=== PATIENT | female | born 1965 | race Caucasian/White ===

== ENCOUNTER 2019-05-25 22:43 | Emergency (ER) | payer OTHER ==
--- OUTSIDE RECORDS SUMMARY | 2019-05-25 22:47 | XMS REPORT | Clinical Summary ---
:1965 Author Organization [facility] Address [address] [place] [address] Care Team Providers Name Role Phone MartinHagenMadelaineLily Primary Care Provider Allergies Active Allergy Reactions Severity Noted Date Comments Adhesive Rash Low 01/10/2019 Hydromorphone (Bulk) Other (See Comments) 04/29/2018 hallucination Doxycycline Hyclate Nausea And Vomiting 04/29/2018 Fluconazole Rash Low 01/10/2019 Cephalexin Nausea And Vomiting 04/29/2018 Medications Medication Sig Dispensed Refills Start End Status Date Date sucralfate Take 1 g by mouth 0 Active (CARAFATE) 1 gram 2 (two) times tablet daily . carvedilol (COREG) Take 6.25 mg by 0 Active 6.25 MG tablet mouth 2 (two) times daily with breakfast and dinner. pantoprazole Take 40 mg by 0 Active (PROTONIX) 40 MG mouth once . tablet levothyroxine Take 125 mcg by 0 Active (SYNTHROID, mouth Every LEVOTHROID) 125 MCG morning on an tablet empty stomach. promethazine Take 12.5 mg by 0 Active (PHENERGAN) 12.5 MG mouth every 12 tablet (twelve) hours as needed for Nausea . ergocalciferol Take 50,000 Units 0 Active (VITAMIN D2) 50,000 by mouth once a unit capsule week. ondansetron Take 4 mg by 0 Active (ZOFRAN-ODT) 4 MG mouth every 8 disintegrating (eight) hours as tablet needed for Nausea. traMADol (ULTRAM) 50 50 mg every 6 0 11/23/19 Active mg tablet (six) hours as 19 needed . DULoxetine Take 60 mg by 0 Active (CYMBALTA) 60 MG mouth nightly. capsule hyoscyamine (LEVBID) Take 0.75 mg by 0 Active 0.375 mg 12 hr mouth 2 (two) tablet times daily 2 tablet of 0.375 twice day. atorvastatin Take 40 mg by 0 Active (LIPITOR) 40 MG mouth daily. tablet ascorbic acid, Take 500 mg by 0 Active vitamin C, (ASCORBIC mouth daily. ACID WITH MARY HIPS) 500 MG tablet nystatin-triamcinolo Apply topically 2 0 Active ne (MYCOLOG II) (two) times daily 100,000-0.1 unit/g-% as needed. cream gabapentin Take 300 mg by 0 Active (NEURONTIN) 300 MG mouth 3 (three) capsule times daily as needed. ferrous sulfate 325 Take 325 mg by 0 Active (65 FE) MG tablet mouth 2 (two) times daily. furosemide (LASIX) Take 1 tablet (20 30 tablet 3 01/28/20 Active 20 MG mg total) by 019 tabletIndications: mouth daily for Cirrhosis of liver 120 days. with ascites, unspecified hepatic cirrhosis type (HCC) spironolactone Take 1 tablet (50 30 tablet 3 01/28/20 Active (ALDACTONE) 50 MG mg total) by 019 tabletIndications: mouth daily for Cirrhosis of liver 120 days. with ascites, unspecified hepatic cirrhosis type (HCC) ursodiol (ACTIGALL) Take 500 mg by 0 Active 500 MG tablet mouth 2 (two) times daily. insulin aspart U-100 Inject 0 Active (NOVOLOG) 100 subcutaneously 3 unit/mL (3 mL) InPn (three) times daily before meals 12 units before meals with sliding scale. pilocarpine Take 5 mg by 0 Active (SALAGEN) 5 MG mouth once. tablet warfarin (COUMADIN) Take 1 tablet (4 30 tablet 0 04/13/20 Active 4 MG tablet mg total) by 19 mouth daily Alternate with 3mg. TOUJEO SOLOSTAR INJECT 20 UNITS 1 02/21/20 Active U-300 INSULIN 300 SUBCUTANEOUSLY 19 unit/mL (1.5 mL) ONCE A DAY InPn syringe warfarin (COUMADIN) Take 3 mg by 0 Active 3 MG tablet mouth daily 3MG on Wednesday, Wednesday, and Wednesday. . sertraline (ZOLOFT) Take 100 mg by 0 Discontinued 100 MG tablet mouth daily. 019 HYOSCYAMINE SULFATE Take 0.375 mcg by 0 Discontinued ORAL mouth as needed . 019 rosuvastatin Take 20 mg by 0 Discontinued (CRESTOR) 20 MG mouth daily. 019 tablet warfarin (COUMADIN) Take 4 mg by 0 Discontinued 4 MG tablet mouth every other 019 day Alternate with 3mg. cholestyramine Take by mouth 3 0 Discontinued (QUESTRAN) 4 gram (three) times 019 powder daily with meals. ondansetron (ZOFRAN) Take 4 mg by 0 Discontinued 4 MG tablet mouth every 8 019 (eight) hours as needed for Nausea. liraglutide (VICTOZA Inject 1.8 Units 0 Discontinued SUBQ) subcutaneously. 019 exenatide (BYETTA Inject 10 Units 0 Discontinued SUBQ) subcutaneously 2 019 (two) times daily as needed . pioglitazone (ACTOS) Take 30 mg by 1 11/06/19 Discontinued 30 MG tablet mouth daily. 19 019 warfarin (COUMADIN) warfarin 3 mg 0 01/12/20 Discontinued 3 MG tablet tablet 18 019 warfarin (COUMADIN) Take 3 mg by 0 Discontinued 3 MG tablet mouth every other 019 day Alternate with 4mg. . albuterol HFA Inhale 1 puff by 0 Discontinued (VENTOLIN HFA) 90 mouth via inhaler 019 mcg/actuation every 6 (six) inhaler hours as needed for Wheezing. benzonatate Take 200 mg by 0 Discontinued (TESSALON) 200 MG mouth 3 (three) 019 capsule times daily as needed for Cough. enoxaparin (LOVENOX) Inject 0 Discontinued 80 mg/0.8 mL Syrg subcutaneously 019 every 12 (twelve) hours. ursodiol (ACTIGALL) Take 2 capsules 120 capsule 4 01/21/20 Discontinued 300 mg (600 mg total) by 19 019 capsuleIndications: mouth 2 (two) Antimitochondrial times daily for antibody positive, 150 days. Cirrhosis of liver without ascites, unspecified hepatic cirrhosis type (HCC) ursodiol (ACTIGALL) Take 1 tablet 180 tablet 3 01/25/20 Discontinued 500 MG (500 mg total) by 019 tabletIndications: mouth 2 (two) Antimitochondrial times daily. antibody positive PEG Use as directed. 1 packet 0 03/09/20 Discontinued 6145-[id number] tamin C (MOVIPREP) 100-7.5-2.691 gram PwPk packetIndications: Screen for colon cancer insulin glargine Inject 40 Units 0 Discontinued U-300 conc (TOUJEO subcutaneously 019 MAX U-300 SOLOSTAR) nightly. 300 unit/mL (3 mL) InPn insulin aspart U-100 Inject 12 Units 0 Discontinued (NOVOLOG) 100 subcutaneously 3 019 unit/mL (3 mL) InPn (three) times daily before meals. pilocarpine Take 5 mg by 0 Discontinued (SALAGEN) 5 MG mouth daily. 019 tablet cholecalciferol, Take 50,000 Units 0 Discontinued vitamin D3, 50,000 by mouth once a 019 unit Tab week. triamcinolone Apply topically 0 Discontinued (KENALOG) 0.1 % as needed to 019 topical cream affected area. . Active Problems Problem Noted Date Obesity, Class III, BMI 40-49.9 (morbid obesity) 04/12/2019 Abdominal pain 04/11/2019 Portal hypertension 11/25/2018 Fatty liver 11/25/2018 Metabolic syndrome 11/25/2018 Abnormal liver enzymes 04/29/2018 Last Assessment & Plan: Known to have abnormal liver enzymes for last 6 months, AST/ ALT > 2 ULN, comprehensive workup was negative for chronic viral hepatitis, autoimmune liver disease and normal ceruloplasmin and iron studies. Abnormal liver enzyme appears to be related to nonalcoholic fatty liver disease and she has multiple risk factors for that Class 3 severe obesity in adult 04/29/2018 Last Assessment & Plan: The patient's current BMI is 40 . Obesity is an established risk factor for vascular complications (ie coronary artery disease, cerebrovascular disease, peripheral vascular disease), osteoarthritis, pulmonary disease, as well as the development of non-alcoholic fatty liver disease and the risk for non- alcoholic steatohepatitis. We have recommended a structured weight loss program (10% body weight initially), along with dietary richar fications and regular exercise for overall good health and to minimize the risk of obesity -related complications. The assessment of a senior analyst market intelligence or case management director may be beneficial. I discussed the following weight loss techniques: (1) Decreasing portion size. (2) Avoid eating in front of television or computers. Eat at a dining room table instead. (3) Start exercising. Start at 15 minutes every day and increase by 2 minutes every 2 weeks. Your goal is to exercise 30-45 minutes most days of the week. Time yourself every time you exercise and do n ot go over your alloted time for the day. You can try fast walking or swimming. Screening for endocrine/metabolic/immunity disorders 04/29/2018 Last Assessment & Plan: Serological tests will be completed to determine the presence of immunity to hepatitis A and B. If found susceptible she will be referred to her primary care provider to consider the administration of t he appropriate vaccines. Cirrhosis of liver without ascites 04/29/2018 Last Assessment & Plan: Compensated cirrhosis, diagnosed by constellation of symptoms/examination/labs/ imaging. There is not any evidence of acute decompensation. This is complicated by portal hypertension manifested by thro mbocytopenia and cirrhosis appears to be related to nonalcoholic fatty liver disease, related to diabetes obesity and hyperlipidemia Screening for cancer 04/29/2018 Last Assessment & Plan: Cirrhosis, regardless of etiology, is a risk factor for hepatocellular carcinoma (HCC), with an annual incidence of 1.5-7%. We recommend surveillance for HCC with abdominal imaging and alphafetoprotein every 6 months. Pulmonary embolism 04/29/2018 Last Assessment & Plan: Patient has known history of deep vein thrombosis and pulmonary embolism , S/p IVC Filter and on warfarin Resolved Problems Problem Noted Date Resolved Date Diabetes mellitus 04/29/2018 08/15/2018 Last Assessment & Plan: Known for fifteen years, on Metformin and Victoza Now only on Victoza , plan to change To Beytta ( exenatide) Diabetes poor control . Discussed the tight control of diabetes. I discussed with her safety use the metformin in presence of compensated cirrhosis and is known to improve the fatty liver Hyperlipidemia 04/29/2018 08/15/2018 Last Assessment & Plan: Lab tests shows hyperlipidemia and hypercholesterolemia. It is safe to use statins in presence of fatty liver disease.Statins use can increase AST/ALT, but significant hepatotoxicity is very rare. Exper t panel of children's zoo caretaker and neon electrician recommend use of statins in patient with elevated liver enzymes and hyperlipidemia. I will recommend to monitor liver panel 6 months, if any time T Bilirubin &gt ; 2.0 suggests significant hepatotoxicity, then statins need to be discontinued. Encounters Date Type Specialty Care Team Description 05/17/2019 Telephone Hepatology Kristyn Haley Procedure L (EGD/Colonoscopy) 05/02/2019 Office Visit Hepatology Ken Thompson, Cirrhosis of liver without ascites, unspecified hepatic cirrhosis type (HCC) (Primary Dx); Screening for cancer Kristyn Waters PA-C 04/10/2019 Emergency General Internal Nicole, Generalized abdominal pain ( Primary Dx); - Medicine Jarvis Bee MD Abdominal pain, unspecified abdominal location; 04/13/2019 Hien Malcolm, Cirrhosis of liver without ascites, unspecified hepatic cirrhosis type (HCC); Metabolic syndrome; Americo, Abnormal liver enzymes; Ashley Cece, Fatty liver; Portal hypertension (HCC); Kidney stone on left side; NAFLD (nonalcoholic fatty liver disease); Obesity, Class III, BMI 40-49.9 (morbid obesity) (HCC); Screening for malignant neoplasm; Immunity status testing 04/10/2019 Orders Only General Internal Medicine 04/10/2019 Travel 04/10/2019 Telephone Hepatology Kristyn Waters Follow-up YUNIER El 03/15/2019 Telephone Hepatology Rene Huitron PA 03/15/2019 Telephone Hepatology Sydnee Stone EGD/Colonoscopy P, RN 03/14/2019 Hospital Encounter Pre-Admission Resource, Oqmt Testing Preadmit Phone 03/14/2019 Abstract Hepatology Rene Huitron PA 03/09/2019 Telephone Hepatology Yola La, Appointment RN 03/09/2019 Orders Only Hepatology Yola La, Screen for colon cancer RN (Primary Dx) 02/20/2019 Abstract Hepatology Nneka Spain 02/17/2019 Telephone Hepatology uLzmaria Solis critical supervisor labor gang 02/01/2019 Telephone Hepatology Kristyn Haley Procedure L (EGD/Colonoscopy (canceled)) 01/27/2019 Abstract Hepatology Rene Huitron PA 01/27/2019 Orders Only Hepatology Rene Huitron Cirrhosis of liver with DOROTA Thomas ascites, unspecified hepatic cirrhosis type (HCC) (Primary Dx) 01/26/2019 Abstract Hepatology Carmita Esparza MA 01/24/2019 Orders Only Hepatology Rene Huitron Antimitochondrial DOROTA Thomas antibody positive (Primary Dx) 01/20/2019 Telephone Hepatology Rene Huitron Liver Biopsy Results DOROTA Thomas 01/20/2019 Telephone Hepatology Rene Huitron Biopsy Results DOROTA Thomas 01/19/2019 Telephone Hepatology Rene Huitron Results DOROTA Thomas 01/18/2019 Telephone Hepatology Rene Huitron Results DOROTA Thomas 01/10/2019 Hospital Encounter Ken Thompson, Abnormal liver enzymes; Cirrhosis of liver without ascites, unspecified hepatic cirrhosis type (HCC) 01/10/2019 Abstract Hepatology Rene Huitron PA 01/05/2019 Telephone Hepatology Sydnee Stone RN 01/04/2019 Hospital Encounter Ken Thompson, Abnormal liver enzymes; Cirrhosis of liver without ascites, unspecified hepatic cirrhosis type (HCC) 01/04/2019 Orders Only Hepatology Rene Huitron Cirrhosis of liver without ascites, unspecified hepatic cirrhosis type (HCC) (Primary Dx); DOROTA Thomas Abnormal liver enzymes 01/04/2019 Documentation Hepatology Yola La RN 12/27/2018 Telephone Hepatology Rene Huitron PA 12/20/2018 Orders Only Hepatology Rene Huitron Cirrhosis of liver without ascites, unspecified hepatic cirrhosis type (HCC) (Primary Dx); DOROTA Thomas Abnormal liver enzymes; Antimitochondrial antibody positive 12/09/2018 Telephone Hepatology Kip Schaffer NP 12/07/2018 Hospital Encounter Radiology Rene Huitron Cirrhosis of liver DOROTA Thomas without ascites, unspecified hepatic cirrhosis type (HCC) 11/24/2018 Office Visit Hepatology Ken Thompson, Cirrhosis of liver without ascites, unspecified hepatic cirrhosis type (HCC) (Primary Dx); Portal hypertension (HCC); Rene Huitron Fatty liver; DOROTA Thomas Metabolic syndrome; Other pulmonary embolism without acute cor pulmonale, unspecified chronicity (HCC) 11/10/2018 Hospital Encounter Radiology Denton Linder MD Pain in both hands 11/10/2018 Hospital Encounter Radiology Denton Linder MD Pain in both hands 11/10/2018 Outside Orders [facility] Linder MD Pain in both hands Scheduling (Primary Dx) 08/11/2018 Abstract Hepatology Sydnee Stone RN 08/10/2018 Abstract Hepatology Sydnee Stone RN 08/09/2018 Office Visit Hepatology Ken Thompson, Abnormal liver enzymes ( Primary Dx); Hyperlipidemia, unspecified hyperlipidemia type; Cirrhosis of liver without ascites, unspecified hepatic cirrhosis type (HCC); Type 2 diabetes mellitus with complication, without long-term current use of insulin (HCC); Class 3 severe obesity due to excess calories without serious comorbidity with body mass index (BMI) of 40.0 to 44.9 in adult (HCC) after 05/24/2018 Family History Medical History Relation Name Comments Cancer Father Diabetes Father Alzheimer's disease Maternal Grandfather Other Maternal Grandfather Stomach tumor Anuerysm Maternal Grandmother Stroke Maternal Grandmother Heart disease Mother Cancer Paternal Grandmother Relation Name Status Comments Father Maternal Grandfather Maternal Grandmother Mother Paternal Grandmother Social History Tobacco Use Types Packs/Day Years Used Date Former Smoker Quit: 11/2014 Smokeless Tobacco: Never Used Tobacco Cessation: Counseling Given: No Comments: quit 2014 Alcohol Use Drinks/Week oz/Week Comments No Alcohol Habits Answer Date Recorded How often do you have a drink containing alcohol? Never 01/04/2019 How many drinks containing alcohol do you have on a typical Not asked day when you are drinking? How often do you have six or more drinks on one occasion? Not asked Sex Assigned at Date Recorded Not on file Job Start Date Occupation Industry Not on file Not on file Not on file Travel History Travel Start Travel End No recent travel history available. Last Filed Vital Signs Vital Sign Reading Time Taken Blood Pressure 119/76 05/02/2019 3:22 PM CDT Pulse 100 05/02/2019 3:22 PM CDT Temperature 36.8 C (98.3 F) 05/02/2019 3:22 PM CDT Respiratory Rate 18 05/02/2019 3:22 PM CDT Oxygen Saturation 97% 05/02/2019 3:22 PM CDT Inhaled Oxygen Concentration - - Weight 123.3 kg (271 lb 14.4 oz) 05/02/2019 3:22 PM CDT Height 170.2 cm (5' 7") 05/02/2019 3:22 PM CDT Body Mass Index 42.59 05/02/2019 3:22 PM CDT Plan of Treatment Date Type Specialty Care Team Description 08/03/2019 Office Visit Hepatology Jay, Ken Mason MD [address] [phone] Resource, [facility] Health Maintenance Due Date Last Done Comments HEMOGLOBIN A1C 07/13/2019 04/12/2019 Procedures Procedure Name Priority Date/Time Associated Diagnosis Comments CBC W/PLT COUNT & Routine 05/02/2019 4:10 Cirrhosis of liver Results for this AUTO DIFFERENTIAL PM CDT without ascites, procedure are in unspecified hepatic the results cirrhosis type (HCC) section. Screening for cancer ALPHA FETOPROTEIN Routine 05/02/2019 4:10 Cirrhosis of liver Results for this (AFP), TUMOR MARKER PM CDT without ascites, procedure are in unspecified hepatic the results cirrhosis type (HCC) section. Screening for cancer PROTHROMBIN TIME/INR Routine 05/02/2019 4:10 Cirrhosis of liver Results for this PM CDT without ascites, procedure are in unspecified hepatic the results cirrhosis type (HCC) section. Screening for cancer CBC W/PLT COUNT & Routine 05/02/2019 4:10 Cirrhosis of liver Results for this AUTO DIFFERENTIAL PM CDT without ascites, procedure are in unspecified hepatic the results cirrhosis type (HCC) section. Screening for cancer HEPATIC FUNCTION Routine 05/02/2019 4:10 Cirrhosis of liver Results for this PANEL PM CDT without ascites, procedure are in unspecified hepatic the results cirrhosis type (HCC) section. Screening for cancer BASIC METABOLIC PANEL Routine 05/02/2019 4:10 Cirrhosis of liver Results for this (7) PM CDT without ascites, procedure are in unspecified hepatic the results cirrhosis type (HCC) section. Screening for cancer REPORT OF PROCEDURE - 04/13/2019 3:10 ENDOSCOPY SCAN PM CDT POCT-GLUCOSE METER Routine 04/13/2019 12:00 Results for this PM CDT procedure are in the results section. POCT-GLUCOSE METER Routine 04/13/2019 7:52 Results for this AM CDT procedure are in the results section. CBC W/PLT COUNT & Routine 04/13/2019 3:32 Results for this AUTO DIFFERENTIAL AM CDT procedure are in the results section. PROTHROMBIN TIME/INR Routine 04/13/2019 3:32 Results for this AM CDT procedure are in the results section. CBC W/PLT COUNT & Routine 04/13/2019 3:32 Results for this AUTO DIFFERENTIAL AM CDT procedure are in the results section. HEPATIC FUNCTION Routine 04/13/2019 3:32 Results for this PANEL AM CDT procedure are in the results section. BASIC METABOLIC PANEL Routine 04/13/2019 3:32 Results for this (7) AM CDT procedure are in the results section. POCT-GLUCOSE METER Routine 04/12/2019 8:55 Results for this PM CDT procedure are in the results section. POCT-GLUCOSE METER Routine 04/12/2019 4:36 Results for this PM CDT procedure are in the results section. POCT-GLUCOSE METER Routine 04/12/2019 12:08 Results for this PM CDT procedure are in the results section. POCT-GLUCOSE METER Routine 04/12/2019 7:13 Results for this AM CDT procedure are in the results section. CBC W/PLT COUNT & Routine 04/12/2019 4:42 Results for this AUTO DIFFERENTIAL AM CDT procedure are in the results section. CBC W/PLT COUNT & Routine 04/12/2019 4:42 Results for this AUTO DIFFERENTIAL AM CDT procedure are in the results section. HEPATIC FUNCTION Routine 04/12/2019 4:42 Results for this PANEL AM CDT procedure are in the results section. BASIC METABOLIC PANEL Routine 04/12/2019 4:42 Results for this (7) AM CDT procedure are in the results section. HEMOGLOBIN A1C Routine 04/12/2019 4:42 Results for this AM CDT procedure are in the results section. PROTHROMBIN TIME/INR Routine 04/12/2019 4:42 Results for this AM CDT procedure are in the results section. POCT-GLUCOSE METER Routine 04/11/2019 10:11 Results for this PM CDT procedure are in the results section. PERIPHERAL VASCULAR 04/11/2019 9:12 REPORT - SCAN PM CDT POCT-GLUCOSE METER Routine 04/11/2019 6:21 Results for this PM CDT procedure are in the results section. RAPID DRUG SCREEN, Routine 04/11/2019 1:14 Results for this URINE PM CDT procedure are in the results section. POCT-GLUCOSE METER Routine 04/11/2019 12:16 Results for this PM CDT procedure are in the results section. POCT-GLUCOSE METER Routine 04/11/2019 7:22 Results for this AM CDT procedure are in the results section. CBC W/PLT COUNT & Routine 04/11/2019 6:23 Results for this AUTO DIFFERENTIAL AM CDT procedure are in the results section. CBC W/PLT COUNT & Routine 04/11/2019 6:23 Results for this AUTO DIFFERENTIAL AM CDT procedure are in the results section. CT ABDOMEN/PELVIS STAT 04/11/2019 2:01 Results for this WITH IV CONTRAST AM CDT procedure are in the results section. VENOUS DOPPLER LEGS Routine 04/11/2019 12:35 Results for this BILATERAL AM CDT procedure are in the results section. ECG 12-LEAD Routine 04/10/2019 10:09 PM CDT Procedure Note - Interface, External Ris In - 04/10/2019 10:17 PM CDT Ventricular Rate 85 BPM Atrial Rate 85 BPM P-R Interval 142 ms QRS Duration 72 ms Q-T Interval 406 ms QTC Calculation(Bazett) 483 ms P [place] 36 degrees R [place] 81 degrees T [place] 63 degrees Normal sinus rhythm Prolonged QT Abnormal ECG No previous ECGs available ECG 12-LEAD STAT 04/10/2019 10:09 Results for this PM CDT procedure are in the results section. XR CHEST 2 VIEWS STAT 04/10/2019 9:42 Results for this PM CDT procedure are in the results section. CBC W/PLT COUNT & AUTO STAT 04/10/2019 9:39 Results for this DIFFERENTIAL PM CDT procedure are in the results section. PT/APTT STAT 04/10/2019 9:39 Results for this PM CDT procedure are in the results section. LIPASE STAT 04/10/2019 9:39 Results for this PM CDT procedure are in the results section. COMPREHENSIVE STAT 04/10/2019 9:39 Results for this METABOLIC PANEL PM CDT procedure are in the results section. CBC W/PLT COUNT & AUTO STAT 04/10/2019 9:39 Results for this DIFFERENTIAL PM CDT procedure are in the results section. URINALYSIS W/ REFLEX STAT 04/10/2019 9:31 Results for this URINE CULTURE PM CDT procedure are in the results section. BASIC METABOLIC PANEL Routine 02/16/2019 12:45 Cirrhosis of liver Results for this (7) PM CDT with ascites, procedure are in unspecified the results hepatic cirrhosis section. type (HCC) US LIVER BIOPSY Routine 01/10/2019 11:25 Abnormal liver Results for this AM CDT enzymes procedure are in Cirrhosis of liver the results without ascites, section. unspecified hepatic cirrhosis type (HCC) TISSUE EXAM AP Routine 01/10/2019 11:20 Results for this AM CDT procedure are in the results section. PLATELET COUNT Routine 01/10/2019 8:40 Results for this AM CDT procedure are in the results section. APTT Routine 01/10/2019 8:40 Results for this AM CDT procedure are in the results section. PROTHROMBIN TIME/INR Routine 01/10/2019 8:40 Results for this AM CDT procedure are in the results section. CBC W/PLT COUNT & AUTO Routine 01/04/2019 9:17 Results for this DIFFERENTIAL AM CDT procedure are in the results section. PROTHROMBIN TIME/INR Routine 01/04/2019 9:17 Results for this AM CDT procedure are in the results section. CBC W/PLT COUNT & AUTO Routine 01/04/2019 9:17 Results for this DIFFERENTIAL AM CDT procedure are in the results section. ACTIN (SMOOTH MUSCLE) Routine 12/20/2018 3:18 Cirrhosis of liver Results for this ANTIBODY, IGG PM CDT without ascites, procedure are in unspecified the results hepatic cirrhosis section. type (HCC) Antimitochondrial antibody positive MITOCHONDRIA M2 Routine 12/20/2018 3:18 Cirrhosis of liver Results for this ANTIBODY (IGG) PM CDT without ascites, procedure are in unspecified the results hepatic cirrhosis section. type (HCC) Antimitochondrial antibody positive ANTI-NUCLEAR ANTIBODY Routine 12/20/2018 3:18 Cirrhosis of liver Results for this (CHRISTIAN) PM CDT without ascites, procedure are in unspecified the results hepatic cirrhosis section. type (HCC) Antimitochondrial antibody positive IMMUNOGLOBULIN G (IGG) Routine 12/20/2018 3:18 Cirrhosis of liver Results for this PM CDT without ascites, procedure are in unspecified the results hepatic cirrhosis section. type (HCC) Antimitochondrial antibody positive US ABDOMEN COMPLETE Routine 12/07/2018 11:10 Cirrhosis of liver Results for this AM DISPLAY DECORATOR without ascites, procedure are in unspecified the results hepatic cirrhosis section. type (HCC) CBC W/PLT COUNT & AUTO Routine 11/24/2018 3:49 Cirrhosis of liver Results for this DIFFERENTIAL PM DISPLAY DECORATOR without ascites, procedure are in unspecified the results hepatic cirrhosis section. 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 type (HCC) PROTHROMBIN TIME/INR Routine 11/24/2018 3:49 Cirrhosis of liver Results for this PM DISPLAY DECORATOR without ascites, procedure are in unspecified the results hepatic cirrhosis section. type (HCC) CBC W/PLT COUNT & AUTO Routine 11/24/2018 3:49 Cirrhosis of liver Results for this DIFFERENTIAL PM DISPLAY DECORATOR without ascites, procedure are in unspecified the results hepatic cirrhosis section. type (HCC) HEPATIC FUNCTION PANEL Routine 11/24/2018 3:49 Cirrhosis of liver Results for this PM DISPLAY DECORATOR without ascites, procedure are in unspecified the results hepatic cirrhosis section. type (HCC) BASIC METABOLIC PANEL Routine 11/24/2018 3:49 Cirrhosis of liver Results for this (7) PM DISPLAY DECORATOR without ascites, procedure are in unspecified the results hepatic cirrhosis section. type (HCC) XR HAND LEFT 2 VIEW Routine 11/10/2018 12:59 Pain in both hands Results for this PM DISPLAY DECORATOR procedure are in the results section. XR HAND RIGHT 2 VIEW Routine 11/10/2018 12:59 Pain in both hands Results for this PM DISPLAY DECORATOR procedure are in the results section. after 05/24/2018 Results CBC with platelet count + automated diff (05/02/2019 4:10 PM CDT)Only the most recent of7 resultswithin the time period is included. WBC 8.8 3.5 - 10.5 K/L [facility] RBC 4.75 3.93 - 5.22 M/L [facility] Hemoglobin 13.4 11.2 - 15.7 GM/DL [facility] Hematocrit 41.1 34.1 - 44.9 % [facility] MCV 86.5 79.4 - 94.8 fL [facility] MCH 28.2 25.6 - 32.2 pg [facility] MCHC 32.6 32.2 - 35.5 GM/DL [facility] RDW 15.2 (H) 11.7 - 14.4 % [facility] Platelets 165 150 - 450 K/CU MM [facility] MPV 11.8 9.4 - 12.3 fL [facility] nRBC 0 0 - 0 /100 WBC [facility] % Neutros 74 % [facility] % Lymphs 17 % [facility] % Monos 6 % [facility] % Eos 3 % [facility] % Baso 1 % [facility] # Neutros 6.44 (H) 1.56 - 6.13 K/L [facility] # Lymphs 1.46 1.18 - 3.74 K/L [facility] # Monos 0.52 (H) 0.24 - 0.36 K/L [facility] # Eos 0.23 0.04 - 0.36 K/L [facility] # Baso 0.06 0.01 - 0.08 K/L [facility] Immature Granulocytes-Relative 1 0 - 1 % [facility] Specimen Blood Performing Organization Address City/[facility]/Zipcode Phone Number [facility] [address] [place] [address] CENTER Alpha fetoprotein (AFP), tumor marker (05/02/2019 4:10 PM CDT)Only the most recent of2 resultswithin the time period is included. Alpha-Fetoprotein 4.3 <10.0 ng/mL [facility] Specimen Blood Performing Organization Address City/[facility]/Zipcode Phone Number [facility] [address] [phone] [place] Pro-time/INR (05/02/2019 4:10 PM CDT)Only the most recent of6 resultswithin the time period is included. Protime 23.8 (H) 11.9 - 14.2 seconds [facility] INR 2.2 <=5.9 [facility] Specimen Blood Narrative Performed At Effective 03/08/2019: PT Reference Range [facility] Change New: 11.9-14.2Previous: 11.7-14.7 RECOMMENDED COUMADIN/WARFARIN INR THERAPY RANGES STANDARD DOSE: 2.0-3.0Includes: PROPHYLAXIS for venous thrombosis, systemic embolization; TREATMENT for venous thrombosis and/or pulmonary embolus. HIGH RISK: Target INR is 2.5-3.5 for patients wiht mechanical heart valves. Performing Organization Address [facility] Centercode Phone Number [address] [address] [place] Hepatic function panel (05/02/2019 4:10 PM CDT)Only the most recent of4 resultswithin the time period is included. Protein, Total 8.4 (H) 6.0 - 8.3 gm/dL [facility] Albumin 3.8 3.5 - 5.0 g/dL [facility] Total Bilirubin 1.2 0.2 - 1.2 mg/dL [facility] Bilirubin, Direct 0.5 0.1 - 0.5 mg/dL [facility] Alkaline Phosphatase 96 40 - 150 U/L [facility] AST 33 5 - 34 U/L [facility] ALT 24 6 - 55 U/L [facility] Specimen Blood Performing Organization Address City/[facility]/Zipcode Phone Number [address] [address] [phone] [place] Basic Metabolic Panel (05/02/2019 4:10 PM CDT)Only the most recent of5 resultswithin the time period is included. Sodium 137 136 - 145 meq/L [facility] Potassium 4.1 3.5 - 5.1 meq/L [facility] Chloride 102 98 - 107 meq/L [facility] CO2 26 22 - 29 meq/L [facility] BUN 9 7 - 21 mg/dL [facility] Creatinine 0.79 0.57 - 1.25 mg/dL [facility] Glucose 251 (H) 70 - 105 mg/dL [facility] Calcium 9.5 8.4 - 10.2 mg/dL [facility] EGFR 76Comment: ESTIMATED GFR IS mL/min/1.73 sq m [facility] NOT ACCURATE CREATININE [facility] CLEARANCE IN PREDICTING GLOMERULAR FILTRATION RATE. ESTIMATED GFR IS NOT APPLICABLE FOR DIALYSIS PATIENTS. Specimen Blood Performing Organization Address City/[facility]/[place] [address] [place] EKG-SCANNED (04/13/2019 3:10 PM CDT) Narrative Performed At POC-Glucose meter (04/13/2019 12:00 PM CDT)Only the most recent of10 resultswithin the time period is included. POC-Glucose Meter 314 (H)Comment: TESTED AT 70 - 110 mg/dL [facility] [address] [place] [id number] Specimen Blood Performing Organization Address City/[facility]/[place] [address] CENTER Hemoglobin A1c (04/12/2019 4:42 AM CDT) Hemoglobin A1C 11.3 (H) 4.3 - 6.1 % [facility] Specimen Blood Narrative Performed At Performing Organization Address City/[facility]/Zipcode Phone Number [facility] [address] [place], [place] [phone] [place] PERIPHERAL VASCULAR REPORT - SCAN (04/11/2019 9:12 PM CDT) Narrative Performed At Rapid drug screen, urine (04/11/2019 1:14 PM CDT) Barbiturate Screen Negative Negative [facility] Benzodiazepine Screen Negative Negative [facility] Cocaine (Metab.) Screen Negative Negative [facility] Methadone Screen Negative Negative [facility] Opiate Screen Positive (A) Negative [facility] Cannabinoid Screen Negative Negative [facility] Amph/Methamph Screen Negative Negative [facility] Phencyclidine Screen Negative Negative [facility] Specimen Urine Narrative Performed At DRUGCUTOFF [facility] CONC. Cocaine 300 ng/mL Dpaubcnfueh01 ng/mL Srjnehdtecbchg310 ng/mL Barbiturate 200 ng/mL Alymlimjvfegi16 ng/mL Estyyc568 ng/mL Methadone 300 ng/mL Amphetamine/ 1000 ng/mL Methamphetamine This assay provides an unconfirmed qualitative test result for the clinical management of patients in emergency situations. Chain of custody not maintained. Some fbrj-zou-ingalht medications, as well as adulterants, may cause inaccurate results. Clinical correlation should be applied. A more comprehensive drug screen or confirmation of a detected drug may be performed upon request. Performing Organization Address [facility]/State/Zipcode Phone Number [facility] [address] [place], [place] [phone] [place] CT abdomen/pelvis with IV contrast (04/11/2019 2:01 AM CDT) Specimen Narrative Performed At FINAL REPORT [facility] EXAM: CT of the abdomen and pelvis, with contrast CLINICAL HISTORY: Abdominal pain. TECHNIQUE: CT of the abdomen and pelvis was performed with intravenous contrast administration.This exam was performed according to our departmental dose optimization program which includes automated exposure control, adjustment of the mA and/or kV according to patient's size and/or use of iterative reconstructive technique. COMPARISON:None FINDINGS: LOWER CHEST: Within normal limits. LIVER: Mild nodular contour of the liver suggesting cirrhosis. Hepatomegaly. BILE DUCTS: Within normal limits. GALL BLADDER: Status post cholecystectomy. PANCREAS: Within normal limits. SPLEEN: Mild splenomegaly. ADRENALS: Within normal limits. KIDNEYS/URETERS: Punctate non obstructing stone in the left lower renal pole. Unremarkable right kidney. No hydroureteronephrosis or perinephric stranding. URINARY BLADDER: Underdistended otherwise unremarkable. REPRODUCTIVE ORGANS: Status post hysterectomy. No adnexal masses. BOWEL/MESENTERY: Status post sigmoid resection. Status post small bowel resection with multiple patulous anastomoses in the right mid to lower abdomen. Tethering of small bowel loops to the lower anterior abdominal wall.Diffuse mesenteric congestion, nonspecific. No bowel obstruction or abnormal wall thickening. Nonvisualization of the appendix but no secondary changes to suggest acute appendicitis. PERITONEUM/RETROPERITONEUM: Trace lower abdominal and pelvic free fluid, nonspecific. No free air or fluid collection. VESSELS: Infrarenal IVC filter. Atherosclerotic calcifications of the aorta and branches. LYMPH NODES: No abdominal or pelvic lymphadenopathy. SOFT TISSUES: Midline abdominal scar. BONES: Lower lumbar facet arthropathy.No suspicious osseous lesions. IMPRESSION: Status post small bowel and sigmoid resection. Status post cholecystectomy and hysterectomy. No bowel obstruction, free air or fluid collection. Punctate nonobstructing left renal stone. No hydroureteronephrosis. Cirrhosis. Hepatosplenomegaly. Signed: Racheal Vuong MD Report Verified Date/Time:04/11/2019 02:31:06 Procedure Note Interface, External Ris In - 04/11/2019 2:33 AM CDT FINAL REPORT EXAM: CT of the abdomen and pelvis, with contrast CLINICAL HISTORY: Abdominal pain. TECHNIQUE: CT of the abdomen and pelvis was performed with intravenous contrast administration. This exam was performed according to our departmental dose optimization program which includes automated exposure control, adjustment of the mA and/or kV according to patient's size and/or use of iterative reconstructive technique. COMPARISON: None FINDINGS: LOWER CHEST: Within normal limits. LIVER: Mild nodular contour of the liver suggesting cirrhosis. Hepatomegaly. BILE DUCTS: Within normal limits. GALL BLADDER: Status post cholecystectomy. PANCREAS: Within normal limits. SPLEEN: Mild splenomegaly. ADRENALS: Within normal limits. KIDNEYS/URETERS: Punctate non obstructing stone in the left lower renal pole. Unremarkable right kidney. No hydroureteronephrosis or perinephric stranding. URINARY BLADDER: Underdistended otherwise unremarkable. REPRODUCTIVE ORGANS: Status post hysterectomy. No adnexal masses. BOWEL/MESENTERY: Status post sigmoid resection. Status post small bowel resection with multiple patulous anastomoses in the right mid to lower abdomen. Tethering of small bowel loops to the lower anterior abdominal wall. Diffuse mesenteric congestion, nonspecific. No bowel obstruction or abnormal wall thickening. Nonvisualization of the appendix but no secondary changes to suggest acute appendicitis. PERITONEUM/RETROPERITONEUM: Trace lower abdominal and pelvic free fluid, nonspecific. No free air or fluid collection. VESSELS: Infrarenal IVC filter. Atherosclerotic calcifications of the aorta and branches. LYMPH NODES: No abdominal or pelvic lymphadenopathy. SOFT TISSUES: Midline abdominal scar. BONES: Lower lumbar facet arthropathy. No suspicious osseous lesions. IMPRESSION: Status post small bowel and sigmoid resection. Status post cholecystectomy and hysterectomy. No bowel obstruction, free air or fluid collection. Punctate nonobstructing left renal stone. No hydroureteronephrosis. Cirrhosis. Hepatosplenomegaly. Signed: Racheal Vuong MD Report Verified Date/Time: 04/11/2019 02:31:06 Performing Organization Address City/State/Zipcode Phone Number [facility] Venous doppler legs bilateral (04/11/2019 12:35 AM CDT) Ejection Fraction [facility] Specimen Impressions Performed At Right Impression [facility] 1. There is no deep venous obstruction in the common femoral, profunda femoral, femoral, popliteal, posterior tibial or peroneal veins where visualized. 2. There is no superficial venous obstruction in the great saphenous vein where visualized. Left Impression 1. There is no deep venous obstruction in the common femoral, profunda femoral, femoral, popliteal, posterior tibial or peroneal veins where visualized. 2. There is no superficial venous obstruction in the great saphenous vein where visualized. Conclusions Summary Venous duplex imaging and compression of the bilateral lower extremities were performed. The veins were technically difficult to visualize due to edema and patient body habitus. The bilateral venous systems were patent and compressible with no evidence of thrombus where visualized. The venous Doppler waveforms were phasic with respiration. Signature Velocities are measured in cm/s ; Diameters are measured in cm Narrative Performed At LAB - Lower Extremities DVT Study [facility] Demographics Patient NameCOLLINS, TAMARADate of Study 04/10/2019 TERENCE Age 54 Visit [id number] GenderFemale Date of 1965 Referring JARVIS NICOLERoom Number [id number] Physician Humane Officer Sonido Phillips MD Physician Procedure Type of Study: Veins: Lower Extremities DVT Study, VENOUS DOPPLER LEG, BILATERAL. Indications for Study:Abdominal pain. Patient Status:TODAY. Study Location:Portable. Technical Quality:Technically Difficult. Risk Factors History of Disease + +----+ + !Diagnosis !Date!Comments ! + +----+ + !History/Risk!!Morbid Obesity, H/o Cirrhosis, H/o PE, H/o DVT! 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 + +----+ + Procedure Note Interface, External Ris In - 04/11/2019 7:00 AM CDT PV LAB - Lower Extremities DVT Study Demographics Patient Name MARLYS THACKER Date of Study 04/10/2019 TERENCE Age 54 Visit Number [id number] Gender Female Accession Number [id number] Date of 1965 Referring JARVIS NICOLE Room Number [id number] Physician Humane Officer Sonido Samaniego Interpreting Kevin Phillips MD Physician Procedure Type of Study: Veins: Lower Extremities DVT Study, VENOUS DOPPLER LEG, BILATERAL. Indications for Study:Abdominal pain. Patient Status:TODAY. Study Location:Portable. Technical Quality:Technically Difficult. Risk Factors History of Disease + +----+ + !Diagnosis !Date!Comments ! + +----+ + !History/Risk ! !Morbid Obesity, H/o Cirrhosis, H/o PE, H/o DVT ! !Factors: ! 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 + +----+ + Impressions Right Impression 1. There is no deep venous obstruction in the common femoral, profunda femoral, femoral, popliteal, posterior tibial or peroneal veins where visualized. 2. There is no superficial venous obstruction in the great saphenous vein where visualized. Left Impression 1. There is no deep venous obstruction in the common femoral, profunda femoral, femoral, popliteal, posterior tibial or peroneal veins where visualized. 2. There is no superficial venous obstruction in the great saphenous vein where visualized. Conclusions Summary Venous duplex imaging and compression of the bilateral lower extremities were performed. The veins were technically difficult to visualize due to edema and patient body habitus. The bilateral venous systems were patent and compressible with no evidence of thrombus where visualized. The venous Doppler waveforms were phasic with respiration. Signature Velocities are measured in cm/s ; Diameters are measured in cm Performing Organization Address City/State/Zipcode Phone Number [facility] ECG 12 lead (04/10/2019 10:09 PM CDT) Specimen Narrative Performed At Ventricular Rate 85 BPM GE MUSE Atrial Rate 85 BPM P-R Interval 142 ms QRS Duration 72 ms Q-T Interval 406 ms QTC Calculation(Bazett) 483 ms P [place] 36 degrees R [place] 81 degrees T [place] 63 degrees Normal sinus rhythm Prolonged QT Abnormal ECG No previous ECGs available Confirmed by MD NAZARIO JOSEPH P ([id number]) on 04/11/2019 6:38:40 AM Procedure Note Interface, External Ris In - 04/11/2019 6:38 AM CDT Ventricular Rate 85 BPM Atrial Rate 85 BPM P-R Interval 142 ms QRS Duration 72 ms Q-T Interval 406 ms QTC Calculation(Bazett) 483 ms P [place] 36 degrees R [place] 81 degrees T [place] 63 degrees Normal sinus rhythm Prolonged QT Abnormal ECG No previous ECGs available Confirmed by MD NAZARIO JOSEPH P ([id number]) on 04/11/2019 6:38:40 AM Performing Organization Address City/State/Zipcode Phone Number GE MUSE XR chest 2 views (04/10/2019 9:42 PM CDT) Specimen Narrative Performed At FINAL REPORT [facility] Exam: Chest x-ray, PA and lateral views Clinical History: Abdominal pain. Comparison: No prior study for comparison. Technique: Frontal and lateral views of the chest were obtained. Findings: The heart is normal in size. The aorta is uncoiled. There is no focal pulmonary consolidation, pleural effusion or pneumothorax. There is no pulmonary edema. The bony thorax is demineralized. The visualized upper abdomen is unremarkable. Impression: No focal pulmonary consolidation. Signed: Racheal Vuong MD Report Verified Date/Time:04/10/2019 22:13:40 Procedure Note Interface, External Ris In - 04/10/2019 10:47 PM CDT FINAL REPORT Exam: Chest x-ray, PA and lateral views Clinical History: Abdominal pain. Comparison: No prior study for comparison. Technique: Frontal and lateral views of the chest were obtained. Findings: The heart is normal in size. The aorta is uncoiled. There is no focal pulmonary consolidation, pleural effusion or pneumothorax. There is no pulmonary edema. The bony thorax is demineralized. The visualized upper abdomen is unremarkable. Impression: No focal pulmonary consolidation. Signed: Racheal Vuong MD Report Verified Date/Time: 04/10/2019 22:13:40 Performing Organization Address City/[facility] [place] [facility] Centercode Phone Number GE RIS PT/aPTT (04/10/2019 9:39 PM CDT) Protime 18.6 (H) 11.9 - 14.2 seconds [facility] INR 1.6 <=5.9 [facility] PTT 37.1 (H) 22.5 - 36.0 seconds [facility] Specimen Blood Narrative Performed At Effective 03/08/2019: PT Reference Range [facility] Change New: 11.9-14.2Previous: 11.7-14.7 RECOMMENDED COUMADIN/WARFARIN INR THERAPY RANGES STANDARD DOSE: 2.0-3.0Includes: PROPHYLAXIS for venous thrombosis, systemic embolization; TREATMENT for venous thrombosis and/or pulmonary embolus. HIGH RISK: Target INR is 2.5-3.5 for patients wiht mechanical heart valves. Performing Organization Address City/[facility] [place] [facility] Centercode Phone Number [address] [address] CENTER Lipase (04/10/2019 9:39 PM CDT) Lipase 17 8 - 78 U/L [facility] Specimen Blood Narrative Performed At Specimen slightly icteric [facility] Performing Organization Address [facility] [place] [facility] Centercode Phone Number [address] [address] [place] Comprehensive metabolic panel (04/10/2019 9:39 PM CDT) Protein, Total 7.5 6.0 - 8.3 gm/dL [facility] Albumin 3.5 3.5 - 5.0 g/dL [facility] Alkaline Phosphatase 99 40 - 150 U/L [facility] Total Bilirubin 1.7 (H) 0.2 - 1.2 mg/dL [facility] Sodium 136 136 - 145 meq/L [facility] Potassium 4.1 3.5 - 5.1 meq/L [facility] Chloride 102 98 - 107 meq/L [facility] CO2 27 22 - 29 meq/L [facility] BUN 10 7 - 21 mg/dL [facility] Creatinine 0.75 0.57 - 1.25 mg/dL [facility] Glucose 232 (H) 70 - 105 mg/dL [facility] Calcium 9.3 8.4 - 10.2 mg/dL [facility] AST 30 5 - 34 U/L [facility] ALT 29 6 - 55 U/L [facility] EGFR 80Comment: ESTIMATED GFR mL/min/1.73 sq m [facility] IS NOT ACCURATE [facility] CREATININE CLEARANCE IN PREDICTING GLOMERULAR FILTRATION RATE. ESTIMATED GFR IS NOT APPLICABLE FOR DIALYSIS PATIENTS. Specimen Blood Narrative Performed At Specimen slightly icteric [facility] Performing Organization Address City/State/Zipcode Phone Number [facility] [address] [place] [address] CENTER Urinalysis w/Microscopic + Reflex to Culture (04/10/2019 9:31 PM CDT) Color, UA Yellow [facility] Clarity, UA Clear [facility] Specific [place], UA 1.034 1.001 - 1.035 [facility] pH, UA 7.0 5.0 - 8.0 [facility] Protein, UA Negative Negative [facility] Glucose, UA >1000 mg/dL (A) Negative [facility] Ketones, UA Negative Negative [facility] Bilirubin, UA Negative Negative [facility] Blood, UA Negative Negative [facility] Nitrite, UA Negative Negative [facility] Leukocytes, UA Negative Negative [facility] Urobilinogen, UA 12.0 (H) 0.2 - 1.0 mg/dL [facility] RBC, UA 1 /HPF [facility] WBC, UA <1 /HPF [facility] Squam Epithel, UA 1 /HPF [facility] Specimen Source [facility] Specimen Urine Performing Organization Address City/State/Zipcode Phone Number [facility] [address] [place] [address] [place] US liver biopsy (01/10/2019 11:25 AM CDT) Specimen Narrative Performed At FINAL REPORT [facility] Ultrasound guided liver biopsy. Clinical History: Elevated LFTs. Comparison Study: Ultrasound dated December 07, 2018. Informed consent was obtained from the patient and the risks of the procedure were explained including bleeding, infection, pneumothorax and visceral injury. Sedation: 1% Xylocaine was used as local analgesia. One mg of Versed and 50 micrograms of fentanyl were administered using the moderate sedation protocol under the supervision of a physician. Moderate Sedation Time: 20 minutes. Technique: Using sterile technique, real-time ultrasound guidance and a 16 gauge core biopsy needle, a two pass core biopsy of the right lobe of the liver was performed. No immediate complications developed. Post procedure ultrasound demonstrates no hematoma. Patient disposition: The patient will be monitored for several hours to ensure that no symptoms develop. Impression: Successful core biopsy of the right lobe of the liver under ultrasound guidance. Signed: Cheo Lr MD Report Verified Date/Time:01/10/2019 11:59:42 Reading Location: [address] Ultrasound Reading Room Procedure Note Interface, External Ris In - 01/10/2019 12:01 PM CDT FINAL REPORT Ultrasound guided liver biopsy. Clinical History: Elevated LFTs. Comparison Study: Ultrasound dated December 07, 2018. Informed consent was obtained from the patient and the risks of the procedure were explained including bleeding, infection, pneumothorax and visceral injury. Sedation: 1% Xylocaine was used as local analgesia. One mg of Versed and 50 micrograms of fentanyl were administered using the moderate sedation protocol under the supervision of a physician. Moderate Sedation Time: 20 minutes. Technique: Using sterile technique, real-time ultrasound guidance and a 16 gauge core biopsy needle, a two pass core biopsy of the right lobe of the liver was performed. No immediate complications developed. Post procedure ultrasound demonstrates no hematoma. Patient disposition: The patient will be monitored for several hours to ensure that no symptoms develop. Impression: Successful core biopsy of the right lobe of the liver under ultrasound guidance. Signed: Cheo Lr MD Report Verified Date/Time: 01/10/2019 11:59:42 Reading Location: [address] Ultrasound Reading Room Performing Organization Address City/State/Zipcode Phone Number [employer] RIS Tissue Exam (01/10/2019 11:20 AM CDT) Case Report Surgical Pathology Report Case: [id number] [facility] Authorizing Provider:Ken Thompson MD Collected: 01/10/2019 [facility] Ordering Location: [facility] Radiology AngioReceived: 01/10/2019 1426 Pathologist: Allie Lu MD Specimen:Liver DIAGNOSIS LIVER, ULTRASOUND-GUIDED NEEDLE BIOPSIES [facility] - CIRRHOSIS [facility] - STEATOSIS (~6%) - RARE BALLOONED HEPATOCYTE - see comment Signing Pathologist Direct Phone Line: [phone] COMMENT The histological features are consistent with cirrhosis secondary to steatohepatitis. No features of autoimmune hepatitis are seen. [facility] The non-alcoholic steatohepatitis (JIMY) activity scoring is performed according to guidelines from non-alcoholic steatohepatitis, clinical research network (Deb, et al. Hepatology 2005. 41:1313-21), at the request of the clinician, for research related purposes. The JIMY score is: Steatosis: Grade 1 + lobular inflammation, grade 0 + hepatocyte ballooning score 1=2/8. The fibrosis score is 4 of 4. CPT Code(s) 61439, 66359 X4 [facility] CLINICAL HISTORY Abnormal liver enzymes [facility] SPECIMEN SOURCE [place] right liver biopsy [facility] GROSS DESCRIPTION The specimen is received in a [facility] formalin-filled container and [facility] labeled with the patient's information and labeled "right [place] liver biopsy" and consists of two [place]-red core biopsies measuring 1.5 x 1.7 cm in length, submitted entirely A1. CG/pl MICROSCOPIC DESCRIPTION Section shows two cores of liver parenchyma with greater than 10 portal tracts and is adequate for evaluation. Trichrome and reticulin stain shows distortion of architecture with bridging fibrosis and i [facility] ncomplete to complete regenerative nodule formation. Foci of pericellular fibrosis is present. The fibrous septa show cholangiolar proliferation and very mild chronic lymphoplasmacytic inflammation. Few [facility] scattered ceroid laden macrophages are present in the fibrous septa. No significant interface hepatitis is noted. The bile ducts appear preserved. No periductal inflammation, granulomas or bile duct sc ars are seen. There is miild steatosis, mixed small droplet and large droplet type, involving almost 6% of liver parenchyma. Rare ballooned hepatocyte with early Malathi Denk hyaline is seen. No signifi cant lobular inflammation is present. Iron stain is negative. No hyaline globules are seen on PAS with diastase stain. Special stains: trichrome, reticulin, iron and PAS with diastase SPECIAL STUDIES The interpretation of this case included the use of immunohistochemistry or special stains. [facility] Immunohistochemistry technical testing was performed at [facility], Pathology Laboratory where it was developed and its performance characteristics were determined. It has not be en cleared or approved by the U.S. Food and Drug Administration. The FDA has determined that such clearance or approval is not necessary. The test is used for clinical purposes. It should not be regarde d as investigational or for research. This laboratory is certified under the Clinical Laboratory Improvement Amendments of 1988 (CLIA-88) as qualified to perform high complexity clinical laboratory testing. Specimen Tissue Performing Organization Address City/State/Zipcode Phone Number [facility] [address] [place] [address] [phone] CENTER aPTT (01/10/2019 8:40 AM CDT) PTT 37.7 (H) 22.5 - 36.0 seconds [facility] Specimen Blood Performing Organization Address [facility] Phone Number [facility] [address] [place] [address] CENTER Platelet count (01/10/2019 8:40 AM CDT) Platelets 113 (L) 150 - 450 K/CU MM [facility] Specimen Blood Performing Organization Address [facility] Phone Number [facility] [address] [place] [address] CENTER Mitochondria M2 Antibody (IgG) (12/20/2018 3:18 PM CDT) Mitochondria M2 Ab 113.7 (H) U [facility] Comment: Reference Range: NEGATIVE:< OR=20.0 EQUIVOCAL: 20.1-24.9 POSITIVE:> OR=25.0 Specimen Blood Narrative Performed At FASTING:NO [facility] FASTING: NO Resulting Agency Comment Performing Organization Information: Site ID: [id number] Name: [employer] [facility], Address: [address] [place] [phone] Director: Ewa Jenkins MD,PhD,EDA Performing Organization Address City/[facility] Phone Number [facility] [address] [place] [address] IDRIS Actin (Smooth Muscle) Antibody, IgG (12/20/2018 3:18 PM CDT) Anti-Smooth Muscle Ab 29 (H) U [facility] Comment: Reference Range: < 20 NEGATIVE > OR=20 POSITIVE Antibodies recognizing actin are the main component of smooth muscle antibodies associated with autoimmune liver disease. Actin antibodies are found in approximately 75% of patients with autoimmune hepatitis (AIH) type 1, approximately 65% of patients with autoimmune cholangitis, approximately 30% of patients with primary biliary cirrhosis, and approximately 2% of healthy people. High values are closely correlated with AIH type 1. Specimen Blood Narrative Performed At FASTING:NO [facility] FASTING: NO Resulting Agency Comment Performing Organization Information: Site ID: [id number] Name: [employer] [facility], Address: [address] [place] [address] Director: Ewa Jenkins MD,PhD,EDA Performing Organization Address [facility] [place], [place] Phone Number [facility] [address] [place] [address] [place] Anti-Nuclear Antibody (CHRISTIAN) (12/20/2018 3:18 PM CDT) CHRISTIAN Screen NEGATIVE NEGATIVE [facility] Comment: CHRISTIAN IFA is a first line screen for detecting the presence of up to approximately 150 autoantibodies in various autoimmune diseases. A negative CHRISTIAN IFA result suggests CHRISTIAN-associated autoimmune diseases are not present at this time. Visit Physician FAQs for interpretation of all antibodies in the [place], prevalence, and association with diseases at http://Lynk.Cojoin/ faq/OWY064 Specimen Blood Narrative Performed At FASTING:NO [facility] FASTING: NO Resulting Agency Comment Performing Organization Information: Site ID: [id number] Name: [employer] [facility] Address: [address] [place] [id number] Director: Dr. Jez Mccrary Performing Organization Address [facility], [place] Phone Number [facility] [address] [place] [address] [place] Immunoglobulin G (IgG) (12/20/2018 3:18 PM CDT) Immunoglobulin G, Qn, Serum 2,018 (H) 694 - 1,618 mg/dL [facility] Specimen Blood Narrative Performed At FASTING:NO [facility] FASTING: NO Resulting Agency Comment Performing Organization Information: Site ID: [id number] Name: [employer] [facility] Address: [address] [place] [phone] Director: Sheila Urbina Performing Organization Address [facility], [place] Phone Number [facility] [address] [place] [address] [place] US abdomen complete (12/07/2018 11:10 AM DISPLAY DECORATOR) Specimen Narrative Performed At FINAL REPORT [facility] Ultrasound of the abdomen. Clinical History: Cirrhosis asess for HCC. Comparison study: MRI dated April 01, 2018. Findings: The liver is coarsened in echotexture with no focal masses. It measures 19.1 cm in length. There is no evidence of intra or extrahepatic biliary dilatation with the common bile duct measuring six mm. The main portal vein diameter is 1.3 cm. The gallbladder has been resected. The spleen measures 16.6 cm and is unremarkable. The pancreas is poorly seen. Trace ascites is present. The right kidney measures 12.1 cm and left kidney measures 12.4 cm, both within normal limits. The proximal aorta and IVC are unremarkable. No pleural effusion is seen. Impression: 1. Nodular, cirrhotic appearing liver with no focal masses. 2. Trace ascites. 3. Pancreas poorly seen. Signed: Cheo Lr MD Report Verified Date/Time:12/07/2018 11:18:11 Reading Location: [address] Radiology Reading Room Procedure Note Interface, External Ris In - 12/07/2018 11:20 AM DISPLAY DECORATOR FINAL REPORT Ultrasound of the abdomen. Clinical History: Cirrhosis asess for HCC. Comparison study: MRI dated April 01, 2018. Findings: The liver is coarsened in echotexture with no focal masses. It measures 19.1 cm in length. There is no evidence of intra or extrahepatic biliary dilatation with the common bile duct measuring six mm. The main portal vein diameter is 1.3 cm. The gallbladder has been resected. The spleen measures 16.6 cm and is unremarkable. The pancreas is poorly seen. Trace ascites is present. The right kidney measures 12.1 cm and left kidney measures 12.4 cm, both within normal limits. The proximal aorta and IVC are unremarkable. No pleural effusion is seen. Impression: 1. Nodular, cirrhotic appearing liver with no focal masses. 2. Trace ascites. 3. Pancreas poorly seen. Signed: Cheo Lr MD Report Verified Date/Time: 12/07/2018 11:18:11 Reading Location: [address] Radiology Reading Room Performing Organization Address City/State/Zipcode Phone Number [facility] XR hand 2 views right (11/10/2018 12:59 PM DISPLAY DECORATOR) Specimen Narrative Performed At FINAL REPORT [facility] Exam:Right and left hand three views each History:Pain Comparison: None. Findings: No fracture or malalignment. Bone demineralization. Narrowing of the interphalangeal joints and first carpometacarpal joint. No abnormal soft tissue calcification or soft tissue defect. Impression: No acute osseous abnormality Osteoarthrosis of the interphalangeal and first carpometacarpal joint Signed: Joshua Noel MD Report Verified Date/Time:11/10/2018 13:22:55 Procedure Note Interface, External Ris In - 11/10/2018 1:25 PM DISPLAY DECORATOR FINAL REPORT Exam: Right and left hand three views each History: Pain Comparison: None. Findings: No fracture or malalignment. Bone demineralization. Narrowing of the interphalangeal joints and first carpometacarpal joint. No abnormal soft tissue calcification or soft tissue defect. Impression: No acute osseous abnormality Osteoarthrosis of the interphalangeal and first carpometacarpal joint Signed: Joshua Noel MD Report Verified Date/Time: 11/10/2018 13:22:55 Performing Organization Address City/State/Zipcode Phone Number [facility] XR hand 2 views left (11/10/2018 12:59 PM DISPLAY DECORATOR) Specimen Narrative Performed At FINAL REPORT [facility] Exam:Right and left hand three views each History:Pain Comparison: None. Findings: No fracture or malalignment. Bone demineralization. Narrowing of the interphalangeal joints and first carpometacarpal joint. No abnormal soft tissue calcification or soft tissue defect. Impression: No acute osseous abnormality Osteoarthrosis of the interphalangeal and first carpometacarpal joint Signed: Joshua Noel MD Report Verified Date/Time:11/10/2018 13:22:55 Procedure Note Interface, External Ris In - 11/10/2018 1:25 PM DISPLAY DECORATOR FINAL REPORT Exam: Right and left hand three views each History: Pain Comparison: None. Findings: No fracture or malalignment. Bone demineralization. Narrowing of the interphalangeal joints and first carpometacarpal joint. No abnormal soft tissue calcification or soft tissue defect. Impression: No acute osseous abnormality Osteoarthrosis of the interphalangeal and first carpometacarpal joint Signed: Joshua Noel MD Report Verified Date/Time: 11/10/2018 13:22:55 Performing Organization Address City/State/Zipcode Phone Number [employer] RIS after 05/24/2018 Insurance Payer Benefit Plan / Group Subscriber ID Type Phone Address If You Can EXCHANGE xxxxxxxxxx Advance Directives For more information, please contact:[address] [phone] Code Status Date Activated Date Inactivated Comments Full Code 04/11/2019 5:29 AM 04/13/2019 5:06 PM This code status was determined by: Patient Full Code 01/10/2019 12:28 PM 01/10/2019 10:24 PM This code status was determined by: Patient
--- OUTSIDE RECORDS SUMMARY | 2019-05-25 23:10 | XMS REPORT | Continuity of Care Document ---
:1965 Author Organization [facility] Care Team Providers Name Role Phone [facility] Unavailable Unavailable Problems Problem Status Onset Classification Date Comments Source Date Reported SMALL BOWEL Active 03/22/20 Condition 05/10/2015 [facility] OBSTRUCTION 15 Group DIVERTICULITIS Active 02/07/20 Condition 05/10/2015 [facility] 15 Group NON-HEALING WOUND Active 02/07/20 Condition 05/10/2015 [facility] 15 Group PERFORATION OF Active 02/06/20 Condition 05/10/2015 Medical INTESTINE 15 Group INCI HERNIA WITHOUT Active 02/02/20 Condition 05/10/2015 Medical MENTION 14 Group OBSTRUCTION/GANGREN E OBESITY Active 02/02/20 Condition 05/10/2015 [facility] 14 Group DEEP VENOUS Active 02/02/20 Condition 05/10/2015 Medical THROMBOPHLEBITIS, 14 Group HX OF PE Active Problem 04/01/2019 [facility] Vitamin D Active Problem 05/25/2019 [facility] deficiency [facility] DVT Active Problem 04/01/2019 [facility] Osteopenia of Active Problem 05/25/2019 [facility] multiple sites [facility] Vertigo Active Problem 05/25/2019 [facility] Anemia, unspecified Active Problem 05/25/2019 [facility] type [facility] Memory loss Active Problem 05/25/2019 [facility] Cirrhosis of liver Active Problem 05/25/2019 [facility] without ascites, Family & unspecified hepatic Internal cirrhosis type [facility] Irritable bowel Active Problem 05/25/2019 [facility] syndrome with both Family & constipation and Internal diarrhea [facility] Gastroparesis Active Problem 05/25/2019 [facility] Chronic Active Problem 05/25/2019 [facility] anticoagulation [facility] Benign essential Active Problem 05/25/2019 [facility] hypertension [facility] Celiac disease Active Problem 05/25/2019 [facility] Primary insomnia Active Problem 05/25/2019 [facility] Abnormal mammogram Active Problem 05/25/2019 [facility] Hepatic steatosis Active Problem 05/25/2019 [facility] TANIA Active Problem 04/01/2019 [facility] Polyarthropathy Active Problem 05/25/2019 [facility] Gastroesophageal Active Problem 05/25/2019 [facility] reflux disease, Family & esophagitis Internal presence not [facility] specified Other and Active Problem 05/25/2019 [facility] unspecified [facility] & hyperlipidemia Internal [facility] Diverticulosis of Active Problem 05/25/2019 [facility] large intestine [facility] & without hemorrhage Internal [facility] Acquired Active Problem 05/25/2019 [facility] hypothyroidism [facility] Other chronic pain Active Problem 05/25/2019 [facility] Low back pain Active Problem 05/25/2019 [facility] Depression, Active Problem 05/25/2019 [facility] unspecified [facility] & depression type Internal [facility] Type 2 diabetes Active Problem 05/25/2019 [facility] mellitus with Family & hyperglycemia, Internal without long-term [facility] current use of insulin Barretts esophagus Active Diagnosis 02/12/2018 [facility] 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 [facility] Fatty liver Active Problem 03/24/2018 [facility] Elevated ALT Active Diagnosis 07/22/2017 [facility] measurement [facility] Screening for Active Diagnosis 01/12/2018 [facility] osteoporosis [facility] Breast cancer Active Diagnosis 07/02/2017 [facility] screening [facility] Cough Active Diagnosis 12/06/2018 [facility] Finger pain, left Active Diagnosis 01/12/2018 [facility] Screening for colon Active Diagnosis 01/12/2018 [facility] cancer [facility] Encntr for general Active Diagnosis 01/21/2019 [facility] adult medical exam Family & w/o abnormal Internal findings [facility] HIV antibody Active Problem 03/24/2018 [facility] positive [facility] Glossitis Active Diagnosis 02/16/2019 [facility] Pain of left hand Active Diagnosis 10/22/2018 [facility] Pain in right hand Active Diagnosis 10/22/2018 [facility] Pain in left knee Active Diagnosis 10/22/2018 [facility] Pain in right knee Active Diagnosis 10/22/2018 [facility] Acute bronchitis, Active Diagnosis 10/22/2018 [facility] unspecified [facility] organism [facility] Rash Active Diagnosis 11/03/2018 [facility] Yeast vaginitis Active Diagnosis 08/20/2018 [facility] Acute URI Active Diagnosis 09/08/2018 [facility] Palpitations Active Diagnosis 07/30/2018 [facility] Other viral warts Active Diagnosis 08/20/2018 [facility] Eczema, unspecified Active Diagnosis 08/20/2018 [facility] type [facility] Sebaceous cyst Active Diagnosis 08/20/2018 [facility] Paronychia of Active Diagnosis 03/02/2019 [facility] finger, unspecified [facility] & laterality Internal [facility] Ingrown fingernail Active Diagnosis 03/02/2019 [facility] Fall Active Diagnosis 10/07/2018 [facility] GERD Active Problem 01/31/2016 [facility] Hypertension Active Problem 02/07/2014 [facility] Hypothyroid Active Problem 01/31/2016 [facility] DVT Active Problem 01/31/2016 [facility] PE Active Problem 01/31/2016 [facility] Vertigo Active Problem 01/31/2016 [facility] Depression Active Problem 01/31/2016 [facility] Diabetes Active Problem 01/31/2016 [facility] Needle stick injury Active Diagnosis 06/18/2013 [facility] of finger [facility] Essential Active Problem 01/31/2016 [facility] hypertension, [facility] benign [facility] Hyperlipidemia Active Problem 01/31/2016 [facility] Smoker Active Problem 03/22/2014 [facility] Ventral hernia Active Diagnosis 02/01/2014 [facility] Tobacco abuse Active Diagnosis 02/07/2014 [facility] counseling [facility] Abdominal hernia Active Diagnosis 02/07/2014 [facility] Tobacco abuse Active Diagnosis 02/07/2014 [facility] Obesity Active Diagnosis 02/07/2014 [facility] Body Mass Index Active Diagnosis 02/07/2014 [facility] 39.0-39.9, adult [facility] SOB Active Diagnosis 03/21/2014 [facility] Throat pain Active Diagnosis 03/21/2014 [facility] Cough Active Diagnosis 03/21/2014 [facility] Acute bronchitis Active Diagnosis 03/21/2014 [facility] Barretts esophagus Active Problem 01/31/2016 [facility] Chronic Active Problem 01/31/2016 [facility] anticoagulation [facility] Diabetes type 2, Active Problem 01/31/2016 [facility] uncontrolled [facility] Vitamin d Active Problem 01/31/2016 [facility] deficiency [facility] Morbid obesity Active Problem 01/31/2016 [facility] Diverticulosis Active Problem 01/31/2016 [facility] Abdominal infection Active Diagnosis 04/19/2015 [facility] Anticoagulant Active Diagnosis 04/19/2015 [facility] long-term use [facility] Fatigue Active Diagnosis 04/19/2015 [facility] Edema Active Diagnosis 05/29/2014 [facility] Candidal dermatitis Active Diagnosis 05/29/2014 [facility] Urinary tract Active Diagnosis 09/18/2014 [facility] infection [facility] Hematuria Active Diagnosis 09/18/2014 [facility] Diverticulitis Active Diagnosis 09/18/2014 [facility] Acute Active Diagnosis 09/18/2014 [facility] diverticulitis [facility] Pelvic pain in Active Diagnosis 09/18/2014 [facility] female [facility] Type 2 diabetes Active Problem 05/19/2016 [facility] mellitus without [facility] complication [facility] Screening for Active Diagnosis 06/18/2016 [facility] breast cancer [facility] Inflamed skin tag Active Diagnosis 06/25/2016 [facility] Encounter for Active Diagnosis 06/25/2016 [facility] screening mammogram [facility] & for breast cancer Internal [facility] Neck pain Active Diagnosis 10/27/2016 [facility] PE (pulmonary Active Problem 05/25/2019 [facility] embolism) [facility] DVT (deep venous Active Problem 05/25/2019 [facility] thrombosis) [facility] Kidney stone Active Problem 05/25/2019 [facility] TANIA (obstructive Active Problem 05/25/2019 [facility] sleep apnea) [facility] Urinary tract Active Diagnosis 04/22/2019 [facility] infection, site not Family & specified Internal [facility] Medications Medication Details Route Status Patient Ordering Order Source Instructions Provider Date Tourichard CarrillooStar as directed Subcutane Active 300 UNIT/ML [place] [facility] ous Subcutaneous 2019 Family & 60 units at Internal night [facility] NovoLog Flexpen as directed Subcutane Active 100 UNIT/ML [place] ous Subcutaneous 2018 Family & 20 units at Internal mealtimes [facility] Lovenox as directed Subcutane Active 80 MG/0.8ML [place] Riggs ous Subcutaneous 2019 Family & twice daily Internal (begin 8 days [facility] prior to procedure, discontinue 24 hours before, then restart day after) Bactrim DS 1 tablet Orally Active 800-160 MG [place] Orally Twice 2019 Family & a day Internal [facility] Bactrim DS 1 tablet Orally Active 800-160 MG [place] Riggs Orally Twice 2019 Family & a day Internal [facility] Nystatin 4 ml Mouth/Thr Active [id number] [place] oat UNIT/ML 2019 Family & Mouth/Throat Internal swish and [facility] spit every 6 hours Benzonatate 1 capsule Orally Active 200 MG Orally [place] Riggs Three times a 2019 Family & day PRN Internal [facility] Lyrica 1 capsule Orally Active 75 mg Orally [place] twice a day 2019 Family & (bid) Internal [facility] Warfarin Sodium 1 tablet Orally Active 4 mg Orally [place] Riggs 2018 Family & fri Internal [facility] Duloxetine HCl 1 capsule Orally Active 30 mg Orally [place] 1 tablet PO 2019 Family & QD x 2 2 Internal tablet PO QD [facility] x 2 weeks Duloxetine HCl 1 capsule Orally Active 60 MG Orally [place] Riggs daily 2018 [facility] Warfarin Sodium 1 tablet Orally Active 4 mg Orally [place] Riggs 2018 Family & fri Internal [facility] Vitamin D 1 capsule Orally Active 67167 UNIT [place] (Ergocalciferol Orally once a 2019 Family & ) week Internal [facility] Triamcinolone 1 Externall Active 0.1 % [place] Acetonide application y Externally 2019 Family & to affected Twice a day Internal area PRN [facility] Vitamin D 1 capsule Orally Active 51736 UNIT [facility] (Ergocalciferol Orally once a 2019 Family & ) week Internal [facility] Nystatin 1 Externall Active 066121 Kit application y UNIT/GM 2019 Family & to affected Externally Internal area Twice a day [facility] PRN Benzonatate 1 capsule Orally Active 200 MG Orally Kit Q8 PRN 2018 [facility] Albuterol 2 puffs as Inhalatio Active 108 (90 Base) Kit Sulfate HFA needed n MCG/ACT 2019 Family & Inhalation Internal every 6 hrs [facility] PRN Lovenox as directed Subcutane Active 80 MG/0.8ML Kit ous Subcutaneous 2018 Family & BID, begin 5 Internal days before [facility] procedure, stop 24 hours before procedure, restart day after procedure Lidocaine 1 Externall Active 3 % Kit application y Externally 2018 Family & to affected Twice a day Internal area as PRN [facility] needed Pioglitazone 1 tablet Orally Active 30 mg Orally Kit HCl Once a day 2018 [facility] Benzonatate 1 capsule Orally Active 200 MG Orally Kit Q8 PRN 2018 [facility] Benzonatate 1 capsule Orally Active 200 MG Orally Kit Q8 PRN 2018 [facility] Levaquin 1 tablet Orally Active 500 mg Orally Kit Once a day 2018 [facility] Fluconazole 1 tablet Orally Active 150 MG Orally Kit QD x 5 days 2018 [facility] Propranolol Hcl Four Times Active [facility]ad[facility] 10 Mg Tablet Daily 2018 [facility] Tramadol Hcl Every [address] [facility] (Ultr[facility]) 50 Mg Hours as 2018 [facility] Tablet [facility] Propranolol Hcl Four Times Active [facility]adine [facility] 10 Mg Tablet Daily 2018 [facility] Tramadol Hcl Every 6 Active Bernadine 07/14/ [facility] ([facility] 50 Mg Hours as 2018 [facility] Tablet [facility] Fluconazole 1 tablet Orally Active 150 MG Orally Kit daily 2018 [facility] Fluconazole 1 tablet Orally Active 150 MG Orally [place] 1 tablet PO 2018 Family & QD x 1, Internal repeat in 2 [facility] days if still symptomatic Farxiga 1 tablet Orally Active 10 mg Orally [place] Riggs Once a day 2018 [facility] [place] as directed Subcutane Active 300 UNIT/ML [place] 06/07/ [facility] ous Subcutaneous 2018 Family & 15 units once Internal nightly [facility] Warfarin Sodium 1 tablet Orally Active 3 MG Orally [place] Once a day as 2018 Family & directed Internal [facility] Warfarin Sodium 1 tablet Orally Active 4 mg Orally [place] qd as 2018 [facility] & directed Internal [facility] Victoza as directed Subcutane Active 18 MG/3ML [place] [facility]gs ous Subcutaneous 2018 Family & 1.2 mg SC Internal daily Med Assoc Duloxetine Hcl Daily Active [facility] St[facility] (Cymbalta) 60 2018 [facility] - Mg Capsule.dr, Patients 60 Mg [facility] Folic Acid 0.[address] [facility] [address] Mg Tablet, 2018 [facility] Glimepiride 4 Daily Active 05/05[facility] Mg Tablet, 4 Mg 2018 [facility] Lisinopril 5 Mg Daily Active [facility] St. Tablet, 5 Mg 2018 [facility] Pravastatin Daily Active [facility] St[facility] Sodium [address] [facility] - Tablet, 20 Mg Patients Oral [facility] Thyroid ([place] Daily Active [facility] St[address] Thyroid) [address] [facility] - Tablet, 90 Mg Patients Oral [facility] Nystatin 1 Externall Active 027683 [place] application y UNIT/GM 2018 Family & to affected Externally Internal area Twice a day, Med Assoc may discontinue 48 hours after rash has resolved [place] 10 MCG as directed Subcutane Active 10 MCG/0.04ML [place] 04/07/ [facility] Pen ous Subcutaneous 2018 Family & twice a day Internal (bid) [facility]oc [place] 5 MCG as directed Subcutane Active 5 MCG/0.02ML [place] 04/07/ [facility] Pen ous Subcutaneous 2018 Family & twice a day Internal (bid) [facility] Victoza as directed Subcutane Active 18 MG/3ML [place] 04/07/ [facility] ous Subcutaneous 2018 Family & 1.2 mg SC Internal daily [facility] Atorvastatin 1 tablet Orally Active 40 mg Orally Kit Calcium Once a day 2018 [facility] Victoza as directed Subcutane Active 18 MG/3ML Kit ous Subcutaneous 2018 Family & 1.2 mg SC Internal daily [facility] Zofran 1-2 tablets Orally Active 4 mg Orally Kit Q8 PRN 2018 [facility] Farxiga 1 tablet Orally Active 5 MG Orally Kit Once a day 2018 [facility] Ergocalciferol 1 capsule Orally Active 34361 UNIT Kit Orally once 2018 Family & per week Internal [facility] Lovenox as directed Subcutane Active 80 MG/0.8ML Kit ous Subcutaneous 2018 Family & inject SC BID Internal 5 days before [facility] surgery and discontinue 24 hours before procedure Jardiance 1 tablet Orally Inactive 10 mg Orally Kit Once a day 2018 [facility] Warfarin Sodium 1 tablet Orally Active 3 MG Orally Ikt Once a day as 2018 [facility] & directed Internal [facility] Tylenol/Codeine 1 tablet as Orally Active 300-30 MG Kit #3 needed Orally Qhs 2018 Family & PRN Internal [facility] Tramadol HCl as directed Orally Active 50 mg Orally Kit Qhs prn 2018 [facility] Victoza as directed Subcutane Active 18 MG/3ML Kit ous Subcutaneous 2017 Family & .6 mg SC Internal daily x 2 Med Assoc wenguyen, increase to 1.2mg SC once daily x 2 weeks Novofine 31 as directed NA Active 31G X 6 MM as Kit directed 2017 Family & daily with Internal use of Med Assoc Victoza Pantoprazole 1 tablet Orally Active 40 MG Orally Kit Sodium Once a day 2017 [facility] Pantoprazole 1 tablet Orally Active 40 MG Orally Kit Sodium Once a day 2017 [facility] Janumet XR 2 tablet Orally Active 50-1000 MG Kit with a meal Orally Once a 2017 Family & day Internal [facility] Warfarin Sodium 1 tablet Orally Active 4 MG Orally Kit Once a day 2016 Family & (MUST SEE Internal DOCTOR BEFORE Med Assoc NEXT REFILL) Warfarin Sodium 1 tablet Orally Active 4 mg Orally Kit [place] QD Sat and 2016 Family & Sun Internal [facility] Rosuvastatin 1 tablet Orally Active 20 mg Orally Kit [facility] Calcium Once a day 2016 [facility] Ergocalciferol 1 capsule Orally Active 67797 UNIT Kit [facility] Orally once 2016 Family & per week Internal [facility] Belsomra 1 tablet at Orally Active 10 mg Orally [place] [facility]gs bedtime as Once a day 2016 Family & needed Internal [facility] Levothyroxine 1 tablet Orally Active 125 MCG [place] Riggs Sodium Orally Once a 2014 Family & day, 30 Internal minutes [facility] before first meal on an empty stomach PHENERGAN take 1-2 Active 12.5MG TABS tablets 2015 Medical (PROMETHAZINE every 6 Group HCL) hours for nausea ZOFRAN 4 MG take 1 Active TABS tablet every 2014 Medical 6 hours as Group needed for nausea TRAMADOL HCL 50 1-2 tablet Active MG TABS twice daily 2015 [facility] [place] Thyroid 1 tablet Orally No Longer 90 MG Orally [place] Active Once a day, 2015 Family & 30 minutes Internal before first [facility] meal on an empty stomach Vitamin D 1 capsule Orally Active 99184 UNIT [place] (Ergocalciferol Orally once a 2015 Family & ) week Internal [facility] Nexium 1 capsule Orally Active 40 mg Orally [place] Riggs Once a day 2014 [facility] MetFORMIN HCl 2 tablets Orally Active 500 mg Orally [place] Riggs ER (MOD) with evening Once a day 2014 Family & meal Internal [facility] Crestor 1 tablet Orally Active 10 mg Orally [place] Riggs Once a day 2015 [facility] Lisinopril 1 tablet Orally Active 5 MG Orally [place] [facility]gs Once a day 2015 [facility] Carvedilol 1 tablet Orally Active 6.25 MG [place] Rig[facility] with food Orally Twice 2015 Family & a day Internal [facility] Coumadin 1 tablet Orally Active 2 MG Orally [facility] Once a day 2014 [facility] Bentyl 1 tablet Orally Active 20 MG Orally [place] Four times a 2013 Family & day Internal [facility] Flagyl as directed Orally Active 500 mg Orally [place] twice a day 2013 Family & (bid) Internal [facility] Cipro 1 tablet Orally Active 500 mg Orally tyn every 12 hrs 2013 [facility] Ultram ER 1 tablet Orally Active 100 mg Orally ~~ Once a day 2013 [facility] Vitamin D 1 capsule Orally Active 04277 UNIT ~~ (Ergocalciferol Orally once 2013 Family & ) per week Internal [facility] Diflucan 1 tablet Orally Active 150 MG Orally Once a day 2013 [facility] Klor-Con M20 1 tablet Orally Active 20 MEQ Orally daily 2013 [facility] Lasix 1 tablet Orally Active 20 mg Orally Once a day 2013 [facility] CIPRO 500 MG one tab PO Active TABS BID for 2013 Medical days Group FLAGYL 500 MG one tab PO Active TABS TID for 2013 Medical days Group CIPRO 500 MG one tab PO Active TABS BID for 2013 Medical days Group Bromfed DM 10 ml as Orally Active 30-2 [place] needed MG/5ML Orally 2013 Family & every 6 hrs Internal [facility]oc BUSPIRONE HCL Active 10 MG TABS 2013 Medical Group LISINOPRIL 5 MG Active TABS 2013 Medical Group VENLAFAXINE HCL Active ER 75 MG 2013 Medical [id number] Group ARMOUR THYROID Active 120 MG TABS 2013 Medical Group GLIMEPIRIDE 4 Active MH MG TABS 2013 Medical Group WARFARIN SODIUM Active 5 MG TABS 2013 Medical Group VYTORIN 10-40 Active MG TABS 2013 Medical Group BUSPIRONE HCL Active MH 10 MG TABS 2013 Medical Group LISINOPRIL 5 MG Active TABS 2013 Medical Group GLIMEPIRIDE 4 Active 02/01/ MH MG TABS 2013 Medical Group WARFARIN SODIUM Active MH 5 MG TABS 2013 Medical Group VYTORIN 10-40 Active MH MG TABS 2013 Medical Group LISINOPRIL 5 MG Active MH TABS 2013 Medical Group GLIMEPIRIDE 4 Active 02/01/ MH MG TABS 2014 Medical Group BUSPIRONE HCL Active MH 10 MG TABS 2013 Medical Group LISINOPRIL 5 MG Active TABS 2013 Medical Group ARMOUR THYROID Active MH 120 MG TABS 2014 Medical Group GLIMEPIRIDE 4 Active MH MG TABS 2014 Medical Group VYTORIN 10-40 Active MH MG TABS 2014 Medical Group BUSPIRONE HCL Active MH 10 MG TABS 2014 Medical Group LISINOPRIL 5 MG Active TABS 2014 Medical Group GLIMEPIRIDE 4 Active MH MG TABS 2013 Medical Group WARFARIN SODIUM Active MH 5 MG TABS 2013 Medical Group BUSPIRONE HCL Active MH 10 MG TABS 2014 Medical Group LISINOPRIL 5 MG Active MH TABS 2014 Medical Group GLIMEPIRIDE 4 Active MH MG TABS 2014 Medical Group WARFARIN SODIUM Active MH 5 MG TABS 2013 Medical Group Hydrocodone-Chirag 1 tablet as Orally Active 5-325 MG [place] taminophen needed Orally every 2013 Family & 6 hrs Internal [facility] Vitamin D 1 capsule Orally Active 64491 UNIT [facility]ae [facility] (Ergocalciferol Orally once 2012 Family & ) per week Internal Med [facility]oc Vytorin 1 tablet Orally Active 10-40 MG Denae [facility] Orally Once a 2012 Family & day Internal [facility] Bactrim DS 1 tablet Orally Active 800-160 MG Stephanie [facility] Orally Twice 2012 Family & a day Internal [facility] Effexor as directed Orally No Longer 75 mg Orally Denae [facility] Active 1 tabet daily 2013 Family & for 7days, Internal then 2 po Med Assoc daily BusPIRone HCl 1 tablet Orally Active 10 mg Orally Stephanie 08/02/ [facility] Twice a day 2013 Family & as needed Internal [facility] Enoxaparin Daily Active 08/25/ [facility] Sodium 2011 [facility] - (Lovenox) 120 Patients Mg/0.8 Ml Medical Disp.syrin, 40 Center Mg Sub-Q Cavedilol , Active 03/14/ [facility] 2012 [facility] Pantoprazole 1 packet Orally Active 40 MG Orally [facility] [place] [facility] Sodium Once a day [facility] Metformin HCl TAKE 2 NA Active 500 MG Kit [facility] TABLETS BY Family & MOUTH TWICE Internal A DAY WITH Med Assoc MEALS Carvedilol take 1 NA Active 6.25 MG Kit [place] tablet by Family & mouth twice Internal daily with Med Assoc food Rosuvastatin 1 tablet Orally Active 20 MG Orally Kit [place] Calcium Once a day [facility] Levothyroxine TAKE 1 NA Active 125 MCG Kit [facility] Sodium TABLET BY Family & MOUTH ONCE A Internal DAY ON AN Med Assoc EMPTY STOMACH 30 MINUTES BEFORE FIRST MEAL Warfarin Sodium take 1 NA Active 4 Kit [facility] tablet by Family & mouth once a Internal day as Med Assoc directed Warfarin Sodium 1 tablet PO Active 5 MG PO 3 Kit [facility] time a week [facility] Venlafaxine HCl Take 1 NA Active 100 MG Kit [facility] tablet by Family & mouth twice Internal a day Med Assoc Lisinopril TAKE 1 NA Active 5 MG Kit [facility] TABLET BY Family & MOUTH EVERY Internal DAY [facility] Warfarin Sodium 1 tablet PO Active 5 MG PO 3 Kit [facility] time a week [facility] Sertraline HCl TAKE 1 NA Active 100 MG Kit [facility] TABLET BY Family & MOUTH EVERY Internal DAY [facility] Flexeril TAKE 1/2 TO NA Active 10 MG Kit [facility] 1 TABLET BY Family & MOUTH EVERY Internal 8 HOURS Med Assoc NEEDED [id number] not defined Orally Active 1 MG Orally Kit [facility] Carvedilol Take 1 NA Active 6.25 MG Kit [facility] tablet by Family & mouth twice Internal a day with Med Assoc food Warfarin Sodium TAKE 1 NA Active 4 MG Kit Riggs TABLET BY Family & MOUTH ONCE A Internal DAY Med Assoc DIRECTED Levothyroxine take 1 NA Active 125 MCG Kit Riggs Sodium tablet by Family & mouth daily Internal on an empty Med Assoc stomach 1/2 hour before 1st meal of the day Pantoprazole Take 1 NA Active 40 MG Kit Riggs Sodium tablet by Family & mouth once a Internal day Med Assoc Sertraline HCl 1 tablet Orally Active 100 MG Orally Kit Riggs Once a day Family & Internal [facility] Protonix TAKE 1 NA Active 40 MG Kit Riggs TABLET BY Family & MOUTH EVERY Internal DAY Med Assoc [id number] not defined Orally Active 1 MG Orally Kit Riggs [facility] Polyethylene EVERY DAY Oral Active - Oral Kit Riggs Glycol 3350 DIRECTED Family & Internal [facility] Sucralfate 1 tablet at Orally Active 1 GM Orally Kit Riggs bedtime on Twice a day Family & an empty Internal stomach Med Assoc before meals Pantoprazole 1 tablet Orally Active 40 mg Orally Kit Riggs Sodium twice a day Family & (bid) Internal Med [facility] Atorvastatin 1 tablet Orally Active 40 MG Orally Kit Riggs Calcium Once a day Family & Internal [facility] Nystatin 1 Externall Active Kit Riggs application y UNIT/GM Family & to affected Externally Internal area Twice a day, Med Assoc may discontinue 48 hours after rash has resolved ProAir HFA 2 puffs as Inhalatio Active 108 (90 Base) Kit Riggs needed n MCG/ACT Family & Inhalation Internal every 6 hrs Med Assoc Hyoscyamine 2 tablet as Orally Active 0.375 MG Kit Riggs Sulfate needed Orally every Family & 12 hrs Internal Med [facility] Tramadol HCl as directed Q8 PRN Active 50 mg Q8 PRN Kit Riggs [facility] Gabapentin 1 capsule Orally Active 300 MG Orally Kit Riggs TID [facility] Pioglitazone 1 tablet Orally Active 30 mg Orally Kit Riggs HCl Once a day [facility] Internal [facility] Promethazine 1 tablet Orally Active 12.5 MG Kit Riggs HCl Orally every Family & 6 hrs Internal Med [facility] Warfarin Sodium 1 tablet Orally Active 3 MG Orally Kit Riggs Once a day as Family & directed Internal Med [facility] Benzonatate 1 capsule Orally Active 200 MG Orally Kit Riggs Three times a Family & day Internal Med [facility] Ferrous Sulfate 1 tablet Orally Active 325 (65 Fe) Kit Riggs MG Orally Family & twice a day Internal (bid) Med Assoc Ondansetron 1 tablet on Orally Active 4 MG Orally Kit Riggs the tongue every 8 hrs Family & and allow to Internal dissolve Med [facility] Vitamin C as directed Orally Active 500 MG Orally Kit Riggs [facility] Albuterol 2 puffs as Inhalatio Active 108 (90 Base) Kit Riggs Sulfate HFA needed n MCG/ACT Family & Inhalation Internal every 6 hrs Med [facility]oc PRN Toujeo SoloStar as directed Subcutane Active 300 UNIT/ML Kit Riggs ous Subcutaneous Family & 50 units once Internal nightly Med Assoc Carvedilol take 1 NA Active 6.25 MG Kit Riggs tablet by Family & mouth twice Internal daily with Med [facility]oc food Ursodiol 1 tablet by mouth Active 500 mg by Kit Riggs mouth twice a Family & day (bid) Internal Med [facility] Spironolactone 1 tablet by mouth Active 50 mg by Kit Riggs mouth once Family & every morning Internal [facility] Gabapentin 1 capsule Orally Active 300 MG Orally Kit Riggs TID [facility] Pioglitazone 1 tablet Orally Active 30 mg Orally Kit Riggs HCl Once a day Family & Internal [facility] Furosemide 1 tablet by mouth Active 20 mg by Kit Riggs mouth once Family & every morning Internal Med [facility] Sertraline HCl TAKE 1 NA Active 100 MG Kit Riggs TABLET BY Family & MOUTH EVERY Internal DAY Med [facility] Rosuvastatin 1 tablet Orally Active 20 MG Orally Kit Riggs Calcium Once a day Family & Internal [facility] Atorvastatin 1 tablet Orally Active 40 mg Orally Kit Riggs Calcium Once a day Family & Internal [facility] Cholestyramine 1 packet Orally Active 4 GM Orally Kit Riggs mixed with Twice a day Family & water or Internal non-carbonat Med Assoc ed drink Dicyclomine HCl 1 ml Orally Active 10 mg Orally Kit Riggs Four times a Family & day Internal [facility] Rosuvastatin 1 tablet Orally Active 20 mg Orally Kit Riggs Calcium Once a day [facility] Internal [facility] Ferrous Sulfate 1 tablet Orally Active 325 (65 Fe) Kit Riggs MG Orally Family & twice a day Internal (bid) Med [facility] Dicyclomine HCl 1 ml Orally Active 10 mg Orally Kit Riggs Four times a Family & day Internal [facility] Hyoscyamine 1 tablet as Orally Active 0.125 MG Kit Riggs Sulfate needed Orally every Family & 4 hrs Internal [facility] Coumadin 1 tablet Orally Active 5 MG Orally Kit Riggs Once a day [facility] & [facility] Cholestyramine 1 scoop Orally Active 4 GM/DOSE Kit Riggs Orally daily Family [facility] Internal [facility] Victoza 1.8 mg Subcutane Active 18 MG/3ML Kit Riggs ous Subcutaneous Family & once a day Internal Med [facility] Pantoprazole 1 tablet Orally Active 40 mg Orally Kit Riggs Sodium twice a day Family & (bid) Internal [facility] Hyoscyamine 1 tablet as Orally Active 0.125 MG Kit Riggs Sulfate needed Orally every Family & 4 hrs before Internal meals Med [facility] [place] 5 MCG as directed Subcutane Active 5 MCG/0.02ML Kit Riggs Pen ous Subcutaneous Family & twice a day Internal (bid) Med [facility] Hyoscyamine 1 tablet Orally Active 0.375 MG Kit Riggs Sulfate CR Orally every Family & 12 hrs Internal [facility] Warfarin Sodium 1 tablet Orally Active 3 MG Orally Kit Riggs sun, tues, Family & thurs, sat Internal [facility] Hyoscyamine 1 tablet as Orally Active 0.125 MG Kit Oneil Sulfate needed Orally every Family & 4 hrs before Internal meals Med [facility] Nystatin & not defined Externall Active [id number] Kit Riggs Exfoliating y UNIT/GM Family & Agent Externally Internal Med [facility] Iron 1 tablet Orally Active 325 (65 Fe) Kit Riggs MG Orally Family & Once a day Internal [facility] Cholestyramine 1 scoop Orally Active 4 GM/DOSE Kit Riggs Orally daily [facility] Internal [facility] Farxiga 1 tablet Orally Active 10 mg Orally Kit Riggs Once a day Family & Internal [facility] ProAir HFA 2 puffs as Inhalatio Active 108 (90 Base) Kit Riggs needed n MCG/ACT Family & Inhalation Internal every 6 hrs Med [facility] Toujeo SoloStar as directed Subcutane Active 300 UNIT/ML Kit Riggs ous Subcutaneous Family & 43 units once Internal nightly Med [facility] Ursodiol 1 tablet by mouth Active 500 mg by Kit Rigsg mouth twice a Family & day (bid) Internal [facility] Spironolactone 1 tablet by mouth Active 50 mg by Kit Riggs mouth once Family & every morning Internal [facility] Furosemide 1 tablet by mouth Active 20 mg by Kit Riggs mouth once Family & every morning Internal [facility] Pravastatin 1 tablet Orally No Longer 40 MG Orally Denae Riggs Sodium Active Once a day Family & Internal [facility] Venlafaxine HCl 2 tablets Orally Active 75 mg Orally ~~Kantara Riggs daily [facility] Triamcinolone 1 Externall Active 0.1 % Kit Riggs Acetonide application y Externally Family & to affected Twice a day Internal area PRN Med [facility] Nystatin 1 Externall Active [id number] Kit Riggs application y UNIT/GM Family & to affected Externally Internal area Twice a day Med [facility] PRN Lisinopril 1 tablet orally Active 5 MG orally Oneil Riggs once a day [facility] Internal [facility] [place] Thyroid 1 tablet Orally Active 120 MG Orally ~~Nilda Oneil Once a day [facility] Folic Acid 1 tablet Orally Active 800 MCG Nilda Riggs Orally Once a Family & day Internal [facility] Warfarin Sodium 1 tablet Orally Active 4 mg Orally Nilda Riggs daily [facility] NO OTC meds Unknown NA Active Gladfangeles Riggs taken [facility] Glimepiride TAKE 1 NA Active 4 MG Leonardoroselyn Riggs TABLET BY Family & MOUTH EVERY Internal DAY Med [facility] Vytorin TAKE 1 NA Active 10-40 MG Linda Riggs TABLET BY Family & MOUTH EVERY Internal DAY Med [facility] BusPIRone HCl TAKE 1 NA Active 10 MG Nilda Riggs TABLET BY Family & MOUTH TWICE Internal A DAY Med Ass[facility] NEEDED IBU-200 1 tablet as Orally Active 200 MG Orally Leonardoroselyn Riggs needed every 6 hrs Family & Internal [facility] NO OTC meds Unknown NA Active ~~Nilda Riggs taken [facility] [place] Thyroid 1 tablet Orally No Longer 120 MG Orally Linda Riggs Active Once a day [facility] Warfarin Sodium 1 tablet Orally Active 5 MG Orally Kit Riggs daily [facility] Glimepiride 1 tablet Orally Active 4 mg Orally Linda Riggs Once a day Family & (must see Internal doctor before Med Assoc next refill) Zofran 2 tablets Orally Active 4 MG Orally Linda Riggs Once a day [facility] Venlafaxine HCl 2 tablets Orally Active 75 mg Orally Linda Riggs daily [facility] Vytorin 1 tablet Orally Active 10-40 MG ~~Nilda Riggs Orally Once a Family & day Internal [facility] Gold Levin Unknown Externall Active 5-0.15 % ~~Jodyra Riggs Medicated Body y Externally [facility] Advil 1 tablet as Orally Active 200 MG Orally ~~Nidla Riggs needed every 6 hrs [facility] & [facility] Lasix TAKE 1 NA Active 20 MG ~~Nilda Riggs TABLET BY Family & MOUTH EVERY Internal DAY [facility] Venlafaxine HCl 2 tablets Orally Active 75 mg Orally Kit Riggs daily [facility] Venlafaxine HCl 2 tablets Orally Active 100 MG Orally Kit Riggs daily [facility] Lisinopril TAKE 1 NA Active 5 MG Kit Riggs TABLET BY Family & MOUTH EVERY Internal DAY Med [facility] Metformin HCl TAKE 2 NA No Longer 500 MG Kit Riggs TABLETS BY Active Family & MOUTH TWICE Internal A DAY WITH Med Assoc MEALS Rosuvastatin 1 tablet Orally Active 20 mg Orally Kit Riggs Calcium Once a day [facility] & Internal [facility] Triamcinolone 1 Externall Active 0.1 % Kit Riggs Acetonide application y Externally Family & to affected Twice a day Internal area PRN Med [facility] Car[facility]ilol Twice [facility]ine [facility] ([facility] 4 [facility] Exenatide Twice A Day Active [facility] ([place]) 5 [facility] - Mcg/0.02 Ml Patients Pen.[facility] Hyoscyamine Four Times Active [facility] Sulfate Daily [facility] - (Levsin) 0.125 Patients Mg Tablet [facility] Levothyroxine Today At Active [facility] Sodium 6:30AM [facility] - (Synthroid) 125 Patients [facility] Lovenox Twice A Day Active [facility] Meclizine Hcl As Needed Active [facility] 12.5 Mg Tablet [facility] Ondansetron As Needed Active [facility] (Zofran Odt) 4 [facility] - Mg Tab.[facility] Pantoprazole Active [facility] Sodium [facility] - (Protonix) 40 Patients Mg Tablet.[facility] Promethazine As Needed Active [facility] Hcl 25 Mg [facility] Rosuvastatin Daily Active [facility] Calcium [facility] - (Crestor) 20 Mg Patients Tablet [facility] Sertraline Hcl Bedtime Active [facility] 100 Mg Tablet [facility] Sucralfate 1 Gm Twice A Day Active [facility] Tablet [facility] Warfarin Sodium Daily Active [facility] 2 Mg Tablet [facility] Cholestyramine Daily Active [facility] (With Sugar) [facility] - ([facility] Patients M[facility]) 4 [facility] Exenatide Twice A Day Active [facility] ([place]) 5 [facility] - Mcg/0.02 Ml Patients Pen.[facility] Hyoscyamine Four Times Active [facility] Sulfate Daily [facility] - (Levsin) 0.125 Patients Mg Tablet [facility] Levothyroxine Today At Active [facility] Sodium 6:30AM [facility] - (Synthroid) 125 Patients Mcg Tab [facility] Ondansetron As Needed Active [facility] (Zofran Odt) 4 [facility] - Mg Tab.rapdis Patients [facility] Promethazine As Needed Active [facility] Hcl 25 Mg [facility] - Tablet Patients [facility] Rosuvastatin Daily Active [facility] Calcium [facility] - (Crestor) 20 Mg Patients Tablet [facility] Sertraline Hcl Bedtime Active [facility] 100 Mg Tablet [facility] Sucralfate 1 Gm Twice A Day Active [facility] Tablet [facility] Warfarin Sodium Daily Active [facility] 2 Mg Tablet [facility] Allergies, Adverse Reactions, Alerts Substance Category Reaction Severity Reaction Status Date Comments Source type Reported KEFLEX Drug KEFLEX MH allergy 4 [facility] DORX Drug DORX MH allergy 4 [facility] Group Cephalexin Mild Allergy to Active [facility] Substance 8 [facility] Doxycycline Mild Allergy to Active [facility] Substance 8 [facility] Hydromorphon HALLUCINATI Mild Allergy to Active [facility] e ONS Substance 8 [facility] Adhesive Adverse Info Not Adverse Active Riggs Bandages Reaction Available Reaction 9 [facility] Keflex Adverse abdomen Adverse Active Riggs Reaction pain Reaction 9 [facility] Doxycycline Adverse abdomen Adverse Active Riggs Hyclate Reaction pain Reaction 9 [facility] Dilaudid Adverse hallucinati Adverse Active Riggs Reaction ons Reaction 9 [facility] Bactrim Adverse BLEEDING Adverse Active Riggs Reaction Reaction 9 [facility] Immunizations Immunization Date Given Site Status Last Comments Source Updated TDAP VACCINE >11 06/13/2013 completed [facility] Results Order Name Results Value Reference Date Interpretation Comments Source Range Blood 7.35 4.8 - 10.8 07/[address] [facility] leukocytes [facility] - automated count Patients (number/volume) [facility] Blood 5.00 3.6 - 5.1 07/[address] [facility] erythrocytes [facility] - automated count Patients (number/volume) [facility] Blood 13.2 12.0 - 07/[address] [facility] [address] hemoglobin 16.0 [facility] - measurement Patients (moles/volume) [facility] Automated blood 42.6 34.2 - 07/[address] [facility] [address] hematocrit 44.1 [facility] - (volume Patients fraction) Medical Center Automated 85.2 81 - 99 07/[address] [facility] [address] erythrocyte [facility] - mean Patients corpuscular Medical volume Center Automated 26.4 28 - 32 07/[address] [facility] [address] erythrocyte [facility] - mean Patients corpuscular [facility] hemoglobin Center (mass per erythrocyte) Automated 31.0 31 - 35 07/[address] [facility] [address] erythrocyte [facility] - mean Patients corpuscular [facility] hemoglobin Center concentration measurement (mass/volume) RDW BldCo-Rto 18.6 11.7 - 07/[address] [facility] [address] 14.4 /2017 [facility] - Patients [facility] Center Automated blood 160 140 - 360 07/[address] [facility] [address] platelet count [facility] - (count/volume) Patients [facility] Automated blood 72.5 38.7 - 07/14 [facility]. segmented 80.0 [facility] - neutrophil Patients count as Medical percentage of Center total leukocytes Automated blood 17.7 18.0 - 07/[address] [facility] [address] lymphocyte 39.1 [facility] - count as Patients percentage ot Medical total Center leukocytes Automated blood 6.1 4.4 - 11.3 07/14 [facility]. monocyte count [facility] - as percentage Patients of total [facility] leukocytes Center Automated blood 2.4 0.0 - 6.0 07/14 [facility]. eosinophil [facility] - count as Patients percentage of Medical total Center leukocytes Automated blood 1.0 0.0 - 1.0 07/14 [facility]. basophil count [facility] - as percentage Patients of total [facility] leukocytes Center IM GRANULOCYTES 0.3 0.0 - 1.0 07/[address] [facility] [address] % [facility] - Patients Medical Center Automated blood 5.3 2.1 - 6.9 07/[address] [facility] [address] neutrophil /2017 [facility] - count Patients Medical Center Blood 1.3 1.0 - 3.2 07/[address] [facility] [address] lymphocytes [facility] - count Patients (number/volume) Medical Center Blood monocytes 0.5 0.2 - 0.8 07/[address] [facility] [address] automated count [facility] - (number/volume) Patients Medical Center Automated blood 0.2 0.0 - 0.4 07/[address] [facility] eosinophil /2017 [facility] - count Patients [facility] Center Automated blood 0.1 0.0 - 0.1 07/[address] basophil count /2017 [facility] - (count/volume) Patients Medical Center Absolute 0.02 0 - 0.1 07/[address] Immature [facility] - Granulocyte Patients (auto Medical Center Prothrombin 26.1 11.9 - 07/[address] time (PT) in 14.5 [facility] - platelet poor Patients plasma by Medical coagulation Center assay INR in Platelet 2.20 07/[address] poor plasma by [facility] - Coagulation Patients assay [facility] Activated 44.8 23.8 - 07/[address] partial 35.5 [facility] - thromboplastin Patients time (aPTT) in [facility] platelet poor Center plasma bycoagulation assay Urine color YELLOW YELLOW 07/[address] [facility] determination [facility] - Patients [facility] Center Urine clarity SL CLOUDY CLEAR 07/[address] [facility] [facility] - Patients [facility] Center Specific 1.025 1.010 - 07/[address] gravity of 1.025 [facility] - Urine by Test Patients strip [facility] Center Urine pH 6 5 - 7 07/[address] measurement by [facility] - automated test Patients strip [facility] Center Urine leukocyte NEGATIVE NEGATIVE 07/[address] esterase [facility] - detection by Patients dipstick [facility] Urine nitrite NEGATIVE NEGATIVE 07/[address] detection [facility] - Patients [facility] Center Urine protein NEGATIVE NEGATIVE 07/[address] measurement by [facility] - test strip Patients (mass/volume) [facility] Urine glucose 3+ NEGATIVE 07/[address] detection [facility] - Patients [facility] Center Urine ketones TRACE NEGATIVE 07/[address] detection by [facility] - automated test Patients strip [facility] Center Urine 0.2 0.2 - 1 07/[address] urobilinogen [facility] - measurement by Patients test strip Medical (mass/volume) Center Urine total NEGATIVE NEGATIVE 07/[address] bilirubin [facility] - measurement Patients (mass/volume) [facility] Center Urine TRACE NEGATIVE 07/[address] erythrocytes [facility] - detection Patients Medical Center Automated urine 0-5 0 - 5 07/[address] sediment [facility] - leukocyte count Patients by microscopy [facility] (number/high Center power field) Erythrocytes 6-10 0 - 5 07/[address] detection in [facility] - urine sediment Patients by light Medical microscopy Center Bacteria FEW NONE 07/[address] detection in [facility] - urine sediment Patients by light Medical microscopy Center Epithelial FEW NONE 07/[address] cells detection /2017 [facility] - in urine Patients sediment by Medical light Center microscopy Amorphous FEW FEW 07/[address] sediment [facility] - detection in Patients urine sediment Medical by light Center microscopy Mucus detection FEW RARE 07/[address] in urine /2017 [facility] - sediment by Patients light Medical microscopy Center Serum or plasma 140 136 - 145 07/[address] sodium [facility] - measurement Patients (moles/volume) [facility] Serum or plasma 4.3 3.5 - 5.1 07/[address] potassium [facility] - measurement Patients (moles/volume) [facility] Serum or plasma 105 98 - 107 07/[address] chloride [facility] - measurement Patients (moles/volume) [facility] Serum or plasma 23 22 - 29 07/[address] carbon dioxide, [facility] - total Patients measurement Medical (moles/volume) [place] Serum or plasma 16.3 8 - 16 07/[address] anion gap [facility] - Patients [facility] Center Serum or plasma 12 7 - 26 07/[address] urea nitrogen [facility] - measurement Patients (mass/volume) [facility] Serum or plasma 0.90 0.57 - 07/[address] creatinine 1.11 [facility] - measurement Patients (mass/volume) [facility] Serum or plasma 13 6 - 25 07/[address] urea /2017 [facility] - nitrogen/creati Patients nine mass ratio [facility] Estimated > 60 60 07/[address] glomerular /2017 [facility] - filtration rate Patients (GFR) Medical determination Center Glucose 184 74 - 118 07/[address] measurement /2017 [facility] - Patients Medical Center Serum or plasma 10.2 8.4 - 10.2 07/[address] calcium [facility] - measurement Patients (mass/volume) [facility] Serum or plasma 1.8 1.3 - 2.1 07/[address] magnesium [facility] - measurement Patients (mass/volume) [facility] Center Serum or plasma 1.5 0.2 - 1.2 07/[address] total bilirubin [facility] - measurement Patients (mass/volume) Medical Center Aspartate Amino 63 5 - 34 07/[address] [facility] [address] Transf /2017 [facility] - (AST/SGOT) Patients Medical Center Serum or plasma 38 0 - 55 07/[address] [facility] [address] alanine [facility] - aminotransferas Patients e measurement Medical (enzymatic Center activity/volume ) Serum or plasma 8.7 6.5 - 8.1 07/[address] [facility] [address] protein /2017 [facility] - measurement Patients (mass/volume) Medical Center Serum or plasma 3.8 3.5 - 5.0 07/[address] [facility] [address] albumin /2017 [facility] - measurement Patients (mass/volume) Medical Center Plasma globulin 4.9 2.3 - 3.5 07/[address] [facility] [address] measurement /2017 [facility] - (mass/volume) Patients Medical Center Serum or plasma 0.8 0.8 - 2.0 07/[address] [facility] [address] albumin/globuli [facility] - n mass ratio Patients Medical Center Serum or plasma 103 40 - 150 07/[address] [facility] [address] alkaline [facility] - phosphatase Patients measurement Medical (enzymatic Center activity/volume ) Serum or plasma 37 29 - 168 07/[address] [facility] [address] creatine kinase [facility] - measurement Patients (enzymatic Medical activity/volume Center ) Serum or plasma 0.30 0 - 5.0 07/[address] [facility] [address] creatine kinase [facility] - MB measurement Patients (mass/volume) [facility] Center Troponin I < 0.001 0 - 0.300 07/[address] [facility] [address] measurement by [facility] - highly Patients sensitive Medical enzyme Center immunoassay Serum or plasma 63 25 - 125 07/[address] [facility] [address] amylase [facility] - measurement Patients (enzymatic Medical activity/volume Center ) Serum or plasma 40 8 - 78 07/[address] [facility] [address] lipase [facility] - measurement Patients (enzymatic Medical activity/volume Center ) Serum or plasma 0.601 0.350 - 07/[address] [facility] [address] thyrotropin 4.940 [facility] - measurement by Patients detection limit Medical <=0.005 miu/l Center (units/volume) Activated Activated 44.8 23.8 - 07/[address] [facility] [address] partial partial 35.5 [facility] - thromboplasti thromboplastin Patients n time (aPTT) time (aPTT) in Medical in platelet platelet poor Center poor plasma plasma bycoagulation bycoagulation assay assay Amorphous Amorphous FEW FEW 07/14 [facility] sediment sediment /2017 [facility] - detection in detection in Patients urine urine sediment Medical sediment by by light Center light microscopy microscopy Automated Automated blood 0.1 0.0 - 0.1 07/14 [facility] blood basophil count [facility] - basophil (count/volume) Patients count Medical (count/volume Center ) Automated Automated blood 1.0 0.0 - 1.0 07/14 [facility] blood basophil count /2017 [facility] - basophil as percentage Patients count as of total Medical percentage of leukocytes Center total leukocytes Automated Automated blood 0.2 0.0 - 0.4 07/14 [facility] blood eosinophil /2017 [facility] - eosinophil count Patients count Medical Center Automated Automated blood 2.4 0.0 - 6.0 07/14 [facility] blood eosinophil /2017 [facility] - eosinophil count as Patients count as percentage of Medical percentage of total Center total leukocytes leukocytes Automated Automated blood 42.6 34.2 - 07/14 [facility] blood hematocrit 44.1 [facility] - hematocrit (volume Patients (volume fraction) Medical fraction) Center Automated Automated blood 17.7 18.0 - 07/14 [facility] blood lymphocyte 39.1 [facility] - lymphocyte count as Patients count as percentage ot Medical percentage ot total Center total leukocytes leukocytes Automated Automated blood 6.1 4.4 - 11.3 07/14 [facility] blood monocyte count /2017 Lu - monocyte as percentage Patients count as of total Medical percentage of leukocytes Center total leukocytes Automated Automated blood 5.3 2.1 - 6.9 07/14 [facility] blood neutrophil /2017 [facility] - neutrophil count Patients count Medical Center Automated Automated blood 160 140 - 360 07/14 [facility] blood platelet count /2017 [facility] - platelet (count/volume) Patients count Medical (count/volume Center ) Automated Automated blood 72.5 38.7 - 07/14 [facility] blood segmented 80.0 [facility] - segmented neutrophil Patients neutrophil count as Medical count as percentage of Center percentage of total total leukocytes leukocytes Automated Automated 26.4 28 - 32 07/14 [facility] erythrocyte erythrocyte /2017 [facility] - mean mean Patients corpuscular corpuscular Medical hemoglobin hemoglobin Center (mass per (mass per erythrocyte) erythrocyte) Automated Automated 31.0 31 - 35 07/14 [facility] erythrocyte erythrocyte /2017 [facility] - mean mean Patients corpuscular corpuscular Medical hemoglobin hemoglobin Center concentration concentration measurement measurement (mass/volume) (mass/volume) Automated Automated 85.2 81 - 99 07/[address] [facility] [address] erythrocyte erythrocyte /2017 [facility] - mean mean Patients corpuscular corpuscular Medical volume volume Center Automated Automated urine <5 0 - 5 07/[address] [facility] urine sediment /2017 [facility] - sediment leukocyte count Patients leukocyte by microscopy Medical count by (number/high Center microscopy power field) (number/high power field) Bacteria Bacteria FEW NONE 07/[address] [facility] detection in detection in [facility] - urine urine sediment Patients sediment by by light Medical light microscopy Center microscopy Blood Blood 5.00 3.6 - 5.1 07/14 [facility] [address] erythrocytes erythrocytes /2017 [facility] - automated automated count Patients count (number/volume) Medical (number/volum Center e) Blood Blood 13.2 12.0 - 07/14 [facility] [address] hemoglobin hemoglobin 16.0 [facility] - measurement measurement Patients (moles/volume (moles/volume) Medical ) [place] Blood Blood 7.35 4.8 - 10.8 07/14 [facility] [address] leukocytes leukocytes /2017 [facility] - automated automated count Patients count (number/volume) Medical (number/volum Center e) Blood Blood 1.3 1.0 - 3.2 07/14 [facility] [address] lymphocytes lymphocytes /2017 [facility] - count count Patients (number/volum (number/volume) Medical e) [place] Blood Blood monocytes 0.5 0.2 - 0.8 07/[address] [facility] monocytes automated count /2017 [facility] - automated (number/volume) Patients count Medical (number/volum Center e) Epithelial Epithelial FEW NONE 07/14 [facility] [address] cells cells detection /2017 [facility] - detection in in urine Patients urine sediment by Medical sediment by light Center light microscopy microscopy Erythrocytes Erythrocytes <10 0 - 5 07/[address] [facility] detection in detection in [facility] - urine urine sediment Patients sediment by by light [facility] light microscopy Center microscopy Estimated Estimated >60 60 07/[address] [facility] [address] glomerular glomerular /2017 [facility] - filtration filtration rate Patients rate (GFR) (GFR) Medical determination determination Center Glucose Glucose 184 74 - 118 07/[address] [facility] [address] measurement measurement /2017 [facility] - Patients Medical Center INR in INR in Platelet 2.20 07/[address] [facility] [address] Platelet poor poor plasma by /2018 [facility] - plasma by Coagulation Patients Coagulation assay Medical assay Center Mucus Mucus detection FEW RARE 07/14 [facility]. detection in in urine /2017 [facility] - urine sediment by Patients sediment by light Medical light microscopy Center microscopy Plasma Plasma globulin 4.9 2.3 - 3.5 07/[address] [facility] [address] globulin measurement /2017 [facility] - measurement (mass/volume) Patients (mass/volume) Medical Center Prothrombin Prothrombin 26.1 11.9 - 07/14 [facility]. time (PT) in time (PT) in 14.5 [facility] - platelet poor platelet poor Patients plasma by plasma by Medical coagulation coagulation Center assay assay Serum or Serum or plasma 38 0 - 55 07/14 [facility]. plasma alanine /2017 - alanine aminotransferas Patients aminotransfer e measurement Medical ase (enzymatic Center measurement activity/volume (enzymatic ) activity/volu me) Serum or Serum or plasma 3.8 3.5 - 5.0 07/[address] [facility] [address] plasma albumin /2017 [facility] - albumin measurement Patients measurement (mass/volume) Medical (mass/volume) Center Serum or Serum or plasma 0.8 0.8 - 2.0 07/[address] [facility] [address] plasma albumin/globuli /2017 [facility] - albumin/globu n mass ratio Patients clari mass Medical ratio Center Serum or Serum or plasma 103 40 - 150 07/14 [facility] plasma alkaline /2017 - alkaline phosphatase Patients phosphatase measurement Medical measurement (enzymatic Center (enzymatic activity/volume activity/volu ) me) Serum or Serum or plasma 63 25 - 125 07/[address] [facility] [address] plasma amylase /2017[facility] - amylase measurement Patients measurement (enzymatic Medical (enzymatic activity/volume Center activity/volu ) me) Serum or Serum or plasma 16.3 8 - 16 07/[address] [facility] [address] plasma anion anion gap /2017 [facility] - gap Patients Medical Center Serum or Serum or plasma 10.2 8.4 - 10.2 07/[address] [facility] [address] plasma calcium /2017 [facility] - calcium measurement Patients measurement (mass/volume) Medical (mass/volume) Center Serum or Serum or plasma 23 22 - 29 07/[address] [facility] [address] plasma carbon carbon dioxide, /2017[facility] - dioxide, total Patients total measurement Medical measurement (moles/volume) Center (moles/volume ) Serum or Serum or plasma 105 98 - 107 07/[address] [facility] [address] plasma chloride /2017 [facility] - chloride measurement Patients measurement (moles/volume) Medical (moles/volume Center ) Serum or Serum or plasma 0.30 0 - 5.0 07/[address] [facility] [address] plasma creatine kinase /2017 [facility] - creatine MB measurement Patients kinase MB (mass/volume) Medical measurement Center (mass/volume) Serum or Serum or plasma 37 29 - 168 07/[address] [facility] [address] plasma creatine kinase /2017 [facility] - creatine measurement Patients kinase (enzymatic Medical measurement activity/volume Center (enzymatic ) activity/volu me) Serum or Serum or plasma 0.90 0.57 - 07/[address] [facility] [address] plasma creatinine 1.11 [facility] - creatinine measurement Patients measurement (mass/volume) Medical (mass/volume) Center Serum or Serum or plasma 40 8 - 78 07/[address] [facility] [address] plasma lipase lipase /2017 [facility] - measurement measurement Patients (enzymatic (enzymatic Medical activity/volu activity/volume Center me) ) Serum or Serum or plasma 1.8 1.3 - 2.1 07/[address] [facility] [address] plasma magnesium /2017 [facility] - magnesium measurement Patients measurement (mass/volume) Medical (mass/volume) Center Serum or Serum or plasma 4.3 3.5 - 5.1 07/[address] [facility] [address] plasma potassium /2017 [facility] - potassium measurement Patients measurement (moles/volume) Medical (moles/volume Center ) Serum or Serum or plasma 8.7 6.5 - 8.1 07/[address] [facility] [address] plasma protein /2017 [facility] - protein measurement Patients measurement (mass/volume) Medical (mass/volume) Center Serum or Serum or plasma 140 136 - 145 07/[address] [facility] [address] plasma sodium sodium /2017 [facility] - measurement measurement Patients (moles/volume (moles/volume) Medical ) Center Serum or Serum or plasma 0.601 0.350 - 07/[address] [facility] [address] plasma thyrotropin 4.940 [facility] - thyrotropin measurement by Patients measurement detection limit Medical by detection <=0.005 miu/l Center limit <=0.005 (units/volume) miu/l (units/volume ) Serum or Serum or plasma 1.5 0.2 - 1.2 07/[address] [facility] [address] plasma total total bilirubin [facility] - bilirubin measurement Patients measurement (mass/volume) Medical (mass/volume) Center Serum or Serum or plasma 12 7 - 26 07/[address] [facility] [address] plasma urea urea nitrogen /2017 [facility] - nitrogen measurement Patients measurement (mass/volume) [facility] (mass/volume) Center Serum or Serum or plasma 13 6 - 25 07/[address] [facility] [address] plasma urea urea /2017 [facility] - nitrogen/crea nitrogen/creati Patients tinine mass nine mass ratio Medical ratio Center Specific Specific 1.025 1.010 - 07/[address] [facility] [address] gravity of gravity of 1.025 [facility] - Urine by Test Urine by Test Patients strip strip [facility] Troponin I Troponin I <0.001 0 - 0.300 07/[address] [facility] [address] measurement measurement by [facility] - by highly highly Patients sensitive sensitive [facility] enzyme enzyme [place] immunoassay immunoassay Urine clarity Urine clarity SL CLOUDY CLEAR 07/[address] [facility] [facility] color Urine color YELLOW YELLOW 07/[address] [facility] [address] determination determination [facility] Urine Urine TRACE NEGATIVE 07/[address] [facility] [address] erythrocytes erythrocytes [facility] - detection detection Patients [facility] Urine glucose Urine glucose 3+ NEGATIVE 07/[address] [facility] [address] [facility] Urine ketones Urine ketones TRACE NEGATIVE 07/[address] [facility] [address] detection by detection by [facility] - automated automated test Patients test strip strip [facility] Urine Urine leukocyte NEGATIVE NEGATIVE 07/[address] [facility] [address] leukocyte esterase [facility] - esterase detection by Patients detection by dipstick [facility] dipstick [facility] Urine nitrite Urine nitrite NEGATIVE NEGATIVE 07/[address] [facility] [address] detection detection [facility] Urine pH Urine pH 6 5 - 7 07/[address] [facility] [address] measurement measurement by [facility] - by automated automated test Patients test strip strip [facility] Urine protein Urine protein NEGATIVE NEGATIVE 07/[address] [facility] [address] measurement measurement by [facility] - by test strip test strip Patients (mass/volume) (mass/volume) [facility] Urine total Urine total NEGATIVE NEGATIVE 07/[address] [facility] [address] bilirubin bilirubin [facility] - measurement measurement Patients (mass/volume) (mass/volume) [facility] Urine Urine 0.2 0.2 - 1 07/[address] [facility] [address] urobilinogen urobilinogen [facility] - measurement measurement by Patients by test strip test strip [facility] (mass/volume) (mass/volume) [place] Capillary blood 171 70 - 120 05/05 [facility] [address] glucose [facility] - measurement by Patients glucometer [facility] (mass/volume) [facility] Capillary Capillary blood 171 70 - 120 05/05 [facility] [address] blood glucose glucose /2017 [facility] - measurement measurement by Patients by glucometer glucometer Medical (mass/volume) (mass/volume) Center Pathology Reports No Data Provided for This Section Diagnostic Reports No Data Provided for This Section Consultation Notes No Data Provided for This Section Discharge Summaries No Data Provided for This Section History and Physicals No Data Provided for This Section Vital Signs Vital Sign Value Date Comments Source Weight 269 04/19/2019 [facility] Height 66.5 04/19/2019 [facility] Heart Rate 95 04/19/2019 [facility] Diastolic (mm Hg) 70 04/19/2019 [facility] Systolic (mm Hg) 128 04/19/2019 [facility] Weight 272 03/30/2019 [facility] Height 66.5 03/30/2019 [facility] Heart Rate 98 03/30/2019 [facility] Diastolic (mm Hg) 64 03/30/2019 [facility] Systolic (mm Hg) 130 03/30/2019 [facility] Weight 271 02/28/2019 [facility] Height 66.5 02/28/2019 [facility] Heart Rate 83 02/28/2019 [facility] Diastolic (mm Hg) 68 02/28/2019 [facility] Systolic (mm Hg) 132 02/28/2019 [facility] Weight 276 02/14/2019 [facility] Height 66.5 02/14/2019 [facility] Heart Rate 69 02/14/2019 [facility] Diastolic (mm Hg) 68 02/14/2019 [facility] Systolic (mm Hg) 114 02/14/2019 [facility] Weight 274 01/17/2019 [facility] Height 66.5 01/17/2019 [facility] Heart Rate 81 01/17/2019 [facility] Diastolic (mm Hg) 70 01/17/2019 [facility] Systolic (mm Hg) 112 01/17/2019 [facility] Diastolic (mm Hg) 64 12/19/2018 [facility] Systolic (mm Hg) 118 12/19/2018 [facility] Height 66.5 12/19/2018 [facility] Heart Rate 75 12/19/2018 [facility] Weight 280 11/21/2018 [facility] Height 66.5 11/21/2018 [facility] Heart Rate 78 11/21/2018 [facility] Diastolic (mm Hg) 68 11/21/2018 [facility] Systolic (mm Hg) 128 11/21/2018 [facility] Weight 270 11/01/2018 [facility] Height 66.5 11/01/2018 [facility] Heart Rate 88 11/01/2018 [facility] Diastolic (mm Hg) 70 11/01/2018 [facility] Systolic (mm Hg) 118 11/01/2018 [facility] Diastolic (mm Hg) 72 10/21/2018 [facility] Systolic (mm Hg) 126 10/21/2018 [facility] Height 66.5 10/21/2018 [facility] Heart Rate 92 10/21/2018 [facility] Systolic (mm Hg) 110 10/06/2018 [facility] Height 66.5 10/06/2018 [facility] Heart Rate 74 10/06/2018 [facility] Diastolic (mm Hg) 74 10/06/2018 [facility] Weight 253 09/07/2018 [facility] Height 66.5 09/07/2018 [facility] Heart Rate 87 09/07/2018 [facility] Diastolic (mm Hg) 58 09/07/2018 [facility] Systolic (mm Hg) 112 09/07/2018 [facility] Weight 250 08/19/2018 [facility] Height 66.5 08/19/2018 [facility] Heart Rate 86 08/19/2018 [facility] Diastolic (mm Hg) 70 08/19/2018 [facility] Systolic (mm Hg) 118 08/19/2018 [facility] Weight 251 07/29/2018 [facility] Height 66.5 07/29/2018 [facility] Temperature Oral (F) 98.7 F 07/29/2018 [facility] Heart Rate 75 07/29/2018 [facility] Diastolic (mm Hg) 74 07/29/2018 [facility] Systolic (mm Hg) 122 07/29/2018 [facility] Diastolic (mm Hg) 60 06/29/2018 [facility] Systolic (mm Hg) 114 06/29/2018 [facility] Height 66.5 06/29/2018 [facility] Weight 246 06/07/2018 [facility] Height 66.5 06/07/2018 [facility] Heart Rate 82 06/07/2018 [facility] Diastolic (mm Hg) 66 06/07/2018 [facility] Systolic (mm Hg) 118 06/07/2018 [facility] Weight 250 06/03/2018 [facility] Height 66.5 06/03/2018 [facility] Weight 250 05/03/2018 [facility] Height 66.5 05/03/2018 [facility] Heart Rate 87 05/03/2018 [facility] Diastolic (mm Hg) 70 05/03/2018 [facility] Systolic (mm Hg) 120 05/03/2018 [facility] Weight 247 04/19/2018 [facility] Height 66.5 04/19/2018 [facility] Temperature Oral (F) 98.9 F 04/19/2018 [facility] Heart Rate 94 04/19/2018 [facility] Diastolic (mm Hg) 70 04/19/2018 [facility] Systolic (mm Hg) 115 04/19/2018 [facility] Weight 251 04/07/2018 [facility] Height 66.5 04/07/2018 [facility] Heart Rate 93 04/07/2018 [facility] Diastolic (mm Hg) 62 04/07/2018 [facility] Systolic (mm Hg) 110 04/07/2018 [facility] Diastolic (mm Hg) 60 03/22/2018 [facility] Systolic (mm Hg) 110 03/22/2018 [facility] Height 66.5 03/22/2018 [facility] Heart Rate 87 03/22/2018 [facility] Diastolic (mm Hg) 60 03/08/2018 [facility] Systolic (mm Hg) 126 03/08/2018 [facility] Height 66.5 03/08/2018 [facility] Heart Rate 80 03/08/2018 [facility] Diastolic (mm Hg) 52 02/22/2018 [facility] Systolic (mm Hg) 114 02/22/2018 [facility] Height 66.5 02/22/2018 [facility] Heart Rate 86 02/22/2018 [facility] Weight 247 02/11/2018 [facility] Height 66.5 02/11/2018 [facility] Heart Rate 84 02/11/2018 [facility] Diastolic (mm Hg) 70 02/11/2018 [facility] Systolic (mm Hg) 112 02/11/2018 [facility] Weight 247 01/25/2018 [facility] Height 66.5 01/25/2018 [facility] Temperature Oral (F) 98.7 F 01/25/2018 [facility] Heart Rate 80 01/25/2018 [facility] Diastolic (mm Hg) 62 01/25/2018 [facility] Systolic (mm Hg) 128 01/25/2018 [facility] Weight 251 01/11/2018 [facility] Height 66.5 01/11/2018 [facility] Heart Rate 93 01/11/2018 [facility] Diastolic (mm Hg) 60 01/11/2018 [facility] Systolic (mm Hg) 120 01/11/2018 [facility] Weight 247 11/09/2017 [facility] Height 66.5 11/09/2017 [facility] Heart Rate 90 11/09/2017 [facility] Diastolic (mm Hg) 70 11/09/2017 [facility] Systolic (mm Hg) 110 11/09/2017 [facility] Weight 257 07/16/2017 [facility] Height 66.5 07/16/2017 [facility] Heart Rate 88 07/16/2017 [facility] Diastolic (mm Hg) 70 07/16/2017 [facility] Systolic (mm Hg) 118 07/16/2017 [facility] Diastolic (mm Hg) 74 07/07/2017 [facility] Systolic (mm Hg) 115 07/07/2017 [facility] Height 66.5 07/07/2017 [facility] Heart Rate 93 07/07/2017 [facility] Weight 260 06/29/2017 [facility] Height 66.5 06/29/2017 [facility] Heart Rate 94 06/29/2017 [facility] Diastolic (mm Hg) 70 06/29/2017 [facility] Systolic (mm Hg) 108 06/29/2017 [facility] Systolic (mm Hg) 116 12/07/2016 [facility] Height 66.5 12/07/2016 [facility] Heart Rate 84 12/07/2016 [facility] Diastolic (mm Hg) 70 12/07/2016 [facility] Diastolic (mm Hg) 79 11/02/2016 [facility] Systolic (mm Hg) 160 11/02/2016 [facility] Height 66.5 11/02/2016 [facility] Heart Rate 103 11/02/2016 [facility] Systolic (mm Hg) 132 10/26/2016 [facility] Height 66.5 10/26/2016 [facility] Heart Rate 106 10/26/2016 [facility] Diastolic (mm Hg) 86 10/26/2016 [facility] Systolic (mm Hg) 130 09/18/2016 [facility] Height 66.5 09/18/2016 [facility] Heart Rate 90 09/18/2016 [facility] Diastolic (mm Hg) 82 09/18/2016 [facility] Diastolic (mm Hg) 90 07/21/2016 [facility] Systolic (mm Hg) 126 07/21/2016 [facility] Height 66.5 07/21/2016 [facility] Heart Rate 101 07/21/2016 [facility] Diastolic (mm Hg) 72 07/07/2016 [facility] Systolic (mm Hg) 130 07/07/2016 [facility] Height 66.5 07/07/2016 [facility] Heart Rate 108 07/07/2016 [facility] Systolic (mm Hg) 125 06/23/2016 [facility] Height 66.5 06/23/2016 [facility] Heart Rate 105 06/23/2016 [facility] Diastolic (mm Hg) 88 06/23/2016 [facility] Systolic (mm Hg) 120 06/16/2016 [facility] Height 66.5 06/16/2016 [facility] Heart Rate 83 06/16/2016 [facility] Diastolic (mm Hg) 70 06/16/2016 [facility] Systolic (mm Hg) 126 05/19/2016 [facility] Height 66.5 05/19/2016 [facility] Heart Rate 99 05/19/2016 [facility] Diastolic (mm Hg) 72 05/19/2016 [facility] Diastolic (mm Hg) 64 02/07/2016 [facility] Systolic (mm Hg) 120 02/07/2016 [facility] Height 66.5 02/07/2016 [facility] Weight 263 01/31/2016 [facility] Height 66.5 01/31/2016 [facility] Heart Rate 88 01/31/2016 [facility] Diastolic (mm Hg) 80 01/31/2016 [facility] Systolic (mm Hg) 132 01/31/2016 [facility] Weight 234 04/17/2015 [facility] Height 66.5 04/17/2015 [facility] Temperature Oral (F) 98.0 F 04/17/2015 [facility] Heart Rate 94 04/17/2015 [facility] Diastolic (mm Hg) 70 04/17/2015 [facility] Systolic (mm Hg) 110 04/17/2015 [facility] Height 67 03/21/2015 [facility] Weight 233 03/21/2015 [facility] Temperature Oral (F) 97.7 F 03/21/2015 [facility] Heart Rate 91 03/21/2015 [facility] Systolic (mm Hg) 143 03/21/2015 [facility] Diastolic (mm Hg) 85 03/21/2015 [facility] Height 67 02/21/2015 [facility] Weight 240 02/21/2015 [facility] Temperature Oral (F) 98.2 F 02/21/2015 [facility] Heart Rate 97 02/21/2015 [facility] Systolic (mm Hg) 126 02/21/2015 [facility] Diastolic (mm Hg) 82 02/21/2015 [facility] Height 67 02/05/2015 [facility] Temperature Oral (F) 97.5 F 02/05/2015 [facility] Heart Rate 125 02/05/2015 [facility] Systolic (mm Hg) 124 02/05/2015 [facility] Diastolic (mm Hg) 85 02/05/2015 [facility] Weight 269 08/24/2014 [facility] Height 66.5 08/24/2014 [facility] Heart Rate 112 08/24/2014 [facility] Diastolic (mm Hg) 80 08/24/2014 [facility] Systolic (mm Hg) 140 08/24/2014 [facility] Weight 266 08/22/2014 [facility] Height 66.5 08/22/2014 [facility] Temperature Oral (F) 98.5 F 08/22/2014 [facility] Heart Rate 82 08/22/2014 [facility] Diastolic (mm Hg) 70 08/22/2014 [facility] Systolic (mm Hg) 118 08/22/2014 [facility] Weight 266 08/21/2014 [facility] Height 66.5 08/21/2014 [facility] Temperature Oral (F) 98.1 F 08/21/2014 [facility] Heart Rate 76 08/21/2014 [facility] Diastolic (mm Hg) 88 08/21/2014 [facility] Systolic (mm Hg) 142 08/21/2014 [facility] Height 67 05/31/2014 [facility] Weight 264 05/31/2014 [facility] Temperature Oral (F) 97.9 F 05/31/[facility] Heart Rate 112 05/31/2014 [facility] Systolic (mm Hg) 123 05/31/2014 [facility] Diastolic (mm Hg) 82 05/31/[facility] Weight 266 04/19/2014 [facility] Height 66.5 04/19/2014 [facility] Heart Rate 112 04/19/2014 [facility] Diastolic (mm Hg) 70 04/19/2014 [facility] Systolic (mm Hg) 126 04/19/2014 [facility] Weight 263 04/19/2014 [facility] Temperature Oral (F) 97.6 F 04/19/2014 [facility] Heart Rate 93 04/19/2014 [facility] Systolic (mm Hg) 123 04/19/2014 [facility] Diastolic (mm Hg) 79 04/19/[facility] Weight 264 04/18/2014 [facility] Height 66.5 04/18/2014 [facility] Heart Rate 76 04/18/2014 [facility] Diastolic (mm Hg) 74 04/18/2014 [facility] Systolic (mm Hg) 118 04/18/2014 [facility] Weight 260 04/03/[facility] Temperature Oral (F) 98.3 F 04/03/2014 [facility] Heart Rate 105 04/03/2014 [facility] Systolic (mm Hg) 142 04/03/2014 [facility] Diastolic (mm Hg) 87 04/03/2014 [facility] Weight 258 03/20/2014 [facility] Temperature Oral (F) 98.3 F 03/20/2014 [facility] Heart Rate 103 03/20/2014 [facility] Systolic (mm Hg) 134 03/20/2014 [facility] Diastolic (mm Hg) 83 03/20/2014 [facility] Weight 253 03/08/2014 [facility] Height 66.5 03/08/2014 [facility] Temperature Oral (F) 98.9 F 03/08/2014 [facility] Heart Rate 112 03/08/2014 [facility] Diastolic (mm Hg) 82 03/08/2014 [facility] Systolic (mm Hg) 122 03/08/2014 [facility] Weight 255 03/08/[facility] Temperature Oral (F) 97.9 F 03/08/2014 [facility] Heart Rate 116 03/08/2014 [facility] Systolic (mm Hg) 129 03/08/2014 [facility] Diastolic (mm Hg) 83 03/08/2014 [facility] Weight 250 02/20/2014 [facility] Temperature Oral (F) 98.3 F 02/20/2014 [facility] Heart Rate 92 02/20/2014 [facility] Systolic (mm Hg) 112 02/20/[facility] Diastolic (mm Hg) 71 02/20/2014 [facility] Height 67 02/01/2014 [facility] Weight 243 02/01/2014 [facility] Temperature Oral (F) 98.4 F 02/01/2014 [facility] Heart Rate 103 02/01/2014 [facility] Systolic (mm Hg) 127 02/01/2014 [facility] Diastolic (mm Hg) 86 02/01/2014 [facility] Weight 248 01/29/2014 [facility] Height 66.5 01/29/2014 [facility] Heart Rate 62 01/29/2014 [facility] Diastolic (mm Hg) 84 01/29/2014 [facility] Systolic (mm Hg) 132 01/29/2014 [facility] Weight 266 06/13/2013 [facility] Height 66.5 06/13/2013 [facility] Heart Rate 78 06/13/2013 [facility] Diastolic (mm Hg) 86 06/13/2013 [facility] Systolic (mm Hg) 140 06/13/2013 [facility] Encounters Location Location Encounter Encounter Reason Attending ADM DC Status Source Details Type Number For Provider Date Date Visit [facility] [id number] 06/13 06/13 [facility] 84-4917-b3e /2012 Family Practice [id number] & and 72d [facility] [id number] 06/13 06/13 [facility] 61-94k8-7s9 /2012 [facility] Practice 3-44325dyu3 & and 79b [facility] [id number] 06/13 06/13 [facility] 98-27h1-5jj /2012 [facility] Practice f-ld2m9wb0i & and 7b0 [facility] [id number] 06/13 06/13 [facility] 78-0o1l-03g /2012 [facility] Practice 3-5x3c437t5 & and 52f [facility] [id number] 06/13 06/13 [facility] 8b-473c-962 /2012 [facility] Practice d-6f96nib78 & and 632 [facility] [id number] 06/13 06/13 [facility] 21-0a42-868 /2012 [facility] Practice f-m9m426b08 & and e80 [facility] [id number] 06/13 06/13 [facility] 32-42ba-b0c /2012 [facility] Practice 9-x24b17880 & and 9f1 [facility] [id number] 06/13 06/13 [facility] 79-4848-a7a /2012 [facility] 9-67f4n80b3 & and 055 [facility] [id number] 06/13 06/13 [facility] 4d-7t81-265 /2012 [facility] 6-t02w8r49g & and 66b [facility] [id number] 06/13 06/13 [facility] 3c-1e0p-g06 /2012 [facility] 2-0982zz715 & and 036 [facility] [id number] 06/13 06/13 [facility] 35-439c-867 /2012 [facility] Practice 7-86qnt99io & and 3c9 [facility] [id number] 06/13 06/13 [facility] 3e-3o3v-78h /2012 [facility] c-8jk001n26 & and 4f3 [facility] [id number] 06/13 06/13 [facility] 11-7r74-c22 /2012 [facility] d-[id number] & and c8d [facility] [id number] 06/13 06/13 [facility] 2f-9p35-396 /2012 [facility] Practice 8-4v1604e48 & and 3aa [facility] [id number] 06/13 06/13 [facility] 63-452c-94b /2012 Family Practice 7-fq087009j & and 30e [facility] [id number] 06/13 06/13 [facility] 54-79i3-4bp /2012 [facility] Practice a-2yu9a3n07 & and 9ef [facility] [id number] 06/13 06/13 [facility] 0a-4454-adc /2012 [facility] Practice f-37japw31y & and ad5 [facility] [id number] 06/13 06/13 [facility] fc-70a8-02k /2012 [facility] Practice 5-r3622zoe1 & and f06 [facility] [id number] 06/13 06/13 [facility] 76-7f9f-m5o /2012 [facility] Practice b-1ofv5w39m & and 588 [facility] [id number] 06/13 06/13 [facility] e3-4354-acd /2012 [facility] Practice 6-2933700s6 & and 2e0 [facility] [id number] 06/13 06/13 [facility] c7-432c-b97 /2012 Family Practice e-[id number] & and 25e [facility] [id number] 06/13 06/13 [facility] 19-7i06-h3e /2012 [facility] 1-82n1v06v2 & and 56b [facility] [id number] 06/13 06/13 [facility] 0a-4421-ac4 /2012 Family Practice a-6zg6v476i & and 78b [facility] [id number] 06/13 06/13 [facility] c1-44dc-814 /2012 [facility] Practice 8-k9810h2ta & and cbd [facility] [id number] 06/13 06/13 [facility] 76-4626-b10 /2012 [facility] 7-l1e4o6u6w & and 45d [facility] [id number] 06/13 06/13 [facility] f3-4q15-018 /2012 [facility] Practice 6-s77k1oqo4 & and 4ab [facility] [id number] 06/13 06/13 [facility] cc-4021-9a3 /2012 [facility] Practice 5-gz4ic8ddl & and 5d4 [facility] [id number] 06/13 06/13 [facility] 31-49df-b48 /2012 Family Practice 6-0wvk16971 & and dbb [facility] [id number] 06/13 06/13 [facility] 4a-4267-bf6 /2012 [facility] Practice 2-6cm177i33 & and 380 [facility] [id number] 06/13 06/13 [facility] 28-4187-b28 /2012 [facility] Practice 5-4iqlz07n2 & and eed [facility] [id number] 06/13 06/13 [facility] bd-4791-8cf /2012 [facility] Practice c-903bg71al & and 9da [facility] [id number] 06/13 06/13 [facility] 1a-0n1b-003 /2012 [facility] Practice d-4z1p17yki & and 614 [facility] [id number] 06/13 06/13 [facility] a1-4i65-q67 /2012 [facility] Practice 9-c8371yuv0 & and 45b [facility] [id number] 06/13 06/13 [facility] 72-447f-819 /2012 [facility] Practice e-[id number] & and e77 [facility] [id number] 06/13 06/13 [facility] 10-2n74-p47 /2012 [facility] Practice a-s8921pzah & and b9f [facility] [id number] 06/13 06/13 [facility] a7-4314-ae4 /2012 [facility] Practice b-p0p415hmw & and 606 [facility] [id number] 06/13 06/13 [facility] ff-4243-bcc /2012 [facility] Practice 0-08m7496a7 & and 5b6 [facility] [id number] 06/13 06/13 [facility] 3f-9u10-n70 /2012 [facility] Practice c-[id number] & and eb4 [facility] [id number] 06/13 06/13 [facility] 2b-4904-849 /2012 [facility] Practice f-1c624g607 & and 20a [facility] [id number] 06/13 06/13 [facility] be-3sd6-501 /2012 [facility] Practice 4-09y4g00d3 & and 1a5 [facility] [id number] 06/13 06/13 [facility] c6-4985-91b /2012 [facility] Practice 6-0fe32kh2m & and 281 [facility] [id number] 06/13 06/13 [facility] 63-3d8e-ek1 /2012 [facility] Practice 8-t2ng812c5 & and 0f7 [facility] [id number] 06/13 06/13 [facility] 29-51j9-dg1 /2012 Family Practice 7-1yq94ljh6 & and 2ac [facility] [id number] 06/13 06/13 [facility] b4-468e-938 /2012 Family Practice 1-v0t2173l9 & and 350 [facility] [id number] 06/13 06/13 [facility] fd-447e-948 /2012 [facility] Practice 4-um346x3g7 & and 7ac [facility] [id number] 06/13 06/13 [facility] 0e-36r0-yr5 /2012 [facility] Practice 9-0b35o3v13 & and 7f2 [facility] [id number] 06/13 06/13 [facility] e7-4cfc-904 /2012 [facility] Practice 5-1s85zng27 & and 9c9 [facility] [id number] 06/13 06/13 [facility] d8-64f0-00b /2012 Family Practice d-[id number] & and c8a [facility] afffecff-c2 06/13 06/13 [facility] 93-6o37-ns4 /2012 [facility] Practice 9-lh4p50462 & and 24c [facility] [id number] 06/13 06/13 [facility] 43-59d0-1h7 /2012 Family Practice a-[id number] & and ec1 [facility] [id number] 06/13 06/13 [facility] 69-24o8-q2m /2012 [facility] Practice 4-cc9gmgo96 & and 1c4 [facility] [id number] 06/13 06/13 [facility] 06-4215-b18 /2012 [facility] 3-54174u837 & and 02f [facility] [id number] 06/13 06/13 [facility] 7b-80o9-1e5 /2012 [facility] Practice 8-c28z9wa58 & and cd6 [facility] Test results [id number] 06/27 06/27 [facility] ab-46fa-bbc /2012 [facility] c-4u228062z & and 8fc [facility] Test results [id number] 06/27 06/27 [facility] 4c-9fn4-yx0 /2012 [facility] Practice 8-40y41i2l5 & and fcf [facility] Test results [id number] 06/27 06/27 [facility] 2c-45ec-bfa /2012 [facility] d-044kq7767 & and e21 [facility] Test results [id number] 06/27 06/27 [facility] fa-4771-a85 /2012 [facility] [id number] & and 4c7 [facility] Test results [id number] 06/27 06/27 [facility] 6a-43bf-a63 /2012 [facility] Practice e-bzt991154 & and 415 [facility] Test results [id number] 06/27 06/27 [facility] 8b-7b01-73r /2012 [facility] Practice 1-ht78q149k & and fc9 [facility] Test results [id number] 06/27 06/27 [facility] d5-21m9-hb6 /2012 [facility] Practice 5-9r4no0pyc & and 5d5 [facility] Test results [id number] 06/27 06/27 [facility] c2-9oc2-w1g /2012 [facility] Practice 9-f48jr5d54 & and 01e [facility] Test results [id number] 06/27 06/27 [facility] 20-4482-b3c /2012 [facility] Practice c-2207mr64b & and 65e [facility] Test results [id number] 06/27 06/27 [facility] 5d-5t35-5aw /2012 [facility] Practice 2-u8m8b49c2 & and fc0 [facility] Test results [id number] 06/27 06/27 [facility] 4e-406f-b09 /2012 [facility] Practice b-6y2s18455 & and ad3 [facility] Test results [id number] 06/27 06/27 [facility] 5e-4cac-b0f /2012 [facility] Practice 7-6m0us882h & and c0d [facility] Test results [id number] 06/27 06/27 [facility] 00-49ed-9c1 /2012 [facility] Practice 7-1esfk916c & and 0ac [facility] Test results [id number] 06/27 06/27 [facility] a7-1e98-781 /2012 [facility] Practice 3-46jx124ws & and b42 [facility] Test results [id number] 06/27 06/27 [facility] f4-425f-9c4 /2012 [facility] Practice 1-4oyq0222s & and 9da [facility] Test results [id number] 06/27 06/27 [facility] 88-50i6-3f0 /2012 [facility] Practice b-hk5u02u8k & and cb7 [facility] Test results [id number] 06/27 06/27 [facility] 4e-465f-8dd /2012 [facility] 1-o08g7j480 & and dd7 [facility] Test results [id number] 06/27 06/27 [facility] f2-4844-a70 /2012 [facility] Practice 9-41iyc9sh5 & and 411 [facility] Test results [id number] 06/27 06/27 [facility] 09-5m52-26t /2012 [facility] Practice 3-658b91443 & and cd5 [facility] Test results [id number] 06/27 06/27 [facility] ce-4793-8f5 /2012 [facility] Practice a-m8h346745 & and 4d7 [facility] Test results [id number] 06/27 06/27 [facility] 06-4rj3-u7m /2012 [facility] Practice 4-93ri0h8e4 & and 3c2 [facility] Test results [id number] 06/27 06/27 [facility] 4d-0d47-ja8 /2012 [facility] Practice 1-09672gaok & and 969 [facility] Test results [id number] 06/27 06/27 [facility] 51-42cc-chirag /2012 [facility] Practice 1-6z289hv0n & and 892 [facility] Test results [id number] 06/27 06/27 [facility] 4c-17l3-5v8 /2012 [facility] Practice f-4v924q7s7 & and da0 [facility] Test results [id number] 06/27 06/27 [facility] c6-4227-b98 /2012 [facility] Practice d-c470f477h & and eac [facility] Test results [id number] 06/27 06/27 [facility] 12-4385-9b6 /2012 [facility] Practice 5-5lx8of8i7 & and f70 [facility] Test results [id number] 06/27 06/27 [facility] a2-440a-82d /2012 [facility] d-8f31t6vis & and 893 [facility] Test results [id number] 06/27 06/27 [facility] 7a-5j7w-5w8 /2012 [facility] Practice 8-i2b1rgs84 & and d28 [facility] Test results [id number] 06/27 06/27 [facility] 08-4626-aab /2012 [facility] 7-9owh4551t & and b19 [facility] Test results [id number] 06/27 06/27 [facility] cb-4fea-99f /2012 [facility] d-[id number] & and 53f [facility] Test results [id number] 06/27 06/27 [facility] 0e-3od5-d22 /2012 [facility] c-pc8541er6 & and ff8 [facility] Test results [id number] 06/27 06/27 [facility] 8c-4z72-93n /2012 [facility] Practice 6-vcn86s55s & and 901 [facility] Test results [id number] 06/27 06/27 [facility] 50-436e-886 /2012 [facility] 2-h3p9ex6o2 & and f7a [facility] Test results [id number] 06/27 06/27 [facility] 6a-4i4u-2g7 /2012 [facility] Practice 6-rh1lky4h9 & and 4fe [facility] Test results [id number] 06/27 06/27 [facility] 7e-4783-92f /2012 [facility] Practice 3-289b4m6kb & and 5a6 [facility] Test results [id number] 06/27 06/27 [facility] f3-6z38-517 /2012 [facility] f-2un325s4h & and 99a [facility] Test results [id number] 06/27 06/27 [facility] 18-407e-bf9 /2012 [facility] Practice a-5e48vi767 & and 4af [facility] Test results [id number] 06/27 06/27 [facility] f9-83n4-g36 /2012 [facility] Practice c-67q4je757 & and d28 [facility] Test results [id number] 06/27 06/27 [facility] af-3z44-9gn /2012 [facility] 4-48250598f & and 498 [facility] Test results [id number] 06/27 06/27 [facility] 32-50u0-h47 /2012 [facility] Practice 0-063e1q6vh & and b57 [facility] Test results [id number] 06/27 06/27 [facility] 67-5f5r-818 /2012 [facility] 1-04lco0m33 & and f91 [facility] Test results [id number] 06/27 06/27 [facility] 9e-77p9-e9b /2012 [facility] Practice 0-6ijv5d348 & and b5f [facility] Test results [id number] 06/27 06/27 [facility] a8-439b-ad5 /2012 [facility] Practice 1-ymi5up94i & and 5f7 [facility] Test results [id number] 06/27 06/27 [facility] 97-4893-ab6 /2012 [facility] Practice 0-1uv6i68ci & and aaa [facility] Test results [id number] 06/27 06/27 [facility] ff-8f9a-785 /2012 [facility] Practice a-hzo09086q & and 67d [facility] Test results [id number] 06/27 06/27 [facility] 2e-2f90-j65 /2012 [facility] 3-qd8908b54 & and 514 [facility] Test results [id number] 06/27 06/27 [facility] 52-33s0-36o /2012 [facility] Practice b-o225xz1u3 & and 712 [facility] Test results [id number] 06/27 06/27 [facility] f1-7g34-585 /2012 [facility] Practice b-082cfffec & and c34 [facility] Test results [id number] 06/27 06/27 [facility] c3-429e-a4d /2012 [facility] Practice 2-yr93jq54g & and 80a [facility] Test results [id number] 06/27 06/27 [facility] 7e-4453-9b1 /2012 [facility] Practice 6-jlz148v67 & and 492 [facility] Test results [id number] 06/27 06/27 [facility] 57-95o1-y20 /2012 [facility] Practice 7-6dxm967h3 & and b0a [facility] Test results [id number] 06/27 06/27 [facility] 4a-6p82-1tk /2012 [facility] Practice 4-r244j8597 & and 8fb [facility] Unknown [id number] 01/09 01/09 [facility] b2-4724-a4d /2013 [facility] Practice 9-wiwxa12y3 & and 141 [facility] Unknown [id number] 01/09 01/09 [facility] 12-8d1n-l79 /2013 [facility] 3-74p139u29 & and 056 [facility] Unknown [id number] 01/09 01/09 [facility] 86-473a-a26 /2013 [facility] 5-9ma56e0d1 & and 564 [facility] Unknown [id number] 01/09 01/09 [facility] 67-4682-8f8 /2013 [facility] Practice 4-9194o48c6 & and 567 [facility] Unknown [id number] 01/09 01/09 [facility] 54-42bb-8ae /2013 [facility] Practice 2-5r6r90050 & and ec9 [facility] Unknown [id number] 01/09 01/09 [facility] d6-4v4c-043 /2013 [facility] Practice f-1gq8qpj75 & and [facility] Unknown [id number] 01/09 01/09 [facility] 2d-97b2-i6y /2013 [facility] 8-8c6270w89 & and 62b [facility] Unknown [id number] 01/09 01/09 [facility] 6b-4184-ac6 /2013 [facility] Practice e-655jav358 & and 4ea [facility] Unknown [id number] 01/09 01/09 [facility] b6-47de-b90 /2013 [facility] 7-55y4632y8 & and ec3 [facility] Unknown [id number] 01/09 01/09 [facility] 3c-42eb-82a /2013 [facility] Practice a-[id number] & and ed4 [facility] Unknown [id number] 01/09 01/09 [facility] ad-490f-add /2013 [facility] c-754vd01q2 & and 0a7 [facility] Unknown [id number] 01/09 01/09 [facility] e1-7z18-j17 /2013 [facility] 3-5wgw27o23 & and bb6 [facility] Unknown [id number] 01/09 01/09 [facility] dc-4132-b21 /2013 [facility] 6-b3v9g762q & and 73a [facility] Unknown [id number] 01/09 01/09 [facility] ba-4255-8c9 /2013 [facility] Practice 2-8hls4604a & and 720 [facility] Unknown [id number] 01/09 01/09 [facility] 7c-2p8m-027 /2013 [facility] 3-3z6996w43 & and 333 [facility] Unknown [id number] 01/09 01/09 [facility] 2d-76p1-r74 /2013 [facility] 2-5j1p265de & and 32c [facility] Unknown [id number] 01/09 01/09 [facility] 7d-4844-851 /2013 [facility] 4-u7l737rn4 & and 365 [facility] Unknown [id number] 01/09 01/09 [facility] 89-6d70-078 /2013 [facility] 4-b0r8ov138 & and f9b [facility] Unknown [id number] 01/09 01/09 [facility] 46-4840-bec /2013 [facility] Practice 5-98q675g8j & and bca [facility] Unknown [id number] 01/09 01/09 [facility] d2-4061-85a /2013 [facility] a-02g9t8z78 & and ea9 [facility] Unknown [id number] 01/09 01/09 [facility] d7-4760-b58 /2013 [facility] Practice 8-y6x66g618 & and dac [facility] Unknown [id number] 01/09 01/09 [facility] 72-4552-800 /2013 [facility] c-2c111193m & and 182 [facility] Unknown [id number] 01/09 01/09 [facility] 81-5xn8-305 /2013 [facility] Practice b-4u44ui9v7 & and 11f [facility] Unknown [id number] 01/09 01/09 [facility] fe-79g1-a8p /2013 [facility] Practice 5-3736973rx & and 1e3 [facility] Unknown [id number] 01/09 01/09 [facility] 40-13y0-r1b /2013 [facility] Practice 1-ya9448l2z & and 1f8 [facility] Unknown [id number] 01/09 01/09 [facility] 61-36q5-4w1 /2013 [facility] Practice 5-3u1z0a45h & and 8ae [facility] Unknown [id number] 01/09 01/09 [facility] d4-4cea-ba8 /2013 [facility] Practice [id number] & and b40 [facility] Unknown [id number] 01/09 01/09 [facility] d3-80a8-y71 /2013 Family Practice 8-3v4fp71xc & and 2f5 [facility] Unknown [id number] 01/09 01/09 [facility] 20-1y3s-918 /2013 Family Practice 6-62rg36v85 & and ff9 [facility] Unknown [id number] 01/09 01/09 [facility] Negr[facility] bb-4aac-87f /2013 Family Practice 2-s79jx68rx & and f1c [facility] Unknown [id number] 01/09 01/09 [facility] 08-8t58-284 /2013 Family Practice f-906eij7k2 & and 651 [facility] Unknown [id number] 01/09 01/09 [facility]gr[facility] d6-463a-b09 /2013 Family Practice b-814wfp55p & and 634 [facility] Unknown [id number] 01/09 01/09 [facility] Negron a8-453f-bb3 /2013 Family Practice 6-ra84b7r17 & and 020 [facility] Unknown [id number] 01/09 01/09 [facility] Negr[facility] 1c-4605-aab /2013 Family Practice 8-m72x52j6k & and 683 [facility] Unknown [id number] 01/09 01/09 [facility]gron 67-4505-827 /2013 Family Practice c-o07311x83 & and 844 [facility] Unknown [id number] 01/09 01/09 [facility] fd-8ll4-105 /2013 Family Practice 8-13w36q3p9 & and 36c [facility] Unknown [id number] 01/09 01/09 One[facility] Negron 53-4628-bbb /2013 Family Practice 2-w25cc5288 & and aad [facility] Unknown [id number] 01/09 01/09 [facility]on 46-7g50-m2l /2013 Family Practice d-3s89765k0 & and 1ad [facility] Unknown [id number] 01/09 01/09 [facility]gron 5d-4067-b3c /2013 Family Practice 2-0v05sqn61 & and 8a2 [facility] Unknown [id number] 01/09 01/09 [facility] Negr[facility] bb-3o98-951 /2013 Family Practice 5-l73189rd3 & and 388 [facility] Unknown [id number] 01/09 01/09 [facility] d4-471c-836 /2013 Family Practice d-vsj94r8ia & and 0d7 [facility] Unknown [id number] 01/09 01/09 [facility] bc-4x7l-xbz /2013 Family Practice 5-7es7o86yq & and 549 [facility] Unknown [id number] 01/09 01/09 [facility] 38-3z5c-y70 /2013 Family Practice 8-068b37q90 & and moris [facility] Unknown [id number] 01/09 01/09 [facility] 7c-0q83-p70 /2013 Family Practice 7-6qrjvk643 & and 98e [facility] Unknown [id number] 01/09 01/09 [facility] e4-3g8r-64r /2013 Family Practice 3-y42ige404 & and 6b3 [facility] Unknown [id number] 01/09 01/09 [facility] 42-4eed-96d /2013 Family Practice c-gl14qxu23 & and 251 [facility] Unknown [id number] 01/09 01/09 [facility] Ne[facility] 85-49be-957 /2013 Family Practice 4-77i97c96v & and c70 [facility] Unknown [id number] 01/09 01/09 [facility] 3a-3f26-48i /2013 Family Practice d-d8xc29h69 & and 7c6 [facility] Unknown [id number] 01/09 01/09 [facility] Negron ab-4264-aa4 /2013 Family Practice 5-3x58kle8k & and f32 [facility] Unknown [id number] 01/09 01/09 [facility] Negron 83-40bc-887 /2013 Family Practice 5-m2c1uf739 & and 278 [facility] Unknown [id number] 01/09 01/09 [facility] Negron c7-456b-b3c /2013 Family Practice b-5978c6202 & and aa8 [facility] REFILL [id number] 01/15 01/15 [facility] a6-24x9-cia /2013 Family Practice 4-n9054p7m4 & and c2d [facility] REFILL [id number] 01/15 01/15 [facility] e4-5z94-wiv /2013 Family Practice d-3ktfxx21m & and 3da [facility] REFILL [id number] 01/15 01/15 [facility] c9-4462-984 /2013 Family Practice 7-2wch1e609 & and c9d [facility] REFILL [id number] 01/15 01/15 Oniel Negron 93-41a7-5v6 /2013 Family Practice f-[id number] & and 8b9 [facility] REFILL [id number] 01/15 01/15 [facility] 42-8av5-ti4 /2013 Family Practice 5-5o0505w5i & and c0d [facility] REFILL [id number] 01/15 01/15 [facility] cc-411a-a8b /2013 Family Practice 3-2i958l79l & and f9a [facility] REFILL [id number] 01/15 01/15 [facility] 48-422b-bc1 /2013 Family Practice 9-847064283 & and 95d [facility] REFILL [id number] 01/15 01/15 [facility]gron 39-4820-874 /2013 Family Practice b-7962l6316 & and 193 [facility] REFILL [id number] 01/15 01/15 [facility] 0c-4163-be3 /2013 Family Practice b-85r0jojnu & and 958 [facility] REFILL [id number] 01/15 01/15 [facility] 5b-81b4-16y /2013 Family Practice b-67j474a25 & and e47 [facility] REFILL [id number] 01/15 01/15 [facility] ea-6rj1-2a6 /2013 Family Practice 7-4048g08n2 & and 3c8 [facility] REFILL [id number] 01/15 01/15 [facility] e9-31b1-wng /2013 Family Practice 5-b84o85829 & and 035 [facility] REFILL [id number] 01/15 01/15 [facility] b8-4031-a1a /2013 Family Practice 4-i6x564un5 & and d20 [facility] REFILL [id number] 01/15 01/15 [facility] 24-468c-8aa /2013 Family Practice b-s38du7cz7 & and 612 [facility] REFILL [id number] 01/15 01/15 [facility] 63-47af-836 /2013 Family Practice 3-1vft73p14 & and 4f3 [facility] REFILL [id number] 01/15 01/15 [facility] 57-9q19-w3r /2013 Family Practice 6-8ms1l7478 & and 466 [facility] REFILL [id number] 01/15 01/15 [facility] 1f-2s3q-116 /2013 Family Practice 1-1l5254034 & and 872 [facility] REFILL [id number] 01/15 01/15 [facility] 27-439c-855 /2013 Family Practice c-r6ri1v2i3 & and c4d [facility] REFILL [id number] 01/15 01/15 [facility] 2e-4896-ba2 /2013 Family Practice 4-1e6f49xg2 & and cd6 [facility] REFILL [id number] 01/15 01/15 [facility] 72-83f6-7o8 /2013 Family Practice 1-0m5381i5h & and ec5 [facility] REFILL [id number] 01/15 01/15 [facility] 56-45ef-950 /2013 Family Practice 2-351s02cw5 & and 1e3 [facility] REFILL [id number] 01/15 01/15 [facility] 29-4070-9c4 /2013 Family Practice b-7u2qwh0fb & and 4b8 [facility] REFILL [id number] 01/15 01/15 [facility] eb-3c4p-m97 /2013 Family Practice e-73190yu81 & and d61 [facility] REFILL [id number] 01/15 01/15 [facility] 9f-44ad-ac9 /2013 Family Practice 3-zw1t96357 & and 9b4 [facility] REFILL [id number] 01/15 01/15 [facility] b5-4faf-8a9 /2013 Family Practice 2-s3tclch8k & and b58 [facility] REFILL [id number] 01/15 01/15 [facility] 72-4882-bcb /2013 Family Practice 0-115ir0wt8 & and a73 [facility] REFILL [id number] 01/15 01/15 [facility] 18-8k3s-b38 /2013 Family Practice a-b4ti8n108 & and 37b [facility] REFILL [id number] 01/15 01/15 [facility] 71-46dd-bbb /2013 Family Practice 8-31gii43h4 & and c45 [facility] REFILL [id number] 01/15 01/15 [facility] c6-427e-91d /2013 Family Practice 5-04v1664zn & and 301 [facility] REFILL [id number] 01/15 01/15 [facility] f6-5b24-851 /2013 Family Practice 0-436593n67 & and e25 [facility] REFILL [id number] 01/15 01/15 [facility] ab-4931-83a /2013 Family Practice d-659db45z2 & and 9c2 [facility] REFILL [id number] 01/15 01/15 [facility] 1a-4099-81e /2013 Family Practice a-95sxkoz18 & and 568 [facility] REFILL [id number] 01/15 01/15 [facility] 27-02r6-h0b /2013 Family Practice f-03k5j0z5z & and 15f [facility] REFILL [id number] 01/15 01/15 [facility] b2-5e14-694 /2013 [facility] Practice 2-9s20f8x3e & and e76 [facility] REFILL [id number] 01/15 01/15 [facility] e2-439e-ac5 /2013 Family Practice e-7e1ttjy3u & and f11 [facility] REFILL [id number] 01/15 01/15 [facility] e4-2u04-y73 /2013 Family Practice c-3041nm708 & and f94 [facility] REFILL [id number] 01/15 01/15 [facility] d7-3v07-741 /2013 Family Practice 5-l5lzd23gc & and d2c [facility] REFILL [id number] 01/15 01/15 [facility] d3-6i22-142 /2013 Family Practice b-99d797u75 & and 5c8 [facility] REFILL [id number]-x5 01/15 01/15 [facility] aa-1fc3-dd3 /2013 Family Practice a-a5rik3221 & and 828 [facility] REFILL [id number] 01/15 01/15 [facility] 2c-5q2w-43x /2013 Family Practice d-0wy8g7364 & and 504 [facility] REFILL [id number] 01/15 01/15 [facility] 2c-5rd8-s77 /2013 Family Practice f-6861m4qoa & and 8cb [facility] REFILL [id number] 01/15 01/15 [facility] 5e-3ew2-v1o /2013 Family Practice 7-353j24ah9 & and 07e [facility] REFILL [id number] 01/15 01/15 [facility] ab-4cec-8cb /2013 Family Practice 3-thf8h7pwn & and 2e3 [facility] REFILL [id number]-8z 01/15 01/15 [facility] b1-451d-b9d /2013 Family Practice 8-99v85vf78 & and bc5 [facility] REFILL [id number] 01/15 01/15 [facility] 64-422a-85b /2013 Family Practice 2-156y021i3 & and 7e4 [facility] REFILL [id number] 01/15 01/15 [facility] Negron 4f-407d-813 /2013 Family Practice c-19x0zo51d & and 469 [facility] REFILL [id number] 01/15 01/15 [facility] Ne[facility] b2-462e-bb0 /2013 Family Practice f-[id number] & and 17c [facility] REFILL [id number] 01/15 01/15 [facility] a7-4baa-8c7 /2013 Family Practice 0-760cmx48p & and f87 [facility] REFILL [id number] 01/15 01/15 [facility] Negron 4b-4903-8a5 /2013 Family Practice a-9abz24761 & and 158 [facility] REFILL [id number] 01/15 01/15 [facility] Negr[facility] fd-453e-a50 /2013 Family Practice b-8m2630578 & and e97 [facility] Prior Auth [id number] 01/16 01/16 [facility] Negron fa-435c-83e /2013 Family Practice 8-uo17565ab & and 313 [facility] Prior Auth [id number] 01/16 01/16 [facility] e9-26a7-e0u /2013 Family Practice f-049314z37 & and 467 [facility] Prior Auth [id number] 01/16 01/16 [facility] 01-2x11-23v /2013 Family Practice a-4352i530z & and f4e [facility] Prior Auth [id number] 01/16 01/16 [facility] Negron 86-440d-82a /2013 Family Practice 3-w7114072n & and 8f9 [facility] Prior Auth [id number] 01/16 01/16 [facility] af-7v90-n00 /2013 [facility] Practice 8-0wprua8k3 & and 351 [facility] Prior Auth [id number] 01/16 01/16 [facility] Negron 79-4457-b74 /2013 Family Practice 4-633e5zg37 & and 2dd [facility] Prior Auth [id number] 01/16 01/16 [facility] Negron c7-4296-b2f /2013 Family Practice 7-1685j369d & and 106 [facility] Prior Auth [id number] 01/16 01/16 [facility] Negr[facility] 00-489d-a7b /2013 Family Practice 9-b261ev2ab & and 8f5 [facility] Prior Auth [id number] 01/16 01/16 [facility] d8-7p86-ga6 /2013 Family Practice f-wm29448r7 & and 313 [facility] Prior Auth [id number] 01/16 01/16 [facility] 4b-51f9-ev2 /2013 Family Practice a-31u639708 & and 463 [facility] Prior Auth [id number] 01/16 01/16 [facility] 25-4px9-fa8 /2013 Family Practice c-[id number] & and aa6 [facility] Prior Auth [id number] 01/16 01/16 [facility] Ne[facility] b4-4250-bd2 /2013 Family Practice 5-u19r08128 & and 9f5 [facility] Prior Auth [id number] 01/16 01/16 [facility] 32-7gu5-xa8 /2013 Family Practice 7-m51xj5829 & and 4a2 [facility] Prior Auth [id number] 01/16 01/16 [facility] Negr[facility] 91-4211-829 /2013 Family Practice 5-12k26c04d & and 1b1 [facility] Prior Auth [id number] 01/16 01/16 [facility] 32-456c-bcb /2013 Family Practice 5-t2x113b5k & and 9aa [facility] Prior Auth [id number] 01/16 01/16 [facility] 54-4435-aff /2013 Family Practice d-wcu4140e2 & and 057 [facility] Prior Auth [id number] 01/16 01/16 [facility] 51-461d-ba3 /2013 Family Practice c-c4o76guh7 & and d2b [facility] Prior Auth [id number] 01/16 01/16 [facility] f5-5kk1-i62 /2013 Family Practice 5-76ctmn13m & and b8e [facility] Prior Auth [id number] 01/16 01/16 [facility] a7-48aa-8fc /2013 Family Practice 8-6756u6112 & and c11 [facility] Prior Auth [id number] 01/16 01/16 [facility] Negr[facility] 8e-4651-bde /2013 Family Practice 2-ukv24r7ol & and 93d [facility] Prior Auth [id number] 01/16 01/16 [facility] Negr[facility] fa-4383-a4d /2013 Family Practice 5-7971832ia & and 5c8 [facility] Prior Auth [id number] 01/16 01/16 [facility] Ne[facility] eb-4360-b2a /2013 Family Practice 8-g8713410o & and 106 [facility] Prior Auth [id number] 01/16 01/16 [facility] Ne[facility] 14-447c-b53 /2013 [facility] Practice 9-2t0361r83 & and b99 [facility] Prior Auth [id number] 01/16 01/16 [facility] 02-48cb-9da /2013 Family Practice 3-g9458u764 & and 603 [facility] Prior Auth [id number] 01/16 01/16 [facility] ab-6y70-103 /2013 Family Practice 0-9b6573731 & and 4cd [facility] Prior Auth [id number] 01/16 01/16 [facility] 15-4adb-b1a /2013 Family Practice 4-769581ags & and fe6 [facility] Prior Auth [id number] 01/16 01/16 [facility] d3-4ecd-bbc /2013 Family Practice 5-f1wnrf391 & and 303 [facility] Prior Auth [id number] 01/16 01/16 [facility] ae-48bf-a31 /2013 Family Practice 7-85uhh6ey1 & and 210 [facility] Prior Auth [id number] 01/16 01/16 [facility] c7-44af-9d6 /2013 Family Practice 4-9k6i1861q & and 23e [facility] Prior Auth [id number] 01/16 01/16 [facility] 25-487b-9df /2013 Family Practice a-r710o356u & and 48d [facility] Prior Auth [id number] 01/16 01/16 [facility] 53-47y3-q35 /2013 Family Practice 5-7uid2924u & and 026 [facility] Prior Auth [id number] 01/16 01/16 [facility] d2-54b2-897 /2013 [facility] Practice 6-2d2v4t911 & and 2f7 [facility] Prior Auth [id number] 01/16 01/16 [facility] b8-5l4k-127 /2013 Family Practice 7-3tdp25988 & and 5b0 [facility] Prior Auth [id number] 01/16 01/16 [facility] Negr[facility] 8c-2o66-d16 /2013 Family Practice 3-606v098jw & and 54a [facility] Prior Auth [id number] 01/16 01/16 [facility] 31-75k5-a1y /2013 Family Practice 9-8piu4120i & and e62 [facility] Prior Auth [id number] 01/16 01/16 [facility] 25-0l60-a57 /2013 Family Practice 4-81xe72531 & and b2a [facility] Prior Auth [id number] 01/16 01/16 [facility] 65-3oj8-a87 /2013 [facility] Practice 0-5k1896tsm & and 4bc [facility] Prior Auth [id number] 01/16 01/16 [facility] dd-50y0-936 /2013 Family Practice d-7601988m4 & and 0c3 [facility] Prior Auth [id number] 01/16 01/16 [facility] e0-4970-ad8 /2013 Family Practice 6-f236180l2 & and 18a [facility] Prior Auth [id number] 01/16 01/16 [facility] ab-8c75-yk3 /2013 Family Practice c-2ok20lkk2 & and 309 [facility] Prior Auth [id number] 01/16 01/16 [facility] f1-4609-bad /2013 Family Practice 0-3r18y8390 & and 026 [facility] Prior Auth [id number] 01/16 01/16 [facility] 67-5s6o-y4u /2013 Family Practice 7-8sel7z714 & and 2c8 [facility] Prior Auth [id number] 01/16 01/16 [facility] ef-441c-8aa /2013 Family Practice d-3526763t3 & and 91f [facility] Prior Auth [id number] 01/16 01/16 [facility] 5b-4ffe-85d /2013 Family Practice 1-5b4o75887 & and 3dc [facility] Prior Auth [id number] 01/16 01/16 [facility] 6a-45eb-9f9 /2013 [facility] Practice d-8a33r0420 & and 8cd [facility] Prior Auth [id number] 01/16 01/16 [facility] 12-1bi0-j01 /2013 [facility] Practice 1-97f4x963n & and 3bf [facility] Prior Auth [id number] 01/16 01/16 [facility] af-0xv7-339 /2013 Family Practice 6-5853ey0j3 & and 0b0 [facility] Prior Auth [id number] 01/16 01/16 [facility] 62-4ebc-9fb /2013 Family Practice 4-221d7uom8 & and bbe [facility] Prior Auth [id number] 01/16 01/16 [facility] 69-404d-af5 /2013 Family Practice 8-0yv788xk8 & and 6d5 [facility] STOMACH PAIN [id number] 01/29 01/29 [facility] db-7u84-n00 /2013 [facility] Practice 9-o8g8of9a4 & and 1ec [facility] ST[facility] [id number] 01/29 01/29 [facility] aa-4347-9bc /2013 [facility] Practice 8-2x0xm20nj & and 221 [facility] STOMACH [facility] [id number] 01/29 01/29 [facility] 22-470e-86b /2013 Family Practice e-fj7g477u4 & and 091 [facility] STOMACH [facility] [id number] 01/29 01/29 [facility] 40-09a4-m5j /2013 Family Practice 6-yb8348y74 & and 51b [facility] STOMACH [facility] [id number] 01/29 01/29 [facility] 3e-8yl6-r48 /2013 Family Practice b-48p9779n5 & and a98 [facility] STOMACH [facility] [id number]-pv 01/29 01/29 [facility] 46-6a53-uw9 /2013 Family Practice 2-12430bb37 & and 57c [facility] STOM[facility] [id number] 01/29 01/29 [facility] 1d-84k0-sku /2013 Family Practice 1-h052gb95k & and 9df [facility] [id number] 01/29 01/29 [facility] 48-4232-959 /2013 Family Practice d-33982ud45 & and f8b [facility] STOMACH PAIN [id number] 01/29 01/29 [facility] bc-5xe2-43y /2013 [facility] Practice 7-s7soyt9g1 & and a7c [facility] STOMACH PAIN [id number] 01/29 01/29 [facility] 5e-1s97-3at /2013 Family Practice 7-6wuscp617 & and e3a [facility] STOMACH PAIN [id number] 01/29 01/29 [facility] 97-4495-a37 /2013 Family Practice 6-44q26ba98 & and 5b3 [facility] [id number] 01/29 01/29 [facility] d2-4082-932 /2013 Family Practice 8-42buwk332 & and ab0 [facility] [id number] 01/29 01/29 [facility] 92-4015-87e /2013 Family Practice d-97933qwv8 & and 4ee [facility] STOMACH [facility] [id number] 01/29 01/29 [facility] a2-406d-a9c /2013 Family Practice 4-5805fh12x & and 63f [facility] STOMACH PAIN [id number] 01/29 01/29 [facility] 94-47ba-84c /2013 Family Practice 9-m5ws97k83 & and 0a4 [facility] STOMACH PAIN [id number] 01/29 01/29 [facility] 86-4304-9e3 /2013 Family Practice b-1bap25j61 & and 93b [facility] STOMACH [facility] [id number] 01/29 01/29 [facility] 77-460d-b01 /2013 [facility] Practice 8-81166dv7w & and b18 [facility] [id number] 01/29 01/29 [facility] 7b-4899-a09 /2013 Family Practice 2-c26975m35 & and 3bc [facility] STOMACH [facility] [id number] 01/29 01/29 [facility] ca-4907-bd4 /2013 Family Practice 3-7569755o5 & and 49e [facility]OM[facility] [id number] 01/29 01/29 [facility] 87-4177-b21 /2013 Family Practice b-7r44l8cvh & and 804 [facility] [id number] 01/29 01/29 [facility] a6-488c-8c2 /2013 Family Practice b-sa2044029 & and arnold [facility] STOMACH [facility] [id number] 01/29 01/29 [facility] 8e-57k1-f35 /2013 Family Practice 3-8203ca9ga & and d7e [facility] STOMACH [facility] [id number] 01/29 01/29 [facility] f3-46ba-b26 /2013 [facility] Practice 0-8i8wj6w85 & and 59e [facility] ST[facility]ACH [facility] [id number] 01/29 01/29 [facility] 8a-69e7-7kw /2013 Family Practice 3-rl52x8ua1 & and da5 [facility] [id number] 01/29 01/29 [facility] 49-0o3a-p87 /2013 Family Practice 3-55u35848a & and f7c [facility] [id number] 01/29 01/29 [facility] [place] [id number] /2013 Family Practice [id number] & and d9f [facility] [id number] 01/29 01/29 [facility] [place] [id number] /2013 Family Practice [id number] & and 30a [facility] [id number] 01/29 01/29 [facility] [place] [id number] /2013 Family Practice [id number] & and 405 [facility] [id number] 01/29 01/29 [facility] [place] [id number] /2013 Family Practice [id number] & and 1d1 [facility] [id number] 01/29 01/29 [facility] [facility] e7-4045-bb4 /2013 [facility] f-367yf90b2 & and d5c [facility] [id number] 01/29 01/29 [facility] 4d-4059-b54 /2013 [facility] Practice 9-98k328w24 & and 619 [facility] [id number] 01/29 01/29 [facility] 5a-2e19-ru0 /2013 Family Practice 4-86z899b98 & and fb2 [facility] [id number] 01/29 01/29 [facility] e4-4318-89e /2013 [facility] Practice 7-4l8634s63 & and 43f [facility] [id number] 01/29 01/29 [facility] 25-97m3-2g7 /2013 Family Practice e-52x191h6z & and 65e [facility] [id number] 01/29 01/29 [facility] c4-4360-85d /2013 Family Practice e-894119w26 & and 521 [facility] [id number] 01/29 01/29 [facility] f8-4afc-945 /2013 Family Practice 9-x447814f1 & and 416 [facility] [id number] 01/29 01/29 [facility] 6e-5f78-l37 /2013 Family Practice a-o25f8n4u4 & and add [facility] [id number] 01/29 01/29 [facility] 86-1hr4-399 /2013 Family Practice f-7388h6a02 & and 68c [facility] [id number] 01/29 01/29 [facility] f9-4526-9d3 /2013 Family Practice f-28nc29s21 & and 4af [facility] [id number] 01/29 01/29 [facility] 69-94d5-9t5 /2013 Family Practice f-vb89kl53u & and 2f4 [facility] [id number] 01/29 01/29 [facility] 20-40c7-776 /2013 Family Practice 9-48syqo9m0 & and b84 [facility] [id number] 01/29 01/29 [facility] 54-94a2-933 /2013 Family Practice 4-l406ds81n & and 0f0 [facility] [id number] 01/29 01/29 [facility] 95-47fa-883 /2013 Family Practice f-504n1qk46 & and b3c [facility] [id number] 01/29 01/29 [facility] 46-416c-a52 /2013 Family Practice 5-42vv950gy & and baa [facility] [id number] 01/29 01/29 [facility] 31-9r60-8w0 /2013 Family Practice a-h37mn56s8 & and 91e [facility] [id number] 01/29 01/29 [facility] 12-453d-bde /2013 Family Practice f-20p33a1v3 & and 3c3 [facility] Unknown [id number] 01/30 01/30 [facility] 6c-4454-a20 /2013 Family Practice a-z95g57g17 & and 26a [facility] Unknown [id number] 01/30 01/30 [facility] 47-4fdc-a41 /2013 Family Practice 1-1q5zz146u & and f44 [facility] Unknown [id number] 01/30 01/30 [facility] a9-4850-874 /2013 Family Practice f-0211c2f2z & and 11c [facility] Unknown [id number] 01/30 01/30 [facility] 0e-7k17-r79 /2013 Family Practice e-79q482l4e & and fbe [facility] Unknown [id number] 01/30 01/30 [facility] c3-460c-9b2 /2013 Family Practice 7-4n9xt230f & and 475 [facility] Unknown [id number] 01/30 01/30 [facility] 43-43ce-b36 /2013 Family Practice [id number] & and 9e5 [facility] [id number] 01/30 01/30 [facility] 4b-57v1-789 /2013 Family Practice 8-x62e6t1dm & and c21 [facility] Unknown [id number] 01/30 01/30 [facility] 20-4fbb-80a /2013 Family Practice f-s680ju0a2 & and edc [facility] Unknown [id number] 01/30 01/30 [facility] 7b-22s2-927 /2013 Family Practice 5-83463h351 & and bfc [facility] Unknown [id number] 01/30 01/30 [facility] 2c-4546-899 /2013 Family Practice e-5s13mq6n0 & and 716 [facility] Unknown [id number] 01/30 01/30 [facility] 74-8ln3-926 /2013 Family Practice 5-9565dsd26 & and 361 [facility] Unknown [id number] 01/30 01/30 [facility] 1f-4932-928 /2013 Family Practice 8-p69s6ph57 & and 9cb [facility] [id number] 01/30 01/30 [facility] 8c-2f01-7qc /2013 Family Practice c-45b9k1zp0 & and e1f [facility] [id number] 01/30 01/30 [facility] c3-6e4p-e9z /2013 Family Practice e-w212sd0t8 & and 65b [facility] Unknown [id number] 01/30 01/30 [facility] f3-71y1-1v6 /2013 Family Practice d-xkm21ge8d & and 2fa [facility] [id number] 01/30 01/30 [facility] 17-34o5-01o /2013 Family Practice 1-03561010u & and 186 [facility] Unknown [id number] 01/30 01/30 [facility] eb-17x0-843 /2013 Family Practice 2-o996mu00l & and 463 [facility] [id number] 01/30 01/30 [facility] 01-4097-a3f /2013 Family Practice 7-8n78y2yln & and 76c [facility] Unknown [id number] 01/30 01/30 [facility] 5f-96x9-3qe /2013 Family Practice 3-82bjlq30w & and 0e6 [facility] Unknown [id number] 01/30 01/30 [facility] 26-437f-a2e /2013 Family Practice 8-14e039402 & and 83f [facility] Unknown [id number] 01/30 01/30 [facility] 00-0y1b-2f2 /2013 Family Practice d-[id number] & and 241 [facility] Unknown [id number] 01/30 01/30 [facility] aa-484c-b72 /2013 Family Practice f-72xz645f2 & and 094 [facility] Unknown [id number] 01/30 01/30 [facility] 73-3t82-98d /2013 [facility] Practice 1-2v8119yo8 & and 41c [facility] Unknown [id number] 01/30 01/30 [facility] 4d-2t9d-d71 /2013 [facility] Practice d-032um1q43 & and c3b [facility] Unknown [id number] 01/30 01/30 [facility] bf-8mj6-1l0 /2013 [facility] Practice 3-t74i91255 & and 44e [facility] Unknown [id number] 01/30 01/30 [facility] 4b-4176-b5a /2013 Family Practice d-2ja7c25o9 & and 511 [facility] Unknown [id number] 01/30 01/30 [facility] a0-4961-920 /2013 Family Practice c-8x790i3tk & and a7e [facility] Unknown [id number] 01/30 01/30 [facility] 27-21n1-djj /2013 Family Practice b-xy82d568w & and 988 [facility] Unknown [id number] 01/30 01/30 [facility] fd-45fb-81d /2013 Family Practice f-[id number] & and ee2 [facility] Unknown [id number] 01/30 01/30 [facility] 8a-68s3-o1e /2013 Family Practice 1-0wj48f101 & and fb7 [facility] Unknown [id number] 01/30 01/30 [facility] e8-4980-b20 /2013 Family Practice 0-otn4z01xs & and 792 [facility] Unknown [id number] 01/30 01/30 [facility] 3e-408e-ba9 /2013 [facility] Practice 3-7tg6msy30 & and 87d [facility] Unknown [id number] 01/30 01/30 [facility] 79-429f-a57 /2013 [facility] Practice 3-j2cc0x994 & and 14c [facility] Unknown [id number] 01/30 01/30 [facility] dc-8e41-915 /2013 Family Practice [id number] & and e3d [facility] Unknown [id number] 01/30 01/30 [facility] bc-6o03-4ww /2013 Family Practice 6-19o56wb13 & and 393 [facility] Unknown [id number] 01/30 01/30 [facility] 13-0r7r-102 /2013 Family Practice e-zd78l91l6 & and 6d4 [facility] Unknown [id number] 01/30 01/30 [facility] 85-4719-a2e /2013 Family Practice 2-sp77t61dk & and 615 [facility] Unknown [id number] 01/30 01/30 [facility] 71-481d-946 /2013 Family Practice 2-092575q52 & and a59 [facility] Unknown [id number] 01/30 01/30 [facility] a7-8zk3-29m /2013 Family Practice 1-70938v38p & and 0b0 [facility] Unknown [id number] 01/30 01/30 [facility] 2e-3y76-a71 /2013 Family Practice 0-446xa8486 & and 82c [facility] Unknown [id number] 01/30 01/30 [facility] bf-5o12-x70 /2013 Family Practice 8-fu6i8m5ki & and 42e [facility] Unknown [id number] 01/30 01/30 [facility] a3-5e70-797 /2013 Family Practice 1-f95fh2v89 & and aa2 [facility] Unknown [id number] 01/30 01/30 [facility] 24-0pi8-561 /2013 Family Practice a-7u428t429 & and ff1 [facility] Unknown [id number] 01/30 01/30 [facility] 7d-25x3-b24 /2013 Family Practice 4-gg1c7opy4 & and 6c8 [facility] Unknown [id number] 01/30 01/30 [facility] 0e-426d-bba /2013 Family Practice c-733m457y1 & and bab [facility] Unknown [id number] 01/30 01/30 [facility] d8-4656-9a0 /2013 Family Practice b-[id number] & and 6c1 [facility] Unknown [id number] 01/30 01/30 [facility] 80-4923-a17 /2013 Family Practice 3-8006iyze4 & and d59 [facility] Unknown [id number] 01/30 01/30 [facility] 11-05d9-7k5 /2013 Family Practice a-w98w32s37 & and 4eb [facility] Test results [id number] 01/30 01/30 [facility] d5-7n54-0s2 /2013 Family Practice b-m37972t57 & and b4e [facility] Test results [id number] 01/30 01/30 [facility] 58-1q0v-ih1 /2013 [facility] Practice d-sb10kl202 & and 7e8 [facility] Test results [id number] 01/30 01/30 [facility] a2-4547-a1d /2013 Family Practice 8-q4j9650o9 & and 8f9 [facility] Test results [id number] 01/30 01/30 [facility] 1e-4602-b35 /2013 Family Practice a-255g35178 & and 133 [facility] Test results [id number] 01/30 01/30 [facility] 74-4008-b23 /2013 [facility] Practice 3-1657i19c9 & and 91e [facility] Test results [id number] 01/30 01/30 [facility] ba-4dbb-b14 /2013 Family Practice e-3wt406x29 & and bab [facility] Test results [id number] 01/30 01/30 [facility] 7c-4fbc-b4c /2013 Family Practice 3-63856v46y & and 86c [facility] Test results [id number] 01/30 01/30 [facility] ec-1g2g-k72 /2013 Family Practice c-4f219m5dr & and 462 [facility] Test results [id number] 01/30 01/30 [facility] 4f-35c5-51d /2013 Family Practice 9-c4r6frxcl & and 1c0 [facility] Test results [id number] 01/30 01/30 [facility] bd-4125-932 /2013 Family Practice 3-408090c66 & and 0ab [facility] Test results [id number] 01/30 01/30 [facility] 84-4bdc-826 /2013 Family Practice 2-63pt6cr80 & and 04f [facility] Test results [id number] 01/30 01/30 [facility] e4-460d-b48 /2013 Family Practice a-s111v5f52 & and 50a [facility] Test results [id number] 01/30 01/30 [facility] ce-3c8b-gh3 /2013 Family Practice 7-c1544g467 & and 8a2 [facility] Test results [id number] 01/30 01/30 [facility] 7a-0g89-440 /2013 Family Practice 6-89g177xxd & and 904 [facility] Test results [id number] 01/30 01/30 [facility] 1a-42bd-aa8 /2013 Family Practice d-ep91490k4 & and c3c [facility] Test results [id number] 01/30 01/30 [facility] ad-14p9-736 /2013 Family Practice 0-t08v76970 & and 9a3 [facility] Test results [id number] 01/30 01/30 [facility] 87-0z1f-3le /2013 [facility] Practice c-8z2t25n50 & and c3c [facility] Test results [id number] 01/30 01/30 [facility] bd-427e-97a /2013 Family Practice 8-370deddcd & and 1cd [facility] Test results [id number] 01/30 01/30 [facility] 62-4710-84e /2013 Family Practice a-3jq607986 & and e66 [facility] Test results [id number] 01/30 01/30 [facility] 95-4259-joselyn /2013 Family Practice a-mi44s4105 & and f36 [facility] Test results [id number] 01/30 01/30 [facility] f4-0l02-12r /2013 Family Practice f-643y68zny & and 54f [facility] Test results [id number] 01/30 01/30 [facility] 49-4v1e-67u /2013 Family Practice 6-g811s93l9 & and dfb [facility] Test results [id number] 01/30 01/30 [facility] 47-4t11-640 /2013 Family Practice 2-62x951854 & and performance instructor [facility] Test results [id number] 01/30 01/30 [facility] 6c-402d-9d5 /2013 Family Practice 8-tezkh0823 & and bfd [facility] Test results [id number] 01/30 01/30 [facility] e2-6i70-6xg /2013 Family Practice f-v7w1357jn & and 3ce [facility] Test results [id number] 01/30 01/30 [facility] 00-4c30-7ft /2013 Family Practice 3-34952z1k9 & and a51 [facility] Test results [id number] 01/30 01/30 [facility] 5a-41cb-893 /2013 Family Practice 9-53596qt9x & and 99b [facility] Test results [id number] 01/30 01/30 [facility] f7-4cbe-9d4 /2013 Family Practice 6-81lyli367 & and 85f [facility] Test results [id number] 01/30 01/30 [facility] 52-48fb-a52 /2013 Family Practice a-360s08208 & and 746 [facility] Test results [id number] 01/30 01/30 [facility] 80-4662-a77 /2013 Family Practice 2-638949d36 & and 83f [facility] Test results [id number] 01/30 01/30 [facility] 1e-4309-8b7 /2013 Family Practice c-rw5181a39 & and 64b [facility] Test results [id number] 01/30 01/30 [facility] 99-1el8-g47 /2013 Family Practice b-l9ic6dz22 & and 3c2 [facility] Test results [id number] 01/30 01/30 [facility] db-6uf3-j53 /2013 Family Practice e-a2857y85w & and 0e4 [facility] Test results [id number] 01/30 01/30 [facility] 81-4188-9aa /2013 Family Practice e-p507gii8z & and 049 [facility] Test results [id number] 01/30 01/30 [facility] 58-5m76-no3 /2013 [facility] Practice 2-tt513764o & and 3c1 [facility] Test results [id number] 01/30 01/30 [facility] ca-0l56-fi1 /2013 Family Practice e-q7n1g0l23 & and 5f7 [facility] Test results [id number] 01/30 01/30 [facility] cb-1x7e-s85 /2013 Family Practice 3-g5g544s98 & and a5c [facility] Test results [id number] 01/30 01/30 [facility] a4-4092-93d /2013 Family Practice 0-p6016lu84 & and fbb [facility] Test results [id number] 01/30 01/30 [facility] 56-57w1-qk3 /2013 Family Practice a-18u742689 & and 6a0 [facility] Test results [id number] 01/30 01/30 [facility] c9-0z3q-268 /2013 Family Practice f-262381g0s & and 72d [facility] Test results [id number] 01/30 01/30 [facility] e3-37i4-0ex /2013 Family Practice 2-c9s811801 & and dc1 [facility] Test results [id number] 01/30 01/30 [facility] de-8g0y-421 /2013 Family Practice b-b71x8ze0b & and c20 [facility] Test results [id number] 01/30 01/30 [facility] 4e-7p7j-m07 /2013 Family Practice 2-w7pl07aka & and ff2 [facility] Test results [id number] 01/30 01/30 [facility] 31-488f-939 /2013 Family Practice b-xfn603022 & and e42 [facility] Test results [id number] 01/30 01/30 [facility] 31-45j4-3e1 /2013 Family Practice d-q6lr9v98n & and d16 [facility] Test results [id number] 01/30 01/30 [facility] ce-4c6j-780 /2013 Family Practice 1-a139le568 & and e67 [facility] Test results [id number] 01/30 01/30 [facility] 63-4317-aff /2013 Family Practice d-qyz86m3ym & and 40b [facility] [id number] Lonnie Marie, 02/01 02/01 Jay [id number] /2013 [facility] [id number] Lnonie Marie, 02/20 02/20 Jay [id number] /2013 [facility] Visit [id number] Lonnie Marie, 03/08 03/08 Jay [id number] /2013 [facility] Bad Cough [id number] 03/08 03/08 [facility] 58-4291-8a1 /2013 Family Practice 3-o022m96uv & and c9c [facility] Bad Cough [id number] 03/08 03/08 [facility] d6-4455-bf5 /2013 Family Practice 4-ybv39y105 & and eba [facility] Bad Cough [id number] 03/08 03/08 [facility] 5c-4153-a08 /2013 Family Practice 7-71k651i1c & and 1f5 [facility] Bad Cough [id number] 03/08 03/08 [facility] 2f-04q0-797 /2013 Family Practice 0-m3g88dpf6 & and 5f9 [facility] Cough [id number] 03/08 03/08 [facility] cf-44cb-890 /2013 Family Practice 0-i71g389ap & and 893 [facility] Bad Cough [id number] 03/08 03/08 [facility] 62-3tx7-291 /2013 Family Practice 5-250h5bift & and 485 [facility] Bad Cough [id number] 03/08 03/08 [facility] e0-43bf-832 /2013 Family Practice 6-e0psy7010 & and performance instructor [facility] Cough [id number] 03/08 03/08 [facility] 36-4bfd-9d1 /2013 Family Practice b-z4n1ldwn2 & and 8da [facility] Bad Cough [id number] 03/08 03/08 [facility] af-4679-988 /2013 Family Practice b-5187eafaa & and 168 [facility] Cough [id number] 03/08 03/08 [facility] a7-8g81-k75 /2013 Family Practice 7-j0v64xt6u & and 9d0 [facility] Cough [id number] 03/08 03/08 [facility] 55-31p4-700 /2013 Family Practice 6-tu462k31h & and b12 [facility] Cough [id number] 03/08 03/08 [facility] 24-4911-842 /2013 Family Practice b-5799200sa & and e4f [facility] Cough [id number] 03/08 03/08 [facility] e4-4989-8a8 /2013 Family Practice f-a637j91f1 & and c09 [facility] Bad Cough [id number] 03/08 03/08 [facility] 7a-41df-97c /2013 Family Practice 4-8v9926af1 & and 516 [facility] Bad Cough [id number] 03/08 03/08 [facility] e6-7v78-mv2 /2013 Family Practice 1-s57jxb945 & and 701 [facility] Cough [id number] 03/08 03/08 [facility] 61-4i72-x46 /2013 Family Practice 3-f1t98fjy2 & and b75 [facility] Cough [id number] 03/08 03/08 [facility] 1e-4ebe-84c /2013 Family Practice d-86345w848 & and 2dc [facility] Cough [id number] 03/08 03/08 [facility] 6e-88b9-4y2 /2013 Family Practice b-4v3m2k533 & and 8d3 [facility] Cough [id number] 03/08 03/08 [facility] 33-46db-ad9 /2013 Family Practice 7-v7r86951i & and 81d [facility] Cough [id number] 03/08 03/08 [facility] c4-2e0o-9b8 /2013 Family Practice a-2mwmtkx81 & and 2f7 [facility] Cough [id number] 03/08 03/08 [facility] 3d-90h3-w58 /2013 Family Practice b-y42jr0abf & and 3ad [facility] Cough [id number] 03/08 03/08 [facility] b5-410f-917 /2013 Family Practice 9-2gilwx767 & and 0a7 [facility] Cough [id number] 03/08 03/08 [facility] 5d-47bb-af9 /2013 Family Practice b-5a709lfh6 & and fc6 [facility] Bad Cough [id number] 03/08 03/08 [facility] 5c-467b-b7f /2013 Family Practice 5-i5cjd7y34 & and cd5 [facility] Cough [id number]-w4 03/08 03/08 [facility] 10-4452-82f /2013 Family Practice 2-2elr93103 & and 444 [facility] Cough [id number] 03/08 03/08 [facility] 90-8zz4-0d2 /2013 Family Practice c-sg765i47u & and 582 [facility] Bad Cough [id number] 03/08 03/08 [facility] b6-9zf7-161 /2013 Family Practice 0-9ka87g58c & and b00 [facility] Cough fz2o9w12-s8 03/08 03/08 [facility] 40-6u95-mu4 /2013 Family Practice f-kq4tt1m06 & and 9cc [facility] Cough [id number] 03/08 03/08 [facility] 9d-4010-b0c /2013 Family Practice 0-36kagq3j6 & and 3ee [facility] Cough [id number] 03/08 03/08 [facility] 1a-5u8y-5m8 /2013 Family Practice 4-q802h158y & and f52 [facility] Cough [id number]-y8 03/08 03/08 [facility] 41-4afe-b2c /2013 Family Practice 2-y2c6aa1u8 & and 765 [facility] Cough [id number] 03/08 03/08 [facility] e0-70k0-z21 /2013 Family Practice b-8bob20yf5 & and 2e7 [facility] Cough [id number] 03/08 03/08 [facility] 67-4226-97f /2013 Family Practice 5-8w7asd86b & and 9e2 [facility] Cough [id number] 03/08 03/08 [facility] 50-69u3-zg9 /2013 Family Practice 5-67akd485c & and 794 [facility] Cough 1gto88m7-89 03/08 03/08 [facility] d9-448a-95e /2013 Family Practice 5-o76d2u391 & and ad6 [facility] Cough [id number] 03/08 03/08 [facility] Negron [id number] /2013 Family Practice [id number] & and db2 [facility] Bad Cough [id number] 03/08 03/08 One[facility] Negron [id number] /2013 Family Practice [id number] & and 9b8 [facility] Bad Cough [id number] 03/08 03/08 One[facility] Negron [id number] /2013 Family Practice [id number] & and 0b6 [facility] [facility] [id number] 03/08 03/08 [facility] bc-4944-b27 /2013 Family Practice f-7ogp3s47j & and 113 [facility] [id number] 03/08 03/08 [facility] 9a-498d-9c8 /2013 Family Practice 9-r93r8nk61 & and 70c [facility] [facility] 13k7k3z2-k9 03/08 03/08 [facility] 74-4006-96b /2013 Family Practice 9-n76sr9105 & and 3c7 [facility] [facility] [id number] 03/08 03/08 [facility] c1-4add-afb /2013 Family Practice 6-07v19v257 & and 279 [facility] 2o3kwj42-p4 03/08 03/08 [facility] 26-3wr3-7wo /2013 Family Practice 9-bq867zi36 & and 4ed [facility] [facility] [id number] 03/08 03/08 [facility] a9-4p1h-k7l /2013 Family Practice d-8ex3y125h & and fd9 [facility] [facility] [id number] 03/08 03/08 [facility] c3-42ef-bd0 /2013 Family Practice 3-3040f5h4a & and 405 [facility] Visit [id number] Lonnie Marie, 03/20 03/20 Jay [id number] /2013 [facility] 350 [facility] REFILL [id number] 03/21 03/21 [facility] 52-2o88-828 /2013 Family Practice f-68hfdgp46 & and 0d5 [facility] [place] REFILL [id number] 03/21 03/21 [facility] a2-02w7-8a7 /2013 Family Practice 7-0j222z479 & and 1a1 [facility] [place] REFILL [id number] 03/21 03/21 [facility] 99-76l6-s54 /2013 Family Practice b-2m421g085 & and 2d6 [facility] [place] REFILL [id number] 03/21 03/21 [facility] 11-0n79-423 /2013 Family Practice 9-m73p6g2q9 & and 7fe [facility] [place] [facility]FILL [id number] 03/21 03/21 [facility] 4b-3q7l-861 /2013 Family Practice a-t41xv86rl & and 83d [facility] REFI[facility] [id number] 03/21 03/21 [facility] 92-1po2-2j3 /2013 Family Practice d-2200j764i & and 68a [facility] REFILL [id number] 03/21 03/21 [facility] 67-4c32-847 /2013 Family Practice f-11263rlu2 & and 870 [facility] REFILL [id number] 03/21 03/21 [facility] d8-4y5h-mf0 /2013 Family Practice d-57489lyn6 & and 6fb [facility] REFI[facility] [id number] 03/21 03/21 [facility] 63-4554-a19 /2013 Family Practice d-31866c3yj & and d65 [facility] [place] [facility] [id number]-48 03/21 03/21 [facility] 11-1q49-768 /2013 Family Practice f-9m7w43m3k & and 041 [facility] [place] [facility] [id number] 03/21 03/21 [facility] 25-10f5-w31 /2013 Family Practice 1-6093f19px & and d10 [facility] [place] [facility]LL [id number] 03/21 03/21 [facility] 62-45ea-a89 /2013 Family Practice 8-m911s06k2 & and e66 [facility] [place] [facility] [id number] 03/21 03/21 [facility] 61-4ma3-4z6 /2013 Family Practice d-9230cl815 & and 3d1 [facility] [place] [facility] [id number] 03/21 03/21 [facility] cb-4600-a74 /2013 Family Practice 9-6w9j3603t & and 810 [facility] [place] [facility] [id number] 03/21 03/21 [facility] 33-42be-810 /2013 Family Practice b-ny0k53335 & and 073 [facility] [place] [facility] [id number] 03/21 03/21 [facility] 0d-4196-873 /2013 Family Practice a-9494q8m28 & and 70b [facility] [place] [facility] [id number] 03/21 03/21 [facility] b1-4259-b7f /2013 Family Practice 9-t12hq60w9 & and 276 [facility] [place] [facility] [id number] 03/21 03/21 [facility] 39-4514-8dd /2013 Family Practice f-6v20t3ub8 & and 043 [facility] [place] [facility] [id number] 03/21 03/21 [facility] f4-435d-a93 /2013 Family Practice 0-a9ces1329 & and cd9 [facility] [place] [facility] [id number] 03/21 03/21 [facility] 2b-8e5u-zi8 /2013 Family Practice 6-j920m783q & and 96d [facility] [place] [facility] [id number]-g8 03/21 03/21 [facility] 68-5ry9-zcs /2013 Family Practice e-vv300634w & and d85 [facility] [place] [facility] [id number] 03/21 03/21 [facility] 59-21b0-059 /2013 Family Practice 8-5a80jr26v & and 87c [facility] RE[facility] [id number] 03/21 03/21 [facility] 7c-3x51-y40 /2013 Family Practice a-zf1436i20 & and d5c [facility] [place] [facility] [id number] 03/21 03/21 [facility] bf-486e-a6f /2013 Family Practice 7-61cxj3002 & and d8f [facility] RE[facility] [id number] 03/21 03/21 [facility] 6d-4734-97f /2013 Family Practice 9-65871e777 & and f92 [facility] [place] [facility] [id number] 03/21 03/21 [facility] 56-4039-ba8 /2013 Family Practice f-8758nj82t & and a5d [facility] [place] [facility] [id number] 03/21 03/21 [facility] 17-4bae-819 /2013 Family Practice 0-5u661he60 & and db2 [facility] [place] [facility] [id number] 03/21 03/21 [facility] 25-4550-98d /2013 Family Practice 7-19m634gh5 & and 952 [facility] [place] [facility] [id number] 03/21 03/21 [facility] 88-4fad-bd9 /2013 Family Practice f-28x6u97p7 & and 32c [facility] [place] [facility] [id number] 03/21 03/21 [facility] 7e-04n5-ql9 /2013 Family Practice 3-m6939w66j & and 6d0 [facility] [place] [facility] [id number] 03/21 03/21 [facility] c9-2u11-o05 /2013 Family Practice 3-62s815hx9 & and 8f3 [facility] [place] [facility] [id number] 03/21 03/21 [facility] 56-41bf-bf4 /2013 Family Practice 2-1eg6166qy & and 69e [facility] [place] [facility] [id number] 03/21 03/21 [facility] 17-48cf-b8c /2013 Family Practice f-sc9y38884 & and 55f [facility] [place] [facility] [id number] 03/21 03/21 [facility] 10-4066-88a /2013 Family Practice 4-71943ox3e & and eb5 [facility] [place] [facility] [id number] 03/21 03/21 [facility] 59-0xn1-i16 /2013 Family Practice 5-5wto41553 & and 047 [facility] [place] [facility] [id number]-yf 03/21 03/21 [facility] 95-4752-891 /2013 Family Practice 4-fp3i12bjv & and 231 [facility] [facility] [id number] 03/21 03/21 [facility] a3-45bd-885 /2013 Family Practice a-st4gml8t3 & and e4d [facility] [place] [facility] [id number] 03/21 03/21 [facility] 11-403f-ae6 /2013 Family Practice c-m62118q88 & and aff [facility] [place] [facility] [id number] 03/21 03/21 [facility] 87-428e-ad5 /2013 Family Practice 1-7e3w2gx7x & and bf0 [facility] [place] [facility] [id number] 03/21 03/21 [facility] c5-43q6-1f3 /2013 Family Practice 7-u216lkfu3 & and 5d0 [facility] [place] [facility] [id number] 03/21 03/21 [facility] 75-8m35-z1n /2013 Family Practice 6-t30t717z8 & and 1a0 [facility] [place] [facility] 25enp2m6-a2 03/21 03/21 [facility] b6-4104-a3b /2013 Family Practice 9-kbed5n3h5 & and 717 [facility] [place] [facility] [id number] 03/21 03/21 [facility] c2-5a72-z39 /2013 Family Practice d-b08j9o100 & and 8d0 [facility] [facility] [id number] 03/21 03/21 [facility] 01-4228-82d /2013 Family Practice 6-ya425ac37 & and 075 [facility] Visit [id number] Lonnie Marie, 04/03 04/03 [place] 95071 /2013 [facility] 350 [facility] leg swelling [id number] 04/18 04/18 [facility] 1a-4267-9c3 /2013 Family Practice a-41ax7711l & and 4a0 [facility] [place] leg swelling [id number]-f6 04/18 04/18 [facility] 47-5z09-v8a /2013 Family Practice 3-7103gs2b9 & and 25d [facility] [place] leg swelling [id number] 04/18 04/18 [facility] 80-4746-84d /2013 Family Practice d-2b7h5lxg2 & and 124 [facility] [place] leg swelling 5kpj5smo-jv 04/18 04/18 [facility] e9-3q4q-xx2 /2013 Family Practice 6-81kfj235x & and 6d6 [facility] [place] leg swelling [id number]-36 04/18 04/18 [facility] 80-3f17-77z /2013 Family Practice d-pv3l902o4 & and fa5 [facility] [place] leg swelling 5608ug7c-[id number] 04/18 04/18 [facility] a9-44ca-b23 /2013 Family Practice 1-iwqv8jma8 & and 34d [facility] [place] leg swelling 18f71uz3-k8 04/18 04/18 [facility] 67-49aa-8a1 /2013 Family Practice 7-6016e732e & and 04a [facility] [place] leg swelling [id number] 04/18 04/18 [facility] 90-4068-b64 /2013 Family Practice 6-spo1w1hgg & and 356 [facility] [place] leg swelling [id number] 04/18 04/18 [facility] 64-06u5-iy0 /2013 Family Practice a-9z39h97v2 & and d65 [facility] [place] leg swelling [id number] 04/18 04/18 [facility] 75-2g56-3r9 /2013 Family Practice f-kxilxm44s & and dbb [facility] [place] leg swelling [id number] 04/18 04/18 [facility] bb-08z3-o4y /2013 Family Practice b-tgu13w16q & and aae [facility] [place] leg swelling 0fp6i20f-32 04/18 04/18 [facility] 4b-455e-8ab /2013 Family Practice e-b105ra828 & and 3c1 [facility] [place] leg swelling [id number] 04/18 04/18 [facility] 2e-41af-93d /2013 Family Practice e-rc247949x & and 3d6 [facility] [place] leg swelling [id number]-[id number] 04/18 04/18 [facility] 9a-4cbc-944 /2013 Family Practice e-qc160m736 & and 5d8 [facility] [place] leg swelling [id number]-37 04/18 04/18 [facility] 30-4ceb-b85 /2013 Family Practice a-a47w7tub5 & and 3a3 [facility] [place] leg swelling [id number] 04/18 04/18 [facility] 4b-9r50-hm1 /2013 Family Practice c-i98in517g & and 86b [facility] [place] leg swelling o608m3fs-8f 04/18 04/18 [facility] 37-4702-a1a /2013 Family Practice b-j4yj36m17 & and 413 [facility] [place] leg swelling 801zzx5b-63 04/18 04/18 [facility] b9-9gu7-9hs /2013 Family Practice 1-86ak06520 & and 030 [facility] [place] leg swelling [id number] 04/18 04/18 [facility] be-4350-bf0 /2013 Family Practice 3-39ek81i83 & and c61 [facility] [place] leg swelling c23c3eb1-ac 04/18 04/18 [facility] 02-43eb-a1a /2013 Family Practice f-b08aj2646 & and 78a [facility] [place] leg swelling 56m00j02-d8 04/18 04/18 [facility] a6-7ft9-r0g /2013 Family Practice c-gf2b73618 & and f7a [facility] [place] leg swelling [id number] 04/18 04/18 [facility] a9-4fec-b80 /2013 Family Practice f-d9l7pxey4 & and 58a [facility] [place] leg swelling [id number] 04/18 04/18 [facility] 0f-4z3g-311 /2013 Family Practice e-70ol08qrz & and cc9 [facility] [place] leg swelling [id number] 04/18 04/18 [facility] 19-7t22-y1f /2013 Family Practice a-uz52q93o3 & and 1b6 [facility] [place] leg swelling [id number]-2o 04/18 04/18 [facility] 2e-4i7s-29q /2013 Family Practice 5-j37z5o9xa & and 50c [facility] [place] leg swelling [id number] 04/18 04/18 [facility] c7-48fd-bba /2013 Family Practice a-o0087h42w & and ea0 [facility] [place] leg swelling oc9ifn76-9m 04/18 04/18 [facility] e2-491d-a42 /2013 Family Practice c-825839tjp & and 07d [facility] [place] leg swelling 0m2345h9-c1 04/18 04/18 [facility] 9e-4918-84f /2013 Family Practice f-q0891s2yo & and 9ac [facility] [place] leg swelling 1218cs4q-79 04/18 04/18 [facility] 93-9i23-u1e /2013 Family Practice 5-11892df7w & and 314 [facility] [place] leg swelling [id number] 04/18 04/18 [facility] 72-45bc-a34 /2013 Family Practice a-818i49xra & and 7a9 [facility] [place] leg swelling rw2hbgx7-yv 04/18 04/18 [facility] 15-7g20-4d5 /2013 Family Practice 3-802y796vo & and c12 [facility] [place] leg swelling [id number]-[id number] 04/18 04/18 [facility] a4-4022-9b0 /2013 Family Practice 5-x42dhdydg & and db3 [facility] [place] leg swelling [id number]-99 04/18 04/18 [facility] bb-3c76-169 /2013 Family Practice b-g7305848g & and 316 [facility] [place] leg swelling e119kd1i-80 04/18 04/18 [facility] 47-468c-a3d /2013 Family Practice 6-21g81jwmj & and e23 [facility] [place] leg swelling [id number]-86 04/18 04/18 [facility] 78-56o6-9o2 /2013 Family Practice 7-0kov109lu & and a64 [facility] [place] leg swelling [id number] 04/18 04/18 [facility] ca-3u11-id9 /2013 Family Practice e-55ka30793 & and a13 [facility] [place] leg swelling [id number] 04/18 04/18 [facility] d2-4088-8f7 /2013 Family Practice 8-d3a22l34h & and 8d3 [facility] [place] leg swelling [id number]-o4 04/18 04/18 [facility] 38-4955-8d2 /2013 Family Practice 3-5128n908c & and 3a4 [facility] [place] leg swelling [id number]-u4 04/18 04/18 [facility] bc-45b4-hn5 /2013 Family Practice e-4365z4791 & and c2a [facility] [place] leg swelling 53cp428y-17 04/18 04/18 [facility] 34-4676-9a5 /2013 Family Practice b-470x8f9gb & and a65 [facility] [place] leg swelling [id number]-m5 04/18 04/18 [facility] 63-5lx6-280 /2013 Family Practice f-e880ly736 & and c7a [facility] [place] leg swelling i4695rz2-q0 04/18 04/18 [facility] a7-4075-b94 /2013 Family Practice 6-yur7er47b & and d21 [facility] [place] leg swelling [id number] 04/18 04/18 [facility] 7e-4721-bd0 /2013 Family Practice c-f6t1414n1 & and afe [facility] Visit [id number] Lonnie Marie, 04/19 04/19 [place] [address] /2013 [facility] 350 [facility] 1 day 4gll171y-7m 04/19 04/19 [facility] follow-up/ 3c-4edb-851 /2013 Family Practice leg is still 0-q5k45ydp2 & and swollen b0f [facility] 1 day 5e388wqt-83 04/19 04/19 [facility] follow-up/ 3f-79n9-2v5 /2013 Family Practice leg is still 3-79e611y69 & and swollen 331 [facility] [place] 1 day [id number] 04/19 04/19 [facility] follow-up/ 15-4r3p-6wo /2013 Family Practice leg is still 7-3i34p956o & and swollen 261 [facility] 1 day 2hy400b9-4t 04/19 04/19 [facility] follow-up/ c3-7x00-s4c Family Practice leg is still e-5fm3862x2 & and swollen b87 [facility] 1 day 2o9b097h-m8 04/19 04/19 [facility] follow-up/ 35-429a-812 Family Practice leg is still 8-97t3wj032 & and swollen e8c [facility] [place] 1 day [id number] 04/19 04/19 [facility] follow-up/ 0f-416f-a42 Family Practice leg is still 7-10bz4o80w & and swollen 60c [facility] 1 day 3is2550j-5b 04/19 04/19 [facility] follow-up/ 6f-473a-aa7 Family Practice leg is still 5-8ow3vn555 & and swollen 90b [facility] [place] 1 day pzd13g4e-88 04/19 04/19 [facility] follow-up/ 6d-4197-ac5 Family Practice leg is still d-622285h34 & and swollen 5f2 [facility] 1 day 151tq26s-43 04/19 04/19 [facility] follow-up/ ab-6ts1-0yn Family Practice leg is still 2-83x29yx43 & and swollen 30f [facility] [place] 1 day [id number] 04/19 04/19 [facility] follow-up/ 02-40db-976 Family Practice leg is still 5-67k240761 & and swollen f70 [facility] [place] 1 day [id number]-u1 04/19 04/19 [facility] follow-up/ 65-41b3-t18 Family Practice leg is still c-2508v73m6 & and swollen 904 [facility] 1 day 9980p6el-7j 04/19 04/19 [facility] follow-up/ 57-42ed-bb9 Family Practice leg is still 7-3f8426663 & and swollen 006 [facility] [place] 1 day zwdha34i-88 04/19 04/19 [facility] follow-up/ 69-3t47-782 Family Practice leg is still 3-siy9dr15p & and swollen 000 [facility] [place] 1 day w6c30rkj-34 04/19 04/19 [facility] follow-up/ 92-3xu3-7z4 Family Practice leg is still 5-6rt362n3d & and swollen 57e [facility] [place] 1 day i45295h0-82 04/19 04/19 [facility] follow-up/ 07-493f-8ca Family Practice leg is still f-11o909mi6 & and swollen b9a [facility] 1 day [id number] 04/19 04/19 [facility] follow-up/ 3c-4478-8fa Family Practice leg is still b-a43e51044 & and swollen 2a5 [facility] [place] 1 day 6p3wmd69-14 04/19 04/19 [facility] follow-up/ 90-4dfd-801 Family Practice leg is still c-81e314z2j & and swollen f89 [facility] [place] 1 day k49d1ly9-1w 04/19 04/19 [facility] follow-up/ b1-1t59-zvp Family Practice leg is still b-0b05r845w & and swollen 8f7 [facility] [place] 1 day j19pjg1f-mj 04/19 04/19 [facility] follow-up/ 99-95w4-517 Family Practice leg is still 7-22v74azn5 & and swollen f5b [facility] [place] 1 day [id number] 04/19 04/19 [facility] follow-up/ 81-2l3e-681 Family Practice leg is still b-wih03q196 & and swollen 270 [facility] [place] 1 day 84366m51-0s 04/19 04/19 [facility] follow-up/ 7e-4afd-92f /2013 Family Practice leg is still 8-368d14079 & and swollen 2b0 [facility] [place] 1 day 6d5wi2w1-r7 04/19 04/19 [facility] follow-up/ fb-4301-ba3 /2013 Family Practice leg is still d-5yto67b15 & and swollen 638 [facility] [place] 1 day 7m7188oz-8h 04/19 04/19 [facility] follow-up/ 59-47bf-94c Family Practice leg is still 1-356nbrq97 & and swollen 432 [facility] [place] 1 day gl30d45b-0r 04/19 04/19 [facility] follow-up/ 11-84b6-288 Family Practice leg is still 9-y7478t8gd & and swollen 75e [facility] [place] 1 day 98d27g92-cv 04/19 04/19 [facility] follow-up/ 89-06f6-g19 Family Practice leg is still e-h2i83uh9n & and swollen e70 [facility] [place] 1 day eu54p631-xf 04/19 04/19 [facility] follow-up/ 62-2r5g-fbo Family Practice leg is still 7-f55p7129j & and swollen 2cd [facility] [place] 1 day 2g0808l9-6t 04/19 04/19 [facility] follow-up/ d5-50k2-jzb /2013 Family Practice leg is still e-yn08q19qd & and swollen 33f [facility] [place] 1 day 020pe67g-s5 04/19 04/19 [facility] follow-up/ ea-409f-a4c /2013 Family Practice leg is still 6-3j2150842 & and swollen f08 [facility] [place] 1 day 5h250c1e-y0 04/19 04/19 [facility] follow-up/ cc-4597-a7b /2013 Family Practice leg is still 0-0is0v261c & and swollen 2eb [facility] [place] 1 day [id number] 04/19 04/19 [facility] follow-up/ a6-1kt9-3c2 Family Practice leg is still 3-07094t00g & and swollen 206 [facility] [place] 1 day qg2yu1hb-jp 04/19 04/19 [facility] follow-up/ 88-495d-9d6 Family Practice leg is still 3-0w8p14555 & and swollen 415 [facility] [place] 1 day 9p751772-0g 04/19 04/19 [facility] follow-up/ 45-2za3-djw Family Practice leg is still 1-hbu43k828 & and swollen 212 [facility] [place] 1 day 8cp16k06-qg 04/19 04/19 [facility] follow-up/ 67-5gr2-4wz Family Practice leg is still c-q1o4770n2 & and swollen 0be [facility] [place] 1 day 883x344t-n1 04/19 04/19 [facility] follow-up/ a0-4117-965 Family Practice leg is still 6-367jt9vr1 & and swollen 665 [facility] [place] 1 day 3hvli5rd-3l 04/19 04/19 [facility] follow-up/ 9f-4489-845 Family Practice leg is still e-8i26453ag & and swollen 5bb [facility] 1 day 50261zs3-55 04/19 04/19 [facility] follow-up/ da-5dw1-6s4 Family Practice leg is still a-dmcwm7o2r & and swollen 407 [facility] [place] 1 day e3r32z13-09 04/19 04/19 [facility] follow-up/ a3-42z0-273 Family Practice leg is still e-71187u198 & and swollen 911 [facility] [place] 1 day s68cr287-xf 04/19 04/19 [facility] follow-up/ 16-49ca-991 /2013 Family Practice leg is still 5-d40902g8x & and swollen 65c [facility] [place] 1 day dk1967v4-f7 04/19 04/19 [facility] follow-up/ 71-4825-b72 /2013 Family Practice leg is still e-a840xk0h6 & and swollen e4f [facility] [place] 1 day [id number] 04/19 04/19 [facility] follow-up/ 4f-43dc-8f6 /2013 Family Practice leg is still c-xpk107ge4 & and swollen 959 [facility] [place] 1 day [id number] 04/19 04/19 [facility] follow-up/ 7f-4761-a6c /2013 Family Practice leg is still 0-s3r0cad47 & and swollen d7e [facility] [place] 1 day ko8173bp-im 04/19 04/19 [facility] follow-up/ 2d-4560-8e0 Family Practice leg is still f-h3i9304st & and swollen be2 [facility] [place] 1 day [id number] 04/19 04/19 [facility] follow-up/ 38-455d-bb2 Family Practice leg is still 9-18m02615y & and swollen 607 [facility] Lab Report [id number] Lonnie Marie, 04/20 04/20 Jay [address]31 /2013 [facility] Test results [id number] 04/24 04/24 [facility] d2-1q78-p41 /2013 Family Practice 8-x55v64k8f & and 4bf [facility] Test results [id number] 04/24 04/24 [facility] 42-430c-801 /2013 Family Practice 1-42td14j27 & and 39c [facility] Test results [id number] 04/24 04/24 [facility] 60-4513-9b0 /2013 Family Practice 5-59z2bi9d8 & and 8dc [facility] Test results [id number] 04/24 04/24 [facility] 1e-461c-b5e /2013 Family Practice 4-ni60ry821 & and 159 [facility] [facility] Test results [id number] 04/24 04/24 [facility] dd-8m96-11w /2013 [facility] 7-4k01j17y0 & and 68f [facility] results [id number] 04/24 04/24 [facility] 65-9kn7-n80 /2013 Family Practice 1-l17n85kl5 & and 7f2 [facility] results [id number] 04/24 04/24 [facility] c4-0w7p-h5w /2013 [facility] Practice e-[id number] & and 63f [facility] results [id number] 04/24 04/24 [facility] f1-4cae-9f1 /2013 Family Practice 4-53wstjq02 & and b98 [facility] results [id number] 04/24 04/24 [facility] 25-44aa-bec /2013 [facility] Practice d-f6rryyns5 & and 675 [facility] results [id number] 04/24 04/24 [facility] ff-7lq2-224 /2013 Family Practice d-0631o44ux & and b48 [facility] results [id number] 04/24 04/24 [facility] 5b-4113-a96 /2013 Family Practice 4-819v2m9tu & and 54a [facility] results [id number] 04/24 04/24 [facility] 77-6x22-ym3 /2013 Family Practice 7-0qzxv490m & and f4a [facility] results [id number] 04/24 04/24 [facility] 6e-48aa-af4 /2013 Family Practice c-a7q4a7453 & and 53a [facility] Test results [id number] 04/24 04/24 [facility] e3-45ab-bd4 /2013 Family Practice 0-kws9659p2 & and ccf [facility] results [id number] 04/24 04/24 [facility] e4-1w08-dp3 /2013 [facility] Practice 9-6l044286a & and 1b7 [facility] Test results [id number] 04/24 04/24 [facility] ef-44cf-aa7 /2013 Family Practice e-3402ej758 & and 6af [facility] Test results [id number] 04/24 04/24 [facility] 08-4fca-93f /2013 [facility] Practice 6-t5db70l03 & and d9e [facility] Test results [id number] 04/24 04/24 [facility] 7b-4702-b86 /2013 Family Practice 6-524q1298q & and 4c3 [facility] Test results [id number] 04/24 04/24 [facility] 62-66a0-099 /2013 Family Practice e-149a94f00 & and 5ea [facility] Test results [id number] 04/24 04/24 [facility] 84-3n79-ksn /2013 [facility] Practice 3-d46647g45 & and dc0 [facility] Test results [id number] 04/24 04/24 [facility] 7b-19m5-7l6 /2013 Family Practice 9-3584ln0uf & and 8d3 [facility] results [id number] 04/24 04/24 [facility] 70-42v3-1bv /2013 Family Practice 6-357un0x85 & and 684 [facility] results [id number] 04/24 04/24 [facility] 27-473b-892 /2013 Family Practice d-cq509vklk & and f34 [facility] Test results [id number] 04/24 04/24 [facility] ab-6z52-22b /2013 Family Practice e-y445k552u & and 5c5 [facility] results [id number] 04/24 04/24 [facility] 12-01l7-bh7 /2013 Family Practice 6-30kg17i79 & and 20c [facility] Test results [id number] 04/24 04/24 [facility] 8f-26t3-22t /2013 Family Practice 4-si86b8v86 & and 4a9 [facility] results [id number] 04/24 04/24 [facility] 5a-5tm6-5sd /2013 Family Practice 8-03cddbcfa & and 00b [facility] Test results [id number] 04/24 04/24 [facility] e0-4385-951 /2013 Family Practice 9-e303i3t27 & and e8f [facility] Test results [id number] 04/24 04/24 [facility] 4c-1c1m-ytu /2013 Family Practice 7-2k94p95ue & and a11 [facility] results [id number] 04/24 04/24 [facility] 2b-4c7n-44u /2013 Family Practice 6-671rqc212 & and f27 [facility] results [id number] 04/24 04/24 [facility] 74-401f-b49 /2013 Family Practice 9-j4oukz592 & and ce6 [facility] results [id number] 04/24 04/24 [facility] f4-446b-b3f /2013 Family Practice 9-3285eln8z & and 5a1 [facility] results [id number] 04/24 04/24 [facility] 76-408b-835 /2013 Family Practice f-4g751b4tz & and d07 [facility] results [id number] 04/24 04/24 [facility] ee-4300-8dc /2013 Family Practice 8-wcd71597e & and d28 [facility] results [id number] 04/24 04/24 [facility] 8e-47ed-b3f /2013 Family Practice 3-y8pxf031i & and 7cd [facility] results [id number] 04/24 04/24 [facility] 5d-4503-861 /2013 Family Practice a-801jm36o6 & and 7d7 [facility] results [id number] 04/24 04/24 [facility] b6-4367-87b /2013 Family Practice 3-z4xr6j7p5 & and b17 [facility] results [id number] 04/24 04/24 [facility] 6d-2ex1-tf1 /2013 Family Practice 3-1772lxg4p & and d22 [facility] results [id number] 04/24 04/24 [facility] 10-5o8v-19m /2013 Family Practice e-8osbyr412 & and 464 [facility] results [id number] 04/24 04/24 [facility] a7-492a-a88 /2013 Family Practice 7-r52v27159 & and 04f [facility] Test results [id number] 04/24 04/24 [facility] 37-4880-bda /2013 Family Practice 0-q961bgw35 & and 2d0 [facility] Test results [id number] 04/24 04/24 [facility] 4b-488b-873 /2013 Family Practice 5-5rt5233b8 & and f58 [facility] results [id number] 04/24 04/24 [facility] 3d-4bee-a4e /2013 Family Practice 5-hv7lw744u & and 358 [facility] Visit [id number] Lonnie Marie, 05/31 05/31 BREA Mobley MD /2013 [facility] General [facility] [address] ABDOMINAL [id number] 08/21 08/21 [facility] c1-4987-9be /2013 Family Practice 9-6vq9c8144 & and caa [facility] [id number] 08/21 08/21 [facility] a0-4479-8c7 /2013 Family Practice d-8d1bnh4m2 & and dc5 [facility] [id number] 08/21 08/21 [facility] 3c-92w7-a79 /2013 Family Practice 1-xn6rq38ax & and 2ec [facility] [id number] 08/21 08/21 [facility] 88-9x5y-j63 /2013 Family Practice 2-5105v631s & and 13e [facility] [id number]-ji 08/21 08/21 [facility] cb-4q64-nee /2013 Family Practice 1-7m47193u3 & and f0b [facility] [id number] 08/21 08/21 [facility] d3-439a-911 /2013 Family Practice 1-vykn8drlg & and 164 [facility] [id number] 08/21 08/21 [facility] aa-7hd4-807 /2013 Family Practice e-y98163412 & and 827 [facility] [id number] 08/21 08/21 [facility] 1f-4357-941 /2013 Family Practice 0-2w59brjno & and 767 [facility] [id number] 08/21 08/21 [facility] ab-423d-b31 /2013 Family Practice 0-236m177u3 & and d79 [facility] [id number]-92 08/21 08/21 [facility] 7b-4fde-98a /2013 Family Practice 0-2a495c119 & and a7a [facility] [id number] 08/21 08/21 [facility] 80-460c-89f /2013 Family Practice 2-715098ugz & and 267 [facility] [id number] 08/21 08/21 [facility] fe-40af-8b2 /2013 Family Practice 4-0gkxyh5y1 & and ec1 [facility] [id number] 08/21 08/21 [facility] 07-99g1-srz /2013 Family Practice 3-3k320i74p & and 514 [facility] [id number] 08/21 08/21 [facility] 4c-4m85-e0q /2013 Family Practice f-[id number] & and bc6 [facility] [id number] 08/21 08/21 [facility] a6-3b5k-h4i /2013 Family Practice a-8m673q00b & and f9c [facility] [id number]-vc 08/21 08/21 [facility] a6-2z60-t3t /2013 Family Practice a-nd2ldcdnp & and 224 [facility] [id number]-10 08/21 08/21 [facility] 84-4177-a91 /2013 Family Practice a-21a9zb652 & and 0ad [facility] [id number]-kh 08/21 08/21 [facility] f4-4064-96d /2013 Family Practice 7-46a173550 & and eef [facility] [id number] 08/21 08/21 [facility] 6d-47bb-b99 /2013 Family Practice a-3906i90cl & and f41 [facility] [id number]-8r 08/21 08/21 [facility] de-47ed-93e /2013 Family Practice 7-zt040431z & and 64a [facility] 88mw0p3r-6e 08/21 08/21 [facility] a8-86p2-3r7 /2013 Family Practice b-066rwgr39 & and 22a [facility] [id number]-[id number] 08/21 08/21 [facility] 13-29d3-223 /2013 Family Practice e-2wt3y6642 & and 011 [facility] [id number] 08/21 08/21 [facility] 32-49db-a9e /2013 Family Practice a-27zw519vh & and acf [facility] [id number] 08/21 08/21 [facility] 7c-4971-834 /2013 Family Practice 1-720y18421 & and 1b9 [facility] [id number] 08/21 08/21 [facility] d0-4hr9-kxy /2013 Family Practice b-ukqz70n6m & and f6a [facility] [id number] 08/21 08/21 [facility] d1-440b-99f /2013 Family Practice 9-7rcz381ru & and 1ab [facility] [id number]-pg 08/21 08/21 [facility] 94-4601-83f /2013 Family Practice c-d44fr5456 & and 513 [facility] [id number] 08/21 08/21 [facility] a1-2w90-rrt /2013 Family Practice 9-2285oi7ta & and d21 [facility] [id number] 08/21 08/21 [facility] e3-61n4-vly /2013 Family Practice 2-g365i2evs & and 794 [facility] [id number] 08/21 08/21 [facility] 46-7k9d-6x8 /2013 Family Practice 4-k433q8c94 & and b92 [facility] [id number] 08/21 08/21 [facility] 1e-4625-a00 /2013 [facility] Practice 9-8e3xa0t8m & and 4d7 [facility] [id number] 08/21 08/21 [facility] d6-97n4-414 /2013 Family Practice a-m68b38g2d & and 0f0 [facility] [id number] 08/21 08/21 [facility] 26-475c-8a4 /2013 Family Practice 2-8wy06486n & and f63 [facility] [id number] 08/21 08/21 [facility] 6f-471d-b03 /2013 Family Practice 6-cc6b372h3 & and 162 [facility] [id number] 08/21 08/21 [facility] 5f-451c-b76 /2013 [facility] Practice f-1270p2j57 & and 08f [facility] [id number]-l5 08/21 08/21 [facility] 1c-9w0d-405 /2013 [facility] Practice 1-i48344k29 & and de2 [facility] [id number] 08/21 08/21 [facility] 0a-7m8p-s7e /2013 [facility] Practice 6-j1my86784 & and 04d [facility] [id number] 08/21 08/21 [facility] 27-5k4i-963 /2013 Family Practice a-548959is9 & and 281 [facility] [id number]-81 08/21 08/21 [facility] 26-2o2x-8eg /2013 [facility] Practice 5-mv8t0axe3 & and 09f [facility] [id number] 08/21 08/21 [facility] c9-448c-868 /2013 Family Practice e-9e9u67711 & and 2b9 [facility] Unknown [id number] 08/21 08/21 [facility] 0d-1a13-805 /2013 Family Practice f-rj92h618o & and 373 [facility] Unknown [id number] 08/21 08/21 [facility] dd-38u5-3r8 /2013 Family Practice 4-hr9y114bc & and 65e [facility] Unknown [id number] 08/21 08/21 [facility] fd-4905-9e8 /2013 Family Practice e-48892768c & and cfc [facility] Unknown [id number] 08/21 08/21 [facility] b3-488a-b9b /2013 Family Practice 9-1638y7n15 & and 7ec [facility] Unknown [id number] 08/21 08/21 [facility] a8-9y43-z6s /2013 Family Practice 5-585146wz4 & and d0f [facility] Unknown [id number] 08/21 08/21 [facility] 89-4342-9d2 /2013 [facility] Practice 1-1h33v584d & and f46 [facility] Unknown [id number] 08/21 08/21 [facility] 02-5w76-186 /2013 Family Practice 7-9fcso7273 & and f49 [facility] Unknown [id number] 08/21 08/21 [facility] 96-4548-98f /2013 [facility] Practice 7-50gn4o740 & and dd7 [facility] Unknown [id number] 08/21 08/21 [facility] 09-2u64-xp1 /2013 Family Practice 0-b9fm1z808 & and 0f1 [facility] Unknown [id number] 08/21 08/21 [facility] b5-4721-9ce /2013 Family Practice 7-nwqj800a9 & and 750 [facility] Unknown [id number] 08/21 08/21 [facility] 0b-4453-a7a /2013 Family Practice f-1x2z06u7o & and 570 [facility] Unknown [id number] 08/21 08/21 [facility] bc-3b09-e2o /2013 Family Practice d-972np661w & and 3c4 [facility] Unknown [id number] 08/21 08/21 [facility] be-77i7-378 /2013 [facility] Practice f-4w1uhccwy & and bb6 [facility] Unknown [id number] 08/21 08/21 [facility] e6-1zf7-86g /2013 Family Practice f-8cf9d0177 & and 3c4 [facility] Unknown [id number] 08/21 08/21 [facility] bb-2b81-294 /2013 Family Practice 0-682f07cj5 & and 102 [facility] Unknown [id number] 08/21 08/21 [facility] a6-97k7-76d /2013 Family Practice 2-791o871n3 & and b26 [facility] Unknown [id number] 08/21 08/21 [facility] 60-8g7c-576 /2013 Family Practice 9-1f22519kd & and 521 [facility] Unknown [id number] 08/21 08/21 [facility] 7b-43fe-joselyn /2013 Family Practice e-9958p242t & and 3bc [facility] Unknown [id number] 08/21 08/21 [facility] 6a-4829-a61 /2013 Family Practice 6-1h1v810u7 & and 621 [facility] Unknown [id number] 08/21 08/21 [facility] 26-8d7u-q90 /2013 Family Practice c-01vj6fcfk & and f17 [facility] [id number] 08/21 08/21 [facility] fb-90a4-s22 /2013 [facility] Practice 1-kiw3467t7 & and 553 [facility] [id number] 08/21 08/21 [facility] 9f-400f-be6 /2013 [facility] Practice 2-p6t5l6f65 & and 46d [facility] [id number] 08/21 08/21 [facility] 67-6i87-65s /2013 [facility] Practice 2-968g32tow & and 1a8 [facility] Unknown [id number] 08/21 08/21 [facility] 98-4815-846 /2013 [facility] Practice 1-1wew6tnh8 & and 31c [facility] Unknown [id number] 08/21 08/21 [facility] d5-4421-990 /2013 [facility] Practice 8-17h9934o7 & and a3d [facility] Unknown [id number] 08/21 08/21 [facility] aa-4899-ae8 /2013 [facility] Practice 8-q918412s8 & and 123 [facility] Unknown [id number] 08/22 08/22 [facility] 74-8h7d-t5q /2013 Family Practice f-y381tqc59 & and a60 [facility] Unknown [id number] 08/22 08/22 [facility] 3e-4fcb-8bf /2013 Family Practice 5-354989d6f & and acc [facility] Unknown [id number] 08/22 08/22 [facility] 96-4862-87d /2013 [facility] Practice 4-n79c988d4 & and 462 [facility] Unknown [id number] 08/22 08/22 [facility] 47-32g6-321 /2013 [facility] Practice 9-k4389oek2 & and 339 [facility] Unknown [id number] 08/22 08/22 [facility] bc-4caa-9a5 /2013 Family Practice b-1x7wjd595 & and c69 [facility] Unknown [id number] 08/22 08/22 [facility] 25-410b-b36 /2013 Family Practice 9-3g3y46f50 & and 5b2 [facility] Unknown [id number] 08/22 08/22 [facility] bf-9q19-75q /2013 Family Practice 5-s08nh65q4 & and e19 [facility] Unknown [id number] 08/22 08/22 [facility] eb-4sg9-300 /2013 Family Practice e-8k624940w & and be8 [facility] Unknown [id number] 08/22 08/22 [facility] aa-4637-974 /2013 [facility] Practice 0-j6vphur34 & and d9d [facility] Unknown [id number] 08/22 08/22 [facility] bc-4506-9c7 /2013 Family Practice 6-l6239k96r & and 4f9 [facility] Unknown [id number] 08/22 08/22 [facility] bd-4665-804 /2013 Family Practice f-837y91974 & and ebb [facility] Unknown [id number] 08/22 08/22 [facility] bd-4229-894 /2013 Family Practice 2-[id number] & and 5a5 [facility] Unknown [id number] 08/22 08/22 [facility] dc-6l4l-u82 /2013 [facility] Practice 7-e6298t52q & and f31 [facility] Unknown [id number] 08/22 08/22 [facility] d6-421e-958 /2013 Family Practice a-y2654lb14 & and 580 [facility] 1 day follow [id number] 08/22 08/22 [facility] 60-4caa-b01 /2013 [facility] Practice 8-9535y0r61 & and 77c [facility] 1 day follow [id number] 08/22 08/22 [facility] fb-401d-a3c /2013 Family Practice 3-6l93361m8 & and 6b0 [facility] 1 day follow [id number] 08/22 08/22 [facility] 10-4453-8ce /2013 Family Practice 2-67707xxj4 & and 753 [facility] 1 day follow [id number] 08/22 08/22 [facility] b8-4s05-w3q /2013 Family Practice 9-670010923 & and ff5 [facility] 1 day follow [id number]-py 08/22 08/22 [facility] dc-0u20-5y0 /2013 Family Practice 5-i3yr1510h & and d64 [facility] 1 day follow [id number] 08/22 08/22 [facility] e4-29b1-sed /2013 [facility] Practice f-a1wn3h310 & and 21a [facility] 1 day follow [id number] 08/22 08/22 [facility] 8c-4i6g-851 /2013 [facility] Practice e-18a4d233b & and b40 [facility] 1 day follow [id number] 08/22 08/22 [facility] 71-70h5-648 /2013 [facility] Practice 9-870w7p56n & and eff [facility] 1 day follow [id number] 08/22 08/22 [facility] 56-1a63-ri2 /2013 [facility] Practice 0-315e14658 & and 438 [facility] 1 day follow [id number] 08/22 08/22 [facility] 66-4cbd-9e4 /2013 [facility] Practice b-6pein938s & and e87 [facility] 1 day follow [id number] 08/22 08/22 [facility] a4-9f24-p2t /2013 [facility] Practice 3-4056428v2 & and cdd [facility] 1 day follow [id number] 08/22 08/22 [facility] 79-2f39-wfb /2013 [facility] Practice 5-hbx29vezw & and 166 [facility] 1 day follow [id number] 08/22 08/22 [facility] 54-3t29-pn1 /2013 [facility] Practice d-wbq1at7ih & and a68 [facility] 1 day follow [id number] 08/22 08/22 [facility] up 30-85r7-830 /2013 [facility] Practice b-617255zo7 & and 5eb [facility] 1 day follow [id number] 08/22 08/22 [facility] f7-2g20-219 /2013 [facility] Practice b-c0iol3498 & and e8c [facility] 1 day follow [id number] 08/22 08/22 [facility] 73-483e-b25 /2013 [facility] Practice 6-5327r0gi1 & and c6d [facility] 1 day follow [id number] 08/22 08/22 [facility] 32-40aa-bd2 /2013 [facility] Practice 2-63501gmtf & and 77b [facility] 1 day follow [id number] 08/22 08/22 [facility] d6-4795-be3 /2013 [facility] Practice 3-jl0719wz4 & and 606 [facility] 1 day follow [id number] 08/22 08/22 [facility] 72-42fb-ad6 /2013 [facility] Practice b-4k3q02o43 & and 6da [facility] 1 day follow [id number] 08/22 08/22 [facility] e5-4158-a44 /2013 [facility] Practice 1-b0wn0x692 & and 22b [facility] 1 day follow [id number] 08/22 08/22 [facility] ec-4823-9c5 /2013 Family Practice 6-3636a5k40 & and be3 [facility] 1 day follow [id number] 08/22 08/22 [facility] 3a-4726-96a /2013 [facility] Practice b-4k001s8hg & and ac2 [facility] 1 day follow [id number] 08/22 08/22 [facility] up 4a-91r0-1m6 /2013 Family Practice 1-3gc47c389 & and b23 [facility] 1 day follow [id number] 08/22 08/22 [facility] d8-48ec-90f /2013 [facility] Practice 4-8d910j5h1 & and b1f [facility] 1 day follow [id number] 08/22 08/22 [facility] fc-4542-871 /2013 [facility] Practice 1-v26isa51y & and 870 [facility] 1 day follow [id number]-rx 08/22 08/22 [facility] fb-4ph1-77p /2013 Family Practice 4-55369044d & and 3b0 [facility] 1 day follow [id number] 08/22 08/22 [facility] 1a-4r62-b2j /2013 [facility] Practice d-f41618k43 & and b1a [facility] [facility] 1 day follow 37i0d64b-05 08/22 08/22 [facility] e2-5v1j-yn2 /2013 Family Practice b-02h90df0r & and 85e [facility] 1 day follow [id number] 08/22 08/22 [facility] 15-43fd-b98 /2013 Family Practice 1-iz110o2g4 & and 7fc [facility] 1 day follow e3p26sb7-44 08/22 08/22 [facility] ee-4582-834 /2013 Family Practice 5-10g2rcd0z & and 70f [facility] 1 day follow [id number] 08/22 08/22 [facility] 2a-7h4k-v7l /2013 Family Practice 5-k7sm693k1 & and 6a1 [facility] 1 day follow vc0x37c5-u2 08/22 08/22 [facility] 5f-4705-91b /2013 Family Practice f-36ih40481 & and 3c7 [facility] 1 day follow [id number] 08/22 08/22 [facility] 5a-49eb-ba4 /2013 Family Practice 5-2r631416x & and e63 [facility] 1 day follow [id number] 08/22 08/22 [facility] up db-432f-a0a /2013 Family Practice 2-91rrr1d21 & and 8a2 [facility] 1 day follow [id number] 08/22 08/22 [facility] a2-1v76-z8d /2013 Family Practice 7-3n7537h56 & and c1e [facility] 1 day follow [id number]-93 08/22 08/22 [facility] 3b-1h1h-v60 /2013 Family Practice f-4v9j4uu29 & and ec5 [facility] 1 day follow [id number] 08/22 08/22 [facility] 39-49eb-a4d /2013 Family Practice 2-3735b3wj3 & and c3f [facility] 1 day follow [id number]-an 08/22 08/22 [facility] 71-00o1-229 /2013 Family Practice 5-hc11o7kc5 & and 4ae [facility] 1 day follow [id number] 08/22 08/22 [facility] 57-461f-bd7 /2013 Family Practice a-01240u865 & and 163 [facility] 1 day follow [id number]-e5 08/22 08/22 [facility] aa-4581-8b0 /2013 Family Practice e-3dvn949u7 & and 60f [facility] 2 DAY FOLLOW f4piz9a9-of 08/24 08/24 [facility] fb-4740-901 /2013 Family Practice 4-xr0m42527 & and 08d [facility] 2 DAY FOLLOW [id number] 08/24 08/24 [facility] 0c-9m63-09c /2013 Family Practice f-x09bezjj7 & and 290 [facility] 2 DAY FOLLOW [id number] 08/24 08/24 [facility] 3c-433a-b65 /2013 Family Practice 4-h717026kb & and f0c [facility] 2 DAY FOLLOW [id number] 08/24 08/24 [facility] 39-0t7p-037 /2013 Family Practice 3-qd1f12339 & and 3d6 [facility] 2 DAY FOLLOW [id number] 08/24 08/24 [facility] c5-4dfa-884 /2013 Family Practice f-n3z9n2363 & and a97 [facility] 2 DAY FOLLOW [id number] 08/24 08/24 [facility] 87-444d-871 /2013 Family Practice a-jmz4yk11p & and 315 [facility] 2 DAY FOLLOW [id number]-q0 08/24 08/24 [facility] d0-422a-898 /2013 Family Practice 0-r0x38e555 & and 54c [facility] 2 DAY FOLLOW [id number] 08/24 08/24 [facility] 46-4762-9b9 /2013 Family Practice 3-3d8n8433b & and 4b3 [facility] 2 DAY FOLLOW [id number] 08/24 08/24 [facility] 1b-41cd-835 /2013 Family Practice 2-puwy3kqzg & and f9e [facility] 2 DAY FOLLOW [id number] 08/24 08/24 [facility] b7-4207-816 /2013 Family Practice 3-3d09tc0e6 & and 280 [facility] 2 DAY FOLLOW [id number] 08/24 08/24 [facility] 7f-27z9-9n9 /2013 Family Practice 1-ig7l3r144 & and 3b1 [facility] 2 DAY FOLLOW [id number] 08/24 08/24 [facility] d6-48db-aad /2013 Family Practice 7-s0tk0e9g4 & and trevon [facility] 2 DAY FOLLOW [id number]-ta 08/24 08/24 [facility] 76-2wa3-393 /2013 Family Practice f-8nl254q32 & and 43e [facility] 2 DAY FOLLOW [id number] 08/24 08/24 [facility] e2-4bac-86c /2013 Family Practice f-2584n245s & and 707 [facility] 2 DAY FOLLOW [id number] 08/24 08/24 [facility] de-4205-bbf /2013 Family Practice 1-29mvr7f1b & and f86 [facility] 2 DAY FOLLOW [id number] 08/24 08/24 [facility] db-1y18-267 /2013 Family Practice 7-55vy003f0 & and a01 [facility] 2 DAY FOLLOW [id number] 08/24 08/24 [facility] ea-1p6d-f74 /2013 Family Practice b-0g0vit028 & and 335 [facility] 2 DAY FOLLOW [id number] 08/24 08/24 [facility] 21-3kp8-et1 /2013 Family Practice b-9a55l2118 & and 0b2 [facility] 2 DAY FOLLOW [id number] 08/24 08/24 [facility] e3-432a-9ba /2013 Family Practice a-43y57l6aq & and b64 [facility] 2 DAY FOLLOW [id number] 08/24 08/24 [facility] a3-94e1-sds /2013 Family Practice b-h15hw8422 & and 95a [facility] 2 DAY FOLLOW 5b06u6t8-4m 08/24 08/24 [facility] 31-49ca-b9e /2013 Family Practice e-51z2p7202 & and dd9 [facility] 2 DAY FOLLOW [id number]-vc 08/24 08/24 [facility] 4e-4859-b74 /2013 Family Practice c-[id number] & and cb0 [facility] 2 DAY FOLLOW [id number] 08/24 08/24 [facility] c4-73q4-868 /2013 Family Practice c-712c52t07 & and 974 [facility] 2 DAY FOLLOW [id number]-63 08/24 08/24 [facility] a4-4856-918 /2013 Family Practice 2-81h0u5nq7 & and 538 [facility] 2 DAY FOLLOW [id number] 08/24 08/24 [facility] 54-4ccb-b2c /2013 Family Practice 6-c4403r57r & and ba1 [facility] 2 DAY FOLLOW [id number] 08/24 08/24 [facility] 8c-45h0-u95 /2013 Family Practice 7-[id number] & and 3cf [facility] 2 DAY FOLLOW [id number] 08/24 08/24 [facility] d3-4b36-034 /2013 Family Practice 0-3d4c116q3 & and 107 [facility] 2 DAY FOLLOW [id number] 08/24 08/24 [facility] e5-4dbb-b35 /2013 Family Practice 1-h0p139hw0 & and ef6 [facility] 2 DAY FOLLOW [id number] 08/24 08/24 [facility] ad-4182-a9d /2013 Family Practice 2-j89x6iz70 & and fec [facility] 2 DAY FOLLOW [id number] 08/24 08/24 [facility] c0-0t52-5yd /2013 Family Practice 6-134102v0l & and 4c2 [facility] 2 DAY FOLLOW [id number]-15 08/24 08/24 [facility] 68-4127-b00 /2013 Family Practice f-84f93256z & and 0fd [facility] 2 DAY FOLLOW [id number]-w8 08/24 08/24 [facility] 4d-4481-ac1 /2013 Family Practice d-bl1779p89 & and 355 [facility] 2 DAY FOLLOW [id number]-v9 08/24 08/24 One[facility] 90-0x64-726 /2013 Family Practice f-2y9mhg917 & and fbc [facility] 2 DAY FOLLOW [id number]-k5 08/24 08/24 [facility] 2f-480c-a9a /2013 Family Practice 5-1186mj8jd & and 51e [facility] 2 DAY FOLLOW [id number] 08/24 08/24 [facility] de-43z7-57i /2013 Family Practice c-r8s241v7u & and 5ad [facility] 2 DAY FOLLOW [id number]-uf 08/24 08/24 [facility] 15-461e-bf2 /2013 Family Practice 6-g418wob5z & and 750 [facility] 2 DAY FOLLOW [id number] 08/24 08/24 [facility] c7-7f27-s30 /2013 Family Practice e-6m4eol23s & and ce0 [facility] 2 DAY FOLLOW [id number] 08/24 08/24 [facility] cf-499e-8d8 /2013 Family Practice b-0h222a29p & and 734 [facility] 2 DAY FOLLOW [id number] 08/24 08/24 [facility] c3-5a66-pw0 /2013 Family Practice 2-31518z3s4 & and 980 [facility] 2 DAY FOLLOW [id number]-74 08/24 08/24 [facility] 4b-473d-b66 /2013 Family Practice 2-73j046e4g & and 6fc [facility] Unknown [id number] 08/27 08/27 [facility] 67-6b68-jn5 /2013 Family Practice 2-8k124n3rr & and 08d [facility] Unknown [id number] 08/27 08/27 [facility] a8-9l86-e9h /2013 Family Practice 6-067523gey & and fca [facility] Unknown [id number] 08/27 08/27 [facility] 4b-423b-b38 /2013 Family Practice 9-65286345f & and 130 [facility] Unknown [id number] 08/27 08/27 [facility] a1-41cc-946 /2013 Family Practice b-af65248q9 & and 000 [facility] Unknown [id number] 08/27 08/27 [facility] ff-494a-a94 /2013 Family Practice 9-shh4l2b3o & and dc5 [facility] Unknown [id number] 08/27 08/27 [facility] 0d-49ff-a94 /2013 Family Practice c-zg087m1eo & and edc [facility] Unknown [id number] 08/27 08/27 [facility] c1-0h4c-r03 /2013 Family Practice 3-8q55qg5p0 & and 52d [facility] Unknown [id number] 08/27 08/27 [facility] c1-24h8-bn5 /2013 Family Practice e-77t05165p & and 13d [facility] Unknown [id number] 08/27 08/27 [facility] 3a-9s9q-dn8 /2013 Family Practice c-967458c51 & and bf7 [facility] Unknown [id number] 08/27 08/27 [facility] b7-0m5z-zxe /2013 Family Practice b-18433zn85 & and 29a [facility] Unknown [id number] 08/27 08/27 [facility] 73-8fu6-d97 /2013 Family Practice e-cnosfa3ns & and aef [facility] Unknown [id number] 08/27 08/27 [facility] d9-4426-937 /2013 Family Practice a-784jo8orx & and 30b [facility] Unknown [id number] 08/27 08/27 [facility] 7d-42bb-954 /2013 Family Practice 8-757543i49 & and c69 [facility] Unknown [id number] 08/27 08/27 [facility] 4e-4409-b20 /2013 Family Practice 9-082410g57 & and 57e [facility] Unknown [id number] 08/27 08/27 [facility] 7b-4242-888 /2013 Family Practice f-6223nd1fk & and 449 [facility] Unknown [id number] 08/27 08/27 [facility] 27-6fy1-e55 /2013 Family Practice 7-81d79v7fd & and d61 [facility] Unknown [id number] 08/27 08/27 [facility] cd-7wq6-01l /2013 Family Practice 7-72y197nh1 & and fc7 [facility] Unknown [id number] 08/27 08/27 [facility] 4d-41a7-21v /2013 Family Practice 8-s59mb1951 & and da9 [facility] Unknown [id number] 08/27 08/27 [facility] 5e-6ce5-92h /2013 Family Practice 9-eve130377 & and 7f8 [facility] Unknown [id number] 08/27 08/27 [facility] db-94o4-321 /2013 Family Practice b-1n5uj6v2x & and 6e9 [facility] Unknown [id number] 08/27 08/27 [facility] 3b-3d0f-oev /2013 Family Practice 8-95z1m0izf & and bf8 [facility] Unknown [id number] 08/27 08/27 [facility] 9b-98d6-d8y /2013 Family Practice e-sjp35v0xh & and f92 [facility] Unknown [id number] 08/27 08/27 [facility] a6-4cfa-b2e /2013 Family Practice b-26689k400 & and 406 [facility] Unknown [id number] 08/27 08/27 [facility] d1-457d-a31 /2013 Family Practice 0-9390ovy63 & and 8d9 [facility] Unknown [id number] 08/27 08/27 [facility] 9e-4480-b9f /2013 Family Practice 8-015m2dkt4 & and b6f [facility] Unknown [id number] 08/27 08/27 [facility] 61-48fd-953 /2013 Family Practice 3-62480670f & and 26c [facility] Unknown [id number] 08/27 08/27 [facility] a4-4042-992 /2013 Family Practice 8-01x45100z & and c84 [facility] Unknown [id number] 08/27 08/27 [facility] cc-6as4-7f9 /2013 Family Practice e-15560dq35 & and 1ec [facility] Unknown [id number] 08/27 08/27 [facility] 51-463d-819 /2013 Family Practice 3-h06xe6u1s & and 3e4 [facility] Unknown [id number] 08/27 08/27 [facility] f3-1ao0-528 /2013 Family Practice 5-13330k2tf & and 532 [facility] Unknown [id number] 08/27 08/27 [facility] 12-1mw6-46l /2013 Family Practice 6-uva57k325 & and 636 [facility] Unknown [id number] 08/27 08/27 [facility] ef-4164-bd8 /2013 Family Practice 0-23u13fe0e & and 5f1 [facility] Unknown [id number] 08/27 08/27 [facility] 50-4625-bdb /2013 Family Practice e-39t776k79 & and 340 [facility] Unknown [id number] 08/27 08/27 [facility] 56-99o5-vi1 /2013 Family Practice 9-6h835p50v & and 62a [facility] Unknown [id number] 08/27 08/27 [facility] c7-497e-ada /2013 Family Practice c-996wj3371 & and 64a [facility] Unknown [id number] 08/27 08/27 [facility] ee-45fd-88f /2013 Family Practice 0-8wl58l52u & and 1ce [facility] Unknown [id number] 08/27 08/27 [facility] 02-446a-a29 /2013 Family Practice 0-y41e641xd & and acf [facility] Unknown [id number] 08/27 08/27 [facility] 92-447d-8a6 /2013 Family Practice 9-j00885o88 & and 74d [facility] Unknown [id number] 08/27 08/27 [facility] 9f-4998-80e /2013 Family Practice 7-q1024vtps & and c3f [facility] Unknown [id number] 08/27 08/27 [facility] 72-467d-a41 /2013 Family Practice 7-l00d6abed & and b53 [facility] COUGH [id number] 11/30 11/30 [facility] 4a-497c-a81 /2014 Family Practice 6-e2zqu4j67 & and 5eb [facility] COUGH [id number] 11/30 11/30 [facility] a6-4242-b94 /2014 Family Practice 9-gx3weniq8 & and 9fd [facility] COUGH [id number] 11/30 11/30 [facility] 1e-4089-a60 /2014 Family Practice 0-2m6l119xa & and 124 [facility] COUGH [id number] 11/30 11/30 [facility] 8c-8lg1-jri /2014 Family Practice 6-gb8v37x80 & and c3d [facility] COUGH [id number] 11/30 11/30 [facility] 85-407b-92c /2014 Family Practice a-f75790u9v & and d0f [facility] COUGH [id number]-78 11/30 11/30 [facility] 4a-43ce-be8 /2014 Family Practice e-87150kw74 & and 003 [facility] COUGH [id number] 11/30 11/30 [facility] b0-470a-bbb /2014 Family Practice b-0xf009194 & and 0cf [facility] COUGH [id number]-w3 11/30 11/30 [facility] 2b-5a44-0kt /2014 Family Practice 9-9f72zf915 & and 561 [facility] COUGH [id number] 11/30 11/30 [facility] 87-4683-baa /2014 Family Practice 4-7j5875732 & and ec7 [facility] COUGH [id number] 11/30 11/30 [facility] 4b-4907-8c1 /2014 Family Practice a-5170fccab & and e00 [facility] COUGH [id number]-zs 11/30 11/30 [facility] c5-4995-abd /2014 Family Practice 2-3mc7ur08h & and 5ef [facility] COUGH [id number] 11/30 11/30 [facility] 33-4bfb-808 /2014 Family Practice 7-h1m79dycv & and 62e [facility] COUGH [id number]-[id number] 11/30 11/30 [facility] 84-0c1e-h3m /2014 Family Practice b-mn3gb4u59 & and 595 [facility] COUGH [id number] 11/30 11/30 [facility] e5-477b-8c7 /2014 Family Practice e-kh4ac5222 & and cf8 [facility] COUGH [id number]-x0 11/30 11/30 [facility] a7-4810-a22 /2014 Family Practice f-02m8l83yu & and 2bf [facility] COUGH [id number] 11/30 11/30 [facility] ea-4eaf-b1e /2014 Family Practice 8-de34z52q7 & and 80a [facility] COUGH [id number] 11/30 11/30 [facility] 7e-60z1-6k4 /2014 Family Practice b-df013z752 & and bdc [facility] COUGH [id number]-l7 11/30 11/30 [facility] 52-03x0-h5g /2014 Family Practice 3-j4272aqqd & and ddc [facility] COUGH [id number] 11/30 11/30 [facility] 41-4451-a8e /2014 Family Practice 5-303i390be & and ae3 [facility] COUGH [id number] 11/30 11/30 [facility] 68-4940-833 /2014 Family Practice 0-u65s827l8 & and c9b [facility] COUGH [id number]-dc 11/30 11/30 [facility] 07-4c44-3w8 /2014 Family Practice 7-4m72p8046 & and 70a [facility] COUGH [id number]-37 11/30 11/30 [facility] 7a-88v4-9n4 /2014 Family Practice e-1s3j114o2 & and 5da [facility] COUGH [id number]-09 11/30 11/30 [facility] b5-19t5-q60 /2014 Family Practice 3-x359qs1r1 & and 974 [facility] COUGH [id number] 11/30 11/30 [facility] 83-410a-840 /2014 Family Practice 1-g443n040h & and 7aa [facility] COUGH [id number] 11/30 11/30 [facility] a0-400a-afb /2014 Family Practice e-an0s898p9 & and 948 [facility] COUGH [id number]-d9 11/30 11/30 [facility] a1-21r8-14z /2014 Family Practice f-3x14s7386 & and 1f9 [facility] COUGH [id number] 11/30 11/30 [facility] 4d-4272-817 /2014 Family Practice e-51997ib7f & and 5b1 [facility] COUGH [id number] 11/30 11/30 [facility] 18-417d-864 /2014 Family Practice 3-1843ltu77 & and 6e8 [facility] COUGH [id number] 11/30 11/30 [facility] 07-2k55-5vq /2014 Family Practice b-n471904iu & and 02a [facility] COUGH [id number] 11/30 11/30 [facility] 1e-2on4-805 /2014 Family Practice 5-27751v029 & and 80d [facility] COUGH [id number] 11/30 11/30 [facility] e4-467a-ac4 /2014 Family Practice a-66fy53n61 & and 3d1 [facility] COUGH [id number] 11/30 11/30 [facility] f3-51q6-994 /2014 Family Practice 7-64g6099g9 & and 73e [facility] COUGH [id number] 11/30 11/30 [facility] 74-48ec-b78 /2014 Family Practice b-v3e689gfs & and 088 [facility] COUGH [id number]-03 11/30 11/30 [facility] 61-4489-ae7 /2014 Family Practice 3-4350lt64s & and c6e [facility] COUGH [id number] 11/30 11/30 [facility] 5b-4fbf-b21 /2014 Family Practice 1-43ax8994h & and bda [facility] FOLLOW-UP [id number] 12/11 12/11 [facility] b7-5gg3-m31 /2014 Family Practice d-k2peb4m47 & and 361 [facility] FOLLOW-UP [id number]-kj 12/11 12/11 [facility] cc-7k24-bo3 /2014 Family Practice 2-35r428982 & and ce1 [facility] FOLLOW-UP [id number] 12/11 12/11 [facility] 1d-4095-b1a /2014 Family Practice 4-xg3ux8r02 & and ee3 [facility] FOLLOW-UP [id number] 12/11 12/11 [facility] d9-4261-ab2 /2014 Family Practice b-67i51428a & and 6d5 [facility] FOLLOW-UP [id number] 12/11 12/11 [facility] 55-463f-8b3 /2014 Family Practice a-0e9amk4cf & and db9 [facility] FOLLOW-UP [id number] 12/11 12/11 [facility] 30-88g2-y50 /2014 Family Practice e-i9tk8we6s & and 9b5 [facility] FOLLOW-UP [id number] 12/11 12/11 [facility] 60-8aa3-2bt /2014 Family Practice f-dwov36030 & and ef2 [facility] FOLLOW-UP [id number] 12/11 12/11 [facility] 93-4778-abc /2014 Family Practice 9-350493445 & and 785 [facility] FOLLOW-UP [id number] 12/11 12/11 [facility] 33-68r1-1q6 /2014 Family Practice 1-sxa771288 & and d1b [facility] FOLLOW-UP [id number] 12/11 12/11 [facility] d0-4345-9ce /2014 Family Practice 2-y8vp8573v & and 94a [facility] FOLLOW-UP [id number] 12/11 12/11 [facility] 41-42bd-8c0 /2014 Family Practice d-70e2514wn & and 1a1 [facility] FOLLOW-UP [id number] 12/11 12/11 [facility] 3b-4q3r-i95 /2014 Family Practice 2-2jn073hu4 & and e52 [facility] FOLLOW-UP [id number] 12/11 12/11 [facility] 90-4074-845 /2014 Family Practice 5-yb497z70r & and 122 [facility] FOLLOW-UP [id number] 12/11 12/11 [facility] 0d-4137-8f0 /2014 Family Practice 7-n0p2iy86t & and abc [facility] FOLLOW-UP [id number] 12/11 12/11 [facility] 6b-4n32-634 /2014 Family Practice c-u0u5a34w5 & and d6d [facility] FOLLOW-UP [id number] 12/11 12/11 [facility] a8-4eee-b41 /2014 Family Practice a-898yhac0d & and f51 [facility] FOLLOW-UP [id number] 12/11 12/11 [facility] a2-2wo7-984 /2014 Family Practice 7-f1504vo74 & and 976 [facility] FOLLOW-UP [id number]-6f 12/11 12/11 [facility] 57-495e-b11 /2014 Family Practice 8-x2e128771 & and f31 [facility] FOLLOW-UP [id number] 12/11 12/11 [facility] 3c-4a3o-55p /2014 Family Practice e-969525226 & and a50 [facility] FOLLOW-UP [id number] 12/11 12/11 [facility] [id number] /2014 Family Practice [id number] & and 7a8 [facility] [id number] 12/11 12/11 [facility] [id number] /2014 Family Practice [id number] & and fe8 [facility] [id number] 12/11 12/11 [facility] Negron [id number] /2014 Family Practice [id number] & and 64e [facility] [id number] 12/11 12/11 [facility] Negr[facility] [id number] /2014 Family Practice [id number] & and 70d [facility] [id number] 12/11 12/11 [facility] ef-4dbb-b86 /2014 Family Practice 4-d4cr337hb & and c4e [facility] [id number] 12/11 12/11 [facility] 80-463e-8a2 /2014 Family Practice c-2714v01j9 & and 34a [facility] [id number] 12/11 12/11 [facility] c3-51a6-l38 /2014 Family Practice f-7193h9e7g & and 559 [facility] [id number] 12/11 12/11 [facility] 70-4785-b5b /2014 Family Practice 5-2im564o31 & and 552 [facility] [id number] 12/11 12/11 [facility] aa-477d-8ff /2014 Family Practice a-hat194t00 & and 177 [facility] [id number] 12/11 12/11 [facility] 99-3ce3-1m1 /2014 Family Practice f-5l06m868a & and d4d [facility] [id number] 12/11 12/11 [facility] 0f-3e0m-r4v /2014 Family Practice c-zvd13x471 & and 7b8 [facility] [id number] 12/11 12/11 [facility] 06-1f8i-9w6 /2014 Family Practice e-5d31qx11y & and e29 [facility] [id number]-63 12/11 12/11 [facility] fa-43cb-939 /2014 Family Practice e-g95ma01n9 & and 3b2 [facility] [id number] 12/11 12/11 [facility] bc-4859-b41 /2014 Family Practice 5-ouv1524t7 & and 35c [facility] [id number] 12/11 12/11 [facility] 75-1f2m-242 /2014 Family Practice 2-g539c20iq & and f83 [facility] [id number] 12/11 12/11 [facility] dc-4b27-6u6 /2014 Family Practice 4-6c59i3u1b & and 60b [facility] [id number]-76 12/19 12/19 [facility] 3f-4049-aa4 /2014 Family Practice d-34249qo83 & and 4d0 [facility] [id number] 12/19 12/19 [facility] 97-4572-853 /2014 Family Practice 5-c629j8ll9 & and 9c4 [facility] [id number] 12/19 12/19 [facility] a3-1a2z-804 /2014 Family Practice c-i90742bk0 & and 746 [facility] [id number] 12/19 12/19 [facility] d3-4229-a33 /2014 Family Practice c-f1285xi10 & and 24a [facility] [id number]-h3 12/19 12/19 [facility] 7b-411e-a37 /2014 Family Practice 4-574711m50 & and e12 [facility] [id number] 12/19 12/19 [facility] 63-45n1-zf9 /2014 Family Practice 6-k9pzw42y4 & and 992 [facility] [id number]-p3 12/19 12/19 [facility] 93-4723-afd /2014 Family Practice 0-4548682qb & and 95c [facility] [id number] 12/19 12/19 [facility] 0c-423b-ad5 /2014 Family Practice d-lo09445c3 & and f58 [facility] [id number] 12/19 12/19 [facility] 55-7ea0-6v8 /2014 Family Practice 2-o739l8064 & and f5e [facility] [id number] 12/19 12/19 [facility] a4-52f1-v21 /2014 Family Practice 9-1364ixy44 & and 60f [facility] [id number] 12/19 12/19 [facility] 73-475b-a66 /2014 Family Practice 6-j2s91ux12 & and 8fc [facility] [id number] 12/19 12/19 [facility] 2d-491b-84f /2014 Family Practice 9-394751479 & and 109 [facility] [id number] 12/19 12/19 [facility] 54-4359-a93 /2014 Family Practice c-9a6a513tx & and 8d6 [facility] [id number] 12/19 12/19 [facility] d3-4954-875 /2014 Family Practice 7-62591sm83 & and d1e [facility] [id number] 12/19 12/19 [facility] d8-4030-9be /2014 Family Practice 4-908ihp335 & and c5b [facility] [id number] 12/19 12/19 [facility] 85-4e4z-v92 /2014 Family Practice 7-q182q7e98 & and fd5 [facility] [id number]-py 12/19 12/19 [facility] a1-68w2-z56 /2014 Family Practice 3-3apjx140s & and 5dd [facility] [id number] 12/19 12/19 [facility] 08-4564-b90 /2014 Family Practice b-9ok57733c & and 145 [facility] [id number] 12/19 12/19 [facility] d4-7l04-799 /2014 Family Practice 7-8c093387i & and f68 [facility] [id number]-88 12/19 12/19 [facility] 9e-4fed-876 /2014 Family Practice a-0scop745k & and 21f [facility] [id number] 12/19 12/19 [facility] 06-2i6d-sj5 /2014 Family Practice e-50v1yz38y & and 6fd [facility] 07f4c5xd-9e 12/19 12/19 [facility] 9a-4343-a82 /2014 Family Practice 4-52wf0z99t & and 003 [facility] [id number]-j4 12/19 12/19 [facility] 51-4008-b6d /2014 Family Practice 3-4t6q96bl0 & and 6b8 [facility] [id number] 12/19 12/19 [facility] 7a-493f-bc3 /2014 Family Practice 5-498p99235 & and 6e4 [facility] [id number]-07 12/19 12/19 [facility] a3-46fe-9fb /2014 Family Practice f-39v2ws16f & and ed9 [facility] [id number] 12/19 12/19 [facility] 77-6e38-024 /2014 Family Practice 6-m79fdgng3 & and 9a5 [facility] [id number] 12/19 12/19 [facility] 3a-4s75-j84 /2014 Family Practice 1-o73e901t0 & and bb2 [facility] [id number] 12/19 12/19 [facility] 7b-4022-b2b /2014 Family Practice 4-5ef163653 & and d0c [facility] [id number]-yr 12/19 12/19 [facility] 55-1o95-o74 /2014 Family Practice e-61uzs949j & and 529 [facility] [id number] 12/19 12/19 [facility] 48-421e-b13 /2014 Family Practice 5-673r44hu2 & and d13 [facility] [id number] 12/19 12/19 [facility] 5f-400e-8fd /2014 Family Practice 0-38u916om9 & and 203 [facility] [id number]-15 12/19 12/19 [facility] 04-09e6-670 /2014 Family Practice 3-4y63422k1 & and a1c [facility] [id number]-ky 12/19 12/19 [facility] bf-4674-a26 /2014 Family Practice 5-zp54v9220 & and 81e [facility] [id number] 12/19 12/19 [facility] fb-2hk1-ioh /2014 Family Practice 4-3n12w34y2 & and 20d [facility] [id number] 12/19 12/19 [facility] 80-468d-bad /2014 Family Practice 5-13501502x & and 227 [facility] PA on [id number] 12/19 12/19 [facility] Esomeprazole 28-0c67-641 /2014 Family Practice 40mg 3-v398q4h68 & and 179 [facility] on [id number] 12/19 12/19 [facility] Esomeprazole 79-25c9-v8z /2014 Family Practice 40mg b-9o46166s7 & and 062 [facility] on [id number] 12/19 12/19 [facility] Esomeprazole aa-3xm9-95h /2014 Family Practice 40mg 6-06fi26hfu & and 149 [facility] on [id number] 12/19 12/19 [facility] Esomeprazole cb-7rn8-330 /2014 Family Practice 40mg 6-29p521kci & and 68b [facility] on [id number] 12/19 12/19 [facility] Esomeprazole 16-71i0-794 /2014 Family Practice 40mg e-3977b45ch & and 10e [facility] on [id number] 12/19 12/19 [facility] Esomeprazole b0-432e-b76 /2014 Family Practice 40mg 4-49225jf66 & and a0b [facility] on [id number] 12/19 12/19 [facility] Esomeprazole 9b-9o34-mdg /2014 Family Practice 40mg 9-n65hz8ji2 & and 796 [facility] on [id number] 12/19 12/19 [facility] Esomeprazole 86-23e2-b35 /2014 Family Practice 40mg f-o0x636t86 & and 6dc [facility] on [id number] 12/19 12/19 [facility] Esomeprazole b3-9cf4-mw6 /2014 Family Practice 40mg 1-l05k3bzwa & and b8d [facility] on [id number]-11 12/19 12/19 [facility] Esomeprazole 79-90p3-h9e /2014 Family Practice 40mg e-g6ul1387c & and 0d8 [facility] on [id number] 12/19 12/19 [facility] Esomeprazole 4b-6fm2-5j4 /2014 Family Practice 40mg 8-2l118g3e5 & and 3b2 [facility] on [id number] 12/19 12/19 [facility] Esomeprazole 7c-43ca-909 /2014 Family Practice 40mg b-ai6969685 & and 413 [facility] on [id number] 12/19 12/19 [facility] Esomeprazole 56-41db-a20 /2014 Family Practice 40mg 9-p7581d392 & and fb3 [facility] on [id number] 12/19 12/19 [facility] Esomeprazole 15-0g56-7ry /2014 Family Practice 40mg b-86493200i & and d70 [facility] on [id number] 12/19 12/19 [facility] Esomeprazole d7-50r1-435 /2014 Family Practice 40mg 5-nq2i02f00 & and c5e [facility] RAYA on [id number] 12/19 12/19 [facility] Esomeprazole 81-32u9-2d0 /2014 Family Practice 40mg b-zz669t859 & and yifan [facility] on [id number] 12/19 12/19 [facility] Esomeprazole cd-422f-97b /2014 Family Practice 40mg b-2laa92xk6 & and 337 [facility] on [id number] 12/19 12/19 [facility] Esomeprazole dc-4r73-h40 /2014 Family Practice 40mg c-67jd49101 & and 66c [facility] on [id number] 12/19 12/19 [facility] Esomeprazole 20-4057-9bc /2014 Family Practice 40mg f-43pu774o1 & and 207 [facility] on [id number] 12/19 12/19 [facility] Esomeprazole 4d-96a4-82w /2014 Family Practice 40mg 5-[id number] & and 927 [facility] on [id number] 12/19 12/19 [facility] Esomeprazole fb-4632-b69 /2014 Family Practice 40mg e-q52vgo79f & and 7de [facility] on [id number] 12/19 12/19 [facility] Esomeprazole b3-42c2-0s1 /2014 Family Practice 40mg 5-6v6pj02c4 & and 88f [facility] on [id number] 12/19 12/19 [facility] Esomeprazole d7-4042-8ff /2014 Family Practice 40mg 3-khbnt095m & and 653 [facility] on [id number] 12/19 12/19 [facility] Esomeprazole 19-47fc-99f /2014 Family Practice 40mg 7-0m9195url & and 0a3 [facility] on [id number] 12/19 12/19 [facility] Esomeprazole f6-4653-931 /2014 Family Practice 40mg 5-p563681sv & and 6db [facility] on [id number]-h9 12/19 12/19 [facility] Esomeprazole fe-4ecb-a89 /2014 Family Practice 40mg e-0z5910zk4 & and d2f [facility] on [id number] 12/19 12/19 [facility] Crestor 10mg d3-0x75-273 /2014 Family Practice 4-0052945x7 & and 41e [facility] on [id number] 12/19 12/19 [facility] Crestor 10mg 09-66e0-91d /2014 Family Practice 7-15xh52qri & and 792 [facility] on [id number] 12/19 12/19 [facility] Crestor 10mg 17-1do3-5d9 /2014 Family Practice 4-7091yx13r & and f7b [facility] on [id number] 12/19 12/19 [facility] 10mg d2-40df-a46 /2014 Family Practice b-cs28d2627 & and 340 [facility] on [id number] 12/19 12/19 [facility] 10mg 9a-4868-9f8 /2014 Family Practice a-8t66pf391 & and 3d1 [facility] on [id number]-e3 12/19 12/19 [facility] Crestor 10mg bc-4606-927 /2014 Family Practice 2-374f04188 & and c17 [facility] on [id number] 12/19 12/19 [facility] 10mg 53-0hl4-251 /2014 Family Practice f-7d7053y34 & and be0 [facility] on [id number] 12/19 12/19 [facility] 10mg 63-446d-a9e /2014 Family Practice a-4x0yaa247 & and fa2 [facility] on 33p3w6m3-76 12/19 12/19 [facility] 10mg 30-5lk9-2ys /2014 Family Practice 6-0ezwnz1o1 & and a31 [facility] on [id number] 12/19 12/19 [facility] 10mg 4b-4284-88e /2014 Family Practice 3-ov4y0uw33 & and 52d [facility] on [id number] 12/19 12/19 [facility] 10mg 4f-4988-931 /2014 Family Practice 8-z1jfu244u & and aa6 [facility] on [id number] 12/19 12/19 [facility] 10mg 45-4abf-8cd /2014 Family Practice 9-9177b90d0 & and 1d5 [facility] on [id number] 12/19 12/19 [facility] 10mg 0e-43e4-e68 /2014 Family Practice f-36ho2uws0 & and e2b [facility] on [id number] 12/19 12/19 [facility] Crestor 10mg 43-4971-84b /2014 Family Practice d-4ev4vmvi4 & and 337 [facility] on [id number] 12/19 12/19 [facility] 10mg 1b-86f2-7vo /2014 Family Practice 1-t7l10w45v & and 234 [facility] [place] on [id number] 12/19 12/19 [facility] 10mg 4b-9h15-yfm /2014 Family Practice 4-q859es585 & and 34d [facility] on [id number] 12/19 12/19 [facility] 10mg 74-443a-a3b /2014 Family Practice 7-hdo49h867 & and dab [facility] on [id number] 12/19 12/19 [facility] 10mg 2d-8g65-qq4 /2014 Family Practice d-e56lps04e & and c82 [facility] on [id number] 12/19 12/19 [facility] 10mg 0c-92e9-21q /2014 Family Practice 6-to7n31318 & and a0b [facility] on [id number] 12/19 12/19 [facility] 10mg a8-3a47-65d /2014 Family Practice c-hq6ri9149 & and fbb [facility] on [id number] 12/19 12/19 [facility] 10mg 97-48ca-9c8 /2014 Family Practice 6-y31900rv9 & and 711 [facility] on [id number] 12/19 12/19 [facility] 10mg 73-63v9-22q /2014 Family Practice d-48x55n57q & and dcd [facility] on [id number] 12/19 12/19 [facility] Crestor 10mg 39-5ps7-h27 /2014 Family Practice 0-g2ma13v9g & and 3c0 [facility] on [id number] 12/19 12/19 [facility] Crestor 10mg d1-77r1-z25 /2014 Family Practice 5-16k232wb3 & and 84d [facility] on [id number] 12/19 12/19 [facility] Crestor 10mg 3d-4610-a16 /2014 Family Practice a-up5l7b198 & and 4ba [facility] on [id number] 12/19 12/19 [facility] Crestor 10mg bb-67o5-7q3 /2014 Family Practice 2-ya85pd229 & and 833 [facility] on [id number] 12/19 12/19 [facility] Esomeprazole c3-4adc-a13 /2014 Family Practice 40mg 2-p102mwi4z & and 96c [facility] on [id number] 12/19 12/19 [facility] Esomeprazole ab-453a-87f /2014 Family Practice 40mg 3-556697a4u & and b98 [facility] on [id number] 12/19 12/19 [facility] Esomeprazole 80-48cc-b6a /2014 Family Practice 40mg 4-54653ye59 & and a65 [facility] on [id number] 12/19 12/19 [facility] Esomeprazole fe-415f-9d4 /2014 Family Practice 40mg a-71024059w & and c5d [facility] on [id number] 12/19 12/19 [facility] Esomeprazole 77-42x5-l6w /2014 Family Practice 40mg 3-49l6tz525 & and 162 [facility] on [id number] 12/19 12/19 [facility] Esomeprazole 49-4daf-90a /2014 Family Practice 40mg 4-164ni2416 & and f54 [facility] on [id number] 12/19 12/19 [facility] Esomeprazole 90-42f4-z41 /2014 Family Practice 40mg 2-o0696yq8s & and 115 [facility] on [id number] 12/19 12/19 [facility] Esomeprazole 8e-47ac-990 /2014 Family Practice 40mg 2-ceys67259 & and 9f1 [facility] on [id number] 12/19 12/19 [facility] Esomeprazole a2-45ec-b14 /2014 Family Practice 40mg 6-n4g43z5p4 & and 5b7 [facility] on [id number] 12/19 12/19 [facility] Crestor 10mg 15-4517-86a /2014 Family Practice f-tnhc0l315 & and 846 [facility] on [id number] 12/19 12/19 [facility] Crestor 10mg a3-492d-ab3 /2014 Family Practice 8-kq8l78829 & and c6a [facility] on [id number] 12/19 12/19 [facility] Crestor 10mg 8f-420a-93b /2014 Family Practice f-7noy0o870 & and ed8 [facility] on [id number] 12/19 12/19 [facility] Crestor 10mg 8d-440c-af5 /2014 Family Practice f-800yi7883 & and f59 [facility] on [id number] 12/19 12/19 [facility] Crestor 10mg 7c-5l5n-4tu /2014 Family Practice 3-1y7u9hkk0 & and 843 [facility] on [id number] 12/19 12/19 [facility] Crestor 10mg 3c-1u68-cb8 /2014 Family Practice 5-a233g97h9 & and 660 [facility] on [id number] 12/19 12/19 [facility] 10mg 23-21f6-k93 /2014 Family Practice 6-o039x2a3z & and 7ae [facility] on [id number] 12/19 12/19 [facility] 10mg de-72r7-l49 /2014 Family Practice 1-x2069whhu & and 95a [facility] on [id number] 12/19 12/19 [facility] 10mg 98-4132-9f8 /2014 Family Practice 0-451z52e68 & and 6ed [facility] [id number] Theod[facility] 02/05 02[facility] [address] [facility] /2014 [facility] [id number] Theodoro 02/21 02/21 [facility] [address] [facility] /2014 [facility] [id number] Theodoro 03/21 03/21 [facility] [address] [facility] /2014 [facility] Col[facility] FOLLOW [id number] 04/17 04/17 [facility] 67-34h3-jmx /2014 Family Practice 3-w71gn4666 & and 6c5 [facility] FOLLOW [id number] 04/17 04/17 [facility] 33-408f-819 /2014 Family Practice 4-4c6581386 & and b1d [facility] FOLLOW [id number] 04/17 04/17 [facility] fa-0xz9-2aw /2014 Family Practice b-54038s199 & and 80f [facility] FOLLOW [id number] 04/17 04/17 [facility] 56-4880-b43 /2014 Family Practice 9-2g43797ej & and 999 [facility] FOLLOW [id number] 04/17 04/17 [facility] 99-480f-9cf /2014 Family Practice e-70505k3g3 & and ee0 [facility] FOLLOW [id number] 04/17 04/17 [facility] cb-479b-a1c /2014 Family Practice 4-5h9905xm4 & and b27 [facility] FOLLOW [id number] 04/17 04/17 [facility] 2b-498d-90d /2014 Family Practice 9-t744619i3 & and f9f [facility] FOLLOW [id number] 04/17 04/17 [facility] 89-5g3a-jxa /2014 Family Practice 9-8860rq3k8 & and 692 [facility] FOLLOW [id number] 04/17 04/17 [facility] 37-3o7w-3g7 /2014 Family Practice 0-je0020z75 & and ec3 [facility] FOLLOW [id number] 04/17 04/17 [facility] c7-4683-949 /2014 Family Practice 8-rq2o8r810 & and 782 [facility] FOLLOW [id number] 04/17 04/17 [facility] 02-61d4-bzt /2014 Family Practice 3-9f3x050r6 & and 8f5 [facility] FOLLOW [id number] 04/17 04/17 [facility] 37-4908-a6f /2014 Family Practice c-8527d47i2 & and 411 [facility] FOLLOW [id number] 04/17 04/17 [facility] 57-8ro0-557 /2014 Family Practice 0-113v0xbr5 & and c77 [facility] FOLLOW [id number] 04/17 04/17 [facility] 3f-3z1q-l53 /2014 Family Practice 7-g28yv16p0 & and 1de [facility] FOLLOW [id number] 04/17 04/17 [facility] da-2om9-405 /2014 Family Practice d-5674qfwa6 & and c3d [facility] FOLLOW [id number] 04/17 04/17 [facility] 3a-62y1-w0f /2014 Family Practice 5-r07agw4jr & and 2f5 [facility] FOLLOW [id number] 04/17 04/17 [facility] 88-4204-92f /2014 Family Practice 6-f848d70z4 & and 4d4 [facility] FOLLOW [id number] 04/17 04/17 [facility] e2-65m6-824 /2014 Family Practice 9-972f6057q & and 9ad [facility] FOLLOW [id number] 04/17 04/17 [facility] ee-1j96-297 /2014 Family Practice 8-518965p67 & and 37e [facility] FOLLOW [id number] 04/17 04/17 [facility] be-21v1-7xd /2014 Family Practice 0-207e58uq7 & and 96d [facility] FOLLOW [id number] 04/17 04/17 [facility] 57-471c-a1b /2014 Family Practice 6-891j8jhry & and c60 [facility] FOLLOW [id number] 04/17 04/17 [facility] [id number] /2014 Family Practice [id number] & and ac9 [facility] FOLLOW [id number] 04/17 04/17 [facility] [id number] /2014 Family Practice [id number] & and 039 [facility] FOLLOW [id number] 04/17 04/17 [facility] [id number] /2014 Family Practice [id number] & and 144 [facility] FOLLOW [id number] 04/17 04/17 [facility] 1f-4424-91d /2014 Family Practice b-w71m3k572 & and e9f [facility] FOLLOW [id number] 04/17 04/17 [facility] ef-0q72-i67 /2014 Family Practice 3-82n8z8c1n & and d2d [facility] FOLLOW [id number] 04/17 04/17 [facility] 14-49cb-b8a /2014 Family Practice 1-s76m4q135 & and ab0 [facility] FOLLOW [id number] 04/17 04/17 [facility] 50-5u14-795 /2014 Family Practice b-4k70b8x0y & and 743 [facility] FOLLOW [id number] 04/17 04/17 [facility] 08-4815-870 /2014 Family Practice 7-hpg617460 & and f4e [facility] FOLLOW [id number] 04/17 04/17 [facility] 0d-468f-91b /2014 Family Practice 9-in1441je1 & and e47 [facility] FOLLOW [id number] 04/17 04/17 [facility] 29-4454-8ab /2014 Family Practice d-fzi6d63v1 & and 31a [facility] FOLLOW [id number] 04/17 04/17 [facility] 2f-4752-8f4 /2014 Family Practice f-3q51o5lu9 & and a85 [facility] FOLLOW [id number] 04/17 04/17 [facility] 56-4391-ab3 /2014 Family Practice 7-u0f959e32 & and 811 [facility] FOLLOW [id number] 04/17 04/17 [facility] 5d-5q88-88r /2014 Family Practice 4-4wq9h2958 & and 0c9 [facility] FOLLOW [id number] 04/17 04/17 [facility] UP a1-499b-af4 /2014 Family Practice b-94g2i3916 & and e47 [facility] [id number] 04/26 04/26 [facility] 85-45fe-aea /2014 Family Practice 7-f33zq4303 & and 493 [facility] [id number] 04/26 04/26 [facility] 20-45ed-995 /2014 Family Practice d-o82k2jntr & and 8c6 [facility] [id number] 04/26 04/26 [facility] 87-8w59-1i5 /2014 Family Practice 2-s6cw9216h & and c57 [facility] [id number] 04/26 04/26 [facility] e4-88z8-7wp /2014 Family Practice 3-n0r3k946n & and 098 [facility] [id number] 04/26 04/26 [facility] d2-47n0-04n /2014 Family Practice 7-4228t9b64 & and a56 [facility] [id number] 04/26 04/26 [facility] 68-4900-bff /2014 Family Practice f-02z05d23s & and 3ee [facility] [id number] 04/26 04/26 [facility] d1-85v8-i50 /2014 Family Practice 5-7754y3854 & and 4b5 [facility] [id number] 04/26 04/26 [facility] fb-4cdc-86e /2014 Family Practice 5-065x489ip & and bda [facility] [id number] 04/26 04/26 [facility] a7-4fcb-a41 /2014 Family Practice 8-6229r0f60 & and fe0 [facility] [id number] 04/26 04/26 [facility] 43-4384-bd3 /2014 Family Practice 0-701982689 & and 23f [facility] [id number] 04/26 04/26 [facility] 40-4129-982 /2014 Family Practice 1-4rrrww6q9 & and 5e6 [facility] [id number] 04/26 04/26 [facility] 24-4060-853 /2014 Family Practice 5-68i01iw08 & and a9a [facility] [id number] 04/26 04/26 [facility] 5a-93t4-7wu /2014 Family Practice d-5e060q30b & and 72b [facility] [id number] 04/26 04/26 [facility] a0-5l36-48q /2014 Family Practice c-01w671u2n & and f5c [facility] [employer] [id number] 04/26 04/26 [facility] 36-4874-8ae /2014 Family Practice 2-j3060n1nb & and ca8 [facility] [id number] 04/26 04/26 [facility] 7a-1p0n-339 /2014 Family Practice f-5t4p10290 & and d6f [facility] [employer] [id number] 04/26 04/26 [facility] 12-4802-889 /2014 Family Practice 7-1p7ampy90 & and 046 [facility] [employer] [id number] 04/26 04/26 [facility] 1b-4168-912 /2014 Family Practice 7-t50517504 & and a93 [facility] [employer] [id number] 04/26 04/26 [facility] a6-471f-8eb /2014 Family Practice 0-irz69302g & and c09 [facility] [employer] [id number] 04/26 04/26 [facility] 7d-4732-9f8 /2014 Family Practice 8-8xs6t2543 & and 304 [facility] [id number] 04/26 04/26 [facility] 2d-4352-8cb /2014 Family Practice 4-2m32tiejo & and f8a [facility] [id number] 04/26 04/26 [facility] cf-5o16-md1 /2014 Family Practice 4-4jw97v3e6 & and 75c [facility] [id number] 04/26 04/26 [facility] 94-59j5-832 /2014 Family Practice a-du54259i4 & and 9ba [facility] 2x71mgta-a3 04/26 04/26 [facility] 7c-9om8-joo /2014 Family Practice f-e7512c10q & and c7d [facility] [id number] 04/26 04/26 [facility] 88-61f8-g8x /2014 Family Practice c-y5237e2b2 & and 8c4 [facility] [id number] 04/26 04/26 [facility] 2a-4714-bd9 /2014 Family Practice b-11248484x & and d29 [facility] [id number] 04/26 04/26 [facility] ff-0lk5-985 /2014 Family Practice 7-q13dh4ps5 & and c71 [facility] [id number] 04/26 04/26 [facility] 38-5t98-3ne /2014 Family Practice 9-308il6x88 & and 0e1 [facility] [id number] 04/26 04/26 [facility] 08-453a-a27 /2014 Family Practice f-04q4552u2 & and fd0 [facility] [id number] 04/26 04/26 [facility] ab-48ca-b99 /2014 Family Practice a-971v6cf1s & and f4f [facility] [id number] 04/26 04/26 [facility] b0-4qu0-07s /2014 Family Practice d-a568lg078 & and a46 [facility] [id number] 04/26 04/26 [facility] f1-44be-bcd /2014 Family Practice 7-dl3fok368 & and ec4 [facility] [id number]-mg 04/26 04/26 [facility] 95-70k7-l23 /2014 Family Practice a-5an98h592 & and 7c2 [facility] [id number] 04/26 04/26 [facility] 13-1y6s-6yr /2014 Family Practice d-ei6w4137b & and a3c [facility] [id number] 05/06 05/06 [facility] ba-02g7-421 /2014 Family Practice d-h9pw9z14v & and 0b2 [facility] [id number] 05/06 05/06 [facility] 40-425c-86e /2014 Family Practice 4-v178ng6d3 & and a91 [facility] [id number] 05/06 05/06 [facility] 50-4682-86e /2014 Family Practice 0-a7o361kx1 & and c2d [facility] [id number] 05/06 05/06 [facility] 8c-488f-87d /2014 Family Practice 9-3gcx60f63 & and d01 [facility] [id number] 05/06 05/06 [facility] 7b-1c4j-250 /2014 Family Practice 3-7677xpl04 & and 7e4 [facility] [id number] 05/06 05/06 [facility] 68-479d-b32 /2014 Family Practice 6-2y44191y3 & and 729 [facility] [id number] 05/06 05/06 [facility] be-1la8-6f5 /2014 Family Practice a-507jh39h4 & and 0d5 [facility] [id number] 05/06 05/06 [facility] 9c-00i6-0j2 /2014 Family Practice 5-56t514597 & and 3fc [facility] [id number] 05/06 05/06 On[facility] a2-4r51-b8i /2014 Family Practice 8-fn453p2dh & and 52d [facility] [id number] 05/06 05/06 [facility] 8d-0n46-2cw /2014 Family Practice 2-2wdfm5i01 & and 767 [facility] [id number] 05/06 05/06 [facility] 15-424f-935 /2014 Family Practice 8-3f849d6s9 & and 928 [facility] [id number] 05/06 05/06 [facility] b8-4830-bed /2014 Family Practice f-7w751494v & and cd0 [facility] [id number] 05/06 05/06 [facility] fd-424e-966 /2014 Family Practice c-nhnh3y02g & and 60a [facility] [id number] 05/06 05/06 [facility] 50-70p7-1x5 /2014 Family Practice b-5m2ox361j & and 466 [facility] [id number] 05/06 05/06 [facility] 1f-96j7-390 /2014 Family Practice e-9y59832iw & and c06 [facility] [id number] 05/06 05/06 [facility] cb-1n61-1p8 /2014 Family Practice 6-z7909885u & and 6b5 [facility] [id number] 05/06 05/06 [facility] 57-7i83-xmw /2014 Family Practice e-b8xub0236 & and cf0 [facility] [id number] 05/06 05/06 [facility] 24-6k28-m75 /2014 Family Practice 3-g86466u9l & and 6f1 [facility] [id number] 05/06 05/06 [facility] 12-4010-95e /2014 Family Practice c-m94eb34y4 & and 343 [facility] [id number] 05/06 05/06 [facility] 45-90v4-o32 /2014 Family Practice 9-z8b9686on & and ea3 [facility] [id number] 05/06 05/06 [facility] 33-4972-9e0 /2014 Family Practice 7-n9d7i9j6x & and 4a2 [facility] [id number] 05/06 05/06 [facility] 67-4fcb-a3a /2014 Family Practice b-48ze7384x & and 78b [facility] [id number] 05/06 05/06 [facility] 7c-4bcb-8b2 /2014 Family Practice e-78a18782x & and 1c1 [facility] [id number] 05/06 05/06 [facility] 32-5x28-358 /2014 Family Practice 2-87bo40x19 & and 5f8 [facility] [id number] 05/06 05/06 [facility]orn 45-2x8s-nw2 /2014 Family Practice b-i495550cm & and 429 [facility] [id number] 05/06 05/06 [facility] a8-7e3m-09s /2014 Family Practice 5-83szr037o & and 07d [facility] [id number] 05/06 05/06 [facility] c2-14t7-c32 /2014 Family Practice 9-284wdg569 & and 495 [facility] [employer] [id number] 05/06 05/06 [facility] 3d-4edc-a6d /2014 Family Practice 4-p0i7938kw & and bb0 [facility] [id number] 05/06 05/06 [facility] 2e-3x39-bl1 /2014 Family Practice c-hie3yk103 & and 745 [facility] [id number] 05/06 05/06 [facility] 3e-458c-894 /2014 Family Practice 9-w986687ka & and d0f [facility] [id number] 05/06 05/06 [facility] e9-83t7-2dr /2014 Family Practice b-286q90amf & and bb2 [facility] [id number] 05/06 05/06 [facility] a9-4895-b21 /2014 Family Practice 5-45c18426u & and 9c3 [facility] [id number] 05/06 05/06 [facility] 7c-489e-baf /2014 Family Practice 9-i82778fgn & and 410 [facility] [id number] [facility] 05/09 05/09 [facility] [address] [facility] /2014 [facility] [employer] [employer] [facility] Unknown [id number] 01/23 01/23 [facility] d0-451d-b4c /2015 Family Practice 2-16l963fzz & and 659 [facility] [id number] 01/23 01/23 [facility] a1-415d-bb1 /2015 Family Practice 0-9h883cl22 & and a1b [facility] [id number] 01/23 01/23 [facility] 4b-96y5-040 /2015 Family Practice d-7943nzt52 & and d0e [facility] [id number] 01/23 01/23 [facility] 54-4885-829 /2015 Family Practice d-59o1h1u3b & and 6d0 [facility] [id number] 01/23 01/23 [facility] ad-7ji5-6f6 /2015 Family Practice f-llmb46160 & and 63e [facility] [id number] 01/23 01/23 [facility] 63-4006-9ba /2015 Family Practice 2-15w1p6x39 & and 02e [facility] [id number] 01/23 01/23 [facility] 40-4343-95d /2015 Family Practice b-tw97h583s & and a94 [facility] [id number] 01/23 01/23 [facility] 6f-3f97-003 /2015 Family Practice d-7u6830v76 & and e53 [facility] [id number] 01/23 01/23 [facility] 65-2yf9-68p /2015 Family Practice b-8i34d46j2 & and 650 [facility] [id number] 01/23 01/23 [facility] 4e-4175-842 /2015 Family Practice 2-98507352u & and ca5 [facility] [id number] 01/23 01/23 [facility] 91-4478-bee /2015 Family Practice 1-0766y1g9h & and 3f4 [facility] Unknown [id number] 01/23 01/23 [facility] 2a-90z4-006 /2015 Family Practice 2-4749545nj & and c7d [facility] [id number] 01/23 01/23 [facility] 5f-4662-99e /2015 Family Practice 4-472766321 & and 1bd [facility] Unknown [id number] 01/23 01/23 [facility] 9f-4985-b68 /2015 Family Practice 9-97b8s56p3 & and 066 [facility] Unknown [id number] 01/23 01/23 [facility] 22-5cq2-njl /2015 Family Practice f-ra563ke38 & and 531 [facility] [id number] 01/23 01/23 [facility] 90-4dcf-943 /2015 Family Practice 2-mfqa6vz09 & and 240 [facility] [id number] 01/23 01/23 [facility] a1-4102-949 /2015 Family Practice e-0888t6j5z & and a4d [facility] [id number] 01/23 01/23 [facility] 44-09j2-753 /2015 Family Practice 3-064b1at52 & and 8ee [facility] [id number] 01/23 01/23 [facility] ab-42fc-90b /2015 Family Practice f-s7q075v82 & and 9b6 [facility] [id number] 01/23 01/23 [facility] 45-5x60-zc2 /2015 Family Practice 0-4x12i1jn3 & and a57 [facility] [id number] 01/23 01/23 [facility] 25-6j3m-1zk /2015 Family Practice 6-65n99i96d & and 99a [facility] [id number] 01/23 01/23 [facility] 0a-402d-a16 /2015 Family Practice 4-p93n7mqfs & and ae3 [facility] [id number] 01/23 01/23 [facility] a5-4ur0-040 /2015 Family Practice 5-s089g11s7 & and 256 [facility] [id number] 01/23 01/23 [facility] 4a-74n0-49k /2015 Family Practice f-2g7ty120e & and 389 [facility] [id number] 01/23 01/23 [facility] cd-487d-86e /2015 Family Practice 9-n75q72jn1 & and d04 [facility] [id number] 01/23 01/23 [facility] d7-4cfb-840 /2015 Family Practice a-8243a4t21 & and c87 [facility] [id number] 01/23 01/23 [facility] f4-16a8-316 /2015 Family Practice 3-0bjt59z83 & and 573 [facility] [id number] 01/23 01/23 [facility] 69-59d5-b33 /2015 Family Practice f-7s9m30753 & and 56b [facility] [id number] 01/23 01/23 [facility] 50-4721-840 /2015 Family Practice a-h510621ks & and f9a [facility] [id number] 01/23 01/23 [facility] 23-49ad-b28 /2015 Family Practice 4-378mm8t4a & and f59 [facility] [id number] 01/23 01/23 [facility] 32-47aa-b4e /2015 Family Practice d-58ub689a5 & and 5c3 [facility] Unknown [id number] 01/23 01/23 [facility] 08-49ef-ad6 /2015 Family Practice b-[id number] & and e7c [facility] insurance [id number] 01/29 01/29 [facility] c2-4858-98b /2015 Family Practice 8-601f645i7 & and ed0 [facility] insurance [id number] 01/29 01/29 [facility] f4-46cb-926 /2015 Family Practice 6-kliege2v4 & and 51b [facility] [id number] 01/29 01/29 [facility] d4-8k70-yf4 /2015 Family Practice f-[id number] & and ff6 [facility] insurance [id number] 01/29 01/29 [facility] 03-6q2e-6oe /2015 Family Practice a-09491i31u & and 3f7 [facility] insurance [id number] 01/29 01/29 [facility] info 5e-4309-a02 /2015 Family Practice 9-7a1012as1 & and a57 [facility] insurance [id number] 01/29 01/29 [facility] info 24-9z34-311 /2015 Family Practice d-83026337u & and 555 [facility] insurance [id number] 01/29 01/29 [facility] info 87-4247-ad1 /2015 Family Practice 3-70371l3u8 & and 2c2 [facility] insurance [id number] 01/29 01/29 [facility] info c5-22l4-674 /2015 Family Practice d-5803v69ci & and be8 [facility] insurance [id number] 01/29 01/29 [facility] info fa-4616-b6c /2015 Family Practice e-879fd404z & and dc8 [facility] insurance [id number] 01/29 01/29 [facility] [employer] 0f-2c36-f0s /2015 Family Practice 9-qb9s0om35 & and 7ff [facility] insurance [id number] 01/29 01/29 [facility] info d1-54n9-mx3 /2015 Family Practice c-3l01r8n8a & and 7ab [facility] insurance [id number] 01/29 01/29 [facility] info dc-7c0j-soe /2015 Family Practice 3-3n62pf978 & and fb0 [facility] insurance [id number] 01/29 01/29 [facility] info 20-6td3-g5c /2015 Family Practice a-848949qxk & and b12 [facility] insurance [id number] 01/29 01/29 [facility] info 7c-4250-ab4 /2015 Family Practice c-72q8546h0 & and a20 [facility] insurance [id number] 01/29 01/29 [facility] info f6-4705-85e /2015 Family Practice d-i9e92181w & and 988 [facility] insurance [id number] 01/29 01/29 [facility] info [id number] /2015 Family Practice 8-787n216yb & and 05c [facility] insurance [id number] 01/29 01/29 [facility] info 0a-3l8d-94v /2015 Family Practice a-hot83r594 & and e08 [facility] insurance [id number] 01/29 01/29 [facility] info e3-4l7i-d17 /2015 Family Practice 7-a8a292864 & and 1e5 [facility] insurance [id number] 01/29 01/29 [facility] info 16-4aea-9f3 /2015 Family Practice b-38453j16j & and 979 [facility] insurance [id number] 01/29 01/29 [facility] [employer] 8e-4d89-326 /2015 Family Practice a-81k383av6 & and 7da [facility] insurance [id number] 01/29 01/29 [facility] info ca-0r6o-sl7 /2015 Family Practice a-j216v51x4 & and 9a0 [facility] insurance [id number] 01/29 01/29 [facility] info [id number]-910 /2015 Family Practice d-m2xw1690a & and 74b [facility] insurance [id number] 01/29 01/29 [facility] info ae-0sn8-97y /2015 Family Practice 3-6zuon0574 & and db8 [facility] insurance [id number] 01/29 01/29 [facility] info 51-3hs5-bbk /2015 Family Practice a-h592k967m & and 6fc [facility] insurance [id number] 01/29 01/29 [facility] info [id number] /2015 Family Practice 5-5d5s37566 & and 392 [facility] insurance [id number] 01/29 01/29 [facility] info [id number]-f46 /2015 Family Practice d-[id number] & and c46 [facility] insurance [id number] 01/29 01/29 [facility] info [id number]-b00 /2015 Family Practice c-41f1185u9 & and e77 [facility] insurance [id number] 01/29 01/29 [facility] info [phone] /2015 Family Practice 6-43rj584st & and 802 [facility] insurance [id number] 01/29 01/29 [facility] info [id number] /2015 Family Practice 0-awq1k877l & and c0a [facility] insurance [id number] 01/29 01/29 [facility] info [id number] /2015 Family Practice 5-t4o7su2q5 & and c71 [facility] insurance [id number] 01/29 01/29 [facility] info ef-42ff-8c6 /2015 Family Practice [id number] & and ae5 [facility] Refill [id number] 01/30 01/30 [facility] 57-45bf-81a /2015 Family Practice 6-221874814 & and 8a4 [facility] Ref[facility] [id number] 01/30 01/30 [facility] ed-4015-b33 /2015 Family Practice c-5e29r03ff & and 7fd [facility] Refill [id number] 01/30 01/30 [facility] 45-45be-845 /2015 Family Practice 6-85303wf28 & and f7b [facility] Refill [id number] 01/30 01/30 [facility] 97-00m3-478 /2015 Family Practice b-875483pox & and dac [facility] Refill [id number] 01/30 01/30 [facility] 22-16u2-14u /2015 Family Practice 8-s59823ddn & and 0e0 [facility] Refill [id number] 01/30 01/30 [facility] cb-49bf-8e5 /2015 Family Practice 0-r1y464xds & and 6f1 [facility] Ref[facility] [id number] 01/30 01/30 [facility] 3c-25n2-5c7 /2015 Family Practice 1-izf2o2655 & and 30e [facility] Refill 5avw2c1d-1801/30 [facility] c2-1y25-t5b /2015 Family Practice c-3p43o9017 & and 8a8 Internal [facility] Refill [id number] 01/30 01/30 [facility] 9b-4778-90f /2015 Family Practice c-26r757j44 & and 645 [facility] Refill [id number] 01/30 01/30 [facility] 28-5q7o-338 /2015 Family Practice 5-088cm168v & and 391 [facility] Refill [id number] 01/30 01/30 [facility] fe-4078-bc1 /2015 Family Practice 5-8hwn6j838 & and f1e [facility] Refill [id number] 01/30 01/30 [facility] 04-9d33-352 /2015 Family Practice 2-n29im920v & and 48c [facility] Refill [id number] 01/30 01/30 [facility] 7a-492e-b5c /2015 Family Practice b-c5c4h276e & and 009 [facility] Refill [id number] 01/30 01/30 [facility] 06-4101-974 /2015 Family Practice 8-vh69f43yf & and f63 [facility] Ref[facility] [id number] 01/30 01/30 [facility] 5f-4eba-8a7 /2015 Family Practice 5-839569yu3 & and 5ee [facility] Refill [id number] 01/30 01/30 [facility] 6b-72s0-x8v /2015 Family Practice e-0uh2822nj & and b4c [facility] Refill [id number] 01/30 01/30 [facility] 1d-4700-b91 /2015 Family Practice a-[id number] & and eef [facility] Refill [id number] 01/30 01/30 [facility] 73-4496-aaa /2015 Family Practice 3-5w15y1l7c & and 974 [facility] Refill [id number] 01/30 01/30 [facility] cd-4r91-pqp /2015 Family Practice 9-1z40651y4 & and 230 [facility] Refill [id number] 01/30 01/30 [facility] 23-49dc-924 /2015 Family Practice 6-hh1550826 & and 688 [facility] Refill [id number] 01/30 01/30 [facility] 8b-88e1-mn1 /2015 Family Practice 5-93k2323cv & and 7f1 [facility] Refill [id number] 01/30 01/30 [facility] f3-4a6o-286 /2015 Family Practice 2-97h1k44i0 & and 3e9 [facility] Refill [id number] 01/30 01/30 [facility] 3d-4041-b5c /2015 Family Practice a-26872ovu8 & and 2a1 [facility] Refill [id number] 01/30 01/30 [facility] 31-85a1-hoq /2015 Family Practice 9-9534u5804 & and 0b8 [facility] Refill [id number] 01/30 01/30 [facility] c9-2nh1-t40 /2015 Family Practice 9-5x1842596 & and 788 [facility] Refill [id number] 01/30 01/30 [facility] 42-3gg2-57q /2015 Family Practice 4-6wdt8f143 & and 688 [facility] Refill [id number] 01/30 01/30 [facility] 30-4386-af0 /2015 Family Practice c-49s744u08 & and b7a [facility] Refill [id number] 01/30 01/30 [facility] f8-4591-a21 /2015 Family Practice b-13424sd9i & and f6f [facility] Refill [id number] 01/30 01/30 [facility] 74-4cba-a5a /2015 Family Practice 5-8mq051f8j & and 8c9 [facility] Refill [id number]-dj 01/30 01/30 [facility] 22-34o8-m5m /2015 Family Practice c-3y43s342e & and 813 [facility] Refill [id number] 02/04 02/04 [facility] 9c-4103-8c6 /2015 Family Practice 2-lmn328jv5 & and moris [facility] Refill [id number] 02/04 02/04 [facility] d7-9ca2-76f /2015 Family Practice 7-3014b9666 & and 7b6 [facility] Refill [id number] 02/04 02/04 [facility] d5-4104-9fb /2015 Family Practice 8-s4k5xx42o & and d4a [facility] Refill [id number] 02/04 02/04 [facility] 6f-38j7-545 /2015 Family Practice a-98xea2589 & and 552 [facility] Refill [id number] 02/04 02/04 [facility] 8d-8a1n-37b /2015 Family Practice 6-0y772j709 & and fe3 [facility] Refill [id number] 02/04 02/04 [facility] c9-486b-a53 /2015 Family Practice 7-5u6y82k4x & and 1de [facility] Refill [id number] 02/04 02/04 [facility] ad-9w6h-s5f /2015 Family Practice 4-4829197vd & and ab5 [facility] Refill [id number] 02/04 02/04 [facility] d3-4780-bd4 /2015 Family Practice 0-78w9wbr50 & and 1ef [facility] Refill [id number] 02/04 02/04 [facility] 6b-4fdf-9ec /2015 Family Practice 7-05r6fdhr3 & and dc6 [facility] Refill [id number] 02/04 02/04 [facility] 2b-4f72-v2a /2015 Family Practice a-02l4c101k & and f52 [facility] Refill [id number] 02/04 02/04 [facility] bb-4667-bfd /2015 Family Practice 8-wg0439d74 & and 8c2 [facility] Refill [id number]-ki 02/04 02/04 [facility] d1-5v24-333 /2015 Family Practice c-zyzodr5aa & and 4b1 [facility] Refill [id number] 02/04 02/04 [facility] f4-4s8g-w61 /2015 Family Practice 8-568cc36yv & and 900 [facility] Refill [id number] 02/04 02/04 [facility] 53-3cp8-6q7 /2015 Family Practice 0-f20in9813 & and 375 [facility] Refill [id number] 02/04 02/04 [facility] 94-4295-8ce /2015 Family Practice a-28o27zqs7 & and 081 [facility] Ref[facility] [id number] 02/04 02/04 [facility] 91-46ee-90f /2015 Family Practice 2-x3t2488tq & and 65c [facility] Refill [id number] 02/04 02/04 [facility] 68-4746-af1 /2015 Family Practice 3-698q16qc6 & and ac5 [facility] Refill [id number] 02/04 02/04 [facility] ef-479f-a3f /2015 Family Practice f-8392g4sjp & and 3ba [facility] Refill [id number] 02/04 02/04 [facility] 50-401d-9fb /2015 Family Practice 2-kpo114154 & and 6e0 [facility] Refill [id number] 02/04 02/04 [facility] c6-5ok3-vb0 /2015 Family Practice a-2o0cube24 & and d81 [facility] Refill [id number] 02/04 02/04 [facility] 2b-4651-af2 /2015 Family Practice 3-16x6ny5d7 & and bab [facility] Refill [id number] 02/04 02/04 [facility] ed-81n0-662 /2015 Family Practice a-h18068p0r & and ac3 [facility] Refill [id number] 02/04 02/04 [facility] 08-4438-bf4 /2015 Family Practice 2-13hoy244f & and ca7 [facility] Refill [id number] 02/04 02/04 [facility] d1-60q2-99z /2015 Family Practice a-7sb060w6f & and 3ac [facility] Refill [id number] 02/04 02/04 [facility] c8-4255-a79 /2015 Family Practice e-0296905uf & and c3b [facility] Refill [id number] 02/04 02/04 [facility] 07-1ut7-1vs /2015 Family Practice 1-2679pv197 & and 98b [facility] Refill [id number] 02/04 02/04 [facility] cc-29r0-1x0 /2015 Family Practice 0-w76o4n194 & and 706 [facility] Refill [id number] 02/04 02/04 [facility] a5-4629-8f9 /2015 Family Practice a-84177su24 & and 324 [facility] Refill [id number]-[id number] 02/04 02/04 [facility] 5d-4477-814 /2015 Family Practice 4-b1f1289l1 & and 440 [facility] Blood [id number] 02/06 02/06 [facility] Cor[facility] db-0n84-221 /2015 Family Practice f-fc1l8966d & and 525 [facility] Blood [id number] 02/06 02/06 [facility] 05-4876-a6f /2015 Family Practice f-ow4bewo26 & and 2e5 [facility] Blood [id number] 02/06 02/06 [facility] Cor[facility] f1-4928-9d1 /2015 Family Practice 0-rb1qu276b & and 0b4 [facility] Blood [id number] 02/06 02/06 [facility] cc-486b-b0b /2015 Family Practice f-f9s2qcy12 & and 89a [facility] Blood [id number] 02/06 02/06 [facility] Cor[facility] d5-4267-aac /2015 Family Practice e-e83s90821 & and f24 [facility] Blood [id number] 02/06 02/06 [facility] e3-35t9-dv1 /2015 Family Practice 0-6u1t06sc1 & and 703 [facility] Blood [id number]-g2 02/06 02/06 [facility] harris-Roxanne a7-414e-b69 /2015 Family Practice 6-9q7h15aaz & and 001 [facility] Blood [id number] 02/06 02/06 [facility] harris-Roxanne c9-47df-998 /2015 Family Practice 3-sq969118g & and 15b [facility] Blood [id number] 02/06 02/06 [facility] harris-Roxanne b3-7td0-6h1 /2015 Family Practice b-88e891152 & and a6f [facility] Blood [id number]-79 02/06 02/06 [facility] Cao e4-4127-a40 /2015 Family Practice d-i68b45743 & and d93 [facility] Blood [id number]-s5 02/06 02/06 [facility] harris-Roxanne ae-4049-843 /2015 Family Practice 1-o259mv8v4 & and 9bd [facility] Blood [id number]-t1 02/06 02/06 nOeil Negron [employer]oxanne 0a-4027-8f5 /2015 Family Practice f-7id948629 & and 012 [facility] Blood [id number]/06 [facility] [employer] 3e-4046-9b6 /2015 Family Practice f-t1qp9996x & and bf8 [facility] Blood [id number] 02/06 02/06 [facility] [employer] f3-4755-a4a /2015 Family Practice 0-997128940 & and 4a3 [facility] Blood [id number] 02/06 02/06 [facility] [employer] d3-4a06-hz5 /2015 Family Practice 5-mf00d59e2 & and 84a [facility] Blood [id number] 02/06 02/06 [facility] [employer] 54-71n6-38l /2015 Family Practice 9-v68a5e643 & and 61d [facility] Blood [id number] 02/06 02/06 [facility] [employer]ox[employer] d4-419b-aa4 /2015 Family Practice e-5s8lpu31l & and 3fb [facility] Blood [id number] 02/06 02/06 [facility] sinRoxanne b1-4705-849 /2015 Family Practice 1-6ww8s1z5q & and f59 [facility] Blood [id number] 02/06 02/06 [facility] [employer] 4d-4025-8d5 /2015 Family Practice 7-dcffeedee & and ad5 [facility] Blood [id number] 02/06 02/06 [facility] [employer] 60-451c-b99 /2015 Family Practice 7-y22982c37 & and 817 [facility] Blood [id number] 02/06 02/06 [facility] [employer] 0f-4739-a99 /2015 Family Practice 5-59575622d & and bde [facility] Blood [id number] 02/06 02/06 [facility] [employer] 94-4848-b00 /2015 Family Practice a-947h7064v & and eb7 [facility] Blood [id number] 02/06 02/06 [facility] 73-5q87-p3x /2015 Family Practice 5-r0p48h03f & and ecb [facility] Blood [id number] 02/06 02/06 [facility] Advestigoa 23-4567-joselyn /2015 Family Practice d-925f984lv & and dd0 [facility] Blood [id number] 02/06 02/06 [facility] sinRoxanne ec-3m9b-122 /2015 Family Practice 8-074692l9u & and e52 [facility] Blood [id number] 02/06 02/06 [facility] Cao 6b-4833-93a /2015 Family Practice 8-c7212sc6h & and 67f [facility] Blood [id number] 02/06 02/06 [facility] 17-6m2b-61x /2015 Family Practice 4-q377ds39c & and 81c [facility] Blood [id number] 02/06 02/06 [facility] 25-4843-a36 /2015 Family Practice 2-8e9l79w27 & and 975 [facility] Unknown [id number] 02/11 02/11 [facility] ba-4cca-988 /2015 Family Practice e-6077r1v97 & and 02e [facility] Unknown [id number] 02/11 02/11 [facility] 16-7ur4-y3m /2015 Family Practice 1-7o6tzhw46 & and fbc [facility] Unknown [id number] 02/11 02/11 [facility] e4-95q8-1n1 /2015 Family Practice 0-dde17094d & and 298 [facility] Unknown 7vkyw9by-an 02/11 02/11 [facility] 9e-443b-97b /2015 Family Practice b-k2ahn3r32 & and 302 [facility] Unknown [id number] 02/11 02/11 [facility] 98-4xw5-qip /2015 Family Practice c-56o932l53 & and 179 [facility] Unknown [id number] 02/11 02/11 [facility] 5a-57z6-740 /2015 Family Practice 2-9e378szv1 & and 99e [facility] Unknown [id number] 02/11 02/11 [facility] e0-77b5-144 /2015 Family Practice d-i07t92397 & and de0 [facility] Unknown [id number] 02/11 02/11 [facility] 06-4222-9c2 /2015 Family Practice c-8e227x787 & and 190 [facility] Unknown [id number] 02/11 02/11 [facility] e1-425d-b54 /2015 Family Practice 5-wh2254850 & and 876 [facility] Unknown [id number] 02/11 02/11 [facility] 26-4052-800 /2015 Family Practice 7-1061z61m6 & and b1a [facility] Unknown [id number] 02/11 02/11 [facility] 56-4988-830 /2015 Family Practice b-0776645qv & and 052 [facility] Unknown [id number] 02/11 02/11 [facility] e7-451b-a43 /2015 Family Practice 3-856ws8c49 & and 050 [facility] Unknown [id number] 02/11 02/11 [facility] 27-0j6p-x10 /2015 Family Practice 5-qm2z088r2 & and 7da [facility] Unknown [id number] 02/11 02/11 [facility] d3-18o3-hhw /2015 Family Practice 9-435wpi571 & and f39 [facility] Unknown [id number] 02/11 02/11 [facility] f6-472e-bf4 /2015 Family Practice f-3h435z6g7 & and de1 [facility] Unknown [id number] 02/11 02/11 [facility] 17-7w89-695 /2015 Family Practice b-27weq3491 & and 95b [facility] Unknown [id number] 02/11 02/11 [facility] 94-4187-a7c /2015 Family Practice e-wfd44m601 & and ae7 [facility] Unknown [id number] 02/11 02/11 [facility] 53-0y93-k7e /2015 Family Practice a-1hw60jlu5 & and 9b8 [facility] Unknown [id number] 02/11 02/11 [facility] ff-4841-a1e /2015 Family Practice a-0tzqh4317 & and ff5 [facility] Unknown [id number] 02/11 02/11 [facility] 85-4429-b9d /2015 Family Practice 1-9h8bk9h3z & and 282 [facility] Unknown [id number] 02/11 02/11 [facility] 0e-4568-9a1 /2015 Family Practice 3-u439121a4 & and 183 [facility] Unknown [id number] 02/11 02/11 [facility] c1-34u7-xnz /2015 Family Practice 9-h399i4397 & and e6f [facility] Unknown [id number] 02/11 02/11 [facility] 4f-11m6-l81 /2015 Family Practice a-45800252r & and eb1 [facility] Unknown [id number] 02/11 02/11 [facility] 85-0y03-d12 /2015 Family Practice e-8t9210821 & and 29d [facility] Unknown [id number] 02/11 02/11 [facility] 49-4785-aa5 /2015 Family Practice 3-452aq41k8 & and dd3 [facility] Unknown [id number] 02/11 02/11 [facility] 89-478e-be7 /2015 Family Practice 8-7m1u04459 & and a1f [facility] Unknown [id number] 02/11 02/11 [facility] fc-7t34-eac /2015 Family Practice 1-90369114j & and e3a [facility] Mcdanielcel [id number]-09 03/19 03/19 [facility] 06-1c9u-9w3 /2015 Family Practice Request b-[id number] & and 4d3 [facility] Reschedule [id number] 03/19 03/19 [facility] 4f-460d-942 /2015 Family Practice Request a-02g62hi7d & and e62 [facility] Cancel [id number]-w0 03/19 03/19 [facility] 74-7v5u-669 /2015 Family Practice Request 1-5a557r724 & and a77 [facility] Reschedule [id number] 03/19 03/19 [facility] e3-4780-b37 /2015 Family Practice Request 6-[id number] & and 834 [facility] Cancel [id number] 03/19 03/19 [facility] f2-4845-a3f /2015 Family Practice Request [id number] & and e1e [facility] Reschedule [id number] 03/19 03/19 [facility] a2-17u7-z53 /2015 Family Practice Request [id number] & and 6c0 [facility] Cancel [id number] 03/19 03/19 [facility] a3-7v51-puo /2015 Family Practice Request c-[id number] & and a02 [facility] Reschedule [id number]-93 03/19 03/19 [facility] 0e-485d-chirag /2015 Family Practice Request a-tf3506v34 & and 435 [facility] Cancel [id number] 03/19 03/19 [facility] 3a-4i34-drb /2015 Family Practice Request 1-l226pkyl0 & and 4d5 [facility] Reschedule [id number]-41 03/19 03/19 [facility] 9f-79m6-780 /2015 Family Practice Request [id number] & and d88 [facility] Cancel [id number] 03/19 03/19 [facility] f3-4085-8e1 /2015 Family Practice Request [id number] & and 205 [facility] Reschedule [id number]-e5 03/19 03/19 [facility] 0c-404a-8ba /2015 Family Practice Request 9-l1vc2mn6h & and b99 [facility] Cancel [id number] 03/19 03/19 [facility] 86-1se5-m7n /2015 Family Practice Request b-[id number] & and 3e1 [facility] Reschedule [id number] 03/19 03/19 [facility] 1c-2g61-69y /2015 Family Practice Request 3-[id number] & and 88b [facility] Cancel [id number] 03/19 03/19 [facility] 50-7xd4-029 /2015 Family Practice Request e-[id number] & and 508 [facility] Reschedule [id number] 03/19 03/19 [facility] a7-4520-805 /2015 Family Practice Request c-[id number] & and 238 [facility] Cancel 118p4wkc-z1 03/19 03/19 [facility] 11-77z3-9ec /2015 Family Practice Request e-[id number] & and ad5 [facility] Reschedule [id number] 03/19 03/19 [facility] a1-1t00-lb0 /2015 Family Practice Request 3-[id number] & and 91b [facility] Cancel [id number] 03/19 03/19 [facility] db-4922-8b7 /2015 Family Practice Request 5-[id number] & and 52b [facility] Reschedule [id number]-3z 03/19 03/19 [facility] 5a-4deb-899 /2015 Family Practice Request [id number] & and a43 [facility] Cancel [id number] 03/19 03/19 [facility] 66-47ca-851 /2015 Family Practice Request [id number] & and c6f [facility] Reschedule [id number] 03/19 03/19 [facility] 8b-6t55-577 /2015 Family Practice Request d-[id number] & and de0 [facility] Cancel [id number] 03/19 03/19 [facility] a4-4eba-825 /2015 Family Practice Request [id number] & and 470 [facility] Reschedule [id number] 03/19 03/19 [facility] a9-0e2u-494 /2015 Family Practice Request c-[id number] & and 643 [facility] Cancel [id number] 03/19 03/19 [facility] c4-4833-813 /2015 Family Practice Request f-[id number] & and 236 [facility] Reschedule [id number] 03/19 03/19 [facility] 1f-3k01-o2d /2015 Family Practice Request [id number] & and 2a8 [facility] Cancel [id number] 03/19 03/19 [facility] 70-3pi0-q07 /2015 Family Practice Request [id number] & and 82f [facility] Reschedule [id number] 03/19 03/19 [facility] 5f-458e-9fa /2015 Family Practice Request [id number] & and 363 [facility] Cancel [id number] 03/19 03/19 [facility] 63-4454-a16 /2015 Family Practice Request c-[id number] & and f77 [facility] Reschedule [id number] 03/19 03/19 [facility] 4d-7o88-283 /2015 Family Practice Request 7-[id number] & and 7ed [facility] Cancel [id number] 03/19 03/19 [facility] 25-414f-b10 /2015 Family Practice Request [id number] & and e29 [facility] Reschedule [id number] 03/19 03/19 [facility] 48-6u5x-uu1 /2015 Family Practice Request 7-[id number] & and 641 [facility] Cancel [id number] 03/19 03/19 [facility] ad-4800-81f /2015 Family Practice Request [id number] & and 224 [facility] Reschedule [id number] 03/19 03/19 [facility] f7-4zv3-75c /2015 Family Practice Request 3-[id number] & and 6b5 [facility] Cancel [id number] 03/19 03/19 [facility] d7-4460-a98 /2015 Family Practice Request b-[id number] & and 7f9 [facility] Reschedule [id number] 03/19 03/19 [facility] 09-8zk7-bqo /2015 Family Practice Request 7-[id number] & and 145 [facility] Cancel [id number] 03/19 03/19 [facility] f7-4560-87a /2015 Family Practice Request a-[id number] & and 605 [facility] Reschedule [id number] 03/19 03/19 [facility] f6-7pz1-fz9 /2015 Family Practice Request [id number] & and 857 [facility] Cancel [id number] 03/19 03/19 [facility] 53-483e-b00 /2015 Family Practice Request b-[id number] & and 783 [facility] Reschedule [id number] 03/19 03/19 [facility] ab-2v85-m6j /2015 Family Practice Request 7-[id number] & and d42 [facility] Cancel [id number] 03/19 03/19 [facility] 83-1he4-vr9 /2015 Family Practice Request [id number] & and b8d [facility] Reschedule [id number] 03/19 03/19 [facility] Appointment ae-2g42-h3q /2015 Family Practice Request [id number] & and b05 [facility] Cancel [id number] 03/19 03/19 [facility] 3a-0o84-597 /2015 Family Practice Request 9-d1e7j0a33 & and 885 [facility] Reschedule [id number] 03/19 03/19 [facility] c8-4450-9e3 /2015 Family Practice Request [id number] & and bad [facility] Cancel [id number] 03/19 03/19 [facility] d5-4154-b1f /2015 Family Practice Request [id number] & and e44 [facility] Reschedule af2xgd8d-r4 03/19 03/19 [facility] b2-62u1-z57 /2015 Family Practice Request [id number] & and 850 [facility] Cancel ue0h35t8-08 03/19 03/19 [facility] 27-7v5m-786 /2015 Family Practice Request d-[id number] & and 0ec [facility] Reschedule [id number] 03/19 03/19 [facility] d8-497c-980 /2015 Family Practice Request 0-1228q60f5 & and bc1 [facility] Cancel [id number] 03/19 03/19 [facility] c4-2z2r-467 /2015 Family Practice Request [id number] & and 4df [facility] Reschedule [id number]-91 03/19 03/19 [facility] 65-4221-82c /2015 Family Practice Request c-[id number] & and e88 [facility] Cancel [id number] 03/19 03/19 [facility] ed-8s3r-9n5 /2015 Family Practice Request [id number] & and a9a [facility] Reschedule [id number] 03/19 03/19 [facility] f7-8i15-48j /2015 Family Practice Request 3-[id number] & and 1c6 [facility] appt [id number] 03/23 03/23 [facility] d9-423a-8b2 /2015 Family Practice 2-979u31932 & and 4e7 [facility] appt [id number] 03/23 03/23 [facility] 36-4967-ac4 /2015 Family Practice 1-664vw58ai & and 2cc [facility] appt [id number] 03/23 03/23 [facility] 50-5l89-h79 /2015 Family Practice 6-a8vp5b1ow & and f02 [facility] appt [id number] 03/23 03/23 [facility] fa-4234-947 /2015 Family Practice 1-2u8bj496o & and 99d [facility] appt [id number] 03/23 03/23 [facility] 3e-44ab-af4 /2015 Family Practice e-[id number] & and f61 [facility] appt [id number] 03/23 03/23 [facility] a8-468b-949 /2015 Family Practice e-[id number] & and 762 [facility] appt [id number] 03/23 03/23 [facility] d5-4188-8d2 /2015 Family Practice 8-8bsd9yc11 & and 40d [facility] appt [id number] 03/23 03/23 [facility] 70-40cf-8d2 /2015 Family Practice 6-42e14655e & and 215 [facility] appt [id number]-y2 03/23 03/23 [facility] 7f-34p8-b9k /2015 Family Practice 8-49x268035 & and c61 [facility] appt [id number] 03/23 03/23 [facility] 53-45bc-865 /2015 Family Practice 8-1dvww4x07 & and b8f [facility] appt [id number] 03/23 03/23 [facility] f1-6o11-27y /2015 Family Practice 4-e9vwlc8x1 & and 2ad [facility] appt [id number] 03/23 03/23 [facility] c3-4452-abc /2015 Family Practice 4-53o3w1903 & and 95c [facility] appt [id number] 03/23 03/23 [facility] 72-60x3-498 /2015 Family Practice 9-547283u88 & and 533 [facility] appt [id number] 03/23 03/23 [facility] d7-4059-a76 /2015 Family Practice 2-ua192555u & and 574 [facility] appt [id number] 03/23 03/23 [facility] ab-45bb-aef /2015 Family Practice 9-7tzn4f299 & and e94 [facility] appt [id number] 03/23 03/23 [facility] 3d-85m1-2h5 /2015 Family Practice [id number] & and be8 [facility] appt [id number] 03/23 03/23 [facility] 86-44bf-844 /2015 Family Practice 5-31ap7b17q & and 9eb [facility] appt [id number] 03/23 03/23 [facility] 29-491e-ba3 /2015 Family Practice d-0785xi3ey & and 7ff [facility] [id number] 03/23 03/23 [facility] bc-43n5-c78 /2015 Family Practice 1-0ko0v67i9 & and 603 [facility] appt [id number] 03/23 03/23 [facility] 52-7c9m-732 /2015 Family Practice d-59r4357ws & and ec4 [facility] appt [id number] 03/23 03/23 [facility] d7-49ce-af0 /2015 Family Practice 8-a5f585235 & and 4a0 [facility] appt [id number]-7j 03/23 03/23 [facility] e2-405a-be0 /2015 Family Practice a-921n5821b & and 1a8 [facility] appt [id number]-51 03/23 03/23 [facility] 74-4630-a75 /2015 Family Practice b-y021c29n9 & and 6ae [facility] appt [id number] 03/23 03/23 [facility] e6-4719-872 /2015 Family Practice f-006j8930l & and 032 [facility] appt [id number] 03/30 03/30 [facility] e7-18c2-ivz /2015 Family Practice f-2e316838v & and f5a [facility] appt [id number] 03/30 03/30 [facility] b9-4024-richadr /2015 Family Practice b-y7ie20s66 & and 671 [facility] appt [id number]-s4 03/30 03/30 [facility] de-2s7s-9g8 /2015 Family Practice 9-2rm3607dg & and e89 [facility] appt [id number] 03/30 03/30 [facility] 38-4552-bbd /2015 Family Practice 1-k1h127q9g & and 087 [facility] appt [id number] 03/30 03/30 [facility] 4b-0hm1-qoe /2015 Family Practice 1-g3nl2153c & and c90 [facility] appt [id number] 03/30 03/30 [facility] be-71d2-e9k /2015 Family Practice 5-k0q1gg20m & and 27e [facility] appt [id number] 03/30 03/30 [facility] 1b-2xq4-ck4 /2015 Family Practice a-3ty21s380 & and 385 [facility] appt [id number] 03/30 03/30 [facility] f5-4t5t-43q /2015 Family Practice f-8pj070m44 & and 444 [facility] appt [id number] 03/30 03/30 [facility] 25-0g7j-i71 /2015 Family Practice 0-y0i2h1890 & and 34d [facility] appt [id number] 03/30 03/30 [facility] 8c-4884-ac0 /2015 Family Practice 0-0c19452e7 & and 273 [facility] appt [id number] 03/30 03/30 [facility] bf-1n00-p2j /2015 Family Practice 6-iu39rgmmq & and 439 [facility] appt [id number] 03/30 03/30 [facility] 64-46db-88c /2015 Family Practice 1-1wj01m50z & and 629 [facility] appt [id number] 03/30 03/30 [facility] 7c-4229-87d /2015 Family Practice 0-9o62h5007 & and 081 [facility] appt [id number] 03/30 03/30 [facility] dc-8v18-168 /2015 Family Practice f-hoyj17j7i & and 013 [facility] appt [id number] 03/30 03/30 [facility] 2c-40ca-82f /2015 Family Practice 9-525610083 & and 2b4 [facility] appt [id number] 03/30 03/30 [facility] 58-4aaf-8c9 /2015 Family Practice d-744oc38v8 & and 214 [facility] appt [id number] 03/30 03/30 [facility] fa-4n3p-b4r /2015 Family Practice e-081omw201 & and 04b [facility] appt [id number] 03/30 03/30 [facility] 3b-1f1j-q58 /2015 Family Practice b-1ti936ib2 & and b7a [facility] appt [id number] 03/30 03/30 [facility] 1b-9f7f-3fd /2015 Family Practice 1-95k4568j9 & and bd4 [facility] appt [id number] 03/30 03/30 [facility] 8c-4605-bd2 /2015 Family Practice 0-9d620df2p & and ac0 [facility] appt [id number] 03/30 03/30 [facility] 3c-445a-b25 /2015 Family Practice 4-x4d1217s3 & and 294 [facility] appt [id number]-r0 03/30 03/30 [facility] 08-423a-bd3 /2015 Family Practice 4-nvb5pou86 & and cbf [facility] appt [id number] 03/30 03/30 [facility] 10-76e9-k7z /2015 Family Practice 9-1yj911cey & and b7a [facility] appt. 2n3l0ml9-yx 05/18 05/18 [facility] 8f-413e-828 /2015 Family Practice 7-57475w40i & and 037 [facility] appt. [id number] 05/18 05/18 [facility] a1-70d3-re4 /2015 Family Practice d-5c63f860w & and bbf [facility] appt. [id number] 05/18 05/18 [facility] 65-06b6-t8a /2015 Family Practice 8-j26um6n7p & and 03d [facility] appt. [id number] 05/18 05/18 [facility] 84-4529-b8b /2015 Family Practice 3-kl7sct97l & and 9ba [facility] appt. [id number]-n5 05/18 05/18 [facility] 9b-46ba-b78 /2015 Family Practice 5-80ao5z640 & and d67 [facility] appt. [id number] 05/18 05/18 [facility] 51-75d8-c2l /2015 Family Practice d-12hm34d87 & and 7a5 [facility] appt. e2z5b3q5-0m 05/18 05/18 [facility] 18-74r5-250 /2015 Family Practice 8-292uj7869 & and de2 [facility] appt. [id number]-vl 05/18 05/18 [facility] ce-3t37-t2l /2015 Family Practice 2-00ls9j6t6 & and f21 [facility] appt. [id number] 05/18 05/18 [facility] b6-4cef-a90 /2015 Family Practice e-9jd8xk86g & and 557 [facility] appt. [id number]-hz 05/18 05/18 [facility] 94-30b3-59y /2015 Family Practice 9-ji8062c4w & and 323 [facility] appt. [id number] 05/18 05/18 [facility] ec-48ae-b76 /2015 Family Practice 2-7mhj030ed & and 131 [facility] appt. 25hh79b8-08 05/18 05/18 [facility] 16-0h97-79s /2015 Family Practice b-9l439es54 & and 82f [facility] appt. [id number] 05/18 05/18 [facility] e3-495d-a7f /2015 Family Practice e-a823b7615 & and 617 [facility] appt. ib30bp09-s4 05/18 05/18 [facility] 78-4860-b2d /2015 Family Practice 7-7rt8hrb92 & and dd2 [facility] appt. 1h338e4d-bi 05/18 05/18 [facility] d5-1eq4-7fe /2015 Family Practice b-59hf5659x & and 2b8 [facility] appt. [id number] 05/18 05/18 [facility] 14-8f38-6o7 /2015 Family Practice 7-63f5b8g31 & and 70d [facility] appt. [id number]-ce 05/18 05/18 [facility] e5-48fb-aad /2015 Family Practice a-43f74hj56 & and 376 [facility] appt. [id number]-00 05/18 05/18 [facility] d0-45n5-j23 /2015 Family Practice 0-wme3d83j4 & and f09 [facility] appt. [id number]-71 05/18 05/18 [facility] 87-4764-b9a /2015 Family Practice 7-41q1t5q37 & and 4d5 [facility] appt. [id number] 05/18 05/18 [facility] 1b-4834-a3f /2015 Family Practice c-04nj549u2 & and 9bd [facility] appt. [id number] 05/18 05/18 [facility] f2-6b24-763 /2015 Family Practice 1-970wqc1am & and 63a [facility] appt. 6l3rq1s0-13 05/18 05/18 [facility] ce-45dd-950 /2015 Family Practice 0-26010s43j & and ed8 [facility] Right ear b334za5m-gp 05/19 05/19 [facility] d1-0v53-229 /2015 Family Practice a-k5403jl77 & and ca8 [facility] Right ear [id number] 05/19 05/19 [facility] f4-4301-953 /2015 Family Practice 7-jivgcy883 & and 938 [facility] Right ear [id number]-98 05/19 05/19 [facility] 05-4471-a2a /2015 Family Practice 7-d70329j5l & and 500 [facility] Right [facility] x2krgo0j-cl 05/19 05/19 [facility] 5d-6j52-k51 /2015 Family Practice 0-9k0d2kf4j & and 286 [facility] Right ear 76z0p38k-68 05/19 05/19 [facility] 79-4587-9b7 /2015 Family Practice 4-qr61a5a9q & and 613 [facility] Right ear 5r8p6z51-79 05/19 05/19 [facility] 76-29y8-604 /2015 Family Practice d-p4vy665d8 & and a4d [facility] Right ear 672t227g-b7 05/19 05/19 [facility] 44-71k9-pow /2015 Family Practice 8-4s473240l & and 2af [facility] 9n4ypb1x-2p 05/19 05/19 [facility] 88-4820-bcc /2015 Family Practice d-8ygkde0q8 & and d4a [facility] Right ear 842s20f0-a4 05/19 05/19 [facility] 75-2gt6-1a7 /2015 Family Practice b-71ih259n4 & and d8d [facility] Right ear 57le474u-59 05/19 05/19 [facility] 56-489d-a9c /2015 Family Practice f-19383s07m & and e60 [facility] Right [facility] a3umq29i-i5 05/19 05/19 [facility] 61-4efe-bb9 /2015 Family Practice f-18ol5i4b3 & and 162 [facility] Right [facility] 58a6bej2-7b 05/19 05/19 [facility] 30-4089-b34 /2015 Family Practice 7-99h34665p & and bc4 [facility] Right ear 59jth388-56 05/19 05/19 [facility] 46-8b93-x07 /2015 Family Practice a-6t2moiz19 & and 537 [facility] Right ear 724ddr5d-54 05/19 05/19 [facility] 98-40bd-a56 /2015 Family Practice 1-wm52509f3 & and ba1 [facility] Right [facility] 3m3i5566-zk 05/19 05/19 [facility] 8e-4889-b5f /2015 Family Practice 0-7gci95h55 & and 334 [facility] Right [facility] 1o39r96v-34 05/19 05/19 [facility] 53-4941-910 /2015 Family Practice 7-f67c34526 & and 3ed [facility] 6b6arb34-c8 05/19 05/19 [facility] 9e-3y87-81e /2015 Family Practice 8-nf17154ry & and 2d7 [facility] Right [facility] g56f87va-09 05/19 05/19 [facility] f8-4323-827 /2015 Family Practice 5-1203s4c19 & and 02e [facility] 80i4w8ld-k9 05/19 05/19 [facility] 02-81g5-19q /2015 Family Practice d-f7079d3h7 & and e23 [facility] 0mxfy262-80 05/19 05/19 [facility] f1-4703-81e /2015 Family Practice 1-70762m1b7 & and 1da [facility] Right ear 38764dv5-vr 05/19 05/19 [facility] c3-4821-b5a /2015 Family Practice 4-rw0798ylz & and 00f [facility] 4 week f620f484-50 06/16 06/16 [facility] fa-423d-b48 /2015 Family Practice 4-mos82om36 & and c9f [facility] 4 week [id number] 06/16 06/16 [facility] 94-4252-946 /2015 Family Practice 4-3mo47xsh4 & and c85 [facility] 4 week g45f72m4-vm 06/16 06/16 [facility] 95-1wl5-4us /2015 Family Practice a-88azv8csr & and 538 [facility] 4 week 063x31jj-tq 06/16 06/16 [facility] ca-422f-9ff /2015 Family Practice 3-9hwj67e72 & and 296 [facility] 4 week 24m40633-5k 06/16 06/16 [facility] e7-4fde-904 /2015 Family Practice c-897e273h5 & and 69b [facility] 4 week iy441635-j9 06/16 06/16 [facility] bf-3ds4-7k8 /2015 Family Practice b-fp34q2iuy & and df0 [facility] 4 week 6uw14a44-95 06/16 06/16 [facility] ce-8c96-223 /2015 Family Practice e-223o25743 & and 198 [facility] 4 week 411fc24r-zb 06/16 06/16 [facility] c6-45fd-98c /2015 Family Practice 9-177e389ht & and a0b [facility] 4 week 519a942v-03 06/16 06/16 [facility] 3c-464f-8cc /2015 Family Practice 6-95rf00gm6 & and 3e4 [facility] 4 week 78544v59-pa 06/16 06/16 [facility] d8-67a1-s9i /2015 Family Practice 4-4k50k8m1h & and d1a [facility] 4 week 55qt765c-j1 06/16 06/16 [facility] ce-1x28-i03 /2015 Family Practice 7-708kf554q & and 741 [facility] 4 week 1933br06-26 06/16 06/16 [facility] dd-4x07-j7g /2015 Family Practice 7-78t1r052z & and 456 [facility] 4 week 8wbghg87-24 06/16 06/16 [facility] 54-4506-978 /2015 Family Practice e-2q83f7224 & and 711 [facility] 4 week 38u014ov-u6 06/16 06/16 [facility] 3d-3qx3-k61 /2015 Family Practice 7-sl46u5376 & and 7a0 [facility] 4 week p04603be-u4 06/16 06/16 [facility] 15-4947-883 /2015 Family Practice a-3i374o0jd & and ec9 [facility] 4 week 6m6053l3-8w 06/16 06/16 [facility] e7-4y57-8lt /2015 Family Practice c-h7g074087 & and 36b [facility] 4 week t9fw482g-r7 06/16 06/16 [facility] f9-04a0-f94 /2015 Family Practice 6-24838z05e & and 4c3 [facility] 4 week rw0004y3-12 06/16 06/16 [facility] 54-443e-a16 /2015 Family Practice 6-068u2of7l & and 2a8 [facility] 4 week a9g131w3-45 06/16 06/16 [facility] d2-75i4-yya /2015 Family Practice d-3043acece & and 1c0 [facility] 4 week ygs517fy-vk 06/16 06/16 [facility] b8-4z59-341 /2015 Family Practice 0-6w27q8613 & and 0ed [facility] and 6z51426y-ui 06/18 06/18 [facility] paper to get 80-04s5-j05 /2015 [facility] Practice [facility] 4-a2yw0mx9f & and 2b8 [facility] and 6wt14y40-31 06/18 06/18 [facility] paper to get 2b-1m4l-250 /2015 [facility] 8-79129fk6g & and 389 [facility] and 450ze671-90 06/18 06/18 [facility] paper to get c9-4633-b7e /2015 [facility] 4-641b74ve8 & and f2d [facility]ill and 927kfv03-37 06/18 06/18 [facility] paper to get 3a-21y5-7n6 /2015 [facility] 7-619vc2o76 & and 0a8 [facility] and 154n2cz8-oz 06/18 06/18 [facility] paper to get 08-7w58-3gm /2015 [facility] 5-0oi49q054 & and 03c [facility] and d356w50b-bv 06/18 06/18 [facility] paper to get 58-2l6a-191 /2015 [facility] 2-73187d986 & and 7bd [facility] and 17622c8y-77 06/18 06/18 [facility] paper to get 80-494f-a1b /2015 [facility] 5-fo49t0896 & and 3f9 [facility] and 272fj5e1-g7 06/18 06/18 [facility] paper to get 81-4243-840 /2015 [facility] 0-071922ty6 & and bfa [facility] and 87r6k135-00 06/18 06/18 [facility] paper to get 09-4032-838 /2015 [facility] c-6egy9x506 & and 756 [facility] and 6t6q971c-z3 06/18 06/18 [facility] paper to get 52-0r04-624 /2015 [facility] 2-b03d0847g & and 55a [facility] and c46f4668-m1 06/18 06/18 [facility] paper to get a5-6zt2-zht /2015 [facility] 9-7rll6y569 & and f82 [facility] and jl13030w-c9 06/18 06/18 [facility] paper to get 47-86i6-d81 /2015 [facility] f-t6155f3i1 & and 0db [facility] and 31gsb50k-v2 06/18 06/18 [facility] paper to get cd-74l8-319 /2015 [facility] 8-214w26os0 & and 5b9 [facility] and 548v7365-34 06/18 06/18 [facility] paper to get c0-4444-b35 /2015 [facility] 1-3826xjx8w & and d2f [facility] and 0383t482-04 06/18 06/18 [facility] paper to get c6-42ef-8e4 /2015 [facility] 8-y6q7e4655 & and 846 [facility] and 385h0j46-75 06/18 06/18 [facility] paper to get 7d-4990-866 /2015 [facility] 6-2y6442wou & and 00f [facility] and i583k34e-3w 06/18 06/18 [facility] paper to get b8-2vr4-f09 /2015 [facility] f-wi627k2dm & and a8c [facility] and 204qq004-0d 06/18 06/18 [facility] paper to get f1-48ce-906 /2015 [facility] 2-79yt70240 & and 5cb [facility] and 72fs46x1-ih 06/18 06/18 [facility] paper to get b8-5p97-p39 /2015 [facility] c-8r984z168 & and b9f [facility] Re:RE:refill b7499z20-0c 06/19 06/19 [facility] and paper to 5c-4973-910 /2015 [facility] Practice get [facility] c-137a26o5e & and eb3 [facility] Re:RE:refill 91lv2110-16 06/19 06/19 [facility] and paper to f6-4828-a69 /2015 [facility] Practice [facility] 1-24vxq775k & and 8dd [facility] Re:RE:refill 18s808cl-y6 06/19 06/19 [facility] and paper to fc-4377-b08 /2015 [facility] a-4h24td45y & and 487 [facility] Re:RE:refill t2r4a9z3-j9 06/19 06/19 [facility] and paper to 54-489c-beb /2015 [facility] b-t42622o9r & and dfd [facility] Re:RE:refill q38a18x2-2p 06/19 06/19 [facility] and paper to 9d-38n8-465 /2015 [facility] f-5ag3h46u4 & and e3a [facility] Re:RE:refill 464773h9-61 06/19 06/19 [facility] and paper to ea-49ec-92e /2015 [facility] 3-2ocdng6o7 & and 3ad [facility] Re:RE:refill [id number] 06/19 06/19 [facility] and paper to b3-4645-9dd /2015 [facility] 1-e16175go9 & and 78b [facility] Re:RE:refill 74s00zah-5u 06/19 06/19 [facility] and paper to 69-6m12-l82 /2015 [facility] Practice get [facility] 8-f37v0q9hi & and 820 [facility] [facility] Re:RE:refill 10h88u4o-17 06/19 06/19 [facility] paper to 8f-8u14-rl4 [facility] get [facility]ris f-ge793in21 & and 683 [facility] Re:RE:refill [id number] 06/19 06/19 [facility] to fb-4cbb-a9f /2015 [facility] get [facility] 7-mk0d1i65l & and 606 [facility] Re:RE:refill [id number]-sd 06/19 06/19 [facility] paper to be-4758-af3 /2015 [facility] Practice get [facility] 8-5y9az05fk & and 694 [facility] Re:RE:refill [id number] 06/19 06/19 [facility] paper to 0c-4316-a6e /2015 [facility] get [facility] c-86t2480p3 & and d22 [facility] Re:RE:refill [id number] 06/19 06/19 [facility] paper to 6a-7lj8-co4 /2015 [facility] Practice get [facility] c-iql2c553s & and 973 [facility] Re:RE:refill [id number] 06/19 06/19 [facility] to 0b-4bq2-51y /2015 [facility] Practice get [facility] 6-p7sm8ld9l & and f0c [facility] Re:RE:refill [id number] 06/19 06/19 [facility] to b4-4632-b9a /2015 [facility] get [facility] e-xa74mye3w & and c21 [facility] Re:RE:refill 0x948f0z-60 06/19 06/19 [facility] to e1-9de3-w9n /2015 [facility] get [facility] 7-9962f38f9 & and 969 [facility] Re:RE:refill [id number] 06/19 06/19 [facility] to 26-4615-998 /2015 [facility] get [facility] [id number] & and baf [facility] Re:RE:refill [id number] 06/19 06/19 [facility] to 3d-4473-983 /2015 [facility] get [facility] 9-7377jga0s & and c55 [facility] Re:RE:refill [id number] 06/19 06/19 [facility] to 9f-4u4k-042 /2015 [facility] Practice get [facility] 8-889u2277g & and 50c [facility] issue [id number] 06/22 06/22 [facility] 9a-6k09-964 /2015 Family Practice 0-6ptw610g4 & and 4f6 [facility] issue [id number] 06/22 06/22 [facility] 91-7e60-952 /2015 [facility] Practice e-99vgx6361 & and a4d [facility] issue [id number] 06/22 06/22 [facility] 0a-8jv5-m79 /2015 [facility] Practice 7-v5oh44wz4 & and 3be [facility] issue [id number] 06/22 06/22 [facility] 26-7s72-x8v /2015 [facility] Practice 1-406903w72 & and 283 [facility] issue [id number] 06/22 06/22 [facility] 5d-41fa-943 /2015 [facility] Practice e-8uy0d4421 & and dc2 [facility] issue [id number] 06/22 06/22 [facility] c3-1ro1-988 /2015 [facility] Practice 0-c1jxc9123 & and 4b8 [facility] issue [id number] 06/22 06/22 [facility] db-43ac-a66 /2015 Family Practice d-y3j77l457 & and f69 [facility] issue [id number] 06/22 06/22 [facility] bf-38e1-cyh /2015 Family Practice 7-7h0130i73 & and b55 [facility] Re:RE:issue [id number] 06/22 06/22 [facility] 0b-438f-819 /2015 [facility] Practice 5-a990a2qp3 & and 21a [facility] Re:RE:issue 8g2m8o8l-75 06/22 06/22 [facility] 40-8a30-y5l /2015 Family Practice 6-08kq59vqd & and fd3 [facility] Re:RE:issue [id number] 06/22 06/22 [facility] e5-06v3-j09 /2015 Family Practice b-uz83n3133 & and ruchi [facility] Re:RE:issue [id number] 06/22 06/22 [facility] c1-46ec-969 /2015 [facility] Practice 2-45d8t13z9 & and be0 [facility] Re:RE:issue [id number]-14 06/22 06/22 [facility] 6f-3c46-o8t /2015 Family Practice 4-k84h9b3e8 & and 96b [facility] Re:RE:issue [id number]-w3 06/22 06/22 [facility] 74-4630-904 /2015 Family Practice 6-5179t8h16 & and 613 [facility] Re:RE:issue [id number]-7r 06/22 06/22 [facility] b2-473e-863 /2015 Family Practice 2-qi0t0l46r & and 006 [facility] issue [id number] 06/22 06/22 [facility] d0-2a8r-t2t /2015 Family Practice e-u791v6hm7 & and b44 [facility] issue [id number] 06/22 06/22 [facility] 8a-3wt8-l02 /2015 Family Practice e-5gv582ffe & and 1aa [facility] issue [id number] 06/22 06/22 [facility] 15-1da4-g8h /2015 Family Practice f-c2117592n & and a07 [facility] issue [id number] 06/22 06/22 [facility] c2-3z2e-a83 /2015 Family Practice b-fzb4871a5 & and b4d [facility] issue [id number] 06/22 06/22 [facility] fa-418e-9fe /2015 Family Practice f-[id number] & and df4 [facility] issue [id number] 06/22 06/22 [facility] 3f-4dec-9b2 /2015 Family Practice b-gw37vhm9t & and 0ba [facility] issue [id number] 06/22 06/22 [facility] 73-4534-a7a /2015 Family Practice 7-90b53l5m8 & and 488 [facility] issue [id number] 06/22 06/22 [facility] 4b-4895-9c3 /2015 Family Practice 2-2j313c8m4 & and 22c [facility] issue [id number] 06/22 06/22 [facility] aa-1l60-44x /2015 Family Practice f-1k02i5c13 & and b6a [facility] Re:RE:issue [id number] 06/22 06/22 [facility] 48-5e9n-5gy /2015 Family Practice 0-x7uh785us & and 27d [facility] Re:RE:issue [id number] 06/22 06/22 [facility] ce-4146-98d /2015 Family Practice 8-dvqg77847 & and d06 [facility] Re:RE:issue [id number] 06/22 06/22 [facility] 62-42da-a83 /2015 Family Practice d-7lhnpa757 & and 71b [facility] Re:RE:issue [id number] 06/22 06/22 [facility] 47-4924-8da /2015 Family Practice a-50hi591qh & and 6a7 [facility] Re:RE:issue [id number] 06/22 06/22 [facility] 10-66j3-y2x /2015 Family Practice 3-6p4h05111 & and 8e2 [facility] Re:RE:issue [id number] 06/22 06/22 [facility] c3-4065-b83 /2015 Family Practice 2-7uf6bijt1 & and 8e6 [facility] Re:RE:issue [id number] 06/22 06/22 [facility] 16-4034-8c4 /2015 Family Practice 9-3558z0667 & and 009 [facility] Re:RE:issue [id number] 06/22 06/22 [facility] 8e-464b-a08 /2015 [facility] Practice f-97w25m2x8 & and 36a [facility] Re:RE:issue [id number]-77 06/22 06/22 [facility] bb-4282-b02 /2015 Family Practice 2-7s7uy9758 & and a4b [facility] PT/INR and [id number] 06/23 06/23 [facility] mole 7e-465e-b19 /2015 Family Practice a-hnu52740b & and 8e5 [facility] PT/INR and [id number] 06/23 06/23 [facility] mole 33-400c-a75 /2015 Family Practice 6-59n71m02r & and af6 [facility] PT/INR and [id number] 06/23 06/23 [facility] bf-4377-94e /2015 Family Practice 7-lx21x9m9c & and 62e [facility] PT/INR and 98dwuk7l-jr 06/23 06/23 [facility] 9c-4549-955 /2015 Family Practice d-8776d5510 & and b45 [facility] PT/INR and [id number] 06/23 06/23 [facility] 9f-4819-981 /2015 Family Practice c-0823cvmm4 & and c75 [facility] PT/INR and [id number]-37 06/23 06/23 [facility] 13-4369-ac1 /2015 Family Practice 0-77onh7438 & and 78c [facility] PT/INR and 9i13u9r7-7s 06/23 06/23 [facility] 67-4799-902 /2015 Family Practice e-ovse650p0 & and 5e2 [facility] PT/INR and [id number] 06/23 06/23 [facility] 74-4192-9e5 /2015 Family Practice 1-797851010 & and fe2 [facility] PT/INR and [id number]-l8 06/23 06/23 [facility] 67-24u1-78j /2015 Family Practice c-kzr9b40n4 & and c0d [facility] PT/INR and 0day4l36-y8 06/23 06/23 [facility] 65-1y60-np4 /2015 Family Practice 4-7x7186p89 & and ea2 [facility] PT/INR and 49x0xtb1-80 06/23 06/23 [facility] 29-1hx3-y01 /2015 Family Practice 4-7547f63xn & and f58 [facility] PT/INR and [id number] 06/23 06/23 [facility] mole 09-43dd-b7a /2015 Family Practice a-ncy362o1h & and 8b3 [facility] PT/INR and 84l4u70a-d8 06/23 06/23 [facility] mole e4-7w55-p89 /2015 Family Practice 7-92v1rwq9t & and 5e3 [facility] PT/INR and [id number]-ak 06/23 06/23 [facility] mole bb-4771-97b /2015 Family Practice 9-pi84q4g77 & and 25d [facility] PT/INR and 3v56ov7e-eu 06/23 06/23 [facility] mole b4-4287-bcb /2015 [facility] Practice f-bo5r434f7 & and 210 [facility] Cancel [id number]-f1 07/02 07/02 [facility] 08-449c-9e6 /2015 Family Practice Request 1-s7jp07445 & and 1dd [facility] Cancel [id number] 07/02 07/02 [facility] a1-7y3h-d51 /2015 Family Practice Request f-631rix192 & and 637 [facility] Cancel [id number] 07/02 07/02 [facility] c7-4336-841 /2015 Family Practice Request 4-om039xqi8 & and ca3 [facility] Cancel qh3opi12-hw 07/02 07/02 [facility] 95-27v4-p3h /2015 Family Practice Request 5-23e2q1921 & and 408 [facility] Cancel [id number] 07/02 07/02 [facility] 18-4921-96b /2015 Family Practice Request e-49ll3569o & and a19 [facility] Cancel [id number] 07/02 07/02 [facility] 5b-49ef-b4d /2015 Family Practice Request 5-e65u9p271 & and e00 [facility] Cancel [id number] 07/02 07/02 [facility] b4-446d-92d /2015 Family Practice Request 4-2o7910m0v & and 881 [facility] Cancel [id number]-i7 07/02 07/02 [facility] a5-5dy8-zw5 /2015 Family Practice Request 0-3ue514iy9 & and 97c [facility] Cancel [id number]-68 07/02 07/02 [facility] 18-89i1-jm7 /2015 Family Practice Request b-4b959n3kf & and d1b [facility] Cancel [id number]-96 07/02 07/02 [facility] 0b-400e-b70 /2015 Family Practice Request 9-g67358v98 & and 046 [facility] Cancel p2ddxm6e-c3 07/02 07/02 [facility] cc-486f-bd4 /2015 Family Practice Request 3-x60z5o4o2 & and ef5 [facility] Cancel [id number] 07/02 07/02 [facility] b1-492c-bfa /2015 Family Practice Request b-2sh90m923 & and 011 [facility] Cancel [id number]-98 07/02 07/02 [facility] 6c-7ev7-a88 /2015 Family Practice Request 2-8u392my73 & and c44 [facility] MURPHY/ROXANNE-PT [id number] 07/07 07/07 [facility] /INR 2b-433b-b3b /2015 Family Practice d-8388l17oe & and cdc [facility] NV/ROXANNE-PT [id number] 07/07 07/07 [facility] /INR db-2y01-6t4 /2015 Family Practice d-k8exl1034 & and 773 [facility] MURPHY/ROXANNE-PT [id number] 07/07 07/07 [facility] /INR 04-4091-b37 /2015 Family Practice 1-cs6687p70 & and 5a0 [facility] JEFFREY/ROXANNE-PT [id number] 07/07 07/07 [facility] /INR 6e-5k0i-161 /2015 Family Practice a-xkfo7731r & and ba9 [facility] JEFFREY/ROXANNE-PT [id number] 07/07 07/07 [facility] /INR 5d-4958-b52 /2015 Family Practice e-9d8j951qv & and 22c [facility] MURPHY/ROXANNE-PT [id number] 07/07 07/07 [facility] /INR c2-4217-a2b /2015 Family Practice d-9680om3ex & and 108 [facility] MURPHY/ROXANNE-PT [id number] 07/07 07/07 [facility] /INR cf-4291-862 /2015 Family Practice 5-42c5ko159 & and cf5 [facility] MURPHY/ROXANNE-PT [id number] 07/07 07/07 [facility] /INR 8a-8i72-800 /2015 Family Practice 1-53298h77o & and 3fe [facility] MURPHY/ROXANNE-PT [id number] 07/07 07/07 [facility] /INR 2e-21z2-y73 /2015 Family Practice 6-3l88470ut & and 48e [facility] NV/ROXANNE-PT [id number] 07/07 07/07 [facility] /INR 15-404a-acd /2015 Family Practice 9-95da57r81 & and 435 [facility] MURPHY/ROXANNE-PT [id number] 07/07 07/07 [facility] /INR da-4816-9c6 /2015 Family Practice 2-l4y5n6ft4 & and 277 [facility] MURPHY/ROXANNE-PT [id number] 07/07 07/07 [facility] /INR c8-4987-8ee /2015 Family Practice 5-27ssj2530 & and 3bb [facility] NV/ROXANNE-PT [id number] 07/07 07/07 [facility] /INR bc-4542-868 /2015 Family Practice 5-1y04o9k57 & and a68 [facility] NV/ROXANNE-PT [id number] 07/07 07/07 [facility] /INR 98-460c-94f /2015 Family Practice d-27z840661 & and 365 [facility] Cancel [id number] 07/13 07/13 [facility] 2d-46cb-849 /2015 Family Practice Request 8-l70gpgdv4 & and e33 [facility] Cancel [id number] 07/13 07/13 [facility] 29-5i02-n6i /2015 Family Practice Request e-10k8v2hh5 & and 983 [facility] Cancel [id number]-05 07/13 07/13 [facility] 65-45bc-a83 /2015 Family Practice Request 3-979uxyw6t & and 9ed [facility] Cancel 3esupq15-3g 07/13 07/13 [facility] 73-4ffd-b6b /2015 Family Practice Request 1-[id number] & and 42e [facility] Cancel [id number] 07/13 07/13 [facility] 2c-445f-b9b /2015 Family Practice Request 7-g761wr965 & and a51 [facility] Cancel szukse56-z7 07/13 07/13 [facility] c1-5x05-975 /2015 Family Practice Request b-qm634x7z4 & and 150 [facility] Cancel [id number] 07/13 07/13 [facility] f4-4017-8fe /2015 Family Practice Request a-9h0t7x708 & and 7de [facility] Cancel 5068m05d-9m 07/13 07/13 [facility] ca-62j6-1r4 /2015 Family Practice Request 2-9296jy262 & and 47b [facility] Cancel [id number] 07/13 07/13 [facility] 59-47ac-865 /2015 Family Practice Request a-54mr52s1w & and a4c [facility] Cancel [id number]-6w 07/13 07/13 [facility] fd-5ln4-2b4 /2015 Family Practice Request f-l75i77s76 & and 978 [facility] Cancel [id number] 07/13 07/13 [facility] 94-4ebf-b56 /2015 Family Practice Request d-248hw2369 & and c86 [facility] Cancel [id number]-y4 07/13 07/13 [facility] b2-9c5d-69r /2015 Family Practice Request 2-78n5p2238 & and c21 [facility] nv-pt/inr / [id number]-u5 07/21 07/21 [facility] a8-495a-96f /2015 Family Practice c-2t8tly23q & and 3bd [facility] nv-pt/inr / [id number] 07/21 07/21 [facility] 3a-4ead-875 /2015 Family Practice 8-98617f3e7 & and 777 [facility] nv-pt/inr / [id number] 07/21 07/21 [facility] a4-472d-a0b /2015 Family Practice 0-223b3216j & and 525 [facility] nv-pt/inr / [id number] 07/21 07/21 [facility] ff-14x9-8m9 /2015 Family Practice 5-7m721q52l & and e2c [facility] nv-pt/inr / [id number] 07/21 07/21 [facility] 69-445a-923 /2015 Family Practice 1-2qo71td49 & and 18b [facility] nv-pt/inr / [id number] 07/21 07/21 [facility] 60-4304-991 /2015 Family Practice d-m2fg01io6 & and d51 [facility] nv-pt/inr / [id number] 07/21 07/21 [facility] 26-72f0-tf4 /2015 Family Practice 2-76b967715 & and 5ce [facility] nv-pt/inr / [id number] 07/21 07/21 [facility] 3d-4bfd-9d4 /2015 Family Practice 9-q49b64l52 & and 2fd [facility] nv-pt/inr / [id number]-hj 07/21 07/21 [facility] a3-42ea-b51 /2015 Family Practice 9-9v9m8efu6 & and 3e6 [facility] nv-pt/inr / [id number] 07/21 07/21 [facility] e6-9di1-652 /2015 Family Practice 5-z17i1mr21 & and 6f2 [facility] nv-pt/inr / [id number] 07/21 07/21 [facility] 2e-4071-83e /2015 Family Practice 6-5jco6f2u0 & and a13 [facility] Unknown [id number] 07/30 07/30 [facility] 35-478e-a72 /2015 Family Practice 9-ei4651tlv & and 23d [facility] Unknown [id number] 07/30 07/30 [facility] 12-9p7s-y8o /2015 Family Practice d-5877x8371 & and 4e3 [facility] Unknown [id number] 07/30 07/30 [facility] 50-476d-8ab /2015 Family Practice c-16q3040x2 & and ab4 [facility] Unknown [id number] 07/30 07/30 [facility] 4a-8r53-w09 /2015 Family Practice 4-m7ss94m52 & and d4a [facility] Unknown [id number] 07/30 07/30 [facility] 01-4900-952 /2015 Family Practice 2-ybhp161n5 & and 7d3 [facility] Unknown [id number] 07/30 07/30 [facility] 9e-0en3-710 /2015 Family Practice e-68a9g7s3k & and a30 [facility] Unknown [id number]-17 07/30 07/30 [facility] 8f-01u2-xh9 /2015 Family Practice 8-dt76v7q8z & and 0ba [facility] Unknown [id number]-21 07/30 07/30 [facility] de-42fb-8c8 /2015 Family Practice 7-n6xn4f813 & and a8c [facility] Unknown [id number] 07/30 07/30 [facility] c3-4u75-8k4 /2015 Family Practice 6-524bvj344 & and e9f [facility] Unknown [id number] 07/30 07/30 [facility] df-488a-881 /2015 Family Practice 8-748d8nw95 & and 63c [facility] copy of [id number] 08/28 08/28 [facility] 68-4103-b10 /2015 Family Practice done in a-6ipvkl31t & and july 2016 8f4 [facility] copy of [id number]-9k 08/28 08/28 [facility] ed-49dd-81c /2015 Family Practice done in 6-la799r775 & and july 2016 3d8 [facility] copy of [id number] 08/28 08/28 [facility] 0d-1m14-gct /2015 Family Practice done in 7-te33052lu & and july 2016 653 [facility] copy of 21vg8j5u-05 08/28 08/28 [facility] 29-4fcf-923 /2015 Family Practice done in 8-1vm2a6040 & and july 2016 aa0 [facility] copy of 80h748u4-qu 08/28 08/28 [facility] fc-5cv9-777 /2015 Family Practice done in c-r021hdp5m & and july 2016 4b5 [facility] copy of 8a8q0300-91 08/28 08/28 [facility] ad-46o9-6z9 /2015 Family Practice done in 9-tnltw6488 & and july 2016 78d [facility] copy of 1bhh0hd8-83 08/28 08/28 [facility] f1-4939-a3a /2015 Family Practice done in b-80uw8y808 & and july 2016 77e [facility] copy of [id number] 08/28 08/28 [facility] 2b-04l9-zb2 /2015 Family Practice done in b-y48w9z641 & and july 2016 8fb [facility] copy of [id number] 08/28 08/28 [facility] 90-4812-be7 /2015 Family Practice done in 1-5z19086q1 & and july 2016 6a1 [facility] Re:RE:copy [id number] 08/28 08/28 [facility] blood d7-4598-b31 /2015 Family Practice work done in e-168f9z023 & and july 2016 183 [facility] Re:RE:copy uv9e8f3e-3i 08/28 08/28 [facility] 2b-1l32-912 /2015 Family Practice work done in 1-n0810ma59 & and july 2016 26d [facility] Re:RE:copy [id number]-tw 08/28 08/28 [facility] a5-498f-9f7 /2015 Family Practice work done in f-d75wnrb59 & and july 2016 a41 [facility] Re:RE:copy [id number] 08/28 08/28 [facility] 1a-474f-a58 /2015 Family Practice work done in 7-5lr3y9114 & and july 2016 552 [facility] Re:RE:copy 3s4705w7-d0 08/28 08/28 [facility] e9-94n9-52g /2015 Family Practice work done in 2-7r51x0163 & and july 2016 e58 [facility] Re:RE:copy [id number]-61 08/28 08/28 [facility] e2-0is3-307 /2015 Family Practice work done in 1-53pl0s262 & and july 2016 b69 [facility] Re:RE:copy owf582zs-0c 08/28 08/28 [facility] blood 3f-0s37-709 /2015 Family Practice work done in f-99pv012k8 & and july 2016 0bd [facility] Re:RE:copy [id number]-0n 08/28 08/28 [facility] blood 8f-51c3-9y1 /2015 Family Practice work done in 6-q77k2srf5 & and july 2016 452 [facility] Re:RE:copy 30yr7384-70 08/28 08/28 [facility] of blood c2-5x1m-jm8 /2015 Family Practice work done in c-46lkr3001 & and july 2016 7ba [facility] Re:RE:Re:RE: [id number] 09/09 09/09 [facility] and ea-435e-b89 /2015 Family Practice paper to get 5-c57z72u4u & and morris 0d8 [facility] Re:RE:Re:RE: [id number] 09/09 09/09 [facility] and 2c-4n2g-5w8 /2015 Family Practice paper to get 0-cec1ol234 & and morris 2b9 [facility] Re:RE:Re:RE: 16r9l1e3-[id number] 09/09 09/09 [facility] and [id number] /2015 Family Practice paper to get [id number] & and morris 5d0 [facility] Re:RE:Re:RE: [id number] 09/09 09/09 [facility] and [id number] /2015 Family Practice paper to get [id number] & and morris b76 [facility] Re:RE:Re:RE: [id number] 09/09 09/09 [facility] and [id number] /2015 Family Practice paper to get [id number] & and morris 2bc [facility] Re:RE:Re:RE: [id number] 09/09 09/09 [facility] and [id number] /2015 Family Practice paper to get [id number] & and morris 048 [facility] Re:RE:Re:RE: [id number] 09/09 09/09 [facility] and [id number] /2015 Family Practice paper to get [id number] & and morris 06d [facility] FOLLOW UP [id number] 09/18 09/18 [facility] AND [id number] /2015 Family Practice BLOODWORK/PT [id number] & and -INR c42 [facility] FOLLOW UP [id number] 09/18 09/18 [facility] AND [id number] /2015 Family Practice BLOODWORK/PT [id number] & and -INR 6b1 [facility] FOLLOW UP [id number] 09/18 09/18 [facility] AND [id number] /2015 Family Practice BLOODWORK/PT [id number] & and -INR aa3 [facility] FOLLOW UP [id number] 09/18 09/18 [facility] AND [id number] /2015 [facility] Practice BLOODWORK/PT [id number] & and -INR 775 [facility] FOLLOW UP [id number] 09/18 09/18 [facility] [place] AND [id number] /2015 [facility] Practice BLOODWORK/PT [id number] & and -INR 051 [facility] FOLLOW UP [id number] 09/18 09/18 Oniel Negron AND [id number] /2015 [facility] Practice BLOODWORK/PT [id number] & and -INR d7e [facility] Cancel [id number] 09/29 09/29 [facility] [id number] /2015 Family Practice Request [id number] & and 020 [facility] Reschedule [id number] 09/29 09/29 [facility] [id number] /2015 Family Practice Request [id number] & and a30 [facility] Cancel [id number] 09/29 09/29 [facility] [id number] /2015 Family Practice Request [id number] & and 4df [facility] Reschedule [id number] 09/29 09/29 [facility] [id number] /2015 Family Practice Request [id number] & and 409 [facility] Cancel [id number] 09/29 09/29 [facility] [id number] /2015 Family Practice Request [id number] & and 9b9 [facility] Reschedule [id number] 09/29 09/29 [facility] [id number] /2015 Family Practice Request [id number] & and 1a3 [facility] Cancel [id number] 09/29 09/29 [facility] [id number] /2015 Family Practice Request [id number] & and b71 [facility] Reschedule [id number] 09/29 09/29 [facility] [id number] /2015 Family Practice Request [id number] & and 5fb [facility] Cancel [id number] 09/29 09/29 [facility] [id number] /2015 Family Practice Request [id number] & and 378 [facility] Reschedule [id number] 09/29 09/29 [facility] [id number] /2015 Family Practice Request [id number] & and b53 [facility] 1 month [id number] 10/26 10/26 [facility] follow up [id number] /2016 [facility] Practice [id number] & and c74 [facility] 1 month [id number] 10/26 10/26 [facility] [id number] /2016 Family Practice [id number] & and e53 [facility] 1 month [id number] 10/26 10/26 [facility] [id number] /2016 Family Practice [id number] & and 803 [facility] pt-inr/brend [id number] 11/02 11/02 [facility] a [id number] /2016 Family Practice [id number] & and a9f [facility] pt-inr/brend [id number] 11/02 11/02 [facility] [place] a [id number] /2016 Family Practice [id number] & and 548 [facility] pt-inr/brend [id number] 12/07 12/07 [facility] [place] a [id number] /2016 Family Practice [id number] & and 426 [facility] Departed [id number] DEWAYNE 03/27 03/[address] [facility] [address] Emergency 3 ANA FRIEDMAN /2017 [facility] Registered [id number] CHRISTINA 05/05 [facility] Surgical Day 3 RATNA FRIEDMAN [facility] Departed [id number] AMBICA 07/14 07/14 [facility] Emergency 9 BERNADINE FRIEDMAN /2017 [facility] Registered [id number] LILA 09/27 [facility] Emergency 3 MANEEVES [facility] Procedures Procedure Code Date Perfomer Comments Source Computed [id number] 07/14/2018 BERNADINE [facility] tomography of - Patients abdomen and pelvis [facility] with [place] [address] 05/05/2018 RATNA [facility] BIOPSY [facility] smoking/tobacco 14 02/21/2015 yes Medical cessation, patient Group education and counseling Assessment and Plan No Data Provided for This Section Plan of Care Plan of Care Date Source Discharge Date 09/27/18 11:02pm 09/27/2018 [facility] Disposition HOME, SELF-CARE Condition at Discharge Stable Instructions/Education Provided Abdominal Pain - Adult Prescriptions See Medication Section Referrals DAVION GARCIA DO Address: [address] [place] [address] CHRISTINA SEGNUDO MD Address: [address] [place] [address] Additional Instructions/Education REST DRINK PLENTY OF WATER FOLLOW UP WITH YOUR GI DOCTOR Discharge Date 07/14/18 7:04pm 07/14/2018 [facility] Disposition HOME, SELF-CARE Condition at Discharge Stable Instructions/Education Provided Abdominal Pain - Adult Forms Provided Work/School Excuse Prescriptions See Medication Section Referrals MG CONTRERAS MD Address: [address] [place] [address] [id number] Additional Instructions/Education 1. Your Ct shows liver cirhosis and portal HTN, please see the grounds worker provided 2. Please return to the ED if you begin to develop vomiting or inability to have have a BM as this may be a sign of a SBO. Social History Social History Date Source Social History Problem Response Recorded Date/Time Onset Date Status 2017 [facility] Hx Psychiatric Problems [facility] Y - DEPRESSION 03/13/2012 7:00pm Not Applicable Not Applicable Hx Eating Disorder No 03/13/2012 7:00pm Not Applicable Not Applicable Hx Substance Use Disorder No 03/13/2012 7:00pm Not Applicable Not Applicable Hx Depression Yes 03/13/2012 7:00pm Not Applicable Not Applicable Hx Alcohol Use No 03/13/2012 7:00pm Not Applicable Not Applicable Hx Substance Use Treatment No 03/13/2012 7:00pm Not Applicable Not Applicable Hx Physical Abuse No 03/13/2012 7:00pm Not Applicable Not Applicable Smoking Status Start Date Stop Date Never Smoker Social History ElementQualifiersDate Reported 11/02/2016 [facility] . negative Nov 02, 2016 Flu Vaccine: . no Nov 02, 2016 Last Colonoscopy: . 2011Nov 02, 2016 children . 2 Nov 02, 2016 Tobacco Use: . Are you a: former smoker quit 21 days ago, smoked 20-30 years Nov 02, 2016 Use of recreational / street drugs? . Answer: No Nov 02, 2016 Marital Status: . Nov 02, 2016 Do you drink alcohol? . Status: Yes, How often? Socially Nov 02, 2016 Occupation: employed. [employer] Nov 02, 2016 Family History Value Date Source QualifierDescriptionCommentDate Reported 03/21/2014 [facility] alive thyroid disease (son - living), hypertension (son), substance abuse (daughter - living) March 08, 2014 Maternal Grandmother heart disease, stroke, pulmonary embolism March 08, 2014 Father alive prostate cancer, hypertension, diabetes March 08, 2014 Siblings alive hypertension (older sister), substance abuse (brother - ) March 08, 2014 Mother heart attack, heart disease, hypertension, hypothyroid March 08, 2014 Paternal Grandmother breast cancer, diabetes March 08, 2014 QualifierDescriptionCommentDate Reported 06/18/2013 [facility] alive thyroid disease (son - living), hypertension (son), substance abuse (daughter - living) Jun 13, 2013 Maternal Grandmother heart disease, stroke, pulmonary embolism Jun 13, 2013 Father alive prostate cancer, hypertension, diabetes Jun 13, 2013 Siblings alive hypertension (older sister), substance abuse (brother - ) Jun 13, 2013 Mother heart attack, heart disease, hypertension, hypothyroid Jun 13, 2013 Paternal Grandmother breast cancer, diabetes Jun 13, 2013 Advance Directives Order Name Results Value Date Source Advance Directives Advance Directives Directive Response Recorded Date/ Time 09/27/2018 CECY Schneider - Does the patient have an advance directive? Patients Medical [facility] 03/13/12 7:00pm If yes, is advance directive on file with [email or web address]? No 03/13/12 7:00pm If not on file with [facility] will patient provide a copy? No 09/27/18 7:37pm Do you have a Directive to Physician? No 09/27/18 7:37pm Do you have a Medical Power of Want Ad Supervisor? No 09/27/18 7:37pm Do you have an out of hospital Do Not Resuscitate Order? No 09/27/18 7:37pm Do you have any special needs we should be aware of? No 09/27/18 7:37pm Do you have a support person here with you today? No 09/27/18 7:37pm Did patient receive Notice of Privacy Practices? Yes 09/27/18 7:37pm Did patient receive patient rights and responsibilities? Yes 09/27/18 7:37pm Advance Directives Advance Directives Directive Response Recorded Date/ Time 07/14/2018 CECY Schneider - Does the patient have an advance directive? Patients Medical [facility] 03/13/12 7:00pm If yes, is advance directive on file with [email or web address]? No 03/13/12 7:00pm If not on file with [facility] will patient provide a copy? Yes 03/27/18 7:53pm Do you have a Directive to Physician? No 07/14/18 4:42pm Do you have a Medical Power of Want Ad Supervisor? No 07/14/18 4:42pm Do you have an out of hospital Do Not Resuscitate Order? No 07/14/18 4:42pm Do you have any special needs we should be aware of? No 07/14/18 4:42pm Do you have a support person here with you today? Yes 07/14/18 4:42pm Did patient receive Notice of Privacy Practices? Yes 07/14/18 4:42pm Did patient receive patient rights and responsibilities? Yes 07/14/18 4:42pm Functional Status No Data Provided for This Section
--- OUTSIDE RECORDS SUMMARY | 2019-05-25 23:13 | XMS REPORT | Continuity of Care Document ---
:1965 Author Organization [facility] Care Team Providers Name Role Phone MD Marie Hoang Unavailable Unavailable Insurance Providers Payer name Policy type / Policy ID Covered republican ID Policy Parks Coverage type [employer] (PPO) Encounters Encounter Performer Location Date Office Visit Lonnie Marie MD [facility] Feb 01, 2014 [facility] Allergies, Adverse Reactions, Alerts Type Substance Reaction Status Drug allergy KEFLEX Active Drug allergy DORX Active Problems Problem Effective Dates Problem Status INCI HERNIA WITHOUT MENTION OBSTRUCTION/GANGRENE Feb 01, 2014 Active OBESITY Feb 01, 2014 Active DEEP VENOUS THROMBOPHLEBITIS, HX OF Feb 01, 2014 Active Procedures Date Description Comments Feb 01, 2014 smoking status current every day smoker Feb 01, 2014 smoking/tobacco cessation, patient education yes and counseling Medications Medication Instructions Start Date Status BUSPIRONE HCL 10 MG TABS Feb 01, 2014 Active LISINOPRIL 5 MG TABS Feb 01, 2014 Active VENLAFAXINE HCL ER 75 MG [id number] Feb 01, 2014 Active ARMOUR THYROID 120 MG TABS Feb 01, 2014 Active GLIMEPIRIDE 4 MG TABS Feb 01, 2014 Active WARFARIN SODIUM 5 MG TABS Feb 01, 2014 Active VYTORIN 10-40 MG TABS Feb 01, 2014 Active Vital Signs Date Description Test Result Feb 01, 2014 height E&M - 8302-2 HEIGHT 67 in Feb 01, 2014 weight E&M - 3141-9 WEIGHT 243 lb Feb 01, 2014 temperature E&M TEMPERATURE 98.4 deg f Feb 01, 2014 pulse rate E&M - 8867-4 PULSE RATE 103 /min Feb 01, 2014 blood pressure, systolic - 8480-6 BP SYSTOLIC 127 mm Hg Feb 01, 2014 blood pressure, diastolic - 8462-4 BP DIASTOLIC 86 mm Hg
--- OUTSIDE RECORDS SUMMARY | 2019-05-25 23:13 | XMS REPORT | Continuity of Care Document ---
:1965 Author Organization [facility] Care Team Providers Name Role Phone MD Marie Hoang Unavailable Unavailable Insurance Providers Payer name Policy type / Policy ID Covered green party ID Policy Parks Coverage type [employer] (O) Encounters Encounter Performer Location Date Office Visit Lonnie Marie MD [facility] Apr 03, 2014 Surgery 350 Allergies, Adverse Reactions, Alerts [...] smoking/tobacco cessation, patient education yes and counseling Mar 20, 2014 smoking status Former smoker Mar 20, 2014 smoking/tobacco cessation, patient education yes and counseling Apr 03, 2014 smoking status Former smoker Apr 03, 2014 smoking/tobacco cessation, patient education yes and counseling Medications Medication Instructions Start Date Status BUSPIRONE HCL 10 MG TABS Feb 01, 2014 Active LISINOPRIL 5 MG TABS Feb 01, 2014 Active VENLAFAXINE HCL ER 75 MG [id number] Feb 01, 2014 Active ARMOUR THYROID 120 MG TABS Feb 01, 2014 Active GLIMEPIRIDE 4 MG TABS Feb 01, 2014 Active WARFARIN SODIUM 5 MG TABS Feb 01, 2014 Active VYTORIN 10-40 MG TABS Feb 01, 2014 Active CIPRO 500 MG TABS one tab PO BID for 10 days March 08, 2014 Active FLAGYL 500 MG TABS one tab PO TID for 10 days March 08, 2014 Active Vital Signs Date Description Test Result Feb 01, 2014 height E&M HEIGHT 67 in Feb 01, 2014 weight E&M WEIGHT 243 lb Feb 01, 2014 temperature E&M TEMPERATURE 98.4 deg f Feb 01, 2014 pulse rate E&M PULSE RATE 103 /min Feb 01, 2014 blood pressure, systolic BP SYSTOLIC 127 mm Hg Feb 01, 2014 blood pressure, diastolic BP DIASTOLIC 86 mm Hg February 20, 2014 weight E&M WEIGHT 250 lb February 20, 2014 temperature E&M TEMPERATURE 98.3 deg f February 20, 2014 pulse rate E&M PULSE RATE 92 /min February 20, 2014 blood pressure, systolic BP SYSTOLIC 112 mm Hg February 20, 2014 blood pressure, diastolic BP DIASTOLIC 71 mm Hg March 08, 2014 weight E&M WEIGHT 255 lb March 08, 2014 temperature E&M TEMPERATURE 97.9 deg f March 08, 2014 pulse rate E&M PULSE RATE 116 /min March 08, 2014 blood pressure, systolic BP SYSTOLIC 129 mm Hg March 08, 2014 blood pressure, diastolic BP DIASTOLIC 83 mm Hg Mar 20, 2014 weight E&M WEIGHT 258 lb Mar 20, 2014 temperature E&M TEMPERATURE 98.3 deg f Mar 20, 2014 pulse rate E&M PULSE RATE 103 /min Mar 20, 2014 blood pressure, systolic BP SYSTOLIC 134 mm Hg Mar 20, 2014 blood pressure, diastolic BP DIASTOLIC 83 mm Hg Apr 03, 2014 weight E&M WEIGHT 260 lb Apr 03, 2014 temperature E&M TEMPERATURE 98.3 deg f Apr 03, 2014 pulse rate E&M PULSE RATE 105 /min Apr 03, 2014 blood pressure, systolic BP SYSTOLIC 142 mm Hg Apr 03, 2014 blood pressure, diastolic BP DIASTOLIC 87 mm Hg
--- OUTSIDE RECORDS SUMMARY | 2019-05-25 23:13 | XMS REPORT | Continuity of Care Document ---
:1965 Author Organization [facility] Care Team Providers Name Role Phone MD Marie Hoang Unavailable Unavailable Insurance Providers Payer name Policy type / Policy ID Covered libertarian ID Policy Parks Coverage type [employer] (PPO) Encounters Encounter Performer Location Date Office Visit Lonnie Marie MD [facility] February 20, 2014 Surgery 350 Allergies, Adverse Reactions, Alerts [...] 2014 Active VENLAFAXINE HCL ER 75 MG [id number] Feb 01, 2014 Active ARMOUR THYROID 120 [...] - 8462-4 BP DIASTOLIC 86 mm Hg February 20, 2014 weight E&M - 3141-9 WEIGHT 250 lb February 20, 2014 temperature E&M TEMPERATURE 98.3 deg f February 20, 2014 pulse rate E&M - 8867-4 PULSE RATE 92 /min February 20, 2014 blood pressure, systolic - 8480-6 BP SYSTOLIC 112 mm Hg February 20, 2014 blood pressure, diastolic - 8462-4 BP DIASTOLIC 71 mm Hg
--- OUTSIDE RECORDS SUMMARY | 2019-05-25 23:13 | XMS REPORT | Continuity of Care Document ---
:[address] [facility] Care Team Providers Name Role Phone MD Marie Hoang Unavailable Unavailable Insurance Providers Payer name Policy type / Policy ID Covered republican ID Policy Parks Coverage type [employer] (O) Encounters Encounter Performer Location Date Lab Report Lonnie Marie MD [facility] [place] Apr 20, 2014 Allergies, Adverse Reactions, Alerts Type Substance Reaction [...] 2014 Active VENLAFAXINE HCL ER 75 MG [id number] Feb 01, 2014 Active ARMOUR THYROID 120 [...] pressure, diastolic BP DIASTOLIC 87 mm Hg Apr 19, 2014 weight E&M WEIGHT 263 lb Apr 19, 2014 temperature E&M TEMPERATURE 97.6 deg f Apr 19, 2014 pulse rate E&M PULSE RATE 93 /min Apr 19, 2014 blood pressure, systolic BP SYSTOLIC 123 mm Hg Apr 19, 2014 blood pressure, diastolic BP DIASTOLIC 79 mm Hg
--- OUTSIDE RECORDS SUMMARY | 2019-05-25 23:13 | XMS REPORT | Continuity of Care Document ---
:1965 Author Organization [facility] Care Team Providers Name Role Phone MD Marie Hoang Unavailable Unavailable Insurance Providers Payer name Policy type / Policy ID Covered republican ID Policy Parks Coverage type [employer] (PPO) Encounters Encounter Performer Location Date Office Visit Lonnie Marie MD [facility] March 08, 2014 Surgery 350 Allergies, Adverse Reactions, Alerts [...] 2014 Active VENLAFAXINE HCL ER 75 MG [id number] Feb 01, 2014 Active ARMOUR THYROID 120 [...] - 8462-4 BP DIASTOLIC 71 mm Hg March 08, 2014 weight E&M - 3141-9 WEIGHT 255 lb March 08, 2014 temperature E&M TEMPERATURE 97.9 deg f March 08, 2014 pulse rate E&M - 8867-4 PULSE RATE 116 /min March 08, 2014 blood pressure, systolic - 8480-6 BP SYSTOLIC 129 mm Hg March 08, 2014 blood pressure, diastolic - 8462-4 BP DIASTOLIC 83 mm Hg
--- OUTSIDE RECORDS SUMMARY | 2019-05-25 23:13 | XMS REPORT | Continuity of Care Document ---
:[address] [facility] Care Team Providers Name Role Phone MD Marie Hoang Unavailable Unavailable Insurance Providers Payer name Policy type / Policy ID Covered alliance party ID Policy Parks Coverage type [employer] (O) Encounters Encounter Performer Location Date Office Visit Lonnie Marie MD [facility] Apr 19, 2014 Surgery 350 Allergies, Adverse Reactions, Alerts [...] cessation, patient education yes and counseling Apr 19, 2014 smoking status Former smoker Apr 19, 2014 smoking/tobacco cessation, patient education yes and counseling Medications Medication Instructions Start Date Status BUSPIRONE HCL 10 MG TABS Feb 01, 2014 Active LISINOPRIL 5 MG TABS Feb 01, 2014 Active VENLAFAXINE HCL ER 75 MG [id number] Feb 01, 2014 Active ARMOUR THYROID 120 [...]
--- OUTSIDE RECORDS SUMMARY | 2019-05-25 23:13 | XMS REPORT | Continuity of Care Document ---
:1965 Author Organization [facility] Care Team Providers Name Role Phone MD Marie Hoang Unavailable Unavailable Insurance Providers Payer name Policy type / Policy ID Covered constitution party ID Policy Parks Coverage type [employer] (O) Encounters Encounter Performer Location Date Office Visit Lonnie Marie MD [facility] Mar 20, 2014 Surgery 350 Allergies, Adverse Reactions, [...] 2014 Active VENLAFAXINE HCL ER 75 MG [id number] Feb 01, 2014 Active ARMOUR THYROID 120 [...]
--- OUTSIDE RECORDS SUMMARY | 2019-05-25 23:14 | XMS REPORT | Continuity of Care Document ---
:1965 Author Organization [facility] Care Team Providers Name Role Phone MD Kathy, Solomon Unavailable Unavailable Insurance Providers Payer name Policy type / Policy ID Covered democrat ID Policy Parks Coverage type [employer] HEALTH [employer] (PPO) [employer] HEALTH [employer] (PPO) [employer] (PPO) [employer] HEALTH [employer] (PPO) [employer] (PPO) [employer] (PPO) [employer] HEALTH [employer] (PPO) [employer] HEALTH [employer] (PPO) [employer] HEALTH [employer] (PPO) [employer] HEALTH [employer] (PPO) [employer] (PPO) Encounters Encounter Performer Location Date Office Visit Solomon Chavez MD [facility] February Colorectal Surgery Allergies, Adverse Reactions, Alerts Type Substance Reaction Status Drug allergy KEFLEX Active Drug allergy DORX Active Problems Problem Effective Dates Problem Status INCI HERNIA WITHOUT MENTION OBSTRUCTION/GANGRENE Feb 01, 2014 Active OBESITY Feb 01, 2014 Active DEEP VENOUS THROMBOPHLEBITIS, HX OF Feb 01, 2014 Active DIVERTICULITIS Feb 06, 2015 Active PERFORATION OF INTESTINE Feb 05, 2015 Active NON-HEALING WOUND Feb 06, 2015 Active Procedures Date Description Comments Feb 01, [...] smoking/tobacco cessation, patient education yes and counseling May 31, 2014 smoking status Former smoker May 31, 2014 smoking/tobacco cessation, patient education yes and counseling Feb 05, 2015 smoking status Former smoker Feb 05, 2015 smoking/tobacco cessation, patient education yes and counseling February 21, 2015 smoking status Former smoker February 21, 2015 smoking/tobacco cessation, patient education yes and counseling Medications Medication Instructions Start Date Status BUSPIRONE HCL 10 MG TABS Feb 01, 2014 Active LISINOPRIL 5 MG TABS Feb 01, 2014 Active VENLAFAXINE HCL ER 75 MG [id number] Feb 01, 2014 Active ARMOUR THYROID 120 [...] - 8462-4 BP DIASTOLIC 83 mm Hg Mar 20, 2014 weight E&M - 3141-9 WEIGHT 258 lb Mar 20, 2014 temperature E&M TEMPERATURE 98.3 deg f Mar 20, 2014 pulse rate E&M - 8867-4 PULSE RATE 103 /min Mar 20, 2014 blood pressure, systolic - 8480-6 BP SYSTOLIC 134 mm Hg Mar 20, 2014 blood pressure, diastolic - 8462-4 BP DIASTOLIC 83 mm Hg Apr 03, 2014 weight E&M - 3141-9 WEIGHT 260 lb Apr 03, 2014 temperature E&M TEMPERATURE 98.3 deg f Apr 03, 2014 pulse rate E&M - 8867-4 PULSE RATE 105 /min Apr 03, 2014 blood pressure, systolic - 8480-6 BP SYSTOLIC 142 mm Hg Apr 03, 2014 blood pressure, diastolic - 8462-4 BP DIASTOLIC 87 mm Hg Apr 19, 2014 weight E&M - 3141-9 WEIGHT 263 lb Apr 19, 2014 temperature E&M TEMPERATURE 97.6 deg f Apr 19, 2014 pulse rate E&M - 8867-4 PULSE RATE 93 /min Apr 19, 2014 blood pressure, systolic - 8480-6 BP SYSTOLIC 123 mm Hg Apr 19, 2014 blood pressure, diastolic - 8462-4 BP DIASTOLIC 79 mm Hg May 31, 2014 height E&M - 8302-2 HEIGHT 67 in May 31, 2014 weight E&M - 3141-9 WEIGHT 264 lb May 31, 2014 temperature E&M TEMPERATURE 97.9 deg f May 31, 2014 pulse rate E&M - 8867-4 PULSE RATE 112 /min May 31, 2014 blood pressure, systolic - 8480-6 BP SYSTOLIC 123 mm Hg May 31, 2014 blood pressure, diastolic - 8462-4 BP DIASTOLIC 82 mm Hg Feb 05, 2015 height E&M - 8302-2 HEIGHT 67 in Feb 05, 2015 temperature E&M TEMPERATURE 97.5 deg f Feb 05, 2015 pulse rate E&M - 8867-4 PULSE RATE 125 /min Feb 05, 2015 blood pressure, systolic - 8480-6 BP SYSTOLIC 124 mm Hg Feb 05, 2015 blood pressure, diastolic - 8462-4 BP DIASTOLIC 85 mm Hg February 21, 2015 height E&M - 8302-2 HEIGHT 67 in February 21, 2015 weight E&M - 3141-9 WEIGHT 240 lb February 21, 2015 temperature E&M TEMPERATURE 98.2 deg f February 21, 2015 pulse rate E&M - 8867-4 PULSE RATE 97 /min February 21, 2015 blood pressure, systolic - 8480-6 BP SYSTOLIC 126 mm Hg February 21, 2015 blood pressure, diastolic - 8462-4 BP DIASTOLIC 82 mm Hg
--- OUTSIDE RECORDS SUMMARY | 2019-05-25 23:14 | XMS REPORT ---
:1965 Author Organization eClinicalWorks Care Team Providers Name Role Phone Madelaine Garcia Provider Role Unavailable Allergies No Known Allergies Problems Problem Type Condition Code Onset Dates Condition Status Problem Primary insomnia F51.01 Active Problem Benign essential hypertension I10 Active Problem Chronic anticoagulation Z79.01 Active Problem PE (pulmonary embolism) I26.99 Active Problem DVT (deep venous thrombosis) I82.409 Active Problem Anemia, unspecified type D64.9 Active Problem Cirrhosis of liver without ascites, K74.60 Active unspecified hepatic cirrhosis type Problem Vitamin D deficiency E55.9 Active Problem Hepatic steatosis K76.0 Active Problem Abnormal mammogram R92.8 Active Problem Memory loss R41.3 Active Problem Autoimmune hepatitis K75.4 Active Problem Celiac disease K90.0 Active Problem Depression, unspecified depression F32.9 Active type Problem Other and unspecified E78.5 Active hyperlipidemia Problem Kidney stone N20.0 Active Problem Vertigo R42 Active Problem TANIA (obstructive sleep apnea) G47.33 Active Problem 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 Active Problem Irritable bowel syndrome with both K58.2 Active constipation and diarrhea Problem Gastroparesis K31.84 Active Problem Gastroesophageal reflux disease, K21.9 Active esophagitis presence not specified Problem Other chronic pain G89.29 Active Problem Diverticulosis of large intestine K57.30 Active without hemorrhage Problem Acquired hypothyroidism E03.9 Active Problem BMI 40.0-44.9, adult Z68.41 Active Problem Osteopenia of multiple sites M85.89 Active Problem Type 2 diabetes mellitus with E11.65 Active hyperglycemia, without long-term current use of insulin Problem Low back pain M54.5 Active Medications No Known Medications Results No Known Results Summary Purpose [employer]ClinicalAdelaVoice Submission
--- OUTSIDE RECORDS SUMMARY | 2019-05-25 23:14 | XMS REPORT ---
:1965 Author Organization eClinicalWorks Care Team Providers Name Role Phone Madelaine Garcia Provider Role Unavailable Allergies No Known Allergies Problems Problem Type Condition Code Onset Dates Condition Status Problem PE (pulmonary embolism) I26.99 Active Problem Vitamin D deficiency E55.9 Active Problem BMI 40.0-44.9, adult Z68.41 Active Problem DVT (deep venous thrombosis) I82.409 Active Problem Osteopenia of multiple sites M85.89 Active Problem Vertigo R42 Active Problem Anemia, unspecified type D64.9 Active Problem Memory loss R41.3 Active Problem Cirrhosis of liver without ascites, K74.60 Active unspecified hepatic cirrhosis type Problem Irritable bowel syndrome with both K58.2 Active constipation and diarrhea Problem Gastroparesis K31.84 Active Problem Chronic anticoagulation Z79.01 Active Problem Benign essential hypertension I10 Active Problem Celiac disease K90.0 Active Problem Primary insomnia F51.01 Active Problem Abnormal mammogram R92.8 Active Problem Hepatic steatosis K76.0 Active Problem TANIA (obstructive sleep apnea) G47.33 Active Problem 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 Active Problem Gastroesophageal reflux disease, K21.9 Active esophagitis presence not specified Problem Other and unspecified E78.5 Active hyperlipidemia Problem Diverticulosis of large intestine K57.30 Active without hemorrhage Problem Acquired hypothyroidism E03.9 Active Problem Other chronic pain G89.29 Active Problem Low back pain M54.5 Active Problem Depression, unspecified depression F32.9 Active type Problem Type 2 diabetes mellitus with E11.65 Active hyperglycemia, without long-term current use of insulin Medications No Known Medications Results No Known Results Summary Purpose [employer] Submission
--- OUTSIDE RECORDS SUMMARY | 2019-05-25 23:14 | XMS REPORT | Continuity of Care Document ---
:1965 Author Organization [facility] Care Team Providers Name Role Phone MD Kathy, Solomon Unavailable Unavailable Insurance Providers Payer name Policy type / Policy ID Covered alliance party ID Policy Parks Coverage type [employer]IONS (PPO) [employer] (PPO) [employer] - [facility] SOLUTIONS (PPO) [employer] HE[employer] SOLUTIONS (PPO) [employer] HE[employer] SOLUTIONS (PPO) [employer] (PPO) [employer] (PPO) [employer] (PPO) [employer] HE[employer] SOLUTIONS (PPO) [employer] SOLUTIONS (PPO) [employer] (PPO) [employer] (PPO) [employer] (PPO) [employer] (PPO) [employer]UTIONS (PPO) [employer]UTIONS (PPO) [employer] HEALTH SOLUTIONS (PPO) [employer] HEALTH SOLUTIONS (PPO) [employer] HEALTH SOLUTIONS (PPO) [employer] HEALTH SOLUTIONS (PPO) [employer] HE[employer] SOLUTIONS (PPO) [employer] HE[employer] SOLUTIONS (PPO) [employer] HE[employer] SOLUTIONS (PPO) [employer] HE[employer] SOLUTIONS (PPO) [employer] (PPO) [employer]UT[employer] (PPO) [employer]UT[employer] (PPO) [employer] (PPO) [employer] (PPO) [employer] (PPO) [employer] (PPO) Encounters Encounter Performer Location Date Lab Report Solomon Chavez MD [facility] May 09, 2015 Allergies, Adverse Reactions, Alerts Type Substance Reaction Status Drug allergy KEFLEX Active Drug allergy DORX Active Problems Problem Effective Dates Problem Status INCI HERNIA WITHOUT MENTION OBSTRUCTION/GANGRENE Feb 01, 2014 Active OBESITY Feb 01, 2014 Active DEEP VENOUS THROMBOPHLEBITIS, HX OF Feb 01, 2014 Active DIVERTICULITIS Feb 06, 2015 Active PERFORATION OF INTESTINE Feb 05, 2015 Active NON-HEALING WOUND Feb 06, 2015 Active SMALL BOWEL OBSTRUCTION Mar 22, 2015 Active Procedures Date Description Comments Feb [...] 2014 Active VENLAFAXINE HCL ER 75 MG Feb 01, 2014 Active [id number] ARMOUR THYROID 120 MG TABS Feb 01, [...] for 10 days March 08, 2014 Active PHENERGAN 12.5MG TABS take 1-2 tablets every 6 hours May 01, 2015 Active (PROMETHAZINE HCL) for nausea ZOFRAN 4 MG TABS take 1 tablet every 6 hours as May 01, 2015 Active needed for nausea TRAMADOL HCL 50 MG TABS 1-2 tablet twice daily May 01, 2015 Active Vital Signs Date Description Test Result [...] - 8462-4 BP DIASTOLIC 82 mm Hg Mar 21, 2015 height E&M - 8302-2 HEIGHT 67 in Mar 21, 2015 weight E&M - 3141-9 WEIGHT 233 lb Mar 21, 2015 temperature E&M TEMPERATURE 97.7 deg f Mar 21, 2015 pulse rate E&M - 8867-4 PULSE RATE 91 /min Mar 21, 2015 blood pressure, systolic - 8480-6 BP SYSTOLIC 143 mm Hg Mar 21, 2015 blood pressure, diastolic - 8462-4 BP DIASTOLIC 85 mm Hg
--- OUTSIDE RECORDS SUMMARY | 2019-05-25 23:14 | XMS REPORT | Continuity of Care Document ---
:1965 Author Organization [facility] Care Team Providers Name Role Phone MD Marie Hoang Unavailable Unavailable Insurance Providers Payer name Policy type / Policy ID Covered democrat ID Policy Parks Coverage [facility] [employer] (O) Encounters Encounter Performer Location Date Office Visit Lonnie Marie MD [facility] [place] [facility] May 31, 2014 Surgery 350 Allergies, Adverse Reactions, Alerts [...] 2014 Active VENLAFAXINE HCL ER 75 MG [id number] Feb 01, 2014 Active ARMOUR THYROID 120 [...] pressure, diastolic BP DIASTOLIC 79 mm Hg May 31, 2014 height E&M HEIGHT 67 in May 31, 2014 weight E&M WEIGHT 264 lb May 31, 2014 temperature E&M TEMPERATURE 97.9 deg f May 31, 2014 pulse rate E&M PULSE RATE 112 /min May 31, 2014 blood pressure, systolic BP SYSTOLIC 123 mm Hg May 31, 2014 blood pressure, diastolic BP DIASTOLIC 82 mm Hg
--- OUTSIDE RECORDS SUMMARY | 2019-05-25 23:14 | XMS REPORT ---
[...] Medications Results No Known Results Summary Purpose [employer] Submission
--- OUTSIDE RECORDS SUMMARY | 2019-05-25 23:14 | XMS REPORT | Continuity of Care Document ---
:1965 Author Organization [facility] Care Team Providers Name Role Phone MD Kathy, Solomon Unavailable Unavailable Insurance Providers Payer name Policy type / Policy ID Covered democrat ID Policy Parks Coverage type [employer] (PPO) [employer] (PPO) [employer] [facility] [employer] Guide (PPO) Last Guide (PPO) [employer] Guide (PPO) Last Guide (PPO) Last Guide (PPO) Last Guide (PPO) Encounters Encounter Performer Location Date Office Visit Solomon Chavez MD [facility] Jan Colorectal Surgery Allergies, Adverse Reactions, Alerts Type [...] 2014 Active VENLAFAXINE HCL ER 75 MG [id number] Feb 01, 2014 Active ARMOUR THYROID 120 [...] 86 mm Hg February 20, 2014 weight E&Marya - 3141-9 WEIGHT 250 lb February 20, [...]
--- OUTSIDE RECORDS SUMMARY | 2019-05-25 23:14 | XMS REPORT ---
:1965 Author Organization eClinicalWorks Care Team Providers Name Role Phone Roxanne Pantoja Provider Role Unavailable Allergies No Known Allergies [...] Medications Results No Known Results Summary Purpose [employer] Submission
--- OUTSIDE RECORDS SUMMARY | 2019-05-25 23:14 | XMS REPORT | Continuity of Care Document ---
:1965 Author Organization [facility] Care Team Providers Name Role Phone MD Kathy, Solomon Unavailable Unavailable Insurance Providers Payer name Policy type / Policy ID Covered republican ID Policy Parks Coverage type [place] [employer] (PPO) [employer] (PPO) [place] [employer] - [facility] [employer] (PPO) [employer]IONS (PPO) [employer] (PPO) [employer] (PPO) [employer] (PPO) [employer]IONS (PPO) [employer] HE[employer] SOLUTIONS (PPO) [employer] HE[employer] SOLUTIONS (PPO) [employer] HE[employer] SOLUTIONS (PPO) [employer] HE[employer] SOLUTIONS (PPO) [employer] HE[employer] SOLUTIONS (PPO) [employer]IONS (PPO) [employer]IONS (PPO) [employer]IONS (PPO) [employer] (PPO) [employer] (PPO) [place] [employer] (PPO) Encounters Encounter Performer Location Date Office Visit Solomon Chavez MD [facility] [place] Colorectal Surgery Allergies, Adverse Reactions, Alerts Type [...] 2014 Active VENLAFAXINE HCL ER 75 MG [id number] Feb 01, 2014 Active ARMOUR THYROID 120 [...]
--- OUTSIDE RECORDS SUMMARY | 2019-05-25 23:15 | XMS REPORT ---
:1965 Author Organization eClinicalWorks Care Team Providers Name Role Phone Roxanne Pantoja Provider Role Unavailable Allergies No Known Allergies Problems Problem Type Condition Code Onset Dates Condition Status Problem PE (pulmonary embolism) I26.99 Active Problem Vitamin D deficiency E55.9 Active Problem DVT (deep venous thrombosis) I82.409 Active Problem BMI 40.0-44.9, adult Z68.41 Active [...] Medications Results No Known Results Summary Purpose [employer] Submission
--- OUTSIDE RECORDS SUMMARY | 2019-05-25 23:15 | XMS REPORT ---
:1965 Author Organization eClinicalWorks Care Team Providers Name Role Phone Roxanne Pantoja Provider Role Unavailable Allergies, Adverse Reactions, Alerts Substance Reaction Event Type Adhesive Bandages Info Not Available Drug Allergy Keflex abdomen pain Drug Allergy Doxycycline Hyclate abdomen pain Drug Allergy Dilaudid hallucinations Drug Allergy Problems Problem Type Condition Code Onset Dates Condition Status Problem Vertigo R42 Active Assessment BMI 40.0-44.9, adult Z68.41 Active Problem Depression, unspecified depression F32.9 Active type Assessment Fatty liver K76.0 Active Problem Other and unspecified E78.5 Active hyperlipidemia Problem Acquired hypothyroidism E03.9 Active Problem Diverticulosis of large intestine K57.30 Active without hemorrhage Problem Fatty liver K76.0 Active Problem Low back pain M54.5 Active Assessment Acquired hypothyroidism E03.9 Active Assessment Chronic anticoagulation Z79.01 Active Problem BMI 40.0-44.9, adult Z68.41 Active Assessment Elevated ALT measurement R74.0 Active Problem Vitamin D deficiency E55.9 Active Problem Gastroesophageal reflux disease, K21.9 Active esophagitis presence not specified Problem Other chronic pain G89.29 Active Problem Type 2 diabetes mellitus with E11.65 Active hyperglycemia, without long-term current use of insulin Problem Primary insomnia F51.01 Active Problem Benign essential hypertension I10 Active Assessment Type 2 diabetes mellitus with E11.65 Active hyperglycemia, without long-term current use of insulin Assessment Benign essential hypertension I10 Active Problem DVT (deep venous thrombosis) I82.409 Active Problem Barretts esophagus K22.70 Active Problem Chronic anticoagulation Z79.01 Active Problem PE (pulmonary embolism) I26.99 Active Medications Medication Code Code Instructions Start End Status Dosage System Date Date Lisinopril [facility] 96474582213 5 MG Active TAKE 1 TABLET BY MOUTH EVERY DAY Warfarin Sodium ND 69490216093 5 MG PO 3 time Active 1 tablet a week Victoza [facility] 99496339975 18 MG/3ML Jul 16, Aug 15, Active as directed Subcutaneous .2016 2017 mg SC daily x 2 weks, increase to 1.2mg SC once daily x 2 weeks Sertraline HCl [facility] 07084702155 100 MG Orally Active 1 tablet Once a day Flexeril [facility] 73796694028 10 MG Active TAKE 1/2 TO 1 TABLET BY MOUTH EVERY 8 HOURS NEEDED Rosuvastatin [facility] 22630907202 20 MG Orally Active 1 tablet Calcium Once a day Pantoprazole [facility] 58086136111 40 MG Orally March Active 1 tablet Sodium Once a day 2016 E55-Qgfjtg [facility] 15154797934 1 MG Orally Active not defined Carvedilol [facility] 17450913550 6.25 MG Active Take 1 tablet by mouth twice a day with food Warfarin Sodium [facility] 58470099078 4 MG Orally 4 Active 1 tablet time a week Novofine 31 [facility] 0 31G X 6 MM as Jul 16, Active as directed directed daily 2016 with use of Victoza Metformin HCl [facility] 91225208028 500 MG Active take 2 tablets by mouth twice a day with meals Levothyroxine [facility] 49672140583 125 MCG Active Take 1 Sodium tablet by mouth daily on an empty stomach 1/2 hour before 1st meal of the day Vital Signs Date/Time: Jul 16, 2017 BMI 40.85 Index Weight 257 lbs Height 66.5 in Cardiac Monitoring Heart Rate 88 /min Blood Pressure Diastolic 70 mm Hg Blood Pressure Systolic 118 mm Hg Results No Known Results Summary Purpose eClinicalWorks Submission
--- OUTSIDE RECORDS SUMMARY | 2019-05-25 23:15 | XMS REPORT ---
[...] without long-term current use of insulin Medications Medication Code Code Instructions Start End Date Status Dosage System Date Lovenox [facility] 32757791500 80 MG/0.8ML Sep 12, Active as directed Subcutaneous 2018 BID, begin 5 days before procedure, stop 24 hours before procedure, restart day after procedure Results No Known Results Summary Purpose eClinicalWorks Submission
--- OUTSIDE RECORDS SUMMARY | 2019-05-25 23:15 | XMS REPORT ---
[...] Medications Results No Known Results Summary Purpose [employer]Kitchon Submission
--- OUTSIDE RECORDS SUMMARY | 2019-05-25 23:15 | XMS REPORT ---
[...] Medications Results No Known Results Summary Purpose eClinicalDympol Submission
--- OUTSIDE RECORDS SUMMARY | 2019-05-25 23:15 | XMS REPORT ---
:1965 Author Organization eClinicalWorks Care Team Providers Name Role Phone Madelaine Garcia Provider Role Unavailable Allergies No Known Allergies Problems Problem Type Condition Code Onset Dates Condition Status Problem PE (pulmonary embolism) I26.99 Active Problem Vitamin D deficiency E55.9 Active Problem DVT (deep venous thrombosis) I82.409 Active Problem Vertigo R42 Active Problem Osteopenia of multiple sites M85.89 Active Problem Anemia, unspecified type D64.9 Active Problem Primary insomnia F51.01 Active Problem Cirrhosis of liver without ascites, K74.60 Active unspecified hepatic cirrhosis type Problem Memory loss R41.3 Active Problem Hepatic steatosis K76.0 Active Problem Celiac disease K90.0 Active Problem Irritable bowel syndrome with both K58.2 Active constipation and diarrhea Problem Diverticulosis of large intestine K57.30 Active without hemorrhage Problem Chronic anticoagulation Z79.01 Active Problem Autoimmune hepatitis K75.4 Active Problem Benign essential hypertension I10 Active Problem 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 Active Problem Abnormal mammogram R92.8 Active Problem Gastroparesis K31.84 Active Problem TANIA (obstructive sleep apnea) G47.33 Active Problem Other and unspecified E78.5 Active hyperlipidemia Problem Depression, unspecified depression F32.9 Active type Problem Acquired hypothyroidism E03.9 Active Problem Gastroesophageal reflux disease, K21.9 Active esophagitis presence not specified Problem Low back pain M54.5 Active Problem BMI 40.0-44.9, adult Z68.41 Active Problem Type 2 diabetes mellitus with E11.65 Active hyperglycemia, without long-term current use of insulin Problem Other chronic pain G89.29 Active Medications No Known Medications Results No Known Results Summary Purpose eClinicalWorks Submission
--- OUTSIDE RECORDS SUMMARY | 2019-05-25 23:15 | XMS REPORT ---
[...] Problem Other chronic pain G89.29 Active Medications Medication Code Code Instructions Start End Date Status Dosage System Date Lovenox [facility] 2001 99422150310 80 MG/0.8ML March 08, Active as directed Subcutaneous 2019 twice daily (begin 8 days prior to procedure, discontinue 24 hours before, then restart day after) Results No Known Results Summary Purpose [employer] Submission
--- OUTSIDE RECORDS SUMMARY | 2019-05-25 23:15 | XMS REPORT ---
[...] Medications Results No Known Results Summary Purpose AppBrickinicalColoWrap Submission
--- OUTSIDE RECORDS SUMMARY | 2019-05-25 23:15 | XMS REPORT ---
[...] Medications Results No Known Results Summary Purpose [employer]Newslines Submission
--- OUTSIDE RECORDS SUMMARY | 2019-05-25 23:16 | XMS REPORT ---
:1965 Author Organization eClinicalWorks Care Team Providers Name Role Phone Roxanne Pantoja Provider Role Unavailable Allergies No Known Allergies Problems Problem Type Condition Code Onset Dates Condition Status Problem Other and unspecified E78.5 Active hyperlipidemia Problem Acquired hypothyroidism E03.9 Active Problem Diverticulosis of large intestine K57.30 Active without hemorrhage Problem Fatty liver K76.0 Active Problem Low back pain M54.5 Active Problem BMI 40.0-44.9, adult Z68.41 Active Problem Vitamin D deficiency E55.9 Active Problem Gastroesophageal reflux disease, K21.9 Active esophagitis presence not specified Problem Other chronic pain G89.29 Active Problem Type 2 diabetes mellitus with E11.65 Active hyperglycemia, without long-term current use of insulin Problem Primary insomnia F51.01 Active Problem Benign essential hypertension I10 Active Assessment Other and unspecified E78.5 Active hyperlipidemia Problem DVT (deep venous thrombosis) I82.409 Active Problem Barretts esophagus K22.70 Active Problem Chronic anticoagulation Z79.01 Active Problem Vertigo R42 Active Problem PE (pulmonary embolism) I26.99 Active Problem Depression, unspecified depression F32.9 Active type Medications Medication Code Code Instructions Start End Status Dosage System Date Date Rosuvastatin ND 57377325747 20 MG Orally Active 1 tablet Calcium Once a day Results No Known Results Summary Purpose eClinicalWorks Submission
--- OUTSIDE RECORDS SUMMARY | 2019-05-25 23:16 | XMS REPORT ---
[...] Medications Results No Known Results Summary Purpose [employer] Submission
--- OUTSIDE RECORDS SUMMARY | 2019-05-25 23:16 | XMS REPORT ---
[...] Medications Results No Known Results Summary Purpose [employer]Vidtel Submission
--- OUTSIDE RECORDS SUMMARY | 2019-05-25 23:16 | XMS REPORT ---
:1965 Author Organization eClinicalWorks Care Team Providers Name Role Phone Roxanne Pantoja Provider Role Unavailable Allergies No Known Allergies Problems Problem Type Condition Code Onset Dates Condition Status Problem Vertigo R42 Active Problem Other and unspecified E78.5 Active hyperlipidemia Problem Depression, unspecified depression F32.9 Active type Problem Other chronic pain G89.29 Active Problem Type 2 diabetes mellitus with E11.65 Active hyperglycemia, without long-term current use of insulin Problem Low back pain M54.5 Active Problem Acquired hypothyroidism E03.9 Active Problem Diverticulosis of large intestine K57.30 Active without hemorrhage Problem Vitamin D deficiency E55.9 Active Problem Gastroesophageal reflux disease, K21.9 Active esophagitis presence not specified Assessment DVT (deep venous thrombosis) I82.409 Active Problem Chronic anticoagulation Z79.01 Active Problem PE (pulmonary embolism) I26.99 Active Problem Primary insomnia F51.01 Active Problem DVT (deep venous thrombosis) I82.409 Active Problem Benign essential hypertension I10 Active Problem Barretts esophagus K22.70 Active Medications Medication Code Code Instructions Start End Status Dosage System Date Date Carvedilol [facility] 94527008617 6.25 MG Active Take 1 tablet by mouth twice a day with food Levothyroxine [facility] 18469608733 125 MCG Active Take 1 Sodium tablet by mouth daily on an empty stomach 1/2 hour before 1st meal of the day Pantoprazole [facility] 19418389529 40 MG Orally March Active 1 tablet Sodium Once a day 2016 Sertraline HCl [facility] 19338221858 100 MG Orally Active 1 tablet Once a day Lisinopril ND 08654655578 5 MG Active TAKE 1 TABLET BY MOUTH EVERY DAY Warfarin Sodium [facility] 92469292892 4 MG Orally 4 Active 1 tablet time a week Warfarin Sodium [facility] 05231505436 5 MG PO 3 time Active 1 tablet a week Rosuvastatin [facility] 18599308291 20 MG Orally Active 1 tablet Calcium Once a day Metformin HCl [facility] 01566789893 500 MG Active take 2 tablets by mouth twice a day with meals Flexeril NDC 46973675607 10 MG Active TAKE 1/2 TO 1 TABLET BY MOUTH EVERY 8 HOURS NEEDED L71-Maxflr [facility] 21516841421 1 MG Orally Active not defined Vital Signs Date/Time: Jul 07, 2017 Blood Pressure Diastolic 74 mm Hg Blood Pressure Systolic 115 mm Hg Height 66.5 in Cardiac Monitoring Heart Rate 93 /min Results Name Result Date Reference Range Unit Abnormality Flag PROTHROMBIN TIME-INR ----PT 48.4 [id number] ----INR 3.9 [id number] Summary Purpose eClinicalWorks Submission
--- OUTSIDE RECORDS SUMMARY | 2019-05-25 23:16 | XMS REPORT ---
:1965 Author Organization eClinicalWorks Care Team Providers Name Role Phone Adelina Pantojanda Provider Role Unavailable Allergies No Known Allergies [...] Problem Benign essential hypertension I10 Active Problem DVT (deep venous thrombosis) I82.409 Active Problem Barretts esophagus K22.70 Active Problem Chronic anticoagulation Z79.01 Active Problem Vertigo R42 Active Problem PE (pulmonary embolism) I26.99 Active Problem Depression, unspecified depression F32.9 Active type Medications No Known Medications Results No Known Results Summary Purpose eClinicalWorks Submission
--- OUTSIDE RECORDS SUMMARY | 2019-05-25 23:16 | XMS REPORT ---
:1965 Author Organization eClinicalWorks Care Team Providers Name Role Phone Roxanne Pantoja Provider Role Unavailable Allergies, Adverse Reactions, Alerts Substance Reaction Event Type Adhesive Bandages Info Not Available Drug Allergy Keflex abdomen pain Drug Allergy Doxycycline Hyclate abdomen pain Drug Allergy Dilaudid hallucinations Drug Allergy Problems Problem Type Condition Code Onset Dates Condition Status Assessment Screening for osteoporosis Z13.820 Active Assessment Breast cancer screening Z12.31 Active Assessment Low back pain M54.5 Active Problem Diverticulosis of large intestine K57.30 Active without hemorrhage Assessment Barretts esophagus K22.70 Active Problem Vitamin D deficiency E55.9 Active Assessment Depression, unspecified depression F32.9 Active type Problem Benign essential hypertension I10 Active Problem Gastroesophageal reflux disease, K21.9 Active esophagitis presence not specified Problem Other and unspecified E78.5 Active hyperlipidemia Problem Low back pain M54.5 Active Problem Other chronic pain G89.29 Active Assessment Other and unspecified E78.5 Active hyperlipidemia Assessment Vitamin D deficiency E55.9 Active Problem Type 2 diabetes mellitus with E11.65 Active hyperglycemia, without long-term current use of insulin Assessment Gastroesophageal reflux disease, K21.9 Active esophagitis presence not specified Problem Depression, unspecified depression F32.9 Active type Problem PE (pulmonary embolism) I26.99 Active Problem Barretts esophagus K22.70 Active Problem Acquired hypothyroidism E03.9 Active Assessment Chronic anticoagulation Z79.01 Active Assessment Benign essential hypertension I10 Active Assessment Acquired hypothyroidism E03.9 Active Assessment Type 2 diabetes mellitus with E11.65 Active hyperglycemia, without long-term current use of insulin Problem Chronic anticoagulation Z79.01 Active Problem Vertigo R42 Active Problem Primary insomnia F51.01 Active Problem DVT (deep venous thrombosis) I82.409 Active Medications Medication Code Code Instructions Start End Status Dosage System Date Date Pantoprazole [facility] [address]-77 40 MG Active Take 1 Sodium tablet by mouth once a day Sertraline HCl [facility] [address]-48 100 MG Orally Active 1 tablet Once a day Rosuvastatin [facility] 91784098848 20 MG Orally Active 1 tablet Calcium Once a day Protonix [facility] 84185135739 40 MG Active TAKE 1 TABLET BY MOUTH EVERY DAY Levothyroxine [facility] 21998389238 125 MCG Active Take 1 Sodium tablet by mouth daily on an empty stomach 1/2 hour before 1st meal of the day Carvedilol [facility] 89857384030 6.25 MG Active Take 1 tablet by mouth twice a day with food Warfarin Sodium [facility] [address]-86 4 MG Orally 4 Active 1 tablet time a week t XR [facility] [address]-86 50-1000 MG Oct 26, Active 2 tablet Orally Once a 2016 with a day meal Lisinopril [facility] 67505056517 5 MG Active TAKE 1 TABLET BY MOUTH EVERY DAY [id number]-Kshjvi [facility] [address] 1 MG Orally Active not defined Flexeril [facility] 77152966065 10 MG Active TAKE 1/2 TO 1 TABLET BY MOUTH EVERY 8 HOURS NEEDED Pantoprazole [facility] [address]-70 40 MG Orally December Active 1 tablet Sodium Once a day [address] [facility] 59730348366 100 MG Active Take 1 tablet by mouth twice a day Metformin HCl [facility] 64819058680 500 MG Active take 2 tablets by mouth twice a day with meals Warfarin Sodium [facility] [address]-39 5 MG PO 3 time Active 1 tablet a week Vital Signs Date/Time: Jun 29, 2017 BMI 41.33 Index Weight 260 lbs Height 66.5 in Cardiac Monitoring Heart Rate 94 /min Blood Pressure Diastolic 70 mm Hg Blood Pressure Systolic 108 mm Hg Results Name Result Date Reference Range Unit Abnormality Flag PROTHROMBIN TIME-INR ----PT 10.3 [id number] ----INR 0.9 [id number] Summary Purpose eClinicalWorks Submission
--- OUTSIDE RECORDS SUMMARY | 2019-05-25 23:16 | XMS REPORT ---
:1965 Author Organization eClinicalWorks Care Team Providers Name Role Phone Roxanne Pantoja Provider Role Unavailable Allergies No Known Allergies Problems Problem Type Condition Code Onset Dates Condition Status Assessment Cough R05 Active Assessment Chronic anticoagulation Z79.01 Active Problem PE (pulmonary [...] Start End Status Dosage System Date Date Polyethylene [facility] 03217115079 - Oral Active EVERY DAY Glycol 3350 DIRECTED Lovenox ND 39507309912 80 MG/0.8ML Sep 12, Active as directed Subcutaneous 2018 bid Sucralfate ND 06567306559 1 GM Orally Active 1 tablet at Twice a day bedtime on an empty stomach before meals Pantoprazole ND 60014800249 40 mg Orally Active 1 tablet Sodium twice a day (bid) Lyrica [facility] 95327043349 75 mg Orally Nov 21, Active 1 capsule twice a day 2018 (bid) Atorvastatin [facility] 00523489323 40 MG Orally Active 1 tablet Calcium Once a day Byetta 10 MCG [facility] 37536725920 10 MCG/0.04ML March Active as directed Pen Subcutaneous 28, twice a day 2017 (bid) Nystatin [facility] 24889321446 378414 UNIT/GM Active 1 application Externally to affected Twice a day, area may discontinue 48 hours after rash has resolved ProAir HFA [facility] 29017590087 108 (90 Base) Active 2 puffs as MCG/ACT needed Inhalation every 6 hrs Hyoscyamine [facility] [address]-77 0.375 MG Active 2 tablet as Sulfate Orally every needed 12 hrs Tramadol HCl [facility] [address]-14 50 mg Q8 PRN Active as directed Gabapentin [facility] [address]-07 300 MG Orally Active 1 capsule TID Carvedilol [facility] 88206118469 6.25 MG Active take 1 tablet by mouth twice daily with food Pioglitazone HCl [facility] 18296724058 30 mg Orally Active 1 tablet Once a day Promethazine HCl [facility] 68612095648 12.5 MG Orally Active 1 tablet every 6 hrs Warfarin Sodium [facility] 59957445001 3 MG Orally Active 1 tablet Once a day as directed Benzonatate [facility] 45476337382 200 MG Orally Active 1 capsule Three times a day Levothyroxine [facility] 45604004850 125 MCG Active TAKE 1 TABLET Sodium BY MOUTH ONCE A DAY ON AN EMPTY STOMACH 30 MINUTES BEFORE FIRST MEAL Ferrous Sulfate [facility] 12701156214 325 (65 Fe) MG Active 1 tablet Orally twice a day (bid) Ondansetron [facility] 97644876549 4 MG Orally Active 1 tablet on every 8 hrs the tongue and allow to dissolve Vitamin C [facility] 86100002692 500 MG Orally Active as directed Warfarin Sodium [facility] 51036699121 4 mg Orally Nov 21, Active 1 tablet Once a day as 2018 directed Albuterol [facility] 99178731928 108 (90 Base) Active 2 puffs as Sulfate HFA MCG/ACT needed Inhalation every 6 hrs PRN Vitamin D [facility] 56280808688 87964 UNIT Nov 01, Active 1 capsule (Ergocalciferol) Orally once a 2019 week Michael Miramontes [facility] 55601913078 300 UNIT/ML Active as directed Subcutaneous 50 units once nightly Duloxetine HCl ND 11371858807 30 mg Orally 1 Nov 21, Active 1 capsule tablet PO QD x 2018 2 2 tablet PO QD x 2 weeks Triamcinolone ND 70008524673 0.1 % Nov 01, Active 1 application Acetonide Externally 2019 to affected Twice a day area PRN Benzonatate [facility] 57573770880 200 MG Orally Dec 05December Active 1 capsule Three times a 2019 , day PRN 2019 Results Name Result Date Reference Range Unit Abnormality Flag PROTHROMBIN TIME-INR ----PT 25.1 [id number] ----INR 2.0 20181205 Summary Purpose eClinicalWorks Submission
--- OUTSIDE RECORDS SUMMARY | 2019-05-25 23:16 | XMS REPORT ---
[...] Start End Status Dosage System Date Date Jagdishurichard [facility] 63239119251 300 UNIT/ML March 17, Active as directed SoloStar Subcutaneous 60 2019 units at night NovoLog [facility] 66431836766 100 UNIT/ML March 17, Active as directed Flexpen Subcutaneous 20 2019 units at mealtimes Results No Known Results Summary Purpose eClinicalWorks Submission
--- OUTSIDE RECORDS SUMMARY | 2019-05-25 23:17 | XMS REPORT ---
[...] Start End Date Status Dosage System Date Warfarin [facility] 32406982458 4 mg Orally qd 4 Active 1 tablet Sodium time a week Results No Known Results Summary Purpose eClinicalWorks Submission
--- OUTSIDE RECORDS SUMMARY | 2019-05-25 23:17 | XMS REPORT ---
:1965 Author Organization eClinicalWorks Care Team Providers Name Role Phone Roxanne Pantoja Provider Role Unavailable Allergies No Known Allergies Problems Problem Type Condition Code Onset Dates Condition Status Problem Diverticulosis of large intestine K57.30 Active without hemorrhage Problem Gastroesophageal reflux disease, K21.9 Active esophagitis presence not specified Problem Acquired hypothyroidism E03.9 Active Problem Osteopenia of multiple sites M85.89 Active Problem BMI 40.0-44.9, adult Z68.41 Active Problem Anemia, unspecified type D64.9 Active Problem Type 2 diabetes mellitus with E11.65 Active hyperglycemia, without long-term current use of insulin Problem Other chronic pain G89.29 Active Problem Fatty liver K76.0 Active Problem Low back pain M54.5 Active Problem Chronic anticoagulation Z79.01 Active Problem PE (pulmonary embolism) I26.99 Active Problem Primary insomnia F51.01 Active Problem Benign essential hypertension I10 Active Problem Vertigo R42 Active Problem Depression, unspecified depression F32.9 Active type Problem DVT (deep venous thrombosis) I82.409 Active Problem Vitamin D deficiency E55.9 Active Problem Barretts esophagus K22.70 Active Problem Other and unspecified E78.5 Active hyperlipidemia Medications Medication Code System Code Instructions Start End Date Status Dosage Date Zofran [facility] 89802368275 4 mg Orally Q8 January 28, Active 1-2 tablets PRN 2018 Results No Known Results Summary Purpose eClinicalWorks Submission
--- OUTSIDE RECORDS SUMMARY | 2019-05-25 23:17 | XMS REPORT ---
[...] without hemorrhage Problem Fatty liver K76.0 Active Assessment Chronic anticoagulation Z79.01 Active Problem Low back pain M54.5 Active Assessment Benign essential hypertension I10 Active Assessment Depression, unspecified depression F32.9 Active type Problem BMI 40.0-44.9, adult Z68.41 Active Problem Vitamin D deficiency E55.9 Active Problem Gastroesophageal reflux disease, K21.9 Active esophagitis presence not specified Problem Other chronic pain G89.29 Active Problem Type 2 diabetes mellitus with E11.65 Active hyperglycemia, without long-term current use of insulin Problem Primary insomnia F51.01 Active Problem Benign essential hypertension I10 Active Assessment DVT (deep venous thrombosis) I82.409 Active Assessment Type 2 diabetes mellitus with E11.65 Active hyperglycemia, without long-term current use of insulin Problem DVT (deep venous thrombosis) I82.409 Active Problem Barretts esophagus K22.70 Active Problem Chronic anticoagulation Z79.01 Active Problem Vertigo R42 Active Assessment Finger pain, left M79.645 Active Problem PE (pulmonary embolism) I26.99 Active Problem Depression, unspecified depression F32.9 Active type Medications Medication Code Code Instructions Start End Status Dosage System Date Flexeril [facility] 19513388372 10 MG Active TAKE 1/2 TO 1 TABLET BY MOUTH EVERY 8 HOURS NEEDED Carvedilol [facility] 39647538396 6.25 MG Active TAKE 1 TABLET BY MOUTH TWICE DAILY WITH FOOD Pantoprazole ND 95670425876 40 MG Orally December Active 1 tablet Sodium Once a day 2016 Rosuvastatin [facility] 15659021255 20 MG Orally Active 1 tablet Calcium Once a day Q54-Ojvxrm [facility] 21282732826 1 MG Orally Active not defined Sertraline HCl [facility] 78988509792 100 MG Orally Active 1 tablet Once a day Novofine 31 ND 0 31G X 6 MM as Jul 16, Active as directed daily 2016 directed with use of Victoza Victoza [facility] 11241813192 18 MG/3ML January Active as Subcutaneous directed 1.2 mg SC daily 2017 Metformin HCl [facility] 58807922607 500 MG Active take 2 tablets by mouth twice a day with meals Warfarin Sodium [facility] 44929940669 5 MG PO 3 time Active 1 tablet a week Levothyroxine [facility] 38634201962 125 MCG Active take 1 Sodium tablet by mouth daily on an empty stomach 1/2 hour before 1st meal of the day Lisinopril [facility] 06533673523 5 MG Active TAKE 1 TABLET BY MOUTH EVERY DAY Tramadol HCl [facility] [address]-32 50 mg Orally Nov 09, Nov 24, Active as Q prn 2017 2017 directed Warfarin Sodium [facility] 35715899382 4 MG Orally 4 Active 1 tablet time a week Vital Signs Date/Time: Nov 09, 2017 BMI 39.27 Index Weight 247 lbs Height 66.5 in Cardiac Monitoring Heart Rate 90 /min Blood Pressure Diastolic 70 mm Hg Blood Pressure Systolic 110 mm Hg Results No Known Results Summary Purpose eClinicalWorks Submission
--- OUTSIDE RECORDS SUMMARY | 2019-05-25 23:17 | XMS REPORT ---
:1965 Author Organization eClinicalWorks Care Team Providers Name Role Phone Roxanne Pantoja Provider Role Unavailable Allergies No Known Allergies Problems Problem Type Condition Code Onset Dates Condition Status Problem Type 2 diabetes mellitus with E11.65 Active hyperglycemia, without long-term current use of insulin Problem Low back pain M54.5 Active Problem Other chronic pain G89.29 Active Problem Cirrhosis of liver without ascites, K74.60 Active unspecified hepatic cirrhosis type Problem Benign essential hypertension I10 Active Problem Memory loss R41.3 Active Problem Primary insomnia F51.01 Active Problem Abnormal mammogram R92.8 Active Problem Osteopenia of multiple sites M85.89 Active Problem BMI 40.0-44.9, adult Z68.41 Active Problem Hepatic steatosis K76.0 Active Problem Anemia, unspecified type D64.9 Active Problem Vertigo R42 Active Problem PE (pulmonary embolism) I26.99 Active Problem Chronic anticoagulation Z79.01 Active Problem DVT (deep venous thrombosis) I82.409 Active Problem Acquired hypothyroidism E03.9 Active Problem Gastroesophageal reflux disease, K21.9 Active esophagitis presence not specified Problem Other and unspecified E78.5 Active hyperlipidemia Problem Depression, unspecified depression F32.9 Active type Problem Diverticulosis of large intestine K57.30 Active without hemorrhage Problem Vitamin D deficiency E55.9 Active Medications No Known Medications Results No Known Results Summary Purpose eClinicalWorks Submission
--- OUTSIDE RECORDS SUMMARY | 2019-05-25 23:17 | XMS REPORT ---
[...] Problem Benign essential hypertension I10 Active Assessment Finger pain, left M79.645 Active Problem DVT (deep venous thrombosis) I82.409 Active Problem Barretts esophagus K22.70 Active Problem Chronic anticoagulation Z79.01 Active Problem Vertigo R42 Active Problem PE (pulmonary embolism) I26.99 Active Problem Depression, unspecified depression F32.9 Active type Medications Medication Code Code Instructions Start End Status Dosage System Date Date Tylenol/Codei [facility] 25669783333 300-30 MG Nov 09, Nov 24, Active 1 tablet ne #3 Orally Qhs PRN 2017 2017 as needed Tramadol HCl [facility] [address]-07 50 mg Orally Nov 09, Nov 09, Inactive as Qhs prn 2017 2017 directed Results No Known Results Summary Purpose eClinicalWorks Submission
--- OUTSIDE RECORDS SUMMARY | 2019-05-25 23:17 | XMS REPORT ---
[...] End Date Status Dosage System Date Warfarin [facility] 96249138630 4 mg Orally QD Active 1 tablet Sodium as directed Results No Known Results Summary Purpose eClinicalWorks Submission
--- OUTSIDE RECORDS SUMMARY | 2019-05-25 23:17 | XMS REPORT ---
[...] Problem Benign essential hypertension I10 Active Assessment Chronic anticoagulation Z79.01 Active Assessment DVT (deep venous thrombosis) I82.409 Active Problem DVT (deep venous thrombosis) I82.409 Active Problem Barretts esophagus K22.70 Active Problem Chronic anticoagulation Z79.01 Active Problem Vertigo R42 Active Problem PE (pulmonary embolism) I26.99 Active Problem Depression, unspecified depression F32.9 Active type Medications Medication Code Code Instructions Start End Date Status Dosage System Date Victoza [facility] 04905944153 18 MG/3ML January Active as Subcutaneous 2017 directed 1.2 mg SC daily Sertraline HCl [facility] 22408038301 100 MG Orally Active 1 tablet Once a day Levothyroxine ND 20421255322 125 MCG Active take 1 Sodium tablet by mouth daily on an empty stomach 1/2 hour before 1st meal of the day Pantoprazole [facility] 66938412527 40 MG Orally December Active 1 tablet Sodium Once a day 2016 Carvedilol [facility] 14180740318 6.25 MG Active TAKE 1 TABLET BY MOUTH TWICE DAILY WITH FOOD Warfarin Sodium ND 79872392706 5 MG PO 3 time Active 1 tablet a week Novofine 31 ND 0 31G X 6 MM as Jul 16, Active as directed daily 2016 directed with use of Victoza Lisinopril [facility] 10646897358 5 MG Active TAKE 1 TABLET BY MOUTH EVERY DAY Flexeril [facility] 63024183735 10 MG Active TAKE 1/2 TO 1 TABLET BY MOUTH EVERY 8 HOURS NEEDED Tylenol/Codeine [facility] 07640670470 300-30 MG Nov 09, Nov 24, Active 1 tablet #3 Orally Qhs PRN 2017 2017 as needed Warfarin Sodium [facility] 37432704041 4 MG Orally 4 Active 1 tablet time a week Rosuvastatin [facility] 83567377442 20 MG Orally Active 1 tablet Calcium Once a day Metformin HCl [facility] 40898761531 500 MG Active take 2 tablets by mouth twice a day with meals [id number] [facility] 88532101870 1 MG Orally Active not defined Results Name Result Date Reference Range Unit Abnormality Flag PROTHROMBIN TIME-INR ----PT 46.1 [id number] ----INR 4.6 [id number] Summary Purpose eClinicalWorks Submission
--- OUTSIDE RECORDS SUMMARY | 2019-05-25 23:17 | XMS REPORT ---
[...] Medications Results No Known Results Summary Purpose [employer] Submission
--- OUTSIDE RECORDS SUMMARY | 2019-05-25 23:18 | XMS REPORT ---
:1965 Author Organization eClinicalWorks Care Team Providers Name Role Phone Roxanne Pantoja Provider Role Unavailable Allergies No Known Allergies Problems Problem Type Condition Code Onset Dates Condition Status Problem Acquired hypothyroidism E03.9 Active Problem Other chronic pain G89.29 Active Problem Gastroesophageal reflux disease, K21.9 Active esophagitis presence not specified Problem Anemia, unspecified type D64.9 Active Problem Osteopenia of multiple sites M85.89 Active Problem HIV antibody positive Z21 Active Problem Low back pain M54.5 Active Problem Type 2 diabetes mellitus with E11.65 Active hyperglycemia, without long-term current use of insulin Problem BMI 40.0-44.9, adult Z68.41 Active Problem Fatty liver K76.0 Active Problem Chronic anticoagulation Z79.01 Active Problem PE (pulmonary embolism) I26.99 Active Problem Primary insomnia F51.01 Active Problem Benign essential hypertension I10 Active Problem Depression, unspecified depression F32.9 Active type Problem Vitamin D deficiency E55.9 Active Problem DVT (deep venous thrombosis) I82.409 Active Problem Other and unspecified E78.5 Active hyperlipidemia Problem Vertigo R42 Active Problem Diverticulosis of large intestine K57.30 Active without hemorrhage Medications No Known Medications Results No Known Results Summary Purpose [employer] Submission
--- OUTSIDE RECORDS SUMMARY | 2019-05-25 23:18 | XMS REPORT ---
:1965 Author Organization [employer] Care Team Providers Name Role Phone Roxanne Pantoja Provider Role Unavailable Allergies, Adverse Reactions, Alerts Substance Reaction Event Type Adhesive Bandages Info Not Available Drug Allergy Keflex abdomen pain Drug Allergy Doxycycline Hyclate abdomen pain Drug Allergy Dilaudid hallucinations Drug Allergy Problems Problem Type Condition Code Onset Dates Condition Status Assessment DVT (deep venous thrombosis) I82.409 Active Assessment Chronic anticoagulation Z79.01 Active Assessment Diverticulosis of large intestine K57.30 Active without hemorrhage Assessment Vertigo R42 Active Assessment Vitamin D deficiency E55.9 Active Assessment Benign essential hypertension I10 Active Assessment Other and unspecified E78.5 Active hyperlipidemia Assessment Gastroesophageal reflux disease, K21.9 Active esophagitis presence not specified Assessment PE (pulmonary embolism) I26.99 Active Problem Vitamin D deficiency E55.9 Active Assessment Depression, unspecified depression F32.9 Active type Problem Depression, unspecified depression F32.9 Active type Assessment Acquired hypothyroidism E03.9 Active Problem Other and unspecified E78.5 Active hyperlipidemia Problem Acquired hypothyroidism E03.9 Active Problem Diverticulosis of large intestine K57.30 Active without hemorrhage Problem BMI 40.0-44.9, adult Z68.41 Active Problem Fatty liver K76.0 Active Assessment Screening for osteoporosis Z13.820 Active Assessment Screening for colon cancer Z12.11 Active Problem Osteopenia of multiple sites M85.89 Active Assessment Barretts esophagus K22.70 Active Problem Other chronic pain G89.29 Active Problem Gastroesophageal reflux disease, K21.9 Active esophagitis presence not specified Problem Low back pain M54.5 Active Problem Type 2 diabetes mellitus with E11.65 Active hyperglycemia, without long-term current use of insulin Assessment Type 2 diabetes mellitus with E11.65 Active hyperglycemia, without long-term current use of insulin Problem Benign essential hypertension I10 Active Assessment Primary insomnia F51.01 Active Problem Chronic anticoagulation Z79.01 Active Assessment Fatty liver K76.0 Active Assessment Encntr for general adult medical Z00.00 Active exam w/o abnormal findings Assessment Low back pain M54.5 Active Problem Primary insomnia F51.01 Active Assessment Osteopenia of multiple sites M85.89 Active Problem Barretts esophagus K22.70 Active Assessment Finger pain, left M79.645 Active Problem Vertigo R42 Active Problem PE (pulmonary embolism) I26.99 Active Problem DVT (deep venous thrombosis) I82.409 Active Medications Medication Code Code Instructions Start End Status Dosage System Date Date L87-Nosicc [facility] 58656857354 1 MG Orally Active not defined Warfarin Sodium [facility] 03955766002 4 mg Orally QD Active 1 tablet as directed Novofine 31 ND 0 31G X 6 MM as Jul 16, Active as directed daily 2016 directed with use of Victoza Warfarin Sodium [facility] 56593497271 5 MG PO 3 time Inactive 1 tablet a week Lisinopril [facility] 96178914153 5 MG Active TAKE 1 TABLET BY MOUTH EVERY DAY Victoza [facility] 81255177975 18 MG/3ML January Active as Subcutaneous directed 1.2 mg SC daily 2017 Levothyroxine [facility] 25455119854 125 MCG Active take 1 Sodium tablet by mouth daily on an empty stomach 1/2 hour before 1st meal of the day Pantoprazole [facility] 22445323386 40 MG Orally December Active 1 tablet Sodium Once a day 2016 Rosuvastatin [facility] 06536781349 20 MG Orally Active 1 tablet Calcium Once a day Sertraline HCl [facility] 45205293989 100 MG Orally Active 1 tablet Once a day Metformin HCl [facility] 91208885305 500 MG Active TAKE 2 TABLETS BY MOUTH TWICE A DAY WITH MEALS Warfarin Sodium [facility] 45053622252 3 MG Orally January Active 1 tablet Once a day as 2017 Flexeril [facility] 14118000345 10 MG Active TAKE 1/2 TO 1 TABLET BY MOUTH EVERY 8 HOURS NEEDED Carvedilol [facility] 79592397129 6.25 MG Active TAKE 1 TABLET BY MOUTH TWICE DAILY WITH FOOD Vital Signs Date/Time: January 11, 2018 BMI 39.90 Index Weight 251 lbs Height 66.5 in Cardiac Monitoring Heart Rate 93 /min Blood Pressure Diastolic 60 mm Hg Blood Pressure Systolic 120 mm Hg Results No Known Results Summary Purpose [employer]Works Submission
--- OUTSIDE RECORDS SUMMARY | 2019-05-25 23:18 | XMS REPORT ---
:1965 Author Organization [employer] Care Team Providers Name Role Phone Roxanne Pantoja Provider Role Unavailable Allergies, Adverse Reactions, Alerts Substance Reaction Event Type Adhesive Bandages Info Not Available Drug Allergy Keflex abdomen pain Drug Allergy Doxycycline Hyclate abdomen pain Drug Allergy Dilaudid hallucinations Drug Allergy Problems Problem Type Condition Code Onset Dates Condition Status Assessment Pain of left hand M79.642 Active Assessment Pain in right hand M79.641 Active Assessment Pain in left knee M25.562 Active Assessment Pain in right knee M25.561 Active Assessment Other chronic pain G89.29 Active Assessment Acute bronchitis, unspecified J20.9 Active organism Assessment Chronic anticoagulation Z79.01 Active Assessment Type 2 diabetes mellitus with E11.65 Active hyperglycemia, without long-term current use of insulin Problem Other chronic pain G89.29 Active Problem PE (pulmonary embolism) I26.99 Active Problem Low back pain M54.5 Active Problem Vitamin D deficiency E55.9 Active Problem BMI 40.0-44.9, adult Z68.41 Active Problem Anemia, unspecified type D64.9 Active Problem Osteopenia of multiple sites M85.89 Active Problem TANIA (obstructive sleep apnea) G47.33 Active Problem 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 Active Problem Primary insomnia F51.01 Active Problem Vertigo R42 Active Problem Gastroparesis K31.84 Active Problem DVT (deep venous thrombosis) I82.409 Active Problem Memory loss R41.3 Active Problem Cirrhosis of liver without ascites, K74.60 Active unspecified hepatic cirrhosis type Problem Abnormal mammogram R92.8 Active Problem Hepatic steatosis K76.0 Active Problem Diverticulosis of large intestine K57.30 Active without hemorrhage Problem Acquired hypothyroidism E03.9 Active Problem Benign essential hypertension I10 Active Problem Chronic anticoagulation Z79.01 Active Problem Depression, unspecified depression F32.9 Active type Problem Type 2 diabetes mellitus with E11.65 Active hyperglycemia, without long-term current use of insulin Problem Gastroesophageal reflux disease, K21.9 Active esophagitis presence not specified Problem Other and unspecified E78.5 Active hyperlipidemia Medications Medication Code Code Instructions Start End Status Dosage System Date Date Benzonatate [facility] 31307791857 200 MG Orally Oct 21Oct Active 1 capsule Q8 PRN 2018 Byanish 10 MCG Pen [facility] 76207904176 10 MCG/0.04ML March Active as directed Subcutaneous , twice a day 2017 (bid) Sucralfate ND 82351309189 1 GM Orally Active 1 tablet at Twice a day bedtime on an empty stomach before meals Promethazine HCl [facility] 95599859590 12.5 MG Orally Active 1 tablet every 6 hrs Carvedilol [facility] 98595197622 6.25 MG Active take 1 tablet by mouth twice daily with food Sertraline HCl [facility] 93339026424 100 MG Active TAKE 1 TABLET BY MOUTH EVERY DAY Rosuvastatin ND 78724725311 20 MG Orally Active 1 tablet Calcium Once a day Tolove SoloStar [facility] 83751166712 300 UNIT/ML Active as directed Subcutaneous 50 units once nightly Hyoscyamine [facility] [address]-97 0.375 MG Active 1 tablet as Sulfate Orally every 4 needed hrs before meals Warfarin Sodium ND 25890714798 4 mg Orally qd May 18, Active 1 tablet as directed 2017 Ondansetron ND 95861910323 4 MG Orally Active 1 tablet on every 8 hrs the tongue and allow to dissolve Lidocaine ND 0 3 % Externally Sep 07, Active 1 application Twice a day 2018 to affected PRN area as needed Lovenox ND 86553740362 80 MG/0.8ML Sep 12, Active as directed Subcutaneous 2018 bid Pioglitazone HCl [facility] 96632752036 30 mg Orally Active 1 tablet Once a day Polyethylene ND 09695119031 - Oral Active EVERY DAY Glycol 3350 DIRECTED Levothyroxine [facility] 66812975987 125 MCG Active TAKE 1 TABLET Sodium BY MOUTH ONCE A DAY ON AN EMPTY STOMACH 30 MINUTES BEFORE FIRST MEAL Pantoprazole ND 12205247992 40 mg Orally Active 1 tablet Sodium twice a day (bid) Atorvastatin [facility] 93920442585 40 mg Orally Active 1 tablet Calcium Once a day Nystatin [facility] 33744462464 171868 UNIT/GM Active 1 application Externally to affected Twice a day, area may discontinue 48 hours after rash has resolved Ferrous Sulfate [facility] 89613542445 325 (65 Fe) MG Active 1 tablet Orally twice a day (bid) Albuterol Sulfate [facility] [address]-59 108 (90 Base) Oct 21, Active 2 puffs as HFA MCG/ACT 2019 needed Inhalation every 6 hrs PRN Warfarin Sodium [facility] 06789791325 3 MG Orally Jun 03, Active 1 tablet Once a day as 2018 directed Cholestyramine [facility] 10837926918 4 GM Orally Active 1 packet Twice a day mixed with water or non-carbonate d drink Vital Signs Date/Time: Oct 21, 2018 Blood Pressure Diastolic 72 mm Hg Blood Pressure Systolic 126 mm Hg Height 66.5 in Cardiac Monitoring Heart Rate 92 /min Results No Known Results Summary Purpose [employer]ClinicalWorks Submission
--- OUTSIDE RECORDS SUMMARY | 2019-05-25 23:18 | XMS REPORT ---
:1965 Author Organization [employer]Works Care Team Providers Name Role Phone Roxanne Pantoja Provider Role Unavailable Allergies, Adverse Reactions, Alerts Substance Reaction Event Type Adhesive Bandages Info Not Available Drug Allergy Keflex abdomen pain Drug Allergy Doxycycline Hyclate abdomen pain Drug Allergy Dilaudid hallucinations Drug Allergy Problems Problem Type Condition Code Onset Dates Condition Status Assessment Depression, unspecified depression F32.9 Active type Assessment Glossitis K14.0 Active Assessment Chronic anticoagulation Z79.01 Active Assessment Benign essential hypertension I10 Active Problem PE (pulmonary embolism) I26.99 Active [...] Start End Status Dosage System Date Date Promethazine HCl [facility] 10992781557 12.5 MG Orally Active 1 tablet every 6 hrs Polyethylene ND 20621176880 - Oral Active EVERY DAY Glycol 3350 DIRECTED Ferrous Sulfate ND 22587721677 325 (65 Fe) MG Active 1 tablet Orally twice a day (bid) Vitamin D [facility] 69530758134 28842 UNIT Nov 01Jul Active 1 capsule (Ergocalciferol) Orally once a 2019 03, 2018 Nystatin [facility] 61058476901 404645 UNIT/ML February 14February Active 4 ml Mouth/Throat 2018, swish and spit 2018 every 6 hours Ursodiol [facility] [address]-50 500 mg by Active 1 tablet mouth twice a day (bid) Ondansetron [facility] 62552780349 4 MG Orally Active 1 tablet on every 8 hrs the tongue and allow to dissolve Levothyroxine [facility] 23776865605 125 MCG Active TAKE 1 TABLET Sodium BY MOUTH ONCE A DAY ON AN EMPTY STOMACH 30 MINUTES BEFORE FIRST MEAL Nystatin [facility] 38954685823 550693 UNIT/GM Active 1 application Externally to affected Twice a day, area may discontinue 48 hours after rash has resolved Duloxetine HCl [facility] 47009662461 60 MG Orally Nov 21, Active 1 capsule daily 2018 Sucralfate [facility] 75271575970 1 GM Orally Active 1 tablet at Twice a day bedtime on an empty stomach before meals Spironolactone [facility] [address]-51 50 mg by mouth Active 1 tablet once every morning Pantoprazole ND 10121902260 40 mg Orally Active 1 tablet Sodium twice a day (bid) ProAir HFA [facility] 62885112774 108 (90 Base) Active 2 puffs as MCG/ACT needed Inhalation every 6 hrs Gabapentin ND 89324692787 300 MG Orally Active 1 capsule TID Hyoscyamine [facility] [address]-91 0.375 MG Active 2 tablet as Sulfate Orally every needed 12 hrs Pioglitazone HCl [facility] 75149352029 30 mg Orally Active 1 tablet Once a day Furosemide [facility] [address]-70 20 mg by mouth Active 1 tablet once every morning Atorvastatin [facility] 30478497319 40 MG Orally Active 1 tablet Calcium Once a day Vitamin C [facility] 18883091782 500 MG Orally Active as directed Tramadol HCl [facility] [address]-87 50 mg Q8 PRN Active as directed Triamcinolone [facility] 42461103926 0.1 % Nov 01, Active 1 application Acetonide Externally 2019 to affected Twice a day area PRN Carvedilol [facility] 42058107026 6.25 MG Active take 1 tablet by mouth twice daily with food Warfarin Sodium [facility] 74518570482 4 mg Orally Nov 21, Active 1 tablet wed, , wed Vital Signs Date/Time: February 14, 2019 BMI 43.88 Index Weight 276 lbs Height 66.5 in Cardiac Monitoring Heart Rate 69 /min Blood Pressure Diastolic 68 mm Hg Blood Pressure Systolic 114 mm Hg Results No Known Results Summary Purpose [employer]ClinicalWorks Submission
--- OUTSIDE RECORDS SUMMARY | 2019-05-25 23:18 | XMS REPORT ---
[...] Active Problem Fatty liver K76.0 Active Problem Osteopenia of multiple sites M85.89 Active Problem Other chronic pain G89.29 Active Problem Gastroesophageal reflux disease, K21.9 Active esophagitis presence not specified Problem Low back pain M54.5 Active Problem Type 2 diabetes mellitus with E11.65 Active hyperglycemia, without long-term current use of insulin Problem Benign essential hypertension I10 Active Problem Chronic anticoagulation Z79.01 Active Problem Primary insomnia F51.01 Active Problem Barretts esophagus K22.70 Active Problem Vertigo R42 Active Problem PE (pulmonary embolism) I26.99 Active Problem Vitamin D deficiency E55.9 Active Problem DVT (deep venous thrombosis) I82.409 Active Problem Depression, unspecified depression F32.9 Active type Medications No Known Medications Results No Known Results Summary Purpose eClinicalWorks Submission
--- OUTSIDE RECORDS SUMMARY | 2019-05-25 23:18 | XMS REPORT ---
:1965 Author Organization e[employer]Works Care Team Providers Name Role Phone Roxanne Pnatoja Provider Role Unavailable Allergies, Adverse Reactions, Alerts Substance Reaction Event Type Adhesive Bandages Info Not Available Drug Allergy Keflex abdomen pain Drug Allergy Doxycycline Hyclate abdomen pain Drug Allergy Dilaudid hallucinations Drug Allergy Bactrim BLEEDING Drug Allergy Problems Problem Type Condition Code Onset Dates Condition Status Assessment Kidney stone N20.0 Active Assessment Urinary tract infection, site not N39.0 Active specified Assessment Benign essential hypertension I10 Active Assessment Chronic anticoagulation Z79.01 Active Problem Primary insomnia [...] constipation and diarrhea Problem Gastroparesis K31.84 Active Assessment Type 2 diabetes mellitus with E11.65 Active hyperglycemia, without long-term current use of insulin Problem Gastroesophageal reflux disease, K21.9 Active esophagitis presence not specified Assessment Gastroparesis K31.84 Active Problem Other chronic pain G89.29 Active Problem Diverticulosis of large intestine K57.30 Active without hemorrhage Problem Acquired hypothyroidism E03.9 Active Problem BMI 40.0-44.9, adult Z68.41 Active Problem Osteopenia of multiple sites M85.89 Active Problem Type 2 diabetes mellitus with E11.65 Active hyperglycemia, without long-term current use of insulin Problem Low back pain M54.5 Active Medications Medication Code Code Instructions Start End Status Dosage System Date Date Promethazine HCl [facility] 68043487150 12.5 MG Orally Active 1 tablet every 6 hrs ProAir HFA [facility] 85880490110 108 (90 Base) Active 2 puffs as MCG/ACT needed Inhalation every 6 hrs Sucralfate ND 22948892018 1 GM Orally Active 1 tablet at Twice a day bedtime on an empty stomach before meals Hyoscyamine [facility] [address]-92 0.375 MG Active 2 tablet as Sulfate Orally every needed 12 hrs Tourichard SoloStar ND 72612999656 300 UNIT/ML March Active as directed Subcutaneous 07, 60 units at 2019 night Warfarin Sodium ND 36541898103 3 MG Orally Active 1 tablet Once a day as directed Triamcinolone [facility] 47321828728 0.1 % Active 1 application Acetonide Externally to affected Twice a day area PRN Polyethylene ND 89877263023 - Oral Active EVERY DAY Glycol 3350 DIRECTED Ondansetron [facility] 59222320708 4 MG Orally Active 1 tablet on every 8 hrs the tongue and allow to dissolve Furosemide ND 32651791251 20 mg by mouth Active 1 tablet once every morning Nystatin [facility] 64773847812 288701 UNIT/GM Active 1 application Externally to affected Twice a day area PRN Lovenox ND 95582796289 80 MG/0.8ML March 08, Active as directed Subcutaneous 2018 twice daily (begin 8 days prior to procedure, discontinue 24 hours before, then restart day after) NovoLog Flexpen ND 38980281886 100 UNIT/ML March Active as directed Subcutaneous 07, 20 units at 2019 mealtimes Carvedilol ND 93866480599 6.25 MG Active take 1 tablet by mouth twice daily with food Nystatin ND 95934260676 848086 UNIT/GM Active 1 application Externally to affected Twice a day, area may discontinue 48 hours after rash has resolved Pantoprazole [facility] 16126421457 40 mg Orally Active 1 tablet Sodium twice a day (bid) Atorvastatin ND 94109483336 40 MG Orally Active 1 tablet Calcium Once a day Tramadol HCl [facility] [address]-56 50 mg Q8 PRN Active as directed Vitamin C [facility] 59728453871 500 MG Orally Active as directed Gabapentin [facility] 41996188930 300 MG Orally Active 1 capsule TID Warfarin Sodium [facility] 71862490429 4 mg Orally Nov 21, Active 1 tablet wed Duloxetine HCl [facility] 56424761245 60 MG Orally Nov 21, Active 1 capsule daily 2019 Ferrous Sulfate [facility] 13123374378 325 (65 Fe) MG Active 1 tablet Orally twice a day (bid) Levothyroxine [facility] 60300204844 125 MCG Active TAKE 1 TABLET Sodium BY MOUTH ONCE A DAY ON AN EMPTY STOMACH 30 MINUTES BEFORE FIRST MEAL Spironolactone [facility] 87898351661 50 mg by mouth Active 1 tablet once every morning Vitamin D [facility] 64537791537 71330 UNIT Nov 01Jul Active 1 capsule (Ergocalciferol) Orally once a 2019 2018 Pioglitazone HCl [facility] 51533218381 30 mg Orally Active 1 tablet Once a day Ursodiol [facility] 96300152198 500 mg by Active 1 tablet mouth twice a day (bid) Vital Signs Date/Time: April 19, 2019 BMI 42.76 Index Weight 269 lbs Height 66.5 in Cardiac Monitoring Heart Rate 95 /min Blood Pressure Diastolic 70 mm Hg Blood Pressure Systolic 128 mm Hg Results Name Result Date Reference Range Unit Abnormality Flag PROTHROMBIN TIME-INR ----PT 32.6 20190419 ----INR 2.6 20190419 Summary Purpose eClinicalWorks Submission
--- OUTSIDE RECORDS SUMMARY | 2019-05-25 23:19 | XMS REPORT ---
[...] chronic pain G89.29 Active Medications Medication Code System Code Instructions Start Date End Date Status Dosage Bactrim DS [facility] 98042883872 800-160 MG Orally February 16, February 26, Active 1 tablet Twice a day 2018 2018 Results No Known Results Summary Purpose [employer] Submission
--- OUTSIDE RECORDS SUMMARY | 2019-05-25 23:19 | XMS REPORT ---
:1965 Author Organization eClinicalWorks Care Team Providers Name Role Phone Roxanne Pantoja Provider Role Unavailable Allergies No Known Allergies Problems Problem Type Condition Code Onset Dates Condition Status Problem Other chronic pain G89.29 Active Problem BMI 40.0-44.9, adult Z68.41 Active Problem Low back pain M54.5 Active Problem Abnormal mammogram R92.8 Active Problem Chronic anticoagulation Z79.01 Active Problem Cirrhosis of liver without ascites, K74.60 Active unspecified hepatic cirrhosis type Problem Benign essential hypertension I10 Active Problem Primary insomnia F51.01 Active Problem 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 Active Problem Anemia, unspecified type D64.9 Active Problem Osteopenia of multiple sites M85.89 Active Problem Memory loss R41.3 Active Problem Hepatic steatosis K76.0 Active Problem PE (pulmonary embolism) I26.99 Active Problem Other and unspecified E78.5 Active hyperlipidemia Problem DVT (deep venous thrombosis) I82.409 Active Problem Vertigo R42 Active Problem Gastroesophageal reflux disease, K21.9 Active esophagitis presence not specified Problem Vitamin D deficiency E55.9 Active Problem Diverticulosis of large intestine K57.30 Active without hemorrhage Problem Depression, unspecified depression F32.9 Active type Problem Acquired hypothyroidism E03.9 Active Problem Type 2 diabetes mellitus with E11.65 Active hyperglycemia, without long-term current use of insulin Medications Medication Code Code Instructions Start End Date Status Dosage System Date Lovenox [facility] 60415503351 80 MG/0.8ML Sep 12, Active as directed Subcutaneous bid 2017 Results No Known Results Summary Purpose [employer] Submission
--- OUTSIDE RECORDS SUMMARY | 2019-05-25 23:19 | XMS REPORT ---
:1965 Author Organization eClinicalWorks Care Team Providers Name Role Phone Roxanne Pantoja Provider Role Unavailable Allergies, Adverse Reactions, Alerts Substance Reaction Event Type Adhesive Bandages Info Not Available Drug Allergy Keflex abdomen pain Drug Allergy Doxycycline Hyclate abdomen pain Drug Allergy Dilaudid hallucinations Drug Allergy Problems Problem Type Condition Code Onset Dates Condition Status Assessment Fatty liver K76.0 Active Problem Other and unspecified E78.5 Active hyperlipidemia Assessment Benign essential hypertension I10 Active Problem Diverticulosis of large intestine K57.30 Active without hemorrhage Assessment Type 2 diabetes mellitus with E11.65 Active hyperglycemia, without long-term current use of insulin Problem Acquired hypothyroidism E03.9 Active Problem Other chronic pain G89.29 Active Problem Gastroesophageal reflux disease, K21.9 Active esophagitis presence not specified Problem Anemia, unspecified type D64.9 Active Problem Osteopenia of multiple sites M85.89 Active Assessment Chronic anticoagulation Z79.01 Active Assessment HIV antibody positive Z21 Active Problem HIV antibody positive Z21 Active Assessment Barretts esophagus K22.70 Active Problem Low back pain M54.5 Active [...] thrombosis) I82.409 Active Problem Vertigo R42 Active Medications Medication Code Code Instructions Start End Status Dosage System Date Date Metformin HCl ND 19438342181 500 MG Active TAKE 2 TABLETS BY MOUTH TWICE A DAY WITH MEALS Warfarin Sodium ND 86355301718 3 MG Active TAKE 1 TABLET BY MOUTH ONCE A DAY DIRECTED Zofran ND 32059544041 4 mg Orally Q8 January Active 1-2 PRN 20, tablets 2017 Pantoprazole ND 59675352451 40 MG Orally December Active 1 tablet Sodium Once a day 2016 Farxiga [facility] 80198268728 5 MG Orally January Inactive 1 tablet Once a day 2017 Levothyroxine [facility] 79450414623 125 MCG Active take 1 Sodium tablet by mouth daily on an empty stomach 1/2 hour before 1st meal of the day Sertraline HCl [facility] 32448325078 100 MG Orally Active 1 tablet Once a day Lovenox [facility] 38472188895 80 MG/0.8ML January Active as Subcutaneous , directed inject SC BID 2017 5 days before surgery and discontinue 24 hours before procedure Lisinopril [facility] 20544049835 5 MG Active TAKE 1 TABLET BY MOUTH EVERY DAY Novofine 31 [facility] 0 31G X 6 MM as Jul 16, Active as directed daily 2016 directed with use of Victoza Victoza [facility] 97776936959 18 MG/3ML May Active as Subcutaneous , directed 1.2 mg SC 2017 daily Dicyclomine HCl [facility] [address]-79 10 mg Orally Active 1 ml Four times a day Ergocalciferol [facility] 26263320785 54222 UNIT January Active 1 capsule Orally once 17, 14, per week 2017 2017 Warfarin Sodium [facility] 37454576686 4 mg Orally QD Active 1 tablet as directed Flexeril [facility] 61265224422 10 MG Active TAKE 1/2 TO 1 TABLET BY MOUTH EVERY 8 HOURS NEEDED T48-Plczpu [facility] 55612716402 1 MG Orally Active not defined Rosuvastatin [facility] 68007084079 20 MG Active TAKE 1 Calcium TABLET BY MOUTH EVERY DAY Ferrous Sulfate [facility] [address]-52 325 (65 Fe) MG Active 1 tablet Orally twice a day (bid) Carvedilol [facility] 11838374962 6.25 MG Active take 1 tablet by mouth twice daily with food Vital Signs Date/Time: February 11, 2018 BMI 39.27 Index Weight 247 lbs Height 66.5 in Cardiac Monitoring Heart Rate 84 /min Blood Pressure Diastolic 70 mm Hg Blood Pressure Systolic 112 mm Hg Results No Known Results Summary Purpose eClinicalWorks Submission
--- OUTSIDE RECORDS SUMMARY | 2019-05-25 23:19 | XMS REPORT ---
[...] Medications Results No Known Results Summary Purpose [employer] Submission
--- OUTSIDE RECORDS SUMMARY | 2019-05-25 23:19 | XMS REPORT ---
:1965 Author Organization eClinicalWorks Care Team Providers Name Role Phone Roxanne Pantoja Provider Role Unavailable Allergies No Known Allergies Problems Problem Type Condition Code Onset Dates Condition Status Problem Acquired hypothyroidism E03.9 Active Problem Other chronic pain G89.29 Active Problem Gastroesophageal reflux disease, K21.9 Active esophagitis presence not specified Problem Anemia, unspecified type D64.9 Active Assessment Chronic anticoagulation Z79.01 Active Problem Osteopenia of multiple sites M85.89 Active Assessment Type 2 diabetes mellitus with E11.65 Active hyperglycemia, without long-term current use of insulin Assessment Other and unspecified E78.5 Active hyperlipidemia Problem HIV antibody positive Z21 Active Problem [...] large intestine K57.30 Active without hemorrhage Medications Medication Code Code Instructions Start End Status Dosage System Date Date Ergocalciferol [facility] 43253009610 66437 UNIT January Active 1 capsule Orally once per 17, 14, week 2017 2017 Dicyclomine HCl ND 28362862846 10 mg Orally Active 1 ml Four times a day Lisinopril ND 30289435168 5 MG Active TAKE 1 TABLET BY MOUTH EVERY DAY Rosuvastatin ND 56524398185 20 MG Inactive TAKE 1 Calcium TABLET BY MOUTH EVERY DAY Metformin HCl ND 00008085077 500 MG Active TAKE 2 TABLETS BY MOUTH TWICE A DAY WITH MEALS Y12-Tpvmpc [facility] 86551961233 1 MG Orally Active not defined Ferrous Sulfate ND 28208877187 325 (65 Fe) MG Active 1 tablet Orally twice a day (bid) Novofine 31 ND 0 31G X 6 MM as Jul 16, Active as directed daily 2016 directed with use of Victoza Pantoprazole [facility] 56104365833 40 MG Orally December Active 1 tablet Sodium Once a day 2016 Atorvastatin ND 79423663031 40 mg Orally February 22, Active 1 tablet Calcium Once a day 2017 Victoza [facility] 56772281461 18 MG/3ML May Active as Subcutaneous directed 1.2 mg SC daily 2017 Levothyroxine [facility] 27042156943 125 MCG Active take 1 Sodium tablet by mouth daily on an empty stomach 1/2 hour before 1st meal of the day Warfarin Sodium [facility] 68263387824 4 mg Orally QD Active 1 tablet as directed Carvedilol [facility] 94905903119 6.25 MG Active take 1 tablet by mouth twice daily with food Sertraline HCl [facility] 03086882301 100 MG Orally Active 1 tablet Once a day Zofran [facility] 09699844486 4 mg Orally Q8 January Active 1-2 PRN 20, tablets 2017 Warfarin Sodium [facility] 38107229812 3 MG Active TAKE 1 TABLET BY MOUTH ONCE A DAY DIRECTED Flexeril [facility] 47885581130 10 MG Active TAKE 1/2 TO 1 TABLET BY MOUTH EVERY 8 HOURS NEEDED Vital Signs Date/Time: February 22, 2018 Blood Pressure Diastolic 52 mm Hg Blood Pressure Systolic 114 mm Hg Height 66.5 in Cardiac Monitoring Heart Rate 86 /min Results Name Result Date Reference Range Unit Abnormality Flag PROTHROMBIN TIME-INR ----PT 20.5 [id number] ----INR 1.7 [id number] Summary Purpose eClinicalWorks Submission
--- OUTSIDE RECORDS SUMMARY | 2019-05-25 23:19 | XMS REPORT ---
[...] Problem Vitamin D deficiency E55.9 Active Medications Medication Code System Code Instructions Start End Date Status Dosage Date Benzonatate NDC 32077336456 200 MG Orally Q8 Aug 30, Sep 06, Active 1 capsule PRN 2017 2017 Levaquin NDC 71402820957 500 mg Orally Aug 30, Sep 06, Active 1 tablet Once a day 2017 2017 Results No Known Results Summary Purpose eClinicalWorks Submission
--- OUTSIDE RECORDS SUMMARY | 2019-05-25 23:19 | XMS REPORT ---
[...] Medications Results No Known Results Summary Purpose [employer] [facility] Submission
--- OUTSIDE RECORDS SUMMARY | 2019-05-25 23:19 | XMS REPORT ---
[...] Medications Results No Known Results Summary Purpose [employer] Submission
--- OUTSIDE RECORDS SUMMARY | 2019-05-25 23:19 | XMS REPORT ---
[...] Medications Results No Known Results Summary Purpose [employer] Submission
--- OUTSIDE RECORDS SUMMARY | 2019-05-25 23:19 | XMS REPORT ---
[...] K57.30 Active without hemorrhage Medications Medication Code System Code Instructions Start End Date Status Dosage Date Zofran [facility] 54752276431 4 mg Orally Q8 January 28, Active 1-2 tablets PRN 2018 Results No Known Results Summary Purpose eClinicalWorks Submission
--- OUTSIDE RECORDS SUMMARY | 2019-05-25 23:19 | XMS REPORT ---
:1965 Author Organization eClinicalWorks Care Team Providers Name Role Phone Roxanne Pantoja Provider Role Unavailable Allergies, Adverse Reactions, Alerts Substance Reaction Event Type Adhesive Bandages Info Not Available Drug Allergy Keflex abdomen pain Drug Allergy Doxycycline Hyclate abdomen pain Drug Allergy Dilaudid hallucinations Drug Allergy Problems Problem Type Condition Code Onset Dates Condition Status Assessment Anemia, unspecified type D64.9 Active Assessment Chronic anticoagulation Z79.01 Active Problem Vitamin D deficiency E55.9 Active Assessment Type 2 diabetes mellitus with E11.65 Active hyperglycemia, without long-term current use of insulin Problem Other and unspecified E78.5 Active hyperlipidemia Assessment Vitamin D deficiency E55.9 Active Problem Diverticulosis of large intestine K57.30 Active without hemorrhage Problem Gastroesophageal reflux disease, K21.9 Active esophagitis presence not specified Problem Acquired hypothyroidism E03.9 Active Problem Osteopenia of multiple sites M85.89 Active Problem BMI 40.0-44.9, adult Z68.41 Active Assessment Acquired hypothyroidism E03.9 Active Assessment Other and unspecified E78.5 Active hyperlipidemia Problem Anemia, unspecified type D64.9 Active Assessment Benign essential hypertension I10 Active Problem Type 2 diabetes mellitus with [...] I82.409 Active Problem Barretts esophagus K22.70 Active Medications Medication Code Code Instructions Start End Status Dosage System Date Date Novofine 31 NDC 0 31G X 6 MM as Jul 16, Active as directed daily 2016 directed with use of Victoza Farxiga ND 74514075939 5 MG Orally January Active 1 tablet Once a day 2017 Flexeril [facility] 06965536352 10 MG Active TAKE 1/2 TO 1 TABLET BY MOUTH EVERY 8 HOURS NEEDED Victoza [facility] 76529346845 18 MG/3ML January Active as Subcutaneous directed 1.2 mg SC 2017 daily Ergocalciferol [facility] 86211157255 11350 UNIT JanuaryJul 24, Active 1 capsule Orally once 2017 per week 2018 Sertraline HCl [facility] 11801056045 100 MG Orally Active 1 tablet Once a day Warfarin Sodium [facility] 73585057097 3 MG Orally January Active 1 tablet Once a day as 2017 Warfarin Sodium [facility] 65640587882 4 mg Orally QD Active 1 tablet as directed Rosuvastatin [facility] 74849835841 20 MG Orally Active 1 tablet Calcium Once a day Carvedilol [facility] 20492804172 6.25 MG Active TAKE 1 TABLET BY MOUTH TWICE DAILY WITH FOOD Lovenox [facility] 45382580091 80 MG/0.8ML January Active as Subcutaneous inject SC BID 2017 5 days before surgery and discontinue 24 hours before procedure N20-Ciivay [facility] 30745462968 1 MG Orally Active not defined Levothyroxine [facility] 15852959629 125 MCG Active take 1 Sodium tablet by mouth daily on an empty stomach 1/2 hour before 1st meal of the day Lisinopril [facility] 19213519475 5 MG Active TAKE 1 TABLET BY MOUTH EVERY DAY Jardiance [facility] 70252177018 10 mg Orally January Inactive 1 tablet Once a day 2017 Pantoprazole [facility] 88663598086 40 MG Orally December Active 1 tablet Sodium Once a day 2016 Metformin HCl [facility] 72062224797 500 MG Active TAKE 2 TABLETS BY MOUTH TWICE A DAY WITH MEALS Vital Signs Date/Time: January 25, 2018 BMI 39.27 Index Weight 247 lbs Height 66.5 in Temperature 98.7 F Cardiac Monitoring Heart Rate 80 /min Blood Pressure Diastolic 62 mm Hg Blood Pressure Systolic 128 mm Hg Results No Known Results Summary Purpose eClinicalWorks Submission
--- OUTSIDE RECORDS SUMMARY | 2019-05-25 23:20 | XMS REPORT ---
:1965 Author Organization eClinicalWorks Care Team Providers Name Role Phone Roxanne Pantoja Provider Role Unavailable Allergies No Known Allergies Problems Problem Type Condition Code Onset Dates Condition Status Assessment DVT (deep venous thrombosis) I82.409 Active Problem Depression, unspecified depression F32.9 Active type Assessment PE (pulmonary embolism) I26.99 Active Problem Type 2 diabetes mellitus with E11.65 Active hyperglycemia, without long-term current use of insulin Problem Other chronic pain G89.29 Active Problem BMI 40.0-44.9, adult Z68.41 Active Problem Low back pain M54.5 Active Problem Abnormal mammogram R92.8 Active Problem Cirrhosis of liver without ascites, K74.60 Active unspecified hepatic cirrhosis type Problem Chronic anticoagulation Z79.01 Active Problem Benign essential hypertension I10 Active Problem 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 Active Problem Primary insomnia F51.01 Active Problem Anemia, unspecified type D64.9 Active [...] without hemorrhage Problem Acquired hypothyroidism E03.9 Active Medications Medication Code Code Instructions Start End Status Dosage System Date Date Hyoscyamine [facility] [address]-29 0.375 MG Active 1 tablet as Sulfate Orally every 4 needed hrs before meals Sucralfate ND 15370273962 1 GM Orally Active 1 tablet at Twice a day bedtime on an empty stomach before meals Carvedilol [facility] 62225592067 6.25 MG Active take 1 tablet by mouth twice daily with food Ferrous Sulfate [facility] 56485473735 325 (65 Fe) MG Active 1 tablet Orally twice a day (bid) Lidocaine NDC 0 3 % Externally Sep 07, Active 1 application Twice a day 2018 to affected PRN area as needed Polyethylene [facility] 18834611212 - Oral Active EVERY DAY Glycol 3350 DIRECTED Pantoprazole [facility] 67715770575 40 mg Orally Active 1 tablet Sodium twice a day (bid) Lovenox ND 92459518670 80 MG/0.8ML Sep 12, Active as directed Subcutaneous 2018 bid Sertraline HCl [facility] 38381760443 100 MG Active TAKE 1 TABLET BY MOUTH EVERY DAY Pioglitazone HCl [facility] 36711216446 30 mg Orally Sep 07, Active 1 tablet Once a day 2017 Tourichard [employer] ND 56917508169 300 UNIT/ML Active as directed Subcutaneous 50 units once nightly Rosuvastatin ND 42051135089 20 MG Orally Active 1 tablet Calcium Once a day Cholestyramine ND 89684425082 4 GM Orally Active 1 packet Twice a day mixed with water or non-carbonate d drink Warfarin Sodium ND 36943744910 3 MG Orally Jun 03, Active 1 tablet Once a day as 2017 directed Levothyroxine [facility] 34591037277 125 MCG Active TAKE 1 TABLET Sodium BY MOUTH ONCE A DAY ON AN EMPTY STOMACH 30 MINUTES BEFORE FIRST MEAL Atorvastatin [facility] 97945344598 40 mg Orally Active 1 tablet Calcium Once a day [place]etta 10 MCG Pen ND 33169825050 10 MCG/0.04ML March Active as directed Subcutaneous , twice a day 2017 (bid) Ondansetron [facility] 50049087349 4 MG Orally Active 1 tablet on every 8 hrs the tongue and allow to dissolve Promethazine HCl [facility] 88284229154 12.5 MG Orally Active 1 tablet every 6 hrs Warfarin Sodium [facility] 19549724269 4 mg Orally qd May 18, Active 1 tablet as directed 2017 Results Name Result Date Reference Range Unit Abnormality Flag PROTHROMBIN TIME-INR ----PT 19.5 [id number] ----INR 1.6 [id number] Summary Purpose eClinicalWorks Submission
--- OUTSIDE RECORDS SUMMARY | 2019-05-25 23:20 | XMS REPORT ---
[...] Medications Results No Known Results Summary Purpose [employer] Submission
--- OUTSIDE RECORDS SUMMARY | 2019-05-25 23:20 | XMS REPORT ---
[...] Medications Results No Known Results Summary Purpose [employer] Submission
--- OUTSIDE RECORDS SUMMARY | 2019-05-25 23:20 | XMS REPORT ---
[...] Other and unspecified E78.5 Active hyperlipidemia Medications No Known Medications Results No Known Results Summary Purpose [employer] Submission
--- OUTSIDE RECORDS SUMMARY | 2019-05-25 23:20 | XMS REPORT ---
[...] Medications Results No Known Results Summary Purpose [employer] Submission
--- OUTSIDE RECORDS SUMMARY | 2019-05-25 23:20 | XMS REPORT ---
[...] End Status Dosage System Date Date Lisinopril [facility] 09868186908 5 MG Active TAKE 1 TABLET BY MOUTH EVERY DAY Atorvastatin ND 30309168690 40 mg Orally February 22, Active 1 tablet Calcium Once a day 2017 Ferrous Sulfate [facility] 52133533205 325 (65 Fe) MG Active 1 tablet Orally twice a day (bid) Sertraline HCl ND 15166812623 100 MG Orally Active 1 tablet Once a day Dicyclomine HCl [facility] 85308809718 10 mg Orally Active 1 ml Four times a day Zofran [facility] 20334622219 4 mg Orally Q8 January Active 1-2 PRN 2017 tablets Ergocalciferol [facility] 14239045193 36821 UNIT JanuaryJul 24, Active 1 capsule Orally once per 2017 2018 week Warfarin Sodium ND 43693643897 4 mg Orally QD Active 1 tablet as directed Pantoprazole [facility] 10684149543 40 MG Orally December Active 1 tablet Sodium Once a day 2016 Metformin HCl [facility] 90617917357 500 MG Active TAKE 2 TABLETS BY MOUTH TWICE A DAY WITH MEALS Flexeril [facility] 42372716329 10 MG Active TAKE 1/2 TO 1 TABLET BY MOUTH EVERY 8 HOURS NEEDED Carvedilol [facility] 54081409957 6.25 MG Active take 1 tablet by mouth twice daily with food Novofine 31 [facility] 0 31G X 6 MM as Jul 16, Active as directed daily 2016 directed with use of Victoza Warfarin Sodium [facility] 45460436140 3 MG Active TAKE 1 TABLET BY MOUTH ONCE A DAY DIRECTED R69-Mzfhnd [facility] 18135942916 1 MG Orally Active not defined Victoza [facility] 72127144181 18 MG/3ML May 12, Active as Subcutaneous 2017 directed 1.2 mg SC daily Levothyroxine [facility] 98481708524 125 MCG Active take 1 Sodium tablet by mouth daily on an empty stomach 1/2 hour before 1st meal of the day Vital Signs Date/Time: March 08, 2018 Blood Pressure Diastolic 60 mm Hg Blood Pressure Systolic 126 mm Hg Height 66.5 in Cardiac Monitoring Heart Rate 80 /min Results Name Result Date Reference Range Unit Abnormality Flag PROTHROMBIN TIME-INR ----PT 26.9 [id number] ----INR 2.2 [id number] Summary Purpose eClinicalWorks Submission
--- OUTSIDE RECORDS SUMMARY | 2019-05-25 23:20 | XMS REPORT ---
:1965 Author Organization eClinicalWorks Care Team Providers Name Role Phone Roxanne Pantoja Provider Role Unavailable Allergies No Known Allergies Problems Problem Type Condition Code Onset Dates Condition Status Problem Acquired hypothyroidism E03.9 Active Problem Other chronic pain G89.29 Active Problem Gastroesophageal reflux disease, K21.9 Active esophagitis presence not specified Problem Anemia, unspecified type D64.9 Active Assessment DVT (deep venous thrombosis) I82.409 Active Problem Osteopenia of multiple sites M85.89 Active Assessment Chronic anticoagulation Z79.01 Active Problem HIV antibody positive Z21 Active [...] Start End Status Dosage System Date Date Atorvastatin ND 65634571587 40 mg Orally February 22, Active 1 tablet Calcium Once a day 2017 Levothyroxine ND 42700438747 125 MCG Active TAKE 1 Sodium TABLET BY MOUTH ONCE A DAY ON AN EMPTY STOMACH 30 MINUTES BEFORE FIRST MEAL Ferrous Sulfate ND 85691320126 325 (65 Fe) MG Active 1 tablet Orally twice a day (bid) Metformin HCl ND 40584573556 500 MG Active TAKE 2 TABLETS BY MOUTH TWICE A DAY WITH MEALS Dicyclomine HCl ND 36808374286 10 mg Orally Active 1 ml Four times a day Zofran ND 35336127777 4 mg Orally Q8 January Active 1-2 PRN 2017 tablets Novofine 31 NDC 0 31G X 6 MM as Jul 16, Active as directed daily 2016 directed with use of Victoza Ergocalciferol [facility] 39566575434 67095 UNIT JanuaryJul 24, Active 1 capsule Orally once per 2017 2018 week Warfarin Sodium [facility] 48789774272 3 MG Active TAKE 1 TABLET BY MOUTH ONCE A DAY DIRECTED Lisinopril [facility] 46290795580 5 MG Active TAKE 1 TABLET BY MOUTH EVERY DAY Flexeril [facility] 93222084913 10 MG Active TAKE 1/2 TO 1 TABLET BY MOUTH EVERY 8 HOURS NEEDED Pantoprazole [facility] 26043203555 40 MG Orally December Active 1 tablet Sodium Once a day [address] [facility] 58777873710 100 MG Orally Active 1 tablet Once a day Victoza [facility] 48932895504 18 MG/3ML May 12, Active as Subcutaneous 2017 directed 1.2 mg SC daily Carvedilol [facility] 64378316911 6.25 MG Active take 1 tablet by mouth twice daily with food L16-Kabeux [facility] 37380750246 1 MG Orally Active not defined Vital Signs Date/Time: March 22, 2018 Blood Pressure Diastolic 60 mm Hg Blood Pressure Systolic 110 mm Hg Height 66.5 in Cardiac Monitoring Heart Rate 87 /min Results Name Result Date Reference Range Unit Abnormality Flag PROTHROMBIN TIME-INR ----PT 35.8 [id number] ----INR 2.9 [id number] Summary Purpose eClinicalWorks Submission
--- OUTSIDE RECORDS SUMMARY | 2019-05-25 23:21 | XMS REPORT ---
:1965 Author Organization e[employer]Works Care Team Providers Name Role Phone Manolo Olsen Provider Role Unavailable Allergies No Known Allergies Problems Problem Type Condition Code Onset Dates Condition Status Assessment Chronic anticoagulation Z79.01 Active Assessment DVT (deep venous thrombosis) I82.409 Active Problem PE (pulmonary embolism) I26.99 Active [...] End Status Dosage System Date Date Atorvastatin [facility] 16998423208 40 MG Orally Active 1 tablet Calcium Once a day Carvedilol [facility] 26144807890 6.25 MG Active take 1 tablet by mouth twice daily with food Tramadol HCl [facility] [address]-23 50 mg Q8 PRN Active as directed Levothyroxine [facility] 23756050018 125 MCG Active TAKE 1 TABLET Sodium BY MOUTH ONCE A DAY ON AN EMPTY STOMACH 30 MINUTES BEFORE FIRST MEAL Pantoprazole ND 39630618821 40 mg Orally Active 1 tablet Sodium twice a day (bid) Sucralfate ND 59333679156 1 GM Orally Active 1 tablet at Twice a day bedtime on an empty stomach before meals Albuterol ND 22682425968 108 (90 Base) Active 2 puffs as Sulfate HFA MCG/ACT needed Inhalation every 6 hrs PRN Promethazine HCl [facility] 91613309481 12.5 MG Orally Active 1 tablet every 6 hrs Warfarin Sodium ND 94507508399 3 MG Orally Active 1 tablet sun, tues, thurs, sat Hyoscyamine [facility] [address]-08 0.375 MG Active 2 tablet as Sulfate Orally every needed 12 hrs Pioglitazone HCl ND 84641548169 30 mg Orally Active 1 tablet Once a day Ondansetron ND 32004237566 4 MG Orally Active 1 tablet on every 8 hrs the tongue and allow to dissolve Lovenox [facility] 40848103102 80 MG/0.8ML Sep 12, Active as directed Subcutaneous 2017 BID, begin 5 days before procedure, stop 24 hours before procedure, restart day after procedure Triamcinolone ND 53299278134 0.1 % Nov 01, Active 1 application Acetonide Externally 2019 to affected Twice a day area PRN Polyethylene ND 10417390249 - Oral Active EVERY DAY Glycol 3350 DIRECTED Nystatin [facility] 28547869745 655561 UNIT/GM Active 1 application Externally to affected Twice a day, area may discontinue 48 hours after rash has resolved Ferrous Sulfate ND 19994186354 325 (65 Fe) MG Active 1 tablet Orally twice a day (bid) Gabapentin ND 18439681356 300 MG Orally Active 1 capsule TID ProAir HFA [facility] 83634668601 108 (90 Base) Active 2 puffs as MCG/ACT needed Inhalation every 6 hrs Duloxetine HCl ND 87585191020 60 MG Orally Nov 21, Active 1 capsule daily 2019 Vitamin C ND 75445003083 500 MG Orally Active as directed Warfarin Sodium ND 69739196201 4 mg Orally Nov 21, Active 1 tablet wed, wed, wed Vitamin D [facility] 46963704209 32125 UNIT Enrike 22, Active 1 capsule (Ergocalciferol) Orally once a 2018 week Benzonatate [facility] 03684977360 200 MG Orally Active 1 capsule Three times a day Results No Known Results Summary Purpose eClinicalWorks Submission
--- OUTSIDE RECORDS SUMMARY | 2019-05-25 23:21 | XMS REPORT ---
:1965 Author Organization eClinicalWorks Care Team Providers Name Role Phone Roxanne Pantoja Provider Role Unavailable Allergies No Known Allergies Problems Problem Type Condition Code Onset Dates Condition Status Assessment TANIA (obstructive sleep apnea) G47.33 Active Assessment DVT (deep venous thrombosis) I82.409 Active Assessment PE (pulmonary embolism) I26.99 Active Problem Type 2 diabetes mellitus with E11.65 Active hyperglycemia, without long-term current use of insulin Problem Other chronic pain G89.29 Active Problem Primary insomnia F51.01 Active Problem Low back pain M54.5 Active Problem Osteopenia of multiple sites M85.89 Active Problem BMI 40.0-44.9, adult Z68.41 Active Problem 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 Active Problem Abnormal mammogram R92.8 Active Problem DVT (deep venous thrombosis) I82.409 Active Problem Chronic anticoagulation Z79.01 Active Problem TANIA (obstructive sleep apnea) G47.33 Active Problem Benign essential hypertension I10 Active Problem Hepatic steatosis K76.0 Active Problem Anemia, unspecified type D64.9 Active Problem Cirrhosis of liver without ascites, K74.60 Active unspecified hepatic cirrhosis type Problem Memory loss R41.3 Active Problem Other and unspecified E78.5 Active hyperlipidemia Problem Diverticulosis of large intestine K57.30 Active without hemorrhage Problem Vertigo R42 Active Problem PE (pulmonary embolism) I26.99 Active Problem Vitamin D deficiency E55.9 Active Problem Depression, unspecified depression F32.9 Active type Problem Acquired hypothyroidism E03.9 Active Problem Gastroesophageal reflux disease, K21.9 Active esophagitis presence not specified Medications Medication Code Code Instructions Start End Status Dosage System Date Date Pantoprazole [facility] 01042662222 40 mg Orally Active 1 tablet Sodium twice a day (bid) Sucralfate [facility] 19733555320 1 GM Orally Active 1 tablet at Twice a day bedtime on an empty stomach before meals Sertraline HCl [facility] 69042687728 100 MG Active TAKE 1 TABLET BY MOUTH EVERY DAY Carvedilol [facility] 13242801884 6.25 MG Active take 1 tablet by mouth twice daily with food Byetta [address] [facility] 74419061575 10 MCG/0.04ML March Active as directed Subcutaneous , twice a day 2017 (bid) Warfarin Sodium [facility] 51332697721 4 mg Orally qd May 18, Active 1 tablet as directed [address] [facility] 35366929202 125 MCG Active TAKE 1 TABLET Sodium BY MOUTH ONCE A DAY ON AN EMPTY STOMACH 30 MINUTES BEFORE FIRST MEAL Michael CarrillooStar [facility] 49628694168 300 UNIT/ML Active as directed Subcutaneous 50 units once nightly Promethazine HCl [facility] 84079525989 12.5 MG Orally Active 1 tablet every 6 hrs Lidocaine ND 0 3 % Externally Sep 07, Active 1 application Twice a day 2017 to affected PRN area as needed Pioglitazone HCl ND 06005204003 30 mg Orally Sep 07, Active 1 tablet Once a day [address] [facility] 18587144649 - Oral Active EVERY DAY Glycol 33[address] [facility] 59310261187 40 mg Orally Active 1 tablet Calcium Once a day Warfarin Sodium [facility] 24564665328 3 MG Orally Jun 03, Active 1 tablet Once a day as [address] [facility] [address]-74 0.375 MG Active 1 tablet as Sulfate Orally every 4 needed hrs before meals Rosuvastatin [facility] 28306567897 20 MG Orally Active 1 tablet Calcium Once a day Lovenox ND 19780983473 80 MG/0.8ML Sep 12, Active as directed Subcutaneous 2017 bid Ferrous Sulfate [facility] 13719486180 325 (65 Fe) MG Active 1 tablet Orally twice a day (bid) Ondansetron [facility] 64728221299 4 MG Orally Active 1 tablet on every 8 hrs the tongue and allow to dissolve Cholestyramine [facility] 41958193017 4 GM Orally Active 1 packet Twice a day mixed with water or non-carbonate d drink Results No Known Results Summary Purpose eClinicalWorks Submission
--- OUTSIDE RECORDS SUMMARY | 2019-05-25 23:21 | XMS REPORT ---
:1965 Author Organization eClinicalWorks Care Team Providers Name Role Phone Roxanne Pantoja Provider Role Unavailable Allergies, Adverse Reactions, Alerts Substance Reaction Event Type Adhesive Bandages Info Not Available Drug Allergy Keflex abdomen pain Drug Allergy Doxycycline Hyclate abdomen pain Drug Allergy Dilaudid hallucinations Drug Allergy Problems Problem Type Condition Code Onset Dates Condition Status Assessment Gastroesophageal reflux disease, K21.9 Active esophagitis presence not specified Assessment Other and unspecified E78.5 Active hyperlipidemia Assessment Depression, unspecified depression F32.9 Active type Assessment PE (pulmonary embolism) I26.99 Active Assessment Acquired hypothyroidism E03.9 Active Assessment Low back pain M54.5 Active Assessment Encntr for general adult medical Z00.00 Active exam w/o abnormal findings Assessment Type 2 diabetes mellitus with E11.65 Active hyperglycemia, without long-term current use of insulin Problem PE (pulmonary embolism) I26.99 Active Problem [...] Problem Benign essential hypertension I10 Active Assessment Anemia, unspecified type D64.9 Active Problem Celiac disease K90.0 Active Problem Primary insomnia F51.01 Active Assessment Cirrhosis of liver without ascites, K74.60 Active unspecified hepatic cirrhosis type Problem Abnormal mammogram R92.8 Active Assessment TANIA (obstructive sleep apnea) G47.33 Active Problem Hepatic steatosis K76.0 Active Assessment Irritable bowel syndrome with both K58.2 Active constipation and diarrhea Problem TANIA (obstructive sleep apnea) G47.33 Active Assessment Celiac disease K90.0 Active Problem 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 Active Assessment Vitamin D deficiency E55.9 Active Problem Gastroesophageal reflux disease, K21.9 Active esophagitis presence not specified Assessment Benign essential hypertension I10 Active Problem Other and unspecified E78.5 Active hyperlipidemia Assessment Chronic anticoagulation Z79.01 Active Problem Diverticulosis of large intestine K57.30 Active without hemorrhage Assessment Diverticulosis of large intestine K57.30 Active without hemorrhage Problem Acquired hypothyroidism E03.9 Active Assessment Osteopenia of multiple sites M85.89 Active Problem Other chronic pain G89.29 Active Assessment Primary insomnia F51.01 Active Problem Low back pain M54.5 Active Problem Depression, unspecified depression F32.9 Active type Problem Type 2 diabetes mellitus with E11.65 Active hyperglycemia, without long-term current use of insulin Medications Medication Code Code Instructions Start End Status Dosage System Date Date Gabapentin ND 54624822169 300 MG Orally Active 1 capsule TID Atorvastatin ND 35536699738 40 MG Orally Active 1 tablet Calcium Once a day Sucralfate ND 27284954436 1 GM Orally Active 1 tablet at Twice a day bedtime on an empty stomach before meals Ondansetron ND 20186601325 4 MG Orally Active 1 tablet on every 8 hrs the tongue and allow to dissolve Pantoprazole ND 25534210982 40 mg Orally Active 1 tablet Sodium twice a day (bid) Promethazine HCl [facility] 36783066596 12.5 MG Orally Active 1 tablet every 6 hrs Albuterol [facility] 22448048907 108 (90 Base) Active 2 puffs as Sulfate HFA MCG/ACT needed Inhalation every 6 hrs PRN Nystatin ND 01088792625 226590 UNIT/GM Active 1 application Externally to affected Twice a day, area may discontinue 48 hours after rash has resolved Levothyroxine ND 01152746320 125 MCG Active TAKE 1 TABLET Sodium BY MOUTH ONCE A DAY ON AN EMPTY STOMACH 30 MINUTES BEFORE FIRST MEAL Hyoscyamine [facility] [address]-11 0.375 MG Active 2 tablet as Sulfate Orally every needed 12 hrs Warfarin Sodium ND 41593562852 3 MG Orally Active 1 tablet sun, tues, thurs, sat ProAir HFA ND 51533123694 108 (90 Base) Active 2 puffs as MCG/ACT needed Inhalation every 6 hrs Lovenox ND 64846955311 80 MG/0.8ML Sep 12, Active as directed Subcutaneous 2018 BID, begin 5 days before procedure, stop 24 hours before procedure, restart day after procedure Benzonatate ND 32133422463 200 MG Orally Active 1 capsule Three times a day Triamcinolone ND 28164996270 0.1 % Nov 01, Active 1 application Acetonide Externally 2019 to affected Twice a day area PRN Tramadol HCl [facility] [address]-47 50 mg Q8 PRN Active as directed Ferrous Sulfate [facility] 08308521304 325 (65 Fe) MG Active 1 tablet Orally twice a day (bid) Vitamin D [facility] 05453946618 26410 UNIT Nov 01Jul Active 1 capsule (Ergocalciferol) Orally once a 2019 2018 Duloxetine HCl [facility] 98447729667 60 MG Orally Nov 21, Active 1 capsule daily 2018 Carvedilol [facility] 22403443894 6.25 MG Active take 1 tablet by mouth twice daily with food Vitamin C [facility] 69170804006 500 MG Orally Active as directed Warfarin Sodium ND 94691125116 4 mg Orally Nov 21, Active 1 tablet wed, , wed Polyethylene [facility] 00463917331 - Oral Active EVERY DAY Glycol 3350 DIRECTED Pioglitazone HCl [facility] 70680580049 30 mg Orally Active 1 tablet Once a day Vital Signs Date/Time: January 17, 2019 BMI 43.56 Index Weight 274 lbs Height 66.5 in Cardiac Monitoring Heart Rate 81 /min Blood Pressure Diastolic 70 mm Hg Blood Pressure Systolic 112 mm Hg Results Name Result Date Reference Range Unit Abnormality Flag Chest 2 views- Xray EKG PROTHROMBIN TIME-INR ----INR 2.1 20190117 ----PT 26.0 20190117 Summary Purpose eClinicalWorks Submission
--- OUTSIDE RECORDS SUMMARY | 2019-05-25 23:21 | XMS REPORT ---
:1965 Author Organization eClinicalWorks Care Team Providers Name Role Phone Adelina Pantojanda Provider Role Unavailable Allergies No Known Allergies Problems Problem Type Condition Code Onset Dates Condition Status Problem Vitamin D deficiency E55.9 Active Problem Other chronic pain G89.29 Active Problem Type 2 diabetes mellitus with E11.65 Active hyperglycemia, without long-term current use of insulin Problem Hepatic steatosis K76.0 Active Problem Primary insomnia F51.01 Active Problem Cirrhosis of liver without ascites, K74.60 Active unspecified hepatic cirrhosis type Problem Memory loss R41.3 Active Problem BMI 40.0-44.9, adult Z68.41 Active Problem Low back pain M54.5 Active Problem Anemia, unspecified type D64.9 Active Problem Osteopenia of multiple sites M85.89 Active Problem PE (pulmonary embolism) I26.99 Active Problem DVT (deep venous thrombosis) I82.409 Active Problem Benign essential hypertension I10 Active Problem Chronic anticoagulation Z79.01 Active Problem Depression, unspecified depression F32.9 Active type Problem Diverticulosis of large intestine K57.30 Active without hemorrhage Problem Vertigo R42 Active Problem Acquired hypothyroidism E03.9 Active Problem Other and unspecified E78.5 Active hyperlipidemia Problem Gastroesophageal reflux disease, K21.9 Active esophagitis presence not specified Medications No Known Medications Results No Known Results Summary Purpose eClinicalWorks Submission
--- OUTSIDE RECORDS SUMMARY | 2019-05-25 23:21 | XMS REPORT ---
[...] Medications Results No Known Results Summary Purpose [employer] Submission
--- OUTSIDE RECORDS SUMMARY | 2019-05-25 23:21 | XMS REPORT ---
:1965 Author Organization eClinicalWorks Care Team Providers Name Role Phone Roxanne Pantoja Provider Role Unavailable Allergies, Adverse Reactions, Alerts Substance Reaction Event Type Adhesive Bandages Info Not Available Drug Allergy Keflex abdomen pain Drug Allergy Doxycycline Hyclate abdomen pain Drug Allergy Dilaudid hallucinations Drug Allergy Problems Problem Type Condition Code Onset Dates Condition Status Assessment Memory loss R41.3 Active Assessment Depression, unspecified depression F32.9 Active type Assessment Hepatic steatosis K76.0 Active Problem Acquired hypothyroidism E03.9 Active Assessment Cirrhosis of liver without ascites, K74.60 Active unspecified hepatic cirrhosis type Problem Gastroesophageal reflux disease, K21.9 Active esophagitis presence not specified Assessment Type 2 diabetes mellitus with E11.65 Active hyperglycemia, without long-term current use of insulin Problem Vitamin D deficiency E55.9 Active Problem Other chronic pain G89.29 Active Problem Type 2 diabetes mellitus with E11.65 Active hyperglycemia, without long-term current use of insulin Problem Hepatic steatosis K76.0 Active Problem Cirrhosis of liver without ascites, K74.60 Active unspecified hepatic cirrhosis type Problem Primary insomnia F51.01 Active Assessment Benign essential hypertension I10 Active Problem Memory loss R41.3 Active Assessment Chronic anticoagulation Z79.01 Active Problem [...] without hemorrhage Problem Vertigo R42 Active Problem Other and unspecified E78.5 Active hyperlipidemia Medications Medication Code Code Instructions Start End Status Dosage System Date Date Byetta 5 MCG Pen NDC 79033478013 5 MCG/0.02ML March Active as Subcutaneous 28, 28, directed twice a day 2017 2017 (bid) Byetta 10 MCG Pen NDC 48954014711 10 MCG/0.04ML March Active as Subcutaneous , , directed twice a day 2017 2017 (bid) Zofran [facility] 05536277575 4 mg Orally Q8 January Active 1-2 PRN 20, tablets 2017 Pantoprazole [facility] 14381424349 40 MG Orally December Active 1 tablet Sodium Once a day 2016 Warfarin Sodium [facility] [address]-24 4 Active TAKE 1 TABLET BY MOUTH ONCE A DAY DIRECTED Hyoscyamine [facility] 98653899431 0.125 MG Active 1 tablet Sulfate Orally every 4 as needed hrs Coumadin [facility] 44243992588 5 MG Orally Active 1 tablet Once a day Victoza [facility] 53493576282 18 MG/3ML March Inactive as Subcutaneous 1.2 mg SC 2017 daily Atorvastatin [facility] 61218403984 40 mg Orally February 22, Active 1 tablet Calcium Once a day 2017 Lisinopril [facility] 88186642594 5 MG Active TAKE 1 TABLET BY MOUTH EVERY DAY Carvedilol [facility] 18897153396 6.25 MG Active take 1 tablet by mouth twice daily with food Levothyroxine [facility] 98469480130 125 MCG Active TAKE 1 Sodium TABLET BY MOUTH ONCE A DAY ON AN EMPTY STOMACH 30 MINUTES BEFORE FIRST MEAL Pantoprazole [facility] 96997629401 40 mg Orally Active 1 tablet Sodium twice a day (bid) Sucralfate [facility] 85543646903 1 GM Orally Active 1 tablet Twice a day at bedtime on an empty stomach before meals Metformin HCl [facility] 72701505577 500 MG Inactive TAKE 2 TABLETS BY MOUTH TWICE A DAY WITH MEALS Flexeril [facility] 73068224536 10 MG Active TAKE 1/2 TO 1 TABLET BY MOUTH EVERY 8 HOURS NEEDED Cholestyramine [facility] 57845506766 4 GM/DOSE Active 1 scoop Orally daily Dicyclomine HCl [facility] 57833084386 10 mg Orally Active 1 ml Four times a day Rosuvastatin [facility] 90512163069 20 mg Orally Active 1 tablet Calcium Once a day J70-Vhkaxx [facility] 63946401395 1 MG Orally Active not defined Ferrous Sulfate [facility] 85618062080 325 (65 Fe) MG Active 1 tablet Orally twice a day (bid) Sertraline HCl [facility] 85986714452 100 MG Active TAKE 1 TABLET BY MOUTH EVERY DAY Novofine 31 ND 0 31G X 6 MM as Jul 16, Active as directed daily 2016 directed with use of Victoza Ergocalciferol [facility] 10240898599 92684 UNIT January Active 1 capsule Orally once 17, 14, per week 2017 2017 Ondansetron [facility] 78894511472 4 MG Orally Active 1 tablet every 8 hrs on the tongue and allow to dissolve Vital Signs Date/Time: April 07, 2018 BMI 39.90 Index Weight 251 lbs Height 66.5 in Cardiac Monitoring Heart Rate 93 /min Blood Pressure Diastolic 62 mm Hg Blood Pressure Systolic 110 mm Hg Results No Known Results Summary Purpose eClinicalWorks Submission
--- OUTSIDE RECORDS SUMMARY | 2019-05-25 23:22 | XMS REPORT ---
[...] Medications Results No Known Results Summary Purpose [employer] Submission
--- OUTSIDE RECORDS SUMMARY | 2019-05-25 23:22 | XMS REPORT ---
:1965 Author Organization eClinicalWorks Care Team Providers Name Role Phone Roxanne Pantoja Provider Role Unavailable Allergies, Adverse Reactions, Alerts Substance Reaction Event Type Adhesive Bandages Info Not Available Drug Allergy Keflex abdomen pain Drug Allergy Doxycycline Hyclate abdomen pain Drug Allergy Dilaudid hallucinations Drug Allergy Problems Problem Type Condition Code Onset Dates Condition Status Assessment 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 Active Assessment Chronic anticoagulation Z79.01 Active Assessment Other and unspecified E78.5 Active hyperlipidemia Assessment Cirrhosis of liver without ascites, K74.60 Active unspecified hepatic cirrhosis type Assessment Type 2 diabetes mellitus with E11.65 [...] Start End Status Dosage System Date Date Ondansetron [facility] 84006528800 4 MG Orally Active 1 tablet on every 8 hrs the tongue and allow to dissolve Sucralfate [facility] 21537126753 1 GM Orally Active 1 tablet at Twice a day bedtime on an empty stomach before meals Tramadol HCl [facility] [address]-26 50 mg Q8 PRN Active as directed Levothyroxine [facility] 60130801056 125 MCG Active TAKE 1 Sodium TABLET BY MOUTH ONCE A DAY ON AN EMPTY STOMACH 30 MINUTES BEFORE FIRST MEAL Albuterol [facility] 49247437647 108 (90 Base) Active 2 puffs as Sulfate HFA MCG/ACT needed Inhalation every 6 hrs PRN Toujeo SoloStar [facility] 77680721781 300 UNIT/ML Inactive as directed Subcutaneous 50 units once nightly Duloxetine HCl [facility] 67282416826 60 MG Orally Nov 21, Active 1 capsule daily 2019 Vitamin D [facility] [id number] 92389 UNIT Nov 01, Active 1 capsule (Ergocalciferol Orally once a 2018 ) week Gabapentin [facility] 61749248226 300 MG Orally Active 1 capsule TID ProAir HFA [facility] 94859241820 108 (90 Base) Active 2 puffs as MCG/ACT needed Inhalation every 6 hrs Triamcinolone [facility] 81167567641 0.1 % Nov 01, Active 1 Acetonide Externally 2019 application Twice a day to affected PRN area Lovenox [facility] 21428231513 80 MG/0.8ML Sep 12, Active as directed Subcutaneous 2017 bid Carvedilol [facility] 00004591464 6.25 MG Active take 1 tablet by mouth twice daily with food Pioglitazone [facility] 96570749396 30 mg Orally Active 1 tablet HCl Once a day Hyoscyamine [facility] [address]-73 0.375 MG Active 2 tablet as Sulfate Orally every needed 12 hrs Ferrous Sulfate [facility] 34707654638 325 (65 Fe) MG Active 1 tablet Orally twice a day (bid) [place]etta 10 MCG [facility] 59474146964 10 MCG/0.04ML March Inactive as directed Pen Subcutaneous , twice a day 2017 2018 (bid) Warfarin Sodium [facility] [address]-34 4 mg Orally Nov 21, Active 1 tablet wed, , wed Atorvastatin [facility] 60622101940 40 MG Orally Active 1 tablet Calcium Once a day Benzonatate [facility] 73972822775 200 MG Orally Active 1 capsule Three times a day Promethazine [facility] 25271185535 12.5 MG Orally Active 1 tablet HCl every 6 hrs Warfarin Sodium [facility] [address]-24 3 MG Orally Active 1 tablet sun, tues, thurs, sat Nystatin [facility] 78832668737 098119 UNIT/GM Active 1 Externally application Twice a day, to affected may area discontinue 48 hours after rash has resolved Pantoprazole [facility] 15181415793 40 mg Orally Active 1 tablet Sodium twice a day (bid) Vitamin C [facility] 52460078160 500 MG Orally Active as directed Polyethylene [facility] 16477891888 - Oral Active EVERY DAY Glycol 3350 DIRECTED Vital Signs Date/Time: December 19, 2018 Blood Pressure Diastolic 64 mm Hg Blood Pressure Systolic 118 mm Hg Height 66.5 in Cardiac Monitoring Heart Rate 75 /min Results Name Result Date Reference Range Unit Abnormality Flag PROTHROMBIN TIME-INR ----PT 35.0 [id number] ----INR 2.8 [id number] Summary Purpose eClinicalWorks Submission
--- OUTSIDE RECORDS SUMMARY | 2019-05-25 23:22 | XMS REPORT ---
[...] Condition Status Problem Acquired hypothyroidism E03.9 Active Assessment Type 2 diabetes mellitus with E11.65 Active hyperglycemia, without long-term current use of insulin Problem Gastroesophageal reflux disease, K21.9 Active esophagitis presence not specified Assessment Chronic anticoagulation Z79.01 Active Problem Vitamin D deficiency E55.9 Active Problem Other chronic pain G89.29 Active Problem Type 2 diabetes mellitus with E11.65 Active hyperglycemia, without long-term current use of insulin Problem Hepatic steatosis K76.0 Active Problem Cirrhosis of liver without ascites, K74.60 Active unspecified hepatic cirrhosis type Problem Primary insomnia F51.01 Active Assessment Rash R21 Active Problem Memory loss R41.3 Active Assessment Benign essential hypertension I10 Active Problem BMI 40.0-44.9, adult Z68.41 Active [...] Instructions Start End Status Dosage System Date Hyoscyamine [facility] 13209277265 0.125 MG Active 1 tablet as Sulfate Orally every 4 needed hrs Ergocalciferol [facility] 39468458690 37280 UNIT January Active 1 capsule Orally once 17, 14, per week 2017 2017 Rosuvastatin ND 97561915692 20 mg Orally Active 1 tablet Calcium Once a day Cholestyramine ND 02491949197 4 GM/DOSE Active 1 scoop Orally daily Ondansetron [facility] 74466568320 4 MG Orally Active 1 tablet on every 8 hrs the tongue and allow to dissolve Sertraline HCl [facility] 62304532061 100 MG Active TAKE 1 TABLET BY MOUTH EVERY DAY Carvedilol [facility] 85132431403 6.25 MG Active take 1 tablet by mouth twice daily with food Byetta 5 MCG Pen [facility] 30093709761 5 MCG/0.02ML March Active as directed Subcutaneous 28, 28, twice a day 2017 2017 (bid) Pantoprazole [facility] 19764443835 40 mg Orally Active 1 tablet Sodium twice a day (bid) Byetta 10 MCG Pen [facility] 05229913398 10 MCG/0.04ML March Active as directed Subcutaneous , , twice a day 2017 2017 (bid) Nystatin [facility] 32372944819 784612 UNIT/GM April Active 1 application Externally 24, 23, to affected Twice a day, 2017 2017 area may discontinue 48 hours after rash has resolved Lovenox [facility] 91748684203 80 MG/0.8ML January Active as directed Subcutaneous 17, inject SC BID 2017 5 days before surgery and discontinue 24 hours before procedure Ferrous Sulfate [facility] 75788505101 325 (65 Fe) MG Active 1 tablet Orally twice a day (bid) Novofine 31 ND 0 31G X 6 MM as Jul 16, Active as directed directed daily 2016 with use of Victoza C54-Kxgpdn [facility] 99747289686 1 MG Orally Active not defined Warfarin Sodium [facility] [address]-23 4 Active take 1 tablet by mouth once a day as directed Lisinopril [facility] 45460824446 5 MG Active TAKE 1 TABLET BY MOUTH EVERY DAY Levothyroxine [facility] 65303273116 125 MCG Active TAKE 1 TABLET Sodium BY MOUTH ONCE A DAY ON AN EMPTY STOMACH 30 MINUTES BEFORE FIRST MEAL Sucralfate [facility] 76021954282 1 GM Orally Active 1 tablet at Twice a day bedtime on an empty stomach before meals Victoza [facility] [address]-64 18 MG/3ML Active 1.8 mg Subcutaneous once a day Vital Signs Date/Time: May 03, 2018 BMI 39.74 Index Weight 250 lbs Height 66.5 in Cardiac Monitoring Heart Rate 87 /min Blood Pressure Diastolic 70 mm Hg Blood Pressure Systolic 120 mm Hg Results Name Result Date Reference Range Unit Abnormality Flag PROTHROMBIN TIME-INR ----PT 28.1 [id number] ----INR 2.3 [id number] Summary Purpose eClinicalWorks Submission
--- OUTSIDE RECORDS SUMMARY | 2019-05-25 23:22 | XMS REPORT ---
:1965 Author Organization eClinicalWorks Care Team Providers Name Role Phone Roxanne Pantoja Provider Role Unavailable Allergies, Adverse Reactions, Alerts Substance Reaction Event Type Adhesive Bandages Info Not Available Drug Allergy Keflex abdomen pain Drug Allergy Doxycycline Hyclate abdomen pain Drug Allergy Dilaudid hallucinations Drug Allergy Problems Problem Type Condition Code Onset Dates Condition Status Assessment Vitamin D deficiency E55.9 Active Assessment Cirrhosis of liver without ascites, K74.60 Active unspecified hepatic cirrhosis type Assessment Depression, unspecified depression F32.9 Active type Problem Acquired hypothyroidism E03.9 Active Assessment Memory loss R41.3 Active Problem Gastroesophageal reflux disease, K21.9 Active [...] type Problem Primary insomnia F51.01 Active Assessment Chronic anticoagulation Z79.01 Active Problem Memory loss R41.3 Active Assessment [...] Status Dosage System Date Date Ergocalciferol [facility] 56786899447 47703 UNIT January Active 1 capsule Orally once 17, 14, per week 2017 2017 Carvedilol [facility] 03030561135 6.25 MG Active take 1 tablet by mouth twice daily with food Pantoprazole [facility] 18128678190 40 mg Orally Active 1 tablet Sodium twice a day (bid) Byetta 10 MCG Pen [facility] 70475822910 10 MCG/0.04ML March Active as Subcutaneous , , directed twice a day 2017 2017 (bid) Levothyroxine [facility] 52370112181 125 MCG Active TAKE 1 Sodium TABLET BY MOUTH ONCE A DAY ON AN EMPTY STOMACH 30 MINUTES BEFORE FIRST MEAL F33-Nltiox [facility] 69008070887 1 MG Orally Active not defined Byetta 5 MCG Pen [facility] 15503532618 5 MCG/0.02ML March Active as Subcutaneous , directed twice a day 2017 2017 (bid) Sertraline HCl [facility] 55276002173 100 MG Active TAKE 1 TABLET BY MOUTH EVERY DAY Ondansetron [facility] 71769538912 4 MG Orally Active 1 tablet every 8 hrs on the tongue and allow to dissolve Victoza [facility] [address]-92 18 MG/3ML Active 1.8 mg Subcutaneous once a day Rosuvastatin [facility] 21622937719 20 mg Orally Active 1 tablet Calcium Once a day Coumadin [facility] 10276953681 5 MG Orally Inactive 1 tablet Once a day Novofine [address] [facility] 0 31G X 6 MM as Jul 16, Active as directed daily 2016 directed with use of Victoza Lisinopril [facility] 66821951985 5 MG Active TAKE 1 TABLET BY MOUTH EVERY DAY Sucralfate [facility] 96526883723 1 GM Orally Active 1 tablet Twice a day at bedtime on an empty stomach before meals Ferrous Sulfate [facility] 02591864591 325 (65 Fe) MG Active 1 tablet Orally twice a day (bid) Warfarin Sodium [facility] [address]-71 4 Active take 1 tablet by mouth once a day as directed Hyoscyamine [facility] 46829541164 0.125 MG Active 1 tablet Sulfate Orally every 4 as needed hrs Cholestyramine [facility] 41360630835 4 GM/DOSE Active 1 scoop Orally daily Vital Signs Date/Time: April 19, 2018 BMI 39.27 Index Weight 247 lbs Height 66.5 in Temperature 98.9 F Cardiac Monitoring Heart Rate 94 /min Blood Pressure Diastolic 70 mm Hg Blood Pressure Systolic 115 mm Hg Results Name Result Date Reference Range Unit Abnormality Flag MICROALBUMIN, RANDOM URINE (W/CREATININE) ----CREATININE, RANDOM 269 [id number] 20-320 mg/dL N URINE ----MICROALBUMIN 1.7 [id number] See Note: mg/dL N ----MICROALBUMIN/CREATI 6 [id number] <30 mcg/mg creat N NINE RATIO, RANDOM URINE Summary Purpose eClinicalWorks Submission
--- OUTSIDE RECORDS SUMMARY | 2019-05-25 23:22 | XMS REPORT ---
[...] K74.60 Active unspecified hepatic cirrhosis type Assessment Chronic anticoagulation Z79.01 Active Problem Memory loss R41.3 Active Problem BMI [...] End Date Status Dosage System Date Lovenox [facility] 94512491531 80 MG/0.8ML January 25, Active as directed Subcutaneous 2018 inject SC BID 5 days before surgery and discontinue 24 hours before procedure Results No Known Results Summary Purpose [employer] Submission
--- OUTSIDE RECORDS SUMMARY | 2019-05-25 23:23 | XMS REPORT ---
[...] cirrhosis type Assessment Chronic anticoagulation Z79.01 Active Assessment Yeast vaginitis B37.3 Active Problem Memory loss R41.3 Active Problem [...] Status Dosage System Date Date Hyoscyamine [facility] 61109102751 0.125 MG Orally Active 1 tablet Sulfate every 4 hrs as needed before meals Pantoprazole ND 82011239105 40 mg Orally Active 1 tablet Sodium twice a day (bid) Atorvastatin ND 07312811943 40 mg Orally Active 1 tablet Calcium Once a day Levothyroxine ND 54931383283 125 MCG Active TAKE 1 Sodium TABLET BY MOUTH ONCE A DAY ON AN EMPTY STOMACH 30 MINUTES BEFORE FIRST MEAL Hyoscyamine ND 81934036026 0.375 MG Orally Active 1 tablet Sulfate CR every 12 hrs Warfarin Sodium ND 57811147410 3 MG Orally Jun 03, Active 1 tablet Once a day as 2017 directed Farxiga ND 63434497330 10 mg Orally Jun 07Aug Active 1 tablet Once a day 2017 Ergocalciferol [facility] 97809704890 59917 UNIT January Active 1 capsule Orally once per 17, 14, week 2017 2017 Novofine 31 ND 0 31G X 6 MM as Jul 16, Active as directed daily 2016 directed with use of Victoza Sertraline HCl [facility] 89684285750 100 MG Active TAKE 1 TABLET BY MOUTH EVERY DAY Michael Miramontes ND 93216009969 300 UNIT/ML Jun 07, Active as Subcutaneous 2017 directed units once nightly Warfarin Sodium ND 03173867407 4 mg Orally qd May 18, Active 1 tablet as directed 2017 Ondansetron ND 72258492316 4 MG Orally Active 1 tablet every 8 hrs on the tongue and allow to dissolve [place]etta 10 MCG Pen ND 92583973157 10 MCG/0.04ML March Active as Subcutaneous , directed twice a day 2017 2017 (bid) Warfarin Sodium [facility] [address]-59 4 Active take 1 tablet by mouth once a day as directed Ferrous Sulfate [facility] 10717234377 325 (65 Fe) MG Active 1 tablet Orally twice a day (bid) Cholestyramine [facility] 82888992175 4 GM/DOSE Active 1 scoop Orally daily Sucralfate ND 24843770895 1 GM Orally Active 1 tablet Twice a day at bedtime on an empty stomach before meals Lisinopril [facility] 45823354699 5 MG Active TAKE 1 TABLET BY MOUTH EVERY DAY Fluconazole ND 04431062819 150 MG Orally 1 Jun Active 1 tablet tablet PO QD x , 07, 1, repeat in 2 2017 2017 days if still symptomatic Nystatin & NDC 0 675677 UNIT/GM Active not Exfoliating Agent Externally defined Carvedilol ND 86193150830 6.25 MG Active take 1 tablet by mouth twice daily with food Iron [facility] 51300570216 325 (65 Fe) MG Active 1 tablet Orally Once a day E01-Bqtkhg [facility] 79201273452 1 MG Orally Active not defined Results Name Result Date Reference Range Unit Abnormality Flag PROTHROMBIN TIME-INR ----PT 37.5 [id number] ----INR 3.1 [id number] Summary Purpose eClinicalWorks Submission
--- OUTSIDE RECORDS SUMMARY | 2019-05-25 23:23 | XMS REPORT ---
[...] R42 Active Problem Acquired hypothyroidism E03.9 Active Assessment Chronic anticoagulation Z79.01 Active Problem Other and unspecified E78.5 Active hyperlipidemia Problem Gastroesophageal reflux disease, K21.9 Active esophagitis presence not specified Medications Medication Code Code Instructions Start End Status Dosage System Date Date Byetta 10 MCG Pen [facility] 97194249446 10 MCG/0.04ML March Active as Subcutaneous , directed twice a day 2017 2017 (bid) Iron ND 69319466174 325 (65 Fe) MG Active 1 tablet Orally Once a day Warfarin Sodium ND 01423132658 3 MG Orally Jun 03, Active 1 tablet Once a day as 2018 directed Ergocalciferol [facility] 49105393762 61624 UNIT January Active 1 capsule Orally once per 17, 14, week 2017 2017 Hyoscyamine [facility] 84268826530 0.375 MG Orally Active 1 tablet Sulfate CR every 12 hrs Cholestyramine [facility] [address]-69 4 GM/DOSE Active 1 scoop Orally daily Ondansetron ND 82094919399 4 MG Orally Active 1 tablet every 8 hrs on the tongue and allow to dissolve Levothyroxine [facility] 99002861709 125 MCG Active TAKE 1 Sodium TABLET BY MOUTH ONCE A DAY ON AN EMPTY STOMACH 30 MINUTES BEFORE FIRST MEAL Warfarin Sodium ND 11652030139 4 mg Orally qd May 18, Active 1 tablet as directed 2017 Sertraline HCl [facility] 33551674698 100 MG Active TAKE 1 TABLET BY MOUTH EVERY DAY Nystatin & NDC 0 299374 UNIT/GM Active not Exfoliating Agent Externally defined Pantoprazole ND 60777801792 40 mg Orally Active 1 tablet Sodium twice a day (bid) Sucralfate ND 92334391663 1 GM Orally Active 1 tablet Twice a day at bedtime on an empty stomach before meals Novofine 31 NDC 0 31G X 6 MM as Jul 16, Active as directed daily 2016 directed with use of Victoza Carvedilol [facility] 82027308923 6.25 MG Active take 1 tablet by mouth twice daily with food Michael Miramontes ND 70289875850 300 UNIT/ML Jun 07, Active as Subcutaneous 2017 directed units once nightly Farxiga [facility] 79913429698 10 mg Orally Jun 07Aug Active 1 tablet Once a day 2017 Ferrous Sulfate [facility] 27025491120 325 (65 Fe) MG Active 1 tablet Orally twice a day (bid) Hyoscyamine [facility] 48645162396 0.125 MG Orally Active 1 tablet Sulfate every 4 hrs as needed before meals Lisinopril ND 88478485798 5 MG Active TAKE 1 TABLET BY MOUTH EVERY DAY Atorvastatin ND 66301647078 40 mg Orally Active 1 tablet Calcium Once a day V20-Sfduno [facility] 01696942093 1 MG Orally Active not defined Warfarin Sodium [facility] [address]-35 4 Active take 1 tablet by mouth once a day as directed Vital Signs Date/Time: Jun 07, 2018 BMI 39.11 Index Weight 246 lbs Height 66.5 in Cardiac Monitoring Heart Rate 82 /min Blood Pressure Diastolic 66 mm Hg Blood Pressure Systolic 118 mm Hg Results Name Result Date Reference Range Unit Abnormality Flag GLUCOSE FINGER STICK ----GLUCOSE 399 [id number] Summary Purpose eClinicalWorks Submission
--- OUTSIDE RECORDS SUMMARY | 2019-05-25 23:23 | XMS REPORT ---
[...] type Assessment Chronic anticoagulation Z79.01 Active Assessment Type 2 diabetes mellitus with E11.65 Active hyperglycemia, without long-term current use of insulin Problem Memory loss R41.3 Active Problem BMI [...] Start End Status Dosage System Date Date J16-Lzdqul [facility] 14432681365 1 MG Orally Active not defined Cholestyramine ND 87203841340 4 GM/DOSE Active 1 scoop Orally daily Sucralfate ND 65709394394 1 GM Orally Active 1 tablet Twice a day at bedtime on an empty stomach before meals Sertraline HCl [facility] 76955575313 100 MG Active TAKE 1 TABLET BY MOUTH EVERY DAY Levothyroxine ND 31930765420 125 MCG Active TAKE 1 Sodium TABLET BY MOUTH ONCE A DAY ON AN EMPTY STOMACH 30 MINUTES BEFORE FIRST MEAL Warfarin Sodium ND 93634572615 3 MG Orally Jun 03, Active 1 tablet Once a day as 2017 directed Ferrous Sulfate [facility] 37587063212 325 (65 Fe) MG Active 1 tablet Orally twice a day (bid) Novofine 31 ND 0 31G X 6 MM as Jul 16, Active as directed daily 2016 directed with use of Victoza Pantoprazole [facility] [address]-57 40 mg Orally Active 1 tablet Sodium twice a day (bid) Lovenox [facility] 05247748678 80 MG/0.8ML January Active as Subcutaneous , directed inject SC BID 5 2017 days before surgery and discontinue 24 hours before procedure Lisinopril [facility] 19416660142 5 MG Active TAKE 1 TABLET BY MOUTH EVERY DAY Warfarin Sodium [facility] 06775386164 4 mg Orally qd May 18, Active 1 tablet as directed 2017 Victoza [facility] [address]-96 18 MG/3ML Active 1.8 mg Subcutaneous once a day Ondansetron [facility] 24565598780 4 MG Orally Active 1 tablet every 8 hrs on the tongue and allow to dissolve Rosuvastatin [facility] 36715510494 20 mg Orally Active 1 tablet Calcium Once a day Hyoscyamine [facility] [address]-15 0.125 MG Orally Active 1 tablet Sulfate every 4 hrs as needed before meals Carvedilol [facility] 88123132039 6.25 MG Active take 1 tablet by mouth twice daily with food Warfarin Sodium [facility] [address]-84 4 Active take 1 tablet by mouth once a day as directed Byetta 5 MCG Pen [facility] 25915047703 5 MCG/0.02ML Active as Subcutaneous directed twice a day (bid) Hyoscyamine [facility] 10909178946 0.375 MG Orally Active 1 tablet Sulfate CR every 12 hrs [place]etta 10 MCG Pen [facility] 97781972002 10 MCG/0.04ML March Active as Subcutaneous , directed twice a day 2017 2017 (bid) Atorvastatin [facility] 21107764625 40 mg Orally Active 1 tablet Calcium Once a day Ergocalciferol [facility] 17978347399 20793 UNIT January Active 1 capsule Orally once per 17, 14, week 2017 2017 Vital Signs Date/Time: Jun 03, 2018 BMI 39.74 Index Weight 250 lbs Height 66.5 in Results No Known Results Summary Purpose eClinicalWorks Submission
--- OUTSIDE RECORDS SUMMARY | 2019-05-25 23:23 | XMS REPORT ---
[...] Medications Results No Known Results Summary Purpose [employer] Submission
--- OUTSIDE RECORDS SUMMARY | 2019-05-25 23:23 | XMS REPORT ---
:1965 Author Organization eClinicalWorks Care Team Providers Name Role Phone Madelaine Garcia Provider Role Unavailable Allergies No Known Allergies Problems Problem Type Condition Code Onset Dates Condition Status Problem Low back pain M54.5 Active Problem Osteopenia of multiple sites M85.89 Active Problem BMI 40.0-44.9, adult Z68.41 Active Problem 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 Active Problem DVT (deep venous thrombosis) I82.409 Active Problem Abnormal mammogram R92.8 Active Problem Chronic anticoagulation Z79.01 Active Problem Benign essential hypertension I10 Active Problem TANIA (obstructive sleep apnea) G47.33 Active Problem Hepatic steatosis K76.0 Active Problem [...] insulin Problem Primary insomnia F51.01 Active Problem Gastroesophageal reflux disease, K21.9 Active esophagitis presence not specified Problem Other chronic pain G89.29 Active Medications No Known Medications Results No Known Results Summary Purpose eClinicalWorks Submission
--- OUTSIDE RECORDS SUMMARY | 2019-05-25 23:23 | XMS REPORT ---
[...] Medications Results No Known Results Summary Purpose [employer] Submission
--- OUTSIDE RECORDS SUMMARY | 2019-05-25 23:24 | XMS REPORT ---
[...] K74.60 Active unspecified hepatic cirrhosis type Assessment PE (pulmonary embolism) I26.99 Active Problem Memory loss R41.3 Active Problem [...] Start End Status Dosage System Date Date T41-Msxzzt [facility] 28000113058 1 MG Orally Active not defined Ergocalciferol [facility] 00066377316 11012 UNIT January Active 1 capsule Orally once per 17, 14, week 2017 2017 Ferrous Sulfate ND 76335210103 325 (65 Fe) MG Active 1 tablet Orally twice a day (bid) Carvedilol ND 41889267798 6.25 MG Active take 1 tablet by mouth twice daily with food Michael Miramontes ND 09141648443 300 UNIT/ML Jun 07, Active as Subcutaneous 15 2017 directed units once nightly Warfarin Sodium ND 73205051194 4 mg Orally qd May 18, Active 1 tablet as directed 2018 Sertraline HCl NDC 69143733460 100 MG Active TAKE 1 TABLET BY MOUTH EVERY DAY Nystatin & NDC 0 245839 UNIT/GM Active not Exfoliating Agent Externally defined Warfarin Sodium [facility] [address]-03 4 Active take 1 tablet by mouth once a day as directed Levothyroxine [facility] 13067081954 125 MCG Active TAKE 1 Sodium TABLET BY MOUTH ONCE A DAY ON AN EMPTY STOMACH 30 MINUTES BEFORE FIRST MEAL Farxiga [facility] 03075903910 10 mg Orally Jun 07Aug Active 1 tablet Once a day 2017 Iron [facility] 71757454273 325 (65 Fe) MG Active 1 tablet Orally Once a day Atorvastatin [facility] 80705747367 40 mg Orally Active 1 tablet Calcium Once a day Sucralfate [facility] 38686359485 1 GM Orally Active 1 tablet Twice a day at bedtime on an empty stomach before meals Cholestyramine [facility] 77160768162 4 GM/DOSE Active 1 scoop Orally daily Lisinopril [facility] 35701499361 5 MG Active TAKE 1 TABLET BY MOUTH EVERY DAY Ondansetron [facility] 66479735157 4 MG Orally Active 1 tablet every 8 hrs on the tongue and allow to dissolve Pantoprazole [facility] 43266314700 40 mg Orally Active 1 tablet Sodium twice a day (bid) Warfarin Sodium [facility] 35168861720 3 MG Orally Jun 03, Active 1 tablet Once a day as 2017 directed Novofine 31 NDC 0 31G X 6 MM as Jul 16, Active as directed daily 2016 directed with use of Victoza Hyoscyamine [facility] 18061247584 0.375 MG Orally Active 1 tablet Sulfate CR every 12 hrs Byetta 10 MCG Pen [facility] 40442797587 10 MCG/0.04ML March Active as Subcutaneous , directed twice a day 2017 2017 (bid) Hyoscyamine [facility] 52462946992 0.125 MG Orally Active 1 tablet Sulfate every 4 hrs as needed before meals Vital Signs Date/Time: Jun 29, 2018 Blood Pressure Diastolic 60 mm Hg Blood Pressure Systolic 114 mm Hg Height 66.5 in Results No Known Results Summary Purpose eClinicalWorks Submission
--- OUTSIDE RECORDS SUMMARY | 2019-05-25 23:24 | XMS REPORT ---
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 Active unspecified hepatic cirrhosis type Assessment Depression, unspecified depression F32.9 Active type Assessment Chronic anticoagulation Z79.01 Active Assessment Benign [...] Other and unspecified E78.5 Active hyperlipidemia Assessment Autoimmune hepatitis K75.4 Active Problem Depression, unspecified depression F32.9 Active [...] Start End Status Dosage System Date Date NovoLog Flexpen ND 99882065204 100 UNIT/ML March Active as directed Subcutaneous 07, 20 units at 2019 mealtimes Lovenox ND 98637860717 80 MG/0.8ML March 08, Active as directed Subcutaneous 2019 twice daily (begin 8 days prior to procedure, discontinue 24 hours before, then restart day after) Warfarin Sodium ND 57370887935 3 MG Orally Active 1 tablet Once a day as directed Spironolactone ND 63392273726 50 mg by mouth Active 1 tablet once every morning Pantoprazole ND 43284306268 40 mg Orally Active 1 tablet Sodium twice a day (bid) Nystatin ND 13571606640 199092 UNIT/GM Active 1 application Externally to affected Twice a day, area may discontinue 48 hours after rash has resolved Promethazine HCl [facility] 36944341040 12.5 MG Orally Active 1 tablet every 6 hrs Tolove Ivoryar ND 80439087825 300 UNIT/ML March Active as directed Subcutaneous 07, 60 units at 2019 night Triamcinolone ND 78481116594 0.1 % Active 1 application Acetonide Externally to affected Twice a day area PRN Hyoscyamine [facility] [address]-80 0.375 MG Active 2 tablet as Sulfate Orally every needed 12 hrs Sucralfate ND 38121375998 1 GM Orally Active 1 tablet at Twice a day bedtime on an empty stomach before meals Ondansetron ND 65627045279 4 MG Orally Active 1 tablet on every 8 hrs the tongue and allow to dissolve Polyethylene ND 93457856331 - Oral Active EVERY DAY Glycol 3350 DIRECTED Duloxetine HCl ND 65332561720 60 MG Orally Nov 21, Active 1 capsule daily 2018 Tramadol HCl [facility] [address]-01 50 mg Q8 PRN Active as directed Carvedilol [facility] 35699242382 6.25 MG Active take 1 tablet by mouth twice daily with food Ferrous Sulfate ND 56672127596 325 (65 Fe) MG Active 1 tablet Orally twice a day (bid) Pioglitazone HCl ND 84999750780 30 mg Orally Active 1 tablet Once a day Nystatin [facility] 91692861621 779158 UNIT/GM Active 1 application Externally to affected Twice a day area PRN Ursodiol [facility] 60009742761 500 mg by Active 1 tablet mouth twice a day (bid) Furosemide [facility] 30561160885 20 mg by mouth Active 1 tablet once every morning Atorvastatin [facility] 27365985112 40 MG Orally Active 1 tablet Calcium Once a day Levothyroxine [facility] 47384932720 125 MCG Active TAKE 1 TABLET Sodium BY MOUTH ONCE A DAY ON AN EMPTY STOMACH 30 MINUTES BEFORE FIRST MEAL Vitamin D [facility] 51196258352 33753 UNIT Nov 01Jul Active 1 capsule (Ergocalciferol) Orally once a 2019 , 2018 Vitamin C [facility] 34923791583 500 MG Orally Active as directed Warfarin Sodium [facility] 99829017365 4 mg Orally Nov 21, Active 1 tablet wed, , wed Gabapentin [facility] 28602523141 300 MG Orally Active 1 capsule TID ProAir HFA [facility] 46187800919 108 (90 Base) Active 2 puffs as MCG/ACT needed Inhalation every 6 hrs Vital Signs Date/Time: March 30, 2019 BMI 43.24 Index Weight 272 lbs Height 66.5 in Cardiac Monitoring Heart Rate 98 /min Blood Pressure Diastolic 64 mm Hg Blood Pressure Systolic 130 mm Hg Results Name Result Date Reference Range Unit Abnormality Flag PROTHROMBIN TIME-INR ----PT 29.2 [id number] ----INR 2.4 [id number] Summary Purpose eClinicalWorks Submission
--- OUTSIDE RECORDS SUMMARY | 2019-05-25 23:24 | XMS REPORT ---
[...] Medications Results No Known Results Summary Purpose [employer] Submission
--- OUTSIDE RECORDS SUMMARY | 2019-05-25 23:24 | XMS REPORT ---
[...] esophagitis presence not specified Medications Medication Code System Code Instructions Start End Date Status Dosage Date Fluconazole [facility] 36301721446 150 MG Orally Jul 05, Jul 08, Active 1 tablet daily 2017 2017 Results No Known Results Summary Purpose [employer] Submission
--- OUTSIDE RECORDS SUMMARY | 2019-05-25 23:24 | XMS REPORT ---
[...] Condition Status Assessment 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 Active Assessment Acute URI J06.9 Active Assessment Chronic anticoagulation Z79.01 Active Assessment Type 2 diabetes mellitus with E11.65 Active hyperglycemia, without long-term current use of insulin Assessment Vitamin D deficiency E55.9 Active Assessment Acquired hypothyroidism E03.9 Active Assessment Benign essential hypertension I10 Active Problem Depression, unspecified depression F32.9 Active type Assessment Other and unspecified E78.5 Active hyperlipidemia Problem Type 2 diabetes mellitus with E11.65 [...] Start End Status Dosage System Date Date Warfarin Sodium [facility] 93179753796 3 MG Orally Jun 03, Active 1 tablet Once a day as 2018 directed Oralia SALVADORC 81077517569 10 mg Orally Active 1 tablet Once a day Ondansetron ND 91782802343 4 MG Orally Active 1 tablet on every 8 hrs the tongue and allow to dissolve Carvedilol [facility] 78795610947 6.25 MG Active take 1 tablet by mouth twice daily with food Benzonatate ND 99110719518 200 MG Orally Sep 07Sep Active 1 capsule Q8 PRN 2017 Pioglitazone HCl ND 56465652201 30 mg Orally Sep 07, Active 1 tablet Once a day 2017 Warfarin Sodium ND 38384148590 4 mg Orally qd May 18, Active 1 tablet as directed 2017 Ferrous Sulfate ND 51089267265 325 (65 Fe) MG Active 1 tablet Orally twice a day (bid) Pantoprazole [facility] 60112356228 40 mg Orally Active 1 tablet Sodium twice a day (bid) Cholestyramine ND 13850460314 4 GM Orally Active 1 packet Twice a day mixed with water or non-carbonate d drink Levothyroxine [facility] 57451315547 125 MCG Active TAKE 1 TABLET Sodium BY MOUTH ONCE A DAY ON AN EMPTY STOMACH 30 MINUTES BEFORE FIRST MEAL Byanish 10 MCG Pen ND 22295264765 10 MCG/0.04ML March Active as directed Subcutaneous , twice a day 2017 (bid) Hyoscyamine [facility] [address]-12 0.375 MG Active 1 tablet as Sulfate Orally every 4 needed hrs before meals Toujeo LorenaoStar [facility] 96910038663 300 UNIT/ML Active as directed Subcutaneous 50 units once nightly Sertraline HCl [facility] 36596078405 100 MG Active TAKE 1 TABLET BY MOUTH EVERY DAY Lidocaine ND 0 3 % Externally Sep 07, Active 1 application Twice a day 2017 to affected PRN area as needed Atorvastatin ND 18458389439 40 mg Orally Active 1 tablet Calcium Once a day Sucralfate ND 98173278705 1 GM Orally Active 1 tablet at Twice a day bedtime on an empty stomach before meals Rosuvastatin [facility] 62262609813 20 MG Orally Active 1 tablet Calcium Once a day Promethazine HCl [facility] 95510563685 12.5 MG Orally Active 1 tablet every 6 hrs Polyethylene ND 94253323914 - Oral Active EVERY DAY Glycol 3350 DIRECTED Vital Signs Date/Time: Sep 07, 2018 BMI 40.22 Index Weight 253 lbs Height 66.5 in Cardiac Monitoring Heart Rate 87 /min Blood Pressure Diastolic 58 mm Hg Blood Pressure Systolic 112 mm Hg Results Name Result Date Reference Range Unit Abnormality Flag PROTHROMBIN TIME-INR ----PT 26.2 [id number] ----INR 2.1 [id number] Summary Purpose eClinicalWorks Submission
--- OUTSIDE RECORDS SUMMARY | 2019-05-25 23:24 | XMS REPORT ---
[...] K74.60 Active unspecified hepatic cirrhosis type Assessment DVT (deep venous thrombosis) I82.409 Active Assessment Chronic anticoagulation Z79.01 Active Problem [...] Start End Status Dosage System Date Date Cholestyramine [facility] 37343393493 4 GM/DOSE Active 1 scoop Orally daily Iron ND 79731162771 325 (65 Fe) MG Active 1 tablet Orally Once a day Levothyroxine ND 00040707474 125 MCG Active TAKE 1 Sodium TABLET BY MOUTH ONCE A DAY ON AN EMPTY STOMACH 30 MINUTES BEFORE FIRST MEAL K24-Vpcetg [facility] 54554507303 1 MG Orally Active not defined Nystatin & NDC 0 273162 UNIT/GM Active not Exfoliating Agent Externally defined Farxiga ND 63252758504 10 mg Orally Active 1 tablet Once a day Ferrous Sulfate ND 17333404714 325 (65 Fe) MG Active 1 tablet Orally twice a day (bid) Sucralfate [facility] 01090902786 1 GM Orally Active 1 tablet Twice a day at bedtime on an empty stomach before meals Atorvastatin [facility] 96009959132 40 mg Orally Active 1 tablet Calcium Once a day Hyoscyamine ND 88590354485 0.125 MG Orally Active 1 tablet Sulfate every 4 hrs as needed before meals Hyoscyamine [facility] 50846227684 0.375 MG Orally Active 1 tablet Sulfate CR every 12 hrs Novofine 31 [facility] 0 31G X 6 MM as Jul 16, Active as directed daily 2016 directed with use of Victoza Sertraline HCl [facility] 63116773793 100 MG Active TAKE 1 TABLET BY MOUTH EVERY DAY Michael Miramontes [facility] 66971941600 300 UNIT/ML Active as Subcutaneous 15 directed units once nightly Warfarin Sodium [facility] [address]-04 4 Active take 1 tablet by mouth once a day as directed Warfarin Sodium [facility] 67643518391 4 mg Orally qd May 18, Active 1 tablet as directed 2017 Warfarin Sodium [facility] 75315459507 3 MG Orally Jun 03, Active 1 tablet Once a day as 2018 directed Ondansetron [facility] 29239553765 4 MG Orally Active 1 tablet every 8 hrs on the tongue and allow to dissolve Carvedilol [facility] 16196116794 6.25 MG Active take 1 tablet by mouth twice daily with food Lisinopril [facility] 18178974481 5 MG Active TAKE 1 TABLET BY MOUTH EVERY DAY Pantoprazole [facility] 15187041507 40 mg Orally Active 1 tablet Sodium twice a day (bid) Ergocalciferol [facility] 48672794142 25445 UNIT January Active 1 capsule Orally once per 17, 14, week 2017 2017 Byetta 10 MCG Pen [facility] 97393866190 10 MCG/0.04ML March Active as Subcutaneous , directed twice a day 2017 2017 (bid) Results Name Result Date Reference Range Unit Abnormality Flag PROTHROMBIN TIME-INR ----PT 34.3 [id number] ----INR 2.8 [id number] Summary Purpose eClinicalWorks Submission
--- OUTSIDE RECORDS SUMMARY | 2019-05-25 23:24 | XMS REPORT ---
:1965 Author Organization eClinicalWorks Care Team Providers Name Role Phone Roxanne Pantoja Provider Role Unavailable Allergies, Adverse Reactions, Alerts Substance Reaction Event Type Adhesive Bandages Info Not Available Drug Allergy Keflex abdomen pain Drug Allergy Doxycycline Hyclate abdomen pain Drug Allergy Dilaudid hallucinations Drug Allergy Problems Problem Type Condition Code Onset Dates Condition Status Assessment Rash R21 Active Assessment Type 2 diabetes mellitus with E11.65 Active hyperglycemia, without long-term current use of insulin Assessment Chronic anticoagulation Z79.01 Active Assessment Benign essential hypertension I10 Active Problem Other chronic pain G89.29 Active [...] End Status Dosage System Date Date Atorvastatin [facility] 91210995048 40 MG Orally Active 1 tablet Calcium Once a day Byetta 10 MCG Pen [facility] 45367629802 10 MCG/0.04ML March Active as directed Subcutaneous 28, twice a day 2018 (bid) Michael Miramontes ND 70164683260 300 UNIT/ML Active as directed Subcutaneous 15 units once nightly Sertraline HCl [facility] 58722712510 100 MG Active TAKE 1 TABLET BY MOUTH EVERY DAY Lovenox ND 62368220051 80 MG/0.8ML Sep 12, Active as directed Subcutaneous 2018 bid Cholestyramine ND 82324684202 4 GM Orally Active 1 packet Twice a day mixed with water or non-carbonate d drink Hyoscyamine [facility] [address]-78 0.375 MG Active 1 tablet as Sulfate Orally every needed 12 hrs Vitamin C ND 02724082893 500 MG Orally Active as directed Pioglitazone HCl [facility] 45386599279 30 mg Orally Active 1 tablet Once a day Ondansetron ND 89210895000 4 MG Orally Active 1 tablet on every 8 hrs the tongue and allow to dissolve Polyethylene ND 64741353628 - Oral Active EVERY DAY Glycol 3350 DIRECTED Nystatin [facility] 46598739794 892207 UNIT/GM Active 1 application Externally to affected Twice a day, area may discontinue 48 hours after [place] [address]-04 108 (90 Base) Oct 21, Active 2 puffs as HFA MCG/ACT 2018 needed Inhalation every 6 hrs PRN Rosuvastatin ND 65771137542 20 MG Orally Active 1 tablet Calcium Once a day Benzonatate ND 45859697858 200 MG Orally Active 1 capsule Three times a day Vitamin D [facility] [address]-30 03306 UNIT Nov 01, Active 1 capsule (Ergocalciferol) Orally once a 2018 week Nystatin [facility] 38935910643 260072 UNIT/GM Nov 01Nov Active 1 application Externally 2018, to affected Twice a day 2019 area PRN Warfarin Sodium ND 39587554556 4 MG Active TAKE 1 TABLET BY MOUTH ONCE A DAY DIRECTED Carvedilol [facility] 78053957575 6.25 MG Active take 1 tablet by mouth twice daily with food Levothyroxine ND 16563330505 125 MCG Active TAKE 1 TABLET Sodium BY MOUTH ONCE A DAY ON AN EMPTY STOMACH 30 MINUTES BEFORE FIRST MEAL ProAir HFA NDC [address]-40 108 (90 Base) Active 2 puffs as MCG/ACT needed Inhalation every 6 hrs Ferrous Sulfate [facility] 10487044195 325 (65 Fe) MG Active 1 tablet Orally twice a day (bid) Triamcinolone [facility] 93219941648 0.1 % Nov 01, 1 application Acetonide Externally 2019 to affected Twice a day area PRN Warfarin Sodium [facility] 29500563216 3 MG Orally Active 1 tablet Once a day as directed Sucralfate [facility] 40839288353 1 GM Orally Active 1 tablet at Twice a day bedtime on an empty stomach before meals Pantoprazole [facility] 61015437130 40 mg Orally Active 1 tablet Sodium twice a day (bid) Promethazine HCl [facility] 52303167330 12.5 MG Orally Active 1 tablet every 6 hrs Vital Signs Date/Time: Nov 01, 2018 BMI 42.92 Index Weight 270 lbs Height 66.5 in Cardiac Monitoring Heart Rate 88 /min Blood Pressure Diastolic 70 mm Hg Blood Pressure Systolic 118 mm Hg Results Name Result Date Reference Range Unit Abnormality Flag PROTHROMBIN TIME-INR ----PT 22.8 [id number] ----INR 1.9 [id number] Summary Purpose eClinicalWorks Submission
[2019-05-25] MEDS ORDERED: PROMETHAZINE 25 MG/ML VIAL ONE (23:25)
--- OUTSIDE RECORDS SUMMARY | 2019-05-25 23:25 | XMS REPORT ---
:1965 Author Organization eClinicalWorks Care Team Providers Name Role Phone Roxanne Pantoja Provider Role Unavailable Allergies, Adverse Reactions, Alerts Substance Reaction Event Type Adhesive Bandages Info Not Available Drug Allergy Keflex abdomen pain Drug Allergy Doxycycline Hyclate abdomen pain Drug Allergy Dilaudid hallucinations Drug Allergy Problems Problem Type Condition Code Onset Dates Condition Status Assessment Palpitations R00.2 Active Assessment Depression, unspecified depression F32.9 Active type Assessment Acquired hypothyroidism E03.9 Active Assessment Other and unspecified E78.5 Active hyperlipidemia Assessment Benign essential hypertension I10 Active Problem Acquired hypothyroidism E03.9 Active Assessment Anemia, unspecified type D64.9 Active Problem Gastroesophageal reflux disease, K21.9 Active esophagitis presence not specified Assessment Cirrhosis of liver without ascites, K74.60 Active unspecified hepatic cirrhosis type Problem Vitamin D deficiency E55.9 Active Problem Other chronic pain G89.29 Active Problem Type 2 diabetes mellitus with E11.65 Active hyperglycemia, without long-term current use of insulin Problem Hepatic steatosis K76.0 Active Problem Cirrhosis of liver without ascites, K74.60 Active unspecified hepatic cirrhosis type Problem Primary insomnia F51.01 Active Assessment Type 2 diabetes mellitus with E11.65 Active hyperglycemia, without long-term current use of insulin Problem Memory loss R41.3 Active Assessment Chronic [...] Start End Status Dosage System Date Date Levothyroxine [facility] 76236717281 125 MCG Active TAKE 1 Sodium TABLET BY MOUTH ONCE A DAY ON AN EMPTY STOMACH 30 MINUTES BEFORE FIRST MEAL Warfarin Sodium [facility] 74662879430 4 mg Orally qd May 18, Active 1 tablet as directed 2017 Warfarin Sodium [facility] 87584737269 3 MG Orally Jun 03, Active 1 tablet Once a day as 2017 directed Lisinopril [facility] 53037254816 5 MG Active TAKE 1 TABLET BY MOUTH EVERY DAY Hyoscyamine [facility] 62671053786 0.375 MG Orally Active 1 tablet Sulfate CR every 12 hrs Hyoscyamine [facility] [address]-30 0.375 MG Orally Active 1 tablet Sulfate every 4 hrs as needed before meals Michael Miramontes [facility] 83654192278 300 UNIT/ML Active as Subcutaneous 43 directed units once nightly Atorvastatin [facility] 35469850175 40 mg Orally Active 1 tablet Calcium Once a day Iron [facility] 30293504276 325 (65 Fe) MG Active 1 tablet Orally Once a day Carvedilol [facility] 04817371562 6.25 MG Active take 1 tablet by mouth twice daily with food [id number] [facility] 30289187033 1 MG Orally Active not defined Sucralfate [facility] 11277259713 1 GM Orally Active 1 tablet Twice a day at bedtime on an empty stomach before meals Pantoprazole [facility] 43376196278 40 mg Orally Active 1 tablet Sodium twice a day (bid) Novofine 31 NDC 0 31G X 6 MM as Jul 16, Active as directed daily 2016 directed with use of Victoza Ondansetron [facility] 00458338483 4 MG Orally Active 1 tablet every 8 hrs on the tongue and allow to dissolve Nystatin & NDC 0 245940 UNIT/GM Active not Exfoliating Agent Externally defined Sertraline HCl [facility] 16965131402 100 MG Active TAKE 1 TABLET BY MOUTH EVERY DAY Farxiga [facility] 49073440745 10 mg Orally Active 1 tablet Once a day Cholestyramine ND 96318503532 4 GM/DOSE Active 1 scoop Orally daily Warfarin Sodium [facility] [address]-05 4 Active take 1 tablet by mouth once a day as directed Ferrous Sulfate [facility] 10536545987 325 (65 Fe) MG Active 1 tablet Orally twice a day (bid) Byetta 10 MCG Pen [facility] 15221573358 10 MCG/0.04ML March Active as Subcutaneous , directed twice a day 2017 (bid) Vital Signs Date/Time: Jul 29, 2018 BMI 39.90 Index Weight 251 lbs Height 66.5 in Temperature 98.7 F Cardiac Monitoring Heart Rate 75 /min Blood Pressure Diastolic 74 mm Hg Blood Pressure Systolic 122 mm Hg Results No Known Results Summary Purpose eClinicalWorks Submission
--- OUTSIDE RECORDS SUMMARY | 2019-05-25 23:25 | XMS REPORT ---
[...] Medications Results No Known Results Summary Purpose [employer]asure Submission
--- OUTSIDE RECORDS SUMMARY | 2019-05-25 23:25 | XMS REPORT ---
[...] Medications Results No Known Results Summary Purpose FX Bridge[employer]Contemporary Analysis Submission
--- OUTSIDE RECORDS SUMMARY | 2019-05-25 23:25 | XMS REPORT ---
[...] Condition Status Assessment 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 Active Assessment Gastroparesis K31.84 Active Assessment Low back pain M54.5 Active Assessment Chronic anticoagulation Z79.01 Active Assessment Benign essential hypertension I10 Active Assessment Fall W19.XXXA Active Problem Other chronic pain G89.29 Active [...] R41.3 Active Problem Cirrhosis of liver without K74.60 Active ascites, unspecified hepatic cirrhosis type Problem Abnormal mammogram [...] Status Dosage System Date Date Warfarin Sodium [facility] 94932441362 3 MG Orally Jun 03, Active 1 tablet Once a day as 2018 directed Promethazine HCl [facility] 59442390580 12.5 MG Orally Active 1 tablet every 6 hrs Carvedilol [facility] 44170146965 6.25 MG Active take 1 tablet by mouth twice daily with food Polyethylene ND 85808950054 - Oral Active EVERY DAY Glycol 3350 DIRECTED [place] 10 MCG Pen ND 09916511501 10 MCG/0.04ML March Active as directed Subcutaneous , twice a day 2017 (bid) Hyoscyamine [facility] [address]-08 0.375 MG Active 1 tablet as Sulfate Orally every 4 needed hrs before meals Pioglitazone HCl ND 65001507542 30 mg Orally Active 1 tablet Once a day Ondansetron ND 78317588187 4 MG Orally Active 1 tablet on every 8 hrs the tongue and allow to dissolve Pantoprazole [facility] 36673095968 40 mg Orally Active 1 tablet Sodium twice a day (bid) Toudariono LorenaoStar [facility] 96567942590 300 UNIT/ML Active as directed Subcutaneous 50 units once nightly Levothyroxine ND 22200090690 125 MCG Active TAKE 1 TABLET Sodium BY MOUTH ONCE A DAY ON AN EMPTY STOMACH 30 MINUTES BEFORE FIRST MEAL Warfarin Sodium ND 84003236968 4 mg Orally qd May 18, Active 1 tablet as directed 2017 Sertraline HCl [facility] 45464115477 100 MG Active TAKE 1 TABLET BY MOUTH EVERY DAY Lidocaine ND 0 3 % Externally Sep 07, Active 1 application Twice a day 2017 to affected PRN area as needed Ferrous Sulfate ND 07792790703 325 (65 Fe) MG Active 1 tablet Orally twice a day (bid) Rosuvastatin ND 00880451586 20 MG Orally Active 1 tablet Calcium Once a day Nystatin [facility] 51563298433 639894 UNIT/GM Active 1 application Externally to affected Twice a day, area may discontinue 48 hours after rash has resolved Sucralfate ND 33301261509 1 GM Orally Active 1 tablet at Twice a day bedtime on an empty stomach before meals Atorvastatin ND 86758091266 40 mg Orally Active 1 tablet Calcium Once a day Cholestyramine ND 71696940043 4 GM Orally Active 1 packet Twice a day mixed with water or non-carbonate d drink Lovenox ND 08954626709 80 MG/0.8ML Sep 12, Active as directed Subcutaneous 2018 bid Vital Signs Date/Time: Oct 06, 2018 Blood Pressure Systolic 110 mm Hg Weight Refused lbs Height 66.5 in Cardiac Monitoring Heart Rate 74 /min Blood Pressure Diastolic 74 mm Hg Results Name Result Date Reference Range Unit Abnormality Flag PROTHROMBIN TIME-INR ----PT 26.5 [id number] ----INR 2.2 20181006 Summary Purpose eClinicalWorks Submission
--- OUTSIDE RECORDS SUMMARY | 2019-05-25 23:25 | XMS REPORT ---
[...] Status Assessment Chronic anticoagulation Z79.01 Active Assessment Paronychia of finger, unspecified L03.019 Active laterality Assessment Benign essential hypertension I10 Active Assessment Ingrown fingernail L60.0 Active Problem PE (pulmonary embolism) I26.99 Active [...] Start End Status Dosage System Date Date Sucralfate [facility] 55729555443 1 GM Orally Active 1 tablet at Twice a day bedtime on an empty stomach before meals Hyoscyamine [facility] [address]-42 0.375 MG Active 2 tablet as Sulfate Orally every needed 12 hrs Carvedilol [facility] 94775865402 6.25 MG Active take 1 tablet by mouth twice daily with food Atorvastatin ND 50918831720 40 MG Orally Active 1 tablet Calcium Once a day Ferrous Sulfate [facility] 12316640518 325 (65 Fe) MG Active 1 tablet Orally twice a day (bid) Ursodiol [facility] 16600640507 500 mg by Active 1 tablet mouth twice a day (bid) Bactrim DS [facility] 42835262073 800-160 MG February 28February Active 1 tablet Orally Twice a 2019 2018 Ondansetron [facility] 77233849038 4 MG Orally Active 1 tablet on every 8 hrs the tongue and allow to dissolve Warfarin Sodium ND 24851722538 4 mg Orally Nov 21, Active 1 tablet , wed Promethazine HCl [facility] 91118402354 12.5 MG Orally Active 1 tablet every 6 hrs Duloxetine HCl [facility] 30456567509 60 MG Orally Nov 21, Active 1 capsule daily 2018 Pioglitazone HCl [facility] 92583176826 30 mg Orally Active 1 tablet Once a day Spironolactone [facility] 26329793967 50 mg by mouth Active 1 tablet once every morning Tramadol HCl [facility] [address]-95 50 mg Q8 PRN Active as directed Pantoprazole [facility] 96563700887 40 mg Orally Active 1 tablet Sodium twice a day (bid) Vitamin C [facility] 80198871753 500 MG Orally Active as directed Nystatin [facility] 98648978700 896076 UNIT/ML February 14February Active 4 ml Mouth/Throat 2018, swish and spit 2018 every 6 hours Gabapentin ND 83924619391 300 MG Orally Active 1 capsule TID Levothyroxine ND 98952323675 125 MCG Active TAKE 1 TABLET Sodium BY MOUTH ONCE A DAY ON AN EMPTY STOMACH 30 MINUTES BEFORE FIRST MEAL Triamcinolone [facility] 48959755079 0.1 % Nov 01, Active 1 application Acetonide Externally 2019 to affected Twice a day area PRN Polyethylene [facility] 93156401033 - Oral Active EVERY DAY Glycol 3350 DIRECTED Vitamin D [facility] 78027835634 82484 UNIT Nov 01Jul Active 1 capsule (Ergocalciferol) Orally once a 2019 , 2018 Nystatin [facility] 16257735933 132367 UNIT/GM Active 1 application Externally to affected Twice a day, area may discontinue 48 hours after rash has resolved ProAir HFA [facility] 80938248448 108 (90 Base) Active 2 puffs as MCG/ACT needed Inhalation every 6 hrs Furosemide [facility] 88931130343 20 mg by mouth Active 1 tablet once every morning Vital Signs Date/Time: February 28, 2019 BMI 43.08 Index Weight 271 lbs Height 66.5 in Cardiac Monitoring Heart Rate 83 /min Blood Pressure Diastolic 68 mm Hg Blood Pressure Systolic 132 mm Hg Results Name Result Date Reference Range Unit Abnormality Flag PROTHROMBIN TIME-INR ----PT 26.2 [id number] ----INR 2.1 [id number] Summary Purpose eClinicalWorks Submission
--- OUTSIDE RECORDS SUMMARY | 2019-05-25 23:25 | XMS REPORT ---
:1965 Author Organization eClinicalWorks Care Team Providers Name Role Phone Roxanne Pantoja Provider Role Unavailable Allergies, Adverse Reactions, Alerts Substance Reaction Event Type Adhesive Bandages Info Not Available Drug Allergy Keflex abdomen pain Drug Allergy Doxycycline Hyclate abdomen pain Drug Allergy Dilaudid hallucinations Drug Allergy Problems Problem Type Condition Code Onset Dates Condition Status Assessment Abnormal mammogram R92.8 Active Assessment Type 2 diabetes mellitus with E11.65 Active hyperglycemia, without long-term current use of insulin Assessment Yeast vaginitis B37.3 Active Assessment Other viral warts B07.8 Active Assessment Eczema, unspecified type L30.9 Active Assessment Sebaceous cyst L72.3 Active Problem Depression, unspecified depression F32.9 Active type Assessment Chronic anticoagulation Z79.01 Active Problem Vitamin D deficiency E55.9 Active Assessment Benign essential hypertension I10 Active Problem Type 2 diabetes mellitus with E11.65 Active hyperglycemia, without long-term current use of insulin Problem Low back pain M54.5 Active Problem Other chronic pain G89.29 Active Problem Cirrhosis of liver without ascites, K74.60 Active unspecified hepatic cirrhosis type Problem Memory loss R41.3 Active Problem Benign essential hypertension I10 Active [...] Start End Status Dosage System Date Date Michael Ivoryar [facility] 71878251283 300 UNIT/ML Active as Subcutaneous 50 directed units once nightly Warfarin Sodium [facility] 57357899827 4 mg Orally qd May 18, Active 1 tablet as directed 2017 Sucralfate [facility] 12263236877 1 GM Orally Active 1 tablet Twice a day at bedtime on an empty stomach before meals Atorvastatin [facility] 49292792671 40 mg Orally Active 1 tablet Calcium Once a day Farxiga [facility] 03720204060 10 mg Orally Active 1 tablet Once a day Hyoscyamine [facility] [address]-01 0.375 MG Orally Active 1 tablet Sulfate every 4 hrs as needed before meals Cholestyramine [facility] 92588693833 4 GM Orally Active 1 packet Twice a day mixed with water or non-carbon ated drink Levothyroxine [facility] 78844664661 125 MCG Active TAKE 1 Sodium TABLET BY MOUTH ONCE A DAY ON AN EMPTY STOMACH 30 MINUTES BEFORE FIRST MEAL Promethazine HCl [facility] 71566271915 12.5 MG Orally Active 1 tablet every 6 hrs Iron [facility] 72932887426 325 (65 Fe) MG Active 1 tablet Orally Once a day Ondansetron [facility] 34055734436 4 MG Orally Active 1 tablet every 8 hrs on the tongue and allow to dissolve Ferrous Sulfate [facility] 71959469545 325 (65 Fe) MG Active 1 tablet Orally twice a day (bid) Pantoprazole [facility] 56417480679 40 mg Orally Active 1 tablet Sodium twice a day (bid) Fluconazole [facility] 40727042260 150 MG Orally Aug 19Aug Active 1 tablet QD x 5 days 2017 [place] 10 MCG Pen [facility] 97031459418 10 MCG/0.04ML March Active as Subcutaneous , directed twice a day 2017 (bid) Rosuvastatin [facility] 62891157941 20 MG Orally Active 1 tablet Calcium Once a day Warfarin Sodium [facility] 00981109524 3 MG Orally Jun 03, Active 1 tablet Once a day as 2018 directed Sertraline HCl [facility] 35497186633 100 MG Active TAKE 1 TABLET BY MOUTH EVERY DAY Carvedilol [facility] 05432675136 6.25 MG Active take 1 tablet by mouth twice daily with food Vital Signs Date/Time: Aug 19, 2018 BMI 39.74 Index Weight 250 lbs Height 66.5 in Cardiac Monitoring Heart Rate 86 /min Blood Pressure Diastolic 70 mm Hg Blood Pressure Systolic 118 mm Hg Results Name Result Date Reference Range Unit Abnormality Flag PROTHROMBIN TIME-INR ----PT 33.5 [id number] ----INR 2.7 [id number] Summary Purpose eClinicalWorks Submission
[2019-05-25] MEDS ORDERED: MORPHINE 4 MG/ML SYR ONE (23:26)
--- OUTSIDE RECORDS SUMMARY | 2019-05-25 23:26 | XMS REPORT ---
[...] Medications Results No Known Results Summary Purpose YieldBuildinicalBURLESQUICEOUS Submission
--- OUTSIDE RECORDS SUMMARY | 2019-05-25 23:26 | XMS REPORT ---
[...] Medications Results No Known Results Summary Purpose [employer].inicalNo [employer] Submission
--- OUTSIDE RECORDS SUMMARY | 2019-05-25 23:26 | XMS REPORT ---
[...] Medications Results No Known Results Summary Purpose [place] [employer] Submission
--- OUTSIDE RECORDS SUMMARY | 2019-05-25 23:26 | XMS REPORT ---
[...] Medications Results No Known Results Summary Purpose [employer] USA[employer]iv[employer]ix [employer] Submission
--- OUTSIDE RECORDS SUMMARY | 2019-05-25 23:26 | XMS REPORT ---
:1965 Author Organization eClinicalWorks Care Team Providers Name Role Phone Roxanne Pantoja Provider Role Unavailable Allergies, Adverse Reactions, Alerts Substance Reaction Event Type Adhesive Bandages Info Not Available Drug Allergy Keflex abdomen pain Drug Allergy Doxycycline Hyclate abdomen pain Drug Allergy Dilaudid hallucinations Drug Allergy Problems Problem Type Condition Code Onset Dates Condition Status Assessment Cirrhosis of liver without ascites, K74.60 Active unspecified hepatic cirrhosis type Assessment Irritable bowel syndrome with both K58.2 Active constipation and diarrhea Assessment Primary insomnia F51.01 Active Assessment Other chronic pain G89.29 Active Assessment Benign essential hypertension I10 Active [...] apnea) G47.33 Active Problem 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 Active Assessment Depression, unspecified depression F32.9 Active type Problem Gastroesophageal reflux disease, K21.9 Active esophagitis presence not specified Assessment Type 2 diabetes mellitus with E11.65 Active hyperglycemia, without long-term current use of insulin Problem Other and unspecified E78.5 Active hyperlipidemia Problem Diverticulosis of large intestine K57.30 Active without hemorrhage Assessment Celiac disease K90.0 Active Problem Acquired hypothyroidism E03.9 Active Problem Other chronic pain G89.29 Active Problem Low back pain M54.5 Active Problem Depression, unspecified depression F32.9 Active type Problem Type 2 diabetes mellitus with E11.65 Active hyperglycemia, without long-term current use of insulin Medications Medication Code Code Instructions Start End Status Dosage System Date Date Hyoscyamine [facility] [address]-33 0.375 MG Active 2 tablet as Sulfate Orally every needed 12 hrs Sertraline HCl [facility] 76961985344 100 MG Inactive TAKE 1 TABLET BY MOUTH EVERY DAY Promethazine [facility] 77043070142 12.5 MG Orally Active 1 tablet HCl every 6 hrs Lovenox [facility] 43986925351 80 MG/0.8ML Sep 12, Active as directed Subcutaneous 2017 bid Atorvastatin ND 38294522176 40 MG Orally Active 1 tablet Calcium Once a day ProAir HFA [facility] 71211496555 108 (90 Base) Active 2 puffs as MCG/ACT needed Inhalation every 6 hrs Warfarin Sodium ND 83852844042 4 mg Orally Nov 21, Active 1 tablet Once a day as 2019 directed Albuterol [facility] 35242464873 108 (90 Base) Active 2 puffs as Sulfate HFA MCG/ACT needed Inhalation every 6 hrs PRN Polyethylene ND 42920631893 - Oral Active EVERY DAY Glycol 3350 DIRECTED [place] ND 82357892794 75 mg Orally Nov 21, Active 1 capsule twice a day 2018 (bid) Benzonatate ND 90770361499 200 MG Orally Active 1 capsule Three times a day Vitamin C [facility] 95396052471 500 MG Orally Active as directed Vitamin D [facility] 24663879042 00796 UNIT Nov 01, Active 1 capsule (Ergocalciferol Orally once a 2018 ) week Pantoprazole ND 18235597382 40 mg Orally Active 1 tablet Sodium twice a day (bid) Triamcinolone ND 97419271846 0.1 % Nov 01, Active 1 application Acetonide Externally 2018 to affected Twice a day area PRN Nystatin [facility] 20378394189 016429 UNIT/GM Nov 01Nov Active 1 application Externally 2018, to affected Twice a day 2019 area PRN Ondansetron ND 29139197906 4 MG Orally Active 1 tablet on every 8 hrs the tongue and allow to dissolve Sucralfate ND 89176844443 1 GM Orally Active 1 tablet at Twice a day bedtime on an empty stomach before meals Nystatin [facility] 81635326255 271965 UNIT/GM Active 1 application Externally to affected Twice a day, area may discontinue 48 hours after rash has resolved Warfarin Sodium [facility] 90594610419 3 MG Orally Active 1 tablet Once a day as directed Duloxetine HCl [facility] 77485514940 30 mg Orally 1 Nov 21, Active 1 capsule tablet PO QD x 2019 2 2 tablet PO QD x 2 weeks Levothyroxine [facility] 20617659488 125 MCG Active TAKE 1 TABLET Sodium BY MOUTH ONCE A DAY ON AN EMPTY STOMACH 30 MINUTES BEFORE FIRST MEAL Ferrous Sulfate [facility] 55175293781 325 (65 Fe) MG Active 1 tablet Orally twice a day (bid) [place] 10 MCG [facility] 68433349656 10 MCG/0.04ML March Active as directed Pen Subcutaneous 28, twice a day 2017 (bid) [place] CarrillooStar [facility] 03318578209 300 UNIT/ML Active as directed Subcutaneous 50 units once nightly Carvedilol [facility] 26709393717 6.25 MG Active take 1 tablet by mouth twice daily with food Pioglitazone [facility] 48770124603 30 mg Orally Active 1 tablet HCl Once a day Vital Signs Date/Time: Nov 21, 2018 BMI 44.51 Index Weight 280 lbs Height 66.5 in Cardiac Monitoring Heart Rate 78 /min Blood Pressure Diastolic 68 mm Hg Blood Pressure Systolic 128 mm Hg Results Name Result Date Reference Range Unit Abnormality Flag PROTHROMBIN TIME-INR ----PT 23.1 [id number] ----INR 1.9 [id number] Summary Purpose eClinicalWorks Submission
--- OUTSIDE RECORDS SUMMARY | 2019-05-25 23:26 | XMS REPORT ---
[...] Medications Results No Known Results Summary Purpose [employer] LodgeinicalPlayerLync Submission
--- OUTSIDE RECORDS SUMMARY | 2019-05-25 23:26 | XMS REPORT ---
[...] Medications Results No Known Results Summary Purpose [employer]inicalGloss48 Submission
--- OUTSIDE RECORDS SUMMARY | 2019-05-25 23:26 | XMS REPORT ---
[...] Medications Results No Known Results Summary Purpose [employer]inicalShanxi [employer] Submission
--- OUTSIDE RECORDS SUMMARY | 2019-05-25 23:26 | XMS REPORT ---
[...] Medications Results No Known Results Summary Purpose [employer] Submission
--- OUTSIDE RECORDS SUMMARY | 2019-05-25 23:26 | XMS REPORT ---
:1965 Author Organization eClinicalWorks Care Team Providers Name Role Phone Roxanne Pantoja Provider Role Unavailable Allergies No Known Allergies Problems Problem Type Condition Code Onset Dates Condition Status Assessment 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 Active Problem PE (pulmonary embolism) I26.99 Active [...] Start End Status Dosage System Date Date Duloxetine HCl [facility][NOTE 3] 87741698180 60 MG Orally Nov 21, Active 1 capsule daily 2018 Results No Known Results Summary Purpose eClinicalWorks Submission
--- OUTSIDE RECORDS SUMMARY | 2019-05-25 23:26 | XMS REPORT ---
[...] Active Problem Hepatic steatosis K76.0 Active Problem TANAI (obstructive sleep apnea) G47.33 Active Problem Polyarthropathy [...] Medications Results No Known Results Summary Purpose [employer]FloorinicalFedBid Submission
--- OUTSIDE RECORDS SUMMARY | 2019-05-25 23:27 | XMS REPORT ---
:1965 Author Organization eClinicalWorks Care Team Providers Name Role Phone Madelaine Philippe Provider Role Unavailable Encounters Encounter Location Date REFILL [facility] January 15, 2014 Prior Auth [facility] January Unknown [facility] January 29, 2014 Test results [facility] January 30, 2014 PHYSICAL [facility] Jun 13, 2013 Test results [facility] Jun 27, 2013 Unknown [facility] January 09, 2014 REFILL [facility] March 21, 2014 STOMACH PAIN [facility] January 29, 2014 Bad Cough [facility] March 08, 2014 Problems Problem Type Condition ICD-9 Code Onset Dates Condition Status Problem Essential hypertension, benign 401.1 Active Problem Vertigo 780.4 Active Problem GERD (gastroesophageal reflux 530.81 Active disease) Problem Hyperlipidemia 272.4 Active Problem DVT (deep venous thrombosis) 453.40 Active Problem Smoker 305.1 Active Problem Diabetes 250.00 Active Problem PE (pulmonary embolism) 415.19 Active Problem Hypothyroid 244.9 Active Problem Depression 311 Active Medications Medication Code System Code Instructions Start End Date Status Dosage Date Venlafaxine HCl [facility] 97228-62 75 mg Orally Active 2 tablets 82-01 daily Social History Social History Element Qualifiers Date Reported Depression Screening: . 01/2014March 08, 2014 Flu Vaccine: . no March 08, 2014 children . 2 March 08, 2014 Tobacco Use: . Are you a: former smoker quit March 08, 2014 days ago, smoked 20-30 years Use of recreational / street drugs? . Answer: No March 08, 2014 Marital Status: . March 08, 2014 Do you drink alcohol? . Status: Yes, How often? Socially March 08, 2014 Occupation: employed. [employer] March 08, 2014 Summary Purpose eClinicalWorks Submission
--- OUTSIDE RECORDS SUMMARY | 2019-05-25 23:27 | XMS REPORT ---
[...] Medications Results No Known Results Summary Purpose TriparazziinicalEmpressr Submission
--- OUTSIDE RECORDS SUMMARY | 2019-05-25 23:27 | XMS REPORT ---
:1965 Author Organization eClinicalWorks Care Team Providers Name Role Phone JaylayairKeri reynoso Provider Role Unavailable Allergies, Adverse Reactions, Alerts Substance Reaction Event Type Keflex abdomen pain Drug Allergy Doxycycline Hyclate abdomen pain Drug Allergy Encounters Encounter Location Date PHYSICAL [facility] Jun 13, 2013 Problems Problem Type Condition ICD-9 Code Onset Dates Condition Status Assessment Diabetes 250.00 Active Problem GERD (gastroesophageal reflux 530.81 Active disease) Assessment Hypertension 401.9 Active Assessment Needle stick injury of finger 883.0 Active Problem Hypertension 401.9 Active Problem Hypothyroid 244.9 Active Problem DVT (deep venous thrombosis) 453.40 Active Problem PE (pulmonary embolism) 415.19 Active Problem Vertigo 780.4 Active Problem Depression 311 Active Problem Diabetes 250.00 Active Medications Medication Code Code Instructions Start End Status Dosage System Date Date BusPIRone HCl [facility] 17491-814 10 mg Orally May 12, Active 1 tablet 4-01 Twice a day as 2013 needed Lisinopril [facility] 82415-512 5 MG Orally Once Active 1 tablet 6-01 a day Bactrim DS [facility] 86376-534 800-160 MG Jun 13Jun Active 1 tablet 0-01 Orally Twice [place] 2012 [place] [address] 40 MG Orally Active 1 tablet Sodium 2-10 [place] [address] 120 MG Orally Active 1 tablet 1-01 Once a day Effexor MULTUM 2375 75 mg Orally 1 May 12, Active as directed tabet daily for 2012 7days, then 2 po daily Folic Acid [facility] 20501-456 800 MCG Orally Active 1 tablet 3-01 Once a day Warfarin Sodium [facility] 94247-941 4 mg Orally Active 1 tablet 4-01 daily NO OTC meds MULTUM 58013 [place] [address]-474 4 mg Orally Once Active 1 tablet 6-01 a day with breakfast or the first main meal of the day Social History Social History Element Qualifiers Date Reported children . 2 Jun 13, 2013 Tobacco Use: . Are you a: current smoker, How Jun 13, 2013 many packs per day? less than a half pack, How many years have you smoked? 20-30 Use of recreational / street drugs? . Answer: No Jun 13, 2013 Marital Status: . Jun 13, 2013 Do you drink alcohol? . Status: Yes, How often? Socially Jun 13, 2013 Occupation: employed. [employer] Jun 13, 2013 Family history Qualifier Description Comment Date Reported Children alive thyroid disease (son - living), Jun 13, 2013 hypertension (son), substance abuse (daughter - living) Maternal Grandmother heart disease, stroke, pulmonary Jun 13, 2013 embolism Father alive prostate cancer, hypertension, Jun 13, 2013 diabetes Siblings alive hypertension (older sister), substance Jun 13, 2013 abuse (brother - ) Mother heart attack, heart disease, Jun 13, 2013 hypertension, hypothyroid Paternal Grandmother breast cancer, diabetes Jun 13, 2013 Vital Signs Date/Time: Jun 13, 2013 Weight 266 lbs Height 66.5 inches Cardiac Monitoring Heart Rate 78 Beats per Minute Blood Pressure Diastolic 86 mm Hg Blood Pressure Systolic 140 mm Hg Immunizations Vaccine Administration Date TDAP VACCINE >11 Jun 13, 2013 Summary Purpose eClinicalWorks Submission
--- OUTSIDE RECORDS SUMMARY | 2019-05-25 23:27 | XMS REPORT ---
:1965 Author Organization eClinicalWorks Care Team Providers Name Role Phone Madelaine Philippe Provider Role Unavailable Encounters Encounter Location Date [place]YSICAL [facility] [place] [facility] Jun 13, 2013 Test results [facility] Jun 27, 2013 Problems Problem Type Condition ICD-9 Code Onset Dates Condition Status Problem GERD (gastroesophageal reflux 530.81 Active disease) Problem Hypertension 401.9 Active Problem Hypothyroid 244.9 Active Problem DVT (deep venous thrombosis) 453.40 Active Problem PE (pulmonary embolism) 415.19 Active Problem Vertigo 780.4 Active Problem Depression 311 Active Problem Diabetes 250.00 Active Medications Medication Code Code Instructions Start End Date Status Dosage System Date Vitamin D [facility] 31093-73 59770 UNIT Jun 27, Sep 25, Active 1 capsule (Ergocalciferol 94-01 Orally once per 2012 2012 ) week Pravastatin [facility] 32914-46 40 MG Orally Inactive 1 tablet Sodium 02-10 Once a day Vytorin [facility] 83990-44 10-40 MG Orally Jun 27, Active 1 tablet 39-30 Once a day 2012 Social History Social History Element Qualifiers Date [...] employed. [employer] Jun 13, 2013 Vital Signs Date/Time: Jun 13, 2013 Weight 266 lbs Height 66.5 inches Cardiac Monitoring Heart Rate 78 Beats per Minute Blood Pressure Diastolic 86 mm Hg Blood Pressure Systolic 140 mm Hg Summary Purpose eClinicalWorks Submission
--- OUTSIDE RECORDS SUMMARY | 2019-05-25 23:27 | XMS REPORT ---
:1965 Author Organization eClinicalWorks Care Team Providers Name Role Phone RaúlGonzalois Provider Role Unavailable Encounters Encounter Location Date REFILL [facility] January 15, 2014 Prior Auth [facility] January PHYSICAL [facility] Jun 13, 2013 Test results [facility] Jun 27, 2013 Unknown [facility] January 09, 2014 Problems Problem Type Condition ICD-9 Code Onset Dates Condition Status Problem GERD (gastroesophageal reflux 530.81 Active disease) Problem Hypertension 401.9 Active Problem Hypothyroid 244.9 Active Problem DVT (deep venous thrombosis) 453.40 Active Problem PE (pulmonary embolism) 415.19 Active Problem Vertigo 780.4 Active Problem Depression 311 Active Problem Diabetes 250.00 Active Social History Social History Element Qualifiers Date [...]
--- OUTSIDE RECORDS SUMMARY | 2019-05-25 23:27 | XMS REPORT ---
:1965 Author Organization eClinicalWorks Care Team Providers Name Role Phone Cosme Mckeonyla Provider Role Unavailable Allergies, Adverse Reactions, Alerts Substance Reaction Event Type Keflex abdomen pain Drug Allergy Doxycycline Hyclate abdomen pain Drug Allergy Encounters Encounter Location Date REFILL [facility] January 15, 2014 Prior Auth [facility] January Unknown [facility] January 29, 2014 Test results [facility] January 30, 2014 PHYSICAL [facility] Jun 13, 2013 Test results [facility] Jun 27, 2013 Unknown [facility] January 09, 2014 STOMACH PAIN [facility] January 29, 2014 Bad Cough [facility] March 08, [...] Hypothyroid 244.9 Active Problem Depression 311 Active Assessment SOB (shortness of breath) 786.05 Active Assessment Throat pain 784.1 Active Assessment Cough 786.2 Active Assessment Acute bronchitis 466.0 Active Medications Medication Code System Code Instructions Start End Date Status Dosage Date Glimepiride [facility] 46512-26 4 MG Active TAKE 1 56-01 TABLET BY MOUTH EVERY DAY Venlafaxine HCl [facility] 85762-24 75 mg Orally Active 2 tablets 82-01 daily BusPIRone HCl [facility] 33965-59 10 MG Active TAKE 1 54-01 TABLET BY MOUTH TWICE A DAY NEEDED Folic Acid [facility] 94763-48 800 MCG Orally Active 1 tablet 43-01 Once a day [place] [facility] 39597-79 120 MG Orally Active 1 tablet 61-01 Once a day Lisinopril [facility] 57963-21 5 MG Orally Once Active 1 tablet 66-01 a day IBU-200 [facility] 99355-32 200 MG Orally Active 1 tablet 47-60 every 6 hrs as needed Vytorin [facility] 21332-52 10-40 MG Active TAKE 1 39-30 TABLET BY MOUTH EVERY DAY Bromfed DM [facility] 74222-90 30-2-10 MG/5ML March 08March 18, Active 10 ml as 37-04 Orally every 6 2013 2013 needed hrs Warfarin Sodium [facility] 97101-82 4 mg Orally Active 1 tablet 04- daily NO OTC meds Unknown 0 Active Unknown taken Social History Social History Element Qualifiers Date [...] often? Socially March 08, 2014 Occupation: employed. [employer] March 08, 2014 Family history Qualifier Description Comment Date Reported Children alive thyroid disease (son - living), March 08, 2014 hypertension (son), substance abuse (daughter - living) Maternal Grandmother heart disease, stroke, pulmonary March 08, 2014 embolism Father alive prostate cancer, hypertension, March 08, 2014 diabetes Siblings alive hypertension (older sister), substance March 08, 2014 abuse (brother - ) Mother heart attack, heart disease, March 08, 2014 hypertension, hypothyroid Paternal Grandmother breast cancer, diabetes March 08, 2014 Vital Signs Date/Time: March 08, 2014 Weight 253 lbs Height 66.5 in Temperature 98.9 F Cardiac Monitoring Heart Rate 112 /min Blood Pressure Diastolic 82 mm Hg Blood Pressure Systolic 122 mm Hg Summary Purpose eClinicalWorks Submission
--- OUTSIDE RECORDS SUMMARY | 2019-05-25 23:27 | XMS REPORT ---
:1965 Author Organization eClinicalWorks Care Team Providers Name Role Phone Alem Munguia Provider Role Unavailable Encounters Encounter Location Date REFILL [facility] January 15, 2014 Prior Auth [facility] January Unknown [facility] January 29, 2014 Test results [facility] January 30, 2014 PHYSICAL [facility] Jun 13, 2013 Test results [facility] Jun 27, 2013 Unknown [facility] January 09, 2014 Problems Problem Type Condition ICD-9 Code Onset Dates Condition Status Problem GERD (gastroesophageal reflux 530.81 Active disease) Problem PE (pulmonary embolism) 415.19 Active Problem Vertigo 780.4 Active Assessment Ventral hernia 553.20 Active Problem Hyperlipidemia 272.4 Active Problem DVT (deep venous thrombosis) 453.40 Active Problem Smoker 305.1 Active Problem Depression 311 Active Problem Diabetes 250.00 Active Problem Hypertension 401.9 Active Problem Hypothyroid 244.9 Active Medications Medication Code System Code Instructions Start End Date Status Dosage Date Hydrocodone-Chirag MEDISPAN 01748-08 5-325 MG Orally January 30March 01, Active 1 tablet taminophen 13-01 every 6 hrs 2013 2013 as needed Social History Social History Element Qualifiers Date Reported children . 2 January 29, 2014 Tobacco Use: . Are you a: current smoker, How January 29, 2014 many packs per day? less than a half pack, How many years have you smoked? 20-30 Use of recreational / street drugs? . Answer: No January 29, 2014 Marital Status: . January 29, 2014 Do you drink alcohol? . Status: Yes, How often? January 29, 2014 Socially Occupation: employed. [employer] January 29, 2014 Summary Purpose eClinicalWorks Submission
--- OUTSIDE RECORDS SUMMARY | 2019-05-25 23:27 | XMS REPORT ---
[...] Medications Results No Known Results Summary Purpose [employer] Submission
--- OUTSIDE RECORDS SUMMARY | 2019-05-25 23:27 | XMS REPORT ---
[...] Medications Results No Known Results Summary Purpose [employer] Submission
--- OUTSIDE RECORDS SUMMARY | 2019-05-25 23:27 | XMS REPORT ---
:1965 Author Organization eClinicalWorks Care Team Providers Name Role Phone Madelaine Philippe Provider Role Unavailable Encounters Encounter Location Date REFILL [facility] January 15, 2014 PHYSICAL [facility] Jun 13, 2013 Test results [facility] Jun 27, 2013 Unknown [facility] January 09, 2014 Problems [...] Start End Status Dosage System Date Date Venlafaxine HCl [facility] 47573-75 75 mg Orally Active 2 tablets 82-01 daily Effexor MULTUM 2375 75 mg Orally 1 May 12, Inactive as directed tabet daily for 2012 7days, then 2 po daily Social History Social History Element Qualifiers [...]
--- OUTSIDE RECORDS SUMMARY | 2019-05-25 23:27 | XMS REPORT ---
:1965 Author Organization eClinicalWorks Care Team Providers Name Role Phone Madelaine Philippe Provider Role Unavailable Encounters Encounter Location Date PHYSICAL [facility] Jun 13, 2013 Test results [facility] Jun 27, 2013 Unknown [facility] January 09, 2014 Problems Problem Type Condition ICD-9 Code Onset Dates Condition Status Problem GERD (gastroesophageal reflux 530.81 Active disease) Problem Hypertension 401.9 Active Problem Hypothyroid 244.9 Active Problem DVT (deep venous thrombosis) 453.40 Active Problem PE (pulmonary embolism) 415.19 Active Problem Vertigo 780.4 Active Problem Depression 311 Active Problem Diabetes 250.00 Active Medications Medication Code System Code Instructions Start End Date Status Dosage Date [place] Thyroid [facility] 21470-807 120 MG Orally Active 1 tablet 1-01 Once a day Lisinopril [facility] 68561-621 5 MG Orally Once Active 1 tablet 6-01 a day Social History Social History Element Qualifiers [...]
--- OUTSIDE RECORDS SUMMARY | 2019-05-25 23:27 | XMS REPORT ---
:1965 Author Organization eClinicalWorks Care Team Providers Name Role Phone Alem Munguia Provider Role Unavailable Allergies, Adverse Reactions, Alerts Substance Reaction Event Type Keflex abdomen pain Drug Allergy Doxycycline Hyclate abdomen pain Drug Allergy Encounters Encounter Location Date REFILL [facility] January 15, 2014 Prior Auth [facility] January Unknown [facility] January 29, 2014 Test results [facility] January 30, 2014 PHYSICAL [facility] Jun 13, 2013 Test results [facility] Jun 27, 2013 Unknown [facility] January 09, 2014 STOMACH PAIN [facility] January 29, 2014 Problems Problem Type Condition ICD-9 Code Onset Dates Condition Status Assessment DVT (deep venous thrombosis) 453.40 Active Assessment Tobacco abuse counseling V65.42 Active Assessment Abdominal hernia 553.9 Active Assessment Tobacco abuse 305.1 Active Problem GERD (gastroesophageal reflux 530.81 Active disease) Problem PE (pulmonary embolism) 415.19 Active Problem Vertigo 780.4 Active Problem Hyperlipidemia 272.4 Active Problem DVT (deep venous thrombosis) 453.40 Active Assessment Hyperlipidemia 272.4 Active Assessment Obesity 278.00 Active Problem Smoker 305.1 Active Assessment Body Mass Index 39.0-39.9, adult V85.39 Active Problem Depression 311 Active Problem Diabetes 250.00 Active Problem Hypertension 401.9 Active Problem Hypothyroid 244.9 Active Assessment Vertigo 780.4 Active Assessment PE (pulmonary embolism) 415.19 Active Assessment Smoker 305.1 Active Assessment GERD (gastroesophageal reflux 530.81 Active disease) Assessment Hypothyroid 244.9 Active Assessment Hypertension 401.9 Active Assessment Diabetes 250.00 Active Assessment Depression 311 Active Medications Medication Code System Code Instructions Start End Date Status Dosage Date [facility] 45874-42 [facility]-40 MG Active TAKE 1 39-30 TABLET BY MOUTH EVERY DAY BusPIRone HCl [facility]AN 94271-06 10 MG Active TAKE 1 54-01 TABLET BY MOUTH TWICE A DAY NEEDED Lisinopril MEDISPAN 52388-31 5 MG Orally Once Active 1 tablet 66-01 a day [place] Thyroid [facility] 71780-71 120 MG Orally Active 1 tablet 61-01 Once a day Folic Acid [facility] 50004-41 800 MCG Orally Active 1 tablet 43-01 Once a day Venlafaxine HCl [facility] 67594-07 75 mg Orally Active 2 tablets 82-01 daily IBU-200 [facility] 53745-27 200 MG Orally Active 1 tablet 47-60 every 6 hrs as needed NO OTC meds Unknown 0 Active Unknown taken Warfarin Sodium [facility] 51239-02 4 mg Orally Active 1 tablet 04-01 daily Glimepiride [facility] 42234-31 4 MG Active TAKE 1 56-01 TABLET BY MOUTH EVERY DAY Social History Social History Element Qualifiers Date [...] employed. [employer] January 29, 2014 Vital Signs Date/Time: January 29, 2014 Weight 248 lbs Height 66.5 in Cardiac Monitoring Heart Rate 62 /min Blood Pressure Diastolic 84 mm Hg Blood Pressure Systolic 132 mm Hg Summary Purpose eClinicalWorks Submission
--- OUTSIDE RECORDS SUMMARY | 2019-05-25 23:27 | XMS REPORT ---
:1965 Author Organization eClinicalWorks Care Team Providers Name Role Phone Madelaine Philippe Provider Role Unavailable Encounters Encounter Location Date REFILL [facility] January 15, 2014 Prior Auth [facility] January Unknown [facility] January 29, [address] [facility] Jun 13, 2013 Test results [facility] Jun 27, 2013 Unknown [facility] January 09, 2014 Problems Problem Type Condition ICD-9 Code Onset Dates Condition Status Problem GERD (gastroesophageal reflux 530.81 Active disease) Problem PE (pulmonary embolism) 415.19 Active Problem Vertigo 780.4 Active Problem Hyperlipidemia 272.4 Active Problem DVT (deep venous thrombosis) 453.40 Active Problem Smoker 305.1 Active Problem Depression 311 Active Problem Diabetes 250.00 Active Problem Hypertension 401.9 Active Problem Hypothyroid 244.9 Active Social History Social History Element Qualifiers [...] 29, 2014 Weight 248 lbs Height 66.5 inches Cardiac Monitoring Heart Rate 62 Beats per Minute Blood Pressure Diastolic 84 mm Hg Blood Pressure Systolic 132 mm Hg Summary Purpose eClinicalWorks Submission
--- OUTSIDE RECORDS SUMMARY | 2019-05-25 23:28 | XMS REPORT ---
:1965 Author Organization eClinicalWorks Care Team Providers Name Role Phone Madelaine Philippe Provider Role Unavailable Encounters Encounter Location Date REFILL [facility] January 15, 2014 [facility] Prior Auth [facility] and January 16, 2014 [facility] Unknown [facility] and January 29, 2014 [facility] Test results [facility] and January 30, 2014 [facility] PHYSICAL [facility] and Jun 13, 2013 [facility] Test results [facility] and Jun 27, 2013 [facility] Unknown [facility] and January 09, 2014 [facility] REFILL [facility] and March 21, 2014 [facility] STOMACH PAIN [facility] and January 29, 2014 [facility] Bad Cough [facility] and March 08, 2014 [facility] ABDOMINAL PAIN [facility] and Aug 21, 2014 [facility] Unknown [facility] and Aug 27, 2014 [facility] 1 day follow up [facility] and Aug 22, 2014 [facility] 2 DAY FOLLOW UP [facility] and Aug 24, 2014 [facility] 1 day follow-up/ leg is still [facility] and April 19, 2014 swollen [facility] Unknown [facility] and Aug 21, 2014 [facility] leg swelling [facility] and April 18, 2014 [facility] Test results [facility] and April 24, 2014 [facility] Problems Problem Type Condition ICD-9 Code Onset Dates Condition Status Problem PE (pulmonary embolism) 415.19 Active Problem Depression 311 Active Problem Diabetes 250.00 Active Problem Diverticulosis 562.10 Active Problem Vitamin d deficiency 268.9 Active Problem BMI 40.0-44.9, adult V85.41 Active Problem DVT (deep venous thrombosis) 453.40 Active Problem Hypothyroid 244.9 Active Problem Morbid obesity 278.01 Active Problem Hyperlipidemia 272.4 Active Problem Essential hypertension, benign 401.1 Active Problem GERD (gastroesophageal reflux 530.81 Active disease) Problem Vertigo 780.4 Active Medications Medication Code System Code Instructions Start End Date Status Dosage Date Flagyl MEDISPAN 55729-485 500 mg Orally Aug 21, Aug 31, Active as directed 1-31 twice a day (bid) 2013 2013 Cipro MEDISPAN 82988-244 500 mg Orally Aug 21, Aug 31, Active 1 tablet 4-01 every 12 hrs 2013 2013 Social History Social History Element Qualifiers Date Reported Depression Screening: . 01/2014Aug 24, 2014 Flu Vaccine: . no Aug 24, 2014 Last Colonoscopy: . 2011Aug 24, 2014 children . 2 Aug 24, 2014 Tobacco Use: . Are you a: former smoker quit 21 Aug 24, 2014 days ago, smoked 20-30 years Use of recreational / street drugs? . Answer: No Aug 24, 2014 Marital Status: . Aug 24, 2014 Do you drink alcohol? . Status: Yes, How often? Socially Aug 24, 2014 Occupation: employed. [employer] Aug 24, 2014 Summary Purpose eClinicalWorks Submission
--- OUTSIDE RECORDS SUMMARY | 2019-05-25 23:28 | XMS REPORT ---
:1965 Author Organization eClinicalWorks Care Team Providers Name Role Phone Nilda Alem Provider Role Unavailable Encounters Encounter Location Date REFILL [facility] January 15, 2014 [facility] Prior Auth [facility] and January 16, 2014 [facility] Unknown [facility] and January 29, 2014 [facility] Test results [facility] and January 30, 2014 [facility] PHYSICAL [facility] and Jun 13, 2013 [facility] Test results [facility] and Jun 27, 2013 [facility] Unknown [facility] and January 09, 2014 [facility] REFILL [facility] and March 21, 2014 [facility] STOMACH PAIN [facility] and January 29, 2014 [facility] Bad Cough [facility] and March 08, 2014 [facility] 1 day follow-up/ leg is still [facility] and April 19, 2014 swollen [facility] leg swelling [facility] and April 18, 2014 [facility] Test results [facility] and April 24, 2014 [facility] Problems Problem Type Condition ICD-9 Code Onset Dates Condition Status Problem Vertigo 780.4 Active Problem Diabetes 250.00 Active Problem PE (pulmonary embolism) 415.19 Active Problem Essential hypertension, benign 401.1 Active Problem GERD (gastroesophageal reflux 530.81 Active disease) Problem Morbid obesity 278.01 Active Problem BMI 40.0-44.9, adult V85.41 Active Problem Vitamin d deficiency 268.9 Active Problem Hypothyroid 244.9 Active Problem Depression 311 Active Problem Hyperlipidemia 272.4 Active Problem DVT (deep venous thrombosis) 453.40 Active Medications Medication Code System Code Instructions Start End Date Status Dosage Date Vitamin D MEDISPAN 12542-65 53543 UNIT April 24Oct 21, Active 1 capsule (Ergocalciferol 94-01 Orally once per 2013 2014 ) week Social History Social History Element Qualifiers Date Reported Depression Screening: . 01/2014April 19, 2014 Flu Vaccine: . no April 19, 2014 Last Colonoscopy: . 2011April 19, 2014 children . 2 April 19, 2014 Tobacco Use: . Are you a: former smoker quit April 19, 2014 days ago, smoked 20-30 years Use of recreational / street drugs? . Answer: No April 19, 2014 Marital Status: . April 19, 2014 Do you drink alcohol? . Status: Yes, How often? Socially April 19, 2014 Occupation: employed. [employer] April 19, 2014 Summary Purpose eClinicalWorks Submission
--- OUTSIDE RECORDS SUMMARY | 2019-05-25 23:28 | XMS REPORT ---
:1965 Author Organization eClinicalWorks Care Team Providers Name Role Phone Alem Munguia Provider Role Unavailable Allergies, Adverse Reactions, Alerts Substance Reaction Event Type Adhesive Bandages Info Not Available Drug Allergy Keflex abdomen pain Drug Allergy Doxycycline Hyclate abdomen pain Drug Allergy Encounters Encounter Location Date REFILL [facility] and January 15, 2014 [facility] Prior Auth [facility] and January 16, 2014 [facility] Unknown [facility] and January 29, 2014 [facility] Test results [facility] and January 30, 2014 [facility] PHYSICAL [facility] and Jun 13, 2013 [facility] Test results [facility] and Jun 27, 2013 [facility] Unknown [facility] and January 09, 2014 [facility] REFILL [facility] and March 21, 2014 [facility] STOMACH PAIN [facility] and January 29, 2014 [facility] Bad Cough [facility] and March 08, 2014 [facility] 1 day follow-up/ leg is still [facility] and April 19, 2014 swollen [facility] leg swelling [facility] and April 18, 2014 [facility] Test results [facility] and April 24, 2014 [facility] Problems Problem Type Condition ICD-9 Code Onset Dates Condition Status Assessment BMI 40.0-44.9, adult V85.41 Active Problem Essential hypertension, benign 401.1 Active Assessment Morbid obesity 278.01 Active Problem GERD (gastroesophageal reflux 530.81 Active disease) Assessment Hyperlipidemia 272.4 Active Problem Vertigo 780.4 Active Problem Diabetes 250.00 Active Problem PE (pulmonary embolism) 415.19 Active Problem Morbid obesity 278.01 Active Problem BMI 40.0-44.9, adult V85.41 Active Assessment Vertigo 780.4 Active Assessment GERD (gastroesophageal reflux 530.81 Active disease) Problem Vitamin d deficiency 268.9 Active Assessment Essential hypertension, benign 401.1 Active Problem Hypothyroid 244.9 Active Problem Depression 311 Active Problem Hyperlipidemia 272.4 Active Problem DVT (deep venous thrombosis) 453.40 Active Assessment Depression 311 Active Assessment Hypothyroid 244.9 Active Assessment PE (pulmonary embolism) 415.19 Active Assessment Diabetes 250.00 Active Assessment Candidal dermatitis 112.3 Active Assessment Edema 782.3 Active Assessment Vitamin d deficiency 268.9 Active Assessment DVT (deep venous thrombosis) 453.40 Active Medications Medication Code System Code Instructions Start End Date Status Dosage Date Lisinopril MEDISPAN 25964-51 5 MG Orally Once Active 1 tablet 66-01 a day Warfarin Sodium MEDISPAN 79675-26 5 MG Orally Active 1 tablet 05-01 daily Diflucan MEDISPAN 43622-29 150 MG Orally April 19April 22, Active 1 tablet 00-79 Once a day 2013 2013 NO OTC meds Unknown 0 Active Unknown taken Venlafaxine HCl MEDISPAN 61511-94 75 mg Orally Active 2 tablets 82-01 daily Glimepiride MEDISPAN 90235-76 4 MG Active TAKE 1 56-01 TABLET BY MOUTH EVERY DAY [place] MEDISPAN 42829-92 5-0.15 % Active Unknown Medicated Body 108 Externally Klor-Con M20 MEDISPAN 85356-13 20 MEQ Orally April 19, May 19, Active 1 tablet 58-01 daily 2013 2013 Lasix MEDISPAN 70008-68 20 mg Orally April 19, Active 1 tablet 67-10 Once a day 2013 [place] Thyroid MEDISPAN 53814-41 120 MG Orally Active 1 tablet 61-01 Once a day Social History Social History Element Qualifiers Date Reported Depression Screening: . 01/2014April 19, 2014 Flu Vaccine: . no April 19, 2014 Last Colonoscopy: . 2011April 19, 2014 children . 2 April 19, 2014 Tobacco Use: . Are you a: former smoker quit 21 April 19, 2014 days ago, smoked 20-30 years Use of recreational / street drugs? . Answer: No April 19, 2014 Marital Status: . April 19, 2014 Do you drink alcohol? . Status: Yes, How often? Socially April 19, 2014 Occupation: employed. [employer] April 19, 2014 Vital Signs Date/Time: April 19, 2014 Weight 266 lbs Height 66.5 in Cardiac Monitoring Heart Rate 112 /min Blood Pressure Diastolic 70 mm Hg Blood Pressure Systolic 126 mm Hg Results PULSE OXIMETRY Vitamin D, 25-Hydroxy Vitamin D, 25-Hydroxy(-30.0-100.0 ng/mL) 12.6 Summary Purpose eClinicalWorks Submission
--- OUTSIDE RECORDS SUMMARY | 2019-05-25 23:28 | XMS REPORT ---
:1965 Author Organization eClinicalWorks Care Team Providers Name Role Phone Federica Mckeon Provider Role Unavailable Encounters Encounter Location Date REFILL [facility] and March 21, 2014 [facility] ABDOMINAL PAIN [facility] and Aug 21, 2014 [facility] Unknown [facility] and Aug 27, 2014 [facility] 1 day follow up [facility] and Aug 22, 2014 [facility] 2 DAY FOLLOW UP [facility] and Aug 24, 2014 [facility] 1 day follow-up/ leg is still [facility] and April 19, 2014 swollen [facility] Unknown [facility] and Aug 21, 2014 [facility] leg swelling [facility] and April 18, 2014 [facility] Test results [facility] and April 24, 2014 [facility] COUGH [facility] and Nov 30, 2014 [facility] REFILL [facility] and January 15, 2014 [facility] Prior Auth [facility] and January 16, 2014 [facility] Unknown [facility] and January 29, 2014 [facility] Test results [facility] and January 30, 2014 [facility] PHYSICAL [facility] and Jun 13, 2013 [facility] Test results [facility] and Jun 27, 2013 [facility] Unknown [facility] and January 09, 2014 [facility] Follow-Up [facility] and December 19, 2014 [facility] FOLLOW-UP [facility] and December 11, 2014 [facility] STOMACH PAIN [facility] and January 29, 2014 [facility] Bad Cough [facility] and March 08, 2014 [facility] [place] on Esomeprazole 40mg [facility] and December 19, 2014 [facility] [place] on Crestor 10mg [facility] and December 19, 2014 [facility] HOSP FOLLOW UP [facility] and April 17, 2015 [facility] labs [facility] and April 26, 2015 [facility] Problems Problem Type Condition ICD-9 Code Onset Dates Condition Status Problem Hypothyroid 244.9 Active Problem Hyperlipidemia 272.4 Active Problem DVT (deep venous thrombosis) 453.40 Active Problem Barretts esophagus 530.85 Active Problem Chronic anticoagulation V58.61 Active Problem Diabetes type 2, uncontrolled 250.02 Active Problem Vitamin d deficiency 268.9 Active Problem Morbid obesity 278.01 Active Problem BMI 40.0-44.9, adult V85.41 Active Problem Diverticulosis 562.10 Active Problem Vertigo 780.4 Active Problem PE (pulmonary embolism) 415.19 Active Problem Essential hypertension, benign 401.1 Active Problem Diabetes 250.00 Active Problem GERD (gastroesophageal reflux 530.81 Active disease) Problem Depression 311 Active Medications Medication Code System Code Instructions Start End Status Dosage Date Date [employer] [address]-36 90 MG Orally April 29, Active 1 tablet Thyroid Once a day, 2014 minutes before first meal on an empty stomach [employer] 35823043665 120 MG Orally Inactive 1 tablet Thyroid Once a day Social History Social History Element Qualifiers Date Reported Depression Screening: . negative April 17, 2015 Flu Vaccine: . no April 17, 2015 Last Colonoscopy: . 2011April 17, 2015 children . 2 April 17, 2015 Tobacco Use: . Are you a: former smoker quit April 17, 2015 days ago, smoked 20-30 years Use of recreational / street drugs? . Answer: No April 17, 2015 Marital Status: . April 17, 2015 Do you drink alcohol? . Status: Yes, How often? Socially April 17, 2015 Occupation: employed. [employer] April 17, 2015 Summary Purpose eClinicalWorks Submission
--- OUTSIDE RECORDS SUMMARY | 2019-05-25 23:28 | XMS REPORT ---
:1965 Author Organization eClinicalWorks Care Team Providers Name Role Phone Federica Mckeon Provider Role Unavailable Encounters Encounter Location Date REFILL [facility] and March 21, 2014 [facility] ABDOMINAL PAIN [facility] and Aug 21, 2014 [facility] Unknown [facility] and Aug 27, 2014 [facility] 1 day follow up [facility] and Aug 22, 2014 [facility] 2 DAY FOLLOW UP [facility] and Aug 24, 2014 [facility] 1 day follow-up/ leg is still [facility] and April 19, 2014 swollen [facility] Unknown [facility] and Aug 21, 2014 [facility] leg swelling [facility] and April 18, 2014 [facility] Test results [facility] and April 24, 2014 [facility] COUGH [facility] and Nov 30, 2014 [facility] REFILL [facility] and January 15, 2014 [facility] Prior Auth [facility] and January 16, 2014 [facility] Unknown [facility] and January 29, 2014 [facility] Test results [facility] and January 30, 2014 [facility] PHYSICAL [facility] and Jun 13, 2013 [facility] Test results [facility] and Jun 27, 2013 [facility] Unknown [facility] and January 09, 2014 [facility] Follow-Up [facility] and December 19, 2014 [facility] FOLLOW-UP [facility] and December 11, 2014 [facility] STOMACH PAIN [facility] and January 29, 2014 [facility] Bad Cough [facility] and March 08, 2014 [facility] labs [facility] and May 06, 2015 [facility] [place] on Esomeprazole 40mg [facility] and December 19, 2014 [facility] [place] on Crestor 10mg [facility] and December 19, 2014 [facility] HOSP FOLLOW UP [facility] and April 17, 2015 [facility] labs [facility] and April 26, 2015 [facility] [...] adult V85.41 Active Problem Diverticulosis 562.10 Active Assessment Hypothyroid 244.9 Active Problem Vertigo 780.4 Active Problem PE (pulmonary embolism) 415.19 Active Problem Essential hypertension, benign 401.1 Active Problem Diabetes 250.00 Active Problem GERD (gastroesophageal reflux 530.81 Active disease) Problem Depression 311 Active Medications Medication Code System Code Instructions Start End Status Dosage Date Date [place] Thyroid MEDISPAN 58049-45 90 MG Orally April 29, Inactive 1 tablet 60-01 Once a day, 30 2014 minutes before first meal on an empty stomach Levothyroxine MEDISPAN 44103-85 125 MCG Orally May 06, Active 1 tablet Sodium 63-00 Once a day, 30 2014 minutes before first meal on an empty stomach Social History Social History Element Qualifiers Date Reported Depression Screening: . negative April 17, 2015 Flu Vaccine: . no April 17, 2015 Last Colonoscopy: . 2012 April 17, 2015 children . 2 April 17, [...]
--- OUTSIDE RECORDS SUMMARY | 2019-05-25 23:28 | XMS REPORT ---
:1965 Author Organization eClinicalWorks Care Team Providers Name Role Phone Alem Munguia Provider Role Unavailable Allergies, Adverse Reactions, Alerts Substance Reaction Event Type Adhesive Bandages Info Not Available Drug Allergy Keflex abdomen pain Drug Allergy Doxycycline Hyclate abdomen pain Drug Allergy Encounters Encounter Location Date REFILL [facility] and January 15, 2014 [facility] Prior Auth [facility] and January 16, 2014 [facility] Unknown [facility] and January 29, 2014 [facility] Test results [facility] and January 30, 2014 [facility] PHYSICAL [facility] and Jun 13, 2013 [facility] Test results [facility] and Jun 27, 2013 [facility] Unknown [facility] and January 09, 2014 [facility] REFILL [facility] and March 21, 2014 [facility] STOMACH PAIN [facility] and January 29, 2014 [facility] Bad Cough [facility] and March 08, 2014 [facility] 1 day follow-up/ leg is still [facility] and April 19, 2014 swollen [facility] leg swelling [facility] and April 18, 2014 [facility] Test results [facility] and April 24, 2014 [facility] Problems Problem Type Condition ICD-9 Code Onset Dates Condition Status Problem Essential hypertension, benign 401.1 Active Assessment BMI 40.0-44.9, adult V85.41 Active Problem GERD (gastroesophageal reflux 530.81 Active disease) Assessment Morbid obesity 278.01 Active Problem Vertigo 780.4 Active Problem Diabetes 250.00 Active Problem PE (pulmonary embolism) 415.19 Active Problem Morbid obesity 278.01 Active Problem BMI 40.0-44.9, adult V85.41 Active Assessment Essential hypertension, benign 401.1 Active Assessment Hyperlipidemia 272.4 Active Problem Vitamin d deficiency 268.9 Active Assessment Vitamin d deficiency 268.9 Active Problem Hypothyroid 244.9 Active Problem Depression 311 Active Problem Hyperlipidemia 272.4 Active Problem DVT (deep venous thrombosis) 453.40 Active Assessment PE (pulmonary embolism) 415.19 Active Assessment Diabetes 250.00 Active Assessment GERD (gastroesophageal reflux 530.81 Active disease) Assessment Vertigo 780.4 Active Assessment DVT (deep venous thrombosis) 453.40 Active Assessment Edema 782.3 Active Assessment Depression 311 Active Assessment Hypothyroid 244.9 Active Medications Medication Code System Code Instructions Start End Status Dosage Date Date Vytorin [facility] 97923088722 10-40 MG Orally Active 1 tablet Once a day Folic Acid [facility] [address]-62 800 MCG Orally Active 1 tablet Once a day [place] Thyroid [facility] [address]-88 120 MG Orally Active 1 tablet Once a day Venlafaxine [facility] [address]-72 75 mg Orally Active 2 tablets HCl daily BusPIRone HCl [facility] [address]-30 10 MG Active TAKE 1 TABLET BY MOUTH TWICE A DAY NEEDED IBU-200 [facility] [address]-66 200 MG Orally Active 1 tablet every 6 hrs as needed Warfarin [facility] [address]-29 5 MG Orally Active 1 tablet Sodium daily Lisinopril [facility] [address]-31 5 MG Orally Active 1 tablet Once a day Glimepiride [facility] 95213788920 4 MG Active TAKE 1 TABLET BY MOUTH EVERY DAY NO OTC meds Unknown 0 Active Unknown taken Warfarin [facility] [address]-74 4 mg Orally Active 1 tablet Sodium daily Social History Social History Element Qualifiers [...] April 19, 2014 Vital Signs Date/Time: April 18, 2014 Weight 264 lbs Height 66.5 in Cardiac Monitoring Heart Rate 76 /min Blood Pressure Diastolic 74 mm Hg Blood Pressure Systolic 118 mm Hg Results TSH TSH(-0.450-4.500 uIU/mL) 0.743 CBC With Differential/Platelet Basos(-0-3 %) 1 MCV(-79-97 fL) 83 Hematocrit(-34.0-46.6 %) 42.1 Eos(-0-5 %) 2 MCHC(-31.5-35.7 g/dL) 32.8 Monocytes(-4-12 %) 6 MCH(-26.6-33.0 pg) 27.2 Lymphs(-14-46 %) 27 Eos (Absolute)(-0.0-0.4 x10E3/uL) 0.2 WBC(-3.4-10.8 x10E3/uL) 9.2 Monocytes(Absolute)(-0.1-0.9 x10E3/uL) 0.6 Lymphs (Absolute)(-0.7-3.1 x10E3/uL) 2.5 Hemoglobin(-11.1-15.9 g/dL) 13.8 Neutrophils (Absolute)(-1.4-7.0 x10E3/uL) 5.9 RBC(-3.77-5.28 x10E6/uL) 5.07 Immature Grans (Abs)(-0.0-0.1 x10E3/uL) 0.0 Immature Granulocytes(-0-2 %) 0 Neutrophils(-40-74 %) 64 Baso (Absolute)(-0.0-0.2 x10E3/uL) 0.1 RDW(-12.3-15.4 %) 14.3 Platelets(-150-379 x10E3/uL) 289 PULSE OXIMETRY Triiodothyronine (T3) Triiodothyronine (T3)(-71-180 ng/dL) 169 B-Type Natriuretic Peptide B-Type Natriuretic Peptide(-0.0-100.0 pg/mL) 4.2 Comp. Metabolic Panel (14) Glucose, Serum(-65-99 mg/dL) 169 BUN(-6-24 mg/dL) 14 Creatinine, Serum(-0.57-1.00 mg/dL) 0.73 Potassium, Serum(-3.5-5.2 mmol/L) 4.3 Chloride, Serum(-97-108 mmol/L) 93 ALT (SGPT)(-0-32 IU/L) 31 AST (SGOT)(-0-40 IU/L) 31 eGFR If NonAfricn Am(- >59 mL/min/1.73) 96 Alkaline Phosphatase, S(-39-117 IU/L) 96 eGFR If Africn Am(- >59 mL/min/1.73) 111 Bilirubin, Total(-0.0-1.2 mg/dL) 0.2 BUN/Creatinine Ratio(-9-23 ) 19 A/G Ratio(-1.1-2.5 ) 1.4 Sodium, Serum(-134-144 mmol/L) 139 Carbon Dioxide, Total(-18-29 mmol/L) 24 Calcium, Serum(-8.7-10.2 mg/dL) 9.2 Protein, Total, Serum(-6.0-8.5 g/dL) 7.4 Albumin, Serum(-3.5-5.5 g/dL) 4.3 Globulin, Total(-1.5-4.5 g/dL) 3.1 Hgb A1c with eAG Estimation Estim. Avg Glu (eAG)(- mg/dL) 126 Hemoglobin A1c(-4.8-5.6 %) 6.0 Microalb/Creat Ratio, Randm Ur Microalb/Creat Ratio(-0.0-30.0 mg/g creat) 4.3 Microalbumin, Urine(-0.0-17.0 ug/mL) 11.8 Creatinine, Urine(-15.0-278.0 mg/dL) 272.8 Summary Purpose eClinicalWorks Submission
--- OUTSIDE RECORDS SUMMARY | 2019-05-25 23:28 | XMS REPORT ---
:1965 Author Organization eClinicalWorks Care Team Providers Name Role Phone Federica Mckeon Provider Role Unavailable Allergies, Adverse Reactions, Alerts Substance Reaction Event Type Adhesive Bandages Info Not Available Drug Allergy Keflex abdomen pain Drug Allergy Doxycycline Hyclate abdomen pain Drug Allergy Encounters Encounter Location Date REFILL [facility] and January 15, 2014 [facility] Prior Auth [facility] and January 16, 2014 [facility] Unknown [facility] and January 29, 2014 [facility] Test results [facility] and January 30, 2014 [facility] PHYSICAL [facility] and Jun 13, 2013 [facility] Test results [facility] and Jun 27, 2013 [facility] Unknown [facility] and January 09, 2014 [facility] REFILL [facility] and March 21, 2014 [facility] Follow-Up [facility] and December 19, 2014 [facility] FOLLOW-UP [facility] and December 11, 2014 [facility] STOMACH PAIN [facility] and January 29, 2014 [facility] Bad Cough [facility] and March 08, 2014 [facility] ABDOMINAL PAIN [facility] and Aug 21, 2014 [facility] Unknown [facility] and Aug 27, 2014 [facility] 1 day follow up [facility] and Aug 22, 2014 [facility] 2 DAY FOLLOW UP [facility] and Aug 24, 2014 [facility] [place] on Esomeprazole 40mg [facility] and December 19, 2014 [facility] 1 day follow-up/ leg is still [facility] and April 19, 2014 swollen [facility] [place] on Crestor 10mg [facility] and December 19, 2014 [facility] Unknown [facility] and Aug 21, 2014 [facility] HOSP FOLLOW UP [facility] and April 17, 2015 [facility] leg swelling [facility] and April 18, 2014 [facility] Test results [facility] and April 24, 2014 [facility] COUGH [facility] and Nov 30, 2014 [facility] Problems Problem Type [...] V85.41 Active Problem Diverticulosis 562.10 Active Assessment Diabetes 250.00 Active Assessment Abdominal infection 567.9 Active Assessment Anticoagulant long-term use V58.61 Active Assessment Fatigue 780.79 Active Problem Vertigo 780.4 Active Problem PE (pulmonary embolism) 415.19 Active Problem Essential hypertension, benign 401.1 Active Problem Diabetes 250.00 Active Problem GERD (gastroesophageal reflux 530.81 Active disease) Problem Depression 311 Active Medications Medication Code System Code Instructions Start End Status Dosage Date Date Vitamin D [facility] [address]-03 [address] UNIT December Active 1 capsule (Ergocalcifero Orally once a 2014 07, l) 2014 Nexium [facility] [address]-97 40 mg Orally December Active 1 capsule Once a day 2014 Lisinopril [facility] [address]-77 5 MG Orally December Active 1 tablet Once a day 2014 Protonix [facility] 27640106181 40 MG Active TAKE 1 TABLET BY MOUTH EVERY DAY Warfarin [facility] [address]-15 5 MG Orally Active 1 tablet Sodium daily Glimepiride [facility] 95963589853 4 mg Orally Active 1 tablet Once a day (must see doctor before next refill) MetFORMIN HCl [facility] [address]-22 500 mg Orally December Active 2 tablets ER (MOD) Once a day 2014 with evening meal Carvedilol [facility] [address]-11 6.25 MG Orally December Active 1 tablet Twice a day 2014 with food [place] Thyroid [facility] 98458833273 120 MG Orally Active 1 tablet Once a day Zofran [facility] [address]-13 4 MG Orally Active 2 tablets Once a day Venlafaxine [facility] 11290995349 75 mg Orally Active 2 tablets HCl daily Crestor [facility] [address]-46 10 mg Orally December Active 1 tablet Once a day 2014 Social History Social History Element Qualifiers Date [...] employed. [employer] April 17, 2015 Vital Signs Date/Time: April 17, 2015 Weight 234 lbs Height 66.5 in Temperature 98.0 F Cardiac Monitoring Heart Rate 94 /min Blood Pressure Diastolic 70 mm Hg Blood Pressure Systolic 110 mm Hg Results CBC Platelets(- ) 249 NEUTROPHILS(- ) MID-0.6,GRA-4.6 MCHC(- ) 35.2 MCH(- ) 28.7 MCV(- ) 81.6 WBC(- ) 6.9 RDW(- ) 15.0H RBC(- ) 4.18 Hemoglobin(- ) 12.0 Hematocrit(- ) 34.1L Summary Purpose eClinicalWorks Submission
--- OUTSIDE RECORDS SUMMARY | 2019-05-25 23:29 | XMS REPORT ---
:1965 Author Organization eClinicalWorks Care Team Providers Name Role Phone Roxanne Pantoja Provider Role Unavailable Encounters Encounter Location Date REFILL [facility] and March 21, 2014 [facility] Refill [facility] and February 05, 2016 [facility] ABDOMINAL PAIN [facility] and Aug 21, 2014 [facility] Unknown [facility] and Aug 27, 2014 [facility] 1 day follow up [facility] and Aug 22, 2014 [facility] 2 DAY FOLLOW UP [facility] and Aug 24, 2014 [facility] 1 day follow-up/ leg is still [facility] and April 19, 2014 swollen [facility] Unknown [facility] and Aug 21, 2014 [facility] leg swelling [facility] and April 18, 2014 [facility] Test results [facility] and April 24, 2014 [facility] COUGH [facility] and Nov 30, 2014 [facility] REFILL [facility] and January 15, 2014 [facility] Prior Auth [facility] and January 16, 2014 [facility] Unknown [facility] and January 29, 2014 [facility] Test results [facility] and January 30, 2014 [facility] PHYSICAL [facility] and Jun 13, 2013 [facility] Test results [facility] and Jun 27, 2013 [facility] Unknown [facility] and January 09, 2014 [facility] Follow-Up [facility] and December 19, 2014 [facility] FOLLOW-UP [facility] and December 11, 2014 [facility] STOMACH PAIN [facility] and January 29, 2014 [facility] Bad Cough [facility] and March 08, 2014 [facility] labs [facility] and May 06, 2015 [facility] Unknown [facility] and January 24, 2016 [facility] insurance info [facility] and January 30, 2016 [facility] Refill [facility] and January 31, 2016 [facility] [place] on Esomeprazole 40mg [facility] and December 19, 2014 [facility] [place] on Crestor 10mg [facility] and December 19, 2014 [facility] HOSP FOLLOW UP [facility] and April 17, 2015 [facility] labs [facility] and April 26, 2015 [facility] Problems Problem Type Condition ICD-9 Code Onset Dates Condition Status Problem Diverticulosis of large K57.30 Active intestine without hemorrhage Problem Benign essential hypertension I10 Active Problem Vitamin D deficiency E55.9 Active Problem Acquired hypothyroidism E03.9 Active Problem Depression, unspecified F32.9 Active depression type Problem Barretts esophagus K22.70 Active Problem Gastroesophageal reflux disease, K21.9 Active esophagitis presence not specified Problem Other and unspecified E78.5 Active hyperlipidemia Problem Type 2 diabetes mellitus without E11.9 Active complication Problem PE (pulmonary embolism) I26.99 Active Problem Primary insomnia F51.01 Active Problem DVT (deep venous thrombosis) I82.409 Active Problem Chronic anticoagulation Z79.01 Active Problem Vertigo R42 Active Medications Medication Code System Code Instructions Start End Status Dosage Date Date Levothyroxine MEDISPAN 86311232526 125 MCG Orally Active 1 tablet Sodium Once a day, 30 minutes before first meal on an empty stomach Social History Social History Element Qualifiers Date Reported Depression Screening: . negative January 31, 2016 Flu Vaccine: . no January 31, 2016 Last Colonoscopy: . 2011January 31, 2016 children . 2 January 31, 2016 Tobacco Use: . Are you a: former smoker quit January 31, 2016 21 days ago, smoked 20-30 years Use of recreational / street drugs? . Answer: No January 31, 2016 Marital Status: . January 31, 2016 Do you drink alcohol? . Status: Yes, How often? January 31, 2016 Socially Occupation: employed. [employer] January 31, 2016 Summary Purpose eClinicalWorks Submission
--- OUTSIDE RECORDS SUMMARY | 2019-05-25 23:29 | XMS REPORT ---
:1965 Author Organization eClinicalWorks Care Team Providers Name Role Phone Jose Maria Castro Provider Role Unavailable Allergies, Adverse Reactions, Alerts Substance Reaction Event Type Adhesive Bandages Info Not Available Drug Allergy Keflex abdomen pain Drug Allergy Doxycycline Hyclate abdomen pain Drug Allergy Encounters Encounter Location Date REFILL [facility] and January 15, 2014 [facility] Prior Auth [facility] and January 16, 2014 [facility] Unknown [facility] and January 29, 2014 [facility] Test results [facility] and January 30, 2014 [facility] PHYSICAL [facility] and Jun 13, 2013 [facility] Test results [facility] and Jun 27, 2013 [facility] Unknown [facility] and January 09, 2014 [facility] REFILL [facility] and March 21, 2014 [facility] STOMACH PAIN [facility] and January 29, 2014 [facility] Bad Cough [facility] and March 08, 2014 [facility] ABDOMINAL PAIN [facility] and Aug 21, 2014 [facility] Unknown [facility] and Aug 27, 2014 [facility] 1 day follow up [facility] and Aug 22, 2014 [facility] 2 DAY FOLLOW UP [facility] and Aug 24, 2014 [facility] 1 day follow-up/ leg is still [facility] and April 19, 2014 swollen [facility] Unknown [facility] and Aug 21, 2014 [facility] leg swelling [facility] and April 18, 2014 [facility] Test results [facility] and April 24, 2014 [facility] Problems Problem Type Condition ICD-9 Code Onset Dates Condition Status Problem Diabetes 250.00 Active Problem Hypothyroid 244.9 Active Problem Depression 311 Active Problem BMI 40.0-44.9, adult V85.41 Active Assessment Chronic anticoagulation V58.61 Active Problem Diverticulosis 562.10 Active Problem Chronic anticoagulation V58.61 Active Problem Hyperlipidemia 272.4 Active Problem DVT (deep venous thrombosis) 453.40 Active Problem Vitamin d deficiency 268.9 Active Problem Morbid obesity 278.01 Active Assessment PE (pulmonary embolism) 415.19 Active Assessment Morbid obesity 278.01 Active Assessment Urinary tract infection 599.0 Active Assessment DVT (deep venous thrombosis) 453.40 Active Problem Essential hypertension, benign 401.1 Active Problem GERD (gastroesophageal reflux 530.81 Active disease) Assessment Diverticulosis 562.10 Active Problem Vertigo 780.4 Active Assessment Acute diverticulitis 562.11 Active Problem PE (pulmonary embolism) 415.19 Active Medications Medication Code System Code Instructions Start End Status Dosage Date Date [facility]yl [facility] [address]-94 20 MG Orally Aug 22Aug Active 1 tablet Four times a 2013 Vitamin D [facility] [address]-01 42163 UNIT April 24Oct Active 1 capsule (Ergocalcifero Orally once per 2013 11, l) week 2014 Lisinopril [facility] [address]-91 5 MG Orally Active 1 tablet Once a day [facility] [address]-32 5 MG Orally Active 1 tablet Sodium daily Ultram ER [facility] [address]-71 100 mg Orally Aug 21, Aug Active 1 tablet Once a day 2013 Venlafaxine [facility] [address]-57 75 mg Orally Active 2 tablets HCl daily Glimepiride [facility] 39964474108 4 MG Active TAKE 1 TABLET BY MOUTH EVERY DAY Cipro [facility] [address]-75 500 mg Orally Aug 21, Aug Active 1 tablet every 12 hrs 2013 Flagyl [facility] [address]-42 500 mg Orally Aug 21, Aug Active as twice a day 2013 (bid) 2013 [place]antine Thyroid [facility] [address]-09 120 MG Orally Active 1 tablet Once a day Social History Social History [...] employed. [employer] Aug 24, 2014 Vital Signs Date/Time: Aug 24, 2014 Weight 269 lbs Height 66.5 in Cardiac Monitoring Heart Rate 112 /min Blood Pressure Diastolic 80 mm Hg Blood Pressure Systolic 140 mm Hg Summary Purpose eClinicalWorks Submission
--- OUTSIDE RECORDS SUMMARY | 2019-05-25 23:29 | XMS REPORT ---
[...] obesity 278.01 Active Problem Hyperlipidemia 272.4 Active Assessment Urinary tract infection 599.0 Active Assessment Hematuria 599.70 Active Problem Essential hypertension, benign 401.1 Active Assessment Chronic anticoagulation V58.61 Active Problem GERD (gastroesophageal reflux 530.81 Active disease) Assessment Diverticulitis 562.11 Active Problem Vertigo 780.4 Active Medications Medication Code System Code Instructions Start End Status Dosage Date Date [facility]in [facility] [address]-34 5 MG Orally Active 1 tablet Sodium daily Venlafaxine [facility] [address]-64 75 mg Orally Active 2 tablets HCl daily Bentyl [facility] [address]-94 20 MG Orally Aug 22, Aug Active 1 tablet Four times a 2013 Cipro [facility] [address]-73 500 mg Orally Aug 21, Nov Active 1 tablet every 12 hrs 2013 [place] [facility] [address]-52 120 MG Orally Active 1 tablet Once a day Lisinopril [facility] [address]-89 5 MG Orally Active 1 tablet Once a day Flagyl [facility] [address]-18 500 mg Orally Aug 21, Nov Active as twice a day 2013, directed (bid) 2013 Ultram ER [facility] [address]-04 100 mg Orally Aug 21, Aug Active 1 tablet Once a day 2013 Glimepiride [facility] 10291922392 4 MG Active TAKE 1 TABLET BY MOUTH EVERY DAY Vitamin D [facility] [address]-52 29456 UNIT April 24Oct Active 1 capsule (Ergocalcifero Orally once per 2013 11, l) week 2014 Social History Social History Element Qualifiers Date Reported Depression Screening: . 01/2014Aug 24, 2014 Flu Vaccine: . no Aug 24, 2014 Last Colonoscopy: . 2011Aug 24, 2014 children . 2 Aug 24, 2014 Tobacco Use: . Are you a: former smoker quit Aug 24, 2014 days ago, smoked 20-30 years Use of recreational / street drugs? . Answer: No Aug 24, 2014 Marital Status: . Aug 24, 2014 Do you drink alcohol? . Status: Yes, How often? Socially Aug 24, 2014 Occupation: employed. [employer] Aug 24, 2014 Vital Signs Date/Time: Aug 22, 2014 Weight 266 lbs Height 66.5 in Temperature 98.5 F Cardiac Monitoring Heart Rate 82 /min Blood Pressure Diastolic 70 mm Hg Blood Pressure Systolic 118 mm Hg Summary Purpose eClinicalWorks Submission
--- OUTSIDE RECORDS SUMMARY | 2019-05-25 23:29 | XMS REPORT ---
:1965 Author Organization eClinicalWorks Care Team Providers Name Role Phone Madelaine Garcia Provider Role Unavailable Encounters Encounter Location Date REFILL [facility] and March 21, 2014 [facility] Unknown [facility] and February 12, 2016 [facility] Blood work-Roxanne [facility] and February 07, 2016 [facility] Refill [facility] and February 05, 2016 [facility] ABDOMINAL PAIN [facility] and Aug 21, 2014 [facility] Unknown [facility] and Aug 27, 2014 [facility] 1 day follow up [facility] and Aug 22, 2014 [facility] 2 DAY FOLLOW UP [facility] and Aug 24, 2014 [facility] 1 day follow-up/ leg is still [facility] and April 19, 2014 swollen [facility] Unknown [facility] and Aug 21, 2014 [facility] leg swelling [facility] and April 18, 2014 [facility] Test results [facility] and April 24, 2014 [facility] COUGH [facility] and Nov 30, 2014 [facility] REFILL [facility] and January 15, 2014 [facility] Prior Auth [facility] and January 16, 2014 [facility] Unknown [facility] and January 29, 2014 [facility] Test results [facility] and January 30, 2014 [facility] PHYSICAL [facility] and Jun 13, 2013 [facility] Test results [facility] and Jun 27, 2013 [facility] Unknown [facility] and January 09, 2014 [facility] Follow-Up [facility] and December 19, 2014 [facility] FOLLOW-UP [facility] and December 11, 2014 [facility] STOMACH PAIN [facility] and January 29, 2014 [facility] Bad Cough [facility] and March 08, 2014 [facility] labs [facility] and May 06, 2015 [facility] Unknown [facility] and January 24, 2016 [facility] insurance info [facility] and January 30, 2016 [facility] Refill [facility] and January 31, 2016 [facility] [place] on Esomeprazole 40mg [facility] and December 19, 2014 [facility] on Crestor 10mg [facility] and December 19, 2014 [facility] HOSP FOLLOW UP [facility] and April 17, 2015 [facility] labs [facility] and April 26, 2015 [facility] [...] Instructions Start Date End Date Status Dosage Lisinopril [facility] [address] 5 MG orally once Active 1 tablet -01 a day Social History Social History Element [...]
--- OUTSIDE RECORDS SUMMARY | 2019-05-25 23:29 | XMS REPORT ---
:1965 Author Organization eClinicalWorks Care Team Providers Name Role Phone Roxanne Pantoja Provider Role Unavailable Allergies, Adverse Reactions, Alerts Substance Reaction Event Type Adhesive Bandages Info Not Available Drug Allergy Keflex abdomen pain Drug Allergy Doxycycline Hyclate abdomen pain Drug Allergy Dilaudid hallucinations Drug Allergy Encounters Encounter Location Date REFILL [facility] and March 21, 2014 [facility] ABDOMINAL PAIN [facility] and Aug 21, 2014 [facility] Unknown [facility] and Aug 27, 2014 [facility] 1 day follow up [facility] and Aug 22, 2014 [facility] 2 DAY FOLLOW UP [facility] and Aug 24, 2014 [facility] 1 day follow-up/ leg is still [facility] and April 19, 2014 swollen [facility] Unknown [facility] and Aug 21, 2014 [facility] leg swelling [facility] and April 18, 2014 [facility] Test results [facility] and April 24, 2014 [facility] COUGH [facility] and Nov 30, 2014 [facility] REFILL [facility] and January 15, 2014 [facility] Prior Auth [facility] and January 16, 2014 [facility] Unknown [facility] and January 29, 2014 [facility] Test results [facility] and January 30, 2014 [facility] PHYSICAL [facility] and Jun 13, 2013 [facility] Test results [facility] and Jun 27, 2013 [facility] Unknown [facility] and January 09, 2014 [facility] Follow-Up [facility] and December 19, 2014 [facility] FOLLOW-UP [facility] and December 11, 2014 [facility] STOMACH PAIN [facility] and January 29, 2014 [facility] Bad Cough [facility] and March 08, 2014 [facility] labs [facility] and May 06, 2015 [facility] Unknown [facility] and January 24, 2016 [facility] insurance info [facility] and January 30, 2016 [facility] Refill [facility] and January 31, 2016 [facility] [place] on Esomeprazole 40mg [facility] and December 19, 2014 [facility] on Crestor 10mg [facility] and December 19, 2014 [facility] HOSP FOLLOW UP [facility] and April 17, 2015 [facility] labs [facility] and April 26, 2015 [facility] Problems Problem Type Condition ICD-9 Code Onset Dates Condition Status Problem Diverticulosis of large K57.30 Active intestine without hemorrhage Problem Benign essential hypertension I10 Active Problem Vitamin D deficiency E55.9 Active Problem Acquired hypothyroidism E03.9 Active Assessment Depression, unspecified F32.9 Active depression type Problem Depression, unspecified F32.9 Active depression type Assessment Gastroesophageal reflux disease, K21.9 Active esophagitis presence not specified Assessment Primary insomnia F51.01 Active Problem Barretts esophagus K22.70 Active Problem Gastroesophageal reflux disease, K21.9 Active esophagitis presence not specified Problem Other and unspecified E78.5 Active hyperlipidemia Problem Type 2 diabetes mellitus without E11.9 Active complication Problem PE (pulmonary embolism) I26.99 Active Assessment Other and unspecified E78.5 Active hyperlipidemia Assessment Type 2 diabetes mellitus without E11.9 Active complication Assessment Vitamin D deficiency E55.9 Active Assessment Benign essential hypertension I10 Active Problem Primary insomnia F51.01 Active Problem DVT (deep venous thrombosis) I82.409 Active Assessment Chronic anticoagulation Z79.01 Active Problem Chronic anticoagulation Z79.01 Active Assessment Acquired hypothyroidism E03.9 Active Problem Vertigo R42 Active Medications Medication Code System Code Instructions Start End Status Dosage Date Date Levothyroxine [facility] 67851490987 125 MCG Orally Active 1 tablet Sodium Once a day, 30 minutes before first meal on an empty stomach Belsomra [facility] [address]-23 10 mg Orally Tangela Active 1 tablet Once a day , at 2016 bedtime as needed Pantoprazole [facility] [address]-30 40 MG Orally Active 1 packet Sodium Once a day Lisinopril [facility] [address]-57 5 MG Active TAKE 1 TABLET BY MOUTH EVERY DAY Warfarin Sodium [facility] [address]-24 5 MG Orally Active 1 tablet daily Venlafaxine HCl [facility] [address]-09 100 MG Orally Active 2 tablets daily Carvedilol [facility] 99756628532 6.25 MG Orally Active 1 tablet Twice a day with food Social History Social History Element Qualifiers Date [...] employed. [employer] January 31, 2016 Vital Signs Date/Time: January 31, 2016 Weight 263 lbs Height 66.5 in Cardiac Monitoring Heart Rate 88 /min Blood Pressure Diastolic 80 mm Hg Blood Pressure Systolic 132 mm Hg Summary Purpose eClinicalWorks Submission
--- OUTSIDE RECORDS SUMMARY | 2019-05-25 23:29 | XMS REPORT ---
:1965 Author Organization eClinicalWorks Care Team Providers Name Role Phone Roxanne Pantoja Provider Role Unavailable Encounters Encounter Location Date REFILL [facility] and March 21, 2014 [facility] Blood work-Roxanne [facility] and February 07, 2016 [facility] Refill [facility] and February 05, 2016 [facility] ABDOMINAL PAIN [facility] and Aug 21, 2014 [facility] Unknown [facility] and Aug 27, 2014 [facility] 1 day follow up [facility] and Aug 22, 2014 [facility] 2 DAY FOLLOW UP [facility] and Aug 24, 2014 [facility] 1 day follow-up/ leg is still [facility] and April 19, 2014 swollen [facility] Unknown [facility] and Aug 21, 2014 [facility] leg swelling [facility] and April 18, 2014 [facility] Test results [facility] and April 24, 2014 [facility] COUGH [facility] and Nov 30, 2014 [facility] REFILL [facility] and January 15, 2014 [facility] Prior Auth [facility] and January 16, 2014 [facility] Unknown [facility] and January 29, 2014 [facility] Test results [facility] and January 30, 2014 [facility] PHYSICAL [facility] and Jun 13, 2013 [facility] Test results [facility] and Jun 27, 2013 [facility] Unknown [facility] and January 09, 2014 [facility] Follow-Up [facility] and December 19, 2014 [facility] FOLLOW-UP [facility] and December 11, 2014 [facility] STOMACH PAIN [facility] and January 29, 2014 [facility] Bad Cough [facility] and March 08, 2014 [facility] labs [facility] and May 06, 2015 [facility] Unknown [facility] and January 24, 2016 [facility] insurance info [facility] and January 30, 2016 [facility] Refill [facility] and January 31, 2016 [facility] [place] on Esomeprazole 40mg [facility] and December 19, 2014 [facility] [place] on Crestor 10mg [facility] and December 19, 2014 [facility] HOSP FOLLOW UP [facility] and April 17, 2015 [facility] labs [facility] and April 26, 2015 [facility] hyperlipidemia Assessment Benign essential hypertension I10 Active Assessment Acquired hypothyroidism E03.9 Active Assessment Vitamin D deficiency E55.9 Active Problem Primary insomnia F51.01 Active Problem DVT (deep venous thrombosis) I82.409 Active Assessment Chronic anticoagulation Z79.01 Active Problem Chronic anticoagulation Z79.01 Active Assessment Type 2 diabetes mellitus without E11.9 Active complication Problem Vertigo R42 Active Medications Medication Code System Code Instructions Start End Status Dosage Date Date Pantoprazole MEDISPAN [address]-82 40 MG Orally Active 1 packet Sodium Once a day Carvedilol [facility] 82373590333 6.25 MG Orally Active 1 tablet Twice a day with food Belsomra MEDISPAN [address]-11 10 mg Orally Tangela Active 1 tablet Once a day 22, at 2016 bedtime as needed Warfarin Sodium [facility] [address]-02 5 MG Orally Active 1 tablet daily Lisinopril [facility] [address]-24 5 MG Active TAKE 1 TABLET BY MOUTH EVERY DAY Levothyroxine [facility] 56048279440 125 MCG Orally Active 1 tablet Sodium Once a day, 30 minutes before first meal on an empty stomach Venlafaxine HCl [facility] 35232373386 75 mg Orally Active 2 tablets daily Social History Social History Element Qualifiers [...] Sales January 31, 2016 Vital Signs Date/Time: February 07, 2016 Blood Pressure Diastolic 64 mm Hg Blood Pressure Systolic 120 mm Hg Height 66.5 in Summary Purpose eClinicalWorks Submission
--- OUTSIDE RECORDS SUMMARY | 2019-05-25 23:29 | XMS REPORT ---
:1965 Author Organization eClinicalWorks Care Team Providers Name Role Phone ~~Alem Munguia Provider Role Unavailable Allergies, Adverse Reactions, Alerts Substance Reaction Event Type Adhesive Bandages Info Not Available Drug Allergy Keflex abdomen pain Drug Allergy Doxycycline Hyclate abdomen pain Drug Allergy Encounters Encounter Location Date REFILL [facility] and January 15, 2014 [facility] Prior Auth [facility] and January 16, 2014 [facility] Unknown [facility] and January 29, 2014 [facility] Test results [facility] and January 30, 2014 [facility] PHYSICAL [facility] and Jun 13, 2013 [facility] Test results [facility] and Jun 27, 2013 [facility] Unknown [facility] and January 09, 2014 [facility] REFILL [facility] and March 21, 2014 [facility] STOMACH PAIN [facility] and January 29, 2014 [facility] Bad Cough [facility] and March 08, 2014 [facility] ABDOMINAL PAIN [facility] and Aug 21, 2014 [facility] Unknown [facility] and Aug 27, 2014 [facility] 1 day follow up [facility] and Aug 22, 2014 [facility] 2 DAY FOLLOW UP [facility] and Aug 24, 2014 [facility] 1 day follow-up/ leg is still [facility] and April 19, 2014 swollen [facility] Unknown [facility] and Aug 21, 2014 [facility] leg swelling [facility] and April 18, 2014 [facility] Test results [facility] and April 24, 2014 [facility] Problems Problem Type Condition ICD-9 Code Onset Dates Condition Status Problem Vertigo 780.4 Active Problem Diabetes 250.00 Active Problem PE (pulmonary embolism) 415.19 Active Problem Vitamin d deficiency 268.9 Active Problem Morbid obesity 278.01 Active Problem Diverticulosis 562.10 Active Problem Hypothyroid 244.9 Active Problem Depression 311 Active Problem Hyperlipidemia 272.4 Active Problem DVT (deep venous thrombosis) 453.40 Active Assessment BMI 40.0-44.9, adult V85.41 Active Assessment Pelvic pain in female 625.9 Active Assessment Hematuria 599.70 Active Problem Essential hypertension, benign 401.1 Active Assessment Morbid obesity 278.01 Active Problem GERD (gastroesophageal reflux 530.81 Active disease) Medications Medication Code System Code Instructions Start End Status Dosage Date Date Landen Levin [facility] [address]192 5-0.15 % Active Unknown Medicated Body Externally NO OTC meds Unknown 0 Active Unknown taken Lisinopril [facility] [address]-16 5 MG Orally Active 1 tablet Once a day Warfarin [facility] [address]-32 5 MG Orally Active 1 tablet Sodium daily Ultram ER [facility] [address]-72 100 mg Orally Aug 21, Aug 31, Active 1 tablet Once a day 2013 2013 Lamar Thyroid [facility] [address]-99 120 MG Orally Active 1 tablet Once a day Advil [facility] [address]-68 200 MG Orally Active 1 tablet every 6 hrs as needed Vitamin D [facility] [address]-37 [address]145 UNIT April 24, Oct 21, Active 1 capsule (Ergocalcifero Orally once per 2013 2014 l) week Vytorin [facility] 59565854102 10-40 MG Orally Active 1 tablet Once a day Venlafaxine [facility] [address]-05 75 mg Orally Active 2 tablets HCl daily Lasix [facility] 82428458529 20 MG Active TAKE 1 TABLET BY MOUTH EVERY DAY Glimepiride [facility] 50687413326 4 MG Active TAKE 1 TABLET BY MOUTH EVERY DAY Social History [...] Aug 24, 2014 Vital Signs Date/Time: Aug 21, 2014 Weight 266 lbs Height 66.5 in Temperature 98.1 F Cardiac Monitoring Heart Rate 76 /min Blood Pressure Diastolic 88 mm Hg Blood Pressure Systolic 142 mm Hg Summary Purpose eClinicalWorks Submission
--- OUTSIDE RECORDS SUMMARY | 2019-05-25 23:29 | XMS REPORT ---
:1965 Author Organization eClinicalWorks Care Team Providers Name Role Phone Madelaine Garcia Provider Role Unavailable Encounters Encounter Location Date REFILL [facility] and March 21, 2014 [facility] Unknown [facility] and February 12, 2016 [facility] Blood work-Roxanne [facility] and February 07, 2016 [facility] Refill [facility] and February 05, 2016 [facility] ABDOMINAL PAIN [facility] and Aug 21, 2014 [facility] Unknown [facility] and Aug 27, 2014 [facility] Cancel Appointment Request [facility] and March 19, 2016 [facility] 1 day follow up [facility] and Aug 22, 2014 [facility] Reschedule Appointment Request [facility] and March 19, 2016 [facility] 2 DAY FOLLOW UP [...] and April 24, 2014 [facility] and Nov 30, 2014 [facility] REFILL [facility] and January [...] January 09, 2014 [facility] Follow-Up [facility] and December 19, 2014 [facility] FOLLOW-UP [facility] and December 11, 2014 [facility] STOMACH PAIN [facility] and January 29, 2014 [facility] Bad Cough [facility] and March 08, 2014 [facility] labs [facility] and May 06, 2015 [facility] Unknown [facility] and January 24, 2016 [facility] insurance info [facility] and January 30, 2016 [facility] Refill [facility] and January 31, 2016 [facility] [place] on Esomeprazole 40mg [facility] and December 19, 2014 [facility] on Crestor 10mg [facility] and December 19, 2014 [facility] HOSP FOLLOW UP [facility] and April 17, 2015 [facility] labs [facility] and April 26, 2015 [facility] Problems Problem Type Condition ICD-9 Code Onset Dates Condition Status Problem Other and unspecified E78.5 Active hyperlipidemia Problem PE (pulmonary embolism) I26.99 Active Problem Gastroesophageal reflux disease, K21.9 Active esophagitis presence not specified Problem Low back pain M54.5 Active Problem Other chronic pain G89.29 Active Problem Type 2 diabetes mellitus with E11.65 Active hyperglycemia, without long-term current use of insulin Problem Depression, unspecified F32.9 Active depression type Problem Type 2 diabetes mellitus without E11.9 Active complication Problem Barretts esophagus K22.70 Active Problem Acquired hypothyroidism E03.9 Active Problem Primary insomnia F51.01 Active Problem Vertigo R42 Active Problem Diverticulosis of large K57.30 Active intestine without hemorrhage Problem DVT (deep venous thrombosis) I82.409 Active Problem Vitamin D deficiency E55.9 Active Problem Chronic anticoagulation Z79.01 Active Problem Benign essential hypertension I10 Active Social History Social History Element Qualifiers Date Reported Depression Screening: . negative February 28, 2016 Flu Vaccine: . no February 28, 2016 Last Colonoscopy: . 2012 February 28, 2016 children . 2 February 28, 2016 Tobacco Use: . Are you a: former smoker quit February 28, 2016 days ago, smoked 20-30 years Use of recreational / street drugs? . Answer: No February 28, 2016 Marital Status: . February 28, 2016 Do you drink alcohol? . Status: Yes, How often? Socially February 28, 2016 Occupation: employed. [employer] February 28, 2016 Summary Purpose eClinicalWorks Submission
--- OUTSIDE RECORDS SUMMARY | 2019-05-25 23:29 | XMS REPORT ---
:1965 Author Organization eClinicalWorks Care Team Providers Name Role Phone Madelaine Garcia Provider Role Unavailable Encounters Encounter Location Date REFILL [facility] and March 21, 2014 [facility] ABDOMINAL PAIN [facility] and Aug 21, 2014 [facility] Unknown [facility] and Aug 27, 2014 [facility] 1 day follow up [facility] and Aug 22, 2014 [facility] 2 DAY FOLLOW UP [facility] and Aug 24, 2014 [facility] 1 day follow-up/ leg is still [facility] and April 19, 2014 swollen [facility] Unknown [facility] and Aug 21, 2014 [facility] leg swelling [facility] and April 18, 2014 [facility] Test results [facility] and April 24, 2014 [facility] COUGH [facility] and Nov 30, 2014 [facility] REFILL [facility] and January 15, 2014 [facility] Prior Auth [facility] and January 16, 2014 [facility] Unknown [facility] and January 29, 2014 [facility] Test results [facility] and January 30, 2014 [facility] PHYSICAL [facility] and Jun 13, 2013 [facility] Test results [facility] and Jun 27, 2013 [facility] Unknown [facility] and January 09, 2014 [facility] Follow-Up [facility] and December 19, 2014 [facility] FOLLOW-UP [facility] and December 11, 2014 [facility] STOMACH PAIN [facility] and January 29, 2014 [facility] Bad Cough [facility] and March 08, 2014 [facility] labs [facility] and May 06, 2015 [facility] Unknown [facility] and January 24, 2016 [facility] insurance info [facility] and January 30, 2016 [facility] [place] on Esomeprazole 40mg [facility] and December 19, 2014 [facility] on Crestor 10mg [facility] and December 19, 2014 [facility] HOSP FOLLOW UP [facility] and April 17, 2015 [facility] labs [facility] and April 26, 2015 [facility] [...] 530.81 Active disease) Problem Depression 311 Active Social History Social History Element Qualifiers Date Reported Depression Screening: . negative April 17, 2015 Flu Vaccine: . no April 17, 2015 Last Colonoscopy: . 2012 April 17, 2015 children . 2 April 17, 2015 Tobacco Use: . Are you a: former smoker quit 21 April 17, 2015 days ago, smoked 20-30 years Use of recreational / street drugs? . Answer: No April 17, 2015 Marital Status: . April 17, 2015 Do you drink alcohol? . Status: Yes, How often? Socially April 17, 2015 Occupation: employed. [employer] April 17, 2015 Summary Purpose eClinicalWorks Submission
--- OUTSIDE RECORDS SUMMARY | 2019-05-25 23:29 | XMS REPORT ---
:1965 Author Organization eClinicalWorks Care Team Providers Name Role Phone Madelaine Philippe Provider Role Unavailable Encounters Encounter Location Date REFILL [facility] and January 15, 2014 [facility] Prior Auth [facility] and January 16, 2014 [facility] Unknown [facility] and January 29, 2014 [facility] Test results [facility] and January 30, 2014 [facility] PHYSICAL [facility] and Jun 13, 2013 [facility] Test results [facility] and Jun 27, 2013 [facility] Unknown [facility] and January 09, 2014 [facility] REFILL [facility] and March 21, 2014 [facility] STOMACH PAIN [facility] and January 29, 2014 [facility] Bad Cough [facility] and March 08, 2014 [facility] ABDOMINAL PAIN [facility] and Aug 21, 2014 [facility] Unknown [facility] and Aug 27, 2014 [facility] 1 day follow up [facility] and Aug 22, 2014 [facility] 2 DAY FOLLOW UP [facility] and Aug 24, 2014 [facility] 1 day follow-up/ leg is still [facility] and April 19, 2014 swollen [facility] Unknown [facility] and Aug 21, 2014 [facility] leg swelling [facility] and April 18, 2014 [facility] Test results [facility] and April 24, 2014 [facility] Problems Problem Type Condition ICD-9 Code Onset Dates Condition Status Problem Diabetes 250.00 Active Problem Hypothyroid 244.9 Active Problem Depression 311 Active Problem BMI 40.0-44.9, adult V85.41 Active Problem Diverticulosis 562.10 Active Problem Chronic anticoagulation V58.61 Active Problem Hyperlipidemia 272.4 Active Problem DVT (deep venous thrombosis) 453.40 Active Problem Vitamin d deficiency 268.9 Active Problem Morbid obesity 278.01 Active Problem Essential hypertension, benign 401.1 Active Problem GERD (gastroesophageal reflux 530.81 Active disease) Problem Vertigo 780.4 Active Problem PE (pulmonary embolism) 415.19 Active Medications Medication Code System Code Instructions Start Date End Date Status Dosage [facility] [address] 2 MG Orally Once Nov 17, Active 1 tablet -01 a day 2013 Social History Social History Element Qualifiers [...]
--- OUTSIDE RECORDS SUMMARY | 2019-05-25 23:29 | XMS REPORT ---
:1965 Author Organization eClinicalWorks Care Team Providers Name Role Phone Madelaine Garcia Provider Role Unavailable Encounters Encounter Location Date REFILL [facility] and March 21, 2014 [facility] ABDOMINAL PAIN [facility] and Aug 21, 2014 [facility] Unknown [facility] and Aug 27, 2014 [facility] 1 day follow up [facility] and Aug 22, 2014 [facility] 2 DAY FOLLOW UP [facility] and Aug 24, 2014 [facility] 1 day follow-up/ leg is still [facility] and April 19, 2014 swollen [facility] Unknown [facility] and Aug 21, 2014 [facility] leg swelling [facility] and April 18, 2014 [facility] Test results [facility] and April 24, 2014 [facility] COUGH [facility] and Nov 30, 2014 [facility] REFILL [facility] and January 15, 2014 [facility] Prior Auth [facility] and January 16, 2014 [facility] Unknown [facility] and January 29, 2014 [facility] Test results [facility] and January 30, 2014 [facility] PHYSICAL [facility] and Jun 13, 2013 [facility] Test results [facility] and Jun 27, 2013 [facility] Unknown [facility] and January 09, 2014 [facility] Follow-Up [facility] and December 19, 2014 [facility] FOLLOW-UP [facility] and December 11, 2014 [facility] STOMACH PAIN [facility] and January 29, 2014 [facility] Bad Cough [facility] and March 08, 2014 [facility] labs [facility] and May 06, 2015 [facility] Unknown [facility] and January 24, 2016 [facility] [place] on Esomeprazole 40mg [facility] and December 19, 2014 [facility] PA on Crestor 10mg [facility] and December 19, 2014 [facility] HOSP FOLLOW UP [facility] and April 17, 2015 [facility] labs [facility] and April 26, 2015 Internal [...]
--- OUTSIDE RECORDS SUMMARY | 2019-05-25 23:30 | XMS REPORT ---
:1965 Author Organization eClinicalWorks Care Team Providers Name Role Phone Roxanne Pantoja Provider Role Unavailable Allergies, Adverse Reactions, Alerts Substance Reaction Event Type Adhesive Bandages Info Not Available Drug Allergy Keflex abdomen pain Drug Allergy Doxycycline Hyclate abdomen pain Drug Allergy Dilaudid hallucinations Drug Allergy Encounters Encounter Location Date REFILL [facility] and March 21, 2014 [facility] Unknown [facility] and February 12, 2016 [facility] Refill [facility] and February 05, 2016 [facility] appt [facility] and March 23, 2016 [facility] ABDOMINAL PAIN [facility] and Aug 21, 2014 [facility] appt [facility] and March 30, 2016 [facility] Unknown [facility] and Aug 27, 2014 [facility] Cancel Appointment Request [facility] and March 19, 2016 [facility] 1 day follow up [facility] and Aug 22, 2014 [facility] Reschedule Appointment Request [facility] and March 19, 2016 [facility] 2 DAY FOLLOW UP [facility] and Aug 24, 2014 [facility] 4 week follow up [facility] and Jun 16, 2016 [facility] 1 day follow-up/ leg is still [facility] and April 19, 2014 swollen [facility] Unknown [facility] and Aug 21, 2014 [facility] appt. [facility] and May 18, 2016 [facility] leg swelling [facility] and April 18, 2014 [facility] Right ear bleeding [facility] and May 19, 2016 [facility] Test results [facility] and April 24, 2014 [facility] COUGH [facility] and Nov 30, 2014 [facility] REFILL [facility] and January 15, 2014 [facility] Prior Auth [facility] and January 16, 2014 [facility] Unknown [facility] and January 29, 2014 [facility] Test results [facility] and January 30, 2014 [facility] PHYSICAL [facility] and Jun 13, 2013 [facility] Test results [facility] and Jun 27, 2013 [facility] Unknown [facility] and January 09, 2014 [facility] Follow-Up [facility] and December 19, 2014 [facility] FOLLOW-UP [facility] and December 11, 2014 [facility] Re:RE:refill and paper to get morris [facility] and Jun 19, 2016 [facility] STOMACH PAIN [facility] and January 29, 2014 [facility] refill and paper to get morris [facility] and Jun 18, 2016 [facility] Bad Cough [facility] and March 08, 2014 [facility] Re:RE:issue [facility] and Jun 22, 2016 [facility] issue [facility] and Jun 22, 2016 [facility] PT/INR and mole [facility] and Jun 23, 2016 [facility] labs [facility] and May 06, 2015 [facility] Unknown [facility] and January 24[facility] 2016 [facility] insurance info [facility] and January 30, 2016 [facility] Refill [facility] and January 31, 2016 [facility] [place] on Esomeprazole 40mg [facility] and December 19, 2014 [facility] on Crestor 10mg [facility] and December 19, 2014 [facility] HOSP FOLLOW UP [facility] and April 17, [address] [facility] and April 26, 2015 [facility] Problems Problem Type Condition ICD-9 Code Onset Dates Condition Status Problem Benign essential hypertension I10 Active Problem Gastroesophageal reflux disease, K21.9 Active esophagitis presence not specified Problem Other and unspecified E78.5 Active hyperlipidemia Problem Low back pain M54.5 Active Problem Other chronic pain G89.29 Active Problem Type 2 diabetes mellitus with E11.65 Active hyperglycemia, without long-term current use of insulin Problem Depression, unspecified F32.9 Active depression type Problem PE (pulmonary embolism) I26.99 Active Problem Barretts esophagus K22.70 Active Problem Acquired hypothyroidism E03.9 Active Assessment Benign essential hypertension I10 Active Assessment Chronic anticoagulation Z79.01 Active Assessment Inflamed skin tag L91.8 Active Assessment Encounter for screening Z12.31 Active mammogram for breast cancer Problem Chronic anticoagulation Z79.01 Active Problem Vertigo R42 Active Problem Primary insomnia F51.01 Active Problem Diverticulosis of large K57.30 Active intestine without hemorrhage Problem DVT (deep venous thrombosis) I82.409 Active Problem Vitamin D deficiency E55.9 Active Medications Medication Code System Code Instructions Start End Status Dosage Date Date Warfarin Sodium [facility] [address]-76 5 MG Orally QD Active 1 tablet M-F Metformin HCl [facility] [address]-55 500 mg Orally Active 2 tablet Twice a day with meals Pantoprazole [facility] [address]-18 40 MG Orally Active 1 packet Sodium Once a day Ergocalciferol [facility] [address]-17 26000 UNIT February 27Aug Active 1 capsule Orally once 2015 16, per week [address] [facility] [address]-65 20 mg Orally April Active 1 tablet Calcium Once a day [address] [facility] 89343370640 10 MG Active TAKE 1/2 TO 1 TABLET BY MOUTH EVERY [address] [facility] 85784031674 6.25 MG Orally Active 1 tablet Twice a day with food Levothyroxine [facility] 03345183333 125 MCG Orally Active 1 tablet Sodium Once a day, 30 minutes before first meal on an empty stomach Warfarin Sodium [facility] [address]-82 4 mg Orally QD May 19, Active 1 tablet Sat and Sun [address] [facility] 42065572892 5 MG Active TAKE 1 TABLET BY MOUTH EVERY DAY Venlafaxine HCl [facility] 54850248422 100 MG Orally Active 1 tablet twice a day (bid) Social History Social History Element Qualifiers Date Reported Depression Screening: . negative Jun 23, 2016 Flu Vaccine: . no Jun 23, 2016 Last Colonoscopy: . 2012 Jun 23, 2016 children . 2 Jun 23, 2016 Tobacco Use: . Are you a: former smoker quit 21 Jun 23, 2016 days ago, smoked 20-30 years Use of recreational / street drugs? . Answer: No Jun 23, 2016 Marital Status: . Jun 23, 2016 Do you drink alcohol? . Status: Yes, How often? Socially Jun 23, 2016 Occupation: employed. [employer] Jun 23, 2016 Vital Signs Date/Time: Jun 23, 2016 Blood Pressure Systolic 125 mm Hg Height 66.5 in Cardiac Monitoring Heart Rate 105 /min Blood Pressure Diastolic 88 mm Hg Results PROTHROMBIN TIME-INR Summary Purpose eClinicalWorks Submission
--- OUTSIDE RECORDS SUMMARY | 2019-05-25 23:30 | XMS REPORT ---
:1965 Author Organization eClinicalWorks Care Team Providers Name Role Phone Madelaine Garcia Provider Role Unavailable Encounters Encounter Location Date REFILL [facility] and March 21, 2014 [facility] Unknown [facility] and February 12, 2016 [facility] Blood work-Roxanne [facility] and February 07, 2016 [facility] Refill [facility] and February 05, 2016 [facility] appt [facility] and March 23, 2016 [facility] ABDOMINAL PAIN [facility] and Aug 21, 2014 [facility] appt [facility] and March 30, 2016 [facility] Unknown [facility] and Aug 27, 2014 [facility] Cancel Appointment Request [facility] and March 19, 2016 [facility] 1 day follow up [facility] and Aug 22, 2014 [facility] Reschedule Appointment Request [facility] and March 19, 2016 [facility] 2 DAY FOLLOW UP [facility] and Aug 24, 2014 [facility] 1 day follow-up/ leg is still [facility] and April 19, 2014 swollen [facility] Unknown [facility] and Aug 21, 2014 [facility] appt. [facility] and May 18, 2016 [facility] leg swelling [facility] and April 18, 2014 [facility] Test results [facility] and April 24, 2014 [facility] COUGH [facility] and Nov 30, 2014 [facility] REFILL [facility] and January 15, 2014 [facility] Prior Auth [facility] and January 16, 2014 [facility] Unknown [facility] and January 29, 2014 [facility] Test results [facility] and January 30, 2014 [facility] PHYSICAL [facility] and Jun 13, 2013 [facility] Test results [facility] and Jun 27, 2013 [facility] Unknown [facility] and January 09, 2014 [facility] Follow-Up [facility] and December 19, 2014 [facility] FOLLOW-UP [facility] and December 11, 2014 [facility] STOMACH PAIN [facility] and January 29, 2014 [facility] Bad Cough [facility] and March 08, 2014 [facility] labs [facility] and May 06, 2015 [facility] Unknown [facility] and January 24, 2016 [facility] insurance info [facility] and January 30, 2016 [facility] Refill [facility] and January 31, 2016 [facility] [place] on Esomeprazole 40mg [facility] and December 19, 2014 [facility] on Crestor 10mg [facility] and December 19, 2014 [facility] HOSP FOLLOW UP [facility] and April 17, 2015 [facility] labs [facility] and April 26, 2015 Internal [...] Are you a: former smoker quit 21 February 28, 2016 days ago, smoked 20-30 years Use of recreational / street drugs? . Answer: No February 28, 2016 Marital Status: . February 28, 2016 Do you drink alcohol? . Status: Yes, How often? Socially February 28, 2016 Occupation: employed. [employer] February 28, 2016 Summary Purpose eClinicalWorks Submission
--- OUTSIDE RECORDS SUMMARY | 2019-05-25 23:30 | XMS REPORT ---
:1965 Author Organization eClinicalWorks Care Team Providers Name Role Phone Roxanne Pantoja Provider Role Unavailable Allergies, Adverse Reactions, Alerts Substance Reaction Event Type Adhesive Bandages Info Not Available Drug Allergy Keflex abdomen pain Drug Allergy Doxycycline Hyclate abdomen pain Drug Allergy Dilaudid hallucinations Drug Allergy Encounters Encounter Location Date REFILL [facility] and March 21, 2014 [facility] Unknown [facility] and February 12, 2016 [facility] Refill [facility] and February 05, 2016 [facility] appt [facility] and March 23, 2016 [facility] ABDOMINAL PAIN [facility] and Aug 21, 2014 [facility] appt [facility] and March 30, 2016 [facility] Unknown [facility] and Aug 27, 2014 [facility] Cancel Appointment Request [facility] and March 19, 2016 [facility] 1 day follow up [facility] and Aug 22, 2014 [facility] Reschedule Appointment Request [facility] and March 19, 2016 [facility] 2 DAY FOLLOW UP [facility] and Aug 24, 2014 [facility] 4 week follow up [facility] and Jun 16, 2016 [facility] 1 day follow-up/ leg is still [facility] and April 19, 2014 swollen [facility] Unknown [facility] and Aug 21, 2014 [facility] appt. [facility] and May 18, 2016 [facility] leg swelling [facility] and April 18, 2014 [facility] Right ear bleeding [facility] and May 19, 2016 [facility] Test results [facility] and April 24, 2014 [facility] COUGH [facility] and Nov 30, 2014 [facility] REFILL [facility] and January 15, 2014 [facility] Prior Auth [facility] and January 16, 2014 [facility] Unknown [facility] and January 29, 2014 [facility] Test results [facility] and January 30, 2014 [facility] PHYSICAL [facility] and Jun 13, 2013 [facility] Test results [facility] and Jun 27, 2013 [facility] Unknown [facility] and January 09, 2014 [facility] Follow-Up [facility] and December 19, 2014 [facility] FOLLOW-UP [facility] and December 11, 2014 [facility] STOMACH PAIN [facility] and January 29, 2014 [facility] Bad Cough [facility] and March 08, 2014 [facility] labs [facility] and May 06, 2015 [facility] Unknown [facility] and January 24, 2016 [facility] insurance info [facility] and January 30, 2016 [facility] Refill [facility] and January 31, 2016 [facility] [place] on Esomeprazole 40mg [facility] and December 19, 2014 [facility] on Crestor 10mg [facility] and December 19, 2014 [facility] HOSP FOLLOW UP [facility] and April 17, 2015 [facility] labs [facility] and April 26, 2015 [facility] Problems Problem Type Condition ICD-9 Code Onset Dates Condition Status Problem Benign essential hypertension I10 Active Problem Gastroesophageal reflux disease, K21.9 Active esophagitis presence not specified Problem Other and unspecified E78.5 Active hyperlipidemia Problem Low back pain M54.5 Active Assessment Other and unspecified E78.5 Active hyperlipidemia Problem Other chronic pain G89.29 Active Assessment Screening for breast cancer Z12.39 Active Problem Type 2 diabetes mellitus with [...] insulin Assessment Benign essential hypertension I10 Active Assessment Vitamin D deficiency E55.9 Active Problem Chronic anticoagulation Z79.01 Active Problem Vertigo R42 Active Problem Primary insomnia F51.01 Active Problem Diverticulosis of large K57.30 Active intestine without hemorrhage Problem DVT (deep venous thrombosis) I82.409 Active Problem Vitamin D deficiency E55.9 Active Medications Medication Code System Code Instructions Start End Status Dosage Date Date Ergocalciferol [facility] [address]-41 07837 UNIT February 27Aug Active 1 capsule Orally once 2015 16, per week 2015 Levothyroxine [facility] 50454314397 125 MCG Orally Active 1 tablet Sodium Once a day, 30 minutes before first meal on an empty stomach Venlafaxine HCl [facility] 08726379715 100 MG Orally Active 1 tablet twice a day (bid) Flexeril [facility] 46094750180 10 MG Active TAKE 1/2 TO 1 TABLET BY MOUTH EVERY 8 HOURS NEEDED Metformin HCl [facility] [address]-45 500 mg Orally Active 2 tablet Twice a day with meals Carvedilol [facility] 81318415093 6.25 MG Orally Active 1 tablet Twice a day with food Warfarin Sodium [facility] [address]-83 4 mg Orally QD May 19, Active 1 tablet Sat and Sun 2015 Warfarin Sodium [facility] [address]-49 5 MG Orally QD Active 1 tablet - Rosuvastatin [facility] [address]-65 20 mg Orally April Active 1 tablet Calcium Once a day 2015 Pantoprazole [facility] [address]-69 40 MG Orally Active 1 packet Sodium Once a day Lisinopril [facility] 56568246844 5 MG Active TAKE 1 TABLET BY MOUTH EVERY DAY Social History Social History Element Qualifiers Date Reported Depression Screening: . negative Jun 16, 2016 Flu Vaccine: . no Jun 16, 2016 Last Colonoscopy: . 2012 Jun 16, 2016 children . 2 Jun 16, 2016 Tobacco Use: . Are you a: former smoker quit Jun 16, 2016 days ago, smoked 20-30 years Use of recreational / street drugs? . Answer: No Jun 16, 2016 Marital Status: . Jun 16, 2016 Do you drink alcohol? . Status: Yes, How often? Socially Jun 16, 2016 Occupation: employed. [employer] Jun 16, 2016 Vital Signs Date/Time: Jun 16, 2016 Blood Pressure Systolic 120 mm Hg Height 66.5 in Cardiac Monitoring Heart Rate 83 /min Blood Pressure Diastolic 70 mm Hg Results PROTHROMBIN TIME-INR Summary Purpose eClinicalWorks Submission
--- OUTSIDE RECORDS SUMMARY | 2019-05-25 23:30 | XMS REPORT ---
:1965 Author Organization eClinicalWorks Care Team Providers Name Role Phone Nicolle Grimaldo Provider Role Unavailable Encounters Encounter Location Date REFILL [facility] and March 21, 2014 [facility] Unknown [facility] and February 12, 2016 [facility] Blood work-Roxanne [facility] and February 07, 2016 [facility] and March 08, 2014 [facility] issue [facility] and Jun 22, 2016 [facility] labs [facility] 17, 2015 [facility] labs [facility] and April 26, 2015 [facility] [...] Active Problem Acquired hypothyroidism E03.9 Active Problem Chronic anticoagulation Z79.01 Active Problem Vertigo R42 Active Problem Primary insomnia F51.01 Active Problem Diverticulosis of large K57.30 Active intestine without hemorrhage Problem DVT (deep venous thrombosis) I82.409 Active Problem Vitamin D deficiency E55.9 Active Social History Social History Element Qualifiers [...] employed. [employer] Jun 16, 2016 Summary Purpose eClinicalWorks Submission
--- OUTSIDE RECORDS SUMMARY | 2019-05-25 23:30 | XMS REPORT ---
:1965 Author Organization eClinicalWorks Care Team Providers Name Role Phone Madelaine Garcia Provider Role Unavailable Encounters Encounter Location Date REFILL [facility] and March 21, 2014 [facility] Unknown [facility] and February 12, 2016 [facility] Blood work-Roxanne [facility] and February 07, 2016 [facility] Refill [facility] and February 05, 2016 [facility] ABDOMINAL PAIN [facility] and Aug 21, 2014 [facility] Unknown [facility] and Aug 27, 2014 [facility] Cancel Appointment Request [facility] and March 19, 2016 [facility] 1 day follow up [facility] and Aug 22, 2014 [facility] Reschedule Appointment Request [facility] and March 19, 2016 [facility] 2 DAY FOLLOW UP [facility] and Aug 24, 2014 [facility] 1 day follow-up/ leg is still [facility] and April 19, 2014 swollen [facility] Unknown [facility] and Aug 21, 2014 [facility] leg swelling [facility] and April 18, 2014 [facility] Test results [facility] and April 24, 2014 [facility] and Nov 30, 2014 [facility] REFILL [facility] and January 15, 2014 [facility] Prior Auth [facility] and January 16, 2014 [facility] Unknown [facility] and January 29, 2014 [facility] Test results [facility] and January 30, 2014 [facility] PHYSICAL [facility] and Jun 13, 2013 [facility] Test results [facility] and Jun 27, 2013 [facility] Unknown [facility] and January 09, 2014 [facility] Follow-Up [facility] and December 19, 2014 [facility] FOLLOW-UP [facility] and December 11, 2014 [facility] STOMACH PAIN [facility] and January 29, 2014 [facility] Bad Cough [facility] and March 08, 2014 [facility] labs [facility] and May 06, 2015 [facility] Unknown [facility] and January 24, 2016 [facility] insurance info [facility] and January 30, 2016 [facility] Refill [facility] and January 31, 2016 [facility] on Esomeprazole 40mg [facility] and December 19, 2014 [facility] on Crestor 10mg [facility] and December 19, 2014 [facility] HOSP FOLLOW UP [facility] and April 17, 2015 [facility] labs [facility] and April 26, 2015 [facility] [...]
--- OUTSIDE RECORDS SUMMARY | 2019-05-25 23:30 | XMS REPORT ---
:1965 Author Organization eClinicalWorks Care Team Providers Name Role Phone Roxanne Pantoja Provider Role Unavailable Allergies, Adverse Reactions, Alerts Substance Reaction Event Type Adhesive Bandages Info Not Available Drug Allergy Keflex abdomen pain Drug Allergy Doxycycline Hyclate abdomen pain Drug Allergy Dilaudid hallucinations Drug Allergy Encounters Encounter Location Date REFILL [facility] and March 21, 2014 [facility] Unknown [facility] and February 12, 2016 [facility] and February 07, 2016 [facility] Refill [facility] and February 05, 2016 [facility] appt [facility] and March 23, 2016 [facility] ABDOMINAL PAIN [facility] and Aug 21, 2014 [facility] appt [facility] and March 30, 2016 [facility] Unknown [facility] and Aug 27, 2014 [facility] Cancel Appointment Request [facility] and March 19, 2016 [facility] 1 day follow up [facility] and Aug 22, 2014 [facility] Reschedule Appointment Request [facility] and March 19, 2016 [facility] 2 DAY FOLLOW UP [facility] and Aug 24, 2014 [facility] 1 day follow-up/ leg is still [facility] and April 19, 2014 swollen [facility] Unknown [facility] and Aug 21, 2014 [facility] appt. [facility] and May 18, 2016 [facility] leg swelling [facility] and April 18, 2014 [facility] Right ear bleeding [facility] and May 19, 2016 [facility] Test results [facility] and April 24, 2014 [facility] COUGH [facility] and Nov 30, 2014 [facility] REFILL [facility] and January 15, 2014 [facility] Prior Auth [facility] and January 16, 2014 [facility] Unknown [facility] and January 29, 2014 [facility] Test results [facility] and January 30, 2014 [facility] PHYSICAL [facility] and Jun 13, 2013 [facility] Test results [facility] and Jun 27, 2013 [facility] Unknown [facility] and January 09, 2014 [facility] Follow-Up [facility] and December 19, 2014 [facility] FOLLOW-UP [facility] and December 11, 2014 [facility] STOMACH PAIN [facility] and January 29, 2014 [facility] Bad Cough [facility] and March 08, 2014 [facility] labs [facility] and May 06, 2015 [facility] Unknown [facility] and January 24, 2016 [facility] insurance info [facility] and January 30, 2016 [facility] Refill [facility] and January 31, 2016 [facility] [place] on Esomeprazole 40mg [facility] and December 19, 2014 [facility] [place] on Crestor 10mg [facility] and December 19, 2014 [facility] HOSP FOLLOW UP [facility] and April 17, 2015 [facility] labs [facility] and April 26, 2015 [facility] Problems Problem Type Condition ICD-9 Code Onset Dates Condition Status Problem Benign essential hypertension I10 Active Problem Gastroesophageal reflux disease, K21.9 Active esophagitis presence not specified Problem Other and unspecified E78.5 Active hyperlipidemia Problem Low back pain M54.5 Active Assessment Vitamin D deficiency E55.9 Active Problem Other chronic pain G89.29 Active Problem Type 2 diabetes mellitus with E11.65 Active hyperglycemia, without long-term current use of insulin Problem Depression, unspecified F32.9 Active depression type Problem PE (pulmonary embolism) I26.99 Active Problem Barretts esophagus K22.70 Active Problem Acquired hypothyroidism E03.9 Active Assessment Type 2 diabetes mellitus with E11.65 Active hyperglycemia, without long-term current use of insulin Assessment Other and unspecified E78.5 Active hyperlipidemia Assessment Benign essential hypertension I10 Active Assessment Chronic anticoagulation Z79.01 Active Problem Chronic anticoagulation Z79.01 Active Problem Vertigo R42 Active Problem Primary insomnia F51.01 Active Problem Diverticulosis of large K57.30 Active intestine without hemorrhage Problem DVT (deep venous thrombosis) I82.409 Active Problem Vitamin D deficiency E55.9 Active Medications Medication Code System Code Instructions Start End Status Dosage Date Date Pantoprazole [employer] [address]-55 40 MG Orally Active 1 packet Sodium Once a day Ergocalciferol [employer] [address]-57 42878 UNIT February 27Aug Active 1 capsule Orally once 2015 16, per week 2015 Flexeril [employer] 42648967974 10 MG Active TAKE 1/2 TO 1 TABLET BY MOUTH EVERY 8 HOURS NEEDED [facility]in[facility] 054717[facility]355 5 MG Active TAKE 1 TABLET BY MOUTH EVERY DAY Metformin HCl [facility] 24296641871 500 MG Orally Active 1 tablet Twice a day with meals Levothyroxine [facility] 43163742024 125 MCG Orally Active 1 tablet Sodium Once a day, 30 minutes before first meal on an empty stomach Venlafaxine HCl [facility] 41213263901 100 MG Orally Active 1 tablet twice a day (bid) Rosuvastatin [facility] [address]-19 20 mg Orally April Active 1 tablet Calcium Once a day 2015 Warfarin Sodium [facility] [address]-21 4 mg Orally QD May 19, Active 1 tablet Sat and Sun 2015 Warfarin Sodium [facility] [address]-74 5 MG Orally QD Active 1 tablet M-F Carvedilol [facility] 98348469429 6.25 MG Orally Active 1 tablet Twice a day with food Social History Social History Element Qualifiers Date Reported Depression Screening: . negative May 19, 2016 Flu Vaccine: . no May 19, 2016 Last Colonoscopy: . 2011May 19, 2016 children . 2 May 19, 2016 Tobacco Use: . Are you a: former smoker quit May 19, 2016 days ago, smoked 20-30 years Use of recreational / street drugs? . Answer: No May 19, 2016 Marital Status: . May 19, 2016 Do you drink alcohol? . Status: Yes, How often? Socially May 19, 2016 Occupation: employed. [employer] May 19, 2016 Vital Signs Date/Time: May 19, 2016 Blood Pressure Systolic 126 mm Hg Height 66.5 in Cardiac Monitoring Heart Rate 99 /min Blood Pressure Diastolic 72 mm Hg Results MONOFILAMENT FOOT EXAMINATION PERFORMED Summary Purpose eClinicalWorks Submission
--- OUTSIDE RECORDS SUMMARY | 2019-05-25 23:30 | XMS REPORT ---
:1965 Author Organization eClinicalWorks Care Team Providers Name Role Phone Madelaine Garcia Provider Role Unavailable Encounters Encounter Location Date REFILL [facility] and March 21, 2014 [facility] Unknown [facility] and February 12, 2016 [facility] Blood work-Roxanne [facility] and February 07, 2016 [facility] Refill [facility] and February 05, 2016 [facility] appt [facility] and March 23, 2016 [facility] ABDOMINAL PAIN [facility] and Aug 21, 2014 [facility] Unknown [facility] and Aug 27, 2014 [facility] Cancel Appointment Request [facility] and March 19, 2016 [facility] 1 day follow up [facility] and Aug 22, 2014 [facility] Reschedule Appointment Request [facility] and March 19, 2016 [facility] 2 DAY FOLLOW UP [facility] and Aug 24, 2014 [facility] 1 day follow-up/ leg is still [facility] and April 19, 2014 swollen [facility] Unknown [facility] and Aug 21, 2014 [facility] leg swelling [facility] and April 18, 2014 [facility] Test results [facility] and April 24, 2014 [facility] COUGH [facility] and Nov 30, 2014 [facility] REFILL [facility] and January [...] 2014 [facility] Follow-Up [facility] and December 19, 2014 [facility] FOLLOW-UP [facility] and December 11, 2014 [facility] STOMACH PAIN [facility] and January 29, 2014 [facility] Bad Cough [facility] and March 08, 2014 [facility] labs [facility] and May 06, 2015 [facility] Unknown [facility] and January 24, 2016 [facility] insurance info [facility] and January 30, 2016 [facility] Refill [facility] and January 31, 2016 [facility] [place] on Esomeprazole 40mg [facility] and December 19, 2014 [facility] on Crestor 10mg [facility] and December 19, 2014 [facility] HOSP FOLLOW UP [facility] and April 17, 2015 [facility] labs [facility] and April 26, 2015 [facility] [...]
--- OUTSIDE RECORDS SUMMARY | 2019-05-25 23:30 | XMS REPORT ---
:1965 Author Organization eClinicalWorks Care Team Providers Name Role Phone Roxanne Pantoja Provider Role Unavailable Encounters Encounter Location Date REFILL [facility] and March 21, 2014 [facility] Unknown [facility] and February 12, 2016 [facility] Blood work-Roxanne [facility] and February 07, 2016 [facility] Refill [facility] and February 05, 2016 [facility] appt [facility] and March 23, 2016 [facility] ABDOMINAL PAIN [facility] and Aug 21, 2014 [facility] appt [facility] and March 30, 2016 [facility] Unknown [facility] and Aug 27, 2014 [facility] Cancel Appointment Request [facility] and March 19, 2016 [facility] 1 day follow up [facility] and Aug 22, 2014 [facility] Reschedule Appointment Request [facility] and March 19, 2016 [facility] 2 DAY FOLLOW UP [facility] and Aug 24, 2014 [facility] 1 day follow-up/ leg is still [facility] and April 19, 2014 swollen [facility] Unknown [facility] and Aug 21, 2014 [facility] leg swelling [facility] and April 18, 2014 [facility] Test results [facility] and April 24, 2014 [facility] COUGH [facility] and Nov 30, 2014 [facility] REFILL [facility] and January 15, 2014 [facility] Prior Auth [facility] and January 16, 2014 [facility] Unknown [facility] and January 29, 2014 [facility] Test results [facility] and January 30, 2014 [facility] PHYSICAL [facility] and Jun 13, 2013 [facility] Test results [facility] and Jun 27, 2013 [facility] Unknown [facility] and January 09, 2014 [facility] Follow-Up [facility] and December 19, 2014 [facility] FOLLOW-UP [facility] and December 11, 2014 [facility] STOMACH PAIN [facility] and January 29, 2014 [facility] Bad Cough [facility] and March 08, 2014 [facility] labs [facility] and May 06, 2015 [facility] Unknown [facility] and January 24, 2016 [facility] insurance info [facility] and January 30, 2016 [facility] Refill [facility] and January 31, 2016 [facility] [place] on Esomeprazole 40mg [facility] and December 19, 2014 [facility] on Crestor 10mg [facility] and December 19, 2014 [facility] HOSP FOLLOW UP [facility] and April 17, 2015 [facility] labs [facility] and April 26, 2015 [facility] [...]
--- OUTSIDE RECORDS SUMMARY | 2019-05-25 23:31 | XMS REPORT ---
:1965 Author Organization eClinicalWorks Care Team Providers Name Role Phone Roxanne Pantoja Provider Role Unavailable Encounters Encounter Location Date REFILL [facility] and March 21, 2014 [facility] Unknown [facility] and February 12, 2016 [facility] Blood work-Roxanne [facility] and February 07, 2016 [facility] Refill [facility] and February 05, 2016 [facility] appt [facility] and March 23, 2016 [facility] ABDOMINAL PAIN [facility] and Aug 21, 2014 [facility] appt [facility] and March 30, 2016 [facility] Unknown [facility] and Aug 27, 2014 [facility] Cancel Appointment Request [facility] and March 19, 2016 [facility] 1 day follow up [facility] and Aug 22, 2014 [facility] Reschedule Appointment Request [facility] and March 19, 2016 [facility] 2 DAY FOLLOW UP [facility] and Aug 24, 2014 [facility] 4 week follow up [facility] and Jun 16, 2016 [facility] 1 day follow-up/ leg is still [facility] and April 19, 2014 swollen [facility] Unknown [facility] and Aug 21, 2014 [facility] appt. [facility] and May 18, 2016 [facility] leg swelling [facility] and April 18, 2014 [facility] Right ear bleeding [facility] and May 19, 2016 [facility] Test results [facility] and April 24, 2014 [facility] COUGH [facility] and Nov 30, 2014 [facility] REFILL [facility] and January 15, 2014 [facility] Prior Auth [facility] and January 16, 2014 [facility] Unknown [facility] and January 29, 2014 [facility] Test results [facility] and January 30, 2014 [facility] PHYSICAL [facility] and Jun 13, 2013 [facility] Test results [facility] and Jun 27, 2013 [facility] Unknown [facility] and January 09, 2014 [facility] Follow-Up [facility] and December 19, 2014 [facility] FOLLOW-UP [facility] and December 11, 2014 [facility] Re:RE:refill and paper to get morris [facility] and Jun 19, 2016 [facility] STOMACH PAIN [facility] and January 29, 2014 [facility] refill and paper to get [facility] and Jun 18, 2016 [facility] Bad Cough [facility] and March 08, 2014 [facility] labs [facility] and May 06, 2015 [facility] Unknown [facility] and January 24, 2016 [facility] insurance info [facility] and January 30, 2016 [facility] Refill [facility] and January 31, 2016 [facility] PA on Esomeprazole 40mg [facility] and December 19, 2014 [facility] on Crestor 10mg [facility] and December 19, 2014 [facility] HOSP FOLLOW UP [facility] and April 17, 2015 [facility] labs [facility] and April 26, 2015 [facility] [...] Instructions Start End Date Status Dosage Date Warfarin Sodium [employer] 70698-646 4 mg Orally QD May 19, Active 1 tablet 6- Sat and Sun 2015 Social History Social History Element Qualifiers Date [...] alcohol? . Status: Yes, How often? Socially Sept 06, 2016 Occupation: employed. [employer] Jun 16, 2016 Summary Purpose eClinicalWorks Submission
--- OUTSIDE RECORDS SUMMARY | 2019-05-25 23:31 | XMS REPORT ---
:1965 Author Organization eClinicalWorks Care Team Providers Name Role Phone Roxanne Pantoja Provider Role Unavailable Encounters Encounter Location Date REFILL [facility] and March 21, 2014 [facility] Re:RE:copy of blood work done in [facility] and Aug [facility] ABDOMINAL PAIN [facility] and Aug 21, 2014 [facility] [place] [place] [facility], 2014 [facility] leg swelling [facility] and April 18, 2014 [facility] copy of blood work done in july [facility] and Aug 28, 20162015 [facility] and April 26, 2015 [facility] Unknown [facility] and February 12, 2016 [facility] Blood work-Roxanne [facility] and February 07, 2016 [facility] Refill [facility] and February 05[facility] 2016 [facility] appt [facility] and March 23, 2016 [facility] appt [facility] and March 30, 2016 [facility] Cancel Appointment Request [facility] and March 19, 2016 [facility] Reschedule Appointment Request [facility] and March 19, 2016 [facility] 4 week follow up [facility] and Jun 16, 2016 [facility] appt. [facility] and May 18, 2016 [facility] Right ear bleeding [facility] and May 19, 2016 [facility] Re:RE:refill and paper to get morris [facility] and Jun 19, 2016 [facility] refill and paper to get morris [facility] and Jun 18, 2016 [facility] Re:RE:issue [facility] and Jun 22, 2016 [facility] issue [facility] and Jun 22, 2016 [facility] PT/INR and mole [facility] and Jun 23, 2016 [facility] [place]/ROXANNE-PT/INR [facility] and Jul 07, 2016 [facility] Cancel Appointment Request [facility] and Jul 02, 2016 [facility] Cancel Appointment Request [facility] and Jul 13, 2016 [facility] nv-pt/inr / Roxanne [facility] and Jul 21, 2016 [facility] Unknown [facility] and Jul 30, 2016 [facility] Problems Problem Type Condition [...] Qualifiers Date Reported Depression Screening: . negative Aug 21, 2016 Flu Vaccine: . no Aug 21, 2016 Last Colonoscopy: . 2011Aug 21, 2016 children . 2 Aug 21, 2016 Tobacco Use: . Are you a: former smoker quit 21 Aug 21, 2016 days ago, smoked 20-30 years Use of recreational / street drugs? . Answer: No Aug 21, 2016 Marital Status: . Aug 21, 2016 Do you drink alcohol? . Status: Yes, How often? Socially Aug 21, 2016 Occupation: employed. [employer] Aug 21, 2016 Summary Purpose eClinicalWorks Submission
--- OUTSIDE RECORDS SUMMARY | 2019-05-25 23:31 | XMS REPORT ---
[...] 2014 [facility] appt [facility] and March 30, 2016 [facility] 4 week follow up [facility] and Jun 16, 2016 [facility] 1 day follow-up/ leg is still [facility] and April 19, 2014 swollen [facility] Unknown [facility] and Aug 21, 2014 [facility] appt. [facility] and May 18, 2016 [facility] leg swelling [facility] and April 18, 2014 [facility] Right ear bleeding [facility] and May 19, 2016 [facility] [...] and paper to get morris [facility] and Jun 19, 2016 [facility] STOMACH PAIN [facility] and January 29, 2014 [facility] refill and paper to get morris [facility] and Jun 18, 2016 [facility] Bad Cough [facility] and March 08, 2014 [facility] Re:RE:issue [facility] and Jun 22, 2016 [facility] issue [facility] and Jun 22, 2016 [facility] labs [facility] [...]
--- OUTSIDE RECORDS SUMMARY | 2019-05-25 23:31 | XMS REPORT ---
[...] [facility] refill and paper to get [facility] and Jun 18, 2016 [facility] Bad Cough [facility] and March 08, 2014 [facility] Re:RE:issue [facility] and Jun 22, 2016 [facility] issue [facility] and Jun 22, 2016 [facility] PT/INR and mole [facility] and Jun 23, 2016 [facility] labs [facility] and May 06, 2015 [facility] [place]/ROXANNE-PT/INR [facility] and Jul 07, 2016 [facility] Unknown [facility] and January 24, 2016 [facility] Cancel Appointment Request [facility] and Jul 02, 2016 [facility] insurance info [facility] and January 30, 2016 [facility] Cancel Appointment Request [facility] and Jul 13, 2016 [facility] [...] Qualifiers Date Reported Depression Screening: . negative Jul 07, 2016 Flu Vaccine: . no Jul 07, 2016 Last Colonoscopy: . 2012 Jul 07, 2016 children . 2 Jul 07, 2016 Tobacco Use: . Are you a: former smoker quit Jul 07, 2016 days ago, smoked 20-30 years Use of recreational / street drugs? . Answer: No Jul 07, 2016 Marital Status: . Jul 07, 2016 Do you drink alcohol? . Status: Yes, How often? Socially Jul 07, 2016 Occupation: employed. [employer] Jul 07, 2016 Summary Purpose eClinicalWorks Submission
--- OUTSIDE RECORDS SUMMARY | 2019-05-25 23:31 | XMS REPORT ---
:1965 Author Organization eClinicalWorks Care Team Providers Name Role Phone Roxanne Pantoja Provider Role Unavailable Allergies, Adverse Reactions, Alerts Substance Reaction Event Type Adhesive Bandages Info Not Available Drug Allergy Keflex abdomen pain Drug Allergy Doxycycline Hyclate abdomen pain Drug Allergy Dilaudid hallucinations Drug Allergy Encounters Encounter Location Date REFILL [facility] and March 21, 2014 [facility] Unknown [facility] and February 12, 2016 [facility], [facility] Refill [facility] and February 05, 2016 [facility] appt [facility] and March 23, 2016 [facility] ABDOMINAL PAIN [facility] and Aug 21, 2014 [facility] appt [facility] and March 30, 2016 [facility] Unknown [facility] and Aug 27, 2014 [facility] Cancel Appointment Request [facility] and March 19, 2016 [facility] 1 day follow up [facility] and Aug 22, 2014 [facility] Reschedule Appointment Request [facility] and March 19, 2016 [facility] 2 DAY FOLLOW UP [facility] and Aug 24, 2014 [facility] 4 week follow up [facility] and Jun 16, 2016 [facility] 1 day follow-up/ leg is still [facility] and April 19, 2014 swollen [facility] Unknown [facility] and Aug 21, 2014 [facility] appt. [facility] and May 18, 2016 [facility] leg swelling [facility] and April 18, 2014 [facility] Right ear bleeding [facility] and May 19, 2016 [facility] Test results [facility] and April 24, 2014 [facility] COUGH [facility] and Nov 30, 2014 [facility] REFILL [facility] and January 15, 2014 [facility] Prior Auth [facility] and January 16, 2014 [facility] Unknown [facility] and January 29, 2014 [facility] Test results [facility] and January 30, 2014 [facility] PHYSICAL [facility] and Jun 13, 2013 [facility] Test results [facility] and Jun 27, 2013 [facility] Unknown [facility] and January 09, 2014 [facility] Follow-Up [facility] and December 19, 2014 [facility] FOLLOW-UP [facility] and December 11, 2014 [facility] Re:RE:refill and paper to get morris [facility] and Jun 19, 2016 [facility] STOMACH PAIN [facility] and January 29, 2014 [facility] refill and paper to get morris [facility] and Jun 18, 2016 [facility] Bad Cough [facility] and March 08, 2014 [facility] Re:RE:issue [facility] and Jun 22, 2016 [facility] issue [facility] and Jun 22, 2016 [facility] PT/INR and mole [facility] and Jun 23, 2016 [facility] labs [facility] and May 06, 2015 [facility] [place]/ROXANNE-PT/INR [facility] and Jul 07, 2016 [facility] Unknown [facility] and January 24, 2016 [facility] insurance info [facility] and January 30, 2016 [facility] Refill [facility] and January 31, 2016 [facility] [place] on Esomeprazole 40mg [facility] and December 19, 2014 [facility] [place] on Crestor 10mg [facility] and December 19, 2014 [facility] HOSP FOLLOW UP [facility] and April 17, 2015 [facility] labs [facility] and April 26, 2015 Internal [...] Start End Status Dosage Date Date [facility] [address]-02 [id number] UNIT February 27Aug Active 1 capsule Orally once 2015 16, per week 2015 Levothyroxine [facility] 83489841824 125 MCG Orally Active 1 tablet Sodium Once a day, 30 minutes before first meal on an empty stomach Warfarin Sodium [facility] [address]-10 5 MG Orally QD Active 1 tablet - Rosuvastatin [facility] [address]-82 20 mg Orally April Active 1 tablet Calcium Once a day 2015 Carvedilol [facility] 50971732684 6.25 MG Orally Active 1 tablet Twice a day with food Lisinopril [facility] 88767405324 5 MG Active TAKE 1 TABLET BY MOUTH EVERY DAY Warfarin Sodium [facility] [address]-38 4 mg Orally QD May 19, Active 1 tablet Sat and Sun 2015 Metformin HCl [facility] [address]-55 500 mg Orally Active 2 tablet Twice a day with meals Flexeril [facility] 54076025202 10 MG Active TAKE 1/2 TO 1 TABLET BY MOUTH EVERY 8 HOURS NEEDED Pantoprazole [facility] [address]-68 40 MG Orally Active 1 packet Sodium Once a day Venlafaxine HCl [facility] 66208018226 100 MG Orally Active 1 tablet twice [...] employed. [employer] Jul 07, 2016 Vital Signs Date/Time: Jul 07, 2016 Blood Pressure Diastolic 72 mm Hg Blood Pressure Systolic 130 mm Hg Height 66.5 in Cardiac Monitoring Heart Rate 108 /min Results PROTHROMBIN TIME-INR Summary Purpose eClinicalWorks Submission
--- OUTSIDE RECORDS SUMMARY | 2019-05-25 23:31 | XMS REPORT ---
:1965 Author Organization eClinicalWorks Care Team Providers Name Role Phone Roxanne Pantoja Provider Role Unavailable Allergies, Adverse Reactions, Alerts Substance Reaction Event Type Adhesive Bandages Info Not Available Drug Allergy Keflex abdomen pain Drug Allergy Doxycycline Hyclate abdomen pain Drug Allergy Dilaudid hallucinations Drug Allergy Encounters Encounter Location Date REFILL [facility] and March 21, 2014 [facility] Unknown [facility] and February 12, 2016 [facility], [facility] Refill [facility] and February 05, 2016 [facility] appt [facility] and March 23, 2016 [facility] ABDOMINAL PAIN [facility] and Aug 21, 2014 [facility] appt [facility] and March 30, 2016 [facility] Unknown [facility] and Aug 27, 2014 [facility] Cancel Appointment Request [facility] and March 19, 2016 [facility] 1 day follow up [facility] and Aug 22, 2014 [facility] Reschedule Appointment Request [facility] and March 19, 2016 [facility] 2 DAY FOLLOW UP [facility] and Aug 24, 2014 [facility] 4 week follow up [facility] and Jun 16, 2016 [facility] 1 day follow-up/ leg is still [facility] and April 19, 2014 swollen [facility] Unknown [facility] and Aug 21, 2014 [facility] appt. [facility] and May 18, 2016 [facility] leg swelling [facility] and April 18, 2014 [facility] Right ear bleeding [facility] and May 19, 2016 [facility] Test results [facility] and April 24, 2014 [facility] COUGH [facility] and Nov 30, 2014 [facility] REFILL [facility] and January 15, 2014 [facility] Prior Auth [facility] and January 16, 2014 [facility] Unknown [facility] and January 29, 2014 [facility] Test results [facility] and January 30, 2014 [facility] PHYSICAL [facility] and Jun 13, 2013 [facility] Test results [facility] and Jun 27, 2013 [facility] Unknown [facility] and January 09, 2014 [facility] Follow-Up [facility] and December 19, 2014 [facility] FOLLOW-UP [facility] and December 11, 2014 [facility] Re:RE:refill and paper to get morris [facility] and Jun 19, 2016 [facility] STOMACH PAIN [facility] and January 29, 2014 [facility] refill and paper to get morris [facility] and Jun 18, 2016 [facility] Bad Cough [facility] and March 08, 2014 [facility] Re:RE:issue [facility] and Jun 22, 2016 [facility] issue [facility] and Jun 22, 2016 [facility] PT/INR and mole [facility] and Jun 23, 2016 [facility] labs [facility] and May 06, 2015 [facility] [place]/ROXANNE-PT/INR [facility] and Jul 07, 2016 [facility] Unknown [facility] and January 24, 2016 [facility] Cancel Appointment Request [facility] and Jul 02, 2016 [facility] insurance info [facility] and January 30, 2016 [facility] Cancel Appointment Request [facility] and Jul 13, 2016 [facility] Refill [facility] and January 31, 2016 [facility] nv-pt/inr / Roxanne [facility] and Jul 21, 2016 [facility] [place] on Esomeprazole 40mg [facility] and December 19, 2014 [facility] [place] on Crestor 10mg [facility] and December 19, 2014 [facility] HOSP FOLLOW UP [facility] and April 17, 2015 [facility] and April 26, 2015 [facility] [...] Active Problem Acquired hypothyroidism E03.9 Active Assessment DVT (deep venous thrombosis) I82.409 Active Problem Chronic anticoagulation Z79.01 Active Problem Vertigo R42 Active Problem Primary insomnia F51.01 Active Problem Diverticulosis of large K57.30 Active intestine without hemorrhage Problem DVT (deep venous thrombosis) I82.409 Active Problem Vitamin D deficiency E55.9 Active Medications Medication Code System Code Instructions Start End Status Dosage Date Date Ergocalciferol [facility] [address]-39 16758 UNIT February 27Aug Active 1 capsule Orally once 2015 16, per week 2015 Levothyroxine [facility] 78485747278 125 MCG Orally Active 1 tablet Sodium Once a day, 30 minutes before first meal on an empty stomach Warfarin Sodium [facility] [address]-41 5 MG Orally QD Active 1 tablet - Metformin HCl [facility] [address]-36 500 mg Orally Active 2 tablet Twice a day with meals Carvedilol [facility] 80474465218 6.25 MG Orally Active 1 tablet Twice a day with food Lisinopril [facility] 35116584642 5 MG Active TAKE 1 TABLET BY MOUTH EVERY DAY Flexeril [facility] 52759281571 10 MG Active TAKE 1/2 TO 1 TABLET BY MOUTH EVERY 8 HOURS NEEDED Rosuvastatin [facility] [address]-20 20 mg Orally April Active 1 tablet Calcium Once a day 2015 Warfarin Sodium [facility] [address]-31 4 mg Orally QD May 19, Active 1 tablet Sat and Sun 2015 Pantoprazole [facility] [address]-56 40 MG Orally Active 1 packet Sodium Once a day Venlafaxine HCl [facility] 62252080330 100 MG Orally Active 1 tablet twice a day (bid) Social History Social History Element Qualifiers Date Reported Depression Screening: . negative Jul 21, 2016 Flu Vaccine: . no Jul 21, 2016 Last Colonoscopy: . 2012 Jul 21, 2016 children . 2 Jul 21, 2016 Tobacco Use: . Are you a: former smoker quit 21 Jul 21, 2016 days ago, smoked 20-30 years Use of recreational / street drugs? . Answer: No Jul 21, 2016 Marital Status: . Jul 21, 2016 Do you drink alcohol? . Status: Yes, How often? Socially Jul 21, 2016 Occupation: employed. [employer] Jul 21, 2016 Vital Signs Date/Time: Jul 21, 2016 Blood Pressure Diastolic 90 mm Hg Blood Pressure Systolic 126 mm Hg Height 66.5 in Cardiac Monitoring Heart Rate 101 /min Results PROTHROMBIN TIME-INR Summary Purpose eClinicalWorks Submission
--- OUTSIDE RECORDS SUMMARY | 2019-05-25 23:31 | XMS REPORT ---
:1965 Author Organization eClinicalWorks Care Team Providers Name Role Phone Roxanne Pantoja Provider Role Unavailable Encounters Encounter Location Date REFILL [facility] and March 21, 2014 [facility] Unknown [facility] and February 12, 2016 [facility] Blood work-Roxanne [facility] and February 07, 2016 [facility] Refill [facility] and February 05, 2016 [facility] appt [facility] and March 23, 2016 [facility] ABDOMINAL PAIN [facility] and Aug 21, 2014 [facility] appt [facility] and March 30, 2016 [facility] Unknown [facility] and Aug 27, 2014 [facility] Cancel Appointment Request [facility] and March 19, 2016 [facility] 1 day follow up [facility] and Aug 22, 2014 [facility] Reschedule Appointment Request [facility] and March 19, 2016 [facility] 2 DAY FOLLOW UP [facility] and Aug 24, 2014 [facility] 4 week follow up [facility] and Jun 16, 2016 [facility] 1 day follow-up/ leg is still [facility] and April 19, 2014 swollen [facility] Unknown [facility] and Aug 21, 2014 [facility] appt. [facility] and May 18, 2016 [facility] leg swelling [facility] and April 18, 2014 [facility] Right ear bleeding [facility] and May 19, 2016 [facility] Test results [facility] and April 24, 2014 [facility] COUGH [facility] and Nov 30, 2014 [facility] REFILL [facility] and January 15, [...] January 09, 2014 [facility] Follow-Up [facility] and December 19, 2014 [facility] FOLLOW-UP [facility] and December 11, 2014 [facility] Re:RE:refill and paper to get morris [facility] and Jun 19, 2016 [facility] STOMACH PAIN [facility] and January 29, 2014 [facility] refill and paper to get morris [facility] and Jun 18, 2016 [facility] Bad Cough [facility] and March 08, 2014 [facility] labs [facility] and May 06, 2015 [facility] Unknown [facility] and January 24, 2016 [facility] insurance info [facility] and January 30, 2016 [facility] Refill [facility] and January 31, 2016 [facility] [place] on Esomeprazole 40mg [facility] and December 19, 2014 [facility] [place] on Crestor 10mg [facility] and December 19, 2014 [facility] HOSP FOLLOW UP [facility] and April 17, 2015 [facility] and April 26, 2015 [facility] [...]
--- OUTSIDE RECORDS SUMMARY | 2019-05-25 23:31 | XMS REPORT ---
:1965 Author Organization eClinicalWorks Care Team Providers Name Role Phone Madelaine Garcia Provider Role Unavailable Encounters Encounter Location Date REFILL [facility] and March 21, 2014 [facility] Unknown [facility] and February 12, 2016 [facility] Blood work-Roxanne [facility] and February 07, 2016 [facility] Refill [facility] and February 05, 2016 [facility] appt [facility] and March 23, 2016 [facility] ABDOMINAL PAIN [facility] and Aug 21, 2014 [facility] appt [facility] and March 30, 2016 [facility] Unknown [facility] and Aug 27, 2014 [facility] Cancel Appointment Request [facility] and March 19, 2016 [facility] 1 day follow up [facility] and Aug 22, 2014 [facility] Reschedule Appointment Request [facility] and March 19, 2016 [facility] 2 DAY FOLLOW UP [facility] and Aug 24, 2014 [facility] 4 week follow up [facility] and Jun 16, 2016 [facility] 1 day follow-up/ leg is still [facility] and April 19, 2014 swollen [facility] Unknown [facility] and Aug 21, 2014 [facility] appt. [facility] and May 18, 2016 [facility] leg swelling [facility] and April 18, 2014 [facility] Right ear bleeding [facility] and May 19, 2016 [facility] Test results [facility] and April 24, 2014 [facility] COUGH [facility] and Nov 30, 2014 [facility] REFILL [facility] and January 15, 2014 [facility] Prior Auth [facility] and January 16[facility] 2014 [facility] Unknown [facility] and January 29[facility] 2014 [facility] Test results [facility] and January 30, 2014 [facility] PHYSICAL [facility] and Jun 13, 2013 [facility] Test results [facility] and Jun 27, 2013 [facility] Unknown [facility] and January 09, 2014 [facility] Follow-Up [facility] and December 19, 2014 [facility] FOLLOW-UP [facility] and December 11, 2014 [facility] Re:RE:refill and paper to get morris [facility] and Jun 19, 2016 [facility] STOMACH PAIN [facility] and January 29, 2014 [facility] refill and paper to get [facility] and Jun 18, 2016 [facility] Bad Cough [facility] and March 08, 2014 [facility] Re:RE:issue [facility] and Jun 22, 2016 [facility] issue [facility] and Jun 22, 2016 [facility] PT/INR and mole [facility] and Jun 23, 2016 [facility] labs [facility] and May 06, 2015 [facility] [place]/ROXANNE-PT/INR [facility] and Jul 07, 2016 [facility] Unknown [facility] and January 24, 2016 [facility] Cancel Appointment Request [facility] and Jul 02, 2016 [facility] insurance info [facility] and January 30, 2016 [facility] Refill [facility] and January 31, 2016 [facility] [place] on Esomeprazole 40mg [facility] and December 19, 2014 [facility] [place] on Crestor 10mg [facility] and December 19, 2014 [facility] HOSP FOLLOW UP [facility] and April 17, 2015 [facility] labs [facility] and April 26, 2015 [facility] [...]
--- OUTSIDE RECORDS SUMMARY | 2019-05-25 23:31 | XMS REPORT ---
:1965 Author Organization eClinicalWorks Care Team Providers Name Role Phone Roxanne Pantoja Provider Role Unavailable Encounters Encounter Location Date REFILL [facility] and March 21, 2014 [facility] ABDOMINAL PAIN [facility] and Aug 21, 2014 [facility] Unknown [facility] and Aug 27, 2014 [facility] 1 day follow up [facility] and Aug 22, 2014 [facility] 2 DAY FOLLOW UP [facility] and Aug 24, 2014 [facility] 1 day follow-up/ leg is still [facility] and April 19, 2014 swollen [facility] Unknown [facility] and Aug 21, 2014 [facility] leg swelling [facility] and April 18, 2014 [facility] Test results [facility] and April 24, 2014 [facility] and Nov 30, 2014 [facility] REFILL [facility] and January 15, 2014 [facility] Prior Auth [facility] and January 16, 2014 [facility] Unknown [facility] and January 29[facility] 2014 [facility] Test results [facility] and January 30, 2014 [facility] PHYSICAL [facility] and Jun 13, 2013 [facility] Test results [facility] and Jun 27, 2013 [facility] Unknown [facility] and January 09, 2014 [facility] Follow-Up [facility] and December 19, 2014 [facility] FOLLOW-UP [facility] and December 11, 2014 [facility] STOMACH PAIN [facility] and January 29, 2014 [facility] Bad Cough [facility] and March 08, 2014 [facility] labs [facility] and May 06, 2015 [facility] Unknown [facility] and January 24, 2016 [facility] insurance info [facility] and January 30, 2016 [facility] Refill [facility] and January 31, 2016 [facility] [place] on Esomeprazole 40mg [facility] and December 19, 2014 [facility] [place] on Crestor 10mg [facility] and December 19, 2014 [facility] HOSP FOLLOW UP [facility] and April 17, 2015 [facility] labs [facility] and April 26, 2015 [facility] Unknown [facility] and February 12, 2016 [facility] Blood work-Roxanne [facility] and February 07, 2016 [facility] Refill [facility] and February 05, 2016 [facility] appt [facility] and March 23, 2016 [facility] appt [facility] and March 30, 2016 [facility] Cancel Appointment Request [facility] and March 19, 2016 [facility] Reschedule Appointment Request [facility] and March 19, 2016 [facility] 4 week follow up [facility] and Jun 16, 2016 [facility] appt. [facility] and May 18, 2016 [facility] Right ear bleeding [facility] and May 19, 2016 [facility] Re:RE:refill and paper to get morris [facility] and Jun 19, 2016 [facility] refill and paper to get morris [facility] and Jun 18, 2016 [facility] Re:RE:issue [facility] and Jun 22, 2016 [facility] issue [facility] and Jun 22, 2016 [facility] PT/INR and mole [facility] and Jun 23, 2016 [facility] [place]/ROXANNE-PT/INR [facility] and Jul 07, 2016 [facility] Cancel Appointment Request [facility] and Jul 02, 2016 [facility] Cancel Appointment Request [facility] and Jul 13, 2016 [facility] nv-pt/inr / Roxanne [facility] and Jul 21, 2016 [facility] Unknown [facility] and Jul 30, 2016 Internal [...] Start End Status Dosage Date Date Warfarin MEDISPAN 44507631377 4 mg Orally qd Active 1 tablet Sodium on Mon through Th as directed Social History Social History Element Qualifiers Date Reported Depression Screening: . negative Jul 21, 2016 Flu Vaccine: . no Jul 21, 2016 Last Colonoscopy: . 2011Jul 21, 2016 children . 2 Jul 21, [...] employed. [employer] Jul 21, 2016 Summary Purpose [employer] Submission
--- OUTSIDE RECORDS SUMMARY | 2019-05-25 23:32 | XMS REPORT ---
:1965 Author Organization [employer] Care Team Providers Name Role Phone Madelaine Garcia Provider Role Unavailable Encounters Encounter Location Date REFILL [facility] and March 21, 2014 [facility] Cancel Appointment Request [facility] and Sep 29, 2016 [facility] Re:RE:copy of blood work done in [facility] and Aug [facility] ABDOMINAL PAIN [facility] and Aug 21, 2014 [facility] Re:RE:Re:RE:refill and paper to get [facility] and Sep 09, 2016 morris [facility] Unknown [facility] and Aug 27, 2014 [facility] FOLLOW UP AND BLOODWORK/PT-INR [facility] and Sep 18, 2016 [facility] 1 day follow up [facility] and Aug 22, 2014 [facility] Reschedule Appointment Request [facility] and Sep 29, 2016 [facility] 2 DAY FOLLOW [...] copy of blood work done in july [facility] and Aug 28, 20162015 [facility] May 06, 2015 [facility] Unknown [facility] and January 24, 2016 [facility] insurance info [facility] and January 30, 2016 [facility] Refill [facility] and January 31, 2016 Internal [...] April 26, 2015 [facility] Unknown [facility] and February 12, 2016 [facility] Blood work-Roxanne [facility] and February 07, 2016 [facility] Refill [facility] and February 05, 2016 [facility] appt [facility] and March 23, 2016 [facility] appt [facility] and March 30, 2016 [facility] Cancel Appointment Request [facility] and March 19, 2016 [facility] Reschedule Appointment Request [facility] and March 19, 2016 [facility] 4 week follow up [facility] and Jun 16, 2016 [facility] appt. [facility] and May 18, 2016 [facility] Right ear bleeding [facility] and May 19, 2016 [facility] Re:RE:refill and paper to get morris [facility] and Jun 19, 2016 [facility] refill and paper to get morris [facility] and Jun 18, 2016 [facility] Re:RE:issue [facility] and Jun 22, 2016 [facility] issue [facility] and Jun 22, 2016 [facility] PT/INR and mole [facility] and Jun 23, 2016 [facility] [place]-PT/INR [facility] and Jul 07, 2016 [facility] Cancel Appointment Request [facility] and Jul 02, 2016 [facility] Cancel Appointment Request [facility] and Jul 13, 2016 [facility] nv-pt/inr / Roxanne [facility] and Jul 21, 2016 [facility] Unknown [facility] and Jul 30, 2016 Internal [...] Qualifiers Date Reported Depression Screening: . negative Sep 18, 2016 Flu Vaccine: . no Sep 18, 2016 Last Colonoscopy: . 2011Sep 18, 2016 children . 2 Sep 18, 2016 Tobacco Use: . Are you a: former smoker quit Sep 18, 2016 days ago, smoked 20-30 years Use of recreational / street drugs? . Answer: No Sep 18, 2016 Marital Status: . Sep 18, 2016 Do you drink alcohol? . Status: Yes, How often? Socially Sep 18, 2016 Occupation: employed. [employer] Sep 18, 2016 Summary Purpose [employer]Works Submission
--- OUTSIDE RECORDS SUMMARY | 2019-05-25 23:32 | XMS REPORT ---
:1965 Author Organization [employer]Works Care Team Providers Name Role Phone Roxanne Pantoja Provider Role Unavailable Allergies, Adverse Reactions, Alerts Substance Reaction Event Type Adhesive Bandages Info Not Available Drug Allergy Keflex abdomen pain Drug Allergy Doxycycline Hyclate abdomen pain Drug Allergy Dilaudid hallucinations Drug Allergy Encounters Encounter Location Date REFILL [facility] and March 21, 2014 [facility] 1 month follow up [facility] and Oct 26, 2016 [facility] Cancel Appointment Request [facility] and Sep 29, 2016 [facility] Re:RE:copy of blood work done in [facility] and Aug [facility] ABDOMINAL PAIN [facility] and Aug 21, 2014 [facility] Re:RE:Re:RE:refill and paper to get [facility] and Sep 09, 2016 morris [facility] Unknown [facility] and Aug 27, 2014 [facility] FOLLOW UP AND BLOODWORK/PT-INR [facility] and Sep 18, 2016 [facility] 1 day follow up [facility] and Aug 22, 2014 [facility] Reschedule Appointment Request [facility] and Sep 29, 2016 [facility] 2 DAY FOLLOW UP [facility] and Aug 24, 2014 [facility] 1 day follow-up/ leg is still [facility] and April 19, 2014 swollen [facility] Unknown [facility] and Aug 21, 2014 [facility] leg swelling [facility] and April 18, 2014 [facility] copy of blood work done in july [facility] and Aug 28, 20162015 [facility] Test results [facility] and April 24, 2014 [facility] COUGH [facility] and Nov 30, 2014 [facility] REFILL [facility] and January 15[facility] 2014 [facility] Prior Auth [facility] and January 16, 2014 [facility] Unknown [facility] and January 29[facility] 2014 [facility] Test results [facility] and January 30[facility] 2014 [facility] PHYSICAL [facility] and Jun 13, 2013 [facility] Test results [facility] and Jun 27, 2013 [facility] Unknown [facility] and January 09, 2014 [facility] Follow-Up [facility] and December 19, 2014 [facility] FOLLOW-UP [facility] and December 11, 2014 [facility] STOMACH PAIN [facility] and January 29, 2014 [facility] Bad Cough [facility] and March 08, 2014 [facility] labs [facility] and May 06, 2015 [facility] Unknown [facility] and January 24[facility] 2016 [facility] insurance info [facility] and January 30, 2016 [facility] Refill [facility] and January 31, 2016 [facility] [place] on Esomeprazole 40mg [facility] and December 19, 2014 [facility] [place] on Crestor 10mg [facility] and December 19, 2014 [facility] HOSP FOLLOW UP [facility] and April 17, 2015 [facility] labs [facility] and April 26, 2015 [facility] Unknown [facility] and February 12, 2016 [facility], [facility] Refill [facility] and February 05[facility] 2016 [facility] appt [facility] and March 23, 2016 [facility] appt [facility] and March 30, 2016 [facility] Cancel Appointment Request [facility] and March 19[facility] 2016 [facility] Reschedule Appointment Request [facility] and March 19, 2016 [facility] 4 week follow up [facility] and Jun 16, 2016 [facility] appt. [facility] and May 18, 2016 [facility] Right ear bleeding [facility] and May 19, 2016 [facility] Re:RE:refill and paper to get morris [facility] and Jun 19, 2016 [facility] refill and paper to get morris [facility] and Jun 18, 2016 [facility] Re:RE:issue [facility] and Jun 22, 2016 [facility] issue [facility] and Jun 22[facility] 2016 [facility] PT/INR and mole [facility] and Jun 23, 2016 [facility] [place]/ROX[place]-PT/INR [facility] and Jul 07[facility] 2016 [facility] Cancel Appointment Request [facility] and Jul 02, 2016 [facility] Cancel Appointment Request [facility] and Jul 13, 2016 [facility] nv-pt/inr / Roxanne [facility] and Jul 21, 2016 [facility] Unknown [facility] and Jul 30, 2016 [facility] Problems Problem Type Condition ICD-9 Code Onset Dates Condition Status Problem Benign essential hypertension I10 Active Problem Gastroesophageal reflux disease, K21.9 Active esophagitis presence not specified Problem Other and unspecified E78.5 Active hyperlipidemia Problem Low back pain M54.5 Active Assessment Type 2 diabetes mellitus with E11.65 Active hyperglycemia, without long-term current use of insulin Problem Other chronic pain G89.29 Active Assessment Chronic anticoagulation Z79.01 Active Assessment Neck pain M54.2 Active Problem Type 2 diabetes mellitus with E11.65 Active hyperglycemia, without long-term current use of insulin Problem Depression, unspecified F32.9 Active depression type Problem PE (pulmonary embolism) I26.99 Active Problem Barretts esophagus K22.70 Active Problem Acquired hypothyroidism E03.9 Active Assessment Other and unspecified E78.5 Active hyperlipidemia Assessment Benign essential hypertension I10 Active Assessment Vitamin D deficiency E55.9 Active Assessment Acquired hypothyroidism E03.9 Active Problem Chronic anticoagulation Z79.01 Active Problem Vertigo R42 Active Problem Primary insomnia F51.01 Active Problem Diverticulosis of large K57.30 Active intestine without hemorrhage Problem DVT (deep venous thrombosis) I82.409 Active Problem Vitamin D deficiency E55.9 Active Medications Medication Code System Code Instructions Start End Status Dosage Date Date Rosuvastatin [facility] 05570163621 20 mg Orally Active 1 tablet Calcium Once a day Metformin HCl [facility] [address]-27 500 MG Active TAKE 2 TABLETS BY MOUTH TWICE A DAY WITH MEALS XR [facility] [address]-08 50-1000 MG Oct 26, Active 1 tablet Orally Once a 2017 with a day meal Levothyroxine [facility] 95389961169 125 MCG Orally Active 1 tablet Sodium Once a day, 30 minutes before first meal on an empty stomach Venlafaxine HCl [facility] 69165554735 100 MG Orally Active 1 tablet twice a day (bid) Lisinopril [facility] 02119301156 5 MG Active TAKE 1 TABLET BY MOUTH EVERY DAY Protonix [facility] 66944684290 40 MG Active TAKE 1 TABLET BY MOUTH EVERY DAY Rosuvastatin [facility] 79262976636 20 MG Orally Active 1 tablet Calcium Once a day Flexeril [facility] 23410471574 10 MG Active TAKE 1/2 TO 1 TABLET BY MOUTH EVERY 8 HOURS NEEDED Carvedilol [facility] 80358240990 6.25 MG Orally Active 1 tablet Twice a day with food Warfarin Sodium [facility] 91380053641 5 MG Active TAKE 1 TABLET BY MOUTH EVERY DAY Warfarin Sodium [facility] [address]-66 4 MG Orally Active 1 tablet Once a day [id number]-[id number] [facility] 09134-26860 1 MG Orally Active Unknown Pantoprazole [facility] [address]-23 40 MG Orally Active 1 packet Sodium Once a day Social History Social History Element Qualifiers Date Reported Depression Screening: . negative Oct 26, 2016 Flu Vaccine: . no Oct 26, 2016 Last Colonoscopy: . 2012 Oct 26, 2016 children . 2 Oct 26, 2016 Tobacco Use: . Are you a: former smoker quit Oct 26, 2016 days ago, smoked 20-30 years Use of recreational / street drugs? . Answer: No Oct 26, 2016 Marital Status: . Oct 26, 2016 Do you drink alcohol? . Status: Yes, How often? Socially Oct 26, 2016 Occupation: employed. [employer] Oct 26, 2016 Vital Signs Date/Time: Oct 26, 2016 Blood Pressure Systolic 132 mm Hg Height 66.5 in Cardiac Monitoring Heart Rate 106 /min Blood Pressure Diastolic 86 mm Hg Summary Purpose eClinicalWorks Submission
--- OUTSIDE RECORDS SUMMARY | 2019-05-25 23:32 | XMS REPORT ---
:1965 Author Organization e[employer]Works Care Team Providers Name Role Phone Roxanne Pantoja Provider Role Unavailable Allergies, Adverse Reactions, Alerts Substance Reaction Event Type Adhesive Bandages Info Not Available Drug Allergy Keflex abdomen pain Drug Allergy Doxycycline Hyclate abdomen pain Drug Allergy Dilaudid hallucinations Drug Allergy Encounters Encounter Location Date REFILL [facility] and March 21, 2014 [facility] 1 month follow up [facility] and Oct 26, 2016 [facility] Cancel Appointment Request [facility] and Sep 29, 2016 [facility] pt-inr/roxanne [facility] and Nov 02, 2016 [facility] Re:RE:copy of blood work done in [facility] and Aug [facility] ABDOMINAL PAIN [facility] and Aug 21, 2014 [facility] Re:RE:Re:RE:refill and paper to get [facility] and Sep 09, 2016 morris [facility] Unknown [facility] and Aug 27, 2014 [facility] FOLLOW UP AND BLOODWORK/PT-INR [facility] and Sep 18, 2016 [facility] 1 day follow up [facility] and Aug 22, 2014 [facility] Reschedule Appointment Request [facility] and Sep 29, 2016 [facility] 2 DAY FOLLOW UP [facility] and Aug 24, 2014 [facility] 1 day follow-up/ leg is still [facility] and April 19, 2014 swollen [facility] Unknown [facility] and Aug 21, 2014 [facility] leg swelling [facility] and April 18, 2014 [facility] copy of blood work done in july [facility] and Aug 28, 20162015 [facility] Test results [facility] and April 24, 2014 [facility] COUGH [facility] and Nov 30, 2014 [facility] REFILL [facility] and January 15, 2014 [facility] Prior Auth [facility] and January 16, 2014 [facility] Unknown [facility] and January 29, 2014 [facility] Test results [facility] and January 30, 2014 [facility] PHYSICAL [facility] and Jun 13, 2013 [facility] Test results [facility] and Jun 27, 2013 [facility] Unknown [facility] and January 09, 2014 [facility] Follow-Up [facility] and December 19, 2014 [facility] FOLLOW-UP [facility] and December 11, 2014 [facility] STOMACH PAIN [facility] and January 29, 2014 [facility] Bad Cough [facility] and March 08, 2014 [facility] labs [facility] and May 06, 2015 [facility] Unknown [facility] and January 24, 2016 [facility] insurance info [facility] and January 30, 2016 [facility] Refill [facility] and January 31, 2016 [facility] PA on Esomeprazole 40mg [facility] and December 19, 2014 [facility] [place] on Crestor 10mg [facility] and December 19, 2014 [facility] HOSP FOLLOW UP [facility] and April 17, 2015 [facility] labs [facility] and April 26, 2015 [facility] Unknown [facility] and February 12, 2016 [facility] Refill [facility] and February 05, 2016 [facility] appt [facility] and March 23, 2016 [facility] appt [facility] and March 30, 2016 [facility] Cancel Appointment Request [facility] and March 19, 2016 [facility] Reschedule Appointment Request [facility] and March 19, 2016 [facility] 4 week follow up [facility] and Jun 16, 2016 [facility] appt. [facility] and May 18, 2016 [facility] Right ear bleeding [facility] and May 19, 2016 [facility] Re:RE:refill and paper to get morris [facility] and Jun 19, 2016 [facility] refill and paper to get morris [facility] and Jun 18, 2016 [facility] Re:RE:issue [facility] and Jun 22, 2016 [facility] issue [facility] and Jun 22, 2016 [facility] PT/INR and mole [facility] and Jun 23, 2016 [facility] NV/ROXANNE-PT/INR [facility] and Jul 07, 2016 [facility] Cancel Appointment Request [facility] and Jul 02, 2016 [facility] Cancel Appointment Request [facility] and Jul 13, 2016 [facility] nv-pt/inr / Roxanne [facility] and Jul 21, 2016 [facility] Unknown [facility] and Jul 30, 2016 Internal [...] Start End Status Dosage Date Date Levothyroxine [facility] 38110611981 125 MCG Orally Active 1 tablet Sodium Once a day, 30 minutes before first meal on an empty stomach Pantoprazole [facility] [address]-86 40 MG Orally Active 1 packet Sodium Once a day Rosuvastatin [facility] 84043036121 20 mg Orally Active 1 tablet Calcium Once a day Protonix [facility] 37157988540 40 MG Active TAKE 1 TABLET BY MOUTH EVERY DAY Warfarin Sodium [facility] [address]-65 4 MG Orally Active 1 tablet Once a day Flexeril [facility] 01633829377 10 MG Active TAKE 1/2 TO 1 TABLET BY MOUTH EVERY 8 HOURS NEEDED Warfarin Sodium [facility] 96797196214 5 MG Active TAKE 1 TABLET BY MOUTH EVERY DAY G56-Lgeifv [facility] 21693-61025 1 MG Orally Active Unknown Venlafaxine HCl [facility] 84596613848 100 MG Orally Active 1 tablet twice a day (bid) Octumet XR [facility] [address]-86 50-1000 MG Oct 26, Active 1 tablet Orally Once a 2017 with a day meal Lisinopril [facility] 80794426176 5 MG Active TAKE 1 TABLET BY MOUTH EVERY DAY Metformin HCl [facility] [address]-92 500 MG Active TAKE 2 TABLETS BY MOUTH TWICE A DAY WITH MEALS Carvedilol [facility] 14508204572 6.25 MG Orally Active 1 tablet Twice a day with food Social History Social History Element Qualifiers Date Reported Depression Screening: . negative Nov 02, 2016 Flu Vaccine: . no Nov 02, 2016 Last Colonoscopy: . 2012 Nov 02, 2016 children . 2 Nov 02, 2016 Tobacco Use: . Are you a: former smoker quit Nov 02, 2016 days ago, smoked 20-30 years Use of recreational / street drugs? . Answer: No Nov 02, 2016 Marital Status: . Nov 02, 2016 Do you drink alcohol? . Status: Yes, How often? Socially Nov 02, 2016 Occupation: employed. [employer] Nov 02, 2016 Vital Signs Date/Time: Nov 02, 2016 Blood Pressure Diastolic 79 mm Hg Blood Pressure Systolic 160 mm Hg Height 66.5 in Cardiac Monitoring Heart Rate 103 /min Summary Purpose eClinicalWorks Submission
--- OUTSIDE RECORDS SUMMARY | 2019-05-25 23:32 | XMS REPORT ---
:1965 Author Organization [employer]Works Care Team Providers Name Role Phone Roxanne Pantoja Provider Role Unavailable Encounters Encounter Location Date REFILL [facility] and March 21, 2014 [facility] 1 month follow up [facility] and Oct 26, 2016 [facility] Cancel Appointment Request [facility] and Sep 29, 2016 [facility] pt-inr/roxanne [facility] and Dec 07, 2016 [facility] pt-inr/roxanne [facility] and Nov 02, 2016 [facility] Re:RE:copy of blood work done in [facility] and Aug [facility] ABDOMINAL PAIN [facility] and Aug 21, 2014 [facility] Re:RE:Re:RE:refill and paper to get [facility] and Sep 09, 2016 morris [facility] Unknown [facility] and Aug 27, 2014 [facility] FOLLOW UP AND BLOODWORK/PT-INR [facility] and Sep 18, 2016 [facility] 1 day follow up [facility] and Aug 22, 2014 [facility] Reschedule Appointment Request [facility] and Sep 29, 2016 [facility] 2 DAY FOLLOW UP [facility] and Aug 24, 2014 [facility] 1 day follow-up/ leg is still [facility] and April 19, 2014 swollen [facility] Unknown [facility] and Aug 21, 2014 [facility] leg swelling [facility] and April 18, 2014 [facility] copy of blood work done in july [facility] and Aug 28, 20162015 [facility] Test results [facility] and April 24, 2014 [facility] COUGH [facility] and Nov 30, 2014 [facility] REFILL [facility] and January 15, 2014 [facility] Prior Auth [facility] and January 16, 2014 [facility] Unknown [facility] and January 29, 2014 [facility] Test results [facility] and January 30, 2014 [facility] PHYSICAL [facility] and Jun 13, 2013 [facility] Test results [facility] and Jun 27, 2013 [facility] Unknown [facility] and January 09, 2014 [facility] Follow-Up [facility] and December 19, 2014 [facility] FOLLOW-UP [facility] and December 11, 2014 [facility] STOMACH PAIN [facility] and January 29, 2014 [facility] Bad Cough [facility] and March 08, 2014 [facility] labs [facility] and May 06, 2015 [facility] Unknown [facility] and January 24, 2016 [facility] insurance info [facility] and January 30, 2016 [facility] Refill [facility] and January 31, 2016 [facility] [place] on Esomeprazole 40mg [facility] and December 19, 2014 [facility] [place] on Crestor 10mg [facility] and December 19, 2014 [facility] HOSP FOLLOW UP [facility] and April 17, 2015 [facility] labs [facility] and April 26, 2015 [facility] Unknown [facility] and February 12, 2016 [facility] February 07, 2016 [facility] Refill [facility] and February 05, 2016 [facility] appt [facility] and March 23, 2016 [facility] appt [facility] and March 30, 2016 [facility] Cancel Appointment Request [facility] and March 19, 2016 [facility] Reschedule Appointment Request [facility] and March 19, 2016 [facility] 4 week follow up [facility] and Jun 16, 2016 [facility] appt. [facility] and May 18, 2016 [facility] Right ear bleeding [facility] and May 19, 2016 [facility] Re:RE:refill and paper to get morris [facility] and Jun 19, 2016 [facility] refill and paper to get morris [facility] and Jun 18, 2016 [facility] Re:RE:issue [facility] and Jun 22, 2016 [facility] issue [facility] and Jun 22, 2016 [facility] PT/INR and mole [facility] and Jun 23, 2016 [facility] [place]/ROXANNE-PT/INR [facility] and Jul 07, 2016 [facility] Cancel Appointment Request [facility] and Jul 02, 2016 [facility] Cancel Appointment Request [facility] and Jul 13, 2016 [facility] nv-pt/inr / Roxanne [facility] and Jul 21, 2016 [facility] Unknown [facility] and Jul 30, 2016 Internal [...] without long-term current use of insulin Assessment DVT (deep venous thrombosis) I82.409 Active Problem Chronic anticoagulation Z79.01 Active Problem Vertigo R42 Active Problem Primary insomnia F51.01 Active Problem Diverticulosis of large K57.30 Active intestine without hemorrhage Problem DVT (deep venous thrombosis) I82.409 Active Problem Vitamin D deficiency E55.9 Active Medications Medication Code System Code Instructions Start End Status Dosage Date Date XR [facility] [address]-15 50-1000 MG Oct 26, Active 2 tablet Orally Once a 2017 with a day meal Venlafaxine HCl [facility] 56425294959 100 MG Orally Active 1 tablet twice a day (bid) Protonix [facility] 91831501625 40 MG Active TAKE 1 TABLET BY MOUTH EVERY DAY R81-Hxeesy [facility] [address]472 1 MG Orally Active Unknown Pantoprazole [facility] [address]-60 40 MG Orally Active 1 packet Sodium Once a day Warfarin Sodium [facility] [address]-51 5 MG 3 time a Active Unknown week Carvedilol [facility] 00748073897 6.25 MG Orally Active 1 tablet Twice a day with food Flexeril [facility] 02662451957 10 MG Active TAKE 1/2 TO 1 TABLET BY MOUTH EVERY 8 HOURS NEEDED Lisinopril [facility] 55970294784 5 MG Active TAKE 1 TABLET BY MOUTH EVERY DAY Warfarin Sodium [facility] [address]-51 4 MG Orally 4 Active 1 tablet time a week Rosuvastatin [facility] 74259989291 20 mg Orally Active 1 tablet Calcium Once a day Metformin HCl [facility] [address]-87 500 MG Inactive TAKE 2 TABLETS BY MOUTH TWICE A DAY WITH MEALS Levothyroxine [facility] 39144957736 125 MCG Orally Active 1 tablet Sodium [...] Sales Nov 02, 2016 Vital Signs Date/Time: Dec 07, 2016 Blood Pressure Systolic 116 mm Hg Height 66.5 in Cardiac Monitoring Heart Rate 84 /min Blood Pressure Diastolic 70 mm Hg Results PROTHROMBIN TIME-INR Summary Purpose eClinicalWorks Submission
--- OUTSIDE RECORDS SUMMARY | 2019-05-25 23:32 | XMS REPORT ---
:1965 Author Organization eClinicalWorks Care Team Providers Name Role Phone Roxanne Pantoja Provider Role Unavailable Allergies, Adverse Reactions, Alerts Substance Reaction Event Type Adhesive Bandages Info Not Available Drug Allergy Keflex abdomen pain Drug Allergy Doxycycline Hyclate abdomen pain Drug Allergy Dilaudid hallucinations Drug Allergy Encounters Encounter Location Date REFILL [facility] and March 21, 2014 [facility] Re:RE:copy of blood work done in [facility] and Aug [facility] ABDOMINAL PAIN [facility] and Aug 21, 2014 [facility] Re:RE:Re:RE:refill and paper to get [facility] and Sep 09, 2016 morris [facility] Unknown [facility] and Aug 27, 2014 [facility] FOLLOW UP AND BLOODWORK/PT-INR [facility] and Sep 18, 2016 [facility] [...] copy of blood work done in july [facility] and Aug 28, 20162015 [facility] Test results [facility] and April 24, 2014 [facility] COUGH [facility] and Nov 30, 2014 [facility] REFILL [facility] and January 15, [...] January 09, 2014 [facility] Follow-Up [facility] and December 19, 2014 [facility] FOLLOW-UP [facility] and December 11, 2014 [facility] STOMACH PAIN [facility] and January 29, 2014 [facility] Bad Cough [facility] and March 08, 2014 [facility] labs [facility] and May 06, 2015 [facility] Unknown [facility] and January 24, 2016 [facility] insurance info [facility] and January 30, 2016 [facility] Refill [facility] and January 31, 2016 [facility] [place] on Esomeprazole 40mg [facility] and December 19, 2014 [facility] [place] on Crestor 10mg [facility] and December 19, 2014 [facility] HOSP FOLLOW UP [facility] and April 17, 2015 [facility] labs [facility] and April 26, 2015 [facility] Unknown [facility] and February 12, 2016 [facility], [facility] Refill [facility] and February 05, 2016 [facility] appt [facility] and March 23, 2016 [facility] appt [facility] and March 30, 2016 [facility] Cancel Appointment Request [facility] and March 19, 2016 [facility] Reschedule Appointment Request [facility] and March 19, 2016 [facility] 4 week follow up [facility] and Jun 16, 2016 [facility] appt. [facility] and May 18, 2016 [facility] Right ear bleeding [facility] and May 19, 2016 [facility] Re:RE:refill and paper to get morris [facility] and Jun 19, 2016 [facility] refill and paper to get morris [facility] and Jun 18, 2016 [facility] Re:RE:issue [facility] and Jun 22, 2016 [facility] issue [facility] and Jun 22, 2016 [facility] PT/INR and mole [facility] and Jun 23, 2016 [facility] [place]/ROXANNE-PT/INR [facility] and Jul 07, 2016 [facility] Cancel Appointment Request [facility] and Jul 02, 2016 [facility] Cancel Appointment Request [facility] and Jul 13, 2016 [facility] nv-pt/inr / Roxanne [facility] and Jul 21, 2016 [facility] Unknown [facility] and Jul 30, 2016 [facility] Problems Problem Type Condition ICD-9 Code Onset Dates Condition Status Problem Benign essential hypertension I10 Active Problem Gastroesophageal reflux disease, K21.9 Active esophagitis presence not specified Problem Other and unspecified E78.5 Active hyperlipidemia Problem Low back pain M54.5 Active Assessment Acquired hypothyroidism E03.9 Active Problem Other chronic pain G89.29 Active Problem Type 2 diabetes mellitus with E11.65 Active hyperglycemia, without long-term current use of insulin Problem Depression, unspecified F32.9 Active depression type Problem PE (pulmonary embolism) I26.99 Active Problem Barretts esophagus K22.70 Active Problem Acquired hypothyroidism E03.9 Active Assessment Vitamin D deficiency E55.9 Active Assessment Type 2 diabetes mellitus with E11.65 Active hyperglycemia, without long-term current use of insulin Assessment Chronic anticoagulation Z79.01 Active Assessment Benign essential hypertension I10 Active Problem Chronic anticoagulation Z79.01 Active Problem Vertigo R42 Active Problem Primary insomnia F51.01 Active Problem Diverticulosis of large K57.30 Active intestine without hemorrhage Problem DVT (deep venous thrombosis) I82.409 Active Problem Vitamin D deficiency E55.9 Active Medications Medication Code System Code Instructions Start End Status Dosage Date Date Levothyroxine [facility] 77146878285 125 MCG Orally Active 1 tablet Sodium Once a day, 30 minutes before first meal on an empty stomach Carvedilol [facility] 05493033297 6.25 MG Orally Active 1 tablet Twice a day with food Protonix [facility] 34877006904 40 MG Active TAKE 1 TABLET BY MOUTH EVERY DAY Warfarin Sodium [facility] [address]-37 4 MG Orally Aug 25, Active 1 tablet Once a day 2015 (MUST SEE DOCTOR BEFORE NEXT REFILL) Flexeril [facility] 03848598149 10 MG Active TAKE 1/2 TO 1 TABLET BY MOUTH EVERY 8 HOURS NEEDED Metformin HCl [facility] [address]-08 500 mg Orally Active 2 tablet Twice a day with meals Rosuvastatin [facility] 12602052815 20 mg Orally Active 1 tablet Calcium Once a day Venlafaxine HCl [facility] 71410490195 100 MG Orally Active 1 tablet twice a day (bid) Lisinopril [facility] 49856353461 5 MG Active TAKE 1 TABLET BY MOUTH EVERY DAY Pantoprazole [facility] [address]-84 40 MG Orally Active 1 packet Sodium Once a day Warfarin Sodium [facility] 75004973052 5 MG Active TAKE 1 TABLET BY MOUTH EVERY DAY Social History Social History Element Qualifiers Date Reported Depression Screening: . negative Sep 18, 2016 Flu Vaccine: . no Sep 18, 2016 Last Colonoscopy: . 2012 Sep 18, 2016 children . 2 Sep 18, [...] employed. [employer] Sep 18, 2016 Vital Signs Date/Time: Sep 18, 2016 Blood Pressure Systolic 130 mm Hg Height 66.5 in Cardiac Monitoring Heart Rate 90 /min Blood Pressure Diastolic 82 mm Hg Results PROTHROMBIN TIME-INR Summary Purpose eClinicalWorks Submission
--- OUTSIDE RECORDS SUMMARY | 2019-05-25 23:32 | XMS REPORT ---
:1965 Author Organization [employer] Care Team Providers Name Role Phone Madelaine Garcia Provider Role Unavailable Encounters Encounter Location Date REFILL [facility] and March 21, 2014 [facility] Cancel Appointment Request [facility] and Sep 29, 2016 [facility] Re:RE:copy of blood work done in [facility] and Aug [facility] ABDOMINAL PAIN [facility] and Aug 21, 2014 [facility] Re:RE:Re:RE:refill and paper to get [facility] and Sep 09, 2016 morris [facility] Unknown [facility] and Aug 27, 2014 [facility] FOLLOW UP AND BLOODWORK/PT-INR [facility] and Sep 18, 2016 [facility] 1 day follow up [facility] and Aug 22, 2014 [facility] Reschedule Appointment Request [facility] and Sep 29, 2016 [facility] 2 DAY FOLLOW UP [facility] and Aug 24, 2014 [facility] 1 day follow-up/ leg is still [facility] and April 19, 2014 swollen [facility] Unknown [facility] and Aug 21, 2014 [facility] leg swelling [facility] and April 18, 2014 [facility] copy of blood work done in july [facility] and Aug 28, 20162015 [facility] Test results [facility] and April 24, 2014 [facility] COUGH [facility] and Nov 30, 2014 [facility] REFILL [facility] and January 15, 2014 [facility] Prior Auth [facility] and January 16[facility] 2014 [facility] Unknown [facility] and January 29, 2014 [facility] Test results [facility] and January 30, 2014 [facility] PHYSICAL [facility] and Jun 13, 2013 [facility] Test results [facility] and Jun 27, 2013 [facility] Unknown [facility] and January 09, 2014 [facility] Follow-Up [facility] and December 19, 2014 [facility] FOLLOW-UP [facility] and December 11, 2014 [facility] STOMACH PAIN [facility] and January 29, 2014 [facility] Bad Cough [facility] and March 08, 2014 [facility] labs [facility] and May 06, 2015 [facility] Unknown [facility] and January 24, 2016 [facility] insurance info [facility] and January 30, 2016 [facility] Refill [facility] and January 31, 2016 [facility] [place] on Esomeprazole 40mg [facility] and December 19, 2014 [facility] [place] on Crestor 10mg [facility] and December 19, 2014 [facility] HOSP FOLLOW UP [facility] and April 17, 2015 [facility] labs [facility] and April 26, 2015 [facility] Unknown [facility] and February 12, 2016 [facility] Blood work-Roxanne [facility] and February 07, 2016 [facility] Refill [facility] and February 05, 2016 [facility] appt [facility] and March 23, 2016 [facility] appt [facility] and March 30, 2016 [facility] Cancel Appointment Request [facility] and March 19, 2016 [facility] Reschedule Appointment Request [facility] and March 19, 2016 [facility] 4 week follow up [facility] and Jun 16, 2016 [facility] appt. [facility] and May 18, 2016 [facility] Right ear bleeding [facility] and May 19, 2016 [facility] Re:RE:refill and paper to get morris [facility] and Jun 19, 2016 [facility] refill and paper to get morris [facility] and Jun 18, 2016 [facility] Re:RE:issue [facility] and Jun 22, 2016 [facility] issue [facility] and Jun 22, 2016 [facility] PT/INR and mole [facility] and Jun 23, 2016 [facility] [place]/ROXANNE-PT/INR [facility] and Jul 07, 2016 [facility] Cancel Appointment Request [facility] and Jul 02, 2016 [facility] Cancel Appointment Request [facility] and Jul 13, 2016 [facility] nv-pt/inr / Roxanne [facility] and Jul 21, 2016 [facility] Unknown [facility] and Jul 30, 2016 Internal [...]
--- OUTSIDE RECORDS SUMMARY | 2019-05-25 23:32 | XMS REPORT ---
:1965 Author Organization [employer] Care Team Providers Name Role Phone Roxanne Pantoja Provider Role Unavailable Encounters Encounter Location Date REFILL [facility] and March 21, 2014 [facility] Re:RE:copy of blood work done in [facility] and Aug [facility] ABDOMINAL PAIN [facility] and Aug 21, 2014 [facility] Re:RE:Re:RE:refill and paper to get [facility] and Sep 09, 2016 morris [facility] Unknown [facility] and Aug 27, 2014 [facility] 1 day follow up [facility] and Aug 22, 2014 [facility] 2 DAY FOLLOW UP [facility] and Aug 24, 2014 [facility] 1 day follow-up/ leg is still [facility] and April 19, 2014 swollen [facility] Unknown [facility] and Aug 21, 2014 [facility] leg swelling [facility] and April 18, 2014 [facility] copy of blood work done in july [facility] and Aug 28, 20162015 [facility] Test results [facility] and April 24, 2014 [facility] and Nov 30, 2014 [facility] REFILL [facility] and January 15, 2014 [facility] Prior Auth [facility] and January 16, 2014 [facility] Unknown [facility] and January 29[facility] 2014 [facility] Test results [facility] and January 30, 2014 [facility] PHYSICAL [facility] and Jun 13, 2013 [facility] Test results [facility] and Jun 27, 2013 [facility] Unknown [facility] and January 09, 2014 [facility] Follow-Up [facility] and December 19, 2014 [facility] FOLLOW-UP [facility] and December 11, 2014 [facility] STOMACH PAIN [facility] and January 29, 2014 [facility] Bad Cough [facility] and March 08, 2014 [facility] labs [facility] and May 06, 2015 [facility] Unknown [facility] and January 24, 2016 [facility] insurance info [facility] and January 30, 2016 [facility] Refill [facility] and January 31, 2016 [facility] [place] on Esomeprazole 40mg [facility] and December 19, 2014 [facility] [place] on Crestor 10mg [facility] and December 19, 2014 [facility] HOSP FOLLOW UP [facility] and April 17, 2015 [facility] labs [facility] and April 26, 2015 [facility] Unknown [facility] and February 12[facility] 2016 [facility], [facility] Refill [facility] and February 05, 2016 [facility] appt [facility] and March 23[facility] 2016 [facility] appt [facility] and March 30, 2016 [facility] Cancel Appointment Request [facility] and March 19[facility] 2016 [facility] Reschedule Appointment Request [facility] and March 19, 2016 [facility] 4 week follow up [facility] and Jun 16, 2016 [facility] appt. [facility] and May 18, 2016 [facility] Right ear bleeding [facility] and May 19, 2016 [facility] Re:RE:refill and paper to get morris [facility] and Jun 19, 2016 [facility] refill and paper to get morris [facility] and Jun 18, 2016 [facility] Re:RE:issue [facility] and Jun 22, 2016 [facility] issue [facility] and Jun 22, 2016 [facility] PT/INR and mole [facility] and Jun 23, 2016 [facility] [place]/ROXANNE-PT/INR [facility] and Jul 07, 2016 [facility] Cancel Appointment Request [facility] and Jul 02, 2016 [facility] Cancel Appointment Request [facility] and Jul 13, 2016 [facility] nv-pt/inr / Roxanne [facility] and Jul 21, 2016 [facility] Unknown [facility] and Jul 30, 2016 [facility] [...]
--- OUTSIDE RECORDS SUMMARY | 2019-05-25 23:32 | XMS REPORT ---
:1965 Author Organization [employer] Care Team Providers Name Role Phone Madelaine Garcia Provider Role Unavailable Encounters Encounter Location Date REFILL [facility] and March 21, 2014 [facility] Re:RE:copy of blood work done in [facility] and Aug [facility] ABDOMINAL PAIN [facility] and Aug 21, 2014 [facility] Unknown [facility] and Aug 27, 2014 [facility] 1 day follow up [facility] and Aug 22, 2014 [facility] 2 DAY FOLLOW UP [facility] and Aug 24, 2014 [facility] 1 day follow-up/ leg is still [facility] and April 19, 2014 swollen [facility] Unknown [facility] and Aug 21, 2014 [facility] leg swelling [facility] and April 18, 2014 [facility] copy of blood work done in july [facility] and Aug 28, 20162015 [facility] Test results [facility] and April 24, 2014 [facility] COUGH [facility] and Nov 30, 2014 [facility] REFILL [facility] and January 15, 2014 [facility] Prior Auth [facility] and January 16, 2014 [facility] Unknown [facility] and January 29, 2014 [facility] Test results [facility] and January 30, 2014 [facility] PHYSICAL [facility] and Jun 13, 2013 [facility] Test results [facility] and Jun 27, 2013 [facility] Unknown [facility] and January 09, 2014 [facility] Follow-Up [facility] and December 19, 2014 [facility] FOLLOW-UP [facility] and December 11, 2014 [facility] STOMACH PAIN [facility] and January 29, 2014 [facility] Bad Cough [facility] and March 08, 2014 [facility] labs [facility] and May 06, 2015 [facility] Unknown [facility] and January 24, 2016 [facility] insurance info [facility] and January 30, 2016 [facility] Refill [facility] and January 31, 2016 [facility] [place] on Esomeprazole 40mg [facility] and December 19, 2014 [facility] [place] on Crestor 10mg [facility] and December 19, 2014 [facility] HOSP FOLLOW UP [facility] and April 17, 2015 [facility] labs [facility] and April 26, 2015 [facility] Unknown [facility] and February 12, 2016 [facility] Blood work-Roxanne [facility] and February 07, 2016 [facility] Refill [facility] and February 05, 2016 [facility] appt [facility] and March 23, 2016 [facility] appt [facility] and March 30, 2016 [facility] Cancel Appointment Request [facility] and March 19, 2016 [facility] Reschedule Appointment Request [facility] and March 19, 2016 [facility] 4 week follow up [facility] and Jun 16, 2016 [facility] appt. [facility] and May 18, 2016 [facility] Right ear bleeding [facility] and May 19, 2016 [facility] Re:RE:refill and paper to get morris [facility] and Jun 19, 2016 [facility] refill and paper to get morris [facility] and Jun 18, 2016 [facility] Re:RE:issue [facility] and Jun 22, 2016 [facility] issue [facility] and Jun 22, 2016 [facility] PT/INR and mole [facility] and Jun 23, 2016 [facility] [place]/ROXANNE-PT/INR [facility] and Jul 07, 2016 [facility] Cancel Appointment Request [facility] and Jul 02, 2016 [facility] Cancel Appointment Request [facility] and Jul 13, 2016 [facility] nv-pt/inr / Roxanne [facility] and Jul 21, 2016 [facility] Unknown [facility] and Jul 30, 2016 [facility] [...] no Aug 21, 2016 Last Colonoscopy: . 2012 Aug 21, 2016 children . 2 Aug 21, [...]
--- OUTSIDE RECORDS SUMMARY | 2019-05-25 23:33 | XMS REPORT | Continuity of Care Document ---
:1965 Author Organization [facility] Address [address] [place] [address] Phone Unavailable Care Team Providers Name Role Phone DAVION GARCIA DO Primary Care Physician Insurance Providers Guarantor Marlys Garnett Address [address] [place] [address] Email [email or web address] Payer [employer] Policy Number [id number] Subscriber's Name Marlys Garnett Relationship 18 Self / Same As Patient Group Number [id number] Effective Date 17 Advance Directives Directive Response Recorded Date/Time Does the patient have an advance directive? No 03/13/12 7:00pm If yes, is advance directive on file with [facility]? No 03/13/12 7:00pm If not on file with [facility] will patient provide a copy? Yes 03/27/18 7:53pm Do you have a Directive to Physician? No 07/14/18 4:42pm Do you have a Medical Power of Pediatric Neuropsychologist? No 07/14/18 4:42pm Do you have an [...] patient rights and responsibilities? Yes 07/14/18 4:42pm Problems No problem information available. Medications Current Home Medications Medication Dose Units Route Directions Days Qty Instructions Start Date Carvedilol 12.5 Mg Oral Twice A Day Cholestyramine 4 Gm Oral Daily (With Sugar) (Questran Packet) 4 Gm Packet Exenatide (Byetta) Sub-Q Twice A Day 5 Mcg/0.02 Ml Pen.injctr Hyoscyamine Mg Oral Four Times Sulfate (Levsin) Daily 0.125 Mg Tablet Levothyroxine 125 Mcg Oral Today At 30 Tab Sodium (Synthroid) 6:30AM 125 Mcg Tab Lovenox 80 Mg Sub-Q Twice A Day Meclizine Hcl 12.5 12.5 Mg Oral As Needed Mg Tablet Ondansetron 4 Mg Oral As Needed (Zofran Odt) 4 Mg Tab.tracy Pantoprazole 40 Mg Oral Sodium (Protonix) 40 Mg Tablet. Promethazine Hcl 12.5 Mg Oral As Needed 25 Mg Tablet Propranolol Hcl 10 10 Mg Oral Four Times 30 Days 90 Tab 07/14/18 Mg Tablet Daily Rosuvastatin 20 Mg Oral Daily Calcium (Crestor) 20 Mg Tablet Sertraline Hcl 100 100 Mg Oral Bedtime Mg Tablet Sucralfate 1 Gm 1 Gm Oral Twice A Day Tablet Tramadol Hcl 50 Mg Oral Every 6 Hours 10 Tab 07/14/18 (Ultram) 50 Mg as needed for Tablet Pain Warfarin Sodium 2 4 Mg Oral Daily Mg Tablet Past Home Medications Medication Directions Ordered Status Cavedilol , Discontinued Duloxetine Hcl (Cymbalta) 60 Mg Capsule., 60 Mg Daily Discontinued Oral Enoxaparin Sodium (Lovenox) 120 Mg/0.8 Ml Disp.syrin, Daily Discontinued 40 Mg Sub-Q Folic Acid 0.8 Mg Tablet, Discontinued Glimepiride 4 Mg Tablet, 4 Mg Oral Daily Discontinued Lisinopril 5 Mg Tablet, 5 Mg Oral Daily Discontinued Pravastatin Sodium 40 Mg Tablet, 20 Mg Oral Daily Discontinued Thyroid ([place] Thyroid) 90 Mg Tablet, 90 Mg Oral Daily Discontinued Social History Social History Response Recorded Date/Time Onset Date Status Problem Hx Psychiatric Y - DEPRESSION 03/13/2012 7:00pm Not Applicable Not Applicable Problems Hx Eating Disorder No 03/13/2012 7:00pm Not Applicable Not Applicable Hx Substance Use No 03/13/2012 7:00pm Not Applicable Not Applicable Disorder Hx Depression Yes 03/13/2012 7:00pm Not Applicable Not Applicable Hx Alcohol Use No 03/13/2012 7:00pm Not Applicable Not Applicable Hx Substance Use No 03/13/2012 7:00pm Not Applicable Not Applicable Treatment Hx Physical Abuse No 03/13/2012 7:00pm Not Applicable Not Applicable Smoking Status Start Date Stop Date Never Smoker Hospital Discharge Instructions No hospital discharge instruction information available. Plan of Care Discharge Date 07/14/18 7:04pm Disposition HOME, SELF-CARE Condition at Discharge Stable Instructions/Education Provided Abdominal Pain - Adult Forms Provided Work/School Excuse Prescriptions See Medication Section Referrals MG CONTRERAS MD Address: [address] [place] [id number] Additional Instructions/Education 1. Your Ct shows liver cirhosis and portal HTN, please see the textile coating machine operator provided 2. Please return to the ED if you begin to develop vomiting or inability to have have a BM as this may be a sign of a SBO. Functional Status No functional status information available. Allergies, Adverse Reactions, Alerts Allergen Type Severity Reaction Status Last Updated Cephalexin Allergy Mild Active 07/14/18 Doxycycline Allergy Mild Active 07/14/18 Hydromorphone Allergy Mild HALLUCINATIONS Active 07/14/18 Immunizations No immunization information available. Vital Signs Acute Vital Signs Vital Response Date/Time Temperature (Fahrenheit) 98.3 degrees F (97.6 - 99.5) 07/14/2018 7:15pm Pulse Pulse Rate (adult) 83 bpm (60 - 90) 07/14/2018 7:15pm Respiratory Rate 20 bpm (12 - 24) 07/14/2018 7:15pm Blood Pressure 124/71 mm Hg 07/14/2018 7:15pm Height 5 ft 6 in 07/14/2018 1:30pm Weight 243 lb 07/14/2018 1:30pm Body Mass Index 39.2 kg/m^2 07/14/2018 1:30pm Results Laboratory Results Test Name Result Units Flags Reference Collection Result Comments Date/Time Date/Time Bedside Glucose 171 mg/dL H 70-120 05/05/2018 05/05/2018 Meter ID: 6:37am 6:44am [id number] White Blood Count 7.35 x10e3/uL 4.8-10.8 07/14/2018 07/14/2018 1:36pm 2:31pm Red Blood Count 5.00 x10e6/uL 3.6-5.1 07/14/2018 07/14/2018 1:36pm 2:31pm Hemoglobin 13.2 g/dL 12.0-16.0 07/14/2018 07/14/2018 1:36pm 2:31pm Hematocrit 42.6 % 34.2-44.1 07/14/2018 07/14/2018 1:36pm 2:31pm Mean Corpuscular 85.2 fL 81-99 07/14/2018 07/14/2018 Volume 1:36pm 2:31pm Mean Corpuscular 26.4 pg L 28-32 07/14/2018 07/14/2018 Hemoglobin 1:36pm 2:31pm Mean Corpuscular 31.0 g/dL 31-35 07/14/2018 07/14/2018 Hemoglobin 1:36pm 2:31pm Concent Red Cell 18.6 % H 11.7-14.4 07/14/2018 07/14/2018 Distribution 1:36pm 2:31pm Width Platelet Count 160 x10e3/uL 140-360 07/14/2018 07/14/2018 1:36pm 2:31pm Neutrophils (%) 72.5 % 38.7-80.0 07/14/2018 07/14/2018 (Auto) 1:36pm 2:31pm Lymphocytes (%) 17.7 % L 18.0-39.1 07/14/2018 07/14/2018 (Auto) 1:36pm 2:31pm Monocytes (%) 6.1 % 4.4-11.3 07/14/2018 07/14/2018 (Auto) 1:36pm 2:31pm Eosinophils (%) 2.4 % 0.0-6.0 07/14/2018 07/14/2018 (Auto) 1:36pm 2:31pm Basophils (%) 1.0 % 0.0-1.0 07/14/2018 07/14/2018 (Auto) 1:36pm 2:31pm IM GRANULOCYTES % 0.3 % 0.0-1.0 07/14/2018 07/14/2018 1:36pm 2:31pm Neutrophils # 5.3 2.1-6.9 07/14/2018 07/14/2018 (Auto) 1:36pm 2:31pm Lymphocytes # 1.3 1.0-3.2 07/14/2018 07/14/2018 (Auto) 1:36pm 2:31pm Monocytes # 0.5 0.2-0.8 07/14/2018 07/14/2018 (Auto) 1:36pm 2:31pm Eosinophils # 0.2 0.0-0.4 07/14/2018 07/14/2018 (Auto) 1:36pm 2:31pm Basophils # 0.1 0.0-0.1 07/14/2018 07/14/2018 (Auto) 1:36pm 2:31pm Absolute Immature 0.02 x10e3/uL 0-0.1 07/14/2018 07/14/2018 Granulocyte (auto 1:36pm 2:31pm Prothrombin Time 26.1 seconds H 11.9-14.5 07/14/2018 07/14/2018 1:36pm 2:39pm Prothromb Time 2.20 07/14/2018 07/14/2018 Oral Anticoagulant Therapy INR Values: International 1:36pm 2:39pm 1. Low Intensity Therapy 1.5 - 2.0 Ratio 2. Moderate Intensity Therapy 2.0 - 3.0 3. High Intensity Therapy(1) 2.5 - 3.5 4. High Intensity Therapy(2) 3.0 - 4.0 5. Panic Value INR > 5.0 Activated Partial 44.8 seconds H 23.8-35.5 07/14/2018 07/14/2018 Thromboplast Time 1:36pm 2:39pm Urine Color YELLOW YELLOW 07/14/2018 07/14/2018 1:36pm 2:35pm Urine Clarity SL CLOUDY CLEAR 07/14/2018 07/14/2018 1:36pm 2:35pm Urine Specific 1.025 1.010-1.02 07/14/2018 07/14/2018 [place]vlin 5 1:36pm 2:35pm Urine pH 6 5 - 7 07/14/2018 07/14/2018 1:36pm 2:35pm Urine Leukocyte NEGATIVE NEGATIVE 07/14/2018 07/14/2018 Esterase 1:36pm 2:35pm Urine Nitrite NEGATIVE NEGATIVE 07/14/2018 07/14/2018 1:36pm 2:35pm Urine Protein NEGATIVE NEGATIVE 07/14/2018 07/14/2018 1:36pm 2:35pm Urine Glucose 3+ H NEGATIVE 07/14/2018 07/14/2018 (UA) 1:36pm 2:35pm Urine Ketones TRACE H NEGATIVE 07/14/2018 07/14/2018 1:36pm 2:35pm Urine 0.2 mg/dL 0.2 - 1 07/14/2018 07/14/2018 Urobilinogen 1:36pm 2:35pm Urine Bilirubin NEGATIVE NEGATIVE 07/14/2018 07/14/2018 1:36pm 2:35pm Urine Blood TRACE H NEGATIVE 07/14/2018 07/14/2018 1:36pm 2:35pm Urine WBC 0-5 /HPF 0-5 07/14/2018 07/14/2018 1:36pm 2:41pm Urine RBC 6-10 /HPF H 0-5 07/14/2018 07/14/2018 1:36pm 2:41pm Urine Bacteria FEW /HPF NONE 07/14/2018 07/14/2018 1:36pm 2:41pm Urine Epithelial FEW /LPF NONE 07/14/2018 07/14/2018 Cells 1:36pm 2:41pm Urine Amorphous FEW FEW 07/14/2018 07/14/2018 Sediment 1:36pm 2:41pm Urine Mucus FEW H RARE 07/14/2018 07/14/2018 1:36pm 2:41pm Sodium Level 140 mmol/L 136-145 07/14/2018 07/14/2018 1:36pm 2:52pm Potassium Level 4.3 mmol/L 3.5-5.1 07/14/2018 07/14/2018 1:36pm 2:52pm Chloride Level 105 mmol/L 98-107 07/14/2018 07/14/2018 1:36pm 2:52pm Carbon Dioxide 23 mmol/L 22-29 07/14/2018 07/14/2018 Level 1:36pm 2:52pm Anion Gap 16.3 mmol/L H 8-16 07/14/2018 07/14/2018 1:36pm 2:52pm Blood Urea 12 mg/dL 7-26 07/14/2018 07/14/2018 Nitrogen 1:36pm 2:52pm Creatinine 0.90 mg/dL 0.57-1.11 07/14/2018 07/14/2018 1:36pm 2:52pm BUN/Creatinine 13 6-25 07/14/2018 07/14/2018 Ratio 1:36pm 2:52pm Estimat > 60 ML/MIN 60- 07/14/2018 07/14/2018 Ranges were taken from the National Kidney Disease Education Glomerular 1:36pm 2:52pm Program and the National Kid[employer] Foundation literature. Filtration Rate Reference ranges: 60 or greater: Normal 16-59 (for 3 consecutive months): Chronic kidney disease 15 or less: Kidney failure Glucose Level 184 mg/dL H 74-118 07/14/2018 07/14/2018 1:36pm 2:52pm Calcium Level 10.2 mg/dL 8.4-10.2 07/14/2018 07/14/2018 1:36pm 2:52pm Magnesium Level 1.8 MG/DL 1.3-2.1 07/14/2018 07/14/2018 1:36pm 2:52pm Total Bilirubin 1.5 mg/dL H 0.2-1.2 07/14/2018 07/14/2018 1:36pm 3:02pm Aspartate Amino 63 IU/L H 5-34 07/14/2018 07/14/2018 Transf (AST/SGOT) 1:36pm 2:52pm Alanine 38 IU/L 0-55 07/14/2018 07/14/2018 Aminotransferase 1:36pm 2:52pm (ALT/SGPT) Total Protein 8.7 g/dL H 6.5-8.1 07/14/2018 07/14/2018 1:36pm 2:52pm Albumin 3.8 g/dL 3.5-5.0 07/14/2018 07/14/2018 1:36pm 2:52pm Globulin 4.9 g/dL H 2.3-3.5 07/14/2018 07/14/2018 1:36pm 2:52pm Albumin/Globulin 0.8 0.8-2.0 07/14/2018 07/14/2018 Ratio 1:36pm 2:52pm Alkaline 103 IU/L 40-150 07/14/2018 07/14/2018 Phosphatase 1:36pm 2:52pm Creatine Kinase 37 IU/L 29-168 07/14/2018 07/14/2018 1:36pm 2:52pm Creatine Kinase 0.30 ng/mL 0-5.0 07/14/2018 07/14/2018 MB 1:36pm 3:15pm Troponin I < 0.001 ng/mL 0-0.300 07/14/2018 07/14/2018 1:36pm 3:15pm Amylase Level 63 U/L 25-125 07/14/2018 07/14/2018 1:36pm 2:52pm Lipase 40 U/L 8-78 07/14/2018 07/14/2018 1:36pm 2:52pm Thyroid 0.601 uIU/mL 0.350-4.94 07/14/2018 07/14/2018 Stimulating 0 1:36pm 3:15pm Hormone (TSH) Procedures Procedure Status Date Provider(s) COLONOSCOPY AND BIOPSY Completed 05/05/18 CHRISTINA SEGUNDO MD Computed tomography of abdomen and pelvis Active 03/27/18 HUGH COELLO MD with contrast Computed tomography of abdomen and pelvis Active 07/14/18 AMBER GOMES MD with contrast Encounters Encounter Location Arrival/Admit Date Discharge/Depart Date Attending Provider Departed [facility] 07/14/18 1:09pm 07/14/18 7:04pm AMBER GOMES Emergency Room Patients [facility] Registered [facility] 05/05/18 5:03am CHRISTINA SEGUNDO Surgical Day Patients [facility] Departed [facility] 03/27/18 6:28pm 03/27/18 10:32pm DEWAYNE PEREZ Emergency Room Patients [facility]
--- OUTSIDE RECORDS SUMMARY | 2019-05-25 23:33 | XMS REPORT | Continuity of Care Document ---
:[address] [facility] Address [address] [place] [address] Phone Unavailable Care Team Providers Name Role Phone DAVION GARCIA DO Primary Care Physician Insurance Providers Guarantor Marlys Garnett Address [address] [place] [address] Email [email or web address] Payer [employer] Policy Number [id number] Subscriber's Name Marlys Garnett Relationship 18 Self / Same As Patient Group Number [id number] Group Name [employer] Effective Date 17 Advance Directives Directive Response Recorded Date/Time Does the patient have an advance directive? No 03/13/12 7:00pm If yes, is advance directive on file with [facility]? No 03/13/12 7:00pm If not on file with [facility] will patient provide a copy? No 09/27/18 7:37pm Do you have a Directive to Physician? No 09/27/18 7:37pm Do you have a Medical Power of Pin Drafter Operator? No 09/27/18 7:37pm Do you have an [...] patient rights and responsibilities? Yes 09/27/18 7:37pm Problems No problem information available. Medications Current [...] Oral As Needed (Zofran Odt) 4 Mg Tab.arlenedis Pantoprazole 40 Mg Oral Sodium (Protonix) 40 [...] Tablet, 20 Mg Oral Daily Discontinued Thyroid ([place] Thyroid) 90 Mg Tablet, 90 Mg Oral [...] information available. Plan of Care Discharge Date 09/27/18 11:02pm Disposition HOME, SELF-CARE Condition at Discharge Stable Instructions/Education Provided Abdominal Pain - Adult Prescriptions See Medication Section Referrals DAVION GARCIA DO Address: [address] [place] [address] CHRISTINA SEGUNDO MD Address: [address] [place] [address] Additional Instructions/Education REST DRINK PLENTY OF WATER FOLLOW UP WITH YOUR GI DOCTOR Functional Status No functional status information available. Allergies, Adverse Reactions, Alerts Allergen Type Severity Reaction Status Last Updated Cephalexin Allergy Mild Active 07/14/18 Doxycycline Allergy Mild Active 07/14/18 Hydromorphone Allergy Mild HALLUCINATIONS Active 07/14/18 Immunizations No immunization information available. Vital Signs Acute Vital Signs Vital Response Date/Time Temperature (Fahrenheit) 98.1 degrees F (97.6 - 99.5) 09/27/2018 10:55pm Pulse Pulse Rate (adult) 76 bpm (60 - 90) 09/27/2018 10:55pm Respiratory Rate 16 bpm (12 - 24) 09/27/2018 10:55pm Blood Pressure 154/83 mm Hg 09/27/2018 10:55pm Height 5 ft 5 in 09/27/2018 7:30pm Weight 262 lb 09/27/2018 7:30pm Body Mass Index 43.6 kg/m^2 09/27/2018 7:30pm Results Laboratory Results Test Name Result Units Flags Reference Collection Result Comments Date/Time Date/Time Bedside Glucose 171 mg/dL H 70-120 05/05/2018 05/05/2018 Meter ID: 6:37am 6:44am [id number] White Blood Count 7.35 x10e3/uL 4.8-10.8 07/14/2018 [...] 2:35pm Urine Specific 1.025 1.010-1.02 07/14/2018 07/14/2018 [place] 5 1:36pm 2:35pm Urine pH 6 5 [...] 07/14/2018 1:36pm 2:52pm Blood Urea 12 mg/dL 7-07/14/2018 07/14/2018 Nitrogen 1:36pm 2:52pm Creatinine 0.90 mg/dL [...] MD Computed tomography of abdomen and pelvis Completed 03/27/18 HUGH COELLO MD with contrast Computed tomography of abdomen and pelvis Completed 07/14/18 AMBER GOMES MD with contrast Encounters Encounter Location Arrival/Admit Date Discharge/Depart Date Attending Provider Registered [facility] 09/27/18 7:25pm [facility] Emergency Room Patients Drake Pate MD [place] Departed [facility] 07/14/18 1:09pm 07/14/18 7:04pm AMBER GOMES Emergency Room Patients [facility] Registered [facility] 05/05/18 5:03am CHRISTINA SEGUNDO Surgical Day Patients [facility] Departed [facility] 03/27/18 6:28pm 03/27/18 10:32pm DEWAYNE PEREZ Emergency Room Patients [facility]
--- OUTSIDE RECORDS SUMMARY | 2019-05-25 23:33 | XMS REPORT ---
:1965 Author Organization [employer] Care Team Providers Name Role Phone Roxanne Pantoja Provider Role Unavailable Allergies No Known Allergies Problems Problem Type Condition Code Onset Dates Condition Status Problem Benign essential hypertension I10 Active Problem Gastroesophageal reflux disease, K21.9 Active esophagitis presence not specified Problem Other and unspecified E78.5 Active hyperlipidemia Problem Low back pain M54.5 Active Problem Other chronic pain G89.29 Active Problem Type 2 diabetes mellitus with E11.65 Active hyperglycemia, without long-term current use of insulin Problem Depression, unspecified depression F32.9 Active type Problem PE (pulmonary embolism) I26.99 Active Problem Barretts esophagus K22.70 Active Problem Acquired hypothyroidism E03.9 Active Assessment Type 2 diabetes mellitus with E11.65 Active hyperglycemia, without long-term current use of insulin Problem Chronic anticoagulation Z79.01 Active Problem Vertigo R42 Active Problem Primary insomnia F51.01 Active Problem Diverticulosis of large intestine K57.30 Active without hemorrhage Problem DVT (deep venous thrombosis) I82.409 Active Problem Vitamin D deficiency E55.9 Active Medications Medication Code Code Instructions Start End Status Dosage System Date Date XR [facility] [address]-07 50-1000 MG Oct 26, Active 2 tablet Orally Once a 2017 with a day meal Pantoprazole [facility] [address]-27 40 MG Orally Active 1 packet Sodium Once a day Metformin HCl [facility] 29794283670 500 MG Active TAKE 2 TABLETS BY MOUTH TWICE A DAY WITH MEALS Carvedilol [facility] 72088802350 6.25 MG Orally Active 1 tablet Twice a day with food Rosuvastatin [facility] 40233707923 20 MG Orally Active 1 tablet Calcium Once a day Levothyroxine [facility] 82115627688 125 MCG Orally Active 1 tablet Sodium Once a day, 30 minutes before first meal on an empty stomach Warfarin Sodium [facility] [address]-38 4 MG Orally 4 Active 1 tablet time a week Warfarin Sodium [facility] [address]-56 5 MG 3 time a Active 1 tablet week Venlafaxine HCl [facility] 83529846291 100 MG Orally Active 1 tablet twice a day (bid) Results No Known Results Summary Purpose [employer] Submission
--- OUTSIDE RECORDS SUMMARY | 2019-05-25 23:33 | XMS REPORT ---
[...] Start End Date Status Dosage System Date Pantoprazole [facility] 34325-21 40 MG Orally January 05, Active 1 tablet Sodium 07-01 Once a [place] 2016 [place] [address]-33 40 MG Orally Inactive 1 packet Sodium 44-01 Once a day Results No Known Results Summary Purpose [employer]ClinicalWorks Submission
--- OUTSIDE RECORDS SUMMARY | 2019-05-25 23:34 | XMS REPORT ---
:1965 [facility] Jay Laguerre [address] [place] [id number] Care Team Providers Name Role Phone TOM MANN Unavailable Unavailable KASIA VAUGHN Unavailable Unavailable PITTMAN, NASRIN Unavailable Unavailable MANEEVESELILA V Unavailable Unavailable ELISEO, AMBER S Unavailable Unavailable HUSBY, DEWAYNE Escobar Unavailable Unavailable Problems This patient has no known problems. Allergies, Adverse Reactions, Alerts This patient has no known allergies or adverse reactions. Medications This patient has no known medications. Results Test Description Test Time Test Comments Text Results Atomic Results Result Comments ALPHA FETOPROTEIN (AFP), TUMOR MARKER 2019-05-02 19:01:00 Test Item Value Reference Range Comments ALPHA-FETOPROTEIN (BEAKER) (test fttv=4975) 4.3 ng/mL <10.0 HEPATIC FUNCTION [id number] 16:59:00 Test Item Value Reference Range Comments TOTAL PROTEIN (BEAKER) (test bpus=433) 8.4 gm/dL 6.0-8.3 ALBUMIN (BEAKER) (test fryo=6098) 3.8 g/dL 3.5-5.0 BILIRUBIN TOTAL (BEAKER) (test pbvj=559) 1.2 mg/dL 0.2-1.2 BILIRUBIN DIRECT (BEAKER) (test hdlv=778) 0.5 mg/dL 0.1-0.5 ALKALINE PHOSPHATASE (BEAKER) (test uzvg=065) 96 U/L 40-150 AST (SGOT) (BEAKER) (test msse=273) 33 U/L 5-34 ALT (SGPT) (BEAKER) (test rdzq=302) 24 U/L 6-55 BASIC METABOLIC [id number] 16:59:00 Test Item Value Reference Range Comments SODIUM (BEAKER) (test 137 meq/L 136-145 vvlm=884) POTASSIUM (BEAKER) (test 4.1 meq/L 3.5-5.1 hryw=808) CHLORIDE (BEAKER) (test 102 meq/L 98-107 dqdw=311) CO2 (BEAKER) (test 26 meq/L 22-29 ilzz=017) BLOOD UREA NITROGEN 9 mg/dL 7-21 (BEAKER) (test lxsg=548) CREATININE (BEAKER) (test 0.79 mg/dL 0.57-1.25 buoq=125) GLUCOSE RANDOM (BEAKER) 251 mg/dL 70-105 (test jnix=951) CALCIUM (BEAKER) (test 9.5 mg/dL 8.4-10.2 tyoo=210) EGFR (BEAKER) (test 76 mL/min/1.73 sq m ESTIMATED GFR IS NOT alwq=5598) ACCURATE CREATININE CLEARANCE IN PREDICTING GLOMERULAR FILTRATION RATE. ESTIMATED GFR IS NOT APPLICABLE FOR DIALYSIS PATIENTS. PROTHROMBIN [id number] 16:46:00 Test Item Value Reference Range Comments PROTIME (BEAKER) (test xxus=704) 23.8 seconds 11.9-14.2 INR (BEAKER) (test gvkk=110) 2.2 <=5.9 Effective 03/08/2019: PT Reference Range ChangeNew: 11.9-14.2 Previous: 11.7- 14.7RECOMMENDED COUMADIN/WARFARIN INR THERAPY RANGESSTANDARD DOSE: 2.0-3.0 Includes: PROPHYLAXIS for venous thrombosis, systemic embolization; TREATMENT for venous thrombosis and/or pulmonary embolus.HIGH RISK: Target INR is2.5-3.5 for patients wiht mechanical heart valves.CBC W/PLT COUNT & AUTO [id number] 16:35:00 Test Item Value Reference Range Comments WHITE BLOOD CELL COUNT (BEAKER) (test matd=597) 8.8 K/ L 3.5-10.5 RED BLOOD CELL COUNT (BEAKER) (test fmpf=451) 4.75 M/ L 3.93-5.22 HEMOGLOBIN (BEAKER) (test hkwz=805) 13.4 GM/DL 11.2-15.7 HEMATOCRIT (BEAKER) (test pbkm=246) 41.1 % 34.1-44.9 MEAN CORPUSCULAR VOLUME (BEAKER) (test hvjw=149) 86.5 fL 79.4-94.8 MEAN CORPUSCULAR HEMOGLOBIN (BEAKER) (test 28.2 pg 25.6-32.2 zput=680) MEAN CORPUSCULAR HEMOGLOBIN CONC (BEAKER) (test 32.6 GM/DL 32.2-35.5 sxba=103) RED CELL DISTRIBUTION WIDTH (BEAKER) (test 15.2 % 11.7-14.4 difo=686) PLATELET COUNT (BEAKER) (test lcwu=912) 165 K/CU MM 150-450 MEAN PLATELET VOLUME (BEAKER) (test tbsm=752) 11.8 fL 9.4-12.3 NUCLEATED RED BLOOD CELLS (BEAKER) (test 0 /100 WBC 0-0 lbgi=867) NEUTROPHILS RELATIVE PERCENT (BEAKER) (test 74 % xnjz=399) LYMPHOCYTES RELATIVE PERCENT (BEAKER) (test 17 % ygwd=433) MONOCYTES RELATIVE PERCENT (BEAKER) (test 6 % vyns=050) EOSINOPHILS RELATIVE PERCENT (BEAKER) (test 3 % zxjy=196) BASOPHILS RELATIVE PERCENT (BEAKER) (test 1 % ahvg=806) NEUTROPHILS ABSOLUTE COUNT (BEAKER) (test 6.44 K/ L 1.56-6.13 piqf=848) LYMPHOCYTES ABSOLUTE COUNT (BEAKER) (test 1.46 K/ L 1.18-3.74 yiia=381) MONOCYTES ABSOLUTE COUNT (BEAKER) (test 0.52 K/ L 0.24-0.36 qblh=559) EOSINOPHILS ABSOLUTE COUNT (BEAKER) (test 0.23 K/ L 0.04-0.36 tsqh=619) BASOPHILS ABSOLUTE COUNT (BEAKER) (test 0.06 K/ L 0.01-0.08 bpxn=658) IMMATURE GRANULOCYTES-RELATIVE PERCENT (BEAKER) 1 % 0-1 (test tehd=1589) HEMOGLOBIN [id number] 06:40:00 Test Item Value Reference Range Comments HEMOGLOBIN A1C (BEAKER) (test occk=153) 11.3 % 4.3-6.1 POCT-GLUCOSE [id number] 12:05:00 Test Item Value Reference Range Comments POC-GLUCOSE METER (BEAKER) 314 mg/dL 70-110 TESTED AT [facility] [address] [facility] (test wthz=7384) [facility] [address] POCT-GLUCOSE [id number] 08:02:00 Test Item Value Reference Range Comments POC-GLUCOSE METER (BEAKER) 216 mg/dL 70-110 TESTED AT [facility] [address] (test oocn=1431) [place] [address] HEPATIC FUNCTION [id number] 04:42:00 Test Item Value Reference Range Comments TOTAL PROTEIN (BEAKER) (test xocs=609) 7.3 gm/dL 6.0-8.3 ALBUMIN (BEAKER) (test rsgi=7857) 3.4 g/dL 3.5-5.0 BILIRUBIN TOTAL (BEAKER) (test pihl=614) 1.7 mg/dL 0.2-1.2 BILIRUBIN DIRECT (BEAKER) (test xlij=090) 0.8 mg/dL 0.1-0.5 ALKALINE PHOSPHATASE (BEAKER) (test mvev=613) 83 U/L 40-150 AST (SGOT) (BEAKER) (test cbkl=637) 29 U/L 5-34 ALT (SGPT) (BEAKER) (test bsew=918) 28 U/L 6-55 BASIC METABOLIC [id number] 04:42:00 Test Item Value Reference Range Comments SODIUM (BEAKER) (test 137 meq/L 136-145 gfxm=834) POTASSIUM (BEAKER) (test 3.9 meq/L 3.5-5.1 bpbq=317) CHLORIDE (BEAKER) (test 104 meq/L 98-107 iflz=709) CO2 (BEAKER) (test 26 meq/L 22-29 fiph=024) BLOOD UREA NITROGEN 10 mg/dL 7-21 (BEAKER) (test qpey=917) CREATININE (BEAKER) (test 0.76 mg/dL 0.57-1.25 cmgl=572) GLUCOSE RANDOM (BEAKER) 247 mg/dL 70-105 (test omyq=344) CALCIUM (BEAKER) (test 8.8 mg/dL 8.4-10.2 bxwq=232) EGFR (BEAKER) (test 79 mL/min/1.73 sq m ESTIMATED GFR IS NOT lhwl=7899) ACCURATE CREATININE CLEARANCE IN PREDICTING GLOMERULAR FILTRATION RATE. ESTIMATED GFR IS NOT APPLICABLE FOR DIALYSIS PATIENTS. PROTHROMBIN [id number] 04:14:00 Test Item Value Reference Range Comments PROTIME (BEAKER) (test bojp=235) 16.6 seconds 11.9-14.2 INR (BEAKER) (test ivxa=370) 1.4 <=5.9 Effective 03/08/2019: PT Reference Range ChangeNew: 11.9-14.2 Previous: 11.7- 14.7RECOMMENDED COUMADIN/WARFARIN INR THERAPY RANGESSTANDARD DOSE: 2.0-3.0 Includes: PROPHYLAXIS for venous thrombosis, systemic embolization; TREATMENT for venous thrombosis and/or pulmonary embolus.HIGH RISK: Target INR is2.5-3.5 for patients wiht mechanical heart valves.While on warfarin.CBC W/PLT COUNT &amp ; AUTO [id number] 04:05:00 Test Item Value Reference Range Comments WHITE BLOOD CELL COUNT (BEAKER) (test gifu=761) 6.2 K/ L 3.5-10.5 RED BLOOD CELL COUNT (BEAKER) (test ojjk=268) 4.38 M/ L 3.93-5.22 HEMOGLOBIN (BEAKER) (test ydbe=253) 12.3 GM/DL 11.2-15.7 HEMATOCRIT (BEAKER) (test tbjb=225) 38.3 % 34.1-44.9 MEAN CORPUSCULAR VOLUME (BEAKER) (test wgtj=531) 87.4 fL 79.4-94.8 MEAN CORPUSCULAR HEMOGLOBIN (BEAKER) (test 28.1 pg 25.6-32.2 bqby=571) MEAN CORPUSCULAR HEMOGLOBIN CONC (BEAKER) (test 32.1 GM/DL 32.2-35.5 rhwi=060) RED CELL DISTRIBUTION WIDTH (BEAKER) (test 15.9 % 11.7-14.4 rplq=707) PLATELET COUNT (BEAKER) (test tqnb=414) 114 K/CU MM 150-450 MEAN PLATELET VOLUME (BEAKER) (test wbqb=768) 11.4 fL 9.4-12.3 NUCLEATED RED BLOOD CELLS (BEAKER) (test 0 /100 WBC 0-0 omfv=159) NEUTROPHILS RELATIVE PERCENT (BEAKER) (test 65 % irwu=991) LYMPHOCYTES RELATIVE PERCENT (BEAKER) (test 25 % cfpr=221) MONOCYTES RELATIVE PERCENT (BEAKER) (test 7 % gzse=929) EOSINOPHILS RELATIVE PERCENT (BEAKER) (test 3 % vxkm=773) BASOPHILS RELATIVE PERCENT (BEAKER) (test 1 % mbio=038) NEUTROPHILS ABSOLUTE COUNT (BEAKER) (test 4.03 K/ L 1.56-6.13 rzsd=538) LYMPHOCYTES ABSOLUTE COUNT (BEAKER) (test 1.54 K/ L 1.18-3.74 vyjf=258) MONOCYTES ABSOLUTE COUNT (BEAKER) (test 0.43 K/ L 0.24-0.36 opan=376) EOSINOPHILS ABSOLUTE COUNT (BEAKER) (test 0.16 K/ L 0.04-0.36 aupj=517) BASOPHILS ABSOLUTE COUNT (BEAKER) (test 0.05 K/ L 0.01-0.08 hlvw=073) IMMATURE GRANULOCYTES-RELATIVE PERCENT (BEAKER) 1 % 0-1 (test xbea=1744) POCT-GLUCOSE [id number] 20:57:00 Test Item Value Reference Range Comments POC-GLUCOSE METER (BEAKER) 257 mg/dL 70-110 TESTED AT [address] (test paou=0171) [facility] [address] POCT-GLUCOSE [id number] 16:42:00 Test Item Value Reference Range Comments POC-GLUCOSE METER (BEAKER) 384 mg/dL 70-110 TESTED AT [address] (test ecnm=9105) [facility] [address] POCT-GLUCOSE [id number] 12:13:00 Test Item Value Reference Range Comments POC-GLUCOSE METER (BEAKER) 306 mg/dL 70-110 TESTED AT [address] (test bxgz=1972) [facility] [address] POCT-GLUCOSE [id number] 07:56:00 Test Item Value Reference Range Comments POC-GLUCOSE METER (BEAKER) 325 mg/dL 70-110 TESTED AT [address] (test wnfa=0358) [facility] [address] BASIC METABOLIC [id number] 05:42:00 Test Item Value Reference Range Comments SODIUM (BEAKER) (test 138 meq/L 136-145 loic=571) POTASSIUM (BEAKER) (test 4.2 meq/L 3.5-5.1 gidh=622) CHLORIDE (BEAKER) (test 105 meq/L 98-107 dgty=263) CO2 (BEAKER) (test 26 meq/L 22-29 anof=850) BLOOD UREA NITROGEN 7 mg/dL 7-21 (BEAKER) (test wlpr=385) CREATININE (BEAKER) (test 0.70 mg/dL 0.57-1.25 khaz=478) GLUCOSE RANDOM (BEAKER) 226 mg/dL 70-105 (test uaek=762) CALCIUM (BEAKER) (test 8.9 mg/dL 8.4-10.2 hndp=045) EGFR (BEAKER) (test 87 mL/min/1.73 sq m ESTIMATED GFR IS NOT zehx=5305) ACCURATE CREATININE CLEARANCE IN PREDICTING GLOMERULAR FILTRATION RATE. ESTIMATED GFR IS NOT APPLICABLE FOR DIALYSIS PATIENTS. Specimen slightly ictericHEPATIC FUNCTION [id number] 05:42:00 Test Item Value Reference Range Comments TOTAL PROTEIN (BEAKER) (test dsmh=895) 7.7 gm/dL 6.0-8.3 ALBUMIN (BEAKER) (test zdrt=3749) 3.5 g/dL 3.5-5.0 BILIRUBIN TOTAL (BEAKER) (test iazh=443) 2.2 mg/dL 0.2-1.2 BILIRUBIN DIRECT (BEAKER) (test luse=447) 1.0 mg/dL 0.1-0.5 ALKALINE PHOSPHATASE (BEAKER) (test xzvr=844) 89 U/L 40-150 AST (SGOT) (BEAKER) (test jmjy=339) 36 U/L 5-34 ALT (SGPT) (BEAKER) (test lgkj=914) 32 U/L 6-55 Specimen slightly ictericPROTHROMBIN [id number] 05:30:00 Test Item Value Reference Range Comments PROTIME (BEAKER) (test lhck=897) 15.7 seconds 11.9-14.2 INR (BEAKER) (test oeup=132) 1.3 <=5.9 Effective 03/08/2019: PT Reference Range ChangeNew: 11.9-14.2 Previous: 11.7- 14.7RECOMMENDED COUMADIN/WARFARIN INR THERAPY RANGESSTANDARD DOSE: 2.0-3.0 Includes: PROPHYLAXIS for venous thrombosis, systemic embolization; TREATMENT for venous thrombosis and/or pulmonary embolus.HIGH RISK: Target INR is2.5-3.5 for patients wiht mechanical heart valves.CBC W/PLT COUNT & AUTO [id number] 05:19:00 Test Item Value Reference Range Comments WHITE BLOOD CELL COUNT (BEAKER) (test oguh=291) 5.4 K/ L 3.5-10.5 RED BLOOD CELL COUNT (BEAKER) (test wrdd=705) 4.74 M/ L 3.93-5.22 HEMOGLOBIN (BEAKER) (test gyjw=025) 13.2 GM/DL 11.2-15.7 HEMATOCRIT (BEAKER) (test wzjp=176) 41.5 % 34.1-44.9 MEAN CORPUSCULAR VOLUME (BEAKER) (test qqvx=551) 87.6 fL 79.4-94.8 MEAN CORPUSCULAR HEMOGLOBIN (BEAKER) (test 27.8 pg 25.6-32.2 yhqr=695) MEAN CORPUSCULAR HEMOGLOBIN CONC (BEAKER) (test 31.8 GM/DL 32.2-35.5 jhgw=646) RED CELL DISTRIBUTION WIDTH (BEAKER) (test 15.9 % 11.7-14.4 zuwm=335) PLATELET COUNT (BEAKER) (test pxlf=502) 130 K/CU MM 150-450 MEAN PLATELET VOLUME (BEAKER) (test aslq=685) 11.2 fL 9.4-12.3 NUCLEATED RED BLOOD CELLS (BEAKER) (test 0 /100 WBC 0-0 korc=283) NEUTROPHILS RELATIVE PERCENT (BEAKER) (test 65 % wqby=519) LYMPHOCYTES RELATIVE PERCENT (BEAKER) (test 26 % vmkr=493) MONOCYTES RELATIVE PERCENT (BEAKER) (test 5 % eakh=192) EOSINOPHILS RELATIVE PERCENT (BEAKER) (test 2 % vdho=457) BASOPHILS RELATIVE PERCENT (BEAKER) (test 1 % ylaj=870) NEUTROPHILS ABSOLUTE COUNT (BEAKER) (test 3.52 K/ L 1.56-6.13 ueij=219) LYMPHOCYTES ABSOLUTE COUNT (BEAKER) (test 1.41 K/ L 1.18-3.74 zqqc=732) MONOCYTES ABSOLUTE COUNT (BEAKER) (test 0.29 K/ L 0.24-0.36 ibtz=738) EOSINOPHILS ABSOLUTE COUNT (BEAKER) (test 0.13 K/ L 0.04-0.36 vrrx=064) BASOPHILS ABSOLUTE COUNT (BEAKER) (test 0.04 K/ L 0.01-0.08 mvzv=400) IMMATURE GRANULOCYTES-RELATIVE PERCENT (BEAKER) 1 % 0-1 (test njzl=2691) POCT-GLUCOSE [id number] 22:31:00 Test Item Value Reference Range Comments POC-GLUCOSE METER (BEAKER) 225 mg/dL 70-110 TESTED AT [address] (test gvxn=1217) [place] [address] POCT-GLUCOSE [id number] 18:24:00 Test Item Value Reference Range Comments POC-GLUCOSE METER (BEAKER) 257 mg/dL 70-110 TESTED AT [address] (test yfrc=4180) [place] [address] RAPID DRUG SCREEN, [id number] 14:23:00 Test Item Value Reference Range Comments BARBITURATE URINE (BEAKER) (test dhlp=271) Negative Negative BENZODIAZEPINE SCREEN URINE (BEAKER) (test Negative Negative xqip=850) COCAINE (METAB.) SCREEN (BEAKER) (test nafz=2861) Negative Negative METHADONE SCREEN (BEAKER) (test ufof=6640) Negative Negative OPIATE SCREEN URINE (BEAKER) (test anmr=895) Positive Negative CANNABINOID SCREEN URINE (BEAKER) (test ngmy=072) Negative Negative AMPH/METHAMPH SCREEN (BEAKER) (test pbmk=2494) Negative Negative PHENCYCLIDINE SCREEN URINE (BEAKER) (test jwzx=324) Negative Negative DRUG CUTOFF CONC.Cocaine 300 ng/mL Cannabinoid 50 ng/mLBenzodiazepine 200 ng/mLBarbiturate 200 ng/ mLPhencyclidine 25 ng/mLOpiate 300 ng/mLMethadone 300 ng/mLAmphetamine/ 1000 ng/mL MethamphetamineThis assay provides an unconfirmed qualitative test result for the clinical management of patients in emergency situations. Chain of custody not maintained. Some egik-bhe-bladmly medications, as well as adulterants, may cause inaccurate results. Clinical correlation should be applied. A more comprehensivedrug screen or confirmation of a detected drug may be performed upon request.POCT-GLUCOSE [id number] 12 :23:00 Test Item Value Reference Range Comments POC-GLUCOSE METER (BEAKER) 242 mg/dL 70-110 TESTED AT [address] (test stqv=5833) [place] [address] POCT-GLUCOSE [id number] 07:27:00 Test Item Value Reference Range Comments POC-GLUCOSE METER (BEAKER) 198 mg/dL 70-110 TESTED AT [address] (test nmue=3636) [place] [address] CBC W/PLT COUNT & AUTO [id number] 06:41:00 Test Item Value Reference Range Comments WHITE BLOOD CELL COUNT (BEAKER) (test pjer=996) 6.5 K/ L 3.5-10.5 RED BLOOD CELL COUNT (BEAKER) (test exkf=865) 4.40 M/ L 3.93-5.22 HEMOGLOBIN (BEAKER) (test yjbb=409) 12.6 GM/DL 11.2-15.7 HEMATOCRIT (BEAKER) (test etkh=073) 38.3 % 34.1-44.9 MEAN CORPUSCULAR VOLUME (BEAKER) (test npjp=985) 87.0 fL 79.4-94.8 MEAN CORPUSCULAR HEMOGLOBIN (BEAKER) (test 28.6 pg 25.6-32.2 jesm=874) MEAN CORPUSCULAR HEMOGLOBIN CONC (BEAKER) (test 32.9 GM/DL 32.2-35.5 axuo=873) RED CELL DISTRIBUTION WIDTH (BEAKER) (test 15.6 % 11.7-14.4 ubat=557) PLATELET COUNT (BEAKER) (test kryb=158) 123 K/CU MM 150-450 MEAN PLATELET VOLUME (BEAKER) (test ghvc=677) 12.0 fL 9.4-12.3 NUCLEATED RED BLOOD CELLS (BEAKER) (test 0 /100 WBC 0-0 znbq=478) NEUTROPHILS RELATIVE PERCENT (BEAKER) (test 69 % qwbk=588) LYMPHOCYTES RELATIVE PERCENT (BEAKER) (test 22 % xrat=601) MONOCYTES RELATIVE PERCENT (BEAKER) (test 6 % qbfu=392) EOSINOPHILS RELATIVE PERCENT (BEAKER) (test 2 % yvxc=622) BASOPHILS RELATIVE PERCENT (BEAKER) (test 1 % dyey=932) NEUTROPHILS ABSOLUTE COUNT (BEAKER) (test 4.50 K/ L 1.56-6.13 qwhg=377) LYMPHOCYTES ABSOLUTE COUNT (BEAKER) (test 1.44 K/ L 1.18-3.74 mqvu=553) MONOCYTES ABSOLUTE COUNT (BEAKER) (test 0.37 K/ L 0.24-0.36 zcht=135) EOSINOPHILS ABSOLUTE COUNT (BEAKER) (test 0.12 K/ L 0.04-0.36 raap=419) BASOPHILS ABSOLUTE COUNT (BEAKER) (test 0.04 K/ L 0.01-0.08 igqh=156) IMMATURE GRANULOCYTES-RELATIVE PERCENT (BEAKER) 1 % 0-1 (test djzr=7761) CT, [id number] 02:31:00Referring: DOROTA Alvares-CFINAL REPORT EXAM: CT of the abdomen and pelvis, with contrast CLINICAL HISTORY: Abdominal pain. TECHNIQUE: CT of the abdomen and pelvis was performed with intravenous contrast administration. This exam was performed according to our departmental dose optimization program whichincludes automated exposure control, adjustment of the mA and/or kV according to patient's size and /or use of iterative reconstructive technique. COMPARISON: None FINDINGS: LOWER CHEST: Within normal limits.LIVER: Mild nodular contour of the liver suggesting cirrhosis. Hepatomegaly.BILE DUCTS: Withinnormal limits.GALL BLADDER : Status post cholecystectomy.PANCREAS: Within normal limits.SPLEEN: Mild splenomegaly.ADRENALS: Within normal limits.KIDNEYS/URETERS: Punctate non obstructing stone in the left lower renal pole. Unremarkable right kidney. No hydroureteronephrosis or perinephric stranding. URINARY BLADDER: Underdistended otherwise unremarkable.REPRODUCTIVE ORGANS: Status post hysterectomy. No adnexal masses. [...] branches. LYMPH NODES: No abdominal or pelvic lymphadenopathy.SOFT TISSUES: Midline abdominal scar. BONES: Lower lumbar facet arthropathy. No suspicious osseous lesions. IMPRESSION:Status post small bowel and sigmoid resection. Status post cholecystectomy and hysterectomy.No bowel obstruction, free air or fluid collection. Punctate nonobstructing left renal stone. No hydroureteronephrosis.Cirrhosis. Hepatosplenomegaly. Signed: Racheal Vuong [facility] Verified Date/Time: 04/11/2019 02:31:06 URINALYSIS W/ REFLEX URINE [id number] 22:19:00 Test Item Value Reference Range Comments COLOR (BEAKER) (test xxyp=817) Yellow CLARITY (BEAKER) (test akpl=468) Clear SPECIFIC GRAVITY UA (BEAKER) (test jwrr=024) 1.034 1.001-1.035 PH UA (BEAKER) (test aavx=663) 7.0 5.0-8.0 PROTEIN UA (BEAKER) (test shhu=927) Negative Negative GLUCOSE UA (BEAKER) (test wesk=572) >1000 mg/dL Negative KETONES UA (BEAKER) (test idre=793) Negative Negative BILIRUBIN UA (BEAKER) (test aymg=636) Negative Negative BLOOD UA (BEAKER) (test kfaf=038) Negative Negative NITRITE UA (BEAKER) (test rnpl=450) Negative Negative LEUKOCYTE ESTERASE UA (BEAKER) (test vrto=721) Negative Negative UROBILINOGEN UA (BEAKER) (test kmvw=692) 12.0 mg/dL 0.2-1.0 RBC UA (BEAKER) (test macd=461) 1 /HPF WBC UA (BEAKER) (test luqh=727) < /HPF SQUAMOUS EPITHELIAL (BEAKER) (test nhau=377) 1 /HPF SOURCE(BEAKER) (test wcfc=4983) RAD, CHEST, 2 [id number] 22:13:00Referring: Shawnee Alvares for exam:->ABDOMINAL PAINFINAL REPORT Exam: Chest x-ray, PA and lateral [...] No focal pulmonary consolidation. Signed: Racheal Vuong MDReport Verified Date/Time: 04/10/2019 22:13:40 [facility] [id number] 22:06:00 Test Item Value Reference Range Comments TOTAL PROTEIN (BEAKER) 7.5 gm/dL 6.0-8.3 (test rstf=837) ALBUMIN (BEAKER) (test 3.5 g/dL 3.5-5.0 txik=5660) ALKALINE PHOSPHATASE 99 U/L 40-150 (BEAKER) (test ewwy=344) BILIRUBIN TOTAL (BEAKER) 1.7 mg/dL 0.2-1.2 (test jgii=399) SODIUM (BEAKER) (test 136 meq/L 136-145 mfvb=113) POTASSIUM (BEAKER) (test 4.1 meq/L 3.5-5.1 bmuy=543) CHLORIDE (BEAKER) (test 102 meq/L 98-107 nhej=680) CO2 (BEAKER) (test 27 meq/L 22-29 fyum=257) BLOOD UREA NITROGEN 10 mg/dL 7-21 (BEAKER) (test zfdl=465) CREATININE (BEAKER) (test 0.75 mg/dL 0.57-1.25 wpkb=877) GLUCOSE RANDOM (BEAKER) 232 mg/dL 70-105 (test wvbl=651) CALCIUM (BEAKER) (test 9.3 mg/dL 8.4-10.2 rtsi=039) AST (SGOT) (BEAKER) (test 30 U/L 5-34 dpdd=423) ALT (SGPT) (BEAKER) (test 29 U/L 6-55 oqyq=259) EGFR (BEAKER) (test 80 mL/min/1.73 sq m ESTIMATED GFR IS NOT vayr=4750) ACCURATE CREATININE CLEARANCE IN PREDICTING GLOMERULAR FILTRATION RATE. ESTIMATED GFR IS NOT APPLICABLE FOR DIALYSIS PATIENTS. Specimen slightly [id number] 22:06:00 Test Item Value Reference Range Comments LIPASE (BEAKER) (test whtt=242) 17 U/L 8-78 Specimen slightly ictericPT/[id number] 22:02:00 Test Item Value Reference Range Comments PROTIME (BEAKER) (test guiu=842) 18.6 seconds 11.9-14.2 INR (BEAKER) (test gjwc=682) 1.6 <=5.9 PARTIAL THROMBOPLASTIN TIME (BEAKER) (test 37.1 seconds 22.5-36.0 uuep=506) Effective 03/08/2019: PT Reference Range ChangeNew: 11.9-14.2 Previous: 11.7- 14.7RECOMMENDED COUMADIN/WARFARIN INR THERAPY RANGESSTANDARD DOSE: 2.0-3.0 Includes: PROPHYLAXIS for venous thrombosis, systemic embolization; TREATMENT for venous thrombosis and/or pulmonary embolus.HIGH RISK: Target INR is2.5-3.5 for patients wiht mechanical heart valves.CBC W/PLT COUNT & AUTO [id number] 21:50:00 Test Item Value Reference Range Comments WHITE BLOOD CELL COUNT (BEAKER) (test ihkq=579) 6.2 K/ L 3.5-10.5 RED BLOOD CELL COUNT (BEAKER) (test qsjo=121) 4.53 M/ L 3.93-5.22 HEMOGLOBIN (BEAKER) (test hnse=948) 12.8 GM/DL 11.2-15.7 HEMATOCRIT (BEAKER) (test vrue=004) 39.3 % 34.1-44.9 MEAN CORPUSCULAR VOLUME (BEAKER) (test deqe=170) 86.8 fL 79.4-94.8 MEAN CORPUSCULAR HEMOGLOBIN (BEAKER) (test 28.3 pg 25.6-32.2 ptyg=221) MEAN CORPUSCULAR HEMOGLOBIN CONC (BEAKER) (test 32.6 GM/DL 32.2-35.5 fgop=190) RED CELL DISTRIBUTION WIDTH (BEAKER) (test 15.8 % 11.7-14.4 xjta=515) PLATELET COUNT (BEAKER) (test wyvo=941) 130 K/CU MM 150-450 MEAN PLATELET VOLUME (BEAKER) (test xroi=173) 11.2 fL 9.4-12.3 NUCLEATED RED BLOOD CELLS (BEAKER) (test 0 /100 WBC 0-0 spjw=648) NEUTROPHILS RELATIVE PERCENT (BEAKER) (test 66 % ednd=205) LYMPHOCYTES RELATIVE PERCENT (BEAKER) (test 24 % xrql=605) MONOCYTES RELATIVE PERCENT (BEAKER) (test 6 % ipgx=092) EOSINOPHILS RELATIVE PERCENT (BEAKER) (test 2 % bldl=411) BASOPHILS RELATIVE PERCENT (BEAKER) (test 1 % guqw=104) NEUTROPHILS ABSOLUTE COUNT (BEAKER) (test 4.10 K/ L 1.56-6.13 cqdd=265) LYMPHOCYTES ABSOLUTE COUNT (BEAKER) (test 1.50 K/ L 1.18-3.74 ceqb=581) MONOCYTES ABSOLUTE COUNT (BEAKER) (test 0.39 K/ L 0.24-0.36 dsrr=540) EOSINOPHILS ABSOLUTE COUNT (BEAKER) (test 0.12 K/ L 0.04-0.36 gxoj=613) BASOPHILS ABSOLUTE COUNT (BEAKER) (test 0.04 K/ L 0.01-0.08 twpb=417) IMMATURE GRANULOCYTES-RELATIVE PERCENT (BEAKER) 1 % 0-1 (test uwue=9008) CT ABD/PEL WITH ODWYRBNH-[id number] 01:31:00 [place] [address] Patient Name: MARLYS GARNETT MR #: [id number] : 1965 Age/Sex: 54/F Req #: [id number] Adm Physician: Ordered by: NASRNI PITTMAN DO Report # : [id number] Location: [facility] Room/Bed: Procedure: HOPD/CT ABD/PEL WITH CONTRAST-HOPD Exam Date: 04/10/19 Exam Time: 101 REPORT STATUS: Signed EXAMINATION: CT of the abdomen and pelvis with contrast. TECHNIQUE: Helical CT images of the abdomen and pelvis were performed from the lung bases to the lesser trochanters after the intravenous administration of 100 cc of Omnipaque 300 and the oral administration of none. Coronal and sagittal reformatted images were obtained.Dose modulation, iterative reconstruction, and/or weight based adjustment of the mA/kV was utilized toreduce the radiation dose to as low as reasonably achievable. COMPARISON: None. CLINICAL HISTORY:Abdominal pain DISCUSSION: ABDOMEN/PELVIS: LOWER THORAX:Unremarkable. HEPATOBILIARY: Cirrhotic morphology. No intra-or extrahepatic biliary ductal dilation. Cholecystectomy. SPLEEN: No splenomegaly. PANCREAS: No focal masses or ductal dilatation.ADRENALS: No adrenal nodules. KIDNEYS/URETERS: No obstruction. Punctate left renal calculus. PELVIC ORGANS /BLADDER: Bladder is decompressed. Hysterectomy. PERITONEUM/RETROPERITONEUM : No free air or fluid. LYMPH NODES: No intra-abdominal, retroperitoneal, pelvic or inguinal lymphadenopathy. VESSELS: Vascular calcifications. IVC filter. GI TRACT: No obstruction. Postsurgical change to the bowel. BONES AND SOFT TISSUE: No bony destructive lesions. Prior hernia repair. IMPRESSION: No acute CT finding. Cirrhotic liver. Punctate left renal calculus. Signed by: Dr. Benjy Sanchez M.D. on 2018 1:39 AM Dictated By: BENJY SANCHEZ MD 8 Transcribed By: GAYATRI on 04/10/19138 COPY TO: NASRIN PITTMAN [id number] 17:02:00Surgical Pathology Report Case: [id number] Authorizing Provider: Tom Mann MD Collected: 01/10/2019 1120 Ordering Location: [facility] Radiology Angio Received: 01/10/2019 1426 Pathologist: Allie Lu MD Specimen: Liver LIVER, ULTRASOUND-GUIDED NEEDLE BIOPSIES- CIRRHOSIS- STEATOSIS (~6%)- RARE BALLOONED HEPATOCYTE- see comment Signing Pathologist Direct Phone Line: [phone] signed by Allie Lu MD on 01/13/2019 at 5 :02 PMThe histological features are consistent with cirrhosis secondary to steatohepatitis. No features of autoimmune hepatitis are seen.The non-alcoholic steatohepatitis (JIMY) activity scoring is performed according to guidelines from non-alcoholic steatohepatitis, clinical research network(Deb, et al. Hepatology 2005. 41:1313-21), at the request of the clinician, for research relatedpurposes.The JIMY score is: Steatosis: Grade 1 + lobular inflammation, grade 0 + hepatocyte ballooning score 1=2/8. The fibrosis score is 4 of 4.71686 , 82411 A4Ojxqsmde liver enzymesNative right liver biopsyThe specimen is received in a formalin-filled container and labeled with the patient's information and labeled "right [place] liver biopsy" and consists of two newton-red core biopsies measuring 1.5 x 1.7 cm in length, submitted entirely A1. CG/pl Section shows two cores of liver parenchyma with greater than 10 portal tracts and is adequate for evaluation. Trichrome and reticulin stain shows distortion of architecture with bridging fibrosis and incomplete to complete regenerative nodule formation. Foci of pericellular fibrosis is present. The fibrous septa show cholangiolar proliferation and very mild chronic lymphoplasmacytic inflammation. Few scattered ceroid laden macrophages are present in thefibrous septa. No significant interface hepatitis is noted. The bile ducts appear preserved. No periductal inflammation, granulomas or bile duct scars are seen. There is miild steatosis, mixed small droplet and large droplet type, involving almost 6% of liver parenchyma. Rare ballooned hepatocyte withearly Malathi Denk hyaline is seen. No significant lobular inflammation is present. Iron stain is negative. No hyaline globules are seen on PAS with diastase stain.Special stains : trichrome, reticulin,iron and PAS with diastaseThe interpretation of this case included the use of immunohistochemistry or special stains. Immunohistochemistry technical testing was performed at [facility], Pathology Laboratory where it was developed and its performance characteristics were determined. It has not been cleared or approved by the U.S. Food and Drug Administration. The FDA has determined that such clearance or approval is not necessary. The test is used for clinical purposes. It should not be regarded as investigational or for research. This laboratory is certified under the ClinicalLaboratory Improvement Amendments of 1988 (CLIA-88) as qualified to perform high complexity clinicallaboratory testing.U/S, BIOPSY, [id number] 11:59:00Referring: DOROTA Alvares-CUltrasound guided liver biopsyAbnormal liver enzymes, cirrhosis, AIH vs NASHReason for Exam:-> abnormal liver enzymesFINAL REPORT Ultrasound guided liver biopsy. Clinical History: Elevated LFTs. Comparison Study: Ultrasound dated December 07, 2018. Informed consent was obtained from the patient and the risks of the procedure were explained including bleeding, infection, pneumothorax and visceral injury. Sedation: 1% Xylocaine was used as local analgesia. One mg of Versed and 50 micrograms offentanyl were administered using the moderate sedation protocol under the supervision of a physician. Moderate Sedation Time: 20 minutes. Technique: Using sterile technique, real- time ultrasound guidance and a 16 gauge core [...] liver under ultrasound guidance. Signed: Cheo Lr MDReport Verified Date/ Time: 01/10/2019 11:59:42 Reading Location: [facility] P006J Ultrasound Reading Room [id number] 08:59:00 Test Item Value Reference Range Comments PARTIAL THROMBOPLASTIN TIME (BEAKER) (test 37.7 seconds 22.5-36.0 xmyt=307) PROTHROMBIN TIME/[id number] 08:58:00 Test Item Value Reference Range Comments PROTIME (BEAKER) (test pymq=647) 14.7 seconds 11.7-14.7 INR (BEAKER) (test ucra=588) 1.1 <=5.9 RECOMMENDED COUMADIN/WARFARIN INR THERAPY RANGESSTANDARD DOSE: 2.0 - 3.0 Includes: PROPHYLAXIS forvenous thrombosis, systemic embolization; TREATMENT for venous thrombosis and/or pulmonary embolus.HIGH RISK: Target INR is 2.5-3.5 for patients with mechanical heart valves.PLATELET [id number] 08:50:00 Test Item Value Reference Range Comments PLATELET COUNT (BEAKER) (test givi=126) 113 K/CU MM 150-450 PROTHROMBIN TIME/[id number] 09:40:00 Test Item Value Reference Range Comments PROTIME (BEAKER) (test ntra=063) 25.0 seconds 11.7-14.7 INR (BEAKER) (test jnez=312) 2.3 <=5.9 RECOMMENDED COUMADIN/WARFARIN INR THERAPY RANGESSTANDARD DOSE: 2.0 - 3.0 Includes: PROPHYLAXIS forvenous thrombosis, systemic embolization; TREATMENT for venous thrombosis and/or pulmonary embolus.HIGH RISK: Target INR is 2.5-3.5 for patients with mechanical heart valves.CBC W/PLT COUNT & AUTO [id number] 09:33:00 Test Item Value Reference Range Comments WHITE BLOOD CELL COUNT (BEAKER) (test lktz=294) 6.6 K/ L 3.5-10.5 RED BLOOD CELL COUNT (BEAKER) (test nkdq=819) 4.61 M/ L 3.93-5.22 HEMOGLOBIN (BEAKER) (test ijzs=561) 12.8 GM/DL 11.2-15.7 HEMATOCRIT (BEAKER) (test devn=204) 39.8 % 34.1-44.9 MEAN CORPUSCULAR VOLUME (BEAKER) (test ofje=747) 86.3 fL 79.4-94.8 MEAN CORPUSCULAR HEMOGLOBIN (BEAKER) (test 27.8 pg 25.6-32.2 shfb=388) MEAN CORPUSCULAR HEMOGLOBIN CONC (BEAKER) (test 32.2 GM/DL 32.2-35.5 uoxc=473) RED CELL DISTRIBUTION WIDTH (BEAKER) (test 15.3 % 11.7-14.4 kehw=885) PLATELET COUNT (BEAKER) (test yvpo=780) 128 K/CU MM 150-450 MEAN PLATELET VOLUME (BEAKER) (test apgq=737) 10.9 fL 9.4-12.3 NUCLEATED RED BLOOD CELLS (BEAKER) (test 0 /100 WBC 0-0 eczi=719) NEUTROPHILS RELATIVE PERCENT (BEAKER) (test 66 % vxrn=178) LYMPHOCYTES RELATIVE PERCENT (BEAKER) (test 24 % sneo=488) MONOCYTES RELATIVE PERCENT (BEAKER) (test 6 % koer=973) EOSINOPHILS RELATIVE PERCENT (BEAKER) (test 3 % atwk=641) BASOPHILS RELATIVE PERCENT (BEAKER) (test 1 % gqho=698) NEUTROPHILS ABSOLUTE COUNT (BEAKER) (test 4.38 K/ L 1.56-6.13 vhag=632) LYMPHOCYTES ABSOLUTE COUNT (BEAKER) (test 1.58 K/ L 1.18-3.74 ldne=436) MONOCYTES ABSOLUTE COUNT (BEAKER) (test 0.41 K/ L 0.24-0.36 tvfs=248) EOSINOPHILS ABSOLUTE COUNT (BEAKER) (test 0.18 K/ L 0.04-0.36 poxg=881) BASOPHILS ABSOLUTE COUNT (BEAKER) (test 0.05 K/ L 0.01-0.08 uwbs=720) IMMATURE GRANULOCYTES-RELATIVE PERCENT (BEAKER) 1 % 0-1 (test bhuy=3265) U/S, ABDOMINAL, [id number] 11:18:00Referring: DOROTA Alvares- CCirrhosis assess for HCCReason for Exam:->Cirrhosis asess for HCCFINAL REPORT Ultrasound of the abdomen. Clinical History: Cirrhosis asess forHCC. Comparison study: MRI dated April 01, 2018. Findings: The liver is coarsened in echotexture withno focal masses. It measures 19.1 cm in length. There is no evidence of intra or extrahepatic biliary dilatation with the common bile duct measuring six mm. The main portal vein diameter is 1.3 cm. Thegallbladder has been resected. The spleen measures 16.6 cm and is unremarkable. The pancreas is poorly seen. Trace ascites is present. The right kidney measures 12.1 cm and left kidney measures 12.4 cm, both within normal limits. The proximal aorta and IVC are unremarkable. No pleural effusion is seen. Impression: 1. Nodular, cirrhotic appearing liver with no focal masses.2. Trace ascites.3. Pancreas poorly seen. Signed: Cheo Lr MDReport Verified Date/Time: 12/07/2018 11:18:11 Reading Location: [address] Radiology Reading Room Electronically signed by: CHEO LR M.D. on 11:18 AMALPHA FETOPROTEIN (AFP), TUMOR [id number] 19:36:00 Test Item Value Reference Range Comments ALPHA-FETOPROTEIN (BEAKER) (test gnjk=4864) 4.2 ng/mL <10.0 HEPATIC FUNCTION [id number] 17:53:00 Test Item Value Reference Range Comments TOTAL PROTEIN (BEAKER) (test zmhf=440) 8.2 gm/dL 6.0-8.3 ALBUMIN (BEAKER) (test ebfv=3493) 3.7 g/dL 3.5-5.0 BILIRUBIN TOTAL (BEAKER) (test waul=538) 1.3 mg/dL 0.2-1.2 BILIRUBIN DIRECT (BEAKER) (test ftvm=645) 0.5 mg/dL 0.1-0.5 ALKALINE PHOSPHATASE (BEAKER) (test jliw=511) 85 U/L 40-150 AST (SGOT) (BEAKER) (test awmw=178) 35 U/L 5-34 ALT (SGPT) (BEAKER) (test yhcq=505) 21 U/L 6-55 BASIC METABOLIC [id number] 17:53:00 Test Item Value Reference Range Comments SODIUM (BEAKER) (test 141 meq/L 136-145 vddo=263) POTASSIUM (BEAKER) (test 4.0 meq/L 3.5-5.1 wlfp=309) CHLORIDE (BEAKER) (test 105 meq/L 98-107 quli=821) CO2 (BEAKER) (test 32 meq/L 22-29 zsma=940) BLOOD UREA NITROGEN 14 mg/dL 7-21 (BEAKER) (test hseu=450) CREATININE (BEAKER) (test 0.75 mg/dL 0.57-1.25 faoz=560) GLUCOSE RANDOM (BEAKER) 153 mg/dL 70-105 (test zwjp=347) CALCIUM (BEAKER) (test 9.6 mg/dL 8.4-10.2 dkjn=360) EGFR (BEAKER) (test 81 mL/min/1.73 sq m ESTIMATED GFR IS NOT ubfs=5272) ACCURATE CREATININE CLEARANCE IN PREDICTING GLOMERULAR FILTRATION RATE. ESTIMATED GFR IS NOT APPLICABLE FOR DIALYSIS PATIENTS. PROTHROMBIN TIME/[id number] 17:46:00 Test Item Value Reference Range Comments PROTIME (BEAKER) (test uvfj=807) 19.1 seconds 11.7-14.7 INR (BEAKER) (test qhjs=969) 1.6 <=5.9 RECOMMENDED COUMADIN/WARFARIN INR THERAPY RANGESSTANDARD DOSE: 2.0 - 3.0 Includes: PROPHYLAXIS forvenous thrombosis, systemic embolization; TREATMENT for venous thrombosis and/or pulmonary embolus.HIGH RISK: Target INR is 2.5-3.5 for patients with mechanical heart valves.CBC W/PLT COUNT & AUTO [id number] 17:32:00 Test Item Value Reference Range Comments WHITE BLOOD CELL COUNT (BEAKER) (test ijvh=475) 6.2 K/ L 3.5-10.5 RED BLOOD CELL COUNT (BEAKER) (test zzsv=983) 4.40 M/ L 3.93-5.22 HEMOGLOBIN (BEAKER) (test awiv=006) 12.2 GM/DL 11.2-15.7 HEMATOCRIT (BEAKER) (test ecwb=506) 39.2 % 34.1-44.9 MEAN CORPUSCULAR VOLUME (BEAKER) (test jevw=386) 89.1 fL 79.4-94.8 MEAN CORPUSCULAR HEMOGLOBIN (BEAKER) (test 27.7 pg 25.6-32.2 gbgi=804) MEAN CORPUSCULAR HEMOGLOBIN CONC (BEAKER) (test 31.1 GM/DL 32.2-35.5 mewi=922) RED CELL DISTRIBUTION WIDTH (BEAKER) (test 15.9 % 11.7-14.4 zlwo=981) PLATELET COUNT (BEAKER) (test wdzl=421) 134 K/CU MM 150-450 MEAN PLATELET VOLUME (BEAKER) (test dezg=141) 11.9 fL 9.4-12.3 NUCLEATED RED BLOOD CELLS (BEAKER) (test 0 /100 WBC 0-0 wlmy=471) NEUTROPHILS RELATIVE PERCENT (BEAKER) (test 67 % dyeo=429) LYMPHOCYTES RELATIVE PERCENT (BEAKER) (test 23 % rkgh=096) MONOCYTES RELATIVE PERCENT (BEAKER) (test 6 % burh=347) EOSINOPHILS RELATIVE PERCENT (BEAKER) (test 2 % kfcw=568) BASOPHILS RELATIVE PERCENT (BEAKER) (test 1 % muoy=426) NEUTROPHILS ABSOLUTE COUNT (BEAKER) (test 4.21 K/ L 1.56-6.13 ccmh=772) LYMPHOCYTES ABSOLUTE COUNT (BEAKER) (test 1.44 K/ L 1.18-3.74 xyim=168) MONOCYTES ABSOLUTE COUNT (BEAKER) (test 0.39 K/ L 0.24-0.36 rwlz=579) EOSINOPHILS ABSOLUTE COUNT (BEAKER) (test 0.13 K/ L 0.04-0.36 xrfw=190) BASOPHILS ABSOLUTE COUNT (BEAKER) (test 0.05 K/ L 0.01-0.08 nekw=298) IMMATURE GRANULOCYTES-RELATIVE PERCENT (BEAKER) 0 % 0-1 (test kowp=7224) RAD, HAND, 2 VIEWS, [id number] 13:22:00Referring: JUAN Alvaresason for Exam:->m79.641Reason for Exam:->m79.642FINAL REPORT Exam: Right and left hand three views each History: Pain Comparison: None. Findings: No fracture or malalignment. Bone demineralization. Narrowing of the interphalangeal joints and first carpometacarpal joint. No abnormal soft tissue calcification or soft tissue defect. Impression: No acute osseous abnormality Osteoarthrosis of the interphalangeal and first carpometacarpal joint Signed: Benjy Sanchze Verified Date/Time: 13:22:55 RAD, HAND, 2 VIEWS, [id number] 13:22:00Referring: JUAN Alvares for Exam:->m79.641Reason for Exam:->m79.642FINAL REPORT Exam: Right and left hand three views each History: Pain Comparison: None. Findings: No fracture or malalignment. Bone demineralization. Narrowing of the interphalangeal joints and first carpometacarpal joint. No abnormal soft tissue calcification or soft tissue defect. Impression: No acute osseous abnormality Osteoarthrosis of the interphalangeal and first carpometacarpal joint Signed: Benjy Sanchez Verified Date/Time: 13:22:55 CT ABD/PEL WITH [id number] 22:26:00 [place] [address] Patient Name: MARLYS GARNETT MR #: [id number] : 1965 Age/Sex: 53/F Req #: [id number] Adm Physician: Ordered by: LILA ESCALANTE MD Report #: [id number] Location: [facility] Room/Bed: Procedure: [id number] HOPD/CT ABD/PEL WITH CONTRAST-HOPD Exam Date: 09/27/18 Exam Time: 2143 REPORT STATUS : Signed EXAM: CT ABD/PEL WITH CONTRAST-HOPD DATE: 09/27/2018 12:00 AM INDICATION: Abdominal pain COMPARISON: 07/14/2018 TECHNIQUE: The abdomen and pelvis were scanned using a multidetector helical scanner. Coronal and sagittal reformations were obtained. CT low dose techniques were utilized, as applicable. IV Contrast: 100 ml Isovue 300/370 FINDINGS: Evaluation somewhat degraded by noise related to body habitus. LOWER THORAX: No consolidations LIVER: Stable morphologic changes suggesting cirrhosis. No masses. GALLBLADDER/BILIARY: Surgically absent SPLEEN: Stable splenomegaly, 15 to 16 cm. PANCREAS: Unremarkable ADRENALS: No nodules KIDNEYS: No suspicious renal masses. Stable 3 mm nonobstructing left renal calculus. No hydronephrosis. GI TRACT: Postsurgical changes are again noted status post prior bowel resections. Unchanged haziness of the small bowel mesentery. No evidence of bowel obstruction. Appendix is not visualized. VESSELS: Moderate atherosclerotic changes. Infrarenal IVC filter is again noted. PERITONEUM/RETROPERITONEUM: No free air or fluid collection. Stable areas of fat necrosis. LYMPH NODES: No lymphadenopathy REPRODUCTIVE ORGANS/BLADDER: Hysterectomy. Decompressed bladder. SOFT TISSUES: Postsurgical changes along the anterior abdominal wall with juxtaposed bowel. BONES: No suspicious bone lesions. IMPRESSION: 1. No significant change from prior. No acute abnormality. 2. Morphologic changes of cirrhosis with splenomegaly suggesting portal hypertension. Signed by: Dr Prakash Veliz MD on 09/27/2018 10:34 PM Dictated By: PRAKASH VELIZ MD 33 Transcribed By: GAYATRI on 09/27/182233 COPY TO: LILA ESCALANTE V MDCT ABDOMEN/PELVIS [id number] 16:21:[address] [place] [address] Patient Name: MARLYS GARNETT MR #: [id number] : 1965 Age/Sex: 53/F [facility] #: [id number] Re #: [id number] [facility] Physician: Ordered by: AMBER GOMES MD Report #: [id number] Location: ER Room/Bed: Procedure: [id number] CT/CT ABDOMEN/PELVIS W Exam Date: Exam Time: REPORT STATUS: Signed EXAM: CT of the abdomen and pelvis WITH contrast HISTORY: Abdominal pain, vomiting, nausea, blood in stool, lower abdominal pain COMPARISON: CT abdomen and pelvis March 27, 2018. TECHNIQUE: The abdomen and pelvis were scanned utilizing a multidetector helical scanner. Coronal and sagittal reformats are provided.PROTOCOL: Routine IV CONTRAST: 100 cc of Isovue-370. ORAL CONTRAST: Water RADIATION DOSE: Total DLP: 804.57 mGy*cm Estimated effective dose: (DLP x 0.015 x size factor) Dose modulation, iterative reconstruction, and/or weight based adjustment of the mA/kV was utilized to reduce the radiation dose to as low as reasonably achievable. COMPLICATIONS: None FINDINGS: LOWER THORAX: Unremarkable LIVER: Persistent hepatomegaly with subtle nodular liver contour and relative enlargement of the left lobe and caudate lobes of the liver. BILIARY: Cholecystectomy. No ductal dilation. SPLEEN: Persistent splenomegaly. PANCREAS: No masses. Mild diffuse atrophy. ADRENALS: No nodules KIDNEYS: Symmetric perfusion. No enhancing masses. No hydronephrosis. A stable 3 mm nonobstructing calcific density near the inferior pole of the left kidney. GI TRACT: Postsurgical changes within the right lower quadrant of the abdomen/right pelvis, and in the rectosigmoid region. Near one surgical anastomotic site there is mild dilation and small bowel feces sign (see series 2 image 58), but thisappears similar to the comparison. Bowel gas and fecal material in the rectosigmoid region. VESSELS: Moderate atherosclerotic changes including the coronary arteries. IVC filter. PERITONEUM/RETROPERITONEUM: Persistent mild mesenteric edema and trace ascites adjacent to the inferior liver. LYMPH NODES: No lymphadenopathy REPRODUCTIVE ORGANS: Not visualized BLADDER: Decompressed ,which limits evaluation. SOFT TISSUES: Unremarkable BONES: No suspicious bone lesions. IMPRESSION: 1. Findings remain consistent with early cirrhosis and portal hypertension. 2. Postsurgical changes within the abdomen and pelvis and one small segment of stable small bowel stasis, the stability suggests postsurgical stasis/mild chronic low-grade mechanical obstruction. If there is concern for developing/increasing bowel obstruction , advise serial abdominal radiographs. 3. Stable 3 mm nonobstructing left renal stone. Signed by: Rosalie BrumfieldOFrannie, M.M.M. on 07/14/2018 4:42 PM Dictated By: KARLIE BOCANEGRA DO 41 Transcribed By: GAYATRI on 07/14/181641 COPY TO: AMBER GOMES [id number] 16:47:00 Test Item Value Reference Range Comments FERRITIN (BEAKER) (test rhdt=735) 29 ng/mL 5-275 HEPATITIS B CORE ANTIBODY, [id number] 15:24:00 Test Item Value Reference Range Comments HEPATITIS B CORE TOTAL ANTIBODY (BEAKER) (test Reactive Nonreactive uaek=605) HEPATITIS B SURFACE [id number] 15:23:00 Test Item Value Reference Range Comments HEPATITIS B SURFACE ANTIBODY (BEAKER) (test 1539.3 mIU/mL <8.0 ozzn=322) HEPATITIS A ANTIBODY, [id number] 15:23:00 Test Item Value Reference Range Comments HEPATITIS A IGG ANTIBODY (BEAKER) (test qxng=8825) Reactive Nonreactive ALPHA FETOPROTEIN (AFP), TUMOR [id number] 15:20:00 Test Item Value Reference Range Comments ALPHA-FETOPROTEIN (BEAKER) (test iecm=1889) 3.9 ng/mL <10.0 HEPATITIS B SURFACE [id number] 14:54:00 Test Item Value Reference Range Comments HEPATITIS B SURFACE ANTIGEN (2) (BEAKER) (test Nonreactive Nonreactive mptg=3587) HEPATITIS C [id number] 14:54:00 Test Item Value Reference Range Comments HEPATITIS C ANTIBODY (BEAKER) (test yvyi=212) Nonreactive Nonreactive IRON, TIBC, % SAT. (WITHOUT FERRITIN)2018-04-29 14:29:00 Test Item Value Reference Range Comments IRON (BEAKER) (test wbja=397) 46 ug/dL 40-160 TOTAL IRON BINDING CAPACITY (BEAKER) (test 421 ug/dL 250-450 oced=920) IRON % SATURATION (2) (BEAKER) (test xmeg=8967) 11 % 20-55 COMPREHENSIVE METABOLIC [id number] 14:21:00 Test Item Value Reference Range Comments TOTAL PROTEIN (BEAKER) 8.9 gm/dL 6.0-8.3 (test ttgp=011) ALBUMIN (BEAKER) (test 4.0 g/dL 3.5-5.0 wiex=9257) ALKALINE PHOSPHATASE 103 U/L 40-150 (BEAKER) (test ckja=504) BILIRUBIN TOTAL (BEAKER) 1.0 mg/dL 0.2-1.2 (test sdjv=663) SODIUM (BEAKER) (test 137 meq/L 136-145 gfdn=215) POTASSIUM (BEAKER) (test 4.0 meq/L 3.5-5.1 wbmf=301) CHLORIDE (BEAKER) (test 105 meq/L 98-107 ofcx=226) CO2 (BEAKER) (test 23 meq/L 22-29 lurf=920) BLOOD UREA NITROGEN 16 mg/dL 7-21 (BEAKER) (test mmdd=118) CREATININE (BEAKER) (test 0.77 mg/dL 0.57-1.25 ciwp=182) GLUCOSE RANDOM (BEAKER) 165 mg/dL 70-105 (test cucu=606) CALCIUM (BEAKER) (test 9.8 mg/dL 8.4-10.2 iekp=171) AST (SGOT) (BEAKER) (test 85 U/L 5-34 geke=203) ALT (SGPT) (BEAKER) (test 41 U/L 6-55 awlx=024) EGFR (BEAKER) (test 78 mL/min/1.73 sq m ESTIMATED GFR IS NOT zkos=7710) ACCURATE CREATININE CLEARANCE IN PREDICTING GLOMERULAR FILTRATION RATE. ESTIMATED GFR IS NOT APPLICABLE FOR DIALYSIS PATIENTS. BILIRUBIN, [id number] 14:21:00 Test Item Value Reference Range Comments BILIRUBIN DIRECT (BEAKER) (test pprd=273) 0.5 mg/dL 0.1-0.5 CBC W/PLT COUNT & AUTO [id number] 14:14:00 Test Item Value Reference Range Comments WHITE BLOOD CELL COUNT (BEAKER) (test pcuv=919) 5.9 K/ L 3.5-10.5 RED BLOOD CELL COUNT (BEAKER) (test fpaa=031) 4.55 M/ L 3.93-5.22 HEMOGLOBIN (BEAKER) (test ukvh=111) 10.9 GM/DL 11.2-15.7 HEMATOCRIT (BEAKER) (test kzei=740) 36.7 % 34.1-44.9 MEAN CORPUSCULAR VOLUME (BEAKER) (test rolb=401) 80.7 fL 79.4-94.8 MEAN CORPUSCULAR HEMOGLOBIN (BEAKER) (test 24.0 pg 25.6-32.2 xumm=308) MEAN CORPUSCULAR HEMOGLOBIN CONC (BEAKER) (test 29.7 GM/DL 32.2-35.5 lyjq=104) RED CELL DISTRIBUTION WIDTH (BEAKER) (test 16.2 % 11.7-14.4 vilv=260) PLATELET COUNT (BEAKER) (test qsrn=244) 144 K/CU MM 150-450 MEAN PLATELET VOLUME (BEAKER) (test ocrr=979) 12.6 fL 9.4-12.3 NUCLEATED RED BLOOD CELLS (BEAKER) (test 0 /100 WBC 0-0 ufbe=155) NEUTROPHILS RELATIVE PERCENT (BEAKER) (test 68 % vqpy=765) LYMPHOCYTES RELATIVE PERCENT (BEAKER) (test 22 % ajlu=397) MONOCYTES RELATIVE PERCENT (BEAKER) (test 6 % obbl=377) EOSINOPHILS RELATIVE PERCENT (BEAKER) (test 2 % iivx=307) BASOPHILS RELATIVE PERCENT (BEAKER) (test 1 % zwxq=468) NEUTROPHILS ABSOLUTE COUNT (BEAKER) (test 4.01 K/ L 1.56-6.13 ldws=486) LYMPHOCYTES ABSOLUTE COUNT (BEAKER) (test 1.31 K/ L 1.18-3.74 aadi=785) MONOCYTES ABSOLUTE COUNT (BEAKER) (test 0.38 K/ L 0.24-0.36 ekdf=453) EOSINOPHILS ABSOLUTE COUNT (BEAKER) (test 0.14 K/ L 0.04-0.36 ysve=232) BASOPHILS ABSOLUTE COUNT (BEAKER) (test 0.05 K/ L 0.01-0.08 ouzm=685) IMMATURE GRANULOCYTES-RELATIVE PERCENT (BEAKER) 1 % 0-1 (test tjjg=4403) CT ABDOMEN/PELVIS [id number] 21:58:00 [place] [address] Patient Name: MARLYS GARNETT MR #: [id number] : 1965 Age/Sex: 53/F Req #: [id number] Adm Physician: Ordered by: HUGH COELLO MD Report #: [id number] Location: ER Room/Bed: ___ Procedure: [id number] CT/CT ABDOMEN/PELVIS W Exam Date: 03/27/18 Exam Time: 2139 REPORT STATUS: Signed EXAM: CT ABDOMEN AND PELVIS with IV CONTRAST DATE: 03/27/2018 9:15 PM Time stamp on Exam: 2144 hours INDICATION: Right-sided abdominal pain COMPARISON: CT of the abdomen and pelvis March 13, 2012 TECHNIQUE: The abdomen and pelvis were scanned using a multidetector helical scanner. Coronal and sagittal reformations were obtained. Routine protocol performed. IV Contrast: 100 cc Isovue-370 Oral Contrast: None CTDIvol has been reviewed. It is below the limits set by the Radiation Protocol Committee (RPC). FINDINGS: LOWER THORAX: No consolidations LIVER: Hepatomegaly with subtle nodular liver contour and relative enlargement of the left lobe and caudate lobes of the liver. BILIARY: Cholecystectomy. No ductal dilation. SPLEEN: Splenomegaly to 15.7 cm in craniocaudal dimension. PANCREAS: No masses ADRENALS: No nodules KIDNEYS: Symmetric perfusion. No enhancing masses. No hydronephrosis. GI TRACT: No distention, wall thickening or evidence of obstruction. VESSELS: Moderate atherosclerotic changes of the abdominal aorta without aneurysm. There is an infrarenal inferior vena cava filter. The main portal vein is patent. PERITONEUM/RETROPERITONEUM: Mesenteric edema and trace ascites around the inferior liver. LYMPH NODES: No lymphadenopathy REPRODUCTIVE ORGANS: Not visualized BLADDER: Decompressed SOFT TISSUES: Unremarkable BONES: No suspiciousbone lesions. IMPRESSION: Findings consistent with early cirrhosis and portal hypertension with trace ascites. Signed by: Dr. Julia Kumari M.D. on 03/27/2018 10:06 PM DictatedBy: JULIA KUMARI MD 05 Transcribed By: GAYATRI on 2205 COPY TO: HUGH COELLO MD
--- OUTSIDE RECORDS SUMMARY | 2019-05-25 23:34 | XMS REPORT | Continuity of Care Document ---
:1965 Author Organization [facility] Address [address] [place] [address] Phone Unavailable Care Team Providers Name Role Phone DAVION GARCIA DO Primary Care Physician Insurance Providers Guarantor Marlys Garnett Address [address] [place] [address] Email [email or web address] Payer [employer] Policy Number [id number] Subscriber's Name Marlys Garnett Relationship 18 Self / Same As Patient Group Number [id number] Group Name KRAMER Vatler Effective Date 17 Payer [facility] Ppo Policy Number [id number] Subscriber's Name ArmaniMarlys Relationship 18 Self / Same As Patient Group Number [id number] Group [facility] Advance Directives Directive Response Recorded Date/Time Does the patient have an advance directive? No 03/13/12 7:00pm If yes, is advance directive on file with [facility]? No 03/13/12 7:00pm If not on file with [facility] will patient provide a copy? No 09/27/18 7:37pm Problems No problem information available. Medications Current Home MedicationsNo current home medication information available. Past Home Medications Medication Directions Ordered Status Carvedilol , 12.5 Mg Oral Twice A Day Discontinued Cavedilol , Discontinued Cephalexin Monohydrate (Keflex) Every 6 Hours 03/15/19 Discontinued 500 Mg Capsule, 500 Mg Oral Cholestyramine (With Sugar) Daily Discontinued (Questran Packet) 4 Gm Packet, 4 Gm Oral Duloxetine Hcl (Cymbalta) 60 Mg Daily Discontinued Capsule.dr, 60 Mg Oral Enoxaparin Sodium (Lovenox) 120 Daily Discontinued Mg/0.8 Ml Disp.syrin, 40 Mg Sub-Q Exenatide (Byetta) 5 Mcg/0.02 Ml Twice A Day Discontinued Pen.injctr, Sub-Q Folic Acid 0.8 Mg Tablet, Discontinued Glimepiride 4 Mg Tablet, 4 Mg Oral Daily Discontinued Hyoscyamine Sulfate (Levsin) 0.125 Four Times Daily Discontinued Mg Tablet, Mg Oral Levothyroxine Sodium (Synthroid) Today At 6:30AM Discontinued 125 Mcg Tab, 125 Mcg Oral Lisinopril 5 Mg Tablet, 5 Mg Oral Daily Discontinued Lovenox , 80 Mg Sub-Q Twice A Day Discontinued Meclizine Hcl 12.5 Mg Tablet, 12.5 As Needed Discontinued Mg Oral Ondansetron (Zofran Odt) 4 Mg As Needed Discontinued Tab.rapdis, 4 Mg Oral Pantoprazole Sodium (Protonix) 40 Discontinued Mg Tablet.dr, 40 Mg Oral Pravastatin Sodium 40 Mg Tablet, Daily Discontinued 20 Mg Oral Promethazine Hcl 25 Mg Tablet, As Needed Discontinued 12.5 Mg Oral Propranolol Hcl 10 Mg Tablet, 10 Four Times Daily 07/14/18 Discontinued Mg Oral Rosuvastatin Calcium (Crestor) 20 Daily Discontinued Mg Tablet, 20 Mg Oral Sertraline Hcl 100 Mg Tablet, 100 Bedtime Discontinued Mg Oral Sucralfate 1 Gm Tablet, 1 Gm Oral Twice A Day Discontinued Thyroid (Glen Thyroid) 90 Mg Daily Discontinued Tablet, 90 Mg Oral Tramadol Hcl (Ultram) 50 Mg Every 6 Hours as needed for 07/14/18 Discontinued Tablet, 50 Mg Oral Pain Warfarin Sodium 2 Mg Tablet, 4 Mg Daily Discontinued Oral Social History Social History Response Recorded Date/Time [...] information available. Plan of Care Discharge Date 04/10/19 2:08am Disposition HOME, SELF-CARE Condition at Discharge Stable Instructions/Education Provided Abdominal Pain - Adult Cirrhosis Prescriptions See Medication Section Referrals DAVION GARCIA DO Address: [address] [address] [place] [address] Additional Instructions/Education FOLLOW UP WITH PRIMARY DOCTOR IN 2-3 DAYS FOR POSSIBLE REFERRAL TO SPECIALIST TAKE ALL MEDICATIONS PRESCRIBED RETURN TO NEAREST HOSPITAL BASED EMERGENCY ROOM FOR WORSENING OF SYMPTOMS Functional Status No functional status information available. [...] mm Hg 09/27/2018 10:55pm Height 5 ft 7 in 04/10/2019 12:15am Weight 272 lb 04/10/2019 12:15am Body Mass Index 42.6 kg/m^2 04/10/2019 12:15am Results Laboratory Results Test Name Result Units Flags Reference Collection Result Comments Date/Time Date/Time Prothrombin Time 26.1 seconds H 11.9-14.5 07/14/2018 [...] 07/14/2018 07/14/2018 Thromboplast Time 1:36pm 2:39pm Urine Amorphous FEW FEW 07/14/2018 07/14/2018 Sediment 1:36pm 2:41pm Urine Mucus FEW H RARE 07/14/2018 07/14/2018 1:36pm 2:41pm Magnesium Level 1.8 MG/DL 1.3-2.1 07/14/2018 07/14/2018 1:36pm 2:52pm Creatine Kinase 37 IU/L 29-168 07/14/2018 07/14/2018 1:36pm 2:52pm Creatine Kinase 0.30 ng/mL 0-5.0 07/14/2018 07/14/2018 MB 1:36pm 3:15pm Troponin I < 0.001 ng/mL 0-0.300 07/14/2018 07/14/2018 1:36pm 3:15pm Amylase Level 63 U/L 25-125 07/14/2018 07/14/2018 1:36pm 2:52pm Lipase 40 U/L 8-78 07/14/2018 07/14/2018 1:36pm 2:52pm Thyroid 0.601 uIU/mL 0.350-4.94 07/14/2018 07/14/2018 Stimulating 0 1:36pm 3:15pm Hormone (TSH) White Blood Count 6.10 x10e3/uL 4.8-10.8 03/15/2019 03/15/2019 3:40pm 3:56pm Red Blood Count 4.55 x10e6/uL 3.6-5.1 03/15/2019 03/15/2019 3:40pm 3:56pm Hemoglobin 12.8 g/dL 12.0-16.0 03/15/2019 03/15/2019 3:40pm 3:56pm Hematocrit 38.5 % 34.2-44.1 03/15/2019 03/15/2019 3:40pm 3:56pm Mean Corpuscular 84.6 fL 81-99 03/15/2019 03/15/2019 Volume 3:40pm 3:56pm Mean Corpuscular 28.1 pg 28-32 03/15/2019 03/15/2019 Hemoglobin 3:40pm 3:56pm Mean Corpuscular 33.2 g/dL 31-35 03/15/2019 03/15/2019 Hemoglobin 3:40pm 3:56pm Concent Red Cell 15.6 % H 11.7-14.4 03/15/2019 03/15/2019 Distribution 3:40pm 3:56pm Width Platelet Count 115 x10e3/uL L 140-360 03/15/2019 03/15/2019 3:40pm 3:56pm Neutrophils (%) 64.2 % 38.7-80.0 03/15/2019 03/15/2019 (Auto) 3:40pm 3:56pm Lymphocytes (%) 25.7 % 18.0-39.1 03/15/2019 03/15/2019 (Auto) 3:40pm 3:56pm Monocytes (%) 7.0 % 4.4-11.3 03/15/2019 03/15/2019 (Auto) 3:40pm 3:56pm Eosinophils (%) 2.1 % 0.0-6.0 03/15/2019 03/15/2019 (Auto) 3:40pm 3:56pm Basophils (%) 0.7 % 0.0-1.0 03/15/2019 03/15/2019 (Auto) 3:40pm 3:56pm IM GRANULOCYTES % 0.3 % 0.0-1.0 03/15/2019 03/15/2019 3:40pm 3:56pm Neutrophils # 3.9 2.1-6.9 03/15/2019 03/15/2019 (Auto) 3:40pm 3:56pm Lymphocytes # 1.6 1.0-3.2 03/15/2019 03/15/2019 (Auto) 3:40pm 3:56pm Monocytes # 0.4 0.2-0.8 03/15/2019 03/15/2019 (Auto) 3:40pm 3:56pm Eosinophils # 0.1 0.0-0.4 03/15/2019 03/15/2019 (Auto) 3:40pm 3:56pm Basophils # 0.0 0.0-0.1 03/15/2019 03/15/2019 (Auto) 3:40pm 3:56pm Absolute Immature 0.02 x10e3/uL 0-0.1 03/15/2019 03/15/2019 Granulocyte (auto 3:40pm 3:56pm Urine Color YELLOW YELLOW 03/15/2019 03/15/2019 3:40pm 3:56pm Urine Clarity HAZY CLEAR 03/15/2019 03/15/2019 3:40pm 3:56pm Urine Specific 1.010 1.010-1.02 03/15/2019 03/15/2019 [place] 5 3:40pm 3:56pm Urine pH 8 5 - 7 03/15/2019 03/15/2019 3:40pm 3:56pm Urine Leukocyte NEGATIVE NEGATIVE 03/15/2019 03/15/2019 Esterase 3:40pm 3:56pm Urine Nitrite NEGATIVE NEGATIVE 03/15/2019 03/15/2019 3:40pm 3:56pm Urine Protein NEGATIVE NEGATIVE 03/15/2019 03/15/2019 3:40pm 3:56pm Urine Glucose 3+ NEGATIVE 03/15/2019 03/15/2019 (UA) 3:40pm 3:56pm Urine Ketones NEGATIVE NEGATIVE 03/15/2019 03/15/2019 3:40pm 3:56pm Urine 4 mg/dL 0.2 - 1 03/15/2019 03/15/2019 Urobilinogen 3:40pm 3:56pm Urine Bilirubin NEGATIVE NEGATIVE 03/15/2019 03/15/2019 3:40pm 3:56pm Urine Blood TRACE NEGATIVE 03/15/2019 03/15/2019 3:40pm 3:56pm Urine WBC 0-5 /HPF 0-5 03/15/2019 03/15/2019 3:40pm 4:10pm Urine RBC 0-5 /HPF 0-5 03/15/2019 03/15/2019 3:40pm 4:10pm Urine Bacteria MODERATE /HPF H NONE 03/15/2019 03/15/2019 3:40pm 4:10pm Urine Epithelial MODERATE /LPF NONE 03/15/2019 03/15/2019 Cells 3:40pm 4:10pm Sodium Level 131 mmol/L L 136-145 03/15/2019 03/15/2019 3:40pm 4:14pm Potassium Level 3.9 mmol/L 3.5-5.1 03/15/2019 03/15/2019 3:40pm 4:14pm Chloride Level 97 mmol/L L 98-107 03/15/2019 03/15/2019 3:40pm 4:14pm Carbon Dioxide 28 mmol/L 22-29 03/15/2019 03/15/2019 Level 3:40pm 4:14pm Anion Gap 9.9 mmol/L 8-16 03/15/2019 03/15/2019 3:40pm 4:14pm Blood Urea 8 mg/dL 7-26 03/15/2019 03/15/2019 Nitrogen 3:40pm 4:14pm Creatinine 0.82 mg/dL 0.57-1.11 03/15/2019 03/15/2019 3:40pm 4:14pm BUN/Creatinine 10 6-25 03/15/2019 03/15/2019 Ratio 3:40pm 4:14pm Estimat > 60 ML/MIN 60- 03/15/2019 03/15/2019 Ranges were taken from the National Kidney Disease Education Glomerular 3:40pm 4:14pm Program and the National Kid[employer] literature. Filtration Rate Reference ranges: 60 or greater: Normal 16-59 (for 3 consecutive months): Chronic kidney disease 15 or less: Kidney failure Glucose Level 346 mg/dL H 74-118 03/15/2019 03/15/2019 3:40pm 4:14pm Calcium Level 9.7 mg/dL 8.4-10.2 03/15/2019 03/15/2019 3:40pm 4:14pm Bedside Glucose 352 mg/dL H 70-120 03/15/2019 03/16/2019 Meter ID: 2:54pm 9:42am [id number] Total Bilirubin 1.9 mg/dL H 0.2-1.2 03/15/2019 03/15/2019 3:40pm 4:14pm Aspartate Amino 32 IU/L 5-34 03/15/2019 03/15/2019 Transf (AST/SGOT) 3:40pm 4:14pm Alanine 35 IU/L 0-55 03/15/2019 03/15/2019 Aminotransferase 3:40pm 4:14pm (ALT/SGPT) Total Protein 8.0 g/dL 6.5-8.1 03/15/2019 03/15/2019 3:40pm 4:14pm Albumin 3.4 g/dL L 3.5-5.0 03/15/2019 03/15/2019 3:40pm 4:14pm Globulin 4.6 g/dL H 2.3-3.5 03/15/2019 03/15/2019 3:40pm 4:14pm Albumin/Globulin 0.7 L 0.8-2.0 03/15/2019 03/15/2019 Ratio 3:40pm 4:14pm Alkaline 100 IU/L 40-150 03/15/2019 03/15/2019 Phosphatase 3:40pm 4:14pm Procedures Procedure Status Date Provider(s) Computed tomography of abdomen and pelvis with Completed 07/14/18 AMBER GOMES MD contrast Encounters Encounter Location Arrival/Admit Date Discharge/Depart Date Attending Provider Departed [facility] 04/09/19 11:57pm 04/10/19 2:08am [facility] Emergency [facility] Allison Departed [facility] 03/15/19 2:32pm 03/15/19 7:04pm AMBER GOMES Emergency Room Patients [facility] MD [facility] Departed [facility] 09/27/18 7:25pm 09/27/18 11:02pm [facility] LILA Pate MD [facility] Departed [facility] 07/14/18 1:09pm 07/14/18 7:04pm AMBER GOMES Emergency Room Patients [facility]
[2019-05-25 23:39] LABS: Absolute Lymphocytes (CBC) 1.9 K/uL (0.7-4.9); Basophils % 0.9 % (0-1.3); Hematocrit 41.8 % (36.0-45.0); Lymphocytes % 18.1 % (15.3-44.8); MPV 9.8 fL (7.6-11.3); RBC Red Blood Cell Count 4.95 M/uL (3.86-4.86)
[2019-05-25 23:50] LABS: Albumin 3.6 g/dL (3.4-5.0); Bilirubin Direct 0.3 mg/dL (0-0.2); Bilirubin Total 1.1 mg/dL (0.2-1.0); Potassium 4.5 mmol/L (3.5-5.1); Protein, Total 8.8 g/dL (6.4-8.2)
[2019-05-26 00:26] LABS: Urine Blood NEGATIVE (NEG); Urine Glucose NEGATIVE (NEG); Urine Protein NEGATIVE (NEG); Urine Specific Gravity >1.030 (1.005-1.030); Urine pH 5.5 (5.0-7.0)
[2019-05-26 00:27] LABS: Urine Bacteria <20 /HPF (<20); Urine Culture Reflex Order NOT NEEDED; Urine RBC NONE SEEN /HPF (NONE SEEN)
[2019-05-26] MEDS ORDERED: NA CHLORIDE 0.9% 500 ML ONE (01:34)
[2019-05-26] MEDS ORDERED: NA CHLORIDE 0.9% 250 ML ONE (01:34)
[2019-05-26] MEDS ORDERED: PANTOPRAZOLE 40 MG INJ ONE (01:34)
[2019-05-26] MEDS ORDERED: OCTREOTIDE ACETATE 500 MCG/ML ONE (01:44)
[2019-05-26] MEDS ORDERED: PROMETHAZINE 25 MG/ML VIAL ONE (02:07)
[2019-05-26] MEDS ORDERED: MORPHINE 2 MG/ML SYR ONE (02:07)
--- NOTE | 2019-05-26 02:13 | ER ---
Nurse's Notes [facility] Name: Leslie Thacker Age: 54 yrs Sex: Female : 1965 Arrival Date: 05/25/2019 Time: 22:48 Bed 20 Private MD: Diagnosis: Hematemesis;Gastroparesis;Abdominal tenderness Presentation: 05/25 23:05 Presenting complaint: Patient states: generalized chronic abdominal pain since a year cc3 but this month is the worst. Transition of care: patient was not received from another setting of care. Onset of symptoms is unknown. Risk Assessment: Do you want to hurt yourself or someone else? Patient reports no desire to harm self or others. Initial Sepsis Screen: Does the patient meet any 2 criteria? HR > 90 bpm. Does the patient have a suspected source of infection? No. Patient's initial sepsis screen is negative. Care prior to arrival: None. 23:05 Method Of Arrival: Wheelchair cc3 23:05 Acuity: BRADEN 3 cc3 Triage Assessment: 23:15 General: Appears in no apparent distress. uncomfortable, Behavior is calm, cooperative, cc3 appropriate for age. Pain: Complains of pain in abdomen Pain currently is 10 out of 10 on a pain scale. Quality of pain is described as aching. EENT: No signs and/or symptoms were reported regarding the EENT system. Neuro: Level of Consciousness is awake, alert, obeys commands, Oriented to person, place, time, situation, Appropriate for age. Cardiovascular: Denies chest pain, Capillary refill < 3 seconds Patient's skin is warm and dry. Respiratory: Airway is patent Respiratory effort is even, unlabored, Respiratory pattern is regular, symmetrical. GI: Abdomen is round obese, Abd is soft Abdomen is tender to palpation X 4 quads. : No signs and/or symptoms were reported regarding the genitourinary system. Derm: Skin is intact, is healthy with good turgor, Skin is pink, warm \T\ dry. normal. Musculoskeletal: Circulation, motion, and sensation intact. Range of motion: intact in all extremities. 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 - Social history:: Smoking status: Patient/guardian denies using tobacco, but has a distant history of tobacco abuse. - Ebola Screening: : No symptoms or risks identified at this time. Screenin:15 Abuse screen: Denies threats or abuse. Denies injuries from another. Nutritional cc3 screening: No deficits noted. Tuberculosis screening: No symptoms or risk factors identified. Fall Risk Ambulatory Aid- None/Bed Rest/Nurse Assist (0 pts). Gait- Normal/Bed Rest/Wheelchair (0 pts) Mental Status- Oriented to own ability (0 pts). Assessment: 23:15 GI: Bowel sounds present X 4 quads. cc3 05/26 00:25 Reassessment: Patient appears in no apparent distress at this time. Patient and/or cc3 family updated on plan of care and expected duration. Pain level reassessed. Patient is alert, oriented x 3, equal unlabored respirations, skin warm/dry/pink. Patient came back from CT scan department, awaiting result. Patient denies pain at this time. Patient states feeling better. Patient states symptoms have improved. 01:18 Reassessment: Patient appears in no apparent distress at this time. Patient and/or cc3 family updated on plan of care and expected duration. Pain level reassessed. Patient is alert, oriented x 3, equal unlabored respirations, skin warm/dry/pink. Patient just came from bathroom and said she just spit some blood, informed Dr. Croft and he talked to the patient and the patient said she forgot to tell earlier that she had an episode of spitting of blood last week. Dr. Croft said the patient will be for transfer to [facility]. 02:35 Reassessment: Patient appears in no apparent distress at this time. Patient and/or cc3 family updated on plan of care and expected duration. Pain level reassessed. Patient is alert, oriented x 3, equal unlabored respirations, skin warm/dry/pink. Patient for transfer to [facility], report called and handed over to Sakina Torres. Transfer form completed and signed by the patient herself. ED warehouse record clerk Alexsandra to call EMS for patient transport. 03:20 Reassessment: Patient appears in no apparent distress at this time. Patient and/or cc3 family updated on plan of care and expected duration. Pain level reassessed. Patient is alert, oriented x 3, equal unlabored respirations, skin warm/dry/pink. [facility] came for patient transport. Patient left ER vitally stable by EMS stretcher. No valuables left in the patient's room. Patient denies pain at this time. Patient states feeling better. Patient states symptoms have improved. Vital Signs: 05/25 23:02 BP 149 / 89; Pulse 102; Resp 20; Temp 97.7(O); Pulse Ox 97% ; lt1 23:05 Weight 122.47 kg (R); Height 5 ft. 7 in. (170.18 cm) (R); Pain 10/10; cc3 05/26 00:15 BP 130 / 63; Pulse 96; Resp 18 S; Pulse Ox 96% on R/A; Pain 8/10; cc3 01:00 BP 136 / 71; Pulse 91; Resp 20 S; Pulse Ox 95% on R/A; Pain 8/10; cc3 02:15 BP 147 / 75; Pulse 94; Resp 20 S; Pulse Ox 95% on R/A; cc3 03:10 BP 140 / 74; Pulse 93; Resp 17 S; Pulse Ox 94% on R/A; cc3 05/25 23:05 Body Mass Index 42.29 (122.47 kg, 170.18 cm) cc3 ED Course: 05/25 22:48 Patient arrived in ED. ag3 23:06 Mohinder Croft MD is Attending Physician. tw4 23:15 Mar Dalton is Primary Nurse. cc3 23:15 Patient has correct armband on for positive identification. Placed in gown. Bed in low cc3 position. Call light in reach. Side rails up X 1. hall monitor on. Pulse ox on. NIBP on. 23:15 Arm band placed on right wrist. Patient notified of wait time. cc3 23:19 Triage completed. cc3 23:20 Initial lab(s) drawn, by me, sent to lab. Inserted saline lock: 20 gauge in right lt1 antecubital area, using aseptic technique. 23:31 Radiology exam delayed due to lab results not completed at this time. (BUN/Creatinine). vm2 05/26 00:47 CT Abd/Pelvis - IV Contrast Only In Process Unspecified. EDMS 03:28 No provider procedures requiring assistance completed. Patient transferred, IV remains cc3 in place. Administered Medications: 05/25 23:30 Drug: morphine 4 mg {Note: RASS 0.} Route: IVP; Site: right antecubital; cc3 05/26 00:00 Follow up: Response: No adverse reaction; Pain is decreased; RASS: Alert and Calm (0) cc3 05/25 23:35 Drug: Phenergan 12.5 mg Route: IVP; Site: right antecubital; cc3 05/26 00:00 Follow up: Response: No adverse reaction; Nausea is decreased cc3 02:00 Drug: ProTONIX 8 mg/hr Route: IV; Rate: 25 ml/hr; Site: right antecubital; jb4 03:00 Follow up: IV Status: Infusion continued upon transfer cc3 02:00 Drug: Octreotide Infusion (50 mcg/hr) - (Octreotide 500 mcg, NS 0.9% 500 ml) Route: IV; jb4 Rate: 50 ml/hr; Site: right antecubital; 03:00 Follow up: Response: No adverse reaction; IV Status: Infusion continued upon transfer cc3 02:08 Drug: Octreotide 25 mcg Route: IV; Rate: calculated rate; Site: right antecubital; 02:10 Follow up: Response: No adverse reaction; IV Status: Completed infusion cc3 02:10 Drug: morphine 2 mg {Note: RASS 0.} Route: IVP; Site: right antecubital; cc3 02:40 Follow up: Response: No adverse reaction; Pain is decreased; RASS: Alert and Calm (0) cc3 02:15 Drug: Phenergan 12.5 mg Route: IVP; Site: right antecubital; cc3 03:05 Follow up: Response: No adverse reaction; Nausea is decreased cc3 02:21 CANCELLED (Duplicate Order): morphine 2 mg IVP once; (PAIN>8) RASS on ADMN: Combtv4, cc3 Very Agttd3, Agttd2, Rstlss1, AlertClm0, Drwsy-1, LtSdtn-2, ModSdtn-3, DpSdtn-4, UnArsble-5 x2 Outcome: 02:12 ER care complete, transfer ordered by . tw4 03:28 Patient left the ED. cc3 03:28 Transferred by ground EMS to [facility], Transfer form completed. cc3 03:28 Condition: stable 03:28 Instructed on the need for transfer, Demonstrated understanding of instructions. Signatures: Dispatcher [employer] EDMS Faustina Canada RN RN Guillermo Hawkins RN RN jb4 Maria Dolores Narayanan 2 Mohinder Croft MD MD tw4 Mar Dalton cc3 Martine Fortune 3 Jeanna Crouch lt1 Corrections: (The following items were deleted from the chart) 02:24 00:15 BP 130 / 63; Pulse 96bpm; Resp 18bpm; Spontaneous; Pulse Ox 96% RA; cc3 cc3 03:10 01:18 Reassessment: Patient appears in no apparent distress at this time. Patient cc3 and/or family updated on plan of care and expected duration. Pain level reassessed. Patient is alert, oriented x 3, equal unlabored respirations, skin warm/dry/pink. cc3
--- NOTE | 2019-05-26 02:14 | EDPHYS ---
Physician Documentation [facility] Name: Leslie Thacker Age: 54 yrs Sex: Female : 1965 Arrival Date: 05/25/2019 Time: 22:48 Bed 20 Private MD: ED Physician Mohinder Croft HPI: 05/26 03:09 This 54 yrs old Female presents to ER via Wheelchair with complaints of tw4 Abdominal Pain. 03:09 The patient presents with abdominal pain in the epigastric area. Onset: The tw4 symptoms/episode began/occurred just prior to arrival, today. The symptoms do not radiate. Associated signs and symptoms: Pertinent positives: vomiting, vomiting blood. The symptoms are described as sharp. Modifying factors: The symptoms are alleviated by nothing, the symptoms are aggravated by movement, pressure. Severity of pain: At its worst the pain was moderate. The patient has not experienced similar symptoms in the past. 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 - Social history:: Smoking status: Patient/guardian denies using tobacco, but has a distant history of tobacco abuse. - Ebola Screening: : No symptoms or risks identified at this time. ROS: 05/26 03:09 Constitutional: Negative for fever, chills, and weight loss, Eyes: Negative for injury, tw4 pain, redness, and discharge, Cardiovascular: Negative for chest pain, palpitations, and edema, Respiratory: Negative for shortness of breath, cough, wheezing, and pleuritic chest pain, Back: Negative for injury and pain, MS/Extremity: Negative for injury and deformity, Skin: Negative for injury, rash, and discoloration, Neuro: Negative for headache, weakness, numbness, tingling, and seizure. Abdomen/GI: Positive for abdominal pain, nausea and vomiting, hematemesis. Exam: 03:09 Constitutional: This is a well developed, well nourished patient who is awake, alert, tw4 and in no acute distress. Head/Face: Normocephalic, atraumatic. Chest/axilla: Normal chest wall appearance and motion. Nontender with no deformity. No lesions are appreciated. Cardiovascular: Regular rate and rhythm with a normal S1 and S2. No gallops, murmurs, or rubs. Normal PMI, no JVD. No pulse deficits. Respiratory: Lungs have equal breath sounds bilaterally, clear to auscultation and percussion. No rales, rhonchi or wheezes noted. No increased work of breathing, no retractions or nasal flaring. Skin: Warm, dry with normal turgor. Normal color with no rashes, no lesions, and no evidence of cellulitis. MS/ Extremity: Pulses equal, no cyanosis. Neurovascular intact. Full, normal range of motion. Neuro: Awake and alert, GCS 15, oriented to person, place, time, and situation. Cranial nerves II-XII grossly intact. Motor strength 5/5 in all extremities. Sensory grossly intact. Cerebellar exam normal. Normal gait. 03:09 Abdomen/GI: Inspection: abdomen appears normal, Bowel sounds: normal, Palpation: moderate abdominal tenderness, in the epigastric area. Vital Signs: 05/25 23:02 BP 149 / 89; Pulse 102; Resp 20; Temp 97.7(O); Pulse Ox 97% ; lt1 23:05 Weight 122.47 kg (R); Height 5 ft. 7 in. (170.18 cm) (R); Pain 10/10; cc3 05/26 00:15 BP 130 / 63; Pulse 96; Resp 18 S; Pulse Ox 96% on R/A; Pain 8/10; cc3 01:00 BP 136 / 71; Pulse 91; Resp 20 S; Pulse Ox 95% on R/A; Pain 8/10; cc3 02:15 BP 147 / 75; Pulse 94; Resp 20 S; Pulse Ox 95% on R/A; cc3 03:10 BP 140 / 74; Pulse 93; Resp 17 S; Pulse Ox 94% on R/A; cc3 05/25 23:05 Body Mass Index 42.29 (122.47 kg, 170.18 cm) cc3 MDM: 05/25 23:06 Patient medically screened. tw4 05/26 03:09 Differential diagnosis: gastritis, gastroesophageal reflux disease, GI Bleed, tw4 Hepatitis, non-specific abd pain, pancreatitis, Peptic Ulcer Disease, Perf. Duodenal Ulcer, Perf. Gastric Ulcer, Peritonitis. Data reviewed: vital signs, nurses notes. Data interpreted: Pulse oximetry: Interpretation: normal. Counseling: I had a detailed discussion with the patient and/or guardian regarding: the historical points, exam findings, and any diagnostic results supporting the discharge/admit diagnosis, lab results, radiology results. Medication response: morphine markedly relieved the patient's pain. Symptoms have improved, Phenergan partially relieved the patient's nausea. ED course: CT scan of the abdomen negative. Will transfer for evaluation of hematemesis. 05/25 23:07 Order name: Basic Metabolic Panel [facility] 05/25 23:07 Order name: CBC with Diff 05/25 23:07 Order name: Creatinine for Radiology [facility] 05/25 23:07 Order name: Hepatic Function; Complete Time: 01:30 [facility] 05/26 01:32 Interpretation: Normal except: BILIT 1.1; TP 8.8; BILID 0.3; GLOB 5.2; A/G 0.7. 05/25 23:07 Order name: Lipase; Complete Time: 01:30 [facility] 05/26 01:32 Interpretation: Within normal limits: LIP 122. 05/25 23:07 Order name: Urine Microscopic Only 05/25 23:08 Order name: Basic Metabolic Panel; Complete Time: 01:30 EDUT 05/26 01:32 Interpretation: Normal except: GLUC 221; GFR 69. [facility] 05/25 23:08 Order name: CBC with Automated Diff; Complete Time: 01:30 EDUT 05/26 01:32 Interpretation: Normal except: RBC 4.95; RDW 16.5. 05/25 23:08 Order name: Creatinine (Radiology Only); Complete Time: 01:30 EDUT 05/26 01:32 Interpretation: Within normal limits: CRE 0.82. 05/25 23:27 Order name: CT Abd/Pelvis - IV Contrast Only 05/26 00:07 Order name: Urine Dipstick--Ancillary (enter results) [facility] 05/26 00:07 Order name: Urine --Ancillary (enter results) 05/26 00:28 Order name: Urine --Ancillary; Complete Time: 01:32 EDMS 05/26 01:32 Interpretation: Normal except: USPGR >1.030. tw4 05/26 00:28 Order name: Urine Dipstick-Ancillary EDMS 05/25 23:07 Order name: IV Saline Lock; Complete Time: 23:21 tw4 05/25 23:07 Order name: Labs collected and sent; Complete Time: 23:21 tw4 05/25 23:07 Order name: Urine Dipstick-Ancillary (obtain specimen); Complete Time: 00:03 tw4 Administered Medications: 05/25 23:30 Drug: morphine 4 mg {Note: RASS 0.} Route: IVP; Site: right antecubital; 3 05/26 00:00 Follow up: Response: No adverse reaction; Pain is decreased; RASS: Alert and Calm (0) cc3 05/25 23:35 Drug: Phenergan 12.5 mg Route: IVP; Site: right antecubital; 3 05/26 00:00 Follow up: Response: No adverse reaction; Nausea is decreased cc3 02:00 Drug: ProTONIX 8 mg/hr Route: IV; Rate: 25 ml/hr; Site: right antecubital; jb4 03:00 Follow up: IV Status: Infusion continued upon transfer cc3 02:00 Drug: Octreotide Infusion (50 mcg/hr) - (Octreotide 500 mcg, NS 0.9% 500 ml) Route: IV; jb4 Rate: 50 ml/hr; Site: right antecubital; 03:00 Follow up: Response: No adverse reaction; IV Status: Infusion continued upon transfer cc3 02:08 Drug: Octreotide 25 mcg Route: IV; Rate: calculated rate; Site: right antecubital; 02:10 Follow up: Response: No adverse reaction; IV Status: Completed infusion cc3 02:10 Drug: morphine 2 mg {Note: RASS 0.} Route: IVP; Site: right antecubital; cc3 02:40 Follow up: Response: No adverse reaction; Pain is decreased; RASS: Alert and Calm (0) cc3 02:15 Drug: Phenergan 12.5 mg Route: IVP; Site: right antecubital; cc3 03:05 Follow up: Response: No adverse reaction; Nausea is decreased cc3 02:21 CANCELLED (Duplicate Order): morphine 2 mg IVP once; (PAIN>8) RASS on ADMN: Combtv4, cc3 Very Agttd3, Agttd2, Rstlss1, AlertClm0, Drwsy-1, LtSdtn-2, ModSdtn-3, DpSdtn-4, UnArsble-5 x2 Disposition: 05/26/19 02:12 Transfer ordered to [facility]. Diagnosis are Hematemesis, Gastroparesis, Abdominal tenderness. - Reason for transfer: Higher level of care. - Accepting physician is Dr Guardado. - Condition is Stable. - Problem is an ongoing problem. - Symptoms are unchanged. Signatures: Dispatcher [employer] EDMS Faustina Canada RN RN Guillermo Hawkins RN RN jb4 Mohinder Croft MD MD tw4 Mar Dalton cc3 Corrections: (The following items were deleted from the chart) 02:21 02:05 morphine 2 mg IVP once; (PAIN>8) RASS on ADMN: Combtv4, Very Agttd3, Agttd2, cc3 Rstlss1, AlertClm0, Drwsy-1, LtSdtn-2, ModSdtn-3, DpSdtn-4, UnArsble-5 x2 ordered. cc3 02:21 02:20 morphine 2 mg IVP once; (PAIN>8) RASS on ADMN: Combtv4, Very Agttd3, Agttd2, cc3 Rstlss1, AlertClm0, Drwsy-1, LtSdtn-2, ModSdtn-3, DpSdtn-4, UnArsble-5 x2 ordered. cc3 03:28 02:12 05/26/2019 02:12 Transfer ordered to [facility]. Diagnosis is cc3 Hematemesis; Gastroparesis; Abdominal tenderness. Reason for transfer: Higher level of care. Accepting physician is Dr Guardado. Condition is Stable. Problem is an ongoing problem. Symptoms are unchanged. tw4
--- NOTE | 2019-05-26 09:19 | RAD REPORT ---
EXAM DESCRIPTION: CT - Abdomen Pelvis W Contrast - 05/26/2019 3:27 am CLINICAL HISTORY: The patient is 54 years old and is Female; ABD PAIN TECHNIQUE: Axial computed tomography images of the abdomen and pelvis with intravenous contrast. S agittal and coronal reformatted images were created and reviewed. This CT exam was performed using one or more of the following dose reduction techniques: automated exposure control, adjustment of t he mA and/or kV according to patient size, and/or use of iterative reconstruction technique. COMPARISON: No relevant prior studies available. FINDINGS: LUNG BASES: Unremarkable. No mass. No consolidation. ABDOMEN: LIVER: There is a diffuse decrease in hepatic parenchymal density, consistent with fatty infiltr ation. The liver has a slightly nodular contour. GALLBLADDER AND BILE DUCTS: Surgical clips are present in the right upper quadrant, consistent w ith previous cholecystectomy. PANCREAS: The pancreas is atrophic. SPLEEN: Unremarkable. ADRENALS: Unremarkable. No mass. KIDNEYS AND URETERS: Punctate left intrarenal calcification is present. The kidneys enhance symm etrically. No obstructing renal or ureteral calculus is seen. STOMACH AND BOWEL: Postsurgical change of the sigmoid colon is present. The stomach is not well distended. The proximal small bowel is decompressed. Multiple dilated fluid-filled small bowel loops with air-fluid levels within the right abdomen are present at the site of prior anastomosis. Stool is present throughout the colon. PELVIS: APPENDIX: The appendix is surgically absent. BLADDER: The bladder is nearly empty. REPRODUCTIVE: The patient is status post hysterectomy. ABDOMEN and PELVIS: INTRAPERITONEAL SPACE: Unremarkable. No free air. No significant fluid collection. BONES/JOINTS: No acute fracture. SOFT TISSUES: The soft tissues are normal. VASCULATURE: An infrarenal IVC filter is in place. No abdominal aortic aneurysm. LYMPH NODES: Unremarkable. No enlarged lymph nodes. IMPRESSION: 1. Findings suggestive of small bowel ileus/developing obstruction at the site of the anastomosis within the right lower quadrant. 2. Cirrhosis. Electronically signed by: Mely Yang MD 05/26/2019 12:56 AM CDT Due to temporary technical issues with the PACS/Fluency reporting system, reports are being signed by the in house radiologist as a courtesy to ensure prompt reporting. The interpreting radiologist is f ully responsible for the content of the report.
== END 2019-05-26 03:28 | disposition short-term general hospital (02) ==
LOC: ER 22:43
DX: K92.0 Hematemesis (principal); K31.84 Gastroparesis; Z88.1 Allergy status to other antibiotic agents; Z88.8 Allergy status to other drugs, medicaments and biological substances
CPT/HCPCS: 96365; 96368; 85025; 80048; 36415; 81025; 80076; 81003; 81015; 83690; 74177; 96375; 99285; Q9967; J2550 ×2; J2354; C9113; J2270

== ENCOUNTER 2020-11-11 14:07 | Emergency (ER) | payer OTHER ==
[2020-11-11 17:28] LABS: Absolute Lymphocytes (CBC) 1.4 K/uL (0.7-4.9); Basophils % 1.1 % (0-1.3); Hematocrit 40.5 % (36.0-45.0); Lymphocytes % 19.4 % (15.3-44.8); MPV 10.2 fL (7.6-11.3); RBC Red Blood Cell Count 4.87 M/uL (3.86-4.86)
[2020-11-11] MEDS ORDERED: PROMETHAZINE INJ 25 MG/ML AMP ONE ×2 (17:37→20:21)
[2020-11-11] MEDS ORDERED: NA CHLORIDE 0.9% 500 ML ONE (17:38)
[2020-11-11] MEDS ORDERED: MORPHINE 4 MG/ML SYR ONE (17:38)
[2020-11-11 17:43] LABS: Albumin 3.6 g/dL (3.4-5.0); Bilirubin Direct 0.3 mg/dL (0-0.2); Bilirubin Total 0.9 mg/dL (0.2-1.0); Potassium 3.9 mmol/L (3.5-5.1); Protein, Total 8.3 g/dL (6.4-8.2)
--- NOTE | 2020-11-11 19:48 | RAD REPORT ---
EXAM DESCRIPTION: CT - Abdomen Pelvis W Contrast - 11/11/2020 7:30 pm CLINICAL HISTORY: abd painin the right upper quadrant, history of autoimmune hepatitis, colitis with prior bowel obstructions, prior appendectomy and hernia repair COMPARISON: <Comparisons> TECHNIQUE: Biphasic, helical CT imaging of the abdomen and pelvis was performed following 100 ml non -ionic IV contrast. Oral contrast was given. All CT scans are performed using dose optimization technique as appropriate and may include automated exposure control or mA/KV adjustment according to patient size. FINDINGS: No suspicious findings in the lung bases. No focal liver parenchymal lesion. Capsule nodularity is present consistent with the cirrhosis histor y. Cholecystectomy clips are present. No biliary tree dilatation. Spleen and pancreas show no acute f indings. Symmetric renal function is seen with no hydronephrosis or suspicious renal mass. No pyelonephritis o r acute parenchymal process. Urinary bladder is too contracted to allow assessment. Uterus is absent. Ovaries are absent or atrophic. No adnexal acute finding seen. No adrenal abnormalities. Punctate nonobstructing calculus seen in the lower pole left kidney. No gastric dilatation. Gastric hawkins are accentuated by the absence of intraluminal content. No dilat ed small bowel loops. Colon is not dilated. Small bowel and colon anastomotic sites show no acute com ponents. Multiple bowel loops abut the abdominal wall. Postsurgical changes are noted to the abdomina l wall with thinning of the fascia. Adhesion of bowel to the inner surface of the abdominal wall frederic ot be excluded. This does not cause obstruction or bowel wall thickening. No free air or pneumatosis. No abnormal free fluid. No soft tissue mass or bulky lymphadenopathy. No omental thickening. No suspicious bony findings. No acute vascular finding. IVC filter is in place. IMPRESSION: No bowel obstruction, free air or surgically emergent finding. Cirrhosis of the liver is seen with no focal liver lesion or portal vein thrombosis. No acute GI finding and no acute finding.
[2020-11-11] MEDS ORDERED: DICYCLOMINE HCL 20 MG/2 ML AMP IM ONE (20:23)
--- NOTE | 2020-11-11 21:18 | EDPHYS ---
Physician Documentation [facility] Name: Leslie Thacker Age: 55 yrs Sex: Female : 1965 Arrival Date: 11/11/2020 Time: 14:10 Bed 14 Private MD: ED Physician Mansoor Dumas HPI: 11/11 16:40 This 55 yrs old Female presents to ER via Ambulatory with complaints of cp Abdominal Pain. 16:40 The patient presents with abdominal pain right lower quadrant. Onset: The cp symptoms/episode began/occurred gradually, for weeks, becoming worse. Associated signs and symptoms: Pertinent positives: diarrhea, nausea, Pertinent negatives: blood in stools, fever, vomiting. The symptoms are described as waxing/waning. The patient has experienced similar episodes in the past, several times, today's symptoms are similar, to when the patient was apparently diagnosed with bowel obstruction. Historical: - Allergies: 15:03 Dilaudid; ca1 15:03 Doxycycline; ca1 15:03 Keflex; ca1 - PMHx: 15:03 autoimmune hepatitis; Colitis; DM; DVT; IBSD; Pulmonary Embolism; stage 4 cirrhosis; ca1 - PSHx: 15:03 Appendectomy; Hernia repair; ; ca1 - Immunization history:: Flu vaccine is up to date. - Social history:: Smoking status: Patient denies any tobacco usage or history of. ROS: 16:45 Constitutional: Negative for body aches, chills, fever. cp 16:45 Eyes: Negative for injury, pain, redness, and discharge. cp 16:45 ENT: Negative for ear pain, sore throat, difficulty swallowing, difficulty handling secretions. 16:45 Respiratory: Negative for cough, shortness of breath, wheezing. 16:45 Abdomen/GI: Positive for abdominal pain, nausea, diarrhea, Negative for vomiting, constipation, black/tarry stool, rectal bleeding. 16:45 Back: Negative for radiated pain. 16:45 Neuro: Negative for altered mental status, headache, weakness. Exam: 16:50 Constitutional: The patient appears in no acute distress, alert, awake, cp non-diaphoretic, non-toxic, well developed, well nourished, obese. 16:50 Head/Face: Normocephalic, atraumatic. cp 16:50 Eyes: Periorbital structures: appear normal, Conjunctiva: normal, no exudate, no injection, Sclera: no appreciated abnormality, Lids and lashes: appear normal, bilaterally. 16:50 ENT: External ear(s): are unremarkable, Nose: is normal, Mouth: Lips: moist, Oral mucosa: pink and intact, moist, Posterior pharynx: Airway: no evidence of obstruction, patent. 16:50 Chest/axilla: Inspection: normal, Palpation: is normal, no crepitus, no tenderness. 16:50 Cardiovascular: Rate: normal, Rhythm: regular, Edema: is not appreciated, JVD: is not appreciated. 16:50 Respiratory: the patient does not display signs of respiratory distress, Respirations: normal, no use of accessory muscles, no retractions, labored breathing, is not present, Breath sounds: are clear throughout, no decreased breath sounds, no stridor, no wheezing. 16:50 Abdomen/GI: Inspection: obese Bowel sounds: active, all quadrants, Palpation: soft, in all quadrants, moderate abdominal tenderness, in the right upper quadrant and right lower quadrant, rebound tenderness, is not appreciated, voluntary guarding, is elicited in the right upper quadrant and right lower quadrant. 16:50 Back: CVA tenderness, is absent. 16:50 Skin: cellulitis, is not appreciated, no rash present. 16:50 Neuro: Orientation: to person, place \T\ time. Mentation: is normal, Motor: moves all fours, strength is normal. Vital Signs: 14:59 BP 148 / 83; Pulse 96; Resp 16 S; Temp 98(TE); Pulse Ox 97% on R/A; Weight 116.12 kg ca1 (R); Height 5 ft. 7 in. (170.18 cm) (R); Pain 9/10; 18:40 BP 100 / 55; Pulse 65; Resp 17 S; Pulse Ox 97% on R/A; jd3 20:00 BP 121 / 66; Pulse 69; Resp 18; Pulse Ox 95% on R/A; jb4 14:59 Body Mass Index 40.09 (116.12 kg, 170.18 cm) ca1 MDM: 16:31 Patient medically screened. cp 17:30 Differential diagnosis: bowel obstruction, cholecystitis, Cholelithiasis, gastritis, cp non-specific abd pain, pancreatitis, Pyelonephritis, Ureterolithiasis, urinary tract infection. 20:13 Data reviewed: vital signs, lab test result(s), radiologic studies, CT scan. 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 Response to treatment: the patient's symptoms have markedly improved after treatment, and as a result, I will discharge patient. ED course: VSS. Pain and nausea improved with meds. CT abdomen/pelvis negative for acute findings. Will discharge to home for continued monitoring. 11/11 16:35 Order name: Glucose, Ancillary Testing; Complete Time: 17:36 EDMS 11/11 16:35 Order name: Basic Metabolic Panel cp 11/11 16:35 Order name: CBC with Diff cp 11/11 16:35 Order name: Hepatic Function cp 11/11 16:35 Order name: Lipase cp 11/11 17:34 Order name: CBC with Automated Diff; Complete Time: 17:36 EDMS 11/11 17:36 Interpretation: Normal except: RBC 4.87; PLT 131; RDW 15.4. cp 11/11 16:35 Order name: CT Abd/Pelvis - PO and IV Contrast cp 11/11 17:44 Order name: Basic Metabolic Panel; Complete Time: 19:59 EDMS 11/11 19:59 Interpretation: Normal except: GFR 78. cp 11/11 17:44 Order name: Liver (Hepatic) Function; Complete Time: 19:59 EDMS 11/11 19:59 Interpretation: Normal except: BILID 0.3; TP 8.3; GLOB 4.7; A/G 0.8. cp 11/11 17:44 Order name: Lipase; Complete Time: 19:59 EDMS 11/11 19:50 Order name: CT; Complete Time: 19:59 EDMS 11/11 16:35 Order name: IV Saline Lock; Complete Time: 18:13 cp 11/11 16:35 Order name: Labs collected and sent; Complete Time: 18:13 cp 11/11 20:05 Order name: PO challenge; Complete Time: 20:21 cp Administered Medications: 17:30 Drug: morphine 4 mg Route: IVP; Site: right antecubital; jd3 18:30 Follow up: Response: No adverse reaction; RASS: Alert and Calm (0) jd3 17:30 Drug: NS 0.9% 500 ml Route: IV; Rate: bolus; Site: right antecubital; jd3 18:30 Follow up: Response: No adverse reaction; IV Status: Completed infusion; IV Intake: jd3 500ml 18:13 Drug: Phenergan 12.5 mg Route: IVP; Site: right antecubital; jd3 19:00 Follow up: Response: No adverse reaction jd3 20:21 Not Given (Patient Refused): Phenergan 12.5 mg IVP once jb4 20:21 Not Given (Patient Refused): Bentyl 20 mg IM once jb4 Disposition: 11/12 12:28 Co-signature as Attending Physician, Mansoor Dumas MD. ma2 Disposition: 11/11/20 20:14 Discharged to Home. Impression: Unspecified abdominal pain. - Condition is Stable. - Discharge Instructions: Abdominal Pain, Adult. - Prescriptions for Bentyl 20 mg Oral Tablet - take 1 tablet by ORAL route every 6 hours As needed; 30 tablet. promethazine 25 mg Oral Tablet - take 1 tablet by ORAL route every 6 hours As needed; 20 tablet. - Medication Reconciliation Form, Thank You Letter, Antibiotic Education, Prescription Opioid Use form. - Follow up: Private Physician; When: 1 - 2 days; Reason: Recheck today's complaints. - Problem is new. - Symptoms have improved. Signatures: Dispatcher [employer] EDMS Kevin Quinn PA PA cp Bryson, James, RN RN jb4 Agus Erickson RN RN jd3 Alzahri, Mohammad, MD MD ma2 Kenzie Pollard RN RN ca1 Corrections: (The following items were deleted from the chart) 11/11 20:25 20:14 11/11/2020 20:14 Discharged to Home. Impression: Unspecified abdominal pain. jb4 Condition is Stable. Forms are Medication Reconciliation Form, Thank You Letter, Antibiotic Education, Prescription Opioid Use. Follow up: Private Physician; When: 1 - 2 days; Reason: Recheck today's complaints. Problem is new. Symptoms have improved. cp
--- NOTE | 2020-11-11 21:18 | ER ---
Nurse's Notes [facility] Name: Leslie Thacker Age: 55 yrs Sex: Female : 1965 Arrival Date: 11/11/2020 Time: 14:10 Bed 14 Private MD: Diagnosis: Unspecified abdominal pain Presentation: 11/11 14:59 Chief complaint: Patient states: Last few weeks, I have been having abdominal pain. I ca1 have a lot of stomach issues and multiple bowel obstructions, 2 last year. The pain is just getting worse at this time. Reports N/diarrhea. This pain feels like before, and exactly where it was before on the RUQ. Coronavirus screen: Client denies travel out of the [place] in the last 14 days. diarrhea, nausea, Client presents with at least one sign or symptom that may indicate coronavirus-19. Standard/surgical mask placed on the client. Provider contacted for isolation considerations. Ebola Screen: Patient negative for fever greater than or equal to 101.5 degrees Fahrenheit, and additional compatible Ebola Virus Disease symptoms Patient denies exposure to infectious person. Patient denies travel to an Ebola-affected area in the 21 days before illness onset. No symptoms or risks identified at this time. Initial Sepsis Screen: Does the patient meet any 2 criteria? No. Patient's initial sepsis screen is negative. Does the patient have a suspected source of infection? No. Patient's initial sepsis screen is negative. Risk Assessment: Do you want to hurt yourself or someone else? Patient reports no desire to harm self or others. Onset of symptoms was November 11, 2020. 14:59 Method Of Arrival: Ambulatory ca1 14:59 Acuity: BRADEN 3 ca1 Historical: - Allergies: 15:03 Dilaudid; ca1 15:03 Doxycycline; ca1 15:03 Keflex; ca1 - PMHx: 15:03 autoimmune hepatitis; Colitis; DM; DVT; IBSD; Pulmonary Embolism; stage 4 cirrhosis; ca1 - PSHx: 15:03 Appendectomy; Hernia repair; ; ca1 - Immunization history:: Flu vaccine is up to date. - Social history:: Smoking status: Patient denies any tobacco usage or history of. Screenin:45 Abuse screen: Denies threats or abuse. Nutritional screening: No deficits noted. jd3 Tuberculosis screening: No symptoms or risk factors identified. Fall Risk Ambulatory Aid- None/Bed Rest/Nurse Assist (0 pts). Gait- Normal/Bed Rest/Wheelchair (0 pts) Mental Status- Oriented to own ability (0 pts). Total Joe Fall Scale indicates No Risk (0-24 pts). Assessment: 16:45 General: Appears in no apparent distress. comfortable, Behavior is calm, cooperative, jd3 appropriate for age. Pain: Complains of pain in abdomen Quality of pain is described as aching. Neuro: Level of Consciousness is awake, alert, obeys commands, Oriented to person, place, time, situation. Cardiovascular: Denies chest pain, Capillary refill < 3 seconds Patient's skin is warm and dry. Respiratory: Airway is patent Respiratory effort is even, unlabored, Respiratory pattern is regular, symmetrical, Denies cough, shortness of breath. GI: Abdomen is round non-distended, Abd is soft and non tender X 4 quads. Reports lower abdominal pain, upper abdominal pain, nausea, Patient currently denies constipation, diarrhea. : No signs and/or symptoms were reported regarding the genitourinary system. EENT: No signs and/or symptoms were reported regarding the EENT system. Derm: Skin is intact, Skin is dry, Skin is normal, Skin temperature is warm. Musculoskeletal: Circulation, motion, and sensation intact. Range of motion: intact in all extremities. 17:38 Reassessment: PO CONTRAST COMPLETE, CT NOTIFIED. bp 17:45 Reassessment: Patient appears in no apparent distress at this time. No changes from jd3 previously documented assessment. Patient and/or family updated on plan of care and expected duration. Pain level reassessed. Patient is alert, oriented x 3, equal unlabored respirations, skin warm/dry/pink. 18:45 Reassessment: Patient appears in no apparent distress at this time. No changes from jd3 previously documented assessment. Patient and/or family updated on plan of care and expected duration. Pain level reassessed. Patient is alert, oriented x 3, equal unlabored respirations, skin warm/dry/pink. 19:40 Reassessment: Patient appears in no apparent distress at this time. Patient and/or jb4 family updated on plan of care and expected duration. Pain level reassessed. Patient is alert, oriented x 3, equal unlabored respirations, skin warm/dry/pink. Patient states feeling better. 20:23 Reassessment: Patient appears in no apparent distress at this time. Patient and/or jb4 family updated on plan of care and expected duration. Pain level reassessed. Patient is alert, oriented x 3, equal unlabored respirations, skin warm/dry/pink. PT tolerated PO challenge. Refused medication due to driving herself home. Verbalized understanding of d/c and follow up instructions. Denies questions or concerns. Ambulated out of ED with steady gait. Vital Signs: 14:59 BP 148 / 83; Pulse 96; Resp 16 S; Temp 98(TE); Pulse Ox 97% on R/A; Weight 116.12 kg ca1 (R); Height 5 ft. 7 in. (170.18 cm) (R); Pain 9/10; 18:40 BP 100 / 55; Pulse 65; Resp 17 S; Pulse Ox 97% on R/A; jd3 20:00 BP 121 / 66; Pulse 69; Resp 18; Pulse Ox 95% on R/A; jb4 14:59 Body Mass Index 40.09 (116.12 kg, 170.18 cm) ca1 ED Course: 14:10 Patient arrived in ED. as 15:02 Triage completed. ca1 15:03 Arm band placed on right wrist. ca1 16:30 Kevin Quinn PA is PHCP. cp 16:30 Mansoor Dumas MD is Attending Physician. cp 16:46 Agus Erickson RN is Primary Nurse. jd3 18:45 Patient has correct armband on for positive identification. Placed in gown. Bed in low jd3 position. Call light in reach. Side rails up X2. Pulse ox on. NIBP on. 20:24 No provider procedures requiring assistance completed. IV discontinued, intact, jb4 bleeding controlled, No redness/swelling at site. Pressure dressing applied. Administered Medications: 17:30 Drug: morphine 4 mg Route: IVP; Site: right antecubital; jd3 18:30 Follow up: Response: No adverse reaction; RASS: Alert and Calm (0) jd3 17:30 Drug: NS 0.9% 500 ml Route: IV; Rate: bolus; Site: right antecubital; jd3 18:30 Follow up: Response: No adverse reaction; IV Status: Completed infusion; IV Intake: jd3 500ml 18:13 Drug: Phenergan 12.5 mg Route: IVP; Site: right antecubital; jd3 19:00 Follow up: Response: No adverse reaction jd3 20:21 Not Given (Patient Refused): Phenergan 12.5 mg IVP once jb4 20:21 Not Given (Patient Refused): Bentyl 20 mg IM once jb4 Intake: 18:30 IV: 500ml; Total: 500ml. jd3 Outcome: 20:14 Discharge ordered by . cp 20:24 Discharged to home ambulatory. jb4 20:24 Condition: stable 20:24 Discharge instructions given to patient, Instructed on discharge instructions, follow up and referral plans. medication usage, Demonstrated understanding of instructions, follow-up care, medications, Prescriptions given X 2. 20:25 Patient left the ED. jb4 Signatures: Kamille Olsen Corey, PA PA cp Bryson, James, RN RN jb4 Agus Erickson RN RN jShade Gonzalez RN RN bp Acob, Cheryl, RN RN ca1 Corrections: (The following items were deleted from the chart) 20:23 19:40 Reassessment: Patient appears in no apparent distress at this time. Patient jb4 and/or family updated on plan of care and expected duration. Pain level reassessed. Patient is alert, oriented x 3, equal unlabored respirations, skin warm/dry/pink. PT tolerated PO challenge. Refused medication due to driving herself home. Verbalized understanding of d/c and follow up instructions. Denies questions or concerns. Ambulated out of ED with steady gait. jb4 20:24 20:00 BP 216 / 6; Pulse 69bpm; Resp 18bpm; Pulse Ox 95% RA; jb4 jb4
== END 2020-11-11 20:25 | disposition home or self-care (01) ==
LOC: ER 14:07
DX: R10.9 Unspecified abdominal pain (principal); Z88.3 Allergy status to other anti-infective agents; Z88.1 Allergy status to other antibiotic agents
CPT/HCPCS: 85025; 80048; 36415; 82947; 80076; 83690; 74177; Q9967; J2550; J7040; 96361; 96374; 96375; 99283; J0500

== ENCOUNTER 2021-01-07 12:26 | Observation (INO) | payer OTHER ==
--- OUTSIDE RECORDS SUMMARY | 2021-01-07 12:34 | XMS REPORT | Continuity of Care Document ---
:1965 Author Organization [facility] t Address [address] [place] [address] Care Team Providers Name Role Phone JOSE REID, Primary Care Physician Tha FAIR, Y Attending Clinician Unavailable Marylou Haley Attending Clinician Unavailable Jay FRIEDMAN, KFrannie Attending Clinician Martha Esparza Attending Clinician Isabella MANN Attending Clinician Unavailable Buster ANNE Attending Clinician Unavailable Desiree FRIEDMAN Attending Clinician Emmanuel Stephen Attending Clinician Chuck Serrato MA Attending Clinician Unavailable Shaniqua HARMAN Attending Clinician Yolanda FRIEDMAN Attending Clinician Sylvia FRIEDMAN Attending Clinician Fernando TAPIA MD, Declan Attending Clinician Bradley Montana NP Attending Clinician Adelina Dubois Attending Clinician [phone] Buck Attending Clinician Unavailable Jeferson Attending Clinician Unavailable Kwesi Attending Clinician Unavailable Tierra Jordan MD Attending Clinician Doctor Unassigned, Name Attending Clinician Unavailable lJ FAIR, L Attending Clinician Unavailable Jeaneth FRIEDMAN Attending Clinician Shar FRIEDMAN Attending Clinician Liliam FRIEDMAN Attending Clinician Winsome FRIEDMAN Attending Clinician Stefan ANNE Attending Clinician Unavailable Deondre Attending Clinician Unavailable Nela Valdez Attending Clinician Shant Patricia DO Attending Clinician NELA VALDEZ Attending Clinician Unavailable Nelli FRIEDMAN Attending Clinician Latoya Ortiz MD Attending Clinician Dedrick Quinteros MD Attending Clinician Cristal AVENDAÑO Attending Clinician Unavailable Luz MARTIN Attending Clinician Unavailable BRUCE AMADOR Attending Clinician Unavailable Cristal VAUGHN Attending Clinician Unavailable TOYA Attending Clinician Unavailable Herlinda ESCALANTE Attending Clinician Unavailable Manav GOMES Attending Clinician Unavailable Luz PEREZ Attending Clinician Unavailable Shar FRIEDMAN Admitting Clinician NELA VALDEZ Admitting Clinician Unavailable Isabella MANN Admitting Clinician Unavailable BRUCE AMADOR Admitting Clinician Unavailable DARLINE WITT Admitting Clinician Unavailable Adelina Dubois Unavailable [phone] Payers Payer Name Policy Policy Number Effective Expiration Source Type Date Date [facility] - [id number] 2020 CECY Mora MEDICARE MGD 00:00:00 - Medical CAREUNITED MEDICARE Siobhan manriquez [id number] 2020- Present MEDICAIDMEDICAID OF [id number] 2019 CECY Manav Mora [id number] 00:00:00 - M edical 0-PresentMedicaid Center HEBRON [id number] 2019 CECY Elenanancy MARKETPLACEMOLINA 00:00:00 - Medic al MARKETPLACE Center [id number] [id number] CI [id number] 2020 2021 [facility] 00:00:00 00:00:00 [facility] [id number] 2019 CECY Shi Frannie Elenanancy 00:00:00 - Patients Medical [facility] [id number] CECY Shi Frannie Elenanancy Ppo - Patients Medical [facility] [id number] CECY Manav leeFrannie Parkernancy - Patients Medical Center Problems Condition Condition Condition Status Onset Resolution Last Treating Co mments Source Name Details Category Date Date Treatment Clinician Date Hypothyroi Condition Active 2019-102020-08-02 Elnea [facility] d 0-22 08:44:00 en, Elvin Commu ni 00:00: C ty 00 Health Liver Condition Active 2019-102020-08-02 Elena [facility] cirrhosis 0-22 08:44:00 en, Elvin Co mmuni 00:00: C ty 00 Health Degenerati Degenerati Disease Active [facility] ve ve 5-28 Abby - arthritis arthritis 00:00: Medi stephani of distal of distal 00 Cent er interphala interphala ngeal ngeal joint of joint of ring ring finger of finger of right hand right hand Hepatic Hepatic Disease Active [facility] encephalop encephalop 2-06 Elena kes - athy athy 00:00: Medical 00 Center Hepatitis Hepatitis Disease Active [facility] B core B core 2-06 Abby - antibody antibody 00:00: Medica l positive positive 00 Center UGIB UGIB Disease Active [facility] (upper (upper 8-16 [facility] - gastrointe gastrointe 00:00: Me dical stinal stinal 00 Center bleed) bleed) Obesity, Obesity, Disease Active [facility] Class III, Class III, 7-03 Elena kes - BMI BMI 00:00: Medical 40-49.9 40-49.9 00 Center (morbid (morbid obesity) obesity) Abdominal Abdominal Disease Active [facility] pain pain 7- [facility] - 00:00: Medical 00 [place] 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 Abnormal liver enzyme appears to be related to nonalcoho lic fatty liver disease and she has multiple risk factors for that Class 3 Class 3 Disease Active [facility] severe severe 04-29 Assessmen Lunancy - obesity in obesity in 00:00: t & Plan: Medical adult adult 00 The Center patient's current BMI is 40. Obesity is an establish ed risk factor for vascular complicat ions (ie coronary artery disease, cerebrova scular disease, periphera l vascular disease), osteoarth ritis, pulmonary disease, as well as the developme nt of non-alcoh olic fatty liver disease and the risk for non-alcoh olic steatohep atitis. We have recommend ed a structure d weight loss program (10% body weight initially ), along with dietary modificat ions and regular exercise for overall good health and to minimize the risk of obesity -related complicat ions. The assessmen t of a crna or nutrition ist may be beneficia l.I discussed the following weight loss technique s:(1) Decreasin g portion size. (2) Avoid eating in front of Sp[place] n or computers . Eat at a dining room table instead. (3) Start exercisin g. Start at 15 minutes every day and increase by 2 minutes every 2 weeks. Your goal is to exercise 30-45 minutes most days of the week. Time yourself every time you exercise and do not go over your alloted time for the day. You can try fast walking or swimming. Screening Screening Disease Active Last [facility] for for - Ford Mora - endocrine/ endocrine/ 00:00: t & Plan: Medical metabolic/ metabolic/ 00 Serologic Center immunity immunity al tests disorders disorders will be completed to determine the presence of immunity to hepatitis A and B. If found susceptib le she will be referred to her primary care provider to consider the administr ation of the appropria te vaccines. Cirrhosis Cirrhosis Disease Active Last [facility] of liver of liver 04-29 Assessmarylou Gomez es - without without 00:00: t & Plan: Medic al ascites ascites 00 Compensat Cente r ed cirrhosis , diagnosed by jt fisher of symptoms/ examinati on/labs/i maging. There is not any evidence of acute decompens ation. 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 Allergies, Adverse Reactions, Alerts Allergy Allergy Status Severity Reaction(s) Onset Inactive Treating Comm ents Source Name Type Date Date Clinician KEFLEX Drug Active High [facility] allergy Criticali 03-19 Commun i (disorde ty 00:00: ty r) 00 Health DILAUDID Drug Active High [facility] allergy Criticali 03-19 Commun i (disorde ty 00:00: ty r) 00 Health DOXYCYCL Drug Active High [facility] INE allergy Criticali 03-19 Commun i (disorde ty 00:00: ty r) 00 Health hydromor DA Active SV 2018-10 [facility] phone 0-30 Clear 00:00: Costello 00 [facility] Adhesive Propensi Active Rash [facility] ty to 01-10 [facility] - adverse 00:00: Medical reaction 00 Center s Fluconaz Drug Active Rash 2019- [facility] ole Allergy 4-02 [facility] - 00:00: Medical 00 [place] Cephalex Allergy Active Mild 2017- [facility] in to 0-04 [facility] - substanc 00:00: Patient e 00 s Medical [place] Doxycycl Allergy Active Mild 2017- [facility] ine to 0-04 [facility] - substanc 00:00: Patient e 00 [facility] Hydromor Allergy Active Mild HALLUCINATIO 2017- [facility] phone to NS 0-04 [facility] - substanc 00:00: Patient e 00 [facility] Hydromor Propensi Active Other (See [address] phone ty to Comments) 7-20 tion [facility] - (Bulk) adverse 00:00: Medical reaction 00 [place]oxy[place] [address] ine ty to Vomiting 720 [facility] - Hyclate adverse 00:00: Medical reaction 00 [facility] Cephalex [place] [address] in ty to Vomiting 7 [facility] - adverse 00:00: Medical reaction 00 [place] s Cephalex DA Active [place] 2008-10 [facility] in -12 Clear Monohydr 00:00: Costello ate 00 [facility] doxycycl DA Active [place] 2008-10 [facility] ine 1-12 Clear 00:00: Costello 00 [facility] adhesive DA Active [place] 2008-10 [facility] tape -12 Clear 00:00: Costello 00 [facility] Family History Family Member Diagnosis Comments Start Date Stop Date Source Natural father Cancer [facility] Natural father Diabetes [facility] Maternal grandfather Alzheimer's [facility] Maternal grandfather Other [facility] Maternal grandmother Anuerysm [facility] Maternal grandmother Stroke [facility] Natural mother Heart disease [facility] Paternal grandmother Cancer [facility] Social History Social Habit Start Date Stop Date Quantity Comments Source History of tobacco Current smoker [facility] - use [facility] History SDOH [facility] - Alcohol Std Drinks [facility] History SDOH [facility] St kes - Alcohol Binge Medical [address] Tobacco use and 2020-12-26 2020-12-[address] Elena kes - exposure 00:00:00 00:00:00 [facility] Alcohol intake 2020-12-26 2020-12-[address] Jason es - 00:00:00 00:00:00 non-drinker of Medical Ce nter alcohol (finding) Tobacco Comment 2019-03-14 2019-03-14 quit 2015 [facility] kes - 00:00:00 00:00:00 Medical Center History SDOH 2019-01-04 2019-01-[address] [facility] - Alcohol Frequency 00:00:00 00:00:00 [facility] Sex Assigned At [birth year] [facility] - 00:00:00 00:00:00 Patients Medic al Center Smoking Status Start Date Stop Date Source Former smoker 2020-12-26 00:00:00 2020-12-26 00:00:[address] [facility] Medications Ordered Filled Start Stop Current Ordering Indication Dosage Frequency Signature Comments Components Source Medication Medication Date Date Medication? Clinician (SIG) Name Name DULoxetine No 60mg QD Take [address] (CYMBALTA) 12-26-18 by mouth Luke s - 60 MG 15:57: 00:00 nightly. Medical capsule 30 :00 Center gabapentin No 300mg Take [address] (NEURONTIN) 12-26-18 mg by [facility] - 300 MG 15:57: 00:00 mouth 3 Medical capsule 12 :00 (three) Center times daily as needed. pilocarpine 2020- No 5mg Take [address] (SALAGEN) 5 12-26-18 by mouth Jason es - MG tablet 15:56: 00:00 once. Medica l 34 :00 Center enoxaparin 2020- No Q.5D Inject [facility] (LOVENOX) 12-26-18 subcutaneo Jason es - 80 mg/0.8 15:56: 00:00 usly 2 Medic al mL Syrg 34 :00 (two) Center times daily . hyoscyamine No .75mg Q.5D Take 0.[address] (LEVBID) -18 -18 mg by [facility] - 0.375 mg 12 15:56: 00:00 mouth 2 Me dical hr tablet 34 :00 (two) Center times daily 2 tablet of 0.375 twice day. atorvastati Yes 40mg QD Take [address] n (LIPITOR) 3-18 by mouth Luke s - 40 MG 15:49: daily. Medical tablet 13 Center insulin Yes Inject [facility] aspart 3-18 subcutaneo [facility]ukes - U-100 15:49: usly 3 Medical (NOVOLOG) 13 (three) Center 100 unit/mL times (3 mL) InPn daily before meals 12 units before meals with sliding scale. traZODone Yes 50mg QD Take [address] (DESYREL) 3-18 by mouth [facility] - 50 MG 15:49: nightly. Medical tablet 13 [place] dicyclomine Yes 10mg Take [address] (BENTYL) 10 3-18 by mouth 4 Elena kes - MG capsule 15:49: (four) Medic al 13 times Center daily before meals and nightly. escitalopra Yes 20mg QD Take [address] m oxalate 3-18 by mouth [facility] - (LEXAPRO) 15:49: daily. Medica l 20 MG 13 [place] tablet insulin Yes QD Inject [facility] detemir 3-18 subcutaneo [facility] - U-100 15:49: usly Medical (LEVEMIR) 13 nightly. Center 100 unit/mL injection omeprazole Yes 40mg QD Take [address] (PRILOSEC) 3-18 by mouth [facility] - 40 MG 15:49: daily. Medical capsule 13 [place] traMADoL Yes 50mg Take [address] (ULTRAM) 50 3-18 by mouth Luke s - mg tablet 15:49: every 6 Medic al 13 (six) Center hours as needed for Pain. carvedilol Yes 6.25mg Take 6.[address] (COREG) 3-18 mg by [facility]ukes - 6.25 MG 15:49: mouth 2 Medical tablet 13 (two) Center times daily with breakfast and dinner. levothyroxi Yes 125ug Take [address] ne 3-18 mcg by [facility]ukes - (SYNTHROID, 15:49: mouth Medic al LEVOTHROID) 13 Every Center 125 MCG morning on tablet an empty stomach. promethazin Yes 12.5mg Take 12.[address] e 3-18 mg by [facility]ukes - (PHENERGAN) 15:49: mouth Medic al 12.5 MG 13 every 12 Center tablet (twelve) hours as needed for Nausea . ferrous 2020-2020- No 325mg Q.5D Take [address] sulfate 325 -18 03-18 mg by [facility] - (65 FE) MG 15:49: 00:00 mouth 2 Med ical tablet 13 :00 (two) Center times daily. warfarin 2020- No 3mg QD Take [address] (COUMADIN) 18 -18 by mouth Luke s - 3 MG tablet 15:49: 00:00 daily 3MG Medical 13 :00 on Wednesday, Center Wednesday, and Wednesday. . ondansetron 2020- No 4mg Take [address] (ZOFRAN) 4 -18 -18 by mouth 2 Elena kes - MG tablet 15:49: 00:00 (two) Medica l 13 :00 times Center daily as needed for Nausea. ergocalcife 2020- No 86132G Q7D Take [facility] rol -18 -18 50,000 [facility] - (VITAMIN 15:49: 00:00 Units by Medi stephani D2) 1,250 13 :00 mouth once Cent er mcg (50,000 a week . unit) capsule ondansetron 2020- No 4mg Take [address] (ZOFRAN-ODT 18 18 by mouth Jason es - ) 4 MG 15:49: 00:00 every 8 Medical disintegrat 13 :00 (eight) Cente r ing tablet hours as needed for Nausea. furosemide Yes Cirrhosis 20mg Q.5D Take [address] (LASIX) 20 3-18 of liver tablet (20 [facility] - MG tablet 00:00: with mg total) Med ical 00 ascites, by mouth 2 Cente r unspecified (two) hepatic times cirrhosis daily. type (HCC) spironolact 2020-0 2021- Yes Cirrhosis 50mg QD Take [address] one 3-18 -18 of liver tablet (50 Luke s - (ALDACTONE) 00:00: 23:59 with mg total) Medical 50 MG 00 :00 ascites, by mouth Center tablet unspecified daily. hepatic cirrhosis type (HCC) ursodioL 2021- Yes Cirrhosis 500mg Q.5D Take [address] (ACTIGALL) 3-18 -18 of liver tablet Elena kes - 500 MG 00:00: 23:59 with (500 mg Medical tablet 00 :00 ascites, total) by Cent er unspecified mouth 2 hepatic (two) cirrhosis times type (HCC) daily. Eliquis 2.5 Yes 2.5mg Q.5D Take 2.[address] MG tablet 3-12 mg by [facility]ukes - 00:00: mouth 2 Medical 00 (two) Center times daily. spironolact 2020- No Cirrhosis 50mg QD Take [address] [facility] one 3-08 -18 of liver tablet (50 Luke s - (ALDACTONE) 00:00: 00:00 with mg total) Medical 50 MG 00 :00 ascites, by mouth Center tablet unspecified daily. hepatic cirrhosis type (HCC) furosemide 2019-10- No TAKE [address] (LASIX) 20 -18 -18 TABLET BY Jason es - MG tablet 00:00: 00:00 MOUTH Medica l 00 :00 TWICE A Center DAY rifAXIMin 2019-10 Yes Hepatic 550mg Q.5D Take [address] (Xifaxan) 1-03 encephalopa tablet L ukes - 550 mg Tab 00:00: thy (HCC) (550 mg Medical 00 total) by Center mouth 2 (two) times daily. XIFAXAN 2019-10 Yes [facility] (RIFAXIMIN) 0-22 Communi 550 MG TABS 00:00: ty 00 Health FERROUS 2019-10 Yes [facility] SULFATE 0-22 Communi (FERROUS 00:00: ty SULFATE 00 Health TABS) TABS (CARVEDILOL 2019-10 Yes [facility] ) 6.25 MG 0-22 Communi TABS 00:00: ty 00 Health (URSODIOL) 2019-10 Yes [facility] 500 MG TABS 0-22 Communi 00:00: ty 00 Health (OMEPRAZOLE 2019-10 Yes [facility] ) 40 MG 0-22 Communi CPDR 00:00: ty 00 Health (ATORVASTAT 2019-10 Yes [facility] IN CALCIUM) 0-22 Communi 40 MG TABS 00:00: ty 00 Health (FUROSEMIDE 2019-10 Yes [facility] ) 20 MG 0-22 Communi TABS 00:00: ty 00 Health (SPIRONOLAC 2019-10 Yes [facility] TONE) 50 MG 0-22 Communi TABS 00:00: ty 00 Health (LEVOTHYROX 2019-10 Yes [facility] INE SODIUM) 0-22 Communi 125 MCG 00:00: ty TABS 00 Health furosemide 2020- No 20mg Q.5D Take [address] (LASIX) 20 8-25 11-18 tablet (20 Elena kes - MG tablet 00:00: 00:00 mg total) Me dical 00 :00 by mouth 2 Center (two) times daily. ELIQUIS Yes [facility] (APIXABAN 6-09 Communi TABS) TABS 00:00: ty 00 Health sucralfate 2019- No 1g Q.5D Take [address] (CARAFATE) 5-26 05-26 by mouth 2 Elena kes - 1 gram 10:25: 00:00 (two) Medical tablet 52 :00 times Center daily . nystatin-tr 2019- No Apply [facility] iamcinolone 5-26 05-26 topically Elena kes - (MYCOLOG 10:24: 00:00 2 (two) Medic al II) 37 :00 times Center 100,000-0.1 daily as unit/g-% needed. cream ascorbic 2019- No 500mg QD Take [address] acid, 5-26 05-26 mg by [facility] - vitamin C, 10:22: 00:00 mouth Medic al (ASCORBIC 33 :00 daily. Center ACID WITH MARY HIPS) 500 MG tablet ursodiol 2019- No 500mg Q.5D Take [address] (ACTIGALL) 4-27 04-27 mg by [facility] - 500 MG 09:58: 00:00 mouth 2 Medical tablet 50 :00 (two) Center times daily. ursodioL 2020- No 500mg Q.5D Take 1 [facility] (ACTIGALL) 4-27 03-18 tablet [facility] - 500 MG 00:00: 00:00 (500 mg Medical tablet 00 :00 total) by Center mouth 2 (two) times daily. rifAXIMin 2019- No Hepatic 550mg Q.5D Take [address] (XIFAXAN) 2 1103 encephalopa tablet [facility] - 550 mg Tab 00:00: 00:00 thy (HCC) (550 mg Medical 00 :00 total) by Center mouth 2 (two) times daily. Acetaminoph Acetaminoph 2019- Yes Every [address] [facility] en With en With 1-27 Hours for Luke s - Codeine Codeine 20:11: Pain Patient (Tylenol (Tylenol 00 s With With Medical Codeine #3 Codeine #[address] Tablet) 1 Tablet) 1 Each TABLET Each TABLET furosemide 2019- No Cirrhosis 20mg Q.5D Take [address] (LASIX) 20 11-01 08-19 of liver tablet (20 [facility]ukes - MG tablet 00:00: 23:59 with mg total) Me dical 00 :00 ascites, by mouth 2 Cente r unspecified (two) hepatic times cirrhosis daily for type (HCC) 210 days. spironolact 2018-10- No 50mg QD Take [address] [facility] one 1-05 03-08 tablet (50 [facility] - (ALDACTONE) 00:00: 00:00 mg total) Medical 50 MG 00 :00 by mouth Center tablet daily. pantoprazol 2019- No 40mg QD Take [address] [facility] e 8-17 05-26 tablet (40 [facility] - (PROTONIX) 00:00: 00:00 mg total) M edical 40 MG 00 :00 by mouth Center tablet daily. warfarin 2020- No 4mg QD Take [address] (COUMADIN) 7 03-18 tablet (4 Jason es - 4 MG tablet 00:00: 00:00 mg total) Medical 00 :00 by mouth Center daily Alternate with 3mg. Cephalexin Cephalexin 2018- No [address] [address] Monohydrate Monohydrate 6-05 06-05 Hours [facility] - (Keflex) (Keflex) 16:18: 00:00 Ev ent 500 Mg 500 Mg 00 :00 s CAPSULE CAPSULE [facility] TOJACQUELINEO 2020- No INJECT 35 [facility] SOLOSTAR 5-13 03-18 UNITS [facility] - U-300 00:00: 00:00 SUBCUTANEO Medic al INSULIN 300 00 :00 USLY TWICE Ce nter unit/mL DAILY (1.5 mL) InPn syringe Propranolol Propranolol 2017-10- No [address] [facility] Hcl Hcl 0-04 06-05 Daily [facility] - 17:56: 00:00 Patient 00 :00 [facility] Tramadol Tramadol 2017-10- No [address] Hcl Hcl 0-04 06-05 Hours as [facility] - (Ultram) 50 (Ultram) 50 17:56: 00:00 needed for Patient Mg TABLET Mg TABLET 00 :00 Pain [facility] Carvedilol Carvedilol 2018- No 12.[address] [facility] 06-05 Day [facility] - 00:00 Patient :00 [facility] Cholestyram Cholestyram 2019- No [address] ine (With ine (With 03-15 Luke s - Sugar) Sugar) 00:00 Patient (Questran (Questran :00 s Packet) 4 Packet) 4 Medic al Gm PACKET Gm PACKET Cente r Exenatide Exenatide 2018- No Twice A [facility] (Byetta) 5 (Byetta) 5 06-05 Day Elena kes - Mcg/0.02 Ml Mcg/0.02 Ml 00:00 Patient PEN.INJCTR PEN.INJCTR :00 [facility] Hyoscyamine Hyoscyamine 2018- No Four Times [facility] Sulfate Sulfate 06-05 Daily [facility] - (Levsin) (Levsin) 00:00 Patien t 0.125 Mg 0.125 Mg :00 s TABLET TABLET [facility] Levothyroxi Levothyroxi 2019- No [address] [facility] ne Sodium ne Sodium 06-05 6:30AM Elena kes - (Synthroid) (Synthroid) 00:00 Patient 125 Mcg TAB 125 Mcg TAB :00 [facility] Lovenox Lovenox 2018- No 80 Twice A [facility]. 06-05 Day [facility] - 00:00 Patient :00 [facility] Meclizine Meclizine 2018- No 12.[address] [facility] Hcl Hcl 06-05 [facility] - 00:00 Patient :00 [facility] Ondansetron Ondansetron 2018- No [address] [facility] (Zofran (Zofran 03-15 [facility]ukes - Odt) 4 Mg Odt) 4 Mg 00:00 Ev ent TAB.RAPDIS TAB.RAPDIS :00 [facility] Pantoprazol Pantoprazol 2018- No [address] [facility] [facility] e Sodium e Sodium 03-15 [facility] - (Protonix) (Protonix) 00:00 Pa tient 40 Mg 40 Mg :00 s TABLET. TABLET. Medic [facility] Promethazin Promethazin 2018- No 12.[address] [facility] e Hcl e Hcl 03-15 [facility] - 00:00 Patient :00 [facility] Rosuvastati Rosuvastati 2018- No [address] n Calcium n Calcium 03-15 Luke s - (Crestor) (Crestor) 00:00 Ev ent 20 Mg 20 Mg :00 s TABLET TABLET [facility] Sertraline Sertraline 2018- No [address] Hcl Hcl 03-15 [facility] - 00:00 Patient :00 [facility] Sucralfate Sucralfate 2018- No [address] [facility] 03-15 Day [facility] - 00:00 Patient :00 [facility] Warfarin Warfarin 2018- No 4 Daily [facility] Sodium Sodium 03-15 [facility] - 00:00 Patient :00 [facility] Duloxetine Duloxetine 2017- No [address] Hcl Hcl 05-05 [facility] - (Cymbalta) (Cymbalta) 00:00 Pa tient 60 Mg 60 Mg :[address] [facility] Folic Acid Folic Acid 2017- No [facility] 05-05 [facility] - 00:00 Patient :00 [facility] Glimepiride Glimepiride 2017- No [address] 05-05 [facility] - 00:00 Patient :00 [facility] Lisinopril Lisinopril 2017- No [address] 05-05 [facility] - 00:00 Patient :00 [facility] Pravastatin Pravastatin 2017- No [address] Sodium Sodium 05-05 [facility] - 00:00 Patient :00 [facility] Thyroid Thyroid 2017- No [address] (Shirley (Shirley 05-05 [facility] - Thyroid) 90 Thyroid) 90 00:00 Patient Mg TABLET Mg TABLET :00 [facility] Enoxaparin Enoxaparin 2012- No [address] Sodium Sodium 11-15 [facility] - (Lovenox) (Lovenox) 00:00 Ev ent 120 Mg/0.8 120 Mg/0.8 :00 s Ml Ml Medical DISP.SYRIN DISP.SYRIN [address] Cavedilol Cavedilol [facility] St. 03-14 [facility] - 00:00 Patient :00 [facility] Center Vital Signs Vital Name Observation Time Observation Value Comments Source Systolic blood 2020-12-26 15:20:00 115 mm[Hg] [facility] Diastolic blood 2020-12-26 15:20:00 75 mm[Hg] [facility] Heart rate 2020-12-26 15:20:00 96 /min [facility] Body temperature 2020-12-26 15:20:00 37 Joy [facility] Respiratory rate 2020-12-26 15:20:00 16 /min [facility] Body height 2020-12-26 15:20:00 175.3 cm [facility] Body weight 2020-12-26 15:20:00 114.034 kg [facility] BMI 2020-12-26 15:20:00 37.13 kg/m2 [facility] Oxygen saturation in 2020-12-26 15:20:00 96 /min [facility] - Arterial blood by Medical Ce nter Pulse oximetry pulse rate 2020-03-19 08:16:20 81 /min [facility] blood pressure, 2020-03-19 08:16:20 77 mm[Hg] [facility] diastolic [facility] blood pressure, 2020-03-19 08:16:20 139 mm[Hg] [facility] systolic Health Weight 2020-03-17 22:55:00 263 [lb_av] [facility] BMI (Body Mass 2020-03-17 22:55:00 42.4 kg/m2 [facility] - Index) Patients [facility] Body Temperature 2019-11-06 20:06:00 98.6 [degF] [facility] Procedures Procedure Date / Time Performed Performing Clinician Sour e BASIC METABOLIC PANEL 2020-12-26 15:05:00 Ken Mann [address] HEPATIC FUNCTION PANEL 2020-12-26 15:05:00 Ken Mann [facility] CBC W/PLT COUNT & AUTO 2020-12-26 15:05:00 Ken Mann [facility] PROTHROMBIN TIME/INR 2020-12-26 15:05:00 Ken Mann [facility] ALPHA FETOPROTEIN (AFP), 2020-12-26 15:05:00 Ken Mann [facility] TUMOR [facility] BASIC METABOLIC PANEL 2020-06-05 12:53:00 Rene Huitron [facility] [address] HEPATIC FUNCTION PANEL 2020-06-05 12:53:00 Rene Huitron [facility] CBC W/PLT COUNT & AUTO 2020-06-05 12:53:[address] [facility] PROTHROMBIN TIME/INR 2020-06-05 12:53:00 Rene Huitron [facility] ALPHA FETOPROTEIN (AFP), 2020-06-05 12:53:00 Rene Huitron [facility] RHYTHM STRIP - SCAN 2020-03-11 08:20:42 Carl Dela Cruz [facility] POCT-GLUCOSE METER 2020-03-07 12:03:00 Tariq Valdez [facility] FL FLUORO NON-SPECIFIC 2020-03-07 11:45:00 Tariq Valdez [facility] UP TO 1 HOUR [facility] ARTHRODESIS,FINGER 2020-03-07 09:50:00 Tariq Valdez [facility] POCT-GLUCOSE METER 2020-03-07 09:36:00 Tariq Valdez [facility] PT/APTT 2020-03-07 09:28:00 Ehsan Ugarte [facility] PROTHROMBIN TIME/INR 2020-02-02 12:34:00 Rene Huitron [facility] CBC W/PLT COUNT & AUTO 2020-02-02 12:34:[address] [facility] HEPATIC FUNCTION PANEL 2020-02-02 12:34:00 Rene Huitron [facility] BASIC METABOLIC PANEL 2020-02-02 12:34:00 Rene Huitron [facility] I [facility] - (7) [facility] APPLICATION OF FINGER 2019-09-11 00:00:00 [facility] SPLINT Patients [facility] Plan of Care Planned Activity Planned Date Details Comments Source Future Scheduled Test 2029-06-22 [facility] malignant neoplasm Medical C enter of colon (procedure) [code = 993123014] Future Scheduled Test 2023-10-01 Lipid panel [facility] - 00:00:00 (procedure) [code = [facility] 91061082] Future Scheduled Test 2021-10-01 Urine screening for [facility] - 00:00:00 protein (procedure) [facility] [code = 496329003] Future Scheduled Test 2020-10-11 DEPRESSION SCREENING [facility] - 00:00:00 (12+) [code = [facility] DEPRESSION SCREENING (12+)] Future Scheduled Test 2019-09-30 SHINGLES VACCINES (3 [facility] - 00:00:00 of 3) [code = [facility] SHINGLES VACCINES (3 of 3)] Future Scheduled Test 2019-07-13 Hemoglobin A1c [facility] - 00:00:00 measurement [facility] (procedure) [code = 47876049] Future Scheduled Test 1985-01-13 Screening [facility] - 00:[facility]:00 malignant neoplasm Medical C enter of cervix (procedure) [code = 510161231] Future Scheduled Test 1983-01-13 DTAP/TDAP/TD [facility] - 00:00:00 VACCINES (1 - Tdap) [facility] [code = DTAP/TDAP/TD VACCINES (1 - Tdap)] Future Scheduled Test 1974-01-13 DIABETIC EYE EXAM [facility] - 00:[facility]00 [code = DIABETIC EYE [facility] EXAM] Future Scheduled Test 1964 [facility] - [facility]:00 malignant neoplasm Medical C enter of breast (procedure) [code = 366441651] Future Appointment 2021-01-16 Ken Mann MD, [address] [facility] - 12:[facility]:[address], [place] [address] Future Appointment 2021-01-16 Ken Mann MD, [address] [facility] - 12:[facility]:[address], [place] [address] Instructions Chipped or Broken [facility] Encounters Start End Encounter Admission Attending Care Care Encounter Source Date/Time Date/Time Type Type Clinicians Facility Department ID 2020-12-19 2020-12-19 Office Desiree BCM 1.2.840.114 [id number] 13:04:37 17:24:59 Visit , Lauren AMBULATOR 350.1.13.21 Y 0.2.7.2.686 [id number] 2020-10-01 2020-10-01 Office Shaniqua BCM 1.2.840.114 [id number] 09:15:54 10:33:06 Visit Manasa AMBULATOR 350.1.13.21 Y 0.2.7.2.686 [id number] 600 2020-10-01 2020-10-01 Office Yolanda BCM 1.2.840.114 [id number] 07:43:09 08:08:09 Visit Desiree AMBULATOR 350.1.13.21 Y 0.2.7.2.686 [id number] 2020-09-26 2020-09-26 Office Sylvia BCM 1.2.840.114 [id number] 12:47:25 13:56:42 Visit Rivera AMBULATOR 350.1.13.21 Y 0.2.7.2.686 [id number] 600 2020-09-23 2020-09-23 Office Desiree BCM 1.2.840.114 79 [id number] 13:22:11 16:38:42 Visit , Lauren AMBULATOR 350.1.13.21 Y 0.2.7.2.686 [id number] 310 2020-08-28 2020-08-28 Office Desiree BCM 1.2.840.114 78 [id number] 11:27:42 16:43:15 Visit , Lauren AMBULATOR 350.1.13.21 Y 0.2.7.2.686 [id number] 2020-08-28 2020-08-28 Office BRIELLE Valdez 1.2.840.114 [id number] 14:24:08 15:49:29 Visit Tariq Manriquez AMBULATOR 350.1.13.21 Y 0.2.7.2.686 [id number] 600 2020-08-01 2020-08-01 Office Elvin Dubois [facility] Encounter/ Legacy 00:00:00 00:00:00 Visit Federica Jane [id number] 7325 Communi [id number] [facility] 2020-08-01 2020-08-01 Office Elvin Dubois [facility] Encounter/ Legacy 00:00:00 00:00:00 Visit Federica Jane [id number] Communi [id number] [facility] 2020-07-02 2020-07-02 [facility] Legacy 00:00:00 00:00:00 Visit Antonia [id number] Co mmuni [id number] [facility] 2020-06-26 2020-06-26 Office Desiree HANNAH 1.2.840.114 [id number] 13:37:14 16:51:47 Visit , Lauren AMBULATOR 350.1.13.21 Y 0.2.7.2.686 [id number] 2020-06-24 2020-06-24 Office BRIELLE Jordan 1.2.840.114 [id number] 16:13:58 17:38:11 Visit Laurie Mayorga AMBULATOR 350.1.13.21 Y 0.2.7.2.686 [id number] 2020-06-13 2020-06-13 Orders Doctor REJI 1.2.840.114 [id number] 00:00:00 00:00:00 Only Unassigned, RALF 350.1.13.10 [facility] 4.2.7.2.686 [id number] 2020-06-12 2020-06-12 Office BRIELLE Valdez 1.2.840.114 [id number] 13:38:47 15:03:57 Visit Tariq Manriquez AMBULATOR 350.1.13.21 Y 0.2.7.2.686 [id number] 600 2020-05-28 2020-05-28 Transition Matthew Parikh 1.2.840.114 [id number] 00:00:00 00:00:00 of Care Pauly Momin 350.1.13.10 [place] 4.2.7.2.686 [id number] 2020-05-22 2020-05-26 [facility] Hugh Eric [facility] 1.2.840.11 [id number] 22:24:00 17:13:00 Encounter Shar [facility] Zafar 350.1.13.10 Jose Ricketts 4.2.7.2.686 WinsomeHugh min [place] [id number] [address]) 2020-04-22 2020-04-22 Office OLEKSANDR Mendosa [facility] Encounter / Legacy 00:00:00 00:00:00 Visit Krys [id number] [facility] kati [id number] ty Health 2020-03-19 2020-03-19 Office Elvin Dubois [facility] Encounter/ Legacy 00:00:00 00:00:00 Visit Federica Jane [id number] Communi 444444 [facility] 2020-03-19 2020-03-19 Office Elvin Dubois [facility] Encounter/ Legacy 00:00:00 00:00:00 Visit Federica Jane [id number] 6716 Communi 957236 ty Health 2020-03-19 2020-03-19 Office Elvin Dubois [facility] Encounter/ Legacy 00:00:00 00:00:00 Visit Federica Jane [id number] Communi 102730 ty Health 2020-03-19 2020-03-19 Office [address]ERRY Encoun ter/ Legacy 00:00:00 00:00:00 Visit Elvin marti [id number] Communi [id number] Health 2020-03-17 2020-03-[address] [facility] [id number] [address] [place] [address]. 22:19:00 23:32:00 Emergency Patients 05 Jason es - Room [facility] 2020-03-13 2020-03-13 Office ValdezBRIELLE 1.2.840.114 [id number] 13:38:35 14:39:07 Visit Tariq Manriquez AMBULATOR 350.1.13.21 Y 0.2.7.2.686 [id number] 600 2020-02-28 2020-02-[address] [facility] 1.2.840.114 [id number] 08:51:29 09:44:15 Visit Fariba 350.1.13.21 0.2.7.2.686 [id number] 530 2020-02-21 2020-02-21 Office BRIELLE Valdez 1.2.840.114 [id number] 12:58:22 15:02:17 Visit Tariq Manriquez AMBULATOR 350.1.13.21 Y 0.2.7.2.686 [id number] 600 2020-02-21 2020-02-[address] [facility] 1.2.840.114 [id number] 10:50:49 11:50:49 Visit Sudheer Fariba 350.1.13.21 Latoya 0.2.7.2.686 [id number] 2020-02-13 2020-02-13 Office Samina BELMarya 1.2.840.114 75 [id number] 11:39:39 16:54:27 Visit Cyndi carias AMBULATOR 350.1.13.21 Tse Y 0.2.7.2.686 [id number] 2019-11-06 2019-11-[address] [facility] [id number] [facility] 17:13:00 20:25:00 Emergency TRAY Patients 51 [facility] es - Room Med Center [facility] 2019-11-01 2019-11-01 Outpatient [facility] MED [id number] 07:45:00 07:45:00 [facility] 2019-09-11 2019-09-11 Departed [address] [facility] A[id number] [facility] 17:07:00 17:55:00 Emergency Patients 29 Jason es - Room [facility] 2019-04-09 2019-04-10 Departed 1 [facility] [id number] [address] 23:57:00 02:08:00 Emergency NASRIN 88 [facility] 2019-03-15 2019-03-15 Departed [facility] [id number] [address] 14:32:00 19:04:00 Emergency 01 [facility] 2018-09-27 2018-09-27 Departed 1 [facility] [id number] 19:25:00 23:02:00 Emergency LILA 03 [facility] 2018-07-14 2018-07-14 Departed 1 [facility] [id number] [address] 13:09:00 19:04:00 Emergency AMBICA 79 [facility] 2018-05-05 2018-05-05 Registered [facility] [id number] 05:03:00 05:03:00 Surgical 83 [facility] 2018-03-27 2018-03-27 Departed 1 [facility] [id number] [address] 18:28:00 22:32:00 Emergency DEWAYNE 23 [facility] Results Test Description Test Time Test Comments Results Result Comments Source Alpha fetoprotein (AFP), tumor marker 2020-12-26 18:08:00 Test Item Value Reference Range Interpretation Comme nts Alpha-Fetoprotein (test code = 1834-1) 5.6 ng/mL <10.0 JENNIFER (test code = JENNIFER) Residential Sales ID - DB Lab Interpretation (test code = 83827-6) [facility] TUMOR [id number] 18:08:00 Test Item Value Reference Range Interpretation Comments ALPHA-FETOPROTEIN (BEAKER) (test 5.6 ng/mL <10.0 code = 1094) Residential Sales ID - DBBasic Metabolic [id number] 16:31:00 Test Item Value Reference Range Interpretation Comments Sodium (test code = 139 meq/L 381-508 1630-2) Potassium (test code = 4.0 meq/L 3.5-5.1 2823-3) Chloride (test code = 100 meq/L 98-107 2075-0) CO2 (test code = 29 meq/L 22-29 8-9) BUN (test code = 13 mg/dL 7-21 3094-0) Creatinine (test code 0.82 mg/dL 0.57-1.25 = 2160-0) Glucose (test code = 133 mg/dL 70-105 H 2345-7) Calcium (test code = 10.0 mg/dL 8.4-10.2 83557-9) EGFR (test code = 72 mL/min/1.73 sq m [place] [address]-8) NOT ACCURATE CREATININE CLEARANCE IN PREDICTING GLOMERULAR FILTRATION RATE . ESTIMATED GFR I S NOT APPLICABLE FOR DIALYSIS PATIENTS. JENNIFER (test code = JENNIFER) Residential Sales ID - DB Lab Interpretation Abnormal (test code = 22065-9) [facility] function [id number] 16:31:00 Test Item Value Reference Range Interpretation Comments Protein, Total (test 8.9 See_Comment H [Autom ated code = 2885-2) message] The system which generated this result transmit christopher reference range : 6.0 - 8.3 gm/dL . The reference range was not u sed to interpret th is result as normal/abnormal . Albumin (test code = 4.2 g/dL 3.5-5 24096-8) Total Bilirubin (test 1.0 mg/dL 0.2-1.2 code = 1974-2) Bilirubin, Direct 0.4 mg/dL 0.1-0.5 (test code = 1967-7) Alkaline Phosphatase 105 U/L 40-150 (test code = 6768-6) AST (test code = 22 U/L 5-34 1920-8) ALT (test code = 19 U/L 6-55 1742-6) JENNIFER (test code = JENNIFER) Residential Sales ID - DB Lab Interpretation Abnormal (test code = 98618-0) [facility] [id number] 16:31:00 Test Item Value Reference Range Interpretation Comments SODIUM (BEAKER) 139 meq/L 136-145 (test code = 381) POTASSIUM (BEAKER) 4.0 meq/L 3.5-5.1 (test code = 379) CHLORIDE (BEAKER) 100 meq/L 98-107 (test code = 382) CO2 (BEAKER) (test 29 meq/L 22-29 code = 355) BLOOD UREA NITROGEN 13 mg/dL 7-21 (BEAKER) (test code = 354) CREATININE (BEAKER) 0.82 mg/dL 0.57-1.25 (test code = 358) GLUCOSE RANDOM 133 mg/dL 70-105 H (BEAKER) (test code = 652) CALCIUM (BEAKER) 10.0 mg/dL 8.4-10.2 (test code = 697) EGFR (BEAKER) (test 72 mL/min/1.73 ESTIMA CHRISTOPHER GFR IS code = 1092) sq m NOT ACCURATE CREATININE CLEARANCE IN PREDICTING GLOMERULAR FILTRATION RATE . ESTIMATED GFR I S NOT APPLICABLE FOR DIALYSIS PATIEN TS. Residential Sales ID - DBHEPATIC FUNCTION [id number] 16:31:00 Test Item Value Reference Range Interpretation Comments TOTAL PROTEIN (BEAKER) (test code = 8.9 gm/dL 6.0-8.3 H 770) ALBUMIN (BEAKER) (test code = 1145) 4.2 g/dL 3.5-5.0 BILIRUBIN TOTAL (BEAKER) (test code 1.0 mg/dL 0.2-1.2 = 377) BILIRUBIN DIRECT (BEAKER) (test 0.4 mg/dL 0.1-0.5 code = 706) ALKALINE PHOSPHATASE (BEAKER) (test 105 U/L 40-150 code = 346) AST (SGOT) (BEAKER) (test code = 22 U/L 5-34 353) ALT (SGPT) (BEAKER) (test code = 19 U/L 6-55 347) Residential Sales ID - DBPro-time/[id number] 16:19:00 Test Item Value Reference Interpretation Comments Range Protime (test code = 15.2 See_Comment H [Autom ated 6862-2) message] The system which generated this result transmitted reference range : 11.9 - 14.2 seconds. The reference range was not used to interpret this result as normal/abnormal . INR (test code = 1.23 See_Comment [Automated 5391-6) message] The system which generated this result transmitted reference range : <=5.90. The reference range was not used to interpret this result as normal/abnormal . JENNIFER (test code = Effective 03/08/2019: JENNIFER) PT Reference Range ChangeNew: 11.9-14.2 Previous: 11.7-14.7 RECOMMENDED COUMADIN/WARFARIN INR THERAPY RANGESSTANDARD DOSE: 2.0-3.0 Includes: PROPHYLAXIS for venous thrombosis, systemic embolization; TREATMENT for venous thrombosis and/or pulmonary embolus.HIGH RISK: Target INR is 2.5-3.5 for patients wiht mechanical heart valves. Lab Interpretation Abnormal (test code = 01066-1) [facility]/[id number] 16:19:00 Test Item Value Reference Range Interpretation Comments PROTIME (BEAKER) 15.2 seconds 11.9-14.2 H (test code = 759) INR (BEAKER) (test 1.23 See_Comment [Automat ed message] code = 370) The system [employer] generated this result transmitted ref erence range: <=5.90. The reference range was not used to int erpret this result as normal/abnormal . Effective 03/08/2019: PT Reference Range ChangeNew: 11.9-14.2 Previous: 11.7- 14.7RECOMMENDED COUMADIN/WARFARIN INR THERAPY RANGESSTANDARD DOSE: 2.0-3.0 Includes: PROPHYLAXIS for venous thrombosis, systemic embolization; TREATMENT for venous thrombosis and/or pulmonary embolus.HIGH RISK: Target INR is2.5-3.5 for patients wiht mechanical heart valves.CBC with platelet count + automated [id number] 16:11:00 Test Item Value Reference Range Interpretation Comments WBC (test code = 6690-2) 8.4 See_Comment [A utomated message] The system [employer] generated this result transmitted ref erence range: 3.5 - 10 .5 K/L. The refe rence range was not u sed to interpret this result as normal/abnor mal. RBC (test code = 789-8) 5.23 See_Comment H [Au tomated message] The system [employer] generated this result transmitted ref erence range: 3.93 - 5 .22 M/L. The refe rence range was not u sed to interpret this result as normal/abnor mal. MCHC (test code = 786-4) 32.4 See_Comment [A utomated message] The system [employer] generated this result transmitted ref erence range: 32.2 - 3 5.5 GM/DL. The refe rence range was not u sed to interpret this result as normal/abnor mal. Hematocrit (test code = 45.0 % 34.1-44.9 H 4544-3) MCV (test code = 787-2) 86.0 fL 79.4-94.8 MCH (test code = 785-6) 27.9 pg 25.6-32.2 RDW (test code = 788-0) 14.5 % 11.7-14.4 H Platelets (test code = 180 See_Comment [Aut omated message] 777-3) The system [employer] generated this result transmitted ref erence range: 150 - 45 0 K/CU MM. The referen ce range was not u sed to interpret this result as normal/abnor mal. MPV (test code = 11.8 fL 9.4-12.3 41721-3) nRBC (test code = 413) 0 See_Comment [Aut omated message] The system [employer] generated this result transmitted ref erence range: 0 - 0 /1 00 WBC. The refere nce range was not u sed to interpret this result as normal/abnor mal. % Neutros (test code = 71 % 429) % Lymphs (test code = 20 % 430) % Monos (test code = 6 % 431) % Eos (test code = 432) 2 % % Baso (test code = 437) 1 % # Neutros (test code = 5.95 See_Comment [Aut omated message] 670) The system [employer] generated this result transmitted ref erence range: 1.56 - 6 .13 K/L. The refe rence range was not u sed to interpret this result as normal/abnor mal. # Lymphs (test code = 1.68 See_Comment [Auto mated message] 414) The system [employer] generated this result transmitted ref erence range: 1.18 - 3 .74 K/L. The refe rence range was not u sed to interpret this result as normal/abnor mal. # Monos (test code = 0.47 See_Comment H [Autom ated message] 415) The system [employer] generated this result transmitted ref erence range: 0.24 - 0 .36 K/L. The refe rence range was not u sed to interpret this result as normal/abnor mal. # Eos (test code = 416) 0.18 See_Comment [Au tomated message] The system [employer] generated this result transmitted ref erence range: 0.04 - 0 .36 K/L. The refe rence range was not u sed to interpret this result as normal/abnor mal. # Baso (test code = 417) 0.07 See_Comment [A utomated message] The system [employer] generated this result transmitted ref erence range: 0.01 - 0 .08 K/L. The refe rence range was not u sed to interpret this result as normal/abnor mal. Immature 1 % 0-1 Granulocytes-Relative (test code = 2801) Lab Interpretation (test Abnormal code = 34748-6) [facility] W/PLT COUNT & AUTO [id number] 16:11:00 Test Item Value Reference Range Interpretation Comments WHITE BLOOD CELL COUNT (BEAKER) 8.4 K/ L 3.5-10.5 (test code = 775) RED BLOOD CELL COUNT (BEAKER) 5.23 M/ L 3.93-5.22 H (test code = 761) HEMOGLOBIN (BEAKER) (test code = 14.6 GM/DL 11.2-15.7 410) HEMATOCRIT (BEAKER) (test code = 45.0 % 34.1-44.9 H 411) MEAN CORPUSCULAR VOLUME (BEAKER) 86.0 fL 79.4-94.8 (test code = 753) MEAN CORPUSCULAR HEMOGLOBIN 27.9 pg 25.6-32.2 (BEAKER) (test code = 751) MEAN CORPUSCULAR HEMOGLOBIN CONC 32.4 GM/DL 32.2-35.5 (BEAKER) (test code = 752) RED CELL DISTRIBUTION WIDTH 14.5 % 11.7-14.4 H (BEAKER) (test code = 412) PLATELET COUNT (BEAKER) (test 180 K/CU MM 150-450 code = 756) MEAN PLATELET VOLUME (BEAKER) 11.8 fL 9.4-12.3 (test code = 754) NUCLEATED RED BLOOD CELLS 0 /100 WBC 0-0 (BEAKER) (test code = 413) NEUTROPHILS RELATIVE PERCENT 71 % (BEAKER) (test code = 429) LYMPHOCYTES RELATIVE PERCENT 20 % (BEAKER) (test code = 430) MONOCYTES RELATIVE PERCENT 6 % (BEAKER) (test code = 431) EOSINOPHILS RELATIVE PERCENT 2 % (BEAKER) (test code = 432) BASOPHILS RELATIVE PERCENT 1 % (BEAKER) (test code = 437) NEUTROPHILS ABSOLUTE COUNT 5.95 K/ L 1.56-6.13 (BEAKER) (test code = 670) LYMPHOCYTES ABSOLUTE COUNT 1.68 K/ L 1.18-3.74 (BEAKER) (test code = 414) MONOCYTES ABSOLUTE COUNT (BEAKER) 0.47 K/ L 0.24-0.36 H (test code = 415) EOSINOPHILS ABSOLUTE COUNT 0.18 K/ L 0.04-0.36 (BEAKER) (test code = 416) BASOPHILS ABSOLUTE COUNT (BEAKER) 0.07 K/ L 0.01-0.08 (test code = 417) IMMATURE GRANULOCYTES-RELATIVE 1 % 0-1 PERCENT (BEAKER) (test code = 2801) CBC with platelet count + automated [id number] 15:36:00 Test Item Value Reference Range Interpretation Comments WBC (test code = 8.5 See_Comment [Automated ) message] The system which generated this result transmitted reference range : 3.8 - 10.8 Thousand/uL. Th e reference range was not used to interpret this result as normal/abnormal . RBC (test code = 5.17 See_Comment H [Automated 789-8) message] The system which generated this result transmitted reference range : 3.80 - 5.10 Million/uL. The reference range was not used to interpret this result as normal/abnormal . Hemoglobin (test 14.3 g/dL 11.7-15.5 code = ) Hematocrit (test 44.1 % 35-45 code = ) MCV (test code = 85.3 fL 80-684 4522310) MCH (test code = 27.7 pg 27-33 ) MCHC (test code = 32.4 g/dL 32-36 ) RDW (test code = 14.4 % -15 ) Platelets (test code 160 See_Comment [Autom ated = ) message] The system which generated this result transmitted reference range : 140 - 400 Thousand/uL. Th e reference range was not used to interpret this result as normal/abnormal . MPV (test code = 12.4 fL 7.5-12.5 9055808) # Neutros (test code 6282 See_Comment [Autom ated = 20200505) message] The system which generated this result transmitted reference range : 1,500 - 7,800 cells/uL. The reference range was not used to interpret this result as normal/abnormal . # Lymphs (test code 1488 See_Comment [Automa christopher = 731-0) message] The system which generated this result transmitted reference range : 850 - 3,900 cells/uL. The reference range was not used to interpret this result as normal/abnormal . # Monos (test code = 493 See_Comment [Autom ated ) message] The system which generated this result transmitted reference range : 200 - 950 cells/uL. The reference range was not used to interpret this result as normal/abnormal . # Eos (test code = 162 See_Comment [Automat ed 711-2) message] The system which generated this result transmitted reference range : 15 - 500 cells/uL. The reference range was not used to interpret this result as normal/abnormal . # Baso (test code = 77 See_Comment [Automa christopher 704-7) message] The system which generated this result transmitted reference range : 0 - 200 cells/u L. The reference range was not used to interpr et this result as normal/abnormal . % Neutros (test code 73.9 % = ) % Lymphs (test code 17.5 % = 20200502) % Monos (test code = 5.8 % ) % Eos (test code = 1.9 % 20200430) % Baso (test code = 0.9 % 20200501) JENNIFER (test code = FASTING:NOFASTING: JENNIFER) NO RAC (test code = Performing RAC) Organization Information: Site ID: [facility] Name: [facility] Address: [address] [place] [id number] Director: Jez Mccrary Lab Interpretation Abnormal (test code = 17484-8) [facility], FLUORO, NON-SPECIFIC, UP TO 1 [id number] 14:34:00Referring: Shawnee Alvares for exam:->ORIF right ring fingerFINAL REPORT TECHNIQUE: Fluoroscopic images from orthopedic procedure. INDICATION: Surgery. COMPARISON: None. IMPRESSION:Fluoroscopic images from orthopedic procedure, not obtained by the undersigned. Please refer to operative note for more details of the procedure and findings.Fluoroscopy time: 150 secondsNumber of images: Two Signed: Benjy Sanchez Verified Date/Time: 03/07/2020 14:34:58 FL fluoro non-specific up to 1 [id number] 14:34:00Interface, External Ris In - 03/07/2020 2:37 PM CDTFINAL REPORT TECHNIQUE: Fluoroscopic images from orthopedic procedure. INDICATION: Surgery. COMPARISON: None. IMPRESSION:Fluoroscopic images from orthopedic procedure, not obtained by the undersigned. Please refer to operative note for more details of the procedure and findings. Fluoroscopy time: 150 secondsNumber of images: Two Signed: Benjy Sanchez Verified Date/Time: 03/07/2020 14:34:58 [facility] 2020-03-07 12:14:00 Test Item Value Reference Range Interpretation Comments POC-Glucose Meter (test 221 mg/dL 70-110 H : No tified RN/MD: code = 1538) TESTED AT [place] [id number]: Residential Sales/Techni melissa ID = [id number] for Cierra Wagner sanjay Lab Interpretation (test Abnormal code = 37612-8) [facility] [id number] 12:14:00 Test Item Value Reference Range Interpretation Comments POC-GLUCOSE METER 221 mg/dL 70-110 H : Notified RN/MD: TESTED (BEAKER) (test code AT [facility] 7200 NETTE = 1538) [facility] A, [facility] [address]: Residential Sales/Techni melissa ID = [id number] for Antonia Kauffman PT/[id number] 10:10:00 Test Item Value Reference Interpretation Comments Range Protime (test code = <10.0 See_Comment [Autom ated 2202-2) message] The system which generated this result transmitted reference range : 9.8 - 12.0 sec . The reference range was not used to interpret this result as normal/abnormal . INR (test code = 1.0 See_Comment [Automated 1451-6) message] The system which generated this result transmitted reference range : <=5.9 INR . Th e reference range was not used to interpret this result as normal/abnormal . PTT (test code = 25.4 See_Comment L [Automated 09717-0) message] The system which generated this result transmitted reference range : 25.8 - 34.5 sec . The reference range was not used to interpret this result as normal/abnormal . JENNIFER (test code = RECOMMENDED JENNIFER) COUMADIN/WARFARIN INR THERAPY RANGESSTANDARD DOSE: 2.0 - 3.0 Includes: PROPHYLAXIS for venous thrombosis, systemic embolization; TREATMENT for venous thrombosis and/or pulmonary embolus.HIGH RISK: Target INR is 2.5-3.5 for patients with mechanical heart valves. Lab Interpretation Abnormal (test code = 31637-0) [facility][id number] 10:10:00 Test Item Value Reference Range Interpretation Comments PROTIME (BEAKER) (test code = 759) < sec 9.8-12.0 INR (BEAKER) (test code = 370) 1.0 INR <=5.9 PARTIAL THROMBOPLASTIN TIME 25.4 sec 25.8-34.5 L (BEAKER) (test code = 760) RECOMMENDED COUMADIN/WARFARIN INR THERAPY RANGESSTANDARD DOSE: 2.0 - 3.0 Includes: PROPHYLAXIS forvenous thrombosis, systemic embolization; TREATMENT for venous thrombosis and/or pulmonary embolus.HIGH RISK: Target INR is 2.5-3.5 for patients with mechanical heart valves.POCT-GLUCOSE [id number] 09:49:00 Test Item Value Reference Range Interpretation Comments POC-GLUCOSE METER 227 mg/dL 70-110 H : TESTED A T [facility] 7200 (SERGIO) (test code CHRISTINE Ribeiro BLDG A, = 1538) [facility] 7703 0: Residential Sales/Techni melissa ID = [id number] for Willi Vaz U/S, ABDOMINAL, [id number] 16:16:00Referring: DOROTA Alvares- CCirrhosis assess for HCCReason for Exam:->CirrhosisFINAL REPORT TECHNIQUE: Grayscale ultrasound of the abdomen. INDICATION: 54-year- old woman with cirrhosis. COMPARISON: Chest, abdomen, and pelvis CT 05/27/2019; abdomen ultrasound12/07/2018. FINDINGS: MIDLINE VASCULATURE: The visualized inferior vena cava is patent. Portal vein is patent and prominent, measuring 1.4 cm in diameter. The maximum visualized aortic diameter is 2.4 cm. LIVER: The liver is prominent and measures 21.1 cm. The liver is increased in echogenicity with subtle nodular contour. No focal lesions. BILIARY:Gallbladder: Prior cholecystectomy.Common bile duct measures 0.7 cm, within normal limits. No intrahepatic biliary ductal dilatation. PANCREAS: The pancreas is not clearly visualized due to overlying bowel gas. SPLEEN: The spleen is prominent and measures 16.3 cm. PERITONEUM: Trace ascites. KIDNEYS: Both kidneys are normal in size. No hydronephrosis. Nosonographically evident solid mass lesion. IMPRESSION:Fatty cirrhotic liver with portal hypertension and trace ascites. No focal liver lesion. Signed: Cari Cordero Verified Date/Time: 11/11 16:16:10 Reading Location: [address] Radiology Reading Room TITIS B PCR, [id number] 13:54:00 Test Item Value Reference Range Interpretation Comments HBV RESULT COMPONENT HBV DNA not detected HBV DNA not detected (SERGIO) (test code = 2701) This test uses a Real-Time Polymerase Chain Reaction (RT-PCR) methodology and was performed using ANNY AmpliPrep/ANNY TaqMan HBV Test, v2.0 ([employer]Reportable range for this assay is 20 - 170,000,000 IU per mL (1.30 - 8.23 Log IU/mL).HEPATITIS B SURFACE [id number] 22:20:00 Test Item Value Reference Range Interpretation Comments HEPATITIS B SURFACE ANTIBODY 1064.1 mIU/mL <8.0 H (BEAKER) (test code = 647) Residential Sales ID - DBHEPATITIS B SURFACE [id number] 22:18:00 Test Item Value Reference Range Interpretation Comments HEPATITIS B SURFACE ANTIGEN (2) Nonreactive Nonreactive (BEAKER) (test code = 2585) Residential Sales ID - DBALPHA FETOPROTEIN (AFP), TUMOR [id number] 22:18:00 Test Item Value Reference Range Interpretation Comments ALPHA-FETOPROTEIN (BEAKER) (test 5.6 ng/mL <10.0 code = 1094) Residential Sales ID - DBHEPATIC FUNCTION [id number] 15:50:00 Test Item Value Reference Range Interpretation Comments TOTAL PROTEIN (BEAKER) (test code = 8.3 gm/dL 6.0-8.3 770) ALBUMIN (BEAKER) (test code = 1145) 4.0 g/dL 3.5-5.0 BILIRUBIN TOTAL (BEAKER) (test code 1.4 mg/dL 0.2-1.2 H = 377) BILIRUBIN DIRECT (BEAKER) (test 0.7 mg/dL 0.1-0.5 H code = 706) ALKALINE PHOSPHATASE (BEAKER) (test 111 U/L 40-150 code = 346) AST (SGOT) (BEAKER) (test code = 38 U/L 5-34 H 353) ALT (SGPT) (BEAKER) (test code = 36 U/L 6-55 347) Residential Sales ID - BSBASIC METABOLIC [id number] 15:50:00 Test Item Value Reference Range Interpretation Comments SODIUM (BEAKER) 136 meq/L 136-145 (test code = 381) POTASSIUM (BEAKER) 4.1 meq/L 3.5-5.1 (test code = 379) CHLORIDE (BEAKER) 102 meq/L 98-107 (test code = 382) CO2 (BEAKER) (test 26 meq/L 22-29 code = 355) BLOOD UREA NITROGEN 10 mg/dL 7-21 (BEAKER) (test code = 354) CREATININE (BEAKER) 0.76 mg/dL 0.57-1.25 (test code = 358) GLUCOSE RANDOM 341 mg/dL 70-105 H (BEAKER) (test code = 652) CALCIUM (BEAKER) 9.7 mg/dL 8.4-10.2 (test code = 697) EGFR (BEAKER) (test 79 mL/min/1.73 ESTIMA CHRISTOPHER GFR IS code = 1092) sq m NOT ACCURATE CREATININE CLEARANCE IN PREDICTING GLOMERULAR FILTRATION RATE . ESTIMATED GFR I S NOT APPLICABLE FOR DIALYSIS PATIEN TS. Residential Sales ID - BSPROTHROMBIN TIME/[id number] 15:33:00 Test Item Value Reference Range Interpretation Comments PROTIME (BEAKER) (test code = 16.5 seconds 11.9-14.2 H 759) INR (BEAKER) (test code = 370) 1.4 <=5.9 Effective 03/08/2019: PT Reference Range ChangeNew: 11.9-14.2 Previous: 11.7- 14.7RECOMMENDED COUMADIN/WARFARIN INR THERAPY RANGESSTANDARD DOSE: 2.0-3.0 Includes: PROPHYLAXIS for venous thrombosis, systemic embolization; TREATMENT for venous thrombosis and/or pulmonary embolus.HIGH RISK: Target INR is2.5-3.5 for patients wiht mechanical heart valves.CBC W/PLT COUNT & AUTO [id number] 15:04:00 Test Item Value Reference Range Interpretation Comments WHITE BLOOD CELL COUNT (BEAKER) 6.6 K/ L 3.5-10.5 (test code = 775) RED BLOOD CELL COUNT (BEAKER) 5.03 M/ L 3.93-5.22 (test code = 761) HEMOGLOBIN (BEAKER) (test code = 14.1 GM/DL 11.2-15.7 410) HEMATOCRIT (BEAKER) (test code = 42.7 % 34.1-44.9 411) MEAN CORPUSCULAR VOLUME (BEAKER) 84.9 fL 79.4-94.8 (test code = 753) MEAN CORPUSCULAR HEMOGLOBIN 28.0 pg 25.6-32.2 (BEAKER) (test code = 751) MEAN CORPUSCULAR HEMOGLOBIN CONC 33.0 GM/DL 32.2-35.5 (BEAKER) (test code = 752) RED CELL DISTRIBUTION WIDTH 15.3 % 11.7-14.4 H (BEAKER) (test code = 412) PLATELET COUNT (BEAKER) (test 121 K/CU MM 150-450 L code = 756) MEAN PLATELET VOLUME (BEAKER) 12.1 fL 9.4-12.3 (test code = 754) NUCLEATED RED BLOOD CELLS 0 /100 WBC 0-0 (BEAKER) (test code = 413) NEUTROPHILS RELATIVE PERCENT 73 % (BEAKER) (test code = 429) LYMPHOCYTES RELATIVE PERCENT 18 % (BEAKER) (test code = 430) MONOCYTES RELATIVE PERCENT 6 % (BEAKER) (test code = 431) EOSINOPHILS RELATIVE PERCENT 2 % (BEAKER) (test code = 432) BASOPHILS RELATIVE PERCENT 1 % (BEAKER) (test code = 437) NEUTROPHILS ABSOLUTE COUNT 4.83 K/ L 1.56-6.13 (BEAKER) (test code = 670) LYMPHOCYTES ABSOLUTE COUNT 1.21 K/ L 1.18-3.74 (BEAKER) (test code = 414) MONOCYTES ABSOLUTE COUNT (BEAKER) 0.36 K/ L 0.24-0.36 (test code = 415) EOSINOPHILS ABSOLUTE COUNT 0.11 K/ L 0.04-0.36 (BEAKER) (test code = 416) BASOPHILS ABSOLUTE COUNT (BEAKER) 0.05 K/ L 0.01-0.08 (test code = 417) IMMATURE GRANULOCYTES-RELATIVE 0 % 0-1 PERCENT (BEAKER) (test code = 2801) CT ABD/PEL WITH [id number] 20:20:00 [place] [address] Patient Name: MARLYS GARNETT MR #: [id number] : 1965 Age/Sex: 54/F Req #: [id number] Adm Physician: Ordered by: TRAY AVENDAÑO MD Report #: [id number] Location: [facility] Room/Bed: Procedure: [id number] HOPD/CT ABD/PEL WITH CONTRAST-HOPD Exam Date: 11/06/19 Exam Time: 1958 REPORT STATUS: Signed EXAMINATION: CT of the abdomen and pelvis with contrast. TECHNIQUE: Helical CT images of the abdomen and pelvis were performed from the lung bases to the lesser trochanters after the intravenous administration of 100 cc of Isovue 300 and the oral administration of none. Coronal and sagittal reformatted images were obtained.Dose modulation, iterative reconstruction, and/or weight based adjustment of the mA/kV was utilizedto reduce the radiation dose to as low as reasonably achievable. COMPARISON: April 10, 2019 CLINICAL HISTORY:Abdominal pain DISCUSSION: ABDOMEN/PELVIS: LOWER THORAX:Unremarkable. HEPATOBILIARY: Cirrhotic morphology. No intra-or extrahepatic biliary ductal dilation. Cholecystectomy. SPLEEN: No splenomegaly. PANCREAS: No focal masses or ductal dilatation. ADRENALS: No adrenal nodules. KIDNEYS/URETERS: No obstruction. Punctate left renal calculus. PELVIC ORGANS/BLADDER: Bladder is unremarkable. Hysterectomy. PERITONEUM/RETROPERITONEUM: No free air or fluid. LYMPH NODES: No intra-abdominal, retroperitoneal, pelvic or inguinal lymphadenopathy. VESSELS: Vascular calcifications. IVC filter. GI TRACT: No obstruction.Postsurgical change to the bowel. BONES AND SOFT TISSUE: No bony destructive lesions. Priorhernia repair. IMPRESSION: No acute CT finding. Cirrhotic liver. Punctate left renal calculus. Signed by: Dr. Benjy Sanchez M.D. on 11/06/2019 8:23 PM Dictated By: BENJY SANCHEZ MD 22 Transcribed By: GAYATRI on 11/06/192022 COPY TO: TRAY AVENDAÑO RT - [id number] 18:59:00 [place] [address] Patient Name: MARLYS GARNETT MR #: [id number] : 1965 Age/Sex: 54/F Req #: [id number] Adm Physician: Ordered by: ADÁN MARTIN MD Report #: [id number] Location: [facility] Room/Bed: Procedure: [id number] HOPD/FINGER RT - HOPD Exam Date: 09/11/19 Exam Time: 1839 REPORT STATUS: Signed EXAM: FINGER RT - HOPD DATE: 09/11/2019 12:00 AM INDICATION: Injury [id number] COMPARISON: None FINDINGS: 3 views of the right fourth finger show no displaced fracture or dislocation. Bones are moderately demineralized. Degenerative changes are seen at the DIP joints. There is mild deformity of the third, fourth and fifth proximal phalanges that may be related to previous injury. Soft tissues unremarkable. IMPRESSION: No acute bony abnormality. Signed by: Dr. Dewayne Alonzo M.D. on 09/11/2019 7:02 PM Dictated By: DEWAYNE ALONZO MD 01 Transcribed By: GAYATRI on 09/11/191901 COPY TO: ADÁN MARTIN MD- DUP VEIN UNI/[id number] 21:15:00 Name: MARLYS GARNETT [facility] : 1965 Age/S: 54 / F [address] [place] [address] Unit #: [id number] Loc: Ben [id number] Phys: Ananya Ayala PACKAGER Acct: [id number] Dis Date: Status: REG ER PHONE #: [phone] Exam Date: 08/09/20192110 FAX #: [phone] Reason: left leg pain and swelling h/o dvt EXAMS: CPTCODE: [id number] DUP VEIN UNI/LTD 75864 PROCEDURE: UNILATERAL LOWER EXTREMITY VENOUS ULTRASOUND INDICATION: Left leg pain and edema. History of deep venous thrombosis. COMPARISON: March 2012 TECHNIQUE: Sonographic evaluation of the left lower extremity veins was performed using high resolution B-mode, pulse and color Doppler imaging. FINDINGS: The common femoral, femoral,popliteal and visualized calf veins are patent. Normal venous waveforms throughout. The patient was unable to tolerate compression images through the mid and distal femoral vein. These vessels demonstrate complete filling with color Doppler without evidence for thrombus. The saphenofemoral junction is unremarkable. IMPRESSION: No deep venous thrombosis. SL: KEITH at 2114 Reported and signed by: Ata Gama M.D. CC: Ananya Ayala NP Technologist: Naz Qiu RDMS(AB) Trnscb Date/Time: 08/09/2019 (2114) Jing Orig Print D/T: S: 08/09/2019 (2118) Probe: PAGE 1 Signed ReportPROTHROMBIN [id number] 21:11:00 Test Item Value Reference Range Interpretation Comments PROTHROMBIN TIME 15.5 SECONDS 9.3-12.9 H PATIENT (test code = PTP) INTERNATIONAL NORMAL 1.4 0.8-1.2 H TARGET RATIO (test code = INR BY IN DICATION INR) Indication INR1. Prophyl axis of venous thrombos is 2.0 - 3. 0 (orthopedic anastasia chris), Prophylaxis of venous thrombos is (other than hig h-risk surgery), Eileen tment of Deep Vein Thrombosis/Pulm onary Embolism, Preve ntion of systemic emb olism - Tissue heart va lves, Acute Myocardia l Infarction (to prevent systemic embo lism), Valvular heart disease, Atri al Fibrillation, Bileaflet mecha nical valve in aortic position.2. Mec hanical prosthetic valv es (high risk), 2.5 - 3.5 Presence of Lupus Anticoagu lant or Antiphospholi pid Antibodies, Pre vention of systemic e mbolism - Acute Myocard ial Infarction (t o prevent recurre nt infarct). THROMBOPLASTIN TIME [id number] 20:22:00 Test Item Value Reference Range Interpretation Comments THROMBOPLASTIN TIME 36.3 Seconds 25.0-39.5 N Ther apeutic PARTIAL (test code = Range: 50.4 - 88.3 PTT) Seconds Effective 01/24/2019 GASTRIC EMPTYING STUDY, [id number] 17:20:00Referring: JUAN Alvares for Exam:->R11.2FINAL REPORT PROCEDURE: GASTRIC EMPTYING STUDY with Solids CPT CODE: 16316 INDICATION: Intractable vomiting PROTOCOL: 0.54 mCi of Tc-99m sulfur colloid was administered orally in the equivalent of 2 scrambled egg whites. Serial images of the upper abdomen were obtained in the MOROCCAN projection for 90 minutes. Gastric emptying was calculated by the power exponential fit method. FINDINGS: There is progressive emptying of gastric contents into the small bowel. The half-emptying time was calculated to be 63 minutes. Gastroesophageal reflux was not noted. IMPRESSION: 1. Normal gastric emptying of a solid meal.2. No gastroesophageal reflux was seen during the course of this study. Signed: Mikhail Mosqueda MDReport Verified Date/Time: 07/25/2019 17:20:46 Reading Location: [address] Reading Room TISSUE [id number] 15:43:00Surgical Pathology Report Case: [id number] Authorizing Provider: Ken Mann MD Collected: 06/22/2019 1104 Ordering Location: [facility] Endoscopy Received: 06/22/2019 1535 Services Pathologist: Isaiah Melchor MD Specimens: A) - Duodenum, BX B) -Cecum, BX C) - Colon Biopsy, Random A.DUODENUM BIOPSY- NODIAGNOSTIC ALTERATIONB. COLON, CECUM, BIOPSY- NO DIAGNOSTIC ALTERATION- MINUTE MATURE ADIPOSE TISSUE SEEN (SEE COMMENT)C. COLON, RANDOM BIOPSY- NO DIAGNOSTIC ALTERATION- NO EVIDENCE OF MICROSCOPIC COLITIS Signing Pathologist Direct Phone Line: [phone] signed by Isaiah Melchor MD on 06/24/2019 at 3:43 PMB. A very minute area of adipose tissue is seen in deep laminapropria/submucosa. Although non-specific, it may be part of the lipoma noted endoscopically. [address] X 3Cirrhosis of liver without ascites and screening for colon cancer A. Duodenum biopsy. B. Cecum biop sy. C. Random colon biopsy This case is received in three parts. All parts are labeled correctly with the patient's name and date of .Part A. Received in formalin labeled "duodenum" consists of a 0.5 x 0.4 x 0.3 cm newton-brown irregular tissue. The specimen is filtered and is submitted in toto in cassette A.Part B. Received in formalin labeled "cecum" consists of a 0.6 x 0.4 x 0.3 cm newton-brown irregular tissue. The specimen is filtered and is submitted in toto in cassette B.Part C. Received in formalin labeled "random colon biopsy" consists of two irregular fragments of newton-brown tissue aggregating to 0.8 x 0.3 x 0.2 cm. The specimen is filtered and is submitted in toto in cassette C. AH/ew Perf ormed.[facility], Department of Pathology, [address] [place] [address], H[facility]wnEl [facility], Department of Pathology, [address] [place] [address], [facility]zEl [facility], Department of [facility]ology, [address] [place] [address], [id number] TIME/[id number] 10:28:00 Test Item Value Reference Range Interpretation Comments PROTIME (BEAKER) (test code = 14.5 seconds 11.9-14.2 H 759) INR (BEAKER) (test code = 370) 1.2 <=5.9 Effective 03/08/2019: PT Reference Range ChangeNew: 11.9-14.2 Previous: 11.7- 14.7RECOMMENDED COUMADIN/WARFARIN INR THERAPY RANGESSTANDARD DOSE: 2.0-3.0 Includes: PROPHYLAXIS for venous thrombosis, systemic embolization; TREATMENT for venous thrombosis and/or pulmonary embolus.HIGH RISK: Target INR is2.5-3.5 for patients wiht mechanical heart valves.POCT-GLUCOSE [id number] 10:00:00 Test Item Value Reference Range Interpretation Comments POC-GLUCOSE METER 140 mg/dL 70-110 H TESTED AT [place] [address] ([facility]) (test code = SRAVANI Manriquez [facility] 1538) [address] TISSUE [id number] 10:33:00Surgical Pathology Report Case: [id number] Authorizing Provider: Arielle Mcginnis MD Collected: 05/26/2019 1215 Ordering Location: [address] Received: 05/29/2019 0818 Service Pathologist: Hailey Guerra MD Specimen: Polyp, Gastric, Cardia Polyp STOMACH, CARDIA, POLYPECTOMY: - POLYPOID MUCOSA WITH HYPERPLASTIC FEATURES (SEE COMMENT) Signing Pathologist Direct Phone Line: [phone] signed by Hailey Guerra MD on 06/01/2019 at 10:33 AMSections show relatively small superficial fragment of polypoid gastric mucosa with hyperplastic features. In the appropriate clinical/endoscopic setting, this could represent hyperplastic polyp. Clinical/endoscopic correlation is recommended. Additionally, adjacent food particles are seen.25103Jncegmlsa performed: upper endoscopy, polypectomy Preoperative and postoperative diagnoses are the same: GI bleedingPolyp, gastric, cardia polyp The case is received in one part. The specimen received in formalin labeled with the patient's name, accession number and "polyp, gastric" is a 0.6 x 0.5 x 0.4 cm piece oftan-griffiths mucosal-covered tissue. Also included are two fragments of green-yellow organic matter measuring 0.2 x 0.1 x 0.1 cm and 0.3 x 0.2 x 0.2 cm. The specimen is submitted in toto following filtration in cassette A1. SS/ewPerformed.POCT-GLUCOSE [id number] 13:49:00 Test Item Value Reference Range Interpretation Comments POC-GLUCOSE METER 220 mg/dL 70-[address] [facility] 67[address] ([facility]) (test code = SRAVANI Manriquez [facility] 1538) [address] COMPREHENSIVE METABOLIC [id number] 13:07:00 Test Item Value Reference Range Interpretation Comments TOTAL PROTEIN 7.8 gm/dL 6.0-8.3 ([facility]) (test code = 770) ALBUMIN ([facility]) 3.5 g/dL 3.5-5.0 (test code = 1145) ALKALINE PHOSPHATASE 84 U/L 40-150 ([facility]) (test code = 346) BILIRUBIN TOTAL 2.2 mg/dL 0.2-1.2 H (BEAKER) (test code = 377) SODIUM (BEAKER) (test 133 meq/L 136-145 L code = 381) POTASSIUM (BEAKER) 3.5 meq/L 3.5-5.1 (test code = 379) CHLORIDE (BEAKER) 101 meq/L 98-107 (test code = 382) CO2 (BEAKER) (test 25 meq/L 22-29 code = 355) BLOOD UREA NITROGEN 8 mg/dL 7-21 (BEAKER) (test code = 354) CREATININE (BEAKER) 0.69 mg/dL 0.57-1.25 (test code = 358) GLUCOSE RANDOM 228 mg/dL 70-105 H (BEAKER) (test code = 652) CALCIUM (BEAKER) 8.4 mg/dL 8.4-10.2 (test code = 697) AST (SGOT) (BEAKER) 23 U/L 5-34 (test code = 353) ALT (SGPT) (BEAKER) 20 U/L 6-55 (test code = 347) EGFR (BEAKER) (test 88 mL/min/1.73 ESTIMA CHRISTOPHER GFR IS code = 1092) sq m NOT ACCURATE CREATININE CLEARANCE IN PREDICTING GLOMERULAR FILTRATION RATE . ESTIMATED GFR I S NOT APPLICABLE FOR DIALYSIS PATIEN TS. Specimen slightly ictericPROTHROMBIN [id number] 12:52:00 Test Item Value Reference Range Interpretation Comments PROTIME (BEAKER) (test code = 18.6 seconds 11.9-14.2 H 759) INR (BEAKER) (test code = 370) 1.6 <=5.9 Effective 03/08/2019: PT Reference Range ChangeNew: 11.9-14.2 Previous: 11.7- 14.7RECOMMENDED COUMADIN/WARFARIN INR THERAPY RANGESSTANDARD DOSE: 2.0-3.0 Includes: PROPHYLAXIS for venous thrombosis, systemic embolization; TREATMENT for venous thrombosis and/or pulmonary embolus.HIGH RISK: Target INR is2.5-3.5 for patients wiht mechanical heart valves.CBC (HEMOGRAM ONLY)2019-05-27 12:44:00 Test Item Value Reference Range Interpretation Comments WHITE BLOOD CELL COUNT (BEAKER) 7.8 K/ L 3.5-10.5 (test code = 775) RED BLOOD CELL COUNT (BEAKER) 4.55 M/ L 3.93-5.22 (test code = 761) HEMOGLOBIN (BEAKER) (test code = 12.8 GM/DL 11.2-15.7 410) HEMATOCRIT (BEAKER) (test code = 39.2 % 34.1-44.9 411) MEAN CORPUSCULAR VOLUME (BEAKER) 86.2 fL 79.4-94.8 (test code = 753) MEAN CORPUSCULAR HEMOGLOBIN 28.1 pg 25.6-32.2 (BEAKER) (test code = 751) MEAN CORPUSCULAR HEMOGLOBIN CONC 32.7 GM/DL 32.2-35.5 (BEAKER) (test code = 752) RED CELL DISTRIBUTION WIDTH 16.4 % 11.7-14.4 H (BEAKER) (test code = 412) PLATELET COUNT (BEAKER) (test code 98 K/CU MM 150-450 L = 756) MEAN PLATELET VOLUME (BEAKER) 11.5 fL 9.4-12.3 (test code = 754) NUCLEATED RED BLOOD CELLS (BEAKER) 0 /100 WBC 0-0 (test code = 413) HIV-1 ANTIGEN WITH HIV-1/2 [id number] 06:14:00 Test Item Value Reference Range Interpretation Comments HIV-1 ANTIGEN WITH HIV 1\\T\\2 Nonreactive Nonreactive ANTIBODY (2) (BEAKER) (test code = 2586) CT, CHEST, WITHOUT [id number] 04:17:00Referring: Mily Keyes PA-C FINAL REPORT CT, ABDOMEN AND PELVIS, RENAL STONE EVAL, WITHOUT / WITH IV CONTRAST, CT, CHEST, WITHOUT CONTRAST INDICATION: abdominal pain, nephrolithiasis COMPARISON: None TECHNIQUE: Noncontrast axially oriented images were obtained from the thoracic inlet through the pelvis. Postcontrast and delayed phase imaging through the abdomen and pelvis. Coronal and sagittal reformatswere provided. DOSE REDUCTION: Dose modulation, iterative reconstruction, and/or weight-based adjustment of the mA/kV was utilized to reduce the radiation dose to as low as reasonably achievable. FINDINGS: Chest:Lungs and Pleura: Clear lungs. No effusion or pneumothorax.Central airways: Patent.Mediastinum: No adenopathy. Visualized thyroid gland is unremarkable. The esophagus is normal in caliber.Heart and pericardium: Normal. Moderate coronary artery calcifications.Great vessels: Normal calibers.Soft tissues: Surgical clips in the bilateral breasts. Retroareolar soft tissue nodule on the right measuring up to 1.3 cm, is unchanged since 2018.Regional skeletal structures: Mild multilevel degenerative changes of the thoracolumbar spine. No aggressive osseous lesion or acute fracture.. Abdomen and Pe lvis:Liver: No parenchymal abnormality. Mild hepatomegaly with the liver measuring up to 18 cm in the midclavicular line. Nodular contour of the liver.Gallbladder and biliary tree: Postsurgical changesof a cholecystectomy. No intra or extrahepatic biliary ductal dilatation..Pancreas: No acute findings .Spleen: No acute findings.Adrenal Glands: No acute findings.Kidneys and ureters: No hydronephrosis or hydroureter. No contour deforming renal lesions. Punctate nonobstructing left lower pole nephrolithiasis.Bladder and reproductive organs: Postsurgical changes of a hysterectomy. No suspicious adnexalmasses. The bladder is relatively decompressed..Stomach and Duodenum: Metallic clips in the gastric body may represent endoscopy clips, correlate clinically. Duodenum is unremarkable..Small and large intestine: The small and large bowel are normal in caliber with postsurgical changes with sigmoid resection and small bowel resection. Again seen are multiple patulous anastomosis in the right lower quadr ant. Unchanged tethering of multiple small bowel loops to the anterior abdominal wall with surrounding inflammatory stranding and misting mesentery. However there is limited evaluation for bowel pathology given lack of p.o. contrast material. Appendix: Not identified.Major vascular structures: Normal aortic caliber with scattered atherosclerotic calcifications. Infrarenal IVC filter is present..Peritoneum and retroperitoneum: No pneumoperitoneum. No drainable fluid collections. Mesenteric stranding in vascular congestion within the lower abdomen is again seen, mildly increased in the interval. No pathologically enlarged intra-abdominal lymph nodes. Inferior abdominal wall hernia containing a loop of small bowel, unchanged in the interval. Additional Findings: Scarring over the anterior abdominal wall. IMPRESSION: No acute intrathoracic abnormality. Moderate coronary artery calcifications are advanced for age. Retroareolar soft tissue nodule on the right measuring up to 1.3 cm, is unchangedsince 2018.However correlate with mammogram. Hepatomegaly with nodular contour suggesting hepatocellular dysfunction. Postsurgical changes of cholecystectomy sigmoidectomy and hysterectomy. Unchanged tethering of multiple loops of bowel along the anterior abdominal wall. Nonobstructing left lower pole nephrolithiasis. No hydronephrosis or hydroureter. No obstructing urolithiasis. Inferior anterior abdominal wall hernia, likely incisional containing a loop small bowel however no findings to suggest bowel obstruction. Signed: Lucrecia Sanders MDReport Verified Date/Time: 05/27/2019 04:17:26 CT, ABDOMEN AND PELVIS, RENAL STONE EVAL, WITHOUT / WITH IV [id number] 04:17:00 Referring: Shawnee Alvares for exam:->abdominal pain, nephrolithiasisFINAL REPORT CT, ABDOMEN AND PELVIS, RENAL STONE EVAL, WITHOUT / WITH IV CONTRAST, CT, CHEST, WITHOUT CONTRAST INDICATION: abdominal pain, nephrolithiasis COMPARISON: None TECHNIQUE: Noncontrast axially oriented images were obtained from the thoracic inlet through the pelvis. Postcontrast and delayed phase imaging through the abdomen and pelvis. Coronal and sagittal reformatswere provided. DOSE REDUCTION: Dose modulation, iterative reconstruction, and/or weight-based adjustment of the mA/kV was utilized to reduce the radiation dose to as low as reasonably achievable. FINDIN GS: Chest:Lungs and Pleura: Clear lungs. No effusion or pneumothorax.Central airways: Patent.Mediastinum: No adenopathy. Visualized thyroid gland is unremarkable. The esophagus is normal in caliber.Heart and pericardium: Normal. Moderate coronary artery calcifications.Great vessels: Normal calibers.Soft tissues: Surgical clips in the bilateral breasts. Retroareolar soft tissue nodule on the right measuring up to 1.3 cm, is unchanged since 2018.Regional skeletal structures: Mild multilevel degenerative changes of the thoracolumbar spine. No aggressive osseous lesion or acute fracture.. Abdomen and Pe lvis:Liver: No parenchymal abnormality. Mild hepatomegaly with the liver measuring up to 18 cm in the midclavicular line. Nodular contour of the liver.Gallbladder and biliary tree: Postsurgical changesof a cholecystectomy. No intra or extrahepatic biliary ductal dilatation..Pancreas: No acute findings .Spleen: No acute findings.Adrenal Glands: No acute findings.Kidneys and ureters: No hydronephrosis or hydroureter. No contour deforming renal lesions. Punctate nonobstructing left lower pole nephrolithiasis.Bladder and reproductive organs: Postsurgical changes of a hysterectomy. No suspicious adnexalmasses. The bladder is relatively decompressed..Stomach and Duodenum: Metallic clips in the gastric body may represent endoscopy clips, correlate clinically. Duodenum is unremarkable..Small and large intestine: The small and large bowel are normal in caliber with postsurgical changes with sigmoid resection and small bowel resection. Again seen are multiple patulous anastomosis in the right lower quadr ant. Unchanged tethering of multiple small bowel loops to the anterior abdominal wall with surrounding inflammatory stranding and misting mesentery. However there is limited evaluation for bowel pathology given lack of p.o. contrast material. Appendix: Not identified.Major vascular structures: Normal aortic caliber with scattered atherosclerotic calcifications. Infrarenal IVC filter is present..Peritoneum and retroperitoneum: No pneumoperitoneum. No drainable fluid collections. Mesenteric stranding in vascular congestion within the lower abdomen is again seen, mildly increased in the interval. No pathologically enlarged intra-abdominal lymph nodes. Inferior abdominal wall hernia containing a loop of small bowel, unchanged in the interval. Additional Findings: Scarring over the anterior abdominal wall. IMPRESSION: No acute intrathoracic abnormality. Moderate coronary artery calcifications are advanced for age. Retroareolar soft tissue nodule on the right measuring up to 1.3 cm, is unchangedsince 2018.However correlate with mammogram. Hepatomegaly with nodular contour suggesting hepatocellular dysfunction. Postsurgical changes of cholecystectomy sigmoidectomy and hysterectomy. Unchanged tethering of multiple loops of bowel along the anterior abdominal wall. Nonobstructing left lower pole nephrolithiasis. No hydronephrosis or hydroureter. No obstructing urolithiasis. Inferior anterior abdominal wall hernia, likely incisional containing a loop small bowel however no findings to suggest bowel obstruction. Signed: Lucrecia Sanders MDReport Verified Date/Time: 05/27/2019 04:17:26 POCT-GLUCOSE METER 2019-05-26 21:27:00 Test Item Value Reference Range Interpretation Comments POC-GLUCOSE METER 273 mg/dL 70-110 H TESTED AT [place] [address] ([facility]) (test code = [facility] 1538) [id number] URINALYSIS W/ REFLEX URINE [id number] 17:31:00 Test Item Value Reference Range Interpretation Comments COLOR (BEAKER) (test code = 470) Yellow CLARITY (BEAKER) (test code = 469) Clear SPECIFIC GRAVITY UA (BEAKER) (test 1.032 1.001-1.035 code = 468) PH UA (BEAKER) (test code = 467) 6.0 5.0-8.0 PROTEIN UA (BEAKER) (test code = 30 mg/dL Negative A 464) GLUCOSE UA (BEAKER) (test code = Negative Negative 365) KETONES UA (BEAKER) (test code = Negative Negative 371) BILIRUBIN UA (BEAKER) (test code = Negative Negative 462) BLOOD UA (BEAKER) (test code = 461) Negative Negative NITRITE UA (BEAKER) (test code = Negative Negative 465) LEUKOCYTE ESTERASE UA (BEAKER) Negative Negative (test code = 466) UROBILINOGEN UA (BEAKER) (test code 4.0 mg/dL 0.2-1.0 H = 463) RBC UA (BEAKER) (test code = 519) 0 /HPF WBC UA (BEAKER) (test code = 520) 1 /HPF BACTERIA (BEAKER) (test code = 517) Rare MUCUS (BEAKER) (test code = 1574) Rare SQUAMOUS EPITHELIAL (BEAKER) (test < /HPF code = 516) SOURCE(BEAKER) (test code = 2795) POCT-GLUCOSE [id number] 17:11:00 Test Item Value Reference Range Interpretation Comments POC-GLUCOSE METER 199 mg/dL 70-110 H TESTED AT [place] [address] (BEAKER) (test code = [facility] 1538) [id number] POCT-GLUCOSE [id number] 12:46:00 Test Item Value Reference Range Interpretation Comments POC-GLUCOSE METER 224 mg/dL 70-110 H TESTED AT [place] [id number] (BEAKER) (test code = [facility] 1538) [address] POCT-GLUCOSE [id number] 12:00:00 Test Item Value Reference Range Interpretation Comments POC-GLUCOSE METER 226 mg/dL 70-110 H TESTED AT [place] [address] (BEAKER) (test code = [facility] 1538) [id number] HEPATIC FUNCTION [id number] 08:20:00 Test Item Value Reference Range Interpretation Comments TOTAL PROTEIN (BEAKER) (test code = 7.9 gm/dL 6.0-8.3 770) ALBUMIN (BEAKER) (test code = 1145) 3.6 g/dL 3.5-5.0 BILIRUBIN TOTAL (BEAKER) (test code 1.3 mg/dL 0.2-1.2 H = 377) BILIRUBIN DIRECT (BEAKER) (test 0.6 mg/dL 0.1-0.5 H code = 706) ALKALINE PHOSPHATASE (BEAKER) (test 85 U/L 40-150 code = 346) AST (SGOT) (BEAKER) (test code = 21 U/L 5-34 353) ALT (SGPT) (BEAKER) (test code = 18 U/L 6-55 347) BASIC METABOLIC [id number] 08:20:00 Test Item Value Reference Range Interpretation Comments SODIUM (BEAKER) 134 meq/L 136-145 L (test code = 381) POTASSIUM (BEAKER) 4.0 meq/L 3.5-5.1 (test code = 379) CHLORIDE (BEAKER) 99 meq/L 98-107 (test code = 382) CO2 (BEAKER) (test 25 meq/L 22-29 code = 355) BLOOD UREA NITROGEN 14 mg/dL 7-21 (BEAKER) (test code = 354) CREATININE (BEAKER) 0.74 mg/dL 0.57-1.25 (test code = 358) GLUCOSE RANDOM 214 mg/dL 70-105 H (BEAKER) (test code = 652) CALCIUM (BEAKER) 8.8 mg/dL 8.4-10.2 (test code = 697) EGFR (BEAKER) (test 81 mL/min/1.73 ESTIMA CHRISTOPHER GFR IS code = 1092) sq m NOT ACCURATE CREATININE CLEARANCE IN PREDICTING GLOMERULAR FILTRATION RATE . ESTIMATED GFR I S NOT APPLICABLE FOR DIALYSIS PATIEN TS. POCT-GLUCOSE [id number] 07:31:00 Test Item Value Reference Range Interpretation Comments POC-GLUCOSE METER 199 mg/dL 70-[address] [facility] 6720 (BEAKER) (test code = [facility] 1538) [address] CBC W/PLT COUNT & AUTO [id number] 07:02:00 Test Item Value Reference Range Interpretation Comments WHITE BLOOD CELL COUNT (BEAKER) 11.3 K/ L 3.5-10.5 H (test code = 775) RED BLOOD CELL COUNT (BEAKER) 4.64 M/ L 3.93-5.22 (test code = 761) HEMOGLOBIN (BEAKER) (test code = 12.9 GM/DL 11.2-15.7 410) HEMATOCRIT (BEAKER) (test code = 40.5 % 34.1-44.9 411) MEAN CORPUSCULAR VOLUME (BEAKER) 87.3 fL 79.4-94.8 (test code = 753) MEAN CORPUSCULAR HEMOGLOBIN 27.8 pg 25.6-32.2 (BEAKER) (test code = 751) MEAN CORPUSCULAR HEMOGLOBIN CONC 31.9 GM/DL 32.2-35.5 L (BEAKER) (test code = 752) RED CELL DISTRIBUTION WIDTH 15.9 % 11.7-14.4 H (BEAKER) (test code = 412) PLATELET COUNT (BEAKER) (test 157 K/CU MM 150-450 code = 756) MEAN PLATELET VOLUME (BEAKER) 11.5 fL 9.4-12.3 (test code = 754) NUCLEATED RED BLOOD CELLS 0 /100 WBC 0-0 (BEAKER) (test code = 413) NEUTROPHILS RELATIVE PERCENT 78 % (BEAKER) (test code = 429) LYMPHOCYTES RELATIVE PERCENT 14 % (BEAKER) (test code = 430) MONOCYTES RELATIVE PERCENT 5 % (BEAKER) (test code = 431) EOSINOPHILS RELATIVE PERCENT 2 % (BEAKER) (test code = 432) BASOPHILS RELATIVE PERCENT 0 % (BEAKER) (test code = 437) NEUTROPHILS ABSOLUTE COUNT 8.87 K/ L 1.56-6.13 H (BEAKER) (test code = 670) LYMPHOCYTES ABSOLUTE COUNT 1.63 K/ L 1.18-3.74 (BEAKER) (test code = 414) MONOCYTES ABSOLUTE COUNT (BEAKER) 0.56 K/ L 0.24-0.36 H (test code = 415) EOSINOPHILS ABSOLUTE COUNT 0.17 K/ L 0.04-0.36 (BEAKER) (test code = 416) BASOPHILS ABSOLUTE COUNT (BEAKER) 0.04 K/ L 0.01-0.08 (test code = 417) IMMATURE GRANULOCYTES-RELATIVE 1 % 0-1 PERCENT (BEAKER) (test code = 2801) PROTHROMBIN [id number] 07:00:00 Test Item Value Reference Range Interpretation Comments PROTIME (BEAKER) (test code = 24.2 seconds 11.9-14.2 H 759) INR (BEAKER) (test code = 370) 2.3 <=5.9 Effective 03/08/2019: PT Reference Range ChangeNew: 11.9-14.2 Previous: 11.7- 14.7RECOMMENDED COUMADIN/WARFARIN INR THERAPY RANGESSTANDARD DOSE: 2.0-3.0 Includes: PROPHYLAXIS for venous thrombosis, systemic embolization; TREATMENT for venous thrombosis and/or pulmonary embolus.HIGH RISK: Target INR is2.5-3.5 for patients wiht mechanical heart valves.ALPHA FETOPROTEIN (AFP), TUMOR MARKER 2019-05-02 19:01:00 Test Item Value Reference Range Interpretation Comments ALPHA-FETOPROTEIN (BEAKER) (test 4.3 ng/mL <10.0 code = 1094) HEPATIC FUNCTION [id number] 16:59:00 Test Item Value Reference Range Interpretation Comments TOTAL PROTEIN (BEAKER) (test code = 8.4 gm/dL 6.0-8.3 H 770) ALBUMIN (BEAKER) (test code = 1145) 3.8 g/dL 3.5-5.0 BILIRUBIN TOTAL (BEAKER) (test code 1.2 mg/dL 0.2-1.2 = 377) BILIRUBIN DIRECT (BEAKER) (test 0.5 mg/dL 0.1-0.5 code = 706) ALKALINE PHOSPHATASE (BEAKER) (test 96 U/L 40-150 code = 346) AST (SGOT) (BEAKER) (test code = 33 U/L 5-34 353) ALT (SGPT) (BEAKER) (test code = 24 U/L 6-55 347) BASIC METABOLIC [id number] 16:59:00 Test Item Value Reference Range Interpretation Comments SODIUM (BEAKER) 137 meq/L 136-145 (test code = 381) POTASSIUM (BEAKER) 4.1 meq/L 3.5-5.1 (test code = 379) CHLORIDE (BEAKER) 102 meq/L 98-107 (test code = 382) CO2 (BEAKER) (test 26 meq/L 22-29 code = 355) BLOOD UREA NITROGEN 9 mg/dL 7-21 (BEAKER) (test code = 354) CREATININE (BEAKER) 0.79 mg/dL 0.57-1.25 (test code = 358) GLUCOSE RANDOM 251 mg/dL 70-105 H (BEAKER) (test code = 652) CALCIUM (BEAKER) 9.5 mg/dL 8.4-10.2 (test code = 697) EGFR (BEAKER) (test 76 mL/min/1.73 ESTIMA CHRISTOPHER GFR IS code = 1092) sq m NOT ACCURATE CREATININE CLEARANCE IN PREDICTING GLOMERULAR FILTRATION RATE . ESTIMATED GFR I S NOT APPLICABLE FOR DIALYSIS PATIEN TS. PROTHROMBIN [id number] 16:46:00 Test Item Value Reference Range Interpretation Comments PROTIME (BEAKER) (test code = 23.8 seconds 11.9-14.2 H 759) INR (BEAKER) (test code = 370) 2.2 <=5.9 Effective 03/08/2019: PT Reference Range ChangeNew: 11.9-14.2 Previous: 11.7- 14.7RECOMMENDED COUMADIN/WARFARIN INR THERAPY RANGESSTANDARD DOSE: 2.0-3.0 Includes: PROPHYLAXIS for venous thrombosis, systemic embolization; TREATMENT for venous thrombosis and/or pulmonary embolus.HIGH RISK: Target INR is2.5-3.5 for patients wiht mechanical heart valves.CBC W/PLT COUNT & AUTO [id number] 16:35:00 Test Item Value Reference Range Interpretation Comments WHITE BLOOD CELL COUNT (BEAKER) 8.8 K/ L 3.5-10.5 (test code = 775) RED BLOOD CELL COUNT (BEAKER) 4.75 M/ L 3.93-5.22 (test code = 761) HEMOGLOBIN (BEAKER) (test code = 13.4 GM/DL 11.2-15.7 410) HEMATOCRIT (BEAKER) (test code = 41.1 % 34.1-44.9 411) MEAN CORPUSCULAR VOLUME (BEAKER) 86.5 fL 79.4-94.8 (test code = 753) MEAN CORPUSCULAR HEMOGLOBIN 28.2 pg 25.6-32.2 (BEAKER) (test code = 751) MEAN CORPUSCULAR HEMOGLOBIN CONC 32.6 GM/DL 32.2-35.5 (BEAKER) (test code = 752) RED CELL DISTRIBUTION WIDTH 15.2 % 11.7-14.4 H (BEAKER) (test code = 412) PLATELET COUNT (BEAKER) (test 165 K/CU MM 150-450 code = 756) MEAN PLATELET VOLUME (BEAKER) 11.8 fL 9.4-12.3 (test code = 754) NUCLEATED RED BLOOD CELLS 0 /100 WBC 0-0 (BEAKER) (test code = 413) NEUTROPHILS RELATIVE PERCENT 74 % (BEAKER) (test code = 429) LYMPHOCYTES RELATIVE PERCENT 17 % (BEAKER) (test code = 430) MONOCYTES RELATIVE PERCENT 6 % (BEAKER) (test code = 431) EOSINOPHILS RELATIVE PERCENT 3 % (BEAKER) (test code = 432) BASOPHILS RELATIVE PERCENT 1 % (BEAKER) (test code = 437) NEUTROPHILS ABSOLUTE COUNT 6.44 K/ L 1.56-6.13 H (BEAKER) (test code = 670) LYMPHOCYTES ABSOLUTE COUNT 1.46 K/ L 1.18-3.74 (BEAKER) (test code = 414) MONOCYTES ABSOLUTE COUNT (BEAKER) 0.52 K/ L 0.24-0.36 H (test code = 415) EOSINOPHILS ABSOLUTE COUNT 0.23 K/ L 0.04-0.36 (BEAKER) (test code = 416) BASOPHILS ABSOLUTE COUNT (BEAKER) 0.06 K/ L 0.01-0.08 (test code = 417) IMMATURE GRANULOCYTES-RELATIVE 1 % 0-1 PERCENT (BEAKER) (test code = 2801) HEMOGLOBIN [id number] 06:40:00 Test Item Value Reference Range Interpretation Comments HEMOGLOBIN A1C (BEAKER) (test code = 11.3 % 4.3-6.1 H 368) POCT-GLUCOSE [id number] 12:05:00 Test Item Value Reference Range Interpretation Comments POC-GLUCOSE METER 314 mg/dL 70-[address] [facility] 6720 (BEAKER) (test code = [facility] [place] 1538) [id number] POCT-GLUCOSE [id number] 08:02:00 Test Item Value Reference Range Interpretation Comments POC-GLUCOSE METER 216 mg/dL 70-[address] [facility] 6720 (BEAKER) (test code = [place] 1538) [address] HEPATIC FUNCTION [id number] 04:42:00 Test Item Value Reference Range Interpretation Comments TOTAL PROTEIN (BEAKER) (test code = 7.3 gm/dL 6.0-8.3 770) ALBUMIN (BEAKER) (test code = 1145) 3.4 g/dL 3.5-5.0 L BILIRUBIN TOTAL (BEAKER) (test code 1.7 mg/dL 0.2-1.2 H = 377) BILIRUBIN DIRECT (BEAKER) (test 0.8 mg/dL 0.1-0.5 H code = 706) ALKALINE PHOSPHATASE (BEAKER) (test 83 U/L 40-150 code = 346) AST (SGOT) (BEAKER) (test code = 29 U/L 5-34 353) ALT (SGPT) (BEAKER) (test code = 28 U/L 6-55 347) BASIC METABOLIC [id number] 04:42:00 Test Item Value Reference Range Interpretation Comments SODIUM (BEAKER) 137 meq/L 136-145 (test code = 381) POTASSIUM (BEAKER) 3.9 meq/L 3.5-5.1 (test code = 379) CHLORIDE (BEAKER) 104 meq/L 98-107 (test code = 382) CO2 (BEAKER) (test 26 meq/L 22-29 code = 355) BLOOD UREA NITROGEN 10 mg/dL 7-21 (BEAKER) (test code = 354) CREATININE (BEAKER) 0.76 mg/dL 0.57-1.25 (test code = 358) GLUCOSE RANDOM 247 mg/dL 70-105 H (BEAKER) (test code = 652) CALCIUM (BEAKER) 8.8 mg/dL 8.4-10.2 (test code = 697) EGFR (BEAKER) (test 79 mL/min/1.73 ESTIMA CHRISTOPHER GFR IS code = 1092) sq m NOT ACCURATE CREATININE CLEARANCE IN PREDICTING GLOMERULAR FILTRATION RATE . ESTIMATED GFR I S NOT APPLICABLE FOR DIALYSIS PATIEN TS. PROTHROMBIN [id number] 04:14:00 Test Item Value Reference Range Interpretation Comments PROTIME (BEAKER) (test code = 16.6 seconds 11.9-14.2 H 759) INR (BEAKER) (test code = 370) 1.4 <=5.9 Effective 03/08/2019: PT Reference Range ChangeNew: 11.9-14.2 Previous: 11.7- 14.7RECOMMENDED COUMADIN/WARFARIN INR THERAPY RANGESSTANDARD DOSE: 2.0-3.0 Includes: PROPHYLAXIS for venous thrombosis, systemic embolization; TREATMENT for venous thrombosis and/or pulmonary embolus.HIGH RISK: Target INR is2.5-3.5 for patients wiht mechanical heart valves.While on warfarin.CBC W/PLT COUNT & AUTO [id number] 04:05:00 Test Item Value Reference Range Interpretation Comments WHITE BLOOD CELL COUNT (BEAKER) 6.2 K/ L 3.5-10.5 (test code = 775) RED BLOOD CELL COUNT (BEAKER) 4.38 M/ L 3.93-5.22 (test code = 761) HEMOGLOBIN (BEAKER) (test code = 12.3 GM/DL 11.2-15.7 410) HEMATOCRIT (BEAKER) (test code = 38.3 % 34.1-44.9 411) MEAN CORPUSCULAR VOLUME (BEAKER) 87.4 fL 79.4-94.8 (test code = 753) MEAN CORPUSCULAR HEMOGLOBIN 28.1 pg 25.6-32.2 (BEAKER) (test code = 751) MEAN CORPUSCULAR HEMOGLOBIN CONC 32.1 GM/DL 32.2-35.5 L (BEAKER) (test code = 752) RED CELL DISTRIBUTION WIDTH 15.9 % 11.7-14.4 H (BEAKER) (test code = 412) PLATELET COUNT (BEAKER) (test 114 K/CU MM 150-450 L code = 756) MEAN PLATELET VOLUME (BEAKER) 11.4 fL 9.4-12.3 (test code = 754) NUCLEATED RED BLOOD CELLS 0 /100 WBC 0-0 (BEAKER) (test code = 413) NEUTROPHILS RELATIVE PERCENT 65 % (BEAKER) (test code = 429) LYMPHOCYTES RELATIVE PERCENT 25 % (BEAKER) (test code = 430) MONOCYTES RELATIVE PERCENT 7 % (BEAKER) (test code = 431) EOSINOPHILS RELATIVE PERCENT 3 % (BEAKER) (test code = 432) BASOPHILS RELATIVE PERCENT 1 % (BEAKER) (test code = 437) NEUTROPHILS ABSOLUTE COUNT 4.03 K/ L 1.56-6.13 (BEAKER) (test code = 670) LYMPHOCYTES ABSOLUTE COUNT 1.54 K/ L 1.18-3.74 (BEAKER) (test code = 414) MONOCYTES ABSOLUTE COUNT (BEAKER) 0.43 K/ L 0.24-0.36 H (test code = 415) EOSINOPHILS ABSOLUTE COUNT 0.16 K/ L 0.04-0.36 (BEAKER) (test code = 416) BASOPHILS ABSOLUTE COUNT (BEAKER) 0.05 K/ L 0.01-0.08 (test code = 417) IMMATURE GRANULOCYTES-RELATIVE 1 % 0-1 PERCENT (BEAKER) (test code = 2801) POCT-GLUCOSE [id number] 20:57:00 Test Item Value Reference Range Interpretation Comments POC-GLUCOSE METER 257 mg/dL 70-110 H [facility] [place] [address] [facility] (test code = [facility] 1538) [address] POCT-GLUCOSE [id number] 16:42:00 Test Item Value Reference Range Interpretation Comments POC-GLUCOSE METER 384 mg/dL 70-110 H TESTED AT [place] [address] ([facility]) (test code = [facility] 1538) [address] POCT-GLUCOSE [id number] 12:13:00 Test Item Value Reference Range Interpretation Comments POC-GLUCOSE METER 306 mg/dL 70-110 H [facility] [place] [address] [facility] (test code = [facility] [employer] [facility] 1538) [address] POCT-GLUCOSE [id number] 07:56:00 Test Item Value Reference Range Interpretation Comments POC-GLUCOSE METER 325 mg/dL 70-110 H [facility] AT [place] [address] [facility] (test code = [facility] [employer] [facility] 1538) [address] BASIC METABOLIC [id number] 05:42:00 Test Item Value Reference Range Interpretation Comments SODIUM (BEAKER) 138 meq/L 136-145 (test code = 381) POTASSIUM (BEAKER) 4.2 meq/L 3.5-5.1 (test code = 379) CHLORIDE (BEAKER) 105 meq/L 98-107 (test code = 382) CO2 (BEAKER) (test 26 meq/L 22-29 code = 355) BLOOD UREA NITROGEN 7 mg/dL 7-21 (BEAKER) (test code = 354) CREATININE (BEAKER) 0.70 mg/dL 0.57-1.25 (test code = 358) GLUCOSE RANDOM 226 mg/dL 70-105 H (BEAKER) (test code = 652) CALCIUM (BEAKER) 8.9 mg/dL 8.4-10.2 (test code = 697) EGFR (BEAKER) (test 87 mL/min/1.73 ESTIMA CHRISTOPHER GFR IS code = 1092) sq m NOT ACCURATE CREATININE CLEARANCE IN PREDICTING GLOMERULAR FILTRATION RATE . ESTIMATED GFR I S NOT APPLICABLE FOR DIALYSIS PATIEN TS. Specimen slightly ictericHEPATIC FUNCTION [id number] 05:42:00 Test Item Value Reference Range Interpretation Comments TOTAL PROTEIN (BEAKER) (test code = 7.7 gm/dL 6.0-8.3 770) ALBUMIN (BEAKER) (test code = 1145) 3.5 g/dL 3.5-5.0 BILIRUBIN TOTAL (BEAKER) (test code 2.2 mg/dL 0.2-1.2 H = 377) BILIRUBIN DIRECT (BEAKER) (test 1.0 mg/dL 0.1-0.5 H code = 706) ALKALINE PHOSPHATASE (BEAKER) (test 89 U/L 40-150 code = 346) AST (SGOT) (BEAKER) (test code = 36 U/L 5-34 H 353) ALT (SGPT) (BEAKER) (test code = 32 U/L 6-55 347) Specimen slightly ictericPROTHROMBIN [id number] 05:30:00 Test Item Value Reference Range Interpretation Comments PROTIME (BEAKER) (test code = 15.7 seconds 11.9-14.2 H 759) INR (BEAKER) (test code = 370) 1.3 <=5.9 Effective 03/08/2019: PT Reference Range ChangeNew: 11.9-14.2 Previous: 11.7- 14.7RECOMMENDED COUMADIN/WARFARIN INR THERAPY RANGESSTANDARD DOSE: 2.0-3.0 Includes: PROPHYLAXIS for venous thrombosis, systemic embolization; TREATMENT for venous thrombosis and/or pulmonary embolus.HIGH RISK: Target INR is2.5-3.5 for patients wiht mechanical heart valves.CBC W/PLT COUNT & AUTO [id number] 05:19:00 Test Item Value Reference Range Interpretation Comments WHITE BLOOD CELL COUNT (BEAKER) 5.4 K/ L 3.5-10.5 (test code = 775) RED BLOOD CELL COUNT (BEAKER) 4.74 M/ L 3.93-5.22 (test code = 761) HEMOGLOBIN (BEAKER) (test code = 13.2 GM/DL 11.2-15.7 410) HEMATOCRIT (BEAKER) (test code = 41.5 % 34.1-44.9 411) MEAN CORPUSCULAR VOLUME (BEAKER) 87.6 fL 79.4-94.8 (test code = 753) MEAN CORPUSCULAR HEMOGLOBIN 27.8 pg 25.6-32.2 (BEAKER) (test code = 751) MEAN CORPUSCULAR HEMOGLOBIN CONC 31.8 GM/DL 32.2-35.5 L (BEAKER) (test code = 752) RED CELL DISTRIBUTION WIDTH 15.9 % 11.7-14.4 H (BEAKER) (test code = 412) PLATELET COUNT (BEAKER) (test 130 K/CU MM 150-450 L code = 756) MEAN PLATELET VOLUME (BEAKER) 11.2 fL 9.4-12.3 (test code = 754) NUCLEATED RED BLOOD CELLS 0 /100 WBC 0-0 (BEAKER) (test code = 413) NEUTROPHILS RELATIVE PERCENT 65 % (BEAKER) (test code = 429) LYMPHOCYTES RELATIVE PERCENT 26 % (BEAKER) (test code = 430) MONOCYTES RELATIVE PERCENT 5 % (BEAKER) (test code = 431) EOSINOPHILS RELATIVE PERCENT 2 % (BEAKER) (test code = 432) BASOPHILS RELATIVE PERCENT 1 % (BEAKER) (test code = 437) NEUTROPHILS ABSOLUTE COUNT 3.52 K/ L 1.56-6.13 (BEAKER) (test code = 670) LYMPHOCYTES ABSOLUTE COUNT 1.41 K/ L 1.18-3.74 (BEAKER) (test code = 414) MONOCYTES ABSOLUTE COUNT (BEAKER) 0.29 K/ L 0.24-0.36 (test code = 415) EOSINOPHILS ABSOLUTE COUNT 0.13 K/ L 0.04-0.36 (BEAKER) (test code = 416) BASOPHILS ABSOLUTE COUNT (BEAKER) 0.04 K/ L 0.01-0.08 (test code = 417) IMMATURE GRANULOCYTES-RELATIVE 1 % 0-1 PERCENT (BEAKER) (test code = 2801) POCT-GLUCOSE [id number] 22:31:00 Test Item Value Reference Range Interpretation Comments POC-GLUCOSE METER 225 mg/dL 70-110 H TESTED AT [place] [address] ([facility]) (test code = [facility] 1538) [id number] POCT-GLUCOSE [id number] 18:24:00 Test Item Value Reference Range Interpretation Comments POC-GLUCOSE METER 257 mg/dL 70-110 H TESTED AT [place] [address] ([facility]) (test code = [facility] 1538) [id number] RAPID DRUG SCREEN, [id number] 14:23:00 Test Item Value Reference Range Interpretation Comments BARBITURATE URINE (BEAKER) (test Negative Negative code = 725) BENZODIAZEPINE SCREEN URINE (BEAKER) Negative Negative (test code = 726) COCAINE (METAB.) SCREEN (BEAKER) Negative Negative (test code = 1164) METHADONE SCREEN (BEAKER) (test code Negative Negative = 1436) OPIATE SCREEN URINE (BEAKER) (test Positive Negative A code = 734) CANNABINOID SCREEN URINE (BEAKER) Negative Negative (test code = 727) AMPH/METHAMPH SCREEN (BEAKER) (test Negative Negative code = 1438) PHENCYCLIDINE SCREEN URINE (BEAKER) Negative Negative (test code = 608) DRUG CUTOFF CONC.Cocaine 300 ng/mL Cannabinoid 50 ng/mLBenzodiazepine 200 ng/mLBarbiturate 200 ng/mLPhencyclidine 25 ng/mLOpiate 300 ng/mLMethadone 300 ng/mLAmphetamine/ 1000 ng/mL MethamphetamineThis assay provides an unconfirmed qualitative test result for the clinical management of patients in emergency situations. Chain of custody not maintained. Some rrbg-xqm-pxtmvrj medications, as well as adulterants, may cause inaccurate results. Clinical correlation should be applied. A more comprehensivedrug screen or confirmation of a detected drug may be performed upon request.POCT-GLUCOSE [id number] 12:23:00 Test Item Value Reference Range Interpretation Comments POC-GLUCOSE METER 242 mg/dL 70-110 H [facility] AT [place] [address] [facility] (test code = [facility] 1538) [id number] POCT-GLUCOSE [id number] 07:27:00 Test Item Value Reference Range Interpretation Comments POC-GLUCOSE METER 198 mg/dL 70-[address] [facility] 6720 (BEAKER) (test code = SRAVANI Manriquez [facility] 1538) [address] CBC W/PLT COUNT & AUTO [id number] 06:41:00 Test Item Value Reference Range Interpretation Comments WHITE BLOOD CELL COUNT (BEAKER) 6.5 K/ L 3.5-10.5 (test code = 775) RED BLOOD CELL COUNT (BEAKER) 4.40 M/ L 3.93-5.22 (test code = 761) HEMOGLOBIN (BEAKER) (test code = 12.6 GM/DL 11.2-15.7 410) HEMATOCRIT (BEAKER) (test code = 38.3 % 34.1-44.9 411) MEAN CORPUSCULAR VOLUME (BEAKER) 87.0 fL 79.4-94.8 (test code = 753) MEAN CORPUSCULAR HEMOGLOBIN 28.6 pg 25.6-32.2 (BEAKER) (test code = 751) MEAN CORPUSCULAR HEMOGLOBIN CONC 32.9 GM/DL 32.2-35.5 (BEAKER) (test code = 752) RED CELL DISTRIBUTION WIDTH 15.6 % 11.7-14.4 H (BEAKER) (test code = 412) PLATELET COUNT (BEAKER) (test 123 K/CU MM 150-450 L code = 756) MEAN PLATELET VOLUME (BEAKER) 12.0 fL 9.4-12.3 (test code = 754) NUCLEATED RED BLOOD CELLS 0 /100 WBC 0-0 (BEAKER) (test code = 413) NEUTROPHILS RELATIVE PERCENT 69 % (BEAKER) (test code = 429) LYMPHOCYTES RELATIVE PERCENT 22 % (BEAKER) (test code = 430) MONOCYTES RELATIVE PERCENT 6 % (BEAKER) (test code = 431) EOSINOPHILS RELATIVE PERCENT 2 % (BEAKER) (test code = 432) BASOPHILS RELATIVE PERCENT 1 % (BEAKER) (test code = 437) NEUTROPHILS ABSOLUTE COUNT 4.50 K/ L 1.56-6.13 (BEAKER) (test code = 670) LYMPHOCYTES ABSOLUTE COUNT 1.44 K/ L 1.18-3.74 (BEAKER) (test code = 414) MONOCYTES ABSOLUTE COUNT (BEAKER) 0.37 K/ L 0.24-0.36 H (test code = 415) EOSINOPHILS ABSOLUTE COUNT 0.12 K/ L 0.04-0.36 (BEAKER) (test code = 416) BASOPHILS ABSOLUTE COUNT (BEAKER) 0.04 K/ L 0.01-0.08 (test code = 417) IMMATURE GRANULOCYTES-RELATIVE 1 % 0-1 PERCENT (BEAKER) (test code = 2801) CT, [id number] 02:31:00Referring: DOROTA Alvares-CFINAL REPORT EXAM: CT of [...] liver suggesting cirrhosis. Hepatomegaly.BILE DUCTS: Withinnormal limits.GALL BLADDER: Status post cholecystectomy.PANCREAS: Within normal limits.SPLEEN: Mild s plenomegaly.ADRENALS: Within normal limits.KIDNEYS/URETERS: Punctate non obstructing stone [...] collection. Punctate nonobstructing left renal stone. No hydroureteroneph rosis.Cirrhosis. Hepatosplenomegaly. Signed: Racheal Carlos MDReport Verified Date/Time: 04/11/2019 02:31:06 URINALYSIS W/ REFLEX URINE [id number] 22:19:00 Test Item Value Reference Range Interpretation Comments COLOR (BEAKER) (test code = 470) Yellow CLARITY (BEAKER) (test code = Clear 469) SPECIFIC GRAVITY UA (BEAKER) 1.034 1.001-1.035 (test code = 468) PH UA (BEAKER) (test code = 467) 7.0 5.0-8.0 PROTEIN UA (BEAKER) (test code = Negative Negative 464) GLUCOSE UA (BEAKER) (test code = >1000 mg/dL Negative A 365) KETONES UA (BEAKER) (test code = Negative Negative 371) BILIRUBIN UA (BEAKER) (test code Negative Negative = 462) BLOOD UA (BEAKER) (test code = Negative Negative 461) NITRITE UA (BEAKER) (test code = Negative Negative 465) LEUKOCYTE ESTERASE UA (BEAKER) Negative Negative (test code = 466) UROBILINOGEN UA (BEAKER) (test 12.0 mg/dL 0.2-1.0 H code = 463) RBC UA (BEAKER) (test code = 519) 1 /HPF WBC UA (BEAKER) (test code = 520) < /HPF SQUAMOUS EPITHELIAL (BEAKER) 1 /HPF (test code = 516) SOURCE(BEAKER) (test code = 2795) RAD, CHEST, 2 [id number] 22:13:00Referring: Shawnee Alvares for exam:->ABDOMINAL PAINFINAL REPORT [...] Impression: No focal pulmonary consolidation. Signed: Racheal Carlos MDReport Verified Date/Time: 04/10/2019 22:13:40 Electronically sig juli by: RACHEAL CARLOS MD on 04/10/2019 10:13 PMCOMPREHENSIVE METABOLIC [id number] 22:06:00 Test Item Value Reference Range Interpretation Comments TOTAL PROTEIN 7.5 gm/dL 6.0-8.3 (BEAKER) (test code = 770) ALBUMIN (BEAKER) 3.5 g/dL 3.5-5.0 (test code = 1145) ALKALINE PHOSPHATASE 99 U/L 40-150 (BEAKER) (test code = 346) BILIRUBIN TOTAL 1.7 mg/dL 0.2-1.2 H (BEAKER) (test code = 377) SODIUM (BEAKER) (test 136 meq/L 136-145 code = 381) POTASSIUM (BEAKER) 4.1 meq/L 3.5-5.1 (test code = 379) CHLORIDE (BEAKER) 102 meq/L 98-107 (test code = 382) CO2 (BEAKER) (test 27 meq/L 22-29 code = 355) BLOOD UREA NITROGEN 10 mg/dL 7-21 (BEAKER) (test code = 354) CREATININE (BEAKER) 0.75 mg/dL 0.57-1.25 (test code = 358) GLUCOSE RANDOM 232 mg/dL 70-105 H (BEAKER) (test code = 652) CALCIUM (BEAKER) 9.3 mg/dL 8.4-10.2 (test code = 697) AST (SGOT) (BEAKER) 30 U/L 5-34 (test code = 353) ALT (SGPT) (BEAKER) 29 U/L 6-55 (test code = 347) EGFR (BEAKER) (test 80 mL/min/1.73 ESTIMA CHRISTOPHER GFR IS code = 1092) sq m NOT ACCURATE CREATININE CLEARANCE IN PREDICTING GLOMERULAR FILTRATION RATE . ESTIMATED GFR I S NOT APPLICABLE FOR DIALYSIS PATIEN TS. Specimen slightly [id number] 22:06:00 Test Item Value Reference Range Interpretation Comments LIPASE (BEAKER) (test code = 749) 17 U/L 8-78 Specimen slightly ictericPT/[id number] 22:02:00 Test Item Value Reference Range Interpretation Comments PROTIME (BEAKER) (test code = 18.6 seconds 11.9-14.2 H 759) INR (BEAKER) (test code = 370) 1.6 <=5.9 PARTIAL THROMBOPLASTIN TIME 37.1 seconds 22.5-36.0 H (BEAKER) (test code = 760) Effective 03/08/2019: PT Reference Range ChangeNew: 11.9-14.2 Previous: 11.7- 14.7RECOMMENDED COUMADIN/WARFARIN INR THERAPY RANGESSTANDARD DOSE: 2.0-3.0 Includes: PROPHYLAXIS for venous thrombosis, systemic embolization; TREATMENT for venous thrombosis and/or pulmonary embolus.HIGH RISK: Target INR is2.5-3.5 for patients wiht mechanical heart valves.CBC W/PLT COUNT & AUTO [id number] 21:50:00 Test Item Value Reference Range Interpretation Comments WHITE BLOOD CELL COUNT (BEAKER) 6.2 K/ L 3.5-10.5 (test code = 775) RED BLOOD CELL COUNT (BEAKER) 4.53 M/ L 3.93-5.22 (test code = 761) HEMOGLOBIN (BEAKER) (test code = 12.8 GM/DL 11.2-15.7 410) HEMATOCRIT (BEAKER) (test code = 39.3 % 34.1-44.9 411) MEAN CORPUSCULAR VOLUME (BEAKER) 86.8 fL 79.4-94.8 (test code = 753) MEAN CORPUSCULAR HEMOGLOBIN 28.3 pg 25.6-32.2 (BEAKER) (test code = 751) MEAN CORPUSCULAR HEMOGLOBIN CONC 32.6 GM/DL 32.2-35.5 (BEAKER) (test code = 752) RED CELL DISTRIBUTION WIDTH 15.8 % 11.7-14.4 H (BEAKER) (test code = 412) PLATELET COUNT (BEAKER) (test 130 K/CU MM 150-450 L code = 756) MEAN PLATELET VOLUME (BEAKER) 11.2 fL 9.4-12.3 (test code = 754) NUCLEATED RED BLOOD CELLS 0 /100 WBC 0-0 (BEAKER) (test code = 413) NEUTROPHILS RELATIVE PERCENT 66 % (BEAKER) (test code = 429) LYMPHOCYTES RELATIVE PERCENT 24 % (BEAKER) (test code = 430) MONOCYTES RELATIVE PERCENT 6 % (BEAKER) (test code = 431) EOSINOPHILS RELATIVE PERCENT 2 % (BEAKER) (test code = 432) BASOPHILS RELATIVE PERCENT 1 % (BEAKER) (test code = 437) NEUTROPHILS ABSOLUTE COUNT 4.10 K/ L 1.56-6.13 (BEAKER) (test code = 670) LYMPHOCYTES ABSOLUTE COUNT 1.50 K/ L 1.18-3.74 (BEAKER) (test code = 414) MONOCYTES ABSOLUTE COUNT (BEAKER) 0.39 K/ L 0.24-0.36 H (test code = 415) EOSINOPHILS ABSOLUTE COUNT 0.12 K/ L 0.04-0.36 (BEAKER) (test code = 416) BASOPHILS ABSOLUTE COUNT (BEAKER) 0.04 K/ L 0.01-0.08 (test code = 417) IMMATURE GRANULOCYTES-RELATIVE 1 % 0-1 PERCENT (BEAKER) (test code = 2801) CT ABD/PEL WITH [id number]-[id number] 01:31:00 [place] [address] Patient Name: MARLYS GARNETT MR #: [id number] : 1965 Age/Sex: 54/F Req #: [id number] Adm Physician: Ordered by: NASRIN PITTMAN DO Report #: [id number] Location: [facility] Room/Bed: Procedure: [id number] HOPD/CT ABD/PEL WITH CONTRAST-HOPD Exam Date: 04/10/19 Exam Time: 0102 REPORT STATUS: Signed EXAMINATION: CT of the [...] No obstruction. Punctate left renal calculus. PELVIC ORGANS/BLADDER: Bladder is decompressed. Hysterectomy. PERITONEUM/RETROPERITONEUM: No free air or fluid. LYMPH NODES: No intra- abdominal, retroperitoneal, pelvic or inguinal lymphadenopathy. VESSELS: Vascular calcifications. IVC filter. GI TRACT: No obstruction. Postsurgical change to the bowel. BONES AND SOFT TISSUE: No bony destructive lesions. Prior hernia repair. IMPRESSION: No acute CT finding. Cirrhotic liver. Punctate left renal calculus. Signed by: Dr. Benjy Sanchez M.D. on 04/10/2019 1:39 AM Dictated By: BENJY SANCHEZ MD 8 Transcribed By: GAYATRI on 10/29 COPY TO: NASRIN PITTMAN [facility] [id number] 09:42:00 Test Item Value Reference Range Interpretation Comments Bedside Glucose (test code = 61058-0) 352 70-120 H Meter ID: [id number] Glucose 2019-03-16 09:42:00 Test Item Value Reference Range Interpretation Comments Bedside Glucose (test code = 25216-7) 352 70-120 H Meter ID: [id number] [facility] Glucose 2019-03-16 09:42:00 Test Item Value Reference Range Interpretation Comments Bedside Glucose (test code = 28406-8) 352 70-120 H Meter ID: [id number] Health System [facility] Hospitalodium Level 2019-03-15 16:14:00 Test Item Value Reference Range Interpretation Comments Sodium Level (test code = 2951-2) 131 136-145 L [facility] [id number] 16:14:00 Test Item Value Reference Range Interpretation Comments Potassium Level (test code = 2823-3) 3.9 3.5-5.[address] [facility] [facility] CenterChloride [id number] 16:14:00 Test Item Value Reference Range Interpretation Comments Chloride Level (test code = 2075-0) 97 98-[address] [facility] [facility] CenterCarbon Dioxide [id number] 16:14:00 Test Item Value Reference Range Interpretation Comments Carbon Dioxide Level (test code = 28 -29 8-9) [facility] CenterAnion [id number] 16:14:00 Test Item Value Reference Range Interpretation Comments Anion Gap (test code = 61192-8) 9.9 8-[address] [facility] CenterBlood Urea [id number] 16:14:00 Test Item Value Reference Range Interpretation Comments Blood Urea Nitrogen (test code = 05-05 3094-0) [facility] CenterCreatinine2019-06-05 16:14:00 Test Item Value Reference Range Interpretation Comments Creatinine (test code = 2160-0) 0.82 0.57-1.[address] [facility] CenterBUN/Creatinine [id number] 16:14:00 Test Item Value Reference Range Interpretation Comments BUN/Creatinine Ratio (test code = 04-04 3097-3) [facility] CenterEstimat Glomerular Filtration Rate 2019-03-15 16:14:00 Test Item Value Reference Range Interpretation Comments Estimat Glomerular Filtration Rate > 60 >60 (test code = 196834419) Ranges were taken from the National Kidney Disease Education Program and the National Kidney Foundation literature.Reference ranges:60 or greater: Asleky05- 59 (for 3 consecutive months): Chronic kidneydisease 15 or less: Kidney failure [facility] CenterGlucose [id number] 16:14:00 Test Item Value Reference Range Interpretation Comments Glucose Level (test code = QCR2542) 346 74-[address] [facility] [facility] CenterCalcium [id number] 16:14:00 Test Item Value Reference Range Interpretation Comments Calcium Level (test code = 14405-1) 9.7 8.4-10.[address] [facility] CenterTotal [id number] 16:14:00 Test Item Value Reference Range Interpretation Comments Total Bilirubin (test code = 1975-2) 1.9 0.2-1.[address] [facility] Medical CenterAspartate Amino Transf (AST/SGOT) 2019-03-15 16:14:00 Test Item Value Reference Range Interpretation Comments Aspartate Amino Transf (AST/SGOT) (test 32 5-34 code = Aspartate Amino Transf (AST/SGOT)) [facility] CenterAlanine Aminotransferase (ALT/SGPT) 2019-03-15 16:14:00 Test Item Value Reference Range Interpretation Comments Alanine Aminotransferase (ALT/SGPT) 35 0-55 (test code = 1742-6) [facility] [id number] 16:14:00 Test Item Value Reference Range Interpretation Comments Total Protein (test code = 2885-2) 8.0 6.5-8.[address] [facility] CenterAlbumin2019-06-05 16:14:00 Test Item Value Reference Range Interpretation Comments Albumin (test code = 1751-7) 3.4 3.5-5.[address] [facility] CenterGlobulin2019-06-05 16:14:00 Test Item Value Reference Range Interpretation Comments Globulin (test code = 56815-2) 4.6 2.3-3.[address] CenterAlbumin/Globulin [id number] 16:14:00 Test Item Value Reference Range Interpretation Comments Albumin/Globulin Ratio (test code = 0.7 0.8-2.0 L 1759-0) [facility] CenterAlkaline [id number] 16:14:00 Test Item Value Reference Range Interpretation Comments Alkaline Phosphatase (test code = 100 40-150 6768-6) [facility] Hospitalodium Ktznb5239-26-34 16:14:00 Test Item Value Reference Range Interpretation Comments Sodium Level (test code = 2951-2) 131 136-[address] CenterPotassium [id number] 16:14:00 Test Item Value Reference Range Interpretation Comments Potassium Level (test code = 2823-3) 3.9 3.5-5.[address] [facility] CenterChloride [id number] 16:14:00 Test Item Value Reference Range Interpretation Comments Chloride Level (test code = 2075-0) 97 98-[address] CenterCarbon Dioxide [id number] 16:14:00 Test Item Value Reference Range Interpretation Comments Carbon Dioxide Level (test code = 28 -29 8-9) [facility] CenterAnion [id number] 16:14:00 Test Item Value Reference Range Interpretation Comments Anion Gap (test code = 84250-1) 9.9 8-[address] [facility] CenterBlood Urea Bovnzdmn6577-11-52 16:14:00 Test Item Value Reference Range Interpretation Comments Blood Urea Nitrogen (test code = 05-05 3094-0) [facility] CenterCreatinine2019-06-05 16:14:00 Test Item Value Reference Range Interpretation Comments Creatinine (test code = 2160-0) 0.82 0.57-1.[address] [facility] CenterBUN/Creatinine [id number] 16:14:00 Test Item Value Reference Range Interpretation Comments BUN/Creatinine Ratio (test code = 04-04 3097-3) [facility] CenterEstimat Glomerular Filtration Rate 2019-03-15 16:14:00 Test Item Value Reference Range Interpretation Comments Estimat Glomerular Filtration Rate > 60 >60 (test code = 819362303) Ranges were taken from the National Kidney Disease Education Program and the National Kidney Foundation literature.Reference ranges:60 or greater: Namdrp81- 59 (for 3 consecutive months): Chronic kidneydisease 15 or less: Kidney failure [facility] CenterGlucose [id number] 16:14:00 Test Item Value Reference Range Interpretation Comments Glucose Level (test code = IDE5530) 346 74-[address] CenterCalcium Xyepf1121-28-24 16:14:00 Test Item Value Reference Range Interpretation Comments Calcium Level (test code = 70748-9) 9.7 8.4-10.[address] [facility] CenterTotal [id number] 16:14:00 Test Item Value Reference Range Interpretation Comments Total Bilirubin (test code = 1975-2) 1.9 0.2-1.[address] Medical CenterAspartate Amino Transf (AST/SGOT) 2019-03-15 16:14:00 Test Item Value Reference Range Interpretation Comments Aspartate Amino Transf (AST/SGOT) (test 32 5-34 code = Aspartate Amino Transf (AST/SGOT)) [facility] CenterAlanine Aminotransferase (ALT/SGPT) 2019-03-15 16:14:00 Test Item Value Reference Range Interpretation Comments Alanine Aminotransferase (ALT/SGPT) 35 0-55 (test code = 1742-6) [facility] Phsagiy7068-03-50 16:14:00 Test Item Value Reference Range Interpretation Comments Total Protein (test code = 2885-2) 8.0 6.5-8.[address] CenterAlbumin2019-06-05 16:14:00 Test Item Value Reference Range Interpretation Comments Albumin (test code = 1751-7) 3.4 3.5-5.[address] [facility] CenterGlobulin2019-06-05 16:14:00 Test Item Value Reference Range Interpretation Comments Globulin (test code = 79489-5) 4.6 2.3-3.[address] [facility] CenterAlbumin/Globulin [id number] 16:14:00 Test Item Value Reference Range Interpretation Comments Albumin/Globulin Ratio (test code = 0.7 0.8-2.0 L 1759-0) [facility] CenterAlkaline Qhftqildcyp7967-48-23 16:14:00 Test Item Value Reference Range Interpretation Comments Alkaline Phosphatase (test code = 100 40-150 6768-6) [facility] Hospitalodium Geshj4659-49-09 16:14:00 Test Item Value Reference Range Interpretation Comments Sodium Level (test code = 2951-2) 131 136-[address] CenterPotassium Zcpdi6074-62-02 16:14:00 Test Item Value Reference Range Interpretation Comments Potassium Level (test code = 2823-3) 3.9 3.5-5.[address] [facility] CenterChloride Dujpu2639-42-17 16:14:00 Test Item Value Reference Range Interpretation Comments Chloride Level (test code = 2075-0) 97 98-[address] [facility] CenterCarbon Dioxide [id number] 16:14:00 Test Item Value Reference Range Interpretation Comments Carbon Dioxide Level (test code = 28 -29 8-9) [facility] CenterAnion [id number] 16:14:00 Test Item Value Reference Range Interpretation Comments Anion Gap (test code = 18667-4) 9.9 8-[address] [facility] CenterBlood Urea Pirtnkur7628-24-75 16:14:00 Test Item Value Reference Range Interpretation Comments Blood Urea Nitrogen (test code = 05-05 3094-0) [facility] CenterCreatinine2019-06-05 16:14:00 Test Item Value Reference Range Interpretation Comments Creatinine (test code = 2160-0) 0.82 0.57-1.[address] [facility] [facility] CenterBUN/Creatinine Yxrge1277-02-07 16:14:00 Test Item Value Reference Range Interpretation Comments BUN/Creatinine Ratio (test code = 04-04 3097-3) [facility] CenterEstimat Glomerular Filtration Rate 2019-03-15 16:14:00 Test Item Value Reference Range Interpretation Comments Estimat Glomerular Filtration Rate > 60 >60 (test code = 723022669) Ranges were taken from the National Kidney Disease Education Program and the National Kidney Foundation literature.Reference ranges:60 or greater: Hotgth82- 59 (for 3 consecutive months): Chronic kidneydisease 15 or less: Kidney failure [facility] CenterGlucose [id number] 16:14:00 Test Item Value Reference Range Interpretation Comments Glucose Level (test code = DEA3858) 346 74-[address] [facility] [facility] CenterCalcium [id number] 16:14:00 Test Item Value Reference Range Interpretation Comments Calcium Level (test code = 75934-5) 9.7 8.4-10.[address] [facility] CenterTotal Vbfnvzvon4592-52-16 16:14:00 Test Item Value Reference Range Interpretation Comments Total Bilirubin (test code = 1975-2) 1.9 0.2-1.[address] [facility] Medical CenterAspartate Amino Transf (AST/SGOT) 2019-03-15 16:14:00 Test Item Value Reference Range Interpretation Comments Aspartate Amino Transf (AST/SGOT) (test 32 5-34 code = Aspartate Amino Transf (AST/SGOT)) [facility] CenterAlanine Aminotransferase (ALT/SGPT) 2019-03-15 16:14:00 Test Item Value Reference Range Interpretation Comments Alanine Aminotransferase (ALT/SGPT) 35 0-55 (test code = 1742-6) [facility] Larfzlv0516-39-21 16:14:00 Test Item Value Reference Range Interpretation Comments Total Protein (test code = 2885-2) 8.0 6.5-8.[address] CenterAlbumin2019-06-05 16:14:00 Test Item Value Reference Range Interpretation Comments Albumin (test code = 1751-7) 3.4 3.5-5.[address] CenterGlobulin2019-06-05 16:14:00 Test Item Value Reference Range Interpretation Comments Globulin (test code = 82533-1) 4.6 2.3-3.[address] CenterAlbumin/Globulin Qyhtd2854-75-06 16:14:00 Test Item Value Reference Range Interpretation Comments Albumin/Globulin Ratio (test code = 0.7 0.8-2.0 L 1759-0) [facility] CenterAlkaline Smfrbhrxunq7962-18-72 16:14:00 Test Item Value Reference Range Interpretation Comments Alkaline Phosphatase (test code = 100 40-150 6768-6) [facility] Hospitalodium Wdvff5393-06-49 16:14:00 Test Item Value Reference Range Interpretation Comments Sodium Level (test code = 2951-2) 131 136-[address] CenterPotassium Jrzll1469-36-97 16:14:00 Test Item Value Reference Range Interpretation Comments Potassium Level (test code = 2823-3) 3.9 3.5-5.[address] [facility] CenterChloride Fggkz3442-51-14 16:14:00 Test Item Value Reference Range Interpretation Comments Chloride Level (test code = 2075-0) 97 98-[address] CenterCarbon Dioxide Epxfy6614-43-78 16:14:00 Test Item Value Reference Range Interpretation Comments Carbon Dioxide Level (test code = 28 -8-9) [facility] CenterAnion Ssd2681-03-97 16:14:00 Test Item Value Reference Range Interpretation Comments Anion Gap (test code = 70257-2) 9.9 8-[address] [facility] [facility] CenterBlood Urea Kbvnkige7620-69-94 16:14:00 Test Item Value Reference Range Interpretation Comments Blood Urea Nitrogen (test code = 05-05 3094-0) [facility] CenterCreatinine2019-06-05 16:14:00 Test Item Value Reference Range Interpretation Comments Creatinine (test code = 2160-0) 0.82 0.57-1.[address] [facility] CenterBUN/Creatinine Ftwit7241-26-31 16:14:00 Test Item Value Reference Range Interpretation Comments BUN/Creatinine Ratio (test code = 04-04 3097-3) [facility] CenterEstimat Glomerular Filtration Rate 2019-03-15 16:14:00 Test Item Value Reference Range Interpretation Comments Estimat Glomerular Filtration Rate > 60 >60 (test code = 965977603) Ranges were taken from the National Kidney Disease Education Program and the National Kidney Foundation literature.Reference ranges:60 or greater: Fmgkqv69- 59 (for 3 consecutive months): Chronic kidneydisease 15 or less: Kidney failure [facility] CenterGlucose Liblm8453-51-82 16:14:00 Test Item Value Reference Range Interpretation Comments Glucose Level (test code = VCO0573) 346 74-[address] [facility] CenterCalcium [id number] 16:14:00 Test Item Value Reference Range Interpretation Comments Calcium Level (test code = 41779-4) 9.7 8.4-10.[address] [facility] [facility] CenterTotal Fjcwkejzh9083-25-95 16:14:00 Test Item Value Reference Range Interpretation Comments Total Bilirubin (test code = 1975-2) 1.9 0.2-1.[address] [facility] CenterAspartate Amino Transf (AST/SGOT) 2019-03-15 16:14:00 Test Item Value Reference Range Interpretation Comments Aspartate Amino Transf (AST/SGOT) (test 32 5-34 code = Aspartate Amino Transf (AST/SGOT)) [facility] CenterAlanine Aminotransferase (ALT/SGPT) 2019-03-15 16:14:00 Test Item Value Reference Range Interpretation Comments Alanine Aminotransferase (ALT/SGPT) 35 0-55 (test code = 1742-6) [facility] CenterTotal [id number] 16:14:00 Test Item Value Reference Range Interpretation Comments Total Protein (test code = 2885-2) 8.0 6.5-8.[address] CenterAlbumin2019-06-05 16:14:00 Test Item Value Reference Range Interpretation Comments Albumin (test code = 1751-7) 3.4 3.5-5.[address] [facility] CenterGlobulin2019-06-05 16:14:00 Test Item Value Reference Range Interpretation Comments Globulin (test code = 85110-1) 4.6 2.3-3.[address] [facility] CenterAlbumin/Globulin [id number] 16:14:00 Test Item Value Reference Range Interpretation Comments Albumin/Globulin Ratio (test code = 0.7 0.8-2.0 L 1759-0) [facility] CenterAlkaline Samghmhlfbc8307-69-10 16:14:00 Test Item Value Reference Range Interpretation Comments Alkaline Phosphatase (test code = 100 40-150 6768-6) [facility] CenterUrine [id number] 16:10:00 Test Item Value Reference Range Interpretation Comments Urine WBC (test code = 5821-4) 0-5 0-[address] [facility] CenterUrine [id number] 16:10:00 Test Item Value Reference Range Interpretation Comments Urine RBC (test code = 35870-6) 0-5 0-[address] [facility] [address] [facility] CenterUrine [id number] 16:10:00 Test Item Value Reference Range Interpretation Comments Urine Bacteria (test code = 23573-6) MODERATE NONE H [facility] CenterUrine Epithelial [id number] 16:10:00 Test Item Value Reference Range Interpretation Comments Urine Epithelial Cells (test code = MODERATE NONE 58902-6) [facility] CenterUrine [id number] 16:10:00 Test Item Value Reference Range Interpretation Comments Urine WBC (test code = 5821-4) 0-5 0-[address] [facility] CenterUrine [id number] 16:10:00 Test Item Value Reference Range Interpretation Comments Urine RBC (test code = 47406-6) 0-5 0-5 [facility] [id number] 16:10:00 Test Item Value Reference Range Interpretation Comments Urine Bacteria (test code = 40994-0) MODERATE NONE H [facility] CenterUrine Epithelial [id number] 16:10:00 Test Item Value Reference Range Interpretation Comments Urine Epithelial Cells (test code = MODERATE NONE 45234-8) [facility] CenterUrine [id number] 16:10:00 Test Item Value Reference Range Interpretation Comments Urine WBC (test code = 5821-4) 0-5 0-[address] [facility] CenterUrine [id number] 16:10:00 Test Item Value Reference Range Interpretation Comments Urine RBC (test code = 47739-1) 0-5 0-[address] [facility] CenterUrine [id number] 16:10:00 Test Item Value Reference Range Interpretation Comments Urine Bacteria (test code = 12853-6) MODERATE NONE H [facility] CenterUrine Epithelial [id number] 16:10:00 Test Item Value Reference Range Interpretation Comments Urine Epithelial Cells (test code = MODERATE NONE 65418-8) [facility] CenterUrine [id number] 16:10:00 Test Item Value Reference Range Interpretation Comments Urine WBC (test code = 5821-4) 0-5 0-[address] [facility] CenterUrine [id number] 16:10:00 Test Item Value Reference Range Interpretation Comments Urine RBC (test code = 15770-3) 0-5 0-[address] [facility] CenterUrine [id number] 16:10:00 Test Item Value Reference Range Interpretation Comments Urine Bacteria (test code = 86371-7) MODERATE NONE H [facility] CenterUrine Epithelial [id number] 16:10:00 Test Item Value Reference Range Interpretation Comments Urine Epithelial Cells (test code = MODERATE NONE 45363-8) [facility] CenterWhite Blood [id number] 15:56:00 Test Item Value Reference Range Interpretation Comments White Blood Count (test code = 6690-2) 6.10 4.8-10.[address] [facility] CenterRed Blood [id number] 15:56:00 Test Item Value Reference Range Interpretation Comments Red Blood Count (test code = 789-8) 4.55 3.6-5.[address] CenterHemoglobin2019-06-05 15:56:00 Test Item Value Reference Range Interpretation Comments Hemoglobin (test code = 19870-3) 12.8 12.0-16.[address] [facility] CenterHematocrit2019-06-05 15:56:00 Test Item Value Reference Range Interpretation Comments Hematocrit (test code = 4544-3) 38.5 34.2-44.[address] [facility] CenterMean Corpuscular [id number] 15:56:00 Test Item Value Reference Range Interpretation Comments Mean Corpuscular Volume (test code = 84.6 81-99 787-2) [facility] CenterMean Corpuscular Ytvufkmpyu4478-82-37 15:56:00 Test Item Value Reference Range Interpretation Comments Mean Corpuscular Hemoglobin (test code 28.1 28-32 = 785-6) [facility] CenterMean Corpuscular Hemoglobin Concent 2019-03-15 15:56:00 Test Item Value Reference Range Interpretation Comments Mean Corpuscular Hemoglobin Concent 33.2 31-35 (test code = 786-4) [facility] CenterRed Cell Distribution [id number] 15:56:00 Test Item Value Reference Range Interpretation Comments Red Cell Distribution Width (test code 15.6 11.7-14.4 H = 89257-4) [facility] CenterPlatelet [id number] 15:56:00 Test Item Value Reference Range Interpretation Comments Platelet Count (test code = 777-3) 115 140-[address] [facility] CenterNeutrophils (%) (Auto)2019-03-15 15:56:00 Test Item Value Reference Range Interpretation Comments Neutrophils (%) (Auto) (test code = 64.2 38.7-80.0 08999-8) [facility] CenterLymphocytes (%) (Auto)2019-03-15 15:56:00 Test Item Value Reference Range Interpretation Comments Lymphocytes (%) (Auto) (test code = 25.7 18.0-39.1 736-9) [facility] CenterMonocytes (%) (Auto)2019-03-15 15:56:00 Test Item Value Reference Range Interpretation Comments Monocytes (%) (Auto) (test code = 7.0 4.4-11.3 5905-5) [facility] CenterEosinophils (%) (Auto)2019-03-15 15:56:00 Test Item Value Reference Range Interpretation Comments Eosinophils (%) (Auto) (test code = 2.1 0.0-6.0 713-8) [facility] CenterBasophils (%) (Auto)2019-03-15 15:56:00 Test Item Value Reference Range Interpretation Comments Basophils (%) (Auto) (test code = 0.7 0.0-1.0 706-2) [facility] CenterIM GRANULOCYTES %2019-03-15 15:56:00 Test Item Value Reference Range Interpretation Comments IM GRANULOCYTES % (test code = IM 0.3 0.0-1.0 GRANULOCYTES %) [facility] CenterNeutrophils # (Auto)2019-03-15 15:56:00 Test Item Value Reference Range Interpretation Comments Neutrophils # (Auto) (test code = 3.9 2.1-6.9 751-8) [facility] CenterLymphocytes # (Auto)2019-03-15 15:56:00 Test Item Value Reference Range Interpretation Comments Lymphocytes # (Auto) (test code = 1.6 1.0-3.2 86379-7) [facility] CenterMonocytes # (Auto)2019-03-15 15:56:00 Test Item Value Reference Range Interpretation Comments Monocytes # (Auto) (test code = 742-7) 0.4 0.2-0.[address] [facility] CenterEosinophils # (Auto)2019-03-15 15:56:00 Test Item Value Reference Range Interpretation Comments Eosinophils # (Auto) (test code = 0.1 0.0-0.4 711-2) [facility] CenterBasophils # (Auto)2019-03-15 15:56:00 Test Item Value Reference Range Interpretation Comments Basophils # (Auto) (test code = 704-7) 0.0 0.0-0.[address] CenterAbsolute Immature Granulocyte (auto 2019-03-15 15:56:00 Test Item Value Reference Range Interpretation Comments Absolute Immature Granulocyte (auto 0.02 0-0.1 (test code = Absolute Immature Granulocyte (auto) [facility] CenterUrine [id number] 15:56:00 Test Item Value Reference Range Interpretation Comments Urine Color (test code = 5778-6) YELLOW YELLOW [facility] CenterUrine [id number] 15:56:00 Test Item Value Reference Range Interpretation Comments Urine Clarity (test code = 37055-0) HAZY CLEAR [facility] CenterUrine Specific [id number] 15:56:00 Test Item Value Reference Range Interpretation Comments Urine Specific [place] (test code = 1.010 1.010-1.025 5811-5) [facility] CenterUrine [id number] 15:56:00 Test Item Value Reference Range Interpretation Comments Urine pH (test code = 34269-3) 8 5-[address] [facility] CenterUrine Leukocyte [id number] 15:56:00 Test Item Value Reference Range Interpretation Comments Urine Leukocyte Esterase (test code NEGATIVE NEGATIVE = 74780-4) [facility] CenterUrine [id number] 15:56:00 Test Item Value Reference Range Interpretation Comments Urine Nitrite (test code = 33961-4) NEGATIVE NEGATIVE [facility] CenterUrine [id number] 15:56:00 Test Item Value Reference Range Interpretation Comments Urine Protein (test code = 47133-9) NEGATIVE NEGATIVE [facility] CenterUrine Glucose (UA)2019-03-15 15:56:00 Test Item Value Reference Range Interpretation Comments Urine Glucose (UA) (test code = 3+ NEGATIVE 37632-2) [facility] CenterUrine [id number] 15:56:00 Test Item Value Reference Range Interpretation Comments Urine Ketones (test code = 23311-0) NEGATIVE NEGATIVE [facility] CenterUrine Fweslfmylrsm0117-11-93 15:56:00 Test Item Value Reference Range Interpretation Comments Urine Urobilinogen (test code = 4 0.2-1 09039-4) [facility] CenterUrine Daiywazpp7422-43-37 15:56:00 Test Item Value Reference Range Interpretation Comments Urine Bilirubin (test code = 1977-8) NEGATIVE NEGATIVE [facility] CenterUrine [id number] 15:56:00 Test Item Value Reference Range Interpretation Comments Urine Blood (test code = 29077-5) TRACE NEGATIVE [facility] CenterWhite Blood [id number] 15:56:00 Test Item Value Reference Range Interpretation Comments White Blood Count (test code = 6690-2) 6.10 4.8-10.[address] [facility] CenterRed Blood [id number] 15:56:00 Test Item Value Reference Range Interpretation Comments Red Blood Count (test code = 789-8) 4.55 3.6-5.[address] [facility] CenterHemoglobin2019-06-05 15:56:00 Test Item Value Reference Range Interpretation Comments Hemoglobin (test code = 65024-0) 12.8 12.0-16.[address] [facility] CenterHematocrit2019-06-05 15:56:00 Test Item Value Reference Range Interpretation Comments Hematocrit (test code = 4544-3) 38.5 34.2-44.[address] [facility] [facility] CenterMean Corpuscular [id number] 15:56:00 Test Item Value Reference Range Interpretation Comments Mean Corpuscular Volume (test code = 84.6 81-99 787-2) [facility] CenterMean Corpuscular Odrlglwzku3431-30-27 15:56:00 Test Item Value Reference Range Interpretation Comments Mean Corpuscular Hemoglobin (test code 28.1 28-32 = 785-6) [facility] 2019-03-15 15:56:00 Test Item Value Reference Range Interpretation Comments Mean Corpuscular Hemoglobin Concent 33.2 31-35 (test code = 786-4) [facility] CenterRed Cell Distribution [id number] 15:56:00 Test Item Value Reference Range Interpretation Comments Red Cell Distribution Width (test code 15.6 11.7-14.4 H = 66274-3) [facility] CenterPlatelet [id number] 15:56:00 Test Item Value Reference Range Interpretation Comments Platelet Count (test code = 777-3) 115 140-[address] CenterNeutrophils (%) (Auto)2019-03-15 15:56:00 Test Item Value Reference Range Interpretation Comments Neutrophils (%) (Auto) (test code = 64.2 38.7-80.0 77876-8) [facility] CenterLymphocytes (%) (Auto)2019-03-15 15:56:00 Test Item Value Reference Range Interpretation Comments Lymphocytes (%) (Auto) (test code = 25.7 18.0-39.1 736-9) [facility] CenterMonocytes (%) (Auto)2019-03-15 15:56:00 Test Item Value Reference Range Interpretation Comments Monocytes (%) (Auto) (test code = 7.0 4.4-11.3 5905-5) [facility] CenterEosinophils (%) (Auto)2019-03-15 15:56:00 Test Item Value Reference Range Interpretation Comments Eosinophils (%) (Auto) (test code = 2.1 0.0-6.0 713-8) [facility] CenterBasophils (%) (Auto)2019-03-15 15:56:00 Test Item Value Reference Range Interpretation Comments Basophils (%) (Auto) (test code = 0.7 0.0-1.0 706-2) [facility] CenterIM GRANULOCYTES %2019-03-15 15:56:00 Test Item Value Reference Range Interpretation Comments IM GRANULOCYTES % (test code = IM 0.3 0.0-1.0 GRANULOCYTES %) [facility] CenterNeutrophils # (Auto)2019-03-15 15:56:00 Test Item Value Reference Range Interpretation Comments Neutrophils # (Auto) (test code = 3.9 2.1-6.9 751-8) [facility] CenterLymphocytes # (Auto)2019-03-15 15:56:00 Test Item Value Reference Range Interpretation Comments Lymphocytes # (Auto) (test code = 1.6 1.0-3.2 42699-0) [facility] CenterMonocytes # (Auto)2019-03-15 15:56:00 Test Item Value Reference Range Interpretation Comments Monocytes # (Auto) (test code = 742-7) 0.4 0.2-0.[address] [facility] CenterEosinophils # (Auto)2019-03-15 15:56:00 Test Item Value Reference Range Interpretation Comments Eosinophils # (Auto) (test code = 0.1 0.0-0.4 711-2) [facility] CenterBasophils # (Auto)2019-03-15 15:56:00 Test Item Value Reference Range Interpretation Comments Basophils # (Auto) (test code = 704-7) 0.0 0.0-0.[address] CenterAbsolute Immature Granulocyte (auto 2019-03-15 15:56:00 Test Item Value Reference Range Interpretation Comments Absolute Immature Granulocyte (auto 0.02 0-0.1 (test code = Absolute Immature Granulocyte (auto) [facility] CenterUrine [id number] 15:56:00 Test Item Value Reference Range Interpretation Comments Urine Color (test code = 5778-6) YELLOW YELLOW [facility] CenterUrine [id number] 15:56:00 Test Item Value Reference Range Interpretation Comments Urine Clarity (test code = 14561-5) HAZY CLEAR [facility] Specific [id number] 15:56:00 Test Item Value Reference Range Interpretation Comments Urine Specific [place] (test code = 1.010 1.010-1.025 5811-5) [facility] [id number] 15:56:00 Test Item Value Reference Range Interpretation Comments Urine pH (test code = 94822-9) 8 5-7 [facility] Leukocyte Lsjkenxz3095-79-41 15:56:00 Test Item Value Reference Range Interpretation Comments Urine Leukocyte Esterase (test code NEGATIVE NEGATIVE = 72684-8) [facility] Ooegaht6747-21-07 15:56:00 Test Item Value Reference Range Interpretation Comments Urine Nitrite (test code = 00276-0) NEGATIVE NEGATIVE [facility] Lushtgm7428-95-07 15:56:00 Test Item Value Reference Range Interpretation Comments Urine Protein (test code = 26439-0) NEGATIVE NEGATIVE [facility] Glucose (UA)2019-03-15 15:56:00 Test Item Value Reference Range Interpretation Comments Urine Glucose (UA) (test code = 3+ NEGATIVE 04136-5) [facility] Jrceuml7844-54-45 15:56:00 Test Item Value Reference Range Interpretation Comments Urine Ketones (test code = 24152-7) NEGATIVE NEGATIVE [facility] Nyvxnewrreio9636-87-95 15:56:00 Test Item Value Reference Range Interpretation Comments Urine Urobilinogen (test code = 4 0.2-1 86033-0) [facility] Ombmyfsvc2817-44-20 15:56:00 Test Item Value Reference Range Interpretation Comments Urine Bilirubin (test code = 1977-8) NEGATIVE NEGATIVE [facility] CenterUrine [id number] 15:56:00 Test Item Value Reference Range Interpretation Comments Urine Blood (test code = 76859-5) TRACE NEGATIVE [facility] CenterWhite Blood [id number] 15:56:00 Test Item Value Reference Range Interpretation Comments White Blood Count (test code = 6690-2) 6.10 4.8-10.[address] [facility] CenterRed Blood [id number] 15:56:00 Test Item Value Reference Range Interpretation Comments Red Blood Count (test code = 789-8) 4.55 3.6-5.[address] [facility] CenterHemoglobin2019-06-05 15:56:00 Test Item Value Reference Range Interpretation Comments Hemoglobin (test code = 05625-9) 12.8 12.0-16.[address] [facility] CenterHematocrit2019-06-05 15:56:00 Test Item Value Reference Range Interpretation Comments Hematocrit (test code = 4544-3) 38.5 34.2-44.[address] [facility] CenterMean Corpuscular Iczsib1888-02-30 15:56:00 Test Item Value Reference Range Interpretation Comments Mean Corpuscular Volume (test code = 84.6 81-99 787-2) [facility] CenterMean Corpuscular Czhbvojkqr2834-45-65 15:56:00 Test Item Value Reference Range Interpretation Comments Mean Corpuscular Hemoglobin (test code 28.1 28-32 = 785-6) [facility] CenterMean Corpuscular Hemoglobin Concent 2019-03-15 15:56:00 Test Item Value Reference Range Interpretation Comments Mean Corpuscular Hemoglobin Concent 33.2 31-35 (test code = 786-4) [facility] CenterRed Cell Distribution [id number] 15:56:00 Test Item Value Reference Range Interpretation Comments Red Cell Distribution Width (test code 15.6 11.7-14.4 H = 20188-2) [facility] CenterPlatelet Hfqwm9166-04-95 15:56:00 Test Item Value Reference Range Interpretation Comments Platelet Count (test code = 777-3) 115 140-[address] [facility] CenterNeutrophils (%) (Auto)2019-03-15 15:56:00 Test Item Value Reference Range Interpretation Comments Neutrophils (%) (Auto) (test code = 64.2 38.7-80.0 74745-4) [facility] CenterLymphocytes (%) (Auto)2019-03-15 15:56:00 Test Item Value Reference Range Interpretation Comments Lymphocytes (%) (Auto) (test code = 25.7 18.0-39.1 736-9) [facility] CenterMonocytes (%) (Auto)2019-03-15 15:56:00 Test Item Value Reference Range Interpretation Comments Monocytes (%) (Auto) (test code = 7.0 4.4-11.3 5905-5) [facility] CenterEosinophils (%) (Auto)2019-03-15 15:56:00 Test Item Value Reference Range Interpretation Comments Eosinophils (%) (Auto) (test code = 2.1 0.0-6.0 713-8) [facility] CenterBasophils (%) (Auto)2019-03-15 15:56:00 Test Item Value Reference Range Interpretation Comments Basophils (%) (Auto) (test code = 0.7 0.0-1.0 706-2) [facility] CenterIM GRANULOCYTES %2019-03-15 15:56:00 Test Item Value Reference Range Interpretation Comments IM GRANULOCYTES % (test code = IM 0.3 0.0-1.0 GRANULOCYTES %) [facility] CenterNeutrophils # (Auto)2019-03-15 15:56:00 Test Item Value Reference Range Interpretation Comments Neutrophils # (Auto) (test code = 3.9 2.1-6.9 751-8) [facility] CenterLymphocytes # (Auto)2019-03-15 15:56:00 Test Item Value Reference Range Interpretation Comments Lymphocytes # (Auto) (test code = 1.6 1.0-3.2 22885-3) [facility] CenterMonocytes # (Auto)2019-03-15 15:56:00 Test Item Value Reference Range Interpretation Comments Monocytes # (Auto) (test code = 742-7) 0.4 0.2-0.[address] [facility] CenterEosinophils # (Auto)2019-03-15 15:56:00 Test Item Value Reference Range Interpretation Comments Eosinophils # (Auto) (test code = 0.1 0.0-0.4 711-2) [facility] CenterBasophils # (Auto)2019-03-15 15:56:00 Test Item Value Reference Range Interpretation Comments Basophils # (Auto) (test code = 704-7) 0.0 0.0-0.[address] [facility] CenterAbsolute Immature Granulocyte (auto 2019-03-15 15:56:00 Test Item Value Reference Range Interpretation Comments Absolute Immature Granulocyte (auto 0.02 0-0.1 (test code = Absolute Immature Granulocyte (auto) [facility] CenterUrine [id number] 15:56:00 Test Item Value Reference Range Interpretation Comments Urine Color (test code = 5778-6) YELLOW YELLOW [facility] CenterUrine [id number] 15:56:00 Test Item Value Reference Range Interpretation Comments Urine Clarity (test code = 63578-6) HAZY CLEAR [facility] CenterUrine Specific Nbvnmyq2476-87-59 15:56:00 Test Item Value Reference Range Interpretation Comments Urine Specific [place] (test code = 1.010 1.010-1.025 5811-5) [facility] CenterUrine [id number] 15:56:00 Test Item Value Reference Range Interpretation Comments Urine pH (test code = 65036-4) 8 5-[address] [facility] [facility] CenterUrine Leukocyte Gphfmgni8871-65-83 15:56:00 Test Item Value Reference Range Interpretation Comments Urine Leukocyte Esterase (test code NEGATIVE NEGATIVE = 86903-4) [facility] CenterUrine [id number] 15:56:00 Test Item Value Reference Range Interpretation Comments Urine Nitrite (test code = 97147-6) NEGATIVE NEGATIVE [facility] CenterUrine Rhjskyh9435-74-54 15:56:00 Test Item Value Reference Range Interpretation Comments Urine Protein (test code = 27367-5) NEGATIVE NEGATIVE [facility] CenterUrine Glucose (UA)2019-03-15 15:56:00 Test Item Value Reference Range Interpretation Comments Urine Glucose (UA) (test code = 3+ NEGATIVE 54379-1) [facility] CenterUrine Rvdprkm5487-09-09 15:56:00 Test Item Value Reference Range Interpretation Comments Urine Ketones (test code = 37748-2) NEGATIVE NEGATIVE [facility] CenterUrine Mbecbjdmsjub4506-38-36 15:56:00 Test Item Value Reference Range Interpretation Comments Urine Urobilinogen (test code = 4 0.2-1 96521-5) [facility] CenterUrine Uzuqzsjpf2184-30-06 15:56:00 Test Item Value Reference Range Interpretation Comments Urine Bilirubin (test code = 1977-8) NEGATIVE NEGATIVE [facility] CenterUrine [id number] 15:56:00 Test Item Value Reference Range Interpretation Comments Urine Blood (test code = 67248-1) TRACE NEGATIVE [facility] CenterWhite Blood [id number] 15:56:00 Test Item Value Reference Range Interpretation Comments White Blood Count (test code = 6690-2) 6.10 4.8-10.[address] [facility] CenterRed Blood [id number] 15:56:00 Test Item Value Reference Range Interpretation Comments Red Blood Count (test code = 789-8) 4.55 3.6-5.[address] [facility] CenterHemoglobin2019-06-05 15:56:00 Test Item Value Reference Range Interpretation Comments Hemoglobin (test code = 57098-8) 12.8 12.0-16.[address] [facility] CenterHematocrit2019-06-05 15:56:00 Test Item Value Reference Range Interpretation Comments Hematocrit (test code = 4544-3) 38.5 34.2-44.[address] [facility] CenterMean Corpuscular [id number] 15:56:00 Test Item Value Reference Range Interpretation Comments Mean Corpuscular Volume (test code = 84.6 81-99 787-2) [facility] CenterMean Corpuscular Abvruuqahy0526-97-72 15:56:00 Test Item Value Reference Range Interpretation Comments Mean Corpuscular Hemoglobin (test code 28.1 28-32 = 785-6) [facility] CenterMean Corpuscular Hemoglobin Concent 2019-03-15 15:56:00 Test Item Value Reference Range Interpretation Comments Mean Corpuscular Hemoglobin Concent 33.2 31-35 (test code = 786-4) [facility] CenterRed Cell Distribution [id number] 15:56:00 Test Item Value Reference Range Interpretation Comments Red Cell Distribution Width (test code 15.6 11.7-14.4 H = 16547-8) [facility] CenterPlatelet [id number] 15:56:00 Test Item Value Reference Range Interpretation Comments Platelet Count (test code = 777-3) 115 140-[address] [facility] CenterNeutrophils (%) (Auto)2019-03-15 15:56:00 Test Item Value Reference Range Interpretation Comments Neutrophils (%) (Auto) (test code = 64.2 38.7-80.0 94787-7) [facility] CenterLymphocytes (%) (Auto)2019-03-15 15:56:00 Test Item Value Reference Range Interpretation Comments Lymphocytes (%) (Auto) (test code = 25.7 18.0-39.1 736-9) [facility] CenterMonocytes (%) (Auto)2019-03-15 15:56:00 Test Item Value Reference Range Interpretation Comments Monocytes (%) (Auto) (test code = 7.0 4.4-11.3 5905-5) [facility] CenterEosinophils (%) (Auto)2019-03-15 15:56:00 Test Item Value Reference Range Interpretation Comments Eosinophils (%) (Auto) (test code = 2.1 0.0-6.0 713-8) [facility] CenterBasophils (%) (Auto)2019-03-15 15:56:00 Test Item Value Reference Range Interpretation Comments Basophils (%) (Auto) (test code = 0.7 0.0-1.0 706-2) [facility] CenterIM GRANULOCYTES %2019-03-15 15:56:00 Test Item Value Reference Range Interpretation Comments IM GRANULOCYTES % (test code = IM 0.3 0.0-1.0 GRANULOCYTES %) [facility] CenterNeutrophils # (Auto)2019-03-15 15:56:00 Test Item Value Reference Range Interpretation Comments Neutrophils # (Auto) (test code = 3.9 2.1-6.9 751-8) [facility] CenterLymphocytes # (Auto)2019-03-15 15:56:00 Test Item Value Reference Range Interpretation Comments Lymphocytes # (Auto) (test code = 1.6 1.0-3.2 38162-9) [facility] CenterMonocytes # (Auto)2019-03-15 15:56:00 Test Item Value Reference Range Interpretation Comments Monocytes # (Auto) (test code = 742-7) 0.4 0.2-0.[address] [facility] CenterEosinophils # (Auto)2019-03-15 15:56:00 Test Item Value Reference Range Interpretation Comments Eosinophils # (Auto) (test code = 0.1 0.0-0.4 711-2) [facility] CenterBasophils # (Auto)2019-03-15 15:56:00 Test Item Value Reference Range Interpretation Comments Basophils # (Auto) (test code = 704-7) 0.0 0.0-0.[address] CenterAbsolute Immature Granulocyte (auto 2019-03-15 15:56:00 Test Item Value Reference Range Interpretation Comments Absolute Immature Granulocyte (auto 0.02 0-0.1 (test code = Absolute Immature Granulocyte (auto) [facility] CenterUrine [id number] 15:56:00 Test Item Value Reference Range Interpretation Comments Urine Color (test code = 5778-6) YELLOW YELLOW [facility] CenterUrine [id number] 15:56:00 Test Item Value Reference Range Interpretation Comments Urine Clarity (test code = 13293-8) HAZY CLEAR [facility] Specific Bpxtufa7539-79-57 15:56:00 Test Item Value Reference Range Interpretation Comments Urine Specific [place] (test code = 1.010 1.010-1.025 5811-5) [facility] CenterUrine [id number] 15:56:00 Test Item Value Reference Range Interpretation Comments Urine pH (test code = 16037-5) 8 5-7 [facility] Leukocyte Ipdjdcmy2176-93-52 15:56:00 Test Item Value Reference Range Interpretation Comments Urine Leukocyte Esterase (test code NEGATIVE NEGATIVE = 36019-4) [facility] Ijmyyvm4656-46-31 15:56:00 Test Item Value Reference Range Interpretation Comments Urine Nitrite (test code = 83042-2) NEGATIVE NEGATIVE [facility] Iyucilt9132-54-13 15:56:00 Test Item Value Reference Range Interpretation Comments Urine Protein (test code = 80808-2) NEGATIVE NEGATIVE [facility] Glucose (UA)2019-03-15 15:56:00 Test Item Value Reference Range Interpretation Comments Urine Glucose (UA) (test code = 3+ NEGATIVE 84148-8) [facility] Zznyfmx0388-81-03 15:56:00 Test Item Value Reference Range Interpretation Comments Urine Ketones (test code = 58187-4) NEGATIVE NEGATIVE [facility] Baaelkbpcznk5762-65-77 15:56:00 Test Item Value Reference Range Interpretation Comments Urine Urobilinogen (test code = 4 0.2-1 54383-3) [facility] [id number] 15:56:00 Test Item Value Reference Range Interpretation Comments Urine Bilirubin (test code = 1977-8) NEGATIVE NEGATIVE [facility] Hrnmm4421-92-25 15:56:00 Test Item Value Reference Range Interpretation Comments Urine Blood (test code = 09118-3) TRACE NEGATIVE [facility]TISSUE [id number] 17:02:00Surgical Pathology Report Case: [id number] Authorizing Provider: Ken Mann MD Collected: 01/10/2019 1120 Ordering Location: [facility] Radiology Angio Received: 01/10/2019 1426 Pathologist: Allie Lu MD Specimen: Liver LIVER, ULTRASOUND-GUIDED NEEDLE BIOPSIES- CIRRHOSIS- STEATOSIS (~6%)- RARE BALLOONED HEPATOCYTE- see comment Signing Pathologist Direct Phone Line: [phone] signed by Allie Lu MD on 01/13/2019 at 5:02 PMThe histological features are consistent with cirrhosis secondary to steatohepatitis. No features of autoimmune hepatitis are seen.The non-alcoholic steatohepatitis (JIMY) activity scoring is performed according to guidelines from non-alcoholic steatohepatitis, clinical research network(Deb, et al. Hepatology 2005. 41:1313-21), at the request of the clinician, for research relatedpurposes.The JIMY score is: Steatosis: Grade 1 + lobular inflammation, grade 0 + hepatocyte ballooning score 1 = 2/8. The fibrosis score is 4 of 4.20987, 82542 I4Ncaaatdq liver enzymesNative right liverbiopsyThe specimen is received in a formalin-filled container and labeled with the patient's informat ion and labeled "right kluti kaah liver biopsy" and consists of two newton-red core biopsies measuring 1.5 x 1.7 cm in length, submitted entirely A1. CG/pl Section shows two cores of liver parenchyma with greater than 10 portal tracts and is adequate for evaluation. Trichrome and reticulin stain shows distortion of architecture with bridging fibrosis and incomplete to complete regenerative nodule formation.Foci of pericellular fibrosis is present. The fibrous septa show cholangiolar proliferation and verymild chronic lymphoplasmacytic inflammation. Few scattered ceroid laden macrophages are present in the fibrous septa. No significant interface hepatitis is noted. The bile ducts appear preserved. No periductal inflammation, granulomas or bile duct scars are seen. There is miild steatosis, mixed small droplet and large droplet type, involving almost 6% of liver parenchyma. Rare ballooned hepatocyte with early Malathi Denk hyaline is seen. No significant lobular inflammation is present. Iron stain is n egative. No hyaline globules are seen on PAS with diastase stain.Special stains: trichrome, reticulin, iron and PAS with diastaseThe interpretation of this case included the use of immunohistochemistryor special stains. Immunohistochemistry technical testing was performed at [facility], Pathology Laboratory where it was developed and [...] qualified to perform high complexity clinical laboratory testing.U/S, BIOPSY, [id number] 11:59:00 Referring: DOROTA Alvares-CUltrasound guided liver biopsyAbnormal liver enzymes, cirrhosis, AIH vs NASHReason for Exam:->abnormal liver enzymesFINAL REPORT Ultrasound guided liver biopsy. [...] of the liver under ultrasound guidance. Signed: John Villarreal MDReport Verified Date/Time: 01/10/2019 11:59:42 Reading Location: [facility] P0J Ultrasound Reading Room [id number] 08:59:00 Test Item Value Reference Range Interpretation Comments PARTIAL THROMBOPLASTIN TIME 37.7 seconds 22.5-36.0 H (BEAKER) (test code = 760) PROTHROMBIN TIME/[id number] 08:58:00 Test Item Value Reference Range Interpretation Comments PROTIME (BEAKER) (test code = 14.7 seconds 11.7-14.7 759) INR (BEAKER) (test code = 370) 1.1 <=5.9 RECOMMENDED COUMADIN/WARFARIN INR THERAPY RANGESSTANDARD DOSE: 2.0 - 3.0 Includes: PROPHYLAXIS forvenous thrombosis, systemic embolization; TREATMENT for venous thrombosis and/or pulmonary embolus.HIGH RISK: Target INR is 2.5-3.5 for patients with mechanical heart valves.PLATELET [id number] 08:50:00 Test Item Value Reference Range Interpretation Comments PLATELET COUNT (BEAKER) (test 113 K/CU MM 150-450 L code = 756) PROTHROMBIN TIME/[id number] 09:40:00 Test Item Value Reference Range Interpretation Comments PROTIME (BEAKER) (test code = 25.0 seconds 11.7-14.7 H 759) INR (BEAKER) (test code = 370) 2.3 <=5.9 RECOMMENDED COUMADIN/WARFARIN INR THERAPY RANGESSTANDARD DOSE: 2.0 - 3.0 Includes: PROPHYLAXIS forvenous thrombosis, systemic embolization; TREATMENT for venous thrombosis and/or pulmonary embolus.HIGH RISK: Target INR is 2.5-3.5 for patients with mechanical heart valves.CBC W/PLT COUNT & AUTO DIFFERENTIAL 2019-01-04 09:33:00 Test Item Value Reference Range Interpretation Comments WHITE BLOOD CELL COUNT (BEAKER) 6.6 K/ L 3.5-10.5 (test code = 775) RED BLOOD CELL COUNT (BEAKER) 4.61 M/ L 3.93-5.22 (test code = 761) HEMOGLOBIN (BEAKER) (test code = 12.8 GM/DL 11.2-15.7 410) HEMATOCRIT (BEAKER) (test code = 39.8 % 34.1-44.9 411) MEAN CORPUSCULAR VOLUME (BEAKER) 86.3 fL 79.4-94.8 (test code = 753) MEAN CORPUSCULAR HEMOGLOBIN 27.8 pg 25.6-32.2 (BEAKER) (test code = 751) MEAN CORPUSCULAR HEMOGLOBIN CONC 32.2 GM/DL 32.2-35.5 (BEAKER) (test code = 752) RED CELL DISTRIBUTION WIDTH 15.3 % 11.7-14.4 H (BEAKER) (test code = 412) PLATELET COUNT (BEAKER) (test 128 K/CU MM 150-450 L code = 756) MEAN PLATELET VOLUME (BEAKER) 10.9 fL 9.4-12.3 (test code = 754) NUCLEATED RED BLOOD CELLS 0 /100 WBC 0-0 (BEAKER) (test code = 413) NEUTROPHILS RELATIVE PERCENT 66 % (BEAKER) (test code = 429) LYMPHOCYTES RELATIVE PERCENT 24 % (BEAKER) (test code = 430) MONOCYTES RELATIVE PERCENT 6 % (BEAKER) (test code = 431) EOSINOPHILS RELATIVE PERCENT 3 % (BEAKER) (test code = 432) BASOPHILS RELATIVE PERCENT 1 % (BEAKER) (test code = 437) NEUTROPHILS ABSOLUTE COUNT 4.38 K/ L 1.56-6.13 (BEAKER) (test code = 670) LYMPHOCYTES ABSOLUTE COUNT 1.58 K/ L 1.18-3.74 (BEAKER) (test code = 414) MONOCYTES ABSOLUTE COUNT (BEAKER) 0.41 K/ L 0.24-0.36 H (test code = 415) EOSINOPHILS ABSOLUTE COUNT 0.18 K/ L 0.04-0.36 (BEAKER) (test code = 416) BASOPHILS ABSOLUTE COUNT (BEAKER) 0.05 K/ L 0.01-0.08 (test code = 417) IMMATURE GRANULOCYTES-RELATIVE 1 % 0-1 PERCENT (BEAKER) (test code = 2801) U/S, ABDOMINAL, [id number] 11:18:00Referring: DOROTA Alvares- CCirrhosis assess for HCCReason for Exam:->Cirrhosis asess for HCCFINAL REPORT Ultrasound of the abdomen. Clinical History: Cirrhosis asess forC. Comparison study: MRI dated April 01, 2018. [...] IVC are unremarkable. No pleural effusion is seen . Impression: 1. Nodular, cirrhotic appearing liver with no focal masses.2. Trace ascites.3. Pancreas poorly seen. Signed: John Smith MDReport Verified Date/Time: 12/07/2018 11:18:11 Reading Location: [address] Radiology Reading Room ALPHA FETOPROTEIN (AFP), TUMOR [id number] 19:36:00 Test Item Value Reference Range Interpretation Comments ALPHA-FETOPROTEIN (BEAKER) (test 4.2 ng/mL <10.0 code = 1094) HEPATIC FUNCTION [id number] 17:53:00 Test Item Value Reference Range Interpretation Comments TOTAL PROTEIN (BEAKER) (test code = 8.2 gm/dL 6.0-8.3 770) ALBUMIN (BEAKER) (test code = 1145) 3.7 g/dL 3.5-5.0 BILIRUBIN TOTAL (BEAKER) (test code 1.3 mg/dL 0.2-1.2 H = 377) BILIRUBIN DIRECT (BEAKER) (test 0.5 mg/dL 0.1-0.5 code = 706) ALKALINE PHOSPHATASE (BEAKER) (test 85 U/L 40-150 code = 346) AST (SGOT) (BEAKER) (test code = 35 U/L 5-34 H 353) ALT (SGPT) (BEAKER) (test code = 21 U/L 6-55 347) BASIC METABOLIC [id number] 17:53:00 Test Item Value Reference Range Interpretation Comments SODIUM (BEAKER) 141 meq/L 136-145 (test code = 381) POTASSIUM (BEAKER) 4.0 meq/L 3.5-5.1 (test code = 379) CHLORIDE (BEAKER) 105 meq/L 98-107 (test code = 382) CO2 (BEAKER) (test 32 meq/L 22-29 H code = 355) BLOOD UREA NITROGEN 14 mg/dL 7-21 (BEAKER) (test code = 354) CREATININE (BEAKER) 0.75 mg/dL 0.57-1.25 (test code = 358) GLUCOSE RANDOM 153 mg/dL 70-105 H (BEAKER) (test code = 652) CALCIUM (BEAKER) 9.6 mg/dL 8.4-10.2 (test code = 697) EGFR (BEAKER) (test 81 mL/min/1.73 ESTIMA CHRISTOPHER GFR IS code = 1092) sq m NOT ACCURATE CREATININE CLEARANCE IN PREDICTING GLOMERULAR FILTRATION RATE . ESTIMATED GFR I S NOT APPLICABLE FOR DIALYSIS PATIEN TS. PROTHROMBIN TIME/[id number] 17:46:00 Test Item Value Reference Range Interpretation Comments PROTIME (BEAKER) (test code = 19.1 seconds 11.7-14.7 H 759) INR (BEAKER) (test code = 370) 1.6 <=5.9 RECOMMENDED COUMADIN/WARFARIN INR THERAPY RANGESSTANDARD DOSE: 2.0 - 3.0 Includes: PROPHYLAXIS forvenous thrombosis, systemic embolization; TREATMENT for venous thrombosis and/or pulmonary embolus.HIGH RISK: Target INR is 2.5-3.5 for patients with mechanical heart valves.CBC W/PLT COUNT & AUTO DIFFERENTIAL 2018-11-24 17:32:00 Test Item Value Reference Range Interpretation Comments WHITE BLOOD CELL COUNT (BEAKER) 6.2 K/ L 3.5-10.5 (test code = 775) RED BLOOD CELL COUNT (BEAKER) 4.40 M/ L 3.93-5.22 (test code = 761) HEMOGLOBIN (BEAKER) (test code = 12.2 GM/DL 11.2-15.7 410) HEMATOCRIT (BEAKER) (test code = 39.2 % 34.1-44.9 411) MEAN CORPUSCULAR VOLUME (BEAKER) 89.1 fL 79.4-94.8 (test code = 753) MEAN CORPUSCULAR HEMOGLOBIN 27.7 pg 25.6-32.2 (BEAKER) (test code = 751) MEAN CORPUSCULAR HEMOGLOBIN CONC 31.1 GM/DL 32.2-35.5 L (BEAKER) (test code = 752) RED CELL DISTRIBUTION WIDTH 15.9 % 11.7-14.4 H (BEAKER) (test code = 412) PLATELET COUNT (BEAKER) (test 134 K/CU MM 150-450 L code = 756) MEAN PLATELET VOLUME (BEAKER) 11.9 fL 9.4-12.3 (test code = 754) NUCLEATED RED BLOOD CELLS 0 /100 WBC 0-0 (BEAKER) (test code = 413) NEUTROPHILS RELATIVE PERCENT 67 % (BEAKER) (test code = 429) LYMPHOCYTES RELATIVE PERCENT 23 % (BEAKER) (test code = 430) MONOCYTES RELATIVE PERCENT 6 % (BEAKER) (test code = 431) EOSINOPHILS RELATIVE PERCENT 2 % (BEAKER) (test code = 432) BASOPHILS RELATIVE PERCENT 1 % (BEAKER) (test code = 437) NEUTROPHILS ABSOLUTE COUNT 4.21 K/ L 1.56-6.13 (BEAKER) (test code = 670) LYMPHOCYTES ABSOLUTE COUNT 1.44 K/ L 1.18-3.74 (BEAKER) (test code = 414) MONOCYTES ABSOLUTE COUNT (BEAKER) 0.39 K/ L 0.24-0.36 H (test code = 415) EOSINOPHILS ABSOLUTE COUNT 0.13 K/ L 0.04-0.36 (BEAKER) (test code = 416) BASOPHILS ABSOLUTE COUNT (BEAKER) 0.05 K/ L 0.01-0.08 (test code = 417) IMMATURE GRANULOCYTES-RELATIVE 0 % 0-1 PERCENT (BEAKER) (test code = 2801) RAD, HAND, 2 VIEWS, [id number] 13:22:00Referring: JUAN Alvares for Exam:->m79.641Reason for Exam:->m79.642FINAL REPORT Exam: Right and left hand three views each History: Pain Venkatesh rison: None. Findings: No fracture or malalignment. Bone demineralization. Narrowing of the interphalangeal joints and first carpometacarpal joint. No abnormal soft tissue calcification or soft tissue defect. Impression: No acute osseous abnormality Osteoarthrosis of the interphalangeal and first car pometacarpal joint Signed: Benjy Sanchezort Verified Date/Time: 11/10/2018 13:22:55 RAD, HAND, 2 VIEWS, [id number] 13:22:00Referring: Shawnee Alvares for Exam:->m79.641Reason for Exam:->m79.642FINAL REPORT Exam: Right and left hand three views each History: Pain Venkatesh rison: None. Findings: No fracture or malalignment. Bone demineralization. Narrowing of the interphalangeal joints and first carpometacarpal joint. No abnormal soft tissue calcification or soft tissue defect. Impression: No acute osseous abnormality Osteoarthrosis of the interphalangeal and first car pometacarpal joint Signed: Benjy Sanchez MDReport Verified Date/Time: 11/10/2018 13:22:55 CT ABD/PEL WITH [id number]-[id number] 22:26:00 [place] [address] Patient Name: MARLYS GARNETT MR #: [id number] : 1965 Age/Sex: 53/F Req #: [id number] Adm Physician: Ordered by: LILA ESCALANTE MD Report #: [id number] Location: [facility] Room/Bed: Procedure: [id number] HOPD/CT ABD/PEL WITH CONTRAST-HOPD Exam Date: 09/27/18 Exam Time: 2143 REPORT STATUS: Signed EXAM: CT ABD/PEL WITH CONTRAST-HOPD DATE: [...] COPY TO: LILA ESCALANTE V MDCT ABDOMEN/PELVIS [id number] 16:21:00 [place] [address] Patient Name: MARLYS GARNETT MR #: [id number] : 1965 Age/Sex: 53/F Req #: [id number] Adm Physician: Ordered by: AMBER GOMES MD Report #: [id number] Location: ER Room/Bed: Procedure: [id number] CT/CT ABDOMEN/PELVIS W Exam Date: Exam Time: [...] and fecal material in the rectosigmoid region. VE SSELS: Moderate atherosclerotic changes including the coronary arteries. IVC filter. PERITONEUM/RETROPERITONEUM: Persistent mild mesenteric edema and trace ascites adjacent to the inferior liver. LYMPH NODES: No lymphadenopathy REPRODUCTIVE ORGANS: Not visualized BLADDER: Decompressed,which limits evaluation. SOFT TISSUES: Unremarkable BONES: No suspicious bone lesions. IMPRESSION: 1. Findings remain consistent with early cirrhosis and portal hypertension. 2. Postsurgical changes within the abdomen and pelvis and one small segment of stable small bowel stasis, the stability suggests postsurgical stasis/mild chronic low-grade mechanical obstruction. If there i s concern for developing/increasing bowel obstruction, advise serial abdominal radiographs. 3. Stable 3 mm nonobstructing left renal stone. Signed by: Dr. Dio Bocanegra D.O., M.M.M. on 07/14/2018 4:42 PM Dictated By: DIO BOCANEGRA DO 41 Transcribed By: GAYATRI on 07/14/181641 COPY TO: AMBER GOMES MD Creatine Kinase [id number] 15:15:00 Test Item Value Reference Range Interpretation Comments Creatine Kinase MB (test code = 0.30 0-5.0 12506-1) [place] [id number] 15:15:00 Test Item Value Reference Range Interpretation Comments Troponin I (test code = BVA0140) -0.001 0-0.[address] [facility] CenterThyroid Stimulating Hormone (TSH) 2018-07-14 15:15:00 Test Item Value Reference Range Interpretation Comments Thyroid Stimulating Hormone (TSH) (test 0.601 0.350-4.940 code = 45355-7) [facility] CenterCreatine Kinase [id number] 15:15:00 Test Item Value Reference Range Interpretation Comments Creatine Kinase MB (test code = 0.30 0-5.0 88132-3) [place] [id number] 15:15:00 Test Item Value Reference Range Interpretation Comments Troponin I (test code = DEK7887) < 0.001 0-0.[address] [facility] CenterThyroid Stimulating Hormone (TSH) 2018-07-14 15:15:00 Test Item Value Reference Range Interpretation Comments Thyroid Stimulating Hormone (TSH) (test 0.601 0.350-4.940 code = 20588-3) [facility] CenterCreatine Kinase [id number] 15:15:00 Test Item Value Reference Range Interpretation Comments Creatine Kinase MB (test code = 0.30 0-5.0 49792-9) [place] [id number] 15:15:00 Test Item Value Reference Range Interpretation Comments Troponin I (test code = MQI0286) < 0.001 0-0.[address] [facility] CenterThyroid Stimulating Hormone (TSH) 2018-07-14 15:15:00 Test Item Value Reference Range Interpretation Comments Thyroid Stimulating Hormone (TSH) (test 0.601 0.350-4.940 code = 46286-7) [facility] CenterCreatine Kinase [id number] 15:15:00 Test Item Value Reference Range Interpretation Comments Creatine Kinase MB (test code = 0.30 0-5.0 45756-5) [facility] CenterTroponin [id number] 15:15:00 Test Item Value Reference Range Interpretation Comments Troponin I (test code = BMY1251) < 0.001 0-0.[address] [facility] CenterThyroid Stimulating Hormone (TSH) 2018-07-14 15:15:00 Test Item Value Reference Range Interpretation Comments Thyroid Stimulating Hormone (TSH) (test 0.601 0.350-4.940 code = 56341-1) [facility] CenterTotal [id number] 15:02:00 Test Item Value Reference Range Interpretation Comments Total Bilirubin (test code = 1975-2) 1.5 0.2-1.2 H [facility] [id number] 15:02:00 Test Item Value Reference Range Interpretation Comments Total Bilirubin (test code = 1975-2) 1.5 0.2-1.2 H [facility]odium [id number] 14:52:00 Test Item Value Reference Range Interpretation Comments Sodium Level (test code = 2951-2) 140 136-[address] [facility] [facility] CenterPotassium [id number] 14:52:00 Test Item Value Reference Range Interpretation Comments Potassium Level (test code = 2823-3) 4.3 3.5-5.[address] CenterChloride [id number] 14:52:00 Test Item Value Reference Range Interpretation Comments Chloride Level (test code = 2075-0) 105 98-[address] [facility] CenterCarbon Dioxide [id number] 14:52:00 Test Item Value Reference Range Interpretation Comments Carbon Dioxide Level (test code = 23 22-29 2027-9) [facility] CenterAnion [id number] 14:52:00 Test Item Value Reference Range Interpretation Comments Anion Gap (test code = 32553-3) 16.3 8-[address] [facility] CenterBlood Urea [id number] 14:52:00 Test Item Value Reference Range Interpretation Comments Blood Urea Nitrogen (test code = 05-05 3094-0) [facility] CenterCreatinine2018-10-04 14:52:00 Test Item Value Reference Range Interpretation Comments Creatinine (test code = 2160-0) 0.90 0.57-1.[address] [facility] CenterBUN/Creatinine [id number] 14:52:00 Test Item Value Reference Range Interpretation Comments BUN/Creatinine Ratio (test code = 04-04 3097-3) [facility] CenterEstimat Glomerular Filtration Rate 2018-07-14 14:52:00 Test Item Value Reference Range Interpretation Comments Estimat Glomerular Filtration Rate 60- >60 (test code = 358936417) Ranges were taken from the National Kidney Disease Education Program and the National Kid[employer] Foundation literature.Reference ranges:60 or greater: Myauob82- 59 (for 3 consecutive months): Chronic kidneydisease 15 or less: Kidney failure [facility] CenterGlucose [id number] 14:52:00 Test Item Value Reference Range Interpretation Comments Glucose Level (test code = TAD5804) 184 74-[address] [facility] CenterCalcium [id number] 14:52:00 Test Item Value Reference Range Interpretation Comments Calcium Level (test code = 29909-1) 10.2 8.4-10.[address] [facility] [facility] CenterMagnesium [id number] 14:52:00 Test Item Value Reference Range Interpretation Comments Magnesium Level (test code = 36071-7) 1.8 1.3-2.[address] [facility] CenterAspartate Amino Transf (AST/SGOT) 2018-07-14 14:52:00 Test Item Value Reference Range Interpretation Comments Aspartate Amino Transf (AST/SGOT) (test 63 5-34 H code = Aspartate Amino Transf (AST/SGOT)) [facility] CenterAlanine Aminotransferase (ALT/SGPT) 2018-07-14 14:52:00 Test Item Value Reference Range Interpretation Comments Alanine Aminotransferase (ALT/SGPT) 38 0-55 (test code = 1742-6) [facility] CenterTotal [id number] 14:52:00 Test Item Value Reference Range Interpretation Comments Total Protein (test code = 2885-2) 8.7 6.5-8.[address] [facility] [facility] CenterAlbumin2018-10-04 14:52:00 Test Item Value Reference Range Interpretation Comments Albumin (test code = 1751-7) 3.8 3.5-5.[address] [facility] CenterGlobulin2018-10-04 14:52:00 Test Item Value Reference Range Interpretation Comments Globulin (test code = 37025-9) 4.9 2.3-3.[address] [facility] CenterAlbumin/Globulin Vyxeo8595-46-45 14:52:00 Test Item Value Reference Range Interpretation Comments Albumin/Globulin Ratio (test code = 0.8 0.8-2.0 1759-0) [facility] CenterAlkaline Sjnkepouvnx0335-83-55 14:52:00 Test Item Value Reference Range Interpretation Comments Alkaline Phosphatase (test code = 103 40-150 6768-6) [facility] CenterCreatine [id number] 14:52:00 Test Item Value Reference Range Interpretation Comments Creatine Kinase (test code = 2157-6) 37 29-[address] [facility] CenterAmylase Mlgny9551-39-18 14:52:00 Test Item Value Reference Range Interpretation Comments Amylase Level (test code = 1798-8) 63 25-[address] CenterLipase2018-10-04 14:52:00 Test Item Value Reference Range Interpretation Comments Lipase (test code = 3040-3) 40 8-78 [facility]odium Dljxe8290-84-43 14:52:00 Test Item Value Reference Range Interpretation Comments Sodium Level (test code = 2951-2) 140 136-[address] [facility] CenterPotassium Kqtam6778-08-55 14:52:00 Test Item Value Reference Range Interpretation Comments Potassium Level (test code = 2823-3) 4.3 3.5-5.[address] CenterChloride Ccgbi1940-94-19 14:52:00 Test Item Value Reference Range Interpretation Comments Chloride Level (test code = 2075-0) 105 98-[address] [facility] CenterCarbon Dioxide Garoo0011-57-87 14:52:00 Test Item Value Reference Range Interpretation Comments Carbon Dioxide Level (test code = 23 22-29 8-9) [facility] CenterAnion [id number] 14:52:00 Test Item Value Reference Range Interpretation Comments Anion Gap (test code = 39689-7) 16.3 8-[address] [facility] CenterBlood Urea Riazbbyh8552-72-46 14:52:00 Test Item Value Reference Range Interpretation Comments Blood Urea Nitrogen (test code = 05-05 3094-0) [facility] CenterCreatinine2018-10-04 14:52:00 Test Item Value Reference Range Interpretation Comments Creatinine (test code = 2160-0) 0.90 0.57-1.[address] [facility] CenterBUN/Creatinine [id number] 14:52:00 Test Item Value Reference Range Interpretation Comments BUN/Creatinine Ratio (test code = 04-04 3097-3) [facility] CenterEstimat Glomerular Filtration Rate 2018-07-14 14:52:00 Test Item Value Reference Range Interpretation Comments Estimat Glomerular Filtration Rate > 60 >60 (test code = 367454618) Ranges were taken from the National Kidney Disease Education Program and the National Kid[employer] Foundation literature.Reference ranges:60 or greater: Ysdmuz67- 59 (for 3 consecutive months): Chronic kidneydisease 15 or less: Kidney failure [facility] CenterGlucose Xkldq2164-93-44 14:52:00 Test Item Value Reference Range Interpretation Comments Glucose Level (test code = PQG5759) 184 74-[address] [facility] CenterCalcium Osyzh5856-80-89 14:52:00 Test Item Value Reference Range Interpretation Comments Calcium Level (test code = 33284-0) 10.2 8.4-10.[address] CenterMagnesium Xvcgr4702-88-03 14:52:00 Test Item Value Reference Range Interpretation Comments Magnesium Level (test code = 01454-2) 1.8 1.3-2.[address] CenterAspartate Amino Transf (AST/SGOT) 2018-07-14 14:52:00 Test Item Value Reference Range Interpretation Comments Aspartate Amino Transf (AST/SGOT) (test 63 5-34 H code = Aspartate Amino Transf (AST/SGOT)) [facility] CenterAlanine Aminotransferase (ALT/SGPT) 2018-07-14 14:52:00 Test Item Value Reference Range Interpretation Comments Alanine Aminotransferase (ALT/SGPT) 38 0-55 (test code = 1742-6) [facility] CenterTotal Anexpvw8163-37-07 14:52:00 Test Item Value Reference Range Interpretation Comments Total Protein (test code = 2885-2) 8.7 6.5-8.[address] CenterAlbumin2018-10-04 14:52:00 Test Item Value Reference Range Interpretation Comments Albumin (test code = 1751-7) 3.8 3.5-5.[address] [facility] CenterGlobulin2018-10-04 14:52:00 Test Item Value Reference Range Interpretation Comments Globulin (test code = 80014-4) 4.9 2.3-3.[address] CenterAlbumin/Globulin [id number] 14:52:00 Test Item Value Reference Range Interpretation Comments Albumin/Globulin Ratio (test code = 0.8 0.8-2.0 1759-0) [facility] CenterAlkaline Zgbpcxedyvo2707-43-89 14:52:00 Test Item Value Reference Range Interpretation Comments Alkaline Phosphatase (test code = 103 40-150 6768-6) [facility] CenterCreatine Gytlgr1647-74-36 14:52:00 Test Item Value Reference Range Interpretation Comments Creatine Kinase (test code = 2157-6) 37 29-[address] CenterAmylase [id number] 14:52:00 Test Item Value Reference Range Interpretation Comments Amylase Level (test code = 1798-8) 63 25-[address] CenterLipase2018-10-04 14:52:00 Test Item Value Reference Range Interpretation Comments Lipase (test code = 3040-3) [address] [facility] CenterMagnesium Hypsg8016-24-75 14:52:00 Test Item Value Reference Range Interpretation Comments Magnesium Level (test code = 67047-0) 1.8 1.3-2.[address] CenterCreatine Hgofay4998-21-02 14:52:00 Test Item Value Reference Range Interpretation Comments Creatine Kinase (test code = 2157-6) 37 29-[address] CenterAmylase Pqvte1415-60-68 14:52:00 Test Item Value Reference Range Interpretation Comments Amylase Level (test code = 1798-8) 63 25-[address] CenterLipase2018-10-04 14:52:00 Test Item Value Reference Range Interpretation Comments Lipase (test code = 3040-3) [address] [facility] [facility] CenterMagnesium Cjflb7217-28-89 14:52:00 Test Item Value Reference Range Interpretation Comments Magnesium Level (test code = 36037-9) 1.8 1.3-2.[address] [facility] CenterCreatine Vqktsy4048-24-69 14:52:00 Test Item Value Reference Range Interpretation Comments Creatine Kinase (test code = 2157-6) 37 29-[address] [facility] [facility] CenterAmylase [id number] 14:52:00 Test Item Value Reference Range Interpretation Comments Amylase Level (test code = 1798-8) 63 25-[address] [facility] [facility] CenterLipase2018-10-04 14:52:00 Test Item Value Reference Range Interpretation Comments Lipase (test code = 3040-3) [address] [facility] CenterUrine [id number] 14:41:00 Test Item Value Reference Range Interpretation Comments Urine WBC (test code = 5821-4) 0-5 0-[address] [facility] [facility] CenterUrine [id number] 14:41:00 Test Item Value Reference Range Interpretation Comments Urine RBC (test code = 77760-4) 6-10 0-5 H [facility] [id number] 14:41:00 Test Item Value Reference Range Interpretation Comments Urine Bacteria (test code = 02275-3) FEW NONE [facility] Epithelial Pslfz7568-52-56 14:41:00 Test Item Value Reference Range Interpretation Comments Urine Epithelial Cells (test code = FEW NONE 60078-3) [facility] Amorphous Vqrkjkzq9820-09-05 14:41:00 Test Item Value Reference Range Interpretation Comments Urine Amorphous Sediment (test code = FEW FEW 8246-1) [facility] Wiqcr7568-03-11 14:41:00 Test Item Value Reference Range Interpretation Comments Urine Mucus (test code = 8247-9) FEW RARE H [facility] [id number] 14:41:00 Test Item Value Reference Range Interpretation Comments Urine WBC (test code = 5821-4) 0-5 0-5 [facility] [id number] 14:41:00 Test Item Value Reference Range Interpretation Comments Urine RBC (test code = 96474-5) 6-10 0-5 H [facility] Hxxjgsbq2487-13-28 14:41:00 Test Item Value Reference Range Interpretation Comments Urine Bacteria (test code = 67516-1) FEW NONE [facility] Epithelial Pzohh5195-15-99 14:41:00 Test Item Value Reference Range Interpretation Comments Urine Epithelial Cells (test code = FEW NONE 64324-3) [facility] Amorphous Tugajwfr9973-62-34 14:41:00 Test Item Value Reference Range Interpretation Comments Urine Amorphous Sediment (test code = FEW FEW 8246-1) [facility] Inaae3322-36-29 14:41:00 Test Item Value Reference Range Interpretation Comments Urine Mucus (test code = 8247-9) FEW RARE H [facility] Amorphous Kyrecjem9500-10-31 14:41:00 Test Item Value Reference Range Interpretation Comments Urine Amorphous Sediment (test code = FEW FEW 8246-1) [facility] CenterUrine Lxqfw4599-43-08 14:41:00 Test Item Value Reference Range Interpretation Comments Urine Mucus (test code = 8247-9) FEW RARE H [facility] CenterUrine Amorphous Znkfyxzs2955-63-47 14:41:00 Test Item Value Reference Range Interpretation Comments Urine Amorphous Sediment (test code = FEW FEW 8246-1) [facility] CenterUrine [id number] 14:41:00 Test Item Value Reference Range Interpretation Comments Urine Mucus (test code = 8247-9) FEW RARE H [facility] CenterProthrombin Eoty3343-13-80 14:39:00 Test Item Value Reference Range Interpretation Comments Prothrombin Time (test code = 5902-2) 26.1 11.9-14.[address] [facility] CenterProthromb Time International Ratio 2018-07-14 14:39:00 Test Item Value Reference Range Interpretation Comments Prothromb Time International Ratio 2.20 (test code = 6301-6) Oral Anticoagulant Therapy INR Values:1. Low Intensity Therapy 1.5 - 2.02. Moderate IntensityTherapy 2.0 - 3.03. High Intensity Therapy(1) 2.5 - 3.54. High Intensity Therapy(2) 3.0 - 4.05. Panic Value INR > 5.0[facility] CenterActivated Partial Thromboplast Time 2018-07-14 14:39:00 Test Item Value Reference Range Interpretation Comments Activated Partial Thromboplast Time 44.8 23.8-35.5 H (test code = 06770-1) [facility] CenterProthrombin [id number] 14:39:00 Test Item Value Reference Range Interpretation Comments Prothrombin Time (test code = 5902-2) 26.1 11.9-14.[address] [facility] CenterProthromb Time International Ratio 2018-07-14 14:39:00 Test Item Value Reference Range Interpretation Comments Prothromb Time International Ratio 2.20 (test code = 6301-6) Oral Anticoagulant Therapy INR Values:1. Low Intensity Therapy 1.5 - 2.02. Moderate IntensityTherapy 2.0 - 3.03. High Intensity Therapy(1) 2.5 - 3.54. High Intensity Therapy(2) 3.0 - 4.05. Panic Value INR > 5.0[facility] CenterActivated Partial Thromboplast Time 2018-07-14 14:39:00 Test Item Value Reference Range Interpretation Comments Activated Partial Thromboplast Time 44.8 23.8-35.5 H (test code = 56412-5) [facility] CenterProthrombin [id number] 14:39:00 Test Item Value Reference Range Interpretation Comments Prothrombin Time (test code = 5902-2) 26.1 11.9-14.[address] [facility] CenterProthromb Time International Ratio 2018-07-14 14:39:00 Test Item Value Reference Range Interpretation Comments Prothromb Time International Ratio 2.20 (test code = 6301-6) Oral Anticoagulant Therapy INR Values:1. Low Intensity Therapy 1.5 - 2.02. Moderate IntensityTherapy 2.0 - 3.03. High Intensity Therapy(1) 2.5 - 3.54. High Intensity Therapy(2) 3.0 - 4.05. Panic Value INR > 5.0[facility] CenterActivated Partial Thromboplast Time 2018-07-14 14:39:00 Test Item Value Reference Range Interpretation Comments Activated Partial Thromboplast Time 44.8 23.8-35.5 H (test code = 33067-6) [facility] CenterProthrombin [id number] 14:39:00 Test Item Value Reference Range Interpretation Comments Prothrombin Time (test code = 5902-2) 26.1 11.9-14.[address] [facility] CenterProthromb Time International Ratio 2018-07-14 14:39:00 Test Item Value Reference Range Interpretation Comments Prothromb Time International Ratio 2.20 (test code = 6301-6) Oral Anticoagulant Therapy INR Values:1. Low Intensity Therapy 1.5 - 2.02. Moderate IntensityTherapy 2.0 - 3.03. High Intensity Therapy(1) 2.5 - 3.54. High Intensity Therapy(2) 3.0 - 4.05. Panic Value INR > 5.0[facility] CenterActivated Partial Thromboplast Time 2018-07-14 14:39:00 Test Item Value Reference Range Interpretation Comments Activated Partial Thromboplast Time 44.8 23.8-35.5 H (test code = 71339-6) [facility] CenterUrine [id number] 14:35:00 Test Item Value Reference Range Interpretation Comments Urine Color (test code = 5778-6) YELLOW YELLOW [facility] CenterUrine [id number] 14:35:00 Test Item Value Reference Range Interpretation Comments Urine Clarity (test code = 88310-1) SL CLOUDY CLEAR [facility] CenterUrine Specific Khrfazy1586-24-20 14:35:00 Test Item Value Reference Range Interpretation Comments Urine Specific [place] (test code = 1.025 1.010-1.025 5811-5) [facility] CenterUrine [id number] 14:35:00 Test Item Value Reference Range Interpretation Comments Urine pH (test code = 49409-0) 6 5-[address] [facility] CenterUrine Leukocyte [id number] 14:35:00 Test Item Value Reference Range Interpretation Comments Urine Leukocyte Esterase (test code NEGATIVE NEGATIVE = 5799-2) [facility] CenterUrine [id number] 14:35:00 Test Item Value Reference Range Interpretation Comments Urine Nitrite (test code = 75063-3) NEGATIVE NEGATIVE [facility] CenterUrine [id number] 14:35:00 Test Item Value Reference Range Interpretation Comments Urine Protein (test code = 5804-0) NEGATIVE NEGATIVE [facility] CenterUrine Glucose (UA)2018-07-14 14:35:00 Test Item Value Reference Range Interpretation Comments Urine Glucose (UA) (test code = 2349-9) 3+ NEGATIVE H [facility] CenterUrine [id number] 14:35:00 Test Item Value Reference Range Interpretation Comments Urine Ketones (test code = 17142-4) TRACE NEGATIVE H [facility] CenterUrine [id number] 14:35:00 Test Item Value Reference Range Interpretation Comments Urine Urobilinogen (test code = 0.2 0.2-1 70573-9) [facility] CenterUrine Kcqkfgnmf1543-38-50 14:35:00 Test Item Value Reference Range Interpretation Comments Urine Bilirubin (test code = 1978-6) NEGATIVE NEGATIVE [facility] [id number] 14:35:00 Test Item Value Reference Range Interpretation Comments Urine Blood (test code = 90239-3) TRACE NEGATIVE H [facility] CenterUrine Vnyqr8438-50-92 14:35:00 Test Item Value Reference Range Interpretation Comments Urine Color (test code = 5778-6) YELLOW YELLOW [facility] CenterUrine Mlgzkve8103-79-31 14:35:00 Test Item Value Reference Range Interpretation Comments Urine Clarity (test code = 01000-6) SL CLOUDY CLEAR [facility] CenterUrine Specific [id number] 14:35:00 Test Item Value Reference Range Interpretation Comments Urine Specific [place] (test code = 1.025 1.010-1.025 5811-5) [facility] CenterUrine [id number] 14:35:00 Test Item Value Reference Range Interpretation Comments Urine pH (test code = 21493-3) 6 5-[address] [facility] CenterUrine Leukocyte Iqxvmpny1775-03-93 14:35:00 Test Item Value Reference Range Interpretation Comments Urine Leukocyte Esterase (test code NEGATIVE NEGATIVE = 5799-2) [facility] CenterUrine [id number] 14:35:00 Test Item Value Reference Range Interpretation Comments Urine Nitrite (test code = 47215-6) NEGATIVE NEGATIVE [facility] CenterUrine [id number] 14:35:00 Test Item Value Reference Range Interpretation Comments Urine Protein (test code = 5804-0) NEGATIVE NEGATIVE [facility] CenterUrine Glucose (UA)2018-07-14 14:35:00 Test Item Value Reference Range Interpretation Comments Urine Glucose (UA) (test code = 2349-9) 3+ NEGATIVE H [facility] CenterUrine Krhxorr6522-39-05 14:35:00 Test Item Value Reference Range Interpretation Comments Urine Ketones (test code = 37633-4) TRACE NEGATIVE H [facility] CenterUrine Ljirilftixvr8948-99-83 14:35:00 Test Item Value Reference Range Interpretation Comments Urine Urobilinogen (test code = 0.2 0.2-1 93375-8) [facility] CenterUrine Xltaxykqd2034-60-27 14:35:00 Test Item Value Reference Range Interpretation Comments Urine Bilirubin (test code = 1978-6) NEGATIVE NEGATIVE [facility] CenterUrine Ixohr4958-68-78 14:35:00 Test Item Value Reference Range Interpretation Comments Urine Blood (test code = 36486-1) TRACE NEGATIVE H [facility] CenterWhite Blood [id number] 14:31:00 Test Item Value Reference Range Interpretation Comments White Blood Count (test code = 6690-2) 7.35 4.8-10.[address] [facility] CenterRed Blood Ykiqm2533-45-69 14:31:00 Test Item Value Reference Range Interpretation Comments Red Blood Count (test code = 789-8) 5.00 3.6-5.[address] CenterHemoglobin2018-10-04 14:31:00 Test Item Value Reference Range Interpretation Comments Hemoglobin (test code = 20499-6) 13.2 12.0-16.[address] CenterHematocrit2018-10-04 14:31:00 Test Item Value Reference Range Interpretation Comments Hematocrit (test code = 4544-3) 42.6 34.2-44.[address] [facility] CenterMean Corpuscular Meowik5417-31-11 14:31:00 Test Item Value Reference Range Interpretation Comments Mean Corpuscular Volume (test code = 85.2 81-99 787-2) [facility] CenterMean Corpuscular Cobufkkenl7622-10-60 14:31:00 Test Item Value Reference Range Interpretation Comments Mean Corpuscular Hemoglobin (test code 26.4 28-32 L = 785-6) [facility] CenterMean Corpuscular Hemoglobin Concent 2018-07-14 14:31:00 Test Item Value Reference Range Interpretation Comments Mean Corpuscular Hemoglobin Concent .0 31-35 (test code = 786-4) [facility] CenterRed Cell Distribution [id number] 14:31:00 Test Item Value Reference Range Interpretation Comments Red Cell Distribution Width (test code 18.6 11.7-14.4 H = 86226-3) [facility] CenterPlatelet [id number] 14:31:00 Test Item Value Reference Range Interpretation Comments Platelet Count (test code = 777-3) 160 140-[address] [facility] CenterNeutrophils (%) (Auto)2018-07-14 14:31:00 Test Item Value Reference Range Interpretation Comments Neutrophils (%) (Auto) (test code = 72.5 38.7-80.0 68733-2) [facility] CenterLymphocytes (%) (Auto)2018-07-14 14:31:00 Test Item Value Reference Range Interpretation Comments Lymphocytes (%) (Auto) (test code = 17.7 18.0-39.1 L 736-9) [facility] CenterMonocytes (%) (Auto)2018-07-14 14:31:00 Test Item Value Reference Range Interpretation Comments Monocytes (%) (Auto) (test code = 6.1 4.4-11.3 5905-5) [facility] CenterEosinophils (%) (Auto)2018-07-14 14:31:00 Test Item Value Reference Range Interpretation Comments Eosinophils (%) (Auto) (test code = 2.4 0.0-6.0 713-8) [facility] CenterBasophils (%) (Auto)2018-07-14 14:31:00 Test Item Value Reference Range Interpretation Comments Basophils (%) (Auto) (test code = 1.0 0.0-1.0 706-2) [facility] CenterIM GRANULOCYTES %2018-07-14 14:31:00 Test Item Value Reference Range Interpretation Comments IM GRANULOCYTES % (test code = IM 0.3 0.0-1.0 GRANULOCYTES %) [facility] CenterNeutrophils # (Auto)2018-07-14 14:31:00 Test Item Value Reference Range Interpretation Comments Neutrophils # (Auto) (test code = 5.3 2.1-6.9 751-8) [facility] CenterLymphocytes # (Auto)2018-07-14 14:31:00 Test Item Value Reference Range Interpretation Comments Lymphocytes # (Auto) (test code = 1.3 1.0-3.2 83446-7) [facility] CenterMonocytes # (Auto)2018-07-14 14:31:00 Test Item Value Reference Range Interpretation Comments Monocytes # (Auto) (test code = 742-7) 0.5 0.2-0.[address] [facility] CenterEosinophils # (Auto)2018-07-14 14:31:00 Test Item Value Reference Range Interpretation Comments Eosinophils # (Auto) (test code = 0.2 0.0-0.4 711-2) [facility] CenterBasophils # (Auto)2018-07-14 14:31:00 Test Item Value Reference Range Interpretation Comments Basophils # (Auto) (test code = 704-7) 0.1 0.0-0.[address] [facility] CenterAbsolute Immature Granulocyte (auto 2018-07-14 14:31:00 Test Item Value Reference Range Interpretation Comments Absolute Immature Granulocyte (auto 0.02 0-0.1 (test code = Absolute Immature Granulocyte (auto) [facility] CenterWhite Blood [id number] 14:31:00 Test Item Value Reference Range Interpretation Comments White Blood Count (test code = 6690-2) 7.35 4.8-10.[address] [facility] CenterRed Blood Mpqim4930-18-29 14:31:00 Test Item Value Reference Range Interpretation Comments Red Blood Count (test code = 789-8) 5.00 3.6-5.[address] [facility] CenterHemoglobin2018-10-04 14:31:00 Test Item Value Reference Range Interpretation Comments Hemoglobin (test code = 69521-8) 13.2 12.0-16.[address] [facility] CenterHematocrit2018-10-04 14:31:00 Test Item Value Reference Range Interpretation Comments Hematocrit (test code = 4544-3) 42.6 34.2-44.[address] [facility] [facility] CenterMean Corpuscular [id number] 14:31:00 Test Item Value Reference Range Interpretation Comments Mean Corpuscular Volume (test code = 85.2 81-99 787-2) [facility] CenterMean Corpuscular Sqnofbvelz4900-70-24 14:31:00 Test Item Value Reference Range Interpretation Comments Mean Corpuscular Hemoglobin (test code 26.4 28-32 L = 785-6) [facility] [facility] CenterMean Corpuscular Hemoglobin Concent 2018-07-14 14:31:00 Test Item Value Reference Range Interpretation Comments Mean Corpuscular Hemoglobin Concent 31.0 31-35 (test code = 786-4) [facility] CenterRed Cell Distribution [id number] 14:31:00 Test Item Value Reference Range Interpretation Comments Red Cell Distribution Width (test code 18.6 11.7-14.4 H = 10663-2) [facility] CenterPlatelet [id number] 14:31:00 Test Item Value Reference Range Interpretation Comments Platelet Count (test code = 777-3) 160 140-[address] [facility] CenterNeutrophils (%) (Auto)2018-07-14 14:31:00 Test Item Value Reference Range Interpretation Comments Neutrophils (%) (Auto) (test code = 72.5 38.7-80.0 47078-6) [facility] CenterLymphocytes (%) (Auto)2018-07-14 14:31:00 Test Item Value Reference Range Interpretation Comments Lymphocytes (%) (Auto) (test code = 17.7 18.0-39.1 L 736-9) [facility] CenterMonocytes (%) (Auto)2018-07-14 14:31:00 Test Item Value Reference Range Interpretation Comments Monocytes (%) (Auto) (test code = 6.1 4.4-11.3 5905-5) [facility] CenterEosinophils (%) (Auto)2018-07-14 14:31:00 Test Item Value Reference Range Interpretation Comments Eosinophils (%) (Auto) (test code = 2.4 0.0-6.0 713-8) [facility] CenterBasophils (%) (Auto)2018-07-14 14:31:00 Test Item Value Reference Range Interpretation Comments Basophils (%) (Auto) (test code = 1.0 0.0-1.0 706-2) [facility] CenterIM GRANULOCYTES %2018-07-14 14:31:00 Test Item Value Reference Range Interpretation Comments IM GRANULOCYTES % (test code = IM 0.3 0.0-1.0 GRANULOCYTES %) [facility] CenterNeutrophils # (Auto)2018-07-14 14:31:00 Test Item Value Reference Range Interpretation Comments Neutrophils # (Auto) (test code = 5.3 2.1-6.9 751-8) [facility] CenterLymphocytes # (Auto)2018-07-14 14:31:00 Test Item Value Reference Range Interpretation Comments Lymphocytes # (Auto) (test code = 1.3 1.0-3.2 11172-4) [facility] CenterMonocytes # (Auto)2018-07-14 14:31:00 Test Item Value Reference Range Interpretation Comments Monocytes # (Auto) (test code = 742-7) 0.5 0.2-0.[address] [facility] CenterEosinophils # (Auto)2018-07-14 14:31:00 Test Item Value Reference Range Interpretation Comments Eosinophils # (Auto) (test code = 0.2 0.0-0.4 711-2) [facility] CenterBasophils # (Auto)2018-07-14 14:31:00 Test Item Value Reference Range Interpretation Comments Basophils # (Auto) (test code = 704-7) 0.1 0.0-0.[address] [facility] CenterAbsolute Immature Granulocyte (auto 2018-07-14 14:31:00 Test Item Value Reference Range Interpretation Comments Absolute Immature Granulocyte (auto 0.02 0-0.1 (test code = Absolute Immature Granulocyte (auto) [facility] [id number] 06:44:00 Test Item Value Reference Range Interpretation Comments Bedside Glucose (test code = 21927-2) 171 70-120 H Meter ID: [id number] [facility] Glucose 2018-05-05 06:44:00 Test Item Value Reference Range Interpretation Comments Bedside Glucose (test code = 02464-2) 171 70-120 H Meter ID: [id number] [facility] HospitalFERRITIN2018-07-20 16:47:00 Test Item Value Reference Range Interpretation Comments FERRITIN (BEAKER) (test code = 361) 29 ng/mL 5-275 HEPATITIS B CORE ANTIBODY, [id number] 15:24:00 Test Item Value Reference Range Interpretation Comments HEPATITIS B CORE TOTAL ANTIBODY Reactive Nonreactive A (BEAKER) (test code = 497) HEPATITIS B SURFACE [id number] 15:23:00 Test Item Value Reference Range Interpretation Comments HEPATITIS B SURFACE ANTIBODY 1539.3 mIU/mL <8.0 H (BEAKER) (test code = 647) HEPATITIS A ANTIBODY, [id number] 15:23:00 Test Item Value Reference Range Interpretation Comments HEPATITIS A IGG ANTIBODY (BEAKER) Reactive Nonreactive A (test code = 2797) ALPHA FETOPROTEIN (AFP), TUMOR [id number] 15:20:00 Test Item Value Reference Range Interpretation Comments ALPHA-FETOPROTEIN (BEAKER) (test 3.9 ng/mL <10.0 code = 1094) HEPATITIS B SURFACE [id number] 14:54:00 Test Item Value Reference Range Interpretation Comments HEPATITIS B SURFACE ANTIGEN (2) Nonreactive Nonreactive (BEAKER) (test code = 2585) HEPATITIS C [id number] 14:54:00 Test Item Value Reference Range Interpretation Comments HEPATITIS C ANTIBODY (BEAKER) Nonreactive Nonreactive (test code = 367) IRON, TIBC, % SAT. (WITHOUT FERRITIN)2018-04-29 14:29:00 Test Item Value Reference Range Interpretation Comments IRON (BEAKER) (test code = 547) 46 ug/dL 40-160 TOTAL IRON BINDING CAPACITY 421 ug/dL 250-450 (BEAKER) (test code = 769) IRON % SATURATION (2) (BEAKER) 11 % 20-55 L (test code = 2590) COMPREHENSIVE METABOLIC [id number] 14:21:00 Test Item Value Reference Range Interpretation Comments TOTAL PROTEIN 8.9 gm/dL 6.0-8.3 H (BEAKER) (test code = 770) ALBUMIN (BEAKER) 4.0 g/dL 3.5-5.0 (test code = 1145) ALKALINE PHOSPHATASE 103 U/L 40-150 (BEAKER) (test code = 346) BILIRUBIN TOTAL 1.0 mg/dL 0.2-1.2 (BEAKER) (test code = 377) SODIUM (BEAKER) (test 137 meq/L 136-145 code = 381) POTASSIUM (BEAKER) 4.0 meq/L 3.5-5.1 (test code = 379) CHLORIDE (BEAKER) 105 meq/L 98-107 (test code = 382) CO2 (BEAKER) (test 23 meq/L 22-29 code = 355) BLOOD UREA NITROGEN 16 mg/dL 7-21 (BEAKER) (test code = 354) CREATININE (BEAKER) 0.77 mg/dL 0.57-1.25 (test code = 358) GLUCOSE RANDOM 165 mg/dL 70-105 H (BEAKER) (test code = 652) CALCIUM (BEAKER) 9.8 mg/dL 8.4-10.2 (test code = 697) AST (SGOT) (BEAKER) 85 U/L 5-34 H (test code = 353) ALT (SGPT) (BEAKER) 41 U/L 6-55 (test code = 347) EGFR (BEAKER) (test 78 mL/min/1.73 ESTIMA CHRISTOPHER GFR IS code = 1092) sq m NOT ACCURATE CREATININE CLEARANCE IN PREDICTING GLOMERULAR FILTRATION RATE . ESTIMATED GFR I S NOT APPLICABLE FOR DIALYSIS PATIEN TS. BILIRUBIN, [id number] 14:21:00 Test Item Value Reference Range Interpretation Comments BILIRUBIN DIRECT (BEAKER) (test 0.5 mg/dL 0.1-0.5 code = 706) CBC W/PLT COUNT & AUTO [id number] 14:14:00 Test Item Value Reference Range Interpretation Comments WHITE BLOOD CELL COUNT (BEAKER) 5.9 K/ L 3.5-10.5 (test code = 775) RED BLOOD CELL COUNT (BEAKER) 4.55 M/ L 3.93-5.22 (test code = 761) HEMOGLOBIN (BEAKER) (test code = 10.9 GM/DL 11.2-15.7 L 410) HEMATOCRIT (BEAKER) (test code = 36.7 % 34.1-44.9 411) MEAN CORPUSCULAR VOLUME (BEAKER) 80.7 fL 79.4-94.8 (test code = 753) MEAN CORPUSCULAR HEMOGLOBIN 24.0 pg 25.6-32.2 L (BEAKER) (test code = 751) MEAN CORPUSCULAR HEMOGLOBIN CONC 29.7 GM/DL 32.2-35.5 L (BEAKER) (test code = 752) RED CELL DISTRIBUTION WIDTH 16.2 % 11.7-14.4 H (BEAKER) (test code = 412) PLATELET COUNT (BEAKER) (test 144 K/CU MM 150-450 L code = 756) MEAN PLATELET VOLUME (BEAKER) 12.6 fL 9.4-12.3 H (test code = 754) NUCLEATED RED BLOOD CELLS 0 /100 WBC 0-0 (BEAKER) (test code = 413) NEUTROPHILS RELATIVE PERCENT 68 % (BEAKER) (test code = 429) LYMPHOCYTES RELATIVE PERCENT 22 % (BEAKER) (test code = 430) MONOCYTES RELATIVE PERCENT 6 % (BEAKER) (test code = 431) EOSINOPHILS RELATIVE PERCENT 2 % (BEAKER) (test code = 432) BASOPHILS RELATIVE PERCENT 1 % (BEAKER) (test code = 437) NEUTROPHILS ABSOLUTE COUNT 4.01 K/ L 1.56-6.13 (BEAKER) (test code = 670) LYMPHOCYTES ABSOLUTE COUNT 1.31 K/ L 1.18-3.74 (BEAKER) (test code = 414) MONOCYTES ABSOLUTE COUNT (BEAKER) 0.38 K/ L 0.24-0.36 H (test code = 415) EOSINOPHILS ABSOLUTE COUNT 0.14 K/ L 0.04-0.36 (BEAKER) (test code = 416) BASOPHILS ABSOLUTE COUNT (BEAKER) 0.05 K/ L 0.01-0.08 (test code = 417) IMMATURE GRANULOCYTES-RELATIVE 1 % 0-1 PERCENT (BEAKER) (test code = 2801) CT ABDOMEN/PELVIS [id number] 21:58:00 [facility] [address] [address] Patient Name: MARLYS GARNETT MR #: [id number] : 1965 Age/Sex: 53/F Req #: [id number] Adm Physician: Ordered by: HUGH COELLO MD Report #: [id number] Location: ER Room/Bed: Procedure: [id number] CT/CT ABDOMEN/PELVIS W Exam Date: 03/27/18 Exam [...] set by the Radiation Protocol Committee (RPC). FIN DINGS: LOWER THORAX: No consolidations LIVER: Hepatomegaly with [...] Julia Kumari M.D. on 03/27/2018 10:06 PM Dictated By: JULIA KUMARI MD 05 Transcribed By: GAYATRI on 03/27/182205 COPY TO: HUGH COELLO MDUrine [id number] 21:32:00 Test Item Value Reference Range Interpretation Comments Urine WBC (test code = 5821-4) 11-20 0-[address] [facility] CenterUrine [id number] 21:32:00 Test Item Value Reference Range Interpretation Comments Urine RBC (test code = 58705-7) NONE 0-[address] [facility] CenterUrine [id number] 21:32:00 Test Item Value Reference Range Interpretation Comments Urine Bacteria (test code = 28234-8) MODERATE NONE H [facility] CenterUrine Epithelial [id number] 21:32:00 Test Item Value Reference Range Interpretation Comments Urine Epithelial Cells (test code = MANY NONE 75997-3) [facility] CenterUrine [id number] 21:32:00 Test Item Value Reference Range Interpretation Comments Urine Mucus (test code = 8247-9) MANY RARE H [facility] CenterUrine [id number] 21:15:00 Test Item Value Reference Range Interpretation Comments Urine Color (test code = 5778-6) JULIO C YELLOW H [facility] CenterUrine [id number] 21:15:00 Test Item Value Reference Range Interpretation Comments Urine Clarity (test code = 88411-8) CLEAR CLEAR [facility] CenterUrine Specific [id number] 21:15:00 Test Item Value Reference Range Interpretation Comments Urine Specific [place] (test code = 1.030 1.010-1.025 H 5811-5) [facility] CenterUrine [id number] 21:15:00 Test Item Value Reference Range Interpretation Comments Urine pH (test code = 98316-9) 6 5-[address] [facility] CenterUrine Leukocyte [id number] 21:15:00 Test Item Value Reference Range Interpretation Comments Urine Leukocyte Esterase (test code NEGATIVE NEGATIVE = 5799-2) [facility] CenterUrine [id number] 21:15:00 Test Item Value Reference Range Interpretation Comments Urine Nitrite (test code = 86774-5) NEGATIVE NEGATIVE [facility] CenterUrine [id number] 21:15:00 Test Item Value Reference Range Interpretation Comments Urine Protein (test code = 5804-0) 1+ NEGATIVE H [facility] Glucose (UA)2018-03-27 21:15:00 Test Item Value Reference Range Interpretation Comments Urine Glucose (UA) (test code = NEGATIVE NEGATIVE 2349-9) [facility] [id number] 21:15:00 Test Item Value Reference Range Interpretation Comments Urine Ketones (test code = 27444-9) 1+ NEGATIVE H [facility] [id number] 21:15:00 Test Item Value Reference Range Interpretation Comments Urine Urobilinogen (test code = 1 0.2-1 22409-6) [facility] [id number] 21:15:00 Test Item Value Reference Range Interpretation Comments Urine Bilirubin (test code = 1978-6) 1+ NEGATIVE H [facility] [id number] 21:15:00 Test Item Value Reference Range Interpretation Comments Urine Blood (test code = 98976-9) NEGATIVE NEGATIVE [facility] [id number] 20:22:00 Test Item Value Reference Range Interpretation Comments Sodium Level (test code = 2951-2) 140 136-[address] [facility] CenterPotassium [id number] 20:22:00 Test Item Value Reference Range Interpretation Comments Potassium Level (test code = 2823-3) 3.8 3.5-5.[address] [facility] CenterChloride [id number] 20:22:00 Test Item Value Reference Range Interpretation Comments Chloride Level (test code = 2075-0) 105 98-[address] [facility] CenterCarbon Dioxide [id number] 20:22:00 Test Item Value Reference Range Interpretation Comments Carbon Dioxide Level (test code = 2027-9) [facility] CenterAnion [id number] 20:22:00 Test Item Value Reference Range Interpretation Comments Anion Gap (test code = 79580-2) 13.8 8-[address] [facility] CenterBlood Urea [id number] 20:22:00 Test Item Value Reference Range Interpretation Comments Blood Urea Nitrogen (test code = 05-05 3094-0) [facility] CenterCreatinine2018-06-17 20:22:00 Test Item Value Reference Range Interpretation Comments Creatinine (test code = 2160-0) 0.85 0.57-1.[address] [facility] CenterBUN/Creatinine [id number] 20:22:00 Test Item Value Reference Range Interpretation Comments BUN/Creatinine Ratio (test code = 04-04 3097-3) [facility] CenterEstimat Glomerular Filtration Rate 2018-03-27 20:22:00 Test Item Value Reference Range Interpretation Comments Estimat Glomerular Filtration Rate 60- >60 (test code = 66654-2) Ranges were taken from the National Kidney Disease Education Program and the National Kid[employer] Foundation literature.Reference ranges:60 or greater: Vfdqwb63- 59 (for 3 consecutive months): Chronic kidneydisease 15 or less: Kidney failure [facility] CenterGlucose [id number] 20:22:00 Test Item Value Reference Range Interpretation Comments Glucose Level (test code = AQF3293) 260 74-[address] [facility] CenterCalcium [id number] 20:22:00 Test Item Value Reference Range Interpretation Comments Calcium Level (test code = 95900-9) 9.4 8.4-10.[address] [facility] CenterTotal [id number] 20:22:00 Test Item Value Reference Range Interpretation Comments Total Bilirubin (test code = 1975-2) 0.7 0.2-1.[address] [facility] CenterAspartate Amino Transf (AST/SGOT) 2018-03-27 20:22:00 Test Item Value Reference Range Interpretation Comments Aspartate Amino Transf (AST/SGOT) (test 53 5-34 H code = Aspartate Amino Transf (AST/SGOT)) [facility] CenterAlanine Aminotransferase (ALT/SGPT) 2018-03-27 20:22:00 Test Item Value Reference Range Interpretation Comments Alanine Aminotransferase (ALT/SGPT) 28 0-55 (test code = 1742-6) [facility] CenterTotal [id number] 20:22:00 Test Item Value Reference Range Interpretation Comments Total Protein (test code = 2885-2) 8.1 6.5-8.[address] CenterAlbumin2018-06-17 20:22:00 Test Item Value Reference Range Interpretation Comments Albumin (test code = 1751-7) 3.3 3.5-5.[address] CenterGlobulin2018-06-17 20:22:00 Test Item Value Reference Range Interpretation Comments Globulin (test code = 30361-4) 4.8 2.3-3.[address] [facility] CenterAlbumin/Globulin [id number] 20:22:00 Test Item Value Reference Range Interpretation Comments Albumin/Globulin Ratio (test code = 0.7 0.8-2.0 L 1759-0) [facility] CenterAlkaline [id number] 20:22:00 Test Item Value Reference Range Interpretation Comments Alkaline Phosphatase (test code = 92 40150 6768-6) [facility] CenterWhite Blood [id number] 20:00:00 Test Item Value Reference Range Interpretation Comments White Blood Count (test code = 6690-2) 7.38 4.8-10.[address] [facility] CenterRed Blood [id number] 20:00:00 Test Item Value Reference Range Interpretation Comments Red Blood Count (test code = 789-8) 4.18 3.6-5.[address] [facility] CenterHemoglobin2018-06-17 20:00:00 Test Item Value Reference Range Interpretation Comments Hemoglobin (test code = 94071-2) 10.4 12.0-16.[address] [facility] CenterHematocrit2018-06-17 20:00:00 Test Item Value Reference Range Interpretation Comments Hematocrit (test code = 4544-3) 33.5 34.2-44.[address] [facility] CenterMean Corpuscular [id number] 20:00:00 Test Item Value Reference Range Interpretation Comments Mean Corpuscular Volume (test code = 80.1 81-99 L 787-2) [facility] CenterMean Corpuscular [id number] 20:00:00 Test Item Value Reference Range Interpretation Comments Mean Corpuscular Hemoglobin (test code 24.9 28-32 L = 785-6) [facility] CenterMean Corpuscular Hemoglobin Concent 2018-03-27 20:00:00 Test Item Value Reference Range Interpretation Comments Mean Corpuscular Hemoglobin Concent 31.0 31-35 (test code = 786-4) [facility] CenterRed Cell Distribution [id number] 20:00:00 Test Item Value Reference Range Interpretation Comments Red Cell Distribution Width (test code 17.1 11.7-14.4 H = 76082-5) [facility] CenterPlatelet [id number] 20:00:00 Test Item Value Reference Range Interpretation Comments Platelet Count (test code = 777-3) 163 140-[address] CenterNeutrophils (%) (Auto)2018-03-27 20:00:00 Test Item Value Reference Range Interpretation Comments Neutrophils (%) (Auto) (test code = 74.6 38.7-80.0 58836-5) [facility] CenterLymphocytes (%) (Auto)2018-03-27 20:00:00 Test Item Value Reference Range Interpretation Comments Lymphocytes (%) (Auto) (test code = 16.1 18.0-39.1 L 736-9) [facility] CenterMonocytes (%) (Auto)2018-03-27 20:00:00 Test Item Value Reference Range Interpretation Comments Monocytes (%) (Auto) (test code = 6.8 4.4-11.3 5905-5) [facility] CenterEosinophils (%) (Auto)2018-03-27 20:00:00 Test Item Value Reference Range Interpretation Comments Eosinophils (%) (Auto) (test code = 1.8 0.0-6.0 713-8) [facility] CenterBasophils (%) (Auto)2018-03-27 20:00:00 Test Item Value Reference Range Interpretation Comments Basophils (%) (Auto) (test code = 0.3 0.0-1.0 706-2) [facility] CenterIM GRANULOCYTES %2018-03-27 20:00:00 Test Item Value Reference Range Interpretation Comments IM GRANULOCYTES % (test code = IM 0.4 0.0-1.0 GRANULOCYTES %) [facility] CenterNeutrophils # (Auto)2018-03-27 20:00:00 Test Item Value Reference Range Interpretation Comments Neutrophils # (Auto) (test code = 5.5 2.1-6.9 751-8) [facility] CenterLymphocytes # (Auto)2018-03-27 20:00:00 Test Item Value Reference Range Interpretation Comments Lymphocytes # (Auto) (test code = 1.2 1.0-3.2 30049-2) [facility] CenterMonocytes # (Auto)2018-03-27 20:00:00 Test Item Value Reference Range Interpretation Comments Monocytes # (Auto) (test code = 742-7) 0.5 0.2-0.[address] [facility] CenterEosinophils # (Auto)2018-03-27 20:00:00 Test Item Value Reference Range Interpretation Comments Eosinophils # (Auto) (test code = 0.1 0.0-0.4 711-2) [facility] CenterBasophils # (Auto)2018-03-27 20:00:00 Test Item Value Reference Range Interpretation Comments Basophils # (Auto) (test code = 704-7) 0.0 0.0-0.[address] [facility] CenterAbsolute Immature Granulocyte (auto 2018-03-27 20:00:00 Test Item Value Reference Range Interpretation Comments Absolute Immature Granulocyte (auto 0.03 0-0.1 (test code = Absolute Immature Granulocyte (auto) [facility]
[2021-01-07] MEDS ORDERED: dexAMETHasone 10 MG/ML VIAL ONE (13:23)
[2021-01-07] MEDS ORDERED: NA CHLORIDE 0.9% 500 ML ONE (13:24)
[2021-01-07] MEDS ORDERED: LEVALBUTEROL 1.25 MG/3 ML NEB ONE (13:24)
--- NOTE | 2021-01-07 13:43 | RAD REPORT ---
EXAM DESCRIPTION: [place] Single View01/07/2021 1:14 pm CLINICAL HISTORY: Shortness of breath COMPARISON: none FINDINGS: The lungs appear clear of acute infiltrate. The heart is normal size. The mediastinum is prominent. IMPRESSION: Prominent mediastinum may be secondary to mediastinal fat. Probably less likely lymphade nopathy. PA and lateral chest series recommended
[2021-01-07 14:08] LABS: Absolute Lymphocytes (CBC) 0.8 K/uL (0.7-4.9); Basophils % 0.5 % (0-1.3); Hematocrit 39.9 % (36.0-45.0); Lymphocytes % 17.7 % (15.3-44.8); MPV 9.4 fL (7.6-11.3); Protime INR 1.28; RBC Red Blood Cell Count 4.83 M/uL (3.86-4.86)
[2021-01-07 14:15] LABS: ALT/SGPT 26 U/L (12-78); AST/SGOT 29 U/L (15-37); Albumin 3.6 g/dL (3.4-5.0); Alkaline Phosphatase 100 U/L (45-117); BUN Blood Urea Nitrogen 12 mg/dL (7-18); Bicarbonate 27 mmol/L (21-32); Bilirubin Direct 0.3 mg/dL (0-0.2); Bilirubin Total 1.3 mg/dL (0.2-1.0); Glucose Level 153 mg/dL (74-106); Magnesium 1.7 mg/dL (1.8-2.4); NT PRO-BNP 69 pg/mL (<125); Potassium 3.7 mmol/L (3.5-5.1); Protein, Total 8.5 g/dL (6.4-8.2); Sodium Level 138 mmol/L (136-145); Troponin (Emerg Dept Use Only) < 0.02 ng/mL (0.0-0.045)
[2021-01-07] MEDS ORDERED: NA CHLORIDE 0.9% 250 ML ONE (15:35)
[2021-01-07] MEDS ORDERED: METOCLOPRAMIDE 10 MG/2mL INJ ONE (15:35)
--- NOTE | 2021-01-07 15:54 | RAD REPORT ---
EXAM DESCRIPTION: CT - Chest For Pe Angio - 01/07/2021 3:42 pm CLINICAL HISTORY: Shortness of breath COMPARISON: January 07, 2021 chest x-ray TECHNIQUE: Dynamically enhanced axial 3 mm thick images of the chest were obtained during administra tion of <100> mL Isovue 370 IV contrast. Coronal and oblique reconstruction images were generated and reviewed. Exam utilizes a protocol for optimal evaluation of pulmonary arterial tree. Maximum intensity projections 3D imaging was utilized All CT scans are performed using dose optimization technique as appropriate and may include automated exposure control or mA/KV adjustment according to patient size. FINDINGS: A pulmonary embolus is not seen. A thoracic aortic aneurysm is not noted. Prominent mediastinal fat is present A pleural effusion is not seen. A pericardial effusion is not seen. A lung consolidation is not present. IMPRESSION: Negative for a pulmonary embolism.
--- NOTE | 2021-01-07 16:01 | EDPHYS ---
Physician Documentation [facility] Name: Leslie Thacker Age: 55 yrs Sex: Female : 1965 Arrival Date: 01/07/2021 Time: 12:28 Bed 7 Private MD: ED Physician Mansoor Dumas HPI: 01/07 12:32 This 55 yrs old Female presents to ER via EMS with complaints of low oxygen jmm saturation. 12:32 The patient or guardian reports cough. Onset: The symptoms/episode began/occurred jmm gradually, 6 day(s) ago. Modifying factors: The symptoms are alleviated by nothing. the symptoms are aggravated by nothing. Associated signs and symptoms: Pertinent positives: SOB. This is a 55 year old female with a history of colitis, DM, DVT, IBSD, PE that presents to the ED with complaints of congestion, shortness of breath beginning this past Wednesday. Diagnosed with covid 19. Patient states she has become increasingly sob.. Historical: - Allergies: 12:32 Dilaudid; tw2 12:32 Doxycycline; tw2 12:32 Keflex; tw2 12:32 Hydromorphone; tw2 - PMHx: 12:32 autoimmune hepatitis; Colitis; DM; DVT; IBSD; Pulmonary Embolism; stage 4 cirrhosis; tw2 - PSHx: 12:32 Appendectomy; Hernia repair; ; tw2 - Immunization history:: Adult Immunizations. - Social history:: Smoking status: . ROS: 12:32 Constitutional: Positive for body aches, fever. jmm 12:32 Cardiovascular: 12:32 Respiratory: Positive for cough, shortness of breath. 12:32 All other systems are negative. Exam: 12:32 Constitutional: This is a well developed, well nourished patient who is awake, alert, jmm and in no acute distress. Head/Face: atraumatic. Eyes: EOMI, no conjunctival erythema appreciated ENT: Moist Mucus Membranes Neck: Trachea midline, Supple Chest/axilla: Normal chest wall appearance and motion. Cardiovascular: Regular rate and rhythm. No edema appreciated Respiratory: Normal respirations, no respiratory distress appreciated Abdomen/GI: Non distended, soft Back: Normal ROM Skin: General appearance color normal MS/ Extremity: Moves all extremities, no obvious deformities appreciated, no edema noted to the lower extremities Neuro: Awake and alert, normal gait Psych: Behavior is normal, Mood is normal, Patient is cooperative and pleasant Vital Signs: 12:29 BP 130 / 54; Pulse 83; Resp 17; Temp 98.(O); Pulse Ox 95% on R/A; tw2 13:30 BP 107 / 52; Pulse 80; Resp 19; Pulse Ox 96% on R/A; tw2 14:10 Pulse 98; Pulse Ox 89% on R/A; tw2 15:25 BP 99 / 53; Pulse 87; Resp 17; Pulse Ox 94% on R/A; bp 16:56 BP 117 / 53; Pulse 87; Resp 16; Pulse Ox 94% ; bp 18:01 BP 135 / 83; Pulse 78; Resp 16; Pulse Ox 95% ; bp 19:48 BP 128 / 61; Pulse 70; Resp 18; Temp 98.2; Pulse Ox 98% on 2 lpm NC; ea 14:10 after walking around in room, provider notified, pt placed on o2 via nc at 2 L will tw2 continue to monitor MDM: 12:47 Patient medically screened. [facility] 15:58 Data reviewed: vital signs, nurses notes. Counseling: I had a detailed discussion with [facility] the patient and/or guardian regarding: the historical points, exam findings, and any diagnostic results supporting the discharge/admit diagnosis, lab results, radiology results, the need for further work-up and treatment in the hospital. ED course: I discussed the patient with Dr. Mcnally whom accepted the patient for admission. . 01/07 13:02 Order name: Basic Metabolic Panel [facility] 01/07 13:02 Order name: CBC with Diff [facility] 01/07 13:02 Order name: LFT's [facility] 01/07 13:02 Order name: Magnesium [facility] 01/07 13:02 Order name: NT PRO-BNP; Complete Time: 14:56 [facility] 01/07 13:02 Order name: PT-INR; Complete Time: 14:56 [facility] 01/07 13:02 Order name: Troponin (emerg Dept Use Only); Complete Time: 14:56 [facility] 01/07 13:02 Order name: D-Dimer; Complete Time: 14:56 [facility] 01/07 13:02 Order name: Lactate; Complete Time: 14:56 [facility] 01/07 13:02 Order name: CRP; Complete Time: 14:56 m 01/07 13:02 Order name: Blood Culture Adult (2) [facility] 01/07 13:03 Order name: Basic Metabolic Panel; Complete Time: 14:56 EDMS 01/07 13:03 Order name: CBC with Automated Diff; Complete Time: 14:56 EDMS 01/07 13:03 Order name: Liver (Hepatic) Function; Complete Time: 14:56 EDMS 01/07 13:02 Order name: XRAY Chest (1 view); Complete Time: 13:55 m 01/07 13:02 Order name: EKG; Complete Time: 13:03 m 01/07 13:02 Order name: Cardiac monitoring; Complete Time: 13:39 [facility] 01/07 13:02 Order name: IV Saline Lock; Complete Time: 13:39 [facility] 01/07 13:02 Order name: Labs collected and sent; Complete Time: 13:39 [facility] 01/07 13:02 Order name: O2 Per Protocol; Complete Time: 13:39 [facility] 01/07 13:02 Order name: O2 Sat Monitoring; Complete Time: 13:39 [facility] 01/07 13:03 Order name: Magnesium; Complete Time: 14:56 EDMS 01/07 14:57 Order name: CT Chest For PE Angio; Complete Time: 15:54 jmm 01/07 15:58 Order name: Ferritin; Complete Time: 20:20 jmm Administered Medications: 13:30 Drug: NS 0.9% 500 ml Route: IV; Rate: bolus; Site: right forearm; bp 19:49 Follow up: Response: No adverse reaction; IV Status: Completed infusion; IV Intake: ea 500ml 13:30 Drug: Decadron - Dexamethasone 10 mg Route: IVP; Site: right forearm; bp 15:24 Follow up: Response: No adverse reaction bp 13:30 Drug: Xopenex (3) 1.25 mg Route: Inhalation; bp 15:24 Drug: Reglan 10 mg Route: IVP; Site: right forearm; bp 19:49 Follow up: Response: No adverse reaction ea Disposition: 01/07/21 16:00 Hospitalization ordered by Jason Mcnally for Observation. Preliminary diagnosis are Coronavirus infection, unspecified, Hypoxia. - Bed requested for Telemetry/MedSurg (observation). - Status is Observation. ea - Condition is Stable. - Problem is new. - Symptoms are unchanged. Addendum: 01/10/2021 15:38 Co-signature as Attending Physician, Mansoor Dumas MD. m a2 Signatures: Dispatcher [employer] EDMS Анна Tucker, RN RN Haja Cervantes PA PA [facility] Corinne Rosales, RN RN tw2 Britni Hardin RN Shade Alberto ea, RN RN Mansoor Dumas MD MD ma2 Corrections: (The following items were deleted from the chart) 01/07 18:53 16:00 Hospitalization Ordered by Jason Mcnally MD for Observation. Preliminary mw diagnosis is Coronavirus infection, unspecified; Hypoxia. Bed requested for Telemetry/MedSurg (observation). Status is Observation. Condition is Stable. Problem is new. Symptoms are unchanged. [facility] 19:59 18:53 01/07/2021 16:00 Hospitalization Ordered by Jason Mcnally MD for Observation. ea Preliminary diagnosis is Coronavirus infection, unspecified; Hypoxia. Bed requested for Telemetry/MedSurg (observation). Status is Observation. Condition is Stable. Problem is new. Symptoms are unchanged.
--- NOTE | 2021-01-07 16:01 | ER ---
Nurse's Notes [facility] Name: Leslie Thacker Age: 55 yrs Sex: Female : 1965 Arrival Date: 01/07/2021 Time: 12:28 Bed 7 Private MD: Diagnosis: Coronavirus infection, unspecified;Hypoxia Presentation: 01/07 12:29 Chief complaint: EMS states: pt said she has low oxygen, said she called her DrFrannie and he tw2 told her to come to [facility] but we dont go that far, so we brought her here, vs stable, we got 95% on RA, tested POSITIVE for Covid 01/03/2021. Coronavirus screen: Client presents with at least one sign or symptom that may indicate coronavirus-19. Standard/surgical mask placed on the client. Provider contacted for isolation considerations. Ebola Screen: Patient denies travel to an Ebola-affected area in the 21 days before illness onset. Initial Sepsis Screen: Does the patient meet any 2 criteria? No. Patient's initial sepsis screen is negative. Does the patient have a suspected source of infection? No. Patient's initial sepsis screen is negative. Risk Assessment: Do you want to hurt yourself or someone else? Patient reports no desire to harm self or others. Onset of symptoms was January 07, 2021. 12:29 Method Of Arrival: EMS: [facility] tw2 12:29 Acuity: BRADEN 3 tw2 Triage Assessment: 12:32 General: Appears in no apparent distress. obese, Behavior is calm, cooperative, tw2 appropriate for age. Pain: Denies pain. EENT: No signs and/or symptoms were reported regarding the EENT system. Neuro: Level of Consciousness is awake, alert, obeys commands, Oriented to person, place, time, situation. Cardiovascular: Capillary refill < 3 seconds Patient's skin is warm and dry. Respiratory: Airway is patent Respiratory effort is even, unlabored, Respiratory pattern is regular, symmetrical. GI: No signs and/or symptoms were reported involving the gastrointestinal system. Abdomen is round obese. : No signs and/or symptoms were reported regarding the genitourinary system. Derm: No signs and/or symptoms reported regarding the dermatologic system. Musculoskeletal: Range of motion: intact in all extremities. Historical: - Allergies: 12:32 Dilaudid; tw2 12:32 Doxycycline; tw2 12:32 Keflex; tw2 12:32 Hydromorphone; tw2 - PMHx: 12:32 autoimmune hepatitis; Colitis; DM; DVT; IBSD; Pulmonary Embolism; stage 4 cirrhosis; tw2 - PSHx: 12:32 Appendectomy; Hernia repair; ; tw2 - Immunization history:: Adult Immunizations. - Social history:: Smoking status: . Screenin:33 Abuse screen: Denies threats or abuse. Nutritional screening: No deficits noted. tw2 Tuberculosis screening: No symptoms or risk factors identified. Fall Risk None identified. Assessment: 12:33 Reassessment: see triage assessment. tw2 14:12 Reassessment: Patient appears in no apparent distress at this time. No changes from tw2 previously documented assessment. Patient and/or family updated on plan of care and expected duration. Pain level reassessed. Patient is alert, oriented x 3, equal unlabored respirations, skin warm/dry/pink. 15:28 Reassessment: No changes from previously documented assessment. Patient and/or family bp updated on plan of care and expected duration. Pain level reassessed. Patient is alert, oriented x 3, equal unlabored respirations, skin warm/dry/pink. CT PENDING. 16:56 Reassessment: No changes from previously documented assessment. Patient and/or family bp updated on plan of care and expected duration. Pain level reassessed. Patient is alert, oriented x 3, equal unlabored respirations, skin warm/dry/pink. ADMIT IN PROCESS. 18:01 Reassessment: No changes from previously documented assessment. Patient and/or family bp updated on plan of care and expected duration. Pain level reassessed. Patient is alert, oriented x 3, equal unlabored respirations, skin warm/dry/pink. ADMIT IN PROCESS. Vital Signs: 12:29 BP 130 / 54; Pulse 83; Resp 17; Temp 98.(O); Pulse Ox 95% on R/A; tw2 13:30 BP 107 / 52; Pulse 80; Resp 19; Pulse Ox 96% on R/A; tw2 14:10 Pulse 98; Pulse Ox 89% on R/A; tw2 15:25 BP 99 / 53; Pulse 87; Resp 17; Pulse Ox 94% on R/A; bp 16:56 BP 117 / 53; Pulse 87; Resp 16; Pulse Ox 94% ; bp 18:01 BP 135 / 83; Pulse 78; Resp 16; Pulse Ox 95% ; bp 19:48 BP 128 / 61; Pulse 70; Resp 18; Temp 98.2; Pulse Ox 98% on 2 lpm NC; ea 14:10 after walking around in room, provider notified, pt placed on o2 via nc at 2 L will tw2 continue to monitor ED Course: 12:28 Patient arrived in ED. tw2 12:30 Bed in low position. Call light in reach. customer advisor specialist on. Pulse ox on. NIBP on. tw2 12:31 Triage completed. tw2 12:32 Arm band placed on. tw2 12:35 Haja Cervantes PA is PHCP. [facility] 12:35 Mansoor Dumas MD is Attending Physician. jmm 12:49 Shade Cunha, MARV is Primary Nurse. bp 13:12 XRAY Chest (1 view) In Process Unspecified. EDMS 13:30 Inserted saline lock: 20 gauge in right forearm, using aseptic technique. Blood bp collected. 15:41 CT Chest For PE Angio In Process Unspecified. EDMS 16:00 Jason Mcnally MD is Hospitalizing Provider. [facility] 19:35 No provider procedures requiring assistance completed. Patient admitted, IV remains in ea place. Administered Medications: 13:30 Drug: NS 0.9% 500 ml Route: IV; Rate: bolus; Site: right forearm; bp 19:49 Follow up: Response: No adverse reaction; IV Status: Completed infusion; IV Intake: ea 500ml 13:30 Drug: Decadron - Dexamethasone 10 mg Route: IVP; Site: right forearm; bp 15:24 Follow up: Response: No adverse reaction bp 13:30 Drug: Xopenex (3) 1.25 mg Route: Inhalation; bp 15:24 Drug: Reglan 10 mg Route: IVP; Site: right forearm; bp 19:49 Follow up: Response: No adverse reaction ea Intake: 19:49 IV: 500ml; Total: 500ml. ea Outcome: 16:00 Decision to Hospitalize by Provider. m 19:35 Instructed on the need for admit. ea 19:58 Admitted to Med/surg accompanied by tech, via wheelchair, room 406, with chart, Report ea called to Receiving nurse on fourth 19:58 Condition: stable 19:59 Patient left the ED. ea Signatures: Dispatcher [employer] EDMS Haja Cervantes PA PA jmm Wise, Tara RN RN tw2 Britni Hardin, RN RN Shade Newell RN RN bp Corrections: (The following items were deleted from the chart) 14:12 14:10 Pulse 98bpm; Pulse Ox 89% RA; after walking around in room, provider notified; tw2tw2
--- NOTE | 2021-01-07 17:08 | P.HP ---
Certification for Inpatient Patient admitted to: Observation With expected LOS: <2 Midnights Practitioner: I am a practitioner with admitting privileges, knowledge of patient current condition, hospital course, and medical plan of care. Services: Services provided to patient in accordance with Admission requirements found in Title 42 Section 412.3 of the Code of Federal Regulations Patient History Date of Service: 01/07/21 Reason for admission: COVID-19 hypoxia History of Present Illness: 55-year-old female, PMH: Autoimmune hepatitis/stage IV cirrhosis, insulin- dependent DM 2, IBS D, history of PE/DVT, gastroparesis. Patient presents with progressively worsening shortness of breath and cough over the past 6 days. Associated with diarrhea, loss of smell and taste, nausea. Denies chest pain, no vomiting, no lower extremity swelling or tenderness. Multiple family members have tested positive for COVID in the last week. In the ED, she was noted to be hypoxic in the mid 80s with mild ambulation. CXR and CTA chest were negative for acute pulmonary process/opacities, negative for PE. Labwork notable for an elevated D-dimer of 736, negative lactic acid, elevated CRP: 12.6. Allergies hydromorphone [From Dilaudid] Allergy (Verified 11/11/20 17:10) Itching - Past Medical/Surgical History -: Appendectomy -: Hernia repair -: Cholecystectomy -: half bladder removed - Family History Family History: Reviewed- Non-Contributory - Social History Smoking Status: Former smoker (Quit 2013) Alcohol use: No Place of Residence: Home Review of Systems 10-point ROS is otherwise unremarkable Physical Examination - Studies Laboratory Data (last 24 hrs) 01/07/21 13:30: PT 14.8 H, INR 1.28 01/07/21 13:30: WBC 4.60, Hgb 13.3, Hct 39.9, Plt Count 104 L 01/07/21 13:15: Sodium 138, Potassium 3.7, BUN 12, Creatinine 0.76, Glucose 153 H, Magnesium 1.7 L, Total Bilirubin 1.3 H, AST 29, ALT 26, Alkaline Phosphatase 100 Assessment and Plan - Advance Directives Does patient have a Living Will: No Does patient have a Durable POA for Healthcare: No Physician Review Additional Text: Physical exam: Gen: mild distress, appears ill, AAOx3 HEENT: Normal conjunctiva, sclerae anicteric Pulm: Diminished bilaterally at bases, poor inspiratory effort CV: Regular rate and rhythm, no murmur Abd: Mild-moderate tenderness to palpation in the epigastric/periumbilical region Ext: no edema, no rash Neuro: AAOx3, 5/5 strength in all extremities Problem list Acute hypoxemic respiratory failure secondary to COVID 19 pneumonia Insulin-dependent diabetes mellitus type 2 Stage IV cirrhosis History of PE/DVT, s/p IVC filter placement and chronic Eliquis IBS-D -will bring patient in for observation and she was hypoxic with ambulation -continue treatment with IV steroids, vitamin supplementation, full-dose Eliquis -Ivermectin ordered, explained to patient that this is experimental may remain out provide benefit, patient agreeable -if patient has any worsening of symptoms will consider remdesevir tomorrow -CRP in D-dimer elevated, trend CRP/ferritin -continue home insulin, aggressive sliding scale, will likely need a titration due to steroid-induced hyperglycemia VTE: Eliquis Code: full Dispo: Anticipate Dc home in 24-48 hr, likely need home oxygen, social work/supportive employment case manager consulted Time Spent Managing Pts Care (In Minutes): 60
[2021-01-07] MEDS: ASCORBIC ACID 500 MG TABLET PO SCH ×2 (20:19→21:59)
[2021-01-07] MEDS ORDERED: GLUCAGON 1 MG/VIAL IM PRN (20:19)
[2021-01-07] MEDS ORDERED: D50W 25 GM/50 ML SYRINGE IV PRN (20:19)
[2021-01-07 20:24] VITALS: BMI 39.9
[2021-01-07] MEDS ORDERED: IVERMECTIN 3 MG TABLET PO SCH (21:00)
[2021-01-07] MEDS: METHYLPREDNISOLONE 40 MG INJ IV SCH (21:57)
[2021-01-07] MEDS: APIXABAN 2.5 MG TABLET PO SCH (21:57)
[2021-01-07] MEDS: THIAMINE 200 MG/2 ML INJ IVP SCH (21:57)
[2021-01-07] MEDS: FAMOTIDINE 20 MG TAB PO SCH (21:57)
[2021-01-07] MEDS: INSULIN -REGULAR HUMAN 50 UNIT/0.5 ML ML SQ SCH (21:58)
[2021-01-07] MEDS: NA CHLORIDE 0.9% 1,000 ML IV SCH (22:01)
[2021-01-07] MEDS ORDERED: TRAZODONE 50 MG TABLET PO PRN (22:41)
[2021-01-07] MEDS: ACETAMINOPHEN 325 MG TABLET PO PRN (23:53)
[2021-01-08] MEDS: PROMETHAZINE 25 MG TABLET PO PRN ×2 (00:15→08:46)
[2021-01-08 01:41] LABS: Urine Appearance CLEAR (Clear); Urine Bilirubin NEGATIVE (Negataive); Urine Blood NEGATIVE (Negative); Urine Color YELLOW (Yellow); Urine Glucose 1+ (Negative); Urine Microscopic Reflex NO UMIC; Urine Protein NEGATIVE (Negative); Urine Specific Gravity >=1.030 (1.005-1.030); Urine Urobilinogen 0.2 mg/dL (0.2-1.0)
[2021-01-08 04:12] LABS: Absolute Lymphocytes (CBC) 0.5 K/uL (0.7-4.9); Basophils % 0.1 % (0-1.3); Hematocrit 36.1 % (36.0-45.0); Lymphocytes % 23.8 % (15.3-44.8); RBC Red Blood Cell Count 4.39 M/uL (3.86-4.86)
[2021-01-08] MEDS: ACETAMINOPHEN 325 MG TABLET PO PRN (04:16)
[2021-01-08 05:51] LABS: Albumin 3.2 g/dL (3.4-5.0); Bilirubin Total 0.9 mg/dL (0.2-1.0); C-Reactive Protein 18.8 mg/L (<3.00); Ferritin 769.3 ng/mL (8-388); Magnesium 1.6 mg/dL (1.8-2.4); Potassium 3.6 mmol/L (3.5-5.1); Protein, Total 7.8 g/dL (6.4-8.2)
[2021-01-08 07:34] LABS: Platelet Estimate DECR; White Blood Cell Scan OK (OK)
[2021-01-08 07:35] LABS: Blood Morphology Comment NOT SEEN (NOT SEEN)
[2021-01-08] MEDS ORDERED: INSULIN GLARGINE 100 UNITS/ML SQ SCH (08:00)
[2021-01-08] MEDS: INSULIN -REGULAR HUMAN 50 UNIT/0.5 ML ML SQ SCH ×2 (08:25→12:12)
[2021-01-08] MEDS: METHYLPREDNISOLONE 40 MG INJ IV SCH (08:29)
[2021-01-08] MEDS: THIAMINE 200 MG/2 ML INJ IVP SCH (08:29)
[2021-01-08] MEDS: FAMOTIDINE 20 MG TAB PO SCH (08:29)
[2021-01-08] MEDS: ASCORBIC ACID 500 MG TABLET PO SCH ×2 (08:30→12:12)
[2021-01-08] MEDS: APIXABAN 2.5 MG TABLET PO SCH (08:30)
[2021-01-08] MEDS ORDERED: VITAMIN D 1000 UNIT TAB PO SCH (09:00)
[2021-01-08] MEDS ORDERED: POTASSIUM CL SA 10 MEQ TAB PO ONE (09:00)
[2021-01-08] MEDS ORDERED: ZINC SULFATE 220 MG CAP PO SCH (09:00)
[2021-01-08] MEDS ORDERED: MAGNESIUM SULFATE 1 gm IVPB 1 GM/100 ML BAG IV ONE (09:00)
[2021-01-08] MEDS: NA CHLORIDE 0.9% 1,000 ML IV SCH (09:39)
[2021-01-08] MEDS ORDERED: IVERMECTIN 3 MG TABLET PO SCH (10:00)
[2021-01-08 12:40] VITALS: BP 118/57; TEMP 97.8; O2SAT 94
[2021-01-08 12:56] LABS: C.diff Antigen/Toxin Ag neg : Tox neg (NEG : NEG)
--- NOTE | 2021-01-08 14:58 | P.DS ---
Admission Date: 01/07/21 Discharge Date: 01/08/21 Disposition: ROUTINE DISCHARGE Discharge Condition: GOOD Reason for Admission: COVID-19 hypoxia Procedures: CXR (01/07): FINDINGS: The lungs appear clear of acute infiltrate. The heart is normal size. The mediastinum is prominent. IMPRESSION: Prominent mediastinum may be secondary to mediastinal fat. Probably less likely lymphadenopathy. PA and lateral chest series recommended CTA Chest (01/07): A pulmonary embolus is not seen. A thoracic aortic aneurysm is not noted. Prominent mediastinal fat is present. A pleural effusion is not seen. A pericardial effusion is not seen. A lung consolidation is not present. IMPRESSION: Negative for a pulmonary embolism. Problem list Acute hypoxemic respiratory failure secondary to COVID 19 pneumonia Insulin-dependent diabetes mellitus type 2 Stage IV cirrhosis History of PE/DVT, s/p IVC filter placement and chronic Eliquis IBS-D Brief History of Present Illness: 55-year-old female, PMH: Autoimmune hepatitis/stage IV cirrhosis, insulin- dependent DM 2, IBS D, history of PE/DVT, gastroparesis. Patient presents with progressively worsening shortness of breath and cough over the past 6 days. Associated with diarrhea, loss of smell and taste, nausea. Denies chest pain, no vomiting, no lower extremity swelling or tenderness. Multiple family members have tested positive for COVID in the last week. In the ED, she was noted to be hypoxic in the mid 80s with mild ambulation. CXR and CTA chest were negative for acute pulmonary process/opacities, negative for PE. Labwork notable for an elevated D-dimer of 736, negative lactic acid, elevated CRP: 12.6. Hospital Course: Patient was treated with IV steroids and vitamin supplementation. She received 1 dose of Ivermectin. She continued to do well. The following morning she was feeling better, breathing more comfortably. Her saturation remained > 94% on room air at rest and with ambulation. She did not qualify for oxygen supplementation. She had significant improvement in her diarrhea as well. Patient was discharged home on a 2 week course of prednisone. She was advised to take 81 mg aspirin in addition to her Eliquis for at least 1 month. She is to follow up with Dr. Haas in 1-2 weeks. She was advised to increase her insulin at home at 2-5 units to further discuss with her PCP due to steroid induced hyperglycemia. Vital Signs/Physical Exam: Physical exam: Gen: NAD, AAOx3 HEENT: Normal conjunctiva, sclerae anicteric Pulm: Diminished bilaterally at bases, nonlabored respirations on room air, clear to auscultation CV: Regular rate and rhythm, no murmur Abd: Mild-moderate tenderness to palpation in the epigastric/periumbilical region Ext: no edema, no rash Neuro: AAOx3, 5/5 strength in all extremities Temp Pulse Resp BP Pulse Ox 97.8 F 69 18 118/57 L 94 01/08/21 12:00 01/08/21 12:00 01/08/21 12:00 01/08/21 12:00 01/08/21 12:00 Laboratory Data at Discharge: WBC 2.30 K/uL (4.3-10.9) L D 01/08/21 03:09 Hgb 12.4 g/dL (12.0-15.0) 01/08/21 03:09 Hct 36.1 % (36.0-45.0) 01/08/21 03:09 Plt Count 86 K/uL (152-406) L 01/08/21 03:09 PT 14.8 SECONDS (9.5-12.5) H 01/07/21 13:30 INR 1.28 01/07/21 13:30 Sodium 139 mmol/L (136-145) 01/08/21 03:09 Potassium 3.6 mmol/L (3.5-5.1) 01/08/21 03:09 BUN 14 mg/dL (7-18) 01/08/21 03:09 Creatinine 0.70 mg/dL (0.55-1.3) 01/08/21 03:09 Glucose 287 mg/dL (74-106) H 01/08/21 03:09 Magnesium 1.6 mg/dL (1.8-2.4) L 01/08/21 03:09 Total Bilirubin 0.9 mg/dL (0.2-1.0) 01/08/21 03:09 AST 25 U/L (15-37) 01/08/21 03:09 ALT 26 U/L (12-78) 01/08/21 03:09 Alkaline Phosphatase 91 U/L (45-117) 01/08/21 03:09 Home Medications: Apixaban [Eliquis *] 2.5 mg PO BID 01/08/21 Ascorbic Acid [Vitamin C*] 500 mg PO QID 30 Days #120 tablet 01/08/21 Aspirin [Aspirin EC 81 MG] 81 mg PO DAILY 30 Days #30 tablet. 01/08/21 Atorvastatin Calcium [Lipitor*] 40 mg PO DAILY 01/08/21 Cholecalciferol (Vitamin D3) [Vitamin D 1000 Iu Tab*] 4,000 unit PO DAILY 30 Days #120 tab 01/08/21 Dicyclomine [Bentyl*] 10 mg PO BID PRN 01/08/21 Escitalopram [Lexapro*] 20 mg PO BEDTIME 01/08/21 Ferrous Sulfate [Ferrous Sulfate*] 325 mg PO DAILY 01/08/21 Furosemide [Lasix*] 20 mg PO DAILY 01/08/21 Insulin Aspart [Novolog] 0 units SQ UD 01/08/21 Insulin Detemir [Levemir] 70 units SQ DAILY 01/08/21 Levothyroxine [Synthroid*] 0.125 mg PO DAILY 01/08/21 Omeprazole [Prilosec] 40 mg PO DAILY 01/08/21 Rifaximin [Xifaxan] 550 mg PO BID 01/08/21 Spironolactone [Aldactone*] 50 mg PO DAILY 01/08/21 Tramadol HCl [Ultram] 50 mg PO Q6H PRN 01/08/21 Zinc Sulfate [Zinc Sulfate*] 220 mg PO DAILY 30 Days #30 cap 01/08/21 carvediloL [Carvedilol] 6.25 mg PO BID 01/08/21 predniSONE [Prednisone] 20 mg PO SEECOM 14 Days #21 tablet 01/08/21 ursodioL [Cinda Forte] 500 mg PO BID 01/08/21 New Medications: Aspirin [Aspirin EC 81 MG] 81 mg PO DAILY 30 Days #30 tablet. predniSONE [Prednisone] 20 mg PO SEECOM 14 Days #21 tablet Ascorbic Acid [Vitamin C*] 500 mg PO QID 30 Days #120 tablet Cholecalciferol (Vitamin D3) [Vitamin D 1000 Iu Tab*] 4,000 unit PO DAILY 30 Days #120 tab Zinc Sulfate [Zinc Sulfate*] 220 mg PO DAILY 30 Days #30 cap Physician Discharge Instructions: You were found to have COVID-19 pneumonia. You were treated with steroids. You did not require oxygen supplementation. You are discharged with prednisone (steroids) for 2 weeks and vitamins. Please take 81mg aspirin for 1 month, in a ddition to your eliquis. Please follow up with Dr. Haas (Pulmonary) in 1-2 weeks. Diet: ADA Activity: Ad kentrell Followup: Buzz Haas MD [ACTIVE - CAN ADMIT] - Desiree Guerrero MD [Primary Care Provider] - (call to schedule appointment) Time spent managing pt's care (in minutes): 35
[2021-01-08] MEDS ORDERED: D50W 25 GM/50 ML VIAL IV PRN (15:00)
== END 2021-01-08 15:00 | disposition home or self-care (01) ==
LOC: ER 12:26 → ERHOLD 16:48 → 4TH 19:51
PROVIDERS: ADMIT Hospitalist; ATTEND Hospitalist
DX: U07.1 COVID-19 (principal); J12.82 Pneumonia due to coronavirus disease 2019; J96.01 Acute respiratory failure with hypoxia; E11.43 Type 2 diabetes mellitus with diabetic autonomic (poly)neuropathy; K31.84 Gastroparesis; K74.60 Unspecified cirrhosis of liver; K58.0 Irritable bowel syndrome with diarrhea; K75.4 Autoimmune hepatitis; K52.9 Noninfective gastroenteritis and colitis, unspecified; Z87.891 Personal history of nicotine dependence; Z79.01 Long term (current) use of anticoagulants; Z79.4 Long term (current) use of insulin; Z88.3 Allergy status to other anti-infective agents; Z88.6 Allergy status to analgesic agent; Z86.718 Personal history of other venous thrombosis and embolism; Z86.711 Personal history of pulmonary embolism; Z90.49 Acquired absence of other specified parts of digestive tract
CPT/HCPCS: 96361; 87040 ×2; 85025 ×2; 80048; 36415; 83735 ×2; 85610; 82947 ×2; 85379; 80076; 83605; 81003; 87324; 84484; 82728 ×2; 80053; 84145 ×2; 83880; 87449; 86140 ×2; 71275; 71045; 94010; 94760; 96375; 96374; 99285; Q9967; J2765; J3411 ×2; J3475; J1100; J7050; J7040; J7030; J2920 ×2; G0378; J1815; Q0169

== ENCOUNTER 2022-02-26 17:32 | Emergency (ER) | payer OTHER ==
--- OUTSIDE RECORDS SUMMARY | 2022-02-26 17:57 | XMS REPORT | Continuity of Care Document ---
:1965 Author Organization [facility] t Address [address] [place] [address] Care Team Providers Name Role Phone SHANELLE Primary Care Physician Unavailable miguel ángel Attending Clinician Unavailable jamaal Attending Clinician Unavailable ADAM MARES Attending Clinician Unavailable Isabella MANN Attending Clinician Unavailable SHANELLE Attending Clinician Unavailable MARIA DOLORES PHILLIPS Attending Clinician Unavailable ANILA CHATTERJEE Attending Clinician Unavailable JASMIN Attending Clinician Unavailable EUGENIO Attending Clinician Unavailable ISAI MILLS Attending Clinician Unavailable DIAZ Attending Clinician Unavailable Isabella Mann MD Attending Clinician Maria Dolores Phillips NP Attending Clinician Mathew ANNE Attending Clinician Unavailable Edmund FRIEDMAN Attending Clinician CESARIO Attending Clinician Unavailable Cesario HARMAN Attending Clinician Declan MARES III Attending Clinician Unavailable Emmanuel Stephen Attending Clinician Emmanuel JOSEPH Attending Clinician Unavailable FAWAD QUINTEROS Attending Clinician Unavailable José Miguel TAPIA MD, R Attending Clinician SHANIQUA Attending Clinician Unavailable Dayton Schmidt Attending Clinician Marylou COELLO Attending Clinician Unavailable Adam Mares Attending Clinician Chen Rivero MD Attending Clinician Zaira Schaffer NP Attending Clinician Jose EXECUTIVE ASSISTANT TO PRESIDENT, ARMATURE WINDER REPAIR, M Attending Clinician Unavailable Shanelle FRIEDMAN Attending Clinician Armond Howell MD Attending Clinician Dayton Huitron PA-C Attending Clinician Lisa Encinas MD Attending Clinician Desiree FRIEDMAN Attending Clinician Jaylin HARMAN Attending Clinician JAYLIN Attending Clinician Unavailable Renay Porter RN Attending Clinician Unavailable TIERRA JORDAN Attending Clinician Unavailable 1, Fariba Room Attending Clinician Unavailable DAYTON HUITRON Attending Clinician Unavailable Roldan Adams MD Attending Clinician Marylou Haley Attending Clinician Unavailable ISAI MILLS Attending Clinician Unavailable Narendra COOPER Attending Clinician NARENDRA Attending Clinician Unavailable Dayton Dillon MD Attending Clinician Randell FRIEDMAN Attending Clinician Gold FRIEDMAN Attending Clinician Jere Webb MD Attending Clinician Tierra Jordan MD Attending Clinician Sampson Bennett Attending Clinician Unavailable Tha FAIR Y Attending Clinician Unavailable Buster ANNE Attending Clinician Unavailable Chuck Serrato MA Attending Clinician Unavailable Shaniqua HARMAN Attending Clinician Sylvia FRIEDMAN Attending Clinician DESIREE Attending Clinician Unavailable DANTE Attending Clinician Unavailable TALIB Attending Clinician Unavailable Bradley Montana NP Attending Clinician Adelina Dubois Attending Clinician [phone] Buck Attending Clinician Unavailable Jeferson Attending Clinician Unavailable Kwesi Attending Clinician Unavailable Tierra Jordan MD Attending Clinician Doctor Unassigned, Name Attending Clinician Unavailable Jl FAIR L Attending Clinician Unavailable Efrain FRIEDMAN Attending Clinician Shar FRIEDMAN Attending Clinician Liliam FRIEDMAN Attending Clinician Winsome FRIEDMAN Attending Clinician EFRAIN Attending Clinician Unavailable Deondre Attending Clinician Unavailable Jasmin FRIEDMAN Attending Clinician Latoya Ortiz MD Attending Clinician Fawad Quinteros MD Attending Clinician Maricel Mann MD Attending Clinician Dayton Huitron PA-C Attending Clinician Cristal AVENDAÑO Attending Clinician Unavailable Mya FRIEDMAN Attending Clinician Tj Trevino DO Attending Clinician Kit Mills MD Attending Clinician Luz MARTIN Attending Clinician Unavailable [facility] Attending Clinician Unavailable Bruce Slaughter MD Attending Clinician Adán FRIEDMAN Attending Clinician Bruna Lynch MD Attending Clinician Provider Attending Clinician Unavailable Maricel Mcginnis MD Attending Clinician Mari FRIEDMAN Attending Clinician BRUCE AMADOR Attending Clinician Unavailable Don FAIR, BSN Attending Clinician Unavailable Nikko Waters PA-C Attending Clinician Cristal VAUGHN Attending Clinician Unavailable TOYA Attending Clinician Unavailable Herlinda ESCALANTE Attending Clinician Unavailable Manav GOMES Attending Clinician Unavailable Luz PEREZ Attending Clinician Unavailable ADAM MARES Admitting Clinician Unavailable Isabella MANN Admitting Clinician Unavailable CESARIO Admitting Clinician Unavailable JERE WEBB Admitting Clinician Unavailable Shar FRIEDMAN Admitting Clinician BRUCE AMADOR Admitting Clinician Unavailable DARLINE WITT Admitting Clinician Unavailable Adelina Dubois Unavailable [phone] Payers Payer Name Policy Type Policy Number Effective Date Expiration Date S gloria Sliding Fee - Cat P [id number] 2020 2021 1 00:00:00 00:00:00 Sliding Fee - Cat S NONE 1 MEDICARE A B [id number] 2019 2020 00:00:00 00:00:00 [facility] STAR [id number] 2020 PLAN 00:00:00 UNITED MEDICARE [id number] 2020 O 00:00:00 MEDICAID [facility] [id number] 2019 00:00:00 BUI [id number] 2019 MARKETPLACE 00:00:00 EXCHANGE WELLMED DUAL [id number] 2021 COMPLETE SNP 00:00:00 [facility]-MED[facility] - [id number] 2020 MEDICAID 00:00:00 BEHAVIORAL HEALTH [id number] MEDICARE PART A [id number] \\T\\ B - MEDICARE MARKETPLACE PLAN [id number] [facility] NIA KAM[facility] DUAL [id number] 2021 COMP HMO D SNP 00:00:00 [place] [id number] 2020 00:00:00 [facility] [id number] [address] [facility] Com 00:00:00 [facility] [id number] [address] [facility] Mc[facility] 00:00:00 Patient [facility] [employer] [id number] [address] [facility] Marketplace 00:00:00 [facility] [id number] [facility] [id number] [facility] Patient Medical Center Problems Condition Condition Condition Status Onset Resolution Last Treating Co mments Source Name Details Category Date Date Treatment Clinician Date Arthritis Arthritis Disease Active [facility] carpometac carpometac 00:00: Md dical arpal arpal 00 Center ([facility]) ([facility]) joint of joint of right right thumb thumb Numbness Numbness Disease Active [facility] and and 7-20 College tingling tingling 00:00: of in both in both 00 Medicin hands hands e 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 and stress and 6-30 Co llege urge urge 00:00: of urinary urinary 00 Medicin incontinen incontinen e ce ce Fracture Fracture Disease Active Jennifer r of tooth of tooth 6-30 Colleg e 00:00: of 00 Medicin e COVID-19 COVID-19 Disease Active Jennifer r 4-02 College 00:00: of 00 Medicin e Hypothyroi Hypothyroi Disease Active 2019-10 [facility] d d 0-22 [facility] 00:00: of 00 Medicin e Hypothyroi Condition Active 2019-102020-08-02 [facility] d 0-22 08:44:00 en, Elvin Commu ni 00:00: C ty 00 Health Liver Condition Active 2019-102020-08-02 Meidnayd [facility] cirrhosis 0-22 08:44:00 en, Elvin Co mmuni 00:00: C ty Health Small Small Disease Active [facility] bowel bowel 8-13 College obstructio obstructio 00:00: of n (HCCode) n (HCCode) 00 Me dicin e Degenerati Degenerati Disease Active B aycruzito ve ve 03-07 Ney arthritis arthritis 00:00: of of distal of distal 00 Medi praneeth interphala interphala e ngeal ngeal joint of joint of ring ring finger of finger of right hand right hand Polyarthro Polyarthro Disease Active [facility] PAD PAD Disease Active [facility] (periphera (periphera 02-20 Co llege l artery l artery 00:00: of disease) disease) 00 Medici n (HCCode) (HCCode) e Sicca Sicca Disease Active [facility] 02-20 [facility] 00:00: of 00 Medicin e Abdominal Abdominal Disease Active [facility] bloating bloating 02-20 Colleg e 00:00: of 00 Medicin e Abdominal Abdominal Disease Active [facility] distention distention 02-20 Co llege 00:00: of 00 Medicin e Age-relate Age-relate Disease Active [facility] d nuclear d nuclear 02-20 [facility] cataract cataract 00:00: of of both of both 00 Medicin eyes eyes e Alternatin Alternatin Disease Active B jose g g 02-20 Ney constipati constipati 00:00: of on and on and 00 Medicin diarrhea diarrhea e Back pain Back pain Disease Active [facility] cruz[facility] - Ney 00:00: of 00 Medicin e Elevated Elevated Disease Active [place] anti-tissu anti-tissu 02-20 Co llege e e 00:00: of transgluta transgluta 00 Me dicin minase minase e (tTG) IgA (tTG) IgA level level Elevated Elevated Disease Active [place] C-reactive C-reactive 02-20 Co llege protein protein 00:00: of (CRP) (CRP) 00 Medicin e Elevated Elevated Disease Active [facility] sed rate sed rate 02-20 Colleg e (elev SR) (elev SR) 00:00: of 00 Medicin e Encounter Encounter Disease Active [facility] cruz[facility] for for 02-20 [facility] long-term long-term 00:00: of (current) (current) 00 Medi praneeth use of use of e high-risk high-risk medication medication Epigastric Epigastric Disease Active [facility] pain pain -13 College 00:00: of 00 Medicin e Finger Finger Disease Active [facility] pain, pain, 02-20 College right right 00:00: of 00 Medicin e Hereditary Hereditary Disease Active [facility] and and 02-20 College idiopathic idiopathic 00:00: of peripheral peripheral 00 Me dicin neuropathy neuropathy e History of History of Disease Active [facility] DVT (deep DVT (deep 02-20 [facility] vein vein 00:00: of thrombosis thrombosis 00 Me dicin ) ) e History of History of Disease Active [facility] gastrointe gastrointe 02-20 Co llege stinal stinal 00:00: of procedure procedure 00 Medi praneeth e Left leg Left leg Disease Active [place] [facility] pain pain 02-20 College 00:00: of 00 Medicin e Myalgia Myalgia Disease Active [facility] 13 [facility] 00:00: of 00 Medicin e Nausea and Nausea and Disease Active [facility] vomiting vomiting 02-20 Colleg e 00:00: of 00 Medicin e Numbness Numbness Disease Active [facility] and and 02-20 [facility] tingling tingling 00:00: of in left in left 00 Medicin hand hand e Numbness Numbness Disease Active [facility] and and 02-20 [facility] tingling tingling 00:00: of of both of both 00 Medicin feet feet e Osteoarthr Osteoarthr Disease Active [facility] itis itis 02-20 College 00:00: of 00 Medicin e Other Other Disease Active [facility] fecal fecal 02-20 College abnormalit abnormalit 00:00: of ies ies 00 Medicin e PAD PAD Disease Active [facility] (periphera (periphera 02-20 Co llege l artery l artery 00:00: of disease) disease) 00 Medici n (HCCode) (HCCode) e Positive Positive Disease Active [place] [facility] autoantibo autoantibo 02-20 Co llege dy dy 00:00: of screening screening 00 Medi praneeth for celiac for celiac e disease disease Refractive Refractive Disease [facility]-20 College 00:00: of 00 Medicin e Sicca Sicca Disease Active [facility] (HCCode) (HCCode) 513 Colleg e 00:00: of 00 Medicin e Vitreous Vitreous Disease Active [facility] r syneresis syneresis 02-20 Danny ege of both of both 00:00: of eyes eyes 00 Medicin e Arthritis Arthritis Disease Active [facility] of finger of finger 02-20 Danny ege of right of right 00:00: of hand hand 00 Medicin e Hepatitis Hepatitis Disease Active [facility] core 2-06 [facility] antibody antibody 00:00: Medica l positive positive 00 [place] Hepatic Hepatic Disease Active [facility] encephalop encephalop 2-06 Co llege athy athy 00:00: [facility] Medici n e Major Major Disease Active 2018-10 [facility] depressive depressive 0-02 Co llege disorder, disorder, 00:00: of recurrent recurrent 00 [facility] episode, episode, e moderate moderate Illness Illness Disease Active 2018-10 [facility] anxiety anxiety 0-02 College disorder disorder 00:00: of 00 Medicin e UGIB UGIB Disease Active [facility] (upper (upper 8-16 [facility] gastrointe gastrointe 00:00: Me dical stinal stinal 00 [place] bleed) bleed) Insulin Insulin Disease Active [facility] dependent dependent 7-16 [facility]ge type 2 type 2 00:00: of diabetes diabetes 00 Medici n mellitus mellitus e (HCCode) (HCCode) Cirrhosis Cirrhosis Disease Active [facility] (HCCode) (HCCode) 716 Colleg e 00:00: of 00 Medicin e Obesity, Obesity, Disease Active [facility] Class III, Class III, 7-03 Elena kes BMI BMI 00:00: Medical 40-49.9 40-49.9 00 Center (morbid (morbid obesity) obesity) Obesity, Obesity, Disease Active [facility] Class III, Class III, 7-03 Elena kes BMI BMI 00:00: Medical 40-49.9 40-49.9 00 Center (morbid (morbid obesity) obesity) Abdominal Abdominal Disease Active [facility] pain pain 7-02 [facility] 00:[facility]: Medical 00 Center Portal Portal Disease Active [facility] hypertensi hypertensi 2-15 Elena kes on on 00:00: Medical 00 Center Fatty Fatty Disease Active [facility] liver liver 2-15 [facility] 00:00: Medical 00 Center Metabolic Metabolic Disease Active [facility] syndrome syndrome 2-15 [facility] 00:00: Medical 00 [place] Abnormal Abnormal Disease Active Last [facility] liver liver 7-20 Assessmen Abby enzymes enzymes 00:00: t & Plan: Medic al 00 [facility] g of this note might be different from the original. Known to have abnormal liver enzymes for last 6 months, AST/ ALT > 2 ULN, comprehen sive workup was negative for chronic viral hepatitis , autoimmun e liver disease and normal cerulopla smin and iron studies. Abnormal liver enzyme appears to be related to nonalcoho lic fatty liver disease and she has multiple risk factors for that Class 3 Class 3 Disease Active [facility] severe severe 7-20 Assessmen Abby obesity in obesity in 00:00: t & Plan: Medical adult adult 00 [facility] g of this note might be different from the original. The patient's current BMI is 40. Obesity is [...] complicat ions. The assessmen t of a aboriginal liaison officer or nutrition ist may be beneficia l.I discussed the following weight loss technique s:(1) Decreasin g portion size. (2) Avoid eating in front of [employer] n or computers . Eat at a [...] walking or swimming. Screening Screening Disease Active [facility] for cancer for cancer 04-29 [place] Mora 00:00: t & Plan: Medical [address] [place] [address] g of this note might be different from the original. Cirrhosis , regardles s of etiology, is a risk factor for hepatocel lular carcinoma (HCC), with an annual incidence of 1.5-7%. We recommend surveilla nce for HCC with abdominal imaging and alphafeto protein every 6 months. Cirrhosis Cirrhosis Disease Active [facility] of liver of liver 04-29 Assessmarylou Gomez es without without 00:00: t & Plan: Medic al ascites ascites 00 [facility] g of this note might be different from the original. Compensat ed cirrhosis , diagnosed by jt fisher of symptoms/ examinati on/labs/i maging. There is not any evidence of acute decompens ation. 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 , S/p IVC Filter and on warfarin Osteophyte Osteophyte Disease Active [facility] of hand of hand 16 College 00:00: of 00 Medicin e Flexor Flexor Disease Active [facility] tenosynovi tenosynovi 16 Co llege tis of tis of 00:00: of finger finger 00 Medicin e Osteophyte Osteophyte Disease Active [facility] of hand of hand 16 College 00:00: of 00 Medicin e Dyspnea Problem Active [facility] Allergies, Adverse Reactions, Alerts Allergy Allergy Status Severity Reaction(s) Onset Inactive Treating Comm ents Source Name Type Date Date Clinician Latex Propensi Active [facility] ty to 06-12 College adverse 00:00: of reaction 00 Medicin s to e substanc e Warfarin Propensi Active 1pt [facility] ty to 06-12 refusing College adverse 00:00: brand of reaction 00 name Medicin s to coumadin e drug due to thin blood issues. pt wants generic = warfarin2 pt refusing brand name coumadin due to thin blood issues. pt wants generic = warfarinp t refusing brand name coumadin due to thin blood issues. pt wants generic = warfarinp t refusing brand name coumadin due to thin blood issues. pt wants generic = warfarinp t refusing brand name coumadin due to thin blood issues. pt wants generic = warfarin1 pt refusing brand name coumadin due to thin blood issues. pt wants generic = warfarin pt refusing brand name coumadin due to thin blood issues. pt wants generic = warfarin Adhesive Propensi Active Rash 2020-0 [facility] ty to 05-22 Ney adverse 00:00: of reaction 00 Medicin s to e substanc e Hydromor Propensi Active Hallucinatio 2020-0 Univers phone ty to ns 8-12 ity of (Bulk) adverse 00:00: [place] reaction 00 Medical s Branch Doxycycl Propensi Active Other - See 2020-0 ABD pain Univers ine ty to comments 8-12 ity of adverse 00:00: [place] reaction 00 Medical s Branch Cephalex Propensi Active Other - See 2020-0 ABD pain Univers in ty to comments 8-12 ity of adverse 00:00: [place] reaction 00 Medical s Branch ADHESIVE Drug Active Rash 2020-0 Univers Class 8-12 ity of 00:00: [place] 00 Medical Branch HYDROMOR DRUG Active Hallucinates 2020-0 Un armando PHONE 8-12 ity of (BULK) 00:00: [place] 00 Medical Branch DOXYCYCL DRUG Active Other-Cmnt 2020-0 Univ ers INE INGREDI 8-12 ity of 00:00: [place] 00 Medical Branch CEPHALEX DRUG Active Other-Cmnt 2020-0 Univ ers IN INGREDI 8-12 ity of 00:00: [place] 00 Medical Branch Adhesive Propensi Active Rash 2020-0 Univer s ty to 8-12 ity of adverse 00:00: [place] reaction 00 Medical s Branch KEFLEX Drug Active High 2020-0 [facility] allergy Criticali 6-09 Commun i (disorde ty 00:00: ty r) 00 Health DILAUDID Drug Active High 2020-0 [facility] allergy Criticali 6-09 Commun i (disorde ty 00:00: ty r) 00 Health DOXYCYCL Drug Active High 2020-0 [facility] INE allergy Criticali 6-09 Commun i (disorde ty 00:00: ty r) 00 Health Adhesive Drug Active Rash 2019-[address] [facility] Allergy 4[facility]02 paper [facility] 00:[facility]: tape Medical 00 Center Fluconaz Drug Active Rash 2019-[address] [facility] [address] ole Allergy 4-02 [facility] 00:00: Medical 00 Center ADHESIVE Allergy Active Low Rash 2019-0 [facility] 4-02 00:00: 00 FLUCONAZ Allergy Active Low Rash 2019-0 [facility] OLE 4-02 00:00: 00 Dapaglif Propensi Active Rash 2019-0 [facility] lozin ty to 2-13 College adverse 00:00: of reaction 00 Medicin s to e drug Doxycycl Propensi Active Mild 2017-1 [facility] ine ty to 0-04 College adverse 00:00: of reaction 00 Medicin s to e drug Cephalex Allergy Active Mild 2017-[address] [facility] [facility] to 0-04 [facility] substanc 00[facility] Patient e 00 Medical Center Doxycycl Allergy Active Mild 2018-[address] [facility] ine to 0-04 [facility] substanc 00:[facility]: Patient e 00 Medical Center Hydromor Allergy Active Mild HALLUCINATIO 2018-[address] phone to NS 0-04 [facility] substanc 00:00: Patient e 00 Medical Center Hydromor Propensi Active Other (See 2018-[address] phone ty to Comments) 7-20 tion [facility] (Bulk) adverse 00:00: Medical reaction 00 Center s Doxycycl Drug Active Nausea And 2018-[address] ine Allergy Vomiting 7-20 [facility] Hyclate 00:00: Medical 00 Center Cephalex Propensi Active Nausea And 2018-[address] in ty to Vomiting 7-20 [facility] adverse 00:00: Medical reaction 00 Center s Cephalex Drug Active Nausea And 2018-[address] [facility] in Allergy Vomiting 7-20 [facility] 00:[facility]: Medical 00 Center Hydromor Drug Active Other (See 2018-[address] phone Allergy Comments) 7-20 tion [facility] (Bulk) 00:00: Medical 00 Center HYDROMOR Allergy Active High Other 2018-0 [facility] PHONE 7-20 (BULK) 00:00: 00 DOXYCYCL Allergy Active High N\\T\\V 2018-0 [facility] INE 7-20 HYCLATE 00:00: 00 CEPHALEX Allergy Active High N\\T\\V [facility] IN 04-29 00:00: 00 Hydromor Propensi Active Hallucinatio Became Yon phone ty to ns 04-29 very College adverse 00:00: violentOt of reaction 00 her Medicin s to reaction( e drug s): Other (See Comments) hallucina tionhallu cination Cephalex Propensi Active Other (See "makes me [facility] in ty to Comments) 04-29 sick" Ney adverse 00:00: of reaction 00 Medicin s to e drug Doxycycl Propensi Active " makes [facility] ine ty to 04-29 me sick" Ney Hyclate adverse 00:00: of reaction 00 Medicin s to e drug Cephalex Propensi Active Other (See 2008-10 "makes me [facility] in ty to Comments) 10-22 sick" Ney adverse 00:00: of reaction 00 Medicin s to e drug Cephalex DA Active [facility] 2008-10 [facility] in 10-22 Clear Monohydr 00:00: [place] ate 00 [facility] adhesive DA Active [facility] 2008-10 [facility] tape 10-22 Clear 00:00: [place] 00 [facility] Adhesive Propensi Active [facility] Tape ty to Ney adverse of reaction Medicin s to e substanc e Hydromor Propensi Active [facility] phone ty to Ney Hcl adverse of reaction Medicin s to e drug cephalex DA Active [facility] doxycycl DA Active [facility] hydromor DA Active [facility] Family History Family Member Diagnosis Comments Start Date Stop Date Source Natural father Cancer [facility] Natural father Diabetes [facility] Natural father Depression [facility] Natural father Diabetes [facility] Natural father High Blood Pressure [facility] Natural father High Cholesterol [facility] Natural father Prostate Cancer [facility] Maternal grandfather Alzheimer's disease [facility] Maternal grandfather Other [facility] Maternal grandfather Prostate [facility] Maternal grandmother Anuerysm [facility] Maternal grandmother Stroke [facility] Maternal grandmother Stroke [facility] Natural mother Heart disease [facility] Natural mother Heart Attack [facility] Natural mother High Blood Pressure [facility] Natural mother High Cholesterol [facility] Paternal grandmother Cancer [facility] Social History Social Habit Start Date Stop Date Quantity Comments Source History of tobacco Smoker [facility] History [facility] Alcohol Comment Medical C enter History [facility] ge of Alcohol Std Drinks Medici ne History [facility] ge of Alcohol Binge Medicine Exposure to Not sure [facility] e of SARS-CoV-2 (event) Medici ne Alcohol intake 2021-08-22 2021-08-22 .14 /d [facility] lege of 00:00:00 00:00:00 Medicine Education 2020-05-23 2020-05-23 21 University of 00:00:00 00:00:00 [place] [facility] History [facility] 2020-05-23 2020-05-23 5 University o f Financial 00:00:00 00:00:00 [place] [facility] History [facility] Food 2020-05-23 2020-05-23 1 Univers ity of Worry 00:00:00 00:00:00 [place] [facility] History [facility] Food 2020-05-23 2020-05-23 1 Univers ity of Scarcity 00:00:00 00:00:00 [place] [facility] History [facility] 2020-05-23 2020-05-23 2 University o f Transport Med 00:00:00 00:00:00 [place] [facility] History [facility] 2020-05-23 2020-05-23 2 University o f Transport Non-Med 00:00:00 00:00:00 [place] [facility] Tobacco Comment 2020-05-23 2020-05-23 quit 2015 Universit y of 00:00:00 00:00:00 [place] [facility] History [facility] 2018-11-23 2018-11-23 1 [facility] ge of Alcohol Frequency 00:00:00 00:00:00 Medicin e Tobacco use and 2018-01-19 2018-01-19 Smokeless [facility] of exposure 00:00:00 00:00:00 tobacco non-user Medicine Cigarettes smoked 2018-01-19 2018-01-19 [employer] of current (pack per 00:00:00 00:00:00 Medicin e day) - Reported Cigarette 2018-01-19 2018-01-19 [facility] of pack-years 00:00:00 00:00:00 Medicine Sex Ass[birth year] At [birth year] [facility] Smoking Status Start Date Stop Date Source Former smoker 2020-05-23 00:00:00 2020-05-23 00:00:00 [facility] Medications Ordered Filled Start Stop Current Ordering Indication Dosage Frequency Signature Comments Components Source Medication Medication Date Date Medication? Clinician (SIG) Name Name diphenhydrA 2020-10- No 25mg 25 mg, Uni vers MINE 10-21 Slow IV ity of (BENADRYL) 02:30: 01:31 Push, [place] injection 00 :00 ONCE, 1 Medical 25 mg dose, On Branch 08/20/21 at 2030, STAT lidocaine 2020-10- No 10mL 10 mL, Unive rs 2% 10-21 Infiltrati ity of (XYLOCAINE) 01:15: 00:30 on, ONCE, [place] 20 mg/mL (2 00 :00 1 dose, On Me dical %) Wed Branch injection 08/20/21 10 mL at 1915, JEFERSON iopamidol 2020-10- No [id number] 100mL 100 mL, Univers (ISOVUE 10-21 Intravenou ity o f 370-500 mL) 00:45: 00:45 s, ONCE, 1 [place] injection 00 :00 dose, On Medica l 100 mL Wed Branch 08/20/21 at 1845, Routine proMETHazin 2020-10- No 12.5mg 12.5 mg, Univers e 10-21 IV ity of (PHENERGAN) 00:00: 00:22 Piggyback, [place] 12.5 mg in 00 :00 ONCE, 1 Medica l NaCl 0.9% dose, On Branch (NS) 50 mL Wed piggyback 08/20/21 at 1800, 50 mL vancomycin 2020-10- No 1500mg 1,500 mg, Univers 1500 mg in 10-21 IV ity of NS 500 mL 00:00: 01:56 [place]back, [place] IV 00 :00 ONCE, 1 Medical Piggyback dose, On Branch RTU 1,500 Wed mg 08/20/21 at 1800, Administer over 90 Minutes
Reason for Anti-Infec tive: Empiric Therapy for Suspected Infection< br>Empiric Therapy Site: Skin / Soft tissue
Duration of therapy: 7 days NaCl 0.9% 2020-10 No 1000mL at 1,000 U nivers (NS) IV 10-2111 mL/hr, ity of infusion 00:00[place] 01:27 [place]venou [place] 1,000 mL 00 :00 s, ONCE, 1 Medic al dose, On Branch 08/20/21 at 1800, JEFERSON morpHINE 2020-10- No 4mg 4 mg, Slow Un arm[place] injection 4 10-21 1110 IV Push, ity of mg 00:00: 23:29 ONCE, 1 [place] 00 :00 dose, On Medical [facility] Branch 08/20/21 at 1800, STAT clindamycin 2020-10 Yes [id number] 300mg Take 1 [facility] 300 mg 1-10 capsule by ity of capsule 00:00: mouth 4 [place] 00 (four) Medical times Branch daily. clindamycin 2020-10 Yes [id number] Apply to [facility] (CLEOCIN T) 08 affected [facility] 1 % lotion 00:00: area twice o f 00 a day as Medicin needed for e 10 days clindamycin 2020-10 Yes [id number] Apply to [facility] (CLEOCIN T) 1-08 affected [facility] 1 % lotion 00:00: area twice o f 00 a day as Medicin needed for e 10 days nystatin 2020-10 Yes Apply [facility] (MYCOSTATIN 0-20 topically [facility] ) ointment 10:53: two times of 01 daily. Medicin e nystatin 2020-10 Yes Apply [facility] (MYCOSTATIN 0-20 topically [facility] ) ointment 10:53: two times of 01 daily. Medicin e nystatin 2020-10 Yes Apply [facility] (MYCOSTATIN 0-20 topically [facility] ) ointment 10:53: two times of 01 daily. Medicin e nystatin 2020-10 Yes Apply [facility] (MYCOSTATIN 0-11 topically [facility] ) ointment 11:16: two times of 18 daily. Medicin e tramadol 2020-10 Yes Take 1 [facility] (ULTRAM) 50 0-11 pill two [facility] MG tablet 00:00: times a of 00 day as Medicin needed for e severe joint pain/ dispense 3 month refill tramadol 2020-10 Yes Take 1 [facility] (ULTRAM) 50 0-11 pill two [facility] MG tablet 00:00: times a of 00 day as Medicin needed for e severe joint pain/ dispense 3 month refill tramadol 2020-10 Yes Take 1 [facility] (ULTRAM) 50 0-11 pill two [facility] MG tablet 00:00: times a of 00 day as Medicin needed for e severe joint pain/ dispense 3 month refill tramadol 2020-10 Yes Take 1 [facility] (ULTRAM) 50 0-11 pill two [facility] MG tablet 00:00: times a of 00 day as Medicin needed for e severe joint pain/ dispense 3 month refill carvedilol 2020-10 Yes [id number] 6.25mg Take 1 [facility] (COREG) 0-04 9105 Tablet by Ney 6.25 MG 00:00: mouth 2 of tablet 00 times Medicin daily e (with meals). carvedilol 2020-10 Yes [id number] 6.25mg Take 1 [facility] (COREG) 0-04 9105 Tablet by Ney 6.25 MG 00:00: mouth 2 of tablet 00 times Medicin daily e (with meals). carvedilol 2020-10 Yes [id number] 6.25mg Take 1 [facility] (COREG) 0-04 9105 Tablet by Ney 6.25 MG 00:00: mouth 2 of tablet 00 times Medicin daily e (with meals). carvedilol 2020-10 Yes [id number] 6.25mg Take 1 [facility] (COREG) 0-04 9105 Tablet by Ney 6.25 MG 00:00: mouth 2 of tablet 00 times Medicin daily e (with meals). XIFAXAN 550 0 Yes [facility] TABS 9-22 Ney 00:00: of 00 Medicin e XIFAXAN 550 0 Yes [facility] TABS 9-22 [facility]ey 00:00: of 00 Medicin e XIFAXAN 550 0 Yes [facility] TABS 9-22 College 00:00: of Medicin e XIFAXAN 550 0 Yes [facility] TABS 9-22 [facility] 00:00: of Medicin e nystatin Yes Apply [facility] (MYCOSTATIN 8-30 topically [facility] ) ointment 11:26: two times of 05 daily. Medicin e tramadol Yes Take 1 [facility] (ULTRAM) 50 8-23 pill two [facility] MG tablet 00:00: times a of 00 day as Medicin needed for e severe joint pain tramadol 0 2020- No Take 1 [facility] (ULTRAM) 50 8-23 10-11 pill two [facility] MG tablet 00:00: 00:00 times a of 00 :00 day as Medicin needed for e severe joint pain trazodone Yes 75mg Take 1.5 [facility] (DESYREL) 8-17 Tablets by [facility] 50 MG 00:00: mouth of tablet 00 nightly. Medicin e escitalopra Yes [id number] 20mg Take 1 [facility] (LEXAPRO) 8-17 Tablet by [facility] 20 MG 00:00: mouth of tablet 00 daily. Medicin e hydrOXYzine Yes TAKE 1 [facility] (ATARAX) 25 8-17 TABLET BY [facility] MG tablet 00:00: MOUTH 3 of 00 TIMES Medicin DAILY e NEEDED FOR ANXIETY FOR UP TO 30 DAYS. trazodone 0 Yes 75mg Take 1.5 [facility] (DESYREL) 8-17 Tablets by [facility] 50 MG 00:00: mouth of tablet 00 nightly. Medicin e escitalopra Yes [id number] 20mg Take 1 [facility] (LEXAPRO) 8-17 Tablet by [facility] 20 MG 00:00: mouth of tablet 00 daily. Medicin e hydrOXYzine Yes TAKE 1 [facility] (ATARAX) 25 8-17 TABLET BY [facility] MG tablet 00:00: MOUTH 3 of 00 TIMES Medicin DAILY e NEEDED FOR ANXIETY FOR UP TO 30 DAYS. trazodone 0 Yes 75mg Take 1.5 [facility] (DESYREL) 8-17 Tablets by [facility] 50 MG 00:00: mouth of tablet 00 nightly. Medicin e escitalopra Yes [id number] 20mg Take 1 [facility] (LEXAPRO) 8-17 Tablet by [facility] 20 MG 00:00: mouth of tablet 00 daily. Medicin e hydrOXYzine Yes TAKE 1 [facility] (ATARAX) 25 8-17 TABLET BY [facility] MG tablet 00:00: MOUTH 3 of 00 TIMES Medicin DAILY e NEEDED FOR ANXIETY FOR UP TO 30 DAYS. trazodone Yes 75mg Take 1.5 [facility] (DESYREL) 8-17 Tablets by [facility] 50 MG 00:00: mouth of tablet 00 nightly. Medicin e escitalopra Yes [id number] 20mg Take 1 [facility] (LEXAPRO) 8-17 Tablet by [facility] 20 MG 00:00: mouth of tablet 00 daily. Medicin e hydrOXYzine Yes TAKE 1 [facility] (ATARAX) 25 8-17 TABLET BY [facility] MG tablet 00:00: MOUTH 3 of 00 TIMES Medicin DAILY e NEEDED FOR ANXIETY FOR UP TO 30 DAYS. trazodone Yes 75mg Take 1.5 [facility] (DESYREL) 8-17 Tablets by [facility] 50 MG 00:00: mouth of tablet 00 nightly. Medicin e escitalopra Yes [id number] 20mg Take 1 [facility] (LEXAPRO) 8-17 Tablet by Col [facility] 20 MG 00:00: mouth of tablet 00 daily. Medicin e hydrOXYzine Yes TAKE 1 [facility] (ATARAX) 25 8-17 TABLET BY [facility] MG tablet 00:00: MOUTH 3 of 00 TIMES Medicin DAILY e NEEDED FOR ANXIETY FOR UP TO 30 DAYS. tramadol Yes 1{tbl} Take 1 [facility] (ULTRAM) 50 8-05 Tablet by [facility] MG tablet 00:00: mouth of 00 every 6 Medicin hours as e needed for Pain. tramadol Yes 1{tbl} Take 1 [facility] (ULTRAM) 50 8-05 Tablet by [facility] MG tablet 00:00: mouth of 00 every 6 Medicin hours as e needed for Pain. tramadol Yes 1{tbl} Take 1 [facility] (ULTRAM) 50 8-05 Tablet by [facility] MG tablet 00:00: mouth of 00 every 6 Medicin hours as e needed for Pain. tramadol Yes 1{tbl} Take 1 [facility] (ULTRAM) 50 8-05 Tablet by [facility] MG tablet 00:00: mouth of 00 every 6 Medicin hours as e needed for Pain. tramadol Yes 1{tbl} Take 1 [facility] (ULTRAM) 50 8-05 Tablet by [facility] MG tablet 00:00: mouth of 00 every 6 Medicin hours as e needed for Pain. levothyroxi Yes 125ug Take [address] [facility] 7-29 [facility]cg by [facility] (SYNTHROID, 13:03: mouth Medic al LEVOTHROID) 59 Every Center 125 MCG morning on tablet an empty stomach. promethazin Yes 12.5mg Take 12.[address] [facility] 7-29 mg by [facility] (PHENERGAN) 13:03: mouth Medic al 12.5 MG 59 every 12 Center tablet (twelve) hours as needed for Nausea . atorvastati Yes 40mg QD Take [address] [facility] (LIPITOR) 7-29 by mouth [facility] 40 MG 13:03: daily. Medical tablet 59 Center dicyclomine Yes 10mg Take [address] [facility] (BENTYL) 10 7-29 by mouth 4 [facility] MG capsule 13:03: (four) Medic al 59 times Center daily as needed . escitalopra Yes 20mg QD Take [address] [facility] oxalate 7-29 by mouth [facility] (LEXAPRO) 13:03: daily. Medica l 20 MG 59 Center tablet insulin Yes 70U Inject 70 [facility] 7-29 [facility] U-100 13:03: subcutaneo Medica l (LEVEMIR) 59 usly once Cente r 100 unit/mL in morning injection . omeprazole Yes 40mg QD Take [address] [facility] (PRILOSEC) 7-29 by mouth [facility] 40 MG 13:03: daily. Medical capsule 59 Center traMADoL Yes 50mg Take [address] [facility] (ULTRAM) 50 7-29 by mouth Luke [facility] mg tablet 13:03: every 6 Medic al 59 (six) Center hours as needed for Pain. carvediloL Yes 12.5mg Take 12.[address] [facility] (COREG) 7-29 mg by [facility] 12.5 MG 13:03: mouth 2 Medical tablet 59 (two) Center times daily with breakfast and dinner. home [address] [facility] insulin 7-29 [facility] pump Misc 13:03: Insulin Medic al 59 pump . Center levothyroxi Yes 125ug Take [address] ne 7-29 mcg by [facility] (SYNTHROID, 13:03: mouth Medic al LEVOTHROID) 59 Every Center 125 MCG morning on tablet an empty stomach. promethazin Yes 12.5mg Take 12.[address] [facility] e 7-29 mg by [facility] (PHENERGAN) 13:03: mouth Medic al 12.5 MG 59 every 12 Center tablet (twelve) hours as needed for Nausea . atorvastati Yes 40mg QD Take [address] [facility] (LIPITOR) 7-29 by mouth [facility] 40 MG 13:03: daily. Medical tablet 59 Center dicyclomine Yes 10mg Take [address] [facility] (BENTYL) 10 7-29 by mouth 4 [facility] k[facility] MG capsule 13:03: (four) Medic al 59 times Center daily as needed . escitalopra Yes 20mg QD Take [address] [facility] oxalate 7-29 by mouth [facility] (LEXAPRO) 13:03: daily. Medica l 20 MG 59 Center tablet insulin Yes 70U Inject 70 [facility] 7-[facility] U-100 13:03: subcutaneo Medica l (LEVEMIR) 59 usly once Cente r 100 unit/mL in morning injection . omeprazole Yes 40mg QD Take [address] (PRILOSEC) 7-29 by mouth [facility] 40 MG 13:03: daily. Medical capsule 59 Center traMADoL Yes 50mg Take [address] [facility] (ULTRAM) 50 7-29 by mouth Luke [facility] mg tablet 13:03: every 6 Medic al 59 (six) Center hours as needed for Pain. carvediloL Yes 12.5mg Take 12.[address] [facility] (COREG) 7-29 mg by [facility] 12.5 MG 13:03: mouth 2 Medical tablet 59 (two) Center times daily with breakfast and dinner. home Yes continuous [facility] insulin 7-29 [facility] pump Misc 13:03: Insulin Medic al 59 pump . Center levothyroxi Yes 125ug Take [address] ne 7-29 mcg by [facility] (SYNTHROID, 13:03: mouth Medic al LEVOTHROID) 59 Every Center 125 MCG morning on tablet an empty stomach. promethazin Yes 12.5mg Take 12.[address] [facility] e 7-29 mg by [facility] (PHENERGAN) 13:03: mouth Medic al 12.5 MG 59 every 12 Center tablet (twelve) hours as needed for Nausea . atorvastati Yes 40mg QD Take [address] [facility] (LIPITOR) 7-29 by mouth Luke [facility] 40 MG 13:03: daily. Medical tablet 59 Center dicyclomine Yes 10mg Take [address] [facility] (BENTYL) 10 7-29 by mouth 4 Elena k[facility] MG capsule 13:03: (four) Medic al 59 times Center daily as needed . escitalopra Yes 20mg QD Take [address] [facility] oxalate 7-29 by mouth [facility] (LEXAPRO) 13:03: daily. Medica l 20 MG 59 Center tablet insulin Yes 70U Inject 70 [facility] 7-[facility] U-100 13:03: subcutaneo Medica l (LEVEMIR) 59 usly once Cente r 100 unit/mL in morning injection . omeprazole Yes 40mg QD Take [address] (PRILOSEC) 7-29 by mouth [facility] 40 MG 13:03: daily. Medical capsule 59 Center traMADoL Yes 50mg Take [address] [facility] (ULTRAM) 50 7-29 by mouth Luke [facility] mg tablet 13:03: every 6 Medic al 59 (six) Center hours as needed for Pain. carvediloL Yes 12.5mg Take 12.[address] [facility] (COREG) 7-29 mg by [facility] 12.5 MG 13:03: mouth 2 Medical tablet 59 (two) Center times daily with breakfast and dinner. home Yes continuous [facility] insulin 7-29 [facility] pump Misc 13:03: Insulin Medic al 59 pump . Center levothyroxi Yes 125ug Take [address] ne 7-29 mcg by [facility] (SYNTHROID, 13:03: mouth Medic al LEVOTHROID) 59 Every Center 125 MCG morning on tablet an empty stomach. promethazin Yes 12.5mg Take 12.[address] [facility] 7-29 mg by [facility] (PHENERGAN) 13:03: mouth Medic al 12.5 MG 59 every 12 Center tablet (twelve) hours as needed for Nausea . atorvastati Yes 40mg QD Take [address] [facility] (LIPITOR) 7-29 by mouth [facility] 40 MG 13:03: daily. Medical tablet 59 Center dicyclomine Yes 10mg Take [address] [facility] (BENTYL) 10 7-29 by mouth 4 Elena kes MG capsule 13:03: (four) Medic al 59 times Center daily as needed . escitalopra Yes 20mg QD Take [address] [facility] oxalate 7-29 by mouth [facility] (LEXAPRO) 13:03: daily. Medica l 20 MG 59 Center tablet insulin Yes 70U Inject 70 [facility] U-100 13:03: subcutaneo Medica l (LEVEMIR) 59 usly once Cente r 100 unit/mL in morning injection . omeprazole Yes 40mg QD Take [address] (PRILOSEC) 7-29 by mouth [facility] 40 MG 13:03: daily. Medical capsule 59 Center traMADoL Yes 50mg Take [address] [facility] (ULTRAM) 50 7-29 by mouth [facility] mg tablet 13:03: every 6 Medic al 59 (six) Center hours as needed for Pain. carvediloL Yes 12.5mg Take 12.[address] [facility] (COREG) 7-29 mg by [facility] 12.5 MG 13:03: mouth 2 Medical tablet 59 (two) Center times daily with breakfast and dinner. home 2020-[address] [facility] insulin 7-29 [facility] pump Misc 13:03: Insulin Medic al 59 pump . Center oxycodone 0 Yes 1{tbl} Take 1 [facility] (ROXICODONE 7-28 Tablet by [facility] ) 5 MG 00:00: mouth of immediate 00 every 4 Medicin release hours as e tablet needed for Pain. ketorolac 0 Yes 10mg Take 1 [facility] (TORADOL) 7-28 Tablet by Colle ge 10 MG 00:00: mouth of tablet 00 every 8 Medicin hours. e oxycodone Yes 1{tbl} Take 1 [facility] (ROXICODONE 7-28 Tablet by [facility] ) 5 MG 00:00: mouth of immediate 00 every 4 Medicin release hours as e tablet needed for Pain. ketorolac 0 Yes 10mg Take 1 [facility] (TORADOL) 7-28 Tablet by Colle ge 10 MG 00:00: mouth of tablet 00 every 8 Medicin hours. e oxycodone Yes 1{tbl} Take 1 [facility] (ROXICODONE 7-28 Tablet by [facility] ) 5 MG 00:00: mouth of immediate 00 every 4 Medicin release hours as e tablet needed for Pain. ketorolac 0 Yes 10mg Take 1 [facility] (TORADOL) 7-28 Tablet by Colle ge 10 MG 00:00: mouth of tablet 00 every 8 Medicin hours. e oxycodone 0 Yes 1{tbl} Take 1 [facility] (ROXICODONE 7-28 Tablet by [facility] ) 5 MG 00:00: mouth of immediate 00 every 4 Medicin release hours as e tablet needed for Pain. ketorolac 0 Yes 10mg Take 1 [facility] (TORADOL) 7-28 Tablet by [facility] 10 MG 00:00: mouth of tablet 00 every 8 Medicin hours. e oxycodone Yes 1{tbl} Take 1 [facility] (ROXICODONE 7-28 Tablet by [facility] ) 5 MG 00:00: mouth of immediate 00 every 4 Medicin release hours as e tablet needed for Pain. ketorolac Yes 10mg Take 1 [facility] (TORADOL) 7-28 Tablet by Colle ge 10 MG 00:00: mouth of tablet 00 every 8 Medicin hours. e nystatin Yes Apply [facility] (MYCOSTATIN 7-22 topically [facility] ) ointment 16:11: two times of 12 daily. Medicin e nystatin Yes Apply [facility] (MYCOSTATIN 7-21 topically [facility] ) ointment 09:10: two times of 27 daily. Medicin e traZODone Yes 50mg QD Take [address] [facility] [address] [facility] (DESYREL) 7-21 by mouth [facility] 50 MG 00:00: nightly . Medical tablet 00 [place] traZODone Yes 50mg QD Take [address] [facility] [address] [facility] (DESYREL) 7-21 by mouth [facility] 50 MG 00:00: nightly . Medical tablet 00 [place] traZODone Yes 50mg QD Take [address] [facility] [address] [facility] (DESYREL) 7-21 by mouth [facility] 50 MG 00:00: nightly . Medical tablet 00 [place] traZODone Yes 50mg QD Take [address] [facility] [address] [facility] (DESYREL) 7-21 by mouth [facility] 50 MG 00:00: nightly . Medical tablet 00 [place] escitalopra Yes [id number] 20mg Take 1 [facility] (LEXAPRO) 7-21 Tablet by [facility] 20 MG 00:00: mouth of tablet 00 daily. Medicin e hydrOXYzine Yes TAKE 1 [facility] (ATARAX) 25 7-21 TABLET BY [facility] MG tablet 00:00: MOUTH 3 of 00 TIMES Medicin DAILY e NEEDED FOR ANXIETY FOR UP TO 30 DAYS. trazodone Yes 50mg Take 1 [facility] (DESYREL) 7-21 Tablet by Colle ge 50 MG 00:00: mouth of tablet 00 nightly. Medicin e nystatin Yes Apply [facility] (MYCOSTATIN 7-20 topically [facility] ) ointment 07:45: two times of 50 daily. Medicin e furosemide 2020- No 20mg QD Take [address] [facility] (LASIX) 20 7-13 07-13 by mouth [facility] MG tablet 16:30: 00:00 daily. Medic al 33 :00 Center furosemide 2020- No 20mg QD Take [address] [facility] (LASIX) 20 7-13 07-13 by mouth [facility] MG tablet 16:30: 00:00 daily. Medic al 33 :00 Center furosemide 2020- No 20mg QD Take [address] [facility] (LASIX) 20 7-13 07-13 by mouth [facility] MG tablet 16:30: 00:00 daily. Medic al 33 :00 Center furosemide 2020- No 20mg QD Take [address] [facility] (LASIX) 20 7-13 07-13 by mouth [facility] MG tablet 16:30: 00:00 daily. Medic al 33 :00 Center furosemide Yes Unspecified TAKE [address] [facility] (LASIX) 20 7-13 cirrhosis TABLET BY [facility] MG tablet 00:00: of liver MOUTH Med ical 00 (HCC) TWICE A Center DAY furosemide Yes Unspecified TAKE [address] [facility] (LASIX) 20 7-13 cirrhosis TABLET BY [facility] MG tablet 00:00: of liver MOUTH Med ical 00 (HCC) TWICE A Center DAY furosemide Yes Unspecified TAKE [address] [facility] (LASIX) 20 7-13 cirrhosis TABLET BY [facility] MG tablet 00:00: of liver MOUTH Med ical 00 (HCC) TWICE A Center DAY furosemide Yes Unspecified TAKE [address] [facility] (LASIX) 20 7-13 cirrhosis TABLET BY [facility] MG tablet 00:00: of liver MOUTH Med ical 00 (HCC) TWICE A Center DAY furosemide Yes TAKE 1 [facility] (LASIX) 20 7-13 TABLET BY [facility] MG tablet 00:00: MOUTH of 00 TWICE A Medicin DAY e furosemide Yes TAKE 1 [facility] (LASIX) 20 7-13 TABLET BY [facility] MG tablet 00:00: MOUTH of 00 TWICE A Medicin DAY e furosemide Yes TAKE 1 [facility] (LASIX) 20 7-13 TABLET BY [facility] MG tablet 00:00: MOUTH of 00 TWICE A Medicin DAY e furosemide Yes TAKE 1 [facility] (LASIX) 20 7-13 TABLET BY [facility] MG tablet 00:00: MOUTH of 00 TWICE A Medicin DAY e furosemide Yes TAKE 1 [facility] (LASIX) 20 7-13 TABLET BY Adn[facility] MG tablet 00:00: MOUTH of 00 TWICE A Medicin DAY e furosemide Yes TAKE 1 [facility] (LASIX) 20 7-13 TABLET BY [facility] MG tablet 00:00: MOUTH of 00 TWICE A Medicin DAY e furosemide Yes TAKE 1 [facility] (LASIX) 20 7-13 TABLET BY [facility] MG tablet 00:00: MOUTH of 00 TWICE A Medicin DAY e atorvastati Yes 40mg Take 1 [facility] (LIPITOR) 7-08 Tablet by [facility] 40 MG 00:00: mouth of tablet 00 daily. Medicin e carvedilol Yes [id number] 6.25mg Take 1 [facility] (COREG) - 9105 Tablet by [facility] 6.25 MG 00:00: mouth 2 of tablet 00 times Medicin daily e (with meals). levothyroxi Yes [id number] 125ug Take 1 [facility] - 9105 Tablet by [facility] (SYNTHROID) 00:00: mouth of 125 MCG 00 daily. Medicin tablet e Insulin Yes [id number] 70U Inject 70 [facility] Detemir 7-08 Units as [facility] (LEVEMIR 00:00: directed of FLEXTOUCH) 00 every Medicin 100 UNIT/ML morning. e SOPN atorvastati Yes 40mg Take 1 [facility] (LIPITOR) 7-08 Tablet by [facility] 40 MG 00:00: mouth of tablet 00 daily. Medicin e carvedilol Yes [id number] 6.25mg Take 1 [facility] (COREG) 7- 9105 Tablet by Ney 6.25 MG 00:00: mouth 2 of tablet 00 times Medicin daily e (with meals). levothyroxi Yes [id number] 125ug Take 1 [facility] 7- 9105 Tablet by [facility] (SYNTHROID) 00:00: mouth of 125 MCG 00 daily. Medicin tablet e Insulin Yes [id number] 70U Inject 70 [facility] 7-08 Units as [facility] (LEVEMIR 00:00: directed of FLEXTOUCH) 00 every Medicin 100 UNIT/ML morning. e SOPN atorvastati 2020-0 Yes 40mg Take 1 [facility] (LIPITOR) 7-08 Tablet by [facility] 40 MG 00:00: mouth of tablet 00 daily. Medicin e carvedilol 2020-0 Yes [id number] 6.25mg Take 1 [facility] (COREG) 7- 9105 Tablet by [facility] 6.25 MG 00:00: mouth 2 of tablet 00 times Medicin daily e (with meals). levothyroxi 2020-0 Yes [id number] 125ug Take 1 [facility] - 9105 Tablet by [facility] (SYNTHROID) 00:00: mouth of 125 MCG 00 daily. Medicin tablet e Insulin 2020-0 Yes [id number] 70U Inject 70 [facility]em[facility] 7-08 Units as [facility] (LEVEMIR 00:00: directed of FLEXTOUCH) 00 every Medicin 100 UNIT/ML morning. e SOPN atorvastati 2020-0 Yes 40mg Take 1 [facility] (LIPITOR) 7-08 Tablet by [facility] 40 MG 00:00: mouth of tablet 00 daily. Medicin e carvedilol 2020-0 Yes [id number] 6.25mg Take 1 [facility] (COREG) 7- 9105 Tablet by [facility] 6.25 MG 00:00: mouth 2 of tablet 00 times Medicin daily e (with meals). levothyroxi 2020-0 Yes [id number] 125ug Take 1 [facility] - 9105 Tablet by [facility] (SYNTHROID) 00:00: mouth of 125 MCG 00 daily. Medicin tablet e Insulin 2020-0 Yes [id number] 70U Inject 70 [facility] 7-08 Units as [facility] (LEVEMIR 00:00: directed of FLEXTOUCH) 00 every Medicin 100 UNIT/ML morning. e SOPN atorvastati 2020-0 Yes 40mg Take 1 [facility] (LIPITOR) 7-08 Tablet by [facility] 40 MG 00:00: mouth of tablet 00 daily. Medicin e levothyroxi 2020-0 Yes [id number] 125ug Take 1 [facility] 7- 9105 Tablet by [facility] (SYNTHROID) 00:00: mouth of 125 MCG 00 daily. Medicin tablet e Insulin 2020-0 Yes [id number] 70U Inject 70 [facility]em[facility] 7-08 Units as [facility] (LEVEMIR 00:00: directed of FLEXTOUCH) 00 every Medicin 100 UNIT/ML morning. e SOPN atorvastati 2020-0 Yes 40mg Take 1 [facility] (LIPITOR) 7-08 Tablet by [facility] 40 MG 00:00: mouth of tablet 00 daily. Medicin e levothyroxi 2020-0 Yes [id number] 125ug Take 1 [facility] ne 7-08 9105 Tablet by [facility] (SYNTHROID) 00:00: mouth of 125 MCG 00 daily. Medicin tablet e Insulin 2020-0 Yes [id number] 70U Inject 70 [facility]emir 7-08 Units as [facility] (LEVEMIR 00:00: directed of FLEXTOUCH) 00 every Medicin 100 UNIT/ML morning. e SOPN atorvastati 2020-0 Yes 40mg Take 1 [facility] (LIPITOR) 7-08 Tablet by [facility] 40 MG 00:00: mouth of tablet 00 daily. Medicin e levothyroxi 2020-0 Yes [id number] 125ug Take 1 [facility] 7- 9105 Tablet by [facility] (SYNTHROID) 00:00: mouth of 125 MCG 00 daily. Medicin tablet e Insulin 2020-0 Yes [id number] 70U Inject 70 [facility] 7-08 Units as [facility] (LEVEMIR 00:00: directed of FLEXTOUCH) 00 every Medicin 100 UNIT/ML morning. e SOPN atorvastati 2020-0 Yes 40mg Take 1 [facility] (LIPITOR) 7-08 Tablet by [facility] 40 MG 00:00: mouth of tablet 00 daily. Medicin e levothyroxi 2020-0 Yes [id number] 125ug Take 1 [facility] 7- 9105 Tablet by [facility] (SYNTHROID) 00:00: mouth of 125 MCG 00 daily. Medicin tablet e Insulin 2020-0 Yes [id number] 70U Inject 70 [facility] 7-08 Units as [facility] (LEVEMIR 00:00: directed of FLEXTOUCH) 00 every Medicin 100 UNIT/ML morning. e SOPN spironolact 2020-0 Yes 50mg Take 1 [facility] one 7-06 Tablet by [facility] (ALDACTONE) 00:00: mouth of 50 MG 00 daily. Medicin tablet e omeprazole 2021-0 Yes [id number] TAKE 1 [facility] (PRILOSEC) 7-06 CAPSULE BY [facility] 40 MG 00:00: MOUTH of capsule 00 EVERY DAY Medicin e promethazin 2021-0 Yes [id number] TAKE 1 [facility] e 7-06 TABLET BY [facility] (PHENERGAN) 00:00: MOUTH of 12.5 MG 00 EVERY 8 Medicin tablet HOURS e NEEDED FOR NAUSEA spironolact 2021-0 Yes 50mg Take 1 [facility] one 7-06 Tablet by [facility] (ALDACTONE) 00:00: mouth of 50 MG 00 daily. Medicin tablet e omeprazole 2021-0 Yes [id number] TAKE 1 [facility] (PRILOSEC) 7-06 CAPSULE BY [facility] 40 MG 00:00: MOUTH of capsule 00 EVERY DAY Medicin e promethazin 2021-0 Yes [id number] TAKE 1 [facility] e 7-06 TABLET BY [facility] (PHENERGAN) 00:00: MOUTH of 12.5 MG 00 EVERY 8 Medicin tablet HOURS e NEEDED FOR NAUSEA spironolact 2021-0 Yes 50mg Take 1 [facility] one 7-06 Tablet by [facility] (ALDACTONE) 00:00: mouth of 50 MG 00 daily. Medicin tablet e omeprazole 2021-0 Yes [id number] TAKE 1 [facility] (PRILOSEC) 7-06 CAPSULE BY [facility] 40 MG 00:00: MOUTH of capsule 00 EVERY DAY Medicin e promethazin 2021-0 Yes [id number] TAKE 1 [facility] e 7-06 TABLET BY [facility] (PHENERGAN) 00:00: MOUTH of 12.5 MG 00 EVERY 8 Medicin tablet HOURS e NEEDED FOR NAUSEA spironolact 2021-0 Yes 50mg Take 1 [facility] one 7-06 Tablet by [facility] (ALDACTONE) 00:00: mouth of 50 MG 00 daily. Medicin tablet e omeprazole 2021-0 Yes [id number] TAKE 1 [facility] (PRILOSEC) 7-06 CAPSULE BY Col lege 40 MG 00:00: MOUTH of capsule 00 EVERY DAY Medicin e promethazin 2021-0 Yes [id number] TAKE 1 [facility] e 7-06 TABLET BY Ney (PHENERGAN) 00:00: MOUTH of 12.5 MG 00 EVERY 8 Medicin tablet HOURS e NEEDED FOR NAUSEA spironolact 2021-0 Yes 50mg Take 1 [facility] or one 7-06 Tablet by Ney (ALDACTONE) 00:00: mouth of 50 MG 00 daily. Medicin tablet e omeprazole 2021-0 Yes [id number] TAKE 1 [facility] (PRILOSEC) 7-06 CAPSULE BY [facility] 40 MG 00:00: MOUTH of capsule 00 EVERY DAY Medicin e promethazin 2021-0 Yes [id number] TAKE 1 [facility] e 7-06 TABLET BY [facility] (PHENERGAN) 00:00: MOUTH of 12.5 MG 00 EVERY 8 Medicin tablet HOURS e NEEDED FOR NAUSEA spironolact 2021-0 Yes 50mg Take 1 [facility] one 7-06 Tablet by Ney (ALDACTONE) 00:00: mouth of 50 MG 00 daily. Medicin tablet e omeprazole 2021-0 Yes [id number] TAKE 1 [facility] (PRILOSEC) 7-06 CAPSULE BY [facility] 40 MG 00:00: MOUTH of capsule 00 EVERY DAY Medicin e promethazin 2021-0 Yes [id number] TAKE 1 [facility] e 7-06 TABLET BY [facility] (PHENERGAN) 00:00: MOUTH of 12.5 MG 00 EVERY 8 Medicin tablet HOURS e NEEDED FOR NAUSEA spironolact 2021-0 Yes 50mg Take 1 [facility] one 7-06 Tablet by [facility] (ALDACTONE) 00:00: mouth of 50 MG 00 daily. Medicin tablet e omeprazole 2021-0 Yes [id number] TAKE 1 [facility] (PRILOSEC) 7-06 CAPSULE BY [facility] 40 MG 00:00: MOUTH of capsule 00 EVERY DAY Medicin e promethazin 2021-0 Yes [id number] TAKE 1 [facility] e 7-06 TABLET BY [facility] (PHENERGAN) 00:00: MOUTH of 12.5 MG 00 EVERY 8 Medicin tablet HOURS e NEEDED FOR NAUSEA spironolact 2021-0 Yes 50mg Take 1 [facility] 7-06 Tablet by Ney (ALDACTONE) 00:00: mouth of 50 MG 00 daily. Medicin tablet e omeprazole 2021-0 Yes [id number] TAKE 1 [facility] (PRILOSEC) 7-06 CAPSULE BY [facility] 40 MG 00:00: MOUTH of capsule 00 EVERY DAY Medicin e promethazin 0 Yes [id number] TAKE 1 [facility] e 7-06 TABLET BY [facility]ey (PHENERGAN) 00:00: MOUTH of 12.5 MG 00 EVERY 8 Medicin tablet HOURS e NEEDED FOR NAUSEA Insulin Yes APPLY POD [facility] Disposable 6-21 TOPICALLY [facility] Pump 00:00: AND CHANGE of (OMNIPOD 00 EVERY 72 Medicin DASH 5 PACK HOURS e PODS) [facility] [place] Insulin Yes APPLY POD [facility] Disposable 6-21 TOPICALLY [facility] Pump 00:00: AND CHANGE of (OMNIPOD 00 EVERY 72 Medicin DASH 5 PACK HOURS e PODS) [facility] [place] Insulin Yes APPLY POD [facility] Disposable 6-21 TOPICALLY [facility] Pump 00:00: AND CHANGE of (OMNIPOD 00 EVERY 72 Medicin DASH 5 PACK HOURS e PODS) [facility] [place] Insulin Yes APPLY POD [facility] Disposable 6-21 TOPICALLY [facility] Pump 00:00: AND CHANGE of (OMNIPOD 00 EVERY 72 Medicin DASH 5 PACK HOURS e PODS) [facility] [place] Insulin 0 Yes APPLY POD [facility] Disposable 6-21 TOPICALLY [facility] Pump 00:00: AND CHANGE of (OMNIPOD 00 EVERY 72 Medicin DASH 5 PACK HOURS e PODS) [facility] [place] Insulin 0 Yes APPLY POD [facility] Disposable 6-21 TOPICALLY [facility] Pump 00:00: AND CHANGE of (OMNIPOD 00 EVERY 72 Medicin DASH 5 PACK HOURS e PODS) [facility] [place] Insulin 0 Yes APPLY POD [facility] Disposable 6-21 TOPICALLY [facility] Pump 00:00: AND CHANGE of (OMNIPOD 00 EVERY 72 Medicin DASH 5 PACK HOURS e PODS) [facility] [place] Insulin 0 Yes APPLY POD [facility] Disposable 6-21 TOPICALLY [facility] Pump 00:00: AND CHANGE of (OMNIPOD 00 EVERY 72 Medicin DASH 5 PACK HOURS e PODS) [facility] [place] Insulin Yes APPLY POD [facility] Disposable 6-21 TOPICALLY [facility] Pump 00:00: AND CHANGE of (OMNIPOD 00 EVERY 72 Medicin DASH 5 PACK HOURS e PODS) [facility] [place] nystatin Yes Apply [facility] (MYCOSTATIN 6-16 topically [facility] ) ointment 14:19: two times of 14 daily. Medicin e nystatin Yes Apply [facility] (MYCOSTATIN 6-16 topically [facility] ) ointment 14:19: two times of 14 daily. Medicin e iopamidol 202- No [id number] 65mL 65 mL, [facility] (ISOVUE 03-24 [id number] Intravenou ity of 370-500 mL) 02:17: 02:17 s, ONCE, 1 [place] injection 00 :00 dose, Sun Medic al 65 mL 03/23/21 at [facility] 2130, Routine ondansetron 2020- No 4mg 4 mg, Slow [facility] (ZOFRAN 03-24 IV Push, ity of (PF)) 01:30: 01:45 ONCE, 1 [place] injection 4 00 :00 dose, Sun Med ical mg 03/23/21 at [facility] 2030, JEFERSON morpHINE 2020- No 4mg 4 mg, Slow Un armando injection 4 03-24 IV Push, ity of mg 01:30: 01:45 ONCE, 1 [place] 00 :00 dose, Sun Medical 03/23/21 at [facility] 2030, STAT polyethylen Yes Colon Day before [facility] e glycol 6-10 cancer colonoscop Jason es (MairaYTELY,N 00:00: screening y at 6PM: Medical uLYTELY) 00 Drink 2 L Center 236-22.74-6 of .74 -5.86 Golytely gram over 2 solution hrs. 4 hrs before you leave for colonoscop y: Drink remaining 2L over 1.5 hrs.. polyethylen 2020-0 Yes Colon Day before [facility] e glycol 6-10 cancer colonoscop Jason es (GoLYTELY,N 00:00: screening y at 6PM: Medical uLYTELY) 00 Drink 2 L Center 236-22.74-6 of .74 -5.86 Golytely gram over 2 solution hrs. 4 hrs before you leave for colonoscop y: Drink remaining 2L over 1.5 hrs.. polyethylen 2020-0 Yes Colon Day before [facility] e glycol 6-10 cancer colonoscop Jason es (GoLYTELY,N 00:00: screening y at 6PM: Medical uLYTELY) 00 Drink 2 L Center 236-22.74-6 of .74 -5.86 Golytely gram over 2 solution hrs. 4 hrs before you leave for colonoscop y: Drink remaining 2L over 1.5 hrs.. polyethylen 1-0 Yes Colon Day before [facility] e glycol 6-10 cancer colonoscop Jason wheat (GoLYTELY,N 00:00: screening y at 6PM: Medical uLYTELY) 00 Drink 2 L Center 236-22.74-6 of .74 -5.86 Golytely gram over 2 solution hrs. 4 hrs before you leave for colonoscop y: Drink remaining 2L over 1.5 hrs.. GAVILYTE-G 2021-0 Yes [facility] 236 g 6-10 College suspension 00:00: of 00 Medicin e GAVILYTE-G 2021-0 Yes [facility] 236 g 6-10 College suspension 00:00: of 00 Medicin e GAVILYTE-G 2021-0 Yes [facility] 236 g 6-10 College suspension 00:00: of 00 Medicin e GAVILYTE-G 2021-0 Yes [facility] 236 g 6-10 College suspension 00:00: of 00 Medicin e GAVILYTE-G 2021-0 Yes [facility] 236 g 6-10 [facility] suspension 00:00: of 00 Medicin e GAVILYTE-G 2021-0 Yes [facility] 236 g 6-10 College suspension 00:00: of 00 Medicin e GAVILYTE-G 2021-0 Yes [facility] 236 g 6-10 [facility] suspension 00:00: of 00 Medicin e GAVILYTE-G 2021-0 Yes [facility] 236 g 6-10 College suspension 00:00: of 00 Medicin e GAVILYTE-G 2021-0 Yes [facility] 236 g 6-10 College suspension 00:00: of 00 Medicin e Cholestyram 2020-0 Yes 4g Take 4 g [facility] 4 6-09 by mouth 2 College GM/DOSE 00:00: times of POWD 00 daily Medicin (before e meals). Cholestyram 2020-0 Yes 4g Take 4 g [facility] 4 6-09 by mouth 2 College GM/DOSE 00:00: times of POWD 00 daily Medicin (before e meals). Cholestyram 2021-0 Yes 4g Take 4 g [facility] in[facility] 4 6-09 by mouth 2 College GM/DOSE 00:00: times of POWD 00 daily Medicin (before e meals). Cholestyram 2021-0 Yes 4g Take 4 g [facility] 4 6-09 by mouth 2 College GM/DOSE 00:00: times of POWD daily Medicin (before e meals). Cholestyram 2021-0 Yes 4g Take 4 g [facility] in[facility] 4 6-09 by mouth 2 College GM/DOSE 00:00: times of POWD 00 daily Medicin (before e meals). Cholestyram 1-0 Yes 4g Take 4 g [facility] 4 6-09 by mouth 2 College GM/DOSE 00:00: times of POWD daily Medicin (before e meals). Cholestyram 1-0 Yes 4g Take 4 g [facility] 4 6-09 by mouth 2 College GM/DOSE 00:00: times of POWD daily Medicin (before e meals). Cholestyram 1-0 Yes 4g Take 4 g [facility] 4 6-09 by mouth 2 College GM/DOSE 00:00: times of POWD daily Medicin (before e meals). Cholestyram 2021-0 Yes 4g Take 4 g [facility] 4 6-09 by mouth 2 College GM/DOSE 00:00: times of POWD daily Medicin (before e meals). Cholestyram 1-0 Yes 4g Take 4 g [facility] in[facility] 4 6-09 by mouth 2 College GM/DOSE 00:00: times of POWD 00 daily Medicin (before e meals). rifAXIMin 2021-0 2021- No [id number] 550mg Take 550 [facility] 550 MG TABS 03-19 09-08 mg by Colleg e 00:00: 04:59 mouth two of 00 :00 times Medicin daily for e 90 days. rifAXIMin 2021-0 2021- No [id number] 550mg Take 550 [facility] 550 MG TABS 03-19 09-08 mg by Colleg e 00:00: 04:59 mouth two of 00 :00 times Medicin daily for e 90 days. rifAXIMin 2021-0 2021- No [id number] 550mg Take 550 [facility] 550 MG TABS 6 09-08 mg by Colleg e 00:00: 04:59 mouth two of 00 :00 times Medicin daily for e 90 days. rifAXIMin 2020- No [id number] 550mg Take 550 [facility] 550 MG TABS 6 09-08 mg by [facility] e 00:00: 04:59 mouth two of 00 :00 times Medicin daily for e 90 days. rifAXIMin 2020- No [id number] 550mg Take 550 [facility] 550 MG TABS 6 09-08 mg by Colleg e 00:00: 04:59 mouth two of 00 :00 times Medicin daily for e 90 days. rifAXIMin 2020- No [id number] 550mg Take 550 [facility] 550 MG TABS 03-19-08 mg by [facility] e 00:00: 04:59 mouth two of 00 :00 times Medicin daily for e 90 days. promethazin Yes [id number] TAKE 1 [facility] e 6-07 TABLET BY Ney (PHENERGAN) 00:00: MOUTH of 12.5 MG 00 EVERY 8 Medicin tablet HOURS e NEEDED FOR NAUSEA promethazin Yes [id number] TAKE 1 [facility] 6-07 TABLET BY Ney (PHENERGAN) 00:00: MOUTH of 12.5 MG 00 EVERY 8 Medicin tablet HOURS e NEEDED FOR NAUSEA Apixaban Yes 2.5mg Take 2.5 [facility] (ELIQUIS) 5-07 mg by Ney 2.5 MG TABS 00:00: mouth two o f 00 times Medicin daily. e Apixaban Yes 2.5mg Take 2.5 [facility] (ELIQUIS) 5-07 mg by Ney 2.5 MG TABS 00:00: mouth two o f 00 times Medicin daily. e Apixaban Yes 2.5mg Take 2.5 [facility] (ELIQUIS) 5-07 mg by Ney 2.5 MG TABS 00:00: mouth two o f 00 times Medicin daily. e Apixaban Yes 2.5mg Take 2.5 [facility] (ELIQUIS) 5-07 mg by Ney 2.5 MG TABS 00:00: mouth two o f 00 times Medicin daily. e Apixaban 2020-0 Yes 2.5mg Take 2.5 [facility] (ELIQUIS) 5-07 mg by Ney 2.5 MG TABS 00:00: mouth two o f 00 times Medicin daily. e Apixaban 2020-0 Yes 2.5mg Take 2.5 [facility] (ELIQUIS) 5-07 mg by Ney 2.5 MG TABS 00:00: mouth two o f 00 times Medicin daily. e Apixaban 2020-0 Yes 2.5mg Take 2.5 [facility] (ELIQUIS) 5-07 mg by Ney 2.5 MG TABS 00:00: mouth two o f 00 times Medicin daily. e Apixaban 2020-0 Yes 2.5mg Take 2.5 [facility] (ELIQUIS) 5-07 mg by Ney 2.5 MG TABS 00:00: mouth two o f 00 times Medicin daily. e Apixaban 2020-0 Yes 2.5mg Take 2.5 [facility] (ELIQUIS) 5-07 mg by Ney 2.5 MG TABS 00:00: mouth two o f 00 times Medicin daily. e Apixaban 2020-0 Yes 2.5mg Take 2.5 [facility] (ELIQUIS) 5-07 mg by Ney 2.5 MG TABS 00:00: mouth two o f 00 times Medicin daily. e Apixaban 2020-0 Yes 2.5mg Take 2.5 [facility] (ELIQUIS) 5-07 mg by Ney 2.5 MG TABS 00:00: mouth two o f 00 times Medicin daily. e spironolact 2020-0 2020- No TAKE [address] [facility] one 5-07 06-17 TABLET BY Abby (ALDACTONE) 00:00: 00:00 MOUTH Medi stephani 50 MG 00 :00 EVERY DAY Center tablet spironolact 2020-0 2020- No TAKE [address] [facility] one 5-07 06-17 TABLET BY Abby (ALDACTONE) 00:00: 00:00 MOUTH Medi stephani 50 MG 00 :00 EVERY DAY Center tablet spironolact 2020-0 2020- No TAKE [address] [facility] one 5-07 06-17 TABLET BY Abby (ALDACTONE) 00:00: 00:00 MOUTH Medi stephani 50 MG 00 :00 EVERY DAY Center tablet spironolact 2020- No TAKE [address] [facility] one 02-14 TABLET BY Abby (ALDACTONE) 00:00: 00:00 MOUTH Medi stephani 50 MG 00 :00 EVERY DAY Center tablet nystatin Yes Apply [facility] (MYCOSTATIN 4-27 topically [facility] ) ointment 16:02: two times of 14 daily. Medicin e Insulin Pen Yes [id number] Use on [facility] Needle (PEN 4-22 needle 5 [facility] NEEDLES) 00:00: times a of 31G X 5 MM day Dx Medicin MISC Code: E e 11.9 Insulin Pen Yes [id number] Use on [facility] Needle (PEN 4-22 needle 5 [facility] NEEDLES) 00:00: times a of 31G X 5 MM day Dx Medicin MISC Code: E e 11.9 Insulin Pen Yes [id number] Use on [facility] Needle (PEN 4-22 needle 5 [facility] NEEDLES) 00:00: times a of 31G X 5 MM day Dx Medicin MISC Code: E e 11.9 Insulin Pen Yes [id number] Use on [facility] Needle (PEN 4-22 needle 5 [facility] NEEDLES) 00:00: times a of 31G X 5 MM day Dx Medicin MISC Code: E e 11.9 Insulin Pen Yes [id number] Use on [facility] Needle (PEN 4-22 needle 5 Danny [facility]ge NEEDLES) 00:00: times a of 31G X 5 MM day Dx Medicin MISC Code: E e 11.9 Insulin Pen Yes [id number] Use on [facility] Needle (PEN 4-22 needle 5 Danny [facility]ge NEEDLES) 00:00: times a of 31G X 5 MM day Dx Medicin MISC Code: E e 11.9 Insulin Pen 0 Yes [id number] Use on [facility] Needle (PEN 4-22 needle 5 [facility] NEEDLES) 00:00: times a of 31G X 5 MM day Dx Medicin MISC Code: E e 11.9 Insulin Pen Yes [id number] Use on [facility] Needle (PEN 4-22 needle 5 [facility] NEEDLES) 00:00: times a of 31G X 5 MM 00 day Dx Medicin MISC Code: E e 11.9 Insulin Pen 0 Yes [id number] Use on [facility] Needle (PEN 4-22 needle 5 [facility] NEEDLES) 00:00: times a of 31G X 5 MM 00 day Dx Medicin MISC Code: E e 11.9 Insulin Pen 0 Yes [id number] Use on [facility] Needle (PEN 4-22 needle 5 [facility]ge NEEDLES) 00:00: times a of 31G X 5 MM 00 day Dx Medicin MISC Code: E e 11.9 Insulin Pen 0 Yes [id number] Use on [facility] Needle (PEN 4-22 needle 5 [facility]ge NEEDLES) 00:00: times a of 31G X 5 MM 00 day Dx Medicin MISC Code: E e 11.9 HumaLOG Yes USE WITH [facility] U-100 4-21 INSULIN [facility] Insulin 100 00:00: PUMP UP TO Medical unit/mL 00 165 UNITS Center injection PER DAY. HumaLOG Yes USE WITH [facility] U-100 4-21 INSULIN [facility] Insulin 100 00:00: PUMP UP TO Medical unit/mL 00 165 UNITS Center injection PER DAY. HumaLOG 0 Yes USE WITH [facility] U-100 4-21 INSULIN [facility] Insulin 100 00:00: PUMP UP TO Medical unit/mL 00 165 UNITS Center injection PER DAY. HumaLOG Yes USE WITH [facility] U-100 4-21 INSULIN [facility] Insulin 100 00:00: PUMP UP TO Medical unit/mL 00 165 UNITS Center injection PER DAY. insulin 0 Yes [id number] Patient [facility] lispro 4-21 using up [facility] (HUMALOG) 00:00: to 165 of 100 UNIT/ML 00 units per Med icin injection day with e insulin pump insulin 0 Yes [id number] Patient [facility] lispro 4-21 using up [facility] (HUMALOG) 00:00: to 165 of 100 UNIT/ML 00 units per Med icin injection day with e insulin pump insulin 2020-0 Yes [id number] Patient [facility] lispro 4-21 using up [facility] (HUMALOG) 00:00: to 165 of 100 UNIT/ML 00 units per Med icin injection day with e insulin pump insulin 0 Yes [id number] Patient [facility] lispro 4-21 using [facility] (HUMALOG) 00:00: to 165 of 100 UNIT/ML 00 units per Med icin injection day with e insulin pump insulin 0 Yes [id number] Patient [facility] lispro 4-21 using [facility] [place] (HUMALOG) 00:00: to 165 of 100 UNIT/ML 00 units per Med icin injection day with e insulin pump insulin 0 Yes [id number] Patient [facility] lispro 4-21 using [facility] (HUMALOG) 00:00: to 165 of 100 UNIT/ML 00 units per Med icin injection day with e insulin pump insulin Yes [id number] Patient [facility] lispro 4-21 using [facility] (HUMALOG) 00:00: to 165 of 100 UNIT/ML 00 units per Med icin injection day with e insulin pump insulin 0 Yes [id number] Patient [facility] lispro 4-21 using [facility] [place] (HUMALOG) 00:00: to 165 of 100 UNIT/ML 00 units per Med icin injection day with e insulin pump insulin 0 Yes [id number] Patient [facility] lispro 4-21 using [facility] [place] (HUMALOG) 00:00: to 165 of 100 UNIT/ML 00 units per Med icin injection day with e insulin pump insulin 0 Yes [id number] Patient [facility] lispro 4-21 using [facility] [place] (HUMALOG) 00:00: to 165 of 100 UNIT/ML 00 units per Med icin injection day with e insulin pump insulin 0 Yes [id number] Patient [facility] lispro 4-21 using [facility] [place] (HUMALOG) 00:00: to 165 of 100 UNIT/ML 00 units per Med icin injection day with e insulin pump insulin 2020- No 4U Inject [facility] aspart 4-13 04-13 4-22 Units [facility] U-100 14:46: 00:00 subcutaneo Medic al (NOVOLOG) 19 :00 usly 3 Center 100 unit/mL (three) (3 mL) InPn times daily before meals 12 units before meals with sliding scale. insulin 2020- No 4U Inject [facility] aspart 4-13 04-13 4-22 Units [facility] U-100 14:46: 00:00 subcutaneo Medic al (NOVOLOG) 19 :00 usly 3 Center 100 unit/mL (three) (3 mL) InPn times daily before meals 12 units before meals with sliding scale. insulin 2020-2020- No 4U Inject [facility] aspart 4-13 04-13 4-22 Units [facility] U-100 14:46: 00:00 subcutaneo Medic al (NOVOLOG) 19 :00 usly 3 Center 100 unit/mL (three) (3 mL) InPn times daily before meals 12 units before meals with sliding scale. insulin 2020-2020- No 4U Inject [facility] aspart 4-13 -13 4-22 Units [facility] U-100 14:46: 00:00 subcutaneo Medic al (NOVOLOG) 19 :00 usly 3 Center 100 unit/mL (three) (3 mL) InPn times daily before meals 12 units before meals with sliding scale. traZODone 2020- No 50mg QD Take [address] (DESYREL) 01-21-13 by mouth [facility] 50 MG 14:42: 00:00 nightly. Medical tablet 38 :00 [place] traZODone 2020- No 50mg QD Take [address] (DESYREL) 01-21-13 by mouth [facility] 50 MG 14:42: 00:00 nightly. Medical tablet 38 :00 [place] traZODone 2020- No 50mg QD Take [address] (DESYREL) 01-21-13 by mouth [facility] 50 MG 14:42: 00:00 nightly. Medical tablet 38 :00 [place] traZODone 2020-2020- No 50mg QD Take [address] (DESYREL) 01-21-13 by mouth [facility] 50 MG 14:42: 00:00 nightly. Medical tablet 38 :00 Center ferrous 2020- No 325mg Take [address] [facility] sulfate 325 -21 01-13 mg by [facility] (65 FE) MG 14:29: 00:00 mouth Medic al tablet 24 :00 daily with Center breakfast. ferrous 2020- No 325mg Take [address] sulfate 325 4-13 04-13 mg by [facility] (65 FE) MG 14:29: 00:00 mouth Medic al tablet 24 :00 daily with Center breakfast. ferrous 2020- No 325mg Take [address] sulfate 325 4-13 04-13 mg by [facility] (65 FE) MG 14:29: 00:00 mouth Medic al tablet 24 :00 daily with Center breakfast. ferrous 2020- No 325mg Take [address] sulfate 325 4-13 04-13 mg by [facility] (65 FE) MG 14:29: 00:00 mouth Medic al tablet 24 :00 daily with Center breakfast. HumaLOG 2020- No 4U [id number] Inject [facility] KwikPen 4-11 -16 [id number] 4-22 Units [facility] Insulin 100 00:00: 00:00 3D subcutaneo Medical unit/mL 00 :00 usly 3 Center InPn (three) times daily. HumaLOG 2020- No 4U [id number] Inject [facility] KwikPen 4-11 -16 [id number] 4-22 Units [facility] Insulin 100 00:00: 00:00 3D subcutaneo Medical unit/mL 00 :00 usly 3 Center InPn (three) times daily. HumaLOG 2020- No 4U [id number] Inject [facility] KwikPen 4-11 -16 [id number] 4-22 Units [facility] Insulin 100 00:00: 00:00 3D subcutaneo Medical unit/mL 00 :00 usly 3 Center InPn (three) times daily. HumaLOG 2020- No 4U [id number] Inject [facility] KwikPen 4-11 -16 [id number] 4-22 Units [facility] Insulin 100 00:00: 00:00 3D subcutaneo Medical unit/mL 00 :00 usly 3 Center InPn (three) times daily. Cholecalcif Yes TAKE 1 [facility] 4-10 CAPSULE BY Ney (VITAMIN 00:00: MOUTH of D3) 50 MCG 00 EVERY DAY [facility] (1999) e CAPS Cholecalcif 2021-0 Yes TAKE 1 [facility] [place] 4-10 CAPSULE BY College (VITAMIN 00:00: MOUTH of D3) 50 MCG 00 EVERY DAY [facility]eth (1999) e CAPS Cholecalcif 2021-0 Yes TAKE 1 [facility] [place] 4-10 CAPSULE BY [facility] (VITAMIN 00:00: MOUTH of D3) 50 MCG 00 EVERY DAY [facility] (1999) e CAPS Cholecalcif 2021-0 Yes TAKE 1 [facility] 4-10 CAPSULE BY [facility] (VITAMIN 00:00: MOUTH of D3) 50 MCG 00 EVERY DAY [facility] (1999) e CAPS Cholecalcif 2021-0 Yes TAKE 1 [facility] 4-10 CAPSULE BY [facility] (VITAMIN 00:00: MOUTH of D3) 50 MCG 00 EVERY DAY [facility] (1999) e CAPS Cholecalcif 2021-0 Yes TAKE 1 [facility] 4-10 CAPSULE BY [facility] (VITAMIN 00:00: MOUTH of D3) 50 MCG 00 EVERY DAY [facility] (1999) e CAPS Cholecalcif 2021-0 Yes TAKE 1 [facility] 4-10 CAPSULE BY [facility] (VITAMIN 00:00: MOUTH of D3) 50 MCG 00 EVERY DAY [facility] (1999) e CAPS Cholecalcif 2021-0 Yes TAKE 1 [facility] 4-10 CAPSULE BY [facility] (VITAMIN 00:00: MOUTH of D3) 50 MCG 00 EVERY DAY [facility] (1999) e CAPS Cholecalcif 2021-0 Yes TAKE 1 [facility] 4-10 CAPSULE BY [facility] (VITAMIN 00:00: MOUTH of D3) 50 MCG 00 EVERY DAY [facility] (1999) e CAPS dexAMETHaso 2021-0 2021- No 6mg QD Take [address] [facility] ne 4-10 04-12 tablet (6 [facility] (DECADRON) 00:00: 23:59 mg total) M edical 6 MG tablet 00 :00 by mouth Cent er daily for 2 days. dexAMETHaso 2021-0 2021- No 6mg QD Take [address] [facility] ne 4-10 04-12 tablet (6 [facility] (DECADRON) 00:00: 23:59 mg total) M edical 6 MG tablet 00 :00 by mouth Cent er daily for 2 days. dexAMETHaso 2021-0 2021- No 6mg QD Take [address] [facility] ne 4-10 04-12 tablet (6 [facility] (DECADRON) 00:00: 23:59 mg total) M edical 6 MG tablet 00 :00 by mouth Cent er daily for 2 days. dexAMETHaso 2020- No 6mg QD Take [address] [facility] ne 4-07 14-12 tablet (6 [facility] (DECADRON) 00:00: 23:59 mg total) M edical 6 MG tablet 00 :00 by mouth Cent er daily for 2 days. carvedilol 2020- No 6.25mg Take 6.[address] [facility] (COREG) 4-09 04-09 mg by [facility] 6.25 MG 11:11: 00:00 mouth 2 Medica l tablet 51 :00 (two) Center times daily with breakfast and dinner. carvedilol 2020- No 6.25mg Take 6.[address] (COREG) 4- 04-09 mg by [facility] 6.25 MG 11:11: 00:00 mouth 2 Medica l tablet 51 :00 (two) Center times daily with breakfast and dinner. carvedilol 2020- No 6.25mg Take 6.[address] (COREG) 4- 04-09 mg by [facility] 6.25 MG 11:11: 00:00 mouth 2 Medica l tablet 51 :00 (two) Center times daily with breakfast and dinner. carvedilol 2020- No 6.25mg Take 6.[address] (COREG) 4-09 04-09 mg by [facility] 6.25 MG 11:11: 00:00 mouth 2 Medica l tablet 51 :00 (two) Center times daily with breakfast and dinner. carvediloL 2020- No 3.125mg Take [address] (COREG) - 05-09 tablet [facility] 3.125 MG 00:00: 23:59 (3.125 mg Med ical tablet 00 :00 total) by Center mouth 2 (two) times daily with breakfast and dinner for 30 days. cholecalcif 2020- No 2000U QD Take [address] [facility] 2,000 - 05-09 tablet [facility] unit Tab 00:00: 23:59 (2,000 Medica l 00 :00 Units Center total) by mouth daily for 30 days. carvediloL 2020- No 3.125mg Take [address] (COREG) 01-17-09 tablet [facility] 3.125 MG 00:00: 23:59 (3.125 mg Med ical tablet 00 :00 total) by Center mouth 2 (two) times daily with breakfast and dinner for 30 days. cholecalcif 2020- No 2000U QD Take [address] [facility] 2,000 01-17- tablet [facility] unit Tab 00:00: 23:59 (2,000 Medica l 00 :00 Units Center total) by mouth daily for 30 days. carvediloL 2020-2020- No 3.125mg Take [address] (COREG) 01-17 tablet [facility] 3.125 MG 00:00: 23:59 (3.125 mg Med ical tablet 00 :00 total) by Center mouth 2 (two) times daily with breakfast and dinner for 30 days. cholecalcif 2020-2020- No 2000U QD Take [address] [facility] 2,000 01-17 tablet [facility] unit Tab 00:00: 23:59 (2,000 Medica l 00 :00 Units Center total) by mouth daily for 30 days. carvediloL 2020- No 3.125mg Take [address] (COREG) 01-17 tablet [facility] 3.125 MG 00:00: 23:59 (3.125 mg Med ical tablet 00 :00 total) by Center mouth 2 (two) times daily with breakfast and dinner for 30 days. cholecalcif 2020- No 2000U QD Take [address] [facility] 2,000 01-17 tablet [facility] unit Tab 00:00: 23:59 (2,000 Medica l 00 :00 Units Center total) by mouth daily for 30 days. polyethylen 2020- No 17g Q.5D Take [address] [facility] e glycol 01-17 by mouth 2 [facility] (GLYCOLAX) 00:00: 00:00 (two) Medic al 17 gram 00 :00 times Center packet daily for 30 days. dextrometho 2021-0 2021- No 5mL Take [address] [facility] rphan-guaif 01-17-13 by mouth Jason es enesin 00:00: 00:00 every 12 Medica l (ROBITUSSIN 00 :00 (twelve) Cent er -DM) 10-100 hours for mg/5 mL 10 days. liquid polyethylen 1-0 2021- No 17g Q.5D Take [address] [facility] e glycol 01-17-13 by mouth 2 [facility] (GLYCOLAX) 00:00: 00:00 (two) Medic al 17 gram 00 :00 times Center packet daily for 30 days. dextrometho 2021-0 2021- No 5mL Take [address] [facility] rphan-guaif 01-17-13 by mouth [facility] enesin 00:00: 00:00 every 12 Medica l (ROBITUSSIN 00 :00 (twelve) Cent er -DM) 10-100 hours for mg/5 mL 10 days. liquid polyethylen 2020-0 2021- No 17g Q.5D Take [address] [facility] e glycol 01-17-13 by mouth 2 [facility] (GLYCOLAX) 00:00: 00:00 (two) Medic al 17 gram 00 :00 times Center packet daily for 30 days. dextrometho 1-0 2021- No 5mL Take [address] [facility] 01-17-13 by mouth Jason es enesin 00:00: 00:00 every 12 [facility] l (ROBITUSSIN 00 :00 (twelve) Cent er -DM) 10-100 hours for mg/5 mL 10 days. liquid polyethylen 1-0 2021- No 17g Q.5D Take [address] [facility] glycol 01-17-13 by mouth 2 [facility] (GLYCOLAX) 00:00: 00:00 (two) Medic al 17 gram 00 :00 times Center packet daily for 30 days. dextrometho 2021-0 2021- No 5mL Take [address] [facility] 01-17-13 by mouth Jason es enesin 00:00: 00:00 every 12 [facility] l (ROBITUSSIN 00 :00 (twelve) Cent er -DM) 10-100 hours for mg/5 mL 10 days. liquid hydrOXYzine Yes 1{tbl} Take [address] (ATARAX) 25 4-08 tablet by Jason es [facility] tablet 00:00: mouth as Medi stephani 00 needed. Center hydrOXYzine Yes 1{tbl} Take [address] [facility] [address] (ATARAX) 25 4-08 tablet by Jason es [facility] tablet 00:00: mouth as [facility]i stephani 00 needed. Center hydrOXYzine Yes 1{tbl} Take [address] (ATARAX) 25 4-08 tablet by Jason es [facility] tablet 00:00: mouth as Medi [facility] 00 needed. Center hydrOXYzine Yes 1{tbl} Take [address] [facility] (ATARAX) 25 4-08 tablet by Jason es MG tablet 00:00: mouth as Medi stephani 00 needed. Center hydrOXYzine Yes TAKE 1 [facility] (ATARAX) 25 4-08 TABLET BY [facility] MG tablet 00:00: MOUTH 3 of 00 TIMES Medicin DAILY e NEEDED FOR ANXIETY FOR UP TO 30 DAYS. hydrOXYzine Yes TAKE 1 [facility] (ATARAX) 25 4-08 TABLET BY [facility] MG tablet 00:00: MOUTH 3 of 00 TIMES Medicin DAILY e NEEDED FOR ANXIETY FOR UP TO 30 DAYS. hydrOXYzine Yes TAKE 1 [facility] (ATARAX) 25 4-08 TABLET BY [facility] MG tablet 00:00: MOUTH 3 of 00 TIMES Medicin DAILY e NEEDED FOR ANXIETY FOR UP TO 30 DAYS. albuterol 2020- No 2{puff} [address] [facility] sulfate 4-10 14-13 [facility] (ProAir 00:00: 00:00 route. Medical RespiClick) 00 :00 Center 90 mcg/actuati on AePB albuterol 2020- No 2{puff} [address] [facility] sulfate 4-10 14-13 [facility] (ProAir 00:00: 00:00 route. Medical RespiClick) 00 :00 Center 90 mcg/actuati on AePB albuterol 2020- No 2{puff} [address] [facility] sulfate 4-10 14-13 [facility] (ProAir 00:00: 00:00 route. Medical RespiClick) 00 :00 [place] 90 mcg/actuati on AePB albuterol 2020-0 2020- No 2{puff} [address] [facility] sulfate 01-09-13 [facility] (ProAir 00:00: 00:00 route. Medical RespiClick) 00 :00 [place] 90 mcg/actuati on AePB predniSONE 2020-0 2020- No [facility] (DELTASONE) 3-09 [facility] 20 MG 00:00: 00:00 Medical tablet 00 :00 [place] predniSONE 2020-0 2021- No [facility] (DELTASONE) 3 04-09 [facility] 20 MG 00:00: 00:00 Medical tablet 00 :00 [place] predniSONE 2020-0 2020- No [facility] (DELTASONE) 3 04-09 [facility] 20 MG 00:00: 00:00 Medical tablet 00 :00 [place] predniSONE 2020-0 2020- No [facility] (DELTASONE) 3 04-09 [facility] 20 MG 00:00: 00:00 Medical tablet 00 :00 [place] spironolact 2020-0 Yes 50mg Take 1 [facility] one 3-24 Tablet by [facility] (ALDACTONE) 00:00: mouth of 50 MG 00 daily. Medicin tablet e omeprazole 2020-0 Yes [id number] TAKE 1 [facility] (PRILOSEC) 3-24 CAPSULE BY [facility] 40 MG 00:00: MOUTH of capsule 00 EVERY DAY Medicin e spironolact 2020-0 Yes 50mg Take 1 [facility] one 3-24 Tablet by [facility] (ALDACTONE) 00:00: mouth of 50 MG 00 daily. Medicin tablet e omeprazole 2020-0 Yes [id number] TAKE 1 [facility] (PRILOSEC) 3-24 CAPSULE BY [facility] 40 MG 00:00: MOUTH of capsule 00 EVERY DAY Medicin e spironolact 2020-0 Yes 50mg Take 1 [facility] one 3-24 Tablet by [facility] (ALDACTONE) 00:00: mouth of 50 MG 00 daily. Medicin tablet e omeprazole 2020-0 Yes [id number] TAKE 1 [facility] (PRILOSEC) 3-24 CAPSULE BY [facility] 40 MG 00:00: MOUTH of capsule 00 EVERY DAY Medicin e DULoxetine 2020- No 60mg QD Take [address] [facility] (CYMBALTA) 3-18 03-18 by mouth Luke [facility] 60 MG 15:57: 00:00 nightly. Medical capsule 30 :00 [place] DULoxetine 2020- No 60mg QD Take [address] [facility] (CYMBALTA) 3-18 03-18 by mouth Luke [facility] 60 MG 15:57: 00:00 nightly. Medical capsule 30 :00 Center DULoxetine 2020- No 60mg QD Take [address] [facility] (CYMBALTA) 3-18 -18 by mouth Luke [facility] 60 MG 15:57: 00:00 nightly. Medical capsule 30 :00 Center DULoxetine 2020- No 60mg QD Take [address] [facility] (CYMBALTA) 3-18 03-18 by mouth Luke [facility] 60 MG 15:57: 00:00 nightly. Medical capsule 30 :00 [place] gabapentin 2020- No 300mg Take [address] [facility] (NEURONTIN) 3-18 03-18 mg by [facility] 300 MG 15:57: 00:00 mouth 3 Medical capsule 12 :00 (three) Center times daily as needed. gabapentin 2020- No 300mg Take [address] (NEURONTIN) 3-18 03-18 mg by [facility] 300 MG 15:57: 00:00 mouth 3 Medical capsule 12 :00 (three) Center times daily as needed. gabapentin 2020-2020- No 300mg Take [address] (NEURONTIN) 3-18 03-18 mg by [facility] 300 MG 15:57: 00:00 mouth 3 Medical capsule 12 :00 (three) Center times daily as needed. gabapentin 2020- No 300mg Take [address] (NEURONTIN) 3-18 03-18 mg by [facility] 300 MG 15:57: 00:00 mouth 3 Medical capsule 12 :00 (three) Center times daily as needed. hyoscyamine 2020- No .75mg Q.5D Take 0.[address] [facility] (LEVBID) 3-18 03-18 mg by [facility] 0.375 mg 12 15:56: 00:00 mouth 2 Me dical hr tablet 34 :00 (two) Center times daily 2 tablet of 0.375 twice day. pilocarpine 2020- No 5mg Take [address] [facility] (SALAGEN) 5 3-18 03-18 by mouth Jason es MG tablet 15:56: 00:00 once. Medica l 34 :00 [place] enoxaparin 2020- No Q.5D Inject [facility] (LOVENOX) 3-18 03-18 subcutaneo Jason es 80 mg/0.8 15:56: 00:00 usly 2 Medic al mL Syrg 34 :00 (two) Center times daily . hyoscyamine 2020-2020- No .75mg Q.5D Take 0.[address] [facility] (LEVBID) 3-18 03-18 mg [facility] 0.375 mg 12 15:56: 00:00 mouth 2 Me dical hr tablet 34 :00 (two) Center times daily 2 tablet of 0.375 twice day. pilocarpine 2020- No 5mg Take [address] [facility] (SALAGEN) 5 3-18 03-18 by mouth Jason es MG tablet 15:56: 00:00 once. Medica l 34 :00 [place] enoxaparin 2020-2020- No Q.5D Inject [facility] (LOVENOX) 3-18 03-18 subcutaneo Jason es 80 mg/0.8 15:56: 00:00 usly 2 Medic al mL Syrg 34 :00 (two) Center times daily . hyoscyamine 2020-2020- No .75mg Q.5D Take 0.[address] [facility] (LEVBID) 3-18 03-18 mg by [facility] 0.375 mg 12 15:56: 00:00 mouth 2 Me dical hr tablet 34 :00 (two) Center times daily 2 tablet of 0.375 twice day. pilocarpine 2020- No 5mg Take [address] [facility] (SALAGEN) 5 3-18 03-18 by mouth Jason es MG tablet 15:56: 00:00 once. Medica l 34 :00 [place] enoxaparin 2020-2020- No Q.5D Inject [facility] (LOVENOX) 3-18 03-18 subcutaneo Jason es 80 mg/0.8 15:56: 00:00 usly 2 Medic al mL Syrg 34 :00 (two) Center times daily . hyoscyamine 2020- No .75mg Q.5D Take 0.[address] [facility] (LEVBID) -18 03-18 mg by [facility] 0.375 mg 12 15:56: 00:00 mouth 2 Me dical hr tablet 34 :00 (two) Center times daily 2 tablet of 0.375 twice day. pilocarpine 2020- No 5mg Take [address] [facility] (SALAGEN) 5 12-2618 by mouth Jason es MG tablet 15:56: 00:00 once. Medica l 34 :00 Center enoxaparin 2020- No Q.5D Inject [facility] (LOVENOX) 12-2618 subcutaneo Jason es 80 mg/0.8 15:56: 00:00 usly 2 Medic al mL Syrg 34 :00 (two) Center times daily . ergocalcife 2020- No [id number] Q7D Take [facility] rol 12-2618 50,000 [facility] (VITAMIN 15:49: 00:00 Units by Medi ste[facility] D2) 1,250 13 :00 mouth once Cent er mcg (50,000 a week . unit) capsule ondansetron 2020- No 4mg Take [address] [facility] (ZOFRAN-ODT 12-2618 by mouth Jason es ) 4 MG 15:49: 00:00 every 8 Medical disintegrat 13 :00 (eight) Cente r ing tablet hours as needed for Nausea. ferrous 2020- No 325mg Q.5D Take [address] [facility] sulfate 325 18 -18 mg by [facility] (65 FE) MG 15:49: 00:00 mouth 2 Med ical tablet 13 :00 (two) Center times daily. warfarin 2020- No 3mg QD Take [address] [facility] (COUMADIN) 12-26-18 by mouth Luke s 3 MG tablet 15:49: 00:00 daily 3MG Medical 13 :00 on Wednesday, Center Wednesday, and Wednesday. . ondansetron 2020- No 4mg Take [address] [facility] (ZOFRAN) 4 3-18 03-18 by mouth 2 Elena kes MG tablet 15:49: 00:00 (two) Medica l 13 :00 times Center daily as needed for Nausea. ergocalcife 2020-0 2020- No [id number] Q7D Take [facility] 3-18 03-18 50,000 [facility] (VITAMIN 15:49: 00:00 Units by [facility]i ste[facility] D2) 1,250 13 :00 mouth once Cent er mcg (50,000 a week . unit) capsule ondansetron 2020-2020- No 4mg Take [address] [facility] (ZOFRAN-ODT 3-18 03-18 by mouth Jason es ) 4 MG 15:49: 00:00 every 8 Medical disintegrat 13 :00 (eight) Cente r ing tablet hours as needed for Nausea. ferrous 2020-2020- No 325mg Q.5D Take [address] [facility] sulfate 325 3-18 03-18 mg by [facility] (65 FE) MG 15:49: 00:00 mouth 2 Med ical tablet 13 :00 (two) Center times daily. warfarin 2020-2020- No 3mg QD Take [address] [facility] (COUMADIN) 3-18 03-18 by mouth Luke s 3 MG tablet 15:49: 00:00 daily 3MG Medical 13 :00 on Wednesday, Center Wednesday, and Wednesday. . ondansetron 2020-0 2020- No 4mg Take [address] [facility] (ZOFRAN) 4 3-18 03-18 by mouth 2 Elena kes MG tablet 15:49: 00:00 (two) Medica l 13 :00 times Center daily as needed for Nausea. ergocalcife 2020-0 2020- No [id number] Q7D Take [facility] 3-18 03-18 50,000 [facility] (VITAMIN 15:49: 00:00 Units by [facility]i steph[facility] D2) 1,250 13 :00 mouth once Cent er mcg (50,000 a week . unit) capsule ondansetron 2020-0 2020- No 4mg Take [address] [facility] (ZOFRAN-ODT 3-18 03-18 by mouth Jason es ) 4 MG 15:49: 00:00 every 8 Medical disintegrat 13 :00 (eight) Cente r ing tablet hours as needed for Nausea. ferrous 2020-2020- No 325mg Q.5D Take [address] [facility] sulfate 325 3-18 03-18 mg by [facility] (65 FE) MG 15:49: 00:00 mouth 2 Med ical tablet 13 :00 (two) Center times daily. warfarin 2020-2020- No 3mg QD Take [address] [facility] (COUMADIN) 3-18 03-18 by mouth Luke s 3 MG tablet 15:49: 00:00 daily 3MG Medical 13 :00 on Wednesday, Wednesday, and Wednesday. . ondansetron 2020-2020- No 4mg Take [address] [facility] (ZOFRAN) 4 3-18 03-18 by mouth 2 Elena kes MG tablet 15:49: 00:00 (two) Medica l 13 :00 times Center daily as needed for Nausea. ergocalcife 2020- No [id number] Q7D Take [facility] 3-18 03-18 50,000 [facility] (VITAMIN 15:49: 00:00 Units by [facility]i ste[facility] D2) 1,250 13 :00 mouth once Cent er mcg (50,000 a week . unit) capsule ondansetron 2020- No 4mg Take [address] [facility] (ZOFRAN-ODT 3-18 03-18 by mouth Jason es ) 4 MG 15:49: 00:00 every 8 Medical disintegrat 13 :00 (eight) Cente r ing tablet hours as needed for Nausea. ferrous 2020-2020- No 325mg Q.5D Take [address] [facility] sulfate 325 3-18 03-18 mg by [facility] (65 FE) MG 15:49: 00:00 mouth 2 Med ical tablet 13 :00 (two) Center times daily. warfarin 2020-2020- No 3mg QD Take [address] [facility] (COUMADIN) 3-18 03-18 by mouth Luke s 3 MG tablet 15:49: 00:00 daily 3MG Medical 13 :00 on Wednesday, Center Wednesday, and Wednesday. . ondansetron 2020-2020- No 4mg Take [address] [facility] (ZOFRAN) 4 3-18 03-18 by mouth 2 Elena kes MG tablet 15:49: 00:00 (two) Medica l 13 :00 times Center daily as needed for Nausea. spironolact 2021- No Cirrhosis 50mg QD Take [address] [facility] one 3-18 -18 of liver tablet (50 [facility] (ALDACTONE) 00:00: 23:59 with mg total) Medical 50 MG 00 :00 ascites, by mouth Center tablet unspecified daily. hepatic cirrhosis type (HCC) ursodioL 2021- No Cirrhosis 500mg Q.5D Take [address] [facility] (ACTIGALL) 3-18 -18 of liver tablet Elena kes 500 MG 00:00: 23:59 with (500 mg Medical tablet 00 :00 ascites, total) by Cent er unspecified mouth 2 hepatic (two) cirrhosis times type (HCC) daily. spironolact 2021- No Cirrhosis 50mg QD Take [address] [facility] one 3-18 -18 of liver tablet (50 [facility] (ALDACTONE) 00:00: 23:59 with mg total) Medical 50 MG 00 :00 ascites, by mouth Center tablet unspecified daily. hepatic cirrhosis type (HCC) ursodioL 2021- No Cirrhosis 500mg Q.5D Take [address] [facility] (ACTIGALL) 3-18 -18 of liver tablet Elena kes 500 MG 00:00: 23:59 with (500 mg Medical tablet 00 :00 ascites, total) by Cent er unspecified mouth 2 hepatic (two) cirrhosis times type (HCC) daily. spironolact 2021- No Cirrhosis 50mg QD Take [address] [facility] one 3-18 -18 of liver tablet (50 [facility] (ALDACTONE) 00:00: 23:59 with mg total) Medical 50 MG 00 :00 ascites, by mouth Center tablet unspecified daily. hepatic cirrhosis type (HCC) ursodioL 2021- No Cirrhosis 500mg Q.5D Take [address] [facility] (ACTIGALL) 3-18 -18 of liver tablet Elena kes 500 MG 00:00: 23:59 with (500 mg Medical tablet 00 :00 ascites, total) by Cent er unspecified mouth 2 hepatic (two) cirrhosis times type (HCC) daily. spironolact 2021- No Cirrhosis 50mg QD Take [address] [facility] one 3-18 -18 of liver tablet (50 [facility] (ALDACTONE) 00:00: 23:59 with mg total) Medical 50 MG 00 :00 ascites, by mouth Center tablet unspecified daily. hepatic cirrhosis type (HCC) ursodioL 2021- No Cirrhosis 500mg Q.5D Take [address] [facility] (ACTIGALL) 3-18 03-18 of liver tablet Elena kes 500 MG 00:00: 23:59 with (500 mg Medical tablet 00 :00 ascites, total) by Cent er unspecified mouth 2 hepatic (two) cirrhosis times type (HCC) daily. furosemide 2020- No Cirrhosis 20mg Q.5D Take [address] [facility] (LASIX) 20 3-18 04-13 of liver tablet (20 [facility] tablet 00:00: 00:00 with mg total) Me dical 00 :00 ascites, by mouth 2 Cente r unspecified (two) hepatic times cirrhosis daily. type (HCC) furosemide 2020- No Cirrhosis 20mg Q.5D Take [address] [facility] (LASIX) 20 3-18 04-13 of liver tablet (20 [facility] tablet 00:00: 00:00 with mg total) Me dical 00 :00 ascites, by mouth 2 Cente r unspecified (two) hepatic times cirrhosis daily. type (HCC) furosemide 2020- No Cirrhosis 20mg Q.5D Take [address] [facility] (LASIX) 20 3-18 04-13 of liver tablet (20 [facility] tablet 00:00: 00:00 with mg total) Me dical 00 :00 ascites, by mouth 2 Cente r unspecified (two) hepatic times cirrhosis daily. type (HCC) furosemide 2020- No Cirrhosis 20mg Q.5D Take [address] [facility] (LASIX) 20 3-18 04-13 of liver tablet (20 [facility] tablet 00:00: 00:00 with mg total) Me dical 00 :00 ascites, by mouth 2 Cente r unspecified (two) hepatic times cirrhosis daily. type (HCC) Eliquis 2.5 Yes 2.5mg Q.5D Take 2.[address] MG tablet 3-12 mg by [facility] 00:00: mouth 2 Medical 00 (two) Center times daily. Eliquis 2.5 Yes 2.5mg Q.5D Take 2.[address] MG tablet 3-12 mg by [facility] 00:00: mouth 2 Medical 00 (two) Center times daily. Eliquis 2.5 Yes 2.5mg Q.5D Take 2.[address] MG tablet 3-12 mg by [facility] 00:00: mouth 2 Medical 00 (two) Center times daily. Eliquis 2.5 Yes 2.5mg Q.5D Take 2.[address] MG tablet 3-12 mg by [facility] 00:00: mouth 2 Medical 00 (two) Center times daily. Apixaban Yes Take by [facility] (ELIQUIS) 3-11 mouth. College 2.5 MG TABS 20:35: of 40 Medicin e nystatin Yes Apply [facility] (MYCOSTATIN 3-11 topically [facility] ) ointment 20:35: two times of 40 daily. Medicin e omeprazole Yes [id number] TAKE 1 [facility] (PRILOSEC) 3-08 CAPSULE BY [facility] 40 MG 00:00: MOUTH of capsule 00 EVERY DAY Medicin e spironolact 2020- No Cirrhosis 50mg QD Take [address] [facility] one 3- 03-18 of liver tablet (50 [facility] (ALDACTONE) 00:00: 00:00 with mg total) Medical 50 MG 00 :00 ascites, by mouth Center tablet unspecified daily. hepatic cirrhosis type (HCC) spironolact 2020- No Cirrhosis 50mg QD Take [address] [facility] one 3- 03-18 of liver tablet (50 [facility] (ALDACTONE) 00:00: 00:00 with mg total) Medical 50 MG 00 :00 ascites, by mouth Center tablet unspecified daily. hepatic cirrhosis type (HCC) spironolact 2020- No Cirrhosis 50mg QD Take [address] [facility] one 3- 03-18 of liver tablet (50 [facility] (ALDACTONE) 00:00: 00:00 with mg total) Medical 50 MG 00 :00 ascites, by mouth Center tablet unspecified daily. hepatic cirrhosis type (HCC) spironolact 2020- No Cirrhosis 50mg QD Take [address] [facility] one 3- 03-18 of liver tablet (50 [facility] (ALDACTONE) 00:00: 00:00 with mg total) Medical 50 MG 00 :00 ascites, by mouth Center tablet unspecified daily. hepatic cirrhosis type (HCC) spironolact 2020-0 Yes 50mg Take 1 [facility] one 3-04 Tablet by [facility] (ALDACTONE) 00:00: mouth of 50 MG 00 daily. Medicin tablet e promethazin 2020-0 Yes [id number] TAKE 1 [facility] 3-03 TABLET BY [facility] (PHENERGAN) 00:00: MOUTH of 12.5 MG 00 EVERY 8 Medicin tablet HOURS e NEEDED FOR NAUSEA promethazin 2020-0 Yes [id number] TAKE 1 [facility] 3-03 TABLET BY [facility] (PHENERGAN) 00:00: MOUTH of 12.5 MG 00 EVERY 8 Medicin tablet HOURS e NEEDED FOR NAUSEA rifAXIMin 0 Yes 550mg Take 550 [facility] 550 MG TABS 2-26 mg by [facility] 00:00: mouth 3 of 00 times Medicin daily. e rifAXIMin 0 Yes 550mg Take 550 [facility] 550 MG TABS 2-26 mg by [facility] 00:00: mouth 3 of 00 times Medicin daily. e Insulin 0 Yes [id number] Inject 40 [facility] Lispro, 1 2-19 units into Danny ege Unit Dial, 00:00: the skin of (HUMALOG 00 three Medicin KWIKPEN) times e 100 UNIT/ML daily with SOPN meals. Insulin 0 Yes [id number] Inject 40 [facility] Lispro, 1 2-19 units into [facility] Unit Dial, 00:00: the skin of (HUMALOG 00 three Medicin KWIKPEN) times e 100 UNIT/ML daily with SOPN meals. Insulin 0 2021- No [id number] Inject 40 [facility] Lispro, 1 2-19 06-20 units into [facility] Unit Dial, 00:00: 00:00 the skin of (HUMALOG 00 :00 three Medicin KWIKPEN) times e 100 UNIT/ML daily with SOPN meals. escitalopra 2020-0 Yes [id number] 20mg Take 1 [facility] (LEXAPRO) 2-02 Tablet by [facility] 20 MG 00:00: mouth of tablet 00 daily. Medicin e escitalopra 2020-0 Yes [id number] 20mg Take 1 [facility] (LEXAPRO) 2-02 Tablet by [facility] 20 MG 00:00: mouth of tablet 00 daily. Medicin e escitalopra 2020-0 Yes [id number] 20mg Take 1 [facility] (LEXAPRO) 2-02 Tablet by [facility] 20 MG 00:00: mouth of tablet 00 daily. Medicin e escitalopra 2020-0 Yes [id number] 20mg Take 1 [facility] (LEXAPRO) 2-02 Tablet by [facility] 20 MG 00:00: mouth of tablet 00 daily. Medicin e escitalopra 2020-0 Yes [id number] 20mg Take 1 [facility] (LEXAPRO) 2-02 Tablet by [facility] 20 MG 00:00: mouth of tablet 00 daily. Medicin e escitalopra Yes [id number] 20mg Take 1 [facility] (LEXAPRO) 2-02 Tablet by [facility] 20 MG 00:00: mouth of tablet 00 daily. Medicin e atorvastati Yes 40mg Take 1 [facility] (LIPITOR) 1-21 Tablet by [facility] 40 MG 00:00: mouth of tablet 00 daily. Medicin e carvedilol Yes [id number] 6.25mg Take 1 [facility] (COREG) 1- 9105 Tablet by [facility] 6.25 MG 00:00: mouth 2 of tablet 00 times Medicin daily e (with meals). levothyroxi 2020-0 Yes [id number] 125ug Take 1 [facility] ne - 9105 Tablet by [facility] (SYNTHROID) 00:00: mouth of 125 MCG 00 daily. Medicin tablet e ferrous Yes ferrous [facility] sulfate 325 - sulfate [facility] (65 Fe) MG 00:00: 325 mg (65 o f tablet 00 mg iron) Medicin tablet e atorvastati Yes 40mg Take 1 [facility] (LIPITOR) 1-21 Tablet by [facility] 40 MG 00:00: mouth of tablet 00 daily. Medicin e carvedilol Yes [id number] 6.25mg Take 1 [facility] (COREG) 1-21 9105 Tablet by [facility] 6.25 MG 00:00: mouth 2 of tablet 00 times Medicin daily e (with meals). levothyroxi 2020-0 Yes [id number] 125ug Take 1 [facility] 1-21 9105 Tablet by [facility] (SYNTHROID) 00:00: mouth of 125 MCG 00 daily. Medicin tablet e atorvastati 2020-0 Yes 40mg Take 1 [facility] (LIPITOR) 1-21 Tablet by [facility] 40 MG 00:00: mouth of tablet 00 daily. Medicin e carvedilol 2020-0 Yes [id number] 6.25mg Take 1 [facility] (COREG) 1-21 9105 Tablet by [facility] 6.25 MG 00:00: mouth 2 of tablet 00 times Medicin daily e (with meals). levothyroxi 2020-0 Yes [id number] 125ug Take 1 [facility] 1-21 9105 Tablet by [facility] (SYNTHROID) 00:00: mouth of 125 MCG 00 daily. Medicin tablet e atorvastati 0 Yes 40mg Take 1 [facility] (LIPITOR) 1-21 Tablet by [facility] 40 MG 00:00: mouth of tablet 00 daily. Medicin e carvedilol 2020-0 Yes [id number] 6.25mg Take 1 [facility] (COREG) 1-21 9105 Tablet by [facility] 6.25 MG 00:00: mouth 2 of tablet 00 times Medicin daily e (with meals). levothyroxi 2020-0 Yes [id number] 125ug Take 1 [facility] 1-21 9105 Tablet by [facility] (SYNTHROID) 00:00: mouth of 125 MCG 00 daily. Medicin tablet e Continuous 2020-0 Yes [id number] 1{each} 1 Each [facility] Blood Gluc 1-08 every 90 [facility] Transmit 00:00: days. Dx of (DEXCOM G6 00 Code: E Medici n TRANSMITTER 11.65 e ) MISC Continuous 2020-0 Yes [id number] 1{each} 1 Each [facility] Blood Gluc 1-08 every 90 [facility] Transmit 00:00: days. Dx of (DEXCOM G6 00 Code: E Medici n TRANSMITTER 11.65 e ) MISC Continuous 2020-0 Yes [id number] 1{each} 1 Each [facility] Blood Gluc 1-08 every 90 [facility] Transmit 00:00: days. Dx of (DEXCOM G6 00 Code: E Medici n TRANSMITTER 11.65 e ) MISC Continuous Yes [id number] 1{each} 1 Each [facility] Blood Gluc 1-08 every 90 [facility] Transmit 00:00: days. Dx of (DEXCOM G6 00 Code: E Medici n TRANSMITTER 11.65 e ) MISC Continuous Yes [id number] 1{each} 1 Each [facility] Blood Gluc 1-08 every 90 [facility] Transmit 00:00: days. Dx of (DEXCOM G6 00 Code: E Medici n TRANSMITTER 11.65 e ) MISC Continuous Yes [id number] 1{each} 1 Each [facility] Blood Gluc 1-08 every 90 [facility] Transmit 00:00: days. Dx of (DEXCOM G6 00 Code: E Medici n TRANSMITTER 11.65 e ) MISC Continuous Yes [id number] 1{each} 1 Each [facility] Blood Gluc 1-08 every 90 [facility] Transmit 00:00: days. Dx of (DEXCOM G6 00 Code: E Medici n TRANSMITTER 11.65 e ) MISC Continuous Yes [id number] 1{each} 1 Each [facility] Blood Gluc 1-08 every 90 [facility] Transmit 00:00: days. Dx of (DEXCOM G6 00 Code: E Medici n TRANSMITTER 11.65 e ) MISC Continuous Yes [id number] 1{each} 1 Each [facility] Blood Gluc 1-08 every 90 [facility] Transmit 00:00: days. Dx of (DEXCOM G6 00 Code: E Medici n TRANSMITTER 11.65 e ) MISC Continuous Yes [id number] 1{each} 1 Each [facility] Blood Gluc 1-08 every 90 [facility] Transmit 00:00: days. Dx of (DEXCOM G6 00 Code: E Medici n TRANSMITTER 11.65 e ) MISC Continuous Yes [id number] 1{each} 1 Each [facility] Blood Gluc 1-08 every 90 [facility] Transmit 00:00: days. Dx of (DEXCOM G6 00 Code: E Medici n TRANSMITTER 11.65 e ) MISC Continuous Yes [id number] 1{each} 1 Each [facility] Blood Gluc 1-08 every 90 [facility] Transmit 00:00: days. Dx of (DEXCOM G6 00 Code: E Medici n TRANSMITTER 11.65 e ) MISC carvedilol 2019-10 Yes [id number] 6.25mg Take 6.25 [facility] (COREG) 2-22 9105 mg by [facility] 6.25 MG 15:25: mouth 2 of tablet 28 times Medicin daily e (with meals). atorvastati 2019-10 Yes 40mg Take 40 mg [facility] (LIPITOR) 2-22 by mouth [facility] 40 MG 15:25: daily. of tablet 28 Medicin e ferrous 2019-10 Yes ferrous [facility] sulfate 325 2-22 sulfate [facility] (65 Fe) MG 15:25: 325 mg (65 o f tablet 28 mg iron) Medicin tablet e spironolact 2019-10 Yes 50mg Take 50 mg [facility] one 2-22 by mouth [facility] (ALDACTONE) 15:25: daily. of 50 MG 28 Medicin tablet e Apixaban 2019-10 Yes Take by [facility] (ELIQUIS) 2-22 mouth. College 2.5 MG TABS 15:25: of 28 Medicin e nystatin 2019-10 Yes Apply [facility] (MYCOSTATIN 2-22 topically [facility] ) ointment 15:25: two times of 28 daily. Medicin e carvedilol 2019-10 Yes [id number] 6.25mg Take 6.25 [facility] (COREG) 2-22 9105 mg by [facility] 6.25 MG 13:57: mouth 2 of tablet 15 times Medicin daily e (with meals). atorvastati 2019-10 Yes 40mg Take 40 mg [facility] (LIPITOR) 2-22 by mouth [facility] 40 MG 13:57: daily. of tablet 15 Medicin e ferrous 2019-10 Yes ferrous [facility] sulfate 325 2-22 sulfate [facility] (65 Fe) MG 13:57: 325 mg (65 o f tablet 15 mg iron) Medicin tablet e spironolact 2019-10 Yes 50mg Take 50 mg [facility] one 2-22 by mouth [facility] (ALDACTONE) 13:57: daily. of 50 MG 15 Medicin tablet e Apixaban 2019-10 Yes Take by [facility] (ELIQUIS) 2-22 mouth. College 2.5 MG TABS 13:57: of 15 Medicin e nystatin 2019-10 Yes Apply [facility] (MYCOSTATIN 2-22 topically [facility] ) ointment 13:57: two times of 15 daily. Medicin e omeprazole 2019-10 Yes [id number] TAKE 1 [facility] (PRILOSEC) 2-22 CAPSULE BY [facility] 40 MG 00:00: MOUTH of capsule 00 EVERY DAY Medicin e trazodone 2019-10 Yes [facility] (DESYREL) 2-21 [facility] 50 MG 00:00: of tablet 00 Medicin e trazodone 2019-10 Yes [facility] (DESYREL) 2-21 [facility] 50 MG 00:00: of tablet 00 Medicin e XIFAXAN 550 2019-10 Yes TAKE 1 [facility] MG TABS 2-18 TABLET BY [facility]ey 00:00: MOUTH of 00 THREE Medicin TIMES A e DAY XIFAXAN 550 2019-10 Yes TAKE 1 [facility] MG TABS 2-18 TABLET BY [facility]ey 00:00: MOUTH of 00 THREE Medicin TIMES A e DAY spironolact 2019-10 Yes 50mg Take 50 mg [facility] one 2-17 by mouth [facility] (ALDACTONE) 19:04: daily. of 50 MG 58 Medicin tablet e Apixaban 2019-10 Yes Take by Jennifer manriquez (ELIQUIS) 2-17 mouth. [facility]ey 2.5 MG TABS 19:04: of 58 Medicin e nystatin 2019-10 Yes Apply [facility] (MYCOSTATIN 2-17 topically [facility] ) ointment 19:04: two times of 58 daily. Medicin e carvedilol 2019-10 Yes [id number] 6.25mg Take 6.25 [facility] (COREG) 2-17 9105 mg by [facility] 6.25 MG 19:03: mouth 2 of tablet 40 times Medicin daily e (with meals). atorvastati 2019-10 Yes 40mg Take 40 mg [facility] (LIPITOR) 2-17 by mouth [facility] 40 MG 19:03: daily. of tablet 40 Medicin e ferrous 2019-10 Yes ferrous [facility] sulfate 325 2-17 sulfate [facility] (65 Fe) MG 19:03: 325 mg (65 o f tablet 40 mg iron) Medicin tablet e triamcinolo 2019-10 2020- No 1 Jennifer manriquez ne 2-17 12-17 applicatio [facility] (KENALOG) 19:03: 00:00 n to of 0.1 % 37 :00 affected Medicin lotion area e polyethylen 2019-10 2020- No EVERY DAY Yon e glycol 2-17 -17 College (GLYCOLAX) 19:03: 00:00 DIRECTED of 17 GM/SCOOP 10 :00 Medicin powder e ibuprofen 2019-10 2020- No 1 tablet [place] cruzito (ADVIL) 200 2-17 09-26 as needed [employer] mg tablet 19:02: 00:00 of 42 :00 Medicin e dicyclomine 2019-10 Yes [id number] TAKE 1 Yon (BENTYL) 10 2-17 CAPSULE BY [employer] llege MG capsule 00:00: MOUTH of 00 TWICE A Medicin DAY e dicyclomine 2019-10 Yes [id number] TAKE 1 Yon (BENTYL) 10 2-17 CAPSULE BY [employer] [facility] MG capsule 00:00: MOUTH of 00 TWICE A Medicin DAY e dicyclomine 2019-10 Yes [id number] TAKE 1 Yon (BENTYL) 10 2-17 CAPSULE BY [employer] [facility] MG capsule 00:00: MOUTH of 00 TWICE A Medicin DAY e dicyclomine 2019-10 Yes [id number] TAKE 1 [facility] (BENTYL) 10 2-17 CAPSULE BY [employer] MG capsule 00:00: MOUTH of 00 TWICE A Medicin DAY e dicyclomine 2019-10 Yes [id number] TAKE 1 Yon (BENTYL) 10 2-17 CAPSULE BY [employer] [facility] MG capsule 00:00: MOUTH of 00 TWICE A Medicin DAY e dicyclomine 2019-10 Yes [id number] TAKE 1 [facility] (BENTYL) 10 2-17 CAPSULE BY [employer] MG capsule 00:00: MOUTH of 00 TWICE A Medicin DAY e dicyclomine 2019-10 Yes [id number] TAKE 1 [facility] (BENTYL) 10 2-17 CAPSULE BY [facility] MG capsule 00:00: MOUTH of 00 TWICE A Medicin DAY e dicyclomine 2019-10 Yes [id number] TAKE 1 [facility] (BENTYL) 10 2-17 CAPSULE BY [facility] MG capsule 00:00: MOUTH of 00 TWICE A Medicin DAY e dicyclomine 2019-10 Yes [id number] TAKE 1 [facility] (BENTYL) 10 2-17 CAPSULE BY [facility] MG capsule 00:00: MOUTH of 00 TWICE A Medicin DAY e dicyclomine 2019-10 Yes [id number] TAKE 1 [facility] (BENTYL) 10 2-17 CAPSULE BY [facility] MG capsule 00:00: MOUTH of 00 TWICE A Medicin DAY e dicyclomine 2019-10 Yes [id number] TAKE 1 [facility] (BENTYL) 10 2-17 CAPSULE BY [facility] MG capsule 00:00: MOUTH of 00 TWICE A Medicin DAY e dicyclomine 2019-10 Yes [id number] TAKE 1 [facility] (BENTYL) 10 2-17 CAPSULE BY [facility] MG capsule 00:00: MOUTH of 00 TWICE A Medicin DAY e dicyclomine 2019-10 Yes [id number] TAKE 1 [facility] (BENTYL) 10 2-17 CAPSULE BY [facility] MG capsule 00:00: MOUTH of 00 TWICE A Medicin DAY e dicyclomine 2019-10 Yes [id number] TAKE 1 [facility] (BENTYL) 10 2-17 CAPSULE BY [facility] MG capsule 00:00: MOUTH of 00 TWICE A Medicin DAY e dicyclomine 2019-10 Yes [id number] TAKE 1 [facility] (BENTYL) 10 2-17 CAPSULE BY [facility] MG capsule 00:00: MOUTH of 00 TWICE A Medicin DAY e carvedilol 2019-10 Yes [id number] 6.25mg Take 6.25 [facility] (COREG) 2-14 9105 mg by [facility] 6.25 MG 19:37: mouth 2 of tablet 23 times Medicin daily e (with meals). atorvastati 2019-10 Yes 40mg Take 40 mg [facility] (LIPITOR) 2-14 by mouth [facility] 40 MG 19:37: daily. of tablet 23 Medicin e ferrous 2019-10 Yes ferrous [facility] sulfate 325 2-14 sulfate [facility] (65 Fe) MG 19:37: 325 mg (65 o f tablet 23 mg iron) Medicin tablet e ibuprofen 2019-10 Yes 1 tablet [facility] (ADVIL) 200 2-14 as needed [facility] mg tablet 19:37: of 23 Medicin e polyethylen 2019-10 Yes EVERY DAY [facility] e glycol 2-14 [facility] (GLYCOLAX) 19:37: DIRECTED of 17 GM/SCOOP 23 Medicin powder e triamcinolo 2019-10 Yes 1 [facility] ne 2-14 applicatio [facility] (KENALOG) 19:37: n to of 0.1 % 23 affected Medicin lotion area e Continuous 2019- Yes [id number] 1{each} 1 Each [facility] Blood Gluc 2-06 every 10 [facility] Sensor 00:00: days. of (DEXCOM G6 00 Medicin SENSOR) e MISC Continuous 2019- Yes [id number] 1{each} 1 Each [facility] Blood Gluc 2-06 every 10 [facility] Sensor 00:00: days. of (DEXCOM G6 00 Medicin SENSOR) e MISC Continuous 2019- Yes [id number] 1{each} 1 Each [facility] Blood Gluc 2-06 every 10 [facility] Sensor 00:00: days. of (DEXCOM G6 00 Medicin SENSOR) e MISC Continuous 2019- Yes [id number] 1{each} 1 Each [facility] Blood Gluc 2-06 every 10 [facility] Sensor 00:00: days. of (DEXCOM G6 00 Medicin SENSOR) e MISC Continuous 2019- Yes [id number] 1{each} 1 Each [facility] Blood Gluc 2-06 every 10 [facility] Sensor 00:00: days. of (DEXCOM G6 00 Medicin SENSOR) e MISC Continuous 2019-10 Yes [id number] 1{each} 1 Each [facility] Blood Gluc 2-06 every 10 [facility] Sensor 00:00: days. of (DEXCOM G6 00 Medicin SENSOR) e MISC Continuous 2019-10 Yes [id number] 1{each} 1 Each [facility] Blood Gluc 2-06 every 10 [facility] Sensor 00:00: days. of (DEXCOM G6 00 Medicin SENSOR) e MISC Continuous 2019- Yes [id number] 1{each} 1 Each [facility] Blood Gluc 2-06 every 10 [facility] Sensor 00:00: days. of (DEXCOM G6 00 Medicin SENSOR) e MISC Continuous 2019- Yes [id number] 1{each} 1 Each [facility] Blood Gluc 2-06 every 10 [facility] Sensor 00:00: days. of (DEXCOM G6 00 Medicin SENSOR) e MISC Continuous 2019- Yes [id number] 1{each} 1 Each [facility] Blood Gluc 2-06 every 10 [facility] Sensor 00:00: days. of (DEXCOM G6 00 Medicin SENSOR) e MISC Continuous 2019- Yes [id number] 1{each} 1 Each [facility] Blood Gluc 2-06 every 10 [facility] Sensor 00:00: days. of (DEXCOM G6 00 Medicin SENSOR) e MISC Continuous 2019-10 Yes [id number] 1{each} 1 Each [facility] Blood Gluc 2-06 every 10 [facility] Sensor 00:00: days. of (DEXCOM G6 00 Medicin SENSOR) e MISC Continuous 2019-10 Yes [id number] 1{each} 1 Each [facility] Blood Gluc 2-06 every 10 [facility] Sensor 00:00: days. of (DEXCOM G6 00 Medicin SENSOR) e MISC Continuous 2019-10 Yes [id number] 1{each} 1 Each [facility] Blood Gluc 2-06 every 10 [facility] Sensor 00:00: days. of (DEXCOM G6 00 Medicin SENSOR) e MISC Continuous 2019-10 Yes [id number] 1{each} 1 Each [facility] Blood Gluc 2-06 every 10 [facility] Sensor 00:00: days. of (DEXCOM G6 00 Medicin SENSOR) e MISC Continuous 2019-10 Yes [id number] 1{each} 1 Each [facility] Blood Gluc 2-06 every 10 [facility] Sensor 00:00: days. of (DEXCOM G6 00 Medicin SENSOR) e MISC Continuous 2019-10 Yes 1{each} 1 Each [facility] Blood Gluc 2-01 continuous [facility] Medical Researcher 00:00: . of (DEXCOM G6 00 Medicin OPHTHALMIC TECHNICIAN APPRENTICE) e MONICA Continuous 2019-10 Yes 1{each} 1 Each [facility] Blood Gluc 2-01 every 90 [facility] Transmit 00:00: days. of (DEXCOM G6 00 Medicin TRANSMITTER e ) MISC Continuous 2019-10 Yes 1{each} 1 Each [facility] Blood Gluc 2-01 continuous [facility] Medical Researcher 00:00: . of (DEXCOM G6 00 Medicin OPHTHALMIC TECHNICIAN APPRENTICE) e MONICA Continuous 2019-10 Yes 1{each} 1 Each [facility] Blood Gluc 2-01 every 90 [facility] Transmit 00:00: days. of (DEXCOM G6 00 Medicin TRANSMITTER e ) MISC Continuous 2019-10 Yes 1{each} 1 Each [facility] Blood Gluc 2-01 continuous [facility] Medical Researcher 00:00: . of (DEXCOM G6 00 Medicin OPHTHALMIC TECHNICIAN APPRENTICE) e MONICA Continuous 2019-10 Yes 1{each} 1 Each [facility] Blood Gluc 2-01 every 90 [facility] Transmit 00:00: days. of (DEXCOM G6 00 Medicin TRANSMITTER e ) MISC Continuous 2019-10 Yes 1{each} 1 Each [facility] Blood Gluc 2-01 continuous [facility] Medical Researcher 00:00: . of (DEXCOM G6 00 Medicin OPHTHALMIC TECHNICIAN APPRENTICE) e MONICA Continuous 2019-10 Yes 1{each} 1 Each [facility] Blood Gluc 2-01 every 90 [facility] Transmit 00:00: days. of (DEXCOM G6 00 Medicin TRANSMITTER e ) MISC Continuous 2019-10 Yes 1{each} 1 Each [facility] Blood Gluc 2-01 continuous [facility] Medical Researcher 00:00: . of (DEXCOM G6 00 Medicin OPHTHALMIC TECHNICIAN APPRENTICE) e MONICA Continuous 2019-10 Yes 1{each} 1 Each [facility] Blood Gluc 2-01 continuous [facility] Medical Researcher 00:00: . of (DEXCOM G6 00 Medicin OPHTHALMIC TECHNICIAN APPRENTICE) e MONICA Continuous 2019-10 Yes 1{each} 1 Each [facility] Blood Gluc 2-01 continuous [facility] Medical Researcher 00:00: . of (DEXCOM G6 00 Medicin OPHTHALMIC TECHNICIAN APPRENTICE) e MONICA Continuous 2019-10 Yes 1{each} 1 Each [facility] Blood Gluc 2-01 continuous [facility] Medical Researcher 00:00: . of (DEXCOM G6 00 Medicin OPHTHALMIC TECHNICIAN APPRENTICE) e MONICA Continuous 2019-10 Yes 1{each} 1 Each [facility] Blood Gluc 2-01 continuous [facility] Medical Researcher 00:00: . of (DEXCOM G6 00 Medicin OPHTHALMIC TECHNICIAN APPRENTICE) e MONICA Continuous 2019-10 Yes 1{each} 1 Each [facility] Blood Gluc 2-01 continuous [facility] Medical Researcher 00:00: . of (DEXCOM G6 00 Medicin OPHTHALMIC TECHNICIAN APPRENTICE) e MONICA Continuous 2019-10 Yes 1{each} 1 Each [facility] Blood Gluc 2-01 continuous [facility] Medical Researcher 00:00: . of (DEXCOM G6 00 Medicin OPHTHALMIC TECHNICIAN APPRENTICE) e MONICA Continuous 2019-10 Yes 1{each} 1 Each [facility] Blood Gluc 2-01 continuous [facility] Medical Researcher 00:00: . of (DEXCOM G6 00 Medicin OPHTHALMIC TECHNICIAN APPRENTICE) e MONICA Continuous 2019-10 Yes 1{each} 1 Each [facility] Blood Gluc 2-01 continuous [facility] Medical Researcher 00:00: . of (DEXCOM G6 00 Medicin OPHTHALMIC TECHNICIAN APPRENTICE) e MONICA Continuous 2019-10 Yes 1{each} 1 Each [facility] Blood Gluc 2-01 continuous [facility] Medical Researcher 00:00: . of (DEXCOM G6 00 Medicin OPHTHALMIC TECHNICIAN APPRENTICE) e MONICA Continuous 2019-10 Yes 1{each} 1 Each [facility] Blood Gluc 2-01 continuous [facility] Medical Researcher 00:00: . of (DEXCOM G6 00 Medicin OPHTHALMIC TECHNICIAN APPRENTICE) e MOINCA Continuous 2019-10 Yes 1{each} 1 Each [facility] Blood Gluc 2-01 continuous [facility] Medical Researcher 00:00: . of (DEXCOM G6 00 Medicin OPHTHALMIC TECHNICIAN APPRENTICE) e MONICA ondansetron 2019-10 2020- No ondansetro [facility] (ZOFRAN) 4 10-28 n HCl 4 mg [facility] MG tablet 20:49: 00:00 tablet of 52 :00 Medicin e Ascorbic 2019-10- No Take by [facility] Acid 10-28 mouth. [facility] (VITAMIN C 20:49: 00:00 of OR) 52 :00 Medicin e ascorbic 2019-10- No 500mg Take 500 [facility] cruzito acid 500 MG 10-28 mg by Colleg e tablet 20:49: 00:00 mouth. of 52 :00 Medicin e Ascorbic 2019-10 2020- No 1 capsule [facility] cruzito Acid 10-28 [facility] (VITAMIN C) 20:49: 00:00 of 500 MG CAPS 52 :00 Medicin e Emollient 2019-10- No Unknown [facility] (GOLD MARTINEZ 10-28 [facility] MEDICATED 20:49: 00:00 of BODY) 52 :00 Medicin 5-0.15 % e LOTN folic acid 2019-10 2020- No 1 tablet [facility] 800 MCG 10-28 [facility] TABS 20:49: 00:00 of 52 :00 Medicin e hyoscyamine 2019-10 2020- No 2 tablet [facility] (LEVSIN/SL) 10-28 as needed [facility] 0.125 MG SL 20:49: 00:00 of tablet 52 :00 Medicin e lisinopril 2019-10- No TAKE 1 [facility] (PRINIVIL, 10-28 TABLET BY [facility] ZESTRIL) 5 20:49: 00:00 MOUTH of MG tablet 52 :00 EVERY DAY Medic in e Methylcobal 2019-10- No Unknown [facility] maier 10-28 [facility] ([id number] 20:49: 00:00 of ) 1 MG CHEW 52 :00 Medicin e Pantoprazol 2020-1 2020- No 1 packet [facility] Sodium 10-28 [facility] (PROTONIX) 20:49: 00:00 of 40 MG PACK 52 :00 Medicin e Psyllium 2019-10 2020- No 1 packet [facility] (METAMUCIL) 10-28 with 8 [facility] WAFR 20:49: 00:00 ounces of of 52 :00 liquid as Medicin needed e ondansetron 2019-10 2020- No ondansetro [facility] (ZOFRAN) 4 10-28 n HCl 4 mg [facility] MG tablet 20:49: 00:00 tablet of 52 :00 Medicin e Ascorbic 2019-10- No Take by [facility] Acid 10-28 mouth. [facility] (VITAMIN C 20:49: 00:00 of OR) 52 :00 Medicin e ascorbic 2019-10- No 500mg Take 500 [facility] cruzito acid 500 MG 10-28 mg by [facility] e tablet 20:49: 00:00 mouth. of 52 :00 Medicin e Ascorbic 2019-10- No 1 capsule [facility] cruzito Acid 10-28 [facility] (VITAMIN C) 20:49: 00:00 of 500 MG CAPS 52 :00 Medicin e Emollient 2019-10- No Unknown [facility] (GOLD MARTINEZ 10-28 [facility] MEDICATED 20:49: 00:00 of BODY) 52 :00 Medicin 5-0.15 % e LOTN folic acid 2019-10- No 1 tablet [facility] 800 MCG 10-28 [facility] TABS 20:49: 00:00 of 52 :00 Medicin e hyoscyamine 2019-10- No 2 tablet [facility] (LEVSIN/SL) 10-28 as needed [facility] 0.125 MG SL 20:49: 00:00 of tablet 52 :00 Medicin e lisinopril 2019-10- No TAKE 1 [facility] (PRINIVIL, 10-28 TABLET BY [facility] ZESTRIL) 5 20:49: 00:00 MOUTH of MG tablet 52 :00 EVERY DAY Medic in e Methylcobal 2019-10- No Unknown [facility] maier 10-28 [facility] ([id number] 20:49: 00:00 of ) 1 MG CHEW 52 :00 Medicin e Pantoprazol 2019-10 2020- No 1 packet [facility] Sodium 10-28 [facility] (PROTONIX) 20:49: 00:00 of 40 MG PACK 52 :00 Medicin e Psyllium 2019-10 2020- No 1 packet [facility] (METAMUCIL) 10-28 with 8 [facility] WAFR 20:49: 00:00 ounces of of 52 :00 liquid as Medicin needed e warfarin 2019-10- No Unknown [facility] (COUMADIN) 10-28 [facility] 5 MG tablet 20:49: 00:00 of 05 :00 Medicin e warfarin 2019-10- No Unknown [facility] (COUMADIN) 10-28 [facility] 5 MG tablet 20:49: 00:00 of 05 :00 Medicin e carvedilol 2019-10 Yes [id number] 6.25mg Take 6.25 [facility] (COREG) 1-18 9105 mg by [facility] 6.25 MG 20:45: mouth 2 of tablet 11 times Medicin daily e (with meals). atorvastati 2019-10 Yes 40mg Take 40 mg [facility] (LIPITOR) 18 by mouth [facility] 40 MG 20:45: daily. of tablet 11 Medicin e ferrous 2019-10 Yes ferrous [facility] sulfate 325 18 sulfate [facility] (65 Fe) MG 20:45: 325 mg (65 o f tablet 11 mg iron) Medicin tablet e ibuprofen 2019-10 Yes 1 tablet [facility] (ADVIL) 200 10-28 as needed [facility] mg tablet 20:45: of 11 Medicin e polyethylen 2019-10 Yes EVERY DAY [facility] glycol 10-28 [facility] (GLYCOLAX) 20:45: DIRECTED of 17 GM/SCOOP 11 Medicin powder e triamcinolo 2019-10 Yes 1 [facility] ne 10-28 applicatio [facility] (KENALOG) 20:45: n to of 0.1 % 11 affected Medicin lotion area e carvedilol 2019-10 Yes [id number] 6.25mg Take 6.25 [facility] (COREG) 1-18 9105 mg by [facility] 6.25 MG 20:45: mouth 2 of tablet 11 times Medicin daily e (with meals). atorvastati 2019-10 Yes 40mg Take 40 mg [facility] (LIPITOR) 10-28 by mouth [facility] 40 MG 20:45: daily. of tablet 11 Medicin e ferrous 2019-10 Yes ferrous [facility] sulfate 325 10-28 sulfate [facility] (65 Fe) MG 20:45: 325 mg (65 o f tablet 11 mg iron) Medicin tablet e ibuprofen 2019-10 Yes 1 tablet [facility] (ADVIL) 200 10-28 as needed [facility] mg tablet 20:45: of 11 Medicin e polyethylen 2019-10 Yes EVERY DAY [facility] e glycol 10-28 [facility] (GLYCOLAX) 20:45: DIRECTED of 17 GM/SCOOP 11 Medicin powder e triamcinolo 2019-10 Yes 1 [facility] ne 10-28 applicatio [facility] (KENALOG) 20:45: n to of 0.1 % 11 affected Medicin lotion area e Glucagon 2019-10 Yes [id number] 3mg 3 mg by [facility]Smra garcia [facility] Nasal [facility] TWO PACK) 3 00:00: route as of MG/DOSE 00 needed for Medici n POWD Other (if e unresponsi ve and call 911 if not waking up). may repeat once more in 15min Glucagon 2019-10 Yes [id number] 3mg 3 mg by [facility] ([facility] 10-28 Nasal [facility] TWO PACK) 3 00:00: route as of MG/DOSE 00 needed for Medici n POWD Other (if e unresponsi ve and call 911 if not waking up). may repeat once more in 15min Glucagon 2019-10 Yes [id number] 3mg 3 mg by [facility] ([facility] 10[facility] Nasal [facility] TWO PACK) 3 00:00: route as of MG/DOSE 00 needed for Medici n POWD Other (if e unresponsi ve and call 911 if not waking up). may repeat once more in 15min Glucagon 2019-10 Yes [id number] 3mg 3 mg by [facility] ([facility] 10-28 Nasal [facility] TWO PACK) 3 00:00: route as of MG/DOSE 00 needed for Medici n POWD Other (if e unresponsi ve and call 911 if not waking up). may repeat once more in 15min Glucagon 2019-10 Yes [id number] 3mg 3 mg by [facility] (BAQSIMI 1-18 Nasal [facility] TWO PACK) 3 00:00: route as of MG/DOSE 00 needed for Medici n POWD Other (if e unresponsi ve and call 911 if not waking up). may repeat once more in 15min Glucagon 2019-10 Yes [id number] 3mg 3 mg by [facility] (BAQSIMI 1-18 Nasal [facility] TWO PACK) 3 00:00: route as of MG/DOSE 00 needed for Medici n POWD Other (if e unresponsi ve and call 911 if not waking up). may repeat once more in 15min Glucagon 2019-10 Yes [id number] 3mg 3 mg by [facility] (BAQSIMI 1-18 Nasal [facility] TWO PACK) 3 00:00: route as of MG/DOSE 00 needed for Medici n POWD Other (if e unresponsi ve and call 911 if not waking up). may repeat once more in 15min Glucagon 2019-10 Yes [id number] 3mg 3 mg by [facility] (BAQSIMI 1-18 Nasal [facility] TWO PACK) 3 00:00: route as of MG/DOSE 00 needed for Medici n POWD Other (if e unresponsi ve and call 911 if not waking up). may repeat once more in 15min Glucagon 2019-10 Yes [id number] 3mg 3 mg by [facility] (BAQSIMI 1-18 Nasal [facility] TWO PACK) 3 00:00: route as of MG/DOSE 00 needed for Medici n POWD Other (if e unresponsi ve and call 911 if not waking up). may repeat once more in 15min Glucagon 2019-10 Yes [id number] 3mg 3 mg by [facility] (BAQSIMI 1-18 Nasal [facility] TWO PACK) 3 00:00: route as of MG/DOSE 00 needed for Medici n POWD Other (if e unresponsi ve and call 911 if not waking up). may repeat once more in 15min Glucagon 2019-10 Yes [id number] 3mg 3 mg by [facility] (BAQSIMI 1-18 Nasal [facility] TWO PACK) 3 00:00: route as of MG/DOSE 00 needed for Medici n POWD Other (if e unresponsi ve and call 911 if not waking up). may repeat once more in 15min Glucagon 2019-10 Yes [id number] 3mg 3 mg by [facility] (BAQSIMI 1-18 Nasal [facility] TWO PACK) 3 00:00: route as of MG/DOSE 00 needed for Medici n POWD Other (if e unresponsi ve and call 911 if not waking up). may repeat once more in 15min Glucagon 2019-10 Yes [id number] 3mg 3 mg by [facility] (BAQSIMI 1-18 Nasal [facility] TWO PACK) 3 00:00: route as of MG/DOSE 00 needed for Medici n POWD Other (if e unresponsi ve and call 911 if not waking up). may repeat once more in 15min Glucagon 2019-10 Yes [id number] 3mg 3 mg by [facility] (BAQSIMI 1-18 Nasal [facility] TWO PACK) 3 00:00: route as of MG/DOSE 00 needed for Medici n POWD Other (if e unresponsi ve and call 911 if not waking up). may repeat once more in 15min Glucagon 2019-10 Yes [id number] 3mg 3 mg by [facility] (BAQSIMI 1-18 Nasal [facility] TWO PACK) 3 00:00: route as of MG/DOSE 00 needed for Medici n POWD Other (if e unresponsi ve and call 911 if not waking up). may repeat once more in 15min Glucagon 2019-10 Yes [id number] 3mg 3 mg by [facility] (BAQSIMI 1-18 Nasal [facility] TWO PACK) 3 00:00: route as of MG/DOSE 00 needed for Medici n POWD Other (if e unresponsi ve and call 911 if not waking up). may repeat once more in 15min Glucagon 2019-10 Yes [id number] 3mg 3 mg by [facility] (BAQSIMI 1-18 Nasal [facility] TWO PACK) 3 00:00: route as of MG/DOSE 00 needed for Medici n POWD Other (if e unresponsi ve and call 911 if not waking up). may repeat once more in 15min Glucagon 2019-10 Yes [id number] 3mg 3 mg by [facility] (BAQSIMI 1-18 Nasal [facility] TWO PACK) 3 00:00: route as of MG/DOSE 00 needed for Medici n POWD Other (if e unresponsi ve and call 911 if not waking up). may repeat once more in 15min furosemide 2019-10- No TAKE [address] [facility] (LASIX) 20 1-18 03-18 TABLET BY [facility] MG tablet 00:00: 00:00 MOUTH Medica l 00 :00 TWICE A Center DAY furosemide 2019-10- No TAKE [address] [facility] (LASIX) 20 1-18 03-18 TABLET BY [facility] MG tablet 00:00: 00:00 MOUTH Medica l 00 :00 TWICE A Center DAY furosemide 2019-10- No TAKE [address] [facility] (LASIX) 20 1-18 03-18 TABLET BY [facility] MG tablet 00:00: 00:00 MOUTH Medica l 00 :00 TWICE A Center DAY furosemide 2019-10- No TAKE [address] [facility] (LASIX) 20 1-18 03-18 TABLET BY [facility] MG tablet 00:00: 00:00 MOUTH Medica l 00 :00 TWICE A Center DAY Insulin 2019-10 Yes [id number] Inject up [facility] Aspart 1-17 to 40 [facility] (NOVOLOG 00:00: units with of FLEXPEN) 00 food 3 Medicin 100 UNIT/ML times e SOPN daily. Hold if NOT eating. Insulin 2019-10 Yes [id number] Inject up [facility] Aspart 1-17 to 40 [facility] (NOVOLOG 00:00: units with of FLEXPEN) 00 food 3 Medicin 100 UNIT/ML times e SOPN daily. Hold if NOT eating. Insulin 2019-10 Yes [id number] Inject up [facility] Aspart 1-17 to 40 [facility] (NOVOLOG 00:00: units with of FLEXPEN) 00 food 3 Medicin 100 UNIT/ML times e SOPN daily. Hold if NOT eating. Insulin 2019-10 Yes [id number] Inject up [facility] Aspart 1-17 to 40 [facility] (NOVOLOG 00:00: units with of FLEXPEN) 00 food 3 Medicin 100 UNIT/ML times e SOPN daily. Hold if NOT eating. Insulin 2019-10 Yes [id number] Inject up [facility] Aspart 1-17 to 40 [facility] (NOVOLOG 00:00: units with of FLEXPEN) 00 food 3 Medicin 100 UNIT/ML times e SOPN daily. Hold if NOT eating. Insulin 2019-10 Yes [id number] Inject up [facility] Aspart 1-17 to 40 [facility] (NOVOLOG 00:00: units with of FLEXPEN) 00 food 3 Medicin 100 UNIT/ML times e SOPN daily. Hold if NOT eating. dicyclomine 2019-10 Yes [id number] TAKE 1 [facility] (BENTYL) 10 1-16 CAPSULE BY [facility] MG capsule 00:00: MOUTH of 00 TWICE A Medicin DAY e famotidine 2019-10 Yes [id number] TAKE 1 [facility] (PEPCID) 40 1-16 TABLET BY [facility] MG tablet 00:00: MOUTH of 00 EVERY DAY Medicin e dicyclomine 2019-10 Yes [id number] TAKE 1 [facility] (BENTYL) 10 1-16 CAPSULE BY [facility] MG capsule 00:00: MOUTH of 00 TWICE A Medicin DAY e famotidine 2019-10 Yes [id number] TAKE 1 [facility] (PEPCID) 40 1-16 TABLET BY [facility] MG tablet 00:00: MOUTH of 00 EVERY DAY Medicin e dicyclomine 2019-10 Yes [id number] TAKE 1 [facility] (BENTYL) 10 1-16 CAPSULE BY [facility] MG capsule 00:00: MOUTH of 00 TWICE A Medicin DAY e famotidine 2019-10 Yes [id number] TAKE 1 [facility] (PEPCID) 40 1-16 TABLET BY [facility] MG tablet 00:00: MOUTH of 00 EVERY DAY Medicin e famotidine 2019-10 2020- No [id number] TAKE 1 [facility] (PEPCID) 40 1-16 12-17 TABLET BY [facility] MG tablet 00:00: 00:00 MOUTH of 00 :00 EVERY DAY Medicin e nystatin 2019-10 2020- No APPLY TO [facility] (MYCOSTATIN 10-14 11-18 AFFECTED [facility] ) ointment 00:00: 00:00 AREA of 00 :00 TOPICALLY Medicin TWICE A e DAY NEEDED 15 rifAXIMin 2019-10 Yes Hepatic 550mg Q.5D Take [address] [facility] (Xifaxan) 1-03 encephalopa tablet L ukes 550 mg Tab 00:00: thy (HCC) (550 mg Medical total) by Center mouth 2 (two) times daily. rifAXIMin 2019-10 Yes Hepatic 550mg Q.5D Take [address] [facility] [address] [facility] (Xifaxan) 1-03 encephalopa tablet L [facility]kes 550 mg Tab 00:00: thy (HCC) (550 mg Medical total) by Center mouth 2 (two) times daily. rifAXIMin 2019-10 Yes Hepatic 550mg Q.5D Take [address] [facility] [address] [facility] (Xifaxan) 1-03 encephalopa tablet L [facility] 550 mg Tab 00:00: thy (HCC) (550 mg Medical 00 total) by Center mouth 2 (two) times daily. rifAXIMin 2019-10 Yes Hepatic 550mg Q.5D Take [address] [facility] [address] [facility] (Xifaxan) 1-03 encephalopa tablet [facility] 550 mg Tab 00:00: thy (HCC) (550 mg Medical 00 total) by Center mouth 2 (two) times daily. escitalopra 2019-10 Yes [id number] 20mg Take 1 Tab [facility] (LEXAPRO) 1-03 by mouth [facility] 20 MG 00:00: daily. of tablet 00 Medicin e escitalopra 2019-10 Yes [id number] 20mg Take 1 Tab [facility] (LEXAPRO) 1-03 by mouth [facility] 20 MG 00:00: daily. of tablet 00 Medicin e escitalopra 2019-10 Yes [id number] 20mg Take 1 Tab [facility] (LEXAPRO) 1-03 by mouth [facility] 20 MG 00:00: daily. of tablet 00 Medicin e escitalopra 2019-10 Yes [id number] 20mg Take 1 Tab [facility] (LEXAPRO) 1-03 by mouth [facility] 20 MG 00:00: daily. of tablet 00 Medicin e escitalopra 2019-10 Yes [id number] 20mg Take 1 Tab [facility] (LEXAPRO) 1-03 by mouth [facility] 20 MG 00:00: daily. of tablet 00 Medicin e escitalopra 2019-10 Yes [id number] 20mg Take 1 Tab [facility] (LEXAPRO) 1-03 by mouth [facility] 20 MG 00:00: daily. of tablet 00 Medicin e trazodone 2019-10 2020- No [id number] 100mg Take 2 [facility] (DESYREL) 1-03 12-04 Tabs by [facility] e 50 MG 00:00: 05:59 mouth of tablet 00 :00 nightly Medicin for 30 e days. trazodone 2019-10 2020- No [id number] 100mg Take 2 [facility] (DESYREL) 10-13 12-04 Tabs by [facility] e 50 MG 00:00: 05:59 mouth of tablet 00 :00 nightly Medicin for 30 e days. busPIRone 2019-10 2020- No [id number] 7.5mg Take 1 Tab [facility] (BUSPAR) 10-13 by mouth Colleg e 7.5 MG 00:00: 00:00 two times of tablet 00 :00 daily for Medicin 30 days. e busPIRone 2019-10 2020- No [id number] 7.5mg Take 1 Tab [facility] (BUSPAR) 10-13 by mouth Colleg e 7.5 MG 00:00: 00:00 two times of tablet 00 :00 daily for Medicin 30 days. e XIFAXAN 550 2019-10 Yes 550mg 550 mg 3 [facility] TABS 0-26 times College 00:00: daily. of Medicin e promethazin 2019-10 Yes [id number] TAKE 1 [facility] e 0-26 TABLET BY [facility] (PHENERGAN) 00:00: MOUTH of 12.5 MG 00 EVERY 8 Medicin tablet HOURS e NEEDED FOR NAUSEA XIFAXAN 550 2019-10 Yes 550mg 550 mg 3 [facility] MG TABS 0-26 times College 00:00: daily. of Medicin e promethazin 2019-10 Yes [id number] TAKE 1 [facility] 0-26 TABLET BY [facility] (PHENERGAN) 00:00: MOUTH of 12.5 MG 00 EVERY 8 Medicin tablet HOURS e NEEDED FOR NAUSEA XIFAXAN 550 2019-10 Yes 550mg 550 mg 3 [facility] MG TABS 0-26 times College 00:00: daily. of Medicin e promethazin 2019-10 Yes [id number] TAKE 1 [facility] 0-26 TABLET BY [facility] (PHENERGAN) 00:00: MOUTH of 12.5 MG 00 EVERY 8 Medicin tablet HOURS e NEEDED FOR NAUSEA XIFAXAN 550 2019-10 Yes 550mg 550 mg 3 [facility] MG TABS 0-26 times College 00:00: daily. of Medicin e promethazin 2019-10 Yes [id number] TAKE 1 [facility] 0-26 TABLET BY [facility] (PHENERGAN) 00:00: MOUTH of 12.5 MG 00 EVERY 8 Medicin tablet HOURS e NEEDED FOR NAUSEA promethazin 2020-1 Yes [id number] TAKE 1 [facility] 0-26 TABLET BY [facility] (PHENERGAN) 00:00: MOUTH of 12.5 MG 00 EVERY 8 Medicin tablet HOURS e NEEDED FOR NAUSEA promethazin 2020-1 Yes [id number] TAKE 1 [facility] 0-26 TABLET BY [facility] (PHENERGAN) 00:00: MOUTH of 12.5 MG 00 EVERY 8 Medicin tablet HOURS e NEEDED FOR NAUSEA XIFAXAN 2019-1 Yes [facility] (RIFAXIMIN) 0-22 [facility] 550 MG TABS 00:00: ty 00 [facility] spironolact 2019-1 Yes Take by [facility] one 0-22 mouth. [facility] (ALDACTONE) 00:00: of 50 MG 00 Medicin tablet e spironolact 2019-1 Yes Take by [facility] one 0-22 mouth. [facility] (ALDACTONE) 00:00: of 50 MG 00 Medicin tablet e FERROUS 2019-1 Yes [facility] SULFATE 0-22 [facility] (FERROUS 00:00: ty SULFATE 00 Health TABS) TABS (CARVEDILOL 2020-1 Yes [facility] ) 6.25 MG 0-22 [facility] TABS 00:00: ty 00 [facility] (URSODIOL) 2020-1 Yes [facility] 500 MG TABS 0-22 [facility] 00:00: ty 00 Health (OMEPRAZOLE 2020-1 Yes [facility] ) 40 MG 0-22 [facility] CPDR 00:00: ty 00 [facility] (ATORVASTAT 2020-1 Yes [facility] IN CALCIUM) 0-22 [facility] 40 MG TABS 00:00: ty 00 Health (FUROSEMIDE 2020-1 Yes [facility] ) 20 MG 0-22 [facility] TABS 00:00: ty 00 [facility] (SPIRONOLAC 2020-1 Yes [facility] TONE) 50 MG 0-22 [facility] TABS 00:00: ty 00 Health (LEVOTHYROX 2020-1 Yes [facility] INE SODIUM) 0-22 [facility] 125 MCG 00:00: ty TABS 00 Health spironolact 2020-1 2020- No Take by [facility] one 0-22 12-17 mouth. [facility] (ALDACTONE) 00:00: 00:00 of 50 MG 00 :00 Medicin tablet e Cholestyram 2020-0 Yes 4g Take 4 g [facility] 4 9-24 by mouth 2 [facility] GM/DOSE 00:00: times of POWD 00 daily Medicin (before e meals). Cholestyram 2020-0 Yes 4g Take 4 g [facility] 4 9-24 by mouth 2 [facility] GM/DOSE 00:00: times of POWD 00 daily Medicin (before e meals). Cholestyram 2020-0 Yes 4g Take 4 g [facility] 4 9-24 by mouth 2 [facility] GM/DOSE 00:00: times of POWD 00 daily Medicin (before e meals). Cholestyram 2020-0 Yes 4g Take 4 g [facility] 4 9-24 by mouth 2 [facility] GM/DOSE 00:00: times of POWD 00 daily Medicin (before e meals). Cholestyram 2020-0 Yes 4g Take 4 g [facility] 4 9-24 by mouth 2 [facility] GM/DOSE 00:00: times of POWD 00 daily Medicin (before e meals). Cholestyram 2020-0 Yes 4g Take 4 g [facility] 4 9-24 by mouth 2 [facility] GM/DOSE 00:00: times of POWD 00 daily Medicin (before e meals). Cholestyram 2020-0 Yes 4g Take 4 g [facility] 4 9-24 by mouth 2 [facility] GM/DOSE 00:00: times of POWD 00 daily Medicin (before e meals). rosuvastati 2020-0 2020- No 1 tablet [facility] (CRESTOR) 07-01 Ney 20 MG 06:17: 00:00 of tablet 49 :00 Medicin e glimepiride 2020-0 2020- No 1 tablet [facility] (AMARYL) 4 07-01 College MG tablet 06:17: 00:00 of 07 :00 Medicin e thyroid 2020-0 2020- No 1 tablet [facility] (ARMOUR 07-01 Ney THYROID) 06:16: 00:00 of 120 MG 49 :00 Medicin tablet e pravastatin 2020-0 2020- No 1 tablet [facility] (PRAVACHOL) 07-01 Ney 40 MG 06:15: 00:00 of tablet 31 :00 Medicin e carvedilol 2020-0 Yes [id number] 6.25mg Take 6.25 [facility] (COREG) 06-26 9105 mg by Ney 6.25 MG 18:53: mouth 2 of tablet 35 times Medicin daily e (with meals). atorvastati 2020-0 Yes 40mg Take 40 mg [facility] (LIPITOR) 06-26 by mouth Danny ege 40 MG 18:53: daily. of tablet 35 Medicin e ferrous 2020-0 Yes ferrous [facility] sulfate 325 06-26 sulfate Colle ge (65 Fe) MG 18:53: 325 mg (65 o f tablet 35 mg iron) Medicin tablet e ondansetron 2019-0 Yes ondansetro [facility] (ZOFRAN) 4 06-26 n HCl 4 mg Col lege MG tablet 18:53: tablet of 35 Medicin e Ascorbic 2019-0 Yes Take by [facility] Acid 06-26 mouth. College (VITAMIN C 18:53: of OR) 35 Medicin e ascorbic 2019-0 Yes 500mg Take 500 [facility] acid 500 MG 06-26 mg by Ney tablet 18:53: mouth. of 35 Medicin e Ascorbic 2019-0 Yes 1 capsule [facility] Acid 06-26 [facility]ey (VITAMIN C) 18:53: of 500 MG CAPS 35 Medicin e busPIRone 0 Yes TAKE 1 [facility] (BUSPAR) 10 06-26 TABLET BY Col lege MG tablet 18:53: MOUTH of 35 TWICE A Medicin DAY e NEEDED Emollient 0 Yes Unknown [facility] (GOLD MARTINEZ 06-26 Ney MEDICATED 18:53: of BODY) 35 Medicin 5-0.15 % e LOTN folic acid 0 Yes 1 tablet [facility] cruzito 800 MCG 06-26 Ney TABS 18:53: of 35 Medicin e hyoscyamine 0 Yes 2 tablet [facility] (LEVSIN/SL) 06-26 as needed Col lege 0.125 MG SL 18:53: of tablet 35 Medicin e ibuprofen 2019-0 Yes 1 tablet [facility] (ADVIL) 200 06-26 as needed Col lege mg tablet 18:53: of 35 Medicin e lisinopril 0 Yes TAKE 1 [facility] (PRINIVIL, 06-26 TABLET BY Danny DURAN) 5 18:53: MOUTH of MG tablet 35 EVERY DAY Medic in e Methylcobal 2019-0 Yes Unknown [facility] cruzito maier 06-26 Ney ([id number] 18:53: of ) 1 MG CHEW 35 Medicin e Pantoprazol 2019-0 Yes 1 packet [facility] Sodium 06-26 College (PROTONIX) 18:53: of 40 MG PACK 35 Medicin e polyethylen 2020-0 Yes EVERY DAY [facility] glycol 06-26 [facility] (GLYCOLAX) 18:53: DIRECTED of 17 GM/SCOOP 35 Medicin powder e Psyllium 2020-0 Yes 1 packet [facility] (METAMUCIL) 06-26 with 8 Colleg e WAFR 18:53: ounces of of 35 liquid as Medicin needed e venlafaxine 2020-0 Yes 2 tablets [facility] (EFFEXOR) 06-26 Ney 75 MG 18:53: of tablet 35 Medicin e triamcinolo 2020-0 Yes 1 [facility] ne 06-26 applicatio Ney (KENALOG) 18:53: n to of 0.1 % 35 affected Medicin lotion area e warfarin 2020-0 Yes Unknown [facility] (COUMADIN) 06-26 Ney 5 MG tablet 18:53: of 35 Medicin e metformin 2019-0 2020- No TAKE 2 [facility] (GLUCOPHAGE 06-26 TABLETS BY Adelina zayas ) 500 MG 18:52: 00:00 MOUTH of tablet 31 :00 TWICE A Medicin DAY WITH e MEALS Continuous 2019-0 Yes [id number] Use new [facility] Blood Gluc - sensor College Sensor 00:00: every 14 of (FREESTYLE 00 days back Medi praneeth DEANA 14 of the e DAY SENSOR) upper arm, [facility] call if under 70 Continuous 2019-0 Yes [id number] Use reader [facility] Blood Gluc -16 to test Colleg e Medical Researcher 00:00: sugar of (FREESTYLE 00 before Medicin DEANA each meal, e READER) before MONICA sleep, as needed for lows or feeling shaky, sweaty, dizzy Continuous 2019-0 Yes [id number] 1{box} 1 Box [facility] Blood Gluc 9-16 every 14 [facility] Medical Researcher 00:00: days. of (FREESTYLE 00 Lot#: Medicin DEANA 2 [id number] e READER Exp: SYSTM) MONICA 12/08/2020 Continuous 2020-0 Yes [id number] 1{each} 1 Each Use [facility] Blood Gluc 9-16 as College Sensor 00:00: Directed. of (FREESTYLE 00 Lot:[id number] Med icin DEANA 2 6Exp:12/08 e SENSOR /2020 SYSTM) MISC Continuous 2020-0 Yes [id number] Use new [facility] Gluc 9-16 sensor College Sensor 00:00: every 14 of (FREESTYLE 00 days back Medi praneeth DEANA 14 of the e DAY SENSOR) upper arm, MISC call if under 70 Continuous 2020-0 Yes [id number] Use reader [facility] Blood Gluc 9-16 to test Colleg e Medical Researcher 00:00: sugar of (FREESTYLE 00 before Medicin DEANA each meal, e READER) before MONICA sleep, as needed for lows or feeling shaky, sweaty, dizzy Continuous 2020-0 Yes [id number] 1{box} 1 Box [facility] Blood Gluc 9-16 every 14 [facility] Medical Researcher 00:00: days. of (FREESTYLE 00 Lot#: Medicin DEANA 2 [id number] e READER Exp: SYSTM) MONICA 12/08/2020 Continuous 2020-0 Yes [id number] 1{each} 1 Each Use [facility] Blood Gluc 9-16 as College Sensor 00:00: Directed. of (FREESTYLE 00 Lot:[id number] Med icin DEANA 2 6Exp:12/08 e SENSOR /2020 SYSTM) MISC Continuous 2020-0 Yes [id number] Use new [facility] Blood Gluc 9-16 sensor College Sensor 00:00: every 14 of (FREESTYLE 00 days back Medi praneeth DEANA 14 of the e DAY SENSOR) upper arm, MISC call if under 70 Continuous 2020-0 Yes [id number] Use reader [facility] Blood Gluc 9-16 to test Colleg e Medical Researcher 00:00: sugar of (FREESTYLE 00 before Medicin DEANA each meal, e READER) before MONICA sleep, as needed for lows or feeling shaky, sweaty, dizzy Continuous 2020-0 Yes [id number] 1{box} 1 Box [facility] Blood Gluc 9-16 every 14 [facility] ge Medical Researcher 00:00: days. of (FREESTYLE 00 Lot#: Medicin DEANA 2 [id number] e READER Exp: SYSTM) MONICA 12/08/2020 Continuous 2020-0 Yes [id number] 1{each} 1 Each Use [facility] Blood Gluc 9-16 as College Sensor 00:00: Directed. of (FREESTYLE 00 Lot:[id number] Med icin DEANA 2 6Exp:12/08 e SENSOR /2020 SYSTM) MISC Continuous 2020-0 Yes [id number] Use new [facility] Blood Gluc 9-16 sensor College Sensor 00:00: every 14 of (FREESTYLE 00 days back Medi praneeth DEANA 14 of the e DAY SENSOR) upper arm, MISC call if under 70 Continuous 2020-0 Yes [id number] Use reader [facility] Blood Gluc 9-16 to test Colleg e Medical Researcher 00:00: sugar of (FREESTYLE 00 before Medicin DEANA each meal, e READER) before MONICA sleep, as needed for lows or feeling shaky, sweaty, dizzy Continuous 2020-0 Yes [id number] 1{box} 1 Box [facility] Blood Gluc 9-16 every 14 [facility] ge Medical Researcher 00:00: days. of (FREESTYLE 00 Lot#: Medicin DEANA 2 [id number] e READER Exp: SYSTM) MONICA 12/08/2020 Continuous 2020-0 Yes [id number] 1{each} 1 Each Use [facility] Blood Gluc 9-16 as College Sensor 00:00: Directed. of (FREESTYLE 00 Lot:[id number] Med icin DEANA 2 6Exp:12/08 e SENSOR /2020 SYSTM) MISC Continuous 2020-0 Yes [id number] Use new [facility] Blood Gluc 9-16 sensor College Sensor 00:00: every 14 of (FREESTYLE 00 days back Medi praneeth DEANA 14 of the e DAY SENSOR) upper arm, MISC call if under 70 Continuous 2020-0 Yes [id number] Use reader [facility] Gluc 9-16 to test Colleg e Medical Researcher 00:00: sugar of (FREESTYLE 00 before Medicin DEANA each meal, e READER) before MONICA sleep, as needed for lows or feeling shaky, sweaty, dizzy Continuous 2020-0 Yes [id number] 1{box} 1 Box [facility] Blood Gluc 9-16 every 14 [facility]le ge Medical Researcher 00:00: days. of (FREESTYLE 00 Lot#: Medicin DEANA 2 [id number] e READER Exp: SYSTM) MONICA 12/08/2020 Continuous 2020-0 Yes [id number] 1{each} 1 Each Use [facility] Blood Gluc 9-16 as College Sensor 00:00: Directed. of (FREESTYLE 00 Lot:[id number] Med icin DEANA 2 6Exp:12/08 e SENSOR /2020 SYSTM) MISC Continuous 2020-0 Yes [id number] Use new [facility] Blood Gluc 9-16 sensor College Sensor 00:00: every 14 of (FREESTYLE 00 days back Medi praneeth DEANA 14 of the e DAY SENSOR) upper arm, MISC call if under 70 Continuous 2020-0 Yes [id number] Use reader [facility] Blood Gluc 9-16 to test Colleg e Medical Researcher 00:00: sugar of (FREESTYLE 00 before Medicin DEANA each meal, e READER) before MONICA sleep, as needed for lows or feeling shaky, sweaty, dizzy Continuous 2020-0 Yes [id number] 1{box} 1 Box [facility] Gluc 9-16 every 14 [facility] ge Medical Researcher 00:00: days. of (FREESTYLE 00 Lot#: Medicin DEANA 2 [id number] e READER Exp: SYSTM) MONICA 12/08/2020 Continuous 2020-0 Yes [id number] 1{each} 1 Each Use [facility] Gluc 9-16 as College Sensor 00:00: Directed. of (FREESTYLE 00 Lot:[id number] Med icin DEANA 2 6Exp:12/08 e SENSOR /2020 SYSTM) MISC Continuous 2020-0 Yes [id number] Use new [facility] Gluc 9-16 sensor College Sensor 00:00: every 14 of (FREESTYLE 00 days back Medi praneeth DEANA 14 of the e DAY SENSOR) upper arm, MISC call if under 70 Continuous 2020-0 Yes [id number] Use reader [facility] Blood Gluc 9-16 to test Colleg e Medical Researcher 00:00: sugar of (FREESTYLE 00 before Medicin DEANA each meal, e READER) before MONICA sleep, as needed for lows or feeling shaky, sweaty, dizzy Continuous 2020-0 Yes [id number] 1{box} 1 Box [facility] Blood Gluc 9-16 every 14 [facility] ge Medical Researcher 00:00: days. of (FREESTYLE 00 Lot#: Medicin DEANA 2 [id number] e READER Exp: SYSTM) MONICA 12/08/2020 Continuous 2020-0 Yes [id number] 1{each} 1 Each Use [facility] Blood Gluc 9-16 as College Sensor 00:00: Directed. of (FREESTYLE 00 Lot:[id number] Med icin DEANA 2 6Exp:12/08 e SENSOR /2020 SYSTM) MISC carvedilol 2020-0 Yes [id number] 6.25mg Take 6.25 [facility] (COREG) 06-24 9105 mg by College 6.25 MG 21:36: mouth 2 of tablet 14 times Medicin daily e (with meals). atorvastati 2020-0 Yes 40mg Take 40 mg [facility] n (LIPITOR) 06-24 by mouth Danny ege 40 MG 21:36: daily. of tablet 14 Medicin e ferrous 2020-0 Yes ferrous [facility] sulfate 325 06-24 sulfate [facility] (65 Fe) MG 21:36: 325 mg (65 o f tablet 14 mg iron) Medicin tablet e Ascorbic 0 Yes Take by [facility] Acid 06-24 mouth. Ney (VITAMIN C 21:36: of OR) 14 Medicin e ascorbic 2020-0 Yes 500mg Take 500 [facility] acid 500 MG 06-24 mg by Ney tablet 21:24: mouth. of 50 Medicin e Ascorbic 2019-0 Yes 1 capsule [facility] Acid 06-24 Ney (VITAMIN C) 21:24: of 500 MG CAPS 50 Medicin e busPIRone 0 Yes TAKE 1 [facility] (BUSPAR) 10 06-24 TABLET BY Col lege MG tablet 21:24: MOUTH of 50 TWICE A Medicin DAY e NEEDED Emollient 0 Yes Unknown [facility] (GOLD MARTINEZ 06-24 College MEDICATED 21:24: of BODY) 50 Medicin 5-0.15 % e LOTN folic acid 2019-0 Yes 1 tablet [facility] cruzito 800 MCG 06-24 Ney TABS 21:24: of 50 Medicin e glimepiride 2020-0 Yes 1 tablet [facility] (AMARYL) 4 06-24 College MG tablet 21:24: of 50 Medicin e hyoscyamine 2020-0 Yes 2 tablet [facility] (LEVSIN/SL) 06-24 as needed Col lege 0.125 MG SL 21:24: of tablet 50 Medicin e ibuprofen 2020-0 Yes 1 tablet [facility] (ADVIL) 200 06-24 as needed [facility] mg tablet 21:24: of 50 Medicin e lisinopril 2020-0 Yes TAKE 1 [facility] (PRINIVIL, 06-24 TABLET BY Danny john ZESTRIL) 5 21:24: MOUTH of MG tablet 50 EVERY DAY Medic in e metformin 2020-0 Yes TAKE 2 [facility] (GLUCOPHAGE 06-24 TABLETS BY Co les ) 500 MG 21:24: MOUTH of tablet 50 TWICE A Medicin DAY WITH e MEALS Methylcobal 2020-0 Yes Unknown [facility] maier 06-24 Ney ([id number] 21:24: of ) 1 MG CHEW 50 Medicin e Pantoprazol 2020-0 Yes 1 packet [facility] Sodium 06-24 Ney (PROTONIX) 21:24: of 40 MG PACK 50 Medicin e polyethylen 2020-0 Yes EVERY DAY [facility] e glycol 06-24 College (GLYCOLAX) 21:24: DIRECTED of 17 GM/SCOOP 50 Medicin powder e pravastatin 2020-0 Yes 1 tablet [facility] (PRAVACHOL) 06-24 Ney 40 MG 21:24: of tablet 50 Medicin e Psyllium 2020-0 Yes 1 packet [place] [facility] (METAMUCIL) 06-24 with 8 Colleg e WAFR 21:24: ounces of of 50 liquid as Medicin needed e rosuvastati 2020-0 Yes 1 tablet [facility] (CRESTOR) 06-24 Ney 20 MG 21:24: of tablet 50 Medicin e thyroid 2020-0 Yes 1 tablet [facility] (ARMOUR 06-24 Ney THYROID) 21:24: of 120 MG 50 Medicin tablet e venlafaxine 2020-0 Yes 2 tablets [facility] (EFFEXOR) 06-24 Ney 75 MG 21:24: of tablet 50 Medicin e triamcinolo 2020-0 Yes 1 [facility] ne 06-24 applicatio Ney (KENALOG) 21:24: n to of 0.1 % 50 affected Medicin lotion area e warfarin 2020-0 Yes Unknown [facility] (COUMADIN) 06-24 Ney 5 MG tablet 21:24: of 50 Medicin e Cholestyram 2020-0 Yes 1g Take 1 g [facility] 4 06-24 by mouth 2 College GM/DOSE 00:00: times of POWD 00 daily Medicin (before e meals). Cholestyram 2020-0 Yes 1g Take 1 g [facility] 4 06-24 by mouth 2 College GM/DOSE 00:00: times of POWD 00 daily Medicin (before e meals). dicyclomine 2020-0 Yes [id number] TAKE 1 [facility] (BENTYL) 10 9-10 CAPSULE BY Co llege MG capsule 00:00: MOUTH of 00 TWICE A Medicin DAY e dicyclomine 2019-0 Yes [id number] TAKE 1 [facility] (BENTYL) 10 9-10 CAPSULE BY Co llege MG capsule 00:00: MOUTH of 00 TWICE A Medicin DAY e escitalopra 2020-0 Yes [id number] 20mg Take 1 Tab [facility] (LEXAPRO) 06-18 by mouth Danny ege 20 MG 00:00: daily. of tablet 00 Medicin e escitalopra 2019-0 Yes [id number] 20mg Take 1 Tab [facility] m (LEXAPRO) 06-18 by mouth Danny ege 20 MG 00:00: daily. of tablet 00 Medicin e trazodone 2019-0 2020- No [id number] 100mg Take 2 [facility] (DESYREL) 06-18 10 Tabs by Colleg e 50 MG 00:00: 04:59 mouth of tablet 00 :00 nightly as Medicin needed for e Sleep for up to 30 days. trazodone 0 2020- No [id number] 100mg Take 2 [facility] (DESYREL) 06-18 10 Tabs by Colleg e 50 MG 00:00: 04:59 mouth of tablet 00 :00 nightly as Medicin needed for e Sleep for up to 30 days. rosuvastati 0 Yes 1 tablet [facility] (CRESTOR) 06-12 Ney 20 MG 18:59: of tablet 09 Medicin e thyroid 0 Yes 1 tablet [facility] (ARMOUR 06-12 Ney THYROID) 18:59: of 120 MG 09 Medicin tablet e venlafaxine 0 Yes 2 tablets [facility] (EFFEXOR) 06-12 Ney 75 MG 18:59: of tablet 09 Medicin e triamcinolo 2019- Yes 1 [facility] ne 06-12 applicatio Ney (KENALOG) 18:59: n to of 0.1 % 09 affected Medicin lotion area e warfarin Yes Unknown [facility] (COUMADIN) 06-12 Ney 5 MG tablet 18:59: of 09 Medicin e ibuprofen 0 Yes 1 tablet [facility] (ADVIL) 200 06-12 as needed Col lege mg tablet 18:59: of 08 Medicin e lisinopril 2020-0 Yes TAKE 1 [facility] (PRINIVIL, 06-12 TABLET BY Danny DURAN) 5 18:59: MOUTH of MG tablet 08 EVERY DAY Medic in e metformin 2020-0 Yes TAKE 2 [facility] (GLUCOPHAGE 06-12 TABLETS BY Will saldana ) 500 MG 18:59: MOUTH of tablet 08 TWICE A Medicin DAY WITH e MEALS Methylcobal 2020-0 Yes Unknown [facility] maier 06-12 Ney ([id number] 18:59: of ) 1 MG CHEW 08 Medicin e Pantoprazol 2020-0 Yes 1 packet [facility] Sodium 06-12 Ney (PROTONIX) 18:59: of 40 MG PACK 08 Medicin e polyethylen 2020-0 Yes EVERY DAY [facility] glycol 06-12 College (GLYCOLAX) 18:59: DIRECTED of 17 GM/SCOOP 08 Medicin powder e pravastatin 2020-0 Yes 1 tablet [facility] (PRAVACHOL) 06-12 Ney 40 MG 18:59: of tablet 08 Medicin e Psyllium 2020-0 Yes 1 packet [facility] (METAMUCIL) 06-12 with 8 Colleg e WAFR 18:59: ounces of of 08 liquid as Medicin needed e Ascorbic 2020-0 Yes 1 capsule [facility] Acid 06-12 Ney (VITAMIN C) 18:59: of 500 MG CAPS 07 Medicin e busPIRone 2020-0 Yes TAKE 1 [facility] (BUSPAR) 10 06-12 TABLET BY Col lege MG tablet 18:59: MOUTH of 07 TWICE A Medicin DAY e NEEDED Emollient 2020-0 Yes Unknown [facility] (GOLD MARTINEZ 06-12 Ney MEDICATED 18:59: of BODY) 07 Medicin 5-0.15 % e LOTN folic acid 2020-0 Yes 1 tablet [facility] cruzito 800 MCG 06-12 Ney TABS 18:59: of 07 Medicin e glimepiride 2020-0 Yes 1 tablet [facility] (AMARYL) 4 06-12 Ney MG tablet 18:59: of 07 Medicin e hyoscyamine 2020-0 Yes 2 tablet [facility] (LEVSIN/SL) 06-12 as needed Col lege 0.125 MG SL 18:59: of tablet 07 Medicin e ascorbic 2020-0 Yes 500mg Take 500 [facility] acid 500 MG 02 mg by College tablet 18:59: mouth. of 06 Medicin e dicyclomine 2020-0 Yes [id number] 10mg Take 1 Cap [facility] (BENTYL) 10 8-28 by mouth Danny ege MG capsule 00:00: two times of 00 daily. Medicin e omeprazole 2020-0 Yes [id number] 40mg Take 1 Cap [facility] (PRILOSEC) 8-28 by mouth Colle ge 40 MG 00:00: daily. of capsule 00 Medicin e omeprazole 2020-0 Yes [id number] 40mg Take 1 Cap [facility] (PRILOSEC) 8-28 by mouth Colle ge 40 MG 00:00: daily. of capsule 00 Medicin e omeprazole 2020-0 Yes [id number] 40mg Take 1 Cap [facility] (PRILOSEC) 8-28 by mouth Colle ge 40 MG 00:00: daily. of capsule 00 Medicin e omeprazole 2020-0 Yes [id number] 40mg Take 1 [facility] (PRILOSEC) 8-28 by mouth Colle ge 40 MG 00:00: daily. of capsule 00 Medicin e omeprazole 2020-0 Yes [id number] 40mg Take 1 Cap [facility] (PRILOSEC) 8-28 by mouth Colle ge 40 MG 00:00: daily. of capsule 00 Medicin e omeprazole 2020-0 Yes [id number] 40mg Take 1 Cap [facility] (PRILOSEC) 8-28 by mouth Colle ge 40 MG 00:00: daily. of capsule 00 Medicin e omeprazole 2020-0 Yes [id number] 40mg Take 1 Cap [facility] (PRILOSEC) 8-28 by mouth Colle ge 40 MG 00:00: daily. of capsule 00 Medicin e omeprazole 2020-0 2020- No [id number] 40mg Take 1 [facility] (PRILOSEC) 8-28 12-22 by mouth Danny ege 40 MG 00:00: 00:00 daily. of capsule 00 :00 Medicin e escitalopra 2020-0 Yes 20mg Take 1 Tab [facility] (LEXAPRO) 8-25 by mouth Danny ege 20 MG 00:00: daily. of tablet 00 Medicin e furosemide 2020-0 2020- No 20mg Q.5D Take [address] [facility] (LASIX) 20 8-25 11-18 tablet (20 Elena kes MG tablet 00:00: 00:00 mg total) Me dical 00 :00 by mouth 2 Center (two) times daily. furosemide 2020-0 2020- No 20mg Q.5D Take [address] [facility] (LASIX) 20 8-25 11-18 tablet (20 Elena kes MG tablet 00:00: 00:00 mg total) Me dical 00 :00 by mouth 2 Center (two) times daily. ergocalcife 2020-0 Yes [id number] Take Univ ers rol, 8-16 50,000 ity of vitamin d2, 22:28: Units by Hossein arvizus (VITAMIN 28 mouth Medical D2) 1,250 weekly. On [facility] ch mcg (50,000 Wednesday unit) capsule Levothyroxi 2020-0 Yes 125ug Take 125 U nivers ne 125 mcg 8-16 mcg by ity of capsule 22:28: mouth [place] 28 daily. Medical Branch spironolact 2020-0 Yes 50mg Take 50 mg [facility] one 50 mg 8-16 by mouth ity of tablet 22:28: daily. [place] [address] Medical Branch furosemide 2020-0 Yes 20mg Take 20 mg U nivers 20 mg 8-16 by mouth ity of tablet 22:28: daily. [address] Branch atorvastati 2020-0 Yes 40mg Take 40 mg Univers n 40 mg 8-16 by mouth ity of tablet 22:28: daily. [place] [address] Medical Branch ascorbic 2020-0 Yes 500mg Take 500 Univ ers acid, 8-16 mg by ity of vitamin C, 22:28: mouth [place] (VITAMIN C) 28 daily. Medica l 500 mg Branch tablet omeprazole 2020-0 Yes 40mg Take 40 mg U nivers 40 mg 8-16 by mouth ity of capsule 22:28: daily. [place] [address] Medical Branch apixaban 2020-0 Yes 5mg Take 5 mg Univ ers (ELIQUIS) 8-16 by mouth 2 ity of 2.5 mg 22:28: (two) [place] tablet 28 times Medical daily. Branch escitalopra 2020-0 Yes 20mg Take 20 mg [facility] m oxalate 8-16 by mouth ity of 20 mg 22:28: at [place] tablet 28 bedtime. Medical Branch ursodiol 2020-0 Yes 500mg Take 500 Univ ers 500 mg 8-16 mg by ity of tablet 22:28: mouth 2 [place] 28 (two) Medical times Branch daily. carvediloL 2020-0 Yes 6.25mg Take 6.25 Univers 6.25 mg 8-16 mg by ity of tablet 22:28: mouth 2 [place] 28 (two) Medical times Branch daily with meals. ferrous 2020-0 Yes 325mg Take 325 Unive rs sulfate 325 8-16 mg by ity of mg (65 mg 22:28: mouth 2 [place] iron) 28 (two) Medical tablet times Branch daily. rifAXIMin 2020-0 Yes 550mg Take 550 Uni vers (XIFAXAN) 8-16 mg by ity of 550 mg 22:28: mouth 3 [place] tablet 28 (three) Medical times Branch daily. traMADol 50 2020-0 Yes 50mg Take 50 mg [facility] mg tablet 8-16 by mouth ity of 22:28: every 6 [place] 28 (six) Medical hours as Branch needed for Pain (scale 4-6). dicyclomine 2020-0 Yes 10mg Take 10 mg [facility] 10 mg 8-16 by mouth 2 ity of capsule 22:28: (two) [place] 28 times Medical daily as Branch needed for Abdominal pain. traZODone 2020-0 Yes 50mg Take 50 mg Un armando 50 mg 8-16 by mouth ity of tablet 22:28: at bedtime [place] 28 as needed Medical for Branch Insomnia. proMETHazin 2020-0 Yes 12.5mg Take 12.5 Univers e 12.5 mg 8-16 mg by ity of tablet 22:28: mouth [place] 28 every 6 Medical (six) Branch hours as needed for Nausea and Vomiting (N/V). ondansetron 2020-0 Yes 4mg Take 4 mg U nivers 4 mg 8-16 by mouth ity of disintegrat 22:28: every 4 [place] as ing tablet 28 (four) Medical hours as Branch needed. ergocalcife 2020-0 Yes [id number] Take Univ ers rol, 8-16 50,000 ity of vitamin d2, 22:28: Units by Hossein baldwin (VITAMIN 28 mouth Medical D2) 1,250 weekly. On [facility] ch mcg (50,000 Wednesday unit) capsule Levothyroxi 2020-0 Yes 125ug Take 125 U nivers ne 125 mcg 8-16 mcg by ity of capsule 22:28: mouth [place] 28 daily. Medical Branch spironolact 2020-0 Yes 50mg Take 50 mg [facility] one 50 mg 8-16 by mouth ity of tablet 22:28: daily. [place] [address] Medical Branch furosemide 2020-0 Yes 20mg Take 20 mg U nivers 20 mg 8-16 by mouth ity of tablet 22:28: daily. [place] [address] Medical Branch atorvastati 2020-0 Yes 40mg Take 40 mg Univers n 40 mg 8-16 by mouth ity of tablet 22:28: daily. [place] [address] Medical Branch ascorbic 2020-0 Yes 500mg Take 500 Univ ers acid, 8-16 mg by ity of vitamin C, 22:28: mouth [place] (VITAMIN C) 28 daily. Medica l 500 mg Branch tablet omeprazole 2020-0 Yes 40mg Take 40 mg U nivers 40 mg 8-16 by mouth ity of capsule 22:28: daily. [place] [address] Medical Branch apixaban 2020-0 Yes 5mg Take 5 mg Univ ers (ELIQUIS) 8-16 by mouth 2 ity of 2.5 mg 22:28: (two) [place] tablet 28 times Medical daily. Branch escitalopra 2020-0 Yes 20mg Take 20 mg Univers m oxalate 8-16 by mouth ity of 20 mg 22:28: at [place] tablet 28 bedtime. Medical Branch ursodiol 2020-0 Yes 500mg Take 500 Univ ers 500 mg 8-16 mg by ity of tablet 22:28: mouth 2 [place] 28 (two) Medical times Branch daily. carvediloL 2020-0 Yes 6.25mg Take 6.25 Univers 6.25 mg 8-16 mg by ity of tablet 22:28: mouth 2 [place] (two) Medical times Branch daily with meals. ferrous 2020-0 Yes 325mg Take 325 Unive rs sulfate 325 8-16 mg by ity of mg (65 mg 22:28: mouth 2 [place] iron) 28 (two) Medical tablet times Branch daily. rifAXIMin 2020-0 Yes 550mg Take 550 Uni vers (XIFAXAN) 8-16 mg by ity of 550 mg 22:28: mouth 3 [place] tablet 28 (three) Medical times Branch daily. traMADol 50 2020-0 Yes 50mg Take 50 mg Univers mg tablet 8-16 by mouth ity of 22:28: every 6 [place] [address] (six) Medical hours as Branch needed for Pain (scale 4-6). dicyclomine 2020-0 Yes 10mg Take 10 mg [facility] 10 mg 8-16 by mouth 2 ity of capsule 22:28: (two) [place] 28 times Medical daily as Branch needed for Abdominal pain. traZODone 2020-0 Yes 50mg Take 50 mg Un armando 50 mg 8-16 by mouth ity of tablet 22:28: at bedtime [place] 28 as needed Medical for Branch Insomnia. proMETHazin 2020-0 Yes 12.5mg Take 12.5 Univers e 12.5 mg 8-16 mg by ity of tablet 22:28: mouth [place] 28 every 6 Medical (six) Branch hours as needed for Nausea and Vomiting (N/V). ondansetron 2020-0 Yes 4mg Take 4 mg U nivers 4 mg 8-16 by mouth ity of disintegrat 22:28: every 4 [place] as ing tablet 28 (four) Medical hours as Branch needed. ergocalcife 2020-0 Yes [id number] Take Univ ers rol, 8-16 50,000 ity of vitamin d2, 22:28: Units by Hossein baldwin (VITAMIN 28 mouth Medical D2) 1,250 weekly. On Bran ch mcg (50,000 Wednesday unit) capsule Levothyroxi 2020-0 Yes 125ug Take 125 U nivers ne 125 mcg 8-16 mcg by ity of capsule 22:28: mouth [place] 28 daily. Medical Branch spironolact 2020-0 Yes 50mg Take 50 mg [facility] one 50 mg 8-16 by mouth ity of tablet 22:28: daily. [place] [address] Medical Branch furosemide 2020-0 Yes 20mg Take 20 mg U nivers 20 mg 8-16 by mouth ity of tablet 22:28: daily. [address] Branch atorvastati 2020-0 Yes 40mg Take 40 mg Univers n 40 mg 8-16 by mouth ity of tablet 22:28: daily. [place] [address] Medical Branch ascorbic 2020-0 Yes 500mg Take 500 Univ ers acid, 8-16 mg by ity of vitamin C, 22:28: mouth [place] (VITAMIN C) 28 daily. Medica l 500 mg Branch tablet omeprazole 2020-0 Yes 40mg Take 40 mg U nivers 40 mg 8-16 by mouth ity of capsule 22:28: daily. [address] Branch apixaban 2020-0 Yes 5mg Take 5 mg [facility] ers (ELIQUIS) 8-16 by mouth 2 ity of 2.5 mg 22:28: (two) [place] tablet 28 times Medical daily. Branch escitalopra 2020-0 Yes 20mg Take 20 mg [facility] m oxalate 8-16 by mouth ity of 20 mg 22:28: at [place] tablet 28 bedtime. Medical Branch ursodiol 2020-0 Yes 500mg Take 500 [facility] ers 500 mg 8-16 mg by ity of tablet 22:28: mouth 2 [place] 28 (two) Medical times Branch daily. carvediloL 2020-0 Yes 6.25mg Take 6.25 [facility] 6.25 mg 8-16 mg by ity of tablet 22:28: mouth 2 [place] 28 (two) Medical times Branch daily with meals. ferrous 2020-0 Yes 325mg Take 325 Un[facility] rs sulfate 325 8-16 mg by ity of mg (65 mg 22:28: mouth 2 [place] iron) 28 (two) Medical tablet times Branch daily. rifAXIMin 2020-0 Yes 550mg Take 550 Uni vers (XIFAXAN) 8-16 mg by ity of 550 mg 22:28: mouth 3 [place] tablet 28 (three) Medical times Branch daily. traMADol 50 2020-0 Yes 50mg Take 50 mg [facility] mg tablet 8-16 by mouth ity of 22:28: every 6 [place] 28 (six) Medical hours as Branch needed for Pain (scale 4-6). dicyclomine 2020-0 Yes 10mg Take 10 mg [facility] 10 mg 8-16 by mouth 2 ity of capsule 22:28: (two) [place] 28 times Medical daily as Branch needed for Abdominal pain. traZODone 2020-0 Yes 50mg Take 50 mg [facility] 50 mg 8-16 by mouth ity of tablet 22:28: at bedtime [place] 28 as needed Medical for Branch Insomnia. proMETHazin 2020-0 Yes 12.5mg Take 12.5 Univers e 12.5 mg 8-16 mg by ity of tablet 22:28: mouth [place] 28 every 6 Medical (six) Branch hours as needed for Nausea and Vomiting (N/V). ondansetron 2020-0 Yes 4mg Take 4 mg U nivers 4 mg 8-16 by mouth ity of disintegrat 22:28: every 4 [place] tablet 28 (four) Medical hours as Branch needed. ergocalcife 2020-0 Yes [id number] Take Univ ers rol, 8-16 50,000 ity of vitamin d2, 22:28: Units by Hossein baldwin (VITAMIN 28 mouth Medical D2) 1,250 weekly. On Bran ch mcg (50,000 Wednesday unit) capsule Levothyroxi 2020-0 Yes 125ug Take 125 U nivers ne 125 mcg 8-16 mcg by ity of capsule 22:28: mouth [place] 28 daily. Medical Branch spironolact 2020-0 Yes 50mg Take 50 mg [facility] one 50 mg 8-16 by mouth ity of tablet 22:28: daily. [place] [address] Medical Branch furosemide 2020-0 Yes 20mg Take 20 mg U nivers 20 mg 8-16 by mouth ity of tablet 22:28: daily. [place] [address] Medical Branch atorvastati 2020-0 Yes 40mg Take 40 mg [facility] n 40 mg 8-16 by mouth ity of tablet 22:28: daily. [place] [address] Medical Branch ascorbic 2020-0 Yes 500mg Take 500 [facility] ers acid, 8-16 mg by ity of vitamin C, 22:28: mouth [place] (VITAMIN C) 28 daily. Medica l 500 mg Branch tablet omeprazole 2020-0 Yes 40mg Take 40 mg U nivers 40 mg 8-16 by mouth ity of capsule 22:28: daily. [place] [address] Medical Branch apixaban 2020-0 Yes 5mg Take 5 mg [facility] ers (ELIQUIS) 8-16 by mouth 2 ity of 2.5 mg 22:28: (two) [place] tablet 28 times Medical daily. Branch escitalopra 2020-0 Yes 20mg Take 20 mg [facility] m oxalate 8-16 by mouth ity of 20 mg 22:28: at [place] tablet 28 bedtime. Medical Branch ursodiol 2020-0 Yes 500mg Take 500 [facility] ers 500 mg 8-16 mg by ity of tablet 22:28: mouth 2 28 (two) Medical times Branch daily. carvediloL 2020-0 Yes 6.25mg Take 6.25 [facility] 6.25 mg 8-16 mg by ity of tablet 22:28: mouth 2 [place] 28 (two) Medical times Branch daily with meals. ferrous 2020-0 Yes 325mg Take 325 Un[facility] rs sulfate 325 8-16 mg by ity of mg (65 mg 22:28: mouth 2 [place] iron) 28 (two) Medical tablet times Branch daily. rifAXIMin 2020-0 Yes 550mg Take 550 Uni vers (XIFAXAN) 8-16 mg by ity of 550 mg 22:28: mouth 3 [place] tablet 28 (three) Medical times Branch daily. traMADol 50 2020-0 Yes 50mg Take 50 mg [facility] mg tablet 8-16 by mouth ity of 22:28: every 6 [place] 28 (six) Medical hours as Branch needed for Pain (scale 4-6). dicyclomine 2020-0 Yes 10mg Take 10 mg [facility] 10 mg 8-16 by mouth 2 ity of capsule 22:28: (two) [place] 28 times Medical daily as Branch needed for Abdominal pain. traZODone 2020-0 Yes 50mg Take 50 mg [facility] 50 mg 8-16 by mouth ity of tablet 22:28: at bedtime [place] 28 as needed Medical for Branch Insomnia. proMETHazin 2020-0 Yes 12.5mg Take 12.5 Univers e 12.5 mg 8-16 mg by ity of tablet 22:28: mouth [place] 28 every 6 Medical (six) Branch hours as needed for Nausea and Vomiting (N/V). ondansetron 2020-0 Yes 4mg Take 4 mg U nivers 4 mg 8-16 by mouth ity of disintegrat 22:28: every 4 [place] tablet 28 (four) Medical hours as Branch needed. ergocalcife 2020-0 Yes [id number] Take [facility] ers rol, 8-16 50,000 ity of vitamin d2, 17:28: Units by Hossein baldwin (VITAMIN 28 mouth Medical D2) 1,250 weekly. On [facility] ch mcg (50,000 Wednesday unit) capsule Levothyroxi 2020-0 Yes 125ug Take 125 U nivers ne 125 mcg 8-16 mcg by ity of capsule 17:28: mouth [place] 28 daily. Medical Branch spironolact 2020-0 Yes 50mg Take 50 mg [facility] one 50 mg 8-16 by mouth ity of tablet 17:28: daily. Medical Branch furosemide 2020-0 Yes 20mg Take 20 mg U nivers 20 mg 8-16 by mouth ity of tablet 17:28: daily. Medical Branch atorvastati 2020-0 Yes 40mg Take 40 mg [facility] n 40 mg 8-16 by mouth ity of tablet 17:28: daily. Medical Branch ascorbic 2020-0 Yes 500mg Take 500 [facility] ers acid, 8-16 mg by ity of vitamin C, 17:28: mouth [place] (VITAMIN C) 28 daily. Medica l 500 mg Branch tablet omeprazole 2020-0 Yes 40mg Take 40 mg U nivers 40 mg 8-16 by mouth ity of capsule 17:28: daily. [place] 28 Medical Branch apixaban 2020-0 Yes 5mg Take 5 mg [facility] ers (ELIQUIS) 8-16 by mouth 2 ity of 2.5 mg 17:28: (two) [place] tablet 28 times Medical daily. Branch escitalopra 2020-0 Yes 20mg Take 20 mg [facility] m oxalate 8-16 by mouth ity of 20 mg 17:28: at [place] tablet 28 bedtime. Medical Branch ursodiol 2020-0 Yes 500mg Take 500 [facility] ers 500 mg 8-16 mg by ity of tablet 17:28: mouth 2 [place] 28 (two) Medical times Branch daily. carvediloL 2020-0 Yes 6.25mg Take 6.25 [facility] 6.25 mg 8-16 mg by ity of tablet 17:28: mouth 2 28 (two) Medical times Branch daily with meals. ferrous 2020-0 Yes 325mg Take 325 Unive rs sulfate 325 8-16 mg by ity of mg (65 mg 17:28: mouth 2 [place] iron) 28 (two) Medical tablet times Branch daily. rifAXIMin 2020-0 Yes 550mg Take 550 Uni vers (XIFAXAN) 8-16 mg by ity of 550 mg 17:28: mouth 3 [place] tablet 28 (three) Medical times Branch daily. traMADol 50 2020-0 Yes 50mg Take 50 mg [facility] mg tablet 8-16 by mouth ity of 17:28: every 6 [place] [address] (six) Medical hours as Branch needed for Pain (scale 4-6). dicyclomine 2020-0 Yes 10mg Take 10 mg [facility] 10 mg 8-16 by mouth 2 ity of capsule 17:28: (two) [place] 28 times Medical daily as Branch needed for Abdominal pain. traZODone 2020-0 Yes 50mg Take 50 mg Un armadno 50 mg 8-16 by mouth ity of tablet 17:28: at bedtime 28 as needed Medical for Branch Insomnia. proMETHazin 2020-0 Yes 12.5mg Take 12.5 Univers e 12.5 mg 8-16 mg by ity of tablet 17:28: mouth [place] 28 every 6 Medical (six) Branch hours as needed for Nausea and Vomiting (N/V). ondansetron 2020-0 Yes 4mg Take 4 mg U nivers 4 mg 8-16 by mouth ity of disintegrat 17:28: every 4 [place] ing tablet 28 (four) Medical hours as Branch needed. famotidine 2020-0 Yes 20mg 20 mg, Unive rs (PEPCID AC) 8-16 Oral, BID, it y of tablet 20 15:22: First dose [place] mg 00 on [facility] 05/26/20 at Branch 1030, Until Discontinu ed, Routine QUEtiapine 2020-0 Yes 50mg 50 mg, Unive rs (SEROQUEL) 8-16 Oral, QHS, ity of tablet 50 03:45: First dose [place] mg 00 on [facility] Medical 05/25/20 at Branch 2245, Until Discontinu ed, Routine famotidine 2020-0 Yes 20mg Take 20 mg [facility] (PEPCID) 20 8-16 by mouth. Col lege MG tablet 00:00: of 00 Medicin e famotidine 2020-0 Yes 20mg Take 20 mg [facility] (PEPCID) 20 8-16 by mouth. Col lege MG tablet 00:00: of 00 Medicin e famotidine 2020-0 Yes 20mg Take 20 mg [facility] (PEPCID) 20 8-16 by mouth. Col lege MG tablet 00:00: of 00 Medicin e NaCl 0.9% 2020-0 Yes 1000mL at 50 Unive rs (NS) IV 8-15 mL/hr, IV ity of infusion 16:15: In[place], [place] 1,000 mL 00 CONTINUOUS Medic al , Starting Branch [facility] 05/25/20 at 1115, Until Discontinu ed, Routine ketorolac 2020-0 2020- No 15mg 15 mg, Unive rs (TORADOL) 05-25 08-15 Slow IV ity of injection 01:45: 22:59 Push, Q6H, [place] 15 mg 00 :00 4 doses, Medical First dose Branch (after last modificati on) on Wed05/24/20 at 2045, Last dose on 05/25/20 at 1200, Routine
membership advisor approving Restricted medication : LUCAS DAVIS magnesium 2020-0 Yes 30mL 30 mL, Univer s hydroxide 8-14 Oral, ity of (MILK OF 15:00: DAILY, [place] MAGNESIA) 00 First dose Medi stephani 400 mg/5 mL (after Branch suspension last 30 mL modificati on) on Wed05/24/20 at 1000, Until Discontinu ed, Routine proMETHazin 2020-0 Yes 12.5mg 12.5 mg, Univers e 8- IV ity of (PHENERGAN) 14:42: Piggyback, [place] 12.5 mg in 19 Q6HPRN, Medica l NaCl 0.9% Starting Branch (NS) 50 mL Fri IV 05/24/20 at piggyback 0942, Until Discontinu ed, Routine, Nausea and Vomiting (N/V) levothyroxi 2020-0 Yes 125ug 125 mcg, U nivers ne 05-24 Oral, ity of (SYNTHROID) 11:00: QAM-0600, [place] tablet 125 00 First dose Med ical mcg on Wed Branch 05/24/20 at 0600, Until Discontinu ed escitalopra 2020-0 Yes 20mg 20 mg, [facility] ers m oxalate 05-24 Oral, QHS, ity of (LEXAPRO) 02:00: First dose [place] tablet 20 00 on Wed Medical mg 05/23/20 at Branch 2100, Until Discontinu ed, Routine Sliding 2020-0 Yes Subcutaneo [facility] ers Scale 8- us, TID ity of Insulin - 22:00: MEALS+HS, [place] 00 First dose Medical (NOVOLOG) + (after Branch Fsbg last Testing modificati on) on Wed05/23/20 at 1700, Until Discontinu ed, Routine enoxaparin 2020-0 Yes 40mg 40 mg, Unive rs (LOVENOX) - Subcutaneo ity of injection 17:45: us, Q24H, [place] 40 mg 00 First dose Medical on Wed Branch 05/23/20 at 1245, Until Discontinu ed, Routine famotidine 2020-0 2020- No 20mg 20 mg, [facility] ers (PEPCID 05-23 08-16 Slow IV ity of (PF)) 14:15: 15:22 Push, [place] injection 00 :53 Q12H, Medical 20 mg First dose Branch on Wed05/23/20 at 0915, Until Discontinu ed, Routine proMETHazin 2020-0 2020- No 25mg 25 mg, IV Univers e 05-23 08-14 Piggyback, ity of (PHENERGAN) 14:05: 14:42 Q6HPRN, [place] 25 mg in 13 :49 Starting Medical NaCl 0.9% Dee Branch (NS) 50 mL 05/23/20 at IV 0905, piggyback Until 05/24/20 at 0942, Routine, Nausea and Vomiting (N/V) ondansetron 2020-0 Yes 4mg 4 mg, Slow Univers (ZOFRAN 05-23 IV Push, ity of (PF)) 13:25: [place], [place] injection 4 49 Starting Medi stephani mg Dee Branch 05/23/20 at 0825, Until Discontinu ed, Routine, Nausea and Vomiting (N/V) NaCl 0.9% 2020-0 2020- No 1000mL at 125 Uni vers (NS) IV 05-23 08-15 mL/hr, IV ity of infusion 10:15: 16:10 Infusion, [place] 1,000 mL 00 :06 CONTINUOUS Medic al , Starting Branch Dee 05/23/20 at 0515, Until 05/25/20 at 1110, Routine morpHINE 2020-0 Yes 2mg 2 mg, Slow Uni vers injection 2 05-23 IV Push, ity of mg 10:01: [place], [place] 00 Starting Medical Dee Branch 05/23/20 at 0501, Until Discontinu ed, Routine, Pain (scale 7-10) acetaminoph 2020-0 Yes 650mg 650 mg, Un armando en 05-23 Oral, ity of (TYLENOL) 09:59: [place]PR[place], [place] tablet 650 03 Starting Medic al mg Dee Branch 05/23/20 at 0459, Until Discontinu ed, Routine, Pain (scale 1-3) piperacilli 2020-0 Yes 3.375g 3.375 g, Univers n-tazobacta 05-23 IV ity of m (ZOSYN) 08:00: Piggyback, [place] 3.375 g in 00 Q6H ABX, Medic al NaCl 0.9% First dose Bran ch (NS) 100 mL on Dee MINI-BAG 05/23/20 at 0300, Until Discontinu ed, 100 mL
R john for Anti-Infec tive: Empiric Therapy for Suspected Infection< br>Empiric Therapy Site: Abdominal< br>Duratio n of therapy: 72 hours morpHINE 2020-0 2020- No 4mg 4 mg, Slow Un armando injection 4 05-23 IV Push, ity of mg 07:00: 08:16 ONCE, 1 [place] 00 :00 dose, Dee Medical 05/23/20 at Branch 0200, STAT NaCl 0.9% 2019-0 2020- No 1000mL at 125 Uni vers (NS) IV 05-23 mL/hr, IV ity of infusion 07:00: 10:04 Infusion, [place] 1,000 mL 00 :05 CONTINUOUS Medic al , Starting [facility] 05/23/20 at 0200, Until [facility] 05/23/20 at 0504, JEFERSON proMETHazin 2019-0 2020- No 12.5mg 12.5 mg, Univers e 05-23 IV ity of (PHENERGAN) 05:30: 04:53 Piggyback, [place] 12.5 mg in 00 :00 ONCE, 1 Medica l NaCl 0.9% dose, [facility] Branc h (NS) 50 mL 05/23/20 at piggyback 0030, 50 mL iohexol 2019-0 2020- No 120mL 120 mL, Unive rs (OMNIPAQUE 05-23 Intravenou it y of 350 05:05: 05:05 s, ONCE, 1 [place] BULK-150 00 :00 dose, Dee Medica l mL) 05/23/20 at [place] injection 0015, 120 mL Routine NaCl 0.9% 2019-0 2020- No 1000mL at 999 Uni vers (NS) bolus 05-23 mL/hr, ity of infusion 04:30: 04:53 1,000 mL, [place] 1,000 mL 00 :00 IV Medical Infusion, [place] ONCE, 1 dose, 05/22/20 at 2330, JEFERSON morpHINE 2020-0 2020- No 4mg 4 mg, Slow Un armando injection 4 05-23 IV Push, ity of mg 04:30: 04:54 ONCE, 1 [place] 00 :00 dose, [facility] Medical 05/22/20 at Branch 2330, STAT famotidine 2020-0 Yes [id number] 40mg Take 1 Tab [facility] (PEPCID) 40 8-10 by mouth [place] MG tablet 00:00: daily. of 00 Medicin e Insulin 2020-0 Yes INJECT 40 [facility] 8-10 UNITS INTO Colleg e (LEVEMIR 00:00: THE SKIN of FLEXTOUCH) 00 TWO TIMES Medi praneeth 100 UNIT/ML DAILY e SOPN famotidine 2020-0 Yes [id number] 40mg Take 1 Tab [facility] (PEPCID) 40 8-10 by mouth Danny ege MG tablet 00:00: daily. of 00 Medicin e Insulin 2020-0 Yes INJECT 40 [facility] 8-10 UNITS INTO Colleg e (LEVEMIR 00:00: THE SKIN of FLEXTOUCH) 00 TWO TIMES Medi praneeth 100 UNIT/ML DAILY e SOPN famotidine 2020-0 Yes [id number] 40mg Take 1 Tab [facility] (PEPCID) 40 8-10 by mouth Danny ege MG tablet 00:00: daily. of 00 Medicin e Insulin 2020-0 Yes INJECT 40 [facility] 8-10 UNITS INTO Colleg e (LEVEMIR 00:00: THE SKIN of FLEXTOUCH) 00 TWO TIMES Medi praneeth 100 UNIT/ML DAILY e SOPN Insulin 2020-0 Yes INJECT 40 [facility] 8-10 UNITS INTO Colleg e (LEVEMIR 00:00: THE SKIN of FLEXTOUCH) 00 TWO TIMES Medi praneeth 100 UNIT/ML DAILY e SOPN Insulin 2020-0 Yes INJECT 40 [facility] 8-10 UNITS INTO Colleg e (LEVEMIR 00:00: THE SKIN of FLEXTOUCH) 00 TWO TIMES Medi praneeth 100 UNIT/ML DAILY e SOPN Insulin 2020-0 Yes INJECT 40 [facility] 8-10 UNITS INTO Colleg e (LEVEMIR 00:00: THE SKIN of FLEXTOUCH) 00 TWO TIMES Medi praneeth 100 UNIT/ML DAILY e SOPN Insulin 2020-0 Yes INJECT 40 [facility] 8-10 UNITS INTO Colleg e (LEVEMIR 00:00: THE SKIN of FLEXTOUCH) 00 TWO TIMES Medi praneeth 100 UNIT/ML DAILY e SOPN Insulin 2020-0 Yes INJECT 40 [facility] 8-10 UNITS INTO Colleg e (LEVEMIR 00:00: THE SKIN of FLEXTOUCH) 00 TWO TIMES Medi praneeth 100 UNIT/ML DAILY e SOPN Insulin 2020-0 Yes INJECT 40 [facility] 8-10 UNITS INTO Colleg e (LEVEMIR 00:00: THE SKIN of FLEXTOUCH) 00 TWO TIMES Medi praneeth 100 UNIT/ML DAILY e SOPN Insulin 2020-0 Yes INJECT 40 [facility] 8-10 UNITS INTO Colleg e (LEVEMIR 00:00: THE SKIN of FLEXTOUCH) 00 TWO TIMES Medi praneeth 100 UNIT/ML DAILY e SOPN Insulin 2020-0 Yes INJECT 40 [facility] 8-10 UNITS INTO Colleg e (LEVEMIR 00:00: THE SKIN of FLEXTOUCH) 00 TWO TIMES Medi praneeth 100 UNIT/ML DAILY e SOPN Insulin 2020-0 Yes INJECT 40 [facility] 8-10 UNITS INTO Colleg e (LEVEMIR 00:00: THE SKIN of FLEXTOUCH) 00 TWO TIMES Medi praneeth 100 UNIT/ML DAILY e SOPN Insulin 2020-0 Yes INJECT 40 [facility] 8-10 UNITS INTO Colleg e (LEVEMIR 00:00: THE SKIN of FLEXTOUCH) 00 TWO TIMES Medi praneeth 100 UNIT/ML DAILY e SOPN nystatin 2020-0 Yes Nystop [facility] (MYCOSTATIN 8-04 100,000 Colle ge ) powder 00:00: unit/gram of 00 topical Medicin powder e nystatin 2020-0 2020- No Nystop [facility] (MYCOSTATIN 8-04 09-14 100,000 [facility] e[facility] ) powder 00:00: 00:00 unit/gram of 00 :00 topical Medicin powder e Diclofenac 2020-[id number] 2 g [facility] Sodium 1 % 7-01 onto the Colle ge GEL 00:00: skin as of 00 needed. Medicin e Diclofenac 2020-[id number] 2 g [facility] Sodium 1 % 7-01 onto the Colle ge GEL 00:00: skin as of 00 needed. Medicin e Diclofenac 2020-[id number] 2 g [facility] Sodium 1 % 7-01 onto the Colle ge GEL 00:00: skin as of 00 needed. Medicin e Diclofenac 2020-[id number] 2 g [facility] Sodium 1 % 7-01 onto the Colle ge GEL 00:00: skin as of 00 needed. Medicin e Diclofenac 2020-[id number] 2 g [facility] Sodium 1 % 7-01 onto the Colle ge GEL 00:00: skin as of 00 needed. Medicin e Diclofenac 2020-[id number] 2 g [facility] Sodium 1 % 7-01 onto the Colle ge GEL 00:00: skin as of 00 needed. Medicin e Diclofenac 2020-[id number] 2 g [facility] Sodium 1 % 7-01 onto the Colle ge GEL 00:00: skin as of 00 needed. Medicin e Diclofenac 2020-[id number] 2 g [facility] Sodium 1 % 7-01 onto the Colle ge GEL 00:00: skin as of 00 needed. Medicin e Diclofenac 2020-[id number] 2 g [facility] Sodium 1 % 7-01 onto the Colle ge GEL 00:00: skin as of 00 needed. Medicin e Diclofenac 2020-[id number] 2 g [facility] Sodium 1 % 7-01 onto the Colle ge GEL 00:00: skin as of 00 needed. Medicin e Diclofenac 2020-[id number] 2 g [facility] Sodium 1 % 7-01 onto the Colle ge GEL 00:00: skin as of 00 needed. Medicin e Diclofenac 2020-[id number] 2 g [facility] Sodium 1 % 7-01 onto the Colle ge GEL 00:00: skin as of 00 needed. Medicin e Diclofenac 2020-[id number] 2 g [facility] Sodium 1 % 7-01 onto the Colle ge GEL 00:00: skin as of 00 needed. Medicin e Diclofenac 2020-[id number] 2 g [facility] Sodium 1 % 7-01 onto the Colle ge GEL 00:00: skin as of 00 needed. Medicin e Diclofenac 2020-[id number] 2 g [facility] Sodium 1 % 7-01 onto the Colle ge GEL 00:00: skin as of 00 needed. Medicin e Diclofenac 2020-[id number] 2 g [facility] Sodium 1 % 7-01 onto the Colle ge GEL 00:00: skin as of 00 needed. Medicin e Diclofenac 2020-[id number] 2 g [facility] Sodium 1 % 7-01 onto the Colle ge GEL 00:00: skin as of 00 needed. Medicin e Diclofenac 2020-[id number] 2 g [facility] Sodium 1 % 7-01 onto the Colle ge GEL 00:00: skin as of 00 needed. Medicin e Diclofenac 2020-[id number] 2 g [facility] Sodium 1 % 7-01 onto the Colle ge GEL 00:00: skin as of 00 needed. Medicin e Diclofenac 2020-[id number] 2 g [facility] Sodium 1 % 7-01 onto the Colle ge GEL 00:00: skin as of 00 needed. Medicin e Diclofenac 2020-[id number] 2 g [facility] Sodium 1 % 7-01 onto the Colle ge GEL 00:00: skin as of 00 needed. Medicin e tramadol 2020-0 Yes TAKE 1 [facility] (ULTRAM) 50 6-17 TABLET BY Col lege MG tablet 00:00: MOUTH of 00 EVERY 6 Medicin HOURS e NEEDED FOR PAIN amoxicillin 2020-0 Yes TAKE 1 [facility] (AMOXIL) 6-17 CAPSULE BY Colle ge 500 mg 00:00: MOUTH 3 of capsule 00 TIMES A Medicin DAY WITH e FOOD UNTIL FINISHED chlorhexidi 2020-0 Yes PLEASE SEE [facility] 6-17 [facility] 00:[facility]: FOR of 0.12 % 00 DETAILED Medicin solution DIRECTIONS e tramadol 2020-0 Yes TAKE 1 [facility] (ULTRAM) 50 6-17 TABLET BY Col lege MG tablet 00:00: MOUTH of 00 EVERY 6 Medicin HOURS e NEEDED FOR PAIN amoxicillin 2020-0 Yes TAKE 1 [facility] (AMOXIL) 6-17 CAPSULE BY Colle ge 500 mg 00:00: MOUTH 3 of capsule 00 TIMES A Medicin DAY WITH e FOOD UNTIL FINISHED chlorhexidi 2020-0 Yes PLEASE SEE [facility] 6-17 [facility] (PERIDEX) 00:00: FOR of 0.12 % 00 DETAILED Medicin solution DIRECTIONS e tramadol 2020-0 Yes TAKE 1 [facility] (ULTRAM) 50 6-17 TABLET BY Col lege MG tablet 00:00: MOUTH of 00 EVERY 6 Medicin HOURS e NEEDED FOR PAIN amoxicillin 2020-0 Yes TAKE 1 [facility] (AMOXIL) 6-17 CAPSULE BY Colle ge 500 mg 00:00: MOUTH 3 of capsule 00 TIMES A Medicin DAY WITH e FOOD UNTIL FINISHED chlorhexidi 2020-0 Yes PLEASE SEE [facility] 03-27 [facility] (PERIDEX) 00:00: FOR of 0.12 % 00 DETAILED Medicin solution DIRECTIONS e tramadol 2020-0 Yes TAKE 1 [facility] (ULTRAM) 50 6-17 TABLET BY Col lege MG tablet 00:00: MOUTH of 00 EVERY 6 Medicin HOURS e NEEDED FOR PAIN tramadol 2020-0 Yes TAKE 1 [facility] (ULTRAM) 50 6-17 TABLET BY Col lege MG tablet 00:00: MOUTH of 00 EVERY 6 Medicin HOURS e NEEDED FOR PAIN tramadol 2020-0 Yes TAKE 1 [facility] (ULTRAM) 50 6-17 TABLET BY Col lege MG tablet 00:00: MOUTH of 00 EVERY 6 Medicin HOURS e NEEDED FOR PAIN tramadol 2020-0 Yes TAKE 1 [facility] (ULTRAM) 50 6-17 TABLET BY Col lege MG tablet 00:00: MOUTH of 00 EVERY 6 Medicin HOURS e NEEDED FOR PAIN tramadol 2020-0 Yes TAKE 1 [facility] (ULTRAM) 50 6-17 TABLET BY Col lege MG tablet 00:00: MOUTH of 00 EVERY 6 Medicin HOURS e NEEDED FOR PAIN tramadol 2020-0 Yes TAKE 1 [facility] (ULTRAM) 50 6-17 TABLET BY Col lege MG tablet 00:00: MOUTH of 00 EVERY 6 Medicin HOURS e NEEDED FOR PAIN tramadol 2020-0 Yes TAKE 1 [facility] (ULTRAM) 50 6-17 TABLET BY Col lege MG tablet 00:00: MOUTH of 00 EVERY 6 Medicin HOURS e NEEDED FOR PAIN amoxicillin 2019-0 2020- No TAKE 1 [place] cru[facility] (AMOXIL) 03-27 CAPSULE BY Danny ege 500 mg 00:00: 00:00 MOUTH 3 of capsule 00 :00 TIMES A Medicin DAY WITH e FOOD UNTIL FINISHED chlorhexidi 2020-0 2020- No PLEASE SEE [facility] 03-27 [facility] (PERIDEX) 00:00: 00:00 FOR of 0.12 % 00 :00 DETAILED Medicin solution DIRECTIONS e amoxicillin 2020-0 2020- No TAKE 1 [place] cruz[facility] (AMOXIL) 03-27 CAPSULE BY Danny ege 500 mg 00:00: 00:00 MOUTH 3 of capsule 00 :00 TIMES A Medicin DAY WITH e FOOD UNTIL FINISHED chlorhexidi 2020-0 2020- No PLEASE SEE [facility] 6-17 11-18 ATTACHED [facility] (PERIDEX) 00:00: 00:00 FOR of 0.12 % 00 :00 DETAILED Medicin solution DIRECTIONS e ELIQUIS 2020-0 Yes [facility] (APIXABAN 609 [facility] TABS) TABS 00:00: ty 00 Health promethazin 2020-0 Yes [id number] 12.5mg Take 1 Tab [facility] e 6-01 by mouth College (PHENERGAN) 00:00: every 8 of 12.5 MG 00 hours as Medicin tablet needed for e Nausea. promethazin 2020-0 Yes [id number] 12.5mg Take 1 Tab [facility] e 6-01 by mouth College (PHENERGAN) 00:00: every 8 of 12.5 MG 00 hours as Medicin tablet needed for e Nausea. promethazin 2020-0 2020- No [id number] 12.5mg Take 1 Tab [facility] e 6-10 19-14 by mouth College (PHENERGAN) 00:00: 00:00 every 8 of 12.5 MG 00 :00 hours as Medicin tablet needed for e Nausea. ferrous 2020-0 Yes ferrous [facility] sulfate 325 5-20 sulfate Col[facility] (65 Fe) MG 14:00: 325 mg (65 o f tablet 45 mg iron) Medicin tablet e ondansetron 2020-0 Yes ondansetro [facility] (ZOFRAN) 4 5-20 n HCl 4 mg Col lege MG tablet 14:00: tablet of 45 Medicin e ferrous 2020-0 Yes ferrous [facility] sulfate 325 5-20 sulfate Colle ge (65 Fe) MG 14:00: 325 mg (65 o f tablet 45 mg iron) Medicin tablet e ondansetron 2020-0 Yes ondansetro [facility] (ZOFRAN) 4 5-20 n HCl 4 mg Col lege MG tablet 14:00: tablet of 45 Medicin e ferrous 2020-0 Yes ferrous [facility] sulfate 325 5-20 sulfate Colle [facility] (65 Fe) MG 14:00: 325 mg (65 o f tablet 45 mg iron) Medicin tablet e ondansetron 2020-0 Yes ondansetro [facility] (ZOFRAN) 4 5-20 n HCl 4 mg Col lege MG tablet 14:00: tablet of 45 Medicin e ondansetron 2020-0 Yes ondansetro [facility] (ZOFRAN) 4 5-20 n HCl 4 mg Col [facility]ge MG tablet 14:00: tablet of 45 Medicin e carvedilol 2020-0 Yes [id number] 6.25mg Take 6.25 [facility] (COREG) 5-20 9105 mg by College 6.25 MG 13:59: mouth 2 of tablet 51 times Medicin daily e (with meals). atorvastati 2020-0 Yes 40mg Take 40 mg [facility] n (LIPITOR) 5-20 by mouth [facility] e[facility] 40 MG 13:59: daily. of tablet 51 Medicin e Ascorbic 2020-0 Yes Take by [facility] Acid 5-20 mouth. [facility] (VITAMIN C 13:59: of OR) 51 Medicin e carvedilol 2020-0 Yes [id number] 6.25mg Take 6.25 [facility] (COREG) 5-20 9105 mg by Ney 6.25 MG 13:59: mouth 2 of tablet 51 times Medicin daily e (with meals). atorvastati 2020-0 Yes 40mg Take 40 mg [facility] (LIPITOR) 5-20 by mouth Danny ege 40 MG 13:59: daily. of tablet 51 Medicin e Ascorbic 2020-0 Yes Take by [facility] Acid 5-20 mouth. Ney (VITAMIN C 13:59: of OR) 51 Medicin e carvedilol 2020-0 Yes [id number] 6.25mg Take 6.25 [facility] (COREG) 5-20 9105 mg by Ney 6.25 MG 13:59: mouth 2 of tablet 51 times Medicin daily e (with meals). atorvastati 2020-0 Yes 40mg Take 40 mg [facility] (LIPITOR) 5-20 by mouth [facility] 40 MG 13:59: daily. of tablet 51 Medicin e Ascorbic 2020-0 Yes Take by [facility] 5-20 mouth. [facility] (VITAMIN C 13:59: of OR) 51 Medicin e Apixaban 2020-0 Yes 2.5mg Take 2.5 [facility] 2.5 MG TABS 5-20 mg by [facility] 00:00: mouth two of 00 times Medicin daily. e Apixaban 2020-0 Yes 2.5mg Take 2.5 [facility] 2.5 MG TABS 5-20 mg by [facility] 00:00: mouth two of 00 times Medicin daily. e enoxaparin 2020-0 Yes [facility] 80 MG/0.8ML 5-20 [facility] injection 00:00: 00 Medicin e Apixaban 2020-0 Yes 2.5mg Take 2.5 [facility] 2.5 MG TABS 5-20 mg by [facility] 00:00: mouth two of 00 times Medicin daily. e enoxaparin 2020-0 Yes [facility] 80 MG/0.8ML 5-20 [facility] injection 00:00: 00 Medicin e Apixaban 2020-0 Yes 2.5mg Take 2.5 [facility] 2.5 MG TABS 5-20 mg by [facility] 00:00: mouth two of 00 times Medicin daily. e enoxaparin 2020-0 Yes [facility] 80 MG/0.8ML 5-20 [facility] injection 00:00: Medicin e Apixaban 2020-0 Yes 2.5mg Take 2.5 [facility] 2.5 MG TABS 5-20 mg by [facility] 00:00: mouth two of 00 times Medicin daily. e enoxaparin 2020-0 Yes [facility] 80 MG/0.8ML 5-20 [facility] injection 00:00: 00 Medicin e Apixaban 2020-0 Yes 2.5mg Take 2.5 [facility] 2.5 MG TABS 5-20 mg by [facility] 00:00: mouth two of 00 times Medicin daily. e Apixaban 2020-0 Yes 2.5mg Take 2.5 [facility] 2.5 MG TABS 5-20 mg by [facility] 00:00: mouth two of 00 times Medicin daily. e Apixaban 2020-0 Yes 2.5mg Take 2.5 [facility] 2.5 MG TABS 5-20 mg by [facility] 00:00: mouth two of 00 times Medicin daily. e Apixaban 2020-0 2020- No 2.5mg Take 2.5 [facility] cruzito 2.5 MG TABS 5-20 12-17 mg by [facility] e 00:00: 00:00 mouth two of 00 :00 times Medicin daily. e enoxaparin 2020-0 2020- No [facility] 80 MG/0.8ML 5-20 11-18 [facility] injection 00:00: 00:00 of 00 :00 Medicin e enoxaparin 2020-0 2020- No [facility] 80 MG/0.8ML 5-20 -18 [facility] injection 00:00: 00:00 of 00 :00 Medicin e escitalopra 2020-0 Yes 20mg Take 1 Tab [facility] (LEXAPRO) 19 by mouth [facility] 20 MG 00:00: daily. of tablet 00 Medicin e trazodone 2020-0 Yes [id number] Take [facility] (DESYREL) -19 [id number] half-table [facility] 50 MG 00:00: t to full of tablet 00 tablet as Medicin needed for e insomnia or anxiety escitalopra 2020-0 Yes 20mg Take 1 Tab [facility] (LEXAPRO) 19 by mouth [facility] 20 MG 00:00: daily. of tablet 00 Medicin e trazodone 2020-0 Yes [id number] Take [facility] (DESYREL) 19 [id number] half-table [facility] 50 MG 00:00: t to full of tablet 00 tablet as Medicin needed for e insomnia or anxiety trazodone 2020-0 Yes [id number] Take [facility] (DESYREL) -19 [id number] half-table [facility] 50 MG 00:00: t to full of tablet 00 tablet as Medicin needed for e insomnia or anxiety XIFAXAN 550 2020-0 Yes 550mg 550 mg 3 [facility] MG TABS 5-18 times [facility] 00:00: daily. of 00 Medicin e XIFAXAN 550 2020-0 Yes 550mg 550 mg 3 [facility] MG TABS 5-18 times [facility] 00:00: daily. of 00 Medicin e XIFAXAN 550 2020-0 Yes 550mg 550 mg 3 [facility] MG TABS 5-18 times [facility] 00:00: daily. of 00 Medicin e XIFAXAN 550 2020-0 Yes 550mg 550 mg 3 [facility] MG TABS 5-18 times [facility] 00:00: daily. of 00 Medicin e XIFAXAN 550 2020-0 Yes 550mg 550 mg 3 [facility] MG TABS 5-18 times [facility] 00:00: daily. of 00 Medicin e omeprazole 2020-0 2020- No 40mg Take 1 Cap [facility] (PRILOSEC) 18 -18 by mouth [facility] 40 MG 00:00: 04:59 daily for of capsule 00 :00 30 doses. Medicin e omeprazole 2020-0 2020- No 40mg Take 1 Cap [facility] (PRILOSEC) 5-18 06-18 by mouth [facility] 40 MG 00:00: 04:59 daily for of capsule 00 :00 30 doses. Medicin e Ascorbic 2020-0 Yes Take by [facility] 5-13 mouth. [facility] (VITAMIN C 19:18: of OR) 16 Medicin e ondansetron 2020-0 Yes ondansetro [facility] (ZOFRAN) 4 5-13 n HCl 4 mg [facility] MG tablet 19:18: tablet of 10 Medicin e ferrous 2020-0 Yes ferrous [facility] sulfate 325 5-13 sulfate [facility] (65 Fe) MG 19:18: 325 mg (65 o f tablet 04 mg iron) Medicin tablet e atorvastati 2020-0 Yes 40mg Take 40 mg [facility] n (LIPITOR) 5-13 by mouth [facility] 40 MG 19:18: daily. of tablet 03 Medicin e carvedilol 2020-0 Yes [id number] 6.25mg Take 6.25 [facility] (COREG) 5-13 9105 mg by [facility] 6.25 MG 19:18: mouth 2 of tablet 02 times Medicin daily e (with meals). carvedilol 2020-0 Yes [id number] 6.25mg Take 6.25 [facility] (COREG) 5-13 9105 mg by [facility] 6.25 MG 16:02: mouth 2 of tablet 53 times Medicin daily e (with meals). atorvastati 2020-0 Yes 40mg Take 40 mg [facility] (LIPITOR) 5-13 by mouth [facility] 40 MG 16:02: daily. of tablet 53 Medicin e ferrous 2020-0 Yes ferrous [facility] sulfate 325 5-13 sulfate [facility] (65 Fe) MG 16:02: 325 mg (65 o f tablet 53 mg iron) Medicin tablet e ondansetron 2020-0 Yes ondansetro [facility] (ZOFRAN) 4 5-13 n HCl 4 mg [facility] MG tablet 16:02: tablet of 53 Medicin e Ascorbic 2020-0 Yes Take by [facility] 5-13 mouth. [facility] (VITAMIN C 16:02: of OR) 53 Medicin e famotidine 2020-0 Yes 40mg Take 1 Tab [facility] (PEPCID) 40 5-13 by mouth [facility] MG tablet 00:00: daily. of 00 Medicin e famotidine 2020-0 Yes 40mg Take 1 Tab [facility] (PEPCID) 40 5-13 by mouth [facility] MG tablet 00:00: daily. of 00 Medicin e famotidine 2020-0 Yes 40mg Take 1 Tab [facility] (PEPCID) 40 5-13 by mouth [facility] MG tablet 00:00: daily. of 00 Medicin e famotidine 2020-0 Yes 40mg Take 1 Tab [facility] (PEPCID) 40 5-13 by mouth [facility] MG tablet 00:00: daily. of 00 Medicin e dicyclomine 2020-0 Yes [facility] (BENTYL) 10 5-10 [facility] MG capsule 00:00: of 00 Medicin e dicyclomine 2020-0 Yes [facility] (BENTYL) 10 5-10 [facility] MG capsule 00:00: of 00 Medicin e dicyclomine 2020-0 Yes [facility] (BENTYL) 10 5-10 [facility] MG capsule 00:00: of 00 Medicin e XIFAXAN 550 2020-0 Yes [facility] MG TABS 5-10 [facility] 00:00: of 00 Medicin e carvedilol 2020-0 Yes [id number] 6.25mg Take 6.25 [facility] (COREG) 5-05 9105 mg by [facility] 6.25 MG 16:48: mouth 2 of tablet 30 times Medicin daily e (with meals). atorvastati 2020-0 Yes 40mg Take 40 mg [facility] n (LIPITOR) 5-05 by mouth [facility] 40 MG 16:48: daily. of tablet 30 Medicin e ferrous 2020-0 Yes ferrous [facility] sulfate 325 5-05 sulfate [facility] (65 Fe) MG 16:48: 325 mg (65 o f tablet 30 mg iron) Medicin tablet e ondansetron 2020-0 Yes ondansetro [facility] (ZOFRAN) 4 5-05 n HCl 4 mg [facility] MG tablet 16:48: tablet of 30 Medicin e Ascorbic 2020-0 Yes Take by [facility] Acid 5-05 mouth. [facility] (VITAMIN C 16:48: of OR) 30 Medicin e sucralfate 2020-0 2020- No sucralfate [facility] (CARAFATE) 02-12 1 gram [facility] e 1 g tablet 16:47: 00:00 tablet of 48 :00 Medicin e nystatin 2019- No Nystop [facility] (NYSTOP) 02-12 100,000 [facility] powder 16:47: 00:00 unit/gram of 45 :00 topical Medicin powder e triamcinolo 2019- No [id number] [facility] ne 02-12- [facility] acetonide 16:30: 04:29 of (KENALOG-40 00 :00 Medicin ) 40 mg/mL e 40 mg, lidocaine 1% (10 mg/mL) 2 mL promethazin Yes [id number] 12.5mg Take 1 Tab [facility] e 4-30 by mouth [facility] (PHENERGAN) 00:00: every 6 of 12.5 MG 00 hours as Medicin tablet needed for e Nausea. promethazin Yes [id number] 12.5mg Take 1 Tab [facility] 4-30 by mouth [facility] (PHENERGAN) 00:00: every 6 of 12.5 MG 00 hours as Medicin tablet needed for e Nausea. promethazin 2019-0 Yes [id number] 12.5mg Take 1 Tab [facility] e 4-30 by mouth [facility] (PHENERGAN) 00:00: every 6 of 12.5 MG 00 hours as Medicin tablet needed for e Nausea. promethazin 0 Yes [id number] 12.5mg Take 1 Tab [facility] 4-30 by mouth [facility] (PHENERGAN) 00:00: every 6 of 12.5 MG 00 hours as Medicin tablet needed for e Nausea. ursodioL 2020- No 500mg Q.5D Take 1 [facility] 500 MG 00:00: 00:00 (500 mg Medical tablet 00 :00 total) by [facility] mouth 2 (two) times daily. ursodioL 2020- No 500mg Q.5D Take 1 [facility] (ACTIGALL[facility] 02-04 03-18 tablet [facility] 500 MG 00:00: 00:00 (500 mg Medical tablet 00 :00 total) by [facility] mouth 2 (two) times daily. ursodioL 2020- No 500mg Q.5D Take 1 [facility] (ACTIGALL[facility] 02-04-18 [facility] 500 MG 00:00: 00:00 (500 mg Medical tablet 00 :00 total) by [facility] mouth 2 (two) times daily. ursodioL 2019-2020- No 500mg Q.5D Take 1 [facility] (ACTIGALL[facility] 02-04-18 [facility] 500 MG 00:00: 00:00 (500 mg Medical tablet 00 :00 total) by [facility] mouth 2 (two) times daily. ondansetron 2019-0 Yes [id number] 4mg Take 1 Tab [facility] (ZOFRAN-ODT 4-14 by mouth [facility] ) 4 mg 00:00: every 8 of disintegrat 00 hours as Medi praneeth ing tablet needed for e Nausea. ondansetron Yes [id number] 4mg Take 1 Tab [facility] (ZOFRAN-ODT 4-14 by mouth [facility] ) 4 mg 00:00: every 8 of disintegrat 00 hours as Medi praneeth ing tablet needed for e Nausea. ondansetron Yes [id number] 4mg Take 1 Tab [facility] (ZOFRAN-ODT 4-14 by mouth [facility] ) 4 mg 00:00: every 8 of disintegrat 00 hours as Medi praneeth ing tablet needed for e Nausea. ondansetron 2019- Yes [id number] 4mg Take 1 Tab [facility] (ZOFRAN-ODT 4-14 by mouth [facility] ) 4 mg 00:00: every 8 of disintegrat 00 hours as Medi praneeth ing tablet needed for e Nausea. ondansetron 2019-0 Yes [id number] 4mg Take 1 Tab [facility] (ZOFRAN-ODT 4-14 by mouth [facility] ) 4 mg 00:00: every 8 of disintegrat 00 hours as Medi praneeth ing tablet needed for e Nausea. ondansetron 2019-0 Yes [id number] 4mg Take 1 Tab [facility] (ZOFRAN-ODT 4-14 by mouth [facility] ) 4 mg 00:00: every 8 of disintegrat 00 hours as Medi praneeth ing tablet needed for e Nausea. ondansetron 2020- No [id number] 4mg Take 1 Tab [facility] (ZOFRAN-ODT 4-14 09-14 by mouth [facility] ) 4 mg 00:00: 00:00 every 8 of disintegrat 00 :00 hours as Medi praneeth ing tablet needed for e Nausea. PILOCARPINE 2020-0 Yes [facility] HCL, ORAL, 4-01 [facility] 5 MG TABS 00:00: of 00 Medicin e PILOCARPINE 2020-0 Yes [facility] HCL, ORAL, 4- [facility] 5 MG TABS 00:00: of 00 Medicin e PILOCARPINE 2020-0 Yes [facility] HCL, ORAL, 4- [facility] 5 MG TABS 00:00: of 00 Medicin e PILOCARPINE 2020-0 Yes [facility] HCL, ORAL, 4- [facility] 5 MG TABS 00:00: of 00 Medicin e PILOCARPINE 2020-0 Yes [facility] HCL, ORAL, 4- [facility] 5 MG TABS 00:00: of 00 Medicin e PILOCARPINE 2020-0 Yes [facility] HCL, ORAL, 4- [facility] 5 MG TABS 00:00: of 00 Medicin e PILOCARPINE 2020-0 2020- No [facility] HCL, ORAL, 4- 11-18 [facility] 5 MG TABS 00:00: 00:00 of 00 :00 Medicin e PILOCARPINE 2020-0 2020- No [facility] HCL, ORAL, 4- 11-18 [facility] 5 MG TABS 00:00: 00:00 of 00 :00 Medicin e tramadol 2020-0 Yes TAKE 1 [facility] (ULTRAM) 50 3-30 TABLET BY [facility] MG tablet 00:00: MOUTH of 00 EVERY 6 Medicin HOURS e NEEDED FOR PAIN tramadol 2020-0 Yes TAKE 1 [facility] (ULTRAM) 50 3-30 TABLET BY [facility] MG tablet 00:00: MOUTH of 00 EVERY 6 Medicin HOURS e NEEDED FOR PAIN tramadol 2020-0 Yes TAKE 1 [facility] (ULTRAM) 50 3-30 TABLET BY [facility] MG tablet 00:00: MOUTH of 00 EVERY 6 Medicin HOURS e NEEDED FOR PAIN tramadol 2020-0 Yes TAKE 1 [facility] (ULTRAM) 50 3-30 TABLET BY [facility] MG tablet 00:00: MOUTH of 00 EVERY 6 Medicin HOURS e NEEDED FOR PAIN tramadol 2020-0 Yes TAKE 1 [facility] (ULTRAM) 50 3-30 TABLET BY [facility] MG tablet 00:00: MOUTH of 00 EVERY 6 Medicin HOURS e NEEDED FOR PAIN trazodone 2020-0 Yes [id number] Take [facility] (DESYREL) 01-04 [id number] half-table [facility] 50 MG 00:00: t to full of tablet 00 tablet as Medicin needed for e insomnia or anxiety trazodone 2019-0 Yes [id number] Take [facility] (DESYREL) 01-04 [id number] half-table [facility] 50 MG 00:00: t to full of tablet 00 tablet as Medicin needed for e insomnia or anxiety trazodone 2019-0 Yes [id number] Take [facility] (DESYREL) 01-04 [id number] half-table [facility] 50 MG 00:00: t to full of tablet 00 tablet as Medicin needed for e insomnia or anxiety pantoprazol 2019-0 Yes [facility] e 01-02 [facility] (PROTONIX) 00:00: of 40 MG 00 Medicin tablet e Insulin 2020- No 40U Inject 40 [facility] Detemir 3-18 06-17 Units into [facility]le [facility] (LEVEMIR 00:00: 04:59 the skin of FLEXTOUCH) 00 :00 two times Medi praneeth 100 UNIT/ML daily for e SOPN 90 days. Insulin 2019- 2020- No 40U Inject 40 [facility] Detemir 3-18 06-17 Units into [facility] (LEVEMIR 00:00: 04:59 the skin of FLEXTOUCH) 00 :00 two times Medi praneeth 100 UNIT/ML daily for e SOPN 90 days. Insulin 2019-0 2020- No 40U Inject 40 [facility] Detemir 3-18 06-17 Units into [facility] (LEVEMIR 00:00: 04:59 the skin of FLEXTOUCH) 00 :00 two times Medi praneeth 100 UNIT/ML daily for e SOPN 90 days. Insulin 2019-0 2020- No 40U Inject 40 [facility] Detemir 3-18 06-17 Units into [facility] (LEVEMIR 00:00: 04:59 the skin of FLEXTOUCH) 00 :00 two times Medi praneeth 100 UNIT/ML daily for e SOPN 90 days. Insulin 2019-0 2020- No 40U Inject 40 [facility] Detemir 3-18 06-17 Units into [facility] (LEVEMIR 00:00: 04:59 the skin of FLEXTOUCH) 00 :00 two times Medi praneeth 100 UNIT/ML daily for e SOPN 90 days. Insulin Pen 2020-0 Yes Use with [facility] Needle 3-17 insulin 5x [facility] (LITETOUCH 00:00: daily; Dx of PEN E11.65; Medicin NEEDLES) Please e 32G X 4 MM make sushant MISC with Dr. Stone Insulin Pen 2020-0 Yes Use with [facility] Needle 3-17 insulin 5x [facility] (LITETOUCH 00:00: daily; Dx of PEN E11.65; Medicin NEEDLES) Please e 32G X 4 MM make sushant MISC with Dr. Stone Insulin Pen 2020-0 Yes Use with [facility] Needle 3-17 insulin 5x [facility] (LITETOUCH 00:00: daily; Dx of PEN E11.65; Medicin NEEDLES) Please e 32G X 4 MM make sushant MISC with Dr. Stone Insulin Pen 2020-0 Yes Use with [facility] Needle 3-17 insulin 5x [facility] (LITETOUCH 00:00: daily; Dx of PEN E11.65; Medicin NEEDLES) Please e 32G X 4 MM make sushant MISC with Dr. Stone Insulin Pen 2020-0 Yes Use with [facility] Needle 3-17 insulin 5x [facility] (LITETOUCH 00:00: daily; Dx of PEN E11.65; Medicin NEEDLES) Please e 32G X 4 MM make sushant MISC with Dr. Stone Insulin Pen 2020-0 Yes Use with [facility] Needle 3-17 insulin 5x [facility] (LITETOUCH 00:00: daily; Dx of PEN E11.65; Medicin NEEDLES) Please e 32G X 4 MM make sushant MISC with Dr. Stone Insulin Pen 2020-0 2020- No Use with [facility] Needle 3-17 09-14 insulin 5x [facility] e (LITETOUCH 00:00: 00:00 daily; Dx o f PEN 00 : E11.65; Medicin NEEDLES) Please e 32G X 4 MM make sushant MISC with Dr. Stone nystatin 2020-0 Yes Nystop [facility] (MYCOSTATIN 2-19 100,000 [facility] ) powder 00:00: unit/gram of 00 topical Medicin powder e sucralfate 2020-0 Yes sucralfate [facility] (CARAFATE) 2-19 1 gram [facility] 1 g tablet 00:00: tablet of 00 Medicin e sucralfate 2020-0 Yes sucralfate [facility] (CARAFATE) 2-19 1 gram [facility] 1 g tablet 00:00: tablet of 00 Medicin e sucralfate 2020-0 Yes sucralfate [facility] (CARAFATE) 2-19 1 gram [facility] 1 g tablet 00:00: tablet of 00 Medicin e sucralfate 2020-0 Yes sucralfate [facility] (CARAFATE) 2-19 1 gram [facility] 1 g tablet 00:00: tablet of 00 Medicin e sucralfate 2020-0 Yes sucralfate [facility] (CARAFATE) 2-19 1 gram [facility] 1 g tablet 00:00: tablet of 00 Medicin e sucralfate 2020-0 Yes sucralfate [facility] (CARAFATE) 2-19 1 gram [facility] 1 g tablet 00:00: tablet of 00 Medicin e sucralfate 2020-0 Yes sucralfate [facility] (CARAFATE) 2-19 1 gram [facility] 1 g tablet 00:00: tablet of 00 Medicin e sucralfate 2020-0 2020- No sucralfate [facility] (CARAFATE) 2-19 12-17 1 gram [facility] e 1 g tablet 00:00: 00:00 tablet of 00 :00 Medicin e Ascorbic 2020-0 Yes Take by [facility] 2-18 mouth. [facility] (VITAMIN C 15:30: of OR) 41 Medicin e Ascorbic 2020-0 Yes Take by [facility] 2-18 mouth. College (VITAMIN C 15:30: of OR) 41 Medicin e carvedilol 2020-0 Yes [id number] 6.25mg Take 6.25 [facility] (COREG) 2-18 9105 mg by [facility] 6.25 MG 15:29: mouth 2 of tablet 19 times Medicin daily e (with meals). atorvastati 2020-0 Yes 40mg Take 40 mg [facility] (LIPITOR) 2-18 by mouth [facility] 40 MG 15:29: daily. of tablet 19 Medicin e ferrous 2020-0 Yes ferrous [facility] sulfate 325 2-18 sulfate [facility] (65 Fe) MG 15:29: 325 mg (65 o f tablet 19 mg iron) Medicin tablet e ondansetron 2020-0 Yes ondansetro [facility] (ZOFRAN) 4 2-18 n HCl 4 mg [facility] MG tablet 15:29: tablet of 19 Medicin e carvedilol 2020-0 Yes [id number] 6.25mg Take 6.25 [facility] (COREG) 2-18 9105 mg by [facility] 6.25 MG 15:29: mouth 2 of tablet 19 times Medicin daily e (with meals). atorvastati 2019-0 Yes 40mg Take 40 mg [facility] (LIPITOR) 2-18 by mouth [facility] 40 MG 15:29: daily. of tablet 19 Medicin e ferrous 2020-0 Yes ferrous [facility] sulfate 325 2-18 sulfate [facility] (65 Fe) MG 15:29: 325 mg (65 o f tablet 19 mg iron) Medicin tablet e ondansetron 2019-0 Yes ondansetro [facility] (ZOFRAN) 4 2-18 n HCl 4 mg [facility] MG tablet 15:29: tablet of 19 Medicin e Diclofenac 2019-[address] [facility] Sodium 1 % 2-18 onto the [facility] GEL 00:00: skin. of 00 Medicin e Diclofenac 0 2020- No [id number] 1% Place 1 [facility] Sodium 1 % 2-18 03-20 Percent [facility] GEL 00:00: 04:59 onto the of 00 :00 skin 2 Medicin times e daily as needed for up to 30 days. Diclofenac 2019-0 2019- No [id number] 1% Place 1 [facility] Sodium 1 % 2-18 03-20 Percent [facility] GEL 00:00: 04:59 onto the of 00 :00 skin 2 Medicin times e daily as needed for up to 30 days. rifAXIMin 2019- 2020- No Hepatic 550mg Q.5D Take [address] (XIFAXAN) 11-21 encephalopa tablet [facility] 550 mg Tab 00:00: 00:00 [facility] (HCC) (550 mg Medical 00 :00 total) by [facility] mouth 2 (two) times daily. rifAXIMin 2019- No Hepatic 550mg Q.5D Take [address] (XIFAXAN) 11-21 encephalopa tablet [facility] 550 mg Tab 00:00: 00:00 [facility] (HCC) (550 mg Medical 00 :00 total) by [facility] mouth 2 (two) times daily. hyoscyamine 2020-0 2020- No hyoscyamin [facility] (LEVBID) 11-14-04 e ER 0.375 [facility] 0.375 MG CR 20:14: 00:00 mg of tablet 15 :00 tablet,ext Medicin ended e release,12 hr hyoscyamine 2020-0 2020- No hyoscyamin [facility] (LEVBID) 11-14-04 e ER 0.375 [facility] 0.375 MG CR 20:14: 00:00 mg of tablet 15 :00 tablet,ext Medicin ended e release,12 hr hyoscyamine 2020-0 2020- No hyoscyamin [facility] (LEVBID) 11-14-04 e ER 0.375 [facility] 0.375 MG CR 20:14: 00:00 mg of tablet 15 :00 tablet,ext Medicin ended e release,12 hr carvedilol 2019-0 Yes [id number] 6.25mg Take 6.25 [facility] (COREG) 11-14 9105 mg by [facility] 6.25 MG 19:04: mouth 2 of tablet 06 times Medicin daily e (with meals). ONDANSETRON 2019-0 Yes 4mg Take 4 mg [facility] OR 2-04 by mouth. [facility] 19:04: of 06 Medicin e atorvastati 2019-0 Yes 40mg Take 40 mg [facility] (LIPITOR) 2-04 by mouth [facility] 40 MG 19:04: daily. of tablet 06 Medicin e ferrous 2019-0 Yes ferrous [facility] sulfate 325 -04 sulfate [facility] (65 Fe) MG 19:04: 325 mg (65 o f tablet 06 mg iron) Medicin tablet e hyoscyamine 2019-0 Yes hyoscyamin [facility] (LEVBID) 2-04 e ER 0.375 [facility] 0.375 MG CR 19:04: mg of tablet 06 tablet,ext Medicin ended e release,12 hr nystatin 2019-0 Yes Nystop [facility] (NYSTOP) 2-04 100,000 [facility] powder 19:04: unit/gram of 06 topical Medicin powder e ondansetron 2019-0 Yes ondansetro [facility] (ZOFRAN) 4 2-04 n HCl 4 mg [facility] MG tablet 19:04: tablet of 06 Medicin e sucralfate 2019-0 Yes sucralfate [facility] (CARAFATE) 2-04 1 gram [facility] 1 g tablet 19:04: tablet of 06 Medicin e carvedilol 2020-0 Yes [id number] 6.25mg Take 6.25 [facility] (COREG) 2-04 9105 mg by [facility] 6.25 MG 19:04: mouth 2 of tablet 06 times Medicin daily e (with meals). ONDANSETRON 2020-0 Yes 4mg Take 4 mg [facility] OR 2-04 by mouth. [facility] 19:04: of 06 Medicin e atorvastati 2020-0 Yes 40mg Take 40 mg [facility] (LIPITOR) 2-04 by mouth [facility] 40 MG 19:04: daily. of tablet 06 Medicin e ferrous 2020-0 Yes ferrous [facility] sulfate 325 2-04 sulfate [facility] (65 Fe) MG 19:04: 325 mg (65 o f tablet 06 mg iron) Medicin tablet e nystatin 2020-0 Yes Nystop [facility] (NYSTOP) 2-04 100,000 [facility] powder 19:04: unit/gram of 06 topical Medicin powder e ondansetron 2020-0 Yes ondansetro [facility] (ZOFRAN) 4 2-04 n HCl 4 mg [facility] MG tablet 19:04: tablet of 06 Medicin e sucralfate 2020-0 Yes sucralfate [facility] (CARAFATE) 2-04 1 gram [facility] 1 g tablet 19:04: tablet of 06 Medicin e carvedilol 2020-0 Yes [id number] 6.25mg Take 6.25 [facility] (COREG) 2-04 9105 mg by [facility] 6.25 MG 19:04: mouth 2 of tablet 06 times Medicin daily e (with meals). ONDANSETRON 2020-0 Yes 4mg Take 4 mg [facility] 2-04 by mouth. [facility] 19:04: of 06 Medicin e atorvastati 2020-0 Yes 40mg Take 40 mg [facility] (LIPITOR) 2-04 by mouth [facility] 40 MG 19:04: daily. of tablet 06 Medicin e ferrous 2020-0 Yes ferrous [facility] sulfate 325 2-04 sulfate [facility] (65 Fe) MG 19:04: 325 mg (65 o f tablet 06 mg iron) Medicin tablet e nystatin 2020-0 Yes Nystop [facility] (NYSTOP) 2-04 100,000 [facility] powder 19:04: unit/gram of 06 topical Medicin powder e ondansetron 2020-0 Yes ondansetro [facility] (ZOFRAN) 4 2-04 n HCl 4 mg [facility] MG tablet 19:04: tablet of 06 Medicin e sucralfate 2020-0 Yes sucralfate [facility] (CARAFATE) 2-04 1 gram [facility] 1 g tablet 19:04: tablet of 06 Medicin e ONDANSETRON 2020-0 Yes 4mg Take 4 mg [facility] [place] 2-04 by mouth. [facility] 19:04: of 06 Medicin e nystatin 2020-0 Yes Nystop [facility] (NYSTOP) 2- 100,000 [facility] powder 19:04: unit/gram of 06 topical Medicin powder e sucralfate 2020-0 Yes sucralfate [facility] (CARAFATE) 2-04 1 gram [facility] 1 g tablet 19:04: tablet of 06 Medicin e ONDANSETRON 2020-0 Yes 4mg Take 4 mg [facility] [place] 2-04 by mouth. [facility] 19:04: of 06 Medicin e nystatin 2020-0 Yes Nystop [facility] (NYSTOP) 2- 100,000 [facility] powder 19:04: unit/gram of 06 topical Medicin powder e sucralfate 2020-0 Yes sucralfate [facility] (CARAFATE) 2-04 1 gram [facility] 1 g tablet 19:04: tablet of 06 Medicin e trazodone 2020-0 2020- No [id number] 50mg Take 50 mg [facility] (DESYREL) -01 10- [id number] by mouth [facility] 50 MG 16:05: 00:00 nightly as of tablet 03 :00 needed. Medicin e trazodone 2020-0 2020- No [id number] 50mg Take 50 mg [facility] (DESYREL) 11-14- [id number] by mouth [facility] 50 MG 16:05: 00:00 nightly as of tablet 03 :00 needed. Medicin e pioglitazon 2020-0 2020- No pioglitazo [facility] (ACTOS) 11-14-04 ne 30 mg [facility] 30 MG 15:34: 00:00 tablet of tablet 41 :00 Medicin e pioglitazon 2019-0 2020- No pioglitazo [facility] (ACTOS) - 02-04 ne 30 mg [facility] 30 MG 15:34: 00:00 tablet of tablet 41 :00 Medicin e Exenatide 2019- No [place] [facility] (BYETTA 10 2-04 02-04 mcg/dose(2 [facility] MCG PEN) 10 15:34: 00:00 50 of MCG/0.04ML 23 :00 mcg/mL)2.4 Med icin SOPN mL e subcutaneo us pen injector Exenatide 2019- No [place] [facility] (BYETTA 10 2- 02-04 mcg/dose(2 [facility] MCG PEN) 10 15:34: 00:00 50 of MCG/0.04ML 23 :00 mcg/mL)2.4 Med icin SOPN mL e subcutaneo us pen injector benzonatate 2019- No benzonatat [facility] (TESSALON) 11-14-04 e 200 mg [facility] 200 mg 15:34: 00:00 capsule of capsule 17 :00 Medicin e benzonatate 2019- No benzonatat [facility] (TESSALON) 11-14-04 e 200 mg [facility] 200 mg 15:34: 00:00 capsule of capsule 17 :00 Medicin e ascorbic 2019-0 2020- No 500mg Take 500 [facility] acid 500 MG 2-01 10-04 mg by [facility] e tablet 15:34: 00:00 mouth of 10 :00 daily. Medicin e ascorbic 2019-0 2020- No 500mg Take 500 [facility] acid 500 MG 2- 02-04 mg by [facility] e tablet 15:34: 00:00 mouth of 10 :00 daily. Medicin e albuterol 2019-0 2020- No ProAir HFA [facility] (PROAIR 11-[address] [place] [address]) 108 15:34: 00:00 mcg/actuat of (90 base) 04 :00 ion Medicin mcg/act aerosol e inhaler inhaler albuterol 2019-0 2020- No ProAir HFA [facility] (PROAIR 11-[address] [place] [address]) 108 15:34: 00:00 mcg/actuat of (90 base) 04 :00 ion Medicin mcg/act aerosol e inhaler inhaler escitalopra 2020-0 Yes 20mg Take 1 Tab Yon m (LEXAPRO) 2-04 by mouth Danny [facility] 20 MG 00:00: daily. of tablet 00 Medicin e trazodone 2020-0 Yes [id number] Take B aylor (DESYREL) 2-04 [id number] half-table [facility] 50 MG 00:00: t to full of tablet 00 tablet as Medicin needed for e insomnia. escitalopra 2020-0 Yes 20mg Take 1 Tab Yon m (LEXAPRO) 2-04 by mouth [facility] 20 MG 00:00: daily. of tablet 00 Medicin e trazodone 2020-0 Yes [id number] Take B aylor (DESYREL) 2- [id number] half-table [facility] 50 MG 00:00: t to full of tablet 00 tablet as Medicin needed for e insomnia. escitalopra 2020-0 Yes 20mg Take 1 Tab Yon m (LEXAPRO) 2-04 by mouth [facility] 20 MG 00:00: daily. of tablet 00 Medicin e trazodone 2020-0 Yes [id number] Take B aylor (DESYREL) 2- [id number] half-table [facility] 50 MG 00:00: t to full of tablet 00 tablet as Medicin needed for e insomnia. escitalopra 2020-0 Yes 20mg Take 1 Tab Banner m (LEXAPRO) 2-04 by mouth [facility] 20 MG 00:00: daily. of tablet 00 Medicin e trazodone 2020-0 Yes [id number] Take B aylor (DESYREL) 2- [id number] half-table [facility] 50 MG 00:00: t to full of tablet 00 tablet as Medicin needed for e insomnia. escitalopra 2020-0 Yes 20mg Take 1 Tab Banner m (LEXAPRO) 2-04 by mouth [facility] 20 MG 00:00: daily. of tablet 00 Medicin e trazodone 2020-0 Yes [id number] Take B aylor (DESYREL) 2-04 [id number] half-table [facility] 50 MG 00:00: t to full of tablet 00 tablet as Medicin needed for e insomnia. escitalopra 2020-0 Yes 20mg Take 1 Tab Banner m (LEXAPRO) 2-04 by mouth [facility] 20 MG 00:00: daily. of tablet 00 Medicin e escitalopra 2020-0 Yes 20mg Take 1 Tab [facility] (LEXAPRO) 2-04 by mouth [facility] 20 MG 00:00: daily. of tablet 00 Medicin e escitalopra 2020-0 Yes 20mg Take 1 Tab [facility] (LEXAPRO) 2-04 by mouth [facility] 20 MG 00:00: daily. of tablet 00 Medicin e famotidine 2020-0 2020- No 20mg Take 1 Tab [facility] (PEPCID) 20 2-04 05-05 by mouth [facility] MG tablet 00:00: 04:59 daily for of 00 :00 90 days. Medicin e dicyclomine 2020-0 2020- No 10mg Take 1 Cap [facility] (BENTYL) 10 2- 05-05 by mouth 2 [facility] MG capsule 00:00: 04:59 times of 00 :00 daily as Medicin needed e (abdominal pain/cramp ing) for up to 90 days. famotidine 2020-0 2020- No 20mg Take 1 Tab [facility] (PEPCID) 20 2- 05-05 by mouth [facility] MG tablet 00:00: 04:59 daily for of 00 :00 90 days. Medicin e dicyclomine 2020-0 2020- No 10mg Take 1 Cap [facility] (BENTYL) 10 2- 05-05 by mouth 2 [facility] MG capsule 00:00: 04:59 times of 00 :00 daily as Medicin needed e (abdominal pain/cramp ing) for up to 90 days. famotidine 2020-0 2020- No 20mg Take 1 Tab [facility] (PEPCID) 20 2- 05-05 by mouth [facility] MG tablet 00:00: 04:59 daily for of 00 :00 90 days. Medicin e dicyclomine 2020-0 2020- No 10mg Take 1 Cap [facility] (BENTYL) 10 2-04 05-05 by mouth 2 [facility] MG capsule 00:00: 04:59 times of 00 :00 daily as Medicin needed e (abdominal pain/cramp ing) for up to 90 days. famotidine 2020-0 2020- No 20mg Take 1 Tab [facility] (PEPCID) 20 2- 05-05 by mouth [facility] MG tablet 00:00: 04:59 daily for of 00 :00 90 days. Medicin e dicyclomine 2019-0 2020- No 10mg Take 1 Cap [facility] (BENTYL) 10 2- 05-05 by mouth 2 [facility] MG capsule 00:00: 04:59 times of 00 :00 daily as Medicin needed e (abdominal pain/cramp ing) for up to 90 days. promethazin 2020-0 Yes [id number] 12.5mg Take 1 Tab [facility] 2-03 by mouth [facility] (PHENERGAN) 00:00: every 6 of 12.5 MG 00 hours as Medicin tablet needed for e Nausea. promethazin 2019-0 Yes [id number] 12.5mg Take 1 Tab [facility] 2-03 by mouth [facility] (PHENERGAN) 00:00: every 6 of 12.5 MG 00 hours as Medicin tablet needed for e Nausea. promethazin 2020-0 Yes [id number] 12.5mg Take 1 Tab [facility] 2-03 by mouth [facility] (PHENERGAN) 00:00: every 6 of 12.5 MG 00 hours as Medicin tablet needed for e Nausea. promethazin 2020-0 Yes [id number] 12.5mg Take 1 Tab [facility] 2-03 by mouth [facility] (PHENERGAN) 00:00: every 6 of 12.5 MG 00 hours as Medicin tablet needed for e Nausea. promethazin 2020-0 Yes [id number] 12.5mg Take 1 Tab [facility] 2-03 by mouth [facility] (PHENERGAN) 00:00: every 6 of 12.5 MG 00 hours as Medicin tablet needed for e Nausea. albuterol 2019-0 Yes ProAir HFA [facility] 108 (11-10 90 [facility]) 00:00: mcg/actuat of mcg/act 00 ion Medicin inhaler aerosol e inhaler benzonatate 2019-0 Yes benzonatat [facility] (TESSALON) 1-31 e 200 mg [facility] 200 mg 00:00: capsule of capsule 00 Medicin e Exenatide 2019-0 Yes [facility] 10 [facility] 10 1-31 mcg/dose(2 [facility] MCG/0.04ML 00:00: 50 of SOPN 00 mcg/mL)2.4 Medicin mL e subcutaneo us pen injector pioglitazon 2020-0 Yes pioglitazo [facility] (ACTOS) 1- ne 30 mg [facility] e 30 MG 00:00: tablet of tablet 00 Medicin e albuterol 2020-0 Yes ProAir HFA [facility] 108 (11-10 [facility]) 00:00: mcg/actuat of mcg/act 00 ion Medicin inhaler aerosol e inhaler benzonatate 2020-0 Yes benzonatat [facility] (TESSALON) 1- e 200 mg [facility] 200 mg 00:00: capsule of capsule 00 Medicin e Exenatide 2020-0 Yes [place] 10 [facility] 10 1-31 mcg/dose(2 [facility] MCG/0.04ML 00:00: 50 of SOPN 00 mcg/mL)2.4 Medicin mL e subcutaneo us pen injector pioglitazon 2020-0 Yes pioglitazo [facility] (ACTOS) 1 ne 30 mg [facility] 30 MG 00:00: tablet of tablet 00 Medicin e albuterol 2020-0 Yes ProAir HFA [facility] 108 (11-10 [facility]) 00:00: mcg/actuat of mcg/act 00 ion Medicin inhaler aerosol e inhaler benzonatate 2020-0 Yes benzonatat [facility] (TESSALON) 11-10 e 200 mg [facility] 200 mg 00:00: capsule of capsule 00 Medicin e Exenatide 2020-0 Yes [place] 10 [facility] 10 1-31 mcg/dose(2 [facility] MCG/0.04ML 00:00: 50 of SOPN 00 mcg/mL)2.4 Medicin mL e subcutaneo us pen injector pioglitazon 2020-0 Yes pioglitazo [facility] (ACTOS) 1 ne 30 mg [facility] 30 MG 00:00: tablet of tablet 00 Medicin e albuterol 2020-0 Yes ProAir HFA [facility] 108 (11-10 [facility]) 00:00: mcg/actuat of mcg/act 00 ion Medicin inhaler aerosol e inhaler benzonatate 2020-0 Yes benzonatat [facility] (TESSALON) 1- e 200 mg [facility] 200 mg 00:00: capsule of capsule 00 Medicin e Exenatide 2020-0 Yes [facility] 10 [facility] 10 1-31 mcg/dose(2 [facility] MCG/0.04ML 00:00: 50 of SOPN 00 mcg/mL)2.4 Medicin mL e subcutaneo us pen injector Exenatide 2020-0 Yes [facility] 10 [facility] 10 1-31 mcg/dose(2 [facility] MCG/0.04ML 00:00: 50 of SOPN 00 mcg/mL)2.4 Medicin mL e subcutaneo us pen injector Exenatide 2020-0 Yes [facility] 10 [facility] 10 1-31 mcg/dose(2 [facility] MCG/0.04ML 00:00: 50 of SOPN 00 mcg/mL)2.4 Medicin mL e subcutaneo us pen injector Exenatide 2020-0 Yes Bianca [facility] 10 1-31 mcg/dose(2 [facility] MCG/0.04ML 00:00: 50 of SOPN 00 mcg/mL)2.4 Medicin mL e subcutaneo us pen injector Exenatide 2020-0 2020- No [place] 10 [facility] -31 12-17 mcg/dose(2 [facility] MCG/0.04ML 00:00: 00:00 50 of SOPN 00 :00 mcg/mL)2.4 Medicin mL e subcutaneo us pen injector albuterol 2020-0 2020- No [facility] [place] [address]) 00:00: 00:00 mcg/actuat of mcg/act 00 :00 ion Medicin inhaler aerosol e inhaler benzonatate 2019-0 2020- No benzonatat [facility] (TESSALON) 11-10 e 200 mg [facility] 200 mg 00:00: 00:00 capsule of capsule 00 :00 Medicin e albuterol 2020-0 2020- No ProAir HFA [facility] 108 (11-[address] [place] [address]) 00:00: 00:00 mcg/actuat of mcg/act 00 :00 ion Medicin inhaler aerosol e inhaler benzonatate 2019-0 2020- No benzonatat [facility] (TESSALON) 11-1018 e 200 mg [facility] 200 mg 00:00: 00:00 capsule of capsule 00 :00 Medicin e pioglitazon 0 2020- No pioglitazo [facility] (ACTOS) 11-10 09-21 ne 30 mg [facility] 30 MG 00:00: 00:00 tablet of tablet 00 :00 Medicin e Acetaminoph Acetaminoph 2019-0 Yes Every [address] [facility] en With en With 1-27 Hours for Luke s Codeine Codeine 21:11: Pain Patient (Tylenol (Tylenol 00 Medical With With Center Codeine #3 Codeine #3 Tablet) 1 Tablet) 1 Each TABLET Each TABLET PILOCARPINE 2019-0 Yes [id number] TAKE 1 [facility] HCL, ORAL, 10-23 TABLET BY [facility] 5 MG TABS 00:00: MOUTH of 00 THREE Medicin TIMES A e DAY - REPLACING CEVILAMINE PILOCARPINE 0 2020- No [id number] TAKE 1 [facility] HCL, ORAL, 10-23-04 TABLET BY [facility] 5 MG TABS 00:00: 00:00 MOUTH of 00 :00 THREE Medicin TIMES A e DAY - REPLACING CEVILAMINE PILOCARPINE 0 2020- No [id number] TAKE 1 [facility] HCL, ORAL, 10-23-04 TABLET BY [facility] 5 MG TABS 00:00: 00:00 MOUTH of 00 :00 THREE Medicin TIMES A e DAY - REPLACING CEVILAMINE sertraline 2020- No sertraline [facility] (ZOLOFT) 10-1303 100 mg [facility] 100 MG 22:12: 00:00 tablet of tablet 45 :00 Medicin e escitalopra 2019-0 Yes [id number] 10mg Take 1 Tab [facility] (LEXAPRO) 10-13 [id number] by mouth [facility] 10 MG 00:00: daily. of tablet 00 Medicin e escitalopra 2019-0 2020- No [id number] 10mg Take 1 Tab [facility] (LEXAPRO) 10-13 [id number] by mouth [facility] 10 MG 00:00: 00:00 daily. of tablet 00 :00 Medicin e escitalopra 2020-0 2020- No [id number] 10mg Take 1 Tab [facility] (LEXAPRO) 10-13 [id number] by mouth [facility] 10 MG 00:00: 00:00 daily. of tablet 00 :00 Medicin e sucralfate 2018-10 Yes sucralfate [facility] (CARAFATE) 2-06 1 gram [facility] 1 g tablet 15:07: tablet of 26 Medicin e benzonatate 2018-10 Yes benzonatat [facility] (TESSALON) 2-06 e 200 mg [facility] 200 mg 15:07: capsule of capsule 25 Medicin e Exenatide 2018-10 Yes [place] 10 [facility] (BYETTA 10 2-06 mcg/dose(2 [facility] MCG PEN) 10 15:07: 50 of MCG/0.04ML 25 mcg/mL)2.4 Med icin SOPN mL e subcutaneo us pen injector nystatin 2018-10 Yes Nystop [facility] (NYSTOP) 2 100,000 [facility] powder 15:07: unit/gram of 25 topical Medicin powder e ondansetron 2018-10 Yes ondansetro [facility] (ZOFRAN) 4 2-06 n HCl 4 mg [facility] MG tablet 15:07: tablet of 25 Medicin e pioglitazon 2018-10 Yes pioglitazo [facility] e (ACTOS) 2 ne 30 mg Colleg e 30 MG 15:07: tablet of tablet 25 Medicin e albuterol 2018-10 Yes ProAir HFA [facility] (PROAIR 11-16 90 [facility] HFA) 108 15:07: mcg/actuat of (90 base) 24 ion Medicin mcg/act aerosol e inhaler inhaler furosemide 2018-10 2020- No 20mg Take 20 mg [facility] (LASIX) 20 11-14 1204 by mouth. [facility] MG tablet 00:00: 05:59 of 00 :00 Medicin e furosemide 2018-10- No 20mg Take 20 mg [facility] (LASIX) 20 11-14 12 by mouth. [facility] MG tablet 00:00: 05:59 of 00 :00 Medicin e furosemide 2018-10- No 20mg Take 20 mg [facility] (LASIX) 20 11-14 12 by mouth. [facility] MG tablet 00:00: 05:59 of 00 :00 Medicin e furosemide 2018-10- No 20mg Take 20 mg [facility] (LASIX) 20 11-14 12 by mouth. [facility] MG tablet 00:00: 05:59 of 00 :00 Medicin e furosemide 2018-1 2020- No 20mg Take 20 mg [facility] (LASIX) 20 2-04 12-04 by mouth. [facility] MG tablet 00:00: 05:59 of 00 :00 Medicin e furosemide 2018-1 2020- No 20mg Take 20 mg [facility] (LASIX) 20 2-04 12-04 by mouth. [facility] MG tablet 00:00: 05:59 of 00 :00 Medicin e furosemide 2018-1 2020- No 20mg Take 20 mg [facility] (LASIX) 20 2-04 12-04 by mouth. [facility] MG tablet 00:00: 05:59 of 00 :00 Medicin e furosemide 2018-1 2020- No 20mg Take 20 mg [facility] (LASIX) 20 2-04 12-04 by mouth. [facility] MG tablet 00:00: 05:59 of 00 :00 Medicin e furosemide 2018- 2020- No 20mg Take 20 mg [facility] (LASIX) 20 2-04 12-04 by mouth. [facility] MG tablet 00:00: 05:59 of 00 :00 Medicin e furosemide 2018- 2020- No 20mg Take 20 mg [facility] (LASIX) 20 2-04 12-04 by mouth. [facility] MG tablet 00:00: 05:59 of 00 :00 Medicin e furosemide 2018-1 2020- No 20mg Take 20 mg [facility] (LASIX) 20 2-04 12-04 by mouth. [facility] MG tablet 00:00: 05:59 of 00 :00 Medicin e furosemide 2018-1 2020- No 20mg Take 20 mg [facility] (LASIX) 20 2-04 12-04 by mouth. [facility] MG tablet 00:00: 05:59 of 00 :00 Medicin e furosemide 2018-1 2020- No 20mg Take 20 mg [facility] (LASIX) 20 2-04 12-04 by mouth. [facility] MG tablet 00:00: 05:59 of 00 :00 Medicin e furosemide 2018-1 2020- No 20mg Take 20 mg [facility] (LASIX) 20 2-04 12-04 by mouth. [facility] MG tablet 00:00: 05:59 of 00 :00 Medicin e furosemide 2018-1 2020- No 20mg Take 20 mg [facility] (LASIX) 20 2-04 12-04 by mouth. [facility] MG tablet 00:00: 05:59 of 00 :00 Medicin e furosemide 2018-10 2020- No 20mg Take 20 mg [facility] (LASIX) 20 2-04 12-04 by mouth. [facility] MG tablet 00:00: 05:59 of 00 :00 Medicin e carvedilol 2018-10 Yes [id number] 6.25mg Take 6.25 [facility] (COREG) 2-03 9105 mg by College 6.25 MG 16:04: mouth 2 of tablet 53 times Medicin daily e (with meals). ONDANSETRON 2018-10 Yes 4mg Take 4 mg [facility] OR 2-03 by mouth. College 16:04: of 53 Medicin e atorvastati 2018-10 Yes 40mg Take 40 mg [facility] n (LIPITOR) 2-03 by mouth [facility] 40 MG 16:04: daily. of tablet 53 Medicin e ascorbic 2018-10 Yes 500mg Take 500 [facility] acid 500 MG 2-03 mg by College tablet 16:04: mouth of 53 daily. Medicin e ferrous 2018-10 Yes ferrous [facility] sulfate 325 2-03 sulfate [facility] (65 Fe) MG 16:04: 325 mg (65 o f tablet 53 mg iron) Medicin tablet e hyoscyamine 2018-10 Yes hyoscyamin [facility] (LEVBID) 2-03 e ER 0.375 [facility] 0.375 MG CR 16:04: mg of tablet 53 tablet,ext Medicin ended e release,12 hr trazodone 2018-10 Yes [id number] 50mg Take 50 mg [facility] (DESYREL) 2-03 [id number] by mouth [facility] 50 MG 16:04: nightly as of tablet 19 needed. Medicin e Ergocalcife 2018-10 Yes [facility] rol 1.25 MG -30 [facility] (03631 UT) 00:00: of CAPS 00 Medicin e Ergocalcife 2018-10 Yes [facility] rol 1.25 MG -30 College (17394 UT) 00:00: of CAPS 00 Medicin e Ergocalcife 2018-10 Yes [facility] rol 1.25 MG - College (21620 UT) 00:00: of CAPS 00 Medicin e Ergocalcife 2018-10 Yes [facility] rol 1.25 MG 1-30 College (90880 UT) 00:00: of CAPS 00 Medicin e Ergocalcife 2019- Yes [facility] rol 1.25 MG 1-30 [facility] (89092 UT) 00:00: of CAPS 00 Medicin e Ergocalcife 2019- Yes [facility] rol 1.25 MG 1-30 College (10504 UT) 00:00: of CAPS 00 Medicin e Ergocalcife 2019- Yes [facility] rol 1.25 MG 1-30 College (22285 UT) 00:00: of CAPS 00 Medicin e Ergocalcife 2019- Yes [facility] rol 1.25 MG 1-30 [facility] (50539 UT) 00:00: of CAPS 00 Medicin e Ergocalcife 2019- Yes [facility] rol 1.25 MG 1-30 [facility] (18260 UT) 00:00: of CAPS 00 Medicin e Ergocalcife 2019- Yes [facility] rol 1.25 MG 1-30 [facility] (55270 UT) 00:00: of CAPS 00 Medicin e Ergocalcife 2019- Yes [facility] rol 1.25 MG 1-30 [facility] (86775 UT) 00:00: of CAPS 00 Medicin e Ergocalcife 2019- Yes [facility] rol 1.25 MG 1-30 [facility] (82353 UT) 00:00: of CAPS 00 Medicin e Ergocalcife 2019- Yes [facility] rol 1.25 MG 1-30 [facility] (68758 UT) 00:00: of CAPS 00 Medicin e Ergocalcife 2019- Yes [facility] rol 1.25 MG 1-30 [facility] (55091 UT) 00:00: of CAPS 00 Medicin e Ergocalcife 2019- 2020- No [facility] 1.25 MG 1-30 18 [facility] (21075 UT) 00:00: 00:00 of CAPS 00 :00 Medicin e Ergocalcife 2019- 2020- No [facility] 1.25 MG 1-30 18 [facility] (22097 UT) 00:00: 00:00 of CAPS 00 :00 Medicin e TRUE METRIX 2019- Yes USE [facility] BLOOD 23 DIRECTED 3 College GLUCOSE 00:00: TIMES A of TEST DAY Medicin e TRUE METRIX 2019-1 Yes USE [facility] BLOOD 1-23 DIRECTED 3 [facility] GLUCOSE 00:00: TIMES A of TEST DAY Medicin e TRUE METRIX 2019-1 Yes USE [facility] BLOOD 1-23 DIRECTED 3 [facility] GLUCOSE 00:00: TIMES A of TEST DAY Medicin e TRUE METRIX 2019-1 Yes USE [facility] BLOOD 1-23 DIRECTED 3 [facility] GLUCOSE 00:00: TIMES A of TEST DAY Medicin e TRUE METRIX 2019-1 Yes USE [facility] BLOOD 1-23 DIRECTED 3 [facility] GLUCOSE 00:00: TIMES A of TEST DAY Medicin e TRUE METRIX 2019-1 Yes USE [facility] BLOOD 1-23 DIRECTED 3 [facility] GLUCOSE 00:00: TIMES A of TEST DAY Medicin e TRUE METRIX 2019-1 Yes USE [facility] BLOOD 1-23 DIRECTED 3 [facility] GLUCOSE 00:00: TIMES A of TEST DAY Medicin e TRUE METRIX 2019-1 Yes USE [facility] BLOOD 1-23 DIRECTED 3 [facility] GLUCOSE 00:00: TIMES A of TEST DAY Medicin e TRUE METRIX 2019-1 Yes USE [facility] BLOOD 1-23 DIRECTED 3 [facility] GLUCOSE 00:00: TIMES A of TEST DAY Medicin e TRUE METRIX 2019-1 Yes USE [facility] BLOOD 1-23 DIRECTED 3 [facility] GLUCOSE 00:00: TIMES A of TEST DAY Medicin e TRUE METRIX 2019-1 Yes USE [facility] BLOOD 1-23 DIRECTED 3 [facility] GLUCOSE 00:00: TIMES A of TEST DAY Medicin e TRUE METRIX 2019-1 Yes USE [facility] BLOOD 1-23 DIRECTED 3 [facility] GLUCOSE 00:00: TIMES A of TEST DAY Medicin e TRUE METRIX 2019-1 Yes USE [facility] BLOOD 1-23 DIRECTED 3 [facility] GLUCOSE 00:00: TIMES A of TEST DAY Medicin e TRUE METRIX 2019-1 Yes USE [facility] BLOOD 1-23 DIRECTED 3 [facility] GLUCOSE 00:00: TIMES A of TEST DAY Medicin e TRUE METRIX 2019-1 2020- No USE [facility] BLOOD 1-23 08-28 DIRECTED 3 [facility] GLUCOSE 00:00: 00:00 TIMES A of TEST 00 :00 DAY Medicin e TRUE METRIX 2019-1 2020- No USE [facility] BLOOD 1-23 11-18 DIRECTED 3 [facility] GLUCOSE 00:00: 00:00 TIMES A of TEST 00 :00 DAY Medicin e Ursodiol 2018-10 Yes TAKE 1 [facility] 500 MG TABS 1-21 TABLET BY [facility] 00:00: MOUTH of 00 TWICE A Medicin DAY e Ursodiol 2018-10 Yes TAKE 1 [facility] 500 MG TABS 1-21 TABLET BY [facility] 00:00: MOUTH of 00 TWICE A Medicin DAY e Ursodiol 2018-10 Yes TAKE 1 [facility] 500 MG TABS 1-21 TABLET BY [facility] 00:00: MOUTH of 00 TWICE A Medicin DAY e Ursodiol 2018-10 Yes TAKE 1 [facility] 500 MG TABS 1-21 TABLET BY [facility] 00:00: MOUTH of 00 TWICE A Medicin DAY e Ursodiol 2018-10 Yes TAKE 1 [facility] 500 MG TABS 1-21 TABLET BY [facility] 00:00: MOUTH of 00 TWICE A Medicin DAY e Ursodiol 2018-10 Yes TAKE 1 [facility] 500 MG TABS 1-21 TABLET BY [facility] 00:00: MOUTH of 00 TWICE A Medicin DAY e Ursodiol 2018-10 Yes TAKE 1 [facility] 500 MG TABS 1-21 TABLET BY [facility] 00:00: MOUTH of 00 TWICE A Medicin DAY e Ursodiol 2018-10 Yes TAKE 1 [facility] 500 MG TABS 1-21 TABLET BY [facility] 00:00: MOUTH of 00 TWICE A Medicin DAY e Ursodiol 2018-10 Yes TAKE 1 [facility] 500 MG TABS 1-21 TABLET BY [facility] 00:00: MOUTH of 00 TWICE A Medicin DAY e Ursodiol 2018-10 Yes TAKE 1 [facility] 500 MG TABS 1-21 TABLET BY [facility] 00:00: MOUTH of 00 TWICE A Medicin DAY e Ursodiol 2018-10 Yes TAKE 1 [facility] 500 MG TABS 1-21 TABLET BY [facility] 00:00: MOUTH of 00 TWICE A Medicin DAY e Ursodiol 2018-10 Yes TAKE 1 [facility] 500 MG TABS 1-21 TABLET BY [facility] 00:00: MOUTH of 00 TWICE A Medicin DAY e Ursodiol 2018-10 Yes TAKE 1 [facility] 500 MG TABS 1-21 TABLET BY [facility] 00:00: MOUTH of 00 TWICE A Medicin DAY e Ursodiol 2018-10 Yes TAKE 1 [facility] 500 MG TABS 1-21 TABLET BY [facility] 00:00: MOUTH of 00 TWICE A Medicin DAY e Ursodiol 2018-10 Yes TAKE 1 [facility] 500 MG TABS 1-21 TABLET BY [facility] 00:00: MOUTH of 00 TWICE A Medicin DAY e Ursodiol 2018-10 Yes TAKE 1 [facility] 500 MG TABS 1-21 TABLET BY [facility] 00:00: MOUTH of 00 TWICE A Medicin DAY e Ursodiol 2018-10 Yes TAKE 1 [facility] 500 MG TABS 1-21 TABLET BY [facility] 00:00: MOUTH of 00 TWICE A Medicin DAY e Ursodiol 2018-10 Yes TAKE 1 [facility] 500 MG TABS 1-21 TABLET BY [facility] 00:00: MOUTH of 00 TWICE A Medicin DAY e Ursodiol 2018-10 Yes TAKE 1 [facility] 500 MG TABS 1-21 TABLET BY [facility] 00:00: MOUTH of 00 TWICE A Medicin DAY e Ursodiol 2018-10 Yes TAKE 1 [facility] 500 MG TABS 1-21 TABLET BY [facility] 00:00: MOUTH of 00 TWICE A Medicin DAY e Ursodiol 2018-10 Yes TAKE 1 [facility] 500 MG TABS 1-21 TABLET BY [facility] 00:00: MOUTH of 00 TWICE A Medicin DAY e Ursodiol 2018-10 Yes TAKE 1 [facility] 500 MG TABS 1-21 TABLET BY [facility] 00:00: MOUTH of 00 TWICE A Medicin DAY e Ursodiol 2018-10 Yes TAKE 1 [facility] 500 MG TABS 1-21 TABLET BY [facility] 00:00: MOUTH of 00 TWICE A Medicin DAY e Ursodiol 2018-10 Yes TAKE 1 [facility] 500 MG TABS 1-21 TABLET BY [facility] 00:00: MOUTH of 00 TWICE A Medicin DAY e Ursodiol 2018-10 Yes TAKE 1 [facility] 500 MG TABS 1-21 TABLET BY [facility] 00:00: MOUTH of 00 TWICE A Medicin DAY e Ursodiol 2018-10 Yes TAKE 1 [facility] 500 MG TABS 1-21 TABLET BY [facility] 00:00: MOUTH of 00 TWICE A Medicin DAY e Ursodiol 2018-10 Yes TAKE 1 [facility] 500 MG TABS 1-21 TABLET BY [facility] 00:00: MOUTH of 00 TWICE A Medicin DAY e Ursodiol 2019-1 Yes TAKE 1 [facility] 500 MG TABS 1-21 TABLET BY [facility] 00:00: MOUTH of 00 TWICE A Medicin DAY e Ursodiol 2018-10 Yes TAKE 1 [facility] 500 MG TABS 1-21 TABLET BY [facility] 00:00: MOUTH of 00 TWICE A Medicin DAY e Ursodiol 2018-10 Yes TAKE 1 [facility] 500 MG TABS 1-21 TABLET BY [facility] 00:00: MOUTH of 00 TWICE A Medicin DAY e Ursodiol 2018-10 Yes TAKE 1 [facility] 500 MG TABS 1-21 TABLET BY [facility] 00:00: MOUTH of 00 TWICE A Medicin DAY e Ursodiol 2018-10 Yes TAKE 1 [facility] 500 MG TABS 1-21 TABLET BY [facility] 00:00: MOUTH of 00 TWICE A Medicin DAY e gabapentin 2018-10 Yes [id number] [facility] and [facility] (NEURONTIN) 1-20 noon - [facility] e 300 MG 00:00: 300mg , pm of capsule 00 - 600mg Medicin e gabapentin 2018-10 Yes [id number] Am and [facility] (NEURONTIN) 1-20 noon - Colleg e 300 MG 00:00: 300mg , pm of capsule 00 - 600mg Medicin e gabapentin 2018- Yes [id number] [facility] and [facility] (NEURONTIN) 1-20 noon - Colleg e 300 MG 00:00: 300mg , pm of capsule 00 - 600mg Medicin e gabapentin 2018- Yes [id number] [facility] and [facility] (NEURONTIN) 1-20 noon - Colleg e 300 MG 00:00: 300mg , pm of capsule 00 - 600mg Medicin e gabapentin 2018- Yes [id number] [facility] and [facility] (NEURONTIN) 1-20 noon - Colleg e 300 MG 00:00: 300mg , pm of capsule 00 - 600mg Medicin e gabapentin 2018- Yes [id number] [facility] and [facility] (NEURONTIN) 1-20 noon - Colleg e 300 MG 00:00: 300mg , pm of capsule 00 - 600mg Medicin e gabapentin 2018- Yes [id number] [facility] and [facility] (NEURONTIN) 1-20 noon - Colleg e 300 MG 00:00: 300mg , pm of capsule 00 - 600mg Medicin e gabapentin 2018- Yes [id number] Am and [facility] (NEURONTIN) 1-20 noon - Colleg e 300 MG 00:00: 300mg , pm of capsule 00 - 600mg Medicin e gabapentin 2018-10 Yes [id number] [facility] and [facility] (NEURONTIN) 20 noon - Colleg e 300 MG 00:00: 300mg , pm of capsule 00 - 600mg Medicin e gabapentin 2018-10 Yes [id number] [facility] and [facility] (NEURONTIN) 10-30 noon - Colleg e 300 MG 00:00: 300mg , pm of capsule 00 - 600mg Medicin e gabapentin 2018-10 Yes [id number] [facility] and [facility] (NEURONTIN) 10-30 noon - Colleg e 300 MG 00:00: 300mg , pm of capsule 00 - 600mg Medicin e gabapentin 2018-10 Yes [id number] Am and [facility] (NEURONTIN) 10-30 noon - Colleg e 300 MG 00:00: 300mg , pm of capsule 00 - 600mg Medicin e gabapentin 2018-10- No [id number] Am and [facility] (NEURONTIN) 10-30-14 noon - [facility] 300 MG 00:00: 00:00 300mg , pm of capsule 00 :00 - 600mg Medicin e spironolact 2018-10- No 50mg QD Take [address] [facility] 1-05 03-08 tablet (50 [facility] (ALDACTONE) 00:00: 00:00 mg total) Medical 50 MG 00 :00 by mouth Center tablet daily. spironolact 2018-10- No 50mg QD Take [address] [facility] 1-05 03-08 tablet (50 [facility] (ALDACTONE) 00:00: 00:00 mg total) Medical 50 MG 00 :00 by mouth Center tablet daily. spironolact 2018-10- No 50mg QD Take [address] [facility] 1-05 03-08 tablet (50 [facility] (ALDACTONE) 00:00: 00:00 mg total) Medical 50 MG 00 :00 by mouth Center tablet daily. spironolact 2018-10- No 50mg QD Take [address] [facility] 1-05 03-08 tablet (50 [facility] (ALDACTONE) 00:00: 00:00 mg total) Medical 50 MG 00 :00 by mouth Center tablet daily. spironolact 2019-1 2020- No 50mg Take 50 mg [facility] one 1-05 11-05 by mouth. [facility] (ALDACTONE) 00:00: 05:59 of 50 MG 00 :00 Medicin tablet e spironolact 2018-10 2020- No 50mg Take 50 mg [facility] one 1-05 11-05 by mouth. [facility] (ALDACTONE) 00:00: 05:59 of 50 MG 00 :00 Medicin tablet e spironolact 2018-10 2020- No 50mg Take 50 mg [facility] one -05 11-05 by mouth. [facility] (ALDACTONE) 00:00: 05:59 of 50 MG 00 :00 Medicin tablet e spironolact 2018-10 2020- No 50mg Take 50 mg [facility] one 1-05 11-05 by mouth. [facility] (ALDACTONE) 00:00: 05:59 of 50 MG 00 :00 Medicin tablet e spironolact 2018-10 2020- No 50mg Take 50 mg [facility] one -05 11-05 by mouth. [facility] (ALDACTONE) 00:00: 05:59 of 50 MG 00 :00 Medicin tablet e spironolact 2018-10 2020- No 50mg Take 50 mg [facility] one -05 11-05 by mouth. [facility] (ALDACTONE) 00:00: 05:59 of 50 MG 00 :00 Medicin tablet e spironolact 2018-10 2020- No 50mg Take 50 mg [facility] one -05 11-05 by mouth. [facility] (ALDACTONE) 00:00: 05:59 of 50 MG 00 :00 Medicin tablet e spironolact 2018-10 2020- No 50mg Take 50 mg [facility] one -05 11-05 by mouth. [facility] (ALDACTONE) 00:00: 05:59 of 50 MG 00 :00 Medicin tablet e spironolact 2018-10 2020- No 50mg Take 50 mg [facility] one 1-05 11-05 by mouth. [facility] (ALDACTONE) 00:00: 05:59 of 50 MG 00 :00 Medicin tablet e spironolact 2018-10 2020- No 50mg Take 50 mg [facility] one -05 11-05 by mouth. [facility] (ALDACTONE) 00:00: 05:59 of 50 MG 00 :00 Medicin tablet e spironolact 2018-10 2020- No 50mg Take 50 mg [facility] one 1-05 11-05 by mouth. [facility] (ALDACTONE) 00:00: 05:59 of 50 MG 00 :00 Medicin tablet e spironolact 2018-10 2020- No 50mg Take 50 mg [facility] one 10-15 by mouth. Ney (ALDACTONE) 00:00: 05:59 of 50 MG 00 :00 Medicin tablet e spironolact 2018-10 2020- No 50mg Take 50 mg [facility] one 10-15 by mouth. Ney (ALDACTONE) 00:00: 05:59 of 50 MG 00 :00 Medicin tablet e spironolact 2018-10 2020- No 50mg Take 50 mg [facility] one 10-15 by mouth. Ney (ALDACTONE) 00:00: 05:59 of 50 MG 00 :00 Medicin tablet e carvedilol 2018-10 Yes [id number] 6.25mg Take 6.25 [facility] (COREG) 1- 9105 mg by Ney 6.25 MG 20:39: mouth 2 of tablet 32 times Medicin daily e (with meals). sucralfate 2018-10 Yes 1g Take 1 g [facility] cruzito (CARAFATE) 1-04 by mouth [facility] 1 GM/10ML 20:39: four times of suspension 32 daily. Medicin e ONDANSETRON 2018-10 Yes 4mg Take 4 mg B a[facility] OR 1-04 by mouth. Ney 20:39: of 32 Medicin e atorvastati 2018-10 Yes 40mg Take 40 mg Yon n (LIPITOR) 1-04 by mouth Danny ege 40 MG 20:39: daily. of tablet 32 Medicin e ascorbic 2018-10 Yes 500mg Take 500 [facility] or acid 500 MG 1-04 mg by [facility] tablet 20:39: mouth of 32 daily. Medicin e ferrous 2018-10 Yes ferrous [facility] sulfate 325 1-04 sulfate Colle [facility] (65 Fe) MG 20:39: 325 mg (65 o f tablet 32 mg iron) Medicin tablet e hyoscyamine 2018-10 Yes hyoscyamin [facility]on (LEVBID) 1-04 e ER 0.375 [facility] 0.375 MG CR 20:39: mg of tablet 32 tablet,ext Medicin ended e release,12 hr trazodone 2018-10 Yes [id number] 50mg Take 50 mg Yon (DESYREL) 1-04 [id number] by mouth Danny ege 50 MG 20:39: nightly as of tablet 32 needed. Medicin e carvedilol 2018-10 Yes [id number] 6.25mg Take 6.25 [facility] (COREG) - 9105 mg by [facility] 6.25 MG 20:39: mouth 2 of tablet 32 times Medicin daily e (with meals). sucralfate 2018-10 Yes 1g Take 1 g [facility] cruzito (CARAFATE) 10-14 by mouth Colle [facility] 1 GM/10ML 20:39: four times of suspension 32 daily. Medicin e ONDANSETRON 2018-10 Yes 4mg Take 4 mg B a[facility] OR 1-04 by mouth. [facility] 20:39: of 32 Medicin e atorvastati 2018-10 Yes 40mg Take 40 mg [facility] n (LIPITOR) 10-14 by mouth Danny ege 40 MG 20:39: daily. of tablet 32 Medicin e ascorbic 2018-10 Yes 500mg Take 500 [facility] acid 500 MG 10-14 mg by [facility] tablet 20:39: mouth of 32 daily. Medicin e ferrous 2018-10 Yes ferrous [facility] sulfate 325 10-14 sulfate [facility] (65 Fe) MG 20:39: 325 mg (65 o f tablet 32 mg iron) Medicin tablet e hyoscyamine 2018-10 Yes hyoscyamin [facility] (LEVBID) 10-14 e ER 0.375 [facility] 0.375 MG CR 20:39: mg of tablet 32 tablet,ext Medicin ended e release,12 hr trazodone 2018-10 Yes [id number] 50mg Take 50 mg [facility] (DESYREL) 10-14 [id number] by mouth [facility] 50 MG 20:39: nightly as of tablet 32 needed. Medicin e NOVOLOG 2018-10 Yes 35U Inject [facility] FLEXPEN 100 - 35-40 [facility] UNIT/ML 00:00: Units into of SOPN 00 the skin 3 Medicin times e daily (with meals). NOVOLOG 2018-10 Yes 35U Inject [facility] FLEXPEN 100 - 35-40 [facility] UNIT/ML 00:00: Units into of SOPN 00 the skin 3 Medicin times e daily (with meals). Insulin 2018-10 Yes Inject [facility] Glargine, 10-14 into the [facility] Unit Dial, 00:00: skin. of 300 UNIT/ML 00 Medicin SOPN e NOVOLOG 2018-10 Yes 35U Inject [facility] FLEXPEN 100 1-04 35-40 [facility] UNIT/ML 00:00: Units into of SOPN 00 the skin 3 Medicin times e daily (with meals). Insulin 2018-10 Yes Inject [facility] Glargine, 1 1-04 into the [facility] Unit Dial, 00:00: skin. of 300 UNIT/ML 00 Medicin SOPN e NOVOLOG 2018-10 Yes 35U Inject [facility] FLEXPEN 100 1-04 35-40 [facility] UNIT/ML 00:00: Units into of SOPN 00 the skin 3 Medicin times e daily (with meals). Insulin 2018-10 Yes Inject [facility] Glargine, 1 1-04 into the [facility] Unit Dial, 00:00: skin. of 300 UNIT/ML 00 Medicin SOPN e NOVOLOG 2018-10 Yes 35U Inject [facility] FLEXPEN 100 1-04 35-40 [facility] UNIT/ML 00:00: Units into of SOPN 00 the skin 3 Medicin times e daily (with meals). Insulin 2018-10 Yes Inject [facility] Glargine, 1 1-04 into the [facility] Unit Dial, 00:00: skin. of 300 UNIT/ML 00 Medicin SOPN e Insulin 2018-10 Yes Inject [facility] Glargine, 1 1-04 into the [facility] Unit Dial, 00:00: skin. of 300 UNIT/ML 00 Medicin SOPN e Insulin 2018-10 Yes Inject [facility] Glargine, 1 1-04 into the [facility] Unit Dial, 00:00: skin. of 300 UNIT/ML 00 Medicin SOPN e Insulin 2018-10 Yes Inject [facility] Glargine, 1 1-04 into the [facility] Unit Dial, 00:00: skin. of 300 UNIT/ML 00 Medicin SOPN e PILOCARPINE 2018-10 Yes [id number] TAKE 1 [facility] HCL, ORAL, 1-04 TABLET BY [facility] 5 MG TABS 00:00: MOUTH of 00 THREE Medicin TIMES A e DAY - REPLACING CEVILAMINE NOVOLOG 2018-10 Yes 35U Inject [facility] FLEXPEN 100 1-04 35-40 [facility] UNIT/ML 00:00: Units into of SOPN 00 the skin 3 Medicin times e daily (with meals). Insulin 2018-10 Yes 40U Inject 40 [facility] Glargine, 1 1-04 Units into [facility] Unit Dial, 00:00: the skin of 300 UNIT/ML 00 two times Med icin SOPN daily. e PILOCARPINE 2018-10 Yes [id number] TAKE 1 [facility] HCL, ORAL, 1-04 TABLET BY [facility] 5 MG TABS 00:00: MOUTH of 00 THREE Medicin TIMES A e DAY - REPLACING CEVILAMINE NOVOLOG 2018-10 Yes 35U Inject [facility] FLEXPEN 100 1-04 35-40 [facility] UNIT/ML 00:00: Units into of SOPN 00 the skin 3 Medicin times e daily (with meals). Insulin 2018-10 Yes 40U Inject 40 [facility] Glargine, 1 1-04 Units into Co [facility] Unit Dial, 00:00: the skin of 300 UNIT/ML 00 two times Med icin SOPN daily. e NOVOLOG 2018-10 Yes 35U Inject [facility] FLEXPEN 100 1-04 35-40 [facility] UNIT/ML 00:00: Units into of SOPN 00 the skin 3 Medicin times e daily (with meals). Insulin 2018-10 Yes 40U Inject 40 [facility] Gl[facility]ine, 1 1-04 Units into [facility] Unit Dial, 00:00: the skin of 300 UNIT/ML 00 two times Med icin SOPN daily. e NOVOLOG 2018-10 Yes 35U Inject [facility] FLEXPEN 100 1-04 35-40 [facility] UNIT/ML 00:00: Units into of SOPN 00 the skin 3 Medicin times e daily (with meals). Insulin 2018-10 Yes 40U Inject 40 [facility] Gl[facility]ine, 1 1-04 Units into [facility] Unit Dial, 00:00: the skin of 300 UNIT/ML 00 two times Med icin SOPN daily. e Insulin 2018-10 Yes Inject [facility] Glargine, 1 1-04 into the [facility] Unit Dial, 00:00: skin. of (TOUJEO 00 Medicin SOLOSTAR) e 300 UNIT/ML SOPN NOVOLOG 2018-10 Yes 35U Inject [facility] FLEXPEN 100 1-04 35-40 [facility] UNIT/ML 00:00: Units into of SOPN 00 the skin 3 Medicin times e daily (with meals). Insulin 2018-10 Yes 40U Inject 40 [facility] Gl[facility]ine, 1 1-04 Units into Co [facility]lege Unit Dial, 00:00: the skin of 300 UNIT/ML 00 two times Med icin SOPN daily. e Insulin 2018-10 Yes Inject [facility] Glargine, 1 1-04 into the [facility] Unit Dial, 00:00: skin. of (TOUJEO 00 Medicin SOLOSTAR) e 300 UNIT/ML SOPN NOVOLOG 2018-10 Yes 35U Inject [facility] FLEXPEN 100 1-04 35-40 [facility] UNIT/ML 00:00: Units into of SOPN 00 the skin 3 Medicin times e daily (with meals). Insulin 2018-10 Yes 40U Inject 40 [facility] Gl[facility]ine, 1 1-04 Units into [facility] Unit Dial, 00:00: the skin of 300 UNIT/ML 00 two times Med icin SOPN daily. e Insulin 2018-10 Yes Inject [facility] Glargine, 1 1-04 into the [facility] Unit Dial, 00:00: skin. of (TOUJEO 00 Medicin SOLOSTAR) e 300 UNIT/ML SOPN NOVOLOG 2018-10 Yes 35U Inject [facility] FLEXPEN 100 1-04 35-40 [facility] UNIT/ML 00:00: Units into of SOPN 00 the skin 3 Medicin times e daily (with meals). Insulin 2018-10 Yes 40U Inject 40 [facility] Gl[facility]ine, 1 1-04 Units into [facility] Unit Dial, 00:00: the skin of 300 UNIT/ML 00 two times Med icin SOPN daily. e Insulin 2018-10 Yes Inject [facility] Glargine, 1 1-04 into the [facility] Unit Dial, 00:00: skin. of (TOUJEO 00 Medicin SOLOSTAR) e 300 UNIT/ML SOPN NOVOLOG 2018-10 Yes 35U Inject [facility] FLEXPEN 100 1-04 35-40 [facility] UNIT/ML 00:00: Units into of SOPN 00 the skin 3 Medicin times e daily (with meals). Insulin 2018-10 Yes 40U Inject 40 [facility] Gl[facility]ine, 1 1-04 Units into [facility] Unit Dial, 00:00: the skin of 300 UNIT/ML 00 two times Med icin SOPN daily. e Insulin 2018-10 Yes Inject [facility] Glargine, 1 04 into the [facility] Unit Dial, 00:00: skin. of (TOUJEO 00 Medicin SOLOSTAR) e 300 UNIT/ML SOPN NOVOLOG 2018-10 Yes 35U Inject [facility] FLEXPEN 100 1-04 35-40 [facility] UNIT/ML 00:00: Units into of SOPN 00 the skin 3 Medicin times e daily (with meals). NOVOLOG 2018-10 Yes 35U Inject [facility] FLEXPEN 100 1-04 35-40 [facility] UNIT/ML 00:00: Units into of SOPN 00 the skin 3 Medicin times e daily (with meals). NOVOLOG 2018-10 Yes 35U Inject [facility] FLEXPEN 100 1-04 35-40 [facility] UNIT/ML 00:00: Units into of SOPN 00 the skin 3 Medicin times e daily (with meals). Insulin 2018-10- No Inject [facility] Glargine, 10-14 12-17 into the [facility] Unit Dial, 00:00: 00:00 skin. of 300 UNIT/ML 00 :00 Medicin SOPN e promethazin 2018-10 Yes 12.5mg Take 1 Tab [facility] e 0-28 by mouth [facility] (PHENERGAN) 00:00: every 6 of 12.5 MG 00 hours as Medicin tablet needed for e Nausea. promethazin 2018-10 Yes 12.5mg Take 1 Tab [facility] e 0-28 by mouth [facility] (PHENERGAN) 00:00: every 6 of 12.5 MG 00 hours as Medicin tablet needed for e Nausea. promethazin 2018-10 Yes 12.5mg Take 1 Tab [facility] e 0-28 by mouth [facility] (PHENERGAN) 00:00: every 6 of 12.5 MG 00 hours as Medicin tablet needed for e Nausea. promethazin 2018-10- No 12.5mg Take 1 Tab [facility] e 0-28 02-03 by mouth [facility] (PHENERGAN) 00:00: 00:00 every 6 of 12.5 MG 00 :00 hours as Medicin tablet needed for e Nausea. promethazin 2018-10- No 12.5mg Take 1 Tab [facility] e 0-28 02-03 by mouth [facility] (PHENERGAN) 00:00: 00:00 every 6 of 12.5 MG 00 :00 hours as Medicin tablet needed for e Nausea. trazodone 2018-10 Yes [id number] 50mg Take 50 mg [facility] (DESYREL) 0-02 [id number] by mouth [facility] 50 MG 05:15: nightly as of tablet 40 needed. Medicin e escitalopra 2018-10 Yes [id number] 10mg Take 1 Tab [facility] (LEXAPRO) 0-01 [id number] by mouth [facility] 10 MG 00:00: daily. of tablet 00 Medicin e escitalopra 2018-10 Yes [id number] 10mg Take 1 Tab [facility] (LEXAPRO) 0-01 [id number] by mouth [facility] 10 MG 00:00: daily. of tablet 00 Medicin e escitalopra 2018-10 Yes [id number] 10mg Take 1 Tab [facility] (LEXAPRO) 0-01 [id number] by mouth [facility] 10 MG 00:00: daily. of tablet 00 Medicin e escitalopra 2018-10 2020- No [id number] 10mg Take 1 Tab [facility] (LEXAPRO) 0-01 01-03 [id number] by mouth [facility] 10 MG 00:00: 00:00 daily. of tablet 00 :00 Medicin e gabapentin Yes TAKE 1 [facility] (NEURONTIN) 9-27 CAPSULE BY [facility] 300 MG 00:00: MOUTH of capsule 00 THREE Medicin TIMES A e DAY gabapentin 2018- Yes TAKE 1 [facility] (NEURONTIN) 9-27 CAPSULE BY [facility] 300 MG 00:00: MOUTH of capsule 00 THREE Medicin TIMES A e DAY gabapentin 2018- Yes TAKE 1 [facility] (NEURONTIN) 9-27 CAPSULE BY [facility] 300 MG 00:00: MOUTH of capsule 00 THREE Medicin TIMES A e DAY duloxetine 2018- Yes TAKE 1 [facility] (CYMBALTA) 9-16 CAPSULE BY [facility] 60 MG 00:00: MOUTH of capsule 00 EVERY DAY Medicin e duloxetine Yes TAKE 1 [facility] (CYMBALTA) 9-16 CAPSULE BY [facility] 60 MG 00:00: MOUTH of capsule 00 EVERY DAY Medicin e duloxetine Yes TAKE 1 [facility] (CYMBALTA) 9-16 CAPSULE BY [facility] 60 MG 00:00: MOUTH of capsule 00 EVERY DAY Medicin e duloxetine 2018-0 2020- No TAKE 1 [facility] (CYMBALTA) 9-16 11-18 CAPSULE BY [facility] 60 MG 00:00: 00:00 MOUTH of capsule 00 :00 EVERY DAY Medicin e duloxetine 2018-0 2020- No TAKE 1 [facility] (CYMBALTA) 9-16 11-18 CAPSULE BY [facility] 60 MG 00:00: 00:00 MOUTH of capsule 00 :00 EVERY DAY Medicin e polyethylen 0 Yes 17g Take 17 g [facility] glycol 9-10 by mouth [facility] (GLYCOLAX) 00:00: daily. of powder 00 Medicin e polyethylen Yes 17g Take 17 g [facility] glycol 9-10 by mouth [facility] (GLYCOLAX) 00:00: daily. of powder 00 Medicin e polyethylen 0 Yes 17g Take 17 g [facility] glycol 9-10 by mouth [facility] (GLYCOLAX) 00:00: daily. of powder 00 Medicin e polyethylen 0 Yes 17g Take 17 g [facility] glycol 9-10 by mouth [facility] (GLYCOLAX) 00:00: daily. of powder 00 Medicin e polyethylen 0 Yes 17g Take 17 g [facility] glycol 9-10 by mouth [facility] (GLYCOLAX) 00:00: daily. of powder 00 Medicin e polyethylen 0 2020- No 17g Take 17 g [facility] e glycol 9-10 02-04 by mouth Colleg e (GLYCOLAX) 00:00: 00:00 daily. of powder 00 :00 Medicin e polyethylen 0 2020- No 17g Take 17 g [facility] e glycol 9-10 02-04 by mouth [facility] e (GLYCOLAX) 00:00: 00:00 daily. of powder 00 :00 Medicin e gabapentin Yes TAKE 1 [facility] (NEURONTIN) 8-29 CAPSULE BY [facility] 300 MG 00:00: MOUTH of capsule 00 THREE Medicin TIMES A e DAY gabapentin 2018-0 2019- No TAKE 1 [facility] (NEURONTIN) 8-29 09-27 CAPSULE BY [facility] 300 MG 00:00: 00:00 MOUTH of capsule 00 :00 THREE Medicin TIMES A e DAY Continuous 2019-0 Yes [id number] 1{each} 1 Each [facility] Blood Gluc 8-27 every 14 [facility] Sensor 00:00: days. of (FREESTYLE 00 Medicin DEANA 14 e DAY SENSOR) MISC Continuous 2019-0 Yes [id number] 1{each} 1 Each [facility] Gluc 8-27 daily. [facility] Medical Researcher 00:00: of (FREESTYLE 00 Medicin DEANA 14 e DAY READER) MONICA Continuous 2019-0 Yes [id number] 1{each} 1 Each [facility] Blood Gluc 8-27 every 14 [facility] Sensor 00:00: days. of (FREESTYLE 00 Medicin DEANA 14 e DAY SENSOR) MISC Continuous 2019-0 Yes [id number] 1{each} 1 Each [facility] Blood Gluc 8-27 daily. [facility] Medical Researcher 00:00: of (FREESTYLE 00 Medicin DEANA 14 e DAY READER) MONICA tramadol 2019-0 Yes 50mg Take 1 Tab [facility] (ULTRAM) 50 8-22 by mouth [facility] MG tablet 00:00: every 6 of 00 hours as Medicin needed for e Pain. tramadol 2019-0 Yes 50mg Take 1 Tab [facility] (ULTRAM) 50 8-22 by mouth [facility] MG tablet 00:00: every 6 of 00 hours as Medicin needed for e Pain. tramadol 2019-0 Yes 50mg Take 1 Tab [facility] (ULTRAM) 50 8-22 by mouth [facility] MG tablet 00:00: every 6 of 00 hours as Medicin needed for e Pain. tramadol 2019-0 Yes 50mg Take 1 Tab [facility] (ULTRAM) 50 8-22 by mouth [facility] MG tablet 00:00: every 6 of 00 hours as Medicin needed for e Pain. tramadol 2019-0 Yes 50mg Take 1 Tab [facility] (ULTRAM) 50 8-22 by mouth [facility] MG tablet 00:00: every 6 of 00 hours as Medicin needed for e Pain. tramadol 2019-0 Yes 50mg Take 1 Tab [facility] (ULTRAM) 50 8-22 by mouth [facility] MG tablet 00:00: every 6 of 00 hours as Medicin needed for e Pain. tramadol 2019-0 Yes 50mg Take 1 Tab [facility] (ULTRAM) 50 8-22 by mouth [facility] MG tablet 00:00: every 6 of 00 hours as Medicin needed for e Pain. tramadol 2019-0 Yes 50mg Take 1 Tab [facility] (ULTRAM) 50 8-22 by mouth [facility] MG tablet 00:00: every 6 of 00 hours as Medicin needed for e Pain. tramadol 2019-0 Yes 50mg Take 1 Tab [facility] (ULTRAM) 50 8-22 by mouth [facility] MG tablet 00:00: every 6 of 00 hours as Medicin needed for e Pain. tramadol 2019-0 Yes 50mg Take 1 Tab [facility] (ULTRAM) 50 8-22 by mouth [facility] MG tablet 00:00: every 6 of 00 hours as Medicin needed for e Pain. carvedilol 2019-0 Yes [id number] 6.25mg Take 6.25 [facility] (COREG) 7-16 9105 mg by [facility] 6.25 MG 18:16: mouth 2 of tablet 28 times Medicin daily e (with meals). sucralfate 2019-0 Yes 1g Take 1 g [facility] (CARAFATE) 7-16 by mouth [facility]le [facility] 1 GM/10ML 18:16: four times of suspension 28 daily. Medicin e ONDANSETRON 2018-0 Yes 4mg Take 4 mg [facility] OR 7-16 by mouth. College 18:16: of 28 Medicin e promethazin 2018-0 Yes 12.5mg Take 12.5 [facility] e 7-16 mg by [facility] (PHENERGAN) 18:16: mouth of 12.5 MG 28 every 6 Medicin tablet hours as e needed for Nausea. atorvastati 2019-0 Yes 40mg Take 40 mg [facility] n (LIPITOR) 7-16 by mouth [facility] 40 MG 18:16: daily. of tablet 28 Medicin e ascorbic 2019-0 Yes 500mg Take 500 [facility] acid 500 MG 7-16 mg by [facility] tablet 18:16: mouth of 28 daily. Medicin e ferrous 2019-0 Yes ferrous [facility] sulfate 325 7-16 sulfate [facility] (65 Fe) MG 18:16: 325 mg (65 o f tablet 28 mg iron) Medicin tablet e hyoscyamine 2018-0 Yes hyoscyamin [facility] (LEVBID) 7-16 e ER 0.375 [facility] 0.375 MG CR 18:16: mg of tablet 28 tablet,ext Medicin ended e release,12 hr carvedilol 2019- Yes [id number] 6.25mg Take 6.25 [facility] (COREG) 7-16 9105 mg by [facility] 6.25 MG 18:16: mouth 2 of tablet 28 times Medicin daily e (with meals). sucralfate 2018- Yes 1g Take 1 g [facility] (CARAFATE) 7-16 by mouth [facility] 1 GM/10ML 18:16: four times of suspension 28 daily. Medicin e ONDANSETRON Yes 4mg Take 4 mg [facility] 7-16 by mouth. [facility] 18:16: of 28 Medicin e promethazin Yes 12.5mg Take 12.5 [facility] e 7-16 mg by [facility] (PHENERGAN) 18:16: mouth of 12.5 MG 28 every 6 Medicin tablet hours as e needed for Nausea. atorvastati Yes 40mg Take 40 mg [facility] (LIPITOR) 7-16 by mouth [facility] 40 MG 18:16: daily. of tablet 28 Medicin e ascorbic Yes 500mg Take 500 [facility] acid 500 MG 7-16 mg by [facility] tablet 18:16: mouth of 28 daily. Medicin e ferrous Yes ferrous [facility] sulfate 325 7-16 sulfate [facility] (65 Fe) MG 18:16: 325 mg (65 o f tablet 28 mg iron) Medicin tablet e hyoscyamine Yes hyoscyamin [facility] (LEVBID) 7-16 e ER 0.375 [facility] 0.375 MG CR 18:16: mg of tablet 28 tablet,ext Medicin ended e release,12 hr NOVOLOG Yes 30U Inject 30 [facility] FLEXPEN 100 7-16 Units into [facility]lege UNIT/ML 00:00: the skin 3 of SOPN 00 times Medicin daily e (with meals). Insulin Yes 35U Inject 35 [facility] Glargine 7-16 Units into [facility] 300 UNIT/ML 00:00: the skin of SOPN 00 two times Medicin daily. e NOVOLOG Yes 30U Inject 30 [facility] FLEXPEN 100 7-16 Units into [facility] UNIT/ML 00:00: the skin 3 of SOPN 00 times Medicin daily e (with meals). Insulin Yes 35U Inject 35 [facility] Glargine 7-16 Units into [facility] 300 UNIT/ML 00:00: the skin of SOPN 00 two times Medicin daily. e NOVOLOG 2019- No 30U Inject 30 [facility] FLEXPEN 100 7-16 11-04 Units into C [facility] UNIT/ML 00:00: 00:00 the skin 3 of SOPN 00 :00 times Medicin daily e (with meals). Insulin 2018- No 35U Inject 35 [facility] Glargine 16 11-04 Units into [facility] 300 UNIT/ML 00:00: 00:00 the skin o f SOPN 00 :00 two times Medicin daily. e warfarin 2020- No 4mg QD Take [address] [facility] (COUMADIN) 7- 03-18 tablet (4 Jason es 4 MG tablet 00:00: 00:00 mg total) Medical 00 :00 by mouth [facility] daily Alternate with 3mg. warfarin 2020- No 4mg QD Take [address] [facility] (COUMADIN) 7- 03-18 tablet (4 [facility] 4 MG tablet 00:00: 00:00 mg total) Medical 00 :00 by mouth Center daily Alternate with 3mg. warfarin 2020- No 4mg QD Take [address] [facility] (COUMADIN) 7- 03-18 tablet (4 [facility] 4 MG tablet 00:00: 00:00 mg total) Medical 00 :00 by mouth Center daily Alternate with 3mg. warfarin 2020- No 4mg QD Take [address] [facility] (COUMADIN) 7- 03-18 tablet (4 [facility] 4 MG tablet 00:00: 00:00 mg total) Medical 00 :00 by mouth Center daily Alternate with 3mg. Cephalexin Cephalexin 2019- No [address] [facility] Monohydrate Monohydrate 6-05 06-05 Hours [facility] (Keflex) (Keflex) 16:18: 00:00 Ev ent 500 Mg 500 Mg 00 :00 Medical CAPSULE CAPSULE Center PILOCARPINE 2018- Yes 5mg Take 5 mg [facility] HCL, ORAL, 5-16 by mouth [facility] 5 MG TABS 00:00: daily. of 00 Medicin e PILOCARPINE Yes 5mg Take 5 mg [facility] HCL, ORAL, 5-16 by mouth [facility] 5 MG TABS 00:00: daily. of Medicin e PILOCARPINE 2018- No 5mg Take 5 mg [facility] HCL, ORAL, 5-16 08-12 by mouth [facility] 5 MG TABS 00:00: 00:00 daily. of 00 :00 Medicin e TOUJEO 2020- No [facility] 5-13 03-18 UNITS [facility] 00:00: 00:00 SUBCUTANEO Medic al INSULIN 300 00 :00 USLY TWICE Ce nter unit/mL DAILY (1.5 mL) InPn syringe [facility] 2020- No INJECT [facility] 5-13 03-18 UN[facility] 00:00: 00:00 SUBCUTANEO Medic al INSULIN 300 00 :00 USLY TWICE Ce nter unit/mL DAILY (1.5 mL) InPn syringe [facility] 2020- No INJECT [facility] 5-13 03-18 UNITS [facility] 00:00: 00:00 SUBCUTANEO Medic al INSULIN 300 00 :00 USLY TWICE Ce nter unit/mL DAILY (1.5 mL) InPn syringe [facility] 2020- No INJECT [facility] 5-13 03-18 UNITS [facility] 00:00: 00:00 SUBCUTANEO Medic al INSULIN 300 00 :00 USLY TWICE Ce nter unit/mL DAILY (1.5 mL) InPn syringe nitrofurant Yes 100 mg = 1 [facility] o[facility] 5-11 cap, PO, College (MACRODANTI 00:00: QID, X 10 o f N) 100 MG 00 day, # 40 Medic in capsule cap, 0 e Refill(s) nitrofurant Yes 100 mg = 1 [facility] o[facility] 5-11 cap, PO, [facility] (MACRODANTI 00:00: QID, X 10 o f N) 100 MG 00 day, # 40 Medic in capsule cap, 0 e Refill(s) nitrofurant Yes 100 mg = 1 [facility] o[facility] 5-11 cap, PO, [facility] (MACRODANTI 00:00: QID, X 10 o f N) 100 MG 00 day, # 40 Medic in capsule cap, 0 e Refill(s) nitrofurant 2019- No 100 mg = 1 [facility] edmondn 02-18 cap, PO, College (MACRODANTI 00:00: 00:00 QID, X 10 of N) 100 MG 00 :00 day, # 40 Medic in capsule cap, 0 e Refill(s) nitrofurant 2020- No 100 mg = 1 [facility] oin 02-18 cap, PO, [facility] (MACRODANTI 00:00: 00:00 QID, X 10 of N) 100 MG 00 :00 day, # 40 Medic in capsule cap, 0 e Refill(s) Diclofenac Yes Apply 2g [facility] Sodium 1 % 1-31 tid to the Col [facility]ge GEL 00:00: BL knees of 00 Medicin e Diclofenac Yes Apply 2g [facility] Sodium 1 % 1-31 tid to the Col [facility]ge GEL 00:00: BL knees of Medicin e Diclofenac 2019- No Apply 2g [facility] Sodium 1 % 1-31 11-04 tid to the Co [facility]lege GEL 00:00: 00:00 BL knees of 00 :00 Medicin e Propranolol Propranolol 2017-10 2019- No [address] [facility] H[facility] 0-04 06-05 Daily [facility] 17:[facility]: [facility]:00 [facility] 00 :00 [facility] Tramadol Tramadol 2017-10 2019- No 50 [address] Hcl Hcl 0-04 06-05 Hours as [facility] (Ultram) 50 (Ultram) 50 17:56: 00:00 needed for Patient Mg TABLET Mg TABLET 00 :00 [facility] warfarin Yes [facility] (COUMADIN) 4-03 [facility] 3 MG tablet 00:00: of 00 Medicin e warfarin Yes [id number] [facility] (COUMADIN) 4- [address] [place] [address] 3 MG tablet 00:00: of 00 Medicin e warfarin Yes [id number] [facility] (COUMADIN) 4- [address] [place] [address] 4 MG tablet 00:00: of 00 Medicin e warfarin Yes [id number] [facility] (COUMADIN) 4- 9105 [facility] 3 MG tablet 00:00: of Medicin e warfarin 2018-0 Yes [id number] [facility] (COUMADIN) 01-11 91 [facility] 4 MG tablet 00:00: Medicin e warfarin 2018-0 Yes [id number] [facility] (COUMADIN) 01-11 91 [facility] 3 MG tablet 00:00: Medicin e warfarin 2018-0 Yes [id number] [facility] (COUMADIN) 01-11 [facility] 4 MG tablet 00:00: Medicin e warfarin 2018-0 Yes [id number] [facility] (COUMADIN) 01-11 ,Sat,Sun Colle ge 3 MG tablet 00:00: Medicin e warfarin 2018-0 Yes [id number] every [facility] (COUMADIN) 01-11, Colleg e 4 MG tablet 00:00: Wednesday, wednesday. Medicin e warfarin 2018-0 Yes [id number] [facility] (COUMADIN) 01-11 ,Sat,Sun Colle ge 3 MG tablet 00:00: of Medicin e warfarin 2017-0 Yes [id number] every [facility] (COUMADIN) 01-11, Colleg e 4 MG tablet 00:00: Wednesday, wednesday. Medicin e warfarin 2017-0 Yes [id number] [facility] (COUMADIN) 01-11 ,Sat,Sun Colle ge 3 MG tablet 00:00: Medicin e warfarin 2018-0 Yes [id number] every [facility] (COUMADIN) 01-11, Colleg e 4 MG tablet 00:00: Wednesday, wednesday. Medicin e warfarin 2018-0 Yes [id number] [facility] (COUMADIN) 01-11 ,Sat,Sun Colle ge 3 MG tablet 00:00: Medicin e warfarin 2018-0 Yes [id number] every [facility] (COUMADIN) 01-11, Colleg e 4 MG tablet 00:00: Wednesday, wednesday. Medicin e warfarin 2018-0 Yes [id number] [facility] (COUMADIN) 4-03 9105 ,Sat,Sun Colle ge 3 MG tablet 00:00: of 00 Medicin e warfarin 2018-0 Yes [id number] every [facility] (COUMADIN) 01-11, Colleg e 4 MG tablet 00:00: Wednesday, wednesday. Medicin e warfarin 2018-0 Yes [id number] [facility] (COUMADIN) 01-11 91 [facility] 3 MG tablet 00:00: of Medicin e warfarin 2018-0 Yes [id number] [facility] (COUMADIN) 01-1105 ,Sat,Sun Colle ge 3 MG tablet 00:00: of Medicin e warfarin 2018-0 Yes [id number] every [facility] (COUMADIN) 01-11, Colleg e 4 MG tablet 00:00: Wednesday, wednesday. Medicin e warfarin 2018-0 Yes [id number] [facility] (COUMADIN) 01-11 [facility] 4 MG tablet 00:00: Medicin e warfarin 2018-0 Yes [id number] [facility] (COUMADIN) 01-11 ,Sat,Sun Colle ge 3 MG tablet 00:00: of Medicin e warfarin 2018-0 Yes [id number] every [facility] (COUMADIN) 01-11, Colleg e 4 MG tablet 00:00: Wednesday, wednesday. Medicin e warfarin 2018-0 Yes [id number] [facility] (COUMADIN) 01-11 ,Sat,Sun Colle ge 3 MG tablet 00:00: Medicin e warfarin 2018-0 Yes [id number] every [facility] (COUMADIN) 01-11, Colleg e 4 MG tablet 00:00: Wednesday, wednesday. Medicin e warfarin 2018-0 Yes [id number] [facility] (COUMADIN) 01-11 ,Sat,Sun Colle ge 3 MG tablet 00:00: of Medicin e warfarin 2018-0 Yes [id number] every [facility] (COUMADIN) 01-11, Colleg e 4 MG tablet 00:00: Wednesday, wednesday. Medicin e warfarin 2018-0 2020- No [id number] every [facility] (COUMADIN) 01-11, Colle ge 4 MG tablet 00:00: 00:00 Wednesday, of 00 :00 Wednesday. Medicin e warfarin 2017- 2020- No [id number] Nabila Lynn [facility] (COUMADIN) 01-11 ,Sat,Sun [facility] 3 MG tablet 00:00: 00:00 of 00 :00 Medicin e pantoprazol 2018-[address] [facility] 01-08 [facility] (PROTONIX) 00:00: of 40 MG 00 Medicin tablet e pantoprazol 2018-0 Yes [id number] at [facility] 01-08 bedtime. [facility] (PROTONIX) 00:00: of 40 MG 00 Medicin tablet e rosuvastati 2018-0 Yes [id number] [facility] (CRESTOR) 01-08 [facility] 20 MG 00:00: of tablet 00 Medicin e pantoprazol 2018-0 Yes [id number] at [facility] 01-08 bedtime. [facility] (PROTONIX) 00:00: of 40 MG 00 Medicin tablet e rosuvastati 2018-0 Yes [id number] [facility] (CRESTOR) 01-08 [facility] 20 MG 00:00: of tablet 00 Medicin e pantoprazol 2018-0 Yes [id number] at [facility] 01-08 bedtime. Ney (PROTONIX) 00:00: of 40 MG 00 Medicin tablet e rosuvastati 2018-0 Yes [id number] [facility] (CRESTOR) 01-08 Ney 20 MG 00:00: of tablet 00 Medicin e pantoprazol 2018-0 Yes [id number] at [facility] 01-08 bedtime. Ney (PROTONIX) 00:00: of 40 MG 00 Medicin tablet e rosuvastati 2018-0 Yes [id number] [facility] (CRESTOR) 01-08 Ney 20 MG 00:00: of tablet 00 Medicin e pantoprazol 2018-0 Yes [id number] at [facility] 01-08 bedtime. Ney (PROTONIX) 00:00: of 40 MG 00 Medicin tablet e rosuvastati 2018-0 Yes [id number] [facility] n (CRESTOR) 3-[address] [place] [address] 20 MG 00:00: of tablet 00 Medicin e pantoprazol 2018-0 Yes [id number] at [facility] 01-08 bedtime. Ney (PROTONIX) 00:00: of 40 MG 00 Medicin tablet e rosuvastati 2018-0 Yes [id number] [facility] (CRESTOR) 01-[address] [place] [address] 20 MG 00:00: of tablet 00 Medicin e pantoprazol 2018-0 Yes [id number] at [facility] 01-08 [facility] bedtime. Ney (PROTONIX) 00:00: of 40 MG 00 Medicin tablet e rosuvastati 2018-0 Yes [id number] [facility] (CRESTOR) 01-[address] [place] [address] 20 MG 00:00: of tablet 00 Medicin e pantoprazol 2017-[id number] [facility] 01-[address] [place] [address] (PROTONIX) 00:00: of 40 MG 00 Medicin tablet e rosuvastati 2018-0 Yes [id number] [facility] ([facility] 01-[address] [place] [address] 20 MG 00:00: of tablet 00 Medicin e pantoprazol 2018-0 2020- No [id number] at [facility] 01-08 [facility] bedtime. Ney (PROTONIX) 00:00: 00:00 of 40 MG 00 :00 Medicin tablet e rosuvastati 2018-0 2020- No [id number] [facility] ([facility] 01-[address] [place] [address] 20 MG 00:00: 00:00 of tablet 00 :00 Medicin e pantoprazol 2018-0 2020- No [id number] at [facility] 01-08 [facility] bedtime. [facility] (PROTONIX) 00:00: 00:00 of 40 MG 00 :00 Medicin tablet e rosuvastati 2018-0 2020- No [id number] [facility] ([facility] 01-[address] [place] [address] 20 MG 00:00: 00:00 of tablet 00 :00 Medicin e levothyroxi 2018-0 Yes [id number] [facility] [address] [place] [address] (SYNTHROID) 00:00: of 125 MCG 00 Medicin tablet e levothyroxi 2018-0 Yes [id number] [facility] 12-[address] [place] [address] (SYNTHROID) 00:00: of 125 MCG 00 Medicin tablet e levothyroxi 2018-0 Yes [id number] [facility] 2-27 [address] [employer] (SYNTHROID) 00:00: of 125 MCG 00 Medicin tablet e levothyroxi 2018-0 Yes [id number] [facility] 2-27 [facility] [employer] (SYNTHROID) 00:00: of 125 MCG 00 Medicin tablet e levothyroxi 2018-0 Yes [id number] [facility] 2-27 [facility] [employer] (SYNTHROID) 00:00: of 125 MCG 00 Medicin tablet e levothyroxi 2018-0 Yes [id number] [facility] 2-27 [facility] [employer] (SYNTHROID) 00:00: of 125 MCG 00 Medicin tablet e levothyroxi 2018-0 Yes [id number] [facility] 2-27 [facility] (SYNTHROID) 00:00: of 125 MCG 00 Medicin tablet e levothyroxi 2018-0 Yes [id number] [facility] 2-27 [facility] (SYNTHROID) 00:00: of 125 MCG 00 Medicin tablet e levothyroxi 2018-0 Yes [id number] [facility] 2-27 [facility] (SYNTHROID) 00:00: of 125 MCG 00 Medicin tablet e levothyroxi 2018-0 Yes [id number] [facility] 2-27 [facility] (SYNTHROID) 00:00: of 125 MCG 00 Medicin tablet e levothyroxi 2018-0 Yes [id number] [facility] 2-27 [employer] [employer] (SYNTHROID) 00:00: of 125 MCG 00 Medicin tablet e levothyroxi 2018-0 Yes [id number] [facility] 2-27 [employer] (SYNTHROID) 00:00: of 125 MCG 00 Medicin tablet e levothyroxi 2018-0 Yes [id number] [facility] 2-27 [employer] (SYNTHROID) 00:00: of 125 MCG 00 Medicin tablet e levothyroxi 2018-0 Yes [id number] [facility] 2-27 [employer] [employer] (SYNTHROID) 00:00: of 125 MCG 00 Medicin tablet e levothyroxi 2018-0 Yes [id number] [facility] 2-27 [facility] [employer] (SYNTHROID) 00:00: of 125 MCG 00 Medicin tablet e levothyroxi 2018-0 Yes [id number] [facility] 2-[address] [place] [address] (SYNTHROID) 00:00: of 125 MCG 00 Medicin tablet e levothyroxi 2018-0 Yes [id number] [facility] 2-[address] [place] [address] (SYNTHROID) 00:00: of 125 MCG 00 Medicin tablet e levothyroxi 2018-0 Yes [id number] [facility] 2-[address] [place] [address] (SYNTHROID) 00:00: of 125 MCG 00 Medicin tablet e levothyroxi 2017-0 Yes [id number] [facility] 2-[address] [place] [address] (SYNTHROID) 00:00: of 125 MCG 00 Medicin tablet e levothyroxi 2017-0 Yes [id number] [facility] 2-[address] [place] [address] (SYNTHROID) 00:00: of 125 MCG 00 Medicin tablet e levothyroxi 2017-0 Yes [id number] [facility] 2-[address] [place] [address] (SYNTHROID) 00:00: of 125 MCG 00 Medicin tablet e levothyroxi 2017-0 Yes [id number] [facility] 2-[address] [place] [address] (SYNTHROID) 00:00: of 125 MCG 00 Medicin tablet e levothyroxi 2017-0 Yes [id number] [facility] 2-[address] [place] [address] (SYNTHROID) 00:00: of 125 MCG 00 Medicin tablet e levothyroxi 2017-0 Yes [id number] [facility] 2-[address] [place] [address] (SYNTHROID) 00:00: of 125 MCG 00 Medicin tablet e hydrocodone Yes 1 tab, PO, [facility] -acetaminop 5-08 Q4H, PRN Danny ege hen (NORCO) 00:00: Pain Score of 5-325 mg 00 1-3, 0 Medicin tablet Refill(s) e hydrocodone 0 Yes 1 tab, PO, [facility] -acetaminop 5-08 Q4H, PRN Danny ege hen (NORCO) 00:00: Pain Score of 5-325 mg 00 1-3, 0 Medicin tablet Refill(s) e hydrocodone 0 Yes 1 tab, PO, [facility] -acetaminop 5-08 Q4H, PRN Danny ege hen (NORCO) 00:00: Pain Score of 5-325 mg 00 1-3, 0 Medicin tablet Refill(s) e hydrocodone 2020- No 1 tab, PO, [facility] -acetaminop 02-15 Q4H, PRN Col lege hen (NORCO) 00:00: 00:00 Pain Score of 5-325 mg 00 :00 1-3, 0 Medicin tablet Refill(s) e hydrocodone 2020- No 1 tab, PO, [facility] -acetaminop 02-15 Q4H, PRN [facility] (NORCO) 00:00: 00:00 Pain Score of 5-325 mg 00 :00 1-3, 0 Medicin tablet Refill(s) e ezetimibe-s Yes 1 tablet [facility] imvastatin 02-09 [facility] (VYTORIN) 00:00: of 10-40 MG 00 Medicin per tablet e ezetimibe-s Yes 1 tablet [facility] imvastatin 02-09 [facility] (VYTORIN) 00:00: of 10-40 MG 00 Medicin per tablet e ezetimibe-s Yes 1 tablet [facility] imvastatin 02-09 [facility] (VYTORIN) 00:00: of 10-40 MG 00 Medicin per tablet e ezetimibe-s 2020- No 1 tablet [facility] imvastatin 02-09 [facility] (VYTORIN) 00:00: 00:00 of 10-40 MG 00 :00 Medicin per tablet e ezetimibe-s 2020- No 1 tablet [facility] imvastatin 02-09 [facility] (VYTORIN) 00:00: 00:00 of 10-40 MG 00 :00 Medicin per tablet e Exenatide Exenatide 2018- No Twice A [facility] ([place]) 5 ([place]) 5 06- Day Elena kes Mcg/0.02 Ml Mcg/0.02 Ml 00:00 Patient PEN.INJCTR PEN.INJCTR :00 [facility] Hyoscyamine Hyoscyamine 2018- No [facility] Sulfate Sulfate 06-05 Daily [facility] (Levsin) (Levsin) 00:00 Patien t 0.125 Mg 0.125 Mg :00 Medical TABLET TABLET Center Levothyroxi Levothyroxi 2018- No [address] [facility] ne Sodium ne Sodium 06-05 6:30AM Elena kes (Synthroid) (Synthroid) 00:00 Patient 125 Mcg TAB 125 [facility]g [facility] L[facility]ox 2018- No [facility] Patient :00 [facility] Meclizine Meclizine 2018- No 12.[address] [facility]cl 05 [facility] 00:00 Patient :00 [facility] Ondansetron Ondansetron 2018- No [address] [facility] (Zofran (Zofran -05 [facility] Odt) 4 Mg Odt) 4 Mg 00:00 Ev ent TAB.RAPDIS TAB.RAPDIS :00 Med ical [place] Pantoprazol Pantoprazol 2018- No [address] [facility] e Sodium e Sodium 05 [facility] (Protonix) (Protonix) 00:00 Pa tient 40 Mg 40 Mg :00 Medical TABLET. TABLET.DR Siobhan manriquez Promethazin Promethazin 2018- No 12.[address] [facility] e Hcl 03-15 [facility] 00:00 Patient :00 [facility] Rosuvastati Rosuvastati 2018- No [address] [facility] n Calcium n Calcium 06-05 [facility] s (Crestor) (Crestor) 00:00 Ev ent 20 Mg 20 Mg :00 Medical TABLET TABLET Center Sertraline Sertraline 2018- No [address] [facility] 05 [facility] 00:00 Patient :00 [facility] Sucralfate Sucralfate 2018- No [address] [facility] -05 Day [facility] 00:[facility] Patient :00 [facility] Warfarin Warfarin 2018- No 4 Daily [facility] Sodium Sodium 05 [facility] 00:00 Patient :00 [facility] Carvedilol Carvedilol 2018- No 12.[address] [facility] 06-05 [facility] 00:[facility] Patient :00 [facility] Cholestyram Cholestyram 2018- No [address] ine (With ine (With 03-15 [facility] Sugar) Sugar) 00:00 Patient (Questran (Questran :00 Medic al Packet) 4 Packet) Amanda manriquez Gm PACKET Gm PACKET Folic Acid Folic Acid 2017- No [facility] Glimepiride Glimepiride 2017- No [address] [facility] 05-05 [facility] 00[facility]00 [facility] Lisinopril Lisinopril 2017- No [address] 05[facility]05 [facility]00 [facility] Pravastatin Pravastatin No [address] Sodium Sodium 05-05 [facility] 00:[facility] :00 [facility] Thyroid Thyroid 2018- No [address] [facility] [place] [facility]05 [facility] Thyroid) 90 Thyroid) 90 00:00 Patient Mg TABLET Mg TABLET :00 Medic al Center Duloxetine Duloxetine No [address] [facility] Hcl 05-05 [facility] (Cymbalta) (Cymbalta) 00:00 Pa tient 60 Mg 60 Mg :00 Medical CAPSULE. CAPSULE.DR Ramses wren Enoxaparin Enoxaparin No [address] Sodium Sodium -15 [facility] (Lovenox) (Lovenox) 00:00 Ev ent 120 Mg/0.8 120 Mg/0.8 :00 Med ical Ml Ml Center DISP.SYRIN DISP.SYRIN Cavedilol Cavedilol [facility] 06 [facility] 00:[facility] :00 [facility] Immunizations Ordered Immunization Filled Immunization Date Status Commen ts Source Name Name Influenza Quad-PF 2021-07-20 Completed [facility] 00:00:00 of Medicine Influenza Quad-PF 2021-07-20 Completed [facility] 00:00:00 of Medicine Influenza Quad-PF 2021-07-20 Completed [facility] 00:00:00 of Medicine Influenza Quad-PF 2021-07-20 Completed [facility] 00:00:00 of Medicine Pfizer SARS-CoV-2 2020-12-26 Completed [facility] Vaccination 00:00:00 of Medicine Pfizer SARS-CoV-2 2020-12-26 Completed [facility] Vaccination 00:00:00 of Medicine Pfizer SARS-CoV-2 2020-12-26 Completed [facility] Vaccination 00:00:00 of Medicine Pfizer SARS-CoV-2 2020-12-26 Completed [facility] Vaccination 00:00:00 of Medicine Pfizer SARS-CoV-2 2020-12-26 Completed [facility] Vaccination 00:00:00 of Medicine Pfizer SARS-CoV-2 2020-12-26 Completed [facility] Vaccination 00:00:00 of Medicine Pfizer SARS-CoV-2 2020-12-26 Completed [facility] Vaccination 00:00:00 of Medicine Pfizer SARS-CoV-2 2020-12-26 Completed [facility] Vaccination 00:00:00 of Medicine Pfizer SARS-CoV-2 2020-12-26 Completed [facility] Vaccination 00:00:00 of Medicine Pfizer SARS-CoV-2 2020-12-26 Completed [facility] Vaccination 00:00:00 of Medicine Pfizer SARS-CoV-2 2020-12-26 Completed [facility] Vaccination 00:00:00 of Medicine Zoster Recombinant 2020-07-29 Completed [facility] 00:00:00 of Medicine Zoster Recombinant 2020-07-29 Completed [facility] 00:00:00 of Medicine Zoster Recombinant 2020-07-29 Completed [facility] 00:00:00 of Medicine Zoster Recombinant 2020-07-29 Completed [facility] 00:00:00 of Medicine Zoster Recombinant 2020-07-29 Completed [facility] 00:00:00 of Medicine Zoster Recombinant 2020-07-29 Completed [facility] 00:00:00 of Medicine Zoster Recombinant 2020-07-29 Completed [facility] 00:00:00 of Medicine Zoster Recombinant 2020-07-29 Completed [facility] 00:00:00 of Medicine Zoster Recombinant 2020-07-29 Completed [facility] 00:00:00 of Medicine Hepatitis B 2020-06-04 [facility] Hepatitis B 2020-06-04 [facility] Hepatitis B 2020-06-04 [facility]:00 [facility] Medicine Hepatitis B 2020-06-04 [facility] 00:[facility]:00 of Medicine Hepatitis B 2020-06-04 [facility] 00:00:00 of Medicine Hepatitis B 2020-06-04 Completed [facility] 00:[facility]:00 of Medicine Hepatitis B 2020-06-04 Completed [facility] 00:[facility]:00 of Medicine Hepatitis B 2020-06-04 Completed [facility] 00:00:00 of Medicine Hepatitis B 2020-06-04 Completed [facility] 00:[facility]:00 of [facility] Influenza (whole) 2020-05-21 Completed [facility] 00:00:00 of Medicine Influenza (whole) 2020-05-21 Completed [facility] 00:00:00 of Medicine Influenza (whole) 2020-05-21 Completed [facility] 00:00:00 of Medicine Influenza (whole) 2020-05-21 Completed [facility] 00:00:00 of Medicine Influenza (whole) 2020-05-21 Completed [facility] 00:00:00 of Medicine Influenza (whole) 2020-05-21 Completed [facility] 00:00:00 of Medicine Influenza (whole) 2020-05-21 Completed [facility] 00:00:00 of Medicine Influenza (whole) 2020-05-21 Completed [facility] 00:00:00 of Medicine Influenza (whole) 2020-05-21 Completed [facility] 00:00:00 of Medicine Influenza Virus 2020-05-21 [facility]pleted [facility] - Whole 00:00:00 [facility] Influenza Virus 2020-05-21 Completed [facility] Vaccine - Whole 00:00:00 [facility] Influenza Virus 2020-05-21 Completed [facility] Vaccine - Whole 00:00:00 [facility] Influenza Virus 2020-05-21 Completed [facility] Vaccine - Whole 00:00:00 [facility] Influenza Virus 2020-05-21 Completed [facility] Vaccine - Whole 00:00:00 [facility] Influenza Quad-PF 2020-05-19 Completed [facility] 00:00:00 of Medicine Influenza Quad-PF 2020-05-19 Completed [facility] 00:00:00 of Medicine Influenza Quad-PF 2020-05-19 Completed [facility] 00:00:00 of Medicine Influenza Quad-PF 2020-05-19 Completed [facility] 00:00:00 of Medicine Influenza Quad-PF 2020-05-19 Completed [facility] 00:00:00 of Medicine Influenza Quad-PF 2020-05-19 Completed [facility] 00:00:00 of Medicine Influenza Quad-PF 2020-05-19 Completed [facility] 00:00:00 of Medicine Influenza Quad-PF 2020-05-19 Completed [facility] 00:00:00 of Medicine Influenza Quad-PF 2020-05-19 Completed [facility] 00:00:00 of Medicine Influenza Quad-PF 2020-05-19 Completed [facility] 00:00:00 of Medicine Influenza Quad-PF 2020-05-19 Completed [facility] 00:00:00 of Medicine Influenza Quad-PF 2020-05-19 Completed [facility] 00:00:00 of Medicine Influenza Quad-PF 2020-05-19 Completed [facility] 00:00:00 of Medicine Influenza Quad-PF 2020-05-19 Completed [facility] 00:00:00 of Medicine Pneumococcal 2020-05-06 Completed [facility] 13-[facility]ent Conjugate 00:00:00 of Me dicine Vaccine Pneumococcal 2020-05-06 Completed [facility] 13-valent Conjugate 00:00:00 of Me dicine Vaccine Pneumococcal 2020-05-06 Completed [facility] 13-valent Conjugate 00:00:00 of Me dicine Vaccine Pneumococcal 2020-05-06 Completed [facility] 13-valent Conjugate 00:00:00 of Me dicine Vaccine Pneumococcal 2020-05-06 Completed [facility] 13-valent Conjugate 00:00:00 of Me dicine Vaccine Pneumococcal 2020-05-06 Completed [facility]ent Conjug[facility] 00:00:00 of Me dicine Vaccine Hepatitis B 2020-05-06 [facility] Pneumococcal 2020-05-06 Completed [facility]ent Conjugate 00:00:00 of Me dicine Vaccine Hepatitis B 2020-05-06 [facility]:00 of [facility] Pneumococcal 2020-05-06 Completed [facility]ent Conjugate 00:00:00 of Me dicine Vaccine Hepatitis B 2020-05-06 Completed [facility] 00:[facility]:00 of Medicine Pneumococcal 2020-05-06 Completed [facility] 13-valent Conjugate 00:00:00 of Me dicine Vaccine Hepatitis B 2020-05-06 Completed [facility] 00:[facility]:00 of Medicine Pneumococcal 2020-05-06 Completed [facility] 13-valent Conjugate 00:00:00 of Me dicine Vaccine Hepatitis B 2020-05-06 Completed [facility] 00:[facility]:00 of Medicine Pneumococcal 2020-05-06 Completed [facility] 13-[facility]ent Conjugate 00:00:00 of Me dicine Vaccine Hepatitis B 2020-05-06 Completed [facility] 00:[facility]:00 of Medicine Pneumococcal 2020-05-06 Completed [facility] 13-[facility]ent Conjugate 00:00:00 of Me dicine Vaccine Hepatitis B 2020-05-06 Completed [facility] 00:[facility]:00 of Medicine Pneumococcal 2020-05-06 Completed [facility] 13-[facility]ent Conjugate 00:00:00 of Me dicine Vaccine Hepatitis B 2020-05-06 Completed [facility] 00:[facility]:00 of Medicine Pneumococcal 2020-05-06 Completed [facility] 13-[facility]ent Conjugate 00:00:00 of Me dicine Vaccine Hepatitis B 2020-05-06 Completed [facility] 00:[facility]:00 [facility] Medicine Pneumococcal 13 2020-05-06 Completed [facility] Conjugate, PCV13 00:00:00 [facility] dical (Prevnar 13) Branch HEPLISAV HEP B, ADULT 2020-05-06 Completed Uni versity of 2 DOSE, IM 00:00:00 [facility] Pneumococcal 13 2020-05-06 Completed [facility] of Conjugate, PCV13 00:00:00 [facility] dical (Prevnar 13) Branch HEPLISAV HEP B, ADULT 2020-05-06 Completed Uni versity of 2 DOSE, IM 00:00:00 [facility] Pneumococcal 13 2020-05-06 Completed [facility] of Conjugate, PCV13 00:00:00 [facility] dical (Prevnar 13) Branch HEPLISAV HEP B, ADULT 2020-05-06 Completed Uni versity of 2 DOSE, IM 00:00:00 [facility] Pneumococcal 13 2020-05-06 Completed [facility] of Conjugate, PCV13 00:00:00 [facility] dical (Prevnar 13) Branch HEPLISAV HEP B, ADULT 2020-05-06 Completed Uni versity of 2 DOSE, IM 00:00:00 [facility] Pneumococcal 13 2020-05-06 Completed [facility] of Conjugate, PCV13 00:00:00 [facility] dical (Prevnar 13) Branch HEPLISAV HEP B, ADULT 2020-05-06 Completed Uni versity of 2 DOSE, IM 00:00:00 [facility] Pneumococcal 2020-04-30 Completed [facility] Polys[facility] 00:00:00 of Medicin e Hepatitis B 2020-04-30 [facility] 00[facility] of Medicine Pneumococcal 2020-04-30 [facility]pleted [facility] Polys[facility] 00:00:00 of Medicin e Hepatitis B 2020-04-30 Completed [facility] 00:[facility]:00 of Medicine Pneumococcal 2020-04-30 Completed [facility] Polysaccharide 00:00:00 of Medicin e Hepatitis B 2020-04-30 Completed [facility] 00:00:00 of Medicine Pneumococcal 2020-04-30 Completed [facility] Polysaccharide 00:00:00 of Medicin e Hepatitis B 2020-04-30 Completed [facility] 00:00:00 of Medicine Pneumococcal 2020-04-30 Completed [facility] Polysaccharide 00:00:00 of Medicin e Hepatitis B 2020-04-30 Completed [facility] 00:00:00 of Medicine Pneumococcal 2020-04-30 Completed [facility] Polysaccharide 00:00:00 of Medicin e Hepatitis B 2020-04-30 [facility]pleted [facility] 00:[facility]:00 of Medicine Pneumococcal 2020-04-30 Completed [facility] Polysaccharide 00:00:00 of Medicin e Hepatitis B 2020-04-30 Completed [facility] 00:00:00 of Medicine Pneumococcal 2020-04-30 Completed [facility] Polysaccharide 00:00:00 of Medicin e Hepatitis B 2020-04-30 [facility]pleted [facility] 00:00:00 of Medicine Pneumococcal 2020-04-30 Completed [facility] Polysaccharide 00:00:00 of Medicin e Hepatitis B 2020-04-30 [facility] 00:[facility] of Medicine Influenza (whole) 2019-08-11 Completed [facility] 00:00:00 of Medicine Influenza (whole) 2019-08-11 Completed [facility] 00:00:00 of Medicine Influenza (whole) 2019-08-11 Completed [facility] 00:00:00 of Medicine Influenza (whole) 2019-08-11 Completed [facility] 00:00:00 of Medicine Influenza (whole) 2019-08-11 Completed [facility] 00:00:00 of Medicine Influenza (whole) 2019-08-11 Completed [facility] 00:00:00 of Medicine Influenza (whole) 2019-08-11 Completed [facility] 00:00:00 of Medicine Influenza (whole) 2019-08-11 Completed [facility] 00:00:00 of Medicine Influenza (whole) 2019-08-11 Completed [facility] 00:00:00 of Medicine Influenza (whole) 2019-08-11 Completed [facility] 00:00:00 of Medicine Influenza (whole) 2019-08-11 Completed [facility] 00:00:00 of Medicine Influenza (whole) 2019-08-11 Completed [facility] 00:00:00 of Medicine Influenza (whole) 2019-08-11 Completed [employer] 00:00:00 of Medicine Influenza (whole) 2019-08-11 Completed [employer] 00:00:00 of Medicine Influenza (whole) 2019-08-11 Completed [facility] [employer] 00:00:00 of Medicine Influenza (whole) 2019-08-11 Completed [facility] [employer] 00:00:00 of Medicine Influenza (whole) 2019-08-11 Completed [facility] [employer] 00:00:00 of Medicine Influenza (whole) 2019-08-11 Completed [facility] 00:00:00 of Medicine Influenza (whole) 2019-08-11 Completed [facility] [employer] 00:00:00 of Medicine Influenza (whole) 2019-08-11 Completed [facility] [employer] 00:00:00 of Medicine Influenza (whole) 2019-08-11 Completed [facility] [employer] 00:00:00 of Medicine Influenza (whole) 2019-08-11 Completed [facility] [employer] 00:00:00 of Medicine Influenza (whole) 2019-08-11 Completed [facility] 00:00:00 of Medicine Influenza (whole) 2019-08-11 Completed [facility] 00:00:00 of Medicine Influenza (whole) 2019-08-11 Completed [employer] 00:00:00 of Medicine Influenza (whole) 2019-08-11 Completed [facility] 00[facility]00:00 of Medicine Influenza (whole) 2019-08-11 Completed [facility] 00:00:00 of Medicine Influenza (whole) 2019-08-11 Completed [facility] 00:00:00 of Medicine Influenza (whole) 2019-08-11 Completed [facility] 00:00:00 of Medicine Influenza (whole) 2019-08-11 Completed [facility] [employer] 00:00:00 of Medicine Influenza (whole) 2019-08-11 Completed [facility] [employer] 00:00:00 of Medicine Influenza (whole) 2019-08-11 Completed [facility] [employer] 00:00:00 of Medicine Zoster Recombinant 2019-08-05 Completed [facility] 00:00:00 of Medicine Zoster Recombinant 2019-08-05 Completed [facility] [employer] 00:00:00 of Medicine Zoster Recombinant 2019-08-05 Completed [facility] 00:00:00 of Medicine Zoster Recombinant 2019-08-05 Completed [facility] 00:00:00 of Medicine Zoster Recombinant 2019-08-05 Completed [facility] 00:00:00 of Medicine Zoster Recombinant 2019-08-05 Completed [facility] [employer] 00:00:00 of Medicine Zoster Recombinant 2019-08-05 Completed [facility] 00:00:00 of Medicine Zoster Recombinant 2019-08-05 Completed [facility] 00:00:00 of Medicine Zoster Recombinant 2019-08-05 Completed [facility] 00:00:00 of Medicine Zoster Recombinant 2019-08-05 Completed [facility] 00:00:00 of Medicine Zoster Recombinant 2019-08-05 Completed [facility] 00:00:00 of Medicine Zoster Recombinant 2019-08-05 Completed [facility] 00:00:00 of Medicine Zoster Recombinant 2019-08-05 Completed [facility] 00:00:00 of Medicine Zoster Recombinant 2019-08-05 Completed [facility] 00:00:00 of Medicine Zoster Recombinant 2019-08-05 Completed [facility] 00:00:00 of Medicine Zoster Recombinant 2019-08-05 Completed [facility] 00:00:00 of Medicine Zoster Recombinant 2019-08-05 Completed [facility] 00:00:00 of Medicine Zoster Recombinant 2019-08-05 Completed [facility] 00:00:00 of Medicine Zoster Recombinant 2019-08-05 Completed [facility] 00:00:00 of Medicine Zoster Recombinant 2019-08-05 Completed [facility] 00:00:00 of Medicine Zoster Recombinant 2019-08-05 Completed [facility] 00:00:00 of Medicine Zoster Recombinant 2019-08-05 Completed [facility] 00:00:00 of Medicine Zoster Recombinant 2019-08-05 Completed [facility] 00:00:00 of Medicine Zoster Recombinant 2019-08-05 Completed [facility] 00:00:00 of Medicine Zoster Recombinant 2019-08-05 Completed [facility] 00:00:00 of Medicine Zoster Recombinant 2019-08-05 Completed [facility] 00:00:00 of Medicine Zoster Recombinant 2019-08-05 Completed [facility] 00:00:00 of Medicine Zoster Recombinant 2019-08-05 Completed [facility] 00:00:00 of Medicine Zoster Recombinant 2019-08-05 Completed [facility] 00:00:00 of Medicine Zoster Recombinant 2019-08-05 Completed [facility] 00:00:00 of Medicine Zoster Recombinant 2019-08-05 Completed [facility] 00:00:00 of Medicine Zoster Recombinant 2019-08-05 Completed [facility] 00:00:00 of Medicine Influenza Quad-PF 2019-07-20 Completed [facility] 00:00:00 of Medicine Influenza Quad-PF 2019-07-20 Completed [facility] 00:00:00 of Medicine Influenza Quad-PF 2019-07-20 Completed [facility] 00:00:00 of Medicine Influenza Quad-PF 2019-07-20 Completed [facility] 00:00:00 of Medicine Influenza Quad-PF 2019-07-20 Completed [facility] 00:00:00 of Medicine Influenza Quad-PF 2019-07-20 Completed [facility] 00:00:00 of Medicine Influenza Quad-PF 2019-07-20 Completed [facility] 00:00:00 of Medicine Influenza Quad-PF 2019-07-20 Completed [facility] 00:00:00 of Medicine Influenza Quad-PF 2019-07-20 Completed [facility] 00:00:00 of Medicine Influenza Quad-PF 2019-07-20 Completed [facility] 00:00:00 of Medicine Influenza Quad-PF 2019-07-20 Completed [facility] 00:00:00 of Medicine Influenza Quad-PF 2019-07-20 Completed [facility] 00[facility]00:00 of Medicine Influenza Quad-PF 2019-07-20 Completed [facility] 00:00:00 of Medicine Influenza Quad-PF 2019-07-20 Completed [facility] 00:00:00 of Medicine Influenza Quad-PF 2019-07-20 Completed [facility] 00:00:00 of Medicine Influenza Quad-PF 2019-07-20 Completed [facility] 00:00:00 of Medicine Influenza Quad-PF 2019-07-20 Completed [facility] 00[facility]00:00 of Medicine Influenza Quad-PF 2019-07-20 Completed [facility] 00:00:00 of Medicine Influenza Quad-PF 2019-07-20 Completed [facility] 00:00:00 of Medicine Influenza Quad-PF 2019-07-20 Completed [facility] 00:00:00 of Medicine Influenza Quad-PF 2019-07-20 Completed [facility] 00:00:00 of Medicine Influenza Quad-PF 2019-07-20 Completed [facility] 00:00:00 of Medicine Influenza Quad-PF 2019-07-20 Completed [facility] 00:00:00 of Medicine Influenza Quad-PF 2019-07-20 Completed [facility] 00:00:00 of Medicine Influenza Quad-PF 2019-07-20 Completed [facility] 00:00:00 of Medicine Influenza Quad-PF 2019-07-20 Completed [facility] 00:00:00 of Medicine Influenza Quad-PF 2019-07-20 Completed [employer] 00:00:00 of Medicine Influenza Quad-PF 2019-07-20 Completed [employer] 00[facility]00:00 of Medicine Influenza Quad-PF 2019-07-20 Completed [employer] 00:00:00 of Medicine Influenza Quad-PF 2019-07-20 Completed [employer] 00:00:00 of Medicine Influenza Quad-PF 2019-07-20 Completed [employer] 00:00:00 of Medicine Influenza Quad-PF 2019-07-20 Completed [employer] 00:00:00 of Medicine Zoster Live 2019-05-11 Completed [employer] 00:00:00 of Medicine Zoster Live 2019-05-11 Completed [employer] 00:00:00 of Medicine Zoster Live 2019-05-11 Completed [employer] 00:00:00 of Medicine Zoster Live 2019-05-11 Completed [employer] 00:00:00 of Medicine Zoster Live 2019-05-11 Completed [employer] 00:00:00 of Medicine Zoster Live 2019-05-11 Completed [employer] 00:00:00 of Medicine Zoster Live 2019-05-11 Completed [employer] 00:00:00 of Medicine Zoster Live 2019-05-11 Completed [employer] 00:00:00 of Medicine Zoster Live 2019-05-11 Completed [employer] 00:00:00 of Medicine Zoster(Zostavax)(Rincon 2019-05-11 Completed [facility]) 00:00:00 [facility] Zoster(Zostavax)(Rincon 2019-05-11 Completed [facility] gles) 00:00:00 [facility] Zoster(Zostavax)(Rincon 2019-05-11 Completed [facility] g[facility]) 00:00:00 [facility] Zoster(Zostavax)(Rincon 2019-05-11 Completed [facility]) 00:00:00 [facility] Zoster(Zostavax)(Rincon 2019-05-11 Completed [facility] gles) 00:00:00 [facility] Pneumococcal 2019-04-27 Completed [employer] [facility] 00:00:00 of Medicin e Zoster Live 2019-04-27 Completed [employer] 00:00:00 of Medicine Pneumococcal 2019-04-27 Completed [employer] [facility] 00:00:00 of Medicin nai Arreola Live 2019-04-27 Completed [employer] 00:00:00 of Medicine Pneumococcal 2019-04-27 Completed [employer] [facility] 00:00:00 of Medicin nai Arreola Live 2019-04-27 Completed [employer] 00:00:00 of Medicine Pneumococcal 2019-04-27 Completed [employer] [facility] 00:00:00 of Medicin nai Arreola Live 2019-04-27 Completed [employer] 00:00:00 of Medicine Pneumococcal 2019-04-27 Completed [employer] [facility] 00:00:00 of Medicin nai Arreola Live 2019-04-27 Completed [employer] 00:00:00 of Medicine Pneumococcal 2019-04-27 Completed [employer] [facility] 00:00:00 of Medicin nai Arreola Live 2019-04-27 Completed [employer] 00:00:00 of Medicine Pneumococcal 2019-04-27 Completed [employer] 00:00:00 of Medicin nai Arreola Live 2019-04-27 Completed [employer] 00:00:00 of Medicine Pneumococcal 2019-04-27 Completed [employer] [facility] 00:00:00 of Medicin nai Arreola Live 2019-04-27 Completed [employer] 00:00:00 of Medicine Pneumococcal 2019-04-27 Completed [employer] 00:00:00 of Medicin nai Arreola Live 2019-04-27 Completed [employer] 00:00:00 of Medicine Pneumococcal 2019-04-27 Completed [employer] [facility] 00:00:00 of Medicin nai Arreola Live 2019-04-27 Completed [employer] 00:00:00 of Medicine Pneumococcal 2019-04-27 Completed [employer] 00:00:00 of Medicin nai Arreola Live 2019-04-27 Completed [employer] 00:00:00 of Medicine Pneumococcal 2019-04-27 Completed [employer] 00:00:00 of Medicin nai Arreola Live 2019-04-27 Completed [employer] 00:00:00 of Medicine Pneumococcal 2019-04-27 Completed [employer] [facility] 00:00:00 of Medicin nai Arreola Live 2019-04-27 Completed [employer] 00:00:00 of Medicine Pneumococcal 2019-04-27 Completed [employer] 00:00:00 of Medicin nai Arreola Live 2019-04-27 Completed [employer] 00:00:00 of Medicine Pneumococcal 2019-04-27 Completed [employer] 00:00:00 of Medicin nai Arreola Live 2019-04-27 Completed [employer] 00:00:00 of Medicine Pneumococcal 2019-04-27 Completed [employer] [facility] 00:00:00 of Medicin nai Arreola Live 2019-04-27 Completed [employer] 00:00:00 of Medicine Pneumococcal 2019-04-27 Completed [employer] 00:00:00 of Medicin nai Arreola Live 2019-04-27 Completed [employer] 00:00:00 of Medicine Pneumococcal 2019-04-27 Completed [employer] [facility] 00:00:00 of Medicin nai Arreola Live 2019-04-27 Completed [employer] 00:00:00 of Medicine Pneumococcal 2019-04-27 Completed [employer] 00:00:00 of Medicin nai Arreola Live 2019-04-27 Completed [employer] 00:00:00 of Medicine Pneumococcal 2019-04-27 Completed [employer] [facility] 00:00:00 of Medicin nai Arreola Live 2019-04-27 Completed [employer] 00:00:00 of Medicine Pneumococcal 2019-04-27 Completed [employer] [facility] 00:00:00 of Medicin nai Arreola Live 2019-04-27 Completed [employer] 00:00:00 of Medicine Pneumococcal 2019-04-27 Completed [employer] [facility] 00:00:00 of Medicin nai Arreola Live 2019-04-27 Completed [employer] 00:00:00 of Medicine Pneumococcal 2019-04-27 Completed [employer] [facility] 00:00:00 of Medicin nai Arreola Live 2019-04-27 Completed [employer] 00:00:00 of Medicine Pneumococcal 2019-04-27 Completed [employer] 00:00:00 of Medicin nai Arreola Live 2019-04-27 Completed [employer] 00:00:00 of Medicine Pneumococcal 2019-04-27 Completed [employer] [facility] 00:00:00 of Medicin nai Arreola Live 2019-04-27 Completed [employer] 00:00:00 of Medicine Pneumococcal 2019-04-27 Completed [employer] 00:00:00 of Medicin nai Arreola Live 2019-04-27 Completed [employer] 00:00:00 of Medicine Pneumococcal 2019-04-27 Completed [employer] [facility] 00:00:00 of Medicin nai Arreola Live 2019-04-27 Completed [employer] 00:00:00 of Medicine Pneumococcal 2019-04-27 Completed [employer] [facility] 00:00:00 of Medicin nai Arreola Live 2019-04-27 Completed [employer] 00:00:00 of Medicine Pneumococcal 2019-04-27 Completed [employer] 00:00:00 of Medicin nai Arreola Live 2019-04-27 Completed [employer] 00:00:00 of Medicine Pneumococcal 2019-04-27 Completed [employer] 00:00:00 of Medicin nai Arreola Live 2019-04-27 Completed [employer] 00:00:00 of Medicine Pneumococcal 2019-04-27 Completed [employer] [facility] 00:00:00 of Medicin nai Arreola Live 2019-04-27 Completed [employer] 00:00:00 of Medicine Pneumococcal 2019-04-27 Completed [employer] 00:00:00 of Medicin nai Arreola Live 2019-04-27 Completed [employer] 00:00:00 of Medicine Pneumococcal 2019-04-27 Completed [employer] 00:00:00 of Medicin nai Arreola Live 2019-04-27 Completed [employer] 00:00:00 of Medicine Pneumococcal 2019-04-27 Completed [employer] 00:00:00 of Medicin nai Arreola Live 2019-04-27 Completed [employer] 00:00:00 of Medicine Pneumococcal 2019-04-27 Completed [employer] 00:00:00 of Medicin nai Arreola Live 2019-04-27 Completed [employer] 00:00:00 of Medicine Pneumococcal 2019-04-27 Completed [employer] 00:00:00 of Medicin nai Arreola Live 2019-04-27 Completed [employer] 00:00:00 of Medicine Vital Signs Vital Name Observation Time Observation Value Comments Source HEIGHT 2021-05-08 06:15:00 167.6 cm WEIGHT 2021-05-08 06:15:00 116.2 kg HEIGHT 2021-05-07 10:05:00 167.6 cm WEIGHT 2021-05-07 10:05:00 111.131 kg HEIGHT 2021-03-27 09:27:00 167.6 cm WEIGHT 2021-03-27 09:27:00 113.263 kg HEIGHT 2021-03-26 09:40:00 167.6 cm WEIGHT 2021-03-26 09:40:00 113.399 kg HEIGHT 2020-02-21 00:00:00 175.3 cm WEIGHT 2020-02-21 00:00:00 115.7 kg Systolic blood 2021-08-22 14:12:00 122 mm[Hg] [facility] pressure Medicine Diastolic blood 2021-08-22 14:12:00 74 mm[Hg] [facility] Medicine Heart rate 2021-08-22 14:12:00 66 /min [facility] Body height 2021-08-22 14:12:00 170.2 cm [facility] Body weight 2021-08-22 14:12:00 111.131 kg [facility] BMI 2021-08-22 14:12:00 38.37 kg/m2 [facility] Systolic blood 2021-08-21 02:23:30 134 mm[Hg] [facility] of [facility] Diastolic blood 2021-08-21 02:23:30 70 mm[Hg] Unive rsity of [facility] Heart rate 2021-08-21 02:23:30 78 /min [facility] Respiratory rate 2021-08-21 02:23:30 18 /min [facility] Oxygen saturation in 2021-08-21 02:23:30 97 /min [facility] Arterial blood by [facility] Pulse oximetry Branch Body temperature 2021-08-20 23:15:00 36.44 Sameera [facility] Body weight 2021-08-20 23:15:[address] [facility] BMI 2021-08-20 23:15:00 38.37 kg/m2 [facility] Systolic blood 2021-08-18 17:32:00 155 mm[Hg] [facility] pressure Medicine Diastolic blood 2021-08-18 17:32:00 73 mm[Hg] [facility] Medicine Heart rate 2021-08-18 17:32:00 92 /min [facility] of Medicine Body height 2021-08-18 17:32:00 170.2 cm [facility] Body weight 2021-08-18 17:32:00 [facility] BMI 2021-08-18 17:32:00 38.37 [facility] 2021-07-21 16:16:00 102 mm[Hg] [facility] Medicine Diastolic blood 2021-07-21 16:16:00 67 mm[Hg] [facility] Medicine Heart rate 2021-07-21 16:16:00 70 /min [facility] Body temperature 2021-07-21 16:16:00 36.28 Sameera [facility] Respiratory rate 2021-07-21 16:16:00 16 /min [facility] Body weight 2021-07-21 16:16:00 114.306 kg [facility] BMI 2021-07-21 16:16:00 39.47 kg/m2 [facility] Oxygen saturation in 2021-07-21 16:16:00 95 /min [facility] Arterial blood by Medicine Pulse oximetry HEIGHT 2021-05-08 06:15:00 167.6 cm WEIGHT 2021-05-08 06:15:00 116.2 kg HEIGHT 2021-05-07 10:05:00 167.6 cm WEIGHT 2021-05-07 10:05:00 111.131 kg Systolic blood 2021-05-01 21:07:00 122 mm[Hg] [facility] Medicine Diastolic blood 2021-05-01 21:07:00 78 mm[Hg] [facility] Medicine Heart rate 2021-05-01 21:07:00 79 /min [facility] Body temperature 2021-05-01 21:07:00 37.06 Sameera [facility] Respiratory rate 2021-05-01 21:07:00 16 /min [facility] Body height 2021-05-01 21:07:00 170.2 cm [facility] Body weight 2021-05-01 21:07:00 117.3 kg [facility] of Medicine BMI 2021-05-01 21:07:00 40.50 kg/m2 [facility] of Medicine Oxygen saturation in 2021-05-01 21:07:00 98 /min [facility] of Arterial blood by Medicine Pulse oximetry Systolic blood 2021-05-01 21:07:00 122 mm[Hg] [facility] of pressure Medicine Diastolic blood 2021-05-01 21:07:00 78 mm[Hg] [facility] Medicine Heart rate 2021-05-01 21:07:00 79 /min [facility] Body temperature 2021-05-01 21:07:00 37.06 Smaeera [facility] Respiratory rate 2021-05-01 21:07:00 16 /min [facility] Body height 2021-05-01 21:07:00 170.2 [facility] Body weight 2021-05-01 21:07:00 117.3 [facility] BMI 2021-05-01 21:07:00 40.50 kg[facility]m2 [facility] Oxygen saturation in 2021-05-01 21:07:00 98 /min [facility] of Arterial blood by Medicine Pulse oximetry Systolic blood 2021-04-29 12:45:00 112 mm[Hg] [facility] Medicine Diastolic blood 2021-04-29 12:45:00 74 mm[Hg] [facility] Medicine Heart rate 2021-04-29 12:45:00 78 /min [facility] of [facility] Body temperature 2021-04-29 12:45:00 36.17 Sameera [facility] Body height 2021-04-29 12:45:00 170.2 cm [facility] of [facility] Body weight 2021-04-29 12:45:00 115.214 kg [facility] of [facility] BMI 2021-04-29 12:45:00 39.78 kg/m2 [facility] of Medicine Systolic blood 2021-04-29 12:45:00 112 mm[Hg] [facility] of pressure Medicine Diastolic blood 2021-04-29 12:45:00 74 mm[Hg] [facility] pressure Medicine Heart rate 2021-04-29 12:45:00 78 /min [facility] Body temperature 2021-04-29 12:45:00 36.17 Sameera [facility] Body height 2021-04-29 12:45:00 170.2 cm [facility] Body weight 2021-04-29 12:45:00 115.214 kg [facility] BMI 2021-04-29 12:45:00 39.78 kg/m2 [facility] Body height 2021-04-09 20:41:00 170.2 cm [facility] Body weight 2021-04-09 20:41:00 115.214 kg [facility] BMI 2021-04-09 20:41:00 39.78 kg/m2 [facility] Body height 2021-04-09 20:41:00 170.2 cm [facility] Body weight 2021-04-09 20:41:00 115.214 kg [facility] BMI 2021-04-09 20:41:00 39.78 kg/m2 [facility] HEIGHT 2021-03-27 09:27:00 167.6 cm WEIGHT 2021-03-27 09:27:00 113.263 kg HEIGHT 2021-03-26 09:40:00 167.6 cm WEIGHT 2021-03-26 09:40:00 113.399 kg Systolic blood 2021-03-26 19:17:00 130 mm[Hg] [facility] pressure Medicine Diastolic blood 2021-03-26 19:17:00 66 mm[Hg] [facility] Medicine Heart rate 2021-03-26 19:17:00 82 /min [facility] of Medicine Respiratory rate 2021-03-26 19:17:00 18 /min [facility] Body height 2021-03-26 19:17:00 170.2 cm [facility] Body weight 2021-03-26 19:17:00 115.214 kg [facility] BMI 2021-03-26 19:17:00 39.78 kg/m2 [facility] Systolic blood 2021-03-26 19:17:00 130 mm[Hg] [facility] Medicine Diastolic blood 2021-03-26 19:17:00 66 mm[Hg] [facility] Medicine Heart rate 2021-03-26 19:17:00 82 /min [facility] 2021-03-26 19:17:00 18 /min [facility] Body height 2021-03-26 19:17:00 170.2 cm [facility] Body weight 2021-03-26 19:17:00 115.214 kg [facility] BMI 2021-03-26 19:17:00 39.78 kg/m2 [facility] Systolic blood 2021-03-24 03:24:00 128 mm[Hg] Univer sity of pressure [facility] Diastolic blood 2021-03-24 03:24:00 73 mm[Hg] Unive rsity of pressure [facility] Heart rate 2021-03-24 03:24:00 92 /min [facility] Body temperature 2021-03-24 03:24:00 36.67 Sameera Univ ersity of [facility] Respiratory rate 2021-03-24 03:24:00 18 /min [facility] Oxygen saturation in 2021-03-24 03:24:00 95 /min University Arterial blood by [facility] Pulse oximetry Branch Body height 2021-03-23 23:41:00 170.2 cm [facility] Body weight 2021-03-23 23:41:00 113.399 kg [facility] BMI 2021-03-23 23:41:00 39.16 kg/m2 [facility]i ty of [facility] Systolic blood 2021-03-24 03:24:00 128 mm[Hg] Univer sity of pressure [facility] Diastolic blood 2021-03-24 03:24:00 73 mm[Hg] Unive rsity of pressure [facility] Heart rate 2021-03-24 03:24:00 92 /min [facility]i ty of [facility] Body temperature 2021-03-24 03:24:00 36.67 Sameera Univ ersity of [facility] Respiratory rate 2021-03-24 03:24:00 18 /min [facility] Oxygen saturation in 2021-03-24 03:24:00 95 /min University Arterial blood by [facility] Pulse oximetry Branch Body height 2021-03-23 23:41:00 170.2 cm Universi ty of [facility] Body weight 2021-03-23 23:41:00 113.399 kg Universi ty of [facility] BMI 2021-03-23 23:41:00 39.16 kg/m2 Universi ty [facility] Systolic blood 2021-02-19 18:25:00 128 mm[Hg] [facility] of pressure Medicine Diastolic blood 2021-02-19 18:25:00 70 mm[Hg] [facility] of pressure Medicine Heart rate 2021-02-19 18:25:00 92 /min [facility] Body height 2021-02-19 18:25:00 170.2 cm [facility] Body weight 2021-02-19 18:25:00 109.77 kg [facility] BMI 2021-02-19 18:25:00 37.90 kg/m2 [facility] Systolic blood 2021-02-19 18:25:00 128 mm[Hg] [facility] of pressure Medicine Diastolic blood 2021-02-19 18:25:00 70 mm[Hg] [facility] of pressure Medicine Heart rate 2021-02-19 18:25:00 92 /min [facility] Body height 2021-02-19 18:25:00 170.2 cm [facility] Body weight 2021-02-19 18:25:00 109.77 kg [facility] BMI 2021-02-19 18:25:00 37.90 kg/m2 [facility] HEIGHT 2021-01-21 14:21:00 170.2 cm WEIGHT 2021-01-21 14:21:00 108.863 kg HEIGHT 2021-01-21 14:21:00 170.2 cm WEIGHT 2021-01-21 14:21:00 108.863 kg WEIGHT 2021-01-11 06:00:00 114.1 kg WEIGHT 2021-01-10 23:00:00 111.6 kg HEIGHT 2021-01-10 14:38:00 170.2 cm WEIGHT 2021-01-10 14:38:00 112.492 kg WEIGHT 2021-01-11 06:00:00 114.1 kg WEIGHT 2021-01-10 23:00:00 111.6 kg HEIGHT 2021-01-10 14:38:00 170.2 cm WEIGHT 2021-01-10 14:38:00 112.492 kg HEIGHT 2020-12-26 15:20:00 175.3 cm WEIGHT 2020-12-26 15:20:00 114.034 kg HEIGHT 2020-12-26 15:20:00 175.3 cm WEIGHT 2020-12-26 15:20:00 114.034 kg Systolic blood 2020-12-19 20:31:00 116 mm[Hg] [facility] of pressure Medicine Diastolic blood 2020-12-19 20:31:00 66 mm[Hg] [facility] of pressure Medicine Heart rate 2020-12-19 20:31:00 80 /min [facility] Body height 2020-12-19 20:31:00 170.2 cm [facility] Body weight 2020-12-19 20:31:00 115.384 kg [facility] BMI 2020-12-19 20:31:00 39.84 kg/m2 [facility] Systolic blood 2020-12-19 20:31:00 116 mm[Hg] [facility] of pressure Medicine Diastolic blood 2020-12-19 20:31:00 66 mm[Hg] [facility] of pressure Medicine Heart rate 2020-12-19 20:31:00 80 /min [facility] [facility] Body height 2020-12-19 20:31:00 170.2 cm [facility] Body weight 2020-12-19 20:31:00 115.384 kg [facility] BMI 2020-12-19 20:31:00 39.84 kg/m2 [facility] Systolic blood 2020-10-01 15:24:00 113 mm[Hg] [facility] of pressure Medicine Diastolic blood 2020-10-01 15:24:00 72 mm[Hg] [facility] of pressure Medicine Heart rate 2020-10-01 15:24:00 81 /min [facility] Body height 2020-10-01 15:24:00 170.2 cm [facility] Body weight 2020-10-01 15:24:00 116.121 kg [facility] BMI 2020-10-01 15:24:00 40.10 kg/m2 [facility] Systolic blood 2020-10-01 15:24:00 113 mm[Hg] [facility] of pressure Medicine Diastolic blood 2020-10-01 15:24:00 72 mm[Hg] [facility] of pressure Medicine Heart rate 2020-10-01 15:24:00 81 /min [facility] of Medicine Body height 2020-10-01 15:24:00 170.2 cm [facility] of Medicine Body weight 2020-10-01 15:24:00 116.121 kg [facility] BMI 2020-10-01 15:24:00 40.10 kg/m2 [facility] of Medicine Systolic blood 2020-10-01 13:52:00 118 mm[Hg] [facility] of pressure Medicine Diastolic blood 2020-10-01 13:52:00 72 mm[Hg] [facility] of pressure Medicine Heart rate 2020-10-01 13:52:00 72 /min [facility] of Medicine Body temperature 2020-10-01 13:52:00 36.11 Sameera [facility] Respiratory rate 2020-10-01 13:52:00 16 /min [facility] Body height 2020-10-01 13:52:00 170.2 cm [facility] Body weight 2020-10-01 13:52:00 117.028 kg [facility] BMI 2020-10-01 13:52:00 40.41 kg/m2 [facility] of Medicine Oxygen saturation in 2020-10-01 13:52:00 98 /min [facility] Arterial blood by Medicine Pulse oximetry Systolic blood 2020-10-01 13:52:00 118 mm[Hg] [facility] of pressure Medicine Diastolic blood 2020-10-01 13:52:00 72 mm[Hg] [facility] of pressure Medicine Heart rate 2020-10-01 13:52:00 72 /min [facility] Body temperature 2020-10-01 13:52:00 36.11 Sameera [facility] Respiratory rate 2020-10-01 13:52:00 16 /min [facility] Body height 2020-10-01 13:52:00 170.2 cm [facility] Body weight 2020-10-01 13:52:00 117.028 kg [facility] BMI 2020-10-01 13:52:00 40.41 kg/m2 [facility] of Medicine Oxygen saturation in 2020-10-01 13:52:00 98 /min [facility] of Arterial blood by Medicine Pulse oximetry Systolic blood 2020-09-26 18:56:00 108 mm[Hg] [facility] of pressure Medicine Diastolic blood 2020-09-26 18:56:00 71 mm[Hg] [facility] of pressure Medicine Heart rate 2020-09-26 18:56:00 75 /min [facility] Body height 2020-09-26 18:56:00 170.2 cm [facility] Body weight 2020-09-26 18:56:00 116.121 kg [facility] BMI 2020-09-26 18:56:00 40.10 kg/m2 [facility] Systolic blood 2020-09-26 18:56:00 108 mm[Hg] [facility] of pressure Medicine Diastolic blood 2020-09-26 18:56:00 71 mm[Hg] [facility] of pressure Medicine Heart rate 2020-09-26 18:56:00 75 /min [facility] Body height 2020-09-26 18:56:00 170.2 cm [facility] Body weight 2020-09-26 18:56:00 116.121 kg [facility] BMI 2020-09-26 18:56:00 40.10 kg/m2 [facility] Systolic blood 2020-09-23 19:29:00 124 mm[Hg] [facility] pressure Medicine Diastolic blood 2020-09-23 19:29:00 74 mm[Hg] [facility] pressure Medicine Heart rate 2020-09-23 19:29:00 85 /min [facility] Respiratory rate 2020-09-23 19:29:00 18 /min [facility] Body height 2020-09-23 19:29:00 167.6 cm [facility] Body weight 2020-09-23 19:29:00 116.302 kg [facility] BMI 2020-09-23 19:29:00 41.38 kg/m2 [facility] Systolic blood 2020-09-23 19:29:00 124 mm[Hg] [facility] pressure Medicine Diastolic blood 2020-09-23 19:29:00 74 mm[Hg] [facility] Medicine Heart rate 2020-09-23 19:29:00 85 /min [facility] Respiratory rate 2020-09-23 19:29:00 18 /min [facility] Body height 2020-09-23 19:29:00 167.6 cm [facility] Body weight 2020-09-23 19:29:00 116.302 kg [facility] BMI 2020-09-23 19:29:00 41.38 kg/m2 [facility] Systolic blood 2020-08-28 17:46:00 112 mm[Hg] [facility] pressure Medicine Diastolic blood 2020-08-28 17:46:00 60 mm[Hg] [facility] Medicine Heart rate 2020-08-28 17:46:00 83 /min [facility] Respiratory rate 2020-08-28 17:46:00 16 /min [facility] Body height 2020-08-28 17:46:00 167.6 cm [facility] Systolic blood 2020-08-28 17:46:00 112 mm[Hg] [facility] pressure Medicine Diastolic blood 2020-08-28 17:46:00 60 mm[Hg] [facility] pressure Medicine Heart rate 2020-08-28 17:46:00 83 /min [facility] Respiratory rate 2020-08-28 17:46:00 16 /min [facility] Body height 2020-08-28 17:46:00 167.6 cm [facility] Heart rate 2020-06-26 18:41:00 83 /min [facility] Respiratory rate 2020-06-26 18:41:00 16 /min [facility] Body height 2020-06-26 18:41:00 167.6 cm [facility] Body weight 2020-06-26 18:41:00 116.121 kg [facility] BMI 2020-06-26 18:41:00 41.32 kg/m2 [facility] Heart rate 2020-06-26 18:41:00 83 /min [facility] Respiratory rate 2020-06-26 18:41:00 16 /min [facility] Body height 2020-06-26 18:41:00 167.6 cm [facility] Body weight 2020-06-26 18:41:00 116.121 kg [facility] BMI 2020-06-26 18:41:00 41.32 kg/m2 [facility] Respiratory rate 2020-06-24 21:22:00 20 /min [facility] Body height 2020-06-24 21:22:00 167.6 cm [facility] Body weight 2020-06-24 21:22:00 116.756 kg [facility] BMI 2020-06-24 21:22:00 41.55 kg/m2 [facility] Respiratory rate 2020-06-24 21:22:00 20 /min [facility] Body height 2020-06-24 21:22:00 167.6 cm [facility] Body weight 2020-06-24 21:22:00 116.756 kg [facility] BMI 2020-06-24 21:22:00 41.55 kg/m2 [facility] Systolic blood 2020-05-26 20:00:00 149 mm[Hg] [facility] Diastolic blood 2020-05-26 20:00:00 64 mm[Hg] [facility] Heart rate 2020-05-26 20:00:00 83 /min [facility] Body temperature 2020-05-26 20:00:00 36.56 Sameera [facility] Respiratory rate 2020-05-26 20:00:00 18 /min [facility] Oxygen saturation in 2020-05-26 20:00:00 97 /min [facility] Arterial blood by [place] [facility] Pulse oximetry Branch Body height 2020-05-25 13:02:00 170.2 cm [facility] Body weight 2020-05-25 13:02:00 119.5 kg [facility] BMI 2020-05-25 13:02:00 41.26 kg/m2 [facility] Systolic blood 2020-05-26 20:00:00 149 mm[Hg] [facility] Diastolic blood 2020-05-26 20:00:00 64 mm[Hg] [facility] pressure [facility] Heart rate 2020-05-26 20:00:00 83 /min [facility] Body temperature 2020-05-26 20:00:00 36.56 Sameera [facility] Respiratory rate 2020-05-26 20:00:00 18 /min [facility] Oxygen saturation in 2020-05-26 20:00:00 97 /min [facility] Arterial blood by [place] [facility] Pulse oximetry Branch Body height 2020-05-25 13:02:00 170.2 cm [facility] Body weight 2020-05-25 13:02:00 119.5 kg [facility] BMI 2020-05-25 13:02:00 41.26 kg/m2 [facility] HEIGHT 2020-02-21 00:00:00 175.3 cm WEIGHT 2020-02-21 00:00:00 115.7 kg Systolic blood 2020-02-28 13:55:00 119 mm[Hg] [facility] pressure Medicine Diastolic blood 2020-02-28 13:55:00 76 mm[Hg] [facility] pressure Medicine Heart rate 2020-02-28 13:55:00 74 /min [facility] Body temperature 2020-02-28 13:55:00 36.39 Sameera [facility] Body height 2020-02-28 13:55:00 167.6 cm [facility] Body weight 2020-02-28 13:55:00 114.216 kg [facility] BMI 2020-02-28 13:55:00 40.64 kg/m2 [facility] Systolic blood 2020-02-28 13:55:00 119 mm[Hg] [facility] pressure Medicine Diastolic blood 2020-02-28 13:55:00 76 mm[Hg] [facility] pressure Medicine Heart rate 2020-02-28 13:55:00 74 /min [facility] Body temperature 2020-02-28 13:55:00 36.39 Sameera [facility] Body height 2020-02-28 13:55:00 167.6 cm [facility] Body weight 2020-02-28 13:55:00 114.216 kg [facility] BMI 2020-02-28 13:55:00 40.64 kg/m2 [facility] Body height 2020-02-21 19:15:00 167.6 cm [facility] Body weight 2020-02-21 19:15:00 112.946 kg [facility] BMI 2020-02-21 19:15:00 40.19 kg/m2 [facility] Body height 2020-02-21 19:15:00 167.6 cm [facility] Body weight 2020-02-21 19:15:00 112.946 kg [facility] BMI 2020-02-21 19:15:00 40.19 kg/m2 [facility] Systolic blood 2020-02-21 16:06:00 115 mm[Hg] [facility] pressure Medicine Diastolic blood 2020-02-21 16:06:00 79 mm[Hg] [facility] pressure Medicine Heart rate 2020-02-21 16:06:00 91 /min [facility] Body temperature 2020-02-21 16:06:00 36.61 Sameera [facility] Body height 2020-02-21 16:06:00 167.6 cm [facility] Body weight 2020-02-21 16:06:00 112.946 kg [facility] BMI 2020-02-21 16:06:00 40.19 kg/m2 [facility] Systolic blood 2020-02-21 16:06:00 115 mm[Hg] [facility] pressure Medicine Diastolic blood 2020-02-21 16:06:00 79 mm[Hg] [facility] pressure Medicine Heart rate 2020-02-21 16:06:00 91 /min [facility] Body temperature 2020-02-21 16:06:00 36.61 Sameera [facility] Body height 2020-02-21 16:06:00 167.6 cm [facility] Body weight 2020-02-21 16:06:00 112[facility]46 [facility] BMI 2020-02-21 16:06:00 40.19 kg/m2 [facility] Systolic blood 2020-02-13 16:44:00 132 mm[Hg] [facility] pressure Medicine Diastolic blood 2020-02-13 16:44:00 77 mm[Hg] [facility] pressure Medicine Heart rate 2020-02-13 16:44:00 91 /min [facility] Body temperature 2020-02-13 16:44:00 36.44 Sameera [facility] Respiratory rate 2020-02-13 16:44:00 16 /min [facility] Body height 2020-02-13 16:44:00 167.6 cm [facility] Body weight 2020-02-13 16:44:00 116.302 kg [facility] BMI 2020-02-13 16:44:00 41.38 kg/m2 [facility] Oxygen saturation in 2020-02-13 16:44:00 93 /min [facility] Arterial blood by Medicine Pulse oximetry Systolic blood 2020-02-13 16:44:00 132 mm[Hg] [facility] pressure Medicine Diastolic blood 2020-02-13 16:44:00 77 mm[Hg] [facility] Medicine Heart rate 2020-02-13 16:44:00 91 /min [facility] Body temperature 2020-02-13 16:44:00 36.44 Sameera [facility] Respiratory rate 2020-02-13 16:44:00 16 /min [facility] Body height 2020-02-13 16:44:00 167.6 cm [facility] Body weight 2020-02-13 16:44:00 116.302 [facility] BMI 2020-02-13 16:44:00 41.38 kg/m2 [facility] Oxygen saturation in 2020-02-13 16:44:00 93 /min [facility] Arterial blood by Medicine Pulse oximetry Systolic blood 2019-11-28 15:25:00 116 mm[Hg] [facility] Medicine Diastolic blood 2019-11-28 15:25:00 77 mm[Hg] [facility] Medicine Heart rate 2019-11-28 15:25:00 76 /min [facility] 2019-11-28 15:25:00 36.5 Sameera [facility] Respiratory rate 2019-11-28 15:25:00 18 /min [facility] Body height 2019-11-28 15:25:00 167.6 cm [facility] Body weight 2019-11-28 15:25:00 117.3 kg [facility] BMI 2019-11-28 15:25:00 41.74 kg/m2 [facility] Oxygen saturation in 2019-11-28 15:25:00 96 /min [facility] Arterial blood by Medicine Pulse oximetry Systolic blood 2019-11-14 18:58:00 159 mm[Hg] [facility] Medicine Diastolic blood 2019-11-14 18:58:00 69 mm[Hg] [facility] Medicine Heart rate 2019-11-14 18:58:00 96 /min [facility] Body temperature 2019-11-14 18:58:00 36.5 Sameera [facility] Respiratory rate 2019-11-14 18:58:00 16 /min [facility] Body height 2019-11-14 18:58:00 167.6 cm [facility] Body weight 2019-11-14 18:58:00 117.482 kg [facility] BMI 2019-11-14 18:58:00 41.80 kg/m2 [facility] Body height 2019-11-14 16:46:00 167.6 cm [facility] Body weight 2019-11-14 16:46:00 117.482 kg [facility] BMI 2019-11-14 16:46:00 41.80 kg/m2 [facility] Systolic blood 2019-08-17 17:38:00 126 mm[Hg] [facility] pressure Medicine Diastolic blood 2019-08-17 17:38:00 67 mm[Hg] [facility] pressure Medicine Heart rate 2019-08-17 17:38:00 82 /min [facility] Body height 2019-08-17 17:38:00 167.6 cm [facility] Body weight 2019-08-17 17:38:00 121.972 kg [facility] BMI 2019-08-17 17:38:00 43.40 kg/m2 [facility] Systolic blood 2019-08-14 20:10:00 126 mm[Hg] [facility] pressure Medicine Diastolic blood 2019-08-14 20:10:00 78 mm[Hg] [facility] Medicine Heart rate 2019-08-14 20:10:00 93 /min [facility] Body height 2019-08-14 20:10:00 167.6 cm [facility] Body weight 2019-08-14 20:10:00 122.018 kg [facility] BMI 2019-08-14 20:10:00 43.42 kg/m2 [facility] BMI 2019-06-20 18:54:00 41.97 kg/m2 [facility] Systolic blood 2019-06-20 18:54:00 130 mm[Hg] [facility] pressure Medicine Diastolic blood 2019-06-20 18:54:00 70 mm[Hg] [facility] Body temperature 2019-06-20 18:54:00 36.83 Sameera [facility] Body height 2019-06-20 18:54:00 170.2 cm [facility] Body weight 2019-06-20 18:54:00 121.564 kg [facility] Systolic blood 2021-09-11 12:40:00 109 mm[Hg] [facility] Diastolic blood 2021-09-11 12:40:00 72 mm[Hg] [facility] Heart rate 2021-09-11 12:40:00 80 /min [facility] Body temperature 2021-09-11 12:40:00 36.[address] [facility] Body height 2021-09-11 12:40:00 167.6 cm [facility] Body weight 2021-09-11 12:40:00 111.766 kg [facility] BMI 2021-09-11 12:40:00 39.77 kg/m2 [facility] Oxygen saturation in 2021-09-11 12:40:00 96 /min [facility] Arterial blood by Medical Ce [facility]ter Pulse oximetry Oxygen saturation by 2021-05-08 22:00:00 96 /min [facility] Pulse oximetry Patient [facility] Oxygen saturation by 2021-05-08 20:11:00 96 /min [facility] Pulse oximetry Patient [facility] Oxygen saturation by 2021-05-08 18:46:00 99 /min [facility] Pulse oximetry Patient [facility] Oxygen saturation by 2021-05-08 17:57:00 99 /min [facility] Pulse oximetry Patient [facility] Systolic blood 2021-05-08 12:30:00 111 mm[Hg] [facility] Diastolic blood 2021-05-08 12:30:00 55 mm[Hg] [facility] Heart rate 2021-05-08 12:30:00 78 /min [facility] Body temperature 2021-05-08 12:30:00 36.[address] [facility] Respiratory rate 2021-05-08 12:30:00 20 /min [facility] Oxygen saturation in 2021-05-08 12:30:00 91 /min [facility] Arterial blood by Medical Ce ntmarycruz Pulse oximetry Body height 2021-05-08 06:15:00 167.6 cm [facility] Body weight 2021-05-08 06:15:00 116.2 kg [facility] BMI 2021-05-08 06:15:00 41.35 kg/m2 [facility] pulse rate 2020-03-19 08:16:20 81 /min [facility] blood pressure, 2020-03-19 08:16:20 77 mm[Hg] [facility] diastolic Health blood pressure, 2020-03-19 08:16:20 139 mm[Hg] [facility] systolic Health Weight 2020-03-17 22:55:00 263 [lb_av] [facility] BMI (Body Mass 2020-03-17 22:55:00 42.4 kg/m2 [facility] Index) [facility] Systolic blood 2019-11-28 17:21:00 122 mm[Hg] [facility] Medicine Diastolic blood 2019-11-28 17:21:00 69 mm[Hg] [facility] pressure Medicine Heart rate 2019-11-28 17:21:00 78 /min [facility] Respiratory rate 2019-11-28 17:21:00 16 /min [facility] Body height 2019-11-28 17:21:00 167.6 cm [facility] Body weight 2019-11-28 17:21:00 117.028 kg [facility] BMI 2019-11-28 17:21:00 41.64 kg/m2 [facility] Body temperature 2019-11-28 15:25:00 36.5 Sameera [facility] Oxygen saturation in 2019-11-28 15:25:00 96 /min [facility] Arterial blood by Medicine Pulse oximetry Systolic blood 2019-11-14 18:58:00 159 mm[Hg] [facility] pressure Medicine Diastolic blood 2019-11-14 18:58:00 69 mm[Hg] [employer] [facility] pressure Medicine Heart rate 2019-11-14 18:58:00 96 /min [facility] ollege of [facility] Body temperature 2019-11-14 18:58:00 36.5 Sameera [facility] Respiratory rate 2019-11-14 18:58:00 16 /min [facility] Body height 2019-11-14 18:58:00 167.6 cm [facility] of [facility] Body weight 2019-11-14 18:58:00 117.482 kg [facility] of [facility] BMI 2019-11-14 18:58:00 41.80 kg/m2 [facility] of [facility] Body Temperature 2019-11-06 20:06:00 98.6 [degF] [facility] Systolic blood 2019-09-20 16:40:00 134 mm[Hg] [facility] pressure Medicine Diastolic blood 2019-09-20 16:40:00 79 mm[Hg] [facility] pressure Medicine Heart rate 2019-09-20 16:40:00 93 /min [facility] of [facility] Body height 2019-09-15 15:31:00 167.6 cm [facility] Body weight 2019-09-15 15:31:00 122.925 [facility] BMI 2019-09-15 15:31:00 43.74 [facility] Respiratory rate 2019-08-30 16:00:00 16 /min [facility] Oxygen saturation in 2019-08-30 16:00:00 97 /min [facility] Arterial blood by [facility] Pulse oximetry Systolic blood 2019-07-11 14:41:00 118 mm[Hg] [facility] pressure Medicine Diastolic blood 2019-07-11 14:41:00 73 mm[Hg] [facility] pressure Medicine Heart rate 2019-07-11 14:41:00 95 /min [facility] Respiratory rate 2019-07-11 14:41:00 16 /min [facility] Body height 2019-07-11 14:41:00 167.6 cm [facility] of [facility] Body weight 2019-07-11 14:41:00 119.931 kg [facility] BMI 2019-07-11 14:41:00 42.68 kg/m2 [facility] Body temperature 2019-06-20 18:54:00 36.83 Sameera [facility] Oxygen saturation in 2018-11-23 19:03:12 96 /min [facility] Arterial blood by Medicine Pulse oximetry Procedures Procedure Date / Time Performing Clinician Source Performed CT SOFT TISSUE NECK W 2021-08-20 23:42:00 Dewayne [facility] CBC WITH DIFF 2021-08-20 23:24:00 Dewayne Nassar [facility] CONSENT/REFUSAL FOR 2021-08-20 22:39:45 Doctor Unassigned, [facility] DIAGNOSIS AND TREATMENT [facility] US ABDOMEN COMPLETE 2021-07-29 14:48:00 Bowen Joseph [facility] BASIC METABOLIC PANEL (7) 2021-07-28 13:37:00 Bowen Joseph [facility] HEPATIC FUNCTION PANEL 2021-07-28 13:37:[address] [facility] CBC W/PLT COUNT & AUTO 2021-07-28 13:37:00 Bowen Joseph [facility] PROTHROMBIN TIME/INR 2021-07-28 13:37:00 Bowen Joseph [facility] ALPHA FETOPROTEIN (AFP), 2021-07-28 13:37:00 Bowen Joseph [facility] TUMOR MARKER Center POCT-GLUCOSE METER 2021-05-08 10:52:00 Ivelisse Mares [facility] ANESTHESIA PERIPHERAL 2021-05-08 10:23:52 Archana Rivero CH I [facility] FL FLUORO NON-SPECIFIC UP 2021-05-08 10:15:00 Ivelisse Mares [facility] TO 1 HOUR Center ARTHROPLASTY,CARPOMETACAR 2021-05-08 07:35:00 Ivelisse Mares [facility] TENDON SUSPENSION Center TRANSFER,TENDON WRIST 2021-05-08 07:35:00 Ivelisse Mares [facility] STYLOIDECTOMY,RADIUS 2021-05-08 07:35:00 Ivelisse Mares [facility] PROCEDURE W/MINI C-ARM 2021-05-08 07:35:00 Ivelisse Mares [facility] POCT-GLUCOSE METER 2021-05-08 06:27:00 Ivelisse Mares [facility] PROTHROMBIN TIME/INR 2021-05-08 06:21:00 [facility] APTT 2021-05-08 06:21:00 [facility] AST (SGOT) 2021-05-08 [facility] 2021-05-08 06:21:00 Rivero [facility] Computed tomography of 2021-05-08 00:00:[address] [facility] Patient chest with contrast Medical Cent er SARS-COV2/RT-PCR ([facility] & 2021-05-06 12:47:00 Ivelisse Mares [facility] REF LABS) [place] BASIC METABOLIC PANEL 2021-05-01 22:33:00 Shanelle [place] HEPATIC FUNCTION PANEL 2021-05-01 22:33:00 Torres Timmonshra [facility] FERRITIN 2021-05-01 22:33:00 Torres Timmonshra [facility] CBC W/AUTO DIFF WITH 2021-05-01 22:33:00 Shanelle [facility] Medicine REPORT OF PROCEDURE - 2021-03-27 12:06:08 Tom Mann [facility] ENDOSCOPY [facility] TISSUE EXAM 2021-03-27 11:53:00 Tom Mann [facility] REPORT OF PROCEDURE - 2021-03-27 11:36:57 Tom Mann [facility] ENDOSCOPY [facility] COLONOSCOPY,BIOPSY 2021-03-27 11:07:00 Tom Mann [facility] UPPER ENDOSCOPY 2021-03-27 11:07:00 Tom Mann [facility] POCT-GLUCOSE METER 2021-03-27 10:11:00 Tom Mann [facility] POCT HEMOGLOBIN A1C 2021-03-26 19:57:00 Clau Ramírez [facility] CT THORAX W CONTRAST 2021-03-24 02:24:07 Katey Mosqueda [facility] BASIC METABOLIC PANEL 2021-03-24 01:44:00 Katey Mosqueda [facility] (NA, K, CL, CO2, GLUCOSE, Medica l Branch BUN, CREATININE, CA) CBC WITH DIFF 2021-03-24 01:44:00 Jaylin Katey [place] [facility] CONSENT/REFUSAL FOR 2021-03-23 22:59:41 Doctor Unassigned, [facility] DIAGNOSIS AND TREATMENT [facility] US ABDOMEN COMPLETE 2021-02-21 10:17:00 Rene Huitron [facility] POCT-GLUCOSE METER 2021-01-17 11:30:00 Gold [facility] PROTHROMBIN TIME/INR 2021-01-17 09:49:00 Gold [facility] POCT-GLUCOSE METER 2021-01-17 08:55:00 Gold [facility] CBC W/PLT COUNT & AUTO 2021-01-17 05:29:00 Gold [facility] DIFFERENTIAL Center COMPREHENSIVE METABOLIC 2021-01-17 05:29:00 Gold [facility] PANEL Center FERRITIN 2021-01-17 05:29:00 Gold [facility] Center LACTATE DEHYDROGENASE 2021-01-17 05:29:00 Gold [facility] (LDH) Center D-DIMER 2021-01-17 05:29:00 Gold [facility] C-REACTIVE PROTEIN 2021-01-17 05:29:00 Gold [facility] CBC W/PLT COUNT & AUTO 2021-01-17 05:29:00 Gold [facility] POCT-GLUCOSE METER 2021-01-16 20:13:00 Gold [facility] POCT-GLUCOSE METER 2021-01-16 16:55:00 Gold, [facility] POCT-GLUCOSE METER 2021-01-16 12:18:00 Gold [facility] POCT-GLUCOSE METER 2021-01-16 08:41:00 oGld [facility] COMPREHENSIVE METABOLIC 2021-01-16 03:32:00 Gold [facility] PANEL Center FERRITIN 2021-01-16 03:32:00 Gold [facility] LACTATE DEHYDROGENASE 2021-01-16 03:32:00 Gold [facility] [place] C-REACTIVE PROTEIN 2021-01-16 03:32:00 Gold [facility] PROTHROMBIN TIME/INR 2021-01-16 03:31:00 Gold [facility] CBC W/PLT COUNT & AUTO 2021-01-16 03:31:00 Gold [facility] D-DIMER 2021-01-16 03:31:00 Gold [facility] CBC W/PLT COUNT & AUTO 2021-01-16 03:31:00 Gold [facility] POCT-GLUCOSE METER 2021-01-15 16:45:00 Gold [facility] POCT-GLUCOSE METER 2021-01-15 12:18:00 Gold [facility] POCT-GLUCOSE METER 2021-01-15 08:29:00 Gold [facility] BASIC METABOLIC PANEL (7) 2021-01-15 05:48:00 Bailee Watson [facility] HEPATIC FUNCTION PANEL 2021-01-15 05:48:00 Bailee Watson [facility] MAGNESIUM 2021-01-15 05:48:00 Civunfarrukhntcristal [facility] Varun [place] CBC W/PLT COUNT & AUTO 2021-01-15 04:33:00 Civunigunta, [facility] CBC W/PLT COUNT & AUTO 2021-01-15 04:33:00 Civunfarrukhnta, [facility] POCT-GLUCOSE METER 2021 16:07:00 [facility] cam[facility], [facility] POCT-GLUCOSE METER 2021 12:02:00 Civunigunta, [facility] POCT-GLUCOSE METER 2021 08:01:00 Civunigunta, [facility] BASIC METABOLIC PANEL (7) 2021 03:51:00 Bailee Watson [facility] HEPATIC FUNCTION PANEL 2021 03:51:00 Bailee Watson [facility] CBC W/PLT COUNT & AUTO 2021 03:51:00 Meli Rogers [facility] CBC W/PLT COUNT & AUTO 2021 03:51:00 Meli Rogers [facility] POCT-GLUCOSE METER 2021-01-13 21:11:00 Civunigunta, [facility] POCT-GLUCOSE METER 2021-01-13 17:16:00 [facility] POCT-[facility]UCOSE METER 2021-01-13 11:26:00 Civunigunta, [facility] POCT-GLUCOSE METER 2021-01-13 07:33:00 [facility] BASIC METABOLIC PANEL (7) 2021-01-13 05:26:00 Bailee Watson [facility] HEPATIC FUNCTION PANEL 2021-01-13 05:26:00 Bailee Watson [facility] CBC W/PLT COUNT & AUTO 2021-01-13 04:00:00 Dave Antoine [facility] APTT 2021-01-13 04:00:00 Bailee Watson [facility] CBC W/PLT COUNT & AUTO 2021-01-13 04:00:00 Dave Antoine Sun[facility] POCT-GLUCOSE METER 2021-01-12 21:14:00 [facility] POCT-[facility]SE METER 2021-01-12 17:15:00 [facility] POCT-[facility]UCOSE METER 2021-01-12 12:02:00 [facility] POCT-GLUCOSE METER 2021-01-12 08:53:00 [facility] W/PLT COUNT & AUTO 2021-01-12 04:53:00 Arash Dave [facility] BASIC METABOLIC PANEL (7) 2021-01-12 04:53:00 Bailee Watson [facility] HEPATIC FUNCTION PANEL 2021-01-12 04:53:00 Bailee Watson [facility] HEMOGLOBIN A1C 2021-01-12 04:53:00 [facility] D-DIMER 2021-01-12 04:53:00 [facility] APTT 2021-01-12 04:53:00 Bailee Watson [facility] CBC W/PLT COUNT & AUTO 2021-01-12 04:53:00 Dave Antoineshar [facility] APTT 2021-01-11 23:01:00 Bailee Watson [facility] POCT-GLUCOSE METER 2021-01-11 19:47:00 [facility] POCT-GLUCOSE METER 2021-01-11 17:14:00 [facility] 2021-01-11 16:56:00 Bailee Watson [facility] POCT-GLUCOSE METER 2021-01-11 11:33:00 [facility] APTT 2021-01-11 10:05:00 Bailee Watson [place] [facility] POCT-GLUCOSE METER 2021-01-11 08:25:00 [facility] APTT 2021-01-11 02:07:00 Bailee Watson [facility] CBC W/PLT COUNT & AUTO 2021-01-11 00:58:00 Dave Antoineshar [facility] DIFFERENTIAL Center MAGNESIUM 2021-01-11 00:58:00 Jona Campos [facility] BASIC METABOLIC PANEL (7) 2021-01-11 00:58:00 Bailee Watson [place] [facility] HEPATIC FUNCTION PANEL 2021-01-11 00:58:00 Bailee Watson [facility] APTT 2021-01-11 00:58:00 Bailee Watson [place] [facility] CBC W/PLT COUNT & AUTO 2021-01-11 00:58:00 Dave Antoine [facility] APTT 2021-01-11 00:05:00 Bailee Watson [facility] POCT-GLUCOSE METER 2021-01-10 23:05:00 [facility] APTT 2021-01-10 23:03:00 Bailee Watson [facility] CT CHEST FOR PULMONARY 2021-01-10 19:15:00 Angelo [facility] EMBOLUS [facility] POCT-GLUCOSE METER 2021-01-10 18:19:00 Davida Dillon [facility] LACTIC ACID, VENOUS 2021-01-10 17:22:00 [facility] B-TYPE NATRIURETIC FACTOR 2021-01-10 15:35:00 Angelo [facility] (BNP) [facility] CRITICAL CARE 2021-01-10 15:01:08 Davida Dillon [facility] ED ECG INTERPRETATION 2021-01-10 15:01:08 [facility] [place] [facility]ST 1 VIEW PORTABLE 2021-01-10 14:37:00 Angelo [facility] / BEDSIDE [facility] BLOOD CULTURE 2021-01-10 14:34:00 [facility] W/[facility]T COUNT & AUTO 2021-01-10 14:34:00 Angelo [facility] DIFFERENTIAL [facility] LACTIC ACID, VENOUS 2021-01-10 14:34:00 Angelo [facility] COMPREHENSIVE METABOLIC 2021-01-10 14:34:00 [facility] PROTHROMBIN TIME/INR 2021-01-10 14:34:00 [facility] 2021-01-10 14:34[facility]00 [facility] I 2021-01-10 14:34:00 [facility] LACTATE DEHYDROGENASE 2021-01-10 14:34:00 [facility] C-REACTIVE PROTEIN 2021-01-10 14:34:00 [facility] BLO[facility], VENOUS 2021-01-10 14:34:00 Angelo [facility] FERRITIN 2021-01-10 14:34:00 [facility] CBC W/PLT COUNT & AUTO 2021-01-10 14:34:00 Angelo [facility] DIFFERENTIAL [facility] ECG 12-LEAD 2021-01-10 14:28:23 [facility] ECG 12-LEAD 2021-01-10 14:28:23 Unknown, Hl7 Doctor [facility] UROLOGY REPORT - SCAN 2021-01-10 00:00:00 Provider, Default [facility] REPORT OF PROCEDURE - 2021-01-10 00:00:00 Provider, Carl [facility] ENDOSCOPY SCAN Scanning Center BASIC METABOLIC PANEL (7) 2020-12-26 15:05:00 Tom Mann CH, I [facility] HEPATIC FUNCTION PANEL 2020-12-26 15:05:00 Tom Mann [facility] CBC W/PLT COUNT & AUTO 2020-12-26 15:05:00 Tom Mann [facility] PROTHROMBIN TIME/INR 2020-12-26 15:05:00 Tom Mann [facility] ALPHA FETOPROTEIN (AFP), 2020-12-26 15:05:00 Jay [facility] TUMOR MARKER Center CBC W/PLT COUNT & AUTO 2020-12-26 15:05:00 Tom Mann [facility] POCT HEMOGLOBIN A1C 2020-12-19 20:43:00 Desiree [facility] POCT HEMOGLOBIN A1C 2020-09-23 19:51:00 Desiree [facility] CRYSTALS, URINE(SLEH) 2020-08-31 18:00:00 Desiree [facility] HEMOGLOBIN A1C 2020-06-24 22:24:00 Laurie Jordan [facility] AUTHORIZATION FOR RELEASE 2020-06-13 05:01:00 Doctor Unassigned, [facility] [place] [facility] BASIC METABOLIC PANEL (7) 2020-06-05 12:53:00 Rene Huitron [facility] HEPATIC FUNCTION PANEL 2020-06-05 12:53:[address] [facility] CBC W/PLT COUNT & AUTO 2020-06-05 12:53:00 Rene Huitron [facility] PROTHROMBIN TIME/INR 2020-06-05 12:53:00 Rene Huitron [facility] ALPHA FETOPROTEIN (AFP), 2020-06-05 12:53:00 Rene Huitron [facility] TUMOR MARKER Center POCT GLUCOSE (AUTOMATED) 2020-05-26 16:20:00 EzTierra pool Uni versity [facility] POCT GLUCOSE (AUTOMATED) 2020-05-26 13:19:00 Ezzo, Ali Uni versity [facility] CBC WITH DIFF 2020-05-26 09:46:[address] [facility] POCT GLUCOSE (AUTOMATED) 2020-05-26 01:52:00 Ezcorine Ali Uni versity [facility] POCT GLUCOSE (AUTOMATED) 2020-05-25 21:31:00 Ezcorine Ali Uni versity [facility] XR KUB 2020-05-25 17:14:[address] [facility] POCT GLUCOSE (AUTOMATED) 2020-05-25 16:46:00 Ezcorine Ali Uni versity [facility] POCT GLUCOSE (AUTOMATED) 2020-05-25 13:02:00 Shar Ali Uni versity [facility] BASIC METABOLIC PANEL 2020-05-25 09:42:00 Kendal Mack [facility] [place] (NA, K, CL, CO2, GLUCOSE, Medica l Branch BUN, CREATININE, CA) CBC WITH DIFF 2020-05-25 09:42:[address] [facility] POCT GLUCOSE (AUTOMATED) 2020-05-25 01:12:00 Ezcorine Ali Uni versity [facility] POCT GLUCOSE (AUTOMATED) 2020-05-24 21:16:00 Ezzo, Ali Uni versity [facility] POCT GLUCOSE (AUTOMATED) 2020-05-24 16:00:00 Ezzo Ali Uni versity [facility] POCT GLUCOSE (AUTOMATED) 2020-05-24 12:37:00 Ezzo, Ali Uni vers[facility] MAGNESIUM 2020-05-24 10:08:00 Juan Manuel [facility] o f [facility] BASIC METABOLIC PANEL 2020-05-24 10:08:00 Kendal Mack [facility] [place] (NA, K, CL, CO2, GLUCOSE, Medica l Branch BUN, CREATININE, CA) CBC WITH DIFF 2020-05-24 10:08:[address] [facility] POCT GLUCOSE (AUTOMATED) 2020-05-24 02:04:00 EzTierra pool [facility] POCT GLUCOSE (AUTOMATED) 2020-05-23 22:09:00 Shar Tierra [facility] POCT GLUCOSE (AUTOMATED) 2020-05-23 20:51:00 Shar [facility] POCT GLUCOSE (AUTOMATED) 2020-05-23 17:08:00 Tierra Myles [facility] PHOSPHORUS 2020-05-23 10:52:00 Juan Manuel [facility] CBC WITH DIFF 2020-05-23 10:52:00 Juan Manuel [facility] LACTIC ACID WHOLE BLOOD 2020-05-23 10:52:00 Juan Manuel [facility] COVID-19 (ID NOW RAPID 2020-05-23 06:44:00 Efrain [facility] TESTING) Medical Branch CT ABDOMEN PELVIS W 2020-05-23 05:12:53 Hugh Eric [facility] CONTRAST Medical Branch URINALYSIS 2020-05-23 04:31:00 Efrain [facility] EXTRA TUBE URINE CULTURE 2020-05-23 04:31:00 Hugh Eric [facility] TROPONIN I 2020-05-23 04:03:00 Efrain [facility] COMP. METABOLIC PANEL 2020-05-23 04:03:00 Hugh Eric [facility] ([id number]) Medical Branch CBC WITH DIFF 2020-05-23 04:03:00 Efrain [facility] EKG-12 LEAD 2020-05-23 03:39:47 Efrain [facility] EKG-12 LEAD 2020-05-23 03:33:41 Efrain [facility] EMERGENCY DEPARTMENT 2020-05-22 05:01:00 Doctor Unassigned, [facility] DOCUMENTS [place] [facility] US ABDOMEN COMPLETE 2019-11-20 19:15:00 Tom Mann [facility] PROTIME-INR 2019-11-15 20:06:00 Tom Mann [facility] HEPATIC FUNCTION PANEL 2019-11-15 20:06:00 Tom Mann [facility] BASIC METABOLIC PANEL 2019-11-15 20:06:00 Tom Mann [facility] HEPATITIS B SURFACE 2019-11-15 20:06:00 Rene Huitron [facility] AFP TUMOR MARKER 2019-11-15 20:06:00 Tom Mann [facility] HEPATITIS B VIRAL DNA 2019-11-15 20:06:00 Tom Mann [facility] PCR Medicine XR FINGER RIGHT < 2 VW 2019-11-14 17:04:34 Manasa Turner [facility] CLOSTRIDIUM DIFFICILE 2019-11-03 18:22:00 Sheikh [facility]/GD WITH REFLEX TO Medicin e PCR (SCN) SCANNED ORDER 2019-11-02 06:00:00 Laurie Jordan [facility] OCT, RETINA - OU - BOTH 2019-10-17 21:17:04 Marilyn Roque [facility] EYES Medicine XR FINGER RIGHT < 2 VW 2019-09-15 16:40:51 Manasa Turner [facility] CRYOGLOBULIN 2019-08-30 16:47:00 pramod [facility] CBC W/AUTO DIFF WITH 2019-08-30 16:47:00 [facility] PLATELETS [facility] SEDIMENTATION RATE 2019-08-30 16:47:00 Neli [facility] llege of MODIFIED WESTERGREN [facility] COMPLEMENT C3 AND C4 2019-08-30 16:47:00 pramod [facility] ANTI NEUTROPHIL 2019-08-30 16:47:00 pramod [facility] ge of CYTOPLASMIC ANTIBODY [facility] COMPREHENSIVE METABOLIC 2019-08-30 16:47:00 pramod [facility] CK 2019-08-30 16:47:00 pramod [facility] ge of [facility] C-REACTIVE PROTEIN 2019-08-30 16:47:00 Neli [facility] llege of [facility] US ANK/BRAC INDICES, 2019-08-17 16:30:00 Malorie Slaughter [facility] LIP[facility] PANEL 2019-08-15 16:00:00 Adán [facility] MICROALBUMIN/CREAT URINE 2019-08-15 16:00:[address] [facility] POCT HEMOGLOBIN A1C 2019-08-14 20:50:00 Adán [facility] POCT HEMOGLOBIN A1C 2019-08-14 20:50:00 Adán [facility] SEDIMENTATION RATE 2019-07-03 17:20:00 Sheikh [facility] C-REACTIVE PROTEIN 2019-07-03 17:20:00 [facility] 2019-07-03 17:20:00 Laurie Jordan [facility] PATHOLOGY TISSUE 2019-06-22 16:04:00 Tom Mann [facility] POCT GLUCOSE 2019-06-22 14:54:00 Tom Mann [facility] PROTIME-INR 2019-06-22 14:46:00 Tom Mann [facility] BASIC METABOLIC PROFILE + 2019-06-13 14:51:00 Rene Huitron [facility] E-GFR Medicine HEPATIC FUNCTION PANEL 2019-06-13 14:51:00 Rene Huitron [facility] PROTIME-INR 2019-06-13 14:51:00 Rene Huitron [facility] CBC W/AUTO DIFF WITH 2019-06-13 14:51:00 Rene Huitron [facility] PATHOLOGY TISSUE 2019-05-26 17:15:00 Arielle Mcginnis [facility] (SCN) GI PROCEDURE 2019-05-26 00:00:00 Provider, Ofelia [facility] CBC W/AUTO DIFF WITH 2019-05-02 21:10:00 Kristyn Waters [facility] PLATELETS [place] [facility] PROTIME-INR 2019-05-02 21:10:00 Kristyn Waters [facility] HEPATIC FUNCTION PANEL 2019-05-02 21:10:00 Kristyn Waters [facility] BASIC METABOLIC PANEL 2019-05-02 21:10:[address] [facility] AFP TUMOR MARKER 2019-05-02 21:10:00 Kristyn Waters [facility] Plan of Care Planned Activity Planned Date Details Comments Source Future Scheduled 2031-03-[address] [facility] 00:00:00 malignant neoplasm Medical C enter of colon (procedure) [code = 310437802] Future Scheduled 2031-03-[address] [facility] 00:00:00 malignant neoplasm Medical C enter of colon (procedure) [code = 985655096] Future Scheduled 2031-03-[address] [facility] Test 00:00:00 malignant neoplasm Medical C enter of colon (procedure) [code = 095581951] Future Scheduled 2031-03-[address] [facility] Test 00:00:00 malignant neoplasm Medical C enter of colon (procedure) [code = 759150533] Future Scheduled 2029-01-[address] [facility] Test 00:00:00 0-64 YRS (2 of 2 - Medical C enter PPSV23) [code = PNEUMOCOCCAL VACCINE 0-64 YRS (2 of 2 - PPSV23)] Future Scheduled 2029-01-[address] [facility] Test 00:00:00 0-64 YRS (2 of 2 - Medical C enter PPSV23) [code = PNEUMOCOCCAL VACCINE 0-64 YRS (2 of 2 - PPSV23)] Future Scheduled 2023-10-[address] [facility] Test 00:00:00 (procedure) [code = [facility] [id number]] Future Scheduled 2023-10-[address] [facility] Test 00:00:00 (procedure) [code = [facility] 50882330] Future Scheduled 2023-10-[address] [facility] Test 00:00:00 (procedure) [code = [facility] 32431037] Future Scheduled 2023-10-[address] [facility] Test 00:00:00 (procedure) [code = [facility] 95145418] Future Scheduled 2021-10-[address] [facility] 00:00:00 WELLNESS (YEAR 2 or Medical Center FIRST YEAR if no IPPE) [code = MEDICARE ANNUAL WELLNESS (YEAR 2 or FIRST YEAR if no IPPE)] Future Scheduled 2021-10-[address] [facility] 00:00:00 WELLNESS (YEAR 2 or Medical Center FIRST YEAR if no IPPE) [code = MEDICARE ANNUAL WELLNESS (YEAR 2 or FIRST YEAR if no IPPE)] Future Scheduled 2021-10-01 Urine screening for [facility] Test 00:00:00 protein (procedure) Medical Center [code = 422954067] Future Scheduled 2021-10-01 Urine screening for [facility] Test 00:00:00 protein (procedure) [facility] [code = 916341195] Future Scheduled 2021-08-22 Screening for [facility] 10:15:10 malignant neoplasm of Medici ne of colon (procedure) [code = 438582143] Future Scheduled 2021-08-22 TETANUS SHOT (ADULT) [facility] Test 10:15:10 [code = TETANUS SHOT of Medi cine (ADULT)] Future Scheduled 2021-08-22 Diabetic foot [facility] 10:15:10 examination of Medicine (regime/therapy) [code = 404855688] Future Scheduled 2021-08-22 BMI FOLLOW UP PLAN [facility] Test 10:15:10 [code = BMI FOLLOW of Medici ne UP PLAN] Future Scheduled 2021-08-22 ANNUAL DIABETIC [facility] 10:15:10 RETINOPATHY of Medicine SCREENING [code = ANNUAL DIABETIC RETINOPATHY SCREENING] Future Scheduled 2021-08-22 COVID-19 Vaccine (2 [employer] [employer] Test 10:15:10 - Pfizer 3-dose of Medicine booster series) [code = COVID-19 Vaccine (2 - Pfizer 3-dose booster series)] Future Scheduled 2021-08-22 Hemoglobin A1c [facility] 10:15:10 measurement of Medicine (procedure) [code = 25007064] Future Scheduled 2021-08-22 Screening for [facility] 10:15:10 malignant neoplasm of Medici ne of breast (procedure) [code = 967600363] Future Scheduled 2021-08-22 Screening for [facility] 10:15:10 malignant neoplasm of Medici ne of cervix (procedure) [code = 701145864] Future Scheduled 2021-08-22 Pneumococcal [facility] 10:15:10 Combined (2 of 2 - of Medici ne PPSV23) [code = Pneumococcal Combined (2 of 2 - PPSV23)] Future Scheduled 2021-08-18 Screening for [facility] 12:47:58 malignant neoplasm of Medici ne of colon (procedure) [code = 500287833] Future Scheduled 2021-08-18 TETANUS SHOT (ADULT) [facility] Test 12:47:58 [code = TETANUS SHOT of Medi cine (ADULT)] Future Scheduled 2021-08-18 Diabetic foot [facility] 12:47:58 examination of Medicine (regime/therapy) [code = 470145826] Future Scheduled 2021-08-18 BMI FOLLOW UP PLAN [facility] Test 12:47:58 [code = BMI FOLLOW of Medici ne UP PLAN] Future Scheduled 2021-08-18 ANNUAL DIABETIC [facility] 12:47:58 RETINOPATHY of Medicine SCREENING [code = ANNUAL DIABETIC RETINOPATHY SCREENING] Future Scheduled 2021-08-18 COVID-19 Vaccine (2 [facility] Test 12:47:58 - Pfizer 3-dose of Medicine booster series) [code = COVID-19 Vaccine (2 - Pfizer 3-dose booster series)] Future Scheduled 2021-08-18 Hemoglobin A1c [facility] 12:47:58 measurement of Medicine (procedure) [code = 09395874] Future Scheduled 2021-08-18 Screening for [facility] 12:47:58 malignant neoplasm of Medici ne of breast (procedure) [code = 224225629] Future Scheduled 2021-08-18 Screening for [facility] 12:47:58 malignant neoplasm of Medici ne of cervix (procedure) [code = 878813955] Future Scheduled 2021-08-18 BCM AMB Pneumococcal [employer] [facility] [employer] Test 12:47:58 Combined (testing) of Medici ne (2 of 2 - PPSV23) [code = BCM AMB Pneumococcal Combined (testing) (2 of 2 - PPSV23)] Future Scheduled 2021-08-18 SR1 AND REPAIR [code 1 Occurrences [employer] Test 12:03:05 = 52124] starting of Medicine 08/18/2021 until 08/18/2022 Future Scheduled 2021-07-30 Screening for [facility] 11:02:20 malignant neoplasm of Medici ne of colon (procedure) [code = 034526904] Future Scheduled 2021-07-30 TETANUS SHOT (ADULT) [employer] [facility] Test 11:02:20 [code = TETANUS SHOT of Medi cine (ADULT)] Future Scheduled 2021-07-30 Diabetic foot [facility] 11:02:20 examination of Medicine (regime/therapy) [code = 463237642] Future Scheduled 2021-07-30 BMI FOLLOW UP PLAN [facility] Test 11:02:20 [code = BMI FOLLOW of Medici ne UP PLAN] Future Scheduled 2021-07-30 ANNUAL DIABETIC [facility] 11:02:20 RETINOPATHY of Medicine SCREENING [code = ANNUAL DIABETIC RETINOPATHY SCREENING] Future Scheduled 2021-07-30 COVID-19 Vaccine (2 [employer] [facility] 11:02:20 - Pfizer 2-dose of Medicine series) [code = COVID-19 Vaccine (2 - Pfizer 2-dose series)] Future Scheduled 2021-07-[address] [facility] Test 11:02:20 measurement of Medicine (procedure) [code = 97627025] Future Scheduled 2021-07-30 Screening for [facility] 11:02:20 malignant neoplasm of Medici ne of breast (procedure) [code = 462268149] Future Scheduled 2021-07-30 Screening for [facility] 11:02:20 malignant neoplasm of Medici ne of cervix (procedure) [code = 918839826] Future Scheduled 2021-07-30 ORT - XR WRIST RIGHT Ordered: [employer] Test 10:54:02 3 V (CHARGE ONLY) 07/30/2021 of Medicin e [code = 05986] Future Scheduled 2021-07-23 Screening for [facility] [employer] [facility] 11:15:52 malignant neoplasm of Medici ne of colon (procedure) [code = 190029283] Future Scheduled 2021-07-23 TETANUS SHOT (ADULT) [employer] Test 11:15:52 [code = TETANUS SHOT of Medi cine (ADULT)] Future Scheduled 2021-07-23 Diabetic foot [facility] 11:15:52 examination of Medicine (regime/therapy) [code = 255886356] Future Scheduled 2021-07-23 BMI FOLLOW UP PLAN [facility] Test 11:15:52 [code = BMI FOLLOW of Medici ne UP PLAN] Future Scheduled 2021-07-23 ANNUAL DIABETIC [facility] 11:15:52 RETINOPATHY of Medicine SCREENING [code = ANNUAL DIABETIC RETINOPATHY SCREENING] Future Scheduled 2021-07-23 COVID-19 Vaccine (2 [facility] Test 11:15:52 - Pfizer 2-dose of Medicine series) [code = COVID-19 Vaccine (2 - Pfizer 2-dose series)] Future Scheduled 2021-07-23 Hemoglobin A1c [facility] [employer] Test 11:15:52 measurement of Medicine (procedure) [code = 90285920] Future Scheduled 2021-07-23 Screening for [employer] [facility] 11:15:52 malignant neoplasm of Medici ne of breast (procedure) [code = 036212626] Future Scheduled 2021-07-23 Screening for [employer] [facility] 11:15:52 malignant neoplasm of Medici ne of cervix (procedure) [code = 551599810] Future Scheduled 2021-07-21 DEXA BONE DENSITY 1 Occurrences [facility] Test 11:32:58 SPINE AND HIP [code starting of Medic ine = 61280] 07/21/2021 until 07/21/2022 Future Scheduled 2021-07-[address] [facility] (procedure) [code = 75917904] Future Scheduled 2021-07-[address] [facility] (procedure) [code = 38736555] Future Scheduled 2021-06-[address] [facility] Test 00:00:00 (#1) [code = Medical Center INFLUENZA VACCINE (#1)] Future Scheduled 2021-06-[address] [facility] Test 00:00:00 (#1) [code = Medical Center INFLUENZA VACCINE (#1)] Future Scheduled 2021-06-[address] [facility] Test 00:00:00 (#1) [code = Medical Center INFLUENZA VACCINE (#1)] Future Scheduled 2021-06-[address] [facility] Test 00:00:00 (#1) [code = Medical Center INFLUENZA VACCINE (#1)] Future Scheduled 2021-06-09 XR WRIST RIGHT [employer] [facility] 11:32:18 (COMPLETE) [[place] = [place] [address]-1] Future Scheduled 2021-06-09 ORT - XR WRIST RIGHT Ordered: [employer] [facility] [facility] 11:31:03 3 V (CHARGE ONLY) 06/09/2021 of Medicin e [code = 77797] Future Scheduled 2021-06-09 XR WRIST RIGHT 1 Occurrences [employer] [facility] [employer] [facility] 11:31:03 (COMPLETE) [code = [place] [address]-7] 06/09/2021 until 06/09/2022 Future Scheduled 2021-06-09 Screening for [employer] [facility] 11:25:44 malignant neoplasm of Medici ne of colon (procedure) [code = 357845176] Future Scheduled 2021-06-09 Screening for [employer] [facility] 11:25:44 malignant neoplasm of Medici ne of breast (procedure) [code = 544044391] Future Scheduled 2021-06-09 TETANUS SHOT (ADULT) [employer] Test 11:25:44 [code = TETANUS SHOT of Medi cine (ADULT)] Future Scheduled 2021-06-09 Diabetic foot [employer] [facility] 11:25:44 examination of Medicine (regime/therapy) [code = 111353182] Future Scheduled 2021-06-09 BMI FOLLOW UP PLAN [employer] [facility] 11:25:44 [code = BMI FOLLOW of Medici ne UP PLAN] Future Scheduled 2021-06-09 ANNUAL DIABETIC [employer] [facility] 11:25:44 RETINOPATHY of Medicine SCREENING [code = ANNUAL DIABETIC RETINOPATHY SCREENING] Future Scheduled 2021-06-09 COVID-19 Vaccine (2 [employer] [facility] 11:25:44 - Pfizer 2-dose of Medicine series) [code = COVID-19 Vaccine (2 - Pfizer 2-dose series)] Future Scheduled 2021-06-09 FLU VACCINE > 6 [employer] [facility] 11:25:44 MONTHS [code = FLU of Medici ne VACCINE > 6 MONTHS] Future Scheduled 2021-06-09 Hemoglobin A1c [employer] [facility] 11:25:44 measurement of Medicine (procedure) [code = 31641961] Future Scheduled 2021-06-09 Screening for [employer] [facility] 11:25:44 malignant neoplasm of Medici ne of cervix (procedure) [code = 233416122] Future Scheduled 2021-05-03 Screening for [employer] [facility] 00:23:54 malignant neoplasm of Medici ne of colon (procedure) [code = 144586781] Future Scheduled 2021-05-03 Screening for [employer] [facility] 00:23:54 malignant neoplasm of Medici ne of breast (procedure) [code = 566917137] Future Scheduled 2021-05-03 TETANUS SHOT (ADULT) [employer] Test 00:23:54 [code = TETANUS SHOT of Medi cine (ADULT)] Future Scheduled 2021-05-03 Diabetic foot [employer] [facility] 00:23:54 examination of Medicine (regime/therapy) [code = 477502934] Future Scheduled 2021-05-03 BMI FOLLOW UP PLAN [facility] Test 00:23:54 [code = BMI FOLLOW of Medici ne UP PLAN] Future Scheduled 2021-05-03 ANNUAL DIABETIC [employer] [facility] 00:23:54 RETINOPATHY of Medicine SCREENING [code = ANNUAL DIABETIC RETINOPATHY SCREENING] Future Scheduled 2021-05-03 COVID-19 Vaccine (2 [employer] [facility] 00:23:54 - Pfizer 2-dose of Medicine series) [code = COVID-19 Vaccine (2 - Pfizer 2-dose series)] Future Scheduled 2021-05-03 FLU VACCINE > 6 [employer] [facility] [employer] [facility] 00:23:54 MONTHS [code = FLU of Medici ne VACCINE > 6 MONTHS] Future Scheduled 2021-05-03 Hemoglobin A1c [employer] [facility] 00:23:54 measurement of Medicine (procedure) [code = 60807604] Future Scheduled 2021-05-03 Screening for [employer] [facility] 00:23:54 malignant neoplasm of Medici ne of cervix (procedure) [code = 899171815] Future Scheduled 2021-04-30 Screening for [employer] [facility] 10:13:03 malignant neoplasm of Medici ne of colon (procedure) [code = 773302930] Future Scheduled 2021-04-30 Screening for [employer] [facility] 10:13:03 malignant neoplasm of Medici ne of breast (procedure) [code = 797450750] Future Scheduled 2021-04-30 TETANUS SHOT (ADULT) [employer] Test 10:13:03 [code = TETANUS SHOT of Medi cine (ADULT)] Future Scheduled 2021-04-30 Diabetic foot [employer] [facility] 10:13:03 examination of Medicine (regime/therapy) [code = 216579150] Future Scheduled 2021-04-30 BMI FOLLOW UP PLAN [facility] [employer] Test 10:13:03 [code = BMI FOLLOW of Medici ne UP PLAN] Future Scheduled 2021-04-30 ANNUAL DIABETIC [employer] [facility] 10:13:03 RETINOPATHY of Medicine SCREENING [code = ANNUAL DIABETIC RETINOPATHY SCREENING] Future Scheduled 2021-04-30 COVID-19 Vaccine (2 [employer] [facility] 10:13:03 - Pfizer 2-dose of Medicine series) [code = COVID-19 Vaccine (2 - Pfizer 2-dose series)] Future Scheduled 2021-04-30 FLU VACCINE > 6 [employer] [facility] [employer] [facility] 10:13:03 MONTHS [code = FLU of Medici ne VACCINE > 6 MONTHS] Future Scheduled 2021-04-30 Hemoglobin A1c [employer] [facility] 10:13:03 measurement of Medicine (procedure) [code = 49328953] Future Scheduled 2021-04-30 Screening for [employer] [facility] 10:13:03 malignant neoplasm of Medici ne of cervix (procedure) [code = 446287137] Future Scheduled 2021-04-30 ORT - XR HAND RIGHT Ordered: [employer] [facility] 09:42:55 3V ( CHARGE ONLY) 04/30/2021 of Medicin e [code = 55812] Future Scheduled 2021-04-29 Screening for [employer] [facility] 10:09:02 malignant neoplasm of Medici ne of colon (procedure) [code = 909564204] Future Scheduled 2021-04-29 Screening for [employer] [facility] 10:09:02 malignant neoplasm of Medici ne of breast (procedure) [code = 585933345] Future Scheduled 2021-04-29 TETANUS SHOT (ADULT) [employer] Test 10:09:02 [code = TETANUS SHOT of Medi cine (ADULT)] Future Scheduled 2021-04-29 Diabetic foot [employer] [facility] 10:09:02 examination of Medicine (regime/therapy) [code = 299317793] Future Scheduled 2021-04-29 BMI FOLLOW UP PLAN [employer] Test 10:09:02 [code = BMI FOLLOW of Medici ne UP PLAN] Future Scheduled 2021-04-29 ANNUAL DIABETIC [employer] [facility] [employer] [facility] 10:09:02 RETINOPATHY of Medicine SCREENING [code = ANNUAL DIABETIC RETINOPATHY SCREENING] Future Scheduled 2021-04-29 COVID-19 Vaccine (2 [employer] [facility] 10:09:02 - Pfizer 2-dose of Medicine series) [code = COVID-19 Vaccine (2 - Pfizer 2-dose series)] Future Scheduled 2021-04-29 FLU VACCINE > 6 [employer] [facility] [employer] [facility] 10:09:02 MONTHS [code = FLU of Medici ne VACCINE > 6 MONTHS] Future Scheduled 2021-04-29 [facility] measurement of Medicine (procedure) [code = 88800060] Future Scheduled 2021-04-29 Screening for [employer] [facility] 10:09:02 malignant neoplasm of Medici ne of cervix (procedure) [code = 922054469] Future Scheduled 2021-04-09 Screening for [employer] [facility] 15:43:46 malignant neoplasm of Medici ne of colon (procedure) [code = 249237394] Future Scheduled 2021-04-09 Screening for [employer] [facility] 15:43:46 malignant neoplasm of Medici ne of breast (procedure) [code = 775564047] Future Scheduled 2021-04-09 TETANUS SHOT (ADULT) [facility] [employer] Test 15:43:46 [code = TETANUS SHOT of Medi cine (ADULT)] Future Scheduled 2021-04-09 Diabetic foot [employer] [facility] 15:43:46 examination of Medicine (regime/therapy) [code = 246719250] Future Scheduled 2021-04-09 BMI FOLLOW UP PLAN [employer] [facility] 15:43:46 [code = BMI FOLLOW of Medici ne UP PLAN] Future Scheduled 2021-04-09 ANNUAL DIABETIC [employer] [facility] 15:43:46 RETINOPATHY of Medicine SCREENING [code = ANNUAL DIABETIC RETINOPATHY SCREENING] Future Scheduled 2021-04-09 COVID-19 Vaccine (2 [employer] [facility] 15:43:46 - Pfizer 2-dose of Medicine series) [code = COVID-19 Vaccine (2 - Pfizer 2-dose series)] Future Scheduled 2021-04-09 FLU VACCINE > 6 [employer] [facility] 15:43:46 MONTHS [code = FLU of Medici ne VACCINE > 6 MONTHS] Future Scheduled 2021-04-09 Hemoglobin A1c [employer] [facility] 15:43:46 measurement of Medicine (procedure) [code = 07009348] Future Scheduled 2021-04-09 Screening for [employer] [facility] 15:43:46 malignant neoplasm of Medici ne of cervix (procedure) [code = 205609803] Future Scheduled 2021-03-30 Screening for [employer] [facility] 17:52:45 malignant neoplasm of Medici ne of colon (procedure) [code = 554997528] Future Scheduled 2021-03-30 Screening for [employer] [facility] 17:52:45 malignant neoplasm of Medici ne of breast (procedure) [code = 359301760] Future Scheduled 2021-03-30 TETANUS SHOT (ADULT) [facility] [employer] Test 17:52:45 [code = TETANUS SHOT of Medi cine (ADULT)] Future Scheduled 2021-03-30 Diabetic foot [employer] [facility] 17:52:45 examination of Medicine (regime/therapy) [code = 877919159] Future Scheduled 2021-03-30 BMI FOLLOW UP PLAN [facility] Test 17:52:45 [code = BMI FOLLOW of Medici ne UP PLAN] Future Scheduled 2021-03-30 ANNUAL DIABETIC [employer] [facility] 17:52:45 RETINOPATHY of Medicine SCREENING [code = ANNUAL DIABETIC RETINOPATHY SCREENING] Future Scheduled 2021-03-30 COVID-19 Vaccine (2 [facility] [employer] Test 17:52:45 - Pfizer 2-dose of Medicine series) [code = COVID-19 Vaccine (2 - Pfizer 2-dose series)] Future Scheduled 2021-03-30 FLU VACCINE > 6 [employer] [facility] [employer] [facility] 17:52:45 MONTHS [code = FLU of Medici ne VACCINE > 6 MONTHS] Future Scheduled 2021-03-30 Hemoglobin A1c [employer] [facility] 17:52:45 measurement of Medicine (procedure) [code = 98442980] Future Scheduled 2021-03-30 Screening for [employer] [facility] 17:52:45 malignant neoplasm of Medici ne of cervix (procedure) [code = 861778295] Future Scheduled 2021-02-24 Screening for [employer] [facility] 16:06:39 malignant neoplasm of Medici ne of colon (procedure) [code = 988697021] Future Scheduled 2021-02-24 Screening for [employer] [facility] 16:06:39 malignant neoplasm of Medici ne of breast (procedure) [code = 456092508] Future Scheduled 2021-02-24 TETANUS SHOT (ADULT) [facility] Test 16:06:39 [code = TETANUS SHOT of Medi cine (ADULT)] Future Scheduled 2021-02-24 Diabetic foot [employer] [facility] 16:06:39 examination of Medicine (regime/therapy) [code = 884892375] Future Scheduled 2021-02-24 BMI FOLLOW UP PLAN [facility] Test 16:06:39 [code = BMI FOLLOW of Medici ne UP PLAN] Future Scheduled 2021-02-24 ANNUAL DIABETIC [employer] [facility] 16:06:39 RETINOPATHY of Medicine SCREENING [code = ANNUAL DIABETIC RETINOPATHY SCREENING] Future Scheduled 2021-02-24 MEDICARE IPPE [employer] [facility] 16:06:39 (WELCOME TO of Medicine MEDICARE) [code = MEDICARE IPPE (WELCOME TO MEDICARE)] Future Scheduled 2021-02-24 COVID-19 Vaccine (2 [facility] Test 16:06:39 - Pfizer 2-dose of Medicine series) [code = COVID-19 Vaccine (2 - Pfizer 2-dose series)] Future Scheduled 2021-02-24 FLU VACCINE > 6 [employer] [facility] [employer] [facility] 16:06:39 MONTHS [code = FLU of Medici ne VACCINE > 6 MONTHS] Future Scheduled 2021-02-24 Hemoglobin A1c [employer] [facility] 16:06:39 measurement of Medicine (procedure) [code = 46592553] Future Scheduled 2021-02-24 Screening for [employer] [facility] 16:06:39 malignant neoplasm of Medici ne of cervix (procedure) [code = 843653541] Future Scheduled 2021-02-19 LARYNGOSCOPY, Ordered: [employer] [facility] 14:30:50 FLEXIBLE: DIAGNOSTIC 02/19/2021 of Medi cine [code = 72375] Future Scheduled 2021-02-19 ROLANDO SCOPE [code = Ordered: [facility] Test 13:16:46 [id number]] 02/19/2021 of Medicine Future Scheduled 2021-01-16 COVID-19 VACCINE ([address] [facility] Test 00:00:00 - Pfizer 3-dose [facility] booster series) [code = COVID-19 VACCINE (2 - Pfizer 3-dose booster series)] Future Scheduled 2021-01-16 COVID-19 VACCINE ([address] [facility] Test 00:00:00 - Pfizer 3-dose Medical Cent [facility] booster series) [code = COVID-19 VACCINE (2 - Pfizer 3-dose booster series)] Diagnostic Test 2020-10-01 MAMMO 3D SCREENING Expected: [facility] Pending 00:00:00 BILATERAL [code = 10/01/2020, of Medicin e 41276] Expires: 04/01/2022 Diagnostic Test 2020-05-30 CBC W/AUTO DIFF WITH Expected: [facility] Pending 00:00:00 PLATELETS [code = 05/30/2020 of Medicosiris ribeiro 06001-8] (Approximate), Expires: 08/30/2020 Future Scheduled 2019-09-30 SHINGLES VACCINES ([address] [facility] Test 00:00:00 of 3) [code = Medical Center SHINGLES VACCINES (3 of 3)] Future Scheduled 2019-09-30 SHINGLES VACCINES ([address] [facility] Test 00:00:00 of 3) [code = Medical Center SHINGLES VACCINES (3 of 3)] Future Scheduled 2019-09-30 SHINGLES VACCINES ([address] [facility] Test 00:00:00 of 3) [code = Medical Center SHINGLES VACCINES (3 of 3)] Future Scheduled 2019-09-30 SHINGLES VACCINES ([address] [facility] Test 00:00:00 of 3) [code = Medical Center SHINGLES VACCINES (3 of 3)] Future Scheduled 1985-01-[address] [facility] Test 00:00:00 malignant neoplasm Medical C enter of cervix (procedure) [code = 733533403] Future Scheduled 1985-01-[address] [facility] Test 00:00:00 malignant neoplasm Medical C enter of cervix (procedure) [code = 661484936] Future Scheduled 1985-01-[address] [facility] Test 00:00:00 malignant neoplasm Medical C enter of cervix (procedure) [code = 182418459] Future Scheduled 1985-01-[address] [facility] Test 00:00:00 malignant neoplasm Medical C enter of cervix (procedure) [code = 021416117] Future Scheduled 1983-01-13 DTAP/TDAP/TD [facility] Test 00[facility] VACCINES (1 - Tdap) [facility] Center [code = DTAP/TDAP/TD VACCINES (1 - Tdap)] Future Scheduled 1983-01-13 DTAP/TDAP/TD [facility] Test 00:00:00 VACCINES (1 - Tdap) Medical Center [code = DTAP/TDAP/TD VACCINES (1 - Tdap)] Future Scheduled 1983-01-13 DTAP/TDAP/TD [facility] Test 00:00:00 VACCINES (1 - Tdap) Medical Center [code = DTAP/TDAP/TD VACCINES (1 - Tdap)] Future Scheduled 1983-01-13 DTAP/TDAP/TD [facility] Test 00:00:00 VACCINES (1 - Tdap) Medical Center [code = DTAP/TDAP/TD VACCINES (1 - Tdap)] Future Scheduled 1976 COVID-19 VACCINE (1) [facility] Test 00:00:00 [code = COVID-[address] VACCINE (1)] Future Scheduled 1976 COVID-19 VACCINE (1) [facility] Test 00:00:00 [code = COVID-[address] VACCINE (1)] Future Scheduled 1974-01-[address] DI[address] EYE EXAM [facility] Test 00:00:00 [code = DIABETIC EYE Medical Center EXAM] Future Scheduled 1974-01-[address] EYE EXAM [facility] Test 00:00:00 [code = DIABETIC EYE Medical Center EXAM] Future Scheduled [address] [facility] Test 00:00:00 malignant neoplasm Medical C enter of breast (procedure) [code = 443110758] Future Scheduled [address] [facility] Test 00:00:00 malignant neoplasm Medical C enter of breast (procedure) [code = 113023251] Future Scheduled [address] [facility] Test 00:00:00 malignant neoplasm Medical C enter of breast (procedure) [code = 307418387] Future Scheduled [address] [facility] Test 00:00:00 malignant neoplasm Medical C enter of breast (procedure) [code = 092902122] Future Scheduled CELIAC DISEASE PANEL Ordered: [employer] [facility] [facility] [code = 26949-0] 06/20/2019 of Medicine Future Scheduled IGA [code = 2458-8] Ordered: [employer] [facility] 06/20/2019 of Medicine Future Scheduled C-REACTIVE PROTEIN Ordered: [employer] [facility] [code = 1988-5] 06/20/2019 of Medicine Future Scheduled COLON CANCER [employer] [facility] SCREENING: of Medicine COLONOSCOPY [code = COLON CANCER SCREENING: COLONOSCOPY] Future Scheduled SEDIMENTATION RATE Ordered: [employer] [facility] MODIFIED WESTERGREN 06/20/2019 of Medic ine [code = 4537-7] Future Scheduled MAMMOGRAM ANNUAL [employer] [facility] [code = MAMMOGRAM of Medicin e ANNUAL] Future Scheduled TETANUS SHOT (ADULT) [employer] [facility] [code = TETANUS SHOT of Medi cine (ADULT)] Future Scheduled Diabetic foot [employer] [facility] examination of Medicine (regime/therapy) [code = 715456669] Future Scheduled BMI FOLLOW UP PLAN [employer] [facility] [code = BMI FOLLOW of Medici ne UP PLAN] Future Scheduled A1C TESTING EVERY 6 [employer] [facility] MONTHS [code = A1C of Medici ne TESTING EVERY 6 MONTHS] Future Scheduled FLU VACCINE > 6 [employer] [facility] MONTHS [code = FLU of Medici ne VACCINE > 6 MONTHS] Future Scheduled ANNUAL DIABETIC [employer] [facility] RETINOPATHY of Medicine SCREENING [code = ANNUAL DIABETIC RETINOPATHY SCREENING] Future Scheduled CERVICAL CANCER [employer] [facility] SCREENING 3 YEAR of Medicine FOLLOW UP [code = CERVICAL CANCER SCREENING 3 YEAR FOLLOW UP] Future Scheduled CALPROTECTIN, FECAL Ordered: [employer] [facility] [code = 67512-1] 06/20/2019 of Medicine Future Scheduled PANCREATIC ELASTASE Ordered: [employer] - FECAL [code = 06/20/2019 of Medicine 20907-6] Future Scheduled A1C TESTING EVERY 6 [employer] [facility] MONTHS [code = A1C of Medici ne TESTING EVERY 6 MONTHS] Future Scheduled COLON CANCER [employer] [facility] SCREENING: of Medicine COLONOSCOPY [code = COLON CANCER SCREENING: COLONOSCOPY] Future Scheduled ORT - XR FINGER Ordered: [employer] [facility] RIGHT 2V ( CHARGE 03/13/2020 of Medicin e ONLY) [code = 80004] Future Scheduled COLON CANCER [employer] [facility] SCREENING: of Medicine COLONOSCOPY [code = COLON CANCER SCREENING: COLONOSCOPY] Future Scheduled MAMMOGRAM ANNUAL [employer] [facility] [code = MAMMOGRAM of Medicin e ANNUAL] Future Scheduled TETANUS SHOT (ADULT) [employer] [facility] [code = TETANUS SHOT of Medi cine (ADULT)] Future Scheduled Diabetic foot [employer] [facility] examination of Medicine (regime/therapy) [code = 380682371] Future Scheduled BMI FOLLOW UP PLAN [employer] [facility] [code = BMI FOLLOW of Medici ne UP PLAN] Future Scheduled MAMMOGRAM ANNUAL [employer] [facility] [code = MAMMOGRAM of Medicin e ANNUAL] Future Scheduled A1C TESTING EVERY 6 [employer] [facility] MONTHS [code = A1C of Medici ne TESTING EVERY 6 MONTHS] Future Scheduled FLU VACCINE > 6 [facility] [employer] [facility] MONTHS [code = FLU of Medici ne VACCINE > 6 MONTHS] Future Scheduled ANNUAL DIABETIC [employer] [facility] RETINOPATHY of Medicine SCREENING [code = ANNUAL DIABETIC RETINOPATHY SCREENING] Future Scheduled CERVICAL CANCER [employer] [facility] SCREENING 3 YEAR of Medicine FOLLOW UP [code = CERVICAL CANCER SCREENING 3 YEAR FOLLOW UP] Future Scheduled TETANUS SHOT (ADULT) [employer] [facility] [code = TETANUS SHOT of Medi cine (ADULT)] Future Scheduled Diabetic foot [employer] [facility] examination of Medicine (regime/therapy) [code = 766708805] Future Scheduled ANNUAL DIABETIC [employer] [facility] RETINOPATHY of Medicine SCREENING [code = ANNUAL DIABETIC RETINOPATHY SCREENING] Future Scheduled BMI FOLLOW UP PLAN [employer] [facility] [code = BMI FOLLOW of Medici ne UP PLAN] Future Scheduled HIV SCREENING [code [employer] [facility] = HIV SCREENING] of Medicine Future Scheduled CERVICAL CANCER [employer] [facility] SCREENING 3 YEAR of Medicine FOLLOW UP [code = CERVICAL CANCER SCREENING 3 YEAR FOLLOW UP] Future Scheduled FLU VACCINE > 6 [employer] [facility] [employer] [facility] MONTHS [code = FLU of Medici ne VACCINE > 6 MONTHS] Future Scheduled ORT - XR FINGER Ordered: [employer] [facility] RIGHT 2V ( CHARGE 06/12/2020 of Medicin e ONLY) [code = 41683] Future Scheduled ORT - XR FINGER Ordered: [employer] [facility] RIGHT 2V ( CHARGE 06/12/2020 of Medicin e ONLY) [code = 10530] Future Scheduled DC DME SUPPLY OR Ordered: [employer] [facility] ACCESSORY, NOS [code 06/12/2020 of Medi cine = A9999] Future Scheduled COLON CANCER [employer] [facility] SCREENING: of Medicine COLONOSCOPY [code = COLON CANCER SCREENING: COLONOSCOPY] Future Scheduled MAMMOGRAM ANNUAL [employer] [facility] [code = MAMMOGRAM of Medicin e ANNUAL] Future Scheduled TETANUS SHOT (ADULT) [employer] [facility] [code = TETANUS SHOT of Medi cine (ADULT)] Future Scheduled Diabetic foot [employer] [facility] examination of Medicine (regime/therapy) [code = 092951178] Future Scheduled BMI FOLLOW UP PLAN [employer] [facility] [code = BMI FOLLOW of Medici ne UP PLAN] Future Scheduled ZOSTER VACCINE (2 of [employer] [facility] 2) [code = ZOSTER of Medicin e VACCINE (2 of 2)] Future Scheduled MEDICARE IPPE [employer] [facility] (WELCOME TO of Medicine MEDICARE) [code = MEDICARE IPPE (WELCOME TO MEDICARE)] Future Scheduled A1C TESTING EVERY 6 [employer] [facility] MONTHS [code = A1C of Medici ne TESTING EVERY 6 MONTHS] Future Scheduled FLU VACCINE > 6 [facility] [facility] [employer] [facility] MONTHS [code = FLU of Medici ne VACCINE > 6 MONTHS] Future Scheduled ANNUAL DIABETIC [employer] [facility] RETINOPATHY of Medicine SCREENING [code = ANNUAL DIABETIC RETINOPATHY SCREENING] Future Scheduled CERVICAL CANCER [employer] [facility] SCREENING 3 YEAR of Medicine FOLLOW UP [code = CERVICAL CANCER SCREENING 3 YEAR FOLLOW UP] Future Scheduled COLON CANCER [employer] [facility] SCREENING: of Medicine COLONOSCOPY [code = COLON CANCER SCREENING: COLONOSCOPY] Future Scheduled MAMMOGRAM ANNUAL [employer] [facility] [code = MAMMOGRAM of Medicin e ANNUAL] Future Scheduled TETANUS SHOT (ADULT) [employer] [facility] [code = TETANUS SHOT of Medi cine (ADULT)] Future Scheduled Diabetic foot [employer] [facility] examination of Medicine (regime/therapy) [code = 174279659] Future Scheduled BMI FOLLOW UP PLAN [employer] [facility] [code = BMI FOLLOW of Medici ne UP PLAN] Future Scheduled ZOSTER VACCINE (2 of [employer] [facility] 2) [code = ZOSTER of Medicin e VACCINE (2 of 2)] Future Scheduled MEDICARE IPPE [employer] [facility] (WELCOME TO of Medicine MEDICARE) [code = MEDICARE IPPE (WELCOME TO MEDICARE)] Future Scheduled A1C TESTING EVERY 6 [employer] [facility] MONTHS [code = A1C of Medici ne TESTING EVERY 6 MONTHS] Future Scheduled FLU VACCINE > 6 [employer] [facility] [employer] [facility] MONTHS [code = FLU of Medici ne VACCINE > 6 MONTHS] Future Scheduled ANNUAL DIABETIC [facility] [employer] [facility] RETINOPATHY of Medicine SCREENING [code = ANNUAL DIABETIC RETINOPATHY SCREENING] Future Scheduled CERVICAL CANCER [employer] [facility] SCREENING 3 YEAR of Medicine FOLLOW UP [code = CERVICAL CANCER SCREENING 3 YEAR FOLLOW UP] Future Scheduled TSH [code = 34041-4] Ordered: [employer] [facility] 06/26/2020 of Medicine Future Scheduled T4 FREE [code = Ordered: [employer] [facility] 3024-7] 06/26/2020 of Medicine Future Scheduled VITAMIN B12 [code = Ordered: [employer] [facility] 2132-9] 06/26/2020 of Medicine Future Scheduled LIPID PANEL [code = Ordered: [employer] [facility] 25671-0] 06/27/2020 of Medicine Future Scheduled MICROALBUMIN/CREAT Ordered: [employer] [facility] URINE RATIO [code = 06/27/2020 of Medic ine 9318-7] Future Scheduled COLON CANCER [employer] [facility] SCREENING: of Medicine COLONOSCOPY [code = COLON CANCER SCREENING: COLONOSCOPY] Future Scheduled MAMMOGRAM ANNUAL [employer] [facility] [code = MAMMOGRAM of Medicin e ANNUAL] Future Scheduled TETANUS SHOT (ADULT) [employer] [facility] [code = TETANUS SHOT of Medi cine (ADULT)] Future Scheduled Diabetic foot [employer] [facility] examination of Medicine (regime/therapy) [code = 033448651] Future Scheduled BMI FOLLOW UP PLAN [employer] [facility] [code = BMI FOLLOW of Medici ne UP PLAN] Future Scheduled ZOSTER VACCINE (2 of [employer] [facility] 2) [code = ZOSTER of Medicin e VACCINE (2 of 2)] Future Scheduled MEDICARE IPPE [employer] [facility] (WELCOME TO of [facility] MEDICARE) [code = MEDICARE IPPE (WELCOME TO MEDICARE)] Future Scheduled FLU VACCINE > 6 [facility] [employer] MONTHS [code = FLU of Medici ne VACCINE > 6 MONTHS] Future Scheduled ANNUAL DIABETIC [employer] RETINOPATHY of Medicine SCREENING [code = ANNUAL DIABETIC RETINOPATHY SCREENING] Future Scheduled A1C TESTING EVERY 6 [employer] [facility] MONTHS [code = A1C of Medici ne TESTING EVERY 6 MONTHS] Future Scheduled CERVICAL CANCER [employer] [facility] SCREENING 3 YEAR of Medicine FOLLOW UP [code = CERVICAL CANCER SCREENING 3 YEAR FOLLOW UP] Future Scheduled ORT - XR HAND RIGHT Ordered: [employer] [facility] 3V ( CHARGE ONLY) 08/28/2020 of Medicin e [code = 49261] Future Scheduled XR HAND RIGHT [employer] [facility] (COMPLETE) [[place] = [place] [address]-7] Future Scheduled COLON CANCER [employer] SCREENING: of Medicine COLONOSCOPY [code = COLON CANCER SCREENING: COLONOSCOPY] Future Scheduled MAMMOGRAM ANNUAL [employer] [facility] [code = MAMMOGRAM of Medicin e ANNUAL] Future Scheduled TETANUS SHOT (ADULT) [employer] [facility] [code = TETANUS SHOT of Medi cine (ADULT)] Future Scheduled Diabetic foot [employer] [facility] examination of Medicine (regime/therapy) [code = [id number]] Future Scheduled BMI FOLLOW UP PLAN [employer] [facility] [code = BMI FOLLOW of Medici ne UP PLAN] Future Scheduled ZOSTER VACCINE (2 of [employer] [facility] 2) [code = ZOSTER of Medicin e VACCINE (2 of 2)] Future Scheduled MEDICARE IPPE [employer] [facility] (WELCOME TO of Medicine MEDICARE) [code = MEDICARE IPPE (WELCOME TO MEDICARE)] Future Scheduled ANNUAL DIABETIC [employer] [facility] RETINOPATHY of Medicine SCREENING [code = ANNUAL DIABETIC RETINOPATHY SCREENING] Future Scheduled A1C TESTING EVERY 6 [employer] [facility] MONTHS [code = A1C of Medici ne TESTING EVERY 6 MONTHS] Future Scheduled FLU VACCINE > 6 Postponed from [employer] [facility] MONTHS [code = FLU 05/11/2020 of Medici ne VACCINE > 6 MONTHS] (Postpone Reason: Patient declined today) Future Scheduled CERVICAL CANCER [employer] [facility] SCREENING 3 YEAR of Medicine FOLLOW UP [code = CERVICAL CANCER SCREENING 3 YEAR FOLLOW UP] Future Scheduled CORTISOL ,24HR URINE Ordered: [employer] [facility] [code = 75520] 08/28/2020 of Medicine Future Scheduled 24 HR URINE CALCIUM Ordered: [employer] [facility] [code = 6874-2] 08/28/2020 of Medicine Future Scheduled CITRATE URINE 24 Ordered: [employer] [facility] HOUR [code = 84319] 08/28/2020 of Medic ine Future Scheduled CREATININE, 24HR Ordered: [employer] [facility] URINE [code = 08/28/2020 of Medicine 2162-6] Future Scheduled MICROALBUMIN/CREAT Ordered: [employer] [facility] URINE RATIO [code = 08/28/2020 of Medic ine 9318-7] Future Scheduled COLON CANCER [employer] [facility] SCREENING: of Medicine COLONOSCOPY [code = COLON CANCER SCREENING: COLONOSCOPY] Future Scheduled MAMMOGRAM ANNUAL [employer] [facility] [code = MAMMOGRAM of Medicin e ANNUAL] Future Scheduled TETANUS SHOT (ADULT) [employer] [facility] [code = TETANUS SHOT of Medi cine (ADULT)] Future Scheduled Diabetic foot [employer] [facility] examination of Medicine (regime/therapy) [code = [id number]] Future Scheduled BMI FOLLOW UP PLAN [employer] [facility] [code = BMI FOLLOW of Medici ne UP PLAN] Future Scheduled ZOSTER VACCINE (2 of [employer] [facility] 2) [code = ZOSTER of Medicin e VACCINE (2 of 2)] Future Scheduled MEDICARE IPPE [employer] [facility] (WELCOME TO of Medicine MEDICARE) [code = MEDICARE IPPE (WELCOME TO MEDICARE)] Future Scheduled ANNUAL DIABETIC [employer] [facility] RETINOPATHY of Medicine SCREENING [code = ANNUAL DIABETIC RETINOPATHY SCREENING] Future Scheduled A1C TESTING EVERY 6 [employer] [facility] MONTHS [code = A1C of Medici ne TESTING EVERY 6 MONTHS] Future Scheduled FLU VACCINE > 6 Postponed from [employer] [facility] MONTHS [code = FLU 05/11/2020 of Medici ne VACCINE > 6 MONTHS] (Postpone Reason: Patient declined today) Future Scheduled CERVICAL CANCER [employer] [facility] SCREENING 3 YEAR of Medicine FOLLOW UP [code = CERVICAL CANCER SCREENING 3 YEAR FOLLOW UP] Future Scheduled LIPID PANEL [code = Ordered: [employer] [facility] 25460-0] 09/23/2020 of Medicine Future Scheduled COMPREHENSIVE Ordered: [employer] [facility] METABOLIC PANEL 09/23/2020 of Medicine [code = 30632-1] Future Scheduled COLON CANCER [employer] [facility] SCREENING: of Medicine COLONOSCOPY [code = COLON CANCER SCREENING: COLONOSCOPY] Future Scheduled MAMMOGRAM ANNUAL [employer] [facility] [code = MAMMOGRAM of Medicin e ANNUAL] Future Scheduled TETANUS SHOT (ADULT) [employer] [facility] [code = TETANUS SHOT of Medi cine (ADULT)] Future Scheduled Diabetic foot [employer] [facility] examination of Medicine (regime/therapy) [code = [id number]] Future Scheduled BMI FOLLOW UP PLAN [employer] [facility] [code = BMI FOLLOW of Medici ne UP PLAN] Future Scheduled ZOSTER VACCINE (2 of [employer] [facility] 2) [code = ZOSTER of Medicin e VACCINE (2 of 2)] Future Scheduled MEDICARE IPPE [employer] [facility] (WELCOME TO of Medicine MEDICARE) [code = MEDICARE IPPE (WELCOME TO MEDICARE)] Future Scheduled ANNUAL DIABETIC [employer] [facility] RETINOPATHY of Medicine SCREENING [code = ANNUAL DIABETIC RETINOPATHY SCREENING] Future Scheduled FLU VACCINE > 6 Postponed from [facility] Test MONTHS [code = FLU 05/11/2020 of Medici ne VACCINE > 6 MONTHS] (Postpone Reason: Patient declined today) Future Scheduled A1C TESTING EVERY 6 [employer] [facility] MONTHS [code = A1C of Medici ne TESTING EVERY 6 MONTHS] Future Scheduled CERVICAL CANCER [employer] [facility] SCREENING 3 YEAR of Medicine FOLLOW UP [code = CERVICAL CANCER SCREENING 3 YEAR FOLLOW UP] Future Scheduled ORT - XR KNEE BILAT Ordered: [employer] [facility] 4V (CHARGE ONLY) 09/26/2020 of Medicine [code = 83334] Future Scheduled COLON CANCER [employer] [facility] SCREENING: of Medicine COLONOSCOPY [code = COLON CANCER SCREENING: COLONOSCOPY] Future Scheduled MAMMOGRAM ANNUAL [facility] Test [code = MAMMOGRAM of Medicin e ANNUAL] Future Scheduled TETANUS SHOT (ADULT) [facility] Test [code = TETANUS SHOT of Medi cine (ADULT)] Future Scheduled Diabetic foot [employer] [facility] examination of Medicine (regime/therapy) [code = [id number]] Future Scheduled BMI FOLLOW UP PLAN [facility] [code = BMI FOLLOW of Medici ne UP PLAN] Future Scheduled ZOSTER VACCINE (2 of [employer] [facility] 2) [code = ZOSTER of Medicin e VACCINE (2 of 2)] Future Scheduled MEDICARE IPPE [employer] [facility] (WELCOME TO of Medicine MEDICARE) [code = MEDICARE IPPE (WELCOME TO MEDICARE)] Future Scheduled ANNUAL DIABETIC [employer] RETINOPATHY of Medicine SCREENING [code = ANNUAL DIABETIC RETINOPATHY SCREENING] Future Scheduled FLU VACCINE > 6 Postponed from [facility] Test MONTHS [code = FLU 05/11/2020 of Medici ne VACCINE > 6 MONTHS] (Postpone Reason: Patient declined today) Future Scheduled A1C TESTING EVERY 6 [employer] [facility] MONTHS [code = A1C of Medici ne TESTING EVERY 6 MONTHS] Future Scheduled CERVICAL CANCER [employer] [facility] SCREENING 3 YEAR of Medicine FOLLOW UP [code = CERVICAL CANCER SCREENING 3 YEAR FOLLOW UP] Future Scheduled VITAMIN D 25 HYDROXY Ordered: [employer] [facility] [code = 1989-3] 10/01/2020 of Medicine Future Scheduled COLON CANCER [employer] SCREENING: of Medicine COLONOSCOPY [code = COLON CANCER SCREENING: COLONOSCOPY] Future Scheduled MAMMOGRAM ANNUAL [employer] [facility] [code = MAMMOGRAM of Medicin e ANNUAL] Future Scheduled TETANUS SHOT (ADULT) [employer] [facility] [code = TETANUS SHOT of Medi cine (ADULT)] Future Scheduled Diabetic foot [employer] examination of Medicine (regime/therapy) [code = 800057219] Future Scheduled BMI FOLLOW UP PLAN [employer] [facility] [code = BMI FOLLOW of Medici ne UP PLAN] Future Scheduled ZOSTER VACCINE (2 of [employer] [facility] 2) [code = ZOSTER of Medicin e VACCINE (2 of 2)] Future Scheduled MEDICARE IPPE [employer] [facility] (WELCOME TO of Medicine MEDICARE) [code = MEDICARE IPPE (WELCOME TO MEDICARE)] Future Scheduled ANNUAL DIABETIC [employer] [facility] RETINOPATHY of Medicine SCREENING [code = ANNUAL DIABETIC RETINOPATHY SCREENING] Future Scheduled A1C TESTING EVERY 6 [employer] [facility] MONTHS [code = A1C of Medici ne TESTING EVERY 6 MONTHS] Future Scheduled CERVICAL CANCER [employer] [facility] SCREENING 3 YEAR of Medicine FOLLOW UP [code = CERVICAL CANCER SCREENING 3 YEAR FOLLOW UP] Future Scheduled ORT - XR WRIST RIGHT Ordered: [employer] [facility] 3 V (CHARGE ONLY) 10/01/2020 of Medicin e [code = 83202] Future Scheduled COLON CANCER [employer] [facility] SCREENING: of Medicine COLONOSCOPY [code = COLON CANCER SCREENING: COLONOSCOPY] Future Scheduled MAMMOGRAM ANNUAL [employer] [facility] [code = MAMMOGRAM of Medicin e ANNUAL] Future Scheduled TETANUS SHOT (ADULT) [employer] [facility] [code = TETANUS SHOT of Medi cine (ADULT)] Future Scheduled Diabetic foot [employer] [facility] examination of Medicine (regime/therapy) [code = 426411031] Future Scheduled BMI FOLLOW UP PLAN [employer] [facility] [code = BMI FOLLOW of Medici ne UP PLAN] Future Scheduled ZOSTER VACCINE (2 of [employer] [facility] 2) [code = ZOSTER of Medicin e VACCINE (2 of 2)] Future Scheduled MEDICARE IPPE [employer] [facility] (WELCOME TO of Medicine MEDICARE) [code = MEDICARE IPPE (WELCOME TO MEDICARE)] Future Scheduled ANNUAL DIABETIC [employer] [facility] RETINOPATHY of Medicine SCREENING [code = ANNUAL DIABETIC RETINOPATHY SCREENING] Future Scheduled A1C TESTING EVERY 6 [employer] [facility] MONTHS [code = A1C of Medici ne TESTING EVERY 6 MONTHS] Future Scheduled CERVICAL CANCER [employer] [facility] SCREENING 3 YEAR of Medicine FOLLOW UP [code = CERVICAL CANCER SCREENING 3 YEAR FOLLOW UP] Future Scheduled Screening for [employer] [facility] malignant neoplasm of Medici ne of colon (procedure) [code = 345549224] Future Scheduled COVID-19 Vaccine [employer] [facility] Evaluation [code = of Medici ne COVID-19 Vaccine Evaluation] Future Scheduled Screening for [employer] [facility] malignant neoplasm of Medici ne of breast (procedure) [code = 009254177] Future Scheduled TETANUS SHOT (ADULT) [employer] [facility] [code = TETANUS SHOT of Medi cine (ADULT)] Future Scheduled Diabetic foot [employer] [facility] examination of Medicine (regime/therapy) [code = 642039894] Future Scheduled BMI FOLLOW UP PLAN [employer] [facility] [code = BMI FOLLOW of Medici ne UP PLAN] Future Scheduled ZOSTER VACCINE (2 of [employer] [facility] 2) [code = ZOSTER of Medicin e VACCINE (2 of 2)] Future Scheduled ANNUAL DIABETIC [employer] [facility] RETINOPATHY of Medicine SCREENING [code = ANNUAL DIABETIC RETINOPATHY SCREENING] Future Scheduled MEDICARE IPPE [employer] [facility] (WELCOME TO of Medicine MEDICARE) [code = MEDICARE IPPE (WELCOME TO MEDICARE)] Future Scheduled Hemoglobin A1c [facility] Test measurement of Medicine (procedure) [code = 15149014] Future Scheduled Screening for [employer] [facility] malignant neoplasm of Medici ne of cervix (procedure) [code = 984571951] Future Scheduled A1C TESTING EVERY 6 [employer] [facility] MONTHS [code = A1C of Medici ne TESTING EVERY 6 MONTHS] Future Scheduled MAMMOGRAM ANNUAL [employer] [facility] [code = MAMMOGRAM of Medicin e ANNUAL] Future Scheduled TETANUS SHOT (ADULT) [employer] [facility] [code = TETANUS SHOT of Medi cine (ADULT)] Future Scheduled Diabetic foot [employer] [facility] examination of Medicine (regime/therapy) [code = 551441067] Future Scheduled ANNUAL DIABETIC [employer] RETINOPATHY of Medicine SCREENING [code = ANNUAL DIABETIC RETINOPATHY SCREENING] Future Scheduled BMI FOLLOW UP PLAN [employer] [facility] [code = BMI FOLLOW of Medici ne UP PLAN] Future Scheduled HIV SCREENING [code [employer] [facility] = HIV SCREENING] of Medicine Future Scheduled CERVICAL CANCER [employer] [facility] SCREENING 3 YEAR of Medicine FOLLOW UP [code = CERVICAL CANCER SCREENING 3 YEAR FOLLOW UP] Future Scheduled FLU VACCINE > 6 Postponed from [employer] [facility] MONTHS [code = FLU 05/11/2019 (Other) of Medicine VACCINE > 6 MONTHS] Future Scheduled COLON CANCER [employer] [facility] SCREENING: of Medicine COLONOSCOPY [code = COLON CANCER SCREENING: COLONOSCOPY] Future Scheduled LIPID PANEL [code = Ordered: [employer] [facility] 72318-8] 08/14/2019 of Medicine Future Scheduled MICROALBUMIN/CREAT Ordered: [employer] [employer] [facility] URINE RATIO [code = 08/14/2019 of Medic ine 9318-7] Future Scheduled A1C TESTING EVERY 6 [employer] [facility] MONTHS [code = A1C of Medici ne TESTING EVERY 6 MONTHS] Future Scheduled MAMMOGRAM ANNUAL [employer] [facility] [code = MAMMOGRAM of Medicin e ANNUAL] Future Scheduled TETANUS SHOT (ADULT) [employer] [facility] [code = TETANUS SHOT of Medi cine (ADULT)] Future Scheduled Diabetic foot [employer] [facility] examination of Medicine (regime/therapy) [code = 241165873] Future Scheduled ANNUAL DIABETIC [employer] [facility] RETINOPATHY of Medicine SCREENING [code = ANNUAL DIABETIC RETINOPATHY SCREENING] Future Scheduled BMI FOLLOW UP PLAN [employer] [facility] [code = BMI FOLLOW of Medici ne UP PLAN] Future Scheduled HIV SCREENING [code [employer] [facility] = HIV SCREENING] of Medicine Future Scheduled CERVICAL CANCER [employer] [facility] SCREENING 3 YEAR of Medicine FOLLOW UP [code = CERVICAL CANCER SCREENING 3 YEAR FOLLOW UP] Future Scheduled FLU VACCINE > 6 [employer] [facility] MONTHS [code = FLU of Medici ne VACCINE > 6 MONTHS] Future Scheduled COLON CANCER [employer] [facility] SCREENING: of Medicine COLONOSCOPY [code = COLON CANCER SCREENING: COLONOSCOPY] Future Scheduled MAMMOGRAM ANNUAL [employer] [facility] [code = MAMMOGRAM of Medicin e ANNUAL] Future Scheduled TETANUS SHOT (ADULT) [employer] [facility] [code = TETANUS SHOT of Medi cine (ADULT)] Future Scheduled Diabetic foot [employer] [facility] examination of Medicine (regime/therapy) [code = 404828812] Future Scheduled ANNUAL DIABETIC [employer] [facility] RETINOPATHY of Medicine SCREENING [code = ANNUAL DIABETIC RETINOPATHY SCREENING] Future Scheduled BMI FOLLOW UP PLAN [employer] Test [code = BMI FOLLOW of Medici ne UP PLAN] Future Scheduled HIV SCREENING [code [employer] [facility] = HIV SCREENING] of Medicine Future Scheduled CERVICAL CANCER [employer] [facility] SCREENING 3 YEAR of Medicine FOLLOW UP [code = CERVICAL CANCER SCREENING 3 YEAR FOLLOW UP] Future Scheduled FLU VACCINE > 6 [employer] [facility] MONTHS [code = FLU of Medici ne VACCINE > 6 MONTHS] Future Scheduled A1C TESTING EVERY 6 [employer] [facility] MONTHS [code = A1C of Medici ne TESTING EVERY 6 MONTHS] Future Scheduled COLON CANCER [employer] [facility] SCREENING: of Medicine COLONOSCOPY [code = COLON CANCER SCREENING: COLONOSCOPY] Future Scheduled COLON CANCER [employer] [facility] SCREENING: of Medicine COLONOSCOPY [code = COLON CANCER SCREENING: COLONOSCOPY] Future Scheduled MAMMOGRAM ANNUAL [employer] [facility] [code = MAMMOGRAM of Medicin e ANNUAL] Future Scheduled TETANUS SHOT (ADULT) [employer] [facility] [code = TETANUS SHOT of Medi cine (ADULT)] Future Scheduled Diabetic foot [employer] [facility] examination of Medicine (regime/therapy) [code = 009220680] Future Scheduled BMI FOLLOW UP PLAN [employer] [facility] [code = BMI FOLLOW of Medici ne UP PLAN] Future Scheduled HIV SCREENING [code [employer] [facility] = HIV SCREENING] of Medicine Future Scheduled CERVICAL CANCER [employer] [facility] SCREENING 3 YEAR of Medicine FOLLOW UP [code = CERVICAL CANCER SCREENING 3 YEAR FOLLOW UP] Future Scheduled A1C TESTING EVERY 6 [employer] [facility] MONTHS [code = A1C of Medici ne TESTING EVERY 6 MONTHS] Future Scheduled ANNUAL DIABETIC [employer] [facility] RETINOPATHY of Medicine SCREENING [code = ANNUAL DIABETIC RETINOPATHY SCREENING] Future Scheduled ORT - XR FINGER Ordered: [employer] [facility] RIGHT 2V ( CHARGE 11/14/2019 of Medicin e ONLY) [code = 58234] Future Scheduled COLON CANCER [employer] [facility] SCREENING: of Medicine COLONOSCOPY [code = COLON CANCER SCREENING: COLONOSCOPY] Future Scheduled MAMMOGRAM ANNUAL [employer] [facility] [code = MAMMOGRAM of Medicin e ANNUAL] Future Scheduled TETANUS SHOT (ADULT) [employer] [facility] [code = TETANUS SHOT of Medi cine (ADULT)] Future Scheduled Diabetic foot [employer] [facility] examination of Medicine (regime/therapy) [code = 131121932] Future Scheduled BMI FOLLOW UP PLAN [employer] [facility] [code = BMI FOLLOW of Medici ne UP PLAN] Future Scheduled HIV SCREENING [code [employer] [facility] = HIV SCREENING] of Medicine Future Scheduled CERVICAL CANCER [employer] [facility] SCREENING 3 YEAR of Medicine FOLLOW UP [code = CERVICAL CANCER SCREENING 3 YEAR FOLLOW UP] Future Scheduled A1C TESTING EVERY 6 [employer] [facility] MONTHS [code = A1C of Medici ne TESTING EVERY 6 MONTHS] Future Scheduled ANNUAL DIABETIC [employer] RETINOPATHY of Medicine SCREENING [code = ANNUAL DIABETIC RETINOPATHY SCREENING] Future Scheduled COLON CANCER [employer] SCREENING: of Medicine COLONOSCOPY [code = COLON CANCER SCREENING: COLONOSCOPY] Future Scheduled MAMMOGRAM ANNUAL [employer] [facility] [code = MAMMOGRAM of Medicin e ANNUAL] Future Scheduled TETANUS SHOT (ADULT) [employer] [facility] [code = TETANUS SHOT of Medi cine (ADULT)] Future Scheduled Diabetic foot [employer] [facility] examination of Medicine (regime/therapy) [code = 207134824] Future Scheduled BMI FOLLOW UP PLAN [employer] [facility] [code = BMI FOLLOW of Medici ne UP PLAN] Future Scheduled HIV SCREENING [code [employer] [facility] = HIV SCREENING] of Medicine Future Scheduled CERVICAL CANCER [employer] [facility] SCREENING 3 YEAR of Medicine FOLLOW UP [code = CERVICAL CANCER SCREENING 3 YEAR FOLLOW UP] Future Scheduled A1C TESTING EVERY 6 [employer] [facility] MONTHS [code = A1C of Medici ne TESTING EVERY 6 MONTHS] Future Scheduled ANNUAL DIABETIC [employer] RETINOPATHY of Medicine SCREENING [code = ANNUAL DIABETIC RETINOPATHY SCREENING] Future Scheduled COLON CANCER [employer] SCREENING: of Medicine COLONOSCOPY [code = COLON CANCER SCREENING: COLONOSCOPY] Future Scheduled MAMMOGRAM ANNUAL [employer] [facility] [code = MAMMOGRAM of Medicin e ANNUAL] Future Scheduled TETANUS SHOT (ADULT) [employer] [facility] [code = TETANUS SHOT of Medi cine (ADULT)] Future Scheduled Diabetic foot [employer] [facility] examination of Medicine (regime/therapy) [code = 612347126] Future Scheduled BMI FOLLOW UP PLAN [employer] [facility] [code = BMI FOLLOW of Medici ne UP PLAN] Future Scheduled HIV SCREENING [code [employer] [facility] = HIV SCREENING] of Medicine Future Scheduled CERVICAL CANCER [employer] [facility] SCREENING 3 YEAR of Medicine FOLLOW UP [code = CERVICAL CANCER SCREENING 3 YEAR FOLLOW UP] Future Scheduled A1C TESTING EVERY 6 [employer] [facility] MONTHS [code = A1C of Medici ne TESTING EVERY 6 MONTHS] Future Scheduled ANNUAL DIABETIC [employer] [facility] RETINOPATHY of Medicine SCREENING [code = ANNUAL DIABETIC RETINOPATHY SCREENING] Future Scheduled HANDICAPPED PLACARD Ordered: [employer] [facility] [code = NOCPT] 11/28/2019 of Medicine Future Scheduled COLON CANCER [employer] [facility] SCREENING: of Medicine COLONOSCOPY [code = COLON CANCER SCREENING: COLONOSCOPY] Future Scheduled MAMMOGRAM ANNUAL [employer] [facility] [code = MAMMOGRAM of Medicin e ANNUAL] Future Scheduled TETANUS SHOT (ADULT) [employer] [facility] [code = TETANUS SHOT of Medi cine (ADULT)] Future Scheduled Diabetic foot [employer] [facility] examination of Medicine (regime/therapy) [code = 419441458] Future Scheduled BMI FOLLOW UP PLAN [employer] [facility] [code = BMI FOLLOW of Medici ne UP PLAN] Future Scheduled HIV SCREENING [code [employer] [facility] = HIV SCREENING] of Medicine Future Scheduled CERVICAL CANCER [employer] [facility] SCREENING 3 YEAR of Medicine FOLLOW UP [code = CERVICAL CANCER SCREENING 3 YEAR FOLLOW UP] Future Scheduled A1C TESTING EVERY 6 [employer] [facility] MONTHS [code = A1C of Medici ne TESTING EVERY 6 MONTHS] Future Scheduled ANNUAL DIABETIC [employer] [facility] RETINOPATHY of Medicine SCREENING [code = ANNUAL DIABETIC RETINOPATHY SCREENING] Future Scheduled COLON CANCER [employer] [facility] SCREENING: of Medicine COLONOSCOPY [code = COLON CANCER SCREENING: COLONOSCOPY] Future Scheduled MAMMOGRAM ANNUAL [employer] [facility] [code = MAMMOGRAM of Medicin e ANNUAL] Future Scheduled TETANUS SHOT (ADULT) [employer] [facility] [code = TETANUS SHOT of Medi cine (ADULT)] Future Scheduled Diabetic foot [employer] [facility] examination of Medicine (regime/therapy) [code = 698292642] Future Scheduled BMI FOLLOW UP PLAN [employer] [facility] [code = BMI FOLLOW of Medici ne UP PLAN] Future Scheduled HIV SCREENING [code [employer] [facility] = HIV SCREENING] of Medicine Future Scheduled CERVICAL CANCER [employer] SCREENING 3 YEAR of Medicine FOLLOW UP [code = CERVICAL CANCER SCREENING 3 YEAR FOLLOW UP] Future Scheduled A1C TESTING EVERY 6 [employer] [facility] MONTHS [code = A1C of Medici ne TESTING EVERY 6 MONTHS] Future Scheduled ANNUAL DIABETIC [employer] [facility] RETINOPATHY of Medicine SCREENING [code = ANNUAL DIABETIC RETINOPATHY SCREENING] Future Scheduled COLON CANCER [employer] [facility] SCREENING: of Medicine COLONOSCOPY [code = COLON CANCER SCREENING: COLONOSCOPY] Future Scheduled MAMMOGRAM ANNUAL [employer] [facility] [code = MAMMOGRAM of Medicin e ANNUAL] Future Scheduled TETANUS SHOT (ADULT) [employer] [facility] [code = TETANUS SHOT of Medi cine (ADULT)] Future Scheduled Diabetic foot [employer] [facility] examination of Medicine (regime/therapy) [code = 949809360] Future Scheduled BMI FOLLOW UP PLAN [employer] [facility] [code = BMI FOLLOW of Medici ne UP PLAN] Future Scheduled HIV SCREENING [code [employer] [facility] = HIV SCREENING] of Medicine Future Scheduled CERVICAL CANCER [employer] [facility] SCREENING 3 YEAR of Medicine FOLLOW UP [code = CERVICAL CANCER SCREENING 3 YEAR FOLLOW UP] Future Scheduled A1C TESTING EVERY 6 [employer] [facility] MONTHS [code = A1C of Medici ne TESTING EVERY 6 MONTHS] Future Scheduled FLU VACCINE > 6 [employer] [facility] MONTHS [code = FLU of Medici ne VACCINE > 6 MONTHS] Future Scheduled ANNUAL DIABETIC [employer] [facility] RETINOPATHY of Medicine SCREENING [code = ANNUAL DIABETIC RETINOPATHY SCREENING] Future Scheduled PAP SMEAR - IMAGE Ordered: [facility] Test GUIDED - NON 02/21/2020 of Medicine MEDICARE [code = NOCPT] Future Scheduled HPV HIGH RISK W Ordered: [facility] Test GENOTYPE,TP [code = 02/21/2020 of Medic ine NOCPT] Future Scheduled WET PREP W/ TRICH Ordered: [facility] Test CULT REFLEX [code = 02/21/2020 of Medic ine NOCPT] Future Scheduled VAGINAL PATHOGEN DNA Ordered: [facility] Test PANEL [code = NOCPT] 02/21/2020 of Medi cine Future Scheduled COLON CANCER [employer] [facility] SCREENING: of Medicine COLONOSCOPY [code = COLON CANCER SCREENING: COLONOSCOPY] Future Scheduled MAMMOGRAM ANNUAL [facility] Test [code = MAMMOGRAM of Medicin e ANNUAL] Future Scheduled TETANUS SHOT (ADULT) [employer] [facility] [code = TETANUS SHOT of Medi cine (ADULT)] Future Scheduled Diabetic foot [employer] [facility] examination of Medicine (regime/therapy) [code = 845623430] Future Scheduled BMI FOLLOW UP PLAN [employer] [facility] [code = BMI FOLLOW of Medici ne UP PLAN] Future Scheduled HIV SCREENING [code [employer] [facility] = HIV SCREENING] of Medicine Future Scheduled CERVICAL CANCER [employer] [facility] SCREENING 3 YEAR of Medicine FOLLOW UP [code = CERVICAL CANCER SCREENING 3 YEAR FOLLOW UP] Future Scheduled A1C TESTING EVERY 6 [employer] [facility] MONTHS [code = A1C of Medici ne TESTING EVERY 6 MONTHS] Future Scheduled FLU VACCINE > 6 [employer] [facility] MONTHS [code = FLU of Medici ne VACCINE > 6 MONTHS] Future Scheduled ANNUAL DIABETIC [employer] [facility] RETINOPATHY of Medicine SCREENING [code = ANNUAL DIABETIC RETINOPATHY SCREENING] Future Scheduled ORT - XR FINGER Ordered: [employer] [facility] RIGHT 2V ( CHARGE 02/21/2020 of Medicin e ONLY) [code = 04661] Future Scheduled COLON CANCER [employer] [facility] SCREENING: of Medicine COLONOSCOPY [code = COLON CANCER SCREENING: COLONOSCOPY] Future Scheduled MAMMOGRAM [facility]AL [facility] Test [code = MAMMOGRAM of Medicin e ANNUAL] Future Scheduled TETANUS SHOT (ADULT) [employer] Test [code = TETANUS SHOT of Medi cine (ADULT)] Future Scheduled Diabetic foot [facility] Test examination of Medicine (regime/therapy) [code = 461813737] Future Scheduled BMI FOLLOW UP PLAN [facility] r College Test [code = BMI FOLLOW of Medici ne UP PLAN] Future Scheduled HIV SCREENING [code [facility] or [facility] Test = HIV SCREENING] of Medicine Future Scheduled CERVICAL CANCER [facility] Test SCREENING 3 YEAR of Medicine FOLLOW UP [code = CERVICAL CANCER SCREENING 3 YEAR FOLLOW UP] Future Scheduled A1C TESTING EVERY 6 [facility] or College Test MONTHS [code = A1C of Medici ne TESTING EVERY 6 MONTHS] Future Scheduled FLU VACCINE > 6 [facility] Test MONTHS [code = FLU of Medici ne VACCINE > 6 MONTHS] Future Scheduled ANNUAL DIABETIC [facility] RETINOPATHY of Medicine SCREENING [code = ANNUAL DIABETIC RETINOPATHY SCREENING] Future Scheduled GEL ONE PROC INJ 1 Occurrences [facility] Test [code = 68901] starting of Medicine 09/26/2020 until 09/26/2021 Future Scheduled XR HAND RIGHT 1 Occurrences [facility] Test (COMPLETE) [code = [place] [address]-0] 08/28/2020 until 03/28/2021 Future Scheduled NM GASTRIC EMPTYING [address] [facility] Test SOLID [code = 08297] starting of Medi cine 06/20/2019 until 12/18/2020 Instructions Shortness of Breath, [facility] Adult, [facility] Instructions Cirrhosis [facility] Encounters Start End Encounter Admission Attending Care Care Encounter Source Date/Time Date/Time Type Type Clinicians Facility Department ID 2021-07-27 Outpatient jimbo [facility] [id number] [facility] 15:08:48 [facility] [id number] [facility] 2021-07-27 Outpatient lc.patric [facility] [id number] [facility] 09:09:07 eyden 20611 [facility] 2021-07-24 Outpatient lc.nyarp [facility] [id number] [facility] 20:47:19 [facility] 2021-07-24 Outpatient lc.nyarp [facility] [id number] [facility] 20:45:14 [id number] [facility] 2021-07-24 Outpatient lc.nyarp [facility] [id number] [facility] 20:41:03 [id number] [facility] 2021-07-24 Outpatient lc.nyarp [facility] [id number] [facility] 20:11:15 [id number] [facility] 2021-07-24 Outpatient lc.nyarp [facility] [id number] [facility] 19:02:39 [id number] [facility] 2021-07-24 Outpatient lc.nyarp [facility] [id number] [facility] 18:21:42 [id number] [facility] 2021-07-24 Outpatient lc.sdarp [facility] [id number] [facility] 18:15:25 [id number] [facility] 2021-07-24 Outpatient lc.nyarp [facility] [id number] [facility] 18:10:52 [id number] [facility] 2021-07-24 Outpatient [facility] [id number] [facility] 18:00:18 [id number] [facility] 2021-07-20 Outpatient MARES, [facility] Surgery [id number] SLE 05:39:43 IVELISSE 2021-07-20 Outpatient JAY, TOM [facility] Surgery [id number] [facility] 00:01:39 2021-07-19 Outpatient JAY, TOM [facility] Surgery [id number] [facility] 09:59:31 2021-07-15 Outpatient MARES, [facility] Surgery [id number] [facility] 13:50:46 IVELISSE 2021-05-08 Inpatient [facility] [id number] [facility] 17:40:[address] [facility] 2022-02-26 2022-02-26 Outpatient BRIELLE TIMMONS [facility] [id number] [facility] 15:40:59 15:56:31 [facility]ESH [facility] [employer] [employer] 2022-02-12 2022-02-12 Outpatient RIK PETTIT SLE [id number] [facility] 11:52:01 11:52:01 CAM 2022-01-13 2022-01-13 Outpatient RIK PETTIT SLE [id number] [facility] 10:09:26 23:59:00 CAM 2022-01-13 2022-01-13 Outpatient WILLY JOLLY SLE [id number] [facility] 12:00:58 12:00:58 2021-11-24 2021-11-24 Outpatient SHENA [facility] [id number] [facility] 11:17:44 12:11:35 LALI [employer] 2021-11-17 2021-11-17 Outpatient SHENA [facility] [id number] [facility] 11:18:44 12:17:07 [facility]I [employer] 2021-11-07 2021-11-07 Outpatient IRVIN AIKEN [facility] [id number] [facility] 14:55:03 15:31:12 [facility] 2021-11-03 2021-11-03 Outpatient SHENA [facility] [id number] [facility] 10:52:14 12:07:26 [facility]ALI [employer] 2021-10-28 2021-10-28 Outpatient EUGENIO [facility] [id number] [facility] 12:33:24 13:03:30 BETITO Delgado ege of Medicin e 2021-10-22 2021-10-22 Outpatient [facility] [id number] SLE 00:00:00 00:00:00 DIPABEN 2021-10-09 2021-10-09 Outpatient DIAZ [facility] [id number] [facility] 07:38:45 07:58:57 EDYTA Colle ge of Medicin e 2021-09-11 2021-09-11 Office Tom Mann [facility] [id number] [facility] 11:29:03 11:59:03 Visit Cam [facility] 2021-09-112021-09-11 Outpatient WILLY PHILLIPS, SLE [facility] [id number] [facility] 11:29:03 11:29:03 CAM 2021-09-09 2021-09-09 Telephone Canreed, [facility] [id number] 00:00:00 00:00:00 [facility] 2021-09-05 2021-09-05 Telephone Canreed, [facility] [id number] 00:00:00 00:00:00 [facility] 2021-08-22 2021-08-22 Office BRIELLE Shaffer 1.2.840.114 [id number] [facility] 08:30:00 10:15:12 Visit Kostas AMBULATOR 350.1.13.21 College Y 0.2.7.2.686 of [id number] [facility] 300 e 2021-08-20 2021-08-20 Emergency X MUTENDEREKI [facility] ERT [id number] Univers 16:59:00 20:29:00 , [facility] 2021-08-20 2021-08-20 Emergency Mutendereki [facility] 1.2.840.114 [id number] Univers 16:59:00 20:29:[address] , [facility] 350.1.13.10 [facility] 4.2.7.2.686 [facility] [phone] [address] ([facility]) 2021-08-18 2021-08-18 Office BRIELLE Shaffer 1.2.840.114 [id number] [facility] 11:30:00 12:48:01 Visit Kostas AMBULATOR 350.1.13.21 College Y 0.2.7.2.686 of [id number] [facility] praneeth 300 e 2021-08-12 2021-08-12 [facility] [id number] 00:00:00 00:00:00 [facility] 2021-08-08 2021-08-08 Outpatient [facility] [id number] [facility] 10:00:06 12:26:30 [facility] 2021-08-08 2021-08-08 Outpatient [facility] [id number] [facility] 09:59:31 11:37:26 [facility] 2021-08-06 2021-08-06 Outpatient EL SLE SLE [id number] [facility] 00:00:00 00:00:00 2021-08-04 2021-08-04 Outpatient [facility] [id number] [facility] 07:34:02 07:34:02 [facility] 2021-08-04 2021-08-04 Outpatient [facility] [id number] [facility] 07:33:40 07:33:40 [facility] 2021-07-30 2021-07-30 Office JOSÉ MIGUEL TAPIA, BEL [id number] [id number] [facility] 10:38:37 12:22:51 Visit IVELISSE AMBULATOR 350.1.13.21 College Y 0.2.7.2.686 of [id number] Medi praneeth 600 e 2021-07-30 2021-07-30 Outpatient [facility] [id number] [facility] 10:55:30 10:55:30 [facility] 2021-07-29 2021-07-29 [facility] [id number] [facility] 13:34:59 23:59:00 Encounter [facility] 2021-07-29 2021-07-29 Outpatient CODY JOSEPH SLE [id number] SLE 13:34:59 23:59:00 [facility] 2021-07-29 2021-07-29 Outpatient EL SLE SLEH [id number] [facility] 00:00:00 00:00:00 2021-07-25 2021-07-25 Outpatient EL GENE, SLE SLEH [id number] [facility] 00:00:00 00:00:00 DOE 2021-07-23 2021-07-23 Outpatient EL SLE SLEH [id number] [facility] 00:00:00 00:00:00 2021-07-21 2021-07-21 Office SAMINA [facility] 1.2.840.114 [id number] [facility] 11:09:51 13:05:23 Visit CYNDI Carias AMBULATOR 350.1.13.21 College Y 0.2.7.2.686 [facility] [id number] Medi praneeth 370 e 2021-07-18 2021-07-18 [facility] [id number] 00:00:00 00:00:00 [facility] 2021-07-15 2021-07-15 [facility] [id number] 00:00:00 00:00:00 [facility] 2021-07-02 2021-07-02 Outpatient JOSÉ MIGUEL TAPIA [facility] [id number] [facility] 11:18:49 12:00:08 IVELISSE [employer] 2021-06-18 2021-06-18 Outpatient [facility] [id number] [facility] 11:29:57 14:05:20 [facility] 2021-06-18 2021-06-18 Outpatient [facility] [id number] [facility] 11:29:21 13:46:10 [facility] 2021-06-17 2021-06-17 Outpatient SHENA [facility] [id number] [facility] 15:28:38 16:36:30 LALI [employer] 2021-06-17 2021-06-17 Outpatient EL GENE, SLE SLE [id number] [facility] 00:00:00 00:00:00 DIPABEN 2021-06-11 2021-06-11 Outpatient SHENA [facility] [id number] [facility] 14:56:27 16:03:26 LALI [employer] 2021-06-09 2021-06-09 Outpatient [facility] [id number] [facility] 11:32:18 11:32:18 [facility] [employer] [facility] [employer] 2021-06-09 2021-06-09 Office BEL Mares 1.2.840.114 [id number] [facility] 10:48:51 10:58:51 Visit Ivelisse Declan AMBULATOR 350.1.13.21 College Y 0.2.7.2.686 [id number] Medi praneeth 600 e 2021-06-05 2021-06-05 Outpatient SHENA [facility] [id number] [facility] 11:56:38 12:54:56 LALI [employer] 2021-05-27 2021-05-27 Outpatient SHENA [facility] [id number] [facility] 15:22:55 16:17:41 LALI [employer] 2021-05-27 2021-05-27 Outpatient EUGENIO [facility] [id number] [facility] 14:43:13 15:17:03 BETITO Delgado ege of Medicin e 2021-05-20 2021-05-20 Outpatient TURNER [facility] [id number] [facility] 12:51:23 15:20:08 MANASA [employer] 2021-05-14 2021-05-14 Outpatient JOSÉ MIGUEL TAPIA, [facility] [id number] [facility] 12:55:02 14:05:57 IVELISSE [employer] 2021-05-14 2021-05-14 Outpatient [facility] [id number] [facility] 13:24:40 13:24:40 [facility] [employer] [employer] 2021-05-11 2021-05-11 Telephone Roxana [facility] [id number] [facility] 00:00:00 00:00:00 [facility] 2021-05-10 2021-05-10 Telephone Roxana [facility] [id number] 00:00:00 00:00:00 [facility] 2021-05-09 2021-05-09 [facility] [id number] 00:00:00 00:00:00 [facility] 2021-05-08 2021-05-08 [facility] [id number] 05:43:00 12:53:00 [facility] 2021-05-08 2021-05-08 [facility]est[facility] [id number] 07:50:00 10:44:00 Event Archana [facility] 2021-05-08 2021-05-08 Surgery José Miguel [facility] [id number] 07:30:00 10:00:00 [facility] 2021-05-08 2021-05-08 Outpatient SLEH SLE [id number] [facility] 00:00:00 00:00:00 2021-05-08 2021-05-08 Travel [facility] [id number] [facility] 00:[facility]00 00:00:00 [facility] 2021-05-07 2021-05-07 [facility] [id number] 10:00:00 23:59:00 Encounter [facility] 2021-05-06 2021-05-07 Outpatient BRIELLE CHATTERJEE [facility] [id number] [facility] 15:07:17 07:35:25 LALI Isabell ribeiro of Medicin e 2021-05-07 2021-05-07 Outpatient EL SLEH SLE [id number] [facility] 00:00:00 00:00:00 2021-05-07 2021-05-07 Telephone [facility] [id number] 00:00:00 00:00:00 [facility] 2021-05-07 2021-05-07 Travel [facility] [id number] [facility] 00:00:00 00:00:00 [facility] 2021-05-06 2021-05-06 [facility] [id number] 12:43:50 23:59:00 Encounter [facility] 2021-05-06 2021-05-06 Outpatient EL SLEH SLEH [id number] [facility] 00:00:00 00:00:00 2021-05-06 2021-05-06 Outpatient SLEH SLEH [id number] [facility] 00:00:00 00:00:00 2021-05-06 2021-05-06 Outside [facility] [id number] 00:00:00 00:00:00 Orders [facility] 2021-05-01 2021-05-01 Office BRIELLE TIMMONS 1.2.840.114 [id number] [facility] 15:30:19 17:28:23 Visit BHAVESH AMBULATOR 350.1.13.21 College Y 0.2.7.2.686 of [id number] Medi praneeth 300 e 2021-05-01 2021-05-01 Office BRIELLE Timmons 1.2.840.114 [id number] 15:30:19 17:28:23 Visit Bhavesh AMBULATOR 350.1.13.21 Y 0.2.7.2.686 [id number] 300 2021-04-30 2021-04-30 Outpatient [facility] [id number] [facility] 09:43:45 09:43:45 [facility] 2021-04-30 2021-04-30 Office BRIELLE Mares 1.2.840.114 [id number] [facility] 09:06:11 09:16:11 Visit Ivelisse R AMBULATOR 350.1.13.21 College Y 0.2.7.2.686 of [id number] Medi praneeth 600 e 2021-04-30 2021-04-30 Office BRIELLE Mares 1.2.840.114 [id number] 09:06:11 09:16:11 Visit Ivelisse R AMBULATOR 350.1.13.21 Y 0.2.7.2.686 [id number] 600 2021-04-29 2021-04-30 Outpatient [facility] [id number] [facility] 14:23:39 07:36:52 [employer] 2021-04-29 2021-04-30 Outpatient SHENA Bruna [facility] [id number] [facility] 15:04:36 07:36:13 LALI [employer] 2021-04-29 2021-04-29 Outpatient BRIELLE BECKER [facility] [id number] [facility] 14:08:21 14:56:39 BETITO john of Medicin e 2021-04-29 2021-04-29 Office DanteBRIELLE 1.2.840.[id number] [place] [address] 07:38:34 09:28:27 Visit Hugh AMBULATOR 350.1.13.21 College Young Y 0.2.7.2.686 of [id number] Medi praneeth 800 e 2021-04-29 2021-04-29 Office DanteBRIELLE 1.2.840.114 [id number] 07:38:34 09:28:27 Visit Hugh AMBULATOR 350.1.13.21 Young Y 0.2.7.2.686 [id number] 800 2021-04-19 2021-04-19 Reftyra Huitron [facility] [id number] 00:00:00 00:00:00 [facility] 2021-04-09 2021-04-09 Office BRIELLE MARES III 1.2.460.107 [id number] [facility] 14:10:54 16:10:54 Visit IVELISSE AMBULATOR 350.1.13.21 College Y 0.2.7.2.686 of [id number] [facility] praneeth 600 e 2021-04-09 2021-04-09 Office BRIELLE Mares 1.2.840.114 [id number] 14:10:54 14:20:54 Visit Ivelisse Manriquez AMBULATOR 350.1.13.21 Y 0.2.7.2.686 [id number] 600 2021-03-27 2021-03-27 Hospital Tom Abraham [facility] [id number] 08:24:00 13:36:00 Encounter [facility] 2021-03-27 2021-03-27 Anesthesia Yared Encinas [facility] [id number] 11:12:00 12:19:00 Event [facility] 2021-03-27 2021-03-27 Surgery Tom Mann [facility] [id number] 10:30:00 11:30:00 [facility] 2021-03-27 2021-03-27 Travel [facility] [id number] [facility] 00:00:00 00:00:00 [facility] 2021-03-26 2021-03-26 [facility] [id number] 09:30:00 23:59:00 Encounter [facility] 2021-03-26 2021-03-26 Office Trofijazmin BCM 1.2.840.114 [id number] [facility] 13:57:27 16:12:30 Visit , Clau AMBULATOR 350.1.13.21 College Y 0.2.7.2.686 of [id number] [facility] 310 e 2021-03-26 2021-03-26 Office Trofimovsky BC 1.2.840.114 [id number] 13:57:27 16:12:30 Visit , Clau AMBULATOR 350.1.13.21 Y 0.2.7.2.686 [id number] 310 2021-03-26 2021-03-26 Outpatient EL SLEH SLEH [id number] [facility] 00:00:00 00:00:00 2021-03-26 2021-03-26 Outpatient EL SLEH SLEH [id number] [facility] 00:00:00 00:00:00 2021-03-26 2021-03-26 Travel [facility] [id number] [facility] 00:00:00 00:00:00 [facility] 2021-03-23 2021-03-23 Emergency Jaylin [facility] 1.2.438.727 [id number] [facility] 18:42:00 22:35:00 [facility] 350.1.13.10 [place] [id number] [facility] 014 Branch (CLC) 2021-03-23 2021-03-23 Emergency [facility] 1.2.844.417 [id number] 18:42:00 22:35:00 [facility] 350.1.13.10 Clear 4.2.7.2.686 [facility] [id number] Hospital 014 (CLC) 2021-03-23 2021-03-23 Emergency X [facility] [id number] Univers 18:42:00 18:42:00 [facility] 2021-03-21 2021-03-21 Telephone German [facility] [id number] 00:00:00 00:00:00 [facility] 2021-03-20 2021-03-20 [facility] [id number] 00:[facility]00 00:00:00 [facility] 2021-03-20 2021-03-20 [facility]ill [facility] [id number] 00:00:00 00:00:00 [facility] 2021-03-19 2021-03-19 Outpatient BRIELLE JORDAN [facility] [id number] [facility] 09:05:47 09:25:14 [facility] 2021-02-21 2021-02-21 [facility] Saul Huitrondarwin [place] [facility] [id number] 09:35:26 23:59:[address] [facility] 2021-02-21 2021-02-21 Outpatient WILLY HUITRON [facility] SLE [id number] [facility] 00:00:00 00:00:00 RENE 2021-02-19 2021-02-19 Office BRIELLE Adams 1.2.840.114 [id number] [facility] 13:08:15 15:54:43 Visit Benjy Montilla AMBULATOR 350.1.13.21 College Y 0.2.7.2.686 of [id number] [facility] praneeth 800 e 2021-02-19 2021-02-19 Office BRIELLE Adams 1.2.840.114 [id number] 13:08:15 15:54:43 Visit Benjy oMntilla AMBULATOR 350.1.13.21 Y 0.2.7.2.686 [id number] 800 2021-02-13 2021-02-13 Telephone Tera [facility] [id number] 00:00:00 00:00:00 [facility] 2021-02-04 2021-02-04 Outpatient GENE, [facility] [id number] [facility] 16:00:13 16:12:22 DOE ribeiro of Medicin e 2021-01-21 2021-01-21 Video Gina Mackey [facility] [id number] 13:47:29 14:17:29 Telemedici [facility] 2021-01-21 2021-01-21 Outpatient WILLY MACKEY [facility] SLE [id number] SLE 00:00:00 00:00:00 [facility] 2021-01-10 2021-01-17 Hospital ER Davida Dillon [facility] [id number] 14:24:00 16:09:00 Encounter Varun Mejias Maria M edical Hotze, Timothy [facility] 2021-01-17 2021-01-17 Outside [facility], [facility] [id number] 00:00:00 00:00:00 Orders Laurie Mayorga [facility] 2021-01-13 2021-01-13 Telephone Tera [facility] [id number] 00:00:00 00:00:00 [facility] 2021-01-13 2021-01-13 Documentat Braden [facility] [id number] 00:00:00 00:00:00 elijah Bennett [facility] 2021-01-10 2021-01-10 Emergency ER [facility] Emergency [id number] SLE 14:23:00 14:23:00 2021-01-10 2021-01-10 Orders [facility] [id number] 00:00:00 00:00:00 Only [facility] 2021-01-10 2021-01-10 Travel [facility] [id number] [facility] 00:00:00 00:00:00 [facility] 2021-01-06 2021-01-06 Orders Tha [facility] [id number] 00:00:00 00:00:00 Only Corinne Bacon [facility] 2021-01-01 2021-01-01 Telephone Tera [facility] [id number] 00:00:00 00:00:00 Kristyn Hickman [facility] 2020-12-26 2020-12-26 Office Tom Mann [facility] [id number] [facility] 15:05:33 15:35:33 Visit Rene Huitron [place] [facility] 2020-12-26 2020-12-26 Orders Tom Abraham [facility] [id number] 15:05:39 15:15:39 Only [facility] 2020-12-26 2020-12-26 Outpatient BCM [facility] [id number] [facility] 13:26:40 14:21:[address] [facility] 2020-12-26 2020-12-26 Outpatient EL SLE SLE [id number] [facility] 00:00:00 00:00:00 2020-12-26 2020-12-26 Outpatient EL SLEH SLEH [id number] [facility] 00:00:00 00:00:00 2020-12-25 2020-12-25 Telephone Buster [facility] [id number] 00:00:00 00:00:00 [facility] 2020-12-19 2020-12-19 Office Desiree [facility] 1.2.840.114 [id number] [facility] 13:04:37 17:24:59 Visit , Clau AMBULATOR 350.1.13.21 College Y 0.2.7.2.686 of [id number] Medi praneeth 310 e 2020-12-19 2020-12-19 Office Donaldfimovsky [facility] 1.2.840.114 [id number] 13:04:37 17:24:59 Visit , Clau AMBULATOR 350.1.13.21 Y 0.2.7.2.686 [id number] 310 2020-12-16 2020-12-16 Stefano Joseph [facility] [id number] [facility] 00:00:00 00:00:00 Only [facility] 2020-12-16 2020-12-16 Stefano Joseph [facility] [id number] 00:00:00 00:00:00 Only [facility] 2020-10-03 2020-10-03 Rajni Serrato [facility] [id number] 00:00[facility]00 00[facility]00[facility]00 [facility] 2020-10-01 2020-10-01 Office BRIELLE Turner 1.2.840.114 [id number] [facility] 09:15:54 10:33:06 Visit Manasa AMBULATOR 350.1.13.21 College Y 0.2.7.2.686 of [id number] Medi praneeth 600 e 2020-10-01 2020-10-01 Office BRIELLE Turner 1.2.840.114 [id number] 09:15:54 10:33:06 Visit Manasa AMBULATOR 350.1.13.21 Y 0.2.7.2.686 [id number] 600 2020-10-01 2020-10-01 Outpatient [facility] [id number] [place] 09:29:06 09:29:06 [facility] [employer] [facility] 2020-10-01 2020-10-01 Office BRIELLE Timmons 1.2.840.[id number] [place] [address] 07:43:09 08:08:09 Visit Bhavesh AMBULATOR 350.1.13.21 College Y 0.2.7.2.686 of [id number] Medi praneeth 300 e 2020-10-01 2020-10-01 Office BRIELLE Timmons 1.2.840.114 [id number] 07:43:09 08:08:09 Visit Bhavesh AMBULATOR 350.1.13.21 Y 0.2.7.2.686 [id number] 300 2020-09-26 2020-09-26 Office BRIELLE Coello 1.2.840.114 [id number] [facility] 12:47:25 13:56:42 Visit Rivera AMBULATOR 350.1.13.21 College Y 0.2.7.2.686 of [id number] Medi praneeth 600 e 2020-09-26 2020-09-26 Office Coello, BCM 1.2.840.114 [id number] 12:47:25 13:56:42 Visit Rivera AMBULATOR 350.1.13.21 Y 0.2.7.2.686 [id number] 600 2020-09-26 2020-09-26 Outpatient BCM [facility] [id number] [facility] 12:56:21 12:56:21 [employer] [facility] 2020-09-23 2020-09-23 Office Trofimovsky BCM 1.2.840.114 79 [id number] [facility] 13:22:11 16:38:42 Visit , Clau AMBULATOR 350.1.13.21 College Y 0.2.7.2.686 of [id number] Medi praneeth 310 e 2020-09-23 2020-09-23 Office Trofimovsky BCM 1.2.840.114 [id number] 13:22:11 16:38:42 Visit , Clau AMBULATOR 350.1.13.21 Y 0.2.7.2.686 [id number] 310 2020-09-10 2020-09-10 Outpatient TROFIMOVSKY [facility] BC [id number] [facility] 11:41:13 16:50:38 , CLAU [employer] 2020-08-28 2020-08-28 Office Trofimovsky [facility] 1.2.840.114 [id number] [facility] 11:27:42 16:43:15 Visit , Clau AMBULATOR 350.1.13.21 College Y 0.2.7.2.686 of [id number] Medi praneeth 310 e 2020-08-28 2020-08-28 Office Trofimovsky [facility] 1.2.840.114 78 [id number] 11:27:42 16:43:15 Visit , Clau AMBULATOR 350.1.13.21 Y 0.2.7.2.686 [id number] 310 2020-08-28 2020-08-28 Office José Miguel BCM 1.2.840.114 [id number] [facility] 14:24:08 15:49:29 Visit Ivelisse R AMBULATOR 350.1.13.21 College Y 0.2.7.2.686 of [id number] Medi praneeth 600 e 2020-08-28 2020-08-28 Office BRIELLE Mares 1.2.840.114 [id number] 14:24:08 15:49:29 Visit Ivelisse R AMBULATOR 350.1.13.21 Y 0.2.7.2.686 [id number] 600 2020-08-28 2020-08-28 Outpatient [facility] [id number] [place] 14:51:57 14:51:57 [employer] [facility] 2020-08-28 2020-08-28 [facility] [id number] 00:00:00 00:00:00 [facility] 2020-08-22 2020-08-22 Outpatient DANTE, [facility] [id number] [facility] 10:31:16 10:56:59 ALONZO [facility] 2020-08-19 2020-08-19 Outpatient TROFIMOVSKY [facility] [id number] [id number] [facility] 00:00:00 00:00:00 , CLAU [facility] 2020-08-19 2020-08-19 Outpatient TROFIMOVSKY [facility] [id number] [facility] 00:00:00 00:00:00 , CLAU [employer] [facility] 2020-08-13 2020-08-13 Outpatient [facility] [id number] [facility] 12:57:02 13:49:26 [facility] [employer] [facility] [employer] 2020-08-13 2020-08-13 Outpatient TALIB, [facility] [id number] [facility] 12:17:49 13:16:53 MAAME [employer] 2020-08-13 2020-08-13 Stefano Montana [facility] [id number] 00:00:00 00:00:00 Only Beulah Bradley [facility] 2020-08-06 2020-08-06 Outpatient TROFIMOVSKY [facility] [id number] [facility] 09:50:59 10:59:57 , CLAU Whyte e of Medicin e 2020-08-06 2020-08-06 Refill Tom Mann [facility] [id number] 00:00:00 00:00:00 [facility] 2020-08-02 2020-08-02 Abstract [facility] [id number] 00:00:00 00:00:00 Srinivasutkaia [facility] 2020-08-01 2020-08-01 Office Elvin Dubois [facility] Encounter/ Legacy 00:00:00 00:00:00 Visit Federica Jane [id number] Communi [id number] [facility] 2020-08-01 2020-08-01 Office Elvin Dubois [facility] Encounter/ Legacy 00:00:00 00:00:00 Visit Federica Jane [id number] Communi 150047 [facility] 2020-07-31 2020-07-31 Tele[facility] [id number] [facility] 00:00:00 00:00:00 [facility] 2020-07-02 2020-07-02 Office Kwesi [facility] Encount er/ Legacy 00:00:00 00:00:00 Visit Antonia [id number] Co mmuni [id number] [facility] 2020-06-26 2020-06-26 Office Desiree [facility] 1.2.840.114 [id number] [facility] 13:37:14 16:51:47 Visit , Clau AMBULATOR 350.1.13.21 College Y 0.2.7.2.686 581.8433218 Medi praneeth 310 e 2020-06-26 2020-06-26 Office Desiree [facility] 1.2.840.114 77 [id number] 13:37:14 16:51:47 Visit , Clau AMBULATOR 350.1.13.21 Y 0.2.7.2.686 [id number] 310 2020-06-24 2020-06-24 Office BRIELLE Jordan 1.2.840.[id number] [place] [address] 16:13:58 17:38:11 Visit Laurie Mayorga AMBULATOR 350.1.13.21 College Y 0.2.7.2.686 of 855.9833184 [facility] praneeth 325 e 2020-06-24 2020-06-24 Office Sheikh BRIELLE 1.2.840.114 [id number] 16:13:58 17:38:11 Visit Laurie Mayorga AMBULATOR 350.1.13.21 Y 0.2.7.2.686 [id number] 325 2020-06-18 2020-06-18 Outpatient [facility] [id number] [facility] 14:28:19 15:20:38 [facility]in [facility] 2020-06-13 2020-06-13 Orders Doctor REJI 1.2.840.114 [id number] Univers 00:00:00 00:00:00 Only Unassigned, RALF 350.1.13.10 ity of [place] [facility] 4.2.7.2.686 Koko as [phone] [facility] [address] 2020-06-13 2020-06-13 Orders Doctor REJI 1.2.840.114 [id number] 00:00:00 00:00:00 Only Unassigned, RALF 350.1.13.10 [place] [facility] 4.2.7.2.686 [id number] 009 2020-06-12 2020-06-12 Office BRIELLE Mares 1.2.840.114 [id number] [facility] 13:38:47 15:03:57 Visit Ivelisse Manriquez AMBULATOR 350.1.13.21 College Y 0.2.7.2.686 of 428.7737198 [facility] 600 e 2020-06-12 2020-06-12 Office BRIELLE Mares 1.2.840.114 [id number] 26 13:38:47 15:03:57 Visit Ivelisse R AMBULATOR 350.1.13.21 Y 0.2.7.2.686 638.7432188 600 2020-06-07 2020-06-07 Tom Yang [facility] [id number] 00:00[facility]00 00:00:00 [facility] 2020-06-04 2020-06-04 Rubina Almazan [facility] [id number] 00:00:00 00:00:00 [facility] 2020-05-28 2020-05-28 Transition AlexandragerberMatthew ribeiro 1.2.840.114 77 [id number] Univers 00:00:00 00:00:00 of Care Pauly Hickman Momin 350.1.13.10 i ty of [place] 4.2.7.2.686 [place] 351.6497534 [facility] [address] 2020-05-28 2020-05-28 Transition Elizabeth Parikhkaia 1.2.840.114 77 [id number] 00:00:00 00:00:00 of Care Pauly Rosey 350.1.13.10 [place] 4.2.7.2.686 [id number] 403 2020-05-22 2020-05-26 [facility] 1.2.840.11 4 [id number] Univers 22:24:00 17:13:00 Encounter Ezzo, [facility] 350.1.13.10 [facility] Jose Ricketts 4.2.7.2.686 [facility] [phone] [address] ([facility]) 2020-05-22 2020-05-26 [facility] 1.2.840.11 4 [id number] 22:24:00 17:13:00 Encounter Ezzo, [facility] 350.1.13.10 Jose Ricketts 4.2.7.2.686 WinsomeHugh min [phone] [place] [address] ([facility]) 2020-05-22 2020-05-22 Emergency X [facility] ERT [id number] Univers 22:24:00 22:24:00 HUGH daniel [facility] 2020-05-15 2020-05-15 Outpatient [facility] [id number] [facility] 00:00:00 00:00:00 [id number] 2020-05-15 2020-05-15 Outpatient EL [facility] [id number] [facility] 00:00:00 00:00:00 2020-04-22 2020-04-22 Office [facility] / Legacy 00:00:00 00:00:00 Visit Krys [id number] [facility] kati 125509 [facility] 2020-03-19 2020-03-19 Office Elvin Dubios [facility] Encounter/ Legacy 00:00:00 00:00:00 Visit Cosme Janeyla [id number] Communi [id number] [facility] 2020-03-19 2020-03-19 Office Elvin Dubois [facility] Encounter/ Legacy 00:00:00 00:00:00 Visit BuckCosmeFederica [id number] 9166 Communi 200969 [facility] 2020-03-19 2020-03-19 Office Elvin Dubois [facility] Encounter/ Legacy 00:00:00 00:00:00 Visit BuckCosmeFederica 134158 1443 Communi 034292 [facility] 2020-03-19 2020-03-19 Office Elmo [facility] Encoun ter/ Legacy 00:00:00 00:00:00 Visit Elvin marti [id number] Communi [id number] [facility] 2020-03-17 2020-03-17 Departed [facility] [id number] 22:19:00 23:32:00 Emergency Patients 05 Jason [facility] 2020-03-17 2020-03-17 Emergency [facility] [id number] 22:19:00 22:19:00 -[id number] [facility] 2020-03-13 2020-03-13 Office BRIELLE Mares 1.2.840.114 [id number] [facility] 13:38:35 14:39:07 Visit Ivelisse R AMBULATOR 350.1.13.21 College Y 0.2.7.2.686 [id number] [facility] 600 e 2020-03-13 2020-03-13 Office BRIELLE Mares 1.2.840.114 [id number] 89 13:38:35 14:39:07 Visit Ivelisse R AMBULATOR 350.1.13.21 Y 0.2.7.2.686 [id number] 600 2020-03-05 2020-03-05 Outpatient EL SLE [facility] [id number] [facility] 00:00:00 00:00:00 2020-02-28 2020-02-28 Office Irvin Aiken [facility] 1.2.840.[id number] [place] [address] 08:51:29 09:44:15 Visit Fariba 350.1.13.21 Co llege 0.2.7.2.686 of 833.3969511 [facility] praneeth 530 e 2020-02-28 2020-02-28 Office Irvin Aiken [facility] 1.2.840.114 [id number] 08:51:29 09:44:15 Visit Fariba 350.1.13.21 0.2.7.2.686 [id number] 530 2020-02-21 2020-02-21 Office BRIELLE Mares 1.2.840.[id number] [place] [address] 12:58:22 15:02:17 Visit Ivelisse R AMBULATOR 350.1.13.21 College Y 0.2.7.2.686 of [id number] [facility] praneeth 600 e 2020-02-21 2020-02-21 Office BRIELLE Mares 1.2.840.114 [id number] 12:58:22 15:02:17 Visit Ivelisse R AMBULATOR 350.1.13.21 Y 0.2.7.2.686 [id number] 600 2020-02-21 2020-02-21 Office [facility] 1.2.840.[id number] [place] [address] 10:50:49 11:50:49 Visit Tracilyn Fariba 350.1.13.21 C olyonny Latoya 0.2.7.2.686 of [id number] [facility] praneeth 520 e 2020-02-21 2020-02-21 Office [facility] 1.2.840.114 [id number] 10:50:49 11:50:49 Visit Tracilyn Fariba 350.1.13.21 Latoya 0.2.7.2.686 [id number] 520 2020-02-13 2020-02-13 Office Samina BC 1.2.840.114 75 [id number] [facility] 11:39:39 16:54:27 Visit Cyndi carias AMBULATOR 350.1.13.21 College Tse Y 0.2.7.2.686 of 856.0378353 [facility] praneeth 370 e 2020-02-13 2020-02-13 Office Bhavaandrea [facility] 1.2.840.114 75 [id number] 11:39:39 16:54:27 Visit uCyndi AMBULATOR 350.1.13.21 Tse Y 0.2.7.2.686 [id number] 370 2019-11-28 2019-11-28 Office Samina 1.2.840.6 [id number] 7 [id number] [facility] 08:52:33 10:27:37 Visit Cyndi carias 08896.1.1 C ollege Fawad 3.210.2.7 of .3.774418 Medici n .8 e 2019-11-28 2019-11-28 Telephone Jordan, 1.2.840.8 [id number] 741 [id number] [facility] 00:00:00 00:00:00 Lauire Ali 80698.1.1 C ollege 3.210.2.7 of .3.979007 Medici n .8 e 2019-11-27 2019-11-27 Telephone Jordan, 1.2.840.7 [id number] 741 15500 [facility] 00:00:00 00:00:00 Laurie Ali 11416.1.1 C ollege 3.210.2.7 of .3.107374 Medici n .8 e 2019-11-20 2019-11-20 Orders Tom Mann 1.2.840.4 [id number] 7 [id number] [facility] 00:00:00 00:00:00 Only K 00698.1.1 Danny josee 3.210.2.7 of .3.268134 Medici n .8 e 2019-11-15 2019-11-15 Orders Huitron, 1.2.840.8 [id number] 971 [facility] 00:00:00 00:00:00 Only Parxann 92351.1.1 Danny dora Thomas 3.210.2.7 of .3.945560 Medici n .8 e 2019-11-15 2019-11-15 Telephone Jordan, 1.2.840.1 [id number] 739 74938 [facility] 00:00:00 00:00:00 Laurie Ali 74280.1.1 C ollege 3.210.2.7 of .3.661597 Medici n .8 e 2019-11-15 2019-11-15 Orders Tom Mann 1.2.840.7 [id number] 7 [id number] [facility] 00:00:00 00:00:00 Only K 83094.1.1 Danny ege 3.210.2.7 of .3.355394 Medici n .8 e 2019-11-14 2019-11-14 Office Jordan, 1.2.840.2 [id number] 575 [facility] 12:52:40 17:12:58 Visit Lauriececilia Mayorga 64347.1.1 C ollege 3.210.2.7 of .3.672559 Medici n .8 e 2019-11-14 2019-11-14 Office Turner, 1.2.840.3 [id number] 78477 262 [facility] 10:37:21 12:39:23 Visit Manasa 27644.1.1 Danny ege 3.210.2.7 of .3.925317 Medici n .8 e 2019-11-11 2019-11-11 Refill Jordan, 1.2.840.8 [id number] 678 [facility] 00:00:00 00:00:00 Laurie Ali 24170.1.1 C ollege 3.210.2.7 of .3.002983 Medici n .8 e 2019-11-10 2019-11-10 Telephone Jordan, 1.2.840.2 [id number] 738 36207 [facility] 00:00:00 00:00:00 Laurie Ali 54410.1.1 C ollege 3.210.2.7 of .3.737865 Medici n .8 e 2019-11-06 2019-11-06 Departed 1 KATERYNA [facility] Maryvales [id number] 17:13:00 20:25:00 Emergency TRAY Patients 51 Jason [facility] 2019-11-06 2019-11-06 Emergency [facility] [id number] 18:13:00 18:13:00 -[id number] [facility] 2019-11-06 2019-11-06 Telephone , 1.2.840.6 [id number] 737 [id number] [facility] 00:00:00 00:00:00 Laurie Ali 29774.1.1 C ollege 3.210.2.7 of .3.997241 Medici n .8 e 2019-11-03 2019-11-03 Telephone , 1.2.840.0 [id number] 737 [id number] [facility] 00:00:00 00:00:00 Laurie Ali 93725.1.1 C ollege 3.210.2.7 of .3.256281 Medici n .8 e 2019-11-01 2019-11-01 Outpatient [facility] MED [id number] 07:45:00 07:45:00 [facility] 2019-10-23 2019-10-23 Telephone Jordan, 1.2.840.8 [id number] 735 [id number] [facility] 00:00:00 00:00:00 Laurie Ali 70406.1.1 C ollege 3.210.2.7 of .3.560174 Medici n .8 e 2019-10-19 2019-10-19 Refill Samina 1.2.840.7 [id number] 7 [id number] [facility] 00:00:00 00:00:00 uCyndi 08381.1.1 C ollege Tse 3.210.2.7 of .3.307216 Medici n .8 e 2019-10-17 2019-10-17 Office Mya, 1.2.840.2 [id number] 709 [facility] 13:47:55 16:02:09 Visit Marilyn 63655.1.1 Co llege 3.210.2.7 of .3.017360 Medici n .8 e 2019-10-12 2019-10-12 Telephone Jordan, 1.2.840.9 [id number] 733 [id number] [facility] 00:00:00 00:00:00 Laurie Ali 41044.1.1 C ollege 3.210.2.7 of .3.982057 Medici n .8 e 2019-09-27 2019-09-27 Telephone Bhairavaras 1.2.840.3 [id number] [facility] 00:00:00 00:00:00 u, Cyndi 92686.1.1 C marquez Tse 3.210.2.7 of .3.316225 Medici n .8 e 2019-09-26 2019-09-26 Telephone Bhairavaras 1.2.840.7 [id number] [facility] 00:00:00 00:00:00 u, Cyndi 12208.1.1 C marquez Tse 3.210.2.7 of .3.480679 Medici n .8 e 2019-09-20 2019-09-20 Clinical Uriel, 1.2.840.8 [id number] 72 [id number] [facility] 09:55:54 13:50:30 Support Jose 65447.1.1 Col yonny Spencer 3.210.2.7 of .3.416100 Medici n .8 e 2019-09-19 2019-09-19 Telephone Bhairavaras 1.2.840.8 [id number] [facility] 00:00:00 00:00:00 u, Cyndi 67881.1.1 C marquez Tse 3.210.2.7 of .3.347572 Medici n .8 e 2019-09-15 2019-09-18 Office Shaniqua, 1.2.840.8 [id number] 161 [facility] 09:03:36 15:51:54 Visit Manasa 90657.1.1 Danny ege 3.210.2.7 of .3.233111 Medici n .8 e 2019-09-18 2019-09-18 Telephone Bhairavaras 1.2.840.8 [id number] [facility] 00:00:00 00:00:00 u, Cyndi 89524.1.1 C marquez Tse 3.210.2.7 of .3.841033 Medici n .8 e 2019-09-12 2019-09-12 Office Lina, 1.2.840.5 [id number] 7 [id number] [facility] 09:42:28 10:45:58 Visit Milton 47833.1.1 Danny dora Pantoja 3.210.2.7 of .3.968489 Medici n .8 e 2019-09-12 2019-09-12 Telephone Roseairavaandrea 1.2.840.2 [id number] [facility] 00:00:00 00:00:00 Cyndi carias 83765.1.1 Adelina Tse 3.210.2.7 of .3.559483 Medici n .8 e 2019-09-11 2019-09-11 Departed 1 ADÁN [facility] A00 [id number] [facility] 17:07:00 17:55:00 Emergency Patients 29 [facility] 2019-09-05 2019-09-05 Telephone [facility], 1.2.840.0 [id number] [facility] 00:00:00 00:00:00 Prelude 77071.1.1 Danny dora 3210.2.7 of .3.000529 Medici n .8 e 2019-09-01 2019-09-01 Telephone Samina 1.2.840.4 [id number] [facility] 00:00:00 00:00:00 Cyndi carias 13586.1.1 Adelina Tse 3.210.2.7 of .3.787463 Medici n .8 e 2019-08-30 2019-08-30 Office Samina 1.2.840.9 [id number] 7 [id number] [facility] 09:49:04 11:48:53 Visit Cyndi carias 48081.1.1 Adelina Tse 3.210.2.7 of .3.163158 Medici n .8 e 2019-08-30 2019-08-30 Abstract Kehinde, 1.2.840.1 [id number] 7 [id number] [facility] 00:00:00 00:00:00 Malorie 22760.1.1 Danny dora Pichardo 3.210.2.7 of .3.332442 Medici n .8 e 2019-08-30 2019-08-30 Abstract Pallister, 1.2.840.8 [id number] 7 [id number] [facility] 00:00:00 00:00:00 Malorie 23370.1.1 Danny dora Pichardo 3.210.2.7 of .3.644303 Medici n .8 e 2019-08-30 2019-08-30 Telephone , 1.2.840.8 [id number] 726 73328 [facility] 00:00:00 00:00:00 Laurie Ali 12812.1.1 C marquez 3.210.2.7 of .3.479406 Medici n .8 e 2019-08-25 2019-08-25 Orders Bhairavaras 1.2.840.7 [id number] 7 [id number] [facility] 00:00:00 00:00:00 Only u, Cyndi 97551.1.1 C marquez Tse 3.210.2.7 of .3.816759 Medici n .8 e 2019-08-24 2019-08-24 Telephone Bhairavaras 1.2.840.4 [id number] [facility] 00:00:00 00:00:00 u, Cyndi 35740.1.1 C marquez Tse 3.210.2.7 of .3.518896 Medici n .8 e 2019-08-17 2019-08-17 Office Pallister, 1.2.840.4 [id number] 72 [id number] [facility] 09:33:52 13:27:19 Visit Malorie 44841.1.1 Danny dora Pichardo 3.210.2.7 of .3.138529 Medici n .8 e 2019-08-17 2019-08-17 Ancillary 1.2.840.2 [id number] 723 [id number] [facility] 09:33:34 13:26:06 Procedure 14678.1.1 Co les 3.210.2.7 of .3.309080 Medici n .8 e 2019-08-17 2019-08-17 Abstract Pallister, 1.2.840.5 [id number] 7 [id number] [facility] 00:00:00 00:00:00 Malorie 07560.1.1 Danny dora Pichardo 3.210.2.7 of .3.898469 Medici n .8 e 2019-08-17 2019-08-17 Abstract Pallister, 1.2.840.7 [id number] 7 [id number] [facility] 00:00:00 00:00:00 Malorie 67548.1.1 Danny dora Pichardo 3.210.2.7 of .3.984849 Medici n .8 e 2019-08-17 2019-08-17 Abstract Pallister, 1.2.840.9 [id number] 7 [id number] [facility] 00:00:00 00:00:00 Malorie 87347.1.1 Danny dora Pichardo 3.210.2.7 of .3.907306 Medici n .8 e 2019-08-16 2019-08-16 Orders Kehinde, 1.2.840.0 [id number] 72 [id number] [facility] 00:00:00 00:00:00 Only Malorie 87081.1.1 Danny dora Pichardo 3.210.2.7 of .3.216595 Medici n .8 e 2019-08-14 2019-08-14 Office Dusty Stone 1.2.840.2 [id number] 70 [id number] [facility] 14:05:04 15:58:54 Visit 59405.1.1 Danny john 3.210.2.7 of .3.333593 Medici n .8 e 2019-08-12 2019-08-12 Reftyra Haas 1.2.840.0 [id number] 7 [id number] [facility] 00:00:00 00:00:00 Cyndi carias 09596.1.1 Adelina Tse 3.210.2.7 of .3.639054 Medici n .8 e 2019-08-10 2019-08-10 Telephone Kehinde, 1.2.840.1 [id number] [facility] 00:00:00 00:00:00 Malorie 58310.1.1 Danny Pichardo 3.210.2.7 of .3.895454 Medici n .8 e 2019-07-11 2019-07-11 Telephone , 1.2.840.3 [id number] 718 63425 [facility] 00:00:00 00:00:00 Laurie Ali 77178.1.1 C ollege 3.210.2.7 of .3.064291 Medici n .8 e 2019-07-11 2019-07-11 [facility] , 1.2.840.8 [id number] 91231 769 [facility] 00:00:00 00:00:00 Only Laurie Ali 73997.1.1 C ollege 3.210.2.7 of .3.076126 Medici n .8 e 2019-07-07 2019-07-07 Reftyra Lynch, 1.2.840.3 [id number] 7179 9976 [facility] 00:00:00 00:00:00 Rosa M 58156.1.1 Col lege 3.210.2.7 of .3.229384 Medici n .8 e 2019-07-06 2019-07-06 Dothan Jordan, 1.2.840.6 [id number] 717 54757 [facility] 00:00:00 00:00:00 Laurie Ali 16298.1.1 C ollege 3.210.2.7 of .3.316596 Medici n .8 e 2019-07-06 2019-07-06 [facility] , 1.2.840.7 [id number] 61189 465 [facility] 00:00:00 00:00:00 Only Laurie Ali 76697.1.1 C ollege 3.210.2.7 of .3.156074 Medici n .8 e 2019-07-03 2019-07-03 [facility] , 1.2.840.5 [id number] 06582 892 [facility] 00:00:00 00:00:00 Only Laurie Ali 50794.1.1 C ollege 3.210.2.7 of .3.621721 Medici n .8 e 2019-06-30 2019-06-30 Stefano Bhairavaras 1.2.840.5 [id number] 7 [id number] [facility] 00:00:00 00:00:00 Only u Cyndi 56441.1.1 C ollege Tse 3.210.2.7 of .3.925268 Medici n .8 e 2019-06-28 2019-06-28 Telephone Dusty Stone 1.2.840.4 [id number] [facility] 00:00:00 00:00:00 79740.1.1 Danny ege 3.210.2.7 of .3.447887 Medici n .8 e 2019-06-22 2019-06-22 Orders Tom Mann 1.2.840.8 [id number] 7 [id number] [facility] 00:00:00 00:00:00 Only K 88461.1.1 Danny ege 3.210.2.7 of .3.135632 Medici n .8 e 2019-06-22 2019-06-22 Telephone Dusty Stone 1.2.840.8 [id number] [facility] 00:00:00 00:00:00 13793.1.1 Danny ege 3.210.2.7 of .3.334558 Medici n .8 e 2019-06-20 2019-06-20 Office , 1.2.840.0 [id number] 853 [facility] 13:47:25 19:50:25 Visit Laurie Mayorga 48224.1.1 C marquez 3.210.2.7 of .3.119035 Medici n .8 e 2019-06-19 2019-06-19 Orders Lanie, 1.2.840.0 [id number] 714 10172 [facility] 00:00:00 00:00:00 Only Historical 98499.1.1 C ollege 3.210.2.7 of .3.050193 Medici n .8 e 2019-06-19 2019-06-19 Telephone Rahel 1.2.840.9 [id number] 71 [id number] [facility] 00:00:00 00:00:00 Suneal K 03425.1.1 Col lege 3.210.2.7 of .3.691129 Medici n .8 e 2019-06-13 2019-06-13 Orders Elana, 1.2.840.[id number] [place] [address] 00:00:00 00:00:00 Only Parxann 05772.1.1 Danny ege [place] 3.210.2.7 of .3.719179 Medici n .8 e 2019-06-08 2019-06-08 Refill Syed, 1.2.840.4 [id number] 7130 4679 [facility] 00:00:00 00:00:00 Rosa M 28767.1.1 Col lege 3.210.2.7 of .3.468321 Medici n .8 e 2019-06-06 2019-06-06 Telephone Bhmatilde 1.2.840.5 [id number] [facility] 00:00:00 00:00:00 u, Cyndi 41151.1.1 C marquez Tse 3.210.2.7 of .3.985130 Medici n .8 e 2019-06-06 2019-06-06 Telephone Janny Guerra 1.2.840.8 [id number] [facility] 00:00:00 00:00:00 78799.1.1 Danny ege 3.210.2.7 of .3.901282 Medici n .8 e 2019-05-26 2019-05-26 Orders Mcginnis, 1.2.840.8 [id number] 7118 7922 [facility] 00:00:00 00:00:00 Only Suneal K 18595.1.1 Col lege 3.210.2.7 of .3.674553 Medici n .8 e 2019-05-24 2019-05-24 Orders Dhuka, 1.2.840.8 [id number] 547 [facility] 00:00:00 00:00:00 Only Maherin 04010.1.1 Danny ege 3.210.2.7 of .3.025767 Medici n .8 e 2019-05-05 2019-05-05 Orders Bhairavaras 1.2.840.1 [id number] 7 [id number] [facility] 00:00:00 00:00:00 Only u, Cyndi 77040.1.1 C marquez Tse 3.210.2.7 of .3.982637 Medici n .8 e 2019-05-02 2019-05-02 Orders Evelin, 1.2.840.5 [id number] [facility] 00:00:00 00:00:00 Only Kristyn 79272.1.1 Danny dora El 3.210.2.7 of .3.480614 Medici n .8 e 2019-04-25 2019-04-25 Office Dusty Stone 1.2.840.7 [id number] [facility] 12:24:59 14:11:24 Visit 71649.1.1 Danny ege 3.210.2.7 of .3.968297 Medici n .8 e 2019-04-09 2019-04-10 [id number] [facility] 23:57:00 02:08:00 Emergency NASRIN 88 [facility] Patient [facility] 2019-03-15 2019-03-15 Departed [facility] [id number] [facility] 14:32:00 19:04:00 Emergency 01 [facility] Patient [facility] 2018-09-27 2018-09-27 [facility] [id number] [facility] 19:25:00 23:02:00 Emergency LILA 03 [facility] Patient [facility] 2018-07-14 2018-07-14 [facility] [id number] [facility] 13:09:00 19:04:00 Emergency AMBICA 79 [facility] Patient [facility] 2018-05-05 2018-05-05 Registered [facility] [id number] [facility] [address] 05:03:00 05:03:00 Surgical 83 [facility] Patient [facility] 2018-03-27 2018-03-27 [facility] [id number] [facility] 18:28:00 22:32:00 Emergency DEWAYNE 23 [facility] Patient [facility] Results Test Description Test Time Test Comments Results Result Sourc e Comments U/S, ABDOMINAL, 2022-01-13 DR MANN COMPLETE 16:24:00 Referring: Mily Keyes, CECY Mallory for [facility] - MEDICAL Exam:->cirrhosi CENTERName: manav GARNETT, screening MARLYS PRATT for cancer : 1965 Sex: F FI NAL REPORT Abdominal ultrasound dated 01/13/2022 Clinical information:cirrhosis , screening for cancer Comment: Real-time transabdominal ultrasound was performed. Liver is enlarged and measures 18.6 cm in length. The echogenicity of the liver is normal. No focal lesion is noted in the liver. Spleen is enlarged measuring 14.8 x 5.4 x 6.6 cm. Gallbladder is surgically absent. No biliary dilatation is seen. Common bile duct measures 5 mm in diameter. Main portal vein measures 14 mm in diameter. Pancreas is visualized and unremarkable. Right kidney measures 12.6 x 6.3 x 7.5 cm. Left kidney measures 12.6 x 5.0 x 5.7 cm. Echogenicity of both kidney is normal. No hydronephrosis or solid mass seen in either kidney. No cyst is seen in the either kidney. No ascites is present in the abdomen. Abdominal aorta is normal in caliber. IVC and Hepatic veins are patent. Impression: 1. Hepatomegaly.2. Status post cholecystectomy without biliary dilatation.3. Splenomegaly. Signed: Acosta Wu MDReport Verified Date/Time: 01/13/2022 16:24:06 WITH DIFF 2021-08-20 23:29:41 Test Item Value Reference Range Interpretation Comme nts WBC (test code = 6690-2) See_Comment [A utomated message] The system which ge nerated this result transmit christopher reference range: 4.30 - 1 1.10 10*3/?L. The reference r charlotte was not used to interpr et this result as normal/abnor mal. RBC (test code = 789-8) See_Comment H [Au tomated message] The system which [employer] nerated this result transmit chrisotpher reference range: 3.93 - 5 .25 10*6/?L. The reference r charlotte was not used to interpr et this result as normal/abnor mal. HGB (test code = 718-7) 14.3 g/dL 11.6-15.0 HCT (test code = 4544-3) 44.1 % 35.7-45.2 MCV (test code = 787-2) 83.8 fL 80.6-95.5 MCH (test code = 785-6) 27.2 pg 25.9-32.8 MCHC (test code = 786-4) 32.4 g/dL 31.6-35.1 RDW-SD (test code = 34776-6) 43.7 fL 39.0-49.9 RDW-CV (test code = 788-0) 14.3 % 12.0-15.5 PLT (test code = 777-3) See_Comment L [Au tomated message] The system which [employer] nerated this result transmit christopher reference range: 166 - 35 8 10*3/?L. The reference range was not used to interpret th is result as normal/abnormal . MPV (test code = 20049-8) 11.5 fL 9.5-12.9 NRBC/100 WBC (test code = See_Comment [ Automated message] The [id number]) system which [employer] nerated this result transmit christopher reference range: 0.0 - 10 .0 /100 WBCs. The reference r charlotte was not used to interpr et this result as normal/abnor mal. NRBC x10^3 (test code = <0.01 See_Comment [Au tomated message] The [id number]) system which [employer] nerated this result transmit christopher reference range: 10*3/?L. The reference range was not u sed to interpret this result as normal/abnormal . GRAN MAT (NEUT) % (test code 70.6 % = 770-8) IMM GRAN % (test code = 0.50 % [id number]) LYMPH % (test code = 736-9) 20.3 % MONO % (test code = 5905-5) 6.3 % EOS % (test code = 713-8) 1.8 % BASO % (test code = 706-2) 0.5 % GRAN MAT x10^3(ANC) (test 6.06 10*3/uL 1.88-7.09 code = 8851021800) IMM GRAN x10^3 (test code = 0.04 10*3/uL 0.00-0.06 1536213481) LYMPH x10^3 (test code = 1.74 10*3/uL 1.32-3.29 731-0) MONO x10^3 (test code = 0.54 10*3/uL 0.33-0.92 742-7) EOS x10^3 (test code = 0.15 10*3/uL 0.03-0.39 711-2) BASO x10^3 (test code = 0.04 10*3/uL 0.01-0.07 704-7) Lab Interpretation (test Abnormal code = 74490-6) [facility], [id number] 17:24:00DR JAY Referring: DOROTA Alvares-CCirrhosis, assess for HCCCirrhosis, assess for HCCReason for Exam:->Cirrhosis, assess for HCC [facility] : 1965 Sex: FFINAL REPORT TECHNIQUE: Grayscale ultrasound of the abdomen. INDICA TION: Cirrhosis, assess for HCC COMPARISON: 02/21/2021. FINDINGS: MIDLINE VASCULATURE: The visualized inferior vena cava is patent. Portal vein is patent and measures 1.2 cm in diameter. The maximum visualized aortic diameter is 2.2 cm. LIVER: Coarse echotexture of liver with nodular contour.. The liver measures 19 cm in length. No focal lesions. BILIARY:Gallbladder: Status post cholecystectomy.. Common bile duct measures 0.3 cm, within normal limits. No intrahepatic biliary ductal dilatation. PANCREAS: Incompletely visualized due to overlying bowel gas. SPLEEN: Splenomegaly. The spleen measures 15.2 cm in length. PERITONEUM: No free fluid. KIDNEYS: The kidneys are normal in size. No hydronephrosis. No sonographically evident solid mass lesion. The right kidney measures 11.7 cm in length. The left kidney measures 12.3 cm in length. IMPRESSION:Cirrhosis with sequela of portal hypertension. No focal liver lesion. Signed: Enedelia Jimenez Verified Date/Time: 07/29/2021 17:24:01 [facility] Metabolic [id number] 10:43:00 Test Item Value Reference Interpretation Comments Range Glucose (test code = 142 mg/dL 65-99 H Fasting ) reference inter zeke For someone wit hout known diabetes, a glucosevalue >1 25 mg/dL indicates that they may havedi abetes and this should be confirmed with afollow-up test . BUN (test code = 14 mg/dL 7-25 20110211) Creatinine (test 0.75 mg/dL 0.50-1.05 For patient s >49 code = 0067194) years of age , the reference limit for Creatinine is approximately 1 3% higher for peopleidentifie d as -Ayse n. eGFR If NonAfricn Am 88 See_Comment [Autom ated message] (test code = The system [employer] 5359409) generated this result transmitted ref erence range: > OR = 6 0 mL/min/1.73m2. The reference range was not used to int erpret this result as normal/abnormal . eGFR If Africn Am 103 See_Comment [Automate d message] (test code = The system [employer] 8973535) generated this result transmitted ref erence range: > OR = 6 0 mL/min/1.73m2. The reference range was not used to int erpret this result as normal/abnormal . BUN/Creatinine Ratio NOT APPLICABLE See_Comment [Aut omated message] (test code = The system [facility] h ) generated this result transmitted ref erence range: 6 - 22 ( calc). The reference r charlotte was not used to interpret this result as normal/abnor mal. Sodium (test code = 137 mmol/L 135-962 8302582) Potassium, Serum 4.6 mmol/L 3.5-5.3 (test code = 20110226) Chloride (test code 98 mmol/L 98-110 = 1886953) Carbon Dioxide, 33 mmol/L 20-32 H Total (test code = ) Calcium, Serum (test 9.9 mg/dL 8.6-10.4 code = 20110208) JENNIFER (test code = FASTING:YES JENNIFER) FASTING: YES Lab Interpretation Abnormal (test code = 76194-7) [facility] [id number] 10:43:00 Test Item Value Reference Range Interpretation Comments Protein, Total, Serum 8.3 g/dL 6.1-8.1 H (test code = 20110215) Albumin (test code = 4.4 g/dL 3.6-5.1 ) GLOBULIN (QUEST) 3.9 See_Comment H [Automated (test code = 9014930) messag e] The system which generated this result transmit christopher reference range : 1.9 - 3.7 g/dL (calc). The reference range was not used to interpret this result as normal/abnormal . Albumin Globulin 1.1 See_Comment [Automated Ratio (test code = message] The 1759-0) system which generated this result transmit christopher reference range : 1.0 - 2.5 (calc ). The reference range was not u sed to interpret th is result as normal/abnormal . Bilirubin, Total 1.3 mg/dL 0.2-1.2 H (test code = 20110217) Bilirubin, Direct 0.3 mg/dL See_Comment H [Automate d (test code = 5593923) messag e] The system which generated this result transmit christopher reference range : < OR = 0.2. The reference range was not used to interpret this result as normal/abnormal . Bilirubin, Indirect 1.0 See_Comment [Automa christopher (test code = 0618426) messag e] The system which generated this result transmit christopher reference range : 0.2 - 1.2 mg/dL (calc). The reference range was not used to interpret this result as normal/abnormal . Alkaline Phosphatase, 114 U/L 37-153 S (test code = 6768-6) AST (SGOT) (test code 25 U/L 10-35 = 20110221) ALT (SGPT) (test code 19 U/L 6-29 = ) JENNIFER (test code = JENNIFER) FASTING:YES FASTING: YES Lab Interpretation Abnormal (test code = 52635-8) [facility] with platelet count + automated [id number] 10:43:00 Test Item Value Reference Range Interpretation Comments WBC (test code = 9.2 See_Comment [Automated ) message] The system which generated this result transmit christopher reference range : 3.8 - 10.8 Thousand/uL. Th e reference range was not used to interpret this result as normal/abnormal . RBC (test code = 5.26 See_Comment H [Automated 789-8) message] The system which generated this result transmit christopher reference range : 3.80 - 5.10 Million/uL. The reference range was not used to interpret this result as normal/abnormal . Hemoglobin (test code 14.5 g/dL 11.7-15.5 = ) Hematocrit (test code 43.2 % 35.0-45.0 = ) MCV (test code = 82.1 fL 80.0-100.0 ) MCH (test code = 27.6 pg 27.0-33.0 ) MCHC (test code = 33.6 g/dL 32.0-36.0 ) RDW (test code = 13.8 % 11.0-15.0 ) Platelets (test code 143 See_Comment [Autom ated = ) message] The system which generated this result transmit christopher reference range : 140 - 400 Thousand/uL. Th e reference range was not used to interpret this result as normal/abnormal . MPV (test code = 12.3 fL 7.5-12.5 ) # Neutros (test code 6753 See_Comment [Autom ated = 20200505) message] The system which generated this result transmit christopher reference range : 1,500 - 7,800 cells/uL. The reference range was not used to interpret this result as normal/abnormal . # Lymphs (test code = 1684 See_Comment [Auto mated 731-0) message] The system which generated this result transmit christopher reference range : 850 - 3,900 cells/uL. The reference range was not used to interpret this result as normal/abnormal . # Monos (test code = 488 See_Comment [Autom ated ) message] The system which generated this result transmit christopher reference range : 200 - 950 cells/uL. The reference range was not used to interpret this result as normal/abnormal . # Eos (test code = 202 See_Comment [Automat ed 1-2) message] The system which generated this result transmit christopher reference range : 15 - 500 cells/ uL. The reference range was not u sed to interpret th is result as normal/abnormal . # Baso (test code = 74 See_Comment [Automa christopher 4-7) message] The system which generated this result transmit christopher reference range : 0 - 200 cells/uL. The reference range was not u sed to interpret th is result as normal/abnormal . % Neutros (test code 73.4 % = ) % Lymphs (test code = 18.3 % 20200502) % Monos (test code = 5.3 % ) % Eos (test code = 2.2 % 20200430) % Baso (test code = 0.8 % 20200501) JENNIFER (test code = JENNIFER) FASTING:YES FASTING: YES Lab Interpretation Abnormal (test code = 09850-6) [facility]/[id number] 10:43:00 Test Item Value Reference Range Interpretation Comments INR (test code = 1.1 Reference R charlotte ) 0.9-1.1Moderate -intens ity Warfarin Th erapy 2.0-3.0Higher-i ntensit y Warfarin Ther apy 3.0-4.0 PT (test code = 11.2 See_Comment For addition al ) information, pl ease refer tohttp://educat ion.[facility] stdiagnostics.c om/faq/ USN237(This chika k is being provided for informational/e ducatio nal purposes on ly.) [Automated mess age] The system [employer] generated this result transmitted ref erence range: 9.0 - 11 .5 sec. The reference r charlotte was not used to interpret this result as normal/abnor mal. JENNIFER (test code = FASTING:YES JENNIFER) FASTING: YES [facility] fetoprotein (AFP), tumor [id number] 10:43:00 Test Item Value Reference Range Interpretation Comments Alpha-Fetopr 5.1 ng/mL Reference Range : <6.1The use otein (test of AFP as a earl or marker in code = females is not 1834-1) recommended. T his test was performed using the Valencellchemilum inescent method. Values obtained fromdifferent a ssay methods cannot be usedi nterchangeably. AFP levels, reg ardless ofvalue, should not be interpreted as absoluteevidenc e of the presence or abs ence of disease. JENNIFER (test FASTING:YES code = JENNIFER) FASTING: YES [facility] Met[facility] [id number] 10:43:00 Test Item Value Reference Interpretation Comments Range Glucose (test code = 142 mg/dL 65-99 H Fasting ) reference inter zeke For someone wit hout known diabetes, a glucosevalue >1 25 mg/dL indicates that they may havedi abetes and this should be confirmed with afollow-up test . BUN (test code = 14 mg/dL 20110211) Creatinine (test 0.75 mg/dL 0.50-1.05 For patient s >49 code = 20131204) years of age , the reference limit for Creatinine is approximately 1 3% higher for peopleidentifie d as -Ayse n. eGFR If NonAfricn Am 88 See_Comment [Autom ated message] (test code = The system [employer] ) generated this result transmitted ref erence range: > OR = 6 0 mL/min/1.73m2. The reference range was not used to int erpret this result as normal/abnormal . eGFR If Africn Am 103 See_Comment [Automate d message] (test code = The system [employer] ) generated this result transmitted ref erence range: > OR = 6 0 mL/min/1.73m2. The reference range was not used to int erpret this result as normal/abnormal . BUN/Creatinine Ratio NOT APPLICABLE See_Comment [Aut omated message] (test code = The system [facility] ) generated this result transmitted ref erence range: 6 - 22 ( calc). The reference r charlotte was not used to interpret this result as normal/abnor mal. Sodium (test code = 137 mmol/L 135-910 4613304) Potassium, Serum 4.6 mmol/L 3.5-5.3 (test code = 20110226) Chloride (test code 98 mmol/L 98-110 = 7880020) Carbon Dioxide, 33 mmol/L 20-32 H Total (test code = ) Calcium, Serum (test 9.9 mg/dL 8.6-10.4 code = 4610677) JENNIFER (test code = FASTING:YES JENNIFER) FASTING: YES Lab Interpretation Abnormal (test code = 07518-7) [facility] [id number] 10:43:00 Test Item Value Reference Range Interpretation Comments Protein, Total, Serum 8.3 g/dL 6.1-8.1 H (test code = 20110215) Albumin (test code = 4.4 g/dL 3.6-5.1 ) GLOBULIN (QUEST) 3.9 See_Comment H [Automated (test code = 5107363) messag e] The system which generated this result transmit christopher reference range : 1.9 - 3.7 g/dL (calc). The reference range was not used to interpret this result as normal/abnormal . Albumin Globulin 1.1 See_Comment [Automated Ratio (test code = message] The 1759-0) system which generated this result transmit christopher reference range : 1.0 - 2.5 (calc ). The reference range was not u sed to interpret th is result as normal/abnormal . Bilirubin, Total 1.3 mg/dL 0.2-1.2 H (test code = 4172982) Bilirubin, Direct 0.3 mg/dL See_Comment H [Automate d (test code = 0721643) messag e] The system which generated this result transmit christopher reference range : < OR = 0.2. The reference range was not used to interpret this result as normal/abnormal . Bilirubin, Indirect 1.0 See_Comment [Automa christopher (test code = 2141315) messag e] The system which generated this result transmit christopher reference range : 0.2 - 1.2 mg/dL (calc). The reference range was not used to interpret this result as normal/abnormal . Alkaline Phosphatase, 114 U/L 37-153 S (test code = 6768-6) AST (SGOT) (test code 25 U/L 10-35 = 20110221) ALT (SGPT) (test code 19 U/L 6-29 = ) JENNIFER (test code = JENNIFER) FASTING:YES FASTING: YES Lab Interpretation Abnormal (test code = 30594-3) [facility] with platelet count + automated [id number] 10:43:00 Test Item Value Reference Range Interpretation Comments WBC (test code = 9.2 See_Comment [Automated ) message] The system which generated this result transmit christopher reference range : 3.8 - 10.8 Thousand/uL. Th e reference range was not used to interpret this result as normal/abnormal . RBC (test code = 5.26 See_Comment H [Automated 279-8) message] The system which generated this result transmit christopher reference range : 3.80 - 5.10 Million/uL. The reference range was not used to interpret this result as normal/abnormal . Hemoglobin (test code 14.5 g/dL 11.7-15.5 = ) Hematocrit (test code 43.2 % 35.0-45.0 = ) MCV (test code = 82.1 fL 80.0-100.0 ) MCH (test code = 27.6 pg 27.0-33.0 ) MCHC (test code = 33.6 g/dL 32.0-36.0 ) RDW (test code = 13.8 % 11.0-15.0 ) Platelets (test code 143 See_Comment [Autom ated = ) message] The system which generated this result transmit christopher reference range : 140 - 400 Thousand/uL. Th e reference range was not used to interpret this result as normal/abnormal . MPV (test code = 12.3 fL 7.5-12.5 0678105) # Neutros (test code 6753 See_Comment [Autom ated = 20200505) message] The system which generated this result transmit christopher reference range : 1,500 - 7,800 cells/uL. The reference range was not used to interpret this result as normal/abnormal . # Lymphs (test code = 1684 See_Comment [Auto mated 731-0) message] The system which generated this result transmit christopher reference range : 850 - 3,900 cells/uL. The reference range was not used to interpret this result as normal/abnormal . # Monos (test code = 488 See_Comment [Autom ated ) message] The system which generated this result transmit christopher reference range : 200 - 950 cells/uL. The reference range was not used to interpret this result as normal/abnormal . # Eos (test code = 202 See_Comment [Automat ed 711-2) message] The system which generated this result transmit christopher reference range : 15 - 500 cells/ uL. The reference range was not u sed to interpret th is result as normal/abnormal . # Baso (test code = 74 See_Comment [Automa christopher 4-7) message] The system which generated this result transmit christopher reference range : 0 - 200 cells/uL. The reference range was not u sed to interpret th is result as normal/abnormal . % Neutros (test code 73.4 % = ) % Lymphs (test code = 18.3 % 20200502) % Monos (test code = 5.3 % ) % Eos (test code = 2.2 % 20200430) % Baso (test code = 0.8 % 20200501) JENNIFER (test code = JENNIFER) FASTING:YES FASTING: YES Lab Interpretation Abnormal (test code = 88359-9) [facility]/[id number] 10:43:00 Test Item Value Reference Range Interpretation Comments INR (test code = 1.1 Reference R charlotte ) 0.9-1.1Moderate -intens ity Warfarin Th erapy 2.0-3.0Higher-i ntensit y Warfarin Ther apy 3.0-4.0 PT (test code = 11.2 See_Comment For addition al ) information, pl ease refer tohttp://educat ion.[facility] stdiagnostics.c om/faq/ VAQ679(This chika k is being provided for informational/e ducatio nal purposes on ly.) [Automated mess age] The system [employer] generated this result transmitted ref erence range: 9.0 - 11 .5 sec. The reference r charlotte was not used to interpret this result as normal/abnor mal. JENNIFER (test code = FASTING:YES JENNIFER) FASTING: YES [facility] fet[facility] (AFP), tumor [id number] 10:43:00 Test Item Value Reference Range Interpretation Comments Alpha-Fetopr 5.1 ng/mL Reference Range : <6.1The use otein (test of AFP as a earl or marker in code = females is not 1834-1) recommended. T his test was performed using the Benjamín Coulterchemilum inescent method. Values obtained fromdifferent a ssay methods cannot be usedi nterchangeably. AFP levels, reg ardless ofvalue, should not be interpreted as absoluteevidenc e of the presence or abs ence of disease. JENNIFER (test FASTING:YES code = JENNIFER) FASTING: YES [facility] [id number] 20:32:00 [facility] 1965 Sex: F [place] [address] Patient Name: MARLYS GARNETT MR #: [id number] : 1965 Age/Sex: 56/F Req #: [id number] [facility] Physician: Ordered by: HUGH COELLO MD Report #: [id number] Location: ER Room/Bed: Procedure: [id number] CT/CT CHEST W Exam Date: 05/08/21 Exam Time: 1939 REPORT STATUS: Signed CLINICAL HISTORY: Shortness of breath, status post wrist surgery FINDINGS: Multiple axial images of the chest were performed after the uncomplicated administration of IV contrast, utilizing a pulmonary embolism protocol. Post- processing coronal reformats were created and interpreted. This exam was performed according to our departmental dose-optimization program, which includes automated exposure control, adjustment of the mA and/or kV according to patient size and/or use of the iterative reconstruction technique. Study q uality:Limited by patient body habitus, streak artifact from right arm position and intermittent respiratory motion artifact. Comparison:01/10/2021 Pulmonary arteries: No pulmonary embolism is identified Lung parenchyma: Low lung volumes. Bilateral dependent atelectasis, right greater than left. Pleural effusion: None. Pneumothorax: None. Tracheobronchial tree: No significant findings. Pulmonary vasculature: Central vascular engorgement may be exaggerated by low lung volumes. Cardiac contours and great vessels: Atherosclerotic calcification of the coronary arteries and aorta. Mediastinum: No significant findings. Lymph Nodes: No adenopathy in the mediastinum or philippe. Skeleton: No acute abnormality. Limited images of upper abdomen: Previous cholecystectomy IMPRESSION: Limited examination, as described. No pulmonary embolism is identified. Please note that a small orperipheral pulmonary embolism could be obscured. If there is continued clinical concern for a small or peripheral pulmonary embolism repeat imaging after clinical stabilization to enable sufficient breath-hold during imaging can be considered. Alternatively, a V/Q scan can be obtained, as indicated. Low lung volumes. Right greater than left dependent atelectasis versus pneumonitis. Central pulmonary vascular engorgement may be exaggerated by low lung volumes or reflect mild vascular congestion. Signed by: Alisa Ochoa on 18:32 PM Dictated By: ALISA OCHOA MD 33 Transcribed By: ANNIE on 05/08/212031 COPY TO: HUGH COELLO MDBljudith leukocytes automated count (number/volume)2021-05-08 18:20:00 Test Item Value Reference Range Interpretation Comments White Blood Count (test code = 6690-2) 10.25 4.8-10.8 [facility] count (number/volume)2021-05-08 18:20:00 Test Item Value Reference Range Interpretation Comments Red Blood Count (test code = 789-8) 5.04 3.6-5.1 [facility] measurement (moles/volume) 2021-05-08 18:20:00 Test Item Value Reference Range Interpretation Comments Hemoglobin (test code = 70768-4) 13.8 12.0-16.0 [facility] CenterAutomated blood hematocrit (volume fraction) 2021-05-08 18:20:00 Test Item Value Reference Range Interpretation Comments Hematocrit (test code = 4544-3) 43.0 34.2-44.1 [facility] CenterAutomated erythrocyte mean corpuscular volume 2021-05-08 18:20:00 Test Item Value Reference Range Interpretation Comments Mean Corpuscular Volume (test code = 85.3 81-99 787-2) [facility] CenterAutomated erythrocyte mean corpuscular hemoglobin (mass per erythrocyte)2021-05-08 18:20:00 Test Item Value Reference Range Interpretation Comments Mean Corpuscular Hemoglobin (test code 27.4 28-32 = 785-6) [facility] CenterAutomated erythrocyte mean corpuscular hemoglobin concentration measurement (mass/volume)2021-05-08 18:20:00 Test Item Value Reference Range Interpretation Comments Mean Corpuscular Hemoglobin Concent 32.1 31-35 (test code = 786-4) [facility] CenterRDW [id number]-[id number] 18:20:00 Test Item Value Reference Range Interpretation Comments Red Cell Distribution Width (test code 14.3 11.7-14.4 = 45734-0) [facility] CenterAutomated blood platelet count (count/volume) 2021-05-08 18:20:00 Test Item Value Reference Range Interpretation Comments Platelet Count (test code = 777-3) 111 140-360 [facility] CenterAutomated blood segmented neutrophil count as percentage of total emiwgweqbo5325-56-78 18:20:00 Test Item Value Reference Range Interpretation Comments Neutrophils (%) (Auto) (test code = 88.5 38.7-80.0 75603-6) [facility] CenterAutomated blood lymphocyte count as percentage ot total [id number] 18:20:00 Test Item Value Reference Range Interpretation Comments Lymphocytes (%) (Auto) (test code = 7.8 18.0-39.1 736-9) [facility] CenterAutomated blood monocyte count as percentage of total [id number] 18:20:00 Test Item Value Reference Range Interpretation Comments Monocytes (%) (Auto) (test code = 2.8 4.4-11.3 5905-5) [facility] CenterAutomated blood eosinophil count as percentage of total tzwvsfswey7731-92-84 18:20:00 Test Item Value Reference Range Interpretation Comments Eosinophils (%) (Auto) (test code = 0.0 0.0-6.0 713-8) [facility] CenterAutomated blood basophil count as percentage of total xgruycgvit0101-03-87 18:20:00 Test Item Value Reference Range Interpretation Comments Basophils (%) (Auto) (test code = 0.3 0.0-1.0 706-2) [facility] CenterFluoroscopic procedure less than one hour [id number] 18:20:00 Test Item Value Reference Range Interpretation Comments IM GRANULOCYTES % (test code = IM 0.6 0.0-1.0 GRANULOCYTES %) [facility] CenterAutomated blood neutrophil [id number] 18:20:00 Test Item Value Reference Range Interpretation Comments Neutrophils # (Auto) (test code = 9.1 2.1-6.9 751-8) [facility] CenterBlood lymphocytes count (number/volume) 2021-05-08 18:20:00 Test Item Value Reference Range Interpretation Comments Lymphocytes # (Auto) (test code = 0.8 1.0-3.2 01232-3) [facility] CenterBlood monocytes automated count (number/volume)2021-05-08 18:20:00 Test Item Value Reference Range Interpretation Comments Monocytes # (Auto) (test code = 742-7) 0.3 0.2-0.8 [facility] CenterAutomated blood eosinophil [id number] 18:20:00 Test Item Value Reference Range Interpretation Comments Eosinophils # (Auto) (test code = 0.0 0.0-0.4 711-2) [facility] CenterAutomated blood basophil count (count/volume) 2021-05-08 18:20:00 Test Item Value Reference Range Interpretation Comments Basophils # (Auto) (test code = 704-7) 0.0 0.0-0.1 [facility] CenterFluoroscopic procedure less than one hour qzwlvqow2768-08-87 18:20:00 Test Item Value Reference Range Interpretation Comments Absolute Immature Granulocyte (auto 0.06 0-0.1 (test code = Absolute Immature Granulocyte (auto) [facility] CenterProthrombin time (PT) in platelet poor plasma by coagulation [id number] 18:20:00 Test Item Value Reference Range Interpretation Comments Prothrombin Time (test code = 5902-2) 14.2 11.9-14.5 [facility] CenterINR in Platelet poor plasma by Coagulation [id number] 18:20:00 Test Item Value Reference Range Interpretation Comments Prothromb Time International Ratio 1.04 (test code = 6301-6) [facility] CenterActivated partial thromboplastin time (aPTT) in platelet poor plasma by coagulation [id number] 18:20:00 Test Item Value Reference Range Interpretation Comments Activated Partial Thromboplast Time 26.0 23.8-35.5 (test code = 17691-9) [facility] plasma sodium measurement (moles/volume)2021-05-08 18:20:00 Test Item Value Reference Range Interpretation Comments Sodium Level (test code = 2951-2) 133 136-145 [facility] or plasma potassium measurement (moles/volume)2021-05-08 18:20:00 Test Item Value Reference Range Interpretation Comments Potassium Level (test code = 2823-3) 4.5 3.5-5.1 [facility] or plasma chloride measurement (moles/volume)2021-05-08 18:20:00 Test Item Value Reference Range Interpretation Comments Chloride Level (test code = 2075-0) 102 98-107 [facility]um or plasma carbon dioxide, total measurement (moles/volume)2021-05-08 18:20:00 Test Item Value Reference Range Interpretation Comments Carbon Dioxide Level (test code = 2027-) [facility] or plasma anion [id number] 18:20:00 Test Item Value Reference Range Interpretation Comments Anion Gap (test code = 86234-0) 14.5 8-16 [facility] or plasma urea nitrogen measurement (mass/volume)2021-05-08 18:20:00 Test Item Value Reference Range Interpretation Comments Blood Urea Nitrogen (test code = 14 05-05 3094-0) [facility] or plasma creatinine measurement (mass/volume)2021-05-08 18:20:00 Test Item Value Reference Range Interpretation Comments Creatinine (test code = 2160-0) 0.86 0.57-1.11 [facility] or plasma urea nitrogen/creatinine mass [id number] 18:20:00 Test Item Value Reference Range Interpretation Comments BUN/Creatinine Ratio (test code = 16 04-04 3097-3) [facility] CenterEstimated glomerular filtration rate (GFR) [id number] 18:20:00 Test Item Value Reference Range Interpretation Comments Estimat Glomerular 68 See_Comment [Automat ed message] The Filtration Rate (test system which generated code = 372286621) this resul t transmitted reference range : 60-. The reference r charlotte was not used to int erpret this result as normal/abnormal . [facility] CenterGlucose [id number] 18:20:00 Test Item Value Reference Range Interpretation Comments Glucose Level (test code = SHE6317) 243 74-118 [facility] or plasma calcium measurement (mass/volume)2021-05-08 18:20:00 Test Item Value Reference Range Interpretation Comments Calcium Level (test code = 41227-2) 8.7 8.4-10.2 [facility] or plasma total bilirubin measurement (mass/volume)2021-05-08 18:20:00 Test Item Value Reference Range Interpretation Comments Total Bilirubin (test code = 1975-2) 1.5 0.2-1.2 [facility] CenterFluoroscopic procedure less than one hour [id number] 18:20:00 Test Item Value Reference Range Interpretation Comments Aspartate Amino Transf (AST/SGOT) (test 32 5-34 code = Aspartate Amino Transf (AST/SGOT)) [facility] or plasma alanine aminotransferase measurement (enzymatic activity/volume)2021-05-08 18:20:00 Test Item Value Reference Range Interpretation Comments Alanine Aminotransferase (ALT/SGPT) 27 0-55 (test code = 1742-6) [facility] or plasma protein measurement (mass/volume)2021-05-08 18:20:00 Test Item Value Reference Range Interpretation Comments Total Protein (test code = 2885-2) 7.7 6.5-8.1 [facility] or plasma albumin measurement (mass/volume)2021-05-08 18:20:00 Test Item Value Reference Range Interpretation Comments Albumin (test code = 1751-7) 3.5 3.5-5.0 [facility] CenterPlasma globulin measurement (mass/volume) 2021-05-08 18:20:00 Test Item Value Reference Range Interpretation Comments Globulin (test code = 95846-5) 4.2 2.3-3.5 [facility] or plasma albumin/globulin mass ratio 2021-05-08 18:20:00 Test Item Value Reference Range Interpretation Comments Albumin/Globulin Ratio (test code = 0.8 0.8-2.0 1759-0) [facility] or plasma alkaline phosphatase measurement (enzymatic activity/volume)2021-05-08 18:20:00 Test Item Value Reference Range Interpretation Comments Alkaline Phosphatase (test code = 93 40150 6768-6) [facility] or plasma creatine kinase measurement (enzymatic activity/volume)2021-05-08 18:20:00 Test Item Value Reference Range Interpretation Comments Creatine Kinase (test code = 2157-6) 78 29-168 [facility]lingenerum or plasma creatine kinase MB measurement (mass/volume)2021-05-08 18:20:00 Test Item Value Reference Range Interpretation Comments Creatine Kinase MB (test code = 0.90 0-5.0 42846-5) [facility] CenterTroponin I measurement by highly sensitive enzyme [id number] 18:20:00 Test Item Value Reference Range Interpretation Comments Troponin I (test code = 91456-7) 0.001 0-0.300 [facility]enARS-CoV-2 (COVID-19) RNA [Presence] in Respiratory specimen by ANISH with probe [id number] 18:20:00 Test Item Value Reference Range Interpretation Comments Coronavirus (PCR) (test code = NOT DETECTED NOTDETECTED 90960-3) [facility] CenterPO-Glucose [id number] 11:04:00 Test Item Value Reference Range Interpretation Comments POC-Glucose Meter (test 180 mg/dL 70-110 H : TE STED AT [facility] code = 1538) [facility] [address]: Shipyard Helper/Techni melissa ID = [id number] for Hassan, Frida Lab Interpretation (test Abnormal code = 26887-8) [facility] [id number] 11:04:00 Test Item Value Reference Range Interpretation Comments POC-Glucose Meter (test 180 mg/dL 70-110 H : TE STED AT [facility] code = 1538) [address] [facility] [address]: Shipyard Helper/Techni melissa ID = [id number] for Hassan, Frida Lab Interpretation (test Abnormal code = 44796-7) [facility]-Glucose [id number] 11:04:00 Test Item Value Reference Range Interpretation Comments POC-Glucose Meter (test 180 mg/dL 70-110 H : TE STED AT [facility] code = 1538) [address] [facility] [address]: Shipyard Helper/Techni melissa ID = [id number] for Frida Hassan Lab Interpretation (test Abnormal code = 57313-1) [facility]-Glucose [id number] 11:04:00 Test Item Value Reference Range Interpretation Comments POC-Glucose Meter (test 180 mg/dL 70-110 H : TE STED AT [facility] code = 1538) [address] [facility] [address]: Shipyard Helper/Techni melissa ID = [id number] for Frida Hassan Lab Interpretation (test Abnormal code = 12698-5) [facility]-GLUCOSE [id number] 11:04:00 Test Item Value Reference Range Interpretation Comments POC-GLUCOSE METER 180 mg/dL 70-110 H : TESTED A T [facility] 7200 (BEAKER) (test code [facility] Ribe[facility], = 1538) [place] [address]: Shipyard Helper/Techni melissa ID = [id number] for Frida Estrada ANESTHESIA PERIPHERAL [id number] 10:23:52Archana Rivero MD 05/08/2021 10:25 AMPeripheral Block Patient location during procedure: pre- procedureStart time: 05/08/2021 7:32 AMEnd time: 05/08/2021 7:41 AM Procedure Indication: procedure for pain, at surgeon's request and post-op pain management Preanesthetic ChecklistCompleted:patient identified, pre-op evaluation, timeout performed, IV checked, risks and benefits discussed, monitors and equipment checked, anesthesia consent given, prep site dry prior to draping and maximum s terile barriers were used: cap, mask, sterile gown, sterile gloves, and large sterile sheet StaffingAnesthesiologist: Archana Rivero MDPerformed: personally PrepPrep: chlorhexidineProcedures: sterile gloves, surgical mask, surgical hat, sterile technique and prep and sterile drape sushant lied Peripheral Nerve BlockPatient position: left lateral decubitusPatient monitoring: EKG, HR, BP and XaF8Jszcctxpki: rightBlock type: supraclavicularInjection technique: catheterlandmark technique, ultrasound guided and landmark technique - in plane, prescan was completed prior to procedure and needle tip was visualized throughout the entire procedureultrasound image savedBlock Dose: ropivicaine and catheterInfiltration strength: 0.35 %Dose: 20 mL NeedleNeedle type: over the needle catheter (pajunk ecath)Needle gauge: 18 GNeedle length: 75mm.Needle Localization: anatomical landmarks and US guided Hydrodissection? yesCatheter tunneledDressing: Occlusive dressing applied in sterile fashion and Dermabond applied at the catheter insertion site AssessmentInjection assessment: incremental injection and negative aspiration for heme Pain scale pre-procedure: 5Pain scale post- procedure: 2LOC: Sedated with meaningful contactsupplemental oxygen used.no evidence of intravascular injection and no heart rate changeno paresthesiapatient had no immediate complications and patient tolerated the procedure wellCH[facility] Hawaiian GardensANESTHESIA PERIPHERAL [id number] 10:23:52Archana Rivero MD 05/08/2021 10:25 AMPeripheral Block Patient location during procedure: pre-procedureStart time: 05/08/2021 7:32 AMEnd time: 05/08/2021 7:41 AM Procedure Indication: procedure for pain, at surgeon's request and post-op pain management Preanesthetic ChecklistCompleted: patient identified, pre-op evaluation, timeout performed, IV checked, risks and benefits discussed, monitors and equipment checked, anesthesia consent given, prep site dry prior to draping and maximum sterile barriers were used: cap, mask, sterile gown, sterile gloves, and large sterile sheet Staffing Anesthesiologist: Archana Rivero MDPerformed: personally PrepPrep: chlorhexidineProcedures: sterile gloves, surgical mask, surgical hat, sterile technique and prep and sterile drape applied Peripheral Nerve BlockPatient position: left lateral decubitusPatient monitoring: EKG, HR, BP and IoI6Kvnkhxihri: rightBlock type: supraclavicularInjection technique: catheterlandmark technique, ultrasound guided and landmark technique - in plane, prescan was completed prior to procedure and needle tip was visualized throughout the entire procedureultrasound image savedBlock Dose: ropivicaine and catheterInfiltration strength: 0.35 %Dose: 20 mL NeedleNeedle type: over the needle catheter (pajunk ecath)Needle gauge: 18 GNeedle length: 75mm.Needle Localization: anatomical landmarks and US guided Hydrodissection? yesCatheter tunneledDressing: Occlusive dressing applied in sterile fashion and Dermabond applied at the catheter insertion site AssessmentInjection assessment: incremental injection and negative aspiration for heme Pain scale pre-procedure: 5Pain scale post-procedure: 2LOC: Sedated with meaningful contactsupplemental oxygen used.no evidence of intravascular injection and no heart rate changeno paresthesiapatient had no immediate complications and patient tolerated the procedure wellAd[facility] HelenaFL, FLUORO, NON-SPECIFIC, UP TO 1 HOUR 2021-05-08 10:15:00Referring: Mily Keyes PA-C Reason for exam:->mares [facility] : 1965 Sex: FFluoroscopic unit utilized for a procedure performed in the OR. No interpretation was requested. Refer to the operative report for findings. Refer to PACS for patient radiation dose information.FL fluoro non-specific up to 1 [id number] 10:15:00Interface, External Ris In 05/08/2021 10:16 AM CDTFluoroscopic unit utilized for a procedure performed in the OR. No interpretation was requested. Refer to the operative report for findings. Referto PACS for patient radiation dose information.[facility] HelenaFL fluoro non-specific up to 1 hour 2021-05-08 10:15:00Interface, External Ris In 05/08/2021 10:16 AM CDTFluoroscopic unit utilized for a procedure performed in the OR. No interpretation was requested. Refer to the operative report for findings. Referto PACS for patient radiation dose information.[facility] Alkaline [id number] 07:01:00 Test Item Value Reference Range Interpretation Comments Alkaline Phosphatase (test code = 93 U/L 40-150 6768-6) Lab Interpretation (test code = Normal 83920-1) [facility]enaAST (SGOT)2021-05-08 07:01:00 Test Item Value Reference Range Interpretation Comments AST (test code = 1920-8) 61 U/L 5-34 H Spe cimen markedly hemolyzed Lab Interpretation (test Abnormal code = 66044-9) [facility] HelenaProthrombin time/[id number] 07:01:00 Test Item Value Reference Interpretation Comments Range Protime (test code = 11.2 See_Comment [Autom ated 5712-2) message] The system which generated this result transmitted reference range : 9.8 - 12.0 seconds. The reference range was not used to interpret this result as normal/abnormal . INR (test code = 1.04 See_Comment [Automated 6728-6) message] The system which generated this result [...] patients with mechanical heart valves. Lab Interpretation Normal (test code = 85291-9) [facility] HelenaaPTT2021-07-29 07:01:00 Test Item Value Reference Range Interpretation Comments PTT (test code = 25.0 See_Comment L [Automated message] 82104-8) The system [employer] h generated this result transmitted ref erence range: 25.8 - 3 4.5 seconds. The reference range was not used to int erpret this result as normal/abnormal . Lab Interpretation (test Abnormal code = 27659-6) [facility] HelenaAlkaline [id number] 07:01:00 Test Item Value Reference Range Interpretation Comments Alkaline Phosphatase (test code = 93 U/L 40-150 6768-6) Lab Interpretation (test code = Normal 04690-8) [facility] (SGOT)2021-05-08 07:01:00 Test Item Value Reference Range Interpretation Comments AST (test code = 1920-8) 61 U/L 5-34 H Spe cimen markedly hemolyzed Lab Interpretation (test Abnormal code = 31349-8) [facility] HelenaProthrombin time/[id number] 07:01:00 Test Item Value Reference Interpretation Comments Range Protime (test code = 11.2 See_Comment [Autom ated 5902-2) message] The system which generated this result transmitted reference range : 9.8 - 12.0 seconds. The reference range was not used to interpret this result as normal/abnormal . INR (test code = 1.04 See_Comment [Automated 6571-6) message] The system which generated this result [...] patients with mechanical heart valves. Lab Interpretation Normal (test code = 47746-7) [facility] HelenaaPTT2021-07-29 07:01:00 Test Item Value Reference Range Interpretation Comments PTT (test code = 25.0 See_Comment L [Automated message] 36673-7) The system whic h generated this result transmitted ref erence range: 25.8 - 3 4.5 seconds. The reference range was not used to int erpret this result as normal/abnormal . Lab Interpretation (test Abnormal code = 92034-7) [facility] HelenaAlkaline xkiiosugxdd5734-12-27 07:01:00 Test Item Value Reference Range Interpretation Comments Alkaline Phosphatase (test code = 93 U/L 40-150 6768-6) Lab Interpretation (test code = Normal 71124-9) [facility] (SGOT[facility]2021-05-08 07:01:00 Test Item Value Reference Range Interpretation Comments AST (test code = 1920-8) 61 U/L 5-34 H Spe cimen markedly hemolyzed Lab Interpretation (test Abnormal code = 22121-1) [facility]aaPTT2021-07-29 07:01:00 Test Item Value Reference Range Interpretation Comments PTT (test code = 25.0 See_Comment L [Automated message] 92504-4) The system [employer] generated this result transmitted ref erence range: 25.8 - 3 4.5 seconds. The reference range was not used to int erpret this result as normal/abnormal . Lab Interpretation (test Abnormal code = 24574-6) [facility]enaAlkaline qmhwhqmakfu7147-66-78 07:01:00 Test Item Value Reference Range Interpretation Comments Alkaline Phosphatase (test code = 93 U/L 40-150 6768-6) Lab Interpretation (test code = Normal 28475-0) [facility] ([facility]2021-05-08 07:01:00 Test Item Value Reference Range Interpretation Comments AST (test code = 1920-8) 61 U/L 5-34 H Spe cimen markedly hemolyzed Lab Interpretation (test Abnormal code = 70064-0) [facility]aaPTT2021-07-29 07:01:00 Test Item Value Reference Range Interpretation Comments PTT (test code = 25.0 See_Comment L [Automated message] 29044-9) The system [employer] generated this result transmitted ref erence range: 25.8 - 3 4.5 seconds. The reference range was not used to int erpret this result as normal/abnormal . Lab Interpretation (test Abnormal code = 32143-2) [facility] HelenaPROTHROMBIN TIME/[id number] 07:01:00 Test Item Value Reference Range Interpretation Comments PROTIME (BEAKER) 11.2 seconds 9.8-12.0 (test code = 759) INR (BEAKER) (test 1.04 See_Comment [Automat ed message] code = 370) The system [employer] generated this result transmitted ref erence range: <=5.90. The reference range was not used to int erpret this result as normal/abnormal . RECOMMENDED COUMADIN/WARFARIN INR THERAPY RANGESSTANDARD DOSE: 2.0 - 3.0 Includes: PROPHYLAXIS forvenous thrombosis, systemic embolization; TREATMENT for venous thrombosis and/or pulmonary embolus.HIGH RISK: Target INR is 2.5-3.5 for patients with mechanical heart valves.[id number] 07:01:00 Test Item Value Reference Range Interpretation Comments PARTIAL THROMBOPLASTIN TIME 25.0 seconds 25.8-34.5 L (BEAKER) (test code = 760) AST (SGOT)2021-05-08 07:01:00 Test Item Value Reference Range Interpretation Comments AST (SGOT) (BEAKER) 61 U/L 5-34 H Specimen markedly (test code = 353) hemolyzed ALKALINE [id number] 07:01:00 Test Item Value Reference Range Interpretation Comments ALKALINE PHOSPHATASE (BEAKER) (test 93 U/L 40-150 code = 346) POCT-GLUCOSE [id number] 06:38:00 Test Item Value Reference Range Interpretation Comments POC-GLUCOSE METER 130 mg/dL 70-110 H : TESTED A T [facility] 7200 (PandaBed) (test code [facility], = 1538) [facility] 7703 0: Shipyard Helper/Techni melissa ID = [id number] for CADEJASMIN PHILIP PRESTON SARS-CoV2/RT-PCR (Asymptomatic ONLY)2021-05-07 03:56:00 Test Item Value Reference Range Interpretation Comments SARS-COV2/RT-PCR (test Negative Negative code = 70337-6) JENNIFER (test code = JENNIFER) Negative result for this test determines that SARS-CoV-2 RNA was not present in the specimen above the Limit of Detection (LOD). However, Negative results do not preclude SARS-CoV-2 infection and should not be used as the sole basis for treatment or patient management decisions. Negative results must be combined with clinical observations, patient history, and epidemiological information. A false negative result may occur if a specimen is improperly collected, transported, or handled. A false negative result should be considered if patient's recent exposures or clinical presentation indicate that COVID-19 (SARS-CoV-2) is likely and diagnostic tests for other causes of illness are negative. Re-testing should be considered in cases of suspected false negatives. The limit of detection for this assay is 100 copies/mL. This SARS-CoV-2 test is a real-time RT_PCR test intended for the qualitative detection of nucleic acid from SARS-CoV-2 in a nasopharyngeal swab specimen collected from individuals suspected of COVID-19 by their healthcare provider. This test has not been Food and Drug Administration (FDA) cleared or approved. This is a modified version of an approved Emergency Use Authorization (EUA) and is in the process of review by the FDA. Once authorized by the FDA, the issued EUA will be effective until the declaration that circumstances exist justifying the authorization of the emergency use of in vitro diagnostic tests for detection and/or diagnosis of COVID-19 is terminated under Section 564(b)(2) of the Act or the EUA is revoked under Section 564(g) of the Act. Testing was performed using the [employer] SARS-CoV-2 assay. Fact Sheet for Healthcare Providers:https://www.bruna hook/erum/RT SARS-CoV-2 HCP Fact Sheet 51-234482.pdf Fact Sheet for Healthcare Patients:https://www.matt reynoldstran/erum/RT SARS-CoV-2 Patient Fact Sheet EN 51-835037K4.pdf Lab Interpretation Normal (test code = 61692-2) [facility] (Asymptomatic ONLY)2021-05-07 03:56:00 Test Item Value Reference Range Interpretation Comments SARS-COV2/RT-PCR (test Negative Negative code = 08931-4) JENNIFER (test code = JENNIFER) Negative result for this test determines that SARS-CoV-2 RNA was not present in the specimen above the Limit of Detection (LOD). However, Negative results do not preclude SARS-CoV-2 infection and should not be used as the sole basis for treatment or patient management decisions. Negative results must be combined with clinical observations, patient history, and epidemiological information. A false negative result may occur if a specimen is improperly collected, transported, or handled. A false negative result should be considered if patient's recent exposures or clinical presentation indicate that COVID-19 (SARS-CoV-2) is likely and diagnostic tests for other causes of illness are negative. Re-testing should be considered in cases of suspected false negatives. The limit of detection for this assay is 100 copies/mL. This SARS-CoV-2 test is a real-time RT_PCR test intended for the qualitative detection of nucleic acid from SARS-CoV-2 in a nasopharyngeal swab specimen collected from individuals suspected of COVID-19 by their healthcare provider. This test has not been Food and Drug Administration (FDA) cleared or approved. This is a modified version of an approved Emergency Use Authorization (EUA) and is in the process of review by the FDA. Once authorized by the FDA, the issued EUA will be effective until the declaration that circumstances exist justifying the authorization of the emergency use of in vitro diagnostic tests for detection and/or diagnosis of COVID-19 is terminated under Section 564(b)(2) of the Act or the EUA is revoked under Section 564(g) of the Act. Testing was performed using the [employer] SARS-CoV-2 assay. Fact Sheet for Healthcare Providers:https://www.bruna hook/erum/RT SARS-CoV-2 HCP Fact Sheet 51-444061.pdf Fact Sheet for Healthcare Patients:https://www.matt reynoldstran/erum/RT SARS-CoV-2 Patient Fact Sheet EN 51-450188C8.pdf Lab Interpretation Normal (test code = 98025-2) [facility]ARS[facility] (Asymptomatic ONLY)2021-05-07 03:56:00 Test Item Value Reference Range Interpretation Comments SARS-COV2/RT-PCR (test Negative Negative code = 23225-9) JENNIFER (test code = JENNIFER) Negative result for this test determines that SARS-CoV-2 RNA was not present in the specimen above the Limit of Detection (LOD). However, Negative results do not preclude SARS-CoV-2 infection and should not be used as the sole basis for treatment or patient management decisions. Negative results must be combined with clinical observations, patient history, and epidemiological information. A false negative result may occur if a specimen is improperly collected, transported, or handled. A false negative result should be considered if patient's recent exposures or clinical presentation indicate that COVID-19 (SARS-CoV-2) is likely and diagnostic tests for other causes of illness are negative. Re-testing should be considered in cases of suspected false negatives. The limit of detection for this assay is 100 copies/mL. This SARS-CoV-2 test is a real-time RT_PCR test intended for the qualitative detection of nucleic acid from SARS-CoV-2 in a nasopharyngeal swab specimen collected from individuals suspected of COVID-19 by their healthcare provider. This test has not been Food and Drug Administration (FDA) cleared or approved. This is a modified version of an approved Emergency Use Authorization (EUA) and is in the process of review by the FDA. Once authorized by the FDA, the issued EUA will be effective until the declaration that circumstances exist justifying the authorization of the emergency use of in vitro diagnostic tests for detection and/or diagnosis of COVID-19 is terminated under Section 564(b)(2) of the Act or the EUA is revoked under Section 564(g) of the Act. Testing was performed using the [employer] SARS-CoV-2 assay. Fact Sheet for Healthcare Providers:https://www.bruna hook/erum/RT SARS-CoV-2 HCP Fact Sheet 51-756407.pdf Fact Sheet for Healthcare Patients:https://www.matt reynoldstran/erum/RT SARS-CoV-2 Patient Fact Sheet EN 51-379258L5.pdf Lab Interpretation Normal (test code = 45707-0) [facility]21-05-07 03:56:00 Test Item Value Reference Range Interpretation Comments SARS-COV2/RT-PCR (test Negative Negative code = 36563-0) JENNIFER (test code = JENNIFER) Negative result for this test determines that SARS-CoV-2 RNA was not present in the specimen above the Limit of Detection (LOD). However, Negative results do not preclude SARS-CoV-2 infection and should not be used as the sole basis for treatment or patient management decisions. Negative results must be combined with clinical observations, patient history, and epidemiological information. A false negative result may occur if a specimen is improperly collected, transported, or handled. A false negative result should be considered if patient's recent exposures or clinical presentation indicate that COVID-19 (SARS-CoV-2) is likely and diagnostic tests for other causes of illness are negative. Re-testing should be considered in cases of suspected false negatives. The limit of detection for this assay is 100 copies/mL. This SARS-CoV-2 test is a real-time RT_PCR test intended for the qualitative detection of nucleic acid from SARS-CoV-2 in a nasopharyngeal swab specimen collected from individuals suspected of COVID-19 by their healthcare provider. This test has not been Food and Drug Administration (FDA) cleared or approved. This is a modified version of an approved Emergency Use Authorization (EUA) and is in the process of review by the FDA. Once authorized by the FDA, the issued EUA will be effective until the declaration that circumstances exist justifying the authorization of the emergency use of in vitro diagnostic tests for detection and/or diagnosis of COVID-19 is terminated under Section 564(b)(2) of the Act or the EUA is revoked under Section 564(g) of the Act. Testing was performed using the [employer] SARS-CoV-2 assay. Fact Sheet for Healthcare Providers:https://www.bruna stevenAtbrox/erum/RT SARS-CoV-2 HCP Fact Sheet 51-740943.pdf Fact Sheet for Healthcare Patients:https://www.matt bessSpiritShop.com/erum/RT SARS-CoV-2 Patient Fact Sheet EN 51-893508T7.pdf Lab Interpretation Normal (test code = 31406-8) [facility])2021-05-07 03:56:00 Test Item Value Reference Range Interpretation Comments SARS-COV2/RT-PCR (test code = Negative Negative 7391286) Negative result for this test determines that SARS-CoV-2 RNA was not present in the specimen above the Limit of Detection (LOD). However, Negative results do not preclude SARS-CoV-2 infection and should not be used as the sole basis for treatment or patient management decisions. Negative results must be combined with clinical observations, patient history, and epidemiological information. A false negative result may occur if a specimen is improperly collected, transported, or handled. A false negative result should be considered if patient's recent exposures or clinical presentation indicate that COVID-19 (SARS-CoV-2) is likely and diagnostic tests for other causes of illness are negative. Re-testing should be considered in cases of suspected false negatives.The limit of detection for this assay is 100 copies/mL.This SARS-CoV-2 test is a real-time RT_PCR test intended for the qualitative detection of nucleic acid from SARS-CoV-2 in a nasopharyngeal swab specimen collected from individuals suspected of COVID-19 by their healthcare provider.This test has not been Food and Drug Administration (FDA) cleared or approved. This is a modified version of an approved Emergency Use Authorization (EUA) and is in the process of review by the FDA. Once authorized by the FDA, the issued EUA will be e ffective until the declaration that circumstances exist justifying the authorization of the emergency use of in vitro diagnostic tests for detection and/or diagnosis of COVID-19 is terminated under Section 564(b)(2) of the Act or the EUA is revoked under Section 564(g) of the Act.Testing was performedusing the Tran SARS-CoV-2 assay.Fact Sheet for Healthcare Providers:https://www.molecular.tran/erum/RT SARS-CoV-2 HCP Fact Sheet 51- 260502.pdfFact Sheet for Healthcare Patients:https://www.AnybodyOutThere.Atbrox/erum/RT SARS-CoV-2 Patient Fact Sheet EN 51-257194J7.[id number] 11:43:03 Test Item Value Reference Range Interpretation Comments FERRITIN (test code = See_Comment H Unless 98785-4) Otherwise Indic ated, All Testing Per formed At: [facility], [address] [place] [address] Laboratory Dire ctor: Nikhil marti M.D. CLIA Num dieter [id number] Cap Accreditation N o. [id number] [Auto mated message] The sy stem which generated this result transmit christopher reference range : 13.0 - 200.0 NG/ML. The reference range was not used to int erpret this result as normal/abnormal . Lab Interpretation Abnormal (test code = 15904-5) [facility] METABOLIC [id number] 08:48:22 Test Item Value Reference Range Interpretation Comments GLUCOSE (test code = See_Comment H [Autom ated message] 2345-7) The system [employer] h generated this result transmitted ref erence range: 70 - 99 MG/DL. The reference r charlotte was not used to interpret this result as normal/abnor mal. BLOOD UREA NITROGEN See_Comment [Automa christopher message] (test code = 3091-6) The sys tem which generated this result transmitted ref erence range: 6 - 20 M G/DL. The reference r charlotte was not used to interpret this result as normal/abnor mal. CREATININE (test code = See_Comment [Au tomated message] 2160-0) The system [employer] generated this result transmitted ref erence range: 0.60 - 1 .30 MG/DL. The refe rence range was not u sed to interpret this result as normal/abnor mal. EGFR AA (test code = See_Comment [Autom ated message] 92683-2) The system [employer] generated this result transmitted ref erence range: >60 ML/MIN/1.73. Th e reference range was not used to int erpret this result as normal/abnormal . EGFR (test code = See_Comment [Automate d message] 51366-7) The system [employer] generated this result transmitted ref erence range: >60 ML/MIN/1.73. Th e reference range was not used to int erpret this result as normal/abnormal . SODIUM (test code = See_Comment [Automa christopher message] 2951-2) The system [employer] generated this result transmitted ref erence range: 133 - 14 6 MEQ/L. The refe rence range was not u sed to interpret this result as normal/abnor mal. POTASSIUM (test code = See_Comment [Aut omated message] 4743-3) The system [employer] generated this result transmitted ref erence range: 3.5 - 5. 4 MEQ/L. The refe rence range was not u sed to interpret this result as normal/abnor mal. CHLORIDE (test code = See_Comment [Auto mated message] 3705-0) The system [employer] generated this result transmitted ref erence range: 95 - 107 MEQ/L. The reference r charlotte was not used to interpret this result as normal/abnor mal. CO2 (test code = See_Comment [Automated message] 1962-8) The system [employer] generated this result transmitted ref erence range: 19 - 31 MEQ/L. The reference r charlotte was not used to interpret this result as normal/abnor mal. CALCIUM (test code = See_Comment Unless 55685-2) Otherwise Indic ated, All Testing Per formed At: [facility], [address] [facility], [place] [address] Laboratory Dire ctor: Umair Hidalgo Num dieter [id number] Cap Accreditation N o. [Auto mated message] The sy stem which generated this result transmit christopher reference range : 8.5 - 10.5 MG/DL. The reference range was not used to int erpret this result as normal/abnormal . Lab Interpretation Abnormal (test code = 69693-3) [facility] [id number] 08:48:22 Test Item Value Reference Range Interpretation Comments PROTEIN TOTAL (test See_Comment [Automa christopher message] The code = 2885-2) system which generated this result tra nsmitted reference range : 6.1 - 8.3 G/DL. The r eference range was not u sed to interpret this result as normal/abnormal . ALBUMIN (test code = See_Comment [Autom ated message] The 55215-0) system which ge nerated this result tra nsmitted reference range : 3.5 - 5.2 G/DL. The r eference range was not u sed to interpret this result as normal/abnormal . BILIRUBIN TOTAL (test See_Comment [Auto mated message] The code = 1974-2) system which generated this result tra nsmitted reference range : <=1.2 MG/DL. The refe rence range was not u sed to interpret this result as normal/abnormal . BILIRUBIN DIRECT (test See_Comment [Aut omated message] The code = 1967-7) system which generated this result tra nsmitted reference range : 0.0 - 0.3 MG/DL. The reference range was not u sed to interpret this result as normal/abnormal . ALKALINE PHOSPHATASE 116 U/L 40-136 (test code = 6768-6) AST (SGOT) (test code 31 U/L 9-40 = 1920-8) ALT (SGPT) (test code 26 U/L 5-40 Unless = 1744-2) Otherwise Indic ated, All Testing Perform ed At: [facility], [address] [place] [address] Research Engineer: Umair Hidalgoe r [id number] Cap Accreditation N o. [facility]/AUTO DIFF WITH [id number] 07:49:27 Test Item Value Reference Range Interpretation Comments WHITE BLOOD CELL COUNT See_Comment [Aut omated message] (test code = 19613-3) The sy stem which generated this result transmitted ref erence range: 3.5 - 11 .0 K/UL. The refer ence range was not u sed to interpret this result as normal/abnor mal. RED BLOOD CELL COUNT See_Comment [Autom ated message] (test code = 66964-2) The sy stem which generated this result transmitted ref erence range: 3.80 - 5 .40 M/UL. The refer ence range was not u sed to interpret this result as normal/abnor mal. HEMOGLOBIN (test code = See_Comment [Au tomated message] 718-7) The system whic h generated this result transmitted ref erence range: 11.5 - 1 5.5 G/DL. The refer ence range was not u sed to interpret this result as normal/abnor mal. HEMATOCRIT (test code = 40.0 % 34.0-45.0 88257-8) MEAN CORPUSCULAR VOLUME 82.0 fL 80.0-99.0 (test code = 95112-3) MEAN CORPUSCULAR 27.5 PG 25.0-33.0 HEMOGLOBIN (test code = 85958-4) MEAN CORPUSCULAR See_Comment [Automated message] HEMOGLOBIN CONC (test The sy stem which code = 76152-4) generated th is result transmitted ref erence range: 31 - 36 G/DL. The reference r charlotte was not used to interpret this result as normal/abnor mal. RED CELL DISTRIBUTION 14.3 % 11.5-15.0 WIDTH (test code = 37875-8) NEUTROPHILS % (test 68.9 % 40.0-75.0 code = 23286-9) LYMPHOCYTES % (test 22.6 % 20.0-45.0 code = 97255-2) MONOCYTES % (test code 5.6 % 4.0-12.0 = 07198-9) EOSINOPHILS % (test 2.1 % 0.0-7.0 code = 04557-9) BASOPHILS % (test code 0.4 % 0.0-2.0 = 01850-7) IMMATURE GRANULOCYTES 0.4 % 0.0-1.0 (test code = 35795-5) NUCLEATED RBC'S See_Comment Unl ess MYELOPEROX STAIN (test Other antonio Indicated, code = 77970-7) All Testing Performed At: [facility], [address] [facility], [facility] [address] Laboratory Dire ctor: Nikhil marti M.D. CLIA Num dieter [id number] Cap Accreditation N o. [id number] [Auto mated message] The sy stem which generated this result transmit christopher reference range : 0.00 - 0.11 K/UL. Th e reference range was not used to int erpret this result as normal/abnormal . PLATELET COUNT (test See_Comment L [Autom ated message] code = 00242-6) The system w hich generated this result transmitted ref erence range: 130 - 40 0 K/UL. The reference r charlotte was not used to interpret this result as normal/abnor mal. NEUTROPHILS ABSOLUTE See_Comment [Autom ated message] COUNT (test code = The syste m which 80139-6) generated this result transmitted ref erence range: 1.50 - 7 .50 K/UL. The refer ence range was not u sed to interpret this result as normal/abnor mal. LYMPHOCYTES ABSOLUTE See_Comment [Autom ated message] COUNT (test code = The syste m which 69331-7) generated this result transmitted ref erence range: 1.00 - 4 .00 K/UL. The refer ence range was not u sed to interpret this result as normal/abnor mal. MONOCYTES ABSOLUTE See_Comment [Automat ed message] COUNT (test code = The syste m which 97151-5) generated this result transmitted ref erence range: 0.20 - 1 .00 K/UL. The refer ence range was not u sed to interpret this result as normal/abnor mal. BASOPHILS ABSOLUTE See_Comment [Automat ed message] COUNT (test code = The syste m which 17227-4) generated this result transmitted ref erence range: 0.00 - 0 .20 K/UL. The refer ence range was not u sed to interpret this result as normal/abnor mal. IMMATURE GRANS (ABS) See_Comment [Autom ated message] (test code = 9987) The syste m which generated this result transmitted ref erence range: 0.00 - 0 .10 K/UL. The refer ence range was not u sed to interpret this result as normal/abnor mal. Lab Interpretation Abnormal (test code = 34702-9) [facility] [id number] 10:44:00 Test Item Value Reference Range Interpretation Comments Case Report (test code Surgical Pathology = 104) Report Case: [id number] Authorizing Provider: Tom Mann MD Collected: 03/27/2021 11:53 AM Ordering Location: [facility] Endoscopy Received: 03/27/2021 02:10 PM Services Pathologist: Giorgi Rose MD Specimen: Appendix, azppendical lypoma biopsy DIAGNOSIS (test code = w9evbBQaWBUuv9ooAXTpxV 3220) FuZzEwMzNcZnRuYmpcdWMx IHtccnRmMVxlcGljOTIwMl znglTnCBIdrTSsZ8Fjliec YPffHX2iIE3cmOsusEPyhJ RcCRBtHoGcf7gwl153yMPs y4boUVPSxpgicKh3fWqeB7 6sc2Q6BzozB31vyFIgTUso bGFpblxmczIwIFBBUlQgQS YHDOSSMvGRQ8LWIMVCQBRF C4SbGZHPJ7LEVVCOI8EzP8 UPLFJZRDAULEkIKT5SSBeh xJBaKOIGRtzZJnYPX4pEWt zAWZ5WE79POYEVKZGDSWCL UEVSRklDSUFMIFNVQkVQSV RIRUxJQUwgTUFUVVJFIEFE ZYMVR9OlMBlFX1NTJnczDB VdSuIBRVTKGhMbSt1JOH8S JEnIIjLVS7cpAZpcKOL7o0 xydGYxXHNzdGUxODAwMFxh bnNpXGRlZmxhbmcxMDMzXG Y2pjReDRIbKIurIEWcOTdf Pp4hxWYgaXqfSrFzVGHdr4 heoxYUjmajvYb5a4ckPKXq QtM8bHZkSYefZ5qbbaGaoW BsKYNsJGl7lX17NCXhjU9e nQChCSsdgzUbQaW2GQqyFR PaNkK2JEFdgXBoQUXeB3nk ZWQwXGdyZWVuMFxibHVlMC A6wGcuz5D5nIJvmOQhcPay XhXfVdHfMsWGg5RbAMi3wI ggV2XkVXDrLrT0pFKtYJNo JIjxOZUzKKTcalY3nF42RT rjciP9oRDwj0Rzi48uk056 wR3sxICsSHZ0APIiCLUacG KeYXGgDCK7BPDegQAjQ4pl IAYzBC8fbajzMByaFDumSZ OsnNO9MTFqrWXqL4YxYTYy PHvgMAZykvl0GoHjYf2mhM YlhFftFHejc9dfy3xhlTSg Yam8WPJfGvDxFarnHNzbj4 Mnt6fiEURocw3pQRJ9kSYv cTqdj2A6tRJfEZVfyUCuTG TvDB9rhUQkIIMofP8slpvo XHBnYnJkcmhlYWRccGdicm XnBm5qsXocZUW7DQjjV6cg uI7wIjY5IVhbR0zyjR5iQV m4YUnzTNWgjKE1ufB8TMWi gOXeI0XvjQ5mKIRkMA6cwp f0h3tbBQV7EUtgQIAvZzJ1 toJ1TUCtyXOyDLFvcVmcME wgx114FFX8QmDsFZJya6Dh H0UitTqrQ00nxVraI67aGJ NghScupN0qqWxllN1bXbLz VhAjIKllqAwiXZ9sQFPlA2 gctGCiAHReZSFqL6meTvWb jB9lvZdxKVbzhsHhCLQkHu p8QZKpcABfLMJfNkp0DPWr FWEvA76oyzkcHMC9xL5qh6 vjy1FsEPgmSIV2BCCbu55p QHzrzgS6GUaeQn3mNKGhSp k9W3rpXIQ9rQ== CPT Code(s) (test code c3svgGSuJORkrHN2FlFqSC = 3357) Lpg0dnq5TsnISarRGbQFyb hGOhvxHybo83uQG3sS61XZ 1kWWEaJuE8RSGsddG6Ipv6 GAJuDBFfdINdN990j5acd8 wxntQrkSE9pLlzXJZkMBTj YWluXGZzMjAgODgzMDVccG FyfQ== CLINICAL HISTORY (test d9oofUBcZWXxaPD5GvHlEV code = 3356) Pwg5kap0GgiIOqyEJsLRie dJQxsyUirr07zET4xN19NX 4yLIKvTrR1PMFmvfN1Kck4 KXIbECAgvFQdP194n2dkt8 smrfOmiFS8yLvbUPKiWBDw UCodJCZxFzTwN0isxsnpj3 vuAS7mYVpwjiDwMLkedAfk XELryIFfivgdn9TkWVRolR 0wYXLszsSpND2qDZMooAXn fQ== SPECIMEN SOURCE (test r1vglDWrYKMcyCW0CoZgLN code = 3377) Gpp8pua9HbxWGafKTyNFmz iTAscrGqpi08rNS4zZ26WN 0jZGHxDqF9YZXdocX3Gvw7 QYWbPEPdqZGcA549t2rbx9 aumgPvtHY1zMqxTOBdNXLr QLlzUMEwGrUvBRSlXP7ocT hccGFyfQ== GROSS DESCRIPTION (test e9quuWRpRCGcyKHwMvSjFR code = 3366) CmADQqs5gwXIJohERnVxGp MzNcZnRuYmpcdWMxXGRlZm Air2ruu308xJImb9zbNXCc VcN2lBQuKRLwoXOzM888d0 hui8rdgtHveBF5YRFaTZW2 OItvynZayhP8VBwwbJXfYd E1TUihqaWaUYtnulAyluOf Yzj7MRUiH248LUR9wGahb4 uwRTD8HDScZRDeJqKfNo5d cVZyX129UHDvINNNRFVmaG k8RLYljoKbtkBpoPOCw451 B971y9lpZBFmqxMmtPlMfa xhi9wwU451SSPnkSMgmcUr CzFmUTZviAWtdEW9ASZsDP 7ldlsiTsKvQD8pbdktTrQd TO4gqky5TvPiRH7jcighKu IrAGdmPOHellybGCKdh4Wm neueEV9mG2Zzb9P5oK5bnM ZhZRFenQKdLfNuKIBtxw1j pLWnULdkc4PrKJU5whK6qY GopKJxPFJwWX64Swxaf8Qb AtspADA2VTNvkfYcf8Zgi6 czRwHzrtVuF2tbD9KtVFVj IWXzCWAsNyUblxGzk9Aqn9 QxuSWiqDn0h4nbXOGnGPIt qElvx1fuSAW1UTOuX1W4uV Kjr3zfWPgcMLRalCJ7qmiv PCfbHVPullC4uodqUQlcIX AszQZ4irehKMydOZQtKjY9 kygnPAngARBaXZP5RStor4 45UJG6OGshMzidJKjnEXRy bmNvbnRccGduZGVjXHBsYW luXHBsYWluXGYwXGZzMjRc nBeriCzjsT3kGjEtVsRnGU gzZF5pKEDrH3bdfYXsNHCa XJTbV8xlZmDmsL9ajExvKS qcxcEfVODoZQMjX7XtefWl PIeeXZKopm6twYqxJPebUt FpBQVdk3l2eMM3fGUlkQM4 dLZzhZhwKfEeAM4zdITdOZ 3aGCvjABuoaqYqi0HzSU28 bWJlciBhbmQgImFwcGVuZG q0BjKytxQlG65mc4msvQGy c4OoKJCuJjJeJ37rhXQdMO OvUuRmbVcdd8ZgOYUmCHud AZ12SNG7Zq1zxIHdHYYgye W3i3RlFOujFWTeNthbORFj mIMmUUZoBBwxCMFsF8DbsP 8cSY5RRearJVNfXDQJT4Yl D98nsTKyyR== MICROSCOPIC DESCRIPTION v1xolGAkBUAlnVN5DeFzQZ (test code = 3371) Hgb1oig0IyoUEbxJNaEBif hBVjtnZdyt54qCV3gC84ZO 5wRNGfBpR3MBVepyJ3Irk4 DUDiDHDflBGsW021x9wrn2 rvneHptNO1jCxzLCLwUQWl GFchFHMcOkNwaQPdMb2cgL VkXHBhcn0= Gross assessment was [facility] performed at ([facility], = 2777) Department of Pathology, [address] [place] [address], Technical component was [facility] performed at ([facility], = 2778) Department of Pathology, [address] [place] [address], Professional component [facility] was performed at ([facility], code = 2779) Department of Pathology, [address] [place], [place] [address], [facility] [id number] 10:44:00 Test Item Value Reference Range Interpretation Comments Case Report (test code Surgical Pathology = 104) Report Case: [id number] Authorizing Provider: Tom Mann MD Collected: 03/27/2021 11:53 AM Ordering Location: [facility] Endoscopy Received: 03/27/2021 02:10 PM Services Pathologist: Giorgi Rose MD Specimen: Appendix, azppendical lypoma biopsy DIAGNOSIS (test code = z2pedZSmOLYeo7khPXLkcM 3220) FuZzEwMzNcZnRuYmpcdWMx IHtccnRmMVxlcGljOTIwMl gpefLtIVNapENuI4Ykqhsb USreHY6jYE2axFsnrILqrW ZqHBTeIwPps9krt015xMSu k4vyWFHSdedqyEd7jUpeU9 1zw9R1HtftV36djNGhMUwu bGFpblxmczIwIFBBUlQgQS VVXFSXLsOHW0PSKPNGXWYI A9ChGJZLT0TVXECDM0QyD9 MXDDJWTYFTOSiGFF1MOMtn cXKpFMIJOgbFFmGIS8cRGd iLTE9GS58DKARLALGHIVSG UEVSRklDSUFMIFNVQkVQSV RIRUxJQUwgTUFUVVJFIEFE GDRHD5LyRJtKE5PGSqptOB IaMdUKOIZHTvLaVe6ZGW3J GRhWSnCBY6bfFUhhWLF6y8 xydGYxXHNzdGUxODAwMFxh bnNpXGRlZmxhbmcxMDMzXG H7dgUmAZPnABbhMDQfCOpd Do0lwYNhzScbYiKjEGSkp9 apedPAgpgxgQo3o3iwSCIy SsB6wWDwWKqkC2xuwlFooE RgZAGlXOp3wT48JANldF5v tHAtCSwzzkWiWnU3GIfiZR PrLeU4DMLapKMxDBZnU5kp ZWQwXGdyZWVuMFxibHVlMC I1zEuct2G7zBJmqTXwwKvg JoKiJdBkUjFDq7YgFEx4zN jfU9CsCNTwLfE8mCOhSGSw TZkwZQWkWMZmcyF1oM58PZ myymP8yVKhf8Whm15nh381 rU8rvUZyRYB5DISgONJdeI JcOJNoEOF3EGFfoPLaG3bo MNAySK4fgjuuRCiiDZruGE NgyTY2TPTutNKnC8FeBDMl CAmpWRAhrxa1JiQeIh3lvL YpjOngFUbob1jqa6zjzHOd Fzv9PMTrZjRfCtzgPAhue9 Vmx9vqACIhgm4iRLR0wAUu bPjca0O8vEQzICLepJZsXC VqQW2hjLGnOZLulN1hwlvm XHBnYnJkcmhlYWRccGdicm MdUm6fbBpdCWD5PUjkY7bm jT1gYoS0AOljD5tfzZ5qNO f6JBncLIUdtLV1anT6YHTa lCHhP8JiqN1vAIDpAZ4kao w8s1tvZVY2USaqTQYlWlK3 qtD3JIGguQHvNHLgnDkoKE pwu935CYC9NrCzAQKum7Zx O0QqfWjsA03cgQqpP97sCP TadUnweI5tzWxmoK0kGyVz DqVdKPvyuTqqGC2sLRVxP4 jvwSMoQSHqHBGjA6eiRiDb bZ9ylAkoXOixcxKhUXHoBx v0AEMfqRJjETQgTjl0WCOo CLEiC81swcvrRQJ6uR4pl5 ybk9CvUEhhYBU1ZKSqp01d YHzpfoL6NAtrYb9uCUKyPy h0W7rqQMR0cK== CPT Code(s) (test code d9ixpFGwAAZjqEN9GePlTF = 3357) Dng2fhs1FqyMScwSBoUVpk hBItrwDzqt63tID1dB98WV 1sOQNiBnW6JEDwwqC7Tag2 OJBwZBFepRIaU947t6uhz4 rerzRmtIE6tIxuTMZmFOAv YWluXGZzMjAgODgzMDVccG FyfQ== CLINICAL HISTORY (test g7lovQVvYQWygEE4MpTkII code = 3356) Rvf3wcx6TvwFDzhYGuIAvz iHXvlwDoil02zLS6tD81WO 3cYTQkLmH0XPOiphU3Fnv9 YBZyGFAkmDSlS040b0zdu3 fngrKsnLP6mUbkYJJhCVRw CCvgNPRdKkKnM9nnxdlcs0 zhSW4dVZqtwoYsGNeqrLxw MMIjnCXwppboc6NcJRCxdR 3nIUKwiwShJZ4yKFWrySYo fQ== SPECIMEN SOURCE (test j7qtaQJpZVKgsJR2MqAuJF code = 3377) Nfc9wmi3BjmOGyrTKjJXmy sOTxgxFfzx24nFV7nK63TF 6jNPMrAyZ2MGVqgbF8Vvq2 USDmGTDqkFHuA941u3fvq1 xclaUeiEW2bPzpGOEeBONb TGgmZIAwXkOgNSXcZJ6lqB hccGFyfQ== GROSS DESCRIPTION (test u2mmtECvTUGbcDBiAgCgAK code = 3366) HyOGMpf2mxRCGpwLNjRyBu MzNcZnRuYmpcdWMxXGRlZm Obg9fhr845fLEgz2akVVZx JiV5iEExFSQkeFOcG238k0 dgr2vregBkvDL9UZVzKAC4 KLsjrvUgfrD4OVujjBMhRz S4MIpoqmGrWQjertAaheJz Lcp8IAOxI431MJM2oDlot3 vrORH0MBQhKNCzXwYgJp7l mKPfI475ZLGnHFNTTQYpzK x1SFHyhzGnwfVzxZKXq570 J688u1frRGTmjfZhmZgMrs tot6tvV525EMBreMOmlwJg BbGmJZDqaVDxtWO3ARJdTR 2dqvypTfXaCH1csaeeIxAj PB5onlw7TsUvXJ3wqdnrXm WaNPseCBDriyovOQTbg2Rs ebjeJV2gU7Jgd6I1sI2zaT RlXTNxeNEkQaIvDVBpcn2v uTJkHYvzl1MvSXV6tlZ7cM YqwNAyNOWwSO17Vhahc1Gu LerrUXT3ZXZiorHtu1Usz5 phGqTrbrDyG4rbE5DcDOMe DVAkVDTgVsXseyXgj7Muy9 SabHYeeVm7y0szQZTgORYn lWqdj6vjOVQ9HPLdQ3R8dR Lgv5uuONebWYFtpKN3tgmv GKbgOJRwicT5zqygSYapNX AcmSM0raqwCXtiLPXdSwX7 qfzlUVgnXLQhPSK8NAbrl0 79FHE5BGvgRmgnDNslHVHq bmNvbnRccGduZGVjXHBsYW luXHBsYWluXGYwXGZzMjRc qPkrrJzlcH4zBrPsZyYqWB chGQ1bNFHzJ8vugJHdSHBe CVEqS1kdKvBoqD4nuMveJW aotyTwTPEoANUcV3ZxboHe OKlyWDYlsm4noAviYHvjAv HpAJBfa0d3gVT2zYTfdHD1 lVTroCunFmMyGX2grXXlNJ 9qDTjeRPclzhRgl9QnAA49 bWJlciBhbmQgImFwcGVuZG a6YwRiwoLtT06jw5migSHl p5SaHSLwXxMzD73utFLaLA NtMeHfvQptl4BpEZFbQTdw GY26USR6Pu8taPGoTTCltn U9g7BnAAisTLJuEvtwXZRr yQIdPXZsUOogUMWbV8TxfM 0jEX5GRhibKYSeZWZIG0Lf S23haKPmlC== MICROSCOPIC DESCRIPTION z0tmyKZfVJRgcBN8TvUtFE (test code = 3371) Rwq9mps8AalVNfkFBkILeh vCDjavVwlx04nWD6nN05IE 9nRAGqUtG6LCAzkaU7Mno5 MRFyMTOspGPsL239a5izu8 dwpdXwvQD0xQbgMYAsHUNf OSdeRXByBzEonEKwYz9jpD VkXHBhcn0= Gross assessment was [facility] performed at ([facility], = 2777) Department of Pathology, [address] [place] [id number], Technical component was [facility] performed at ([facility], = 1759) Department of Pathology, [address] [place] [id number], Professional component [facility] was performed at ([facility], code = 2779) Department of Pathology, [address] [place] [id number], [facility] [id number] 10:44:00 Test Item Value Reference Range Interpretation Comments Case Report (test code Surgical Pathology = 104) Report Case: [id number] Authorizing Provider: Tom Mann MD Collected: 03/27/2021 11:53 AM Ordering Location: [facility] Endoscopy Received: 03/27/2021 02:10 PM Services Pathologist: Giorgi Rose MD Specimen: Appendix, azppendical lypoma biopsy DIAGNOSIS (test code = [id number] 3220) FuZzEwMzNcZnRuYmpcdWMx IHtccnRmMVxlcGljOTIwMl gjptYyGAZoaTQkK6Zkqpxf GRhfEI2pDX1nvCsvlHNhhU DhNTLtVhOqz6ote564qWGq j5trDRXIotnadDq8qZvuN5 5aq3G2JtjoP16cmHCwCNdx bGFpblxmczIwIFBBUlQgQS KDQUVXGyTAD4XRTCDIPHPD A9KuKRZVO5HCYKOIR0IcH9 YRWUBAGCAORHrKTM4SCIbb gIErNMUIAyaWFoKWE7xTMw eJCL2FZ61KISWNWHLSWQIF UEVSRklDSUFMIFNVQkVQSV RIRUxJQUwgTUFUVVJFIEFE AEZVD8YfYYfHO3ECNwakAO FtYyKRSSYLNbBiUd1FIS9M NFwUSzIVL0cqVKxbKUC2z0 xydGYxXHNzdGUxODAwMFxh bnNpXGRlZmxhbmcxMDMzXG N4mrPcGAZgOUjjOYLyXZzd Ks4uyUTllXfmIrXtUOFvv4 mfoaJWaoynqHc3c4seMHOi JyL9eBQiFJitG0igesGkuZ KrSOYqBSw1vS18CHKizV1z oCOiUMfvtmPyUiF1PMbwGB ZtBkI5EGRvlSWnTTNfE8dl ZWQwXGdyZWVuMFxibHVlMC Y2cUuow6G0zBQhdQLlkOzs RtNwCtEzGzMMd3HjFOn1pZ bnS2JvQERlKkA0aFMfVLWx IAzgYVMdLGSpgpK4aN73CB lsusR0gSOgt9Vuf54bq698 rX6stZOzDYH1FTNsWNOjqO PtNCSrXFB1AEIiiHKtQ4nm JCVhHJ5muygsNXnxOIfqDG FsjCV8QRNtlSGlA9RrGOVk ZXmqZEUohng2GrSsQf5muX GleJrfGQugk1pxe8nnxVPt Abt4IPXfKmUsTfctTCxqe4 Wyj4lpHVAydm4pGGX0xRQr yZdrw0J1dWEaIWXoeDSwER NmDX5lnCHiVPIcsX4huoom XHBnYnJkcmhlYWRccGdicm AnUi9sqKkgOEZ7OMshV1xg gQ5qBvQ8TBjxB4wemB1tBB y7BDxdCSAjnRT5wwK6QSPo bINmU4WjcU3uKZEwHK5uhj z7g2thRYA9ACloQNDlZuL6 baW5IXLiwWPlQHCppMesTE srl589DSP7RmGtLBTdx9Qi R6FhrHgtC02giDdeY99pNE ZneXgtsQ4nuKkxgQ6oYnXk WqUxXPozcStsNV5zYDGcA5 rfeGSfILPoHXCgU0nsUwVq iM6etOgiRUlwpoZlALJgLc b8IAHbmRQeYYGhOzp5HCZb ODRdS63ahkzgTQC4rJ9bp4 xcf1KqIDmlLOC0YXAgg27q KJjjelX7HTudNu8oKTWoNv h4H2gbBSP2aC== CPT Code(s) (test code l6hwlKUvDGUdyNL7GqEnNL = 3357) Ouc2qwz1PycRDyvLTcOFur rENkmuXior99qGF1sO90MA 2zHJFwSbP8DRVlppI5Xuu8 VYOeBFCdhIYvO990x3ggt5 cyopJxpID0tAozJGCyNMQk YWluXGZzMjAgODgzMDVccG FyfQ== CLINICAL HISTORY (test u0dmtYExQCMykAX2AqJmVH code = 3356) Egc2tri3ZudDRxcOCfQPic qUZmtfLaxb05nUG8uT01XL 9gCUXwGvJ1CLRotkT3Bzd9 EAGeHNDbvMNcI993h5iqi4 twilGotWH9aJwzCLQbDGHg KNpeIHVhYeNnA2lupxvxn6 pyTR4hWXxsqjRoLCjzwXdh WAGwyRIiycckc6SuWQRilT 7iXCEchyRbJJ1tNLJvzUHw fQ== SPECIMEN SOURCE (test i5ojmLLcLZYvxLV9IkVnNG code = 3377) Uzj8oml4EpwVQtlCGiNLyh gXUxtdXncq09gNR0eM11RP 4mLMOdUwE8TDNhpjS5Bem3 WORlOJTubHEqP003h0aht6 thacZcfVF9nMtmVHDcPIXb WXmqRVOcQxNmFPUqOV3exT hccGFyfQ== GROSS DESCRIPTION (test j2sufYSeCSNcfBNeXlRuFR code = 3366) HfUKOoa1zvEMGcfANoWzTw MzNcZnRuYmpcdWMxXGRlZm Bwi4rcs655eTLmv2yvPCPi BtA7yOGyBKKghTYaK712u8 yxv8vxdePakST1JLBoOGC2 CPysdcSjokV9ZDbeeAJmLg R1LSdlenYjONsdezXkqbJb Cze6EAHvN455RFY8jWtdk6 viHHO7APMjBAReIuMcPy1d gKDwK958QTGqPOZJYZDciM k4ADGualUgccMqbUADt376 L914l2oxNHGarcGebQiFnx ahi7caW078WXYmlMZlgmPy WjPzCJYttUAnwIG7ITAfGM 8vmnihWjSeJY4gnlvhMmQa DD8pmsp3SkJiNJ6dftbnNv IgKJkuPYGzluegMPPtm5Uw drdqPD9hU2Oeg8S8aX0pvV DuZWFtwCGmNmCbXEKxpy4k pBThYAfaw3PpUIM3xrM3dF QmdRVbOXZgFB70Zwfil4Ed QrinRTJ5CEAslnBuu4Csa1 zzDkMxslTkW1pdC7PdYXKe AOTjJTDeIrDelcKub6Wfu9 XqiJDknPl8w5rgOSArEEOe uCgbl1niDSL8SPPmQ3L9bH Bea3sxCWvyGCWzdPW1vdho QXakCBTmbyH7nvvdSSskYS WazEB8jqpxSNrsUGDmMyC4 vixhVSfgQRRsEZB3JJown8 51TEF6PWujFataXLkrATGs bmNvbnRccGduZGVjXHBsYW luXHBsYWluXGYwXGZzMjRc qQzplMboiV2nKoFmMbGjDL ijLV5nYFCkA5uglTRhIWWu RHPzK8voGsUmiX1hqSmyLS gygfOgTVLhNBXaJ4NnpjTz EIsjOAOqxz3lsInfRMxxNa DvHLVnj2d8pNM8bEMkjZO2 gOInhNsfMuEbPM3mjVToRA 8bGKfsTDsnjjJkw9RqQC20 bWJlciBhbmQgImFwcGVuZG d8HpNnwhDwA97of7fhwWMs z7NaKTGaCgFrZ17acXGzEG AsVdXxfKitn1ZbDTJeRRqj RH16HYN1Yu1plZZpWKAfrv H6k4GbOBryANVuYomqILMi zDAtACLqKMddBSDuO1LxeX 5bDY0HAqtkAQGgIPHIT9Lm L60rmWNtfD== MICROSCOPIC DESCRIPTION s2dosSYiPZOdeCW5DbGeXG (test code = 3371) Tnj5mzh7FttVRkgTDySNnt yZEitnGnmf47vDT3nC70BD 2uJHQgSbB8FALaekC7Nwm9 MZEbXKZsxIKbK500t6may5 nteeKptAY6yDcxHHRwYIQs BFxeDSCvCjEpgTVxIm8xzN VkXHBhcn0= Gross assessment was [facility] performed at (test [facility], = 2777) Department of Pathology, [address] [place] [address], Technical component was [facility] performed at ([facility], = 2778) Department of Pathology, [address] [place] [address], Professional component [facility] was performed at ([facility], code = 2779) Department of Pathology, [address] [place] [address], [facility] [id number] 10:44:00 Test Item Value Reference Range Interpretation Comments Case Report (test code Surgical Pathology = 104) Report Case: [id number] Authorizing Provider: Tom Mann MD Collected: 03/27/2021 11:53 AM Ordering Location: [facility] Endoscopy Received: 03/27/2021 02:10 PM Services Pathologist: Giorgi Rose MD Specimen: Appendix, azppendical lypoma biopsy DIAGNOSIS (test code = n0oaaLSzQKHyz5agRXMtiH 3220) FuZzEwMzNcZnRuYmpcdWMx IHtccnRmMVxlcGljOTIwMl acdaBjNBXdoBTyF0Trowlm BWodDP1nEI8gcMspqWHmiD NbXFNjRrSrj2qwq321aGGa k3tnCVPXyndmpBg8vLkrK7 7vs8V7YjpvW34cbTRaZFxx bGFpblxmczIwIFBBUlQgQS MMVTJDTjTMJ9YHYYOOKFYO E2FgJLVIG4IDTOJCX5OyD6 CBEVROHTKRHWiCKE7HIKma wRYvGHLRNzfAQyRLB7iNQm cBWP3KQ80EWMDQPSIXNOTB UEVSRklDSUFMIFNVQkVQSV RIRUxJQUwgTUFUVVJFIEFE CVFHS7MjQQgEN5LQKoeeHH ZmRcYXVURVNuEqZl9LCC0I HXkQAjSRR8uuXUabYTM4y5 xydGYxXHNzdGUxODAwMFxh bnNpXGRlZmxhbmcxMDMzXG Z0yfCkNRFiAQndAIXbBUml Xw0zwMZtoYxvBwEhVQFmf4 jmgeZXkwuyhJr7w9qzRMDk KbP0sBHiBYmuJ0azraKweK YoFLMhIVa2tX08THBooG2m eZJqEBkwviWeAiV5EHicRB BjZrW7KBZexETpFMMrV4cs ZWQwXGdyZWVuMFxibHVlMC T4qImra6L9tXSukJNniUag HwIeNbLxWqCKe0YsIHf1sD viT6XnQMDnHgE8pDToUQXf EBlwAQOxCCVuznF8iC01AK szliC3eFXzo0Nxr25dp599 hA4kfNAsIJL8YNHpWLHwhI FsXWFaWHZ9OOLsgFJcR3sx TIBnNX3zwhydZQjbSZrqGI NlgRT7QOMzjSRoE3JpZWQg HBqxXKOiqpg5WqFgEx1crW NeeOchXMqfi2isy8llpAPx Djn3PPFjXzHsLpkqEXlrv9 Jyn0uyGVLeea3dHLU6yZQu mCwmv4O7fKTtGZZbfBBpXJ YrDH2rkNMlOEYcvH0iqyor XHBnYnJkcmhlYWRccGdicm AlEw3vvGybSSW7DHuuG5wb eV7jIxO5JBqkN0hfaP1sUU r7QDmjVCKiwOA5ebD4KINr fXGhM5VuqO2lZWFcEW8iwl d3c5gkFEN1VXmiPAZgFtY5 teE0VFIpoTOqAHZrxJfdQQ lyr157BWX6BnGxFNTdu8Cm F5PvoLwjE87vdDwvZ92tSW EbwAvrbO6tcErwhJ9yZaFf MmEaFAcsqWpzOA4vZQWcV9 iqnGZbWOYuWSKiK9euLwZs wH7mrZnlGLdxhoJyECDrCr u9BEEaxOKkPUAmZps0CCJd KLMgV57lacvkEEM2eN1mf9 iso4HnTPisKTS4EGLtx49t KRrgiaB0MJifMe1wRWNaEu s9R1mpGVO3vV== CPT Code(s) (test code g1nvwKPfGKUcqLH5MzIaOC = 3357) Cci3urj4YlvJYevVKfDYrs rIOybwWtrt61xTO4sE32RO 6wAAVnXiO4AWXcrlW3Yis9 CBDiUXYfrYTaI257v7ybp3 jbpvSzmGT8wSfjFKDrRRRx YWluXGZzMjAgODgzMDVccG FyfQ== CLINICAL HISTORY (test v5btgBKzRYZsxEB6GcGfET code = 3356) Aky8cdy5HxrGLmvGUaSQkp lJAdmqBfro93dJT1zU62CZ 2uFHLoXvW5FOPddxX0Zec6 CAFsMRFcrQJpC461s9dwy2 dfxgLxnYW1mJtlKZBvNTJg JDtxFHFeEaDyI4nchkwam9 tmWZ3qYGeertTvNXpwkDxp EQMxdMDqdbrvf5DmHMQzmK 9uPLGnxsHnHV2wXDCxeFSd fQ== SPECIMEN SOURCE (test r7asaCUnVKOybDK2NeFmQP code = 3377) Nbe3any3TyxTXjjEScYFgp xKNqyeZzak53lSR3aF93LD 4rMUJmHoV5ODRaowF7Mfw7 DVFwEQXfzUTqW979l1slm5 zexqEjeWN0aNxxRKAoVYBy MVorRQHaPdNqOUFxGS4ysX hccGFyfQ== GROSS DESCRIPTION (test d0niqVAwKXYdaQHgHpOtYH code = 3366) BjYXOeb3xxXILmuEHgMmYd MzNcZnRuYmpcdWMxXGRlZm Qal6lpd396uLRnn2ewOPZw VgP0sFLpVFUaxQUsM013z8 cll9kbakXfmCH5UMQfKZI2 NKuycnUwthI8RGeppBBsBq T3ZOpmljUxYQnuxsWojdQe Fmc2ZRVuT000WXU7cYiut4 yxUEA4QWJxMJEnClQfPg0y hQNeR269MBEzLLZVPNAhzM c8IKYtebBuwoIeiAYFc233 K046q9reFFBpwfFdySmLuq zya3bgI245MCIicDLoqpSu EdEaUVRneWCpgFK2WVErCE 6ewsutWeMsFR2jiwviJbMq DS1gvam4KyAvJZ9pqxboFv ZkXAteQFAfzhfbOREyt3Ap ncioGM9nB9Klj8S5hH2jwU LbRVAcfJLmOvNtYXWphs4y bKDcXUktg4WgKPC0ryF3dI QyvCApHIUyEM01Drxje1Li RchaGIU2KAXumlHtx9Cks5 phSfEsniHqV2yqD4KnWKWm PQQgXSDvDbQnjtSwe6Rrj3 ZiaWByrDe4s1wtOMFsDATj sFgyx6zqUTN4MZSdV6R6fC Cns5muRQxeSXVnpIS3zice FUcgBKCumbN9cpbeJTfjJT DelAW4wnfrDRawBOQnXmD8 wwapYEcaHDPzKQD2HUljq1 45KMZ9WKjmOfnaBGmyEOVe bmNvbnRccGduZGVjXHBsYW luXHBsYWluXGYwXGZzMjRc dTrfvOqmoA6wTuIlXaNoNR brMD4tCWCoT0dkkYEwHMIo RQLxO2cmSqChbG3vyTqiFB gueaPbKXDdWUBdS8EpymFy ACkxHDHjbq5hnXrlECaxQl KsMRXns3q2cJU0kXYhtHS8 fUBjpPtpOwDsTO0nbSIqUL 8pETdcZUqjxjEhs2GzDI34 bWJlciBhbmQgImFwcGVuZG i3GdZtsnYoI67jf0ealMPl b3MmWPOxDlFoO68yfBIjDB UvSeUtoHbwc8JjQVUjOFtj TW76AFM8Fx3lpVDpQEBhlg H7p6AwWOdjMUSpTyovYJJn vWQcPEBdXSaoHVByS2YsdO 2dTF6PUdipWYVoLYDHS7Ol L28yjBJhlW== MICROSCOPIC DESCRIPTION s8jhkUHtRAVkwAA6BqUqMH (test code = 3371) Gxd7xqp7CfoKRdhYKnZQdm cIWidxHhrx21mLS2sZ23IX 0bTZQeXpX4XISfhkX1Plo8 KHNoHHGulLXbF597y3fzf3 ccgiNrvMK6oFlwNBFhRCKf FIwqDNHzInCeqICyLn3upD VkXHBhcn0= Gross assessment was [facility] performed at (test code [facility], = 2777) Department of Pathology, [address] [place] [address]16[address], Technical component was [facility] performed at ([facility], = 2778) Department of Pathology, [address] [place] [address], Professional component [facility] was performed at ([facility], code = 2779) Department of Pathology, [address] [place] [address], [facility]ISS[facility] [id number] 10:44:00Surgical Pathology Report Case: [id number] Authorizing Provider: Tom Mann MD Collected: 03/27/2021 11:53 AM Ordering Location: 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 Signing Pathologist Direct Phone Line: [phone] signed by Giorgi Rose MD on 03/28/2021 at 10:44 [id number] of liver with ascites, screening for cancerAppendixA. Received in formalin labeled with the patient's name, medical record number and "appendix" and consists of a 0.2 cm newton soft tissue fragment submitted in toto in A1.LISSETTE White, DOROTA (ASCP)cmperformedBaylQueen of the Valley Hospital, Department of Pathology, [address] [place] [address] 49284, Bwbmpi[facility], Department ofPathology, [address] [place] [address], [facility]coczv[facility],Department of Pathology, [address] [place] [address], QKKD-GLUCOSE [id number] 10:23:00 Test Item Value Reference Range Interpretation Comments POC-GLUCOSE METER 132 mg/dL 70-110 H : TESTED A T [place] [address] (BEAKER) (test code [facility], = 1538) 201[address]: Shipyard Helper/Techni melissa ID = [id number] for SHANEL CAMERON POCT HEMOGLOBIN [id number] 19:57:00 Test Item Value Reference Range Interpretation Comments HEMOGLOBIN A1C (test code = 4548-4) 7.0 % 4.0-5.6 A Lab Interpretation (test code = Abnormal 07713-2) [facility] [id number] 02:41:32Impression:No acute abnormalities. CHEST CT Indication: L breast pain sudden onset Technique: Axial CT images of the chest were obtainedwith contrast.Coronal and sagittal reformats were performed. Dose reduction techniqueswere used (ALARA). Comparison: ?None. RL: 105 ? AFC 02561 Ordering Clinician: KATEY MOSQUEDA Technical Quality: Adequate Findings:Lines: None. Nodes: Subcentimeter mediastinal lymph nodes (short axis) are below sizecriteria. Heart: Coronary artery calcifications. Vessels: No aortic aneurysm. Upper Abdomen: Cholecystectomy clips. Pulmonary: No consolidation or effusion. Bones: No acute fracture. Additional Findings:IVC filter. [facility], Radiant Results Inft User - 03/23/2021 9:42 PM CDT CHEST CTIndication: L breast pain sudden onset Technique: Axial CT images of the chest were obtained with contrast.Coronal and sagittal reformats were performed. Dose reduction techniqueswere used (ALARA).Comparison: None.RL: 105 AFC 45914Ghfiijwh Clinician: KATEY MOSQUEDATechnical Quality: AdequateFindings:Lines: None.Nodes: Subcentimeter mediastinal lymph nodes (shortaxis) are below sizecriteria. Heart: Coronary artery calcifications. Vessels: No aortic aneurysm.Upper Abdomen: Cholecystectomy clips.Pulmonary: No consolidation or effusion.Bones: No acute fracture.Additional Findings: IVC filter.IMPRESSIONImpression:No acute abnormalities. [facility] (NA, K, CL, CO2, GLUCOSE, BUN, CREATININE, CA)2021-03-24 02:16:41 Test Item Value Reference Range Interpretation Comments NA (test code = 140 mmol/L 135-145 4346873492) K (test code = 3.8 mmol/L 3.5-5.0 1644687375) CL (test code = 104 mmol/L 98-108 2384702105) CO2 TOTAL (test code = 28 mmol/L 23-31 1064390934) AGAP (test code = 2-16 1291948282) BUN (test code = 16 mg/dL 7-23 8471420382) GLUCOSE (test code = 137 mg/dL 70-110 H 1218236527) CREATININE (test code = 0.59 mg/dL 0.50-1.04 9530892821) CALCIUM (test code = 9.2 mg/dL 8.6-10.6 6138125807) eGFR (test code = mL/min/1.73m2 4045464315) JENNIFER (test code = JENNIFER) Association of Glomerular Filtration Rate (GFR) and Staging of Kidney Disease* + --+ --+ ------+| GFR (mL/min/1.73 m2) ?| With Kidney Damage ?| ?Without Kidney Damage+ --------+ --------+ +| ?>90 ?| ?Stage one ?| ? Normal ?+ ---+ ---+ -------+| ?60-89 ?| ?Stage two ?| ? Decreased GFR ? + --+ --+ ------+| ?30-59 ?| ?Stage three ?| ? Stage three ? + --+ --+ ------+| ?15-29 ?| ?Stage four ? | ? Stage four ?+ ---+ ---+ -------+| ?<15 (or dialysis) ? ?| ?Stage five ? | ? Stage five ?+ ---+ ---+ -------+ *Each stage assumes the associated GFR level has been in effect for at least three months. ?Stages 1 to 5, with or without kidney disease, indicate chronic kidney disease. Notes: Determination of stages one and two (with eGFR >59mL/min/1.73 m2) requires estimation of kidney damage for at least three months as defined by structural or functional abnormalities of the kidney, manifested by either:Pathological abnormalities or Markers of kidney damage (including abnormalities in the composition of the blood or urine or abnormalities in imaging tests). Lab Interpretation Abnormal (test code = 62249-9) [facility] WITH [id number] 02:03:42 Test Item Value Reference Range Interpretation Comments WBC (test code = See_Comment [Automated 6290-2) message] The sy stem which generated this result transmitted reference range : 4.30 - 11.10 10*3/?L. The reference range was not used to interpret this result as normal/abnormal . RBC (test code = See_Comment [Automated 789-8) message] The sy stem which generated this result transmitted reference range : 3.93 - 5.25 10*6/?L. The reference range was not used to interpret this result as normal/abnormal . HGB (test code = 13.2 g/dL 11.6-15.0 718-7) HCT (test code = 40.5 % 35.7-45.2 4544-3) MCV (test code = 85.3 fL 80.6-95.5 787-2) MCH (test code = 27.8 pg 25.9-32.8 785-6) MCHC (test code = 32.6 g/dL 31.6-35.1 786-4) RDW-SD (test code = 45.1 fL 39.0-49.9 86317-0) RDW-CV (test code = 14.5 % 12.0-15.5 788-0) PLT (test code = See_Comment L [Automated 777-3) message] The sy stem which generated this result transmitted reference range : 166 - 358 10*3/ ?L. The reference r charlotte was not used to interpret this result as normal/abnormal . MPV (test code = 12.2 fL 9.5-12.9 16068-3) NRBC/100 WBC (test See_Comment [Automat ed code = 9541295935) message] The system which generated this result transmitted reference range : 0.0 - 10.0 /100 WBCs. The refer ence range was not u sed to interpret th is result as normal/abnormal . NRBC x10^3 (test code <0.01 See_Comment [Auto mated = 7206964393) message] The s ystem which generated this result transmitted reference range : 10*3/?L. The reference range was not used to interpret this result as normal/abnormal . GRAN MAT (NEUT) % 70.5 % (test code = 770-8) IMM GRAN % (test code 0.40 % = 3671411092) LYMPH % (test code = 20.3 % 736-9) MONO % (test code = 6.6 % 5905-5) EOS % (test code = 1.4 % 713-8) BASO % (test code = 0.8 % 706-2) GRAN MAT x10^3(ANC) 5.22 10*3/uL 1.88-7.09 (test code = 4292625802) IMM GRAN x10^3 (test 0.03 10*3/uL 0.00-0.06 code = 0035176105) LYMPH x10^3 (test code 1.50 10*3/uL 1.32-3.29 = 731-0) MONO x10^3 (test code 0.49 10*3/uL 0.33-0.92 = 742-7) EOS x10^3 (test code = 0.10 10*3/uL 0.03-0.39 711-2) BASO x10^3 (test code 0.06 10*3/uL 0.01-0.07 = 704-7) Lab Interpretation Abnormal (test code = 04529-9) [facility]US, ABDOMINAL, [id number] 15:01:00 Referring: DOROTA Alvares-CCirrhosis, screen for HCCReason for Exam:->Cirrhosis [facility] : 1965 Sex: FFINAL REPORT TECHNIQUE: Grayscale ultrasound of the abdomen. INDICA TION: Cirrhosis. COMPARISON: Ultrasound from 11/20/2019. FINDINGS: MIDLINE VASCULATURE: The visualized inferior vena cava is unremarkable. The maximum visualized aortic diameter is 2.4 cm. LIVER: The liver is enlarged at 20.9 cm in right hepatic lobe length with a nodular contour. The increased liver e chogenicity is likely due to fatty infiltration. No focal lesions. The main portal vein is patent and measures 1.4 cm in diameter. BILIARY:Gallbladder: Surgically absentCommon bile duct measures 0.7 cm, within normal limits. No intrahepatic biliary ductal dilatation. PANCREAS: Incompletely visualized due to overlying bowel gas. The partially visualized pancreatic body is normal. SPLEEN: The spleen isenlarged at 16.5 cm in length. PERITONEUM: No free fluid. KIDNEYS: Normal in size bilaterally. No hydronephrosis. No sonographically evident solid mass lesion. IMPRESSION: 1.Cirrhosis without a focal hepatic lesion. 2.Sequelae of portal hypertension include a mildly dilated main portal vein and moderate splenomegaly. Signed: Shantanu Perea Verified Date/Time: 02/21/2021 15:01:00 US abdomen [id number] 15:01:00Interface, External Ris In - 02/21/2021 3:03 PM CDTFINAL REPORT TECHNIQUE: Grayscale ultrasound of the abdomen. INDICATION: Cirrhosis. COMPARISON: Ultrasound from 11/20/2019. FINDINGS: MIDLINE VASCULATURE: The visualized inferior vena cava is unremarkable. The maximum visualized aortic diameter is 2.4 cm. LIVER: The liver is enlarged at 20.9 cm in right hepatic lobe length with a nodular contour. The increased liver echogenicity is likely due to fatty infiltration. No focal le sions. The main portal vein is patent and measures 1.4 cm in diameter. BILIARY:Gallbladder: Surgically absentCommon bile duct measures 0.7 cm, within normal limits. No intrahepatic biliary ductal dilatation. PANCREAS: Incompletely visualized due to overlying bowel gas. The partially visualized pancreatic body is normal. SPLEEN: The spleen is enlarged at 16.5 cm in length. PERITONEUM: No free fluid. KIDNEYS: Normal in size bilaterally. No hydronephrosis. No sonographically evident solid mass lesion.IMPRESSION: 1.Cirrhosis without a focal hepatic lesion. 2.Sequelae of portal hypertension include a mildly dilated main portal vein and moderate splenomegaly. Signed: Shantanu Perea Verified Date/Time: 02/21/2021 15:01:00 [facility]01:00Interface, External Ris In - 02/21/2021 3:03 PM CDTFINAL REPORT TECHNIQUE: Grayscale ultrasound of the abdomen. INDICATION: Cirrhosis. COMPARISON: Ultrasound from 11/20/2019. FINDINGS: MIDLINE VASCULATURE: The visualized inferior vena cava is unremarkable. The maximum visualized aortic diameter is 2.4 cm. LIVER: The liver is enlarged at 20.9 cm in right hepatic lobe length with a nodular contour. The increased liver echogenicity is likely due to fatty infiltration. No focal lesions. The main portal vein is patent and measures 1.4 cm in diameter. BILIARY:Gallbladder: Surgically absentCommon bile duct measures 0.7 cm, within normal limits. No intrahepatic biliary ductal dilatation. PANCREAS: Incompletely visualized due to overlying bowel gas. The partially visualized pancreatic body is normal. SPLEEN: The spleen is enlarged at 16.5 cm in length. PERITONEUM: No free fluid. KIDNEYS: Normal in size bilaterally. No hydronephrosis. No sonographically evident solid mass lesion.IMPRESSION: 1.Cirrhosis without a focal hepatic lesion. 2.Sequelae of portal hypertension include a mildly dilated main portal vein and moderate splenomegaly. Signed: Shantanu Perea MDReport Verified Date/Time: 02/21/2021 15:01:00 [facility] [id number] 11:47:00 Test Item Value Reference Range Interpretation Comments POC-GLUCOSE METER 174 mg/dL 70-110 H : TESTED A T [facility] 6720 (BEAKER) (test code = SILVANAAPOLINAR Manriquez [facility], 1538) [address]: Shipyard Helper/Techni melissa ID = [id number] for MIGUEL JIMÉNEZ NERI PROTHROMBIN TIME/[id number] 10:03:00 Test Item Value Reference Range Interpretation Comments PROTIME (BEAKER) 16.1 seconds 11.9-14.2 H (test code = 759) INR (BEAKER) (test 1.33 See_Comment [Automat ed message] code = 370) The system [employer] generated this result transmitted ref erence range: <=5.90. The reference range was not used to int erpret this result as normal/abnormal . Effective 03/08/2019: PT Reference Range ChangeNew: 11.9-14.2 Previous: 11.7- 14.7RECOMMENDED COUMADIN/WARFARIN INR THERAPY RANGESSTANDARD DOSE: 2.0-3.0 Includes: PROPHYLAXIS for venous thrombosis, systemic embolization; TREATMENT for venous thrombosis and/or pulmonary embolus.HIGH RISK: Target INR is2.5-3.5 for patients wiht mechanical heart valves.POCT-GLUCOSE [id number] 09:07:00 Test Item Value Reference Range Interpretation Comments POC-GLUCOSE METER 157 mg/dL 70-110 H : TESTED A T [facility] 6720 (SERGIO) (test code = [place], 1538) [address]: Shipyard Helper/Techni melissa ID = [id number] for NERI ZEPEDA [id number] 07:53:00 Test Item Value Reference Range Interpretation Comments Ferritin (test code = 1237.70 ng/mL 5-275 H 2276-4) JENNIFER (test code = JENNIFER) Shipyard Helper ID - EDASI Lab Interpretation (test Abnormal code = 99245-0) [facility] 07[facility]:00 Test Item Value Reference Range Interpretation Comments Ferritin (test code = 1237.70 ng/mL 5-275 H 2276-4) JENNIFER (test code = JENNIFER) Shipyard Helper ID - EDASI Lab Interpretation (test Abnormal code = 54651-0) [facility] 07:53:00 Test Item Value Reference Range Interpretation Comments Ferritin (test code = 1237.70 ng/mL 5.00-275.00 H 2276-4) JENNIFER (test code = JENNIFER) Shipyard Helper ID - EDASI Lab Interpretation (test Abnormal code = 00063-5) [facility] 07:53:00 Test Item Value Reference Range Interpretation Comments Ferritin (test code = 1237.70 ng/mL 5.00-275.00 H 2276-4) JENNIFER (test code = JENNIFER) Shipyard Helper ID - EDASI Lab Interpretation (test Abnormal code = 86592-2) [facility]09 07:53:00 Test Item Value Reference Range Interpretation Comments FERRITIN (BEAKER) (test code = 1237.70 ng/mL 5.00-275.00 H 361) Shipyard Helper ID - EDASIComprehensive metabolic [id number] 06:52:00 Test Item Value Reference Range Interpretation Comments Protein, Total (test 8.2 See_Comment [Autom ated code = 2885-2) message] The system which generated this result transmit christopher reference range : 6.0 - 8.3 gm/dL . The reference range was not u sed to interpret th is result as normal/abnormal . Albumin (test code = 3.8 g/dL 3.5-5 51109-4) Alkaline Phosphatase 72 U/L 40-150 (test code = 6768-6) Total Bilirubin (test 1.1 mg/dL 0.2-1.2 code = 1975-2) Sodium (test code = 132 meq/L 136-145 L 2951-2) Potassium (test code 4.4 meq/L 3.5-5.1 = 2823-3) Chloride (test code = 95 meq/L 98-107 L 2075-0) CO2 (test code = 27 meq/L 22-29 2028-9) BUN (test code = 23 mg/dL 7-21 H 3094-0) Creatinine (test code 0.76 mg/dL 0.57-1.25 = 2160-0) Glucose (test code = 88 mg/dL 70-105 2345-7) Calcium (test code = 9.1 mg/dL 8.4-10.2 37817-5) AST (test code = 17 U/L 5-34 1920-8) ALT (test code = 16 U/L 6-55 1742-6) EGFR (test code = 78 mL/min/1.73 [place] [address]-5) NOT ACCURATE CREATININE CLEARANCE IN PREDICTING GLOMERULAR FILTRATION RATE . ESTIMATED GFR I S NOT APPLICABLE FOR DIALYSIS PATIEN TSFrannie JENNIFER (test code = JENNIFER) Shipyard Helper ID - EDASI Lab Interpretation Abnormal (test code = 54312-7) [facility]act[facility] (LDH)2021-01-17 06:52:00 Test Item Value Reference Range Interpretation Comments LDH (test code = 2532-0) 196 U/L 125-220 JENNIFER (test code = JENNIFER) Shipyard Helper ID - EDASI Lab Interpretation (test Normal code = 02203-7) [facility] [id number] 06:52:00 Test Item Value Reference Range Interpretation Comments CRP (test code = 676) 0.10 mg/dL 0-0.5 JENNIFER (test code = JENNIFER) Shipyard Helper ID - EDASI Lab Interpretation (test Normal code = 07065-7) [facility] [id number] 06:52:00 Test Item Value Reference Range Interpretation Comments Protein, Total (test 8.2 See_Comment [Autom ated code = 2885-2) message] The system which generated this result transmit christopher reference range : 6.0 - 8.3 gm/dL . The reference range was not u sed to interpret th is result as normal/abnormal . Albumin (test code = 3.8 g/dL 3.5-5 91361-3) Alkaline Phosphatase 72 U/L 40-150 (test code = 6768-6) Total Bilirubin (test 1.1 mg/dL 0.2-1.2 code = 1975-2) Sodium (test code = 132 meq/L 136-145 L 2951-2) Potassium (test code 4.4 meq/L 3.5-5.1 = 2823-3) Chloride (test code = 95 meq/L 98-107 L 2075-0) CO2 (test code = 27 meq/L 22-29 2028-9) BUN (test code = 23 mg/dL 7-21 H 3094-0) Creatinine (test code 0.76 mg/dL 0.57-1.25 = 2160-0) Glucose (test code = 88 mg/dL 70-105 2345-7) Calcium (test code = 9.1 mg/dL 8.4-10.2 29005-9) AST (test code = 17 U/L 5-34 1920-8) ALT (test code = 16 U/L 6-55 1742-6) EGFR (test code = 78 mL/min/1.73 [place] [address]-5) NOT ACCURATE CREATININE CLEARANCE IN PREDICTING GLOMERULAR FILTRATION RATE . ESTIMATED GFR I S NOT APPLICABLE FOR DIALYSIS PATIEN TS. JENNIFER (test code = JENNIFER) [employer] ID - EDASI Lab Interpretation Abnormal (test code = 41323-5) [facility] 06:52:00 Test Item Value Reference Range Interpretation Comments LDH (test code = 2532-0) 196 U/L 125-220 JENNIFER (test code = JENNIFER) [employer] ID - [facility]AS[facility] Lab Interpretation (test Normal code = 42883-5) [facility] [id number] 06:52:00 Test Item Value Reference Range Interpretation Comments CRP (test code = 676) 0.10 mg/dL 0-0.5 JENNIFER (test code = JENNIFER) [employer] ID - [facility] Lab Interpretation (test Normal code = 98616-4) [facility] [id number] 06:52:00 Test Item Value Reference Range Interpretation Comments Protein, Total (test 8.2 See_Comment [Autom ated code = 2885-2) message] The system which generated this result transmit christopher reference range : 6.0 - 8.3 gm/dL . The reference range was not u sed to interpret th is result as normal/abnormal . Albumin (test code = 3.8 g/dL 3.5-5.0 77133-2) Alkaline Phosphatase 72 U/L 40-150 (test code = 6768-6) Total Bilirubin (test 1.1 mg/dL 0.2-1.2 code = 1974-2) Sodium (test code = 132 meq/L 136-145 L 2951-2) Potassium (test code 4.4 meq/L 3.5-5.1 = 2823-3) Chloride (test code = 95 meq/L 98-107 L 5-0) CO2 (test code = 27 meq/L 22-29 8-9) BUN (test code = 23 mg/dL 7-21 H 3094-0) Creatinine (test code 0.76 mg/dL 0.57-1.25 = 2160-0) Glucose (test code = 88 mg/dL 70-105 2345-7) Calcium (test code = 9.1 mg/dL 8.4-10.2 73932-1) AST (test code = 17 U/L 5-34 1920-8) ALT (test code = 16 U/L 6-55 1742-6) EGFR (test code = 78 mL/min/1.73 [place] [address]-6) NOT ACCURATE CREATININE CLEARANCE IN PREDICTING GLOMERULAR FILTRATION RATE . ESTIMATED GFR I S NOT APPLICABLE FOR DIALYSIS PATIEN SHADIA. JENNIFER (test code = JENNIFER) [employer] ID - [facility] Lab Interpretation Abnormal (test code = 32478-8) [facility]21-01-17 06:52:00 Test Item Value Reference Range Interpretation Comments LDH (test code = 2532-0) 196 U/L 125-220 JENNIFER (test code = JENNIFER) [employer] ID - [facility] Lab Interpretation (test Normal code = 20000-9) [facility] [id number] 06:52:00 Test Item Value Reference Range Interpretation Comments CRP (test code = 676) 0.10 mg/dL 0.00-0.50 JENNIFER (test code = JENNIFER) [employer] ID - [facility] Lab Interpretation (test Normal code = 18370-2) [facility] [id number] 06:52:00 Test Item Value Reference Range Interpretation Comments Protein, Total (test 8.2 See_Comment [Autom ated code = 2885-2) message] The system which generated this result transmit christopher reference range : 6.0 - 8.3 gm/dL . The reference range was not u sed to interpret th is result as normal/abnormal . Albumin (test code = 3.8 g/dL 3.5-5.0 50678-6) Alkaline Phosphatase 72 U/L 40-150 (test code = 6768-6) Total Bilirubin (test 1.1 mg/dL 0.2-1.2 code = 1975-2) Sodium (test code = 132 meq/L 136-145 L 2951-2) Potassium (test code 4.4 meq/L 3.5-5.1 = 2823-3) Chloride (test code = 95 meq/L 98-107 L 2074-0) CO2 (test code = 27 meq/L 22-29 8-9) BUN (test code = 23 mg/dL 7-21 H 3094-0) Creatinine (test code 0.76 mg/dL 0.57-1.25 = 2160-0) Glucose (test code = 88 mg/dL 70-105 2345-7) Calcium (test code = 9.1 mg/dL 8.4-10.2 14509-7) AST (test code = 17 U/L 5-34 1920-8) ALT (test code = 16 U/L 6-55 1742-6) EGFR (test code = 78 mL/min/1.73 [place] [address]-0) NOT ACCURATE CREATININE CLEARANCE IN PREDICTING GLOMERULAR FILTRATION RATE . ESTIMATED GFR I S NOT APPLICABLE FOR DIALYSIS PATIEN TS. JENNIFER (test code = JENNIFER) [employer] ID - EDASI Lab Interpretation Abnormal (test code = 79653-9) [facility]2021-01-17 06:52:00 Test Item Value Reference Range Interpretation Comments LDH (test code = 2532-0) 196 U/L 125-220 JENNIFER (test code = JENNIFER) [employer] ID - [facility]AS[facility] Lab Interpretation (test Normal code = 15933-2) [facility] [id number] 06:52:00 Test Item Value Reference Range Interpretation Comments CRP (test code = 676) 0.10 mg/dL 0.00-0.50 JENNIFER (test code = JENNIFER) [employer] ID - [facility]ASI Lab Interpretation (test Normal code = 12649-2) [facility] [id number] 06:52:00 Test Item Value Reference Range Interpretation Comments TOTAL PROTEIN 8.2 gm/dL 6.0-8.3 (BEAKER) (test code = 770) ALBUMIN (BEAKER) 3.8 g/dL 3.5-5.0 (test code = 1145) ALKALINE PHOSPHATASE 72 U/L 40-150 (BEAKER) (test code = 346) BILIRUBIN TOTAL 1.1 mg/dL 0.2-1.2 (BEAKER) (test code = 377) SODIUM (BEAKER) (test 132 meq/L 136-145 L code = 381) POTASSIUM (BEAKER) 4.4 meq/L 3.5-5.1 (test code = 379) CHLORIDE (BEAKER) 95 meq/L 98-107 L (test code = 382) CO2 (BEAKER) (test 27 meq/L 22-29 code = 355) BLOOD UREA NITROGEN 23 mg/dL 7-21 H (BEAKER) (test code = 354) CREATININE (BEAKER) 0.76 mg/dL 0.57-1.25 (test code = 358) GLUCOSE RANDOM 88 mg/dL 70-105 (BEAKER) (test code = 652) CALCIUM (BEAKER) 9.1 mg/dL 8.4-10.2 (test code = 697) AST (SGOT) (BEAKER) 17 U/L 5-34 (test code = 353) ALT (SGPT) (BEAKER) 16 U/L 6-55 (test code = 347) EGFR (BEAKER) (test 78 mL/min/1.73 ESTIMA CHRISTOPHER GFR IS code = 1092) sq m NOT ACCURATE CREATININE CLEARANCE IN PREDICTING GLOMERULAR FILTRATION RATE . ESTIMATED GFR I S NOT APPLICABLE FOR DIALYSIS PATIEN TS. Shipyard Hel[employer] ID - EDASILACTATE DEHYDROGENASE (LDH)2021-01-17 06:52:00 Test Item Value Reference Range Interpretation Comments LACTATE DEHYDROGENASE (BEAKER) (test 196 U/L 125-220 code = 635) [employer] ID - EDASIC-REACTIVE [id number] 06:52:00 Test Item Value Reference Range Interpretation Comments C-REACTIVE PROTEIN (BEAKER) (test 0.10 mg/dL 0.00-0.50 code = 676) [employer] ID - RHYQUE-[id number] 06:10:00 Test Item Value Reference Range Interpretation Comments D-Dimer, Quant (test 1.62 See_Comment H [Autom ated code = 10332-9) message] The system which generated this result transmitted reference range : <0.50 MG/L FEU. The reference range was not used to interpr et this result as normal/abnormal . JENNIFER (test code = JENNIFER) Intended Use: The D-Dimer Assay can be used to aid in the diagnosis of Deep Vein Thrombosis (DVT) and Pulmonary Embolism Disease (PED).In patients with low pre-test probability, various studies concerning STA Liatest D-dimer test have reported that with a cutoff value of 0.50 MG/L FEU, the Negative Predictive Value (NPV) regarding the exclusion of thrombosis is within 95-100% range. Lab Interpretation Abnormal (test code = 46775-4) [facility][id number] 06:10:00 Test Item Value Reference Range Interpretation Comments D-Dimer, Quant (test 1.62 See_Comment H [Autom ated code = 33999-4) message] The system which generated this result transmitted reference range : <0.50 MG/L FEU. The reference range was not used to interpr et this result as normal/abnormal . JENNIFER (test code = JENNIFER) Intended Use: The D-Dimer Assay can be used to aid in the diagnosis of Deep Vein Thrombosis (DVT) and Pulmonary Embolism Disease (PED).In patients with low pre-test probability, various studies concerning STA Liatest D-dimer test have reported that with a cutoff value of 0.50 MG/L FEU, the Negative Predictive Value (NPV) regarding the exclusion of thrombosis is within 95-100% range. Lab Interpretation Abnormal (test code = 27333-8) [facility][id number] 06:10:00 Test Item Value Reference Range Interpretation Comments D-Dimer, Quant (test 1.62 See_Comment H [Autom ated code = 60250-6) message] The system which generated this result transmitted reference range : <0.50 MG/L FEU. The reference range was not used to interpr et this result as normal/abnormal . JENNIFER (test code = JENNIFER) Intended Use: The D-Dimer Assay can be used to aid in the diagnosis of Deep Vein Thrombosis (DVT) and Pulmonary Embolism Disease (PED).In patients with low pre-test probability, various studies concerning STA Liatest D-dimer test have reported that with a cutoff value of 0.50 MG/L FEU, the Negative Predictive Value (NPV) regarding the exclusion of thrombosis is within 95-100% range. Lab Interpretation Abnormal (test code = 64186-5) [facility][id number] 06:10:00 Test Item Value Reference Range Interpretation Comments D-Dimer, Quant (test 1.62 See_Comment H [Autom ated code = 82001-2) message] The system which generated this result transmitted reference range : <0.50 MG/L FEU. The reference range was not used to interpr et this result as normal/abnormal . JENNIFER (test code = JENNIFER) Intended Use: The D-Dimer Assay can be used to aid in the diagnosis of Deep Vein Thrombosis (DVT) and Pulmonary Embolism Disease (PED).In patients with low pre-test probability, various studies concerning STA Liatest D-dimer test have reported that with a cutoff value of 0.50 MG/L FEU, the Negative Predictive Value (NPV) regarding the exclusion of thrombosis is within 95-100% range. Lab Interpretation Abnormal (test code = 97749-9) [facility][id number] 06:10:00 Test Item Value Reference Range Interpretation Comments D-DIMER QUANTITATIVE (BEAKER) 1.62 MG/L FEU <0.50 H (test code = 671) Intended Use: The D-Dimer Assay can be used to aid in the diagnosis of Deep Vein Thrombosis (DVT) and Pulmonary Embolism Disease (PED).In patients with low pre- test probability, various studies concerning STA Liatest D-dimer test have reported that with a cutoff value of 0.50 MG/L FEU, the Negative Predictive Value (NPV) regarding the exclusion of thrombosis is within 95-100% range.CBC with platelet count + automated [id number] 06:08:00 Test Item Value Reference Range Interpretation Comments WBC (test code = 6690-2) 11.0 See_Comment H [A utomated message] The system [employer] generated this result transmitted ref erence range: 3.5 - 10 .5 K/L. The refe rence range was not u sed to interpret this result as normal/abnor mal. RBC (test code = 789-8) 5.51 See_Comment H [Au tomated message] The system [employer] generated this result transmitted ref erence range: 3.93 - 5 .22 M/L. The refe rence range was not u sed to interpret this result as normal/abnor mal. MCHC (test code = 786-4) 34.5 See_Comment [A utomated message] The system [employer] generated this result transmitted ref erence range: 32.2 - 3 5.5 GM/DL. The refe rence range was not u sed to interpret this result as normal/abnor mal. Hematocrit (test code = 44.6 % 34.1-44.9 4544-3) MCV (test code = 787-2) 80.9 fL 79.4-94.8 MCH (test code = 785-6) 27.9 pg 25.6-32.2 RDW (test code = 788-0) 13.9 % 11.7-14.4 Platelets (test code = 222 See_Comment [Aut omated message] 777-3) The system [employer] generated this result transmitted ref erence range: 150 - 45 0 K/CU MM. The referen ce range was not u sed to interpret this result as normal/abnor mal. MPV (test code = 11.3 fL 9.4-12.3 33948-0) nRBC (test code = 413) 0 See_Comment [Aut omated message] The system [employer] generated this result transmitted ref erence range: 0 - 0 /1 00 WBC. The refere nce range was not u sed to interpret this result as normal/abnor mal. % Neutros (test code = 72 % 429) % Lymphs (test code = 18 % 430) % Monos (test code = 8 % 431) % Eos (test code = 432) 0 % % Baso (test code = 437) 0 % # Neutros (test code = 7.89 See_Comment H [Aut omated message] 670) The system [employer] generated this result transmitted ref erence range: 1.56 - 6 .13 K/L. The refe rence range was not u sed to interpret this result as normal/abnor mal. # Lymphs (test code = 1.94 See_Comment [Auto mated message] 414) The system [employer] generated this result transmitted ref erence range: 1.18 - 3 .74 K/L. The refe rence range was not u sed to interpret this result as normal/abnor mal. # Monos (test code = 0.86 See_Comment H [Autom ated message] 415) The system [employer] generated this result transmitted ref erence range: 0.24 - 0 .36 K/L. The refe rence range was not u sed to interpret this result as normal/abnor mal. # Eos (test code = 416) 0.04 See_Comment [Au tomated message] The system [employer] generated this result transmitted ref erence range: 0.04 - 0 .36 K/L. The refe rence range was not u sed to interpret this result as normal/abnor mal. # Baso (test code = 417) 0.03 See_Comment [A utomated message] The system [employer] generated this result transmitted ref erence range: 0.01 - 0 .08 K/L. The refe rence range was not u sed to interpret this result as normal/abnor mal. Immature 2 % 0-1 H Granulocytes-Relative (test code = 2801) Lab Interpretation (test Abnormal code = 84723-1) [facility] with platelet count + automated [id number] 06:08:00 Test Item Value Reference Range Interpretation Comments WBC (test code = 6690-2) 11.0 See_Comment H [A utomated message] The system [employer] generated this result transmitted ref erence range: 3.5 - 10 .5 K/L. The refe rence range was not u sed to interpret this result as normal/abnor mal. RBC (test code = 789-8) 5.51 See_Comment H [Au tomated message] The system [employer] generated this result transmitted ref erence range: 3.93 - 5 .22 M/L. The refe rence range was not u sed to interpret this result as normal/abnor mal. MCHC (test code = 786-4) 34.5 See_Comment [A utomated message] The system [employer] generated this result transmitted ref erence range: 32.2 - 3 5.5 GM/DL. The refe rence range was not u sed to interpret this result as normal/abnor mal. Hematocrit (test code = 44.6 % 34.1-44.9 4544-3) MCV (test code = 787-2) 80.9 fL 79.4-94.8 MCH (test code = 785-6) 27.9 pg 25.6-32.2 RDW (test code = 788-0) 13.9 % 11.7-14.4 Platelets (test code = 222 See_Comment [Aut omated message] 427-3) The system [employer] generated this result transmitted ref erence range: 150 - 45 0 K/CU MM. The referen ce range was not u sed to interpret this result as normal/abnor mal. MPV (test code = 11.3 fL 9.4-12.3 95704-8) nRBC (test code = 413) 0 See_Comment [Aut omated message] The system [employer] generated this result transmitted ref erence range: 0 - 0 /1 00 WBC. The refere nce range was not u sed to interpret this result as normal/abnor mal. % Neutros (test code = 72 % 429) % Lymphs (test code = 18 % 430) % Monos (test code = 8 % 431) % Eos (test code = 432) 0 % % Baso (test code = 437) 0 % # Neutros (test code = 7.89 See_Comment H [Aut omated message] 670) The system [employer] generated this result transmitted ref erence range: 1.56 - 6 .13 K/L. The refe rence range was not u sed to interpret this result as normal/abnor mal. # Lymphs (test code = 1.94 See_Comment [Auto mated message] 414) The system [employer] generated this result transmitted ref erence range: 1.18 - 3 .74 K/L. The refe rence range was not u sed to interpret this result as normal/abnor mal. # Monos (test code = 0.86 See_Comment H [Autom ated message] 415) The system [employer] generated this result transmitted ref erence range: 0.24 - 0 .36 K/L. The refe rence range was not u sed to interpret this result as normal/abnor mal. # Eos (test code = 416) 0.04 See_Comment [Au tomated message] The system [employer] generated this result transmitted ref erence range: 0.04 - 0 .36 K/L. The refe rence range was not u sed to interpret this result as normal/abnor mal. # Baso (test code = 417) 0.03 See_Comment [A utomated message] The system [employer] generated this result transmitted ref erence range: 0.01 - 0 .08 K/L. The refe rence range was not u sed to interpret this result as normal/abnor mal. Immature 2 % 0-1 H Granulocytes-Relative (test code = 2801) Lab Interpretation (test Abnormal code = 19808-2) [facility] with platelet count + automated [id number] 06:08:00 Test Item Value Reference Range Interpretation Comments WBC (test code = 6690-2) 11.0 See_Comment H [A utomated message] The system [employer] generated this result transmitted ref erence range: 3.5 - 10 .5 K/L. The refe rence range was not u sed to interpret this result as normal/abnor mal. RBC (test code = 789-8) 5.51 See_Comment H [Au tomated message] The system [employer] generated this result transmitted ref erence range: 3.93 - 5 .22 M/L. The refe rence range was not u sed to interpret this result as normal/abnor mal. MCHC (test code = 786-4) 34.5 See_Comment [A utomated message] The system [employer] generated this result transmitted ref erence range: 32.2 - 3 5.5 GM/DL. The refe rence range was not u sed to interpret this result as normal/abnor mal. Hematocrit (test code = 44.6 % 34.1-44.9 4544-3) MCV (test code = 787-2) 80.9 fL 79.4-94.8 MCH (test code = 785-6) 27.9 pg 25.6-32.2 RDW (test code = 788-0) 13.9 % 11.7-14.4 Platelets (test code = 222 See_Comment [Aut omated message] 777-3) The system [employer] generated this result transmitted ref erence range: 150 - 45 0 K/CU MM. The referen ce range was not u sed to interpret this result as normal/abnor mal. MPV (test code = 11.3 fL 9.4-12.3 17501-0) nRBC (test code = 413) 0 See_Comment [Aut omated message] The system [employer] generated this result transmitted ref erence range: 0 - 0 /1 00 WBC. The refere nce range was not u sed to interpret this result as normal/abnor mal. % Neutros (test code = 72 % 429) % Lymphs (test code = 18 % 430) % Monos (test code = 8 % 431) % Eos (test code = 432) 0 % % Baso (test code = 437) 0 % # Neutros (test code = 7.89 See_Comment H [Aut omated message] 670) The system [employer] generated this result transmitted ref erence range: 1.56 - 6 .13 K/L. The refe rence range was not u sed to interpret this result as normal/abnor mal. # Lymphs (test code = 1.94 See_Comment [Auto mated message] 414) The system [employer] generated this result transmitted ref erence range: 1.18 - 3 .74 K/L. The refe rence range was not u sed to interpret this result as normal/abnor mal. # Monos (test code = 0.86 See_Comment H [Autom ated message] 415) The system [employer] generated this result transmitted ref erence range: 0.24 - 0 .36 K/L. The refe rence range was not u sed to interpret this result as normal/abnor mal. # Eos (test code = 416) 0.04 See_Comment [Au tomated message] The system [employer] generated this result transmitted ref erence range: 0.04 - 0 .36 K/L. The refe rence range was not u sed to interpret this result as normal/abnor mal. # Baso (test code = 417) 0.03 See_Comment [A utomated message] The system [employer] generated this result transmitted ref erence range: 0.01 - 0 .08 K/L. The refe rence range was not u sed to interpret this result as normal/abnor mal. Immature 2 % 0-1 H Granulocytes-Relative (test code = 2801) Lab Interpretation (test Abnormal code = 05442-5) [facility] with platelet count + automated [id number] 06:08:00 Test Item Value Reference Range Interpretation Comments WBC (test code = 6690-2) 11.0 See_Comment H [A utomated message] The system [employer] generated this result transmitted ref erence range: 3.5 - 10 .5 K/L. The refe rence range was not u sed to interpret this result as normal/abnor mal. RBC (test code = 789-8) 5.51 See_Comment H [Au tomated message] The system [employer] generated this result transmitted ref erence range: 3.93 - 5 .22 M/L. The refe rence range was not u sed to interpret this result as normal/abnor mal. MCHC (test code = 786-4) 34.5 See_Comment [A utomated message] The system [employer] generated this result transmitted ref erence range: 32.2 - 3 5.5 GM/DL. The refe rence range was not u sed to interpret this result as normal/abnor mal. Hematocrit (test code = 44.6 % 34.1-44.9 4544-3) MCV (test code = 787-2) 80.9 fL 79.4-94.8 MCH (test code = 785-6) 27.9 pg 25.6-32.2 RDW (test code = 788-0) 13.9 % 11.7-14.4 Platelets (test code = 222 See_Comment [Aut omated message] 777-3) The system [employer] generated this result transmitted ref erence range: 150 - 45 0 K/CU MM. The referen ce range was not u sed to interpret this result as normal/abnor mal. MPV (test code = 11.3 fL 9.4-12.3 53390-7) nRBC (test code = 413) 0 See_Comment [Aut omated message] The system [employer] generated this result transmitted ref erence range: 0 - 0 /1 00 WBC. The refere nce range was not u sed to interpret this result as normal/abnor mal. % Neutros (test code = 72 % 429) % Lymphs (test code = 18 % 430) % Monos (test code = 8 % 431) % Eos (test code = 432) 0 % % Baso (test code = 437) 0 % # Neutros (test code = 7.89 See_Comment H [Aut omated message] 670) The system [employer] generated this result transmitted ref erence range: 1.56 - 6 .13 K/L. The refe rence range was not u sed to interpret this result as normal/abnor mal. # Lymphs (test code = 1.94 See_Comment [Auto mated message] 414) The system [employer] generated this result transmitted ref erence range: 1.18 - 3 .74 K/L. The refe rence range was not u sed to interpret this result as normal/abnor mal. # Monos (test code = 0.86 See_Comment H [Autom ated message] 415) The system [employer] generated this result transmitted ref erence range: 0.24 - 0 .36 K/L. The refe rence range was not u sed to interpret this result as normal/abnor mal. # Eos (test code = 416) 0.04 See_Comment [Au tomated message] The system [employer] generated this result transmitted ref erence range: 0.04 - 0 .36 K/L. The refe rence range was not u sed to interpret this result as normal/abnor mal. # Baso (test code = 417) 0.03 See_Comment [A utomated message] The system [employer] generated this result transmitted ref erence range: 0.01 - 0 .08 K/L. The refe rence range was not u sed to interpret this result as normal/abnor mal. Immature 2 % 0-1 H Granulocytes-Relative (test code = 2801) Lab Interpretation (test Abnormal code = 64355-5) [facility] W/PLT COUNT & AUTO [id number] 06:08:00 Test Item Value Reference Range Interpretation Comments WHITE BLOOD CELL COUNT (BEAKER) 11.0 K/ L 3.5-10.5 H (test code = 775) RED BLOOD CELL COUNT (BEAKER) 5.51 M/ L 3.93-5.22 H (test code = 761) HEMOGLOBIN (BEAKER) (test code = 15.4 GM/DL 11.2-15.7 410) HEMATOCRIT (BEAKER) (test code = 44.6 % 34.1-44.9 411) MEAN CORPUSCULAR VOLUME (BEAKER) 80.9 fL 79.4-94.8 (test code = 753) MEAN CORPUSCULAR HEMOGLOBIN 27.9 pg 25.6-32.2 (BEAKER) (test code = 751) MEAN CORPUSCULAR HEMOGLOBIN CONC 34.5 GM/DL 32.2-35.5 (BEAKER) (test code = 752) RED CELL DISTRIBUTION WIDTH 13.9 % 11.7-14.4 (BEAKER) (test code = 412) PLATELET COUNT (BEAKER) (test 222 K/CU MM 150-450 code = 756) MEAN PLATELET VOLUME (BEAKER) 11.3 fL 9.4-12.3 (test code = 754) NUCLEATED RED BLOOD CELLS 0 /100 WBC 0-0 (BEAKER) (test code = 413) NEUTROPHILS RELATIVE PERCENT 72 % (BEAKER) (test code = 429) LYMPHOCYTES RELATIVE PERCENT 18 % (BEAKER) (test code = 430) MONOCYTES RELATIVE PERCENT 8 % (BEAKER) (test code = 431) EOSINOPHILS RELATIVE PERCENT 0 % (BEAKER) (test code = 432) BASOPHILS RELATIVE PERCENT 0 % (BEAKER) (test code = 437) NEUTROPHILS ABSOLUTE COUNT 7.89 K/ L 1.56-6.13 H (BEAKER) (test code = 670) LYMPHOCYTES ABSOLUTE COUNT 1.94 K/ L 1.18-3.74 (BEAKER) (test code = 414) MONOCYTES ABSOLUTE COUNT (BEAKER) 0.86 K/ L 0.24-0.36 H (test code = 415) EOSINOPHILS ABSOLUTE COUNT 0.04 K/ L 0.04-0.36 (BEAKER) (test code = 416) BASOPHILS ABSOLUTE COUNT (BEAKER) 0.03 K/ L 0.01-0.08 (test code = 417) IMMATURE GRANULOCYTES-RELATIVE 2 % 0-1 H PERCENT (BEAKER) (test code = 2801) POCT-GLUCOSE [id number] 20:35:00 Test Item Value Reference Range Interpretation Comments POC-GLUCOSE METER 263 mg/dL 70-110 H : TESTED A T [facility] 6720 (BEAKER) (test code = [facility] [place], 1538) [address]: Shipyard Helper/Techni melissa ID = [id number] for Ra scott (contract), [place] POCT-GLUCOSE [id number] 17:11:00 Test Item Value Reference Range Interpretation Comments POC-GLUCOSE METER 294 mg/dL 70-110 H : TESTED A T [facility] 6720 (BEAKER) (test code = [facility], 1538) 65[address]: Shipyard Helper/Techni melissa ID = [id number] for Kh an (contract), Nos haba POCT-GLUCOSE [id number] 12:30:00 Test Item Value Reference Range Interpretation Comments POC-GLUCOSE METER 265 mg/dL 70-110 H : TESTED A T [facility] 6720 (BEAKER) (test code = [facility], 1538) 46[address]: Shipyard Helper/Techni melissa ID = [id number] for Kh an (contract), Nos haba POCT-GLUCOSE [id number] 08:58:00 Test Item Value Reference Range Interpretation Comments POC-GLUCOSE METER 117 mg/dL 70-110 H : TESTED A T [facility] 6720 (BEAKER) (test code = [facility], 1538) [address]: Shipyard Helper/Techni melissa ID = [id number] for Kh an (contract), Nos haba [id number] 05:08:00 Test Item Value Reference Range Interpretation Comments FERRITIN (BEAKER) (test code = 1240.87 ng/mL 5.00-275.00 H 361) Shipyard Helper ID - MARCELINO MLACTATE DEHYDROGENASE (LDH)2021-01-16 04:56:00 Test Item Value Reference Range Interpretation Comments LACTATE DEHYDROGENASE 284 U/L 125-220 H Specim en slightly (BEAKER) (test code = hemoly zed 635) Shipyard Helper ID - MARCELINO MCOMPREHENSIVE METABOLIC [id number] 04:51:00 Test Item Value Reference Range Interpretation Comments TOTAL PROTEIN 8.3 gm/dL 6.0-8.3 Specimen sligh tly (BEAKER) (test code = hemoly zed 770) ALBUMIN (BEAKER) 3.6 g/dL 3.5-5.0 Specimen sl ightly (test code = 1145) hemolyzed ALKALINE PHOSPHATASE 69 U/L 40-150 (BEAKER) (test code = 346) BILIRUBIN TOTAL 1.1 mg/dL 0.2-1.2 Specimen sli ghtly (BEAKER) (test code = hemoly zed 377) SODIUM (BEAKER) (test 132 meq/L 136-145 L code = 381) POTASSIUM (BEAKER) 4.8 meq/L 3.5-5.1 Specimen slightly (test code = 379) hemolyzed CHLORIDE (BEAKER) 95 meq/L 98-107 L (test code = 382) CO2 (BEAKER) (test 27 meq/L 22-29 code = 355) BLOOD UREA NITROGEN 21 mg/dL 7-21 (BEAKER) (test code = 354) CREATININE (BEAKER) 0.76 mg/dL 0.57-1.25 Specimen slightly (test code = 358) hemolyzed GLUCOSE RANDOM 134 mg/dL 70-105 H (BEAKER) (test code = 652) CALCIUM (BEAKER) 9.0 mg/dL 8.4-10.2 (test code = 697) AST (SGOT) (BEAKER) 19 U/L 5-34 Specimen slightly (test code = 353) hemolyzed ALT (SGPT) (BEAKER) 13 U/L 6-55 Specimen slightly (test code = 347) hemolyzed EGFR (BEAKER) (test 78 mL/min/1.73 ESTIMA CHRISTOPHER GFR IS code = 1092) sq m NOT ACCURATE CREATININE CLEARANCE IN PREDICTING GLOMERULAR FILTRATION RATE . ESTIMATED GFR I S NOT APPLICABLE FOR DIALYSIS PATIEN TS. Shipyard Helper ID - MARCELINO MC-REACTIVE [id number] 04:51:00 Test Item Value Reference Range Interpretation Comments C-REACTIVE PROTEIN (BEAKER) (test 0.22 mg/dL 0.00-0.50 code = 676) Shipyard Helper ID - MARCELINO [id number] 04:41:00 Test Item Value Reference Range Interpretation Comments D-DIMER QUANTITATIVE (BEAKER) 1.55 MG/L FEU <0.50 H (test code = 671) Intended Use: The D-Dimer Assay can be used to aid in the diagnosis of Deep Vein Thrombosis (DVT) and Pulmonary Embolism Disease (PED).In patients with low pre- test probability, various studies concerning STA Liatest D-dimer test have reported that with a cutoff value of 0.50 MG/L FEU, the Negative Predictive Value (NPV) regarding the exclusion of thrombosis is within 95-100% range. PROTHROMBIN TIME/[id number] 04:38:00 Test Item Value Reference Range Interpretation Comments PROTIME (BEAKER) 15.5 seconds 11.9-14.2 H (test code = 759) INR (BEAKER) (test 1.28 See_Comment [Automat ed message] code = 370) The system [employer] generated this result transmitted ref erence range: [...] mechanical heart valves.CBC W/PLT COUNT & AUTO [id number] 04:33:00 Test Item Value Reference Range Interpretation Comments WHITE BLOOD CELL COUNT (BEAKER) 9.1 K/ L 3.5-10.5 (test code = 775) RED BLOOD CELL COUNT (BEAKER) 5.24 M/ L 3.93-5.22 H (test code = 761) HEMOGLOBIN (BEAKER) (test code = 14.4 GM/DL 11.2-15.7 410) HEMATOCRIT (BEAKER) (test code = 42.5 % 34.1-44.9 411) MEAN CORPUSCULAR VOLUME (BEAKER) 81.1 fL 79.4-94.8 (test code = 753) MEAN CORPUSCULAR HEMOGLOBIN 27.5 pg 25.6-32.2 (BEAKER) (test code = 751) MEAN CORPUSCULAR HEMOGLOBIN CONC 33.9 GM/DL 32.2-35.5 (BEAKER) (test code = 752) RED CELL DISTRIBUTION WIDTH 13.7 % 11.7-14.4 (BEAKER) (test code = 412) PLATELET COUNT (BEAKER) (test 192 K/CU MM 150-450 code = 756) MEAN PLATELET VOLUME (BEAKER) 10.7 fL 9.4-12.3 (test code = 754) NUCLEATED RED BLOOD CELLS 0 /100 WBC 0-0 (BEAKER) (test code = 413) NEUTROPHILS RELATIVE PERCENT 72 % (BEAKER) (test code = 429) LYMPHOCYTES RELATIVE PERCENT 18 % (BEAKER) (test code = 430) MONOCYTES RELATIVE PERCENT 8 % (BEAKER) (test code = 431) EOSINOPHILS RELATIVE PERCENT 0 % (BEAKER) (test code = 432) BASOPHILS RELATIVE PERCENT 0 % (BEAKER) (test code = 437) NEUTROPHILS ABSOLUTE COUNT 6.55 K/ L 1.56-6.13 H (BEAKER) (test code = 670) LYMPHOCYTES ABSOLUTE COUNT 1.64 K/ L 1.18-3.74 (BEAKER) (test code = 414) MONOCYTES ABSOLUTE COUNT (BEAKER) 0.73 K/ L 0.24-0.36 H (test code = 415) EOSINOPHILS ABSOLUTE COUNT 0.01 K/ L 0.04-0.36 L (BEAKER) (test code = 416) BASOPHILS ABSOLUTE COUNT (BEAKER) 0.01 K/ L 0.01-0.08 (test code = 417) IMMATURE GRANULOCYTES-RELATIVE 2 % 0-1 H PERCENT (BEAKER) (test code = 2801) POCT-GLUCOSE [id number] 16:57:00 Test Item Value Reference Range Interpretation Comments POC-GLUCOSE METER 241 mg/dL 70-110 H : TESTED A T [facility] 6720 (BEAKER) (test code = [facility] [place], 1538) [address]: Shipyard Helper/Techni melissa ID = [id number] for Poonam an (contract), Nos haba Blood Culture # 16:00:00 Test Item Value Reference Range Interpretation Comments Result (test code = No growth in 5 days 6463-4) [facility] Test Item Value Reference Range Interpretation Comments Result (test code = No growth in 5 days 6463-4) [facility] Culture # 16:00:00 Test Item Value Reference Range Interpretation Comments Result (test code = No growth in 5 days 6463-4) [facility] Culture # 16:00:00 Test Item Value Reference Range Interpretation Comments Result (test code = No growth in 5 days 6463-4) [facility] [id number] 16:00:00 Test Item Value Reference Range Interpretation Comments CULTURE (BEAKER) (test No growth in 5 days code = 1095) BLOOD [id number] 16:00:00 Test Item Value Reference Range Interpretation Comments CULTURE (BEAKER) (test No growth in 5 days code = 1095) POCT-GLUCOSE [id number] 12:30:00 Test Item Value Reference Range Interpretation Comments POC-GLUCOSE METER 247 mg/dL 70-110 H : TESTED A T [facility] 6720 (SERGIO) (test code = SRAVANI Manriquez [facility], 1538) 47[address]: Shipyard Helper/Techni melissa ID = [id number] for Poonam luis (contract), Nos haba POCT-GLUCOSE [id number] 08:41:00 Test Item Value Reference Range Interpretation Comments POC-GLUCOSE METER 123 mg/dL 70-110 H : TESTED A T [facility] 6720 (SERGIO) (test code = SRAVANI Manriquez [facility], 1538) 16498: Shipyard Helper/Techni melissa ID = [id number] for Poonam luis (contract), Nos haba Basic Metabolic [id number] 06:36:00 Test Item Value Reference Range Interpretation Comments Sodium (test code = 133 meq/L 136-145 L 2951-2) Potassium (test code = 4.8 meq/L 3.5-5.1 Speci men slightly 2823-3) hemolyzed Chloride (test code = 98 meq/L 98-107 2075-0) CO2 (test code = 26 meq/L 22-29 2028-9) BUN (test code = 22 mg/dL 7-21 H 3094-0) Creatinine (test code 0.75 mg/dL 0.57-1.25 Specim en slightly = 2160-0) hemolyzed Glucose (test code = 133 mg/dL 70-105 H 2345-7) Calcium (test code = 9.2 mg/dL 8.4-10.2 31742-4) EGFR (test code = 80 mL/min/1.73 [place] [address]-8) NOT ACCURATE CREATININE CLEARANCE IN PREDICTING GLOMERULAR FILTRATION RATE . ESTIMATED GFR I S NOT APPLICABLE FOR DIALYSIS PATIENTS. JENNIFER (test code = JENNIFER) Shipyard Helper ID - YULIA Hickman Lab Interpretation Abnormal (test code = 88458-1) [facility] [id number] 06:36:00 Test Item Value Reference Range Interpretation Comments Protein, Total (test 8.4 See_Comment H Specime n slightly code = 2885-2) hemolyzed [Automated message] The system which generated this result transmit christopher reference range : 6.0 - 8.3 gm/dL . The reference range was not u sed to interpret th is result as normal/abnormal . Albumin (test code = 3.7 g/dL 3.5-5 Specime n slightly 17409-2) hemolyzed Total Bilirubin (test 1.1 mg/dL 0.2-1.2 Specim en slightly code = 1974-2) hemolyzed Bilirubin, Direct 0.4 mg/dL 0.1-0.5 Specimen s lightly (test code = 1967-7) hemolyz ed Alkaline Phosphatase 69 U/L 40-150 (test code = 6768-6) AST (test code = 17 U/L 5-34 Specimen sl ightly 1920-8) hemolyzed ALT (test code = 13 U/L 6-55 Specimen sl ightly 1742-6) hemolyzed JENNIFER (test code = JENNIFER) Shipyard Helper ID - PIAYA L Lab Interpretation Abnormal (test code = 84133-0) [facility] 06:36:00 Test Item Value Reference Range Interpretation Comments Magnesium (test code = 2.1 mg/dL 1.6-2.6 Speci men 42115-6) slightly hemolyzed JENNIFER (test code = JENNIFER) Shipyard Helper ID - PIAYA L Lab Interpretation Normal (test code = 88453-9) [facility] [id number] 06:36:00 Test Item Value Reference Range Interpretation Comments Sodium (test code = 133 meq/L 136-145 L 2951-2) Potassium (test code = 4.8 meq/L 3.5-5.1 Speci men slightly 2823-3) hemolyzed Chloride (test code = 98 meq/L 98-107 5-0) CO2 (test code = 26 meq/L 22-29 2027-9) BUN (test code = 22 mg/dL 7-21 H 3094-0) Creatinine (test code 0.75 mg/dL 0.57-1.25 Specim en slightly = 2160-0) hemolyzed Glucose (test code = 133 mg/dL 70-105 H 2345-7) Calcium (test code = 9.2 mg/dL 8.4-10.2 52229-3) EGFR (test code = 80 mL/min/1.73 [place] [address]-1) NOT ACCURATE CREATININE CLEARANCE IN PREDICTING GLOMERULAR FILTRATION RATE . ESTIMATED GFR I S NOT APPLICABLE FOR DIALYSIS PATIENTS. JENNIFER (test code = JENNIFER) Shipyard Helper ID - PIAYA L Lab Interpretation Abnormal (test code = 62824-7) [facility] [id number] 06:36:00 Test Item Value Reference Range Interpretation Comments Protein, Total (test 8.4 See_Comment H Specime n slightly code = 2885-2) hemolyzed [Automated message] The system which generated this result transmit christopher reference range : 6.0 - 8.3 gm/dL . The reference range was not u sed to interpret th is result as normal/abnormal . Albumin (test code = 3.7 g/dL 3.5-5 Specime n slightly 63175-0) hemolyzed Total Bilirubin (test 1.1 mg/dL 0.2-1.2 Specim en slightly code = 1975-2) hemolyzed Bilirubin, Direct 0.4 mg/dL 0.1-0.5 Specimen s lightly (test code = 1968-7) hemolyz ed Alkaline Phosphatase 69 U/L 40-150 (test code = 6768-6) AST (test code = 17 U/L 5-34 Specimen sl ightly 1920-8) hemolyzed ALT (test code = 13 U/L 6-55 Specimen sl ightly 1742-6) hemolyzed JENNIFER (test code = JENNIFER) Shipyard Helper ID - PIAYA L Lab Interpretation Abnormal (test code = 99373-9) [facility] 06:36:00 Test Item Value Reference Range Interpretation Comments Magnesium (test code = 2.1 mg/dL 1.6-2.6 Speci men 75267-1) slightly hemolyzed JENNIFER (test code = JENNIFER) Shipyard Helper ID - PIAYA L Lab Interpretation Normal (test code = 10926-7) [facility] 06:36:00 Test Item Value Reference Range Interpretation Comments Magnesium (test code = 2.1 mg/dL 1.6-2.6 Speci men 89677-1) slightly hemolyzed JENNIFER (test code = JENNIFER) Shipyard Helper ID - PIAYA L Lab Interpretation Normal (test code = 48048-6) [facility] 06:36:00 Test Item Value Reference Range Interpretation Comments Magnesium (test code = 2.1 mg/dL 1.6-2.6 Speci men 78745-8) slightly hemolyzed JENNIFER (test code = JENNIFER) Shipyard Helper ID - YULIA L Lab Interpretation Normal (test code = 83376-0) [facility]21-[facility]-07 06:36:00 Test Item Value Reference Range Interpretation Comments MAGNESIUM (BEAKER) 2.1 mg/dL 1.6-2.6 Specimen slightly (test code = 627) hemolyzed Shipyard Helper ID - YULIA LBASIC METABOLIC [id number] 06:36:00 Test Item Value Reference Range Interpretation Comments SODIUM (BEAKER) 133 meq/L 136-145 L (test code = 381) POTASSIUM (BEAKER) 4.8 meq/L 3.5-5.1 Specimen slightly (test code = 379) hemolyzed CHLORIDE (BEAKER) 98 meq/L 98-107 (test code = 382) CO2 (BEAKER) (test 26 meq/L 22-29 code = 355) BLOOD UREA NITROGEN 22 mg/dL 7-21 H (BEAKER) (test code = 354) CREATININE (BEAKER) 0.75 mg/dL 0.57-1.25 Specimen slightly (test code = 358) hemolyzed GLUCOSE RANDOM 133 mg/dL 70-105 H (BEAKER) (test code = 652) CALCIUM (BEAKER) 9.2 mg/dL 8.4-10.2 (test code = 697) EGFR (BEAKER) (test 80 mL/min/1.73 ESTIMA CHRISTOPHER GFR IS code = 1092) sq m NOT ACCURATE CREATININE CLEARANCE IN PREDICTING GLOMERULAR FILTRATION RATE . ESTIMATED GFR I S NOT APPLICABLE FOR DIALYSIS PATIEN TS. Shipyard Helper ID - YULIA LHEPATIC FUNCTION [id number] 06:36:00 Test Item Value Reference Range Interpretation Comments TOTAL PROTEIN (BEAKER) 8.4 gm/dL 6.0-8.3 H Speci men slightly (test code = 770) hemolyzed ALBUMIN (BEAKER) (test 3.7 g/dL 3.5-5.0 Speci men slightly code = 1145) hemolyzed BILIRUBIN TOTAL 1.1 mg/dL 0.2-1.2 Specimen sli ghtly (BEAKER) (test code = hemoly zed 377) BILIRUBIN DIRECT 0.4 mg/dL 0.1-0.5 Specimen sl ightly (BEAKER) (test code = hemoly zed 706) ALKALINE PHOSPHATASE 69 U/L 40-150 (BEAKER) (test code = 346) AST (SGOT) (BEAKER) 17 U/L 5-34 Specimen slightly (test code = 353) hemolyzed ALT (SGPT) (BEAKER) 13 U/L 6-55 Specimen slightly (test code = 347) hemolyzed Shipyard Helper ID - PIAYA LCBC W/PLT COUNT & AUTO [id number] 04:54:00 Test Item Value Reference Range Interpretation Comments WHITE BLOOD CELL COUNT (BEAKER) 7.6 K/ L 3.5-10.5 (test code = 775) RED BLOOD CELL COUNT (BEAKER) 5.10 M/ L 3.93-5.22 (test code = 761) HEMOGLOBIN (BEAKER) (test code = 14.0 GM/DL 11.2-15.7 410) HEMATOCRIT (BEAKER) (test code = 42.4 % 34.1-44.9 411) MEAN CORPUSCULAR VOLUME (BEAKER) 83.1 fL 79.4-94.8 (test code = 753) MEAN CORPUSCULAR HEMOGLOBIN 27.5 pg 25.6-32.2 (BEAKER) (test code = 751) MEAN CORPUSCULAR HEMOGLOBIN CONC 33.0 GM/DL 32.2-35.5 (BEAKER) (test code = 752) RED CELL DISTRIBUTION WIDTH 13.9 % 11.7-14.4 (BEAKER) (test code = 412) PLATELET COUNT (BEAKER) (test 180 K/CU MM 150-450 code = 756) MEAN PLATELET VOLUME (BEAKER) 11.0 fL 9.4-12.3 (test code = 754) NUCLEATED RED BLOOD CELLS 0 /100 WBC 0-0 (BEAKER) (test code = 413) NEUTROPHILS RELATIVE PERCENT 73 % (BEAKER) (test code = 429) LYMPHOCYTES RELATIVE PERCENT 17 % (BEAKER) (test code = 430) MONOCYTES RELATIVE PERCENT 9 % (BEAKER) (test code = 431) EOSINOPHILS RELATIVE PERCENT 0 % (BEAKER) (test code = 432) BASOPHILS RELATIVE PERCENT 0 % (BEAKER) (test code = 437) NEUTROPHILS ABSOLUTE COUNT 5.50 K/ L 1.56-6.13 (BEAKER) (test code = 670) LYMPHOCYTES ABSOLUTE COUNT 1.31 K/ L 1.18-3.74 (BEAKER) (test code = 414) MONOCYTES ABSOLUTE COUNT (BEAKER) 0.64 K/ L 0.24-0.36 H (test code = 415) EOSINOPHILS ABSOLUTE COUNT 0.01 K/ L 0.04-0.36 L (BEAKER) (test code = 416) BASOPHILS ABSOLUTE COUNT (BEAKER) 0.01 K/ L 0.01-0.08 (test code = 417) IMMATURE GRANULOCYTES-RELATIVE 1 % 0-1 PERCENT (BEAKER) (test code = 2801) POCT-GLUCOSE [id number] 16:19:00 Test Item Value Reference Range Interpretation Comments POC-GLUCOSE METER 266 mg/dL 70-110 H : TESTED A T [facility] 6720 (BEAKER) (test code = [facility], 153) [address]: Shipyard Helper/Techni melissa ID = [id number] for Wi lliams (contract), olg a POCT-GLUCOSE [id number] 12:15:00 Test Item Value Reference Range Interpretation Comments POC-GLUCOSE METER 187 mg/dL 70-110 H : TESTED A T [facility] 6720 (BEAKER) (test code = [facility], 1538) 53[address]: Shipyard Helper/Techni melissa ID = [id number] for Wi lliams (contract), olg a POCT-GLUCOSE [id number] 08:13:00 Test Item Value Reference Range Interpretation Comments POC-GLUCOSE METER 146 mg/dL 70-110 H : TESTED A T [facility] 6720 (BEAKER) (test code = [facility], 1538) [address]: Shipyard Helper/Techni melissa ID = [id number] for George flores (contract), Reggie sharma BASIC METABOLIC [id number] 04:51:00 Test Item Value Reference Range Interpretation Comments SODIUM (BEAKER) 134 meq/L 136-145 L (test code = 381) POTASSIUM (BEAKER) 4.5 meq/L 3.5-5.1 (test code = 379) CHLORIDE (BEAKER) 100 meq/L 98-107 (test code = 382) CO2 (BEAKER) (test 26 meq/L 22-29 code = 355) BLOOD UREA NITROGEN 20 mg/dL 7-21 (BEAKER) (test code = 354) CREATININE (BEAKER) 0.76 mg/dL 0.57-1.25 (test code = 358) GLUCOSE RANDOM 139 mg/dL 70-105 H (BEAKER) (test code = 652) CALCIUM (BEAKER) 8.8 mg/dL 8.4-10.2 (test code = 697) EGFR (BEAKER) (test 78 mL/min/1.73 ESTIMA CHRISTOPHER GFR IS code = 1092) sq m NOT ACCURATE CREATININE CLEARANCE IN PREDICTING GLOMERULAR FILTRATION RATE . ESTIMATED GFR I S NOT APPLICABLE FOR DIALYSIS PATIEN TS. Shipyard Helper ID - EDASIHEPATIC FUNCTION [id number] 04:51:00 Test Item Value Reference Range Interpretation Comments TOTAL PROTEIN (BEAKER) (test code = 7.7 gm/dL 6.0-8.3 770) ALBUMIN (BEAKER) (test code = 1145) 3.5 g/dL 3.5-5.0 BILIRUBIN TOTAL (BEAKER) (test code 0.8 mg/dL 0.2-1.2 = 377) BILIRUBIN DIRECT (BEAKER) (test 0.4 mg/dL 0.1-0.5 code = 706) ALKALINE PHOSPHATASE (BEAKER) (test 68 U/L 40-150 code = 346) AST (SGOT) (BEAKER) (test code = 14 U/L 5-34 353) ALT (SGPT) (BEAKER) (test code = 9 U/L 6-55 347) Shipyard Helper ID - EDASICBC W/PLT COUNT & AUTO [id number] 04:25:00 Test Item Value Reference Range Interpretation Comments WHITE BLOOD CELL COUNT (BEAKER) 5.5 K/ L 3.5-10.5 (test code = 775) RED BLOOD CELL COUNT (BEAKER) 4.81 M/ L 3.93-5.22 (test code = 761) HEMOGLOBIN (BEAKER) (test code = 13.3 GM/DL 11.2-15.7 410) HEMATOCRIT (BEAKER) (test code = 39.9 % 34.1-44.9 411) MEAN CORPUSCULAR VOLUME (BEAKER) 83.0 fL 79.4-94.8 (test code = 753) MEAN CORPUSCULAR HEMOGLOBIN 27.7 pg 25.6-32.2 (BEAKER) (test code = 751) MEAN CORPUSCULAR HEMOGLOBIN CONC 33.3 GM/DL 32.2-35.5 (BEAKER) (test code = 752) RED CELL DISTRIBUTION WIDTH 14.0 % 11.7-14.4 (BEAKER) (test code = 412) PLATELET COUNT (BEAKER) (test 133 K/CU MM 150-450 L code = 756) MEAN PLATELET VOLUME (BEAKER) 11.1 fL 9.4-12.3 (test code = 754) NUCLEATED RED BLOOD CELLS 0 /100 WBC 0-0 (BEAKER) (test code = 413) NEUTROPHILS RELATIVE PERCENT 74 % (BEAKER) (test code = 429) LYMPHOCYTES RELATIVE PERCENT 18 % (BEAKER) (test code = 430) MONOCYTES RELATIVE PERCENT 8 % (BEAKER) (test code = 431) EOSINOPHILS RELATIVE PERCENT 0 % (BEAKER) (test code = 432) BASOPHILS RELATIVE PERCENT 0 % (BEAKER) (test code = 437) NEUTROPHILS ABSOLUTE COUNT 4.08 K/ L 1.56-6.13 (BEAKER) (test code = 670) LYMPHOCYTES ABSOLUTE COUNT 0.98 K/ L 1.18-3.74 L (BEAKER) (test code = 414) MONOCYTES ABSOLUTE COUNT (BEAKER) 0.42 K/ L 0.24-0.36 H (test code = 415) EOSINOPHILS ABSOLUTE COUNT 0.00 K/ L 0.04-0.36 L (BEAKER) (test code = 416) BASOPHILS ABSOLUTE COUNT (BEAKER) 0.00 K/ L 0.01-0.08 L (test code = 417) IMMATURE GRANULOCYTES-RELATIVE 1 % 0-1 PERCENT (BEAKER) (test code = 2801) POCT-GLUCOSE [id number] 21:23:00 Test Item Value Reference Range Interpretation Comments POC-GLUCOSE METER 234 mg/dL 70-110 H : Notified RN/MD: ([facility]) (test code = TESTED AT [facility] 3182 9896) [facility], [address]: Shipyard Helper/Techni melissa ID = [id number] for Ro gel (contract), Du ie POCT-GLUCOSE [id number] 17:28:00 Test Item Value Reference Range Interpretation Comments POC-GLUCOSE METER 204 mg/dL 70-110 H : TESTED A T [facility] 6720 (BEAKER) (test code = [facility], 1538) [address]: Shipyard Helper/Techni melissa ID = [id number] for Kh an (contract), Nos haba POCT-GLUCOSE [id number] 11:38:00 Test Item Value Reference Range Interpretation Comments POC-GLUCOSE METER 201 mg/dL 70-110 H : TESTED A T [facility] 6720 (BEAKER) (test code = [facility] R [place], 1538) [address]: Shipyard Helper/Techni melissa ID = [id number] for Wi lliams (contract), olg a POCT-GLUCOSE [id number] 07:45:00 Test Item Value Reference Range Interpretation Comments POC-GLUCOSE METER 180 mg/dL 70-110 H : TESTED A T [facility] 6720 (BEAKER) (test code = [facility] R [facility], 1538) [address]: Shipyard Helper/Techni melissa ID = [id number] for Wi lliams (contract), olg a ECG 12 [id number] 06:33:21Interface, External Ris In - 01/13/2021 6:33 AM CDTVentricular Rate 83 BPMAtrial Rate 83 BPMP-R Interval 138 msQRS Duration 78 msQ-T Interval 394 msQTC Calculation(Bazett) 462 msP [place] 20 degreesR [place] 84 degreesT [place] 52 degreesNormal sinus rhythmNormal ECGWhen compared with ECG of 10-APR-2019 22:09,No significant change was foundConfirmed by MD MANSI, NARENDRA Dodd ([id number]) on 01/13/2021 6:33:18 [facility] 2021-01-13 06:33:21Interface, External Ris In 01/13/2021 6:33 AM CDTVentricular Rate 83 BPMAtrial Rate 83 BPMP-R Interval 138 msQRS Duration 78 msQ-T Interval 394 msQTC Calculation(Bazett) 462 msP [place] 20 degreesR [place] 84 degreesT [place] 52 degreesNormal sinus rhythmNormal ECGWhen compared with ECG of 10-APR-2019 22:09,No significant change was foundConfirmed by MD MANSI, NARENDRA Dodd ([id number]) on 01/13/2021 6:33:18 [facility] [id number] 06:11:00 Test Item Value Reference Range Interpretation Comments SODIUM (BEAKER) 134 meq/L 136-145 L (test code = 381) POTASSIUM (BEAKER) 4.3 meq/L 3.5-5.1 Specimen slightly (test code = 379) hemolyzed CHLORIDE (BEAKER) 99 meq/L 98-107 (test code = 382) CO2 (BEAKER) (test 27 meq/L 22-29 code = 355) BLOOD UREA NITROGEN 20 mg/dL 7-21 (BEAKER) (test code = 354) CREATININE (BEAKER) 0.67 mg/dL 0.57-1.25 Specimen slightly (test code = 358) hemolyzed GLUCOSE RANDOM 159 mg/dL 70-105 H (BEAKER) (test code = 652) CALCIUM (BEAKER) 8.5 mg/dL 8.4-10.2 (test code = 697) EGFR (BEAKER) (test 91 mL/min/1.73 ESTIMA CHRISTOPHER GFR IS code = 1092) sq m NOT ACCURATE CREATININE CLEARANCE IN PREDICTING GLOMERULAR FILTRATION RATE . ESTIMATED GFR I S NOT APPLICABLE FOR DIALYSIS PATIEN TS. Shipyard Helper ID - EDASIHEPATIC FUNCTION [id number] 06:11:00 Test Item Value Reference Range Interpretation Comments TOTAL PROTEIN (BEAKER) 7.7 gm/dL 6.0-8.3 Speci men slightly (test code = 770) hemolyzed ALBUMIN (BEAKER) (test 3.5 g/dL 3.5-5.0 Speci men slightly code = 1145) hemolyzed BILIRUBIN TOTAL 1.1 mg/dL 0.2-1.2 Specimen sli ghtly (BEAKER) (test code = hemoly zed 377) BILIRUBIN DIRECT 0.5 mg/dL 0.1-0.5 Specimen sl ightly (BEAKER) (test code = hemoly zed 706) ALKALINE PHOSPHATASE 68 U/L 40-150 (BEAKER) (test code = 346) AST (SGOT) (BEAKER) 20 U/L 5-34 Specimen slightly (test code = 353) hemolyzed ALT (SGPT) (BEAKER) 12 U/L 6-55 Specimen slightly (test code = 347) hemolyzed Shipyard Helper ID - [id number] 04:41:00 Test Item Value Reference Range Interpretation Comments PARTIAL THROMBOPLASTIN TIME 83.0 seconds 22.5-36.0 H (BEAKER) (test code = 760) CBC W/PLT COUNT & AUTO [id number] 04:33:00 Test Item Value Reference Range Interpretation Comments WHITE BLOOD CELL COUNT (BEAKER) 7.2 K/ L 3.5-10.5 (test code = 775) RED BLOOD CELL COUNT (BEAKER) 4.70 M/ L 3.93-5.22 (test code = 761) HEMOGLOBIN (BEAKER) (test code = 13.0 GM/DL 11.2-15.7 410) HEMATOCRIT (BEAKER) (test code = 39.8 % 34.1-44.9 411) MEAN CORPUSCULAR VOLUME (BEAKER) 84.7 fL 79.4-94.8 (test code = 753) MEAN CORPUSCULAR HEMOGLOBIN 27.7 pg 25.6-32.2 (BEAKER) (test code = 751) MEAN CORPUSCULAR HEMOGLOBIN CONC 32.7 GM/DL 32.2-35.5 (BEAKER) (test code = 752) RED CELL DISTRIBUTION WIDTH 14.3 % 11.7-14.4 (BEAKER) (test code = 412) PLATELET COUNT (BEAKER) (test 143 K/CU MM 150-450 L code = 756) MEAN PLATELET VOLUME (BEAKER) 11.5 fL 9.4-12.3 (test code = 754) NUCLEATED RED BLOOD CELLS 0 /100 WBC 0-0 (BEAKER) (test code = 413) NEUTROPHILS RELATIVE PERCENT 80 % (BEAKER) (test code = 429) LYMPHOCYTES RELATIVE PERCENT 12 % (BEAKER) (test code = 430) MONOCYTES RELATIVE PERCENT 8 % (BEAKER) (test code = 431) EOSINOPHILS RELATIVE PERCENT 0 % (BEAKER) (test code = 432) BASOPHILS RELATIVE PERCENT 0 % (BEAKER) (test code = 437) NEUTROPHILS ABSOLUTE COUNT 5.75 K/ L 1.56-6.13 (BEAKER) (test code = 670) LYMPHOCYTES ABSOLUTE COUNT 0.85 K/ L 1.18-3.74 L (BEAKER) (test code = 414) MONOCYTES ABSOLUTE COUNT (BEAKER) 0.56 K/ L 0.24-0.36 H (test code = 415) EOSINOPHILS ABSOLUTE COUNT 0.00 K/ L 0.04-0.36 L (BEAKER) (test code = 416) BASOPHILS ABSOLUTE COUNT (BEAKER) 0.00 K/ L 0.01-0.08 L (test code = 417) IMMATURE GRANULOCYTES-RELATIVE 0 % 0-1 PERCENT (BEAKER) (test code = 2801) POCT-GLUCOSE [id number] 21:27:00 Test Item Value Reference Range Interpretation Comments POC-GLUCOSE METER 188 mg/dL 70-110 H : TESTED A T [facility] 6720 (BEAKER) (test code = [facility], 1538) 52227: Shipyard Helper/Techni melissa ID = [id number] for Ro mary (contract), Du ie POCT-GLUCOSE [id number] 17:27:00 Test Item Value Reference Range Interpretation Comments POC-GLUCOSE METER 227 mg/dL 70-110 H : TESTED A T [facility] 6720 (BEAKER) (test code = [facility], 1538) 53554: Shipyard Helper/Techni melissa ID = [id number] for Mi reles (contract), Chika doi-b POCT-GLUCOSE [id number] 12:15:00 Test Item Value Reference Range Interpretation Comments POC-GLUCOSE METER 178 mg/dL 70-110 H : TESTED A T [facility] 6720 (BEAKER) (test code = [facility], 1538) 76800: Shipyard Helper/Techni melissa ID = [id number] for Mi reles (contract), Chika doi-b Hemoglobin [id number] 09:50:00 Test Item Value Reference Range Interpretation Comments Hemoglobin A1C (test code = 4548-4) 7.2 % 4.3-6.1 H Lab Interpretation (test code = Abnormal 10014-9) [facility] [id number] 09:50:00 Test Item Value Reference Range Interpretation Comments Hemoglobin A1C (test code = 4548-4) 7.2 % 4.3-6.1 H Lab Interpretation (test code = Abnormal 20663-0) [facility] [id number] 09:50:00 Test Item Value Reference Range Interpretation Comments Hemoglobin A1C (test code = 4548-4) 7.2 % 4.3-6.1 H Lab Interpretation (test code = Abnormal 57501-6) [facility] [id number] 09:50:00 Test Item Value Reference Range Interpretation Comments Hemoglobin A1C (test code = 4548-4) 7.2 % 4.3-6.1 H Lab Interpretation (test code = Abnormal 81663-7) [facility] [id number] 09:50:00 Test Item Value Reference Range Interpretation Comments HEMOGLOBIN A1C (BEAKER) (test code = 7.2 % 4.3-6.1 H 368) POCT-GLUCOSE [id number] 09:06:00 Test Item Value Reference Range Interpretation Comments POC-GLUCOSE METER 129 mg/dL 70-110 H : TESTED A T [facility] 6720 (BEAKER) (test code = [facility], 1538) 20868: Shipyard Helper/Techni melissa ID = [id number] for Bernadine damicomanav (contract)Chika doi-b BASIC METABOLIC [id number] 05:46:00 Test Item Value Reference Range Interpretation Comments SODIUM (BEAKER) 136 meq/L 136-145 (test code = 381) POTASSIUM (BEAKER) 4.1 meq/L 3.5-5.1 Specimen slightly (test code = 379) hemolyzed CHLORIDE (BEAKER) 101 meq/L 98-107 (test code = 382) CO2 (BEAKER) (test 24 meq/L 22-29 code = 355) BLOOD UREA NITROGEN 23 mg/dL 7-21 H (BEAKER) (test code = 354) CREATININE (BEAKER) 0.70 mg/dL 0.57-1.25 Specimen slightly (test code = 358) hemolyzed GLUCOSE RANDOM 157 mg/dL 70-105 H (BEAKER) (test code = 652) CALCIUM (BEAKER) 8.9 mg/dL 8.4-10.2 (test code = 697) EGFR (BEAKER) (test 87 mL/min/1.73 ESTIMA CHRISTOPHER GFR IS code = 1092) sq m NOT ACCURATE CREATININE CLEARANCE IN PREDICTING GLOMERULAR FILTRATION RATE . ESTIMATED GFR I S NOT APPLICABLE FOR DIALYSIS PATIEN TS. Shipyard Helper ID - DBHEPATIC FUNCTION [id number] 05:46:00 Test Item Value Reference Range Interpretation Comments TOTAL PROTEIN (BEAKER) 8.2 gm/dL 6.0-8.3 Speci men slightly (test code = 770) hemolyzed ALBUMIN (BEAKER) (test 3.7 g/dL 3.5-5.0 Speci men slightly code = 1145) hemolyzed BILIRUBIN TOTAL 0.9 mg/dL 0.2-1.2 Specimen sli ghtly (BEAKER) (test code = hemoly zed 377) BILIRUBIN DIRECT 0.4 mg/dL 0.1-0.5 Specimen sl ightly (BEAKER) (test code = hemoly zed 706) ALKALINE PHOSPHATASE 76 U/L 40-150 (BEAKER) (test code = 346) AST (SGOT) (BEAKER) 19 U/L 5-34 Specimen slightly (test code = 353) hemolyzed ALT (SGPT) (BEAKER) 13 U/L 6-55 Specimen slightly (test code = 347) hemolyzed Shipyard Helper ID - DBCBC W/PLT COUNT & AUTO [id number] 05:24:00 Test Item Value Reference Range Interpretation Comments WHITE BLOOD CELL COUNT (BEAKER) 6.3 K/ L 3.5-10.5 (test code = 775) RED BLOOD CELL COUNT (BEAKER) 4.76 M/ L 3.93-5.22 (test code = 761) HEMOGLOBIN (BEAKER) (test code = 13.2 GM/DL 11.2-15.7 410) HEMATOCRIT (BEAKER) (test code = 40.6 % 34.1-44.9 411) MEAN CORPUSCULAR VOLUME (BEAKER) 85.3 fL 79.4-94.8 (test code = 753) MEAN CORPUSCULAR HEMOGLOBIN 27.7 pg 25.6-32.2 (BEAKER) (test code = 751) MEAN CORPUSCULAR HEMOGLOBIN CONC 32.5 GM/DL 32.2-35.5 (BEAKER) (test code = 752) RED CELL DISTRIBUTION WIDTH 14.5 % 11.7-14.4 H (BEAKER) (test code = 412) PLATELET COUNT (BEAKER) (test 111 K/CU MM 150-450 L code = 756) MEAN PLATELET VOLUME (BEAKER) 11.7 fL 9.4-12.3 (test code = 754) NUCLEATED RED BLOOD CELLS 0 /100 WBC 0-0 (BEAKER) (test code = 413) NEUTROPHILS RELATIVE PERCENT 81 % (BEAKER) (test code = 429) LYMPHOCYTES RELATIVE PERCENT 12 % (BEAKER) (test code = 430) MONOCYTES RELATIVE PERCENT 7 % (BEAKER) (test code = 431) EOSINOPHILS RELATIVE PERCENT 0 % (BEAKER) (test code = 432) BASOPHILS RELATIVE PERCENT 0 % (BEAKER) (test code = 437) NEUTROPHILS ABSOLUTE COUNT 5.10 K/ L 1.56-6.13 (BEAKER) (test code = 670) LYMPHOCYTES ABSOLUTE COUNT 0.75 K/ L 1.18-3.74 L (BEAKER) (test code = 414) MONOCYTES ABSOLUTE COUNT (BEAKER) 0.45 K/ L 0.24-0.36 H (test code = 415) EOSINOPHILS ABSOLUTE COUNT 0.00 K/ L 0.04-0.36 L (BEAKER) (test code = 416) BASOPHILS ABSOLUTE COUNT (BEAKER) 0.01 K/ L 0.01-0.08 (test code = 417) IMMATURE GRANULOCYTES-RELATIVE 0 % 0-1 PERCENT (BEAKER) (test code = 2801) [id number] 05:21:00 Test Item Value Reference Range Interpretation Comments PARTIAL THROMBOPLASTIN TIME 96.8 seconds 22.5-36.0 H (BEAKER) (test code = 760) [id number] 05:21:00 Test Item Value Reference Range Interpretation Comments D-DIMER QUANTITATIVE (BEAKER) 0.87 MG/L FEU <0.50 H (test code = 671) Intended Use: The D-Dimer Assay can be used to aid in the diagnosis of Deep Vein Thrombosis (DVT) and Pulmonary Embolism Disease (PED).In patients with low pre- test probability, various studies concerning STA Liatest D-dimer test have reported that with a cutoff value of 0.50 MG/L FEU, the Negative Predictive Value (NPV) regarding the exclusion of thrombosis is within 95-100% range.APTT 2021-01-11 23:24:00 Test Item Value Reference Range Interpretation Comments PARTIAL THROMBOPLASTIN TIME 94.3 seconds 22.5-36.0 H (BEAKER) (test code = 760) POCT-GLUCOSE [id number] 20:09:00 Test Item Value Reference Range Interpretation Comments POC-GLUCOSE METER 174 mg/dL 70-110 H : TESTED A T [facility] 6720 (BEAKER) (test code = [facility], 1538) 49513: Shipyard Helper/Techni melissa ID = [id number] for Ro gel (contract), Du villalobos [id number] 17:45:00 Test Item Value Reference Range Interpretation Comments PARTIAL THROMBOPLASTIN TIME 85.1 seconds 22.5-36.0 H (BEAKER) (test code = 760) POCT-GLUCOSE [id number] 17:25:00 Test Item Value Reference Range Interpretation Comments POC-GLUCOSE METER 165 mg/dL 70-110 H : TESTED A T [facility] 6720 (BEAKER) (test code = [facility], [facility]8) 61284: Shipyard Helper/Techni melissa ID = [id number] for Bernadine damicos (contract), Chika doi-b POCT-GLUCOSE [id number] 11:46:00 Test Item Value Reference Range Interpretation Comments POC-GLUCOSE METER 177 mg/dL 70-110 H : TESTED A T [facility] 6720 (BEAKER) (test code = [facility], [facility]8) 37365: Shipyard Helper/Techni melissa ID = [id number] for [place] RANDALLISSA [id number] 10:37:00 Test Item Value Reference Range Interpretation Comments PARTIAL THROMBOPLASTIN TIME 108.3 seconds 22.5-36.0 H (BEAKER) (test code = 760) POCT-GLUCOSE [id number] 08:40:00 Test Item Value Reference Range Interpretation Comments POC-GLUCOSE METER 181 mg/dL 70-110 H : TESTED A T [facility] 6720 (BEAKER) (test code = [facility], [facility]8) 55922: Shipyard Helper/Techni melissa ID = [id number] for VINNY MARSHL, JANNY [id number] 02:55:00 Test Item Value Reference Range Interpretation Comments PARTIAL THROMBOPLASTIN TIME 81.8 seconds 22.5-36.0 H (BEAKER) (test code = 760) BASIC METABOLIC [id number] 01:43:00 Test Item Value Reference Range Interpretation Comments SODIUM (BEAKER) 135 meq/L 136-145 L (test code = 381) POTASSIUM (BEAKER) 3.7 meq/L 3.5-5.1 (test code = 379) CHLORIDE (BEAKER) 100 meq/L 98-107 (test code = 382) CO2 (BEAKER) (test 23 meq/L 22-29 code = 355) BLOOD UREA NITROGEN 15 mg/dL 7-21 (BEAKER) (test code = 354) CREATININE (BEAKER) 0.71 mg/dL 0.57-1.25 (test code = 358) GLUCOSE RANDOM 208 mg/dL 70-105 H (BEAKER) (test code = 652) CALCIUM (BEAKER) 9.0 mg/dL 8.4-10.2 (test code = 697) EGFR (BEAKER) (test 85 mL/min/1.73 ESTIMA CHRISTOPHER GFR IS code = 1092) sq m NOT ACCURATE CREATININE CLEARANCE IN PREDICTING GLOMERULAR FILTRATION RATE . ESTIMATED GFR I S NOT APPLICABLE FOR DIALYSIS PATIEN TS. Shipyard Helper ID - [id number] 01:43:00 Test Item Value Reference Range Interpretation Comments MAGNESIUM (BEAKER) (test code = 2.0 mg/dL 1.6-2.6 627) Shipyard Helper ID - DBHEPATIC FUNCTION [id number] 01:43:00 Test Item Value Reference Range Interpretation Comments TOTAL PROTEIN (BEAKER) (test code = 8.0 gm/dL 6.0-8.3 770) ALBUMIN (BEAKER) (test code = 1145) 3.7 g/dL 3.5-5.0 BILIRUBIN TOTAL (BEAKER) (test code 1.2 mg/dL 0.2-1.2 = 377) BILIRUBIN DIRECT (BEAKER) (test 0.6 mg/dL 0.1-0.5 H code = 706) ALKALINE PHOSPHATASE (BEAKER) (test 78 U/L 40-150 code = 346) AST (SGOT) (BEAKER) (test code = 19 U/L 5-34 353) ALT (SGPT) (BEAKER) (test code = 15 U/L 6-55 347) Shipyard Helper ID - [id number] 01:32:00 Test Item Value Reference Range Interpretation Comments PARTIAL THROMBOPLASTIN TIME 139.0 seconds 22.5-36.0 H (BEAKER) (test code = 760) CBC W/PLT COUNT & AUTO [id number] 01:06:00 Test Item Value Reference Range Interpretation Comments WHITE BLOOD CELL COUNT (BEAKER) 4.7 K/ L 3.5-10.5 (test code = 775) RED BLOOD CELL COUNT (BEAKER) 4.79 M/ L 3.93-5.22 (test code = 761) HEMOGLOBIN (BEAKER) (test code = 13.3 GM/DL 11.2-15.7 410) HEMATOCRIT (BEAKER) (test code = 39.9 % 34.1-44.9 411) MEAN CORPUSCULAR VOLUME (BEAKER) 83.3 fL 79.4-94.8 (test code = 753) MEAN CORPUSCULAR HEMOGLOBIN 27.8 pg 25.6-32.2 (BEAKER) (test code = 751) MEAN CORPUSCULAR HEMOGLOBIN CONC 33.3 GM/DL 32.2-35.5 (BEAKER) (test code = 752) RED CELL DISTRIBUTION WIDTH 14.5 % 11.7-14.4 H (BEAKER) (test code = 412) PLATELET COUNT (BEAKER) (test 101 K/CU MM 150-450 L code = 756) MEAN PLATELET VOLUME (BEAKER) 10.9 fL 9.4-12.3 (test code = 754) NUCLEATED RED BLOOD CELLS 0 /100 WBC 0-0 (BEAKER) (test code = 413) NEUTROPHILS RELATIVE PERCENT 79 % (BEAKER) (test code = 429) LYMPHOCYTES RELATIVE PERCENT 13 % (BEAKER) (test code = 430) MONOCYTES RELATIVE PERCENT 8 % (BEAKER) (test code = 431) EOSINOPHILS RELATIVE PERCENT 0 % (BEAKER) (test code = 432) BASOPHILS RELATIVE PERCENT 0 % (BEAKER) (test code = 437) NEUTROPHILS ABSOLUTE COUNT 3.66 K/ L 1.56-6.13 (BEAKER) (test code = 670) LYMPHOCYTES ABSOLUTE COUNT 0.61 K/ L 1.18-3.74 L (BEAKER) (test code = 414) MONOCYTES ABSOLUTE COUNT (BEAKER) 0.37 K/ L 0.24-0.36 H (test code = 415) EOSINOPHILS ABSOLUTE COUNT 0.00 K/ L 0.04-0.36 L (BEAKER) (test code = 416) BASOPHILS ABSOLUTE COUNT (BEAKER) 0.01 K/ L 0.01-0.08 (test code = 417) IMMATURE GRANULOCYTES-RELATIVE 0 % 0-1 PERCENT (BEAKER) (test code = 2801) [id number] 00:37:00 Test Item Value Reference Range Interpretation Comments PARTIAL THROMBOPLASTIN TIME > seconds 22.5-36.0 HH (BEAKER) (test code = 760) [id number] 23:57:00 Test Item Value Reference Range Interpretation Comments PARTIAL THROMBOPLASTIN TIME > seconds 22.5-36.0 HH (BEAKER) (test code = 760) POCT-GLUCOSE [id number] 23:35:00 Test Item Value Reference Range Interpretation Comments POC-GLUCOSE METER 173 mg/dL 70-110 H : TESTED A T [facility] 6720 ([facility]) (test code = [facility], 1538) 09595: Shipyard Helper/Techni melissa ID = [id number] for Matt anderson (contract), Ena r CT, CHEST WITH IV CONTRAST- PE TEST [id number] 19:26:00Referring: DOROTA Alvares-CUnlisted Reason for Exam - Click Yes and Enter Reason Below->No [facility] : 1965 Sex: FFINAL REPORT TECHNIQUE: CT scan of the chest WITH intravenous contr ast. Dose modulation, iterative reconstruction, and/or weight-based adjustment of the mA/kV was utilized to reduce the radiation dose to as low as reasonably achievable. INDICATION: Shortness of breathPE suspected, high pretest prob COMPARISON: 05/27/2019. FINDINGS: LINES/TUBES: None. PULMONARY ARTERIES: Proximal to the bifurcation of the main pulmonary artery, the main pulmonary artery is 2.6 cm indiameter. No filling defects within the pulmonary arteries to suggest pulmonary embolus. LUNGS AND AIRWAYS: Lungs are hypoinflated with bibasilar atelectasis. There is scattered patchy consolidative and groundglass opacities predominantly peripheral in distribution without a significant basilar or apical gradient. Tracheobronchial airways are clear. PLEURA: Trace left pleural effusion. No pneumothorax. HEART AND MEDIASTINUM: The visualized thyroid gland is normal. No mediastinal, hilar, or axillarylymphadenopathy. Marked coronary atherosclerotic calcifications. Heart is normal size. No pericardial effusion. SOFT TISSUES AND BONES: No acute osseous abnormality. Unchanged right chest subcutaneous nodule that is 1.8 cm diameter abutting the skin surface possibly representing an epidermoid cyst. UPPER ABDOMEN: Cholecystectomy. There is a partially imaged infrarenal IVC filter. IMPRESSION: 1. No pulmonary embolism. 2. Moderate bilateral scattered lung opacities often seen with Covid 19 pneumonitis. Other processes such as pulmonary edema, influenza pneumonia and organizing pneumonia, as can be seen with drug toxicity and connective tissue disorder, can cause a similar imaging pattern. 3. Trace left pleural effusion and bibasilar atelectasis. Signed: [place] MDReport Verified Date/Time: 19:26:31 [facility] pulmonary [id number] 19:26:00Interface, External Ris In - 01/10/2021 7:29 PM CDTFINAL REPORT TECHNIQUE: CT scan of the chest WITH intravenous contrast. Dose modulation, iterative reconstruction, and/or weight-based adjustment of the mA/kV was utilized to reduce the radiation dose to as low as reasonably achievable. INDICATION: Shortness of breathPE suspected, high pretest prob COMPARISON: 05/27/2019. FINDINGS: LINES/TUBES: None. PULMONARY ARTERIES: Proximal to the bifurcation of the main pulmonary artery, the main pulmonary artery is 2.6 cm in diameter. No filling defects within the pulmonary arteriesto suggest pulmonary embolus. LUNGS AND AIRWAYS: Lungs are hypoinflated with bibasilar atelectasis. T here is scattered patchy consolidative and groundglass opacities predominantly peripheral in distribution without a significant basilar or apical gradient. Tracheobronchial airways are clear. PLEURA: Trace left pleural effusion. No pneumothorax. HEART AND MEDIASTINUM: The visualized thyroid gland is normal. No mediastinal, hilar, or axillary lymphadenopathy. Marked coronary atherosclerotic calcifications. Heart is normal size. No pericardial effusion. SOFT TISSUES AND BONES: No acute osseous abnormality. Unchanged right chest subcutaneous nodule that is 1.8 cm diameter abutting the skin surface possibly representing an epidermoid cyst. UPPER ABDOMEN: Cholecystectomy. There is a partially imaged inf rarenal IVC filter. IMPRESSION: 1. No pulmonary embolism. 2. Moderate bilateral scattered lung opacities often seen with Covid 19 pneumonitis. Other processes such as pulmonary edema, influenza pneumonia and organizing pneumonia, as can be seen with drug toxicity and connective tissue disorder, can cause a similar imaging pattern. 3. Trace left pleural effusion and bibasilar atelectasis. Signed: [place] MDReport Verified Date/Time: 01/10/2021 19:26:31 [facility] [id number] 19:26:00Interface, External Ris In - 01/10/2021 7:29 PM CDTFINAL REPORT TECHNIQUE: CT scan of the chest WITH intravenous contrast. Dose modulation, iterative reconstruction, and/or weight-based adjustment of the mA/kV was utilized to reduce the radiation dose to as low as reasonably achievable. INDICATION: Shortness of breathPE suspected, high pretest prob COMPARISON: 05/27/2019. FINDINGS: LINES/TUBES: None. PULMONARY ARTERIES: Proximal to the bifurcation of the main pulmonary artery, the main pulmonary artery is 2.6 cm in diameter. No filling defects within the pulmonary arteriesto suggest pulmonary embolus. LUNGS AND AIRWAYS: Lungs are hypoinflated with bibasilar atelectasis. T here is scattered patchy consolidative and groundglass opacities predominantly peripheral in distribution without a significant basilar or apical gradient. Tracheobronchial airways are clear. PLEURA: Trace left pleural effusion. No pneumothorax. HEART AND MEDIASTINUM: The visualized thyroid gland is normal. No mediastinal, hilar, or axillary lymphadenopathy. Marked coronary atherosclerotic calcifications. Heart is normal size. No pericardial effusion. SOFT TISSUES AND BONES: No acute osseous abnormality. Unchanged right chest subcutaneous nodule that is 1.8 cm diameter abutting the skin surface possibly representing an epidermoid cyst. UPPER ABDOMEN: Cholecystectomy. There is a partially imaged inf rarenal IVC filter. IMPRESSION: 1. No pulmonary embolism. 2. Moderate bilateral scattered lung opacities often seen with Covid 19 pneumonitis. Other processes such as pulmonary edema, influenza pneumonia and organizing pneumonia, as can be seen with drug toxicity and connective tissue disorder, can cause a similar imaging pattern. 3. Trace left pleural effusion and bibasilar atelectasis. Signed: [place] MDReport Verified Date/Time: 01/10/2021 19:26:31 [facility] [id number] 18:30:00 Test Item Value Reference Range Interpretation Comments POC-GLUCOSE METER 190 mg/dL 70-110 H : TESTED A T [facility] 6720 (BEAKER) (test code = [facility], 1538) 33280: Shipyard Helper/Techni melissa ID = [id number] for Go nzalez, Yohana Lactic acid, venous [id number] 17:48:00 Test Item Value Reference Range Interpretation Comments Lactate, Venous (test 1.27 mmol/L 0.5-2.2 Specim en code = 2872) slightly hemolyzed JENNIFER (test code = JENNIFER) Shipyard Helper ID - DB Lab Interpretation Normal (test code = 58200-9) [facility] [id number] 17:48:00 Test Item Value Reference Range Interpretation Comments Lactate, Venous (test 1.27 mmol/L 0.5-2.2 Specim en code = 2872) slightly hemolyzed JENNIFER (test code = JENNIFER) Shipyard Helper ID - DB Lab Interpretation Normal (test code = 50221-2) [facility], venous [id number] 17:48:00 Test Item Value Reference Range Interpretation Comments Lactate, Venous (test 1.27 mmol/L 0.50-2.20 Specim en code = 2872) slightly hemolyzed JENNIFER (test code = JENNIFER) Shipyard Helper ID - DB Lab Interpretation Normal (test code = 16502-0) [facility], venous [id number] 17:48:00 Test Item Value Reference Range Interpretation Comments Lactate, Venous (test 1.27 mmol/L 0.50-2.20 Specim en code = 2872) slightly hemolyzed JENNIFER (test code = JENNIFER) Shipyard Helper ID - DB Lab Interpretation Normal (test code = 39353-5) [facility]CT[facility], [id number] 17:48:00 Test Item Value Reference Range Interpretation Comments LACTATE BLOOD VENOUS 1.27 mmol/L 0.50-2.20 Specime n slightly (2) (BEAKER) (test hemolyzed code = 2872) Shipyard Helper ID - DBB-type natriuretic [id number] 16:05:00 Test Item Value Reference Range Interpretation Comments BNP (test code = 42350-2) 16 pg/mL 0-100 JENNIFER (test code = JENNIFER) Shipyard Helper ID - DB Lab Interpretation (test Normal code = 72473-1) [facility] [id number] 16:05:00 Test Item Value Reference Range Interpretation Comments BNP (test code = 31247-8) 16 pg/mL 0-100 JENNIFER (test code = JENNIFER) Shipyard Helper ID - DB Lab Interpretation (test Normal code = 94259-2) [facility] natri[facility]tic [id number] 16:05:00 Test Item Value Reference Range Interpretation Comments BNP (test code = 77553-7) 16 pg/mL 0-100 JENNIFER (test code = JENNIFER) Shipyard Helper ID - DB Lab Interpretation (test Normal code = 92392-1) [facility]-type natriuretic [id number] 16:05:00 Test Item Value Reference Range Interpretation Comments BNP (test code = 60446-4) 16 pg/mL 0-100 JENNIFER (test code = JENNIFER) Shipyard Helper ID - DB Lab Interpretation (test Normal code = 54409-5) [facility]-TYPE NATRIURETIC FACTOR (BNP)[id number] 16:05:00 Test Item Value Reference Range Interpretation Comments B-TYPE NATRIURETIC PEPTIDE (BEAKER) 16 pg/mL 0-100 (test code = 700) Shipyard Helper ID - [id number] 15:38:00 Test Item Value Reference Range Interpretation Comments FERRITIN (SERGIO) (test code = 996.31 ng/mL 5.00-275.00 H 361) Shipyard Helper ID - DBTroponin [id number] 15:27:00 Test Item Value Reference Range Interpretation Comments Troponin I (test code = <0.01 0-0.03 01643-2) JENNIFER (test code = JENNIFER) Troponin I (TnI) levels must be interpreted in the context of the presenting symptoms and the clinical findings. Elevated TnI levels indicate myocardial damage, but are not specific for ischemic heart disease. Elevated TnI levels are seen in patients with other cardiac conditions (including myocarditis and congestive heart failure), and slight TnI elevations occur in patients with other conditions, including sepsis, renal failure, acidosis, acute neurological disease, and persistent tachyarrhythmia.[employer] ID - DB Lab Interpretation (test Normal code = 94234-4) [facility] [id number] 15:27:00 Test Item Value Reference Range Interpretation Comments Troponin I (test code = <0.01 0-0.03 78548-3) JENNIFER (test code = JENNIFER) Troponin I (TnI) levels must be interpreted in the context of the presenting symptoms and the clinical findings. Elevated TnI levels indicate myocardial damage, but are not specific for ischemic heart disease. Elevated TnI levels are seen in patients with other cardiac conditions (including myocarditis and congestive heart failure), and slight TnI elevations occur in patients with other conditions, including sepsis, renal failure, acidosis, acute neurological disease, and persistent tachyarrhythmia.[employer] ID - DB Lab Interpretation (test Normal code = 21338-3) [facility] [id number] 15:27:00 Test Item Value Reference Range Interpretation Comments Troponin I (test code = <0.01 0.00-0.03 45273-1) JENNIFER (test code = JENNIFER) Troponin I (TnI) levels must be interpreted in the context of the presenting symptoms and the clinical findings. Elevated TnI levels indicate myocardial damage, but are not specific for ischemic heart disease. Elevated TnI levels are seen in patients with other cardiac conditions (including myocarditis and congestive heart failure), and slight TnI elevations occur in patients with other conditions, including sepsis, renal failure, acidosis, acute neurological disease, and persistent tachyarrhythmia.[facility] ID - DB Lab Interpretation (test Normal code = 38264-9) [facility] [id number] 15:27:00 Test Item Value Reference Range Interpretation Comments Troponin I (test code = <0.01 0.00-0.03 28990-3) JENNIFER (test code = JENNIFER) Troponin I (TnI) levels must be interpreted in the context of the presenting symptoms and the clinical findings. Elevated TnI levels indicate myocardial damage, but are not specific for ischemic heart disease. Elevated TnI levels are seen in patients with other cardiac conditions (including myocarditis and congestive heart failure), and slight TnI elevations occur in patients with other conditions, including sepsis, renal failure, acidosis, acute neurological disease, and persistent tachyarrhythmia.[facility] [employer] ID - DB Lab Interpretation (test Normal code = 84788-6) [facility] [id number] 15:27:00 Test Item Value Reference Range Interpretation Comments TROPONIN I (BEAKER) (test code = 397) < ng/mL 0.00-0.03 Troponin I (TnI) levels must be interpreted in the context of the presenting symptoms and the clinical findings. Elevated TnI levels indicate myocardial damage, but are not specific for ischemic heart disease. Elevated TnI levels are seen in patients with other cardiac conditions (including myocarditis and congestive heart failure), and slight TnI elevations occur in patients with other conditions, including sepsis, renal failure, acidosis, acute neurological disease, and persistent tachyarrhythmia.[employer] ID - DBCOMPREHENSIVE METABOLIC [id number] 15:19:00 Test Item Value Reference Range Interpretation Comments TOTAL PROTEIN 8.5 gm/dL 6.0-8.3 H (BEAKER) (test code = 770) ALBUMIN (BEAKER) 4.0 g/dL 3.5-5.0 (test code = 1145) ALKALINE PHOSPHATASE 86 U/L 40-150 (BEAKER) (test code = 346) BILIRUBIN TOTAL 1.3 mg/dL 0.2-1.2 H (BEAKER) (test code = 377) SODIUM (BEAKER) (test 135 meq/L 136-145 L code = 381) POTASSIUM (BEAKER) 3.8 meq/L 3.5-5.1 (test code = 379) CHLORIDE (BEAKER) 99 meq/L 98-107 (test code = 382) CO2 (BEAKER) (test 23 meq/L 22-29 code = 355) BLOOD UREA NITROGEN 16 mg/dL 7-21 (BEAKER) (test code = 354) CREATININE (BEAKER) 0.78 mg/dL 0.57-1.25 (test code = 358) GLUCOSE RANDOM 179 mg/dL 70-105 H (BEAKER) (test code = 652) CALCIUM (BEAKER) 9.6 mg/dL 8.4-10.2 (test code = 697) AST (SGOT) (BEAKER) 25 U/L 5-34 (test code = 353) ALT (SGPT) (BEAKER) 18 U/L 6-55 (test code = 347) EGFR (BEAKER) (test 76 mL/min/1.73 ESTIMA CHRISTOPHER GFR IS code = 1092) sq m NOT ACCURATE CREATININE CLEARANCE IN PREDICTING GLOMERULAR FILTRATION RATE . ESTIMATED GFR I S NOT APPLICABLE FOR DIALYSIS PATIEN TS. [employer] ID - DBLACTATE DEHYDROGENASE (LDH)2021-01-10 15:19:00 Test Item Value Reference Range Interpretation Comments LACTATE DEHYDROGENASE (BEAKER) (test 229 U/L 125-220 H code = 635) [employer] ID - DBC-REACTIVE [id number] 15:19:00 Test Item Value Reference Range Interpretation Comments C-REACTIVE PROTEIN (BEAKER) (test 5.75 mg/dL 0.00-0.50 H code = 676) [employer] ID - DBLACTIC ACID, [id number] 15:17:00 Test Item Value Reference Range Interpretation Comments LACTATE BLOOD VENOUS 2.64 mmol/L 0.50-2.20 H Specime n slightly (2) (BEAKER) (test hemolyzed code = 5591) [employer] ID - DBCRITICAL [id number] 15:01:08Davida Dillon MD 01/10/2021 11:07 PMCritical CarePerformed by: Davida Dillon MDAuthorized by: Davida Dillon MD Total critical care time: 40 minutesCritical care was necessary to treat or prevent imminent or life-threatening deterioration of the following conditions: respiratory failure.Critical care was time spent personally by me on the following activities: discussions with consultants, evaluation of patient's response to treatment, obtaining history from patient or surrogate, ordering and review of laboratory studies, pulse oximetry, ordering and performing treatments and interventions, ordering and review of radiographic studies, re-evaluation of patient's condition and development of treatment plan with patient or surrogate.[facility] 2021-01-10 15:01:08Davida Dillon MD 01/10/2021 11:07 PMECG/EKG Interpretation Date/Time: 01/10/2021 11:06 PMPerformed by: Davida Dillon MDAuthorized by: Davida Dillon MD The ECG is interpreted as sinus rhythm. Rate is normal rate. Conduction: conduction normal. ST segments normal. T waves normal. Other findings: no other findings. Clinical Impression: normal [facility]enaCRITICAL [id number] 15:01:08Davida Dillon MD 01/10/2021 11:07 PMCritical CarePerformed by: Davida Dillon MDAuthorized by: Davida Dillon MD Total critical care time: 40 minutesCritical care was necessary to treat or prevent imminent or life- threatening deterioration of the following conditions: respiratory failure.Critical care was time spent personally by me on the following activities: discussions with consultants, evaluation of patient's response to treatment, obtaining history from patient or surrogate, ordering and review of laboratory studies, pulse oximetry, ordering and performing treatments and interventions, ordering and review of radiographic studies, re-evaluation of patient's condition and development of treatment plan with patient or surrogate. [facility] [id number] 15:01:08Davida Dillon MD 01/10/2021 11:07 PMECG/EKG Interpretation Date/Time: 01/10/2021 11:06 PMPerformed by: Davida Dillon MDAuthorized by: Davida Dillon MD The ECG is interpreted as sinus rhythm. Rate is normal rate. Conduction: conduction normal. ST segments normal. T waves normal. Other findings: no other findings. Clinical Impression: normal [facility]CH[facility] & AUTO [id number] 14:59:00 Test Item Value Reference Range Interpretation Comments WHITE BLOOD CELL COUNT (BEAKER) 6.8 K/ L 3.5-10.5 (test code = 775) RED BLOOD CELL COUNT (BEAKER) 5.12 M/ L 3.93-5.22 (test code = 761) HEMOGLOBIN (BEAKER) (test code = 14.1 GM/DL 11.2-15.7 410) HEMATOCRIT (BEAKER) (test code = 41.3 % 34.1-44.9 411) MEAN CORPUSCULAR VOLUME (BEAKER) 80.7 fL 79.4-94.8 (test code = 753) MEAN CORPUSCULAR HEMOGLOBIN 27.5 pg 25.6-32.2 (BEAKER) (test code = 751) MEAN CORPUSCULAR HEMOGLOBIN CONC 34.1 GM/DL 32.2-35.5 (BEAKER) (test code = 752) RED CELL DISTRIBUTION WIDTH 14.7 % 11.7-14.4 H (BEAKER) (test code = 412) PLATELET COUNT (BEAKER) (test 116 K/CU MM 150-450 L code = 756) MEAN PLATELET VOLUME (BEAKER) 11.3 fL 9.4-12.3 (test code = 754) NUCLEATED RED BLOOD CELLS 0 /100 WBC 0-0 (BEAKER) (test code = 413) NEUTROPHILS RELATIVE PERCENT 84 % (BEAKER) (test code = 429) LYMPHOCYTES RELATIVE PERCENT 11 % (BEAKER) (test code = 430) MONOCYTES RELATIVE PERCENT 5 % (BEAKER) (test code = 431) EOSINOPHILS RELATIVE PERCENT 0 % (BEAKER) (test code = 432) BASOPHILS RELATIVE PERCENT 0 % (BEAKER) (test code = 437) NEUTROPHILS ABSOLUTE COUNT 5.75 K/ L 1.56-6.13 (BEAKER) (test code = 670) LYMPHOCYTES ABSOLUTE COUNT 0.73 K/ L 1.18-3.74 L (BEAKER) (test code = 414) MONOCYTES ABSOLUTE COUNT (BEAKER) 0.31 K/ L 0.24-0.36 (test code = 415) EOSINOPHILS ABSOLUTE COUNT 0.00 K/ L 0.04-0.36 L (BEAKER) (test code = 416) BASOPHILS ABSOLUTE COUNT (BEAKER) 0.00 K/ L 0.01-0.08 L (test code = 417) IMMATURE GRANULOCYTES-RELATIVE 0 % 0-1 PERCENT (BEAKER) (test code = 2801) [id number] 14:58:00 Test Item Value Reference Range Interpretation Comments PARTIAL THROMBOPLASTIN TIME 33.8 seconds 22.5-36.0 (BEAKER) (test code = 760) PROTHROMBIN TIME/[id number] 14:57:00 Test Item Value Reference Range Interpretation Comments PROTIME (BEAKER) 15.5 seconds 11.9-14.2 H (test code = 759) INR (BEAKER) (test 1.26 See_Comment [Automat ed message] code = 370) The system [employer] generated this result transmitted ref erence range: <=5.90. The reference range was not used to int erpret this result as normal/abnormal . Effective 03/08/2019: PT Reference Range ChangeNew: 11.9-14.2 Previous: 11.7- 14.7RECOMMENDED COUMADIN/WARFARIN INR THERAPY RANGESSTANDARD DOSE: 2.0-3.0 Includes: PROPHYLAXIS for venous thrombosis, systemic embolization; TREATMENT for venous thrombosis and/or pulmonary embolus.HIGH RISK: Target INR is2.5-3.5 for patients wiht mechanical heart valves.Blood gas, [id number] 14:53:00 Test Item Value Reference Range Interpretation Comments pH, Juan Francisco (test code = 7.56 7.32-7.42 H 2746-6) pCO2, Juan Francisco (test code = 26 See_Comment L [Aut omated message] 035) The system [employer] generated this result transmit christopher reference range : 41 - 51 mm Hg. The reference range was not used to interpret this result as normal/abnormal . pO2, Juan Francisco (test code = 81 See_Comment H [Auto mated message] 6865-2) The system [employer] generated this result transmit christopher reference range : 25 - 40 mm Hg. The reference range was not used to interpret this result as normal/abnormal . O2 Sat, Juan Francisco (test code 97.0 % 40-70 H = 2711-0) HCO3, Juan Francisco (test code = 23 mmol/L 21-29 78523-9) Base Excess, Juan Francisco (test 2.3 mmol/L -2-3 code = 1927-3) Patient Temperature 38.0 (test code = 8310-5) FIO2 (test code = 1819) 21 Lab Interpretation Abnormal (test code = 04104-1) [facility] gas, [id number] 14:53:00 Test Item Value Reference Range Interpretation Comments pH, Juan Francisco (test code = 7.56 7.32-7.42 H 2746-6) pCO2, Juan Francisco (test code = 26 See_Comment L [Aut omated message] 755) The system [employer] generated this result transmit christopher reference range : 41 - 51 mm Hg. The reference range was not used to interpret this result as normal/abnormal . pO2, Juan Francisco (test code = 81 See_Comment H [Auto mated message] 2705-2) The system [employer] generated this result transmit christopher reference range : 25 - 40 mm Hg. The reference range was not used to interpret this result as normal/abnormal . O2 Sat, Juan Francisco (test code 97.0 % 40-70 H = 2711-0) HCO3, Juan Francisco (test code = 23 mmol/L 21-29 77030-4) Base Excess, Juan Francisco (test 2.3 mmol/L -2-3 code = 1927-3) Patient Temperature 38.0 (test code = 8310-5) FIO2 (test code = 1819) 21 Lab Interpretation Abnormal (test code = 42662-4) [facility] gas, [id number] 14:53:00 Test Item Value Reference Range Interpretation Comments pH, Juan Francisco (test code = 7.56 7.32-7.42 H 2746-6) pCO2, Juan Francisco (test code = 26 See_Comment L [Aut omated message] 755) The system [employer] generated this result transmit christopher reference range : 41 - 51 mm Hg. The reference range was not used to interpret this result as normal/abnormal . pO2, Juan Francisco (test code = 81 See_Comment H [Auto mated message] 2705-2) The system [employer] generated this result transmit christopher reference range : 25 - 40 mm Hg. The reference range was not used to interpret this result as normal/abnormal . O2 Sat, Juan Francisco (test code 97.0 % 40.0-70.0 H = 2711-0) HCO3, Juan Francisco (test code = 23 mmol/L 21-29 60975-7) Base Excess, Juan Francisco (test 2.3 mmol/L -2.0-3.0 code = 1927-3) Patient Temperature 38.0 (test code = 8310-5) FIO2 (test code = 1819) 21 Lab Interpretation Abnormal (test code = 67499-1) [facility], [id number] 14:53:00 Test Item Value Reference Range Interpretation Comments pH, Juan Francisco (test code = 7.56 7.32-7.42 H 2746-6) pCO2, Juan Francisco (test code = 26 See_Comment L [Aut omated message] 755) The system [employer] generated this result transmit christopher reference range : 41 - 51 mm Hg. The reference range was not used to interpret this result as normal/abnormal . pO2, Juan Francisco (test code = 81 See_Comment H [Auto mated message] 7705-2) The system [employer] generated this result transmit christopher reference range : 25 - 40 mm Hg. The reference range was not used to interpret this result as normal/abnormal . O2 Sat, Juan Francisco (test code 97.0 % 40.0-70.0 H = 2711-0) HCO3, Juan Francisco (test code = 23 mmol/L 21-29 10441-8) Base Excess, Juan Francisco (test 2.3 mmol/L -2.0-3.0 code = 1927-3) Patient Temperature 38.0 (test code = 8310-5) FIO2 (test code = 1819) 21 Lab Interpretation Abnormal (test code = 06961-1) [facility], [id number] 14:53:00 Test Item Value Reference Range Interpretation Comments PH VENOUS (BEAKER) (test code = 7.56 7.32-7.42 H 701) PCO2 VENOUS (BEAKER) (test code = 26 mm Hg 41-51 L 755) PO2 VENOUS (BEAKER) (test code = 81 mm Hg 25-40 H 702) O2 SATURATION VENOUS (BEAKER) 97.0 % 40.0-70.0 H (test code = 703) HCO3 VENOUS (BEAKER) (test code = 23 mmol/L 21-29 705) BASE EXCESS VENOUS (BEAKER) (test 2.3 mmol/L -2.0-3.0 code = 704) PATIENT TEMPERATURE (BEAKER) (test 38.0 code = 1818) FIO2 (BEAKER) (test code = 1819) 21.0 RAD, CHEST, 1 VIEW, NON [id number] 14:44:00Referring: JUAN Alvares for exam:->SOBShould this be performed at the bedside?->Yes [facility] : 1965 Sex: FFINAL REPORT INDICATION: SOB COMPARISON: April 10, 2019 TECHNIQUE: Si ngle frontal view of the chest. FINDINGS: Lungs and pleura: Clear lungs. No effusion.Heart and mediastinum: Normal heart size. Unremarkable mediastinal contours.Osseous structures: No acute abnormality.Other: None. IMPRESSION: No acute intrathoracic abnormality. Signed: JR Ruiz Robert MDReport Verified Date/Time: 01/10/2021 14:44:46 Reading Location: [facility] Radiology Reading Room XR chest 1 view portable / [id number] 14:44:00 Interface, External Ris In - 01/10/2021 2:46 PM CDTFINAL REPORT INDICATION: SOB COMPARISON: April 10, 2019 TECHNIQUE: Single frontal view of the chest. FINDINGS: Lungs and pleura:Clear lungs. No effusion.Heart and mediastinum: Normal heart size. Unremarkable mediastinal contours.Osseous structures: No acute abnormality.Other: None. IMPRESSION: No acute intrathoracic abnormality. Signed: JR Ruiz Robert MDReport Verified Date/Time: 01/10/2021 14:44:46 Reading Location: [facility]iology [facility] / [id number] 14:44:00Interface, External Ris In - 01/10/2021 2:46 PM CDTFINAL REPORT INDICATION: SOB COMPARISON: April 10, 2019 TECHNIQUE: Single frontal view of the chest. FINDINGS: Lungs and pleura:Clear lungs. No effusion.Heart and mediastinum: Normal heart size. Unremarkable mediastinal contours.Osseous structures: No acute abnormality.Other: None. IMPRESSION: No acute intrathoracic abnormality. Signed: JR Ruiz Robert MDReport Verified Date/Time: 01/10/2021 14:44:46 Reading Location: [facility] Radiology Reading [facility] - [id number] 00:00:00Ordered by an unspecified provider.[facility] EJY-[id number] 00:00:00Ordered by an unspecified provider.[facility] - [id number] 00:00:00Ordered by an unspecified provider.[facility]enaEKG-[id number] 00:00:00Ordered by an unspecified provider.[facility]enaAlpha fetoprotein (AFP), tumor [id number] 18:08:00 Test Item Value Reference Range Interpretation Comments Alpha-Fetoprotein (test code 5.6 ng/mL <10.0 = 1834-1) JENNIFER (test code = JENNIFER) [employer] ID - DB Lab Interpretation (test Normal code = 69992-7) [facility] fetoprotein (AFP), tumor [id number] 18:08:00 Test Item Value Reference Range Interpretation Comments Alpha-Fetoprotein (test code 5.6 ng/mL <10.0 = 1834-1) JENNIFER (test code = JENNIFER) [employer] ID - DB Lab Interpretation (test Normal code = 34505-9) [facility]ALPHA FETOPROTEIN (AFP), TUMOR [id number] 18:08:00 Test Item Value Reference Range Interpretation Comments ALPHA-FETOPROTEIN (BEAKER) (test 5.6 ng/mL <10.0 code = 1094) [employer] ID - DBBASIC METABOLIC [id number] 16:31:00 Test Item Value Reference Range Interpretation [...] S NOT APPLICABLE FOR DIALYSIS PATIEN TS. [employer] ID - DBHEPATIC FUNCTION [id number] 16:31:00 Test Item Value Reference Range Interpretation [...] (test code = 19 U/L 6-55 347) [employer] ID - DBPROTHROMBIN TIME/[id number] 16:19:00 Test Item Value Reference Range Interpretation Comments PROTIME (BEAKER) 15.2 seconds 11.9-14.2 H (test code = 759) INR (BEAKER) (test 1.23 See_Comment [Automat ed message] code = 370) The system [employer] generated this result transmitted ref erence range: [...] mechanical heart valves.CBC W/PLT COUNT & AUTO [id number] 16:11:00 Test Item Value Reference Range Interpretation [...] 0-1 PERCENT (BEAKER) (test code = 2801) POCT HEMOGLOBIN [id number] 20:47:00 Test Item Value Reference Range Interpretation Comments HEMOGLOBIN A1C (test code = 4548-4) 6.8 % 4.0-5.6 A Lab Interpretation (test code = Abnormal 71073-9) [facility] [id number] 19:51:00 Test Item Value Reference Range Interpretation Comments HEMOGLOBIN A1C (test code = 4548-4) 8.3 % 4-5.6 A Lab Interpretation (test code = Abnormal 29112-0) [facility] UR[facility]LEH)2020-09-02 00:00:00 Test Item Value Reference Range Interpretation Comments CALCIUM OXALATE NONE SEEN NONE OR FEW /HPF CRYSTALS (test code = 70370-6) TRIPLE PHOSPHATE NONE SEEN NONE OR FEW /HPF CRYSTALS (test code = 26459-5) URIC ACID CRYSTALS NONE SEEN NONE OR FEW /HPF (test code = 79385-7) AMORPHOUS SEDIMENT NONE SEEN NONE OR FEW /HPF (test code = 8246-1) CRYSTALS (test code = NONE SEEN /HPF No urine crystals 70241-6) seen. REPORT COMMENT:SPLIT 08/31/2020 FROM [id number]: UNKNOWN Performed at: [facility] [address] [id number] YONY LARA MD [facility]MO[facility] [id number] 08:05:00 Test Item Value Reference Range Interpretation Comments HEMOGLOBIN A1C (test 9.8 % 4.2-5.6 H FILIPINO code = 4548-4) DIABETES ASSO CIATION GUIDELINES FOR HGB A1C: PREDIABETES/INC REASED RISK . . . . . . . 5.7-6.4% DIAGNOSIS OF DI ABETES . . . . . . . . . >=6.5% WITH CONFIRMATION OR APPROPRIATE SYM PTOMS NOTE: ASSAY MA Y BE AFFECTED BY HEMOGLOBINOPATH IES (SICKLE SAMEERA L ANEMIA, S-C DISEASE, OT HERS) OR ARTIFICIALLY LO WERED BY DECREASED RE D CELL SURVIVAL (HEMOL YTIC ANEMIAS, BLOOD LOSS, ETC.). CONSIDE R ALTERNATE TESTI NG OR LABORATORY CONS ULTATION. Unless Otherwise Indic ated, All Testing Perform ed At: [facility], [address] [place] [address] Research Engineer: Umair Hidalgo [id number] Cap Accreditation N o. 63[address]-26 Lab Interpretation Abnormal (test code = 73445-2) [facility]2020-05-26 16:21:00 Test Item Value Reference Range Interpretation Comments POCT GLU (test code = 9317883918) 207 mg/dL 70-110 H Lab Interpretation (test code = Abnormal 50406-7) [facility]2020-05-26 13:22:00 Test Item Value Reference Range Interpretation Comments POCT GLU (test code = 4891502393) 171 mg/dL 70-110 H Lab Interpretation (test code = Abnormal 32052-4) [facility] WITH [id number] 10:50:00 Test Item Value Reference Range Interpretation Comments WBC (test code = See_Comment [Automated 6690-2) message] The sy stem which generated this result transmitted reference range : 4.30 - 11.10 10*3/?L. The reference range was not used to interpret this result as normal/abnormal . RBC (test code = See_Comment [Automated 789-8) message] The sy stem which generated this result transmitted reference range : 3.93 - 5.25 10*6/?L. The reference range was not used to interpret this result as normal/abnormal . HGB (test code = 13.2 g/dL 11.6-15 718-7) HCT (test code = 39.9 % 35.7-45.2 4544-3) MCV (test code = 88.3 fL 80.6-95.5 787-2) MCH (test code = 29.2 pg 25.9-32.8 785-6) MCHC (test code = 33.1 g/dL 31.6-35.1 786-4) RDW-SD (test code = 47.2 fL 39-49.9 31632-5) RDW-CV (test code = 14.7 % 12-15.5 788-0) PLT (test code = See_Comment L [Automated 777-3) message] The sy stem which generated this result transmitted reference range : 166 - 358 10*3/ ?L. The reference r charlotte was not used to interpret this result as normal/abnormal . MPV (test code = 11.3 fL 9.5-12.9 61546-6) IPF % (test code = 6.6 % 1.3-7.7 Platelet count [id number]) measured by fluorescence method. NRBC/100 WBC (test See_Comment [Automat ed code = 7067987393) message] The system which generated this result transmitted reference range : 0.0 - 10.0 /100 WBCs. The refer ence range was not u sed to interpret th is result as normal/abnormal . NRBC x10^3 (test code <0.01 See_Comment [Auto mated = 7205047383) message] The s ystem which generated this result transmitted reference range : 10*3/?L. The reference range was not used to interpret this result as normal/abnormal . GRAN MAT (NEUT) % 69.1 % (test code = 770-8) IMM GRAN % (test code 0.40 % = 5672514673) LYMPH % (test code = 21.8 % 736-9) MONO % (test code = 6.3 % 5905-5) EOS % (test code = 1.9 % 713-8) BASO % (test code = 0.5 % 706-2) GRAN MAT x10^3(ANC) 3.92 10*3/uL 1.88-7.09 (test code = 6378820661) IMM GRAN x10^3 (test <0.03 0-0.06 code = 1513591479) LYMPH x10^3 (test code 1.24 10*3/uL 1.32-3.29 L = 731-0) MONO x10^3 (test code 0.36 10*3/uL 0.33-0.92 = 742-7) EOS x10^3 (test code = 0.11 10*3/uL 0.03-0.39 711-2) BASO x10^3 (test code 0.03 10*3/uL 0.01-0.07 = 704-7) GIANT PLATELETS (test Present See_Comment A [Auto mated code = 5908-9) message] The system which generated this result transmitted reference range : (none). The reference range was not used to interpret this result as normal/abnormal . Lab Interpretation Abnormal (test code = 83772-3) [facility] GLUCOSE (AUTOMATED)2020-05-26 01:56:00 Test Item Value Reference Range Interpretation Comments POCT GLU (test code = 2917398173) 202 mg/dL 70-110 H Lab Interpretation (test code = Abnormal 51577-2) [facility] GLUCOSE (AUTOMATED)2020-05-25 21:32:00 Test Item Value Reference Range Interpretation Comments POCT GLU (test code = 3929636955) 118 mg/dL 70-110 H Lab Interpretation (test code = Abnormal 73894-1) [facility] [id number] 17:30:43 1. ?No acute abdominal abnormality.EXAM: XR KUB HISTORY: SBO COMPARISON: None available FINDINGS: Cholecystectomy clips noted.An IVC filter projects over the infrarenal IVC region. The bowel gas distribution is nonspecific and not obstructed.Bones are mildly osteopenic and unremarkable. [facility], Radiant Results Inft User - 05/25/2020 12:31 PM CDTEXAM: XR KUBHISTORY: SBO COMPARISON: None availableFINDIN GS:Cholecystectomy clips noted.An IVC filter projects over the infrarenal IVC region.The bowel gas distribution is nonspecific and not obstructed.Bones are mildly osteopenic and unremarkable.IMPRESSION1. No acute abdominal abnormality. [facility] GLUCOSE (AUTOMATED)2020-05-25 16:47:00 Test Item Value Reference Range Interpretation Comments POCT GLU (test code = 5582030745) 138 mg/dL 70-110 H Lab Interpretation (test code = Abnormal 46256-2) [facility] GLUCOSE (AUTOMATED)2020-05-25 13:03:00 Test Item Value Reference Range Interpretation Comments POCT GLU (test code = 7872899359) 141 mg/dL 70-110 H Lab Interpretation (test code = Abnormal 77416-7) [facility] WITH [id number] 10:14:00 Test Item Value Reference Range Interpretation Comments WBC (test code = See_Comment [Automated 6690-2) message] The sy stem which generated this result transmitted reference range : 4.30 - 11.10 10*3/?L. The reference range was not used to interpret this result as normal/abnormal . RBC (test code = See_Comment [Automated 869-8) message] The sy stem which generated this result transmitted reference range : 3.93 - 5.25 10*6/?L. The reference range was not used to interpret this result as normal/abnormal . HGB (test code = 12.7 g/dL 11.6-15 718-7) HCT (test code = 38.9 % 35.7-45.2 4544-3) MCV (test code = 88.4 fL 80.6-95.5 787-2) MCH (test code = 28.9 pg 25.9-32.8 785-6) MCHC (test code = 32.6 g/dL 31.6-35.1 786-4) RDW-SD (test code = 48.3 fL 39-49.9 94345-8) RDW-CV (test code = 14.9 % 12-15.5 788-0) PLT (test code = See_Comment L [Automated 777-3) message] The sy stem which generated this result transmitted reference range : 166 - 358 10*3/ ?L. The reference r charlotte was not used to interpret this result as normal/abnormal . MPV (test code = 10.8 fL 9.5-12.9 33607-5) IPF % (test code = 6.6 % 1.3-7.7 Platelet count 4814181769) measured by fluorescence method. NRBC/100 WBC (test See_Comment [Automat ed code = 1672364346) message] The system which generated this result transmitted reference range : 0.0 - 10.0 /100 WBCs. The refer ence range was not u sed to interpret th is result as normal/abnormal . NRBC x10^3 (test code <0.01 See_Comment [Auto mated = 2925803029) message] The s ystem which generated this result transmitted reference range : 10*3/?L. The reference range was not used to interpret this result as normal/abnormal . GRAN MAT (NEUT) % 72.6 % (test code = 770-8) IMM GRAN % (test code 0.50 % = 3071442078) LYMPH % (test code = 18.9 % 736-9) MONO % (test code = 6.0 % 5905-5) EOS % (test code = 1.6 % 713-8) BASO % (test code = 0.4 % 706-2) GRAN MAT x10^3(ANC) 3.99 10*3/uL 1.88-7.09 (test code = 3570438669) IMM GRAN x10^3 (test 0.03 10*3/uL 0-0.06 code = 5311211539) LYMPH x10^3 (test code 1.04 10*3/uL 1.32-3.29 L = 731-0) MONO x10^3 (test code 0.33 10*3/uL 0.33-0.92 = 742-7) EOS x10^3 (test code = 0.09 10*3/uL 0.03-0.39 711-2) BASO x10^3 (test code <0.03 0.01-0.07 = 704-7) PLT ESTIMATE (test Decreased Normal A code = 9317-9) GIANT PLATELETS (test Present See_Comment A [Auto mated code = 5908-9) message] The system which generated this result transmitted reference range : (none). The reference range was not used to interpret this result as normal/abnormal . Lab Interpretation Abnormal (test code = 08343-0) [facility] METABOLIC PANEL (NA, K, CL, CO2, GLUCOSE, BUN, CREATININE, CA)2020-05-25 10:00:00 Test Item Value Reference Range Interpretation Comments NA (test code = 138 mmol/L 135-145 6875167959) K (test code = 3.6 mmol/L 3.5-5 0825428708) CL (test code = 106 mmol/L 98-108 0508710829) CO2 TOTAL (test code = 29 mmol/L 23-31 3499832818) AGAP (test code = 2-16 5179429122) BUN (test code = 9 mg/dL 7-23 6409292746) GLUCOSE (test code = 146 mg/dL 70-110 H 9855773170) CREATININE (test code = 0.55 mg/dL 0.5-1.04 4053213930) CALCIUM (test code = 8.0 mg/dL 8.6-10.6 L 5013998664) eGFR Calculation mL/min/1.73m2 (Non-) (test code = 3928286990) eGFR Calculation mL/min/1.73m2 () (test code = 8105633438) JENNIFER (test code = JENNIFER) Association of Glomerular Filtration Rate (GFR) and Staging of Kidney Disease* + --+ --+ ------+| GFR (mL/min/1.73 m2) ?| With Kidney Damage ?| ?Without Kidney Damage+ --------+ --------+ +| ?>90 ?| ?Stage one ?| ? Normal ?+ ---+ ---+ -------+| ?60-89 ?| ?Stage two ?| ? Decreased GFR ? + --+ --+ ------+| ?30-59 ?| ?Stage three ?| ? Stage three ? + --+ --+ ------+| ?15-29 ?| ?Stage four ? | ? Stage four ?+ ---+ ---+ -------+| ?<15 (or dialysis) ? ?| ?Stage five ? | ? Stage five ?+ ---+ ---+ -------+ *Each stage assumes the associated GFR level has been in effect for at least three months. ?Stages 1 to 5, with or without kidney disease, indicate chronic kidney disease. Notes: Determination of stages one and two (with eGFR >59mL/min/1.73 m2) requires estimation of kidney damage for at least three months as defined by structural or functional abnormalities of the kidney, manifested by either:Pathological abnormalities or Markers of kidney damage (including abnormalities in the composition of the blood or urine or abnormalities in imaging tests). Lab Interpretation Abnormal (test code = 84035-6) [facility] GLUCOSE (AUTOMATED)2020-05-25 01:15:00 Test Item Value Reference Range Interpretation Comments POCT GLU (test code = 0893533871) 130 mg/dL 70-110 H Lab Interpretation (test code = Abnormal 32786-0) [facility] GLUCOSE (AUTOMATED)2020-05-24 21:17:00 Test Item Value Reference Range Interpretation Comments POCT GLU (test code = 9544757125) 149 mg/dL 70-110 H Lab Interpretation (test code = Abnormal 26486-1) [facility] GLUCOSE (AUTOMATED)2020-05-24 16:36:00 Test Item Value Reference Range Interpretation Comments POCT GLU (test code = 1111293956) 189 mg/dL 70-110 H Lab Interpretation (test code = Abnormal 76463-5) [facility] GLUCOSE (AUTOMATED)2020-05-24 12:38:00 Test Item Value Reference Range Interpretation Comments POCT GLU (test code = 5246800583) 190 mg/dL 70-110 H Lab Interpretation (test code = Abnormal 67284-2) [facility] WITH [id number] 10:26:00 Test Item Value Reference Range Interpretation Comments WBC (test code = See_Comment [Automated 6690-2) message] The sy stem which generated this result transmitted reference range : 4.30 - 11.10 10*3/?L. The reference range was not used to interpret this result as normal/abnormal . RBC (test code = See_Comment [Automated 789-8) message] The sy stem which generated this result transmitted reference range : 3.93 - 5.25 10*6/?L. The reference range was not used to interpret this result as normal/abnormal . HGB (test code = 13.4 g/dL 11.6-15 718-7) HCT (test code = 40.8 % 35.7-45.2 4544-3) MCV (test code = 88.9 fL 80.6-95.5 787-2) MCH (test code = 29.2 pg 25.9-32.8 785-6) MCHC (test code = 32.8 g/dL 31.6-35.1 786-4) RDW-SD (test code = 49.6 fL 39-49.9 58608-6) RDW-CV (test code = 15.3 % 12-15.5 788-0) PLT (test code = See_Comment L [Automated 777-3) message] The sy stem which generated this result transmitted reference range : 166 - 358 10*3/ ?L. The reference r charlotte was not used to interpret this result as normal/abnormal . MPV (test code = 11.6 fL 9.5-12.9 15849-4) IPF % (test code = 7.9 % 1.3-7.7 H Platelet count 6925434960) measured by fluorescence method. NRBC/100 WBC (test See_Comment [Automat ed code = 1703408123) message] The system which generated this result transmitted reference range : 0.0 - 10.0 /100 WBCs. The refer ence range was not u sed to interpret th is result as normal/abnormal . NRBC x10^3 (test code <0.01 See_Comment [Auto mated = 1936681414) message] The s ystem which generated this result transmitted reference range : 10*3/?L. The reference range was not used to interpret this result as normal/abnormal . GRAN MAT (NEUT) % 70.1 % (test code = 770-8) IMM GRAN % (test code 0.40 % = 5183326277) LYMPH % (test code = 20.9 % 736-9) MONO % (test code = 5.7 % 5905-5) EOS % (test code = 2.3 % 713-8) BASO % (test code = 0.6 % 706-2) GRAN MAT x10^3(ANC) 4.83 10*3/uL 1.88-7.09 (test code = 8328375415) IMM GRAN x10^3 (test 0.03 10*3/uL 0-0.06 code = 9332939906) LYMPH x10^3 (test code 1.44 10*3/uL 1.32-3.29 = 731-0) MONO x10^3 (test code 0.39 10*3/uL 0.33-0.92 = 742-7) EOS x10^3 (test code = 0.16 10*3/uL 0.03-0.39 711-2) BASO x10^3 (test code 0.04 10*3/uL 0.01-0.07 = 704-7) Lab Interpretation Abnormal (test code = 31749-1) [facility] [id number] 10:23:00 Test Item Value Reference Range Interpretation Comments MAGNESIUM (test code = 9102301038) 1.5 mg/dL 1.7-2.4 L Lab Interpretation (test code = Abnormal 53433-1) [facility] METABOLIC PANEL (NA, K, CL, CO2, GLUCOSE, BUN, CREATININE, CA)2020-05-24 10:23:00 Test Item Value Reference Range Interpretation Comments NA (test code = 135 mmol/L 135-145 6265247584) K (test code = 3.6 mmol/L 3.5-5 9007476523) CL (test code = 103 mmol/L 98-108 0972091590) CO2 TOTAL (test code = 27 mmol/L 23-31 1764487919) AGAP (test code = 2-16 0600533572) BUN (test code = 7 mg/dL 7-23 9391719514) GLUCOSE (test code = 186 mg/dL 70-110 H 0651177816) CREATININE (test code = 0.49 mg/dL 0.5-1.04 L 6138074625) CALCIUM (test code = 8.0 mg/dL 8.6-10.6 L 6644624503) eGFR Calculation mL/min/1.73m2 (Non-) (test code = 0587781230) eGFR Calculation mL/min/1.73m2 () (test code = 4587134548) JENNIFER (test code = JENNIFER) Association of Glomerular Filtration Rate (GFR) and Staging of Kidney Disease* + --+ --+ ------+| GFR (mL/min/1.73 m2) ?| With Kidney Damage ?| ?Without Kidney Damage+ --------+ --------+ +| ?>90 ?| ?Stage one ?| ? Normal ?+ ---+ ---+ -------+| ?60-89 ?| ?Stage two ?| ? Decreased GFR ? + --+ --+ ------+| ?30-59 ?| ?Stage three ?| ? Stage three ? + --+ --+ ------+| ?15-29 ?| ?Stage four ? | ? Stage four ?+ ---+ ---+ -------+| ?<15 (or dialysis) ? ?| ?Stage five ? | ? Stage five ?+ ---+ ---+ -------+ *Each stage assumes the associated GFR level has been in effect for at least three months. ?Stages 1 to 5, with or without kidney disease, indicate chronic kidney disease. Notes: Determination of stages one and two (with eGFR >59mL/min/1.73 m2) requires estimation of kidney damage for at least three months as defined by structural or functional abnormalities of the kidney, manifested by either:Pathological abnormalities or Markers of kidney damage (including abnormalities in the composition of the blood or urine or abnormalities in imaging tests). Lab Interpretation Abnormal (test code = 10283-8) [facility] GLUCOSE (AUTOMATED)2020-05-24 02:12:00 Test Item Value Reference Range Interpretation Comments POCT GLU (test code = 4276047442) 186 mg/dL 70-110 H Lab Interpretation (test code = Abnormal 87048-8) [facility] GLUCOSE (AUTOMATED)2020-05-23 22:10:00 Test Item Value Reference Range Interpretation Comments POCT GLU (test code = 0997322487) 196 mg/dL 70-110 H Lab Interpretation (test code = Abnormal 09678-8) [facility] GLUCOSE (AUTOMATED)2020-05-23 20:56:00 Test Item Value Reference Range Interpretation Comments POCT GLU (test code = 8559168073) 243 mg/dL 70-110 H Lab Interpretation (test code = Abnormal 59833-3) [facility]2020-05-23 17:11:00 Test Item Value Reference Range Interpretation Comments POCT GLU (test code = 1680480548) 288 mg/dL 70-110 H Lab Interpretation (test code = Abnormal 91042-7) [facility] [id number] 11:14:00 Test Item Value Reference Range Interpretation Comments PHOSPHORUS (test code = 2110603079) 3.6 mg/dL 2.5-5 Lab Interpretation (test code = Normal 19790-4) [facility] WITH [id number] 11:02:00 Test Item Value Reference Range Interpretation Comments WBC (test code = See_Comment [Automated 6690-2) message] The sy stem which generated this result transmitted reference range : 4.30 - 11.10 10*3/?L. The reference range was not used to interpret this result as normal/abnormal . RBC (test code = See_Comment [Automated 789-8) message] The sy stem which generated this result transmitted reference range : 3.93 - 5.25 10*6/?L. The reference range was not used to interpret this result as normal/abnormal . HGB (test code = 14.3 g/dL 11.6-15 718-7) HCT (test code = 43.7 % 35.7-45.2 4544-3) MCV (test code = 86.7 fL 80.6-95.5 787-2) MCH (test code = 28.4 pg 25.9-32.8 785-6) MCHC (test code = 32.7 g/dL 31.6-35.1 786-4) RDW-SD (test code = 48.1 fL 39-49.9 32089-2) RDW-CV (test code = 15.2 % 12-15.5 788-0) PLT (test code = See_Comment L [Automated 777-3) message] The sy stem which generated this result transmitted reference range : 166 - 358 10*3/ ?L. The reference r charlotte was not used to interpret this result as normal/abnormal . MPV (test code = 11.9 fL 9.5-12.9 20058-4) NRBC/100 WBC (test See_Comment [Automat ed code = 2543686764) message] The system which generated this result transmitted reference range : 0.0 - 10.0 /100 WBCs. The refer ence range was not u sed to interpret th is result as normal/abnormal . NRBC x10^3 (test code <0.01 See_Comment [Auto mated = 6473888424) message] The s ystem which generated this result transmitted reference range : 10*3/?L. The reference range was not used to interpret this result as normal/abnormal . GRAN MAT (NEUT) % 76.3 % (test code = 770-8) IMM GRAN % (test code 0.50 % = 5775818688) LYMPH % (test code = 15.8 % 736-9) MONO % (test code = 5.7 % 5905-5) EOS % (test code = 1.3 % 713-8) BASO % (test code = 0.4 % 706-2) GRAN MAT x10^3(ANC) 7.46 10*3/uL 1.88-7.09 H (test code = 9007239690) IMM GRAN x10^3 (test 0.05 10*3/uL 0-0.06 code = 0224510248) LYMPH x10^3 (test code 1.55 10*3/uL 1.32-3.29 = 731-0) MONO x10^3 (test code 0.56 10*3/uL 0.33-0.92 = 742-7) EOS x10^3 (test code = 0.13 10*3/uL 0.03-0.39 711-2) BASO x10^3 (test code 0.04 10*3/uL 0.01-0.07 = 704-7) Lab Interpretation Abnormal (test code = 86185-2) [facility] HospitalL[facility] Acid Whole [id number] 11:00:00 Test Item Value Reference Range Interpretation Comments LACTIC ACID (test code = 1.43 mmol/L QUE S 1714397930) [facility]2020-05-23 07:23:00 Test Item Value Reference Range Interpretation Comments SARS-CoV-2 Rapid ID NOW Not Detected Not Detected (test code = 35985-4) JENNIFER (test code = JENNIFER) ID NOW COVID-19 Assay is an isothermal nucleic acid amplification test intended for the qualitative detection of nucleic acid from SARS-CoV-2 viral RNA in nasopharyngeal (PATTERN MECHANIC) specimens. It is used under Emergency Use Authorization (EUA) by FDA. The limit of detection (LOD) of the assay is 125 Genome Equivalents/mL. A positive result is indicative of the presence of SARS-CoV-2 RNA. ?Clinical correlation with patient history and other diagnostic information is necessary to determine patient infection status. A negative (Not Detected) result does not preclude SARS-CoV-2 infection. In patients with clinical symptoms and other tests that are consistent with SARS-CoV-2 infection, negative results should be treated as presumptive negative and a new specimen should be tested with alternative PCR molecular test. Invalid: Please collect a new specimen for repeat patient testing if clinically indicated. Lab Interpretation Normal (test code = 80113-9) [facility] W [id number] 05:36:39 Dilated loops of distal jejunum and proximal ileum, to a transition pointin the right lower quadrant in the terminal ileum, suggestive of smallbowel obstruction. There are multiple prior partial smallbowel resections,with reanastomoses. IVC filter in place. RL: 460 AFC: 88053 Electronically signedby Kym Menard MD, PhD at 05/23/2020 12:36 AMOrdering physician: HUGH ERIC Indication: Acute abdominal pain COMPARISON: None TECHNIQUE: Axial images of the abdomen and pelvis are performed followingadministration of intravenous contrast material. Images were reformatted inthe coronal and sagittal plane. CT scan was performed according to ALARA(as low as reasonably achievable) policy. FINDINGS: The lung bases are clear. The patient is status postcholecystectomy. The liver, spleen, adrenal glands and pancreas are withinnormal limits. The kidneys are normal in appearance bilaterally withouthydronephrosis. IVC filter is in place. There is atheroscleroticcalcification of the aorta without sign ificant aneurysmal dilatation. There is no free fluid in the pelvis. The patient is status posthysterectomy. There are mildly dilated distal jejunum and proximal ileum,with some extension of small bowel loops into the patient's anteriorpelvis. There is a relative transition in bowel caliber in the term inalileum in the right lower quadrant (series 3, image 80; series 601, image60), with relative decompression of the colon. There are multiple priorpartial small bowel resections with re-anastomosis.. The appendix is notseparately identified. Bone windows through the abdomen and pelvisdemonstrate no osseous destructive lesion. [facility], Radiant Results Inft User - 05/23/2020 12:37 AM CDTOrdering physician: HUGH Stocktondication: Acute abdominal painCOMPARISON: NoneTECHNIQUE: Axial images of the abdomenand pelvis are performed followingadministration of intravenous contrast material. Images were reform atted inthe coronal and sagittal plane. CT scan was performed according to ALARA(as low as reasonably achievable) policy.FINDINGS: The lung bases are clear. The patient is status postcholecystectomy. The liver, spleen, adrenal glands and pancreas are withinnormal limits. The kidneys are normal in appea benoit bilaterally withouthydronephrosis. IVC filter is in place. There is atheroscleroticcalcification of the aorta without significant aneurysmal dilatation.There is no free fluid in the pelvis. The patient is status posthysterectomy. There are mildly dilated distal jejunum and proximal ileum,with some extension of small bowel loops into the patient's anteriorpelvis. There is a relative transition in bowel caliber in the terminalileum in the right lower quadrant (series 3, image 80; series 601, imag e60), with relative decompression of the colon. There are multiple priorpartial small bowel resections with re-anastomosis.. The appendix is notseparately identified. Bone windows through the abdomen and pelvisdemonstrate no osseous destructive lesion.IMPRESSIONDilated loops of distal jejunum and proximal ileum, to a transition pointin the right lower quadrant in the terminal ileum, suggestive of smallbowel obstruction. There are multiple prior partial small bowel resections,with reanastomoses.IVC filter in place.RL: 460AFC: [id number] [facility]2020-[facility]-13 04:48:00 Test Item Value Reference Range Interpretation Comments APPEARANCE (test code = Clear Clear 8911868853) COLOR (test code = Yellow Yellow 2098678673) PH (test code = 4.8-8.0 3806051766) SP GRAVITY (test code = 1.003-1.030 8859844043) GLU U QUAL (test code = 150 mg/dL Normal A 4979541845) BLOOD (test code = Negative Negative 0490142069) KETONES (test code = Negative Negative 0408084016) PROTEIN (test code = Negative Negative 2887-8) UROBILIN (test code = 2.0 mg/dL Normal A 8445868146) BILIRUBIN (test code = Negative Negative 9212032019) NITRITE (test code = Negative Negative 4221486912) LEUK MICHI (test code = Negative Negative 1371461554) RBC/HPF (test code = See_Comment [Autom ated message] 1342609519) The system [employer] generated this result transmit christopher reference range : 0 - 3 HPF. The refe rence range was not u sed to interpret th is result as normal/abnormal . WBC/HPF (test code = See_Comment [Autom ated message] 7762542968) The system [employer] generated this result transmit christopher reference range : 0 - 5 HPF. The refe rence range was not u sed to interpret th is result as normal/abnormal . BACTERIA (test code = Few Negative A 8060123355) SQ EPITH (test code = See_Comment [Auto mated message] 8999410428) The system [employer] generated this result transmit christopher reference range : <=2 HPF. The refere nce range was not u sed to interpret th is result as normal/abnormal . ASCORBIC ACID (test code Negative = 4364855297) Lab Interpretation (test Abnormal code = 45966-7) [facility]TR[facility] [id number] 04:32:00 Test Item Value Reference Range Interpretation Comments TROPONIN I (test 0.002 ng/mL See_Comment [Automated code = 8489920255) message] The system which generated this result transmitted reference range : <=0.034. The reference range was not used to interpret this result as normal/abnormal . JENNIFER (test code = Equal or Less than JENNIFER) 0.034 ng/ml---Normal ?Note: Cardiac troponin begins to rise 3-4 hours after the onset of ischemia. Repeat in 4-6 hours if the sample was drawn within 3-4 hours of the onset of the symptom and found normal. Between 0.035 and 0.120 ng/mL--- Borderline. Questionable myocardial injury or necrosis ? ?Note: Serial measurement may be necessary to confirm or exclude the diagnosis of myocardial injury or necrosis; Clinical correlation (symptoms, EKGs, imaging studies, and others) required; Repeat in 4-6 hours if clinically indicated. ? Equal or Higher than 0.121 ng/mL---Abnormal. Myocardial Injury or Necrosis Likely ? Biotin has been reported to cause a negative bias, interpret results relative to patient's use of biotin. ? Lab Interpretation Normal (test code = 69871-8) [facility]. METABOLIC PANEL (24452)2020-05-23 04:21:00 Test Item Value Reference Range Interpretation Comments NA (test code = 135 mmol/L 135-145 5096576239) K (test code = 4.1 mmol/L 3.5-5 8425798308) CL (test code = 100 mmol/L 98-108 1104102694) CO2 TOTAL (test code = 30 mmol/L 23-31 2428810224) AGAP (test code = 2-16 8632221326) BUN (test code = 12 mg/dL 7-23 3677996381) GLUCOSE (test code = 302 mg/dL 70-110 H 8761505858) CREATININE (test code = 0.58 mg/dL 0.5-1.04 8838091370) TOTAL BILI (test code = 1.3 mg/dL 0.1-1.1 H 8475984606) CALCIUM (test code = 8.6 mg/dL 8.6-10.6 6942997524) T PROTEIN (test code = 7.2 g/dL 6.3-8.2 9750867988) ALBUMIN (test code = 3.8 g/dL 3.5-5 9019117250) ALK PHOS (test code = 100 U/L 34-122 3852935909) ALTv (test code = 21 U/L 5-35 1742-6) AST(SGOT) (test code = 24 U/L 13-40 8359193008) eGFR Calculation mL/min/1.73m2 (Non-) (test code = 6358282098) eGFR Calculation mL/min/1.73m2 () (test code = 2202346300) JENNIFER (test code = JENNIFER) Association of Glomerular Filtration Rate (GFR) and Staging of Kidney Disease* + --+ --+ ------+| GFR (mL/min/1.73 m2) ?| With Kidney Damage ?| ?Without Kidney Damage+ --------+ --------+ +| ?>90 ?| ?Stage one ?| ? Normal ?+ ---+ ---+ -------+| ?60-89 ?| ?Stage two ?| ? Decreased GFR ? + --+ --+ ------+| ?30-59 ?| ?Stage three ?| ? Stage three ? + --+ --+ ------+| ?15-29 ?| ?Stage four ? | ? Stage four ?+ ---+ ---+ -------+| ?<15 (or dialysis) ? ?| ?Stage five ? | ? Stage five ?+ ---+ ---+ -------+ *Each stage assumes the associated GFR level has been in effect for at least three months. ?Stages 1 to 5, with or without kidney disease, indicate chronic kidney disease. Notes: Determination of stages one and two (with eGFR >59mL/min/1.73 m2) requires estimation of kidney damage for at least three months as defined by structural or functional abnormalities of the kidney, manifested by either:Pathological abnormalities or Markers of kidney damage (including abnormalities in the composition of the blood or urine or abnormalities in imaging tests). Lab Interpretation Abnormal (test code = 63329-8) [facility] WITH [id number] 04:09:00 Test Item Value Reference Range Interpretation Comments WBC (test code = See_Comment [Automated 6690-2) message] The sy stem which generated this result transmitted reference range : 4.30 - 11.10 10*3/?L. The reference range was not used to interpret this result as normal/abnormal . RBC (test code = See_Comment [Automated 789-8) message] The sy stem which generated this result transmitted reference range : 3.93 - 5.25 10*6/?L. The reference range was not used to interpret this result as normal/abnormal . HGB (test code = 14.5 g/dL 11.6-15 718-7) HCT (test code = 43.7 % 35.7-45.2 4544-3) MCV (test code = 86.5 fL 80.6-95.5 787-2) MCH (test code = 28.7 pg 25.9-32.8 785-6) MCHC (test code = 33.2 g/dL 31.6-35.1 786-4) RDW-SD (test code = 47.4 fL 39-49.9 12780-9) RDW-CV (test code = 15.0 % 12-15.5 788-0) PLT (test code = See_Comment L [Automated 777-3) message] The sy stem which generated this result transmitted reference range : 166 - 358 10*3/ ?L. The reference r charlotte was not used to interpret this result as normal/abnormal . MPV (test code = 11.9 fL 9.5-12.9 86689-8) NRBC/100 WBC (test See_Comment [Automat ed code = 4346532990) message] The system which generated this result transmitted reference range : 0.0 - 10.0 /100 WBCs. The refer ence range was not u sed to interpret th is result as normal/abnormal . NRBC x10^3 (test code <0.01 See_Comment [Auto mated = 0801236753) message] The s ystem which generated this result transmitted reference range : 10*3/?L. The reference range was not used to interpret this result as normal/abnormal . GRAN MAT (NEUT) % 78.8 % (test code = 770-8) IMM GRAN % (test code 0.80 % = 4915279669) LYMPH % (test code = 13.9 % 736-9) MONO % (test code = 4.9 % 5905-5) EOS % (test code = 1.1 % 713-8) BASO % (test code = 0.5 % 706-2) GRAN MAT x10^3(ANC) 6.61 10*3/uL 1.88-7.09 (test code = 5179325959) IMM GRAN x10^3 (test 0.07 10*3/uL 0-0.06 H code = 3218281102) LYMPH x10^3 (test code 1.17 10*3/uL 1.32-3.29 L = 731-0) MONO x10^3 (test code 0.41 10*3/uL 0.33-0.92 = 742-7) EOS x10^3 (test code = 0.09 10*3/uL 0.03-0.39 711-2) BASO x10^3 (test code 0.04 10*3/uL 0.01-0.07 = 704-7) Lab Interpretation Abnormal (test code = 67674-7) [facility]IFIC, UP TO 1 HOUR 2020-03-07 14:34:00Referring: Shawnee Alvares for exam:->ORIF right ring fingerFINAL REPORT TECHNIQUE: Fluoroscopic images from orthopedic procedure. INDICATION: Surgery. COMPARISON: None. IMPRESSION:Fluoroscopic images from orthopedic procedure, not obtained by the undersigned. Please refer to operative note for more details of the procedure and findings.Fluoroscopy time: 150 secondsNumber of images: Two Signed: Benjy Sanchez MDReport Verified Date/Time: 03/07/2020 14:34:58 POCT-GLUCOSE [id number] 12:14:00 Test Item Value Reference Range Interpretation Comments POC-GLUCOSE METER 221 mg/dL 70-110 H : Notified RN/MD: TESTED (SERGIO) (test code AT [facility] [address] [place] [address] = 1538) [facility] [address]: Shipyard Helper/Techni melissa ID = [id number] for Antonia Kauffman PT/[id number] 10:10:00 Test Item Value Reference Range Interpretation Comments PROTIME (SERGIO) (test code = 759) < sec 9.8-12.0 INR (SERGIO) (test code = 370) 1.0 INR <=5.9 PARTIAL THROMBOPLASTIN TIME 25.4 sec 25.8-34.5 L (SERGIO) (test code = 760) RECOMMENDED COUMADIN/WARFARIN INR THERAPY RANGESSTANDARD DOSE: 2.0 - 3.0 Includes: PROPHYLAXIS forvenous thrombosis, systemic embolization; TREATMENT for venous thrombosis and/or pulmonary embolus.HIGH RISK: Target INR is 2.5-3.5 for patients with mechanical heart valves.POCT-GLUCOSE [id number] 09:49:00 Test Item Value Reference Range Interpretation Comments POC-GLUCOSE METER 227 mg/dL 70-110 H : TESTED A T [facility]200 ([employer]) (test code CHRISTINE Bee, = 1538) [facility] 7703 0: Shipyard Helper/Techni melissa ID = [id number] for Narv as, Bong US ABDOMEN [id number] 22:16:00IMPRESSION:Fatty cirrhotic liver with portal hypertension and trace ascites. No focal liver lesion. Signed: Cari Cordero MDReport Verified Date/Time: 11/20/2019 16:16:10 Reading Location: [address] Radiology Reading Room L REPORT TECHNIQUE: Grayscale ultrasound of the abdomen. INDICATION: 54-year-old woman with cirrhosis. COMPARISON: Chest, abdomen, and pelvis CT 05/27/2019; abdomen ultrasou nd 12/07/2018. FINDINGS: MIDLINE VASCULATURE: The visualized inferior vena [...] Both kidneys are normal in size. No hydronephrosis.No sonographically evident solid mass lesion. Pedro, Rad Results In - 11/20/2019 4:18 PM CSTFINAL REPORT TECHNIQUE: Grayscale ultrasound of the abdomen. INDICATION: 54-year-old woman with cirrhosis. COMPARISON: Chest, abdomen, and pelvis CT 05/27/2019; abdomen ultrasound 12/07/2018. FINDINGS: MIDLINE VASCULATURE: The visualized inferior vena cava is patent. Portal vein is patentand prominent, measuring 1.4 cm in diameter. The maximum visualized aortic diameter is 2.4 cm. LIVER: The liver is prominent and measures 21.1 cm. The liver is increased in echogenicity with subtle nodular contour. No focal lesions. BILIARY:Gallbladder: Prior cholecystectomy.Common bile duct measures 0 .7 cm, within normal limits. No intrahepatic biliary ductal dilatation. PANCREAS: The pancreas is not clearly visualized due to overlying bowel gas. SPLEEN: The spleen is prominent and measures 16.3 cm. PERITONEUM: Trace ascites. KIDNEYS: Both kidneys are normal in size. No hydronephrosis. No sonographically evident solid mass lesion. IMPRESSIONIMPRESSION:Fatty cirrhotic liver with portal hypertension and trace ascites. No focal liver lesion. Signed: Cari Cordero MDReport Verified Date/Time: 11/20/2019 16:16:10 Reading Location: [address] Radiology Reading Room [facility], ABDOMINAL, [id number] 16:16:00Referring: DOROTA Alvares-CCirrhosis assess for HCCReason for Exam:->CirrhosisFINAL REPORT TECHNIQUE: Grayscale ultrasound of the abdomen. INDICATION: 54-year-old woman with cirrhosis. COMPARISON: Chest, abdomen, and pelvis CT 05/27/2019; abdomen ultrasound12/07/2018. FINDINGS: MIDLINE VASCULATURE: The visualized inferior vena cava is patent. Portal vein is patent and prominent, measuring 1.4 cm in diameter. The maximum visualized aortic diameter is 2.4 cm. LIVER: The liver is prominent and measures 21.1 cm. The liver is increased in echogenicity with siegel btle nodular contour. No focal lesions. BILIARY:Gallbladder: Prior [...] No focal liver lesion. Signed: Cari Cordero MDReport Verified Date/Time: 11/11 16:16:10 Reading Location: [address] Radiology Reading Room TITIS B VIRAL DNA QUANT [id number] 19:54:00 Test Item Value Reference Range Interpretation Comments RESULT/COMMENT HBV DNA not detected HBV DNA not detected (test code = 8976) JENNIFER (test code = This test uses a JENNIFER) Real-Time Polymerase Chain Reaction (RT-PCR) methodology and was performed using ANNY AmpliPrep/ANNY TaqMan HBV Test, v2.0 ([employer]Reportable range for this assay is 20 - 170,000,000 IU per mL (1.30 - 8.23 Log IU/mL). [facility]atoriumHEPATITIS B PCR, [id number] 13:54:00 Test Item Value Reference Range Interpretation Comments HBV RESULT COMPONENT HBV DNA not detected HBV DNA not detected (BEAKER) (test code = 2701) This test uses a Real-Time Polymerase Chain Reaction (RT-PCR) methodology and was performed using ANNY AmpliPrep/ANNY TaqMan HBV Test, v2.0 ([employer]Reportable range for this assay is 20 - 170,000,000 IU per mL (1.30 - 8.23 Log IU/mL).HEPATITIS B SURFACE AB [id number] 04:20:00 Test Item Value Reference Range Interpretation Comments HEP BS ANTIBODY (test See_Comment H [Auto mated code = 1024662) message] The system which generated this result transmit christopher reference range : <8.0 mIU/mL. Th e reference range was not used to interpret this result as normal/abnormal . JENNIFER (test code = JENNIFER) Shipyard Helper ID - DB Lab Interpretation Abnormal (test code = 25727-0) [facility]HEJ[facility]ITALTIS B SURFACE AB [id number] 04:20:00 Test Item Value Reference Range Interpretation Comments HEP BS ANTIBODY (test See_Comment H [Auto mated code = 4329428) message] The system which generated this result transmit christopher reference range : <8.0 mIU/mL. Th e reference range was not used to interpret this result as normal/abnormal . JENNIFER (test code = JENNIFER) Shipyard Helper ID - DB Lab Interpretation Abnormal (test code = 45764-8) [facility] B SURFACE [id number] 04:18:00 Test Item Value Reference Range Interpretation Comments HEP B SURFACE ANTIGEN (REFL) Nonreactive Nonreactive (test code = 7961) JENNIFER (test code = JENNIFER) Shipyard Helper ID - DB [facility]atoriumAFP TUMOR [id number] 04:18:00 Test Item Value Reference Range Interpretation Comments AFP (test code = 3131810) 5.6 ng/mL <10.0 JENNIFER (test code = JENNIFER) Shipyard Helper ID - DB [facility] B SURFACE [id number] 04:18:00 Test Item Value Reference Range Interpretation Comments HEP B SURFACE ANTIGEN (REFL) Nonreactive Nonreactive (test code = 7961) JENNIFER (test code = JENNIFER) Shipyard Helper ID - DB [facility]atoriumAFP TUMOR [id number] 04:18:00 Test Item Value Reference Range Interpretation Comments AFP (test code = 9987736) 5.6 ng/mL <10.0 JENNIFER (test code = JENNIFER) Shipyard Helper ID - DB [facility]HEJ[facility]PITALTIS B SURFACE [id number] 22:20:00 Test Item Value Reference Range Interpretation Comments HEPATITIS B SURFACE ANTIBODY 1064.1 mIU/mL <8.0 H (BEAKER) (test code = 647) Shipyard Helper ID - DBHEPATITIS B SURFACE [id number] 22:18:00 Test Item Value Reference Range Interpretation Comments HEPATITIS B SURFACE ANTIGEN (2) Nonreactive Nonreactive (BEAKER) (test code = 2585) Shipyard Helper ID - DBALPHA FETOPROTEIN (AFP), TUMOR [id number] 22:18:00 Test Item Value Reference Range Interpretation Comments ALPHA-FETOPROTEIN (BEAKER) (test 5.6 ng/mL <10.0 code = 1094) Shipyard Helper ID - DBBASI METABOLIC [id number] 21:50:00 Test Item Value Reference Range Interpretation Comments SODIUM (test code = 136 meq/L 136-145 04271-1) POTASSIUM (test code = 4.1 meq/L 3.5-5.1 6298-4) CHLORIDE (test code = 102 meq/L 98-107 2069-3) CO2 (test code = 26 meq/L 22-29 8-9) BLOOD UREA NITROGEN 10 mg/dL 7-21 (test code = 65710-9) CREATININE (test code 0.76 mg/dL 0.57-1.25 = 91660-1) GLUCOSE (test code = 341 mg/dL 70-105 H 07226-0) CALCIUM (test code = 9.7 mg/dL 8.4-10.2 63307-2) EGFR (test code = mL/min/1.73 [place] [address]-2) NOT ACCURATE CREATININE CLEARANCE IN PREDICTING GLOMERULAR FILTRATION RATE . ESTIMATED GFR I S NOT APPLICABLE FOR DIALYSIS PATIENTS. JENNIFER (test code = JENNIFER) Shipyard Helper ID - BS Lab Interpretation Abnormal (test code = 88658-6) [facility]atoriumHEPATIC FUNCTION [id number] 21:50:00 Test Item Value Reference Range Interpretation Comments TOTAL PROTEIN (test See_Comment [Automa christopher code = 5023110) message] The system which generated this result transmit christopher reference range : 6.0 - 8.3 gm/dL . The reference range was not u sed to interpret th is result as normal/abnormal . ALBUMIN (test code = 4.0 g/dL 3.5-5 1751-7) BILIRUBIN TOTAL (test 1.4 mg/dL 0.2-1.2 H code = 1974-2) BILIRUBIN DIRECT 0.7 mg/dL 0.1-0.5 H (test code = 2020258) ALKALINE PHOSPHATASE 111 U/L 40-150 (test code = 6768-6) AST (SGOT) (test code 38 U/L 5-34 H = 1920-8) ALT (SGPT) (test code 36 U/L 6-55 = 1742-6) JENNIFER (test code = JENNIFER) Shipyard Helper ID - BS Lab Interpretation Abnormal (test code = 16605-0) [facility]atoriumBASIC METABOLIC [id number] 21:50:00 Test Item Value Reference Range Interpretation Comments SODIUM (test code = 136 meq/L 136-145 85569-6) POTASSIUM (test code = 4.1 meq/L 3.5-5.1 6298-4) CHLORIDE (test code = 102 meq/L 98-107 2069-3) CO2 (test code = 26 meq/L 22-29 2028-9) BLOOD UREA NITROGEN 10 mg/dL 7-21 (test code = 96174-7) CREATININE (test code 0.76 mg/dL 0.57-1.25 = 85258-1) GLUCOSE (test code = 341 mg/dL 70-105 H 63079-6) CALCIUM (test code = 9.7 mg/dL 8.4-10.2 10422-8) EGFR (test code = mL/min/1.73 [place] [address]-2) NOT ACCURATE CREATININE CLEARANCE IN PREDICTING GLOMERULAR FILTRATION RATE . ESTIMATED GFR I S NOT APPLICABLE FOR DIALYSIS PATIENTS. JENNIFER (test code = JENNIFER) Shipyard Helper ID - BS Lab Interpretation Abnormal (test code = 39170-4) [facility]atoriumHEPATIC FUNCTION [id number] 21:50:00 Test Item Value Reference Range Interpretation Comments TOTAL PROTEIN (test See_Comment [Automa christopher code = 7138141) message] The system which generated this result transmit christopher reference range : 6.0 - 8.3 gm/dL . The reference range was not u sed to interpret th is result as normal/abnormal . ALBUMIN (test code = 4.0 g/dL 3.5-5 1751-7) BILIRUBIN TOTAL (test 1.4 mg/dL 0.2-1.2 H code = 1975-2) BILIRUBIN DIRECT 0.7 mg/dL 0.1-0.5 H (test code = 9861500) ALKALINE PHOSPHATASE 111 U/L 40-150 (test code = 6768-6) AST (SGOT) (test code 38 U/L 5-34 H = 1920-8) ALT (SGPT) (test code 36 U/L 6-55 = 1742-6) JENNIFER (test code = JENNIFER) Shipyard Helper ID - BS Lab Interpretation Abnormal (test code = 55998-5) [facility]atoriumPROTIME-[id number] 21:33:00 Test Item Value Reference Interpretation Comments Range PROTIME (test code = See_Comment H [Autom ated 84045-1) message] The system which generated this result transmitted reference range : 11.9 - 14.2 seconds. The reference range was not used to interpret this result as normal/abnormal . INR (test code = See_Comment [Automated 48414-8) message] The system which generated this result transmitted reference range : <=5.9. The reference range was not used to interpret this result as normal/abnormal . JENNIFER (test code = Effective 03/08/2019: JENNIFER) PT Reference Range ChangeNew: 11.9-14.2 Previous: 11.7-14.7RECOMMENDED COUMADIN/WARFARIN INR THERAPY RANGESSTANDARD DOSE: 2.0-3.0 Includes: PROPHYLAXIS for venous thrombosis, systemic embolization; TREATMENT for venous thrombosis and/or pulmonary embolus.HIGH RISK: Target INR is 2.5-3.5 for patients wiht mechanical heart valves. Lab Interpretation Abnormal (test code = 12604-2) [facility]atoriumPROTIME-[id number] 21:33:00 Test Item Value Reference Interpretation Comments Range PROTIME (test code = See_Comment H [Autom ated 01857-8) message] The system which generated this result transmitted reference range : 11.9 - 14.2 seconds. The reference range was not used to interpret this result as normal/abnormal . INR (test code = See_Comment [Automated 59869-7) message] The system which generated this result transmitted reference range : <=5.9. The reference range was not used to interpret this result as normal/abnormal . JENNIFER (test code = Effective 03/08/2019: JENNIFER) PT Reference Range ChangeNew: 11.9-14.2 Previous: 11.7-14.7RECOMMENDED COUMADIN/WARFARIN INR THERAPY RANGESSTANDARD DOSE: 2.0-3.0 Includes: PROPHYLAXIS for venous thrombosis, systemic embolization; TREATMENT for venous thrombosis and/or pulmonary embolus.HIGH RISK: Target INR is 2.5-3.5 for patients wiht mechanical heart valves. Lab Interpretation Abnormal (test code = 92885-6) [facility]atoriumHEPATIC FUNCTION [id number] 15:50:00 Test Item Value Reference Range Interpretation [...] (test code = 36 U/L 6-55 347) Shipyard Helper ID - BSBASIC METABOLIC [id number] 15:50:00 Test Item Value Reference Range Interpretation [...] S NOT APPLICABLE FOR DIALYSIS PATIEN TS. Shipyard Helper ID - BSPROTHROMBIN TIME/[id number] 15:33:00 Test Item Value Reference Range Interpretation [...] mechanical heart valves.CBC W/PLT COUNT & AUTO [id number] 15:04:00 Test Item Value Reference Range Interpretation [...] (test code = 2801) CT ABD/PEL WITH QUAFVEZO-[id number] 20:20:00 [place] [address] Patient Name: MARLYS GARNETT MR #: [id number] : 1965 Age/Sex: 54/F Req #: [id number] Adm Physician: Ordered by: TRAY AVENDAÑO MD Report #: [id number] Location: [facility] Room/Bed: Procedure: [id number] HOPD/CT ABD/PEL WITH CONTRAST-HOPD Exam Date: 11/06/19 [...] GAYATRI on 11/06/192022 COPY TO: TRAY AVENDAÑO MDOCT, RETINA - OU - BOTH [id number] 21:47:26OD: 240, no fluidOS: 238, [facility] 2019-10-17 21:47:26OD: 240, no fluidOS: 238, no [facility] OCT, RETINA - OU - BOTH [id number] 21:47:26OD: 240, no fluidOS: 238, no [facility] - [id number] 18:59:00 [place] [address] Patient Name: MARLYS GARNETT MR #: [id number] : 1965 Age/Sex: 54/F Req #: [id number] Adm Physician: Ordered by: ADÁN MARTIN MD Report #: [id number] Location: [facility] Room/Bed: Procedure: [id number] HOPD/FINGER RT - HOPD Exam Date: 09/11/19 Exam Time: 1840 REPORT STATUS: Signed EXAM: FINGER RT - [...] GAYATRI on 09/11/191901 COPY TO: ADÁN MARTIN [id number] 17:12:53 Test Item Value Reference Range Interpretation Comments CRYOGLOBULIN (test NEGATIVE NEGATIVE Prelimina ry result is code = 5117-7) negative for Cryoglobulins; further reports willnot be generated until the study is comple christopher at 7 days. FINAL REPORT (test NEGATIVE NEGATIVE Unless code = 88568) Otherwise Divina cated, All Testing Per formed At: [facility] Pathology Labor atories, [address] [place] [address] Laboratory Dire ctor: Nikhil marti M.D. CLIA Numb er [id number] Cap Accreditation N o. [id number] [facility]ato[id number] 17:12:53 Test Item Value Reference Range Interpretation Comments CRYOGLOBULIN (test NEGATIVE NEGATIVE Prelimina ry result is code = 5117-7) negative for Cryoglobulins; further reports willnot be generated until the study is comple christopher at 7 days. FINAL REPORT (test NEGATIVE NEGATIVE Unless code = 86442) Otherwise Divina cated, All Testing Per formed At: [facility] Path[facility] Labor [facility], [address] [place] [address] Laboratory Dire ctor: Nikhil marti M.D. CLIA Numb er [id number] Cap Accreditation N o. [facility] SanatoriumTdkmbwioEMKMQHUGLYYK4764-47-20 17:12:53 Test Item Value Reference Range Interpretation Comments CRYOGLOBULIN (test NEGATIVE NEGATIVE Prelimina ry result is code = 5117-7) negative for Cryoglobulins; further reports willnot be generated until the study is comple christopher at 7 days. FINAL REPORT (test NEGATIVE NEGATIVE Unless code = 19711) Otherwise Divina cated, All Testing Per formed At: [facility], [address] [place] [address] Laboratory Dire ctor: Nikhil marti M.D. CLIA Numb er [id number] Cap Accreditation N o. [facility]atoriumANTI NEUTROPHIL CYTOPLASMIC [id number] 04:21:50 Test Item Value Reference Range Interpretation Comments NEUTROPHIL CYTOPLASMIC <1:10 See_Comment [Aut omated message] The ANTIBODIES (test code = syst em which generated 83014-9) this result tra nsmitted reference range : <1:10. The reference r charlotte was not used to int erpret this result as normal/abnormal . INTERPRETATION (test (NOTE) Negativ e ANCA test code = 3017) excludes cytopl asmic (C-ANCA) and perinuclear(P-A NCA). Serine protease 3 (PR3) and myeloperoxi dase (MPO) antibodyt esting is not routinely i ndicated. A negative ANC A test is expectedin most healthy individuals; ho wever, it does not comple tely excludethe pres ence of systemic vascul itis. Some vasculitis patients havecontinuousl y positive ANCA w ithout disease activit y, while others withacti ve disease are ANC A negative. For s elected patients with a highclinical siegel spicion for vasculitis, non-reflexed DC 3 and MPO antibodytesting may be indicated. Unless Otherwis e Indicated, All Testing Performed At: [facility], [address] [place] [address] Research Engineer: Umair Hidalgo Numbe r [id number] Cap Accreditation N o. [facility]atoriumANTI NEUTROPHIL CYTOPLASMIC [id number] 04:21:50 Test Item Value Reference Range Interpretation Comments NEUTROPHIL CYTOPLASMIC <1:10 See_Comment [Aut omated message] The ANTIBODIES (test code = syst em which generated 30939-5) this result tra nsmitted reference range : <1:10. The reference r charlotte was not used to int erpret this result as normal/abnormal . INTERPRETATION (test (NOTE) Negativ e ANCA test code = 3017) excludes cytopl asmic (C-ANCA) and perinuclear(P-A NCA). Serine protease 3 (PR3) and myeloperoxi dase (MPO) antibodyt esting is not routinely i ndicated. A negative ANC A test is expectedin most healthy individuals; ho wever, it does not comple tely excludethe pres ence of systemic vascul itis. Some vasculitis patients havecontinuousl y positive ANCA w ithout disease activit y, while others withacti ve disease are ANC A negative. For s elected patients with a highclinical siegel spicion for vasculitis, non-reflexed DC 3 and MPO antibodytesting may be indicated. Unless Otherwis e Indicated, All Testing Performed At: [facility], [address] [place] [address] Research Engineer: Umair Hidalgo [id number] Cap Accreditation [place] o. [id number] [facility]atoriumANTI NEUTROPHIL CYTOPLASMIC [id number] 04:21:50 Test Item Value Reference Range Interpretation Comments NEUTROPHIL CYTOPLASMIC <1:10 See_Comment [Aut omated message] The ANTIBODIES (test code = syst em which generated 28704-3) this result tra nsmitted reference range : <1:10. The reference r charlotte was not used to int erpret this result as normal/abnormal . INTERPRETATION (test (NOTE) Negativ e ANCA test code = 3017) excludes cytopl asmic (C-ANCA) and perinuclear(P-A NCA). Serine protease 3 (PR3) and myeloperoxi dase (MPO) antibodyt esting is not routinely i ndicated. A negative ANC A test is expectedin most healthy individuals; ho wever, it does not comple tely excludethe pres ence of systemic vascul itis. Some vasculitis patients havecontinuousl y positive ANCA w ithout disease activit y, while others withacti ve disease are ANC A negative. For s elected patients with a highclinical siegel spicion for vasculitis, non-reflexed DC 3 and MPO antibodytesting may be indicated. Unless Otherwis e Indicated, All Testing Performed At: Clinical Pathol ogy [facility], [address] [place] [address] Research Engineer: Umair HidalgoIA Numbe r [id number] Cap Accreditation N o. [facility] MODIFIED [id number] 11:01:14 Test Item Value Reference Range Interpretation Comments ERYTHROCYTE See_Comment H Unless SEDIMENTATION RATE Otherwise Indicated, (test code = 4537-7) All Juhi ting Performed At: [facility] Pathology [facility], [address] [place] [address] Laboratory Dire ctor: Umair Hidalgo Num dieter [id number] Cap Accreditation N o. [Auto mated message] The sy stem which generated this result transmit christopher reference range : 0 - 20 MM/HOUR. The reference range was not used to int erpret this result as normal/abnormal . Lab Interpretation Abnormal (test code = 46150-0) [facility] MODIFIED [id number] 11:01:14 Test Item Value Reference Range Interpretation Comments ERYTHROCYTE See_Comment H Unless SEDIMENTATION RATE Otherwise Indicated, (test code = 4537-7) All Juhi ting Performed At: [facility] Pathology [facility], [address] [place] [address] Laboratory Dire ctor: Umair Hidalgo Num dieter [id number] Cap Accreditation N o. [Auto mated message] The sy stem which generated this result transmit christopher reference range : 0 - 20 MM/HOUR. The reference range was not used to int erpret this result as normal/abnormal . Lab Interpretation Abnormal (test code = 83208-6) [facility] MODIFIED [id number] 11:01:14 Test Item Value Reference Range Interpretation Comments ERYTHROCYTE See_Comment H Unless SEDIMENTATION RATE Otherwise Indicated, (test code = 4537-7) All Juhi ting Performed At: [facility], [address] [place] [address] Laboratory Dire ctor: Nikhil marti M.D. CLIA Num dieter [id number] Cap Accreditation N o. [Auto mated message] The sy stem which generated this result transmit christopher reference range : 0 - 20 MM/HOUR. The reference range was not used to int erpret this result as normal/abnormal . Lab Interpretation Abnormal (test code = 97322-1) [facility]atoriumCK2019-11-21 09:43:00 Test Item Value Reference Range Interpretation Comments CREATINE KINASE TOTAL 60 U/L 28-176 Unless Otherwise (test code = 2157-6) Indicat ed, All Testing Performed At: [employer], [address] [place] [address] Laboratory Di terra: Nikhil marti M.D. CLIA Number [id number] Cap Accreditati on No. [facility]atoriumC-REACTIVE [id number] 09:43:00 Test Item Value Reference Range Interpretation Comments C-REACTIVE PROTEIN See_Comment H Unless (test code = 1988-5) Otherwi se Indicated, All Testing Per formed At: Clin [facility] Path[facility], [address] [place] [address] Laboratory Dire ctor: Nikhil marti M.D. CLIA Num dieter [id number] Cap Accreditation N o. [Auto mated message] The sy stem which generated this result transmit christopher reference range : <0.5 MG/DL. The refe rence range was not u sed to interpret this result as normal/abnor mal. Lab Interpretation Abnormal (test code = 90340-5) [facility] [id number] 09:43:00 Test Item Value Reference Range Interpretation Comments C3 COMPLEMENT (test See_Comment [Automa christopher message] The code = 4491-7) system which generated this result tra nsmitted reference range : 90 - 180 MG/DL. The refe rence range was not u sed to interpret this result as normal/abnormal . C4 COMPLEMENT (test See_Comment Unless Otherwise code = 4498-2) Indicated, Al l Testing Performed At: [facility], [address] [place] [address] Laboratory D irector: Nikhil marti M.D. CLIA Number [id number] Cap Accreditation N o. [Auto mated message] The sy stem which generated this result transmitted ref erence range: 10 - 40 MG/DL. The reference range was not used to interpr et this result as normal/abnormal . [facility]2019-[facility] 09:43:00 Test Item Value Reference Range Interpretation Comments CREATINE KINASE TOTAL 60 U/L 28-176 Unless Otherwise (test code = 2157-6) Indicat ed, All Testing Performed At: [facility], [address] [place] [address] Laboratory Di terra: Nkihil marti M.D. CLIA Number [id number] Cap Accreditati on No. [facility]-REACTIVE [id number] 09:43:00 Test Item Value Reference Range Interpretation Comments C-REACTIVE PROTEIN See_Comment H Unless (test code = 1988-) Otherwi se Indicated, All Testing Per formed At: [facility], [address] [place] [address] Laboratory Dire ctor: Nikhil marti M.D. CLIA Num dieter [id number] Cap Accreditation N o. [Auto mated message] The sy stem which generated this result transmit christopher reference range : <0.5 MG/DL. The refe rence range was not u sed to interpret this result as normal/abnor mal. Lab Interpretation Abnormal (test code = 34563-6) [facility] AND [id number] 09:43:00 Test Item Value Reference Range Interpretation Comments C3 COMPLEMENT (test See_Comment [Automa christopher message] The code = 4491-7) system which generated this result tra nsmitted reference range : 90 - 180 MG/DL. The refe rence range was not u sed to interpret this result as normal/abnormal . C4 COMPLEMENT (test See_Comment Unless Otherwise code = 4498-2) Indicated, Al l Testing Performed At: [facility], [address] [place] [address] Laboratory D irector: Nikhil marti M.D. CLIA Number [id number] Cap Accreditation N o. [id number] [Auto mated message] The sy stem which generated this result transmitted ref erence range: 10 - 40 MG/DL. The reference range was not used to interpr et this result as normal/abnormal . [facility]-21 09:43:00 Test Item Value Reference Range Interpretation Comments CREATINE KINASE TOTAL 60 U/L 28-176 Unless Otherwise (test code = 2157-6) Indicat ed, All Testing Performed At: [facility], [address] [place] [address] Laboratory Di terra: Nikhil marti M.D. CLIA Number [id number] Cap Accreditati on No. [facility]ACTIVE [id number] 09:43:00 Test Item Value Reference Range Interpretation Comments C-REACTIVE PROTEIN See_Comment H Unless (test code = 1988-) Otherwi se Indicated, All Testing Per formed At: [facility], [address] [place] [address] Laboratory Dire ctor: Nikhil marti M.D. CLIA Num dieter [id number] Cap Accreditation N o. [Auto mated message] The sy stem which generated this result transmit christopher reference range : <0.5 MG/DL. The refe rence range was not u sed to interpret this result as normal/abnor mal. Lab Interpretation Abnormal (test code = 04503-1) [facility] AND [id number] 09:43:00 Test Item Value Reference Range Interpretation Comments C3 COMPLEMENT (test See_Comment [Automa christopher message] The code = 4491-7) system which generated this result tra nsmitted reference range : 90 - 180 MG/DL. The refe rence range was not u sed to interpret this result as normal/abnormal . C4 COMPLEMENT (test See_Comment Unless Otherwise code = 4498-2) Indicated, Al l Testing Performed At: [facility], [address] [place] [address] Laboratory D irector: Nikhil marti M.D. CLIA Number [id number] Cap Accreditation N o. [id number] [Auto mated message] The sy stem which generated this result transmitted ref erence range: 10 - 40 MG/DL. The reference range was not used to interpr et this result as normal/abnormal . [facility] [id number] 09:34:20 Test Item Value Reference Range Interpretation Comments GLUCOSE (test code = See_Comment H [Autom ated message] 2345-7) The system [employer] generated this result transmitted ref erence range: 70 - 99 MG/DL. The reference r charlotte was not used to interpret this result as normal/abnor mal. BLOOD UREA NITROGEN See_Comment [Automa christophre message] (test code = 3091-6) The sys tem which generated this result transmitted ref erence range: 6 - 20 M G/DL. The reference r charlotte was not used to interpret this result as normal/abnor mal. CREATININE (test code = See_Comment [Au tomated message] 2160-0) The system [employer] generated this result transmitted ref erence range: 0.60 - 1 .30 MG/DL. The refe rence range was not u sed to interpret this result as normal/abnor mal. EGFR AA (test code = See_Comment [Autom ated message] 43801-8) The system [employer] generated this result transmitted ref erence range: >60 ML/MIN/1.73. Th e reference range was not used to int erpret this result as normal/abnormal . EGFR (test code = See_Comment [Automate d message] 09872-4) The system [employer] generated this result transmitted ref erence range: >60 ML/MIN/1.73. Th e reference range was not used to int erpret this result as normal/abnormal . BUN/CREAT RATIO (test See_Comment [Auto mated message] code = 3097-3) The system [employer] generated this result transmitted ref erence range: 6 - 28 R ATIO. The reference r charlotte was not used to interpret this result as normal/abnor mal. SODIUM (test code = See_Comment [Automa christopher message] 2951-2) The system [employer] generated this result transmitted ref erence range: 133 - 14 6 MEQ/L. The refe rence range was not u sed to interpret this result as normal/abnor mal. POTASSIUM (test code = See_Comment [Aut omated message] 2823-3) The system [employer] generated this result transmitted ref erence range: 3.5 - 5. 4 MEQ/L. The refe rence range was not u sed to interpret this result as normal/abnor mal. CHLORIDE (test code = See_Comment [Auto mated message] 0155-0) The system [facility] generated this result transmitted ref erence range: 95 - 107 MEQ/L. The reference r charlotte was not used to interpret this result as normal/abnor mal. CO2 (test code = See_Comment [Automated message] 1963-8) The system [employer] generated this result transmitted ref erence range: 19 - 31 MEQ/L. The reference r charlotte was not used to interpret this result as normal/abnor mal. CALCIUM (test code = See_Comment [Autom ated message] 31669-9) The system [facility] generated this result transmitted ref erence range: 8.5 - 10 .5 MG/DL. The refe rence range was not u sed to interpret this result as normal/abnor mal. PROTEIN TOTAL (test See_Comment [Automa christopher message] code = 2885-2) The system [facility] generated this result transmitted ref erence range: 6.1 - 8. 3 G/DL. The reference r charlotte was not used to interpret this result as normal/abnor mal. ALBUMIN (test code = See_Comment [Autom ated message] 00971-2) The system [facility] generated this result transmitted ref erence range: 3.5 - 5. 2 G/DL. The reference r charlotte was not used to interpret this result as normal/abnor mal. GLOBULINS, SERUM, TOTAL See_Comment H [Au tomated message] (test code = 27239-8) The sy stem which generated this result transmitted ref erence range: 1.9 - 3. 7 G/DL. The reference r charlotte was not used to interpret this result as normal/abnor mal. A/G RATIO (test code = See_Comment [Aut omated message] 5269-0) The system [facility] generated this result transmitted ref erence range: 1.0 - 2. 6 RATIO. The refe rence range was not u sed to interpret this result as normal/abnor mal. BILIRUBIN TOTAL (test See_Comment H [Auto mated message] code = 1975-2) The system [facility] generated this result transmitted ref erence range: <=1.2 MG /DL. The reference r charlotte was not used to interpret this result as normal/abnor mal. ALKALINE PHOSPHATASE 93 U/L 40-133 (test code = 6768-6) AST (SGOT) (test code = 27 U/L 9-40 1920-8) ALT (SGPT) (test code = 24 U/L 5-40 Unless 1744-2) Otherwise Indic ated, All Testing Per formed At: [facility], [address] [place] [address] Laboratory Dire ctor: Nikhil marti M.D. CLIA Num dieter [id number] Cap Accreditation [place] o. [id number] Lab Interpretation Abnormal (test code = 36175-1) [facility] [id number] 09:34:20 Test Item Value Reference Range Interpretation Comments GLUCOSE (test code = See_Comment H [Autom ated message] 2345-7) The system [employer] generated this result transmitted ref erence range: 70 - 99 MG/DL. The reference r charlotte was not used to interpret this result as normal/abnor mal. BLOOD UREA NITROGEN See_Comment [Automa christopher message] (test code = 3091-6) The [facility] tem which generated this result transmitted ref erence range: 6 - 20 M G/DL. The reference r charlotte was not used to interpret this result as normal/abnor mal. CREATININE (test code = See_Comment [Au tomated message] 2160-0) The system [employer] generated this result transmitted ref erence range: 0.60 - 1 .30 MG/DL. The refe rence range was not u sed to interpret this result as normal/abnor mal. EGFR AA (test code = See_Comment [Autom ated message] 37475-3) The system [employer] generated this result transmitted ref erence range: >60 ML/MIN/1.73. Th e reference range was not used to int erpret this result as normal/abnormal . EGFR (test code = See_Comment [Automate d message] 39570-7) The system [facility] generated this result transmitted ref erence range: >60 ML/MIN/1.73. Th e reference range was not used to int erpret this result as normal/abnormal . BUN/CREAT RATIO (test See_Comment [Auto mated message] code = 3097-3) The system [facility] generated this result transmitted ref erence range: 6 - 28 R ATIO. The reference r charlotte was not used to interpret this result as normal/abnor mal. SODIUM (test code = See_Comment [Automa christopher message] 2951-2) The system [facility] generated this result transmitted ref erence range: 133 - 14 6 MEQ/L. The refe rence range was not u sed to interpret this result as normal/abnor mal. POTASSIUM (test code = See_Comment [Aut omated message] 4143-3) The system [facility] generated this result transmitted ref erence range: 3.5 - 5. 4 MEQ/L. The refe rence range was not u sed to interpret this result as normal/abnor mal. CHLORIDE (test code = See_Comment [Auto mated message] 7365-0) The system [facility] generated this result transmitted ref erence range: 95 - 107 MEQ/L. The reference r charlotte was not used to interpret this result as normal/abnor mal. CO2 (test code = See_Comment [Automated message] 1963-8) The system [facility] generated this result transmitted ref erence range: 19 - 31 MEQ/L. The reference r charlotte was not used to interpret this result as normal/abnor mal. CALCIUM (test code = See_Comment [Autom ated message] 65277-1) The system [facility] generated this result transmitted ref erence range: 8.5 - 10 .5 MG/DL. The refe rence range was not u sed to interpret this result as normal/abnor mal. PROTEIN TOTAL (test See_Comment [Automa christopher message] code = 2885-2) The system [facility] generated this result transmitted ref erence range: 6.1 - 8. 3 G/DL. The reference r charlotte was not used to interpret this result as normal/abnor mal. ALBUMIN (test code = See_Comment [Autom ated message] 78342-5) The system [employer] generated this result transmitted ref erence range: 3.5 - 5. 2 G/DL. The reference r charlotte was not used to interpret this result as normal/abnor mal. GLOBULINS, SERUM, TOTAL See_Comment H [Au tomated message] (test code = 20675-8) The sy stem which generated this result transmitted ref erence range: 1.9 - 3. 7 G/DL. The reference r charlotte was not used to interpret this result as normal/abnor mal. A/G RATIO (test code = See_Comment [Aut omated message] 1759-0) The system [employer] generated this result transmitted ref erence range: 1.0 - 2. 6 RATIO. The refe rence range was not u sed to interpret this result as normal/abnor mal. BILIRUBIN TOTAL (test See_Comment H [Auto mated message] code = 1975-2) The system [facility] generated this result transmitted ref erence range: <=1.2 MG /DL. The reference r charlotte was not used to interpret this result as normal/abnor mal. ALKALINE PHOSPHATASE 93 U/L 40-133 (test code = 6768-6) AST (SGOT) (test code = 27 U/L 9-40 1920-8) ALT (SGPT) (test code = 24 U/L 5-40 Unless 1744-2) Otherwise Indic ated, All Testing Per formed At: [facility], [address] [place] [address] Laboratory Dire ctor: Nikhil marti M.D. CLIA Num dieter [id number] Cap Accreditation [place] o. [id number] Lab Interpretation Abnormal (test code = 25682-9) [facility] [id number] 09:34:20 Test Item Value Reference Range Interpretation Comments GLUCOSE (test code = See_Comment H [Autom ated message] 2345-7) The system [employer] generated this result transmitted ref erence range: 70 - 99 MG/DL. The reference r charlotte was not used to interpret this result as normal/abnor mal. BLOOD UREA NITROGEN See_Comment [Automa christopher message] (test code = 3091-6) The sys tem which generated this result transmitted ref erence range: 6 - 20 M G/DL. The reference r charlotte was not used to interpret this result as normal/abnor mal. CREATININE (test code = See_Comment [Au tomated message] 2160-0) The system [employer] generated this result transmitted ref erence range: 0.60 - 1 .30 MG/DL. The refe rence range was not u sed to interpret this result as normal/abnor mal. EGFR AA (test code = See_Comment [Autom ated message] 22402-5) The system [employer] generated this result transmitted ref erence range: >60 ML/MIN/1.73. Th e reference range was not used to int erpret this result as normal/abnormal . EGFR (test code = See_Comment [Automate d message] 52269-7) The system [employer] generated this result transmitted ref erence range: >60 ML/MIN/1.73. Th e reference range was not used to int erpret this result as normal/abnormal . BUN/CREAT RATIO (test See_Comment [Auto mated message] code = 3097-3) The system [facility] generated this result transmitted ref erence range: 6 - 28 R ATIO. The reference r charlotte was not used to interpret this result as normal/abnor mal. SODIUM (test code = See_Comment [Automa christopher message] 2951-2) The system [employer] generated this result transmitted ref erence range: 133 - 14 6 MEQ/L. The refe rence range was not u sed to interpret this result as normal/abnor mal. POTASSIUM (test code = See_Comment [Aut omated message] 8113-3) The system [employer] generated this result transmitted ref erence range: 3.5 - 5. 4 MEQ/L. The refe rence range was not u sed to interpret this result as normal/abnor mal. CHLORIDE (test code = See_Comment [Auto mated message] 7265-0) The system [employer] generated this result transmitted ref erence range: 95 - 107 MEQ/L. The reference r charlotte was not used to interpret this result as normal/abnor mal. CO2 (test code = See_Comment [Automated message] 1962-8) The system [employer] generated this result transmitted ref erence range: 19 - 31 MEQ/L. The reference r charlotte was not used to interpret this result as normal/abnor mal. CALCIUM (test code = See_Comment [Autom ated message] 59986-4) The system [facility] [employer] generated this result transmitted ref erence range: 8.5 - 10 .5 MG/DL. The refe rence range was not u sed to interpret this result as normal/abnor mal. PROTEIN TOTAL (test See_Comment [Automa christopher message] code = 2885-2) The system [facility] generated this result transmitted ref erence range: 6.1 - 8. 3 G/DL. The reference r charlotte was not used to interpret this result as normal/abnor mal. ALBUMIN (test code = See_Comment [Autom ated message] 88388-1) The system [facility] generated this result transmitted ref erence range: 3.5 - 5. 2 G/DL. The reference r charlotte was not used to interpret this result as normal/abnor mal. GLOBULINS, SERUM, TOTAL See_Comment H [Au tomated message] (test code = 45143-5) The sy stem which generated this result transmitted ref erence range: 1.9 - 3. 7 G/DL. The reference r charlotte was not used to interpret this result as normal/abnor mal. A/G RATIO (test code = See_Comment [Aut omated message] 1759-0) The system [facility] [employer] generated this result transmitted ref erence range: 1.0 - 2. 6 RATIO. The refe rence range was not u sed to interpret this result as normal/abnor mal. BILIRUBIN TOTAL (test See_Comment H [Auto mated message] code = 1974-2) The system [facility] generated this result transmitted ref erence range: <=1.2 MG /DL. The reference r charlotte was not used to interpret this result as normal/abnor mal. ALKALINE PHOSPHATASE 93 U/L 40-133 (test code = 6768-6) AST (SGOT) (test code = 27 U/L 9-40 1920-8) ALT (SGPT) (test code = 24 U/L 5-40 Unless 1744-2) Otherwise Indic ated, All Testing Per formed At: [facility], [address] [facility], [facility] [address] Laboratory Dire ctor: Nikhil marti M.D. MARIA GUADALUPE Num dieter [id number] Cap Accreditation [place]. [id number] Lab Interpretation Abnormal (test code = 05880-8) [facility]AUTO DIFF WITH [id number] 09:32:51 Test Item Value Reference Range Interpretation Comments WHITE BLOOD CELL COUNT See_Comment [Aut omated message] (test code = 75233-3) The sy stem which generated this result transmitted ref erence range: 4.0 - 11 .0 K/UL. The reference r charlotte was not used to int erpret this result as normal/abnormal . RED BLOOD CELL COUNT See_Comment [Autom ated message] (test code = 28640-7) The sy stem which generated this result transmitted ref erence range: 3.80 - 5 .10 M/UL. The refer ence range was not u sed to interpret this result as normal/abnor mal. HEMOGLOBIN (test code = See_Comment [Au tomated message] 718-7) The system whic h generated this result transmitted ref erence range: 11.5 - 1 5.5 G/DL. The refer ence range was not u sed to interpret this result as normal/abnor mal. HEMATOCRIT (test code = 40.2 % 34-45 08984-0) MEAN CORPUSCULAR VOLUME 83.2 fL 80-100 (test code = 59205-0) MEAN CORPUSCULAR 28.4 PG 27-34 HEMOGLOBIN (test code = 29401-8) MEAN CORPUSCULAR See_Comment [Automated message] HEMOGLOBIN CONC (test The sy stem which code = 51388-4) generated th is result transmitted ref erence range: 32.0 - 3 5.5 G/DL. The refer ence range was not u sed to interpret this result as normal/abnor mal. RED CELL DISTRIBUTION 14.4 % 11-15 WIDTH (test code = 19192-3) NEUTROPHILS % (test 67.7 % 40-74 code = 20918-9) LYMPHOCYTES % (test 22.8 % 19-48 code = 69688-9) MONOCYTES % (test code 6.5 % 4-13 = 33073-4) EOSINOPHILS % (test 2.4 % 0-7 code = 12267-2) BASOPHILS % (test code 0.6 % 0-2 = 86813-3) PLATELET COUNT (test See_Comment Unless code = 76574-6) Otherwise In dicated, All Testing Per formed At: [facility], [address] [place] [address], [place] [address] Laboratory Dire ctor: Nikhil marti M.D. CLIA Numb er [id number] Cap Accreditation N o. [id number] [Auto mated message] The sy stem which generated this result transmit christopher reference range : 130 - 400 K/UL. The r eference range was not u sed to interpret this result as normal/abnor mal. [facility] W/AUTO DIFF WITH [id number] 09:32:51 Test Item Value Reference Range Interpretation Comments WHITE BLOOD CELL COUNT See_Comment [Aut omated message] (test code = 51041-9) The sy stem which generated this result transmitted ref erence range: 4.0 - 11 .0 K/UL. The reference r charlotte was not used to int erpret this result as normal/abnormal . RED BLOOD CELL COUNT See_Comment [Autom ated message] (test code = 75327-4) The sy stem which generated this result transmitted ref erence range: 3.80 - 5 .10 M/UL. The refer ence range was not u sed to interpret this result as normal/abnor mal. HEMOGLOBIN (test code = See_Comment [Au tomated message] 718-7) The system whic h generated this result transmitted ref erence range: 11.5 - 1 5.5 G/DL. The refer ence range was not u sed to interpret this result as normal/abnor mal. HEMATOCRIT (test code = 40.2 % 34-45 50689-0) MEAN CORPUSCULAR VOLUME 83.2 fL 80-100 (test code = 33617-0) MEAN CORPUSCULAR 28.4 PG 27-34 HEMOGLOBIN (test code = 00789-0) MEAN CORPUSCULAR See_Comment [Automated message] HEMOGLOBIN CONC (test The sy stem which code = 50985-5) generated th is result transmitted ref erence range: 32.0 - 3 5.5 G/DL. The refer ence range was not u sed to interpret this result as normal/abnor mal. RED CELL DISTRIBUTION 14.4 % 11-15 WIDTH (test code = 29896-5) NEUTROPHILS % (test 67.7 % 40-74 code = 48770-4) LYMPHOCYTES % (test 22.8 % 19-48 code = 00241-7) MONOCYTES % (test code 6.5 % 4-13 = 70503-1) EOSINOPHILS % (test 2.4 % 0-7 code = 72615-1) BASOPHILS % (test code 0.6 % 0-2 = 29472-0) PLATELET COUNT (test See_Comment Unless code = 50736-5) Otherwise In dicated, All Testing Per formed At: [facility], [address] [place] [address] Laboratory Dire ctor: Nikhil marti M.D. CLIA Numb er [id number] Cap Accreditation [place] o. [id number] [Auto mated message] The sy stem which generated this result transmit christopher reference range : 130 - 400 K/UL. The r eference range was not u sed to interpret this result as normal/abnor mal. [facility] W/AUTO DIFF WITH [id number] 09:32:51 Test Item Value Reference Range Interpretation Comments WHITE BLOOD CELL COUNT See_Comment [Aut omated message] (test code = 95773-1) The sy stem which generated this result transmitted ref erence range: 4.0 - 11 .0 K/UL. The reference r charlotte was not used to int erpret this result as normal/abnormal . RED BLOOD CELL COUNT See_Comment [Autom ated message] (test code = 99000-6) The sy stem which generated this result transmitted ref erence range: 3.80 - 5 .10 M/UL. The refer ence range was not u sed to interpret this result as normal/abnor mal. HEMOGLOBIN (test code = See_Comment [Au tomated message] 718-7) The system whic h generated this result transmitted ref erence range: 11.5 - 1 5.5 G/DL. The refer ence range was not u sed to interpret this result as normal/abnor mal. HEMATOCRIT (test code = 40.2 % 34-45 38985-4) MEAN CORPUSCULAR VOLUME 83.2 fL 80-100 (test code = 20528-4) MEAN CORPUSCULAR 28.4 PG 27-34 HEMOGLOBIN (test code = 73666-3) MEAN CORPUSCULAR See_Comment [Automated message] HEMOGLOBIN CONC (test The sy stem which code = 64283-6) generated th is result transmitted ref erence range: 32.0 - 3 5.5 G/DL. The refer ence range was not u sed to interpret this result as normal/abnor mal. RED CELL DISTRIBUTION 14.4 % 11-15 WIDTH (test code = 46002-7) NEUTROPHILS % (test 67.7 % 40-74 code = 61280-8) LYMPHOCYTES % (test 22.8 % 19-48 code = 25387-3) MONOCYTES % (test code 6.5 % 4-13 = 63941-9) EOSINOPHILS % (test 2.4 % 0-7 code = 99927-1) BASOPHILS % (test code 0.6 % 0-2 = 72839-4) PLATELET COUNT (test See_Comment Unless code = 24047-4) Otherwise In dicated, All Testing Per formed At: [facility] Pathology Labor atories, [address] [place] [address] Laboratory Dire ctor: Nikhil marti M.D. CLIA Numb er [id number] Cap Accreditation N o. 44444-40 [Auto mated message] The sy stem which generated this result transmit christopher reference range : 130 - 400 K/UL. The r eference range was not u sed to interpret this result as normal/abnor mal. [facility] ANK/BRAC INDICES, SINGLE [id number] 01:40:38 [facility] ABI Study Report Name:MARLYS GARNETTMRN: [id number]/Encounter No:[id number]: 1548-05-17Zqg: 54Gender: FStudy Date: Aug 17, 2019Study Time: 09:58 AMReading Group: Narendra Perez, MDReferring Group: Unassigned [facility]aleing Phys: MALORIE SLAUGHTER MDSonographer: Olesya Castaneda RVTLocation: Vascular Lab Study Quality: ExcellentDiagnosis Code: (I73.9) Peripheral vascular disease, unspecified(M79.605) Left leg pain(R20.0, R20.2) Numbness and tingling of both feetProcedure Code: 51331 Limited bilateral noninvasive physiologicstudies of upper or lower extremity.Indications: Focal stabbing pain to the left distal lateral lowerleg, which has resolved and now has similar pain on the left lateralupper thigh. Numbness and tingling of toes of left foot and mild inthe right great toe. ABI:Right Post Post Post Rest 1 min 1 min Immed. Waveform Pressure(mmHg) (mmHg) (mmHg) (mmHg) Brachial 130 Post Tibial Triphasic 164 Dors Pedis Triphasic 154 FLAKO 1.17 Toe Pressure 105 TBI 0.75 Left Post Post Post Rest 1 min 1 min Immed. Waveform Pressure (mmHg) (mmHg) (mmHg) (mmHg) Brachial 140 Post Tibial Triphasic 162 Dors Pedis Triphasic 158 FLAKO 1.16 Toe Pressure 144 TBI 1.03 Findings:Tr iphasic Doppler signals in the bilateral dorsalis pedis and distalTACL TAMIR 2019-08-17 Page 1 of 2Studycast- www.[facility] south campustudycast.[facility] ABI Study Report posterior tibial arteries. Normal bilateral great toe waveforms. IMPRESSION:Normal Bilateral ankle brachial indices.Normal Bilateral Toe brachial indices.Approved By: Narendra Rivero at: August 24, 2019 07:40 PM ESTElectronically Signed on StudyezequielALEXCL GARNETT 2019-08-17 Page 2 of 2StudTransporeon - www.Colibri IOtantolinCompetitive Power Venturesast.Omero Major In Interconnect - 08/24/2019 6:41 PM [facility] ABI Study Report Name: MARLYS GARNETTMRN: [id number]/Encounter No:[id number]: [id number]: 54Gender: FStudy Date: Aug 17, 2019Study Time: 09:58 AMReading Group: Narendra Perez, MDReferring Group: Unassigned [facility]Ordering Phys: MALORIE SLAUGHTER MDSonographer: Olesya Castaneda RVTLocation: Vascular Lab Study Quality: ExcellentDiagnosis Code: (I73.9) Peripheral vascular disease, unspecified(M79.605) Left leg pain(R20.0, R20.2) Numbness and tingling of both feetProcedure Code: 51983 Limited bilateral noninvasive physiologicstudies of upper or lower extremity.Indications: Focal stabbing pain to the left distal lateral lowerleg, which has resolved and now has similar pain on the left lateralupper thigh. Numbness and tingling of toes of left foot and mild inthe right great toe. ABI:Right Post Post Post Rest 1 min 1 min Immed. Waveform Pressure (mmHg) (mmHg) (mmHg) (mmHg) Brachial 130 Post Tibial Triphasic 164 Dors Pedis Triphasic 154 FLAKO 1.17 Toe Pressure 105 TBI 0.75 Left Post Post Post Rest 1 min 1 min Immed. Waveform Pressure (mmHg) (mmHg) (mmHg) (mmHg) Brachial 140 Post TibialTriphasic 162 Dors Pedis Triphasic 158 FLAKO 1.16 Toe Pressure 144 TBI 1.03 Findings:Triphasic Doppler signals in the bilateral dorsalis pedis and distalTAMARA TAMIR 2019-08-17 [address] [place] [address] - www.[facility] ABI Study Repo rt posterior tibial arteries.Normal bilateral great toe waveforms.IMPRESSION:Normal Bilateral ankle brachial indices.Normal Bilateral Toe brachial indices.Approved By: Narendra Rivero at: August 24, 2019 07:40 PM ESTElectronically Signed on StudycastMARLYS TAMIR 2019-08-17 Page [address] [place] [address] [employer].[facility] HospitalUS ANK/BRAC INDICES, SINGLE BILAT 2019-08-25 01:40:38[facility] ABI Study Report Name:MARLYS CHICASN: [id number]/Encounter No:[id number]: [id number]: 54Gender: FStudy Date: Aug 17, 2019Study Time: 09:58 AMReading Group: Narendra Perez, MDReferring Group: Unassigned [facility] ([place] [place] Phys: MALORIE SLAUGHTER MDSonographer: Olesya Castaneda RVTLocation: Vascular Lab Study Quality: ExcellentDiagnosis Code: (I73.9) Peripheral vascular disease, unspecified(M79.605) Left leg pain(R20.0, R20.2) Numbness and tingling of both feetProcedure Code: 60002 Limited bilateral noninvasive physiologicstudies of upper or lower extremity.Indications: Focal stabbing pain to the left distal lateral lowerleg, which has resolved and now has similar pain on the left lateralupper thigh. Numbness and tingling of toes of left foot and mild inthe right great toe. ABI:Right Post Post Post Rest 1 min 1 min Immed. Waveform Pressure(mmHg) (mmHg) (mmHg) (mmHg) Brachial 130 Post Tibial Triphasic 164 Dors Pedis Triphasic 154 FLAKO 1.17 Toe Pressure 105 TBI 0.75 Left Post Post Post Rest 1 min 1 min Immed. Waveform Pressure (mmHg) (mmHg) (mmHg) (mmHg) Brachial 140 Post Tibial Triphasic 162 Dors Pedis Triphasic 158 FLAKO 1.16 Toe Pressure 144 TBI 1.03 Findings:Tr iphasic Doppler signals in the bilateral dorsalis pedis and distalTACL TAMIR 2019-08-17 Page 1 of 2Studycast- www.[facility] campustudycast.[facility] ABI Study Report posterior tibial arteries. Normal bilateral great toe waveforms. IMPRESSION:Normal Bilateral ankle brachial indices.Normal Bilateral Toe brachial indices.Approved By: Narendra Rivero at: August 24, 2019 07:40 PM ESTElectronically Signed on DeyaniraALEXCL GARNETT 2019-08-17 Page 2 of 2Sgallup indian medical centersavanaCashEdge - www.acmc healthcare systemsaulo.Omer[employer] In Interconnect - 08/24/2019 6:41 PM [facility] ABI Study Report Name: MARLYS PRATT VAIVAN: [id number]/Encounter No:[id number]: [id number]: 54Gender: FStudy Date: Aug 17, 2019Study Time: 09:58 AMReading Group: Narendra Perez MDReferring Group: Unasschristina [facility]USSt. [facility] ([place], [place]) Phys: MALORIE SLAUGHTER MDSonographer: Olesya Castaneda RVTLocation: Vascular Lab Study Quality: ExcellentDiagnosis Code: (I73.9) Peripheral vascular disease, unspecified(M79.605) Left leg pain(R20.0, R20.2) Numbness and tingling of both feetProcedure Code: 05511 Limited bilateral noninvasive physiologicstudies of upper or lower extremity.Indications: Focal stabbing pain to the left distal lateral lowerleg, which has resolved and now has similar pain on the left lateralupper thigh. Numbness and tingling of toes of left foot and mild inthe right great toe. ABI:Right Post Post Post Rest 1 min 1 min Immed. Waveform Pressure (mmHg) (mmHg) (mmHg) (mmHg) Brachial 130 Post Tibial Triphasic 164 Dors Pedis Triphasic 154 FLAKO 1.17 Toe Pressure 105 TBI 0.75 Left Post Post Post Rest 1 min 1 min Immed. Waveform Pressure (mmHg) (mmHg) (mmHg) (mmHg) Brachial 140 Post TibialTriphasic 162 Dors Pedis Triphasic 158 FLAKO 1.16 Toe Pressure 144 TBI 1.03 Findings:Triphasic Doppler signals in the bilateral dorsalis pedis and distalTAMARA TAMIR 2019-08-17 Page 1 of [facility] HospitaludCompetitive Power Venturesast - www.acmc healthcare systemudCompetitive Power Ventureschristus st. [facility] ABI Study Repo rt posterior tibial arteries.Normal bilateral great toe waveforms.IMPRESSION:Normal Bilateral ankle brachial indices.Normal Bilateral Toe brachial indices.Approved By: Narendra Adamsved at: August 24, 2019 07:40 PM ESTElectronically Signed on StudycastMARLYS GARNETT 2019-08-17 Page 2 of [facility] HospitalNews360.acmc healthcare systemUscreen.tvCashEdge.[facility] CenterLIPID [id number] 21:00:00 Test Item Value Reference Range Interpretation Comments CHOLESTEROL (test 157 mg/dL <200 code = 2093-3) HDL (test code = 39 mg/dL >50 L 5-9) TRIGLYCERIDES (test 162 mg/dL <150 H code = 2571-8) LDL CHOLESTEROL mg/dL (calc) Reference ra nge: CALCULATED (test <100 Desira ble code = 78429-6) range <100 m g/dL for primary prevention; <7 0 mg/dL for patients with C HD or diabetic patients with > or = 2 CHD risk factors. LDL-C is now calculated using the Stevenson calculation, which is a validated novel method providin g better accuracy than the Friedewald equation in the estimation of LDL-C. John Em S et al. REA. 2013;310(19): 3671-0206 (http://educati on .BioAxone TherapeuticDiagnosti Smeet .com/faq/WMI023 ) CHOLESTEROL/HDL See_Comment [Automated RATIO (test code = message] The 9830-1) system which generated this result transmitted reference range : <5.0 (calc). Th e reference range was not used to interpret this result as normal/abnormal . NON HDL CHOLESTEROL See_Comment For ev ents with (test code = diabetes plus 1 42782-0) major ASCVD ris k factor, treatin g to a non-HDL-C goal of <100 mg/dL (LDL-C of <70 mg/dL) is considered a therapeutic option.Performe d at: [facility] [address] [address] YONY LARA MD [Automated message] The system which generated this result transmitted reference range : <130 mg/dL (calc). The reference range was not used to interpret this result as normal/abnormal . RAC (test code = Performing RAC) Organization Information: Site ID: [facility] ([place], [place]) Name: [facility] Address: [address] [place] [phone] Director: EMMY LARA MD Lab Interpretation Abnormal (test code = 04292-6) [facility]atoriumMICROALBUMIN/CREAT URINE [id number] 21:00:00 Test Item Value Reference Interpretation Comments Range CREATININE URINE 184 mg/dL 20-275 (test code = 2161-8) MICROALBUMIN URINE 1.3 mg/dL Reference RangeNot (test code = established 30976-9) MICROALBUMIN/CREAT See_Comment The ADA defines ININE RATIO (test abnormalit ies in code = 9318-7) albuminexcret ion as follows: Catego ry Result (mcg /mg creatinine) Nor mal <30Microalbumin uria 30-299 Cl inical albuminuria > OR = 300 The ADA recommends that at least two of threespecimens collected withi n a 3-6 month perio d beabnormal befo re considering a p atient to bewithin a diagnostic kenzie gorfiona. REPORT COMMENT:FASTING :YESPe rformed at: [facility] KASIE ALEXANDRA [address] [place] [address] [phone] EMMY LARA MD [Automated mess age] The system whic h generated this result transmitted ref erence range: <30 mcg/ mg creat. The refe rence range was not u sed to interpret this result as normal/abnor mal. RAC (test code = Performing RAC) Organization Information: Site ID: [facility] Name: [facility] Address: [address] [place] [phone] Director: EMMY LARA MD [facility]POCT HEMOGLOBIN [id number] 20:50:00 Test Item Value Reference Range Interpretation Comments HEMOGLOBIN A1C (test code = 4548-4) 9.8 % 4-5.6 A Lab Interpretation (test code = Abnormal 97376-5) [facility]atoriumPOCT HEMOGLOBIN [id number] 20:50:00 Test Item Value Reference Range Interpretation Comments HEMOGLOBIN A1C (test code = 4548-4) 9.8 % 4-5.6 A Lab Interpretation (test code = Abnormal 66143-8) [facility]- DUP VEIN UNI/[id number] 21:15:00 Name: MARLYS GARNETT [facility] : 1965 Age/S: 54 / F [address] [place], [place] [address]vd Unit #: [id number] Loc: [place], [id number] 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 SL: KEITH at 2115 Reported a nd signed by: Ata Gama M.D. CC: Ananya Ayala NP Technologist: Naz Qiu RDMS() Trnscb Date/Time: 08/09/2019 (2114) Jing Orig Print D/T: S: 08/09/2019 (2118) Probe: PAGE 1 Signed ReportPROTHROMBIN [id number] 21:11:00 Test Item Value Reference Range Interpretation [...] o prevent recurre nt infarct). THROMBOPLASTIN TIME [id number] 20:22:00 Test Item Value Reference Range Interpretation Comments THROMBOPLASTIN TIME 36.3 Seconds 25.0-39.5 N Ther apeutic PARTIAL (test code = Range: 50.4 - 88.3 PTT) Seconds Effective 01/24/2019 GASTRIC EMPTYING STUDY, [id number] 17:20:00Referring: JUAN Alvares for Exam:->R11.2FINAL REPORT PROCEDURE: GASTRIC EMPTYING STUDY with Solids CPT CODE: 30604 INDICATION: Intractable vomiting PROTOCOL: 0.54 mCi of Tc-99m sulfur colloid was administered orally in the equivalent of 2 scrambled egg whites. Serial images of the upper abdomen were obtained in the DEEPA projection for 90 minutes. Gastric emptying was [...] MDReport Verified Date/Time: 07/25/2019 17:20:46 Reading Location: [address] Reading Room C-REACTIVE [id number] 03:00:00 Test Item Value Reference Range Interpretation Comments C-REACTIVE PROTEIN 15.9 mg/L <8.0 H REPORT (test code = 1988-5) COMMENT :FASTING:Y ESCOLLECTION KI T GIVEN TO INDY Escobar. PATIENT ADVISED TO RETURN.Performe d at: [facility] ([place], [place]) [facility] [place] [address] YONY LARA MD RAC (test code = Performing RAC) Organization Information: Site ID: [facility] ([place], [place]) Name: [facility] Address: [address] [place] [address] Director: EMMY LARA MD Lab Interpretation Abnormal (test code = 05402-6) [facility]ED[facility] MODIFIED [id number] 03:00:00 Test Item Value Reference Range Interpretation Comments ERYTHROCYTE 56 mm/h See_Comment H Performed at: R [facility] SEDIMENTATION RATE [employer] (test code = 4537-7) [place] [address] YONY LARA MD [Automated message] The system which generated this result transmitted reference range : < OR = 30. T he reference range was not used to interpret this result as normal/abnormal . RAC (test code = Performing RAC) Organization Information: Site ID: [facility] ([place]) Name: [facility] Address: [address] [place], [place] [phone] Director: EMMY LARA MD Lab Interpretation Abnormal (test code = 16930-6) [facility]atoriumCELIAC DISEASE COMPREHENSIVE([facility],QUEST)2019-07-10 03:00:00 Test Item Value Reference Interpretation Comments Range INTERPRETATION SEE NOTE tTG IgA posit abel by (test code = 3017) FABIOLA is consistent with celiac disease, but not confirmed by EM A IFA. Total serum IgA is elevated.Consid er mucosal inflamm atory conditions or underlyinggammo dominga. Recommend corre lation with clinical,radiog raphic and endoscopic findings. Test code will be discontinued on 09/11/19 to beconsistent with AAFP and ACG gu idelines. A new test code ,64113, has been availa ble since 04/10/19 to incl ude TissueTransglut aminase (tTG) IgA with Reflex to EndomysialScree n/Titer reflex, and Tot al IgA with Reflex to DeamidatedGliad in Peptide (DGP) I gG and Tissue Transglu taminase (tTG)IgG to be consistent with said guidelines. Juhi t code 80559filr be or derable up to and inclu ding 09/10/19, there afterit will not be ord erable. TISSUE 6 U/mL H <4 No An tibody TRANSGLUTAMINASE Detected> O R = 4 ANTIBODY, IGA (test Antibody Detected code = 17731-1) IGA (test code = 459 mg/dL 47-310 H 2458-8) ENDOMYSIAL ANTIBODY NEGATIVE NEGATIVE Performe d at: [facility] (IGA) W/REFL TO DIAGNOST ICS/[facility] TITER (test code = 77626 ORT A [facility] 30034-7) [facility] [address] ADAMA JOHN MD,PHD ,EDA RAC (test code = Performing RAC) Organization Information: Site ID: [facility] Name: [facility] Address: [address] [place] [phone] Director: ABIEL JOHN MD,PHD ,EDA Lab Interpretation Abnormal (test code = 26371-9) [facility]PATHOLOGY [id number] 20:43:00 Test Item Value Reference Range Interpretation Comments CASE REPORT (test code Surgical Pathology = 38652) Report Case: [id number] Authorizing Provider: Tom Mann MD Collected: 06/22/2019 1104 Ordering Location: [facility] Endoscopy Received: 06/22/2019 1535 Services Pathologist: Isaiah Melchor MD Specimens: A) - Duodenum, BX B) - Cecum, BX C) - Colon Biopsy, Random DIAGNOSIS (test code = A.DUODENUM BIOPSY- 84912-8) NO DIAGNOSTIC ALTERATION B. COLON, CECUM, BIOPSY- NO DIAGNOSTIC ALTERATION- MINUTE MATURE ADIPOSE TISSUE SEEN (SEE COMMENT) C. COLON, RANDOM BIOPSY- NO DIAGNOSTIC ALTERATION- NO EVIDENCE OF MICROSCOPIC COLITIS Signing Pathologist Direct Phone Line: [phone] ally signed by Isaiah Melchor MD on 06/24/2019 at 3:43 PM DIAGNOSIS COMMENT (test B. A very minute area code = 96192) of adipose tissue is seen in deep lamina propria/submucosa. Although non-specific, it may be part of the lipoma noted endoscopically. 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 Duodenum biopsy. B. code = 2228) Cecum biopsy. C. Random colon biopsy GROSS DESCRIPTION (test This case is received code = 824) in three parts. All parts are labeled correctly with the patient's name and date of . Part A. Received in formalin labeled "duodenum" consists of a 0.5 x 0.4 x 0.3 cm newton-brown irregular tissue. The specimen is filtered and is submitted in toto in cassette A. Part B. Received in formalin labeled "cecum" consists of a 0.6 x 0.4 x 0.3 cm newton-brown irregular tissue. The specimen is filtered and is submitted in toto in cassette B. Part C. Received in formalin labeled "random colon biopsy" consists of two irregular fragments of newton-brown tissue aggregating to 0.8 x 0.3 x 0.2 cm. The specimen is filtered and is submitted in toto in cassette C. /ew MICROSCOPIC DESCRIPTION Performed. (test code = 819) GROSS ASSESSMENT (test [facility] code = 78202) [facility], Department of Pathology, [address] [place] [address], TECHNICAL COMPONENT [facility] (test code = 78862) [facility], Department of Pathology, [address] [place] [address], PROFESSIONAL COMPONENT [facility] (test code = 66009) [facility], Department of Pathology, [address] [place] [address], [facility]atoriumTISSUE [id number] 15:43:00Surgical Pathology Report Case: [id number] Authorizing Provider: Tom Mann MD Collected: 06/22/2019 1104 Ordering Location: [facility] Endoscopy Received: 06/22/2019 1535 Services Pathologist: Isaiah Melchor MD Specimens: A) - Duodenum, BX B) -Cecum, BX C) - Colon Biopsy, Random A.DUODENUM BIOPSY- NODIAGNOSTIC ALTERATIONB. COLON, CECUM, BIOPSY- NO DIAGNOSTIC ALTERATION- MINUTE MATURE ADIPOSE TISSUE SEEN (SEE COMMENT)C. COLON, RANDOM BIOPSY- NO DIAGNOSTIC ALTERATION- NO EVIDENCE OF MICROSCOPIC COLITIS Signing Pathologist Direct Phone Line: [phone] signed by Isaiah Melchor MD on 06/24/2019 at 3:43 PMB. A very minute area of adipose tissue is seen in deep laminapropria/submucosa. Although non-specific, it may be part of the lipoma noted endoscopically. 15620 X 3Cirrhosis of liver without ascites and screening for colon cancer A. Duodenum biopsy. B. Cecum biopsy. C. Random colon biopsy This case is [...] submitted in toto in cassette C. AH/ew Performed.[facility], Department of Pathology, [address] [place] [address], [facility], Department of [facility]ology, [address] [place] [address], [facility], Department of Pathology, [address] [place] [address], [id number] 15:28:00 Test Item Value Reference Interpretation Comments Range PROTIME (test code = See_Comment H [Autom ated 18055-8) message] The system which generated this result transmitted reference range : 11.9 - 14.2 seconds. The reference range was not used to interpret this result as normal/abnormal . INR (test code = See_Comment [Automated 82368-9) message] The system which generated this result transmitted reference range : <=5.9. The reference range was not used to interpret this result as normal/abnormal . JENNIFER (test code = Effective 03/08/2019: JENNIFER) PT Reference Range ChangeNew: 11.9-14.2 Previous: 11.7-14.7RECOMMENDED COUMADIN/WARFARIN INR THERAPY RANGESSTANDARD DOSE: 2.0-3.0 Includes: PROPHYLAXIS for venous thrombosis, systemic embolization; TREATMENT for venous thrombosis and/or pulmonary embolus.HIGH RISK: Target INR is 2.5-3.5 for patients wiht mechanical heart valves. Lab Interpretation Abnormal (test code = 48439-5) [facility]atoriumPOCT [id number] 15:00:00 Test Item Value Reference Range Interpretation Comments GLUCOSE P.O.C. (test code 140 mg/dL 70-110 H TE STED AT [facility] = 3093) [address] [place] [address] 0 Lab Interpretation (test Abnormal code = 38354-8) [facility] SanatoriumPROTHROMBIN [id number] 10:28:00 Test Item Value Reference Range Interpretation [...] is2.5-3.5 for patients wiht mechanical heart valves.POCT-GLUCOSE [id number] 10:00:00 Test Item Value Reference Range Interpretation Comments POC-GLUCOSE METER 140 mg/dL 70-110 H TESTED AT [facility] 67[address] [facility] (test code = [place] 1538) [address] HEPATIC FUNCTION [id number] 09:00:00 Test Item Value Reference Range Interpretation Comments PROTEIN TOTAL (test 8.2 g/dL 6.1-8.1 H code = 2885-2) ALBUMIN (test code = 4 g/dL 3.6-5.1 175-7) GLOBULINS, SERUM, See_Comment H [Automate d TOTAL (test code = message] The 21291-1) system which generated this result transmitted reference range : 1.9 - 3.7 g/dL (calc). The reference range was not used to interpret this result as normal/abnormal . A/G RATIO (test code See_Comment [Autom ated = 175-0) message] The system which generated this result transmitted reference range : 1.0 - 2.5 (calc ). The reference range was not used to interpr et this result as normal/abnormal . BILIRUBIN TOTAL 1.1 mg/dL 0.2-1.2 (test code = 1974-11) BILIRUBIN DIRECT 0.3 mg/dL See_Comment H [Automated (test code = 1968-04) message ] The system which generated this result transmitted reference range : < OR = 0.2. The reference range was not used to interpret this result as normal/abnormal . BILIRUBIN INDIRECT See_Comment [Automat ed (test code = 1970-10) message ] The system which generated this result transmitted reference range : 0.2 - 1.2 mg/dL (calc). The reference range was not used to interpret this result as normal/abnormal . ALKALINE PHOSPHATASE 95 U/L 33-130 (test code = 6768-6) AST (SGOT) (test 20 U/L 10-35 code = 1920-8) ALT (SGPT) (test 17 U/L 6-29 Performed a t: [facility] code = 1742-6) [facility] [address] [address] YONY LARA MD RAC (test code = Performing RAC) Organization Information: Site ID: [facility] Name: [facility] Address: [address] [place] [phone] Director: EMMY LARA MD Lab Interpretation Abnormal (test code = 95592-1) [facility] W/AUTO DIFF WITH [id number] 09:00:00 Test Item Value Reference Range Interpretation Comments WHITE BLOOD CELL See_Comment [Automated COUNT (test code = message] The 6690-2) system which generated this result transmitted reference range : 3.8 - 10.8 Thousand/uL. Th e reference range was not used to interpret this result as normal/abnormal . RED BLOOD CELL See_Comment [Automated COUNT (test code = message] The 789-8) system which generated this result transmitted reference range : 3.80 - 5.10 Million/uL. The reference range was not used to interpret this result as normal/abnormal . HEMOGLOBIN (test 13.6 g/dL 11.7-15.5 code = 718-7) HEMATOCRIT (test 40.0 % 35-45 code = 4544-3) MEAN CORPUSCULAR 83.7 fL 80-100 VOLUME (test code = 787-2) MEAN CORPUSCULAR 28.5 pg 27-33 HEMOGLOBIN (test code = 785-6) MEAN CORPUSCULAR 34.0 g/dL 32-36 HEMOGLOBIN CONC (test code = 786-4) RED CELL 15.0 % 11-15 DISTRIBUTION WIDTH (test code = 788-0) PLATELET COUNT See_Comment [Automated (test code = 777-3) message] The system which generated this result transmitted reference range : 140 - 400 Thousand/uL. Th e reference range was not used to interpret this result as normal/abnormal . MEAN PLATELET 12.3 fL 7.5-12.5 VOLUME (test code = 776-5) NEUTROPHILS See_Comment [Automated ABSOLUTE COUNT message] The (test code = 751-8) system w [facility] generated this result transmitted reference range : 1,500 - 7,800 cells/uL. The reference range was not used to interpret this result as normal/abnormal . LYMPHOCYTES See_Comment [Automated ABSOLUTE COUNT message] The (test code = 731-0) system w [facility] generated this result transmitted reference range : 850 - 3,900 cells/uL. The reference range was not used to interpret this result as normal/abnormal . MONOCYTES ABSOLUTE See_Comment [Automat ed COUNT (test code = message] The 742-7) system which generated this result transmitted reference range : 200 - 950 cells/uL. The reference range was not used to interpret this result as normal/abnormal . EOSINOPHILS See_Comment [Automated ABSOLUTE COUNT message] The (test code = 711-2) system w [facility] generated this result transmitted reference range : 15 - 500 cells/uL. The reference range was not used to interpret this result as normal/abnormal . BASOPHILS ABSOLUTE See_Comment [Automat ed COUNT (test code = message] The 704-7) system which generated this result transmitted reference range : 0 - 200 cells/u L. The reference range was not used to interpr et this result as normal/abnormal . NEUTROPHILS % (test 71.7 % code = 770-8) LYMPHOCYTES % (test 19.3 % code = 736-9) MONOCYTES % (test 5.8 % code = 5905-5) EOSINOPHILS % (test 2.5 % code = 713-8) BASOPHILS % (test 0.7 % REPORT code = 706-2) COMMENT:FASTIN G:N OPerformed at: [facility] ([place], [place]) [facility] [address] [address] YONY LARA MD RAC (test code = Performing RAC) Organization Information: Site ID: [facility] ([place], [place]) Name: [facility] Address: [address] [place] [phone] Director: EMMY LARA MD [facility] PROFILE + [id number] 09:00:00 Test Item Value Reference Interpretation Comments Range GLUCOSE (test code 201 mg/dL 65-139 H N on-fasting = 2345-7) reference inter zeke BLOOD UREA NITROGEN 13 mg/dL 7-25 (test code = 3094-0) CREATININE (test 0.73 mg/dL 0.5-1.05 For patient s >49 code = 2160-0) years of age, the reference limit for Creatinine is approximately 1 3% higher for peopleidentifie d as -Ayse n. EGFR (test code = See_Comment [Automate d message] 07725-4) The system [employer] generated this result transmit christopher reference range : > OR = 60 mL/min/1.73m2. The reference range was not used to interpret this result as normal/abnormal . EGFR AA (test code See_Comment [Automat ed message] = 39912-4) The system [employer] generated this result transmit christopher reference range : > OR = 60 mL/min/1.73m2. The reference range was not used to interpret this result as normal/abnormal . BUN/CREAT RATIO NOT APPLICABLE See_Comment [Automate d message] (test code = The system [employer] 3097-3) generated this result transmit christopher reference range : 6 - 22 (calc). The reference range was not used to interpret this result as normal/abnormal . SODIUM (test code = 139 mmol/L 422-177 9495-2) POTASSIUM (test 4.2 mmol/L 3.5-5.3 code = 2823-3) CHLORIDE (test code 101 mmol/L 98-110 = 2075-0) CO2 (test code = 30 mmol/L 20-32 2028-06) CALCIUM (test code 9.7 mg/dL 8.6-10.4 Performed at: A = 56425-5) [facility] [address] [address] YONY LARA MD RAC (test code = Performing RAC) Organization Information: Site ID: [facility] ([place], [place]) Name: [facility] Address: [address] [place] [phone] Director: EMMY LARA MD Lab Interpretation Abnormal (test code = 57882-4) [facility]atoriumTISSUE [id number] 10:33:00Surgical Pathology Report Case: [id number] Authorizing Provider: Arielle Mcginnis MD Collected: 05/26/2019 1215 Ordering Location: [address] Received: 05/29/2019 0818 Service Pathologist: Hailey Guerra MD Specimen: Po lyp, Gastric, Cardia Polyp STOMACH, CARDIA, POLYPECTOMY: - POLYPOID MUCOSA WITH HYPERPLASTIC FEATURES (SEE COMMENT) Signing Pathologist Direct Phone Line: [phone] signed by Hailey Guerra MD on 06/01/2019 at 10:33 AMSections show relatively small superficial fragment of polypoid gastric mucosa with hyperplastic features. In the appropriate clinical/endoscopic setting, this could represent hyperplastic polyp. Clinical/endoscopic correlation is recommended. Additionally, adjacent food particles are seen.[id number] perf ormed: upper endoscopy, polypectomy Preoperative and postoperative diagnoses [...] in toto following filtration in cassette A1. SS/ewPerformed.POCT- GLUCOSE [id number] 13:49:00 Test Item Value Reference Range Interpretation Comments POC-GLUCOSE METER 220 mg/dL 70-110 H TESTED AT [facility] 6720 ([facility]) (test code = SRAVANI Manriquez [facility] 1538) [address] COMPREHENSIVE METABOLIC [id number] 13:07:00 Test Item Value Reference Range Interpretation Comments TOTAL PROTEIN 7.8 gm/dL 6.0-8.3 ([facility] (test code = 770) ALBUMIN (BEAKER) 3.5 g/dL 3.5-5.0 (test code = 1145) ALKALINE PHOSPHATASE 84 U/L 40-150 (BEAKER) (test code = 346) BILIRUBIN TOTAL 2.2 [...] FOR DIALYSIS PATIEN TS. Specimen slightly ictericPROTHROMBIN TIME/[id number] 12:52:00 Test Item Value Reference Range Interpretation [...] code = 413) HIV-1 ANTIGEN WITH HIV-1/2 [id number] 06:14:00 Test Item Value Reference Range Interpretation Comments HIV-1 ANTIGEN WITH HIV 1\\T\\2 Nonreactive Nonreactive ANTIBODY (2) (BEAKER) (test code = 2586) CT, CHEST, WITHOUT [id number] 04:17:00Referring: Mily Keyes PA-C FINAL REPORT CT, [...] no findings to suggest bowel obstruction. Signed: Imani Sanders [facility] Verified Date/Time: 05/27/2019 04:17:26 CT, ABDOMEN AND PELVIS, RENAL STONE EVAL, WITHOUT / WITH IV [id number] 04:17:00 Referring: Shawnee Avlares for exam:->abdominal pain, nephrolithiasisFINAL REPORT CT, ABDOMEN [...] no findings to suggest bowel obstruction. Signed: Imani Sanders [facility]ort Verified Date/Time: 05/27/2019 04:17:26 POCT-GLUCOSE METER 2019-05-26 21:27:00 Test Item Value Reference Range Interpretation Comments POC-GLUCOSE METER 273 mg/dL 70-110 H TESTED AT [facility] 6720 (BEAKER) (test code = SRAVANI Manriquez [facility] 6589) [address] URINALYSIS W/ REFLEX URINE [id number] 17:31:00 Test Item Value Reference Range Interpretation [...] 516) SOURCE(BEAKER) (test code = 2795) POCT-GLUCOSE [id number] 17:11:00 Test Item Value Reference Range Interpretation Comments POC-GLUCOSE METER 199 mg/dL 70-110 H TESTED AT [place] [address] (BEAKER) (test code = [facility] 1538) [address] POCT-GLUCOSE [id number] 12:46:00 Test Item Value Reference Range Interpretation Comments POC-GLUCOSE METER 224 mg/dL 70-110 H TESTED AT [place] [address] (BEAKER) (test code = [facility] 1538) [address] POCT-GLUCOSE [id number] 12:00:00 Test Item Value Reference Range Interpretation Comments POC-GLUCOSE METER 226 mg/dL 70-110 H TESTED AT [place] [address] (BEAKER) (test code = [facility] 1538) [address] HEPATIC FUNCTION [id number] 08:20:00 Test Item Value Reference Range Interpretation [...] = 18 U/L 6-55 347) BASIC METABOLIC [id number] 08:20:00 Test Item Value Reference Range Interpretation [...] NOT APPLICABLE FOR DIALYSIS PATIEN TS. POCT-GLUCOSE [id number] 07:31:00 Test Item Value Reference Range Interpretation Comments POC-GLUCOSE METER 199 mg/dL 70-110 H TESTED AT [facility] 6720 (BEAKER) (test code = [place] 1539) [address] CBC W/PLT COUNT & AUTO [id number] 07:02:00 Test Item Value Reference Range Interpretation [...] PERCENT (BEAKER) (test code = 2801) PROTHROMBIN TIME/[id number] 07:00:00 Test Item Value Reference Range Interpretation [...] INR is2.5-3.5 for patients wiht mechanical heart valves.AFP TUMOR [id number] 00:01:00 Test Item Value Reference Range Interpretation Comments AFP (test code = 7673200) 4.3 ng/mL <10.0 [facility]OLIC [id number] 21:59:00 Test Item Value Reference Range Interpretation Comments SODIUM (test code = 137 meq/L 136-145 41163-0) POTASSIUM (test code = 4.1 meq/L 3.5-5.1 6298-4) CHLORIDE (test code = 102 meq/L 98-107 9-3) CO2 (test code = 26 meq/L -29 2027-9) BLOOD UREA NITROGEN 9 mg/dL 7-21 (test code = 60056-0) CREATININE (test code = 0.79 mg/dL 0.57-1.25 42413-8) GLUCOSE (test code = 251 mg/dL 70-105 H 63325-4) CALCIUM (test code = 9.5 mg/dL 8.4-10.2 92460-6) EGFR (test code = mL/min/1.73 [place] [address]-6) NOT ACCURATE CREATININE CLEARANCE IN PREDICTING GLOMERULAR FILTRATION RATE . ESTIMATED GFR I S NOT APPLICABLE FOR DIALYSIS PATIEN TS. Lab Interpretation Abnormal (test code = 26864-3) [facility]atoriumALPHA FETOPROTEIN (AFP), TUMOR [id number] 19:01:00 Test Item Value Reference Range Interpretation Comments ALPHA-FETOPROTEIN (BEAKER) (test 4.3 ng/mL <10.0 code = 1094) HEPATIC FUNCTION [id number] 16:59:00 Test Item Value Reference Range Interpretation [...] = 24 U/L 6-55 347) BASIC METABOLIC [id number] 16:59:00 Test Item Value Reference Range Interpretation [...] NOT APPLICABLE FOR DIALYSIS PATIEN TS. PROTHROMBIN TIME/[id number] 16:46:00 Test Item Value Reference Range Interpretation [...] mechanical heart valves.CBC W/PLT COUNT & AUTO [id number] 16:35:00 Test Item Value Reference Range Interpretation [...] PERCENT (BEAKER) (test code = 2801) HEMOGLOBIN [id number] 06:40:00 Test Item Value Reference Range Interpretation Comments HEMOGLOBIN A1C (BEAKER) (test code = 11.3 % 4.3-6.1 H 368) POCT-GLUCOSE [id number] 12:05:00 Test Item Value Reference Range Interpretation Comments POC-GLUCOSE METER 314 mg/dL 70-110 H TESTED AT [facility] 6720 (BEAKER) (test code = [place] 1538) [address] POCT-GLUCOSE [id number] 08:02:00 Test Item Value Reference Range Interpretation Comments POC-GLUCOSE METER 216 mg/dL 70-110 H TESTED AT [facility] 6720 (BEAKER) (test code = [place] 1538) [address] HEPATIC FUNCTION [id number] 04:42:00 Test Item Value Reference Range Interpretation [...] = 28 U/L 6-55 347) BASIC METABOLIC [id number] 04:42:00 Test Item Value Reference Range Interpretation [...] NOT APPLICABLE FOR DIALYSIS PATIEN TS. PROTHROMBIN TIME/[id number] 04:14:00 Test Item Value Reference Range Interpretation [...] valves.While on warfarin.CBC W/PLT COUNT & AUTO [id number] 04:05:00 Test Item Value Reference Range Interpretation [...] PERCENT (BEAKER) (test code = 2801) POCT-GLUCOSE [id number] 20:57:00 Test Item Value Reference Range Interpretation Comments POC-GLUCOSE METER 257 mg/dL 70-110 H TESTED AT [facility] 6720 ([facility] (test code = [place] 1538) [address] POCT-GLUCOSE [id number] 16:42:00 Test Item Value Reference Range Interpretation Comments POC-GLUCOSE METER 384 mg/dL 70-110 H TESTED AT [facility] 6720 (BEAKER) (test code = SRAVANI Manriquez [place] 1538) [address] POCT-GLUCOSE [id number] 12:13:00 Test Item Value Reference Range Interpretation Comments POC-GLUCOSE METER 306 mg/dL 70-110 H TESTED AT [facility] 6720 (BEAKER) (test code = SRAVANI Manri[place] 1538) [address] POCT-GLUCOSE [id number] 07:56:00 Test Item Value Reference Range Interpretation Comments POC-GLUCOSE METER 325 mg/dL 70-110 H TESTED AT [facility] 6720 (BEAKER) (test code = SRAVANI Manriquez [place] 1538) [address] BASIC METABOLIC [id number] 05:42:00 Test Item Value Reference Range Interpretation [...] DIALYSIS PATIEN TS. Specimen slightly ictericHEPATIC FUNCTION [id number] 05:42:00 Test Item Value Reference Range Interpretation [...] 32 U/L 6-55 347) Specimen slightly ictericPROTHROMBIN TIME/[id number] 05:30:00 Test Item Value Reference Range Interpretation [...] mechanical heart valves.CBC W/PLT COUNT & AUTO [id number] 05:19:00 Test Item Value Reference Range Interpretation [...] PERCENT (BEAKER) (test code = 2801) POCT-GLUCOSE [id number] 22:31:00 Test Item Value Reference Range Interpretation Comments POC-GLUCOSE METER 225 mg/dL 70-110 H TESTED AT [place] [address] (BEAKER) (test code = [facility] 1538) [address] POCT-GLUCOSE [id number] 18:24:00 Test Item Value Reference Range Interpretation Comments POC-GLUCOSE METER 257 mg/dL 70-110 H TESTED AT [place] [address] (BEAKER) (test code = [facility] 1538) [address] RAPID DRUG SCREEN, [id number] 14:23:00 Test Item Value Reference Range Interpretation [...] situations. Chain of custody not maintained. Some smgn-irq-rinlhhq medications, as well as adulterants, may cause inaccurate results. Clinical correlation should be applied. A more comprehensivedrug screen or confirmation of a detected drug may be performed upon request.POCT-GLUCOSE [id number] 12:23:00 Test Item Value Reference Range Interpretation Comments POC-GLUCOSE METER 242 mg/dL 70-110 H TESTED AT [place] [address] ([facility]) (test code = [facility] 1538) [address] POCT-GLUCOSE [id number] 07:27:00 Test Item Value Reference Range Interpretation Comments POC-GLUCOSE METER 198 mg/dL 70-110 H TESTED AT [place] [address] ([facility]) (test code = [facility] 1538) [address] CBC W/PLT COUNT & AUTO [id number] 06:41:00 Test Item Value Reference Range Interpretation Comments WHITE BLOOD CELL COUNT ([facility]) 6.5 K/ L 3.5-10.5 (test code = 775) RED BLOOD CELL COUNT ([facility]) 4.40 M/ L 3.93-5.22 (test code = 761) HEMOGLOBIN (BEAKER) (test code = 12.6 GM/DL 11.2-15.7 410) HEMATOCRIT (AKER) (test code = 38.3 % 34.1-44.9 411) MEAN CORPUSCULAR VOLUME (AKER) 87.0 fL 79.4-94.8 (test code = 753) MEAN CORPUSCULAR HEMOGLOBIN 28.6 pg 25.6-32.2 (AKER) (test code = 751) MEAN CORPUSCULAR HEMOGLOBIN CONC 32.9 GM/DL 32.2-35.5 (AKER) (test code = 752) RED CELL DISTRIBUTION [...] PERCENT (BEAKER) (test code = 2801) CT, [id number] 02:31:00Referring: JUAN AlvaresCFINAL REPORT EXAM: CT of the abdomen and [...] No hydroureteroneph rosis.Cirrhosis. Hepatosplenomegaly. Signed: Racheal Carlos [facility] Verified Date/Time: 04/11/2019 02:31:06 URINALYSIS W/ REFLEX URINE [id number] 22:19:00 Test Item Value Reference Range Interpretation [...] (test code = 2795) RAD, CHEST, 2 [id number] 22:13:00Referring: Shawnee Alvares for exam:->ABDOMINAL PAINFINAL REPORT [...] Impression: No focal pulmonary consolidation. Signed: Racheal Carlosort Verified Date/Time: 04/10/2019 22:13:40 Electronically sig juli by: RACHEAL CARLOS MD on 04/10/2019 10:13 PMCOMPREHENSIVE METABOLIC [id number] 22:06:00 Test Item Value Reference Range Interpretation [...] APPLICABLE FOR DIALYSIS PATIEN TS. Specimen slightly [id number] 22:06:00 Test Item Value Reference Range Interpretation Comments LIPASE (BEAKER) (test code = 749) 17 U/L 8-78 Specimen slightly ictericPT/[id number] 22:02:00 Test Item Value Reference Range Interpretation [...] mechanical heart valves.CBC W/PLT COUNT & AUTO [id number] 21:50:00 Test Item Value Reference Range Interpretation [...] (test code = 2801) CT ABD/PEL WITH VDCRQJOS-[id number] 01:31:00 [place] [id number] Patient Name: MARLYS GARNETT MR #: [id number] : 1965 Age/Sex: 54/F Req #: [id number] [facility] Physician: Ordered by: NASRIN PITTMAN DO Report #: [id number] Location: [facility] Room/Bed: Procedure: HOPD/CT ABD/PEL WITH CONTRAST-HOPD Exam [...] Transcribed By: GAYATRI on 10/29 COPY TO: PITTMAN,NASRIN DOBedside [id number] 09:42:00 Test Item Value Reference Range Interpretation Comments Bedside Glucose (test code = 30869-6) 352 70-120 H Meter ID: [id number] [facility] [id number] 09:42:00 Test Item Value Reference Range Interpretation Comments Bedside Glucose (test code = 54438-9) 352 70-120 H Meter ID: [id number] [facility] [id number] 09:42:00 Test Item Value Reference Range Interpretation Comments Bedside Glucose (test code = 01358-4) 352 70-120 H Meter ID: [id number] Harlingenodium [id number] 16:14:00 Test Item Value Reference Range Interpretation Comments Sodium Level (test code = 2951-2) 131 136-145 L [facility]Pot[facility] [id number] 16:14:00 Test Item Value Reference Range Interpretation Comments Potassium Level (test code = 2823-3) 3.9 3.5-5.1 [facility] CenterChloride [id number] 16:14:00 Test Item Value Reference Range Interpretation Comments Chloride Level (test code = 2075-0) 97 98-107 L [facility] CenterCarbon Dioxide [id number] 16:14:00 Test Item Value Reference Range Interpretation Comments Carbon Dioxide Level (test code = 28 -29 8-9) [facility] CenterAnion [id number] 16:14:00 Test Item Value Reference Range Interpretation Comments Anion Gap (test code = 46323-3) 9.9 8-16 [facility] CenterBlood Urea [id number] 16:14:00 Test Item Value Reference Range Interpretation Comments Blood Urea Nitrogen (test code = 05-05 3094-0) [facility] CenterCreatinine2019-06-05 16:14:00 Test Item Value Reference Range Interpretation Comments Creatinine (test code = 2160-0) 0.82 0.57-1.11 [facility] CenterBUN/Creatinine [id number] 16:14:00 Test Item Value Reference Range Interpretation Comments BUN/Creatinine Ratio (test code = 10 6-25 3097-3) [facility] CenterEstimat Glomerular Filtration [id number] 16:14:00 Test Item Value Reference Range Interpretation Comments Estimat Glomerular Filtration Rate > 60 >60 (test code = 945605025) Ranges were taken from the National Kidney Disease Education Program and the National Kidney Foundation literature.Reference ranges:60 or greater: Turcvo21- 59 (for 3 consecutive months): Chronic kidneydisease 15 or less: Kidney failure [facility] CenterGlucose Bukbo8723-60-09 16:14:00 Test Item Value Reference Range Interpretation Comments Glucose Level (test code = RWR5971) 346 74-118 H [facility] CenterCalcium [id number] 16:14:00 Test Item Value Reference Range Interpretation Comments Calcium Level (test code = 69926-2) 9.7 8.4-10.2 [facility] CenterTotal [id number] 16:14:00 Test Item Value Reference Range Interpretation Comments Total Bilirubin (test code = 1975-2) 1.9 0.2-1.2 H [facility] CenterAspartate Amino Transf (AST/SGOT)2019-03-15 16:14:00 Test Item Value Reference Range Interpretation Comments Aspartate Amino Transf (AST/SGOT) (test 32 5-34 code = Aspartate Amino Transf (AST/SGOT)) [facility] CenterAlanine Aminotransferase (ALT/SGPT)2019-03-15 16:14:00 Test Item Value Reference Range Interpretation Comments Alanine Aminotransferase (ALT/SGPT) 35 0-55 (test code = 1742-6) [facility] CenterTotal [id number] 16:14:00 Test Item Value Reference Range Interpretation Comments Total Protein (test code = 2885-2) 8.0 6.5-8.1 [facility] CenterAlbumin2019-06-05 16:14:00 Test Item Value Reference Range Interpretation Comments Albumin (test code = 1751-7) 3.4 3.5-5.0 L [facility] CenterGlobulin2019-06-05 16:14:00 Test Item Value Reference Range Interpretation Comments Globulin (test code = 72667-7) 4.6 2.3-3.5 H [facility] CenterAlbumin/Globulin [id number] 16:14:00 Test Item Value Reference Range Interpretation Comments Albumin/Globulin Ratio (test code = 0.7 0.8-2.0 L 1759-0) [facility] CenterAlkaline Vjjtqaqprqb4146-43-14 16:14:00 Test Item Value Reference Range Interpretation Comments Alkaline Phosphatase (test code = 100 40-150 6768-6) [facility]enodium [id number] 16:14:00 Test Item Value Reference Range Interpretation Comments Sodium Level (test code = 2951-2) 131 136-145 L [facility] CenterPotassium [id number] 16:14:00 Test Item Value Reference Range Interpretation Comments Potassium Level (test code = 2823-3) 3.9 3.5-5.1 [facility] CenterChloride [id number] 16:14:00 Test Item Value Reference Range Interpretation Comments Chloride Level (test code = 2075-0) 97 98-107 L [facility] CenterCarbon Dioxide [id number] 16:14:00 Test Item Value Reference Range Interpretation Comments Carbon Dioxide Level (test code = 28 -2027-9) [facility] CenterAnion [id number] 16:14:00 Test Item Value Reference Range Interpretation Comments Anion Gap (test code = 66708-8) 9.9 8-16 [facility] CenterBlood Urea [id number] 16:14:00 Test Item Value Reference Range Interpretation Comments Blood Urea Nitrogen (test code = 05-05 3094-0) [facility] CenterCreatinine2019-06-05 16:14:00 Test Item Value Reference Range Interpretation Comments Creatinine (test code = 2160-0) 0.82 0.57-1.11 [facility] CenterBUN/Creatinine [id number] 16:14:00 Test Item Value Reference Range Interpretation Comments BUN/Creatinine Ratio (test code = 10 04-04 3097-3) [facility] CenterEstimat Glomerular Filtration Cwgq5957-00-22 16:14:00 Test Item Value Reference Range Interpretation Comments Estimat Glomerular Filtration Rate > 60 >60 (test code = 650189686) Ranges were taken from the National Kidney Disease Education Program and the National Kidney Foundation literature.Reference ranges:60 or greater: Jzgfkg48- 59 (for 3 consecutive months): Chronic kidneydisease 15 or less: Kidney failure [facility] CenterGlucose Ueplj5377-92-22 16:14:00 Test Item Value Reference Range Interpretation Comments Glucose Level (test code = BDN3592) 346 74-118 H [facility] CenterCalcium Skico5422-09-24 16:14:00 Test Item Value Reference Range Interpretation Comments Calcium Level (test code = 21303-7) 9.7 8.4-10.2 [facility] CenterTotal Inazmcaqe6005-75-70 16:14:00 Test Item Value Reference Range Interpretation Comments Total Bilirubin (test code = 1975-2) 1.9 0.2-1.2 H [facility] CenterAspartate Amino Transf (AST/SGOT)2019-03-15 16:14:00 Test Item Value Reference Range Interpretation Comments Aspartate Amino Transf (AST/SGOT) (test 32 5-34 code = Aspartate Amino Transf (AST/SGOT)) [facility] CenterAlanine Aminotransferase (ALT/SGPT)2019-03-15 16:14:00 Test Item Value Reference Range Interpretation Comments Alanine Aminotransferase (ALT/SGPT) 35 0-55 (test code = 1742-6) [facility] CenterTotal [id number] 16:14:00 Test Item Value Reference Range Interpretation Comments Total Protein (test code = 2885-2) 8.0 6.5-8.1 [facility] CenterAlbumin2019-06-[facility] 16:14:00 Test Item Value Reference Range Interpretation Comments Albumin (test code = 1751-7) 3.4 3.5-5.0 L [facility] CenterGlobulin2019-06-05 16:14:00 Test Item Value Reference Range Interpretation Comments Globulin (test code = 18464-0) 4.6 2.3-3.5 H [facility] CenterAlbumin/Globulin Dsqyo8243-79-50 16:14:00 Test Item Value Reference Range Interpretation Comments Albumin/Globulin Ratio (test code = 0.7 0.8-2.0 L 1759-0) [facility] CenterAlkaline Qcitilqqrkg9768-66-19 16:14:00 Test Item Value Reference Range Interpretation Comments Alkaline Phosphatase (test code = 100 40-150 6768-6) [facility] Pljxj9212-49-78 16:14:00 Test Item Value Reference Range Interpretation Comments Sodium Level (test code = 2951-2) 131 136-145 L [facility] CenterPotassium Tiowv6160-29-48 16:14:00 Test Item Value Reference Range Interpretation Comments Potassium Level (test code = 2823-3) 3.9 3.5-5.1 [facility] CenterChloride Fsqns4008-15-87 16:14:00 Test Item Value Reference Range Interpretation Comments Chloride Level (test code = 2075-0) 97 98-107 L [facility] CenterCarbon Dioxide Pqkwz4219-73-56 16:14:00 Test Item Value Reference Range Interpretation Comments Carbon Dioxide Level (test code = 28 -2027-9) [facility] CenterAnion Gov0544-11-14 16:14:00 Test Item Value Reference Range Interpretation Comments Anion Gap (test code = 00446-0) 9.9 8-16 [facility] CenterBlood Urea Clavivsx6351-52-53 16:14:00 Test Item Value Reference Range Interpretation Comments Blood Urea Nitrogen (test code = 8 05-05 3094-0) [facility] CenterCreatinine2019-06-05 16:14:00 Test Item Value Reference Range Interpretation Comments Creatinine (test code = 2160-0) 0.82 0.57-1.11 [facility] CenterBUN/Creatinine Xhvlj2245-43-04 16:14:00 Test Item Value Reference Range Interpretation Comments BUN/Creatinine Ratio (test code = 04-04 3097-3) [facility] CenterEstimat Glomerular Filtration Oehy7489-58-65 16:14:00 Test Item Value Reference Range Interpretation Comments Estimat Glomerular Filtration Rate > 60 >60 (test code = 112360613) Ranges were taken from the National Kidney Disease Education Program and the National Kidney Foundation literature.Reference ranges:60 or greater: Hktctq56- 59 (for 3 consecutive months): Chronic kidneydisease 15 or less: Kidney failure [facility] CenterGlucose Ipwra1791-47-04 16:14:00 Test Item Value Reference Range Interpretation Comments Glucose Level (test code = NMO6464) 346 74-118 H [facility] CenterCalcium Npgyr5370-68-02 16:14:00 Test Item Value Reference Range Interpretation Comments Calcium Level (test code = 09386-6) 9.7 8.4-10.2 [facility] CenterTotal Copevmksc4396-38-76 16:14:00 Test Item Value Reference Range Interpretation Comments Total Bilirubin (test code = 1975-2) 1.9 0.2-1.2 H [facility] CenterAspartate Amino Transf (AST/SGOT)2019-03-15 16:14:00 Test Item Value Reference Range Interpretation Comments Aspartate Amino Transf (AST/SGOT) (test 32 5-34 code = Aspartate Amino Transf (AST/SGOT)) [facility] CenterAlanine Aminotransferase (ALT/SGPT)2019-03-15 16:14:00 Test Item Value Reference Range Interpretation Comments Alanine Aminotransferase (ALT/SGPT) 35 0-55 (test code = 1742-6) [facility] CenterTotal Pmjcvye8074-57-22 16:14:00 Test Item Value Reference Range Interpretation Comments Total Protein (test code = 2885-2) 8.0 6.5-8.1 [facility] CenterAlbumin2019-06-05 16:14:00 Test Item Value Reference Range Interpretation Comments Albumin (test code = 1751-7) 3.4 3.5-5.0 L [facility] CenterGlobulin2019-06-05 16:14:00 Test Item Value Reference Range Interpretation Comments Globulin (test code = 39108-6) 4.6 2.3-3.5 H [facility] CenterAlbumin/Globulin Nyivo0354-32-69 16:14:00 Test Item Value Reference Range Interpretation Comments Albumin/Globulin Ratio (test code = 0.7 0.8-2.0 L 1759-0) [facility] CenterAlkaline Yxbylaztboe8737-04-43 16:14:00 Test Item Value Reference Range Interpretation Comments Alkaline Phosphatase (test code = 100 40-150 6768-6) [facility] Parbv7733-99-83 16:14:00 Test Item Value Reference Range Interpretation Comments Sodium Level (test code = 2951-2) 131 136-145 L [facility] CenterPotassium Bedtz7694-72-67 16:14:00 Test Item Value Reference Range Interpretation Comments Potassium Level (test code = 2823-3) 3.9 3.5-5.1 [facility] CenterChloride Guaax7229-24-28 16:14:00 Test Item Value Reference Range Interpretation Comments Chloride Level (test code = 2075-0) 97 98-107 L [facility] CenterCarbon Dioxide Oyyye3471-25-10 16:14:00 Test Item Value Reference Range Interpretation Comments Carbon Dioxide Level (test code = 28 -8-9) [facility] CenterAnion Mjt7508-16-22 16:14:00 Test Item Value Reference Range Interpretation Comments Anion Gap (test code = 09455-5) 9.9 8-16 [facility] CenterBlood Urea Pnchexqt4466-59-86 16:14:00 Test Item Value Reference Range Interpretation Comments Blood Urea Nitrogen (test code = 05-05 3094-0) [facility] CenterCreatinine2019-06-05 16:14:00 Test Item Value Reference Range Interpretation Comments Creatinine (test code = 2160-0) 0.82 0.57-1.11 [facility] CenterBUN/Creatinine Rdbfn7674-36-73 16:14:00 Test Item Value Reference Range Interpretation Comments BUN/Creatinine Ratio (test code = 04-04 3097-3) [facility] CenterEstimat Glomerular Filtration Eodl9095-15-76 16:14:00 Test Item Value Reference Range Interpretation Comments Estimat Glomerular Filtration Rate > 60 >60 (test code = 121926335) Ranges were taken from the National Kidney Disease Education Program and the National Kidney Foundation literature.Reference ranges:60 or greater: Qugxfz85- 59 (for 3 consecutive months): Chronic kidneydisease 15 or less: Kidney failure [facility] CenterGlucose Mobij4786-51-57 16:14:00 Test Item Value Reference Range Interpretation Comments Glucose Level (test code = VOB7080) 346 74-118 H [facility] CenterCalcium Yvocl5898-79-30 16:14:00 Test Item Value Reference Range Interpretation Comments Calcium Level (test code = 33089-6) 9.7 8.4-10.2 [facility] CenterTotal Zlrhbqpsl3168-34-59 16:14:00 Test Item Value Reference Range Interpretation Comments Total Bilirubin (test code = 1975-2) 1.9 0.2-1.2 H [facility] CenterAspartate Amino Transf (AST/SGOT)2019-03-15 16:14:00 Test Item Value Reference Range Interpretation Comments Aspartate Amino Transf (AST/SGOT) (test 32 5-34 code = Aspartate Amino Transf (AST/SGOT)) [facility] CenterAlanine Aminotransferase (ALT/SGPT)2019-03-15 16:14:00 Test Item Value Reference Range Interpretation Comments Alanine Aminotransferase (ALT/SGPT) 35 0-55 (test code = 1742-6) [facility] CenterTotal Hcrdmml6271-17-17 16:14:00 Test Item Value Reference Range Interpretation Comments Total Protein (test code = 2885-2) 8.0 6.5-8.1 [facility] CenterAlbumin2019-06-05 16:14:00 Test Item Value Reference Range Interpretation Comments Albumin (test code = 1751-7) 3.4 3.5-5.0 L [facility] CenterGlobulin2019-06-05 16:14:00 Test Item Value Reference Range Interpretation Comments Globulin (test code = 88480-7) 4.6 2.3-3.5 H [facility] CenterAlbumin/Globulin Jbygh2305-82-27 16:14:00 Test Item Value Reference Range Interpretation Comments Albumin/Globulin Ratio (test code = 0.7 0.8-2.0 L 1759-0) [facility] CenterAlkaline Njwuazndmdt8830-21-15 16:14:00 Test Item Value Reference Range Interpretation Comments Alkaline Phosphatase (test code = 100 40-150 6768-6) [facility] CenterUrine JFF4754-60-13 16:10:00 Test Item Value Reference Range Interpretation Comments Urine WBC (test code = 5821-4) 0-5 0-5 [facility] CenterUrine RFE5337-24-20 16:10:00 Test Item Value Reference Range Interpretation Comments Urine RBC (test code = 25044-9) 0-5 0-5 [facility] CenterUrine Mimkktay8199-97-98 16:10:00 Test Item Value Reference Range Interpretation Comments Urine Bacteria (test code = 55271-5) MODERATE NONE H [facility] CenterUrine Epithelial Xfznr9653-02-82 16:10:00 Test Item Value Reference Range Interpretation Comments Urine Epithelial Cells (test code = MODERATE NONE 34203-7) [facility] CenterUrine [id number] 16:10:00 Test Item Value Reference Range Interpretation Comments Urine WBC (test code = 5821-4) 0-5 0-5 [facility] CenterUrine SHD1503-86-85 16:10:00 Test Item Value Reference Range Interpretation Comments Urine RBC (test code = 66851-0) 0-5 0-5 [facility] CenterUrine Psdimfzw8391-63-77 16:10:00 Test Item Value Reference Range Interpretation Comments Urine Bacteria (test code = 53601-6) MODERATE NONE H [facility] CenterUrine Epithelial Wxzhd7207-65-36 16:10:00 Test Item Value Reference Range Interpretation Comments Urine Epithelial Cells (test code = MODERATE NONE 72969-0) [facility] CenterUrine [id number] 16:10:00 Test Item Value Reference Range Interpretation Comments Urine WBC (test code = 5821-4) 0-5 0-5 [facility] CenterUrine [id number] 16:10:00 Test Item Value Reference Range Interpretation Comments Urine RBC (test code = 79360-6) 0-5 0-5 [facility] CenterUrine Kyotzucb0320-81-47 16:10:00 Test Item Value Reference Range Interpretation Comments Urine Bacteria (test code = 83964-0) MODERATE NONE H [facility] CenterUrine Epithelial Lbdaw4813-70-61 16:10:00 Test Item Value Reference Range Interpretation Comments Urine Epithelial Cells (test code = MODERATE NONE 38704-4) [facility] CenterUrine [id number] 16:10:00 Test Item Value Reference Range Interpretation Comments Urine WBC (test code = 5821-4) 0-5 0-5 [facility] CenterUrine [id number] 16:10:00 Test Item Value Reference Range Interpretation Comments Urine RBC (test code = 24573-1) 0-5 0-5 [facility] CenterUrine Lfoeazob0732-33-62 16:10:00 Test Item Value Reference Range Interpretation Comments Urine Bacteria (test code = 74856-4) MODERATE NONE H [facility] CenterUrine Epithelial Sguvo1104-43-15 16:10:00 Test Item Value Reference Range Interpretation Comments Urine Epithelial Cells (test code = MODERATE NONE 22645-4) [facility] CenterWhite Blood Dubml4230-40-99 15:56:00 Test Item Value Reference Range Interpretation Comments White Blood Count (test code = 6690-2) 6.10 4.8-10.8 [facility] CenterRed Blood Rutxz6833-35-11 15:56:00 Test Item Value Reference Range Interpretation Comments Red Blood Count (test code = 789-8) 4.55 3.6-5.1 [facility] CenterHemoglobin2019-06-05 15:56:00 Test Item Value Reference Range Interpretation Comments Hemoglobin (test code = 14111-1) 12.8 12.0-16.0 [facility] CenterHematocrit2019-06-05 15:56:00 Test Item Value Reference Range Interpretation Comments Hematocrit (test code = 4544-3) 38.5 34.2-44.1 [facility] CenterMean Corpuscular Diqzaq2644-42-49 15:56:00 Test Item Value Reference Range Interpretation Comments Mean Corpuscular Volume (test code = 84.6 81-99 787-2) [facility] CenterMean Corpuscular Xtoauvxfdf5055-50-94 15:56:00 Test Item Value Reference Range Interpretation Comments Mean Corpuscular Hemoglobin (test code 28.1 28-32 = 785-6) [facility] CenterMean Corpuscular Hemoglobin Dzffokl0376-65-43 15:56:00 Test Item Value Reference Range Interpretation Comments Mean Corpuscular Hemoglobin Concent 33.2 31-35 (test code = 786-4) [facility] CenterRed Cell Distribution Yxsle8727-30-74 15:56:00 Test Item Value Reference Range Interpretation Comments Red Cell Distribution Width (test code 15.6 11.7-14.4 H = 44173-0) [facility] CenterPlatelet Dgxyl0652-24-67 15:56:00 Test Item Value Reference Range Interpretation Comments Platelet Count (test code = 777-3) 115 140-360 L [facility] CenterNeutrophils (%) (Auto)2019-03-15 15:56:00 Test Item Value Reference Range Interpretation Comments Neutrophils (%) (Auto) (test code = 64.2 38.7-80.0 84502-0) [facility] CenterLymphocytes (%) (Auto)2019-03-15 15:56:00 Test Item Value Reference Range Interpretation Comments Lymphocytes (%) (Auto) (test code = 25.7 18.0-39.1 736-9) [facility] CenterMonocytes (%) (Auto)2019-03-15 15:56:00 Test Item Value Reference Range Interpretation Comments Monocytes (%) (Auto) (test code = 7.0 4.4-11.3 5905-5) [facility] CenterEosinophils (%) (Auto)2019-03-15 15:56:00 Test Item Value Reference Range Interpretation Comments Eosinophils (%) (Auto) (test code = 2.1 0.0-6.0 713-8) [facility] CenterBasophils (%) (Auto)2019-03-15 15:56:00 Test Item Value Reference Range Interpretation Comments Basophils (%) (Auto) (test code = 0.7 0.0-1.0 706-2) [facility] CenterIM GRANULOCYTES %2019-03-15 15:56:00 Test Item Value Reference Range Interpretation Comments IM GRANULOCYTES % (test code = IM 0.3 0.0-1.0 GRANULOCYTES %) [facility] CenterNeutrophils # (Auto)2019-03-15 15:56:00 Test Item Value Reference Range Interpretation Comments Neutrophils # (Auto) (test code = 3.9 2.1-6.9 751-8) [facility] CenterLymphocytes # (Auto)2019-03-15 15:56:00 Test Item Value Reference Range Interpretation Comments Lymphocytes # (Auto) (test code = 1.6 1.0-3.2 23585-6) [facility] CenterMonocytes # (Auto)2019-03-15 15:56:00 Test Item Value Reference Range Interpretation Comments Monocytes # (Auto) (test code = 742-7) 0.4 0.2-0.8 [facility] CenterEosinophils # (Auto)2019-03-15 15:56:00 Test Item Value Reference Range Interpretation Comments Eosinophils # (Auto) (test code = 0.1 0.0-0.4 711-2) [facility] CenterBasophils # (Auto)2019-03-15 15:56:00 Test Item Value Reference Range Interpretation Comments Basophils # (Auto) (test code = 704-7) 0.0 0.0-0.1 [facility] CenterAbsolute Immature Granulocyte (xmnq6668-88-27 15:56:00 Test Item Value Reference Range Interpretation Comments Absolute Immature Granulocyte (auto 0.02 0-0.1 (test code = Absolute Immature Granulocyte (auto) [facility] CenterUrine Rceqj8679-31-73 15:56:00 Test Item Value Reference Range Interpretation Comments Urine Color (test code = 5778-6) YELLOW YELLOW [facility] CenterUrine Dmslhvd6074-59-91 15:56:00 Test Item Value Reference Range Interpretation Comments Urine Clarity (test code = 75098-8) HAZY CLEAR [facility] CenterUrine Specific Kbtelyw8346-06-62 15:56:00 Test Item Value Reference Range Interpretation Comments Urine Specific [place] (test code = 1.010 1.010-1.025 5811-5) [facility] CenterUrine [id number] 15:56:00 Test Item Value Reference Range Interpretation Comments Urine pH (test code = 33230-8) 8 5-7 [facility] CenterUrine Leukocyte Pfqvpnak7917-57-53 15:56:00 Test Item Value Reference Range Interpretation Comments Urine Leukocyte Esterase (test code NEGATIVE NEGATIVE = 61083-9) [facility] CenterUrine Vqspenp8966-86-21 15:56:00 Test Item Value Reference Range Interpretation Comments Urine Nitrite (test code = 51913-7) NEGATIVE NEGATIVE [facility] CenterUrine Ihborgr7823-81-72 15:56:00 Test Item Value Reference Range Interpretation Comments Urine Protein (test code = 01833-7) NEGATIVE NEGATIVE [facility] CenterUrine Glucose (UA)2019-03-15 15:56:00 Test Item Value Reference Range Interpretation Comments Urine Glucose (UA) (test code = 3+ NEGATIVE 36515-1) [facility] CenterUrine Cstnfwi9759-03-46 15:56:00 Test Item Value Reference Range Interpretation Comments Urine Ketones (test code = 79521-9) NEGATIVE NEGATIVE [facility] CenterUrine Axrovjlzfdjj8917-69-09 15:56:00 Test Item Value Reference Range Interpretation Comments Urine Urobilinogen (test code = 4 0.2-1 29695-1) [facility] CenterUrine Llzujlcvo5073-34-30 15:56:00 Test Item Value Reference Range Interpretation Comments Urine Bilirubin (test code = 1977-8) NEGATIVE NEGATIVE [facility] CenterUrine Jkigo4972-96-85 15:56:00 Test Item Value Reference Range Interpretation Comments Urine Blood (test code = 77029-5) TRACE NEGATIVE [facility] CenterWhite Blood Wbrqe3739-18-91 15:56:00 Test Item Value Reference Range Interpretation Comments White Blood Count (test code = 6690-2) 6.10 4.8-10.8 [facility] CenterRed Blood Oeqzy9406-76-41 15:56:00 Test Item Value Reference Range Interpretation Comments Red Blood Count (test code = 789-8) 4.55 3.6-5.1 [facility] CenterHemoglobin2019-06-05 15:56:00 Test Item Value Reference Range Interpretation Comments Hemoglobin (test code = 45156-4) 12.8 12.0-16.0 [facility] CenterHematocrit2019-06-05 15:56:00 Test Item Value Reference Range Interpretation Comments Hematocrit (test code = 4544-3) 38.5 34.2-44.1 [facility] CenterMean Corpuscular Izjijc1211-58-30 15:56:00 Test Item Value Reference Range Interpretation Comments Mean Corpuscular Volume (test code = 84.6 81-99 787-2) [facility] CenterMean Corpuscular Wnaammgzee3950-61-93 15:56:00 Test Item Value Reference Range Interpretation Comments Mean Corpuscular Hemoglobin (test code 28.1 28-32 = 785-6) [facility] CenterMean Corpuscular Hemoglobin Ohiadzo0183-79-46 15:56:00 Test Item Value Reference Range Interpretation Comments Mean Corpuscular Hemoglobin Concent 33.2 31-35 (test code = 786-4) [facility] CenterRed Cell Distribution Adogu8616-71-64 15:56:00 Test Item Value Reference Range Interpretation Comments Red Cell Distribution Width (test code 15.6 11.7-14.4 H = 69949-0) [facility] CenterPlatelet Wpkoy5253-97-99 15:56:00 Test Item Value Reference Range Interpretation Comments Platelet Count (test code = 777-3) 115 140-360 L [facility] CenterNeutrophils (%) (Auto)2019-03-15 15:56:00 Test Item Value Reference Range Interpretation Comments Neutrophils (%) (Auto) (test code = 64.2 38.7-80.0 09570-5) [facility] CenterLymphocytes (%) (Auto)2019-03-15 15:56:00 Test Item Value Reference Range Interpretation Comments Lymphocytes (%) (Auto) (test code = 25.7 18.0-39.1 736-9) [facility] CenterMonocytes (%) (Auto)2019-03-15 15:56:00 Test Item Value Reference Range Interpretation Comments Monocytes (%) (Auto) (test code = 7.0 4.4-11.3 5905-5) [facility] CenterEosinophils (%) (Auto)2019-03-15 15:56:00 Test Item Value Reference Range Interpretation Comments Eosinophils (%) (Auto) (test code = 2.1 0.0-6.0 713-8) [facility] CenterBasophils (%) (Auto)2019-03-15 15:56:00 Test Item Value Reference Range Interpretation Comments Basophils (%) (Auto) (test code = 0.7 0.0-1.0 706-2) [facility] CenterIM GRANULOCYTES %2019-03-15 15:56:00 Test Item Value Reference Range Interpretation Comments IM GRANULOCYTES % (test code = IM 0.3 0.0-1.0 GRANULOCYTES %) [facility] CenterNeutrophils # (Auto)2019-03-15 15:56:00 Test Item Value Reference Range Interpretation Comments Neutrophils # (Auto) (test code = 3.9 2.1-6.9 751-8) [facility] CenterLymphocytes # (Auto)2019-03-15 15:56:00 Test Item Value Reference Range Interpretation Comments Lymphocytes # (Auto) (test code = 1.6 1.0-3.2 46242-6) [facility] CenterMonocytes # (Auto)2019-03-15 15:56:00 Test Item Value Reference Range Interpretation Comments Monocytes # (Auto) (test code = 742-7) 0.4 0.2-0.8 [facility] CenterEosinophils # (Auto)2019-03-15 15:56:00 Test Item Value Reference Range Interpretation Comments Eosinophils # (Auto) (test code = 0.1 0.0-0.4 711-2) [facility] CenterBasophils # (Auto)2019-03-15 15:56:00 Test Item Value Reference Range Interpretation Comments Basophils # (Auto) (test code = 704-7) 0.0 0.0-0.1 [facility] CenterAbsolute Immature Granulocyte (aebu8875-03-57 15:56:00 Test Item Value Reference Range Interpretation Comments Absolute Immature Granulocyte (auto 0.02 0-0.1 (test code = Absolute Immature Granulocyte (auto) [facility] CenterUrine Abqwc0035-94-13 15:56:00 Test Item Value Reference Range Interpretation Comments Urine Color (test code = 5778-6) YELLOW YELLOW [facility] CenterUrine Foconzx4292-09-66 15:56:00 Test Item Value Reference Range Interpretation Comments Urine Clarity (test code = 12994-2) HAZY CLEAR [facility] CenterUrine Specific Tugrblu9481-67-83 15:56:00 Test Item Value Reference Range Interpretation Comments Urine Specific [place] (test code = 1.010 1.010-1.025 5811-5) [facility] CenterUrine [id number] 15:56:00 Test Item Value Reference Range Interpretation Comments Urine pH (test code = 80690-5) 8 5-7 [facility] CenterUrine Leukocyte Usfqttzb0095-63-74 15:56:00 Test Item Value Reference Range Interpretation Comments Urine Leukocyte Esterase (test code NEGATIVE NEGATIVE = 42711-2) [facility] CenterUrine Dqomezw3205-23-65 15:56:00 Test Item Value Reference Range Interpretation Comments Urine Nitrite (test code = 98310-2) NEGATIVE NEGATIVE [facility] CenterUrine Qfrqfor9956-53-90 15:56:00 Test Item Value Reference Range Interpretation Comments Urine Protein (test code = 46810-6) NEGATIVE NEGATIVE [facility] CenterUrine Glucose (UA)2019-03-15 15:56:00 Test Item Value Reference Range Interpretation Comments Urine Glucose (UA) (test code = 3+ NEGATIVE 39638-6) [facility] CenterUrine Admzryo9982-51-57 15:56:00 Test Item Value Reference Range Interpretation Comments Urine Ketones (test code = 10360-6) NEGATIVE NEGATIVE [facility] CenterUrine Siweighjyccg4155-94-62 15:56:00 Test Item Value Reference Range Interpretation Comments Urine Urobilinogen (test code = 4 0.2-1 13010-0) [facility] CenterUrine Idkwddscl9352-69-38 15:56:00 Test Item Value Reference Range Interpretation Comments Urine Bilirubin (test code = 1977-8) NEGATIVE NEGATIVE [facility] CenterUrine Hmgvi6924-72-70 15:56:00 Test Item Value Reference Range Interpretation Comments Urine Blood (test code = 79693-6) TRACE NEGATIVE [facility] CenterWhite Blood Ivzpk7723-39-40 15:56:00 Test Item Value Reference Range Interpretation Comments White Blood Count (test code = 6690-2) 6.10 4.8-10.8 [facility] CenterRed Blood Xilhl1907-87-51 15:56:00 Test Item Value Reference Range Interpretation Comments Red Blood Count (test code = 789-8) 4.55 3.6-5.1 [facility] CenterHemoglobin2019-06-05 15:56:00 Test Item Value Reference Range Interpretation Comments Hemoglobin (test code = 32899-2) 12.8 12.0-16.0 [facility] CenterHematocrit2019-06-05 15:56:00 Test Item Value Reference Range Interpretation Comments Hematocrit (test code = 4544-3) 38.5 34.2-44.1 [facility] CenterMean Corpuscular Korpvy6222-90-54 15:56:00 Test Item Value Reference Range Interpretation Comments Mean Corpuscular Volume (test code = 84.6 81-99 787-2) [facility] CenterMean Corpuscular Tnacnaqyms0332-26-09 15:56:00 Test Item Value Reference Range Interpretation Comments Mean Corpuscular Hemoglobin (test code 28.1 28-32 = 785-6) [facility] CenterMean Corpuscular Hemoglobin Pydljoy7053-06-80 15:56:00 Test Item Value Reference Range Interpretation Comments Mean Corpuscular Hemoglobin Concent 33.2 31-35 (test code = 786-4) [facility] CenterRed Cell Distribution Gsdhp1938-41-53 15:56:00 Test Item Value Reference Range Interpretation Comments Red Cell Distribution Width (test code 15.6 11.7-14.4 H = 18064-6) [facility] CenterPlatelet Utfuv8109-05-79 15:56:00 Test Item Value Reference Range Interpretation Comments Platelet Count (test code = 777-3) 115 140-360 L [facility] CenterNeutrophils (%) (Auto)2019-03-15 15:56:00 Test Item Value Reference Range Interpretation Comments Neutrophils (%) (Auto) (test code = 64.2 38.7-80.0 51800-5) [facility] CenterLymphocytes (%) (Auto)2019-03-15 15:56:00 Test Item Value Reference Range Interpretation Comments Lymphocytes (%) (Auto) (test code = 25.7 18.0-39.1 736-9) [facility] CenterMonocytes (%) (Auto)2019-03-15 15:56:00 Test Item Value Reference Range Interpretation Comments Monocytes (%) (Auto) (test code = 7.0 4.4-11.3 5905-5) [facility] CenterEosinophils (%) (Auto)2019-03-15 15:56:00 Test Item Value Reference Range Interpretation Comments Eosinophils (%) (Auto) (test code = 2.1 0.0-6.0 713-8) [facility] CenterBasophils (%) (Auto)2019-03-15 15:56:00 Test Item Value Reference Range Interpretation Comments Basophils (%) (Auto) (test code = 0.7 0.0-1.0 706-2) [facility] CenterIM GRANULOCYTES %2019-03-15 15:56:00 Test Item Value Reference Range Interpretation Comments IM GRANULOCYTES % (test code = IM 0.3 0.0-1.0 GRANULOCYTES %) [facility] CenterNeutrophils # (Auto)2019-03-15 15:56:00 Test Item Value Reference Range Interpretation Comments Neutrophils # (Auto) (test code = 3.9 2.1-6.9 751-8) [facility] CenterLymphocytes # (Auto)2019-03-15 15:56:00 Test Item Value Reference Range Interpretation Comments Lymphocytes # (Auto) (test code = 1.6 1.0-3.2 61545-6) [facility] CenterMonocytes # (Auto)2019-03-15 15:56:00 Test Item Value Reference Range Interpretation Comments Monocytes # (Auto) (test code = 742-7) 0.4 0.2-0.8 [facility] CenterEosinophils # (Auto)2019-03-15 15:56:00 Test Item Value Reference Range Interpretation Comments Eosinophils # (Auto) (test code = 0.1 0.0-0.4 711-2) [facility] CenterBasophils # (Auto)2019-03-15 15:56:00 Test Item Value Reference Range Interpretation Comments Basophils # (Auto) (test code = 704-7) 0.0 0.0-0.1 [facility] CenterAbsolute Immature Granulocyte (svqj2221-22-00 15:56:00 Test Item Value Reference Range Interpretation Comments Absolute Immature Granulocyte (auto 0.02 0-0.1 (test code = Absolute Immature Granulocyte (auto) [facility] CenterUrine Amhmm0153-70-50 15:56:00 Test Item Value Reference Range Interpretation Comments Urine Color (test code = 5778-6) YELLOW YELLOW [facility] CenterUrine Tnvrlxc6979-67-91 15:56:00 Test Item Value Reference Range Interpretation Comments Urine Clarity (test code = 73695-4) HAZY CLEAR [facility] CenterUrine Specific Kynulgs3844-15-88 15:56:00 Test Item Value Reference Range Interpretation Comments Urine Specific [place] (test code = 1.010 1.010-1.025 5811-5) [facility] CenterUrine rY7223-00-69 15:56:00 Test Item Value Reference Range Interpretation Comments Urine pH (test code = 28885-0) 8 5-7 [facility] CenterUrine Leukocyte Keqaxzci0597-95-29 15:56:00 Test Item Value Reference Range Interpretation Comments Urine Leukocyte Esterase (test code NEGATIVE NEGATIVE = 53197-6) [facility] CenterUrine Kihbcww0734-40-00 15:56:00 Test Item Value Reference Range Interpretation Comments Urine Nitrite (test code = 54178-4) NEGATIVE NEGATIVE [facility] CenterUrine Ubejthm8522-11-01 15:56:00 Test Item Value Reference Range Interpretation Comments Urine Protein (test code = 01389-2) NEGATIVE NEGATIVE [facility] CenterUrine Glucose (UA)2019-03-15 15:56:00 Test Item Value Reference Range Interpretation Comments Urine Glucose (UA) (test code = 3+ NEGATIVE 99858-2) [facility] CenterUrine Mbnwvjq5279-94-14 15:56:00 Test Item Value Reference Range Interpretation Comments Urine Ketones (test code = 98298-6) NEGATIVE NEGATIVE [facility] CenterUrine Xtchykgdcahx3151-39-77 15:56:00 Test Item Value Reference Range Interpretation Comments Urine Urobilinogen (test code = 4 0.2-1 35647-7) [facility] CenterUrine Bzyrbempv8532-61-41 15:56:00 Test Item Value Reference Range Interpretation Comments Urine Bilirubin (test code = 1977-8) NEGATIVE NEGATIVE [facility] CenterUrine Ntetw6729-53-13 15:56:00 Test Item Value Reference Range Interpretation Comments Urine Blood (test code = 51710-7) TRACE NEGATIVE [facility] CenterWhite Blood Pcbqw0990-69-21 15:56:00 Test Item Value Reference Range Interpretation Comments White Blood Count (test code = 6690-2) 6.10 4.8-10.8 [facility] CenterRed Blood Kmlny6151-54-18 15:56:00 Test Item Value Reference Range Interpretation Comments Red Blood Count (test code = 789-8) 4.55 3.6-5.1 [facility] CenterHemoglobin2019-06-05 15:56:00 Test Item Value Reference Range Interpretation Comments Hemoglobin (test code = 97531-2) 12.8 12.0-16.0 [facility] CenterHematocrit2019-06-05 15:56:00 Test Item Value Reference Range Interpretation Comments Hematocrit (test code = 4544-3) 38.5 34.2-44.1 [facility] CenterMean Corpuscular Jpxtys9762-35-60 15:56:00 Test Item Value Reference Range Interpretation Comments Mean Corpuscular Volume (test code = 84.6 81-99 787-2) [facility] CenterMean Corpuscular Duspbcqhps3830-43-10 15:56:00 Test Item Value Reference Range Interpretation Comments Mean Corpuscular Hemoglobin (test code 28.1 28-32 = 785-6) [facility] CenterMean Corpuscular Hemoglobin Nmvcjvu2277-83-53 15:56:00 Test Item Value Reference Range Interpretation Comments Mean Corpuscular Hemoglobin Concent 33.2 31-35 (test code = 786-4) [facility] CenterRed Cell Distribution Dwtur0796-74-61 15:56:00 Test Item Value Reference Range Interpretation Comments Red Cell Distribution Width (test code 15.6 11.7-14.4 H = 18043-2) [facility] CenterPlatelet Xpyax7773-59-85 15:56:00 Test Item Value Reference Range Interpretation Comments Platelet Count (test code = 777-3) 115 140-360 L [facility] CenterNeutrophils (%) (Auto)2019-03-15 15:56:00 Test Item Value Reference Range Interpretation Comments Neutrophils (%) (Auto) (test code = 64.2 38.7-80.0 39724-4) [facility] CenterLymphocytes (%) (Auto)2019-03-15 15:56:00 Test Item Value Reference Range Interpretation Comments Lymphocytes (%) (Auto) (test code = 25.7 18.0-39.1 736-9) [facility] CenterMonocytes (%) (Auto)2019-03-15 15:56:00 Test Item Value Reference Range Interpretation Comments Monocytes (%) (Auto) (test code = 7.0 4.4-11.3 5905-5) [facility] CenterEosinophils (%) (Auto)2019-03-15 15:56:00 Test Item Value Reference Range Interpretation Comments Eosinophils (%) (Auto) (test code = 2.1 0.0-6.0 713-8) [facility] CenterBasophils (%) (Auto)2019-03-15 15:56:00 Test Item Value Reference Range Interpretation Comments Basophils (%) (Auto) (test code = 0.7 0.0-1.0 706-2) [facility] CenterIM GRANULOCYTES %2019-03-15 15:56:00 Test Item Value Reference Range Interpretation Comments IM GRANULOCYTES % (test code = IM 0.3 0.0-1.0 GRANULOCYTES %) [facility] CenterNeutrophils # (Auto)2019-03-15 15:56:00 Test Item Value Reference Range Interpretation Comments Neutrophils # (Auto) (test code = 3.9 2.1-6.9 751-8) [facility] CenterLymphocytes # (Auto)2019-03-15 15:56:00 Test Item Value Reference Range Interpretation Comments Lymphocytes # (Auto) (test code = 1.6 1.0-3.2 73607-0) [facility] CenterMonocytes # (Auto)2019-03-15 15:56:00 Test Item Value Reference Range Interpretation Comments Monocytes # (Auto) (test code = 742-7) 0.4 0.2-0.8 [facility] CenterEosinophils # (Auto)2019-03-15 15:56:00 Test Item Value Reference Range Interpretation Comments Eosinophils # (Auto) (test code = 0.1 0.0-0.4 711-2) [facility] CenterBasophils # (Auto)2019-03-15 15:56:00 Test Item Value Reference Range Interpretation Comments Basophils # (Auto) (test code = 704-7) 0.0 0.0-0.1 [facility] CenterAbsolute Immature Granulocyte (aryw2331-89-75 15:56:00 Test Item Value Reference Range Interpretation Comments Absolute Immature Granulocyte (auto 0.02 0-0.1 (test code = Absolute Immature Granulocyte (auto) [facility] CenterUrine Txjck0594-67-90 15:56:00 Test Item Value Reference Range Interpretation Comments Urine Color (test code = 5778-6) YELLOW YELLOW [facility] CenterUrine Vyszffk9539-06-99 15:56:00 Test Item Value Reference Range Interpretation Comments Urine Clarity (test code = 05421-8) HAZY CLEAR [facility] CenterUrine Specific Oflgije7402-80-20 15:56:00 Test Item Value Reference Range Interpretation Comments Urine Specific [place] (test code = 1.010 1.010-1.025 5811-5) [facility] CenterUrine fA1508-05-47 15:56:00 Test Item Value Reference Range Interpretation Comments Urine pH (test code = 68358-9) 8 5-7 [facility] CenterUrine Leukocyte Fbueloho1104-56-62 15:56:00 Test Item Value Reference Range Interpretation Comments Urine Leukocyte Esterase (test code NEGATIVE NEGATIVE = 82885-5) [facility] CenterUrine Utpbygg5138-68-68 15:56:00 Test Item Value Reference Range Interpretation Comments Urine Nitrite (test code = 43375-3) NEGATIVE NEGATIVE [facility] CenterUrine Atjxxbo0048-93-40 15:56:00 Test Item Value Reference Range Interpretation Comments Urine Protein (test code = 84265-1) NEGATIVE NEGATIVE [facility] CenterUrine Glucose (UA)2019-03-15 15:56:00 Test Item Value Reference Range Interpretation Comments Urine Glucose (UA) (test code = 3+ NEGATIVE 24576-8) [facility] CenterUrine Aqwpqku0237-44-05 15:56:00 Test Item Value Reference Range Interpretation Comments Urine Ketones (test code = 55367-3) NEGATIVE NEGATIVE [facility] CenterUrine Zbdlnfwvoywq9360-66-53 15:56:00 Test Item Value Reference Range Interpretation Comments Urine Urobilinogen (test code = 4 0.2-1 74424-3) [facility] CenterUrine Jqvefvlvn6716-16-98 15:56:00 Test Item Value Reference Range Interpretation Comments Urine Bilirubin (test code = 1977-8) NEGATIVE NEGATIVE [facility] Ofrvr3507-49-70 15:56:00 Test Item Value Reference Range Interpretation Comments Urine Blood (test code = 59834-1) TRACE NEGATIVE [facility] CenterTISSUE CUAA9515-68-97 17:02:00Surgical Pathology Report Case: [id number] Authorizing Provider: Tom Mann MD Collected: 01/10/2019 1120 Ordering Location: [facility] Radiology Angio Received: 01/10/2019 1426 Pathologist: Allie Lu MD Specimen: Liver LIVER, ULTRASOUND-GUIDED NEEDLE BIOPSIES- CIRRHOSIS- STEATOSIS (~6%)- RARE BALLOONED HEPATOCYTE- see comment Signing Pathologist Direct Phone Line: [phone] signed by Allie Lu MD on 01/13/2019 [...] 2/8. The fibrosis score is 4 of 4.90763, 22437 I2Dzbgfjfa liver enzymesNative right liverbiopsyThe specimen is received in a formalin-filled container and labeled with the patient's informat ion and labeled "right [place] liver biopsy" and consists of two newton-red [...] stains. Immunohistochemistry technical testing was performed at [facility], Pathology Laboratory where it was [...] perform high complexity clinical laboratory testing.U/S, BIOPSY, ASQKT3934-75-69 11:59:00 Referring: DOROTA Alvares-CUltrasound guided liver biopsyAbnormal [...] the liver under ultrasound guidance. Signed: Cheo Villarreal MDReport Verified Date/Time: 01/10/2019 11:59:42 Reading Location: [address] Ultrasound Reading Room [id number] 08:59:00 Test Item Value Reference Range Interpretation Comments PARTIAL THROMBOPLASTIN TIME 37.7 seconds 22.5-36.0 H (BEAKER) (test code = 760) PROTHROMBIN TIME/MEN9693-00-13 08:58:00 Test Item Value Reference Range Interpretation Comments PROTIME (BEAKER) (test code = 14.7 seconds 11.7-14.7 759) INR (BEAKER) (test code = 370) 1.1 <=5.9 RECOMMENDED COUMADIN/WARFARIN INR THERAPY RANGESSTANDARD DOSE: 2.0 - 3.0 Includes: PROPHYLAXIS forvenous thrombosis, systemic embolization; TREATMENT for venous thrombosis and/or pulmonary embolus.HIGH RISK: Target INR is 2.5-3.5 for patients with mechanical heart valves.PLATELET JIORI9676-98-39 08:50:00 Test Item Value Reference Range Interpretation Comments PLATELET COUNT (BEAKER) (test 113 K/CU MM 150-450 L code = 756) PROTHROMBIN TIME/[id number] 09:40:00 Test Item Value Reference Range Interpretation [...] (BEAKER) (test code = 2801) U/S, ABDOMINAL, WMICUXAA7127-14-74 11:18:00Referring: DOROTA Alvares- CCirrhosis assess for HCCReason [...] Trace ascites.3. Pancreas poorly seen. Signed: Cheo Smith MDReport Verified Date/Time: 12/07/2018 11:18:11 Reading Location: [address] Radiology Reading Room ALPHA FETOPROTEIN (AFP), TUMOR [id number] 19:36:00 Test Item Value Reference Range Interpretation Comments ALPHA-FETOPROTEIN (BEAKER) (test 4.2 ng/mL <10.0 code = 1094) HEPATIC FUNCTION [id number] 17:53:00 Test Item Value Reference Range Interpretation [...] = 21 U/L 6-55 347) BASIC METABOLIC OTTFL8223-65-95 17:53:00 Test Item Value Reference Range Interpretation [...] NOT APPLICABLE FOR DIALYSIS PATIEN TS. PROTHROMBIN TIME/[id number] 17:46:00 Test Item Value Reference Range Interpretation [...] code = 2801) RAD, HAND, 2 VIEWS, NTEJZ2741-86-86 13:22:00Referring: JUAN Alvaers for Exam:->m79.641Reason for Exam:->m79.642FINAL REPORT Exam: Right and left hand three views each History: Pain Venkatesh rison: None. Findings: No fracture or malalignment. Bone demineralization. Narrowing of the interphalangeal joints and first carpometacarpal joint. No abnormal soft tissue calcification or soft tissue defect. Impression: No acute osseous abnormality Osteoarthrosis of the interphalangeal and first car pometacarpal joint Signed: Benjy Sanchez Verified Date/Time: 11/10/2018 13:22:55 RAD, HAND, 2 VIEWS, [id number] 13:22:00Referring: Shawnee Alvares for Exam:->m79.641Reason for Exam:->m79.642FINAL REPORT Exam: Right and left hand three views each History: Pain Venkatesh rison: None. Findings: No fracture or malalignment. Bone demineralization. Narrowing of the interphalangeal joints and first carpometacarpal joint. No abnormal soft tissue calcification or soft tissue defect. Impression: No acute osseous abnormality Osteoarthrosis of the interphalangeal and first car pometacarpal joint Signed: Benjy Sanchez Verified Date/Time: 11/10/2018 13:22:55 CT ABD/PEL WITH KDZVONGA-MWIA2014-13-18 22:26:00 [place] [address] Patient Name: MARLYS GARNETT MR #: [id number] : 1965 Age/Sex: 53/F Req #: [id number] Adm Physician: Ordered by: LILA ESCALANTE MD Report #: [id number] Location: [facility] Room/Bed: Procedure: [id number] HOPD/CT ABD/PEL WITH CONTRAST-HOPD Exam Date: 09/27/18 [...] Transcribed By: GAYATRI on 09/27/182233 COPY TO: AVALILA Pate MDCT ABDOMEN/PELVIS [id number] 16:21:00 [place] [address] Patient Name: MARLYS GARNETT MR #: [id number] : 1965 Age/Sex: 53/F Req #: [id number] Adm Physician: Ordered by: AMBER GOMES MD Report #: [id number] Location: ER Room/Bed: Procedure: [id number] CT/CT ABDOMEN/PELVIS W Exam Date: Exam Time: [...] COPY TO: AMBER GOMES MD Creatine Kinase [id number] 15:15:00 Test Item Value Reference Range Interpretation Comments Creatine Kinase MB (test code = 0.30 0-5.0 52275-6) [facility] CenterTroponin [id number] 15:15:00 Test Item Value Reference Range Interpretation Comments Troponin I (test code = EIS2784) < 0.001 0-0.300 [facility] CenterThyroid Stimulating Hormone (TSH)2018-07-14 15:15:00 Test Item Value Reference Range Interpretation Comments Thyroid Stimulating Hormone (TSH) (test 0.601 0.350-4.940 code = 74143-3) [facility] CenterCreatine Kinase [id number] 15:15:00 Test Item Value Reference Range Interpretation Comments Creatine Kinase MB (test code = 0.30 0-5.0 00118-9) [place] [address]2018-10-04 15:15:00 Test Item Value Reference Range Interpretation Comments Troponin I (test code = KCG0837) < 0.001 0-0.300 [facility] CenterThyroid Stimulating Hormone (TSH)2018-07-14 15:15:00 Test Item Value Reference Range Interpretation Comments Thyroid Stimulating Hormone (TSH) (test 0.601 0.350-4.940 code = 71353-1) [facility] CenterCreatine Kinase [id number] 15:15:00 Test Item Value Reference Range Interpretation Comments Creatine Kinase MB (test code = 0.30 0-5.0 25953-5) [place] [address]2018-10-04 15:15:00 Test Item Value Reference Range Interpretation Comments Troponin I (test code = VCY8221) -0.001 0-0.300 [facility] CenterThyroid Stimulating Hormone (TSH)2018-07-14 15:15:00 Test Item Value Reference Range Interpretation Comments Thyroid Stimulating Hormone (TSH) (test 0.601 0.350-4.940 code = 74855-0) [facility] CenterCreatine Kinase [id number] 15:15:00 Test Item Value Reference Range Interpretation Comments Creatine Kinase MB (test code = 0.30 0-5.0 97297-8) [place] [address]2018-10-04 15:15:00 Test Item Value Reference Range Interpretation Comments Troponin I (test code = NRB9435) < 0.001 0-0.300 [facility] CenterThyroid Stimulating Hormone (TSH)2018-07-14 15:15:00 Test Item Value Reference Range Interpretation Comments Thyroid Stimulating Hormone (TSH) (test 0.601 0.350-4.940 code = 01462-0) [facility] CenterTotal Apdfutykc2599-04-05 15:02:00 Test Item Value Reference Range Interpretation Comments Total Bilirubin (test code = 1975-2) 1.5 0.2-1.2 H [facility] CenterTotal Fjwfgafqa0229-25-12 15:02:00 Test Item Value Reference Range Interpretation Comments Total Bilirubin (test code = 1975-2) 1.5 0.2-1.2 H [facility] CenterCreatine Wpwwwj1744-52-31 14:52:00 Test Item Value Reference Range Interpretation Comments Creatine Kinase (test code = 2157-6) 37 29-168 [facility] CenterAmylase Gflma8305-38-36 14:52:00 Test Item Value Reference Range Interpretation Comments Amylase Level (test code = 1798-8) 63 25-125 [facility] CenterLipase2018-10-04 14:52:00 Test Item Value Reference Range Interpretation Comments Lipase (test code = 3040-3) 40 -78 [facility] CenterMagnesium Qraug7932-87-36 14:52:00 Test Item Value Reference Range Interpretation Comments Magnesium Level (test code = 92116-9) 1.8 1.3-2.1 [facility] CenterCreatine Hagjvt7445-03-21 14:52:00 Test Item Value Reference Range Interpretation Comments Creatine Kinase (test code = 2157-6) 37 29-168 [facility] CenterAmylase Hmrbf7609-79-80 14:52:00 Test Item Value Reference Range Interpretation Comments Amylase Level (test code = 1798-8) 63 25-125 [facility] CenterLipase2018-10-04 14:52:00 Test Item Value Reference Range Interpretation Comments Lipase (test code = 3040-3) 40 8-78 [facility] Evudg5690-96-25 14:52:00 Test Item Value Reference Range Interpretation Comments Sodium Level (test code = 2951-2) 140 136-145 [facility] CenterPotassium Usenr1998-67-68 14:52:00 Test Item Value Reference Range Interpretation Comments Potassium Level (test code = 2823-3) 4.3 3.5-5.1 [facility] CenterChloride Dczvf2130-03-76 14:52:00 Test Item Value Reference Range Interpretation Comments Chloride Level (test code = 2075-0) 105 98-107 [facility] CenterCarbon Dioxide Yyhbu7408-33-97 14:52:00 Test Item Value Reference Range Interpretation Comments Carbon Dioxide Level (test code = -8-9) [facility] CenterAnion Ygf4124-67-19 14:52:00 Test Item Value Reference Range Interpretation Comments Anion Gap (test code = 46463-9) 16.3 8-16 H [facility] CenterBlood Urea Bkpwkoiv0710-24-38 14:52:00 Test Item Value Reference Range Interpretation Comments Blood Urea Nitrogen (test code = 05-05 3094-0) [facility] CenterCreatinine2018-10-04 14:52:00 Test Item Value Reference Range Interpretation Comments Creatinine (test code = 2160-0) 0.90 0.57-1.11 [facility] CenterBUN/Creatinine Wpwil1875-65-04 14:52:00 Test Item Value Reference Range Interpretation Comments BUN/Creatinine Ratio (test code = 04-04 3097-3) [facility] CenterEstimat Glomerular Filtration Fdmv8318-48-29 14:52:00 Test Item Value Reference Range Interpretation Comments Estimat Glomerular Filtration Rate 60- >60 (test code = 497833991) Ranges were taken from the National Kidney Disease Education Program and the National Kidney Foundation literature.Reference ranges:60 or greater: Eeaavl42- 59 (for 3 consecutive months): Chronic kidneydisease 15 or less: Kidney failure [facility] CenterGlucose Tlhte8891-09-73 14:52:00 Test Item Value Reference Range Interpretation Comments Glucose Level (test code = PSU1314) 184 74-118 H [facility] CenterCalcium Vtgif5324-10-93 14:52:00 Test Item Value Reference Range Interpretation Comments Calcium Level (test code = 75085-8) 10.2 8.4-10.2 [facility] CenterMagnesium Nxaus1189-76-18 14:52:00 Test Item Value Reference Range Interpretation Comments Magnesium Level (test code = 27570-6) 1.8 1.3-2.1 [facility] CenterAspartate Amino Transf (AST/SGOT)2018-07-14 14:52:00 Test Item Value Reference Range Interpretation Comments Aspartate Amino Transf (AST/SGOT) (test 63 5-34 H code = Aspartate Amino Transf (AST/SGOT)) [facility] CenterAlanine Aminotransferase (ALT/SGPT)2018-07-14 14:52:00 Test Item Value Reference Range Interpretation Comments Alanine Aminotransferase (ALT/SGPT) 38 0-55 (test code = 1742-6) [facility] CenterTotal Cepsgbs9730-96-27 14:52:00 Test Item Value Reference Range Interpretation Comments Total Protein (test code = 2885-2) 8.7 6.5-8.1 H [facility] CenterAlbumin2018-10-04 14:52:00 Test Item Value Reference Range Interpretation Comments Albumin (test code = 1751-7) 3.8 3.5-5.0 [facility] CenterGlobulin2018-10-04 14:52:00 Test Item Value Reference Range Interpretation Comments Globulin (test code = 55744-6) 4.9 2.3-3.5 H [facility] CenterAlbumin/Globulin Vmgab8604-52-98 14:52:00 Test Item Value Reference Range Interpretation Comments Albumin/Globulin Ratio (test code = 0.8 0.8-2.0 1759-0) [facility] CenterAlkaline Ouaxostlcwj6563-23-03 14:52:00 Test Item Value Reference Range Interpretation Comments Alkaline Phosphatase (test code = 103 40-150 6768-6) [facility] CenterCreatine Uxamkj0030-44-75 14:52:00 Test Item Value Reference Range Interpretation Comments Creatine Kinase (test code = 2157-6) 37 29-168 [facility] CenterAmylase Knlwk6239-80-80 14:52:00 Test Item Value Reference Range Interpretation Comments Amylase Level (test code = 1798-8) 63 25-125 [facility] CenterLipase2018-10-04 14:52:00 Test Item Value Reference Range Interpretation Comments Lipase (test code = 3040-3) 40 8-78 [facility]enodium Gmvmm9848-63-51 14:52:00 Test Item Value Reference Range Interpretation Comments Sodium Level (test code = 2951-2) 140 136-145 [facility] CenterPotassium Ufscs8937-51-57 14:52:00 Test Item Value Reference Range Interpretation Comments Potassium Level (test code = 2823-3) 4.3 3.5-5.1 [facility] CenterChloride Gonae5439-24-85 14:52:00 Test Item Value Reference Range Interpretation Comments Chloride Level (test code = 2075-0) 105 98-107 [facility] CenterCarbon Dioxide Vbxeb0858-04-74 14:52:00 Test Item Value Reference Range Interpretation Comments Carbon Dioxide Level (test code = -2027-9) [facility] CenterAnion Btv2284-19-86 14:52:00 Test Item Value Reference Range Interpretation Comments Anion Gap (test code = 60616-5) 16.3 8-16 H [facility] CenterBlood Urea Fkmpttnm3586-70-70 14:52:00 Test Item Value Reference Range Interpretation Comments Blood Urea Nitrogen (test code = 05-05 3094-0) [facility] CenterCreatinine2018-10-04 14:52:00 Test Item Value Reference Range Interpretation Comments Creatinine (test code = 2160-0) 0.90 0.57-1.11 [facility] CenterBUN/Creatinine Rwcfg0533-55-36 14:52:00 Test Item Value Reference Range Interpretation Comments BUN/Creatinine Ratio (test code = 04-04 3097-3) [facility] CenterEstimat Glomerular Filtration Hadw3390-49-15 14:52:00 Test Item Value Reference Range Interpretation Comments Estimat Glomerular Filtration Rate > 60 >60 (test code = 655084211) Ranges were taken from the National Kidney Disease Education Program and the National Kidney Foundation literature.Reference ranges:60 or greater: Opymbd96- 59 (for 3 consecutive months): Chronic kidneydisease 15 or less: Kidney failure [facility] CenterGlucose Ieuuu6628-05-09 14:52:00 Test Item Value Reference Range Interpretation Comments Glucose Level (test code = WDP2978) 184 74-118 H [facility] CenterCalcium Rxxii5237-86-96 14:52:00 Test Item Value Reference Range Interpretation Comments Calcium Level (test code = 94370-1) 10.2 8.4-10.2 [facility] CenterMagnesium Chwli5575-30-69 14:52:00 Test Item Value Reference Range Interpretation Comments Magnesium Level (test code = 26029-7) 1.8 1.3-2.1 [facility] CenterAspartate Amino Transf (AST/SGOT)2018-07-14 14:52:00 Test Item Value Reference Range Interpretation Comments Aspartate Amino Transf (AST/SGOT) (test 63 5-34 H code = Aspartate Amino Transf (AST/SGOT)) [facility] CenterAlanine Aminotransferase (ALT/SGPT)2018-07-14 14:52:00 Test Item Value Reference Range Interpretation Comments Alanine Aminotransferase (ALT/SGPT) 38 0-55 (test code = 1742-6) [facility] CenterTotal Zhlakfz5026-58-70 14:52:00 Test Item Value Reference Range Interpretation Comments Total Protein (test code = 2885-2) 8.7 6.5-8.1 H [facility] CenterAlbumin2018-10-04 14:52:00 Test Item Value Reference Range Interpretation Comments Albumin (test code = 1751-7) 3.8 3.5-5.0 [facility] CenterGlobulin2018-10-04 14:52:00 Test Item Value Reference Range Interpretation Comments Globulin (test code = 30109-6) 4.9 2.3-3.5 H [facility] CenterAlbumin/Globulin Pmlrd7069-45-68 14:52:00 Test Item Value Reference Range Interpretation Comments Albumin/Globulin Ratio (test code = 0.8 0.8-2.0 1759-0) [facility] CenterAlkaline Bqzblxkppqm2704-45-45 14:52:00 Test Item Value Reference Range Interpretation Comments Alkaline Phosphatase (test code = 103 40-150 6768-6) [facility] CenterCreatine Otixre2462-12-15 14:52:00 Test Item Value Reference Range Interpretation Comments Creatine Kinase (test code = 2157-6) 37 29-168 [facility] CenterAmylase Anucr4575-30-08 14:52:00 Test Item Value Reference Range Interpretation Comments Amylase Level (test code = 1798-8) 63 25-125 [facility] CenterLipase2018-10-04 14:52:00 Test Item Value Reference Range Interpretation Comments Lipase (test code = 3040-3) 40 8-78 [facility] CenterMagnesium Ojdxd0240-91-10 14:52:00 Test Item Value Reference Range Interpretation Comments Magnesium Level (test code = 59446-0) 1.8 1.3-2.1 [facility] CenterUrine Amorphous Olvzvffn2293-47-32 14:41:00 Test Item Value Reference Range Interpretation Comments Urine Amorphous Sediment (test code = FEW FEW 8246-1) [facility] CenterUrine Wnifc7896-08-07 14:41:00 Test Item Value Reference Range Interpretation Comments Urine Mucus (test code = 8247-9) FEW RARE H [facility] CenterUrine [id number] 14:41:00 Test Item Value Reference Range Interpretation Comments Urine WBC (test code = 5821-4) 0-5 0-5 [facility] CenterUrine [id number] 14:41:00 Test Item Value Reference Range Interpretation Comments Urine RBC (test code = 26949-1) 6-10 0-5 H [facility] CenterUrine Ftyvooqw8345-30-71 14:41:00 Test Item Value Reference Range Interpretation Comments Urine Bacteria (test code = 85420-9) FEW NONE [facility] CenterUrine Epithelial Hujtl6758-14-48 14:41:00 Test Item Value Reference Range Interpretation Comments Urine Epithelial Cells (test code = FEW NONE 82964-6) [facility] CenterUrine Amorphous Rgyxsmfw8044-90-93 14:41:00 Test Item Value Reference Range Interpretation Comments Urine Amorphous Sediment (test code = FEW FEW 8246-1) [facility] CenterUrine Xthpf7271-95-97 14:41:00 Test Item Value Reference Range Interpretation Comments Urine Mucus (test code = 8247-9) FEW RARE H [facility] CenterUrine [id number] 14:41:00 Test Item Value Reference Range Interpretation Comments Urine WBC (test code = 5821-4) 0-5 0-5 [facility] CenterUrine [id number] 14:41:00 Test Item Value Reference Range Interpretation Comments Urine RBC (test code = 63317-6) 6-10 0-5 H [facility] CenterUrine Pjanrvgy9793-90-37 14:41:00 Test Item Value Reference Range Interpretation Comments Urine Bacteria (test code = 43341-4) FEW NONE [facility] CenterUrine Epithelial Vykpq0302-12-52 14:41:00 Test Item Value Reference Range Interpretation Comments Urine Epithelial Cells (test code = FEW NONE 65034-0) [facility] CenterUrine Amorphous Zzdcjzun7259-03-23 14:41:00 Test Item Value Reference Range Interpretation Comments Urine Amorphous Sediment (test code = FEW FEW 8246-1) [facility] CenterUrine Kctdz1996-38-33 14:41:00 Test Item Value Reference Range Interpretation Comments Urine Mucus (test code = 8247-9) FEW RARE H [facility] CenterUrine Amorphous Ebqmawhe2695-00-34 14:41:00 Test Item Value Reference Range Interpretation Comments Urine Amorphous Sediment (test code = FEW FEW 8246-1) [facility] CenterUrine Xwwvn1229-23-29 14:41:00 Test Item Value Reference Range Interpretation Comments Urine Mucus (test code = 8247-9) FEW RARE H [facility] CenterProthrombin Uzid5180-13-94 14:39:00 Test Item Value Reference Range Interpretation Comments Prothrombin Time (test code = 5902-2) 26.1 11.9-14.5 H [facility] CenterProthromb Time International Kzwxc9155-54-67 14:39:00 Test Item Value Reference Range Interpretation Comments Prothromb Time International Ratio 2.20 (test code = 6301-6) Oral Anticoagulant Therapy INR Values:1. Low Intensity Therapy 1.5 - 2.02. Moderate IntensityTherapy 2.0 - 3.03. High Intensity Therapy(1) 2.5 - 3.54. High Intensity Therapy(2) 3.0 - 4.05. Panic Value INR > 5.0[facility] CenterActivated Partial Thromboplast Time 2018-07-14 14:39:00 Test Item Value Reference Range Interpretation Comments Activated Partial Thromboplast Time 44.8 23.8-35.5 H (test code = 29048-4) [facility] CenterProthrombin Gbxb6814-22-71 14:39:00 Test Item Value Reference Range Interpretation Comments Prothrombin Time (test code = 5902-2) 26.1 11.9-14.5 H [facility] CenterProthromb Time International Cctux5496-76-58 14:39:00 Test Item Value Reference Range Interpretation Comments Prothromb Time International Ratio 2.20 (test code = 6301-6) Oral Anticoagulant Therapy INR Values:1. Low Intensity Therapy 1.5 - 2.02. Moderate IntensityTherapy 2.0 - 3.03. High Intensity Therapy(1) 2.5 - 3.54. High Intensity Therapy(2) 3.0 - 4.05. Panic Value INR > 5.0[facility] CenterActivated Partial Thromboplast Time 2018-07-14 14:39:00 Test Item Value Reference Range Interpretation Comments Activated Partial Thromboplast Time 44.8 23.8-35.5 H (test code = 83010-1) [facility] CenterProthrombin Swum3634-16-90 14:39:00 Test Item Value Reference Range Interpretation Comments Prothrombin Time (test code = 5902-2) 26.1 11.9-14.5 H [facility] CenterProthromb Time International Sbnkv8761-65-89 14:39:00 Test Item Value Reference Range Interpretation Comments Prothromb Time International Ratio 2.20 (test code = 6301-6) Oral Anticoagulant Therapy INR Values:1. Low Intensity Therapy 1.5 - 2.02. Moderate IntensityTherapy 2.0 - 3.03. High Intensity Therapy(1) 2.5 - 3.54. High Intensity Therapy(2) 3.0 - 4.05. Panic Value INR > 5.0[facility] CenterActivated Partial Thromboplast Time 2018-07-14 14:39:00 Test Item Value Reference Range Interpretation Comments Activated Partial Thromboplast Time 44.8 23.8-35.5 H (test code = 73404-2) [facility] CenterProthrombin Woki0322-65-99 14:39:00 Test Item Value Reference Range Interpretation Comments Prothrombin Time (test code = 5902-2) 26.1 11.9-14.5 H [facility] CenterProthromb Time International Gsziq0173-45-37 14:39:00 Test Item Value Reference Range Interpretation Comments Prothromb Time International Ratio 2.20 (test code = 6301-6) Oral Anticoagulant Therapy INR Values:1. Low Intensity Therapy 1.5 - 2.02. Moderate IntensityTherapy 2.0 - 3.03. High Intensity Therapy(1) 2.5 - 3.54. High Intensity Therapy(2) 3.0 - 4.05. Panic Value INR > 5.0[facility] CenterActivated Partial Thromboplast Time 2018-07-14 14:39:00 Test Item Value Reference Range Interpretation Comments Activated Partial Thromboplast Time 44.8 23.8-35.5 H (test code = 70052-9) [facility] CenterUrine Kvozq1974-44-38 14:35:00 Test Item Value Reference Range Interpretation Comments Urine Color (test code = 5778-6) YELLOW YELLOW [facility] CenterUrine Nfqrrls5191-16-91 14:35:00 Test Item Value Reference Range Interpretation Comments Urine Clarity (test code = 37609-0) SL CLOUDY CLEAR [facility] CenterUrine Specific Lretyvk3982-62-54 14:35:00 Test Item Value Reference Range Interpretation Comments Urine Specific [place] (test code = 1.025 1.010-1.025 5811-5) [facility] CenterUrine lH2768-15-03 14:35:00 Test Item Value Reference Range Interpretation Comments Urine pH (test code = 28037-0) 6 5-7 [facility] CenterUrine Leukocyte Cblwvxxw6011-43-86 14:35:00 Test Item Value Reference Range Interpretation Comments Urine Leukocyte Esterase (test code NEGATIVE NEGATIVE = 5799-2) [facility] CenterUrine Ahukayt6624-09-79 14:35:00 Test Item Value Reference Range Interpretation Comments Urine Nitrite (test code = 72399-6) NEGATIVE NEGATIVE [facility] CenterUrine Ozvlbde6461-54-45 14:35:00 Test Item Value Reference Range Interpretation Comments Urine Protein (test code = 5804-0) NEGATIVE NEGATIVE [facility] CenterUrine Glucose (UA)2018-07-14 14:35:00 Test Item Value Reference Range Interpretation Comments Urine Glucose (UA) (test code = 2349-9) 3+ NEGATIVE H [facility] CenterUrine Hqlhmlc0816-48-29 14:35:00 Test Item Value Reference Range Interpretation Comments Urine Ketones (test code = 38425-4) TRACE NEGATIVE H [facility] CenterUrine Dtfqcqynsyyd7803-85-16 14:35:00 Test Item Value Reference Range Interpretation Comments Urine Urobilinogen (test code = 0.2 0.2-1 91682-1) [facility] CenterUrine Ifnsevprj6014-19-88 14:35:00 Test Item Value Reference Range Interpretation Comments Urine Bilirubin (test code = 1978-6) NEGATIVE NEGATIVE [facility] CenterUrine Hvgzz0451-04-23 14:35:00 Test Item Value Reference Range Interpretation Comments Urine Blood (test code = 15017-5) TRACE NEGATIVE H [facility] CenterUrine Boaki1146-41-23 14:35:00 Test Item Value Reference Range Interpretation Comments Urine Color (test code = 5778-6) YELLOW YELLOW [facility] CenterUrine Pjnhssy6163-09-83 14:35:00 Test Item Value Reference Range Interpretation Comments Urine Clarity (test code = 90108-3) SL CLOUDY CLEAR [facility] CenterUrine Specific Bqxlqda3229-03-47 14:35:00 Test Item Value Reference Range Interpretation Comments Urine Specific [place] (test code = 1.025 1.010-1.025 5811-5) [facility] CenterUrine [id number] 14:35:00 Test Item Value Reference Range Interpretation Comments Urine pH (test code = 04429-1) 6 5-7 [facility] CenterUrine Leukocyte Ykvbxrkj3924-73-69 14:35:00 Test Item Value Reference Range Interpretation Comments Urine Leukocyte Esterase (test code NEGATIVE NEGATIVE = 5799-2) [facility] CenterUrine Idaaqhe6248-85-54 14:35:00 Test Item Value Reference Range Interpretation Comments Urine Nitrite (test code = 89509-4) NEGATIVE NEGATIVE [facility] CenterUrine Hwcpriv9616-38-18 14:35:00 Test Item Value Reference Range Interpretation Comments Urine Protein (test code = 5804-0) NEGATIVE NEGATIVE [facility] CenterUrine Glucose (UA)2018-07-14 14:35:00 Test Item Value Reference Range Interpretation Comments Urine Glucose (UA) (test code = 2349-9) 3+ NEGATIVE H [facility] CenterUrine Pkgtpwn2927-36-07 14:35:00 Test Item Value Reference Range Interpretation Comments Urine Ketones (test code = 52321-4) TRACE NEGATIVE H [facility] CenterUrine Uvuwtafwllol5638-47-78 14:35:00 Test Item Value Reference Range Interpretation Comments Urine Urobilinogen (test code = 0.2 0.2-1 45414-7) [facility] CenterUrine Ufzygixrp0889-51-47 14:35:00 Test Item Value Reference Range Interpretation Comments Urine Bilirubin (test code = 1978-6) NEGATIVE NEGATIVE [facility] CenterUrine Masio9652-40-91 14:35:00 Test Item Value Reference Range Interpretation Comments Urine Blood (test code = 53361-8) TRACE NEGATIVE H [facility] CenterWhite Blood Xkmzu7204-39-74 14:31:00 Test Item Value Reference Range Interpretation Comments White Blood Count (test code = 6690-2) 7.35 4.8-10.8 [facility] CenterRed Blood Arcls3545-97-63 14:31:00 Test Item Value Reference Range Interpretation Comments Red Blood Count (test code = 789-8) 5.00 3.6-5.1 [facility] CenterHemoglobin2018-10-04 14:31:00 Test Item Value Reference Range Interpretation Comments Hemoglobin (test code = 97355-7) 13.2 12.0-16.0 [facility] CenterHematocrit2018-10-04 14:31:00 Test Item Value Reference Range Interpretation Comments Hematocrit (test code = 4544-3) 42.6 34.2-44.1 [facility] CenterMean Corpuscular Tlawji7830-43-23 14:31:00 Test Item Value Reference Range Interpretation Comments Mean Corpuscular Volume (test code = 85.2 81-99 787-2) [facility] CenterMean Corpuscular Ysizvmlzpa4080-74-33 14:31:00 Test Item Value Reference Range Interpretation Comments Mean Corpuscular Hemoglobin (test code 26.4 28-32 L = 785-6) [facility] CenterMean Corpuscular Hemoglobin Qaomrom3871-55-40 14:31:00 Test Item Value Reference Range Interpretation Comments Mean Corpuscular Hemoglobin Concent 31.0 31-35 (test code = 786-4) [facility] CenterRed Cell Distribution Rqhxi7093-95-49 14:31:00 Test Item Value Reference Range Interpretation Comments Red Cell Distribution Width (test code 18.6 11.7-14.4 H = 82899-7) [facility] CenterPlatelet Fcdqt4978-63-95 14:31:00 Test Item Value Reference Range Interpretation Comments Platelet Count (test code = 777-3) 160 140-360 [facility] CenterNeutrophils (%) (Auto)2018-07-14 14:31:00 Test Item Value Reference Range Interpretation Comments Neutrophils (%) (Auto) (test code = 72.5 38.7-80.0 61893-6) [facility] CenterLymphocytes (%) (Auto)2018-07-14 14:31:00 Test Item Value Reference Range Interpretation Comments Lymphocytes (%) (Auto) (test code = 17.7 18.0-39.1 L 736-9) [facility] CenterMonocytes (%) (Auto)2018-07-14 14:31:00 Test Item Value Reference Range Interpretation Comments Monocytes (%) (Auto) (test code = 6.1 4.4-11.3 5905-5) [facility] CenterEosinophils (%) (Auto)2018-07-14 14:31:00 Test Item Value Reference Range Interpretation Comments Eosinophils (%) (Auto) (test code = 2.4 0.0-6.0 713-8) [facility] CenterBasophils (%) (Auto)2018-07-14 14:31:00 Test Item Value Reference Range Interpretation Comments Basophils (%) (Auto) (test code = 1.0 0.0-1.0 706-2) [facility] CenterIM GRANULOCYTES %2018-07-14 14:31:00 Test Item Value Reference Range Interpretation Comments IM GRANULOCYTES % (test code = IM 0.3 0.0-1.0 GRANULOCYTES %) [facility] CenterNeutrophils # (Auto)2018-07-14 14:31:00 Test Item Value Reference Range Interpretation Comments Neutrophils # (Auto) (test code = 5.3 2.1-6.9 751-8) [facility] CenterLymphocytes # (Auto)2018-07-14 14:31:00 Test Item Value Reference Range Interpretation Comments Lymphocytes # (Auto) (test code = 1.3 1.0-3.2 99015-4) [facility] CenterMonocytes # (Auto)2018-07-14 14:31:00 Test Item Value Reference Range Interpretation Comments Monocytes # (Auto) (test code = 742-7) 0.5 0.2-0.8 [facility] CenterEosinophils # (Auto)2018-07-14 14:31:00 Test Item Value Reference Range Interpretation Comments Eosinophils # (Auto) (test code = 0.2 0.0-0.4 711-2) [facility] CenterBasophils # (Auto)2018-07-14 14:31:00 Test Item Value Reference Range Interpretation Comments Basophils # (Auto) (test code = 704-7) 0.1 0.0-0.1 [facility] CenterAbsolute Immature Granulocyte (saif4095-74-82 14:31:00 Test Item Value Reference Range Interpretation Comments Absolute Immature Granulocyte (auto 0.02 0-0.1 (test code = Absolute Immature Granulocyte (auto) [facility] CenterWhite Blood Tyqqw2790-38-34 14:31:00 Test Item Value Reference Range Interpretation Comments White Blood Count (test code = 6690-2) 7.35 4.8-10.8 [facility] CenterRed Blood Dctto9272-80-94 14:31:00 Test Item Value Reference Range Interpretation Comments Red Blood Count (test code = 789-8) 5.00 3.6-5.1 [facility] CenterHemoglobin2018-10-04 14:31:00 Test Item Value Reference Range Interpretation Comments Hemoglobin (test code = 39778-6) 13.2 12.0-16.0 [facility] CenterHematocrit2018-10-04 14:31:00 Test Item Value Reference Range Interpretation Comments Hematocrit (test code = 4544-3) 42.6 34.2-44.1 [facility] CenterMean Corpuscular Wvmmne8762-43-77 14:31:00 Test Item Value Reference Range Interpretation Comments Mean Corpuscular Volume (test code = 85.2 81-99 787-2) [facility] CenterMean Corpuscular Rxwgnlzrbb1473-47-60 14:31:00 Test Item Value Reference Range Interpretation Comments Mean Corpuscular Hemoglobin (test code 26.4 28-32 L = 785-6) [facility] CenterMean Corpuscular Hemoglobin Iboctbm5639-88-83 14:31:00 Test Item Value Reference Range Interpretation Comments Mean Corpuscular Hemoglobin Concent 31.0 31-35 (test code = 786-4) [facility] CenterRed Cell Distribution Hqudf3771-99-95 14:31:00 Test Item Value Reference Range Interpretation Comments Red Cell Distribution Width (test code 18.6 11.7-14.4 H = 03017-6) [facility] CenterPlatelet Stgfz3147-09-51 14:31:00 Test Item Value Reference Range Interpretation Comments Platelet Count (test code = 777-3) 160 140-360 [facility] CenterNeutrophils (%) (Auto)2018-07-14 14:31:00 Test Item Value Reference Range Interpretation Comments Neutrophils (%) (Auto) (test code = 72.5 38.7-80.0 85747-0) [facility] CenterLymphocytes (%) (Auto)2018-07-14 14:31:00 Test Item Value Reference Range Interpretation Comments Lymphocytes (%) (Auto) (test code = 17.7 18.0-39.1 L 736-9) [facility] CenterMonocytes (%) (Auto)2018-07-14 14:31:00 Test Item Value Reference Range Interpretation Comments Monocytes (%) (Auto) (test code = 6.1 4.4-11.3 5905-5) [facility] CenterEosinophils (%) (Auto)2018-07-14 14:31:00 Test Item Value Reference Range Interpretation Comments Eosinophils (%) (Auto) (test code = 2.4 0.0-6.0 713-8) [facility] CenterBasophils (%) (Auto)2018-07-14 14:31:00 Test Item Value Reference Range Interpretation Comments Basophils (%) (Auto) (test code = 1.0 0.0-1.0 706-2) [facility] CenterIM GRANULOCYTES %2018-07-14 14:31:00 Test Item Value Reference Range Interpretation Comments IM GRANULOCYTES % (test code = IM 0.3 0.0-1.0 GRANULOCYTES %) [facility] CenterNeutrophils # (Auto)2018-07-14 14:31:00 Test Item Value Reference Range Interpretation Comments Neutrophils # (Auto) (test code = 5.3 2.1-6.9 751-8) [facility] CenterLymphocytes # (Auto)2018-07-14 14:31:00 Test Item Value Reference Range Interpretation Comments Lymphocytes # (Auto) (test code = 1.3 1.0-3.2 54770-0) [facility] CenterMonocytes # (Auto)2018-07-14 14:31:00 Test Item Value Reference Range Interpretation Comments Monocytes # (Auto) (test code = 742-7) 0.5 0.2-0.8 [facility] CenterEosinophils # (Auto)2018-07-14 14:31:00 Test Item Value Reference Range Interpretation Comments Eosinophils # (Auto) (test code = 0.2 0.0-0.4 711-2) [facility] CenterBasophils # (Auto)2018-07-14 14:31:00 Test Item Value Reference Range Interpretation Comments Basophils # (Auto) (test code = 704-7) 0.1 0.0-0.1 [facility] CenterAbsolute Immature Granulocyte (aiux6456-78-76 14:31:00 Test Item Value Reference Range Interpretation Comments Absolute Immature Granulocyte (auto 0.02 0-0.1 (test code = Absolute Immature Granulocyte (auto) [facility] CenterBedside Azvnuuc6638-56-44 06:44:00 Test Item Value Reference Range Interpretation Comments Bedside Glucose (test code = 30070-9) 171 70-120 H Meter ID: [id number] [facility]Bed[facility] Dkolxwc1398-42-14 06:44:00 Test Item Value Reference Range Interpretation Comments Bedside Glucose (test code = 66432-6) 171 70-120 H Meter ID: [id number] [facility] CenterFERRITIN2018-07-20 16:47:00 Test Item Value Reference Range Interpretation Comments FERRITIN (BEAKER) (test code = 361) 29 ng/mL 5-275 HEPATITIS B CORE ANTIBODY, [id number] 15:24:00 Test Item Value Reference Range Interpretation Comments HEPATITIS B CORE TOTAL ANTIBODY Reactive Nonreactive A (BEAKER) (test code = 497) HEPATITIS B SURFACE [id number] 15:23:00 Test Item Value Reference Range Interpretation Comments HEPATITIS B SURFACE ANTIBODY 1539.3 mIU/mL <8.0 H (BEAKER) (test code = 647) HEPATITIS A ANTIBODY, [id number] 15:23:00 Test Item Value Reference Range Interpretation Comments HEPATITIS A IGG ANTIBODY (BEAKER) Reactive Nonreactive A (test code = 2797) ALPHA FETOPROTEIN (AFP), TUMOR [id number] 15:20:00 Test Item Value Reference Range Interpretation Comments ALPHA-FETOPROTEIN (BEAKER) (test 3.9 ng/mL <10.0 code = 1094) HEPATITIS B SURFACE [id number] 14:54:00 Test Item Value Reference Range Interpretation Comments HEPATITIS B SURFACE ANTIGEN (2) Nonreactive Nonreactive (BEAKER) (test code = 2585) HEPATITIS C [id number] 14:54:00 Test Item Value Reference Range Interpretation [...] L (test code = 2590) COMPREHENSIVE METABOLIC [id number] 14:21:00 Test Item Value Reference Range Interpretation [...] NOT APPLICABLE FOR DIALYSIS PATIEN TS. BILIRUBIN, [id number] 14:21:00 Test Item Value Reference Range Interpretation Comments BILIRUBIN DIRECT (BEAKER) (test 0.5 mg/dL 0.1-0.5 code = 706) CBC W/PLT COUNT & AUTO [id number] 14:14:00 Test Item Value Reference Range Interpretation [...] (BEAKER) (test code = 2801) CT ABDOMEN/PELVIS [id number] 21:58:00 [place] [address] Patient Name: MARLYS GARNETT MR #: [id number] : 1965 Age/Sex: 53/F Req #: [id number] Adm Physician: Ordered by: HUGH COELLO MD Report #: [id number] Location: ER Room/Bed: Procedure: [id number] CT/CT ABDOMEN/PELVIS W Exam Date: 03/27/18 Exam [...] hypertension with trace ascites. Signed by: Dr. Jane Kumari M.D. on 03/27/2018 10:06 PM Dictated By: JANE KUMARI MD 05 Transcribed By: GAYATRI on 03/27/182205 COPY TO: HUGH COELLO MDUrine [id number] 21:32:00 Test Item Value Reference Range Interpretation Comments Urine WBC (test code = 5821-4) 11-20 0-5 [facility] [id number] 21:32:00 Test Item Value Reference Range Interpretation Comments Urine RBC (test code = 85628-0) NONE 0-5 [facility] [id number] 21:32:00 Test Item Value Reference Range Interpretation Comments Urine Bacteria (test code = 76930-2) MODERATE NONE H [facility] Epithelial [id number] 21:32:00 Test Item Value Reference Range Interpretation Comments Urine Epithelial Cells (test code = MANY NONE 77148-6) [facility] [id number] 21:32:00 Test Item Value Reference Range Interpretation Comments Urine Mucus (test code = 8247-9) MANY RARE H [facility] [id number] 21:15:00 Test Item Value Reference Range Interpretation Comments Urine Color (test code = 5778-6) JULIO C YELLOW H [facility] [id number] 21:15:00 Test Item Value Reference Range Interpretation Comments Urine Clarity (test code = 15533-1) CLEAR CLEAR [facility] Specific [id number] 21:15:00 Test Item Value Reference Range Interpretation Comments Urine Specific [place] (test code = 1.030 1.010-1.025 H 5811-5) [facility] [id number] 21:15:00 Test Item Value Reference Range Interpretation Comments Urine pH (test code = 79532-4) 6 5-7 [facility] Leukocyte [id number] 21:15:00 Test Item Value Reference Range Interpretation Comments Urine Leukocyte Esterase (test code NEGATIVE NEGATIVE = 5799-2) [facility] [id number] 21:15:00 Test Item Value Reference Range Interpretation Comments Urine Nitrite (test code = 96061-3) NEGATIVE NEGATIVE [facility] [id number] 21:15:00 Test Item Value Reference Range Interpretation Comments Urine Protein (test code = 5804-0) 1+ NEGATIVE H [facility] Glucose (UA)2018-03-27 21:15:00 Test Item Value Reference Range Interpretation Comments Urine Glucose (UA) (test code = NEGATIVE NEGATIVE 2349-9) [facility] [id number] 21:15:00 Test Item Value Reference Range Interpretation Comments Urine Ketones (test code = 37786-5) 1+ NEGATIVE H [facility] [id number] 21:15:00 Test Item Value Reference Range Interpretation Comments Urine Urobilinogen (test code = 1 0.2-1 65341-1) [facility] [id number] 21:15:00 Test Item Value Reference Range Interpretation Comments Urine Bilirubin (test code = 1978-6) 1+ NEGATIVE H [facility] [id number] 21:15:00 Test Item Value Reference Range Interpretation Comments Urine Blood (test code = 58095-9) NEGATIVE NEGATIVE [facility] [id number] 20:22:00 Test Item Value Reference Range Interpretation Comments Sodium Level (test code = 2951-2) 140 136-145 [facility]Pot[facility] [id number] 20:22:00 Test Item Value Reference Range Interpretation Comments Potassium Level (test code = 2823-3) 3.8 3.5-5.1 [facility] CenterChloride [id number] 20:22:00 Test Item Value Reference Range Interpretation Comments Chloride Level (test code = 2075-0) 105 98-107 [facility] CenterCarbon Dioxide [id number] 20:22:00 Test Item Value Reference Range Interpretation Comments Carbon Dioxide Level (test code = 25 -29 2027-9) [facility] CenterAnion [id number] 20:22:00 Test Item Value Reference Range Interpretation Comments Anion Gap (test code = 73200-1) 13.8 8-16 [facility] CenterBlood Urea [id number] 20:22:00 Test Item Value Reference Range Interpretation Comments Blood Urea Nitrogen (test code = 13 05-05 3094-0) [facility] CenterCreatinine2018-06-17 20:22:00 Test Item Value Reference Range Interpretation Comments Creatinine (test code = 2160-0) 0.85 0.57-1.11 [facility] CenterBUN/Creatinine [id number] 20:22:00 Test Item Value Reference Range Interpretation Comments BUN/Creatinine Ratio (test code = 04-04 3097-3) [facility] CenterEstimat Glomerular Filtration [id number] 20:22:00 Test Item Value Reference Range Interpretation Comments Estimat Glomerular Filtration Rate 60- >60 (test code = 03973-6) Ranges were taken from the National Kidney Disease Education Program and the National Kidney Foundation literature.Reference ranges:60 or greater: [place]06- 59 (for 3 consecutive months): Chronic kidneydisease 15 or less: Kidney failure [facility] CenterGlucose [id number] 20:22:00 Test Item Value Reference Range Interpretation Comments Glucose Level (test code = SIG9917) 260 74-118 H [facility] CenterCalcium [id number] 20:22:00 Test Item Value Reference Range Interpretation Comments Calcium Level (test code = 01436-9) 9.4 8.4-10.2 [facility] CenterTotal [id number] 20:22:00 Test Item Value Reference Range Interpretation Comments Total Bilirubin (test code = 1975-2) 0.7 0.2-1.2 [facility] CenterAspartate Amino Transf (AST/SGOT)2018-03-27 20:22:00 Test Item Value Reference Range Interpretation Comments Aspartate Amino Transf (AST/SGOT) (test 53 5-34 H code = Aspartate Amino Transf (AST/SGOT)) [facility] CenterAlanine Aminotransferase (ALT/SGPT)2018-03-27 20:22:00 Test Item Value Reference Range Interpretation Comments Alanine Aminotransferase (ALT/SGPT) 28 0-55 (test code = 1742-6) [facility] CenterTotal [id number] 20:22:00 Test Item Value Reference Range Interpretation Comments Total Protein (test code = 2885-2) 8.1 6.5-8.1 [facility] CenterAlbumin2018-06-17 20:22:00 Test Item Value Reference Range Interpretation Comments Albumin (test code = 1751-7) 3.3 3.5-5.0 L [facility] CenterGlobulin2018-06-17 20:22:00 Test Item Value Reference Range Interpretation Comments Globulin (test code = 63992-7) 4.8 2.3-3.5 H [facility] CenterAlbumin/Globulin [id number] 20:22:00 Test Item Value Reference Range Interpretation Comments Albumin/Globulin Ratio (test code = 0.7 0.8-2.0 L 1759-0) [facility] CenterAlkaline Vatfsrwxyru2065-02-99 20:22:00 Test Item Value Reference Range Interpretation Comments Alkaline Phosphatase (test code = 92 40-150 6768-6) [facility] CenterWhite Blood [id number] 20:00:00 Test Item Value Reference Range Interpretation Comments White Blood Count (test code = 6690-2) 7.38 4.8-10.8 [facility] CenterRed Blood [id number] 20:00:00 Test Item Value Reference Range Interpretation Comments Red Blood Count (test code = 789-8) 4.18 3.6-5.1 [facility] CenterHemoglobin2018-06-17 20:00:00 Test Item Value Reference Range Interpretation Comments Hemoglobin (test code = 29176-7) 10.4 12.0-16.0 L [facility] CenterHematocrit2018-06-17 20:00:00 Test Item Value Reference Range Interpretation Comments Hematocrit (test code = 4544-3) 33.5 34.2-44.1 L [facility] CenterMean Corpuscular [id number] 20:00:00 Test Item Value Reference Range Interpretation Comments Mean Corpuscular Volume (test code = 80.1 81-99 L 787-2) [facility] CenterMean Corpuscular [id number] 20:00:00 Test Item Value Reference Range Interpretation Comments Mean Corpuscular Hemoglobin (test code 24.9 28-32 L = 785-6) [facility] CenterMean Corpuscular Hemoglobin [id number] 20:00:00 Test Item Value Reference Range Interpretation Comments Mean Corpuscular Hemoglobin Concent 31.0 31-35 (test code = 786-4) [facility] CenterRed Cell Distribution [id number] 20:00:00 Test Item Value Reference Range Interpretation Comments Red Cell Distribution Width (test code 17.1 11.7-14.4 H = 61336-9) [facility] CenterPlatelet [id number] 20:00:00 Test Item Value Reference Range Interpretation Comments Platelet Count (test code = 777-3) 163 140-360 [facility] CenterNeutrophils (%) (Auto)2018-03-27 20:00:00 Test Item Value Reference Range Interpretation Comments Neutrophils (%) (Auto) (test code = 74.6 38.7-80.0 03169-4) [facility] CenterLymphocytes (%) (Auto)2018-03-27 20:00:00 Test Item Value Reference Range Interpretation Comments Lymphocytes (%) (Auto) (test code = 16.1 18.0-39.1 L 736-9) [facility] CenterMonocytes (%) (Auto)2018-03-27 20:00:00 Test Item Value Reference Range Interpretation Comments Monocytes (%) (Auto) (test code = 6.8 4.4-11.3 5905-5) [facility] CenterEosinophils (%) (Auto)2018-03-27 20:00:00 Test Item Value Reference Range Interpretation Comments Eosinophils (%) (Auto) (test code = 1.8 0.0-6.0 713-8) [facility] CenterBasophils (%) (Auto)2018-03-27 20:00:00 Test Item Value Reference Range Interpretation Comments Basophils (%) (Auto) (test code = 0.3 0.0-1.0 706-2) [facility] CenterIM GRANULOCYTES %2018-03-27 20:00:00 Test Item Value Reference Range Interpretation Comments IM GRANULOCYTES % (test code = IM 0.4 0.0-1.0 GRANULOCYTES %) [facility] CenterNeutrophils # (Auto)2018-03-27 20:00:00 Test Item Value Reference Range Interpretation Comments Neutrophils # (Auto) (test code = 5.5 2.1-6.9 751-8) [facility] CenterLymphocytes # (Auto)2018-03-27 20:00:00 Test Item Value Reference Range Interpretation Comments Lymphocytes # (Auto) (test code = 1.2 1.0-3.2 41017-1) [facility] CenterMonocytes # (Auto)2018-03-27 20:00:00 Test Item Value Reference Range Interpretation Comments Monocytes # (Auto) (test code = 742-7) 0.5 0.2-0.8 [facility] CenterEosinophils # (Auto)2018-03-27 20:00:00 Test Item Value Reference Range Interpretation Comments Eosinophils # (Auto) (test code = 0.1 0.0-0.4 711-2) [facility] CenterBasophils # (Auto)2018-03-27 20:00:00 Test Item Value Reference Range Interpretation Comments Basophils # (Auto) (test code = 704-7) 0.0 0.0-0.1 [facility] CenterAbsolute Immature Granulocyte ([id number] 20:00:00 Test Item Value Reference Range Interpretation Comments Absolute Immature Granulocyte (auto 0.03 0-0.1 (test code = Absolute Immature Granulocyte (auto) [facility]
--- NOTE | 2022-02-26 21:03 | ER ---
Nurse's Notes [facility] Name: Leslie Thacker Age: 57 yrs Sex: Female : 1965 Arrival Date: 02/26/2022 Time: 17:35 Bed 23 Private MD: Diagnosis: Acute pharyngitis, unspecified Presentation: 02/26 17:42 Chief complaint: Patient states: PT ARRIVED AMB AOX3 COMPLAINING OF SORE THROAT,CHILLS iw BODY ACHES. Coronavirus screen: Client denies travel out of the [place] in the last 14 days. Ebola Screen: No symptoms or risks identified at this time. Initial Sepsis Screen: Does the patient meet any 2 criteria? No. Patient's initial sepsis screen is negative. Onset of symptoms was February 22, 2022. 17:42 Method Of Arrival: Ambulatory iw 17:42 Acuity: BRADEN 4 iw 17:58 Initial Sepsis Screen: Does the patient have a suspected source of infection? No. iw Patient's initial sepsis screen is negative. Risk Assessment: Do you want to hurt yourself or someone else? Patient reports no desire to harm self or others. Triage Assessment: 17:56 General: Appears in no apparent distress. Pain: Denies pain. EENT: No deficits noted. iw No signs and/or symptoms were reported regarding the EENT system. Cardiovascular: No deficits noted. Respiratory: No deficits noted. GI: No deficits noted. : No deficits noted. Derm: No deficits noted. Musculoskeletal: No deficits noted. 17:58 General: Appears Behavior is calm, cooperative, appropriate for age. iw Historical: - Allergies: 17:46 Dilaudid; iw 17:46 Doxycycline; iw 17:46 hydromorphone; iw 17:46 Keflex; iw - Home Meds: 17:46 levothyroxine 125 mcg tab 1 tab once daily [Active]; spironolactone 50 mg Oral tab 1 iw tab 2 times per day [Active]; furosemide 20 mg Oral tab 1 tab 2 times per day [Active]; atorvastatin 40 mg oral tab 1 tab once daily [Active]; omeprazole 40 mg Oral cpDR 1 cap once daily [Active]; tramadol 50 mg Oral TbDi 50 mg as needed for pain [Active]; trazodone 100 mg Oral tab 1 tab 3 times per day [Active]; Eliquis 2.5 mg oral tab 1 tab 2 times per day [Active]; ursodiol 500 mg Oral tab 2.67 mg/kg 2 times per day [Active]; Xifaxan 550 mg oral tab 1 tab 2 times per day [Active]; promethazine 12.5 mg Oral tab 1 tab every 6 hours [Active]; ondansetron HCl 4 mg Oral tab 1 tab 2 times per day [Active]; - PMHx: 17:46 autoimmune hepatitis; Colitis; DM; DVT; IBSD; Pulmonary Embolism; stage 4 cirrhosis; iw - Immunization history:: Adult Immunizations up to date, Client reports receiving the 1st dose of the Covid vaccine. - Social history:: Smoking status: Patient/guardian denies using tobacco, Patient/guardian denies using The patient lives No barriers to communication noted, The patient works. Screenin:23 Abuse screen: Denies threats or abuse. Denies injuries from another. Nutritional tw5 screening: No deficits noted. Tuberculosis screening: No symptoms or risk factors identified. Fall Risk None identified. Assessment: 21:23 Respiratory: Airway is patent Respiratory effort is even, unlabored, Breath sounds are tw5 clear. EENT: Throat is reddened. Vital Signs: 17:42 Pulse 88; Resp 18; Temp 97.2; Pulse Ox 99% on R/A; Weight 114.76 kg; Height 5 ft. 7 in. iw (170.18 cm); Pain 4/10; 17:54 BP 123 / 73; Pulse 90; Resp 18; Temp 97.2; Pulse Ox 99% ; iw 17:42 Body Mass Index 39.62 (114.76 kg, 170.18 cm) iw ED Course: 17:35 Patient arrived in ED. as 17:45 Triage completed. iw 17:50 Haja Cervantes PA is PHCP. jm 17:50 Aakash Mcnally MD is Attending Physician. jmm 17:58 Arm band placed on right wrist. iw 18:05 COVID-19 SARS RT PCR (Document "Date of Onset" if Symptomatic) Sent. ld1 18:05 Flu Sent. ld1 18:05 Strep Sent. ld1 21:23 Patient has correct armband on for positive identification. Client placed on continuous tw5 cardiac and pulse oximetry monitoring. NIBP monitoring applied. Door closed. 21:23 No provider procedures requiring assistance completed. Patient did not have IV access tw5 during this emergency room visit. Administered Medications: No medications were administered Medication: 21:23 VIS not applicable for this client. tw5 Outcome: 21:03 Discharge ordered by . shamar 21:23 Discharged to home ambulatory. tw5 21:23 Condition: good 21:23 Discharge instructions given to patient, Instructed on discharge instructions, follow up and referral plans. medication usage, Demonstrated understanding of instructions, follow-up care, medications, Prescriptions given X 2. 21:24 Patient left the ED. tw5 Signatures: Haja Cervantes PA PA jmm Martinez, Amelia as Williams, Irene, RN RN Kae Anderson RN RN Alice Cardona tw5
--- NOTE | 2022-02-26 21:04 | EDPHYS ---
Physician Documentation [facility] Name: Leslie Thacker Age: 57 yrs Sex: Female : 1965 Arrival Date: 02/26/2022 Time: 17:35 Bed 23 Private MD: ED Physician Aakash Mcnally HPI: 02/26 17:56 This 57 yrs old Female presents to ER via Ambulatory with complaints of Fever, Cough, jmm Sore Throat, Diarrhea, Sneezing. 17:56 Onset: The symptoms/episode began/occurred gradually, 4 day(s) ago. Modifying factors: jmm there are no obvious modifying factors. Associated signs and symptoms: Pertinent positives: cough, runny nose, sinus congestion, sore throat. The patient has experienced similar episodes in the past. Historical: - Allergies: 17:46 Dilaudid; iw 17:46 Doxycycline; iw 17:46 hydromorphone; iw 17:46 Keflex; iw - Home Meds: 17:46 levothyroxine 125 mcg tab 1 tab once daily [Active]; spironolactone 50 mg Oral tab 1 iw tab 2 times per day [Active]; furosemide 20 mg Oral tab 1 tab 2 times per day [Active]; atorvastatin 40 mg oral tab 1 tab once daily [Active]; omeprazole 40 mg Oral cpDR 1 cap once daily [Active]; tramadol 50 mg Oral TbDi 50 mg as needed for pain [Active]; trazodone 100 mg Oral tab 1 tab 3 times per day [Active]; Eliquis 2.5 mg oral tab 1 tab 2 times per day [Active]; ursodiol 500 mg Oral tab 2.67 mg/kg 2 times per day [Active]; Xifaxan 550 mg oral tab 1 tab 2 times per day [Active]; promethazine 12.5 mg Oral tab 1 tab every 6 hours [Active]; ondansetron HCl 4 mg Oral tab 1 tab 2 times per day [Active]; - PMHx: 17:46 autoimmune hepatitis; Colitis; DM; DVT; IBSD; Pulmonary Embolism; stage 4 cirrhosis; iw - Immunization history:: Adult Immunizations up to date, Client reports receiving the 1st dose of the Covid vaccine. - Social history:: Smoking status: Patient/guardian denies using tobacco, Patient/guardian denies using The patient lives No barriers to communication noted, The patient works. ROS: 17:56 Eyes: Negative for injury, pain, redness, and discharge. [facility] 17:56 Constitutional: Positive for body aches, fever. 17:56 ENT: Positive for sore throat. 17:56 All other systems are negative. Exam: 17:56 Constitutional: This is a well developed, well nourished patient who is awake, alert, jmm and in no acute distress. Head/Face: atraumatic. Eyes: EOMI, no conjunctival erythema appreciated ENT: Moist Mucus Membranes Neck: Trachea midline, Supple Chest/axilla: Normal chest wall appearance and motion. Cardiovascular: Regular rate and rhythm. No edema appreciated Respiratory: Normal respirations, no respiratory distress appreciated Abdomen/GI: Non distended, soft 17:56 Skin: General appearance color normal MS/ Extremity: Moves all extremities, no obvious deformities appreciated, no edema noted to the lower extremities Neuro: Awake and alert Psych: Behavior is normal, Mood is normal, Patient is cooperative and pleasant 17:56 ENT: Posterior pharynx: erythema, that is moderate. Vital Signs: 17:42 Pulse 88; Resp 18; Temp 97.2; Pulse Ox 99% on R/A; Weight 114.76 kg; Height 5 ft. 7 in. iw (170.18 cm); Pain 4/10; 17:54 BP 123 / 73; Pulse 90; Resp 18; Temp 97.2; Pulse Ox 99% ; iw 17:42 Body Mass Index 39.62 (114.76 kg, 170.18 cm) iw MDM: 18:54 Patient medically screened. [facility] 21:02 Data reviewed: vital signs, nurses notes. Counseling: I had a detailed discussion with bruna the patient and/or guardian regarding: the historical points, exam findings, and any diagnostic results supporting the discharge/admit diagnosis, lab results, the need for outpatient follow up, to return to the emergency department if symptoms worsen or persist or if there are any questions or concerns that arise at home. ED course: Patient is alert nontoxic in appearance NAD. No signs respiratory distress. Patient advised follow-up PCP and otherwise given strict return precautions. Patient understood agrees plan of care. 02/26 17:56 Order name: COVID-19 SARS RT PCR (Document "Date of Onset" if Symptomatic); Complete iw Time: 19:17 02/26 17:56 Order name: Flu; Complete Time: 18:59 iw 02/26 17:56 Order name: Strep; Complete Time: 19:01 iw 02/26 19:03 Order name: Throat Culture EDMS Administered Medications: No medications were administered Disposition: 21:56 Co-signature as Attending Physician, Aakash Mcnally MD. rn Disposition Summary: 02/26/22 21:03 Discharge Ordered Location: Home jm Condition: Stable jm Diagnosis - Acute pharyngitis, unspecified jmm Followup: jmm - With: Private Physician - When: 2 - 3 days - Reason: Recheck today's complaints, Continuance of care, Re-evaluation by your physician Discharge Instructions: - Discharge Summary Sheet [facility] - Pharyngitis [facility] Forms: - Medication Reconciliation Form [facility] - Thank You Letter [facility] - Antibiotic Education [facility] - Prescription Opioid Use [facility] Prescriptions: - Zithromax Z-Maxim 250 mg Oral Tablet - take 1 tablet by ORAL route as directed for 5 days Day 1 - take two (2) tablets [facility] one time. 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
[2022-02-26 21:30] VITALS: TEMP 97.2; O2SAT 99
[2022-02-26 21:32] VITALS: BP 123/73
== END 2022-02-26 21:24 | disposition home or self-care (01) ==
LOC: ER 17:32
DX: J02.9 Acute pharyngitis, unspecified (principal); Z20.822 Contact with and (suspected) exposure to COVID-19; K75.4 Autoimmune hepatitis; E11.9 Type 2 diabetes mellitus without complications; Z86.718 Personal history of other venous thrombosis and embolism; Z88.1 Allergy status to other antibiotic agents; Z88.5 Allergy status to narcotic agent
CPT/HCPCS: 87070; 87081; 87804 ×2; 99283; U0003

== ENCOUNTER 2022-06-05 14:09 | Inpatient (IN) | payer OTHER ==
[2022-06-05] MEDS ORDERED: MORPHINE 4 MG/ML SYR ONE ×2 (14:47→17:39)
[2022-06-05] MEDS ORDERED: ONDANSETRON 4 MG/2 ML VIAL ONE ×2 (14:47→17:39)
[2022-06-05] MEDS ORDERED: FAMOTIDINE 20 MG/2 ML VIAL IV ONE (14:48)
--- OUTSIDE RECORDS SUMMARY | 2022-06-05 14:49 | XMS REPORT | Continuity of Care Document ---
:1965 Author Organization [facility] t Address [address] [place] [address] Support Name Relationship Address Phone JEFFREY GUERRIERNIFER(DAUGHTER) D Unavailable [phone] AZEB SÁNCHEZ (SISTER) R Unavailable Unavai lable AZEB WITT R [address] [place] [address] ANASTASIA VELOZ R Unavailable [place], [place] Jessica Freire Child Unavailable [phone] AZEB WITT Unavailable [address] [place] [address] (Sister) Azeb Sánchez Sister [address] [place] [address] (Sister) Azeb Witt Sister [address] [place] [address] Jessica Cullen(Daughter) Daughter Unavailable Victorino/Anastasia Aragon Sister [address] [place] [address] Azeb Witt Daughter [address] [place] [address] Jessica Camejo(Daughter) Daughter [address] [facility] [address] [place] [address] Victorino-Anastasia Aragon Sister [address] [place], [place] AZEB WITT Unavailable K [phone] [place] [address] NONE, OTHER Unavailable [facility] [phone] [place] [address] jessica Camejo Daughter [address] [place] [address] Care Team Providers Name Role Phone SHANELLE BHAVESH Primary Care Physician Unavailable miguel ángel Attending Clinician Unavailable jamaal Attending Clinician Unavailable IVELISSE MARES Attending Clinician Unavailable TOM MANN Attending Clinician Unavailable Laurie Jordan MD Attending Clinician BHAVESH TIMMONS Attending Clinician Unavailable IRVIN AIKEN Attending Clinician Unavailable CLAU FOWLER Attending Clinician Unavailable Katey Olsen RN Attending Clinician Unavailable Tom Mann MD Attending Clinician Alan COOPER, Cam Whitten Attending Clinician CAM PHILLIPS Attending Clinician Unavailable Penny Sabillon MA Attending Clinician Unavailable LALI CHATTERJEE Attending Clinician Unavailable BETITO BECKER Attending Clinician Unavailable DOE MILLS Attending Clinician Unavailable EDYTA PERALES Attending Clinician Unavailable Rose Carmona MA Attending Clinician Unavailable Kostas Shaffer MD Attending Clinician DEWAYNE LEUNG Attending Clinician Unavailable Dewayne Cheema Attending Clinician IVELISSE MARES III Attending Clinician Unavailable Mariely Stephen Attending Clinician MARIELY JOSEPH Attending Clinician Unavailable CYNDI BENNETT Attending Clinician Unavailable José Miguel TAPIA MD, Thomas R Attending Clinician MANASA TURNER Attending Clinician Unavailable Vivian Schmidt Attending Clinician HUGH COELLO Attending Clinician Unavailable Ivelisse Mares Attending Clinician Archana Rivero MD Attending Clinician [phone] Karime COOPER, Kip Meneses Attending Clinician Jose RN OPERATING ROOM, ROLLS BAKER, Courtney Malhotra Attending Clinician Unavailable Shanelle FRIEDMAN, Bhavesh Attending Clinician Hugh Howell MD Attending Clinician Elana FAYE, Rene Thomas Attending Clinician Yared Encinas MD Attending Clinician Desiree FRIEDMAN, Clau Attending Clinician Angel BRINELL TESTER, Katey Attending Clinician KATEY MOSQUEDA Attending Clinician Unavailable German FAIR, Kendal Manriquez Attending Clinician Unavailable LAURIE JORDAN Attending Clinician Unavailable 1, [facility] Room Attending Clinician Unavailable RENE HUITRON Attending Clinician Unavailable Benjy Adams MD Attending Clinician Kristyn Haley Attending Clinician Unavailable DOE MILLS Attending Clinician Unavailable Narendra COOPER, Clifton Attending Clinician CLIFTON BROWNING Attending Clinician Unavailable Davida Dillon MD Attending Clinician Varun Mejias MD Attending Clinician Hien Malcolm MD Attending Clinician Umu Webb MD Attending Clinician Laurie Jordan MD Attending Clinician Lazaro Rodriguez Attending Clinician Unavailable Corinne Almazan RN Attending Clinician Unavailable Berna Goins MA Attending Clinician Unavailable Phong Serrato MA Attending Clinician Unavailable Shaniqua HARMAN, Manasa Attending Clinician Rivera Coello MD Attending Clinician ALONZO HOWELL Attending Clinician Unavailable MAAME MAYERS Attending Clinician Unavailable Beulah Montana NP Attending Clinician Elvin Dubois Attending Clinician [phone] Federica Jane Attending Clinician Unavailable Ellen Govea Attending Clinician Unavailable Antonia Orosco Attending Clinician Unavailable Doctor Unassigned, Rico Attending Clinician Unavailable Jl FAIR, Pauly Hickman Attending Clinician Unavailable Jeaneth FRIEDMAN, Hugh Attending Clinician Shar FRIEDMAN, Tierra Attending Clinician Liliam FRIEDMAN, Jose Attending Clinician Winsome FRIEDMAN, Hugh Attending Clinician HUGH ERIC Attending Clinician Unavailable Krys Mendosa Attending Clinician Unavailable Nelli FRIEDMAN, Irvin Attending Clinician Angel FRIEDMAN, Sudheer Klein Attending Clinician [phone] Neli FRIEDMAN, Cyndi Tse Attending Clinician [phone] Tom Mann MD Attending Clinician Elana FAYE, Rene Thomas Attending Clinician TRAY AVENDAÑO Attending Clinician Unavailable Mya FRIEDMAN, Marilyn Attending Clinician Uriel REID, Jose Spencer Attending Clinician [phone] Lina FRIEDMAN, Milton Pantoja Attending Clinician [phone] ADÁN MARTIN Attending Clinician Unavailable [facility] Attending Clinician Unavailable Kehinde FRIEDMAN, Malorie Pichardo Attending Clinician [phone] Adán FRIEDMAN, Montano Attending Clinician Syed FRIEDMAN, Rosa Malhotra Attending Clinician Provider, Historical Attending Clinician Unavailable Rahel FRIEDMAN, Arielle Connelly Attending Clinician Mari FRIEDMAN, Janny Attending Clinician NATHAN AMADOR Attending Clinician Unavailable Don FAIR, BSN, Nikolas Attending Clinician Unavailable Evelin FAYE, Kristyn El Attending Clinician [phone] KASIA VAUGHN Attending Clinician Unavailable NASRIN PITTMAN Attending Clinician Unavailable LILA ESCALANTE V Attending Clinician Unavailable AMBER GOMES Attending Clinician Unavailable DEWAYNE PEREZ Attending Clinician Unavailable IVELISSE MARES Admitting Clinician Unavailable TOM MANN Admitting Clinician Unavailable DEWAYNE LEUNG Admitting Clinician Unavailable UMU WEBB Admitting Clinician Unavailable Shar FRIEDMAN, Tierra Admitting Clinician NATHAN AMADOR Admitting Clinician Unavailable TIAGO WITT Admitting Clinician Unavailable Elvin Dubois Unavailable [id number] Payers Payer Name Policy Type Policy Number Effective Date Expiration Date S gloria Sliding Fee - Cat P [id number] 2020 2021 1 00:00:00 00:00:00 Sliding Fee - Cat S NONE 1 MEDICARE A B [id number] 2019 2020 00:00:00 00:00:00 [facility] STAR [id number] 2020 PLAN 00:00:00 UNITED MEDICARE [id number] 2020 HMO 00:00:[address] [facility] [id number] 2019 00:00:00 BUI [id number] 2019 [employer] 00:00:00 [facility] [id number] MEDICARE PART A [id number] \\T\\ B - MEDICARE [employer] PLAN [id number] HMO - BUI [facility] DUAL [id number] 2021 COMP HMO D SNP 00:00:[address] [facility] [id number] 2020 00:00:00 [facility] [id number] [address] [facility] Star Com 00:00:00 Patient Medical [facility] [id number] [address] [facility] Mcr 00:00:00 Patient [facility] Bui [id number] [address] [facility] Marketplace 00:00:00 Patient Medical [facility] [id number] [facility] Patient [facility] Bui Market [id number] [facility] Patient Medical Center Problems Condition Condition Condition Status Onset Resolution Last Treating Co mments Source Name Details Category Date Date Treatment Clinician Date Leg Leg Disease Active [facility] swelling [facility]-05 [facility] Arthritis Arthritis Disease Active [facility] of of 7-29 [facility] carpometac carpometac 00:00: Me dical arpal arpal 00 [place] (CMC) (CMC) joint of joint of right right thumb thumb Numbness Numbness Disease Active [facility] and and 720 [facility] tingling tingling 00:00: of in both in both 00 Medicin hands hands e 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 and stress and 630 Co llege urge urge 00:00: of urinary urinary 00 Medicin incontinen incontinen e ce ce Fracture Fracture Disease Active [facility] r of tooth of tooth 630 Colleg e 00:00: of 00 Medicin e COVID-19 COVID-19 Disease [facility] Medical 00 [place] Hypothyroi Hypothyroi Disease Active 2019-10 [facility] d 0-22 College 00:00: of 00 Medicin e Hypothyroi Condition Active 2019-102020-08-02 [facility] d 0-22 08:44:00 en, Elvin Commu ni 00:00: C ty 00 Health Liver Condition Active 2019-102020-08-02 [facility] Legacy cirrhosis 0-22 08:44:00 en, Elvin Co mmuni 00:00: C ty 00 Health Small Small Disease Active [facility] bowel bowel 8-13 [place] obstructio obstructio 00:00: of n (HCCode) n (HCCode) 00 Ia dicin e Degenerati Degenerati Disease Active [facility] ve ve 5-28 [facility] arthritis arthritis 00:00: Medi stephani of distal of distal 00 Cent er interphala interphala ngeal ngeal joint of joint of ring ring finger of finger of right hand right hand Sicca Sicca Disease Active [facility] 5-13 College 00:00: of 00 Medicin e Abdominal Abdominal Disease Active [facility] bloating bloating 5-13 Colleg e 00:00: of 00 Medicin e Abdominal Abdominal Disease Active [facility] distention distention 5-13 Co llege 00:00: of 00 Medicin e Age-relate Age-relate Disease Active [facility] d nuclear d nuclear 02-20 [place] [facility] cataract cataract 00:00: of of both of both 00 Medicin eyes eyes e Alternatin Alternatin Disease Active [facility] g g 02-20 College constipati constipati 00:00: of on and on and 00 Medicin diarrhea diarrhea e Back pain Back pain Disease Active [facility] 02-20 [facility] 00:00: of 00 Medicin e Elevated Elevated Disease Active [facility] anti-tissu anti-tissu 02-20 Co llege e e 00:00: of transgluta transgluta 00 Me dicin minase minase e (tTG) IgA (tTG) IgA level level Elevated Elevated Disease Active [facility] C-reactive C-reactive 02-20 Co llege protein protein 00:00: of (CRP) (CRP) 00 Medicin e Elevated Elevated Disease Active [facility] sed rate sed rate 02-20 Colleg e (elev SR) (elev SR) 00:00: of 00 Medicin e Encounter Encounter Disease Active [facility] for for 02-20 [place] long-term long-term 00:00: of (current) (current) 00 Medi praneeth use of use of e high-risk high-risk medication medication Epigastric Epigastric Disease Active [facility] pain pain 02-20 [facility] 00:00: of 00 Medicin e Finger Finger Disease Active [facility] pain, pain, 02-20 [place] right right 00:00: of 00 Medicin e Hereditary Hereditary Disease Active [facility] and and 02-20 [place] idiopathic idiopathic 00:00: of peripheral peripheral 00 Ia dicin neuropathy neuropathy e History of History of Disease Active [facility] DVT (deep DVT (deep 02-20 [place] vein vein 00:00: of thrombosis thrombosis 00 Me dicin ) ) e History of History of Disease Active [facility] gastrointe gastrointe 02-20 Co llege stinal stinal 00:00: of procedure procedure 00 Medi praneeth e Left leg Left leg Disease Active [facility] pain pain 02-20 [place] 00:00: of 00 Medicin e Myalgia Myalgia Disease Active [facility] 02-20 College 00:00: of 00 Medicin e Nausea and Nausea and Disease Active [facility] vomiting vomiting - Colleg e 00:00: of 00 Medicin e Numbness Numbness Disease Active [facility] r and and 5 College tingling tingling 00:00: of in left in left 00 Medicin hand hand e Numbness Numbness Disease Active [facility] and and 13 [place] tingling tingling 00:00: of of both of both 00 Medicin feet feet e Osteoarthr Osteoarthr Disease Active [facility] itis itis - College 00:00: of 00 Medicin e Other Other Disease Active [facility] fecal fecal 02-20 College abnormalit abnormalit 00:00: of ies ies 00 Medicin e PAD PAD Disease Active [facility] (periphera (periphera 5-13 Co llege l artery l artery 00:00: of disease) disease) 00 Medici n (HCCode) (HCCode) e Positive Positive Disease Active [facility] r autoantibo autoantibo 02-20 Co llege dy dy 00:00: of screening screening 00 [facility] praneeth for celiac for celiac e disease disease Refractive Refractive Disease Active Samra garcia error error 02-20 College 00:00: of 00 Medicin e Sicca Sicca Disease Active [facility] (HCCode) (HCCode) 02-20 Colleg e 00:00: of 00 Medicin e Vitreous Vitreous Disease Active [facility] r syneresis syneresis - [place] [facility] of both of both 00:00: of eyes eyes 00 Medicin e Arthritis Arthritis Disease Active [facility] of finger of finger 5-13 [facility] of right of right 00:00: of hand hand 00 Medicin e PAD PAD Disease Active [facility] (periphera (periphera 5-13 Elena kes l artery l artery 00:00: Medica l disease) disease) 00 Center Polyarthro Polyarthro Disease Active [facility] dominga dominga 5-13 [facility] Center Hepatic Hepatic Disease Active [facility] encephalop encephalop 2-06 Elena kes athy athy 00:00: Medical 00 Center Hepatitis Hepatitis Disease Active [facility] B core B core 2-06 [facility] antibody antibody 00:00: Medica l positive positive 00 Center Illness Illness Disease Active 2018-10 [facility] anxiety anxiety 0-02 College disorder disorder 00:00: of 00 Medicin e 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 0-02 Elena kes disorder, disorder, 00:00: Medi stephani recurrent recurrent 00 Cent er episode, episode, moderate moderate UGIB UGIB Disease Active [facility] (upper (upper 8-16 [facility] gastrointe gastrointe 00:00: Me dical stinal stinal 00 [place] bleed) bleed) Insulin Insulin Disease Active [facility] dependent dependent 16 [facility] type 2 type 2 00:00: of diabetes diabetes 00 Medici n mellitus mellitus e (HCCode) (HCCode) Cirrhosis Cirrhosis Disease Active [facility] (HCCode) (HCCode) 16 Colleg e 00:00: of 00 Medicin e Obesity, Obesity, Disease Active [facility] Class III, Class III, 7-03 Elena kes BMI BMI 00:00: Medical 40-49.9 40-49.9 00 Center (morbid (morbid obesity) obesity) Obesity, Obesity, Disease Active [facility] Class III, Class III, 7-03 Elena kes BMI BMI 00:00: Medical 40-49.9 40-49.9 00 [place] (morbid (morbid obesity) obesity) Abdominal Abdominal Disease Active [facility] pain pain 7-02 [facility] 00:[facility]: Medical 00 [place] Portal Portal Disease Active [facility] hypertensi hypertensi 2-15 Elena kes on on 00:00: Medical 00 [place] Fatty Fatty Disease Active [facility] liver liver 2-15 [facility] 00:[facility]: Medical 00 Center Metabolic Metabolic Disease Active [facility] syndrome syndrome 2-15 [facility] 00:00: Medical 00 [place] Abnormal Abnormal Disease Active Last [facility] liver liver 720 [facility] enzymes enzymes 00:00: t & Plan: Medic al 00 [facility] g of this note might be different [...] that Class 3 Class 3 Disease Active Last [facility] severe severe 04-29 Assessmarylou Mora obesity in obesity in 00:00: t & Plan: Medical adult adult 00 [facility] g of this note might be [...] complicat ions. The assessmen t of a patrol captain or nutrition ist may be beneficia l.I discussed the following weight loss technique s:(1) Decreasin g portion size. (2) Avoid eating in front of [employer] or computers . Eat at a [...] Disease Active Last [facility] for for 04-29 Assessmarylou Mora endocrine/ endocrine/ 00:00: t & Plan: Medical metabolic/ metabolic/ 00 [facility] immunity immunity g of this disorders disorders note might be different from the original. Serologic al tests will be completed to determine the presence of immunity to hepatitis A and B. If found susceptib le she will be referred to her primary care provider to consider the administr ation of the appropria te vaccines. Cirrhosis Cirrhosis Disease Active Last [facility] of liver of liver 04-29 Assessmarylou Gomez es without without 00:00: t & Plan: Medic al ascites ascites [facility] g of this note might be different [...] and hyperlipi demia Pulmonary Pulmonary Disease Active [facility] embolism embolism 04-29 Assessmen Jason wheat 00:00: t & Plan: Medical 00 [facility] g of this note might be different from the original. 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 , S/p IVC Filter and on warfarin Osteophyte Osteophyte Disease Active [facility] of hand of hand 16 [place] 00:00: of 00 Medicin e Flexor Flexor Disease Active [facility] tenosynovi tenosynovi 01-24 Co llege tis of tis of 00:00: of finger finger 00 Medicin e Osteophyte Osteophyte Disease Active [facility] of hand of hand 16 [place] 00:00: of 00 Medicin e Dyspnea Problem Active [facility] Allergies, Adverse Reactions, Alerts Allergy Allergy Status Severity Reaction(s) Onset Inactive Treating Comm ents Source Name Type Date Date Clinician Latex Propensi Active [facility] ty to 06-12 [place] adverse 00:00: of reaction 00 Medicin s to e substanc e Warfarin Propensi Active 1pt [facility] ty to 06-12 refusing [place] adverse 00:00: brand of reaction 00 name [...] blood issues. pt wants generic = warfarin Hydromor Propensi Active Halluc[facility] phone ty to ns 8-12 ity of (Bulk) adverse 00:00: [place] reaction 00 Medical s Branch Doxycycl Propensi Active Other - See 2020-0 ABD pain Univers ine ty to comments 812 ity of adverse 00:00: [place] reaction 00 Medical s Branch Cephalex Propensi Active Other - See 2020-0 ABD pain Univers in ty to comments 05-22 ity of adverse 00:00: [place] reaction 00 Medical s Branch ADHESIVE Drug Active Rash 2020-0 Univers Class 8-12 ity of 00:00: [place] 00 Medical Branch HYDROMOR DRUG Active Hallucinates 2019-0 Un armando PHONE 12 ity of (BULK) 00:00: [place] 00 Medical Branch DOXYCYCL DRUG Active Other-Cmnt 2020-0 Univ ers INE INGREDI 8 ity of 00:00: [place] 00 Medical Branch CEPHALEX DRUG Active Other-Cmnt 2020-0 Univ ers IN INGREDI 05-22 ity of 00:00: [place] 00 Medical Branch Adhesive Propensi Active Rash 2020-0 Univer s ty to 8 ity of adverse 00:00: [place] reaction 00 Medical s Branch Adhesive Propensi Active Rash 2019-0 [facility] ty to 8-12 [place] adverse 00:00: of reaction 00 Medicin s to e substanc e KEFLEX Drug Active High 2020-0 [facility] allergy [...] Rash 2019-[address] [facility] Allergy 4- paper [facility] 00:00: tape Medical 00 Center Fluconaz Drug Active Rash 2019-[address] [facility] [facility] ole Allergy 4-02 [facility] 00:00: Medical 00 Center ADHESIVE Allergy Active Low Rash 2019-0 [facility] 4-02 00:00: 00 FLUCONAZ Allergy Active Low Rash 2019-0 [facility] OLE 4-02 00:00: 00 Dapaglif Propensi Active Rash 2019-0 [facility] jessican ty to 2-13 [place] adverse 00:00: of reaction 00 Medicin s to e drug Doxycycl Propensi Active Mild 2017- [facility] ine ty to 0-04 [place] adverse 00:00: of reaction 00 Medicin s to e drug Cephalex Allergy Active Mild 2017-[address] [facility] in to 0-04 [facility] substanc 00:[facility]: Patient e 00 Medical Center Doxycycl Allergy Active Mild 2017- [facility] ine to 0-04 [facility] substanc 00:00: Patient e 00 Medical Center Hydromor Allergy Active Mild HALLUCINATIO 2017- [facility] phone to NS 0-04 [facility] substanc 00:00: Patient e 00 Medical Center Hydromor Propensi Active Other (See hallucina [facility] phone ty to Comments) 7 tion [facility] (Bulk) adverse 00:00: Medical reaction 00 Center s Cephalex Propensi Active Nausea And [facility] in ty to Vomiting 04-29 [facility] adverse 00:00: Medical reaction 00 Center s Hydromor Propensi Active Hallucinatio Became Yon phone ty to ns 04-29 [facility] adverse 00:00: violentOt of reaction 00 her Medicin s to reaction( e drug s): Other (See Comments) hallucina tionhallu cination Cephalex Propensi Active Other (See "makes me [facility] in ty to Comments) 04-29 sick" College adverse 00:00: of reaction 00 Medicin s to e drug Doxycycl Propensi Active " makes [facility] ty to 04-29 me sick" [place] Hyclate adverse 00:00: of reaction 00 Medicin s to e drug Cephalex Drug Active Nausea And [facility] in Allergy Vomiting 04-29 [facility] 00:[facility]: Medical 00 Center Doxycycl Drug Active Nausea And [facility] ine Allergy Vomiting 04-29 [facility] Hyclate 00:00: Medical 00 Center Hydromor Drug Active Other (See hallucina [facility] phone Allergy Comments) 04-29 tion [facility] (Bulk) 00:00: Medical 00 Center HYDROMOR Allergy Active High Other [facility] PHONE 04-29 (BULK) 00:00: 00 DOXYCYCL Allergy Active High N\\T\\V 2017-0 [facility] INE 04-29 HYCLATE 00:00: 00 CEPHALEX Allergy Active High N\\T\\V 2017-0 [facility] IN 04-29 00:00: 00 Cephalex Propensi Active Other (See 2008-10 "makes me Yon in ty to Comments) 10-22 sick" College adverse 00:00: of reaction 00 Medicin s to e drug Cephalex DA Active [place] 2008-10 [facility] in 10-22 Clear Monohydr 00:00: [place] ate 00 [facility] adhesive DA Active [place] 2008-10 [facility] tape 10-22 Clear 00:00: Costello 00 [facility] Adhesive Propensi Active [facility] Tape ty to [place] adverse of reaction Medicin s to e substanc e Hydromor Propensi Active [facility] phone ty to [facility] Hcl adverse of reaction Medicin s to e drug cephalex DA Active [facility] in [facility] Patient [facility] doxycycl DA Active [facility] ine [facility] Patient [facility] hydromor DA Active [facility]I phone [facility] Family History Family Member Diagnosis Comments Start Date Stop Date Source Natural father Depression [facility] Natural father Diabetes [facility] Natural father High Blood Pressure [facility] Natural father High Cholesterol [facility] Natural father Prostate Cancer [facility] Natural father Cancer [facility] Natural father Diabetes [facility] Maternal grandfather Prostate Cancer [facility]aternal grandfather Alzheimer's disease [facility] Maternal grandfather Other [facility] Maternal grandmother Stroke [facility] Maternal grandmother Anuerysm [facility] Maternal grandmother Stroke [facility] Natural mother Depression [facility] Natural mother Heart Attack [facility] Natural mother High Blood Pressure [facility] Natural mother High Cholesterol [facility] Natural mother Heart disease [facility] Paternal grandmother Cancer [facility] Social History Social Habit Start Date Stop Date Quantity Comments Source History of tobacco Cigarette Smoker [facility] of use Medicine Exposure to Not sure [facility] Colleg e of SARS-CoV-2 (event) Medici ne History SDOH [facility] Alcohol Std Drinks Medica l Center History SDOH [facility] Alcohol Binge Medical [address] [facility] History SDOH [facility] Alcohol Comment Medical C enter Cigarettes smoked 2022-06-01 2022-06-01 [facility] (pack per 00:00:00 00:00:00 Medicin e day) - Reported Cigarette 2022-06-012022-06-01 [facility] College of pack-years 00:00:00 00:00:00 Medicine Alcohol intake 2022-02-12 2022-02-[address] [facility] 00:00:00 00:00:00 non-drinker of Medical Ce nter alcohol (finding) Education 2020-05-23 2020-05-23 21 University of 00:00:00 00:00:00 [facility] History [facility] 2020-05-23 2020-05-23 5 University o f Financial 00:00:00 00:00:00 [facility] History [facility] Food 2020-05-23 2020-05-23 1 Univers ity of Worry 00:00:00 00:00:00 [facility] History [facility] Food 2020-05-23 2020-05-23 1 Univers ity of Scarcity 00:00:00 00:00:00 [facility] History [facility] 2020-05-23 2020-05-23 2 University o f Transport Med 00:00:00 00:00:00 [facility] 2020-05-23 2020-05-23 2 University o f Transport Non-Med 00:00:00 00:00:00 [facility] edical Branch Tobacco Comment 2020-05-23 2020-05-23 quit 2015 Universit y of 00:00:00 00:00:00 [facility] History [facility] 2019-01-04 2019-01-[address] [facility] Alcohol Frequency 00:00:00 00:00:00 [facility] Tobacco use and 2018-04-29 2018-04-[address] [facility] kes exposure 00:00:00 00:00:00 [facility] Sex Ass[birth year] At [birth year] Universit y [facility] 00:00:00 00:00:[address] [facility] Smoking Status Start Date Stop Date Source Former smoker 2018-04-29 00:00:00 2018-04-29 00:00:[address] [facility] Medications Ordered Filled Start Stop Current Ordering Indication Dosage Frequency Signature Comments Components Source Medication Medication Date Date Medication? Clinician (SIG) Name Name nystatin Yes Apply [facility] (MYCOSTATIN 8-22 topically Col [facility]ge ) ointment 13:19: two times of 22 daily. Medicin e dicyclomine Yes [id number] TAKE 1 [facility] (BENTYL) 10 8-22 CAPSULE BY Co llege MG capsule 00:00: MOUTH of 00 TWICE A Medicin DAY e colestipol Yes 1g Take 1 [facility] (COLESTID) 8-22 Tablet by [facility] egquintin 1 g tablet 00:00: mouth two of 00 times Medicin daily. e metoclopram Yes 5mg Take 1 [facility] serena 8-22 Tablet by [facility] (REGLAN) 5 00:00: mouth 3 of MG tablet 00 times Medicin daily e (before meals). loperamide Yes 1{tbl} Take 1 [facility] (IMODIUM 8-22 Tablet by Isabell Santoyo) 2 MG 00:00: mouth of tablet 00 daily as Medicin needed for e Diarrhea. escitalopra Yes [id number] 20mg Take 1 [facility] m (LEXAPRO) 8-15 Tablet by Col lege 20 MG 00:00: mouth of tablet 00 daily. Medicin e atorvastati Yes TAKE 1 [facility] (LIPITOR) 8-05 TABLET BY Col lege 40 MG 00:00: MOUTH of tablet 00 EVERY DAY Medicin e Glucose Yes USE [facility] Blood 8-04 DIRECTED 4 [facility] Strips 00:00: TIMES A of (ONETOUCH 00 DAY Medicin VERIO) e Apixaban Yes 2.5mg Take 2.5 [facility] or (ELIQUIS) 7-29 mg by [facility] 2.5 MG TABS 00:00: mouth two o f 00 times Medicin daily. e carvedilol Yes [id number] TAKE 1 [facility] (COREG) 7-14 9105 TABLET BY [facility] 6.25 MG 00:00: MOUTH of tablet 00 TWICE A Medicin DAY WITH e MEALS Insulin Yes [id number] 70U INJECT 70 [facility] Detemir 6-24 UNITS [facility] (LEVEMIR 00:00: DIRECTED of FLEXTOUCH) 00 EVERY Medicin 100 UNIT/ML MORNING. e SOPN omeprazole Yes [id number] TAKE 1 [facility] (PRILOSEC) 6-24 CAPSULE BY Col lege 40 MG 00:00: MOUTH of capsule 00 EVERY DAY Medicin e levothyroxi Yes [id number] TAKE 1 [facility] ne 6-22 9105 TABLET BY [facility] (SYNTHROID) 00:00: MOUTH of 125 MCG 00 EVERY DAY Medicin tablet e Ursodiol Yes TAKE 1 [facility] 500 MG TABS 6-10 TABLET BY Col lege 00:00: MOUTH of 00 TWICE A Medicin DAY e azithromyci Yes [id number] Take as [facility] n 5-19 directed [facility] (ZITHROMAX) 00:00: on package of 250 MG 00 labeling. Medicin tablet Two pills e by mouth for the first day and then 1 pill daily until done. spironolact Yes TAKE 1 [facility] one 5-06 TABLET BY [facility] (ALDACTONE) 00:00: MOUTH of 50 MG 00 EVERY DAY Medicin tablet e ursodioL Yes 500mg QD Take [address] (ACTIGALL) 5-05 mg by [facility] 500 MG 21:43: mouth Medical tablet 50 daily. Center levothyroxi Yes 125ug Take [address] ne 5-05 mcg by [facility] (SYNTHROID, 21:31: mouth Medic al LEVOTHROID) 07 Every Center 125 MCG morning on tablet an empty stomach. promethazin Yes 12.5mg Take 12.[address] e 5-05 mg by [facility] (PHENERGAN) 21:31: mouth Medic al 12.5 MG 07 every 12 Center tablet (twelve) hours as needed for Nausea . atorvastati Yes 40mg QD Take [address] n (LIPITOR) 5-05 by mouth Luke s 40 MG 21:31: daily. Medical tablet 07 Center dicyclomine Yes 10mg Take [address] (BENTYL) 10 5-05 by mouth 4 Elena kes MG capsule 21:31: (four) Medic al 07 times Center daily as needed . escitalopra Yes 20mg QD Take [address] m oxalate 5-05 by mouth [facility] (LEXAPRO) 21:31: daily. Medica l 20 MG 07 Center tablet insulin Yes 70U Inject 70 [facility] detemir 5-05 Units [facility] U-100 21:31: subcutaneo Medica l (LEVEMIR) 07 usly once Cente r 100 unit/mL in morning injection . omeprazole Yes 40mg QD Take [address] (PRILOSEC) 5-05 by mouth [facility] 40 MG 21:31: daily. Medical capsule 07 Center traMADoL Yes 50mg Take [address] (ULTRAM) 50 5-05 by mouth Luke s mg tablet 21:31: every 6 Medic al 07 (six) Center hours as needed for Pain. home Yes continuous [facility] insulin 5-05 [facility] pump Misc 21:31: Insulin Medic al 07 pump . Center carvediloL 2021- No 12.5mg Take 12.[address] (COREG) 5-05 05-05 mg by [facility] 12.5 MG 12:16: 00:00 mouth 2 Medica l tablet 29 :00 (two) Center times daily with breakfast and dinner. furosemide Yes Unspecified 20mg Q.5D Take [address] (LASIX) 20 5-05 cirrhosis tablet (20 [facility] MG tablet 00:00: of liver mg total) Medical 00 (HCC) by mouth 2 Center (two) times daily. spironolact Yes 50mg Q.5D Take [address] one 5-05 tablet (50 [facility] (ALDACTONE) 00:00: mg total) M edical 50 MG 00 by mouth 2 Center tablet (two) times daily. rifAXIMin Yes Hepatic 550mg Q.5D Take [address] (Xifaxan) 5-05 encephalopa tablet L ukes 550 mg Tab 00:00: thy (HCC) (550 mg Medical 00 total) by Center mouth 2 (two) times daily. Insulin Yes [id number] INJECT 40 [facility] Lispro, 1 4-18 UNITS INTO [facility] Unit Dial, 00:00: THE SKIN of (HUMALOG 00 THREE Medicin KWIKPEN) TIMES e 100 UNIT/ML DAILY WITH SOPN MEALS. Insulin Yes [id number] APPLY POD [facility] Disposable 4-08 TOPICALLY [facility] Pump 00:00: AND CHANGE of (OMNIPOD 00 EVERY 72 Medicin DASH 5 PACK HOURS e PODS) MISC Glucagon Yes [id number] 3mg 3 mg by [facility] (BAQSIMI 4-04 Nasal [facility] TWO PACK) 3 00:00: route as of MG/DOSE 00 needed for Medici n POWD Other (if e unresponsi ve and call 911 if not waking up). may repeat once more in 15min trazodone Yes 50mg TAKE 1 [facility] (DESYREL) 2-11 TABLET BY [facility] ge 50 MG 00:00: MOUTH of tablet 00 NIGHTLY Medicin e XIFAXAN 550 Yes TAKE 1 [facility] MG TABS 2-07 TABLET BY [facility] 00:00: MOUTH of 00 TWICE A Medicin DAY e Glucose Yes Check [facility] Blood 1-18 glucose [facility] Strips 00:00: four times of (ONETOUCH 00 daily. Dx Medic in VERIO) Code: E e 11.65 hydrOXYzine Yes TAKE 1-2 [facility] (ATARAX) 25 1-18 TABLET BY [facility] lege MG tablet 00:00: MOUTH 3 of 00 TIMES Medicin DAILY e NEEDED FOR ANXIETY FOR UP TO 30 DAYS. ONETOUCH Yes [id number] USE ONE [facility] VERIO 1-14 STRIP [facility] 00:00: DIRECTED of 00 Medicin e Blood Yes [id number] USE TO [facility] Glucose 1-14 CHECK [facility] Monitoring 00:00: BLOOD of Suppl 00 SUGAR Medicin (ONETOUCH e VERIO) w/Device KIT promethazin 0 2022- No [id number] TAKE 1 [facility] e 1-10 08-22 TABLET BY [facility] (PHENERGAN) 00:00: 00:00 MOUTH of 12.5 MG 00 :00 EVERY 8 Medicin tablet HOURS e NEEDED FOR NAUSEA benzonatate 2020-10 Yes [id number] 100mg Take 1 [facility] (TESSALON 2-30 capsule by Danny LANG) 100 00:00: mouth 3 of mg capsule 00 times Medicin daily as e needed for Cough. fluticasone 2020-10 Yes [id number] 1{spray 1 [place] by [facility] (FLONASE) 2-30 } Each [facility] 50 MCG/ACT 00:00: Nostril of nasal spray 00 route Medicin daily. e albuterol 2020-10 Yes [id number] 90ug Inhale 1-2 [facility] 108 (90 2-30 Puffs by [facility] base) 00:00: mouth of mcg/act 00 every 4 Medicin inhaler hours as e needed for Wheezing (shortness of breath). May substitute formulary preferred, generic, brand, or alternativ e. diphenhydrA 2020-10 No 25mg 25 mg, Uni vers MINE [...] mL at 1915, JEFERSON iopamidol 2020-10- No [id number] 100mL 100 mL, Univers (ISOVUE 10-21 Intravenou ity o f 370-500 mL) 00:45: 00:45 s, ONCE, 1 [place] injection 00 :00 dose, On Medica l 100 mL Wed Branch 08/20/21 at 1845, Routine proMETHazin 2020-10 No 12.5mg 12.5 mg, Univers e 10-21 [...]
Duration of therapy: 7 days NaCl 0.9% 2020-10- No 1000mL at 1,000 U nivers (NS) IV 10-21 11-11 mL/hr, ity of infusion 00:00: 01:27 [place] 1,000 mL 00 :00 s, ONCE, 1 Medic al dose, On Branch 08/20/21 at 1800, JEFERSON morpHINE 2020-10- No 4mg 4 mg, Slow Un armando injection 4 10-2110 IV Push, ity of mg 00:00: 23:29 ONCE, 1 [place] 00 :00 dose, On Medical Wed Branch 08/20/21 at 1800, STAT clindamycin 2020-10 Yes [id number] 300mg Take 1 Univers 300 mg -10 capsule by ity of capsule 00:00: mouth 4 [place] 00 (four) Medical times Branch daily. clindamycin 2020-10 Yes [id number] Apply to [facility] (CLEOCIN T) 10-18 affected [facility] 1 % lotion 00:00: area twice o f 00 a day as Medicin needed for e 10 days clindamycin 2020-10 Yes [id number] Apply to [facility] (CLEOCIN T) 08 affected [facility] 1 % lotion 00:00: area twice o f 00 a day as Medicin needed for e 10 days clindamycin 2020-10 Yes [id number] Apply to [facility] (CLEOCIN T) 08 affected [facility] 1 % lotion 00:00: area twice o f 00 a day as Medicin needed for e 10 days nystatin 2020-10 Yes Apply [facility] (MYCOSTATIN 0-20 topically Col [facility]ge ) ointment 10:53: two times of 01 daily. Medicin e nystatin 2020-10 Yes Apply [facility] (MYCOSTATIN 0-20 topically Col lege ) ointment 10:53: two times of 01 daily. Medicin e nystatin 2020-10 Yes Apply [facility] (MYCOSTATIN 0-20 topically Col lege ) ointment 10:53: two times of 01 daily. Medicin e nystatin 2020-10 Yes Apply [facility] (MYCOSTATIN 0-11 topically Col [facility]ge ) ointment [...] month refill tramadol 2020-10 Yes Take 1 [facility] (ULTRAM) 50 0-11 pill two [facility] MG tablet 00:00: times a of 00 day as Medicin needed for e severe joint pain/ dispense 3 month refill tramadol 2020-10 Yes Take 1 [facility] (ULTRAM) 50 0-11 pill two [facility] MG tablet 00:00: times a of 00 day as Medicin needed for e severe joint pain/ dispense 3 month refill tramadol 2020-10 Yes Take 1 [facility] (ULTRAM) 50 0-11 pill two [facility] MG tablet 00:00: times a of 00 day as Medicin needed for e severe joint pain/ dispense 3 month refill carvedilol 2020-10 Yes [id number] 6.25mg Take 1 [facility] (COREG) 0-04 9105 Tablet by [facility] 6.25 MG 00:00: mouth 2 of tablet 00 times Medicin daily e (with meals). carvedilol 2020-10 Yes [id number] 6.25mg Take 1 [facility] (COREG) 0-04 9105 Tablet by [facility] 6.25 MG 00:00: mouth 2 of tablet 00 times Medicin daily e (with meals). carvedilol 2020-10 Yes [id number] 6.25mg Take 1 [facility] (COREG) 0-04 9105 Tablet by [facility] 6.25 MG 00:00: mouth 2 of tablet 00 times Medicin daily e (with meals). carvedilol 2020-10 Yes [id number] 6.25mg Take 1 [facility] (COREG) 0-04 9105 Tablet by [facility] 6.25 MG 00:00: mouth 2 of tablet 00 times Medicin daily e (with meals). XIFAXAN 550 Yes [facility] MG TABS 9-22 College 00:00: of 00 Medicin e XIFAXAN 550 2020-0 Yes [facility] MG TABS 9-22 College 00:00: of Medicin e XIFAXAN 550 2020-0 Yes [facility] MG TABS 9-22 College 00:00: of Medicin e XIFAXAN 550 2020-0 Yes Yon MG TABS 9-22 [facility] 00:00: of Medicin e nystatin Yes Apply [facility] (MYCOSTATIN 8-30 topically Col lege ) ointment 11:26: two times of 05 daily. Medicin e tramadol Yes Take 1 [facility] (ULTRAM) 50 8-23 pill two [facility] MG tablet 00:00: times a of 00 day as Medicin needed for e severe joint pain tramadol 2020-0 2020- No Take 1 [facility] (ULTRAM) 50 8-23 10-11 pill two Col lege MG tablet 00:00: 00:00 times a of 00 :00 day as Medicin needed for e severe joint pain trazodone Yes 75mg Take 1.5 [facility] (DESYREL) 8-17 Tablets by [facility] 50 MG 00:00: mouth of tablet 00 nightly. Medicin e escitalopra Yes [id number] 20mg Take 1 [facility] m (LEXAPRO) 8-17 Tablet by Col lege [...] tablet 00 nightly. Medicin e escitalopra Yes [id number] 20mg Take 1 [facility] m (LEXAPRO) 8-17 [...] of tablet 00 nightly. Medicin e escitalopra 0 Yes [id number] 20mg Take 1 [facility] m (LEXAPRO) 8-17 Tablet by Col lege [...] tablet 00 nightly. Medicin e escitalopra Yes [id number] 20mg Take 1 [facility] m (LEXAPRO) 8-17 [...] tablet 00 nightly. Medicin e escitalopra Yes [id number] 20mg Take 1 [facility] m (LEXAPRO) 8-17 [...] Medic al 59 pump . Center oxycodone Yes 1{tbl} Take 1 [facility] (ROXICODONE 7-28 Tablet by Col lege ) 5 MG 00:00: mouth of immediate 00 every 4 Medicin release hours as e tablet needed for Pain. ketorolac Yes 10mg Take 1 [facility] (TORADOL) 7-28 Tablet by Colle ge 10 MG 00:00: mouth of tablet 00 every 8 Medicin hours. e oxycodone Yes 1{tbl} Take 1 [facility] (ROXICODONE 7-28 Tablet by Col lege ) 5 MG 00:00: mouth of immediate 00 every 4 Medicin release hours as e tablet needed for Pain. ketorolac Yes 10mg Take 1 [facility] (TORADOL) 7-28 Tablet by Colle ge 10 MG 00:00: mouth of tablet 00 every 8 Medicin hours. e oxycodone Yes 1{tbl} Take 1 [facility] (ROXICODONE 7-28 Tablet by Col lege ) 5 MG 00:00: mouth of immediate 00 every 4 Medicin release hours as e tablet needed for Pain. ketorolac Yes 10mg Take 1 [facility] (TORADOL) 7-28 Tablet by Colle ge 10 MG 00:00: mouth of tablet 00 every 8 Medicin hours. e oxycodone Yes 1{tbl} Take 1 [facility] (ROXICODONE 7-28 Tablet by Col lege ) 5 MG 00:00: mouth of immediate 00 every 4 Medicin release hours as e tablet needed for Pain. ketorolac 0 Yes 10mg Take 1 [facility] (TORADOL) 7-28 Tablet by Colle ge 10 MG 00:00: mouth of tablet 00 every 8 Medicin hours. e oxycodone 2020-0 Yes 1{tbl} Take 1 [facility] (ROXICODONE 7-28 Tablet by Col lege ) 5 MG 00:00: mouth of immediate 00 every 4 Medicin release hours as e tablet needed for Pain. ketorolac 0 Yes 10mg Take 1 [facility] (TORADOL) 7-28 Tablet by Colle ge 10 MG 00:00: mouth of tablet 00 every 8 Medicin hours. e oxycodone 2020-0 Yes 1{tbl} Take 1 [facility] (ROXICODONE 7-28 Tablet by Col lege ) 5 MG 00:00: mouth of immediate 00 every 4 Medicin release hours as e tablet needed for Pain. ketorolac 0 Yes 10mg Take 1 [facility] (TORADOL) 7-28 Tablet by Colle ge 10 MG 00:00: mouth of tablet 00 every 8 Medicin hours. e nystatin Yes Apply [facility] (MYCOSTATIN 7-22 topically Col lege ) ointment 16:11: two times of 12 daily. Medicin e nystatin 0 Yes Apply [facility] (MYCOSTATIN 7-21 topically Col lege ) ointment 09:10: two times of 27 daily. Medicin e traZODone Yes 50mg QD Take [address] (DESYREL) 7-21 by mouth [facility] 50 MG 00:00: nightly . Medical tablet 00 [place] traZODone Yes 50mg QD Take [address] (DESYREL) 7-21 by mouth [facility] 50 MG 00:00: nightly . Medical tablet 00 [place] traZODone 0 Yes 50mg QD Take [address] (DESYREL) 7-21 by mouth [facility] 50 MG 00:00: nightly . Medical tablet 00 [place] traZODone 0 Yes 50mg QD Take [address] (DESYREL) 7-21 by mouth [facility] 50 MG 00:00: nightly . Medical tablet 00 [place] escitalopra 0 Yes [id number] 20mg Take 1 [facility] m (LEXAPRO) 7-21 Tablet by Col lege 20 MG 00:00: mouth of tablet 00 daily. Medicin e hydrOXYzine Yes TAKE 1 [facility] (ATARAX) 25 7-21 TABLET BY Col lege MG tablet 00:00: MOUTH 3 of 00 TIMES Medicin DAILY e NEEDED FOR ANXIETY FOR UP TO 30 DAYS. trazodone Yes 50mg Take 1 [facility] (DESYREL) 7-21 Tablet by Colle ge 50 MG 00:00: mouth of tablet 00 nightly. Medicin e traZODone Yes 50mg QD Take [address] (DESYREL) 7-21 by mouth [facility] 50 MG 00:00: nightly . Medical tablet 00 [place] nystatin Yes Apply [facility] (MYCOSTATIN 7-20 topically Col lege ) ointment 07:45: two times of 50 daily. Medicin e furosemide 2020- No 20mg QD Take [address] [facility] (LASIX) 20 7-13 07-13 by mouth Luke s MG tablet 16:30: 00:00 daily. Medic al 33 :00 [place] furosemide 2020- No 20mg QD Take [address] (LASIX) 20 7-13 07-13 by mouth Luke s MG tablet 16:30: 00:00 daily. Medic al 33 :00 [place] furosemide 2020- No 20mg QD Take [address] (LASIX) 20 7-13 07-13 by mouth Luke s MG tablet 16:30: 00:00 daily. Medic al 33 :00 [place] furosemide 2020- No 20mg QD Take [address] (LASIX) 20 7-13 07-13 by mouth Luke s MG tablet 16:30: 00:00 daily. Medic al 33 :00 [place] furosemide Yes Unspecified TAKE [address] [facility] [facility] [...] 00 TWICE A Medicin DAY e furosemide 0 2- No Unspecified TAKE [address] [facility] (LASIX) 20 7-13 05-05 cirrhosis TABLET BY [facility] MG tablet 00:00: 00:00 of liver MOUTH Me dical 00 :00 (HCC) TWICE A Center DAY atorvastati Yes 40mg Take 1 [facility] (LIPITOR) 7-08 Tablet by Col lege 40 MG 00:00: mouth of tablet 00 daily. Medicin e carvedilol 2021-0 Yes [id number] 6.25mg Take 1 [facility] (COREG) 7- 9105 Tablet by [facility] 6.25 MG 00:00: mouth 2 of tablet 00 times Medicin daily e (with meals). levothyroxi 2020-0 Yes [id number] 125ug Take 1 [facility] ne - 9105 Tablet by [facility] (SYNTHROID) 00:00: mouth of 125 MCG 00 daily. Medicin tablet e Insulin 2020-0 Yes [id number] 70U Inject 70 [facility] Detemir 7-08 Units as College (LEVEMIR 00:00: directed of FLEXTOUCH) 00 every Medicin 100 UNIT/ML morning. e SOPN atorvastati 0 Yes 40mg Take 1 [facility] (LIPITOR) 7-08 Tablet by Col lege 40 MG 00:00: mouth of tablet 00 daily. Medicin e carvedilol 2020-0 Yes [id number] 6.25mg Take 1 [facility] (COREG) 7- 9105 Tablet by [facility] 6.25 MG 00:00: mouth 2 of tablet 00 times Medicin daily e (with meals). levothyroxi 2020-0 Yes [id number] 125ug Take 1 [facility] ne 04-17 9105 Tablet by [facility] (SYNTHROID) 00:00: mouth of 125 MCG 00 daily. Medicin tablet e Insulin 2020-0 Yes [id number] 70U Inject 70 [facility] Detemir 7-08 Units as [facility] (LEVEMIR 00:00: directed of FLEXTOUCH) 00 every Medicin 100 UNIT/ML morning. e SOPN atorvastati 2020-0 Yes 40mg Take 1 [facility] (LIPITOR) 7-08 Tablet by Col lege 40 MG 00:00: mouth of tablet 00 daily. Medicin e carvedilol 2020-0 Yes [id number] 6.25mg Take 1 [facility] (COREG) 7- 9105 Tablet by [facility] 6.25 MG 00:00: mouth 2 of tablet 00 times Medicin daily e (with meals). levothyroxi 2020-0 Yes [id number] 125ug Take 1 [facility] ne 7- 9105 Tablet by [facility] (SYNTHROID) 00:00: mouth of 125 MCG 00 daily. Medicin tablet e Insulin 2020-0 Yes [id number] 70U Inject 70 [facility] Detemir 7-08 Units as College (LEVEMIR 00:00: directed of FLEXTOUCH) 00 every Medicin 100 UNIT/ML morning. e SOPN atorvastati 2020-0 Yes 40mg Take 1 [facility] (LIPITOR) 7-08 Tablet by Col lege 40 MG 00:00: mouth of tablet 00 daily. Medicin e carvedilol 2020-0 Yes [id number] 6.25mg Take 1 [facility] (COREG) 04-17 9105 Tablet by [facility] 6.25 MG 00:00: mouth 2 of tablet 00 times Medicin daily e (with meals). levothyroxi 2020-0 Yes [id number] 125ug Take 1 [facility] ne 04-1705 Tablet by [facility] (SYNTHROID) 00:00: mouth of 125 MCG 00 daily. Medicin tablet e Insulin 2020-0 Yes [id number] 70U Inject 70 [facility] Detemir 7-08 Units as [facility] (LEVEMIR 00:00: directed of FLEXTOUCH) 00 every Medicin 100 UNIT/ML morning. e SOPN atorvastati 2020-0 Yes 40mg Take 1 [facility] (LIPITOR) 7-08 Tablet by Col lege 40 MG 00:00: mouth of tablet 00 daily. Medicin e levothyroxi 2020-0 Yes [id number] 125ug Take 1 [facility] ne 04-17 9105 Tablet by [facility] (SYNTHROID) 00:00: mouth of 125 MCG 00 daily. Medicin tablet e Insulin 2020-0 Yes [id number] 70U Inject 70 [facility] Detemir 7-08 Units as [facility] (LEVEMIR 00:00: directed of FLEXTOUCH) 00 every Medicin 100 UNIT/ML morning. e SOPN atorvastati 2020-0 Yes 40mg Take 1 [facility] (LIPITOR) 7-08 Tablet by Col lege 40 MG 00:00: mouth of tablet 00 daily. Medicin e levothyroxi 2020-0 Yes [id number] 125ug Take 1 [facility] ne 04-17 9105 Tablet by [facility] (SYNTHROID) 00:00: mouth of 125 MCG 00 daily. Medicin tablet e Insulin 2020-0 Yes [id number] 70U Inject 70 [facility] Detemir 7-08 Units as [facility] (LEVEMIR 00:00: directed of FLEXTOUCH) 00 every Medicin 100 UNIT/ML morning. e SOPN atorvastati 0 Yes 40mg Take 1 [facility] (LIPITOR) 7-08 Tablet by Col lege 40 MG 00:00: mouth of tablet 00 daily. Medicin e levothyroxi 2020-0 Yes [id number] 125ug Take 1 [facility] ne 7- 9105 Tablet by [facility] (SYNTHROID) 00:00: mouth of 125 MCG 00 daily. Medicin tablet e Insulin 2020-0 Yes [id number] 70U Inject 70 [facility] Detemir 7-08 Units as [facility] (LEVEMIR 00:00: directed of FLEXTOUCH) 00 every Medicin 100 UNIT/ML morning. e SOPN atorvastati 0 Yes 40mg Take 1 [facility] (LIPITOR) 7-08 Tablet by Col lege 40 MG 00:00: mouth of tablet 00 daily. Medicin e levothyroxi 2020-0 Yes [id number] 125ug Take 1 [facility] ne 7- 9105 Tablet by [facility] (SYNTHROID) 00:00: mouth of 125 MCG 00 daily. Medicin tablet e Insulin 0 Yes [id number] 70U Inject 70 [facility] Detemir 7-08 Units as [facility] (LEVEMIR 00:00: directed of FLEXTOUCH) 00 every Medicin 100 UNIT/ML morning. e SOPN carvediloL 0 Yes Q.5D Take by [facility] (COREG) 7-08 mouth 2 [facility] 6.25 MG 00:00: (two) Medical tablet 00 times Center daily . spironolact 2020-0 Yes 50mg Take 1 [facility] one 7-06 Tablet by [facility] (ALDACTONE) 00:00: mouth of 50 MG 00 daily. Medicin tablet e omeprazole 2020-0 Yes [id number] TAKE 1 [facility] (PRILOSEC) 7-06 CAPSULE BY Col lege 40 MG 00:00: MOUTH of capsule 00 EVERY DAY Medicin e promethazin 2020-0 Yes [id number] TAKE 1 [facility] e 7-06 TABLET BY [facility] (PHENERGAN) 00:00: MOUTH of 12.5 MG 00 EVERY 8 Medicin tablet HOURS e NEEDED FOR NAUSEA spironolact 2020-0 Yes 50mg Take 1 [facility] one 7-06 Tablet by [facility] (ALDACTONE) 00:00: mouth of 50 MG 00 daily. Medicin tablet e omeprazole 2021-0 Yes [id number] TAKE 1 [facility] (PRILOSEC) 7-06 CAPSULE BY Col lege 40 MG 00:00: MOUTH of capsule 00 EVERY DAY Medicin e promethazin 2021-0 Yes [id number] TAKE 1 [facility] e 7-06 TABLET BY [facility] (PHENERGAN) 00:00: MOUTH of 12.5 MG 00 EVERY 8 Medicin tablet HOURS e NEEDED FOR NAUSEA spironolact 2021-0 Yes 50mg Take 1 [facility] one 7-06 Tablet by [facility] (ALDACTONE) 00:00: mouth of 50 MG 00 daily. Medicin tablet e omeprazole 2021-0 Yes [id number] TAKE 1 [facility] (PRILOSEC) 7-06 CAPSULE BY [facility] 40 MG 00:00: MOUTH of capsule 00 EVERY DAY Medicin e promethazin 2021-0 Yes [id number] TAKE 1 [facility] e 7-06 TABLET BY [facility] (PHENERGAN) 00:00: MOUTH of 12.5 MG 00 EVERY 8 Medicin tablet HOURS e NEEDED FOR NAUSEA spironolact 2021-0 Yes 50mg Take 1 [facility] one 7-06 Tablet by [facility] (ALDACTONE) 00:00: mouth of 50 MG 00 daily. Medicin tablet e omeprazole 2021-0 Yes [id number] TAKE 1 [facility] (PRILOSEC) 7-06 CAPSULE BY [facility] 40 MG 00:00: MOUTH of capsule 00 EVERY DAY Medicin e promethazin 2021-0 Yes [id number] TAKE 1 Yon e 7-06 TABLET BY [facility] (PHENERGAN) 00:00: MOUTH of 12.5 MG 00 EVERY 8 Medicin tablet HOURS e NEEDED FOR NAUSEA spironolact 2021-0 Yes 50mg Take 1 [facility] one 7-06 Tablet by [facility] (ALDACTONE) 00:00: mouth of 50 MG 00 daily. Medicin tablet e omeprazole 2021-0 Yes [id number] TAKE 1 [facility] (PRILOSEC) 7-06 CAPSULE BY [facility] 40 MG 00:00: MOUTH of capsule 00 EVERY DAY Medicin e promethazin 2021-0 Yes [id number] TAKE 1 [facility] e 7-06 TABLET BY [facility] (PHENERGAN) 00:00: MOUTH of 12.5 MG 00 EVERY 8 Medicin tablet HOURS e NEEDED FOR NAUSEA spironolact 2020-0 Yes 50mg Take 1 [facility] one 7-06 Tablet by [facility] (ALDACTONE) 00:00: mouth of 50 MG 00 daily. Medicin tablet e omeprazole 2020-0 Yes [id number] TAKE 1 [facility] (PRILOSEC) 7-06 CAPSULE BY [facility] 40 MG 00:00: MOUTH of capsule 00 EVERY DAY Medicin e promethazin 2020-0 Yes [id number] TAKE 1 Yon e 7-06 TABLET BY [facility] (PHENERGAN) 00:00: MOUTH of 12.5 MG 00 EVERY 8 Medicin tablet HOURS e NEEDED FOR NAUSEA spironolact 2020-0 Yes 50mg Take 1 [facility] one 7-06 Tablet by [facility] (ALDACTONE) 00:00: mouth of 50 MG 00 daily. Medicin tablet e omeprazole 2020-0 Yes [id number] TAKE 1 [facility] (PRILOSEC) 7-06 CAPSULE BY [facility] 40 MG 00:00: MOUTH of capsule 00 EVERY DAY Medicin e promethazin 2020-0 Yes [id number] TAKE 1 Yon e 7-06 TABLET BY [facility] (PHENERGAN) 00:00: MOUTH of 12.5 MG 00 EVERY 8 Medicin tablet HOURS e NEEDED FOR NAUSEA spironolact 2020-0 Yes 50mg Take 1 [facility] one 7-06 Tablet by [facility] (ALDACTONE) 00:00: mouth of 50 MG 00 daily. Medicin tablet e omeprazole 2020-0 Yes [id number] TAKE 1 [facility] (PRILOSEC) 7-06 CAPSULE BY [facility] 40 MG 00:00: MOUTH of capsule 00 EVERY DAY Medicin e promethazin 2020-0 Yes [id number] TAKE 1 Yon e 7-06 TABLET BY [facility] (PHENERGAN) 00:00: MOUTH of 12.5 MG 00 EVERY 8 Medicin tablet HOURS e NEEDED FOR NAUSEA Insulin 2020-0 Yes APPLY POD [facility] Disposable 6-21 TOPICALLY [facility] Pump 00:00: AND CHANGE of (OMNIPOD 00 EVERY 72 Medicin DASH 5 PACK HOURS e PODS) MISC Insulin 2020-0 Yes APPLY POD [facility] Disposable 6-21 TOPICALLY [facility] Pump 00:00: AND CHANGE of (OMNIPOD 00 EVERY 72 Medicin DASH 5 PACK HOURS e PODS) [facility] [place] 0 Yes APPLY POD [facility] Disposable 6-21 TOPICALLY [facility] Pump 00:00: AND CHANGE of (OMNIPOD 00 EVERY 72 Medicin DASH 5 PACK HOURS e PODS) [facility] Insulin 0 Yes APPLY POD [facility] Disposable 6-21 TOPICALLY [facility] Pump 00:00: AND CHANGE of (OMNIPOD 00 EVERY 72 Medicin DASH 5 PACK HOURS e PODS) [facility] Insulin 0 Yes APPLY POD [facility] Disposable 6-21 TOPICALLY [facility] Pump 00:00: AND CHANGE of (OMNIPOD 00 EVERY 72 Medicin DASH 5 PACK HOURS e PODS) [facility] Insulin 0 Yes APPLY POD [facility] Disposable 6-21 TOPICALLY [facility] Pump 00:00: AND CHANGE of (OMNIPOD 00 EVERY 72 Medicin DASH 5 PACK HOURS e PODS) [facility] Insulin 0 Yes APPLY POD [facility] Disposable 6-21 TOPICALLY [facility] Pump 00:00: AND CHANGE of (OMNIPOD 00 EVERY 72 Medicin DASH 5 PACK HOURS e PODS) [facility] Insulin 0 Yes APPLY POD [facility] Disposable 6-21 TOPICALLY [facility] Pump 00:00: AND CHANGE of (OMNIPOD 00 EVERY 72 Medicin DASH 5 PACK HOURS e PODS) [facility] Insulin 0 Yes APPLY POD [facility] Disposable 6-21 TOPICALLY [facility] Pump 00:00: AND CHANGE of (OMNIPOD 00 EVERY 72 Medicin DASH 5 PACK HOURS e PODS) [facility] nystatin Yes Apply [facility] (MYCOSTATIN 6-16 topically [facility] ) ointment 14:19: two times of 14 daily. Medicin e nystatin 0 Yes Apply [facility] (MYCOSTATIN 6-16 topically [facility] ) ointment 14:19: two times of 14 daily. Medicin e iopamidol 1- No [id number] 65mL 65 mL, [facility] (ISOVUE 03-24 [id number] Intravenou ity of 370-500 mL) 02:17: 02:17 s, ONCE, 1 [place] injection 00 :00 dose, Sun Medic al 65 mL 03/23/21 at [facility] 2130, Routine ondansetron 0 2020- No 4mg 4 mg, Slow [facility] (ZOFRAN 03-24 IV Push, ity of (PF)) 01:30: 01:45 ONCE, 1 [place] injection 4 00 :00 dose, Sun Med ical mg 03/23/21 at [facility] 2030, JEFERSON morpHINE 2020-0 2020- No 4mg 4 mg, Slow [facility] arm[facility] injection 4 03-24 IV Push, ity of mg 01:30: 01:45 ONCE, 1 [place] 00 :00 dose, Sun Medical 03/23/21 at [facility] 2030, STAT polyethylen 0 Yes Colon Day before [facility] [...] 2L over 1.5 hrs.. GAVILYTE-G 2021-0 Yes [facility] 236 g 6-10 College suspension 00:00: of 00 Medicin e GAVILYTE-G 2021-0 Yes [facility] 236 g 6-10 College suspension 00:00: of 00 Medicin e GAVILYTE-G 2021-0 Yes [facility] 236 g 6-10 College suspension 00:00: of 00 Medicin e GAVILYTE-G 2021-0 Yes [facility] 236 g 6-10 College suspension 00:00: of 00 Medicin e GAVILYTE-G 2021-0 Yes [facility] 236 g 6-10 College suspension 00:00: of 00 Medicin e GAVILYTE-G 2021-0 Yes [facility] 236 g 6-10 College suspension 00:00: of 00 Medicin e GAVILYTE-G 2021-0 Yes [facility] 236 g 6-10 College suspension 00:00: of 00 Medicin e GAVILYTE-G 2021-0 Yes [facility] 236 g 6-10 College suspension 00:00: of 00 Medicin e GAVILYTE-G 2021-0 Yes [facility] 236 g 6-10 College suspension 00:00: of 00 Medicin e GAVILYTE-G 2021-0 Yes [facility] 236 g 6-10 College suspension 00:00: of 00 Medicin e polyethylen 1-0 2- No Colon Day before [facility] e glycol 6 05-05 cancer colonoscop Elena cruz (GoLYTELY,N 00:00: 00:00 screening y at 6PM: Medical uLYTELY) 00 :00 Drink 2 L Center [id number] of .74 -5.86 Golytely gram over 2 solution hrs. 4 hrs before you leave for colonoscop y: Drink remaining 2L over 1.5 hrs.. Cholestyram 2020-0 Yes 4g Take 4 g [...] daily Medicin (before e meals). Cholestyram 2020-0 2022- No 4g Take 4 g [facility] ine 4 6-09 08-22 by mouth 2 College GM/DOSE 00:00: 00:00 times of POWD 00 :00 daily Medicin (before e meals). rifAXIMin 2020-2020- No [id number] 550mg Take 550 [facility] 550 MG TABS 03-19 09-08 mg by Colleg e 00:00: 04:59 mouth two of 00 :00 times Medicin daily for e 90 days. rifAXIMin 2020-0 1- No [id number] 550mg Take 550 [facility] 550 MG TABS 03-19-08 mg by Colleg e 00:00: 04:59 mouth two of 00 :00 times Medicin daily for e 90 days. rifAXIMin 2020-0 2020- No [id number] 550mg Take 550 [facility] 550 MG TABS 03-19-08 mg by Colleg e 00:00: 04:59 mouth two of 00 :00 times Medicin daily for e 90 days. rifAXIMin 2020-0 2020- No [id number] 550mg Take 550 [facility] 550 MG TABS 03-19-08 mg by Colleg e 00:00: 04:59 mouth two of 00 :00 times Medicin daily for e 90 days. rifAXIMin 2020-0 2020- No [id number] 550mg Take 550 [facility] 550 MG TABS 03-19-08 mg by Colleg e 00:00: 04:59 mouth two of 00 :00 times Medicin daily for e 90 days. rifAXIMin 2020-0 2020- No [id number] 550mg Take 550 [facility] 550 MG TABS 03-19-08 mg by Colleg e 00:00: 04:59 mouth two of 00 :00 times Medicin daily for e 90 days. promethazin 2020-0 Yes [id number] TAKE 1 [facility] e 6-07 TABLET BY [facility] (PHENERGAN) 00:00: MOUTH of 12.5 MG 00 EVERY 8 Medicin tablet HOURS e NEEDED FOR NAUSEA promethazin 2020-0 Yes [id number] TAKE 1 [facility] e 6-07 TABLET BY [facility] (PHENERGAN) 00:00: MOUTH of 12.5 MG 00 EVERY 8 Medicin tablet HOURS e NEEDED FOR NAUSEA Apixaban 2020-0 Yes 2.5mg Take 2.5 [facility] (ELIQUIS) 5-07 mg by [facility] 2.5 MG TABS 00:00: mouth two o f 00 times Medicin daily. e Apixaban 2020-0 Yes 2.5mg Take 2.5 [facility] (ELIQUIS) 5-07 mg by [facility] 2.5 MG TABS 00:00: mouth two o f 00 times Medicin daily. e Apixaban 2020-0 Yes 2.5mg Take 2.5 [facility] (ELIQUIS) 5-07 mg by [facility] 2.5 MG TABS 00:00: mouth two o f 00 times Medicin daily. e Apixaban 2020-0 Yes 2.5mg Take 2.5 [facility] (ELIQUIS) 5-07 mg by [facility] 2.5 MG TABS 00:00: mouth two o f 00 times Medicin daily. e Apixaban 2020-0 Yes 2.5mg Take 2.5 [facility] (ELIQUIS) 5-07 mg by [facility] 2.5 MG TABS 00:00: mouth two o f 00 times Medicin daily. e Apixaban 2020-0 Yes 2.5mg Take 2.5 [facility] (ELIQUIS) 5-07 mg by [facility] 2.5 MG TABS 00:00: mouth two o f 00 times Medicin daily. e Apixaban 2020-0 Yes 2.5mg Take 2.5 [facility] (ELIQUIS) 5-07 mg by [facility] 2.5 MG TABS 00:00: mouth two o f 00 times Medicin daily. e Apixaban 2020-0 Yes 2.5mg Take 2.5 [facility] (ELIQUIS) 5-07 mg by [facility] 2.5 MG TABS 00:00: mouth two o f 00 times Medicin daily. e Apixaban 2020-0 Yes 2.5mg Take 2.5 [facility] (ELIQUIS) 5-07 mg by [facility] 2.5 MG TABS 00:00: mouth two o f 00 times Medicin daily. e Apixaban 2020-0 Yes 2.5mg Take 2.5 [facility] (ELIQUIS) 5-07 mg by [facility] 2.5 MG TABS 00:00: mouth two o f 00 times Medicin daily. e Apixaban 2020-0 Yes 2.5mg Take 2.5 [facility] (ELIQUIS) 5-07 mg by [facility] 2.5 MG TABS 00:00: mouth two o f 00 times Medicin daily. e spironolact 2020-0 2020- No TAKE [address] [facility] one 5-07 06-17 TABLET BY [facility] (ALDACTONE) 00:00: 00:00 MOUTH Medi stephani 50 MG 00 :00 EVERY DAY Center tablet spironolact 2020-2020- No TAKE [address] [facility] one 5-07 [...] EVERY DAY Center tablet nystatin Yes Apply [facility] (MYCOSTATIN 4-27 topically [facility] ) ointment 16:02: two times of 14 daily. Medicin e Insulin Pen Yes [id number] Use on [facility] Needle (PEN 4-22 needle 5 [facility] NEEDLES) 00:00: times a of 31G X 5 MM 00 day Dx Medicin MISC Code: E e 11.9 Insulin Pen 0 Yes [id number] Use on [facility] Needle (PEN 4-22 needle 5 [facility] NEEDLES) 00:00: times a of 31G X 5 MM day Dx Medicin MISC Code: E e 11.9 Insulin Pen Yes [id number] Use on [facility] Needle (PEN 4-22 needle 5 [facility] NEEDLES) 00:00: times a of 31G X 5 MM day Dx Medicin MISC Code: E e 11.9 Insulin Pen 0 Yes [id number] Use on [facility] Needle (PEN 4-22 needle 5 [facility] NEEDLES) 00:00: times a of 31G X 5 MM day Dx Medicin MISC Code: E e 11.9 Insulin Pen 0 Yes [id number] Use on [facility] Needle (PEN 4-22 needle 5 [facility] NEEDLES) 00:00: times a of 31G X 5 MM 00 day Dx Medicin MISC Code: E e 11.9 Insulin Pen 0 Yes [id number] Use on [facility] Needle (PEN 4-22 needle 5 [facility] NEEDLES) 00:00: times a of 31G X 5 MM day Dx Medicin MISC Code: E e 11.9 Insulin Pen Yes [id number] Use on [facility] Needle (PEN 4-22 needle 5 [facility] NEEDLES) 00:00: times a of 31G X 5 MM 00 day Dx Medicin MISC Code: E e 11.9 Insulin Pen 2020-0 Yes [id number] Use on [facility] Needle (PEN 4-22 needle 5 [facility] NEEDLES) 00:00: times a of 31G X 5 MM 00 day Dx Medicin MISC Code: E e 11.9 Insulin Pen 2020-0 Yes [id number] Use on [facility] Needle (PEN 4-22 needle 5 [facility] NEEDLES) 00:00: times a of 31G X 5 MM 00 day Dx Medicin MISC Code: E e 11.9 Insulin Pen 2020-0 Yes [id number] Use on [facility] Needle (PEN 4-22 needle 5 [facility] NEEDLES) 00:00: times a of 31G X 5 MM day Dx Medicin MISC Code: E e 11.9 Insulin Pen 2020-0 Yes [id number] Use on [facility] Needle (PEN 4-22 needle 5 [facility] NEEDLES) 00:00: times a of 31G X 5 MM day Dx Medicin MISC Code: E e 11.9 Insulin Pen 2020-0 Yes [id number] Use on [facility] Needle (PEN 4-22 needle 5 [facility] NEEDLES) 00:00: times a of 31G X 5 MM day Dx Medicin MISC Code: E e 11.9 HumaLOG 0 Yes USE WITH [facility] [...] 165 UNITS Center injection PER DAY. insulin 2020-0 Yes [id number] Patient [facility] lispro 4-21 using up [facility] (HUMALOG) 00:00: to 165 of 100 UNIT/ML 00 units per Med icin injection day with e insulin pump insulin 2020-0 Yes [id number] Patient [facility] lispro 4-21 using up [facility] (HUMALOG) 00:00: to 165 of 100 UNIT/ML 00 units per Med icin injection day with e insulin pump insulin 2020-0 Yes [id number] Patient [facility] lispro 4-21 using up [facility] (HUMALOG) 00:00: to 165 of 100 UNIT/ML 00 units per Med icin injection day with e insulin pump insulin 2020-0 Yes [id number] Patient [facility] lispro 4-21 using up [facility] (HUMALOG) 00:00: to 165 of 100 UNIT/ML 00 units per Med icin injection day with e insulin pump insulin 2020-0 Yes [id number] Patient [facility] lispro 4-21 using up [facility] (HUMALOG) 00:00: to 165 of 100 UNIT/ML 00 units per Med icin injection day with e insulin pump insulin 2020-0 Yes [id number] Patient [facility] lispro 4-21 using up [facility] (HUMALOG) 00:00: to 165 of 100 UNIT/ML 00 units per Med icin injection day with e insulin pump insulin 2020-0 Yes [id number] Patient [facility] lispro 4-21 using up [facility] (HUMALOG) 00:00: to 165 of 100 UNIT/ML 00 units per Med icin injection day with e insulin pump insulin 2020-0 Yes [id number] Patient [facility] lispro 4-21 using up [facility] (HUMALOG) 00:00: to 165 of 100 UNIT/ML 00 units per Med icin injection day with e insulin pump insulin 2020-0 Yes [id number] Patient [facility] lispro 4-21 using up [facility] (HUMALOG) 00:00: to 165 of 100 UNIT/ML 00 units per Med icin injection day with e insulin pump insulin 2020-0 Yes [id number] Patient [facility] lispro 4-21 using up [facility] (HUMALOG) 00:00: to 165 of 100 UNIT/ML 00 units per Med icin injection day with e insulin pump insulin 2020-0 Yes [id number] Patient [facility] lispro 4-21 using up [facility] (HUMALOG) 00:00: to 165 of 100 UNIT/ML 00 units per Med icin injection day with e insulin pump insulin Yes [id number] Patient [facility] lispro 4-21 using up [facility] (HUMALOG) 00:00: to 165 of 100 UNIT/ML 00 units per Med icin injection day with e insulin pump HumaLOG Yes USE WITH [facility]-100 4-21 [facility]IN [facility] Insulin 100 00:00: PUMP UP TO Medical unit/mL 00 165 UNITS Center injection PER DAY. insulin 2020- No 4U Inject [facility] aspart -21 01-13 4-22 Units [facility] U-100 14:46: 00:00 subcutaneo Medic al (NOVOLOG) 19 :00 usly 3 Center 100 unit/mL (three) (3 mL) InPn times daily before meals 12 units before meals with sliding scale. insulin 2020- No 4U Inject [facility] aspart -21 01- 4-22 Units [facility]-100 14:46: 00:00 subcutaneo Medic al (NOVOLOG) 19 :00 usly 3 Center 100 unit/mL (three) (3 mL) InPn times daily before meals 12 units before meals with sliding scale. insulin 2020- No 4U Inject [facility] aspart -21 01- 4-22 Units [facility] U-100 14:46: 00:00 subcutaneo Medic al (NOVOLOG) 19 :00 usly 3 Center 100 unit/mL (three) (3 mL) InPn times daily before meals 12 units before meals with sliding scale. insulin 2020- No 4U Inject [facility] aspart -21 01-13 4-22 Units [facility] U-100 14:46: 00:00 subcutaneo Medic al (NOVOLOG) 19 :00 usly 3 Center 100 unit/mL (three) (3 mL) InPn times daily before meals 12 units before meals with sliding scale. traZODone 2020- No 50mg QD Take [address] (DESYREL) 01-21 by mouth [facility] 50 MG 14:42: 00:00 nightly. Medical tablet 38 :00 Center traZODone 2020- No 50mg QD Take [address] (DESYREL) 4-13 04-13 by mouth [facility] 50 MG 14:42: 00:00 nightly. Medical tablet 38 :00 [place] traZODone 2020-2020- No 50mg QD Take [address] (DESYREL) 4-13 04-13 by mouth [facility] 50 MG 14:42: 00:00 nightly. Medical tablet 38 :00 [place] traZODone 2020-2020- No 50mg QD Take [address] (DESYREL) 4-13 04-13 by mouth [facility] 50 MG 14:42: 00:00 nightly. Medical tablet 38 :00 [place] ferrous 2020-2020- No 325mg Take [address] [facility] sulfate 325 4-13 04-13 mg by [facility] (65 FE) MG 14:29: 00:00 mouth Medic al tablet 24 :00 daily with Center breakfast. ferrous 2020-2020- No 325mg Take [address] [facility] sulfate 325 4-13 04-13 mg by [facility] (65 FE) MG 14:29: 00:00 mouth Medic al tablet 24 :00 daily with Center breakfast. ferrous 2020-2020- No 325mg Take [address] [facility] sulfate 325 4-13 04-13 mg by [facility] (65 FE) MG 14:29: 00:00 mouth Medic al tablet 24 :00 daily with Center breakfast. ferrous 2020-2020- No 325mg Take [address] [facility] sulfate 325 4-13 04-13 mg by [facility] (65 FE) MG 14:29: 00:00 mouth Medic al tablet 24 :00 daily with Center breakfast. HumaLOG 2020-2020- No 4U [id number] Inject [facility] KwikPen 01-19- [id number] 4-22 Units [facility] Insulin 100 00:00: 00:00 3D subcutaneo Medical unit/mL 00 :00 usly 3 [place] InPn (three) times daily. HumaLOG 2020-2020- No 4U [id number] Inject [facility] KwikPen 01-19-16 [id number] 4-22 Units [facility] Insulin 100 00:00: 00:00 3D subcutaneo Medical unit/mL 00 :00 usly 3 Center InPn (three) times daily. HumaLOG 2020-0 2021- No 4U [id number] Inject [facility] KwikPen 4-11 06-16 [id number] 4-22 Units [facility] Insulin 100 00:00: 00:00 3D subcutaneo Medical unit/mL 00 :00 usly 3 [place] In (three) times daily. HumaLOG 2021-0 2021- No 4U [id number] Inject [facility] KwikPen 4-11 06-16 [id number] 4-22 Units [facility] Insulin 100 00:00: 00:00 3D subcutaneo Medical unit/mL 00 :00 usly 3 [place] In (three) times daily. Cholecalcif 2021-0 Yes TAKE 1 [facility] 4-10 CAPSULE BY College (VITAMIN 00:00: MOUTH of D3) 50 MCG 00 EVERY DAY [facility] praneeth (1999) e CAPS Cholecalcif 2021-0 Yes TAKE 1 [facility] [place] 4-10 CAPSULE BY [facility] (VITAMIN 00:00: MOUTH of D3) 50 MCG 00 EVERY DAY [facility] praneeth (1999) e CAPS Cholecalcif 2021-0 Yes TAKE 1 [facility] [place] 4-10 CAPSULE BY [facility] (VITAMIN 00:00: MOUTH of D3) 50 MCG 00 EVERY DAY [facility] praneeth (1999) e CAPS Cholecalcif 2021-0 Yes TAKE 1 [facility] [place] 4-10 CAPSULE BY [facility] (VITAMIN 00:00: MOUTH of D3) 50 MCG 00 EVERY DAY [facility] praneeth (1999) e CAPS Cholecalcif 2021-0 Yes TAKE 1 [facility] [place] 4-10 CAPSULE BY [facility] (VITAMIN 00:00: MOUTH of D3) 50 MCG 00 EVERY DAY [facility] praneeth (1999) e CAPS Cholecalcif 2021-0 Yes TAKE 1 [facility] [place] 4-10 CAPSULE BY [facility] (VITAMIN 00:00: MOUTH of D3) 50 MCG 00 EVERY DAY [facility] praneeth (1999 [place]) e CAPS Cholecalcif 2021-0 Yes TAKE 1 [facility] [place] 4-10 CAPSULE BY [facility] (VITAMIN 00:00: MOUTH of D3) 50 MCG 00 EVERY DAY [facility] praneeth (1999 [place]) e CAPS Cholecalcif 2021-0 Yes TAKE 1 [facility] [place] 4-10 CAPSULE BY [facility] (VITAMIN 00:00: MOUTH of D3) 50 MCG 00 EVERY DAY [facility] praneeth (1999) e CAPS Cholecalcif 2021-0 Yes TAKE 1 [facility] [place] 4-10 CAPSULE BY [facility] (VITAMIN 00:00: MOUTH of D3) 50 MCG 00 EVERY DAY [facility] (1999) e CAPS Cholecalcif Yes TAKE 1 [facility] [place] 4-10 CAPSULE BY [facility] (VITAMIN 00:00: MOUTH of D3) 50 MCG 00 EVERY DAY [facility] (1999) e CAPS dexAMETHaso 2020- No 6mg QD Take 1 [...] times daily with breakfast and dinner. carvedilol 2020-2020- No 6.25mg Take 6.[address] [facility] (COREG) 01-17 04-09 mg by [facility] 6.25 MG 11:11: 00:00 mouth 2 Medica l tablet 51 :00 (two) Center times daily with breakfast and dinner. carvediloL 2020-2020- No 3.125mg Take [address] (COREG) 01-17-09 tablet [facility] 3.125 MG 00:00: 23:59 (3.125 mg Med ical tablet 00 :00 total) by Center mouth 2 (two) times daily with breakfast and dinner for 30 days. cholecalcif 2020- No 2000U QD Take [address] [facility] 2,000 01-17-09 tablet [facility] unit Tab 00:00: 23:59 (2,000 [...] Take [address] [facility] 2,000 01-17-09 tablet [facility] unit Tab 00:00: 23:59 (2,000 Medica l 00 :00 Units Center total) by mouth daily for 30 days. carvediloL 2020-2020- No 3.125mg Take [address] (COREG) 01-17 05-09 tablet [facility] 3.125 MG 00:00: 23:59 (3.125 mg Med ical tablet 00 :00 total) by Center mouth 2 (two) times daily with breakfast and dinner for 30 days. cholecalcif 2020-2020- No 2000U QD Take [address] [facility] 2,000 01-17-09 tablet [facility] unit Tab 00:00: 23:59 (2,000 [...] Center packet daily for 30 days. dextrometho 2020- No 5mL Take [address] [facility] rphan-guaif 01-17 by mouth Jason es enesin 00:00: 00:00 every 12 Medica l (ROBITUSSIN 00 :00 (twelve) Cent er -DM) 10-100 hours for mg/5 mL 10 days. liquid polyethylen 2020- No 17g Q.5D Take [address] e glycol 01-17-13 by mouth 2 [facility] (GLYCOLAX) 00:00: 00:00 (two) Medic al 17 gram 00 :00 times Center packet daily for 30 days. dextrometho 0 2020- No 5mL Take [address] rphan-guaif 01-1713 by mouth Jason es enesin 00:00: 00:00 every 12 Medica l (ROBITUSSIN 00 :00 (twelve) Cent er -DM) 10-100 hours for mg/5 mL 10 days. liquid polyethylen 2020- No 17g Q.5D Take [address] [facility] e glycol 01-17-13 by mouth 2 [facility] (GLYCOLAX) 00:00: 00:00 (two) Medic al 17 gram 00 :00 times Center packet daily for 30 days. dextrometho 2020- No 5mL Take [address] rphan-guaif 01-17 by mouth Jason es enesin 00:00: 00:00 every 12 Medica l (ROBITUSSIN 00 :00 (twelve) Cent er -DM) 10-100 hours for mg/5 mL 10 days. liquid polyethylen 2020- No 17g Q.5D Take [address] e glycol 01-17 by mouth 2 [facility] (GLYCOLAX) 00:00: 00:00 (two) Medic al 17 gram 00 :00 times Center packet daily for 30 days. dextrometho 2020- No 5mL Take [address] rphan-guaif 01-17 by mouth Jason es enesin 00:00: 00:00 [...] FOR UP TO 30 DAYS. hydrOXYzine Yes 1{tbl} Take [address] (ATARAX) 25 4-08 tablet by Jason es MG tablet 00:00: mouth as Medi stephani 00 needed. Center albuterol 2020- No 2{puff} [address] [facility] sulfate 4-10 14-13 Nasal [facility] (ProAir 00:00: 00:00 route. Medical RespiClick) 00 :00 [place] 90 mcg/actuati on AePB albuterol 2020- No 2{puff} [address] [facility] sulfate 4-10 14-13 Nasal [facility] (ProAir 00:00: 00:00 route. Medical RespiClick) 00 :00 [place] 90 mcg/actuati on AePB albuterol 2020- No 2{puff} [address] [facility] sulfate 4-10 14-13 Nasal [facility] (ProAir 00:00: 00:00 route. Medical RespiClick) 00 :00 Center 90 mcg/actuati on AePB albuterol 2020- No 2{puff} [address] [facility] sulfate 4-10 14-13 Nasal [facility] (ProAir 00:00: 00:00 route. Medical RespiClick) 00 :00 [place] 90 mcg/actuati on AePB predniSONE 2020-0 2020- No [facility] (DELTASONE) 3 04-09 [facility] 20 MG 00:00: 00:00 Medical tablet 00 :00 Center predniSONE 2020-0 2020- No [facility] (DELTASONE) 3 04-09 [facility] 20 MG 00:00: 00:00 Medical tablet 00 :00 Center predniSONE 2020-0 2020- No [facility] (DELTASONE) 3- 04-09 [facility] 20 MG 00:00: 00:00 Medical tablet 00 :00 [place] predniSONE 2020-0 2020- No [facility] (DELTASONE) 3 04-09 [facility] 20 MG 00:00: 00:00 Medical tablet 00 :00 [place] spironolact 2020-0 Yes 50mg Take 1 [facility] one 3-24 Tablet by [facility] (ALDACTONE) 00:00: mouth of 50 MG 00 daily. Medicin tablet e omeprazole 2020-0 Yes [id number] TAKE 1 [facility] (PRILOSEC) 3-24 CAPSULE BY [facility] 40 MG 00:00: MOUTH of capsule 00 EVERY DAY Medicin e spironolact 2020-0 Yes 50mg Take 1 [facility] or one 3-24 Tablet by [place] (ALDACTONE) 00:00: mouth of 50 MG 00 daily. Medicin tablet e omeprazole 2020-0 Yes [id number] TAKE 1 [facility] (PRILOSEC) 3-24 CAPSULE BY [facility] 40 MG 00:00: MOUTH of capsule 00 EVERY DAY Medicin e spironolact 2020-0 Yes 50mg Take 1 [facility] or one 3-24 Tablet by [place] (ALDACTONE) 00:00: mouth of 50 MG 00 daily. Medicin tablet e omeprazole 2020-0 Yes [id number] TAKE 1 [facility] (PRILOSEC) 3-24 CAPSULE BY [facility] 40 MG 00:00: MOUTH of capsule 00 EVERY DAY Medicin e DULoxetine 2020- No 60mg QD Take [address] [facility] (CYMBALTA) 3-18 -18 by mouth Luke [facility] 60 MG 15:57: 00:00 nightly. Medical capsule 30 :00 [place] DULoxetine 2020- No 60mg QD Take [address] [facility] (CYMBALTA) 3-18 -18 by mouth [facility] 60 MG 15:57: 00:00 nightly. Medical capsule 30 :00 [place] DULoxetine 2020- No 60mg QD Take [address] [facility] (CYMBALTA) 3-18 -18 by mouth [facility] 60 MG 15:57: 00:00 nightly. Medical capsule 30 :00 [place] DULoxetine 2020- No 60mg QD Take [address] [facility] (CYMBALTA) 3-18 -18 by mouth [facility] 60 MG 15:57: 00:00 nightly. Medical capsule 30 :00 [place] gabapentin 2020- No 300mg Take 300 [facility] [...] St (SALAGEN) 5 3-18 03-18 by mouth Jaosn es MG tablet 15:56: 00:00 once. Medica l 34 :00 [place] enoxaparin 2020- No Q.5D Inject [facility] [...] Center times daily . ergocalcife 2020- No [id number] Q7D Take [facility] 3-18 03-18 50,000 [facility] (VITAMIN 15:49: 00:00 Units by Medi stephani D2) 1,250 13 :00 mouth once Cent er mcg (50,000 a week . unit) capsule ondansetron 2020-0 1- No 4mg Take [address] [facility] (ZOFRAN-ODT 3-18 03-18 by mouth Jason es ) 4 MG 15:49: 00:00 every 8 Medical disintegrat 13 :00 (eight) Cente r ing tablet hours as needed for Nausea. ferrous 2020-0 2020- No 325mg Q.5D Take 325 [facility] [...] Center daily as needed for Nausea. ergocalcife 2020-2020- No [id number] Q7D Take [facility] 3-18 03-18 [...] tablet hours as needed for Nausea. ferrous 2020-0 2020- No 325mg Q.5D Take 325 [facility] [...] Center daily as needed for Nausea. ergocalcife 2020-2020- No [id number] Q7D Take [facility] 3-18 03-18 [...] needed for Nausea. ergocalcife 2020-0 2020- No [id number] Q7D Take [facility] 3-18 03-18 50,000 [facility] (VITAMIN 15:49: 00:00 Units by Medi stephani D2) 1,250 13 :00 mouth once Cent er mcg (50,000 a week . unit) capsule ondansetron 4mg Take [address] [facility] (ZOFRAN-ODT -18 -18 by mouth Jason es ) 4 MG 15:49: 00:00 every 8 Medical disintegrat 13 :00 (eight) Cente r ing tablet hours as needed for Nausea. ferrous No 325mg Q.5D Take [address] [facility] sulfate 325 3-18 03-18 mg by [facility] (65 FE) MG 15:49: 00:00 mouth 2 Med ical tablet 13 :00 (two) Center times daily. warfarin 3mg QD Take [address] [facility] (COUMADIN) 3-18 -18 by mouth Luke s 3 MG tablet 15:49: 00:00 daily 3MG Medical 13 :00 on Wednesday, Center Wednesday, and Wednesday. . ondansetron 4mg Take [address] [facility] (ZOFRAN) 4 -18 -18 by mouth 2 Elena kes MG tablet [...] 500mg Q.5D Take [address] [facility] (ACTIGALL) 318 -18 of liver tablet Elena kes 500 [...] Center times daily. Apixaban Yes Take by [facility] (ELIQUIS) 3-11 mouth. College 2.5 MG TABS 20:35: of 40 Medicin e nystatin Yes Apply [facility] (MYCOSTATIN 3-11 topically Col [facility]ge ) ointment 20:35: two times of 40 daily. Medicin e omeprazole Yes [id number] TAKE 1 [facility] (PRILOSEC) 3-08 CAPSULE BY Col lege 40 [...] QD Take [address] [facility] one 3-08 03-18 of liver tablet (50 [facility] (ALDACTONE) 00:00: 00:00 with mg total) Medical 50 MG 00 :00 ascites, by mouth Center tablet unspecified daily. hepatic cirrhosis type (HCC) spironolact 2020- No Cirrhosis 50mg QD Take [address] [facility] one 3-08 03-18 of liver tablet (50 [facility] (ALDACTONE) 00:00: 00:00 with mg total) Medical 50 MG 00 :00 ascites, by mouth Center tablet unspecified daily. hepatic cirrhosis type (HCC) spironolact Yes 50mg Take 1 [facility] one 3-04 Tablet by [facility] (ALDACTONE) 00:00: mouth of 50 MG 00 daily. Medicin tablet e promethazin 2020-0 Yes [id number] TAKE 1 [facility] e 3-03 TABLET BY [facility] (PHENERGAN) 00:00: MOUTH of 12.5 MG 00 EVERY 8 Medicin tablet HOURS e NEEDED FOR NAUSEA promethazin 2020-0 Yes [id number] TAKE 1 [facility] e 3-03 TABLET BY [facility] (PHENERGAN) 00:00: MOUTH of 12.5 MG 00 EVERY 8 Medicin tablet HOURS e NEEDED FOR NAUSEA rifAXIMin Yes 550mg Take 550 [facility] 550 MG TABS 2-26 mg by [facility] 00:00: mouth 3 of 00 times Medicin daily. e rifAXIMin Yes 550mg Take 550 [facility] 550 MG TABS 2-26 mg by [facility] 00:00: mouth 3 of 00 times Medicin daily. e Insulin Yes [id number] Inject 40 [facility] Lispro, 1 2-19 units into Danny [facility] Unit Dial, 00:00: the skin of (HUMALOG 00 three Medicin KWIKPEN) times e 100 UNIT/ML daily with SOPN meals. Insulin Yes [id number] Inject 40 [facility] Lispro, 1 2-19 units into [facility] Unit Dial, 00:00: the skin of (HUMALOG 00 three Medicin KWIKPEN) times e 100 UNIT/ML daily with SOPN meals. Insulin 2021- No [id number] Inject 40 [facility] Lispro, 1 2-19 06-20 units into Col [facility] Unit Dial, 00:00: 00:00 the skin of (HUMALOG 00 :00 three Medicin KWIKPEN) times e 100 UNIT/ML daily with SOPN meals. escitalopra 2020-0 Yes [id number] 20mg Take 1 [facility] m (LEXAPRO) 2-02 Tablet by Col [facility]ge 20 MG 00:00: mouth of tablet 00 daily. Medicin e escitalopra 2020-0 Yes [id number] 20mg Take 1 [facility] m (LEXAPRO) 2-02 Tablet by Col [facility] 20 MG 00:00: mouth of tablet 00 daily. Medicin e escitalopra Yes [id number] 20mg Take 1 [facility] m (LEXAPRO) 2-02 Tablet by Col [facility]ge 20 MG 00:00: mouth of tablet 00 daily. Medicin e escitalopra Yes [id number] 20mg Take 1 [facility] m (LEXAPRO) 2-02 Tablet by Col [facility]ge 20 MG 00:00: mouth of tablet 00 daily. Medicin e escitalopra Yes [id number] 20mg Take 1 [facility] m (LEXAPRO) 2-02 Tablet by Col [facility]ge 20 MG 00:00: mouth of tablet 00 daily. Medicin e escitalopra Yes [id number] 20mg Take 1 [facility] m (LEXAPRO) 2-02 Tablet by Col [facility]ge 20 MG 00:00: mouth of tablet 00 daily. Medicin e atorvastati Yes 40mg Take 1 [facility] (LIPITOR) 1-21 Tablet by Col [facility]ge 40 MG 00:00: mouth of tablet 00 daily. Medicin e carvedilol Yes [id number] 6.25mg Take 1 [facility] (COREG) 1- 9105 Tablet by [facility] 6.25 MG 00:00: mouth 2 of tablet 00 times Medicin daily e (with meals). levothyroxi Yes [id number] 125ug Take 1 [facility] ne 1- 9105 Tablet by [facility] (SYNTHROID) 00:00: mouth of 125 MCG 00 daily. Medicin tablet e ferrous Yes ferrous [facility] sulfate 325 - sulfate [facility] (65 Fe) MG 00:00: 325 mg (65 o f tablet 00 mg iron) Medicin tablet e atorvastati Yes 40mg Take 1 [facility] (LIPITOR) 1-21 Tablet by Col [facility]ge 40 MG 00:00: mouth of tablet 00 daily. Medicin e carvedilol Yes [id number] 6.25mg Take 1 [facility] (COREG) 1-21 9105 Tablet by [facility] 6.25 MG 00:00: mouth 2 of tablet 00 times Medicin daily e (with meals). levothyroxi Yes [id number] 125ug Take 1 [facility] ne 1-21 9105 Tablet by [facility] (SYNTHROID) 00:00: mouth of 125 MCG 00 daily. Medicin tablet e atorvastati 0 Yes 40mg Take 1 [facility] (LIPITOR) 1-21 Tablet by Col [facility]ge 40 MG 00:00: mouth of tablet 00 daily. Medicin e carvedilol 2020-0 Yes [id number] 6.25mg Take 1 [facility] (COREG) 1-21 9105 Tablet by [facility] 6.25 MG 00:00: mouth 2 of tablet 00 times Medicin daily e (with meals). levothyroxi 2020-0 Yes [id number] 125ug Take 1 [facility] ne 1-21 9105 Tablet by [facility] (SYNTHROID) 00:00: mouth of 125 MCG 00 daily. Medicin tablet e atorvastati Yes 40mg Take 1 [facility] (LIPITOR) 1-21 Tablet by Col [facility]ge 40 MG 00:00: mouth of tablet 00 daily. Medicin e carvedilol Yes [id number] 6.25mg Take 1 [facility] (COREG) 1-21 9105 Tablet by [facility] 6.25 MG 00:00: mouth 2 of tablet 00 times Medicin daily e (with meals). levothyroxi 0 Yes [id number] 125ug Take 1 [facility] ne 1-21 9105 Tablet by [facility] (SYNTHROID) 00:00: mouth of 125 MCG 00 daily. Medicin tablet e Continuous Yes [id number] 1{each} 1 Each [facility] Blood Gluc 1-08 every 90 [facility] Transmit 00:00: days. Dx of (DEXCOM G6 00 Code: E Medici n TRANSMITTER 11.65 e ) MISC Continuous Yes [id number] 1{each} 1 Each [facility] Blood Gluc 1-08 every 90 [facility] Transmit 00:00: days. Dx of (DEXCOM G6 00 Code: E Medici n TRANSMITTER 11.65 e ) MISC Continuous Yes [id number] 1{each} 1 Each [facility] Blood Gluc 1-08 every 90 Col[facility] Transmit 00:00: days. Dx of (DEXCOM G6 00 Code: E Medici n TRANSMITTER 11.65 e ) MISC Continuous Yes [id number] 1{each} 1 Each [facility] Blood Gluc 1-08 every 90 Colle [facility] Transmit 00:00: days. Dx of (DEXCOM G6 00 Code: E Medici n TRANSMITTER 11.65 e ) MISC Continuous 0 Yes [id number] 1{each} 1 Each [facility] Blood Gluc 1-08 every 90 Colle [facility] Transmit 00:00: days. Dx of (DEXCOM G6 00 Code: E Medici n TRANSMITTER 11.65 e ) MISC Continuous 2020- Yes [id number] 1{each} 1 Each [facility] Blood Gluc 1-08 every 90 Colle ge Transmit 00:00: days. Dx of (DEXCOM G6 00 Code: E Medici n TRANSMITTER 11.65 e ) MISC Continuous 2020- Yes [id number] 1{each} 1 Each [facility] Blood Gluc 1-08 every 90 Colle [facility] Transmit 00:00: days. Dx of (DEXCOM G6 00 Code: E Medici n TRANSMITTER 11.65 e ) MISC Continuous Yes [id number] 1{each} 1 Each [facility] Blood Gluc 1-08 every 90 Colle ge Transmit 00:00: days. Dx of (DEXCOM G6 00 Code: E Medici n TRANSMITTER 11.65 e ) MISC Continuous Yes [id number] 1{each} 1 Each [facility] Blood Gluc 1-08 every 90 Colle [facility] Transmit 00:00: days. Dx of (DEXCOM G6 00 Code: E Medici n TRANSMITTER 11.65 e ) MISC Continuous Yes [id number] 1{each} 1 Each [facility] Blood Gluc 1-08 every 90 Colle ge Transmit 00:00: days. Dx of (DEXCOM G6 00 Code: E Medici n TRANSMITTER 11.65 e ) MISC Continuous Yes [id number] 1{each} 1 Each [facility] Blood Gluc 1-08 every 90 Colle ge Transmit 00:00: days. Dx of (DEXCOM G6 00 Code: E Medici n TRANSMITTER 11.65 e ) MISC Continuous 2020-0 Yes [id number] 1{each} 1 Each [facility] Blood Gluc 1-08 every 90 Colle ge Transmit 00:00: days. Dx of (DEXCOM G6 00 Code: E Medici n TRANSMITTER 11.65 e ) MISC Continuous 2020-0 Yes [id number] 1{each} 1 Each [facility] Blood Gluc 1-08 every 90 Colle ge Transmit 00:00: days. Dx of (DEXCOM G6 00 Code: E Medici n TRANSMITTER 11.65 e ) [facility] carvedilol 2019-10 Yes [id number] 6.25mg Take 6.25 [facility] (COREG) 2-22 9105 mg by [facility] 6.25 MG 15:25: mouth 2 of tablet 28 times Medicin daily e (with meals). atorvastati 2019-10 Yes 40mg Take 40 mg [facility] n (LIPITOR) 2-22 by mouth [facility] 40 MG 15:25: daily. of tablet 28 Medicin e ferrous 2019-10 Yes ferrous [facility] sulfate 325 2-22 sulfate [facility] (65 Fe) MG 15:25: 325 mg (65 o f tablet 28 mg iron) Medicin tablet e spironolact 2019-10 Yes 50mg Take 50 mg [facility] one 2-22 by mouth [facility] (ALDACTONE) 15:25: daily. of 50 MG 28 Medicin tablet e Apixaban 2019-10 Yes Take by [facility] (ELIQUIS) 2-22 mouth. [facility] 2.5 MG TABS 15:25: of 28 Medicin e nystatin 2019-10 Yes Apply [facility] (MYCOSTATIN 2-22 topically Col [facility] ) ointment 15:25: two times of 28 daily. Medicin e carvedilol 2019-10 Yes [id number] 6.25mg Take 6.25 [facility] (COREG) 2-22 9105 mg by [facility] 6.25 MG 13:57: mouth 2 of tablet 15 times Medicin daily e (with meals). atorvastati 2019-10 Yes 40mg Take 40 mg [facility] n (LIPITOR) 2-22 by mouth [facility] 40 MG 13:57: daily. of tablet 15 Medicin e ferrous 2019-10 Yes ferrous [facility] sulfate 325 2-22 sulfate [facility] (65 Fe) MG 13:57: 325 mg (65 o f tablet 15 mg iron) Medicin tablet e spironolact 2019-10 Yes 50mg Take 50 mg [facility] one 2-22 by mouth [facility] (ALDACTONE) 13:57: daily. of 50 MG 15 Medicin tablet e Apixaban 2019-10 Yes Take by [facility] (ELIQUIS) 2-22 mouth. College 2.5 MG TABS 13:57: of 15 Medicin e nystatin 2019-10 Yes Apply [facility] (MYCOSTATIN 2-22 topically [facility] ) ointment 13:57: two times of 15 daily. Medicin e omeprazole 2019-10 Yes [id number] TAKE 1 [facility] (PRILOSEC) 2-22 CAPSULE BY Col [facility]ge 40 MG 00:00: MOUTH of capsule 00 EVERY DAY Medicin e trazodone 2019-10 Yes [facility] (DESYREL) 2-21 [facility] 50 MG 00:00: of tablet 00 Medicin e trazodone 2019-10 Yes [facility] (DESYREL) 2-21 [facility] 50 MG 00:00: of tablet 00 Medicin e XIFAXAN 550 2019-10 Yes TAKE 1 [facility] MG TABS 2-18 TABLET BY [facility] 00:00: MOUTH of 00 THREE Medicin TIMES A e DAY XIFAXAN 550 2019-10 Yes TAKE 1 [facility] MG TABS 2-18 TABLET BY [facility] 00:00: MOUTH of 00 THREE Medicin TIMES A e DAY spironolact 2019-10 Yes 50mg Take 50 mg [facility] one 2-17 by mouth [facility] (ALDACTONE) 19:04: daily. of 50 MG 58 Medicin tablet e Apixaban 2019-10 Yes Take by [facility] (ELIQUIS) 2-17 mouth. [facility] 2.5 MG TABS 19:04: of 58 Medicin e nystatin 2019-10 Yes Apply [facility] (MYCOSTATIN 2-17 topically [facility] ) ointment 19:04: two times of 58 daily. Medicin e carvedilol 2019-10 Yes [id number] 6.25mg Take 6.25 [facility] (COREG) 2-17 9105 mg by [facility] 6.25 MG 19:03: mouth 2 of tablet 40 times Medicin daily e (with meals). atorvastati 2019-10 Yes 40mg Take 40 mg [facility] n (LIPITOR) 2-17 by mouth [facility] 40 MG 19:03: daily. of tablet 40 Medicin e ferrous 2019-10 Yes ferrous [facility] sulfate 325 2-17 sulfate [facility] (65 Fe) MG 19:03: 325 mg (65 o f tablet 40 mg iron) Medicin tablet e triamcinolo 2019-10 2020- No 1 [facility] ne 2-17 12 applicatio [facility] (KENALOG) 19:03: 00:00 n to of 0.1 % 37 :00 affected Medicin lotion area e polyethylen 2019-10 2020- No EVERY DAY [facility] e glycol 2-09-26 College (GLYCOLAX) 19:03: 00:00 DIRECTED of 17 GM/SCOOP 10 :00 Medicin powder e ibuprofen 2019-10 2020- No 1 tablet [facility] (ADVIL) 200 11-27 as needed [facility]lege mg tablet 19:02: 00:00 of 42 :00 Medicin e dicyclomine 2019-10 Yes [id number] TAKE 1 [facility] (BENTYL) 10 2-17 CAPSULE BY Co llege MG capsule 00:00: MOUTH of 00 TWICE A Medicin DAY e dicyclomine 2019-10 Yes [id number] TAKE 1 [facility] (BENTYL) 10 2-17 CAPSULE BY Co llege MG capsule 00:00: MOUTH of 00 TWICE A Medicin DAY e dicyclomine 2019-10 Yes [id number] TAKE 1 [facility] (BENTYL) 10 2-17 CAPSULE BY [facility] llege MG capsule 00:00: MOUTH of 00 TWICE A Medicin DAY e dicyclomine 2019-10 Yes [id number] TAKE 1 [facility] (BENTYL) 10 2-17 CAPSULE BY Co llege MG capsule 00:00: MOUTH of 00 TWICE A Medicin DAY e dicyclomine 2019-10 Yes [id number] TAKE 1 [facility] (BENTYL) 10 2-17 CAPSULE BY Co llege MG capsule 00:00: MOUTH of 00 TWICE A Medicin DAY e dicyclomine 2019-10 Yes [id number] TAKE 1 [facility] (BENTYL) 10 2-17 CAPSULE BY Co llege MG capsule 00:00: MOUTH of 00 TWICE A Medicin DAY e dicyclomine 2019-10 Yes [id number] TAKE 1 [facility] (BENTYL) 10 2-17 CAPSULE BY Co llege MG capsule 00:00: MOUTH of 00 TWICE A Medicin DAY e dicyclomine 2019-10 Yes [id number] TAKE 1 [facility] (BENTYL) 10 2-17 CAPSULE BY [facility]lege MG capsule 00:00: MOUTH of 00 TWICE A Medicin DAY e dicyclomine 2019-10 Yes [id number] TAKE 1 [facility] (BENTYL) 10 2-17 CAPSULE BY Co [facility]lege MG capsule 00:00: MOUTH of 00 TWICE A Medicin DAY e dicyclomine 2019-10 Yes [id number] TAKE 1 [facility] (BENTYL) 10 2-17 CAPSULE BY [facility]lege MG capsule 00:00: MOUTH of 00 TWICE A Medicin DAY e dicyclomine 2019-10 Yes [id number] TAKE 1 [facility] (BENTYL) 10 2-17 CAPSULE BY Co llege MG capsule 00:00: MOUTH of 00 TWICE A Medicin DAY e dicyclomine 2019-10 Yes [id number] TAKE 1 [facility] (BENTYL) 10 2-17 CAPSULE BY Co llege MG capsule 00:00: MOUTH of 00 TWICE A Medicin DAY e dicyclomine 2019-10 Yes [id number] TAKE 1 [facility] (BENTYL) 10 2-17 CAPSULE BY [facility] MG capsule 00:00: MOUTH of 00 TWICE A Medicin DAY e dicyclomine 2019-10 Yes [id number] TAKE 1 [facility] (BENTYL) 10 2-17 CAPSULE BY [facility]lege MG capsule 00:00: MOUTH of 00 TWICE A Medicin DAY e dicyclomine 2019-10 Yes [id number] TAKE 1 [facility] (BENTYL) 10 2-17 CAPSULE BY [facility]lege MG capsule 00:00: MOUTH of 00 TWICE A Medicin DAY e dicyclomine 2019-10- No [id number] TAKE 1 [facility] (BENTYL) 10 2-17 08-22 CAPSULE BY C [facility]lege MG capsule 00:00: 00:00 MOUTH of 00 :00 TWICE A Medicin DAY e carvedilol 2019-10 Yes [id number] 6.25mg Take 6.25 [facility] (COREG) 2-14 9105 mg by [facility] 6.25 MG 19:37: mouth 2 of tablet [...] Medicin powder e triamcinolo 2019-10 Yes 1 [facility] ne 2-14 applicatio [facility] (KENALOG) 19:37: n to of 0.1 % 23 affected Medicin lotion area e Continuous 2019-10 Yes [id number] 1{each} 1 Each [facility] Blood Gluc 2-06 every 10 [facility] Sensor 00:00: days. of (DEXCOM G6 00 Medicin SENSOR) e MISC Continuous 2019-10 Yes [id number] 1{each} 1 Each [facility] Blood Gluc 2-06 every 10 [facility] Sensor 00:00: days. of (DEXCOM G6 00 Medicin SENSOR) e MISC Continuous 2019-10 Yes [id number] 1{each} 1 Each [facility] Blood Gluc 2-06 every 10 [facility] Sensor 00:00: days. of (DEXCOM G6 00 Medicin SENSOR) e MISC Continuous 2019-10 Yes [id number] 1{each} 1 Each [facility] Blood Gluc 2-06 every 10 [facility] Sensor 00:00: days. of (DEXCOM G6 00 Medicin SENSOR) e MISC Continuous 2019-10 Yes [id number] 1{each} 1 Each [facility] Blood Gluc 2-06 every 10 [facility] Sensor 00:00: days. of (DEXCOM G6 00 Medicin SENSOR) e MISC Continuous 2019-10 Yes [id number] 1{each} 1 Each [facility] Blood Gluc 2-06 every 10 [facility] Sensor 00:00: days. of (DEXCOM G6 00 Medicin SENSOR) e MISC Continuous 2019-10 Yes [id number] 1{each} 1 Each [facility] Blood Gluc 2-06 every 10 [facility] Sensor 00:00: days. of (DEXCOM G6 00 Medicin SENSOR) e MISC Continuous 2019-10 Yes [id number] 1{each} 1 Each [facility] Blood Gluc 2-06 every 10 [facility] Sensor 00:00: days. of (DEXCOM G6 00 Medicin SENSOR) e MISC Continuous 2019-10 Yes [id number] 1{each} 1 Each [facility] Blood Gluc 2-06 every 10 [facility] Sensor 00:00: days. of (DEXCOM G6 00 Medicin SENSOR) e MISC Continuous 2019- Yes [id number] 1{each} 1 Each [facility] Blood Gluc 2-06 every 10 [facility] Sensor 00:00: days. of (DEXCOM G6 00 Medicin SENSOR) e MISC Continuous 2019- Yes [id number] 1{each} 1 Each [facility] Blood Gluc 2-06 every 10 [facility] Sensor 00:00: days. of (DEXCOM G6 00 Medicin SENSOR) e MISC Continuous 2019- Yes [id number] 1{each} 1 Each [facility] Blood Gluc 2-06 every 10 [facility] Sensor 00:00: days. of (DEXCOM G6 00 Medicin SENSOR) e MISC Continuous 2019- Yes [id number] 1{each} 1 Each [facility] Blood Gluc 2-06 every 10 [facility]le [facility] Sensor 00:00: days. of (DEXCOM G6 00 Medicin SENSOR) e MISC Continuous 2019- Yes [id number] 1{each} 1 Each [facility] Blood Gluc 2-06 every 10 [facility] Sensor 00:00: days. of (DEXCOM G6 00 Medicin SENSOR) e MISC Continuous 2019- Yes [id number] 1{each} 1 Each [facility] Blood Gluc 2-06 every 10 [facility] Sensor 00:00: days. of (DEXCOM G6 00 Medicin SENSOR) e MISC Continuous 2019-10 Yes [id number] 1{each} 1 Each [facility] Blood Gluc 2-06 every 10 [facility] Sensor 00:00: days. of (DEXCOM G6 00 Medicin SENSOR) e MISC Continuous 2019- Yes [id number] 1{each} 1 Each [facility] Blood Gluc 2-06 every 10 Colle ge Sensor 00:00: days. of (DEXCOM G6 00 Medicin SENSOR) e MISC Continuous 2019- Yes 1{each} 1 Each [facility] Blood Gluc 2-01 continuous [facility] Machine Operations Supervisor 00:00: . of (DEXCOM G6 00 Medicin HARDBOARD SUPERVISOR) e MONICA Continuous 2019- Yes 1{each} 1 Each [facility] Blood Gluc 2-01 every 90 [facility] Transmit 00:00: days. of (DEXCOM G6 00 Medicin TRANSMITTER e ) MISC Continuous 2019- Yes 1{each} 1 Each [facility] Blood Gluc 2-01 continuous Col [facility] Machine Operations Supervisor 00:00: . of (DEXCOM G6 00 Medicin HARDBOARD SUPERVISOR) e MONICA Continuous 2019-10 Yes 1{each} 1 Each [facility] Blood Gluc 2-01 every 90 [facility] Transmit 00:00: days. of (DEXCOM G6 00 Medicin TRANSMITTER e ) MISC Continuous 2019-10 Yes 1{each} 1 Each [facility] Blood Gluc 2-01 continuous Col [facility]ge Machine Operations Supervisor 00:00: . of (DEXCOM G6 00 Medicin HARDBOARD SUPERVISOR) e MONICA Continuous 2019-10 Yes 1{each} 1 Each [facility] Blood Gluc 2-01 every 90 [facility] Transmit 00:00: days. of (DEXCOM G6 00 Medicin TRANSMITTER e ) MISC Continuous 2019-10 Yes 1{each} 1 Each [facility] Blood Gluc 2-01 continuous Col [facility]ge Machine Operations Supervisor 00:00: . of (DEXCOM G6 00 Medicin HARDBOARD SUPERVISOR) e MONICA Continuous 2019-10 Yes 1{each} 1 Each [facility] Blood Gluc 2-01 every 90 [facility] Transmit 00:00: days. of (DEXCOM G6 00 Medicin TRANSMITTER e ) MISC Continuous 2019-10 Yes 1{each} 1 Each [facility] Blood Gluc 2-01 continuous Col [facility]ge Machine Operations Supervisor 00:00: . of (DEXCOM G6 00 Medicin HARDBOARD SUPERVISOR) e MONICA Continuous 2019-10 Yes 1{each} 1 Each [facility] Blood Gluc 2-01 continuous Col [facility]ge Machine Operations Supervisor 00:00: . of (DEXCOM G6 00 Medicin HARDBOARD SUPERVISOR) e MONICA Continuous 2019-10 Yes 1{each} 1 Each [facility] Blood Gluc 2-01 continuous Col [facility] Machine Operations Supervisor 00:00: . of (DEXCOM G6 00 Medicin HARDBOARD SUPERVISOR) e MONICA Continuous 2019-10 Yes 1{each} 1 Each [facility] Blood Gluc 2-01 continuous Col [facility]ge Machine Operations Supervisor 00:00: . of (DEXCOM G6 00 Medicin HARDBOARD SUPERVISOR) e MONICA Continuous 2019-10 Yes 1{each} 1 Each [facility] Blood Gluc 2-01 continuous Col [facility]ge Machine Operations Supervisor 00:00: . of (DEXCOM G6 00 Medicin HARDBOARD SUPERVISOR) e MONICA Continuous 2019-10 Yes 1{each} 1 Each [facility] Blood Gluc 2-01 continuous Col [facility]ge Machine Operations Supervisor 00:00: . of (DEXCOM G6 00 Medicin HARDBOARD SUPERVISOR) e MONICA Continuous 2019-10 Yes 1{each} 1 Each [facility] Blood Gluc 2-01 continuous Col [facility]ge Machine Operations Supervisor 00:00: . of (DEXCOM G6 00 Medicin HARDBOARD SUPERVISOR) e MONICA Continuous 2019-10 Yes 1{each} 1 Each [facility] Blood Gluc 2-01 continuous Col [facility]ge Machine Operations Supervisor 00:00: . of (DEXCOM G6 00 Medicin HARDBOARD SUPERVISOR) e MONICA Continuous 2019-10 Yes 1{each} 1 Each [facility] Blood Gluc 2-01 continuous Col [facility]ge Machine Operations Supervisor 00:00: . of (DEXCOM G6 00 Medicin HARDBOARD SUPERVISOR) e MONICA Continuous 2019-10 Yes 1{each} 1 Each [facility] Blood Gluc 2-01 continuous Col [facility] Machine Operations Supervisor 00:00: . of (DEXCOM G6 00 Medicin HARDBOARD SUPERVISOR) e MONICA Continuous 2019-10 Yes 1{each} 1 Each [facility] Blood Gluc 2-01 continuous Col [facility]ge Machine Operations Supervisor 00:00: . of (DEXCOM G6 00 Medicin HARDBOARD SUPERVISOR) e MONICA Continuous 2019-10 Yes 1{each} 1 Each [facility] Blood Gluc 2-01 continuous Col [facility]ge Machine Operations Supervisor 00:00: . of (DEXCOM G6 00 Medicin HARDBOARD SUPERVISOR) e MONICA Continuous 2019-10 Yes 1{each} 1 Each [facility] Blood Gluc 2-01 continuous Col [facility]ge Machine Operations Supervisor 00:00: . of (DEXCOM G6 00 Medicin HARDBOARD SUPERVISOR) e MONICA ondansetron 2019-10 2020- No ondansetro [facility] (ZOFRAN) 4 10-28 n HCl 4 mg [facility]lege MG tablet 20:49: 00:00 tablet of 52 :00 Medicin e Ascorbic 2019-10- No Take by [facility] Acid 10-28 mouth. College (VITAMIN C 20:49: 00:00 of OR) 52 :00 Medicin e ascorbic 2019-10 2020- No 500mg Take 500 [facility] acid 500 MG 10-28 mg by Colleg e tablet 20:49: 00:00 mouth. of 52 :00 Medicin e Ascorbic 2019-10 2020- No 1 capsule [facility] Acid 10-28 [facility] (VITAMIN C) 20:49: 00:00 of 500 MG CAPS 52 :00 Medicin e Emollient 2019-10 2020- No Unknown [facility] (GOLD MARTINEZ 10-28 College MEDICATED 20:49: 00:00 of BODY) 52 :00 Medicin 5-0.15 % e LOTN folic acid 2019-10 2020- No 1 tablet [facility] 800 MCG 10-28 College TABS 20:49: 00:00 of 52 :00 Medicin e hyoscyamine 2019-10 2020- No 2 tablet [facility] (LEVSIN/SL) 10-28 as needed [facility]lege 0.125 MG SL 20:49: 00:00 of tablet 52 :00 Medicin e lisinopril 2019-10 2020- No TAKE 1 [facility] (PRINIVIL, 10-28 TABLET BY Col [facility]onny ZESTRIL) 5 20:49: 00:00 MOUTH of MG tablet 52 :00 EVERY DAY Medic in e Methylcobal 2019-10 2020- No Unknown [facility] maier 10-28 [facility] ([id number] 20:49: 00:00 of ) 1 MG CHEW 52 :00 Medicin e Pantoprazol 2019-10- No 1 packet [facility] e Sodium 10-28 [facility] (PROTONIX) 20:49: 00:00 of 40 MG PACK 52 :00 Medicin e Psyllium 2019-10- No 1 packet [facility] (METAMUCIL) 10-28 with 8 [facility]le [facility] WAFR 20:49: 00:00 ounces of of 52 :00 liquid as Medicin needed e ondansetron 2019-10 2020- No ondansetro [facility] (ZOFRAN) 4 10-28 n HCl 4 mg Co llege MG tablet 20:49: 00:00 tablet of 52 :00 Medicin e Ascorbic 2019-10 2020- No Take by [facility] Acid 10-28 mouth. [facility] (VITAMIN C 20:49: 00:00 of OR) 52 :00 Medicin e ascorbic 2019-10 2020- No 500mg Take 500 [place] cruzito acid 500 MG 10-28 mg by Colleg e tablet 20:49: 00:00 mouth. of 52 :00 Medicin e Ascorbic 2019-10- No 1 capsule [facility] Acid 10-28 [facility] (VITAMIN C) 20:49: 00:00 of 500 MG CAPS 52 :00 Medicin e Emollient 2019-10 2020- No Unknown [facility] (GOLD MARTINEZ 10-28 [facility] MEDICATED 20:49: 00:00 of BODY) 52 :00 Medicin 5-0.15 % e LOTN folic acid 2019-10 2020- No 1 tablet Ba [facility] 800 MCG 10-28 College TABS 20:49: 00:00 of 52 :00 Medicin e hyoscyamine 2019-10 2020- No 2 tablet [facility] (LEVSIN/SL) 10-28 as needed Co llege 0.125 MG SL 20:49: 00:00 of tablet 52 :00 Medicin e lisinopril 2019-10 2020- No TAKE 1 [facility] (PRINIVIL, 10-28 TABLET BY Col yonny DURAN) 5 20:49: 00:00 MOUTH of MG tablet 52 :00 EVERY DAY Medic in e Methylcobal 2019-10 2020- No Unknown [facility] maier 10-28 [facility] ([id number] 20:49: 00:00 of ) 1 MG CHEW 52 :00 Medicin e Pantoprazol 2019-10 2020- No 1 packet [facility] Sodium 10-28 [facility] (PROTONIX) 20:49: 00:00 of 40 MG PACK 52 :00 Medicin e Psyllium 2019-10 2020- No 1 packet [facility] (METAMUCIL) 10-28 with 8 [facility]le [facility] WAFR 20:49: 00:00 ounces of of 52 :00 liquid as Medicin needed e warfarin 2019-10 2020- No Unknown [facility] (COUMADIN) 10-28 [facility] 5 MG tablet 20:49: 00:00 of 05 :00 Medicin e warfarin 2019-10 2020- No Unknown [facility] (COUMADIN) 10-28 [facility] 5 MG tablet 20:49: 00:00 of 05 :00 Medicin e carvedilol 2019-10 Yes [id number] 6.25mg Take 6.25 [facility] (COREG) 10-28 9105 mg by College 6.25 MG 20:45: mouth 2 of tablet 11 times Medicin daily e (with meals). atorvastati 2019-10 Yes 40mg Take 40 mg Y[facility] n (LIPITOR) 10-28 by mouth Danny ege 40 MG 20:45: daily. of tablet 11 Medicin e ferrous 2019-10 Yes ferrous [facility] sulfate 325 10-28 sulfate Colle ge (65 Fe) MG 20:45: 325 mg (65 o f tablet 11 mg iron) Medicin tablet e ibuprofen 2019-10 Yes 1 tablet [facility] (ADVIL) 200 1-18 as needed Col lege mg tablet 20:45: of 11 Medicin e polyethylen 2019-10 Yes EVERY DAY [facility] e glycol -18 [facility] (GLYCOLAX) 20:45: DIRECTED of 17 GM/SCOOP 11 Medicin powder e triamcinolo 2019-10 Yes 1 [facility] ne 10-28 applicatio [facility] ([facility]) 20:45: n to of 0.1 % 11 affected Medicin lotion area e carvedilol 2019-10 Yes [id number] 6.25mg Take 6.25 [facility] (COREG) 18 9105 mg by College 6.25 MG 20:45: mouth 2 of tablet 11 times Medicin daily e (with meals). atorvastati 2019-10 Yes 40mg Take 40 mg Yon n (LIPITOR) 18 by mouth Danny ege 40 MG 20:45: daily. of tablet 11 Medicin e ferrous 2019-10 Yes ferrous [facility] sulfate 325 18 sulfate Colle ge (65 Fe) MG 20:45: 325 mg (65 o f tablet 11 mg iron) Medicin tablet e ibuprofen 2019-10 Yes 1 tablet [facility] (ADVIL) 200 -18 as needed Col lege mg tablet 20:45: of 11 Medicin e polyethylen 2019-10 Yes EVERY DAY [facility] e glycol 18 [facility] (GLYCOLAX) 20:45: DIRECTED of 17 GM/SCOOP 11 Medicin powder e triamcinolo 2019-10 Yes 1 [facility] ne 10-28 applicatio [facility] ([facility]) 20:45: n to of 0.1 % 11 affected Medicin lotion area e Glucagon 2019-10 Yes [id number] 3mg 3 mg by Samra garcia (BAQSIMI 18 Nasal [facility] TWO PACK) 3 00:00: route as of MG/DOSE 00 needed for Medici n POWD Other (if e unresponsi ve and call 911 if not waking up). may repeat once more in 15min Glucagon 2019-10 Yes [id number] 3mg 3 mg by Samra garcia (BAQSIMI -18 Nasal [facility] TWO PACK) 3 00:00: route as of MG/DOSE 00 needed for Medici n POWD Other (if e unresponsi ve and call 911 if not waking up). may repeat once more in 15min Glucagon 2019-10 Yes [id number] 3mg 3 mg by [facility] (BAQSIMI 1-18 Nasal [facility] TWO PACK) 3 00:00: route as of MG/DOSE 00 needed for Medici n POWD Other (if e unresponsi ve and call 911 if not waking up). may repeat once more in 15min Glucagon 2019-10 Yes [id number] 3mg 3 mg by [facility] (BAQSIMI 1-18 Nasal [facility] TWO PACK) 3 00:00: route as of MG/DOSE 00 needed for Medici n POWD Other (if e unresponsi ve and call 911 if not waking up). may repeat once more in 15min Glucagon 2019-10 Yes [id number] 3mg 3 mg by [facility] (BAQSIMI 1-18 Nasal [facility] TWO PACK) 3 00:00: route as of MG/DOSE 00 needed for Medici n POWD Other (if e unresponsi ve and call 911 if not waking up). may repeat once more in 15min Glucagon 2019-10 Yes [id number] 3mg 3 mg by [facility] (BAQSIMI 1-18 Nasal [facility] TWO PACK) 3 00:00: route as of MG/DOSE 00 needed for Medici n POWD Other (if e unresponsi ve and call 911 if not waking up). may repeat once more in 15min Glucagon 2019-10 Yes [id number] 3mg 3 mg by [facility] (BAQSIMI 1-18 Nasal [facility] TWO PACK) 3 00:00: route as of MG/DOSE 00 needed for Medici n POWD Other (if e unresponsi ve and call 911 if not waking up). may repeat once more in 15min Glucagon 2019-10 Yes [id number] 3mg 3 mg by [facility] (BAQSIMI 1-18 Nasal [facility] TWO PACK) 3 00:00: route as of MG/DOSE 00 needed for Medici n POWD Other (if e unresponsi ve and call 911 if not waking up). may repeat once more in 15min Glucagon 2019-10 Yes [id number] 3mg 3 mg by [facility] (BAQSIMI 1-18 Nasal [facility] TWO PACK) 3 00:00: route as of MG/DOSE 00 needed for Medici n POWD Other (if e unresponsi ve and call 911 if not waking up). may repeat once more in 15min Glucagon 2019-10 Yes [id number] 3mg 3 mg by [facility] (BAQSIMI 1-18 Nasal [facility] TWO PACK) 3 00:00: route as of MG/DOSE 00 needed for Medici n POWD Other (if e unresponsi ve and call 911 if not waking up). may repeat once more in 15min Glucagon 2019-10 Yes [id number] 3mg 3 mg by [facility] (BAQSIMI 1-18 Nasal [facility] TWO PACK) 3 00:00: route as of MG/DOSE 00 needed for Medici n POWD Other (if e unresponsi ve and call 911 if not waking up). may repeat once more in 15min Glucagon 2019-10 Yes [id number] 3mg 3 mg by [facility] (BAQSIMI 1-18 Nasal [facility] TWO PACK) 3 00:00: route as of MG/DOSE 00 needed for Medici n POWD Other (if e unresponsi ve and call 911 if not waking up). may repeat once more in 15min Glucagon 2019-10 Yes [id number] 3mg 3 mg by [facility] (BAQSIMI 1-18 Nasal [facility] TWO PACK) 3 00:00: route as of MG/DOSE 00 needed for Medici n POWD Other (if e unresponsi ve and call 911 if not waking up). may repeat once more in 15min Glucagon 2019-10 Yes [id number] 3mg 3 mg by [facility] (BAQSIMI 1-18 Nasal [facility] TWO PACK) 3 00:00: route as of MG/DOSE 00 needed for Medici n POWD Other (if e unresponsi ve and call 911 if not waking up). may repeat once more in 15min Glucagon 2019-10 Yes [id number] 3mg 3 mg by [facility] (BAQSIMI 1-18 Nasal [facility] TWO PACK) 3 00:00: route as of MG/DOSE 00 needed for Medici n POWD Other (if e unresponsi ve and call 911 if not waking up). may repeat once more in 15min Glucagon 2019-10 Yes [id number] 3mg 3 mg by [facility] (BAQSIMI 1-18 Nasal [facility] TWO PACK) 3 00:00: route as of MG/DOSE 00 needed for Medici n POWD Other (if e unresponsi ve and call 911 if not waking up). may repeat once more in 15min Glucagon 2019-10 Yes [id number] 3mg 3 mg by [facility] (BAQSIMI 1-18 Nasal [facility] TWO PACK) 3 00:00: route as of MG/DOSE 00 needed for Medici n POWD Other (if e unresponsi ve and call 911 if not waking up). may repeat once more in 15min Glucagon 2019-10 Yes [id number] 3mg 3 mg by [facility] (BAQSIMI 1-18 Nasal [facility] TWO PACK) 3 00:00: route as of [...] TWICE A Center DAY Insulin 2019-10 Yes [id number] Inject up [facility] Aspart 1-17 to 40 College (NOVOLOG 00:00: units with of FLEXPEN) 00 food 3 Medicin 100 UNIT/ML times e SOPN daily. Hold if NOT eating. Insulin 2019-10 Yes [id number] Inject up [facility] Aspart 1-17 to 40 College (NOVOLOG 00:00: units with of FLEXPEN) 00 food 3 Medicin 100 UNIT/ML times e SOPN daily. Hold if NOT eating. Insulin 2019-10 Yes [id number] Inject up [facility] Aspart 1-17 to 40 College (NOVOLOG 00:00: units with of FLEXPEN) 00 food 3 Medicin 100 UNIT/ML times e SOPN daily. Hold if NOT eating. Insulin 2019- Yes [id number] Inject up [facility] Aspart 1-17 to 40 [facility] (NOVOLOG 00:00: units with of FLEXPEN) 00 food 3 Medicin 100 UNIT/ML times e SOPN daily. Hold if NOT eating. Insulin 2019-10 Yes [id number] Inject up [facility] Aspart 1-17 to 40 [facility] (NOVOLOG 00:00: units with of FLEXPEN) 00 food 3 Medicin 100 UNIT/ML times e SOPN daily. Hold if NOT eating. Insulin 2019-10 Yes [id number] Inject up [facility] Aspart 1-17 to 40 [facility] (NOVOLOG 00:00: units with of FLEXPEN) 00 food 3 Medicin 100 UNIT/ML times e SOPN daily. Hold if NOT eating. dicyclomine 2019-10 Yes [id number] TAKE 1 [facility] (BENTYL) 10 1-16 CAPSULE BY Co llege MG capsule 00:00: MOUTH of 00 TWICE A Medicin DAY e famotidine 2019-10 Yes [id number] TAKE 1 [facility] (PEPCID) 40 1-16 TABLET BY Col lege MG tablet 00:00: MOUTH of 00 EVERY DAY Medicin e dicyclomine 2019- Yes [id number] TAKE 1 [facility] (BENTYL) 10 1-16 CAPSULE BY Co llege MG capsule 00:00: MOUTH of 00 TWICE A Medicin DAY e famotidine 2019-10 Yes [id number] TAKE 1 [facility] (PEPCID) 40 1-16 TABLET BY Col lege MG tablet 00:00: MOUTH of 00 EVERY DAY Medicin e dicyclomine 2020- Yes [id number] TAKE 1 [facility] (BENTYL) 10 1-16 CAPSULE BY Co llege MG capsule 00:00: MOUTH of 00 TWICE A Medicin DAY e famotidine 2019-10 Yes [id number] TAKE 1 [facility] (PEPCID) 40 1-16 TABLET BY Col lege MG tablet 00:00: MOUTH of 00 EVERY DAY Medicin e famotidine 2019-10 2020- No [id number] TAKE 1 [facility] (PEPCID) 40 1-16 12-17 TABLET BY Co llege MG tablet 00:00: 00:00 MOUTH of 00 :00 EVERY DAY Medicin e nystatin 2019-10- No APPLY TO [facility] (MYCOSTATIN 10-14 [...] 2 (two) times daily. escitalopra 2019-10 Yes [id number] 20mg Take 1 Tab [facility] m (LEXAPRO) 1-03 by mouth Danny ege 20 MG 00:00: daily. of tablet 00 Medicin e escitalopra 2019-10 Yes [id number] 20mg Take 1 Tab [facility] m (LEXAPRO) 1-03 by mouth Danny ege 20 MG 00:00: daily. of tablet 00 Medicin e escitalopra 2019-10 Yes [id number] 20mg Take 1 Tab [facility] m (LEXAPRO) 1-03 by mouth Danny ege 20 MG 00:00: daily. of tablet 00 Medicin e escitalopra 2019-10 Yes [id number] 20mg Take 1 Tab [facility] m (LEXAPRO) 1-03 by mouth Danny ege 20 MG 00:00: daily. of tablet 00 Medicin e escitalopra 2019-10 Yes [id number] 20mg Take 1 Tab [facility] m (LEXAPRO) 10-13 by mouth Danny ege 20 MG 00:00: daily. of tablet 00 Medicin e escitalopra 2019-10 Yes [id number] 20mg Take 1 Tab [facility] m (LEXAPRO) 10-13 by mouth Danny ege 20 MG 00:00: daily. of tablet 00 Medicin e rifAXIMin 2019-10- No Hepatic 550mg Q.5D Take [address] (Xifaxan) 10-13 05-05 encephalopa tablet [facility] 550 mg Tab 00:00: 00:00 thy (HCC) (550 mg Medical 00 :00 total) by Center mouth 2 (two) times daily. trazodone 2019-10- No [id number] 100mg Take 2 [facility] (DESYREL) 10-13 12-04 Tabs by Colleg e 50 MG 00:00: 05:59 mouth of tablet 00 :00 nightly Medicin for 30 e days. trazodone 2019-10- No [id number] 100mg Take 2 [facility] (DESYREL) 10-13 12-04 Tabs by Colleg e 50 MG 00:00: 05:59 mouth of tablet 00 :00 nightly Medicin for 30 e days. busPIRone 2019-10- No [id number] 7.5mg Take 1 Tab [facility] (BUSPAR) 10-1318 by mouth Colleg e 7.5 MG 00:00: 00:00 two times of tablet 00 :00 daily for Medicin 30 days. e busPIRone 2019-10- No [id number] 7.5mg Take 1 Tab [facility] (BUSPAR) 10-1318 by mouth Colleg e 7.5 MG 00:00: 00:00 two times of tablet 00 :00 daily for Medicin 30 days. e XIFAXAN 550 2019-10 Yes 550mg 550 mg 3 [facility] MG TABS 0-26 times College 00:00: daily. of 00 Medicin e promethazin 2019-10 Yes [id number] TAKE 1 Yon e 0-26 TABLET BY [facility] (PHENERGAN) 00:00: MOUTH of 12.5 MG 00 EVERY 8 Medicin tablet HOURS e NEEDED FOR NAUSEA XIFAXAN 550 2020-1 Yes 550mg 550 mg 3 [facility] MG TABS 0-26 times College 00:00: daily. of 00 Medicin e promethazin 2020 Yes [id number] TAKE 1 Y[facility] e 0-26 TABLET BY [facility] (PHENERGAN) 00:00: MOUTH of 12.5 MG 00 EVERY 8 Medicin tablet HOURS e NEEDED FOR NAUSEA XIFAXAN 550 2019-1 Yes 550mg 550 mg 3 [facility] MG TABS 0-26 times College 00:00: daily. of 00 Medicin e promethazin 2019-10 Yes [id number] TAKE 1 Yon e 0-26 TABLET BY [facility] (PHENERGAN) 00:00: MOUTH of 12.5 MG 00 EVERY 8 Medicin tablet HOURS e NEEDED FOR NAUSEA XIFAXAN 550 2019- Yes 550mg 550 mg 3 [facility] MG TABS 0-26 times [facility] 00:00: daily. of 00 Medicin e promethazin 2019-10 Yes [id number] TAKE 1 Yon e 0-26 TABLET BY [facility] (PHENERGAN) 00:00: MOUTH of 12.5 MG 00 EVERY 8 Medicin tablet HOURS e NEEDED FOR NAUSEA promethazin 2019-10 Yes [id number] TAKE 1 [facility] e 0-26 TABLET BY [facility] (PHENERGAN) 00:00: MOUTH of 12.5 MG 00 EVERY 8 Medicin tablet HOURS e NEEDED FOR NAUSEA promethazin 2019- Yes [id number] TAKE 1 Yon e 0-26 TABLET BY [facility] (PHENERGAN) 00:00: MOUTH of 12.5 MG 00 EVERY 8 Medicin tablet HOURS e NEEDED FOR NAUSEA XIFAXAN 2019-10 Yes [facility] (RIFAXIMIN) 0-22 [facility] 550 MG TABS 00:00: ty 00 Health spironolact 2019-10 Yes Take by [facility] cruzito one 0-22 mouth. [facility] (ALDACTONE) 00:00: of 50 MG 00 Medicin tablet e spironolact 2019- Yes Take by [facility] cruzito one 0-22 mouth. [facility] (ALDACTONE) 00:00: of 50 MG 00 Medicin tablet e FERROUS 2019- Yes [facility] SULFATE 0-22 [facility]i (FERROUS 00:00: ty SULFATE 00 Health TABS) TABS (CARVEDILOL 2020- Yes [facility] ) 6.25 MG 0-22 Communi [...] Communi TABS 00:00: ty 00 Health (LEVOTHYROX 2019-1 Yes [facility] INE SODIUM) 0-22 [facility] 125 MCG 00:00: ty TABS 00 Health spironolact 2019- 2020- No Take by Ba [facility] one 022 12-17 mouth. College (ALDACTONE) 00:00: 00:00 of [...] 1 tablet [facility] n (CRESTOR) 07-01 College 20 MG 06:17: 00:00 of tablet 49 :00 Medicin e glimepiride 2020-0 2020- No 1 tablet [facility] (AMARYL) 4 07-01 College MG tablet 06:17: 00:00 of 07 :00 Medicin e thyroid 2020-0 2020- No 1 tablet [facility] (ARMOUR 07-01 [facility] THYROID) 06:16: 00:00 of 120 MG 49 :00 Medicin tablet e pravastatin 2019-0 2020- No 1 tablet [facility] (PRAVACHOL) 07-01 [facility] 40 MG 06:15: 00:00 of tablet 31 :00 Medicin e carvedilol 2019-0 Yes [id number] 6.25mg Take 6.25 [facility] (COREG) - 9105 mg by [facility] 6.25 MG 18:53: mouth 2 of tablet 35 times Medicin daily e (with meals). atorvastati 2019-0 Yes 40mg Take 40 mg [facility] n (LIPITOR) 9-16 by mouth Danny ege 40 MG 18:53: daily. of tablet 35 Medicin e ferrous 2020-0 Yes ferrous [facility] sulfate 325 - sulfate Colle ge (65 Fe) MG 18:53: 325 mg (65 o f tablet 35 mg iron) Medicin tablet e ondansetron 2019-0 Yes ondansetro [facility] (ZOFRAN) 4 9-16 n HCl 4 mg Col lege MG tablet 18:53: tablet of 35 Medicin e Ascorbic 2020-0 Yes Take by [facility] Acid 9-16 mouth. College (VITAMIN C 18:53: of OR) 35 Medicin e ascorbic 2020-0 Yes 500mg Take 500 [facility] acid 500 MG 9-16 mg by [facility] tablet 18:53: mouth. of 35 Medicin e Ascorbic 2020-0 Yes 1 capsule [facility] Acid -16 [facility] (VITAMIN C) 18:53: of 500 MG CAPS 35 Medicin e busPIRone 2019-0 Yes TAKE 1 [facility] (BUSPAR) 10 -16 TABLET BY Col lege MG tablet 18:53: MOUTH of 35 TWICE A Medicin DAY e NEEDED Emollient 2020-0 Yes Unknown [facility] (GOLD MARTINEZ 06-26 [facility] MEDICATED 18:53: of BODY) 35 Medicin 5-0.15 % e LOTN folic acid 2019-0 Yes 1 tablet [facility] cruzito 800 MCG 06-26 [facility] TABS 18:53: of 35 Medicin e hyoscyamine 2020-0 Yes 2 tablet [facility] (LEVSIN/SL) 06-26 as needed Col lege 0.125 MG SL 18:53: of tablet 35 Medicin e ibuprofen 2020-0 Yes 1 tablet [facility] (ADVIL) 200 06-26 as needed Col lege mg tablet 18:53: of 35 Medicin e lisinopril 0 Yes TAKE 1 [facility] (PRINIVIL, 06-26 TABLET BY Danny DURAN) 5 18:53: MOUTH of MG tablet 35 EVERY DAY Medic in e Methylcobal 2019-0 Yes Unknown [facility] cruzito maier 06-26 [facility] ([id number] 18:53: of ) 1 MG CHEW 35 Medicin e Pantoprazol 0 Yes 1 packet [facility] e Sodium 06-26 [facility] (PROTONIX) 18:53: of 40 MG PACK 35 Medicin e polyethylen 2020-0 Yes EVERY DAY [facility] e glycol 06-26 [facility] (GLYCOLAX) 18:53: DIRECTED of 17 GM/SCOOP 35 Medicin powder e Psyllium 2019-0 Yes 1 packet [facility] (METAMUCIL) 06-26 with 8 Colleg e WAFR 18:53: ounces of of 35 liquid as Medicin needed e venlafaxine 2019-0 Yes 2 tablets [facility] (EFFEXOR) 06-26 [facility] 75 MG 18:53: of tablet 35 Medicin e triamcinolo 2020-0 Yes 1 [facility] ne 06-26 applicatio [facility] (KENALOG) 18:53: n to of 0.1 % 35 affected Medicin lotion area e warfarin 2019-0 Yes Unknown [facility] (COUMADIN) 06-26 [facility] 5 MG tablet 18:53: of 35 Medicin e metformin 2020-0 2020- No TAKE 2 [facility] (GLUCOPHAGE 06-26 TABLETS BY Adelina zayas ) 500 MG 18:52: 00:00 MOUTH of tablet 31 :00 TWICE A Medicin DAY WITH e MEALS Continuous 2020-0 Yes [id number] Use new [facility] Blood Gluc 9-16 sensor College Sensor 00:00: every 14 of (FREESTYLE 00 days back Medi praneeth DEANA 14 of the e DAY SENSOR) upper arm, MISC call if under 70 Continuous 2020-0 Yes [id number] Use reader [facility] Blood Gluc 9-16 to test Colleg e [employer] Supervisor 00:00: sugar of (FREESTYLE 00 before Medicin DEANA each meal, e READER) before MONICA sleep, as needed for lows or feeling shaky, sweaty, dizzy Continuous 2020-0 Yes [id number] 1{box} 1 Box [facility] Blood Gluc 9-16 every 14 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 of (FREESTYLE 00 Lot#: Medicin DEANA 2 [id number] e READER Exp: SYSTM) MONICA 12/08/2020 Continuous 2020-0 Yes [id number] 1{each} 1 Each Use [facility] Blood Gluc 9-16 as College Sensor 00:00: Directed. of (FREESTYLE 00 Lot:[id number] Med icin DEANA 2 6Exp:12/08 e SENSOR /2020 SYSTM) MISC Continuous 2020-0 Yes [id number] Use new [facility] Blood Gluc 9-16 sensor College Sensor 00:00: every 14 of (FREESTYLE 00 days back Medi praneeth DEANA 14 of the e DAY SENSOR) upper arm, MISC call if under 70 Continuous 2020-0 Yes [id number] Use reader [facility] Blood Gluc 9-16 to test Colleg e [employer] Supervisor 00:00: sugar of (FREESTYLE 00 before Medicin DEANA each meal, e READER) before MONICA sleep, as needed for lows or feeling shaky, sweaty, dizzy Continuous 2020-0 Yes [id number] 1{box} 1 Box [facility] Blood Gluc 9-16 every 14 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 of (FREESTYLE 00 Lot#: Medicin DEANA 2 [id number] e READER Exp: SYSTM) MONICA 12/08/2020 Continuous 2020-0 Yes [id number] 1{each} 1 Each Use [facility] Blood Gluc 9-16 as College Sensor 00:00: Directed. of (FREESTYLE 00 Lot:[id number] Med icin DEANA 2 6Exp:12/08 e SENSOR /2020 SYSTM) MISC Continuous 2020-0 Yes [id number] Use new [facility] Blood Gluc 9-16 sensor College Sensor 00:00: every 14 of (FREESTYLE 00 days back Medi praneeth DEANA 14 of the e DAY SENSOR) upper arm, MISC call if under 70 Continuous 2020-0 Yes [id number] Use reader [facility] Blood Gluc 9-16 to test Colleg e [employer] Supervisor 00:00: sugar of (FREESTYLE 00 before Medicin DEANA each meal, e READER) before MONICA sleep, as needed for lows or feeling shaky, sweaty, dizzy Continuous 2020-0 Yes [id number] 1{box} 1 Box [facility] Blood Gluc 9-16 every 14 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 of (FREESTYLE 00 Lot#: Medicin DEANA 2 [id number] e READER Exp: SYSTM) MONICA 12/08/2020 Continuous 2020-0 Yes [id number] 1{each} 1 Each Use [facility] Blood Gluc 9-16 as College Sensor 00:00: Directed. of (FREESTYLE 00 Lot:[id number] Med icin DEANA 2 6Exp:12/08 e SENSOR /2020 SYSTM) MIS Continuous 2020-0 Yes [id number] Use new [facility] Blood Gluc 9-16 sensor College Sensor 00:00: every 14 of (FREESTYLE 00 days back Medi praneeth DEANA 14 of the e DAY SENSOR) upper arm, MISC call if under 70 Continuous 2020-0 Yes [id number] Use reader [facility] Blood Gluc 9-16 to test Colleg e [employer] Supervisor 00:00: sugar of (FREESTYLE 00 before Medicin DEANA each meal, e READER) before MONICA sleep, as needed for lows or feeling shaky, sweaty, dizzy Continuous 2020-0 Yes [id number] 1{box} 1 Box [facility] Blood Gluc 9-16 every 14 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 of (FREESTYLE 00 Lot#: Medicin DEANA 2 [id number] e READER Exp: SYSTM) MONICA 12/08/2020 Continuous 2020-0 Yes [id number] 1{each} 1 Each Use [facility] Blood Gluc 9-16 as College Sensor 00:00: Directed. of (FREESTYLE 00 Lot:[id number] Med icin DEANA 2 6Exp:12/08 e SENSOR /2020 SYSTM) MISC Continuous 2020-0 Yes [id number] Use new [facility] Blood Gluc 9-16 sensor College Sensor 00:00: every 14 of (FREESTYLE 00 days back Medi praneeth DEANA 14 of the e DAY SENSOR) upper arm, MISC call if under 70 Continuous 2020-0 Yes [id number] Use reader [facility] Blood Gluc 9-16 to test Colleg e [employer] Supervisor 00:00: sugar of (FREESTYLE 00 before Medicin DEANA each meal, e READER) before MONICA sleep, as needed for lows or feeling shaky, sweaty, dizzy Continuous 2020-0 Yes [id number] 1{box} 1 Box [facility] Blood Gluc 9-16 every 14 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 of (FREESTYLE 00 Lot#: Medicin DEANA 2 [id number] e READER Exp: SYSTM) MONICA 12/08/2020 Continuous 2020-0 Yes [id number] 1{each} 1 Each Use [facility] Blood Gluc 9-16 as College Sensor 00:00: Directed. of (FREESTYLE 00 Lot:[id number] Med icin DEANA 2 6Exp:12/08 e SENSOR /2020 SYSTM) MIS Continuous 2020-0 Yes [id number] Use new [facility] Blood Gluc 9-16 sensor College Sensor 00:00: every 14 of (FREESTYLE 00 days back Medi praneeth DEANA 14 of the e DAY SENSOR) upper arm, MISC call if under 70 Continuous 2020-0 Yes [id number] Use reader [facility] Blood Gluc 9-16 to test Colleg e [employer] Supervisor 00:00: sugar of (FREESTYLE 00 before Medicin DEANA each meal, e READER) before MONICA sleep, as needed for lows or feeling shaky, sweaty, dizzy Continuous 2020-0 Yes [id number] 1{box} 1 Box [facility] Blood Gluc 9-16 every 14 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 of (FREESTYLE 00 Lot#: Medicin DEANA 2 [id number] e READER Exp: SYSTM) MONICA 12/08/2020 Continuous 2020-0 Yes [id number] 1{each} 1 Each Use [facility] Blood Gluc 9-16 as College Sensor 00:00: Directed. of (FREESTYLE 00 Lot:[id number] Med icin DEANA 2 6Exp:12/08 e SENSOR /2020 SYSTM) MIS Continuous 2020-0 Yes [id number] Use new [facility] Blood Gluc 9-16 sensor College Sensor 00:00: every 14 of (FREESTYLE 00 days back Medi praneeth DEANA 14 of the e DAY SENSOR) upper arm, [facility] call if under 70 Continuous 2019-0 Yes [id number] Use reader [facility] Blood Gluc 9-16 to test Colleg e [employer] Supervisor 00:00: sugar of (FREESTYLE 00 before Medicin DEANA each meal, e READER) before MONICA sleep, as needed for lows or feeling shaky, sweaty, dizzy Continuous 2019-0 Yes [id number] 1{box} 1 Box [facility] Blood Gluc 9-16 every 14 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 of (FREESTYLE 00 Lot#: Medicin DEANA 2 [id number] e READER Exp: SYSTM) MONICA 12/08/2020 Continuous 2020-0 Yes [id number] 1{each} 1 Each Use [facility] Blood Gluc 9-16 as College Sensor 00:00: Directed. of (FREESTYLE Lot:[id number] Med icin DEANA 2 6Exp:12/08 e SENSOR /2020 SYSTM) [facility] carvedilol 2020-0 Yes [id number] 6.25mg Take 6.25 Yon (COREG) 9-14 9105 mg by [place] 6.25 MG 21:36: mouth 2 of tablet 14 times Medicin daily e (with meals). atorvastati 2020-0 Yes 40mg Take 40 mg Yon n (LIPITOR) 9-14 by mouth Danny ege 40 MG 21:36: daily. of tablet 14 Medicin e ferrous 2020-0 Yes ferrous [facility] sulfate 325 9-14 sulfate Colle ge (65 Fe) MG 21:36: 325 mg (65 o f tablet 14 mg iron) Medicin tablet e Ascorbic 2020-0 Yes Take by Yon Acid 9-14 mouth. College (VITAMIN C 21:36: of OR) 14 Medicin e ascorbic 2020-0 Yes 500mg Take 500 [facility] acid 500 MG 9-14 mg by [place] tablet 21:24: mouth. of 50 Medicin e Ascorbic 2020-0 Yes 1 capsule [facility] Acid 9-14 College (VITAMIN C) 21:24: of 500 MG CAPS 50 Medicin e busPIRone 2020-0 Yes TAKE 1 Yon (BUSPAR) 10 9-14 TABLET BY Col lege MG tablet 21:24: MOUTH of 50 TWICE A Medicin DAY e NEEDED Emollient 2019-0 Yes Unknown [facility] (GOLD MARTINEZ 06-24 [facility] MEDICATED 21:24: of BODY) 50 Medicin 5-0.15 % e LOTN folic acid 2019-0 Yes 1 tablet [place] cruzito 800 MCG 06-24 [facility] TABS 21:24: of 50 Medicin e glimepiride 2020-0 Yes 1 tablet [facility] (AMARYL) 4 06-24 College MG tablet 21:24: of 50 Medicin e hyoscyamine 0 Yes 2 tablet [facility] (LEVSIN/SL) 06-24 as needed Col lege 0.125 MG SL 21:24: of tablet 50 Medicin e ibuprofen 0 Yes 1 tablet [facility] (ADVIL) 200 06-24 as needed [facility] mg tablet 21:24: of 50 Medicin e lisinopril 0 Yes TAKE 1 [facility] (PRINIVIL, 06-24 TABLET BY Danny DURAN) 5 21:24: MOUTH of MG tablet 50 EVERY DAY Medic in e metformin 0 Yes TAKE 2 [facility] (GLUCOPHAGE 06-24 TABLETS BY Co les ) 500 MG 21:24: MOUTH of tablet 50 TWICE A Medicin DAY WITH e MEALS Methylcobal 0 Yes Unknown [place] cruzito maier 06-24 [facility] [place] ([id number] 21:24: of ) 1 MG CHEW 50 Medicin e Pantoprazol 2020-0 Yes 1 packet [facility] e Sodium 06-24 [facility] (PROTONIX) 21:24: of 40 MG PACK 50 Medicin e polyethylen 2020-0 Yes EVERY DAY [facility] e glycol 06-24 College (GLYCOLAX) 21:24: DIRECTED of 17 GM/SCOOP 50 Medicin powder e pravastatin 2020-0 Yes 1 tablet [facility] (PRAVACHOL) 06-24 [facility] [place] 40 MG 21:24: of tablet 50 Medicin e Psyllium 2019-0 Yes 1 packet [facility] (METAMUCIL) 06-24 with 8 Colleg e WAFR 21:24: ounces of of 50 liquid as Medicin needed e rosuvastati 2020-0 Yes 1 tablet [facility] n (CRESTOR) 06-24 [facility] [place] 20 MG 21:24: of tablet 50 Medicin e thyroid 2020-0 Yes 1 tablet [facility] (ARMOUR 06-24 [facility] THYROID) 21:24: of 120 MG 50 Medicin tablet e venlafaxine 2020-0 Yes 2 tablets B [facility] (EFFEXOR) 06-24 [facility] 75 MG 21:24: of tablet 50 Medicin e triamcinolo 2020-0 Yes 1 [facility] ne 06-24 applicatio [facility] (KENALOG) 21:24: n to of 0.1 % 50 affected Medicin lotion area e warfarin 2019-0 Yes Unknown [facility] (COUMADIN) 06-24 [facility] 5 MG tablet 21:24: of 50 Medicin e Cholestyram 2020-0 Yes 1g Take 1 g [facility] ine 4 06-24 by mouth 2 College GM/DOSE 00:00: times of POWD 00 daily Medicin (before e meals). Cholestyram 2020-0 Yes 1g Take 1 g [facility] ine 4 - by mouth 2 College GM/DOSE 00:00: times of POWD 00 daily Medicin (before e meals). dicyclomine 2020-0 Yes [id number] TAKE 1 Yon (BENTYL) 10 9-10 CAPSULE BY Co llege MG capsule 00:00: MOUTH of 00 TWICE A Medicin DAY e dicyclomine 2020-0 Yes [id number] TAKE 1 [facility] (BENTYL) 10 9-10 CAPSULE BY Co llege MG capsule 00:00: MOUTH of 00 TWICE A Medicin DAY e escitalopra 2020-0 Yes [id number] 20mg Take 1 Tab [facility] m (LEXAPRO) 06-18 by mouth Danny ege 20 MG 00:00: daily. of tablet 00 Medicin e escitalopra 2020-0 Yes [id number] 20mg Take 1 Tab Yon m (LEXAPRO) 06-18 by mouth Danny ege 20 MG 00:00: daily. of tablet 00 Medicin e trazodone 2020-0 2020- No [id number] 100mg Take 2 [facility] (DESYREL) 06-18 10-09 Tabs by Colleg e 50 MG 00:00: 04:59 mouth of tablet 00 :00 nightly as Medicin needed for e Sleep for up to 30 days. trazodone 2020-0 2020- No [id number] 100mg Take 2 Yon (DESYREL) 9-08 10 Tabs by Colleg e 50 MG 00:00: 04:59 mouth of tablet 00 :00 nightly as Medicin needed for e Sleep for up to 30 days. rosuvastati 2020-0 Yes 1 tablet [facility] n (CRESTOR) 06-12 [place] 20 MG 18:59: of tablet 09 Medicin e thyroid 2020-0 Yes 1 tablet [facility] (ARMOUR 06-12 [place] THYROID) 18:59: of 120 MG 09 Medicin tablet e venlafaxine 2020-0 Yes 2 tablets [facility] (EFFEXOR) 06-12 [facility] [place] 75 MG 18:59: of tablet 09 Medicin e triamcinolo 2020-0 Yes 1 [facility] ne 06-12 applicatio [place] (KENALOG) 18:59: n to of 0.1 % 09 affected Medicin lotion area e warfarin 2020-0 Yes Unknown [facility] (COUMADIN) 06-12 [facility] 5 MG tablet 18:59: of 09 Medicin e ibuprofen 2020-0 Yes 1 tablet [facility] (ADVIL) 200 06-12 as needed Col [facility]ge mg tablet 18:59: of 08 Medicin e lisinopril 2020-0 Yes TAKE 1 [facility] (PRINIVIL, 06-12 TABLET BY Danny DURAN) 5 18:59: MOUTH of MG tablet 08 EVERY DAY Medic in e metformin 2020-0 Yes TAKE 2 [facility] (GLUCOPHAGE 06-12 TABLETS BY Will saldana ) 500 MG 18:59: MOUTH of tablet 08 TWICE A Medicin DAY WITH e MEALS Methylcobal 2020-0 Yes Unknown [place] cruzito maier 06-12 [facility] [place] ([id number] 18:59: of ) 1 MG CHEW 08 Medicin e Pantoprazol 2020-0 Yes 1 packet [facility] e Sodium 06-12 [facility] [place] (PROTONIX) 18:59: of 40 MG PACK 08 Medicin e polyethylen 2020-0 Yes EVERY DAY [facility] e glycol 06-12 [facility] (GLYCOLAX) 18:59: DIRECTED of 17 GM/SCOOP 08 Medicin powder e pravastatin 2020-0 Yes 1 tablet [facility] (PRAVACHOL) 06-12 [facility] 40 MG 18:59: of tablet 08 Medicin e Psyllium 2020-0 Yes 1 packet [facility] (METAMUCIL) 06-12 with 8 Colleg e WAFR 18:59: ounces of of 08 liquid as Medicin needed e Ascorbic 2020-0 Yes 1 capsule [facility] Acid 06-12 [facility] [place] (VITAMIN C) 18:59: of 500 MG CAPS Medicin e busPIRone 2020-0 Yes TAKE 1 Yon (BUSPAR) 10 06-12 TABLET BY Col [facility]ge MG tablet 18:59: MOUTH of 07 TWICE A Medicin DAY e NEEDED Emollient 2019-0 Yes Unknown [facility] (GOLD MARTINEZ 06-12 [facility] MEDICATED 18:59: of BODY) 07 Medicin 5-0.15 % e LOTN folic acid 2020-0 Yes 1 tablet [place] cruzito 800 MCG 06-12 [facility] TABS 18:59: of 07 Medicin e glimepiride 2020-0 Yes 1 tablet [facility] (AMARYL) 4 06-12 [facility] [place] MG tablet 18:59: of Medicin e hyoscyamine 2020-0 Yes 2 tablet [facility] (LEVSIN/SL) 06-12 as needed Col [facility]ge 0.125 MG SL 18:59: of tablet Medicin e ascorbic 2020-0 Yes 500mg Take 500 [facility] acid 500 MG 06-12 mg by [place] tablet 18:59: mouth. of Medicin e dicyclomine 2020-0 Yes [id number] 10mg Take 1 Cap [facility] (BENTYL) 10 8-28 by mouth Danny ege MG capsule 00:00: two times of 00 daily. Medicin e omeprazole 2020-0 Yes [id number] 40mg Take 1 Cap [facility] (PRILOSEC) 8-28 by mouth [facility] 40 MG 00:00: daily. of capsule 00 Medicin e omeprazole 2020-0 Yes [id number] 40mg Take 1 Cap [facility] (PRILOSEC) 8-28 by mouth Colle [facility] 40 MG 00:00: daily. of capsule 00 Medicin e omeprazole 2020-0 Yes [id number] 40mg Take 1 Cap [facility] (PRILOSEC) 8-28 by mouth Colle ge 40 MG 00:00: daily. of capsule 00 Medicin e omeprazole 2020-0 Yes [id number] 40mg Take 1 Cap [facility] (PRILOSEC) 8-28 by mouth Colle ge 40 MG 00:00: daily. of capsule 00 Medicin e omeprazole 2020-0 Yes [id number] 40mg Take 1 Cap [facility] (PRILOSEC) 8-28 by mouth Colle ge 40 MG 00:00: daily. of capsule 00 Medicin e omeprazole 2020-0 Yes [id number] 40mg Take 1 Cap [facility] (PRILOSEC) 8-28 by mouth Colle [facility] 40 MG 00:00: daily. of capsule 00 Medicin e omeprazole 2020-0 Yes [id number] 40mg Take 1 Cap [facility] (PRILOSEC) 8-28 by mouth Colle ge 40 MG 00:00: daily. of capsule 00 Medicin e omeprazole 2020-0 2020- No [id number] 40mg Take 1 [facility] (PRILOSEC) 8-28 12-22 by mouth Danny ege 40 MG 00:00: 00:00 daily. of capsule 00 :00 Medicin e escitalopra 2020-0 Yes 20mg Take 1 Tab [facility] m (LEXAPRO) 8-25 by mouth Danny ege [...] Center (two) times daily. ergocalcife 2020-0 Yes [id number] Take [facility] ers rol, 8-16 50,000 ity of vitamin d2, 22:28: Units by [place] (VITAMIN 28 mouth Medical D2) 1,250 weekly. On Bran ch mcg (50,000 Wednesday unit) capsule Levothyroxi 2019-0 Yes 125ug Take 125 U nivers ne 125 mcg 8-16 mcg by ity of capsule 22:28: mouth [place] [address] daily. Medical Branch spironolact 2020-0 Yes 50mg Take 50 mg Univers one 50 mg 8-16 by mouth ity of tablet 22:28: daily. [place] [address] Medical Branch furosemide 2019-0 Yes 20mg Take 20 mg U nivers 20 mg 8-16 by mouth ity of tablet 22:28: daily. [place] [address] Medical Branch atorvastati 2020-0 Yes 40mg Take 40 mg Univers n 40 mg 8-16 by mouth ity of tablet 22:28: daily. [place] [address] Medical Branch ascorbic 2020-0 Yes 500mg Take 500 Univ ers acid, 8-16 mg by ity of vitamin C, 22:28: mouth [place] (VITAMIN C) 28 daily. Medica l 500 mg Branch tablet omeprazole 2020-0 Yes 40mg Take 40 mg U nivers 40 mg 8-16 by mouth ity of capsule 22:28: daily. [place] [address] Medical Branch apixaban 2020-0 Yes 5mg Take 5 mg Univ ers (ELIQUIS) 8-16 by mouth 2 ity of 2.5 mg 22:28: (two) [place] tablet 28 times Medical daily. Branch escitalopra 2020-0 Yes 20mg Take 20 mg Univers m oxalate 8-16 by mouth ity of 20 mg 22:28: at [place] tablet 28 bedtime. Medical Branch ursodiol 2020-0 Yes 500mg Take 500 Univ ers 500 mg 8-16 mg by ity of tablet 22:28: mouth 2 [place] 28 (two) Medical times Branch daily. carvediloL 2020-0 Yes 6.25mg Take 6.25 Univers 6.25 mg 8-16 mg by ity of tablet 22:28: mouth 2 [place] 28 (two) Medical times Branch daily with [...] by mouth ity of 22:28: every 6 [place] [address] (six) Medical hours as Branch needed for Pain (scale 4-6). dicyclomine 2020-0 Yes 10mg Take 10 mg Univers 10 mg 8-16 by mouth 2 ity of capsule 22:28: (two) [place] 28 times Medical daily as Branch needed [...] hours as Branch needed. ergocalcife 2020-0 Yes [id number] Take Univ ers rol, 8-16 50,000 ity [...] by mouth ity of tablet 22:28: daily. [place] [address] Medical Branch furosemide 2020-0 Yes 20mg Take 20 mg U nivers 20 mg 8-16 by mouth ity of tablet 22:28: daily. [place] [address] Medical Branch atorvastati 2020-0 Yes 40mg Take 40 mg Univers n 40 mg 8-16 by mouth ity of tablet 22:28: daily. [place] [address] Medical Branch ascorbic 2020-0 Yes 500mg Take 500 Univ ers acid, 8-16 mg by ity of vitamin C, 22:28: mouth [place] (VITAMIN C) 28 daily. Medica l 500 mg Branch tablet omeprazole 2020-0 Yes 40mg Take 40 mg U nivers 40 mg 8-16 by mouth ity of capsule 22:28: daily. [place] [address] Medical Branch apixaban 2020-0 Yes 5mg Take [...] hours as Branch needed. ergocalcife 2020-0 Yes [id number] Take Univ ers rol, 8-16 50,000 ity of vitamin d2, 22:28: Units by [place] (VITAMIN 28 mouth Medical D2) 1,250 weekly. On Bran ch mcg (50,000 Wednesday unit) capsule Levothyroxi 2020-0 Yes 125ug Take 125 U nivers ne 125 mcg 8-16 mcg by ity of capsule 22:28: mouth [place] 28 daily. Medical Branch spironolact 2020-0 Yes 50mg Take 50 mg Univers one 50 mg 8-16 by mouth ity of tablet 22:28: daily. [place] [address] Medical Branch furosemide 2020-0 Yes 20mg Take 20 mg U nivers 20 mg 8-16 by mouth ity of tablet 22:28: daily. [place] [address] Medical Branch atorvastati 2020-0 Yes 40mg Take 40 mg Univers n 40 mg 8-16 by mouth ity of tablet 22:28: daily. [place] [address] Medical Branch ascorbic 2020-0 Yes 500mg Take 500 Univ ers acid, 8-16 mg by ity of vitamin C, 22:28: mouth [place] (VITAMIN C) 28 daily. Medica l 500 mg Branch tablet omeprazole 2020-0 Yes 40mg Take 40 mg U nivers 40 mg 8-16 by mouth ity of capsule 22:28: daily. [place] [address] Medical Branch apixaban 2020-0 Yes 5mg Take [...] by ity of tablet 22:28: mouth 2 [place] 28 (two) Medical times Branch daily. carvediloL 2020-0 Yes 6.25mg Take 6.25 Univers 6.25 mg 8-16 mg by ity of tablet 22:28: mouth 2 [place] 28 (two) Medical times Branch daily with meals. ferrous 2020-0 Yes 325mg Take 325 Unive rs sulfate 325 8-16 mg by ity of mg (65 mg 22:28: mouth 2 [place] iron) 28 (two) Medical tablet times Branch [...] hours as Branch needed. ergocalcife 2020-0 Yes [id number] Take Univ ers rol, 8-16 50,000 ity [...] by mouth ity of tablet 22:28: daily. [place] [address] Medical Branch furosemide 2020-0 Yes 20mg Take 20 mg U nivers 20 mg 8-16 by mouth ity of tablet 22:28: daily. [place] [address] Medical Branch atorvastati 2020-0 Yes 40mg Take 40 mg Univers n 40 mg 8-16 by mouth ity of tablet 22:28: daily. [place] [address] Medical Branch ascorbic 2020-0 Yes 500mg Take 500 Univ ers acid, 8-16 mg by ity of vitamin C, 22:28: mouth [place] (VITAMIN C) 28 daily. Medica l 500 mg Branch tablet omeprazole 2020-0 Yes 40mg Take 40 mg U nivers 40 mg 8-16 by mouth ity of capsule 22:28: daily. [place] 28 Medical Branch apixaban 2020-0 Yes 5mg [...] hours as Branch needed. ergocalcife 2020-0 Yes [id number] Take Univ ers rol, 8-16 50,000 ity [...] by mouth ity of tablet 17:28: daily. [place] [address] Medical Branch furosemide 2020-0 Yes 20mg Take 20 mg U nivers 20 mg 8-16 by mouth ity of tablet 17:28: daily. [place] [address] Medical Branch atorvastati 2020-0 Yes 40mg Take 40 mg Univers n 40 mg 8-16 by mouth ity of tablet 17:28: daily. [place] [address] Medical Branch ascorbic 2020-0 Yes 500mg Take 500 Univ ers acid, 8-16 mg by ity of vitamin C, 17:28: mouth [place] (VITAMIN C) 28 daily. Medica l 500 mg Branch tablet omeprazole 2020-0 Yes 40mg Take 40 mg U nivers 40 mg 8-16 by mouth ity of capsule 17:28: daily. [place] [address] Medical Branch apixaban 2020-0 Yes 5mg Take [...] by mouth ity of 17:28: every 6 [place] 28 (six) Medical hours [...] mouth ity of tablet 17:28: at bedtime [place] 28 as needed Medical [...] First dose [place] mg 00 on [facility] 05/26/20 at Branch 1030, Until Discontinu ed, Routine QUEtiapine 2020-0 Yes 50mg 50 mg, Unive rs (SEROQUEL) 8-16 Oral, QHS, ity of tablet 50 03:45: First dose [place] mg 00 on [facility] 05/25/20 at Branch 2245, Until Discontinu ed, [...] 00 CONTINUOUS Medic al , Starting Branch 05/25/20 at 1115, Until Discontinu ed, Routine ketorolac 2020-0 2020- No 15mg 15 mg, Unive rs (TORADOL) 05-25 08-15 Slow IV ity of injection 01:45: 22:59 Push, Q6H, [place] 15 mg 00 :00 4 doses, Medical First dose Branch (after last modificati on) on Wed05/24/20 at 2045, Last dose on 05/25/20 at 1200, Routine
biology faculty member approving Restricted medication : LUCAS DAVIS magnesium 2020-0 Yes 30mL 30 mL, Univer s hydroxide -14 Oral, ity of (MILK OF 15:00: DAILY, [place] MAGNESIA) 00 First dose Medi stephani 400 mg/5 mL (after Branch suspension last 30 mL modificati on) on Wed05/24/20 at 1000, Until Discontinu ed, Routine proMETHazin 2020-0 Yes 12.5mg 12.5 mg, Univers e 05-24 IV ity of (PHENERGAN) 14:42: [place], [place] 12.5 mg in 19 Q6HPRN, Medica l NaCl 0.9% Starting Branch (NS) 50 mL Fri IV 05/24/20 at piggyback 0942, Until Discontinu ed, Routine, Nausea and Vomiting (N/V) levothyroxi 2020-0 Yes 125ug 125 mcg, U nivers ne 8-14 Oral, ity of (SYNTHROID) 11:00: QAM-0600, [place] tablet 125 00 First dose Med ical mcg on Fri Branch 05/24/20 at 0600, Until Discontinu ed escitalopra 2020-0 Yes 20mg 20 mg, Univ ers m oxalate 05-24 Oral, QHS, ity of (LEXAPRO) 02:00: First dose [place] tablet 20 00 on [facility] Medical mg 05/23/20 at Branch 2100, Until Discontinu ed, Routine Sliding 2020-0 Yes Subcutaneo Univ ers Scale 8- us, TID ity of Insulin - 22:00: MEALS+HS, [place] Aspart 00 First dose Medical (NOVOLOG) + (after Branch Fsbg last Testing modificati on) on Dee 05/23/20 at 1700, Until Discontinu ed, Routine enoxaparin 2020-0 Yes 40mg 40 mg, Unive rs (LOVENOX) 05-23 Subcutaneo ity of injection 17:45: us, Q24H, [place] 40 mg 00 First dose Medical on Dee Branch 05/23/20 at 1245, Until Discontinu ed, Routine famotidine 2020-0 2020- No 20mg 20 mg, [facility] ers (PEPCID 05-2316 Slow IV ity of (PF)) 14:15: 15:22 Push, [place] injection 00 :53 Q12H, Medical 20 mg First dose Branch on Dee 05/23/20 at 0915, Until Discontinu ed, Routine proMETHazin 2020-0 2020- No 25mg 25 mg, IV Univers e 05-2314 Piggyback, ity of (PHENERGAN) 14:05: 14:42 Q6HPRN, [place] 25 mg in 13 :49 Starting Medical NaCl 0.9% [facility] Branch (NS) 50 mL 05/23/20 at IV 0905, piggyback Until 05/24/20 at 0942, Routine, Nausea and Vomiting (N/V) ondansetron 2020-0 Yes 4mg 4 mg, Slow Univers (ZOFRAN 05-23 IV Push, ity of (PF)) 13:25: Q6HPRN, [place] injection 4 49 Starting Medi stephani mg [facility] Branch 05/23/20 at 0825, Until Discontinu ed, Routine, Nausea and Vomiting (N/V) NaCl 0.9% 2020-0 2020- No 1000mL at 125 Uni vers (NS) IV 05-23 08-15 mL/hr, IV ity of infusion 10:15: 16:10 Infusion, [place] 1,000 mL 00 :06 CONTINUOUS Medic al , Starting Branch [facility] 05/23/20 at 0515, Until [place] 05/25/20 at 1110, Routine morpHINE 2020-0 Yes 2mg 2 mg, Slow Uni vers injection 2 05-23 IV Push, ity of mg 10:01: Q6HPRN, [place] 00 Starting Medical [facility] Branch 05/23/20 at 0501, Until Discontinu ed, Routine, Pain (scale 7-10) acetaminoph 2020-0 Yes 650mg 650 mg, Un armando en 05-23 Oral, ity of (TYLENOL) 09:59: Q6HPRN, [place] tablet 650 03 Starting Medic al mg [facility] 05/23/20 at 0459, Until Discontinu ed, Routine, [...] br>Duratio n of therapy: 72 hours morpHINE 2019-0 2020- No 4mg 4 mg, Slow Un armando injection 4 05-23 IV Push, ity of mg 07:00: 08:16 ONCE, 1 [place] 00 :00 dose, Dee Medical 05/23/20 at Branch 0200, STAT NaCl 0.9% 2020-0 2020- No 1000mL at 125 Uni vers (NS) IV 05-23 mL/hr, IV ity of infusion 07:00: 10:04 Infusion, [place] 1,000 mL 00 :05 CONTINUOUS Medic al , Starting Branch [facility] 05/23/20 at 0200, Until [facility] 05/23/20 at 0504, JEFERSON proMETHazin 2019-0 2020- No 12.5mg 12.5 mg, Univers e 05-23 IV ity of (PHENERGAN) 05:30: 04:53 Piggyback, [place] 12.5 mg in 00 :00 ONCE, 1 Medica l NaCl 0.9% dose, Dee Branc h (NS) 50 mL 05/23/20 at piggyback 0030, 50 mL iohexol 2019-0 2020- No 120mL 120 mL, Unive rs (OMNIPAQUE 05-23 Intravenou it y of 350 05:05: 05:05 s, ONCE, 1 [place] BULK-150 00 :00 dose, Dee Medica l mL) 05/23/20 at Branch injection 0015, 120 mL Routine NaCl 0.9% 0 2020- No 1000mL at 999 Uni vers (NS) bolus 05-23 mL/hr, ity of infusion 04:30: 04:53 1,000 mL, [place] 1,000 mL 00 :00 IV Medical Infusion, [place] ONCE, 1 dose, 05/22/20 at 2330, JEFERSON morpHINE 2019-0 2019- No 4mg 4 mg, Slow Un armando injection 4 05-23 IV Push, ity of mg 04:30: 04:54 ONCE, 1 [place] 00 :00 dose, Wed Medical 05/22/20 at Branch 2330, STAT famotidine 2020-0 Yes [id number] 40mg Take 1 Tab [facility] (PEPCID) 40 8-10 by mouth Danny ege MG tablet 00:00: daily. of 00 Medicin e Insulin 2020-0 Yes INJECT 40 [facility] Detemir 8-10 UNITS INTO Colleg e (LEVEMIR 00:00: THE SKIN of FLEXTOUCH) 00 TWO TIMES Medi praneeth 100 UNIT/ML DAILY e SOPN famotidine 2020-0 Yes [id number] 40mg Take 1 Tab Y[facility] (PEPCID) 40 8-10 by mouth Danny ege MG tablet 00:00: daily. of 00 Medicin e Insulin 2020-0 Yes INJECT 40 [facility] Detemir 8-10 UNITS INTO Colleg e (LEVEMIR 00:00: THE SKIN of FLEXTOUCH) 00 TWO TIMES Medi praneeth 100 UNIT/ML DAILY e SOPN famotidine 2020-0 Yes [id number] 40mg Take 1 Tab Y[facility] (PEPCID) 40 [...] praneeth 100 UNIT/ML DAILY e SOPN nystatin 2019-0 Yes Nystop Y[facility] (MYCOSTATIN 8-04 100,000 Colle ge ) powder 00:00: unit/gram of 00 topical Medicin powder e nystatin 2019-0 2020- No Nystop Y[facility] (MYCOSTATIN 8-04 09-14 100,000 Danny ege ) powder 00:00: 00:00 unit/gram of 00 :00 topical Medicin powder e Diclofenac 2020-[id number] 2 g [facility] Sodium 1 % 7-01 onto the Colle ge GEL 00:00: skin as of 00 needed. Medicin e Diclofenac 2020-[id number] 2 g Yon Sodium 1 % 7-01 onto the Colle ge GEL 00:00: skin as of 00 needed. Medicin e Diclofenac 2020-[id number] 2 g Yon Sodium 1 % 7-01 onto the Colle ge GEL 00:00: skin as of 00 needed. Medicin e Diclofenac 2020-[id number] 2 g Yon Sodium 1 % 7-01 onto the Colle ge GEL 00:00: skin as of 00 needed. Medicin e Diclofenac 2020-[id number] 2 g [facility] Sodium 1 % 7-01 onto the Colle ge GEL 00:00: skin as of 00 needed. Medicin e Diclofenac 2020-[id number] 2 g [facility] Sodium 1 % 7-01 onto the Colle ge GEL 00:00: skin as of 00 needed. Medicin e Diclofenac 2020-[id number] 2 g Yon Sodium 1 % 7-01 onto the Colle ge GEL 00:00: skin as of 00 needed. Medicin e Diclofenac 2020-[id number] 2 g [facility] Sodium 1 % 7-01 onto the Colle ge GEL 00:00: skin as of 00 needed. Medicin e Diclofenac 2020-[id number] 2 g [facility] Sodium 1 % 7-01 onto the Colle ge GEL 00:00: skin as of 00 needed. Medicin e Diclofenac 2020-[id number] 2 g [facility] Sodium 1 % 7-01 onto the Colle ge GEL 00:00: skin as of 00 needed. Medicin e Diclofenac 2020-[id number] 2 g Yon Sodium 1 % 7-01 onto the Colle ge GEL 00:00: skin as of 00 needed. Medicin e Diclofenac 2020-[id number] 2 g Yon Sodium 1 % 7-01 onto the Colle ge GEL 00:00: skin as of 00 needed. Medicin e Diclofenac 2020-[id number] 2 g Yon Sodium 1 % 7-01 onto the Colle ge GEL 00:00: skin as of 00 needed. Medicin e Diclofenac 2020-[id number] 2 g [facility] Sodium 1 % 7-01 onto the Colle ge GEL 00:00: skin as of 00 needed. Medicin e Diclofenac 2020-[id number] 2 g [facility] Sodium 1 % 7-01 onto the Colle ge GEL 00:00: skin as of 00 needed. Medicin e Diclofenac 2020-[id number] 2 g [facility] Sodium 1 % 7-01 onto the Colle ge GEL 00:00: skin as of 00 needed. Medicin e Diclofenac 2020-[id number] 2 g Yon Sodium 1 % 7-01 onto the Colle ge GEL 00:00: skin as of 00 needed. Medicin e Diclofenac 2020-[id number] 2 g [facility] Sodium 1 % 7-01 onto the Colle ge GEL 00:00: skin as of 00 needed. Medicin e Diclofenac 2020-[id number] 2 g Yon Sodium 1 % 7-01 onto the Colle ge GEL 00:00: skin as of 00 needed. Medicin e Diclofenac 2020-[id number] 2 g [facility] Sodium 1 % 7-01 onto the Colle ge GEL 00:00: skin as of 00 needed. Medicin e Diclofenac 2020-[id number] 2 g [facility] Sodium 1 % 7-01 onto the Colle ge GEL 00:00: skin as of 00 needed. Medicin e Diclofenac 2020-[id number] 2 g [facility] Sodium 1 % 7-01 onto the Colle ge GEL 00:00: skin as of 00 needed. Medicin e tramadol 2020-0 Yes TAKE 1 Yon (ULTRAM) 50 6-17 TABLET BY Col lege MG tablet 00:00: MOUTH of 00 EVERY 6 Medicin HOURS e NEEDED FOR PAIN amoxicillin 2019-0 Yes TAKE 1 [facility] (AMOXIL) 6-17 CAPSULE BY Colle ge 500 mg 00:00: MOUTH 3 of capsule 00 TIMES A Medicin DAY WITH e FOOD UNTIL FINISHED chlorhexidi 2020-0 Yes PLEASE SEE [facility] 6- [facility] ([facility]) 00:00: FOR of 0.12 % 00 DETAILED Medicin solution DIRECTIONS e tramadol 2020-0 Yes TAKE 1 Yon (ULTRAM) 50 6-17 TABLET BY Col lege MG tablet 00:00: MOUTH of 00 EVERY 6 Medicin HOURS e NEEDED FOR PAIN amoxicillin 2019-0 Yes TAKE 1 [facility] (AMOXIL) 6-17 CAPSULE BY Colle ge 500 mg 00:00: MOUTH 3 of capsule 00 TIMES A Medicin DAY WITH e FOOD UNTIL FINISHED chlorhexidi 2020-0 Yes PLEASE SEE [facility] 6- [facility] ([facility]) 00:00: FOR of 0.12 % 00 DETAILED Medicin solution DIRECTIONS e tramadol 2020-0 Yes TAKE 1 [facility] (ULTRAM) 50 6-17 TABLET BY [facility] MG tablet 00:00: MOUTH of 00 EVERY 6 Medicin HOURS e NEEDED FOR PAIN amoxicillin 2019-0 Yes TAKE 1 [facility] (AMOXIL) 6-17 CAPSULE BY [facility] 500 mg 00:00: MOUTH 3 of capsule 00 TIMES A Medicin DAY WITH e FOOD UNTIL FINISHED chlorhexidi 2020-0 Yes PLEASE SEE [facility] 6- [facility] ([facility]) 00:00: FOR of 0.12 % 00 DETAILED Medicin solution DIRECTIONS e tramadol 2020-0 Yes TAKE 1 [facility] (ULTRAM) 50 6-17 TABLET BY [facility] MG tablet 00:00: MOUTH of 00 EVERY 6 Medicin HOURS e NEEDED FOR PAIN tramadol 2020-0 Yes TAKE 1 [facility] (ULTRAM) 50 6-17 TABLET BY [facility] MG tablet 00:00: MOUTH of 00 EVERY 6 Medicin HOURS e NEEDED FOR PAIN tramadol 2020-0 Yes TAKE 1 [facility] (ULTRAM) 50 6-17 TABLET BY [facility] MG tablet 00:00: MOUTH of 00 EVERY 6 Medicin HOURS e NEEDED FOR PAIN tramadol 2020-0 Yes TAKE 1 [facility] (ULTRAM) 50 6-17 TABLET BY [facility] [...] PAIN amoxicillin 2019-0 2020- No TAKE 1 [facility] (AMOXIL) 03-27 CAPSULE BY [facility] 500 mg 00:00: 00:00 MOUTH 3 of capsule 00 :00 TIMES A Medicin DAY WITH e FOOD UNTIL FINISHED chlorhexidi 2019-0 2020- No PLEASE SEE [facility] 03-27 [facility] (PERIDEX) 00:00: 00:00 FOR of 0.12 % 00 :00 DETAILED Medicin solution DIRECTIONS e amoxicillin 2019-0 2020- No TAKE 1 [facility] (AMOXIL) 03-27 CAPSULE BY [facility] 500 mg 00:00: 00:00 MOUTH 3 of capsule 00 :00 TIMES A Medicin DAY WITH e FOOD UNTIL FINISHED chlorhexidi 2020-0 2020- No PLEASE SEE [facility] 03-27 [facility] (PERIDEX) 00:00: 00:00 FOR of 0.12 % 00 :00 DETAILED Medicin solution DIRECTIONS e ELIQUIS 2020-0 Yes [facility] (APIXABAN 6 [facility] TABS) TABS 00:00: ty 00 Health promethazin 2020-0 Yes [id number] 12.5mg Take 1 Tab Yon e 6-01 by mouth [facility] (PHENERGAN) 00:00: every 8 of 12.5 MG 00 hours as Medicin tablet needed for e Nausea. promethazin 2020-0 Yes [id number] 12.5mg Take 1 Tab Y[facility] e 6-01 by mouth [facility] (PHENERGAN) 00:00: every 8 of 12.5 MG 00 hours as Medicin tablet needed for e Nausea. promethazin 2019-0 2020- No [id number] 12.5mg Take 1 Tab [facility] e 03-11-14 by mouth [facility] (PHENERGAN) 00:00: 00:00 every 8 of 12.5 MG 00 :00 hours as Medicin tablet needed for e Nausea. ferrous 2020-0 Yes ferrous [facility] sulfate 325 5-20 sulfate [facility] (65 Fe) MG 14:00: 325 mg (65 o f tablet 45 mg iron) Medicin tablet e ondansetron 2020-0 Yes ondansetro [facility] (ZOFRAN) 4 5-20 n HCl 4 mg [facility] MG tablet 14:00: tablet of 45 Medicin e ferrous 2020-0 Yes ferrous [facility] sulfate 325 5-20 sulfate [facility] (65 Fe) MG 14:00: 325 mg (65 o f tablet 45 mg iron) Medicin tablet e ondansetron 2020-0 Yes ondansetro [facility] (ZOFRAN) 4 5-20 n HCl 4 mg [facility] MG tablet 14:00: tablet of 45 Medicin e ferrous 2020-0 Yes ferrous [facility] sulfate 325 5-20 sulfate [facility] (65 Fe) MG 14:00: 325 mg (65 o f tablet 45 mg iron) Medicin tablet e ondansetron 2020-0 Yes ondansetro [facility] (ZOFRAN) 4 5-20 n HCl 4 mg [facility] MG tablet 14:00: tablet of 45 Medicin e ondansetron 2020-0 Yes ondansetro [facility] (ZOFRAN) 4 5-20 n HCl 4 mg [facility] MG tablet 14:00: tablet of 45 Medicin e carvedilol 2020-0 Yes [id number] 6.25mg Take 6.25 [facility] (COREG) 5-20 9105 mg by [facility] 6.25 MG 13:59: mouth 2 of tablet 51 times Medicin daily e (with meals). atorvastati 2020-0 Yes 40mg Take 40 mg [facility] n (LIPITOR) 5-20 by mouth [facility] 40 MG 13:59: daily. of tablet 51 Medicin e Ascorbic 2020-0 Yes Take by [facility] Acid 5-20 mouth. [facility] (VITAMIN C 13:59: of OR) 51 Medicin e carvedilol 2020-0 Yes [id number] 6.25mg Take 6.25 [facility] (COREG) 5-20 9105 mg by [facility] 6.25 MG 13:59: mouth 2 of tablet 51 times Medicin daily e (with meals). atorvastati 2020-0 Yes 40mg Take 40 mg [facility] n (LIPITOR) 5-20 by mouth [facility] 40 MG 13:59: daily. of tablet 51 Medicin e Ascorbic 2020-0 Yes Take by [facility] Acid 5-20 mouth. [facility] (VITAMIN C 13:59: of OR) 51 Medicin e carvedilol 2020-0 Yes [id number] 6.25mg Take 6.25 [facility] (COREG) 5-20 9105 mg by [facility] 6.25 MG 13:59: mouth 2 of tablet 51 times Medicin daily e (with meals). atorvastati 2020-0 Yes 40mg Take 40 mg [facility] n (LIPITOR) 5-20 by mouth [facility] 40 MG 13:59: daily. of tablet 51 Medicin e Ascorbic 2020-0 Yes Take by [facility] Acid 5-20 mouth. [facility] (VITAMIN C 13:59: of OR) 51 Medicin e Apixaban 2020-0 Yes 2.5mg Take 2.5 [facility] 2.5 MG TABS 5-20 mg by [facility] 00:00: mouth two of 00 times Medicin daily. e Apixaban 2020-0 Yes 2.5mg Take 2.5 [facility] 2.5 MG TABS 5-20 mg by [facility] 00:00: mouth two of 00 times Medicin daily. e enoxaparin 2020-0 Yes [facility] 80 MG/0.8ML 5-20 [facility] injection 00:00: of 00 Medicin e Apixaban 2020-0 Yes 2.5mg Take 2.5 [facility] 2.5 MG TABS 5-20 mg by [facility] 00:00: mouth two of 00 times Medicin daily. e enoxaparin 2020-0 Yes [facility] 80 MG/0.8ML 5-20 [facility] injection 00:00: of 00 Medicin e Apixaban 2020-0 Yes 2.5mg Take 2.5 [facility] 2.5 MG TABS 5-20 mg by [facility] 00:00: mouth two of 00 times Medicin daily. e enoxaparin 2020-0 Yes [facility] 80 MG/0.8ML 5-20 [facility] injection 00:00: of 00 Medicin e Apixaban 2020-0 Yes 2.5mg Take 2.5 [facility] 2.5 MG TABS 5-20 mg by [facility] 00:00: mouth two of 00 times Medicin daily. e enoxaparin 2020-0 Yes [facility] 80 MG/0.8ML 5-20 [facility] injection 00:00: of 00 Medicin e Apixaban 2020-0 Yes 2.5mg [...] or 2.5 MG TABS 5-20 mg by [facility] 00:00: mouth two of 00 times Medicin daily. e Apixaban 2020-0 2020- No 2.5mg Take 2.5 [facility] 2.5 MG TABS 5-20 12-17 mg by [facility] 00:00: 00:00 mouth two of 00 :00 times Medicin daily. e enoxaparin 2020-0 2020- No [facility] 80 MG/0.8ML 5-20 11-18 [facility] injection 00:00: 00:00 of 00 :00 Medicin e enoxaparin 2020-0 2020- No [facility] 80 MG/0.8ML 5-20 11-18 [facility] injection 00:00: 00:00 of 00 :00 Medicin e escitalopra 2020-0 Yes 20mg Take 1 Tab [facility] m (LEXAPRO) 5-19 by mouth [facility] 20 MG 00:00: daily. of tablet 00 Medicin e trazodone 2020-0 Yes [id number] Take [facility] (DESYREL) 5-19 [id number] half-table [facility] 50 MG 00:00: t to full of tablet 00 tablet as Medicin needed for e insomnia or anxiety escitalopra 2020-0 Yes 20mg Take 1 Tab [facility] m (LEXAPRO) 5-19 by mouth [facility] 20 MG 00:00: daily. of tablet 00 Medicin e trazodone 2020-0 Yes [id number] Take [facility] (DESYREL) 5-19 [id number] half-table [facility] 50 MG 00:00: t to full of tablet 00 tablet as Medicin needed for e insomnia or anxiety trazodone 2020-0 Yes [id number] Take [facility] (DESYREL) 5-19 [id number] half-table [facility] 50 MG 00:00: t [...] No 40mg Take 1 Cap [facility] (PRILOSEC) 02-25-18 by mouth [facility] 40 MG 00:00: 04:59 daily for of capsule 00 :00 30 doses. Medicin e omeprazole 2020-0 2020- No 40mg Take 1 Cap [facility] (PRILOSEC) 5-18 -18 by mouth [facility] 40 MG 00:00: 04:59 daily for of capsule 00 :00 30 doses. Medicin e Ascorbic 2020-0 Yes Take by [facility] Acid 5-13 mouth. [facility] (VITAMIN C 19:18: of OR) 16 Medicin e ondansetron 2020-0 Yes ondansetro [facility] (ZOFRAN) 4 5-13 n HCl 4 mg [facility] MG tablet 19:18: tablet of 10 Medicin e ferrous 2020-0 Yes ferrous [facility] sulfate 325 5-13 sulfate [facility] (65 Fe) MG 19:18: 325 mg (65 o f tablet 04 mg iron) Medicin tablet e atorvastati 2020-0 Yes 40mg Take 40 mg [facility] n (LIPITOR) 5-13 by mouth [facility] 40 MG 19:18: daily. of tablet 03 Medicin e carvedilol 2020-0 Yes [id number] 6.25mg Take 6.25 [facility] (COREG) 5-13 9105 mg by [facility] 6.25 MG 19:18: mouth 2 of tablet 02 times Medicin daily e (with meals). carvedilol 2020-0 Yes [id number] 6.25mg Take 6.25 [facility] (COREG) 5-13 9105 mg by [facility] 6.25 MG 16:02: mouth 2 of tablet 53 times Medicin daily e (with meals). atorvastati 2020-0 Yes 40mg Take 40 mg [facility] n (LIPITOR) 5-13 by mouth [facility] 40 MG 16:02: daily. of tablet 53 Medicin e ferrous 2020-0 Yes ferrous [facility] sulfate 325 5-13 sulfate [facility] (65 Fe) MG 16:02: 325 mg (65 o f tablet 53 mg iron) Medicin tablet e ondansetron 2020-0 Yes ondansetro [facility] (ZOFRAN) 4 5-13 n HCl 4 mg [facility] MG tablet 16:02: tablet of 53 Medicin e Ascorbic 2020-0 Yes Take by [facility] Acid 5-13 mouth. [facility] (VITAMIN C 16:02: of OR) 53 Medicin [...] of 00 Medicin e dicyclomine 2020-0 Yes [facility] (BENTYL) 10 5-10 [facility] MG capsule 00:00: of 00 Medicin e dicyclomine 2020-0 Yes [facility] (BENTYL) 10 5-10 [facility] MG capsule 00:00: of 00 Medicin e dicyclomine 2020-0 Yes [facility] (BENTYL) 10 5-10 [facility] MG capsule 00:00: of 00 Medicin e XIFAXAN 550 2019-0 Yes [facility] MG TABS 5-10 [facility] 00:00: of 00 Medicin e carvedilol 2020-0 Yes [id number] 6.25mg Take 6.25 [facility] (COREG) 5-05 9105 mg by [facility] 6.25 MG 16:48: mouth 2 of tablet 30 times Medicin daily e (with meals). atorvastati 2019-0 Yes 40mg Take 40 mg [facility] n (LIPITOR) 5-05 by mouth [facility] 40 MG 16:48: daily. of tablet 30 Medicin e ferrous 2019-0 Yes ferrous [facility] sulfate 325 5-05 sulfate [facility] ge (65 Fe) MG 16:48: 325 mg (65 o f tablet 30 mg iron) Medicin tablet e ondansetron 2019-0 Yes ondansetro [facility] (ZOFRAN) 4 5-05 n HCl 4 mg [facility] MG tablet 16:48: tablet of 30 Medicin e Ascorbic 2019-0 Yes Take by [facility] Acid 5-05 mouth. [facility] (VITAMIN C 16:48: of OR) 30 Medicin e sucralfate 0 2020- No sucralfate [facility] (CARAFATE) 02-12 05-05 1 gram Colleg e 1 g tablet 16:47: 00:00 tablet of 48 :00 Medicin e nystatin 2020- No Nystop [facility] (NYSTOP) 02-12 05-05 100,000 [facility] powder 16:47: 00:00 unit/gram of 45 :00 topical Medicin powder e triamcinolo 2019-0 2020- No [id number] [facility] ne 02-12 05-06 [facility] acetonide 16:30: 04:29 of (KENALOG-40 00 :00 Medicin ) 40 mg/mL e 40 mg, lidocaine 1% (10 mg/mL) 2 mL promethazin 2019-0 Yes [id number] 12.5mg Take 1 Tab [facility] e 4-30 by mouth [facility] (PHENERGAN) 00:00: every 6 of 12.5 MG 00 hours as Medicin tablet needed for e Nausea. promethazin 2019-0 Yes [id number] 12.5mg Take 1 Tab [facility] e 4-30 by mouth [facility] (PHENERGAN) 00:00: every 6 of 12.5 MG 00 hours as Medicin tablet needed for e Nausea. promethazin 2019-0 Yes [id number] 12.5mg Take 1 Tab [facility] e 4-30 by mouth [facility] (PHENERGAN) 00:00: every 6 of 12.5 MG 00 hours as Medicin tablet needed for e Nausea. promethazin 2019-0 Yes [id number] 12.5mg Take 1 Tab [facility] e 4-30 by mouth [facility] (PHENERGAN) 00:00: every 6 of 12.5 MG [...] Center mouth 2 (two) times daily. ondansetron Yes [id number] 4mg Take 1 Tab [facility] (ZOFRAN-ODT 4-14 by mouth [facility] ) 4 mg 00:00: every 8 of disintegrat 00 hours as Medi praneeth ing tablet needed for e Nausea. ondansetron Yes [id number] 4mg Take 1 Tab [facility] (ZOFRAN-ODT 4-14 by mouth [facility] ) 4 mg 00:00: every 8 of disintegrat 00 hours as Medi praneeth ing tablet needed for e Nausea. ondansetron 2020-0 Yes [id number] 4mg Take 1 Tab [facility] (ZOFRAN-ODT 4-14 by mouth [facility] ) 4 mg 00:00: every 8 of disintegrat 00 hours as Medi praneeth ing tablet needed for e Nausea. ondansetron 2020-0 Yes [id number] 4mg Take 1 Tab [facility] (ZOFRAN-ODT 4-14 by mouth [facility] ) 4 mg 00:00: every 8 of disintegrat 00 hours as Medi praneeth ing tablet needed for e Nausea. ondansetron 2020-0 Yes [id number] 4mg Take 1 Tab [facility] (ZOFRAN-ODT 4-14 by mouth [facility] ) 4 mg 00:00: every 8 of disintegrat 00 hours as Medi praneeth ing tablet needed for e Nausea. ondansetron 2020-0 Yes [id number] 4mg Take 1 Tab [facility] (ZOFRAN-ODT 4-14 by mouth [facility] ) 4 mg 00:00: every 8 of disintegrat 00 hours as Medi praneeth ing tablet needed for e Nausea. ondansetron 2020-0 2020- No [id number] 4mg Take 1 Tab [facility] (ZOFRAN-ODT 4-14 09-14 by mouth [facility] ) 4 mg 00:00: 00:00 every 8 of disintegrat 00 :00 hours as Medi praneeth ing tablet needed for e Nausea. PILOCARPINE 2020-0 Yes [facility] HCL, ORAL, 4- College 5 MG TABS 00:00: of 00 Medicin e PILOCARPINE 2020-0 Yes [facility] HCL, ORAL, 4-01 [facility] 5 MG TABS 00:00: of 00 Medicin e PILOCARPINE 2020-0 Yes [facility] HCL, ORAL, 4-01 [facility] 5 MG TABS 00:00: of 00 Medicin e PILOCARPINE 2020-0 Yes [facility] HCL, ORAL, 4-01 [facility] 5 MG TABS 00:00: of 00 Medicin e PILOCARPINE 2020-0 Yes [facility] HCL, ORAL, 4-01 [facility] 5 MG TABS 00:00: of 00 Medicin e PILOCARPINE 2020-0 Yes [facility] HCL, ORAL, 4- [facility] 5 MG TABS 00:00: of 00 Medicin e PILOCARPINE 2020-0 2020- No [facility] HCL, ORAL, 01-09 [facility] 5 MG TABS 00:00: 00:00 of 00 :00 Medicin e PILOCARPINE 2020-0 2020- No [facility] HCL, ORAL, 01-09 [facility] 5 MG TABS 00:00: 00:00 of 00 :00 Medicin e tramadol 2020-0 Yes TAKE 1 [facility] (ULTRAM) 50 3-30 TABLET BY [facility] MG tablet 00:00: MOUTH of 00 EVERY 6 Medicin HOURS e NEEDED FOR PAIN tramadol 2019-0 Yes TAKE 1 [facility] (ULTRAM) 50 3-30 TABLET BY [facility] MG tablet 00:00: MOUTH of 00 EVERY 6 Medicin HOURS e NEEDED FOR PAIN tramadol 2019-0 Yes TAKE 1 [facility] (ULTRAM) 50 3-30 TABLET BY [facility] MG tablet 00:00: MOUTH of 00 EVERY 6 Medicin HOURS e NEEDED FOR PAIN tramadol 2019-0 Yes TAKE 1 [facility] (ULTRAM) 50 3-30 TABLET BY [facility] MG tablet 00:00: MOUTH of 00 EVERY 6 Medicin HOURS e NEEDED FOR PAIN tramadol 2019-0 Yes TAKE 1 [facility] (ULTRAM) 50 3-30 TABLET BY [facility] MG tablet 00:00: MOUTH of 00 EVERY 6 Medicin HOURS e NEEDED FOR PAIN trazodone 2020-0 Yes [id number] Take [facility] (DESYREL) 3-27 [id number] half-table [facility] 50 MG 00:00: t to full of tablet 00 tablet as Medicin needed for e insomnia or anxiety trazodone 2020-0 Yes [id number] Take [facility] (DESYREL) 3-27 [id number] half-table [facility] 50 MG 00:00: t to full of tablet 00 tablet as Medicin needed for e insomnia or anxiety trazodone 2020-0 Yes [id number] Take [facility] (DESYREL) 3-27 [id number] half-table [facility] 50 MG 00:00: t to full of tablet 00 tablet as Medicin needed for e insomnia or anxiety pantoprazol 2019-0 Yes [facility] e 3-25 [facility] (PROTONIX) 00:00: of 40 MG 00 Medicin tablet e Insulin 2020-0 2020- No 40U Inject 40 [facility] Detemir 3-18 06-17 Units into [facility] (LEVEMIR 00:00: 04:59 the skin of FLEXTOUCH) 00 :00 two times Medi praneeth 100 UNIT/ML daily for e SOPN 90 days. Insulin 2020-0 2020- No 40U Inject 40 [facility] Detemir 3-18 06-17 Units into [facility] (LEVEMIR 00:00: 04:59 the skin of FLEXTOUCH) 00 :00 two times Medi praneeth 100 UNIT/ML daily for e SOPN 90 days. Insulin 2020-0 2020- No 40U Inject 40 [facility] Detemir 3-18 06-17 Units into [facility] (LEVEMIR 00:00: 04:59 the skin of FLEXTOUCH) 00 :00 two times Medi praneeth 100 UNIT/ML daily for e SOPN 90 days. Insulin 2020-0 2020- No 40U Inject 40 [facility] Detemir 3-18 06-17 Units into [facility] (LEVEMIR 00:00: 04:59 the skin of FLEXTOUCH) 00 :00 two times Medi praneeth 100 UNIT/ML daily for e SOPN 90 days. Insulin 2020-0 2020- No 40U Inject 40 [facility] Detemir 3-18 06-17 Units into [facility] (LEVEMIR 00:00: 04:59 the skin of FLEXTOUCH) 00 :00 two times Medi praneeth 100 UNIT/ML daily for e SOPN 90 days. Insulin Pen 2020-0 Yes Use with [facility] Needle 3-17 insulin 5x [facility] (LITETOUCH 00:00: daily; Dx of PEN 00 E11.65; Medicin NEEDLES) Please e 32G X 4 MM make sushant MISC with Dr. Mccain Insulin Pen 2020-0 Yes Use with [facility] Needle 3-17 insulin 5x [facility] (LITETOUCH 00:00: daily; Dx of PEN 00 E11.65; Medicin NEEDLES) Please e 32G X 4 MM make sushant MISC with Dr. Mccain Insulin Pen 2020-0 Yes Use with [facility] Needle 3-17 insulin 5x [facility] (LITETOUCH 00:00: daily; Dx of PEN 00 E11.65; Medicin NEEDLES) Please e 32G X 4 MM make sushant MISC with Dr. Mccain Insulin Pen 2020-0 Yes Use with [facility] Needle 3-17 insulin 5x [facility] (LITETOUCH 00:00: daily; Dx of PEN 00 E11.65; Medicin NEEDLES) Please e 32G X 4 MM make sushant MISC with Dr. Mccain Insulin Pen 2020-0 Yes Use with [facility] Needle 3-17 insulin 5x [facility] (LITETOUCH 00:00: daily; Dx of PEN 00 E11.65; Medicin NEEDLES) Please e 32G X 4 MM make sushant MISC with Dr. Mccain Insulin Pen 2020-0 Yes Use with [facility] Needle 3-17 insulin 5x [facility] (LITETOUCH 00:00: daily; Dx of PEN 00 E11.65; Medicin NEEDLES) Please e 32G X 4 MM make sushant MISC with Dr. Mccain Insulin Pen 2020-0 2020- No Use with [facility] Needle 3-17 09-14 insulin 5x [facility] e (LITETOUCH 00:00: 00:00 daily; Dx o f PEN 00 :00 E11.65; Medicin NEEDLES) Please e 32G X 4 MM make sushant MISC with Dr. Mccain nystatin 2020-0 Yes Nystop [facility] (MYCOSTATIN 2-19 100,000 [facility] ) powder 00:00: unit/gram of 00 topical Medicin powder e sucralfate 2020-0 Yes sucralfate [facility] (CARAFATE) 2-19 1 gram [facility] 1 g tablet 00:00: tablet of 00 [...] sucralfate [facility] (CARAFATE) 2-19 1 gram [facility] 1 g tablet 00:00: tablet of 00 Medicin e sucralfate 2020-0 Yes sucralfate [facility] (CARAFATE) 2-19 1 gram [facility] 1 g tablet 00:00: tablet of 00 Medicin e sucralfate 2020-0 2020- No sucralfate [facility] (CARAFATE) 2-19 12-17 1 gram [facility] e 1 g tablet 00:00: 00:00 tablet of 00 :00 Medicin e Ascorbic 2020-0 Yes Take by [facility] Acid 2-18 mouth. [facility] (VITAMIN C 15:30: of OR) 41 Medicin e Ascorbic 2020-0 Yes Take by [facility] Acid 2-18 mouth. [facility] (VITAMIN C 15:30: of OR) 41 Medicin e carvedilol 2020-0 Yes [id number] 6.25mg Take 6.25 [facility] (COREG) 2-18 9105 mg by [facility] 6.25 MG 15:29: mouth 2 of tablet 19 times Medicin daily e (with meals). atorvastati 2020-0 Yes 40mg Take 40 mg [facility] n (LIPITOR) 2-18 by mouth [facility] 40 MG 15:29: daily. of tablet 19 Medicin e ferrous 2020-0 Yes ferrous [facility] sulfate 325 2-18 sulfate [facility] (65 Fe) MG 15:29: 325 mg (65 o f tablet 19 mg iron) Medicin tablet e ondansetron 2020-0 Yes ondansetro [facility] (ZOFRAN) 4 2-18 n HCl 4 mg [facility] MG tablet 15:29: tablet of 19 Medicin e carvedilol 2020-0 Yes [id number] 6.25mg Take 6.25 [facility] (COREG) 2-18 9105 mg by [facility] 6.25 MG 15:29: mouth 2 of tablet 19 times Medicin daily e (with meals). atorvastati 2020-0 Yes 40mg Take 40 mg [facility] n (LIPITOR) 2-18 by mouth [facility] 40 MG 15:29: daily. of tablet 19 Medicin e ferrous 2020-0 Yes ferrous [facility] sulfate 325 2-18 sulfate [facility] (65 Fe) MG 15:29: 325 mg (65 o f tablet 19 mg iron) Medicin tablet e ondansetron 2020-0 Yes ondansetro [facility] (ZOFRAN) 4 2-18 n HCl 4 mg [facility] MG tablet 15:29: tablet of 19 Medicin e Diclofenac 2019- Yes Place onto [facility] Sodium 1 % 218 the skin. [facility] GEL 00:00: of 00 Medicin e Diclofenac 2019-2019- No [id number] 1% Place 1 [facility] Sodium 1 % 2-18 03-20 Percent [facility] GEL 00:00: 04:59 onto the of 00 :00 skin 2 Medicin times e daily as needed for up to 30 days. Diclofenac 2019- No [id number] 1% Place 1 [facility] Sodium 1 % 2-18 03-20 Percent [facility] GEL 00:00: 04:59 onto the of 00 :00 skin 2 Medicin times e daily as needed for up to 30 days. rifAXIMin 2019- No Hepatic 550mg Q.5D Take [...] Center mouth 2 (two) times daily. hyoscyamine 2019- No hyoscyamin [facility] (LEVBID) 11-14 e ER 0.375 [facility] 0.375 MG CR 20:14: 00:00 mg of tablet 15 :00 tablet,ext Medicin ended e release,12 hr hyoscyamine 2019- No hyoscyamin [facility] (LEVBID) 11-14 e ER 0.375 [facility] 0.375 MG CR 20:14: 00:00 mg of tablet 15 :00 tablet,ext Medicin ended e release,12 hr hyoscyamine 2019- No hyoscyamin [facility] (LEVBID) 11-14 e ER 0.375 [facility] 0.375 MG CR 20:14: 00:00 mg of tablet 15 :00 tablet,ext Medicin ended e release,12 hr carvedilol 2019- Yes [id number] 6.25mg Take 6.25 [facility] (COREG) 2-04 9105 mg by [facility] 6.25 MG 19:04: mouth 2 of tablet 06 times Medicin daily e (with meals). ONDANSETRON 2020-0 Yes 4mg Take 4 mg [facility] OR 2-04 by mouth. [facility] 19:04: of 06 Medicin e atorvastati 2020-0 Yes 40mg Take 40 mg [facility] n (LIPITOR) 2-04 by mouth [facility] 40 MG 19:04: daily. of tablet 06 Medicin e ferrous 2020-0 Yes ferrous [facility] sulfate 325 2-04 sulfate [facility] (65 Fe) MG 19:04: 325 mg (65 o f tablet 06 mg iron) Medicin tablet e hyoscyamine 2020-0 Yes hyoscyamin [facility] (LEVBID) 2-04 e ER 0.375 [facility] 0.375 MG CR 19:04: mg of tablet 06 tablet,ext Medicin ended e release,12 hr nystatin 2020-0 Yes Nystop [facility] (NYSTOP) 2-04 100,000 [facility] powder 19:04: unit/gram of 06 topical Medicin powder e ondansetron 2020-0 Yes ondansetro [facility] (ZOFRAN) 4 2-04 n HCl 4 mg [facility] MG tablet 19:04: tablet of 06 Medicin e sucralfate 2020-0 Yes sucralfate [facility] (CARAFATE) 2-04 1 gram [facility] 1 g tablet 19:04: tablet of 06 Medicin e carvedilol 2020-0 Yes [id number] 6.25mg Take 6.25 [facility] (COREG) 2-04 9105 mg by [facility] 6.25 MG 19:04: mouth 2 of tablet 06 times Medicin daily e (with meals). ONDANSETRON 2020-0 Yes 4mg Take 4 mg [facility] OR 2-04 by mouth. [facility] 19:04: of 06 Medicin e atorvastati 2020-0 Yes 40mg Take 40 mg [facility] n (LIPITOR) 2-04 by mouth [facility] 40 MG 19:04: daily. of tablet 06 Medicin e ferrous 2020-0 Yes ferrous [facility] sulfate 325 2-04 sulfate [facility] (65 Fe) MG 19:04: 325 mg (65 o f tablet 06 mg iron) Medicin tablet e nystatin 2020-0 Yes Nystop [facility] (NYSTOP) 2-04 100,000 [facility] powder 19:04: unit/gram of 06 topical Medicin powder e ondansetron 2020-0 Yes ondansetro [facility] (ZOFRAN) 4 2-04 n HCl 4 mg [facility] MG tablet 19:04: tablet of 06 Medicin e sucralfate 2020-0 Yes sucralfate [facility] (CARAFATE) 2-04 1 gram [facility] 1 g tablet 19:04: tablet of 06 Medicin e carvedilol 2020-0 Yes [id number] 6.25mg Take 6.25 [facility] (COREG) 2-04 9105 mg by [facility] 6.25 MG 19:04: mouth 2 of tablet 06 times Medicin daily e (with meals). ONDANSETRON 2020-0 Yes 4mg Take 4 mg [facility] OR 2-04 by mouth. [facility] 19:04: of 06 Medicin e atorvastati 2020-0 Yes 40mg Take 40 mg [facility] n (LIPITOR) 2-04 by mouth [facility] 40 MG 19:04: daily. of tablet 06 Medicin e ferrous 2020-0 Yes ferrous [facility] sulfate 325 2-04 sulfate [facility] (65 Fe) MG 19:04: 325 mg (65 o f tablet 06 mg iron) Medicin tablet e nystatin 2020-0 Yes Nystop [facility] (NYSTOP) 2-04 100,000 [facility] powder 19:04: unit/gram of 06 topical Medicin powder e ondansetron 2020-0 Yes ondansetro [facility] (ZOFRAN) 4 2-04 n HCl 4 mg Col lege MG tablet 19:04: tablet of 06 Medicin e sucralfate 2020-0 Yes sucralfate [facility] (CARAFATE) 2-04 1 gram [facility] 1 g tablet 19:04: tablet of 06 Medicin e ONDANSETRON 2020-0 Yes 4mg Take 4 mg [facility] OR 2-04 by mouth. College 19:04: of 06 Medicin e nystatin 2020-0 Yes Nystop Yon (NYSTOP) 2-04 100,000 [employer] powder 19:04: unit/gram of 06 topical Medicin powder e sucralfate 2020-0 Yes sucralfate [facility] (CARAFATE) -04 1 gram [facility] 1 g tablet 19:04: tablet of Medicin e ONDANSETRON 2019-0 Yes 4mg Take 4 mg [facility] [place] 2-04 by mouth. College 19:04: of 06 Medicin e nystatin 2019-0 Yes Nystop [facility] (NYSTOP) 11-14 100,000 College powder 19:04: unit/gram of 06 topical Medicin powder e sucralfate 2019- Yes sucralfate [facility] (CARAFATE) 04 1 gram [place] 1 g tablet 19:04: tablet of 06 Medicin e trazodone 2020- No [id number] 50mg Take 50 mg [facility] (DESYREL) 11-14- [id number] by mouth [facility] 50 MG 16:05: 00:00 nightly as of tablet 03 :00 needed. Medicin e trazodone 2019- 2020- No [id number] 50mg Take 50 mg [facility] (DESYREL) 11-14- [id number] by mouth [facility] 50 MG 16:05: 00:00 nightly as of tablet 03 :00 needed. Medicin e pioglitazon 2019- 2020- No pioglitazo [facility] (ACTOS) 11-14-04 ne 30 mg [facility] 30 MG 15:34: 00:00 tablet of tablet 41 :00 Medicin e pioglitazon 2019-0 2020- No pioglitazo [facility] (ACTOS) 11-14-04 ne 30 mg [facility] 30 MG 15:34: 00:00 tablet of tablet 41 :00 Medicin e Exenatide 2019- No [place] [facility] (BYETTA 10 11-14 02-04 mcg/dose(2 Co llege MCG PEN) 10 15:34: 00:00 50 of MCG/0.04ML 23 :00 mcg/mL)2.4 Med icin SOPN mL e subcutaneo us pen injector Exenatide 2020- No [place] [facility] (BYETTA 10 - 02-04 mcg/dose(2 Co llege MCG PEN) 10 15:34: 00:00 50 of MCG/0.04ML 23 :00 mcg/mL)2.4 Med icin SOPN mL e subcutaneo us pen injector benzonatate 2019-0 2020- No benzonatat [facility] (TESSALON) 2-01 10-04 e 200 mg [facility] 200 mg 15:34: 00:00 capsule of capsule 17 :00 Medicin e benzonatate 2019-0 2020- No benzonatat [facility] (TESSALON) 2-01 10-04 e 200 mg [facility] 200 mg 15:34: 00:00 capsule of capsule 17 :00 Medicin e ascorbic 2019-0 2020- No 500mg Take 500 [place] [facility] acid 500 MG 11-14- mg by [facility] e tablet 15:34: 00:00 mouth of 10 :00 daily. Medicin e ascorbic 2019-0 2020- No 500mg Take 500 [place] [facility] acid 500 MG -01 10-04 mg by Colleg e tablet 15:34: 00:00 mouth of 10 :00 daily. Medicin e albuterol 2019-0 2020- No [facility] HFA [facility] (PROAIR 11-[address] [place] [address]) 108 15:34: 00:00 mcg/actuat of (90 base) 04 :00 ion Medicin mcg/act aerosol e inhaler inhaler albuterol 2019-0 2020- No [facility] HFA [facility] (PROAIR 11-[address] [place], [place] [address]A) 108 15:34: 00:00 mcg/actuat of (90 base) 04 :00 ion Medicin mcg/act aerosol e inhaler inhaler escitalopra 2020-0 Yes 20mg Take 1 Tab [facility] m (LEXAPRO) 2-04 by mouth [facility] 20 MG 00:00: daily. of tablet 00 Medicin e trazodone 2020-0 Yes [id number] Take [facility] (DESYREL) 2- [id number] half-table [facility] 50 MG 00:00: t to full of tablet 00 tablet as Medicin needed for e insomnia. escitalopra 2020-0 Yes 20mg Take 1 Tab [facility] (LEXAPRO) 2-04 by mouth [facility] 20 MG 00:00: daily. of tablet 00 Medicin e trazodone 2020-0 Yes [id number] Take [facility] (DESYREL) 2- [id number] half-table [facility] 50 MG 00:00: t to full of tablet 00 tablet as Medicin needed for e insomnia. escitalopra 2020-0 Yes 20mg Take 1 Tab [facility] m (LEXAPRO) 2-04 by mouth [facility] 20 MG 00:00: daily. of tablet 00 Medicin e trazodone 2020-0 Yes [id number] Take [facility] (DESYREL) 2-04 [id number] half-table [facility] 50 MG 00:00: t to full of tablet 00 tablet as Medicin needed for e insomnia. escitalopra 2020-0 Yes 20mg Take 1 Tab [facility] (LEXAPRO) 2-04 by mouth [facility] 20 MG 00:00: daily. of tablet 00 Medicin e trazodone 2020-0 Yes [id number] Take [facility] (DESYREL) 2-04 [id number] half-table [facility] 50 MG 00:00: t to full of tablet 00 tablet as Medicin needed for e insomnia. escitalopra 2020-0 Yes 20mg Take 1 Tab [facility] m (LEXAPRO) 2-04 by mouth [facility] 20 MG 00:00: daily. of tablet 00 Medicin e trazodone 2020-0 Yes [id number] Take [facility] (DESYREL) 2-04 [id number] half-table [facility] 50 MG 00:00: t [...] 2020-0 2020- No 20mg Take 1 Tab [facility] (PEPCID) 20 2-04 05-05 by mouth [facility] MG tablet 00:00: 04:59 daily for of 00 :00 90 days. Medicin e dicyclomine 2020-0 2020- No 10mg Take 1 Cap [facility] (BENTYL) 10 2-04 05-05 by mouth 2 C ollege MG capsule 00:00: 04:59 times of 00 :00 daily as Medicin needed e (abdominal pain/cramp ing) for up to 90 days. famotidine 2019- 2020- No 20mg Take 1 Tab [facility] (PEPCID) 20 2-04 05-05 by mouth [facility] MG tablet 00:00: 04:59 daily for of 00 :00 90 days. Medicin e dicyclomine 2019- 2020- No 10mg Take 1 Cap [facility] (BENTYL) 10 2-04 05-05 by mouth 2 C [facility] MG capsule 00:00: 04:59 times of 00 :00 daily as Medicin needed e (abdominal pain/cramp ing) for up to 90 days. famotidine 2019-2019- No 20mg Take 1 Tab [facility] (PEPCID) 20 2- 05-05 by mouth [facility] MG tablet 00:00: 04:59 daily for of 00 :00 90 days. Medicin e dicyclomine 2019- 2020- No 10mg Take 1 Cap [facility] (BENTYL) 10 2- 05-05 by mouth 2 C [facility]lege MG capsule 00:00: 04:59 times of 00 :00 daily as Medicin needed e (abdominal pain/cramp ing) for up to 90 days. famotidine 2019- 2020- No 20mg Take 1 Tab [facility] (PEPCID) 20 2- 05-05 by mouth [facility] MG tablet 00:00: 04:59 daily for of 00 :00 90 days. Medicin e dicyclomine 2019-0 2020- No 10mg Take 1 Cap [facility] (BENTYL) 10 2-04 05-05 by mouth 2 C [facility] MG capsule 00:00: 04:59 times of 00 :00 daily as Medicin needed e (abdominal pain/cramp ing) for up to 90 days. promethazin 2020-0 Yes [id number] 12.5mg Take 1 Tab [facility] e 2-03 by mouth College (PHENERGAN) 00:00: every 6 of 12.5 MG 00 hours as Medicin tablet needed for e Nausea. promethazin 2020-0 Yes [id number] 12.5mg Take 1 Tab [facility] e 2-03 by mouth [facility] (PHENERGAN) 00:00: every 6 of 12.5 MG 00 hours as Medicin tablet needed for e Nausea. promethazin 2020-0 Yes [id number] 12.5mg Take 1 Tab [facility] e 2-03 by mouth [facility] (PHENERGAN) 00:00: every 6 of 12.5 MG 00 hours as Medicin tablet needed for e Nausea. promethazin 2020-0 Yes [id number] 12.5mg Take 1 Tab [facility] e 2-03 by mouth [facility] (PHENERGAN) 00:00: every 6 of 12.5 MG 00 hours as Medicin tablet needed for e Nausea. promethazin 2020-0 Yes [id number] 12.5mg Take 1 Tab [facility] e 2-03 by [facility] (PHENERGAN) 00:00: every 6 of 12.5 MG 00 hours as Medicin tablet needed for e Nausea. albuterol 2020-0 Yes Pro[facility] HFA [facility] 108 (11-10 [facility]) 00:00: mcg/actuat of mcg/act 00 ion Medicin inhaler aerosol e inhaler benzonatate 2020-0 Yes benzonatat [facility] (TESSALON) 11-10 e 200 mg [facility]le [facility] 200 mg 00:00: capsule of capsule 00 Medicin e Exenatide 2020-0 Yes [place] 10 [facility] 10 1-31 mcg/dose(2 [facility] MCG/0.04ML 00:00: 50 of SOPN 00 mcg/mL)2.4 Medicin mL e subcutaneo us pen injector pioglitazon 2020-0 Yes pioglitazo [facility] e (ACTOS) 11-10 ne 30 mg Colleg e 30 MG 00:00: tablet of tablet 00 Medicin e albuterol 2020-0 Yes [facility] HFA [facility] 108 (11-10 [facility]) 00:00: mcg/actuat of mcg/act 00 ion Medicin inhaler aerosol e inhaler benzonatate 2020-0 Yes benzonatat [facility] (TESSALON) 1- e 200 mg [facility] 200 mg 00:00: capsule of capsule 00 Medicin e Exenatide 2020-0 Yes [place] 10 [facility] 10 1-31 mcg/dose(2 [facility] MCG/0.04ML 00:00: 50 of SOPN 00 mcg/mL)2.4 Medicin mL e subcutaneo us pen injector pioglitazon 2020-0 Yes pioglitazo [facility] e (ACTOS) 1- ne 30 mg Colleg e 30 MG 00:00: tablet of tablet 00 Medicin e albuterol 2020-0 Yes [facility] HFA [facility] 108 (11-10 [facility] base) 00:00: mcg/actuat of mcg/act 00 ion Medicin inhaler aerosol e inhaler benzonatate 2020-0 Yes benzonatat [facility] (TESSALON) 1- e 200 mg [facility] 200 mg 00:00: capsule of capsule 00 Medicin e Exenatide 2020-0 Yes [facility] 10 1-31 mcg/dose(2 [facility] MCG/0.04ML 00:00: 50 of SOPN 00 mcg/mL)2.4 Medicin mL e subcutaneo us pen injector pioglitazon 2020-0 Yes pioglitazo [facility] (ACTOS) 1 ne 30 mg Colleg e 30 MG 00:00: tablet of tablet 00 Medicin e albuterol 2020-0 Yes [facility] HFA [facility] 108 (11-10 [facility] base) 00:00: mcg/actuat of mcg/act 00 ion Medicin inhaler aerosol e inhaler benzonatate 2020-0 Yes benzonatat [facility] (TESSALON) 11-10 e 200 mg [facility] 200 mg 00:00: capsule of capsule 00 Medicin e Exenatide 2020-0 Yes [facility]ca Juarez [facility] 10 1-31 mcg/dose(2 [facility] MCG/0.04ML 00:00: 50 of SOPN 00 mcg/mL)2.4 Medicin mL e subcutaneo us pen injector Exenatide 2020-0 Yes [facility]ca Juarez [facility] 10 1-31 mcg/dose(2 [facility] MCG/0.04ML 00:00: 50 of SOPN 00 mcg/mL)2.4 Medicin mL e subcutaneo us pen injector Exenatide 2020-0 Yes Bianca Juarez [facility] 10 1-31 mcg/dose(2 [facility] MCG/0.04ML 00:00: 50 of SOPN 00 mcg/mL)2.4 Medicin mL e subcutaneo us pen injector Exenatide 2020-0 Yes Bianca Juarez [facility] 10 - mcg/dose(2 [facility] MCG/0.04ML 00:00: 50 of SOPN 00 mcg/mL)2.4 Medicin mL e subcutaneo us pen injector Exenatide 2019-0 2020- No [facility] 10 [facility] 10 11-10 12-17 mcg/dose(2 [facility] MCG/0.04ML 00:00: 00:00 50 of SOPN 00 :00 mcg/mL)2.4 Medicin mL e subcutaneo us pen injector albuterol 2019-0 2020- No [facility] HFA [facility] 108 (11-[address] [place] [address] base) 00:00: 00:00 mcg/actuat of mcg/act 00 :00 ion Medicin inhaler aerosol e inhaler benzonatate 2019-0 2020- No benzonatat [facility] (TESSALON) 11-1018 e 200 mg [facility] 200 mg 00:00: 00:00 capsule of capsule 00 :00 Medicin e albuterol 2019-0 2020- No [facility] HFA [facility] 108 (11-[address] [place] [address]) 00:00: 00:00 mcg/actuat of mcg/act 00 :00 ion Medicin inhaler aerosol e inhaler benzonatate 2019-0 2020- No benzonatat [facility] (TESSALON) 11-10 e 200 mg [facility] 200 mg 00:00: 00:00 capsule of capsule 00 :00 Medicin e pioglitazon 2019-0 2020- No pioglitazo [facility] (ACTOS) 11-10 09 ne 30 mg [facility]le [facility] 30 MG 00:00: 00:00 tablet of tablet 00 :00 Medicin e Acetaminoph Acetaminoph 2019-0 Yes Every [address] [facility] [address] en With en With 1-27 Hours for Luke s Codeine Codeine 21:11: Pain Patient (Tylenol (Tylenol 00 Medical With With Center Codeine #3 Codeine #3 Tablet) 1 Tablet) 1 Each TABLET Each TABLET PILOCARPINE 2020-0 Yes [id number] TAKE 1 [facility] HCL, ORAL, 1-13 TABLET BY [facility] 5 MG TABS 00:00: MOUTH of 00 THREE Medicin TIMES A e DAY - REPLACING CEVILAMINE PILOCARPINE 2020-0 2020- No [id number] TAKE 1 [facility] HCL, ORAL, 10-23 TABLET BY [facility] 5 MG TABS 00:00: 00:00 MOUTH of 00 :00 THREE Medicin TIMES A e DAY - REPLACING CEVILAMINE PILOCARPINE 2019- No [id number] TAKE 1 [facility] HCL, ORAL, 10-23 TABLET BY Col [facility] 5 MG TABS 00:00: 00:00 MOUTH of 00 :00 THREE Medicin TIMES A e DAY - REPLACING CEVILAMINE sertraline 2019- No sertraline [facility] (ZOLOFT) 10-13 100 mg College 100 MG 22:12: 00:00 tablet of tablet 45 :00 Medicin e escitalopra Yes [id number] 10mg Take 1 Tab [facility] m (LEXAPRO) 10-13 [id number] by mouth [facility]lege 10 MG 00:00: daily. of tablet 00 Medicin e escitalopra 2019- No [id number] 10mg Take 1 Tab [facility] m (LEXAPRO) 10-13 [id number] by mouth [facility] 10 MG 00:00: 00:00 daily. of tablet 00 :00 Medicin e escitalopra 2019- No [id number] 10mg Take 1 Tab [facility] (LEXAPRO) 10-13 [id number] by mouth [facility] 10 MG 00:00: 00:00 daily. of tablet 00 :00 Medicin e sucralfate 2018-10 Yes sucralfate [facility] (CARAFATE) 11-16 1 gram [facility] 1 g tablet 15:07: tablet of 26 Medicin e benzonatate 2018-10 Yes benzonatat [facility] (TESSALON) 06 e 200 mg [facility] 200 mg 15:07: capsule of capsule 25 Medicin e Exenatide 2018-10 Yes [place] 10 [facility] (BYETTA 10 2-06 mcg/dose(2 [facility] MCG PEN) 10 15:07: 50 of MCG/0.04ML 25 mcg/mL)2.4 Med icin SOPN mL e subcutaneo us pen injector nystatin 2018-10 Yes Nystop [facility] (NYSTOP) 11-16 100,000 College powder 15:07: unit/gram of 25 topical Medicin powder e ondansetron 2018-10 Yes ondansetro [facility] (ZOFRAN) 4 2-06 n HCl 4 mg [facility] MG tablet 15:07: tablet of 25 Medicin e pioglitazon 2018-10 Yes pioglitazo [facility] (ACTOS) 206 ne 30 mg Colleg e 30 MG 15:07: tablet of tablet 25 Medicin e albuterol 2018-10 Yes [facility] (PROAIR 11-16 90 [facility] HFA) 108 15:07: mcg/actuat of (90 base) 24 ion Medicin mcg/act aerosol e inhaler inhaler furosemide 2018-10 2020- No 20mg Take 20 mg [facility] (LASIX) 20 2-04 12-04 by mouth. Col lege MG tablet 00:00: 05:59 of 00 :00 Medicin e furosemide 2018-10 2020- No 20mg Take 20 mg [facility] (LASIX) 20 2-04 12-04 by mouth. Col lege MG tablet 00:00: 05:59 of 00 :00 Medicin e furosemide 2018-10 2020- No 20mg Take 20 mg [facility] (LASIX) 20 2-04 12-04 by mouth. Col lege MG tablet 00:00: 05:59 of 00 :00 Medicin e furosemide 2018- 2020- No 20mg Take 20 mg [facility] (LASIX) 20 2-04 12-04 by mouth. Col lege MG tablet 00:00: 05:59 of 00 :00 Medicin e furosemide 2018-10 2020- No 20mg Take 20 mg [facility] (LASIX) 20 2-04 12-04 by mouth. Col lege MG tablet 00:00: 05:59 of 00 :00 Medicin e furosemide 2018-10 2020- No 20mg Take 20 mg [facility] (LASIX) 20 2-04 12-04 by mouth. Col lege MG tablet 00:00: 05:59 of 00 :00 Medicin e furosemide 2018- 2020- No 20mg Take 20 mg [facility] (LASIX) 20 2-04 12-04 by mouth. Col lege MG tablet 00:00: 05:59 of 00 :00 Medicin e furosemide 2018-10 2020- No 20mg Take 20 mg [facility] (LASIX) 20 2-04 12-04 by mouth. Col lege MG tablet 00:00: 05:59 of 00 :00 Medicin e furosemide 2018-10 2020- No 20mg Take 20 mg [facility] (LASIX) 20 2-04 12-04 by mouth. Col lege MG tablet 00:00: 05:59 of 00 :00 Medicin e furosemide 2018-10 2020- No 20mg Take 20 mg [facility] (LASIX) 20 2-04 12-04 by mouth. Col lege MG tablet 00:00: 05:59 of 00 :00 Medicin e furosemide 2018-10 2020- No 20mg Take 20 mg [facility] (LASIX) 20 2-04 12-04 by mouth. Col lege MG tablet 00:00: 05:59 of 00 :00 Medicin e furosemide 2018-10 2020- No 20mg Take 20 mg [facility] (LASIX) 20 2-04 12-04 by mouth. Col lege MG tablet 00:00: 05:59 of 00 :00 Medicin e furosemide 2018- 2020- No 20mg Take 20 mg [facility] (LASIX) 20 2-04 12-04 by mouth. Col lege MG tablet 00:00: 05:59 of 00 :00 Medicin e furosemide 2018-10 2020- No 20mg Take 20 mg [facility] (LASIX) 20 2-04 12-04 by mouth. Col lege MG tablet 00:00: 05:59 of 00 :00 Medicin e furosemide 2018- 2020- No 20mg Take 20 mg [facility] (LASIX) 20 2-04 12-04 by mouth. Col lege MG tablet 00:00: 05:59 of 00 :00 Medicin e furosemide 2018-10 2020- No 20mg Take 20 mg [facility] (LASIX) 20 2-04 12-04 by mouth. Col lege MG tablet 00:00: 05:59 of 00 :00 Medicin e carvedilol 2018-10 Yes [id number] 6.25mg Take 6.25 [facility] (COREG) 2-03 9105 mg by College 6.25 MG 16:04: mouth 2 of tablet 53 times Medicin daily e (with meals). ONDANSETRON 2018-10 Yes 4mg Take 4 mg [facility] OR 2-03 by mouth. College 16:04: of 53 Medicin e atorvastati 2018-10 Yes 40mg Take 40 mg [facility] (LIPITOR) 2-03 by mouth [facility] 40 MG 16:04: daily. of tablet 53 Medicin e ascorbic 2018-10 Yes 500mg Take 500 [facility] acid 500 MG 2-03 mg by College tablet 16:04: mouth of 53 daily. Medicin e ferrous 2018-10 Yes ferrous [facility] sulfate 325 2-03 sulfate Colle ge (65 Fe) MG 16:04: 325 mg (65 o f tablet 53 mg iron) Medicin tablet e hyoscyamine 2018-10 Yes hyoscyamin [facility] (LEVBID) 2-03 e ER 0.375 [facility]le [facility] 0.375 MG CR 16:04: mg of tablet 53 tablet,ext Medicin ended e release,12 hr trazodone 2018-10 Yes [id number] 50mg Take 50 mg [facility] (DESYREL) 2-03 [id number] by mouth [facility] 50 MG 16:04: nightly as of tablet 19 needed. Medicin e Ergocalcife 2018-10 Yes [facility] rol 1.25 MG -30 College ([id number] [place]) 00:00: of CAPS 00 Medicin e Ergocalcife 2018-10 Yes [facility] rol 1.25 MG -30 College (53085 [place]) 00:00: of CAPS 00 Medicin e Ergocalcife 2018-10 Yes [facility] rol 1.25 MG -30 College (16855 [place]) 00:00: of CAPS 00 Medicin e Ergocalcife 2018-10 Yes [facility] rol 1.25 MG -30 College (97838 [place]) 00:00: of CAPS 00 Medicin e Ergocalcife 2018-10 Yes [facility] rol 1.25 MG -30 College (87973 [place]) 00:00: of CAPS 00 Medicin e Ergocalcife 2018-10 Yes [facility] rol 1.25 MG -30 College (07042 [place]) 00:00: of CAPS 00 Medicin e Ergocalcife 2018-10 Yes [facility] rol 1.25 MG -30 College (48720 [place]) 00:00: of CAPS 00 Medicin e Ergocalcife 2018-10 Yes [facility] rol 1.25 MG -30 College (27069 [place]) 00:00: of CAPS 00 Medicin e Ergocalcife 2018-10 Yes [facility] rol 1.25 MG -30 College (69144 [place]) 00:00: of CAPS 00 Medicin e Ergocalcife 2019- Yes [facility] rol 1.25 MG 1-30 College (65806 [place]) 00:00: of CAPS 00 Medicin e Ergocalcife 2019-1 Yes [facility] rol 1.25 MG 1-30 College (55179 [place]) 00:00: of CAPS 00 Medicin e Ergocalcife 2019-1 Yes [facility] rol 1.25 MG 1-30 College (49761 [place]) 00:00: of CAPS 00 Medicin e Ergocalcife 2019-1 Yes [facility] rol 1.25 MG 1-30 College (43798 [place]) 00:00: of CAPS 00 Medicin e Ergocalcife 2019-1 Yes [facility] rol 1.25 MG 1-30 College (76581 [place]) 00:00: of CAPS 00 Medicin e Ergocalcife 2019-1 2020- No [facility] 1.25 MG 1-30 18 [facility] (02279 [place]) 00:00: 00:00 of CAPS 00 :00 Medicin e Ergocalcife 2019-1 2020- No [facility] 1.25 MG 1-30 18 [facility] (70432 [place]) 00:00: 00:00 of CAPS 00 :00 Medicin e TRUE METRIX 2019-1 Yes USE [facility] BLOOD 1-23 DIRECTED 3 College GLUCOSE 00:00: TIMES A of TEST 00 DAY Medicin e TRUE METRIX 2019-1 Yes USE [facility] BLOOD 1-23 DIRECTED 3 [facility] GLUCOSE 00:00: TIMES A of TEST 00 DAY Medicin e TRUE METRIX 2019-1 Yes USE [facility] BLOOD 1-23 DIRECTED 3 [facility] GLUCOSE 00:00: TIMES A of TEST 00 DAY Medicin e TRUE METRIX 2019-1 Yes USE [facility] BLOOD 1-23 DIRECTED 3 [facility] GLUCOSE 00:00: TIMES A of TEST 00 DAY Medicin e TRUE METRIX 2019-1 Yes USE [facility] BLOOD 1-23 DIRECTED 3 [facility] GLUCOSE 00:00: TIMES A of TEST 00 DAY Medicin e TRUE METRIX 2019-1 Yes USE [facility] BLOOD 1-23 DIRECTED 3 [facility] GLUCOSE 00:00: TIMES A of TEST 00 DAY Medicin e TRUE METRIX 2019-1 Yes USE [facility] BLOOD 1-23 DIRECTED 3 [facility] GLUCOSE 00:00: TIMES A of TEST 00 DAY Medicin e TRUE METRIX 2019- Yes USE [facility] BLOOD 1-23 DIRECTED 3 [facility] GLUCOSE 00:00: TIMES A of TEST DAY Medicin e TRUE METRIX 2019- Yes USE [facility] BLOOD 1-23 DIRECTED 3 [facility] GLUCOSE 00:00: TIMES A of TEST DAY Medicin e TRUE METRIX 2019- Yes USE [facility] BLOOD 1-23 DIRECTED 3 College GLUCOSE 00:00: TIMES A of TEST DAY Medicin e TRUE METRIX 2019-1 Yes USE [facility] BLOOD 1-23 DIRECTED 3 [facility] GLUCOSE 00:00: TIMES A of TEST DAY Medicin e TRUE METRIX 2019- Yes USE [facility] BLOOD 1-23 DIRECTED 3 [facility] GLUCOSE 00:00: TIMES A of TEST DAY Medicin e TRUE METRIX 2019- Yes USE [facility] BLOOD 1-23 DIRECTED 3 College GLUCOSE 00:00: TIMES A of TEST DAY Medicin e TRUE METRIX 2019-1 Yes USE [facility] BLOOD 1-23 DIRECTED 3 College GLUCOSE 00:00: TIMES A of TEST DAY Medicin e TRUE METRIX 2019-1 2020- No USE [facility] BLOOD 1-23 11-18 DIRECTED 3 College GLUCOSE 00:00: 00:00 TIMES A of TEST 00 :00 DAY Medicin e TRUE METRIX 2019-1 2020- No USE [facility] BLOOD 1-23 11-18 DIRECTED 3 College GLUCOSE 00:00: 00:00 TIMES A of TEST 00 :00 DAY Medicin e Ursodiol 2019- Yes TAKE 1 [facility] 500 MG TABS 1-21 TABLET BY Col [...] DAY e Ursodiol 2018-10 Yes TAKE 1 [facility] 500 MG TABS 1-21 TABLET BY Col [...] DAY e Ursodiol 2018-10 Yes TAKE 1 [facility] 500 MG TABS 1-21 TABLET BY Col lege 00:00: MOUTH of 00 TWICE A Medicin DAY e Ursodiol 2018-10 Yes TAKE 1 [facility] 500 MG TABS 1-21 TABLET BY Col lege 00:00: MOUTH of 00 TWICE A Medicin DAY e Ursodiol 2018-10 Yes TAKE 1 [facility] 500 MG TABS 1-21 TABLET BY Col [...] DAY e Ursodiol 2018-10 Yes TAKE 1 [facility] 500 MG TABS 1-21 TABLET BY Col lege 00:00: MOUTH of 00 TWICE A Medicin DAY e Ursodiol 2018-10 Yes TAKE 1 [facility] 500 MG TABS 1-21 TABLET BY Col [facility]ge 00:00: MOUTH of 00 TWICE A Medicin DAY e Ursodiol 2018-10 Yes TAKE 1 [facility] 500 MG TABS 1-21 TABLET BY Col [facility]ge 00:00: MOUTH of 00 TWICE A Medicin DAY e Ursodiol 2018-10 Yes TAKE 1 [facility] 500 MG TABS 1-21 TABLET BY Col [...] DAY e Ursodiol 2018-10 Yes TAKE 1 [facility] 500 MG TABS 1-21 TABLET BY Col lege 00:00: MOUTH of 00 TWICE A Medicin DAY e Ursodiol 2018-10 Yes TAKE 1 [facility] 500 MG TABS 1-21 TABLET BY Col [facility]ge 00:00: MOUTH of 00 TWICE A Medicin DAY e Ursodiol 2018-10 Yes TAKE 1 [facility] 500 MG TABS 1-21 TABLET BY Col [facility]ge 00:00: MOUTH of 00 TWICE A Medicin DAY e Ursodiol 2018-10 Yes TAKE 1 [facility] 500 MG TABS 1-21 TABLET BY Col lege 00:00: MOUTH of 00 TWICE A Medicin DAY e Ursodiol 2018-10 Yes TAKE 1 [facility] 500 MG TABS 1-21 TABLET BY Col [facility]ge 00:00: MOUTH of 00 TWICE A Medicin DAY e Ursodiol 2018-10 Yes TAKE 1 [facility] 500 MG TABS 1-21 TABLET BY Col [facility]ge 00:00: MOUTH of 00 TWICE A Medicin DAY e Ursodiol 2018-10 Yes TAKE 1 [facility] 500 MG TABS 1-21 TABLET BY Col [facility]ge 00:00: MOUTH of 00 TWICE A Medicin DAY e gabapentin 2018-10 Yes [id number] [facility] and [facility] (NEURONTIN) 1-20 noon - Colleg e 300 MG 00:00: 300mg , pm of capsule 00 - 600mg Medicin e gabapentin 2019- Yes [id number] Am and [facility] (NEURONTIN) - noon - Colleg e 300 MG 00:00: 300mg , pm of capsule 00 - 600mg Medicin e gabapentin 2019- Yes [id number] [facility] and [facility] (NEURONTIN) 10-30 noon - Colleg e 300 MG 00:00: 300mg , pm of capsule 00 - 600mg Medicin e gabapentin 2019- Yes [id number] Am and [facility] (NEURONTIN) 10-30 noon - Colleg e 300 MG 00:00: 300mg , pm of capsule 00 - 600mg Medicin e gabapentin 2018- Yes [id number] Am and [facility] (NEURONTIN) 10-30 noon - Colleg e 300 MG 00:00: 300mg , pm of capsule 00 - 600mg Medicin e gabapentin 2018- Yes [id number] Am and [facility] (NEURONTIN) 10-30 noon - Colleg e 300 MG 00:00: 300mg , pm of capsule 00 - 600mg Medicin e gabapentin 2019- Yes [id number] [facility] (NEURONTIN) 10-30 noon - Colleg e 300 MG 00:00: 300mg , pm of capsule 00 - 600mg Medicin e gabapentin 2019- Yes [id number] Am and [facility] (NEURONTIN) - noon - Colleg e 300 MG 00:00: 300mg , pm of capsule 00 - 600mg Medicin e gabapentin 2019- Yes [id number] [facility] and [facility] (NEURONTIN) - noon - Colleg e 300 MG 00:00: 300mg , pm of capsule 00 - 600mg Medicin e gabapentin 2019- Yes [id number] Am and [facility] (NEURONTIN) - noon - Colleg e 300 MG 00:00: 300mg , pm of capsule 00 - 600mg Medicin e gabapentin 2019- Yes [id number] [facility] and [facility] (NEURONTIN) - noon - Colleg e 300 MG 00:00: 300mg , pm of capsule 00 - 600mg Medicin e gabapentin 2019- Yes [id number] Am and [facility] (NEURONTIN) 10-30 noon - Colleg e 300 MG 00:00: 300mg , pm of capsule 00 - 600mg Medicin e gabapentin 2018-10- No [id number] Am and [facility] (NEURONTIN) 10-3014 noon - [facility] 300 MG 00:00: 00:00 300mg , pm of capsule 00 :00 - 600mg Medicin e spironolact 2018-10- No 50mg QD Take [address] [facility] -05 03-08 tablet ([facility] (ALDACTONE) 00:00: 00:00 mg total) Medical 50 MG 00 :00 [facility] tablet daily. spironolact 2018-10- No 50mg QD Take [address] [facility] one -05 03-08 tablet ([facility] (ALDACTONE) 00:00: 00:00 mg total) Medical 50 MG 00 :00 by mouth [facility] tablet daily. spironolact 2018-10- No 50mg QD Take [address] [facility] one -05 03-08 tablet ([facility] (ALDACTONE) 00:00: 00:00 mg total) Medical 50 MG 00 :00 by mouth Center tablet daily. spironolact 2018-10- No 50mg QD Take [address] [facility] one -05 03-08 tablet ([facility] (ALDACTONE) 00:00: 00:00 mg total) Medical 50 MG 00 :00 by mouth Center tablet daily. spironolact 2018-10- No 50mg Take 50 mg [facility] one 10-1505 by mouth. [place] [place] (ALDACTONE) 00:00: 05:59 of 50 MG 00 :00 Medicin tablet e spironolact 2018-10- No 50mg Take 50 mg [facility] one -08-15 by mouth. [facility] [place] (ALDACTONE) 00:00: 05:59 of 50 MG 00 :00 Medicin tablet e spironolact 2018-10- No 50mg Take 50 mg [facility] one -08-15 by mouth. [facility] [place] (ALDACTONE) 00:00: 05:59 of 50 MG 00 :00 Medicin tablet e spironolact 2018-10- No 50mg Take 50 mg [facility] one -08-15 by mouth. [facility] [place] (ALDACTONE) 00:00: 05:59 of 50 MG 00 :00 Medicin tablet e spironolact 2018-10 2020- No 50mg Take 50 mg [facility] one -05 11-05 by mouth. [facility] [place] (ALDACTONE) 00:00: 05:59 of 50 MG 00 :00 Medicin tablet e spironolact 2018-10 2020- No 50mg Take 50 mg [facility] one -02 18-05 by mouth. [facility] [place] (ALDACTONE) 00:00: 05:59 of 50 MG 00 :00 Medicin tablet e spironolact 2018-10 2020- No 50mg Take 50 mg [facility] one -05 -05 by mouth. [facility] [place] (ALDACTONE) 00:00: 05:59 of 50 MG 00 :00 Medicin tablet e spironolact 2018-10 2020- No 50mg Take 50 mg [facility] one -05 -05 by mouth. [facility] [place] (ALDACTONE) 00:00: 05:59 of 50 MG 00 :00 Medicin tablet e spironolact 2018-10 2020- No 50mg Take 50 mg [facility] one -05 05 by mouth. [facility] [place] (ALDACTONE) 00:00: 05:59 of 50 MG 00 :00 Medicin tablet e spironolact 2018-10 2020- No 50mg Take 50 mg [facility] one -05 05 by mouth. [facility] [place] (ALDACTONE) 00:00: 05:59 of 50 MG 00 :00 Medicin tablet e spironolact 2018-10 2020- No 50mg Take 50 mg [facility] one -05 05 by mouth. [facility] [place] (ALDACTONE) 00:00: 05:59 of 50 MG 00 :00 Medicin tablet e spironolact 2018-10 2020- No 50mg Take 50 mg [facility] one -05 05 by mouth. [facility] [place] (ALDACTONE) 00:00: 05:59 of 50 MG 00 :00 Medicin tablet e spironolact 2018-10 2020- No 50mg Take 50 mg [facility] one -05 11-05 by mouth. [facility] [place] (ALDACTONE) 00:00: 05:59 of 50 MG 00 :00 Medicin tablet e spironolact 2018-10 2020- No 50mg Take 50 mg [facility] one -05 11-05 by mouth. [facility] [place] (ALDACTONE) 00:00: 05:59 of 50 MG 00 :00 Medicin tablet e carvedilol 2018-10 Yes [id number] 6.25mg Take 6.25 [facility] (COREG) 1-04 9105 mg by College 6.25 MG 20:39: mouth 2 of tablet 32 times Medicin daily e (with meals). sucralfate 2018-10 Yes 1g Take 1 g [facility] (CARAFATE) 1-04 by mouth Colle ge [...] daily. Medicin e ferrous 2018-10 Yes ferrous [facility] sulfate 325 1-04 sulfate Colle ge (65 Fe) MG 20:39: 325 mg (65 o f tablet 32 mg iron) Medicin tablet e hyoscyamine 2018-10 Yes hyoscyamin [facility] (LEVBID) 1-04 e ER 0.375 Colle ge 0.375 MG CR 20:39: mg of tablet 32 tablet,ext Medicin ended e release,12 hr trazodone 2018-10 Yes [id number] 50mg Take 50 mg [facility] (DESYREL) 1-04 [id number] by mouth [facility] 50 MG 20:39: nightly as of tablet 32 needed. Medicin e carvedilol 2018-10 Yes [id number] 6.25mg Take 6.25 [facility] (COREG) 1-04 9105 mg by [facility] 6.25 MG 20:39: mouth 2 of tablet 32 times Medicin daily e (with meals). sucralfate 2018-10 Yes 1g Take 1 g [facility] (CARAFATE) 1-04 by mouth Colle ge 1 GM/10ML 20:39: four times of suspension 32 daily. Medicin e ONDANSETRON 2018-10 Yes 4mg Take 4 mg [facility] OR 1-04 by mouth. College 20:39: of 32 Medicin e atorvastati 2018-10 Yes 40mg Take 40 mg [facility] n (LIPITOR) 1-04 by mouth [facility] 40 MG 20:39: daily. of tablet 32 Medicin e ascorbic 2018-10 Yes 500mg Take 500 [facility] acid 500 MG 10-14 mg by College tablet 20:39: mouth of 32 daily. Medicin e ferrous 2018-10 Yes ferrous [facility] sulfate 325 10-14 sulfate Colle ge (65 Fe) MG 20:39: 325 mg (65 o f tablet 32 mg iron) Medicin tablet e hyoscyamine 2018-10 Yes hyoscyamin [facility] (LEVBID) 10-14 e ER 0.375 Colle ge 0.375 MG CR 20:39: mg of tablet 32 tablet,ext Medicin ended e release,12 hr trazodone 2018-10 Yes [id number] 50mg Take 50 mg [facility] (DESYREL) 10-14 [id number] by mouth [facility] 50 MG 20:39: nightly as of tablet 32 needed. Medicin e NOVOLOG 2018-10 Yes 35U Inject [facility] FLEXPEN 100 - 35-40 College UNIT/ML 00:00: Units into of SOPN 00 the skin 3 Medicin times e daily (with meals). NOVOLOG 2018-10 Yes 35U Inject [facility] FLEXPEN 100 - 35-40 College UNIT/ML 00:00: Units into of SOPN 00 the skin 3 Medicin times e daily (with meals). Insulin 2018-10 Yes Inject [facility] Glargine, 10-14 into the [facility] Unit Dial, 00:00: skin. of 300 UNIT/ML 00 Medicin SOPN e NOVOLOG 2018-10 Yes 35U Inject [facility]on FLEXPEN 100 - 35-40 College UNIT/ML 00:00: Units into of SOPN 00 the skin 3 Medicin times e daily (with meals). Insulin 2018-10 Yes Inject [facility] Glargine, 10-14 into the [facility] Unit Dial, 00:00: skin. of 300 UNIT/ML 00 Medicin SOPN e NOVOLOG 2018-10 Yes 35U Inject [facility]on FLEXPEN 100 -04 35-40 College UNIT/ML 00:00: Units into of SOPN 00 the skin 3 Medicin times e daily (with meals). Insulin 2018-10 Yes Inject Yon Glargine, 10-14 into the [facility] Unit Dial, 00:00: skin. of 300 UNIT/ML 00 Medicin SOPN e NOVOLOG 2018-10 Yes 35U Inject [facility] FLEXPEN 100 1-04 35-40 College UNIT/ML 00:00: [...] 00 Medicin SOPN e PILOCARPINE 2018-10 Yes [id number] TAKE 1 [facility] HCL, ORAL, 1-04 TABLET BY [facility] 5 MG TABS 00:00: MOUTH of 00 THREE Medicin TIMES A e DAY - REPLACING CEVILAMINE NOVOLOG 2018-10 Yes 35U Inject [facility] FLEXPEN 100 1-04 35-40 College UNIT/ML 00:00: Units into of SOPN 00 the skin 3 Medicin times e daily (with meals). Insulin 2018-10 Yes 40U Inject 40 [facility] Glargine, 1 1-04 Units into Co llege Unit Dial, 00:00: the skin of 300 UNIT/ML 00 two times Med icin SOPN daily. e PILOCARPINE 2018-10 Yes [id number] TAKE 1 [facility] HCL, ORAL, 1-04 TABLET BY [facility] 5 MG TABS 00:00: MOUTH of 00 THREE Medicin TIMES A e DAY - REPLACING CEVILAMINE NOVOLOG 2018-10 Yes 35U Inject [facility] FLEXPEN 100 1-04 35-40 College UNIT/ML 00:00: [...] daily. e NOVOLOG 2018-10 Yes 35U Inject [facility] FLEXPEN 100 1-04 35-40 College UNIT/ML 00:00: Units into of SOPN 00 the skin 3 Medicin times e daily (with meals). Insulin 2018-10 Yes 40U Inject 40 [facility] Gl[facility]ine, 1 1-04 Units into Co llege Unit Dial, 00:00: the skin of 300 UNIT/ML 00 two times Med icin SOPN daily. e Insulin 2018-10 Yes Inject [facility] Glargine, 1 1-04 into the [facility] Unit Dial, 00:00: skin. of (TOUJEO 00 Medicin SOLOSTAR) e 300 UNIT/ML SOPN NOVOLOG 2018-10 Yes 35U Inject [facility] FLEXPEN 100 1-04 35-40 College UNIT/ML 00:00: Units into of SOPN 00 the skin 3 Medicin times e daily (with meals). Insulin 2018-10 Yes 40U Inject 40 [facility] Gl[facility]ine, 1 1-04 Units into Co llege Unit Dial, 00:00: the skin of 300 UNIT/ML 00 two times Med icin SOPN daily. e Insulin 2018-10 Yes Inject [facility] Glargine, 1 1-04 into the [facility] Unit Dial, 00:00: skin. of (TOUJEO 00 Medicin SOLOSTAR) e 300 UNIT/ML SOPN NOVOLOG 2018-10 Yes 35U Inject [facility] FLEXPEN 100 1-04 35-40 College UNIT/ML 00:00: [...] SOPN daily. e Insulin 2018-10 Yes Inject [facility] Glargine, 1 1-04 into the [facility] Unit Dial, 00:00: skin. of (TOUJEO 00 Medicin SOLOSTAR) e 300 UNIT/ML SOPN NOVOLOG 2018-10 Yes 35U Inject [facility] FLEXPEN 100 1-04 35-40 College UNIT/ML 00:00: Units into of SOPN 00 the skin 3 Medicin times e daily (with meals). NOVOLOG 2018-10 Yes 35U Inject [facility] FLEXPEN 100 1-04 35-40 College UNIT/ML 00:00: Units into of SOPN 00 the skin 3 Medicin times e daily (with meals). NOVOLOG 2018-10 Yes 35U Inject [facility] FLEXPEN 100 1-04 35-40 College UNIT/ML 00:00: Units into of SOPN 00 the skin 3 Medicin times e daily (with meals). Insulin 2018-10 2020- No Inject [facility] Glargine, 1 10-1417 into the [facility] Unit Dial, 00:00: 00:00 skin. of 300 UNIT/ML 00 :00 Medicin SOPN e promethazin 2018-10 Yes 12.5mg Take 1 Tab [facility] e 0-28 by mouth [facility] [place] (PHENERGAN) 00:00: every 6 of 12.5 MG 00 hours as Medicin tablet needed for e Nausea. promethazin 2018-10 Yes 12.5mg Take 1 Tab [facility] e 0-28 by mouth [facility] (PHENERGAN) 00:00: every 6 of 12.5 MG 00 hours as Medicin tablet needed for e Nausea. promethazin 2018-10 Yes 12.5mg Take 1 Tab [facility] e 0-28 by mouth [facility] [place] (PHENERGAN) 00:00: every 6 of 12.5 MG 00 hours as Medicin tablet needed for e Nausea. promethazin 2018-10 2020- No 12.5mg Take 1 Tab [facility] e 0-28 - by [facility] (PHENERGAN) 00:00: 00:00 every 6 of 12.5 MG 00 :00 hours as Medicin tablet needed for e Nausea. promethazin 2018-10 2020- No 12.5mg Take 1 Tab [facility] e 0-28 - by [facility] (PHENERGAN) 00:00: 00:00 every 6 of 12.5 MG 00 :00 hours as Medicin tablet needed for e Nausea. trazodone 2018-10 Yes [id number] 50mg Take 50 mg [facility] (DESYREL) 0-02 [id number] by mouth [facility] 50 MG 05:15: nightly as of tablet 40 needed. Medicin e escitalopra 2018-10 Yes [id number] 10mg Take 1 Tab [facility] m (LEXAPRO) 0-01 [id number] by mouth [facility]lege 10 MG 00:00: daily. of tablet 00 Medicin e escitalopra 2018-10 Yes [id number] 10mg Take 1 Tab [facility] m (LEXAPRO) 0-01 [id number] by mouth [facility] 10 MG 00:00: daily. of tablet 00 Medicin e escitalopra 2018-10 Yes [id number] 10mg Take 1 Tab [facility] m (LEXAPRO) 0 [id number] by mouth [facility] 10 MG 00:00: daily. of tablet 00 Medicin e escitalopra 2018-10 2020- No [id number] 10mg Take 1 Tab [facility] m (LEXAPRO) 0-01 10-13 [id number] by mouth C [facility]lege 10 MG 00:00: 00:00 daily. of tablet 00 :00 Medicin e gabapentin Yes TAKE 1 [facility] (NEURONTIN) 9-27 CAPSULE BY Co llege 300 MG 00:00: MOUTH of capsule 00 THREE Medicin TIMES A e DAY gabapentin Yes TAKE 1 [facility] (NEURONTIN) 9-27 CAPSULE BY Co llege 300 MG 00:00: MOUTH of capsule 00 THREE Medicin TIMES A e DAY gabapentin Yes TAKE 1 [facility] (NEURONTIN) 9-27 CAPSULE BY [facility]lege 300 MG 00:00: MOUTH of capsule 00 THREE Medicin TIMES A e DAY duloxetine Yes TAKE 1 [facility] (CYMBALTA) [...] capsule 00 EVERY DAY Medicin e duloxetine 2020- No TAKE 1 [facility] (CYMBALTA) 9-16 11-18 CAPSULE BY Co llege 60 MG 00:00: 00:00 MOUTH of capsule 00 :00 EVERY DAY Medicin e duloxetine 2019 2020- No TAKE 1 [facility] (CYMBALTA) 9-16 11-18 CAPSULE BY Co llege 60 MG 00:00: 00:00 MOUTH of capsule 00 :00 EVERY DAY Medicin e polyethylen 2019 Yes 17g Take 17 g [facility] glycol 9-10 by mouth [facility] [place] (GLYCOLAX) 00:00: daily. of powder 00 Medicin e polyethylen Yes 17g Take 17 g [facility] e glycol 9-10 by mouth [facility] (GLYCOLAX) 00:00: daily. of powder 00 Medicin e polyethylen 0 Yes 17g Take 17 g [facility] e glycol 9-10 by mouth [facility] (GLYCOLAX) 00:00: daily. of powder 00 Medicin e polyethylen 2018-0 Yes 17g Take 17 g [facility] glycol 9-10 by mouth [facility] (GLYCOLAX) 00:00: daily. of powder 00 Medicin e polyethylen Yes 17g Take 17 g [facility] e glycol 9-10 by mouth [facility] (GLYCOLAX) 00:00: daily. of powder 00 Medicin e polyethylen 2020- No 17g Take 17 g [facility] e glycol 9-10 02-04 by mouth Colleg e (GLYCOLAX) 00:00: 00:00 daily. of powder 00 :00 Medicin e polyethylen 0 2020- No 17g Take 17 g [facility] e glycol 9-10 02-04 by mouth Colleg e (GLYCOLAX) 00:00: 00:00 daily. of powder 00 :00 Medicin e gabapentin Yes TAKE 1 [facility] (NEURONTIN) 8-29 CAPSULE BY Co llege 300 MG 00:00: MOUTH of capsule 00 THREE Medicin TIMES A e DAY gabapentin 2019- No TAKE 1 [facility] (NEURONTIN) 8-29 09-27 CAPSULE BY Adelina zayas 300 MG 00:00: 00:00 MOUTH of capsule 00 :00 THREE Medicin TIMES A e DAY Continuous Yes [id number] 1{each} 1 Each [facility] Blood Gluc 8-27 every 14 Colle ge Sensor 00:00: days. of (FREESTYLE 00 Medicin DEANA 14 e DAY SENSOR) MISC Continuous Yes [id number] 1{each} 1 Each [facility] Blood Gluc 8-27 daily. 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 of (FREESTYLE 00 Medicin DEANA 14 e DAY SENSOR) MISC Continuous Yes [id number] 1{each} 1 Each [facility] Blood Gluc 8-27 daily. [employer] Supervisor 00:00: of (FREESTYLE 00 Medicin DEANA 14 e DAY READER) MONICA tramadol 2019-0 Yes 50mg Take 1 Tab [facility] (ULTRAM) 50 8-22 by mouth [facility] MG tablet 00:00: every 6 of 00 hours as Medicin needed for e Pain. tramadol 2019-0 Yes 50mg Take 1 Tab [facility] (ULTRAM) 50 8-22 by mouth [facility] MG tablet 00:00: every 6 of 00 hours as Medicin needed for e Pain. tramadol 2019-0 Yes 50mg Take 1 Tab [facility] (ULTRAM) 50 8-22 by mouth [facility] MG tablet 00:00: every 6 of 00 hours as Medicin needed for e Pain. tramadol 2019-0 Yes 50mg Take 1 Tab [facility] (ULTRAM) 50 8-22 by mouth [facility] MG tablet 00:00: every 6 of 00 hours as Medicin needed for e Pain. tramadol 2019-0 Yes 50mg Take 1 Tab [facility] (ULTRAM) 50 8-22 by mouth [facility] MG tablet 00:00: every 6 of 00 hours as Medicin needed for e Pain. tramadol 2019-0 Yes 50mg Take 1 Tab [facility] (ULTRAM) 50 8-22 by mouth [facility] MG tablet 00:00: every 6 of 00 hours as Medicin needed for e Pain. tramadol 2019-0 Yes 50mg Take 1 Tab [facility] (ULTRAM) 50 8-22 by mouth [facility] MG tablet 00:00: every 6 of 00 hours as Medicin needed for e Pain. tramadol 2019-0 Yes 50mg Take 1 Tab [facility] (ULTRAM) 50 8-22 by mouth [facility] MG tablet 00:00: every 6 of 00 hours as Medicin needed for e Pain. tramadol 2019-0 Yes 50mg Take 1 Tab [facility] (ULTRAM) 50 8-22 by mouth [facility] MG tablet 00:00: every 6 of 00 hours as Medicin needed for e Pain. tramadol 2019-0 Yes 50mg Take 1 Tab [facility] (ULTRAM) 50 8-22 by mouth [facility] MG tablet 00:00: every 6 of 00 hours as Medicin needed for e Pain. carvedilol 2019-0 Yes [id number] 6.25mg Take 6.25 [facility] (COREG) 7-16 9105 mg by College 6.25 MG 18:16: mouth 2 of tablet 28 times Medicin daily e (with meals). sucralfate 2019-0 Yes 1g Take 1 g [facility] (CARAFATE) 7-16 by mouth Colle ge 1 GM/10ML 18:16: four times of suspension 28 daily. Medicin e ONDANSETRON 2019-0 Yes 4mg Take 4 mg [facility] [place] 7-16 by mouth. College 18:16: of 28 Medicin e promethazin 2019- Yes 12.5mg Take 12.5 [facility] e 7-16 mg by College (PHENERGAN) 18:16: mouth of 12.5 MG 28 every 6 Medicin tablet hours as e needed for Nausea. atorvastati 0 Yes 40mg Take 40 mg [facility] n (LIPITOR) 7-16 by mouth [facility] 40 MG 18:16: daily. of tablet 28 Medicin e ascorbic 0 Yes 500mg Take 500 [facility] acid 500 MG 7-16 mg by College tablet 18:16: mouth of 28 daily. Medicin e ferrous 0 Yes ferrous [facility] sulfate 325 -16 sulfate Colle ge (65 Fe) MG 18:16: 325 mg (65 o f tablet 28 mg iron) Medicin tablet e hyoscyamine 0 Yes hyoscyamin [facility] (LEVBID) 7-16 e ER 0.375 Colle ge 0.375 MG CR 18:16: mg of tablet 28 tablet,ext Medicin ended e release,12 hr carvedilol 2019-0 Yes [id number] 6.25mg Take 6.25 [facility] (COREG) 7-16 9105 mg by [facility] [place] 6.25 MG 18:16: mouth 2 of tablet 28 times Medicin daily e (with meals). sucralfate 2019-0 Yes 1g Take 1 g [facility] (CARAFATE) 7-16 by mouth Colle ge 1 GM/10ML 18:16: four times of suspension 28 daily. Medicin e ONDANSETRON 2019-0 Yes 4mg Take 4 mg [facility] [place] 7-16 by mouth. College 18:16: of 28 Medicin e promethazin 2018- Yes 12.5mg Take 12.5 [facility] e 7-16 mg by [place] (PHENERGAN) 18:16: mouth of 12.5 MG 28 every 6 Medicin tablet hours as e needed for Nausea. atorvastati Yes 40mg Take 40 mg [facility] n (LIPITOR) 7-16 by mouth [facility] 40 MG 18:16: daily. of tablet 28 Medicin e ascorbic Yes 500mg Take 500 [facility] acid 500 MG 7-16 mg by College tablet 18:16: mouth of 28 daily. Medicin e ferrous Yes ferrous [facility] sulfate 325 7-16 sulfate Colle ge (65 Fe) MG 18:16: 325 mg (65 o f tablet 28 mg iron) Medicin tablet e hyoscyamine Yes hyoscyamin [facility] (LEVBID) 7-16 e ER 0.375 Colle ge [...] 00 two times Medicin daily. e NOVOLOG 2018- No 30U Inject 30 [facility] FLEXPEN 100 7-16 11-04 Units into C ollege UNIT/ML 00:00: 00:00 the skin 3 of SOPN 00 :00 times Medicin daily e (with meals). Insulin 2018- No 35U Inject 35 [facility] Glargine 7-16 11-04 Units into [facility] 300 UNIT/ML 00:00: 00:00 the skin o f SOPN 00 :00 two times Medicin daily. e warfarin 2020- No 4mg QD Take [address] [facility] (COUMADIN) 7-04 03-18 tablet (4 Jason es 4 MG tablet 00:00: 00:00 mg total) Medical 00 :00 by mouth Center daily Alternate with 3mg. warfarin 2020- No 4mg QD Take [address] [facility] (COUMADIN) 04-13-18 tablet (4 [facility] 4 MG tablet 00:00: 00:00 mg total) Medical 00 :00 by mouth Center daily Alternate with 3mg. warfarin 2020- No 4mg QD Take [address] [facility] (COUMADIN) 04-13-18 tablet (4 [facility] 4 MG tablet 00:00: 00:00 mg total) Medical 00 :00 by mouth Center daily Alternate with 3mg. warfarin 2020- No 4mg QD Take [address] [facility] (COUMADIN) 04-13-18 tablet (4 [facility] 4 MG tablet 00:00: 00:00 mg total) Medical 00 :00 by mouth Center daily Alternate with 3mg. Cephalexin Cephalexin 2018- No [address] [facility] Monohydrate Monohydrate 6-05 06-05 Hours [facility] (Keflex) (Keflex) 16:18: 00:00 Ev ent 500 Mg 500 Mg 00 :00 [facility] CAPSULE CAPSULE Center PILOCARPINE Yes 5mg Take 5 mg [facility] HCL, ORAL, 5-16 by mouth Colle ge 5 MG TABS 00:00: daily. of Medicin e PILOCARPINE Yes 5mg Take 5 mg [facility] HCL, ORAL, 5-16 by mouth Colle ge 5 MG TABS 00:00: daily. of Medicin e PILOCARPINE 2019- No 5mg Take 5 mg [facility] HCL, ORAL, 5-16 11-02 by mouth [facility] 5 MG TABS 00:00: 00:00 daily. of 00 :00 Medicin e TOUJEO 2020- No [facility]JECT [facility] SOL[facility]AR 5-21 12-18 UNITS [facility] U-300 00:00: 00:00 SUBCUTANEO Medic al INSULIN 300 00 :00 USLY TWICE Ce nter unit/mL DAILY (1.5 mL) InPn syringe TOUJEO 2020- No INJECT [facility] SOLOSTAR 5-21 12-18 UNITS [facility] U-300 00:00: 00:00 SUBCUTANEO Medic al INSULIN 300 00 :00 USLY TWICE Ce nter unit/mL DAILY (1.5 mL) InPn syringe TOUJEO 2020- No INJECT 35 [facility] SOLOSTAR 5-13 03-18 UNITS [facility] U-300 00:00: 00:00 SUBCUTANEO Medic al INSULIN 300 00 :00 USLY TWICE Ce nter unit/mL DAILY (1.5 mL) InPn syringe TOUJEO 2020- No INJECT [facility] SOLOSTAR 5-13 03-18 UNITS [facility] U-300 00:00: 00:00 SUBCUTANEO Medic al INSULIN 300 00 :00 USLY TWICE Ce nter unit/mL DAILY (1.5 mL) InPn syringe nitrofurant Yes 100 mg = 1 [facility] oin 5-11 cap, PO, [facility] [place] (MACRODANTI 00:00: QID, X 10 o f N) 100 MG 00 day, # 40 Medic in capsule cap, 0 e Refill(s) nitrofurant Yes 100 mg = 1 [facility] oin 5-11 cap, PO, [facility] [place] (MACRODANTI 00:00: QID, X 10 o f N) 100 MG 00 day, # 40 Medic in capsule cap, 0 e Refill(s) nitrofurant Yes 100 mg = 1 [facility] oin 5-11 cap, PO, [facility] [place] (MACRODANTI 00:00: QID, X 10 o f N) 100 MG 00 day, # 40 Medic in capsule cap, 0 e Refill(s) nitrofurant 2019- No 100 mg = 1 [facility] oin 5-11 18 cap, PO, [facility] [place] (MACRODANTI 00:00: 00:00 QID, X 10 of N) 100 MG 00 :00 day, # 40 Medic in capsule cap, 0 e Refill(s) nitrofurant 2019- No 100 mg = 1 [facility] oin 5-11 18 cap, PO, [facility] (MACRODANTI 00:00: 00:00 QID, X 10 of N) 100 MG 00 :00 day, # 40 Medic in capsule cap, 0 e Refill(s) Diclofenac Yes Apply 2g [facility] Sodium 1 % 1-31 tid to the Col lege GEL 00:00: BL knees of 00 Medicin e Diclofenac Yes Apply 2g [facility] Sodium 1 % 31 tid to the Col lege GEL 00:00: BL knees of 00 Medicin e Diclofenac 2019- No Apply 2g [facility] Sodium 1 % 1-31 11-04 tid to the Co llege GEL 00:00: 00:00 BL knees of 00 :00 Medicin e Propranolol Propranolol 2017-10 2019- No [address] [facility] Hcl 0-04 06-05 Daily [facility] 17:56: 00:00 Patient 00 :00 [facility] Tramadol Tramadol 2017-10 2019- No 50 [address] Hcl Hcl 0-04 06-05 Hours as [facility] (Ultram) 50 (Ultram) 50 17:56: 00:00 needed for Patient Mg TABLET Mg TABLET 00 :00 [facility] warfarin Yes [facility] (COUMADIN) 4- College 3 MG tablet 00:00: of 00 Medicin e warfarin 2018 Yes [id number] [facility] (COUMADIN) 4- 9105 [facility] 3 MG tablet 00:00: of 00 Medicin e warfarin 20180 Yes [id number] [facility] (COUMADIN) 4- 9105 [facility] 4 MG tablet 00:00: of 00 Medicin e warfarin 2018-0 Yes [id number] [facility] (COUMADIN) 4- 9105 [facility] 3 MG tablet 00:00: of 00 Medicin e warfarin 2018-0 Yes [id number] [facility] (COUMADIN) 4- 9105 [facility] 4 MG tablet 00:00: of 00 Medicin e warfarin 2018-0 Yes [id number] [facility] (COUMADIN) 4-03 9105 [facility] 3 MG tablet 00:00: of 00 Medicin e warfarin 2018-0 Yes [id number] [facility] (COUMADIN) 4- 9105 [facility] 4 MG tablet 00:00: of 00 Medicin e warfarin 2018-0 Yes [id number] Nabila Lynn [facility] (COUMADIN) 4- 91 ,Sat,Sun Colle ge 3 MG tablet 00:00: of 00 Medicin e warfarin 2018-0 Yes [id number] every [facility] (COUMADIN) 01-11 91Wednesday, Colleg e 4 MG tablet 00:00: Wednesday, of Wednesday. Medicin e warfarin 2018-0 Yes [id number] [facility] (COUMADIN) 01-11 ,Sat,Sun Colle ge 3 MG tablet 00:00: of Medicin e warfarin 2018-0 Yes [id number] every [facility] (COUMADIN) 01-11, Colleg e 4 MG tablet 00:00: Wednesday, wednesday. Medicin e warfarin 2018-0 Yes [id number] [facility] (COUMADIN) 01-11 ,Sat,Sun Colle ge 3 MG tablet 00:00: Medicin e warfarin 2018-0 Yes [id number] every [facility] (COUMADIN) 01-11, Colleg e 4 MG tablet 00:00: Wednesday, wednesday. Medicin e warfarin 2018-0 Yes [id number] [facility] (COUMADIN) 01-11 ,Sat,Sun Colle ge 3 MG tablet 00:00: Medicin e warfarin 2018-0 Yes [id number] every [facility] (COUMADIN) 01-11, Colleg e 4 MG tablet 00:00: Wednesday, wednesday. Medicin e warfarin 2018-0 Yes [id number] [facility] (COUMADIN) 01-11 ,Sat,Sun Colle ge 3 MG tablet 00:00: of Medicin e warfarin 2018-0 Yes [id number] every [facility] (COUMADIN) 01-11, Colleg e 4 MG tablet 00:00: Wednesday, wednesday. Medicin e warfarin 2018-0 Yes [id number] [facility] (COUMADIN) 01-11 College 3 MG tablet 00:00: Medicin e warfarin 2018-0 Yes [id number] [facility] (COUMADIN) 01-11 ,Sat,Sun Colle ge 3 MG tablet 00:00: of Medicin e warfarin 2018-0 Yes [id number] every [facility] (COUMADIN) 01-11, Colleg e 4 MG tablet 00:00: Wednesday, wednesday. Medicin e warfarin 2018-0 Yes [id number] [facility] (COUMADIN) 01-11 College 4 MG tablet 00:00: of Medicin e warfarin 2017-0 Yes [id number] [facility] (COUMADIN) 01-11 ,Sat,Sun Colle ge 3 MG tablet 00:00: Medicin e warfarin 2018-0 Yes [id number] every [facility] (COUMADIN) 01-11, Colleg e 4 MG tablet 00:00: Wednesday, wednesday. Medicin e warfarin 2017- Yes [id number] [facility] (COUMADIN) 01-11 ,Sat,Sun Colle ge 3 MG tablet 00:00: Medicin e warfarin 2017- Yes [id number] every [facility] (COUMADIN) 01-11, Colleg e 4 MG tablet 00:00: Wednesday, wednesday. Medicin e warfarin 2017- Yes [id number] [facility] (COUMAD[facility]) 01-11 ,Sat,Sun [facility] 3 MG tablet 00:00: Medicin e warfarin 2017- Yes [id number] [facility] ([facility]) 01-11, [facility] 4 MG tablet 00:00: Wednesday, wednesday. Medicin e warfarin 2017- 2020- No [id number] every [facility] ([facility]) 01-11, [facility] 4 MG tablet 00:00: 00:Wednesday, of 00 :Wednesday. Medicin e warfarin 2017-0 2020- No [id number] [facility] ([facility]) 01-11 ,Sat,Sun Danny [facility] 3 MG tablet 00:00: 00:00 of 00 :00 Medicin e pantoprazol 2017-0 Yes [facility] 01-08 [place] ([facility]ON[facility]) 00:00: of 40 MG 00 Medicin tablet e pantoprazol 2017- Yes [id number] [facility] [facility] bedtime. [facility] (PROTONIX) 00:00: of 40 MG 00 Medicin tablet e rosuvastati Yes [id number] [facility] n (CRESTOR) 01-[address] [place] [address] 20 MG 00:00: of tablet 00 Medicin e pantoprazol 2018-0 Yes [id number] at [facility] 01-08 bedtime. [facility] (PROTONIX) 00:00: of 40 MG 00 Medicin tablet e rosuvastati 2018-0 Yes [id number] [facility] n (CRESTOR) 01-[address] [place] [address] 20 MG 00:00: of tablet 00 Medicin e pantoprazol 2018-0 Yes [id number] at [facility] 01-08 bedtime. [facility] (PROTONIX) 00:00: of 40 MG 00 Medicin tablet e rosuvastati 2018-0 Yes [id number] [facility] n (CRESTOR) 01-[address] [place] [address] 20 MG 00:00: of tablet 00 Medicin e pantoprazol 2018-0 Yes [id number] at [facility] 01-08 bedtime. [facility] (PROTONIX) 00:00: of 40 MG 00 Medicin tablet e rosuvastati 2018-0 Yes [id number] [facility] n (CRESTOR) 01-[address] [place] [address] 20 MG 00:00: of tablet 00 Medicin e pantoprazol 2018-0 Yes [id number] at [facility] 01-08 bedtime. [facility] (PROTONIX) 00:00: of 40 MG 00 Medicin tablet e rosuvastati 2018-0 Yes [id number] [facility] n (CRESTOR) 01-[address] [place] [address] 20 MG 00:00: of tablet 00 Medicin e pantoprazol 2018-0 Yes [id number] at [facility] 01-08 bedtime. [facility] (PROTONIX) 00:00: of 40 MG 00 Medicin tablet e rosuvastati 2018-0 Yes [id number] [facility] n (CRESTOR) 01-[address] [place] [address] 20 MG 00:00: of tablet 00 Medicin e pantoprazol 2018-0 Yes [id number] at [facility] 01-08 bedtime. [facility] (PROTONIX) 00:00: of 40 MG 00 Medicin tablet e rosuvastati 2018-0 Yes [id number] [facility] n (CRESTOR) 01-[address] [place] [address] 20 MG 00:00: of tablet 00 Medicin e pantoprazol 2018-0 Yes [id number] [facility] 01-[address] [place] [address] (PROTONIX) 00:00: of 40 MG 00 Medicin tablet e rosuvastati 2018-0 Yes [id number] [facility] n (CRESTOR) 01-[address] [place] [address] 20 MG 00:00: of tablet 00 Medicin e pantoprazol 2018-0 2020- No [id number] at [facility] 01-08 [facility] bedtime. [facility] (PROTONIX) 00:00: 00:00 of 40 MG 00 :00 Medicin tablet e rosuvastati 2017-0 2020- No [id number] [facility] n (CRESTOR) 01-[address] [place] [address] 20 MG 00:00: 00:00 of tablet 00 :00 Medicin e pantoprazol 2017-0 2020- No [id number] at [facility] 01-08 [facility] bedtime. [facility] (PROTONIX) 00:00: 00:00 of 40 MG 00 :00 Medicin tablet e rosuvastati 2018-0 2020- No [id number] [facility] n (CRESTOR) 01-[address] [place] [address] 20 MG 00:00: 00:00 of tablet 00 :00 Medicin e levothyroxi 2018-0 Yes [id number] [facility] 2-[address] [place] [address] (SYNTHROID) 00:00: of 125 MCG 00 Medicin tablet e levothyroxi 2018-0 Yes [id number] [facility] 2-[address] [place] [address] (SYNTHROID) 00:00: of 125 MCG 00 Medicin tablet e levothyroxi 2018-0 Yes [id number] [facility] 2-[address] [place] [address] (SYNTHROID) 00:00: of 125 MCG 00 Medicin tablet e levothyroxi 2018-0 Yes [id number] [facility] 2-[address] [place] [address] (SYNTHROID) 00:00: of 125 MCG 00 Medicin tablet e levothyroxi 2018-0 Yes [id number] [facility] 2-[address] [place] [address] (SYNTHROID) 00:00: of 125 MCG 00 Medicin tablet e levothyroxi 2018-0 Yes [id number] [facility] 2-[address] [place] [address] (SYNTHROID) 00:00: of 125 MCG 00 Medicin tablet e levothyroxi 2018-0 Yes [id number] [facility] 2-[address] [place] [address] (SYNTHROID) 00:00: of 125 MCG 00 Medicin tablet e levothyroxi 2018-0 Yes [id number] [facility] 2-27 [address] [employer] (SYNTHROID) 00:00: of 125 MCG 00 Medicin tablet e levothyroxi 2018-0 Yes [id number] [facility] 2-27 [address] [employer] (SYNTHROID) 00:00: of 125 MCG 00 Medicin tablet e levothyroxi 2018-0 Yes [id number] [facility] 2-27 [employer] [employer] (SYNTHROID) 00:00: of 125 MCG 00 Medicin tablet e levothyroxi 2018-0 Yes [id number] [facility] 2-27 [facility] [employer] (SYNTHROID) 00:00: of 125 MCG 00 Medicin tablet e levothyroxi 2018-0 Yes [id number] [facility] 2-27 91 [facility] (SYNTHROID) 00:00: of 125 MCG 00 Medicin tablet e levothyroxi 2018-0 Yes [id number] [facility] 2-27 91 [facility] (SYNTHROID) 00:00: of 125 MCG 00 Medicin tablet e levothyroxi 2018-0 Yes [id number] [facility] 2-27 [facility] (SYNTHROID) 00:00: of 125 MCG 00 Medicin tablet e levothyroxi 2018-0 Yes [id number] [facility] 2-27 91 [facility] (SYNTHROID) 00:00: of 125 MCG 00 Medicin tablet e levothyroxi 2018-0 Yes [id number] [facility] 2-27 [employer] [employer] (SYNTHROID) 00:00: of 125 MCG 00 Medicin tablet e levothyroxi 2018-0 Yes [id number] [facility] 2-27 [employer] [employer] (SYNTHROID) 00:00: of 125 MCG 00 Medicin tablet e levothyroxi 2018-0 Yes [id number] [facility] 2-27 [employer] [employer] (SYNTHROID) 00:00: of 125 MCG 00 Medicin tablet e levothyroxi 2018-0 Yes [id number] [facility] 2-27 [facility] [employer] (SYNTHROID) 00:00: of 125 MCG 00 Medicin tablet e levothyroxi 2018-0 Yes [id number] [facility] 2-27 [facility] [employer] (SYNTHROID) 00:00: of 125 MCG 00 Medicin tablet e levothyroxi 2018-0 Yes [id number] [facility] 2-[address] [place] [address] (SYNTHROID) 00:00: of 125 MCG 00 Medicin tablet e levothyroxi Yes [id number] [facility] 2- [address] [place] [address] (SYNTHROID) 00:00: of 125 MCG 00 Medicin tablet e levothyroxi Yes [id number] [facility] 2-[address] [place] [address] (SYNTHROID) 00:00: of 125 MCG 00 Medicin tablet e levothyroxi Yes [id number] [facility] 2- [address] [place] [address] (SYNTHROID) 00:00: of 125 MCG 00 Medicin tablet e hydrocodone Yes 1 tab, PO, [facility] -acetaminop 5-08 Q4H, PRN Danny ege hen (NORCO) 00:00: Pain Score of 5-325 mg 00 1-3, 0 Medicin tablet Refill(s) e hydrocodone Yes 1 tab, PO, [facility] -acetaminop 5-08 Q4H, PRN Danny ege hen (NORCO) 00:00: Pain Score of 5-325 mg 00 1-3, 0 Medicin tablet Refill(s) e hydrocodone Yes 1 tab, PO, [facility] -acetaminop 5-08 Q4H, PRN Danny ege [facility] (NORCO) 00:00: Pain Score of 5-325 mg 00 1-3, 0 Medicin tablet Refill(s) e hydrocodone 2020- No 1 tab, PO, [facility] -acetaminop 5-08 11-18 Q4H, PRN Col lege hen (NORCO) 00:00: 00:00 Pain Score of 5-325 mg 00 :00 1-3, 0 Medicin tablet Refill(s) e hydrocodone 2020- No 1 tab, PO, [facility] -acetaminop 5-08 11-18 Q4H, PRN [facility] (NORCO) 00:00: 00:00 Pain Score of 5-325 mg 00 :00 1-3, 0 Medicin tablet Refill(s) e ezetimibe-s Yes 1 tablet [facility] imvastatin 02-09 [facility] (VYTORIN) 00:00: of 10-40 MG 00 Medicin per tablet e ezetimibe-s Yes 1 tablet [facility] imvast[facility] 02-09 [facility] (VYTORIN) 00:00: of 10-40 MG 00 Medicin per tablet e ezetimibe-s Yes 1 tablet [facility] imvastatin 02-09 [facility] (VYTORIN) 00:00: of 10-40 MG 00 Medicin per tablet e ezetimibe-s 2020- No 1 tablet B [facility] imvastatin 02-09 [facility] (VYTORIN) 00:00: 00:00 of 10-40 MG 00 :00 Medicin per tablet e ezetimibe-s 2020- No 1 tablet B [facility] imvastatin 02-09 [facility] (VYTORIN) 00:00: 00:00 of 10-40 MG 00 :00 Medicin per tablet e Exenatide Exenatide 2018- No Twice A [facility] (Byetta) 5 (Byetta) 5 06-05 Day Elena kes Mcg/0.02 Ml Mcg/0.02 Ml 00:00 Patient PEN.INJCTR PEN.INJCTR :00 [facility] Hyoscyamine Hyoscyamine 2018- No [facility] Sulfate Sulfate 06-05 Daily [facility] (Levsin) (Levsin) 00:00 Patien t 0.125 Mg 0.125 Mg :00 Medical TABLET TABLET Center Levothyroxi Levothyroxi 2018- No [address] [facility] ne Sodium ne Sodium 06-05 6:30AM Elena kes (Synthroid) (Synthroid) 00:00 Patient 125 Mcg TAB 125 Mcg TAB :00 M [facility] Lovenox Lovenox 2018- No 80 [facility] Meclizine Meclizine 2018- No 12.[address] [facility] H[facility] Hcl 06-05 [facility] 00:[facility] :00 [facility] Ondansetron Ondansetron 2018- No [address] [facility] (Zofran (Zofran 06-05 [facility] Odt) 4 Mg Odt) 4 Mg 00:00 Ev ent TAB.RAPDIS TAB.RAPDIS :00 [facility] [place] Pantoprazol Pantoprazol 2018- No [address] [facility] e Sodium e Sodium 06-05 [facility] (Protonix) (Protonix) 00:00 Pa tient 40 Mg 40 Mg :00 Medical TABLET. TABLET.DR Siobhan manriquez Promethazin Promethazin 2018- No 12.[address] [facility] Hcl e Hcl -05 [facility] 00:00 Patient :00 [facility] Rosuvastati Rosuvastati 2018- No [address] [facility] [facility] n Calcium n Calcium 06-05 [facility] (Crestor) (Crestor) 00:00 Ev ent 20 Mg 20 Mg :00 Medical TABLET TABLET Center Sertraline Sertraline No [address] [facility] -05 [facility] 00:00 Patient :00 [facility] Sucralfate Sucralfate 2018- No [address] [facility] -05 Day [facility] 00:[facility] Patient :00 [facility] Warfarin Warfarin 2018- No 4 Daily [facility] Sodium Sodium 03-15 [facility] 00:00 Patient :00 [facility] Carvedilol Carvedilol 2018- No 12.[address] [facility] -05 [facility] 00:[facility] Patient :00 [facility] Cholestyram Cholestyram 2018- No [address] [facility] ine (With ine (With 03-15 [facility] Sugar) Sugar) 00:00 Patient (Questran (Questran :00 Medic al Packet) 4 Packet) 4 Siobhan manriquez Gm PACKET Gm PACKET Folic Acid Folic Acid 2017- No [facility]05 [facility] 00:[facility] Patient :00 [facility] Glimepiride Glimepiride 2017- No [address] [facility] 05-05 [facility] 00:[facility] Patient :00 [facility] Lisinopril Lisinopril 2017- No [address] 05-05 [facility] 00:[facility] Patient :00 [facility] Pravastatin Pravastatin No [address] Sodium Sodium 05-05 [facility] 00:00 Patient :00 [facility] Thyroid Thyroid 2017- No [address] (Chandler (Chandler 05-05 [facility] Thyroid) 90 Thyroid) 90 00:00 Patient Mg TABLET Mg TABLET :00 Medic al Center Duloxetine Duloxetine No [address] [facility] Hcl 05-05 [facility] (Cymbalta) (Cymbalta) 00:00 Pa tient 60 Mg 60 Mg :00 Medical CAPSULE. CAPSULE.DR Ramses wren Enoxaparin Enoxaparin No [address] Sodium Sodium 11-15 [facility] (Lovenox) (Lovenox) 00:00 Ev ent 120 Mg/0.8 120 Mg/0.8 :00 Med ical Ml Ml Center DISP.SYRIN DISP.SYRIN Cavedilol Cavedilol 2011- No [facility] 03-14 [facility] :00 [facility] Immunizations Ordered Immunization Filled Immunization Date Status Commen ts Source Name Name Influenza Quad-PF 2021-07-20 [address] [facility] 00:00:00 of Medicine Influenza Quad-PF 2021-07-20 Completed [facility] 00:00:00 of Medicine Influenza Quad-PF 2021-07-20 Completed [facility] 00:00:00 of Medicine Influenza Quad-PF 2021-07-20 Completed [facility] 00:00:00 of Medicine Influenza Quad-PF 2021-07-20 Completed [facility] 00:00:00 of Medicine Pfizer SARS-CoV-2 2020-12-26 Completed [facility] Vaccination 00:00:00 of Medicine Pfizer SARS-CoV-2 2020-12-26 Completed [facility] Vaccination 00:00:00 of Medicine Pfizer SARS-CoV-2 2020-12-26 Completed [facility] Vaccination 00:00:00 of Medicine Pfizer SARS-CoV-2 2020-12-26 Completed [facility] Vaccination 00:00:00 of Medicine Pfizer SARS-CoV-2 2020-12-26 Completed [facility] Vaccination 00:00:00 of Medicine Pfizer SARS-CoV-2 2020-12-26 Completed [facility] Vaccination 00:00:00 of Medicine Pfizer SARS-CoV-2 2020-12-26 Completed [facility] Vaccination 00:00:00 of Medicine Pfizer SARS-CoV-2 2020-12-26 Completed [facility] Vaccination 00:00:00 of Medicine Pfizer SARS-CoV-2 2020-12-26 Completed [facility] Vaccination 00:00:00 of Medicine Pfizer SARS-CoV-2 2020-12-26 Completed [facility] Vaccination 00:00:00 of Medicine Pfizer SARS-CoV-2 2020-12-26 Completed [facility] Vaccination 00:00:00 of Medicine Pfizer SARS-CoV-2 2020-12-26 Completed [facility] Vaccination 00:00:00 of Medicine Zoster Recombinant 2020-07-29 Completed [facility] 00:00:00 of Medicine Zoster Recombinant 2020-07-29 Completed [facility] 00:00:00 of Medicine Zoster Recombinant 2020-07-29 Completed [facility] 00:00:00 of Medicine Zoster Recombinant 2020-07-29 Completed [facility] 00:00:00 of Medicine Zoster Recombinant 2020-07-29 Completed [facility] 00:00:00 of Medicine Zoster Recombinant 2020-07-29 Completed [facility] 00:00:00 of Medicine Zoster Recombinant 2020-07-29 Completed [facility] 00:00:00 of Medicine Zoster Recombinant 2020-07-29 Completed [facility] 00:00:00 of Medicine Zoster Recombinant 2020-07-29 Completed [facility] 00:00:00 of Medicine Zoster Recombinant 2020-07-29 Completed [facility] 00:00:00 of Medicine Hepatitis B 2020-06-04 Completed [facility] of Medicine Hepatitis B 2020-06-04 Completed [facility] 00:00:00 of Medicine Hepatitis B 2020-06-04 Completed [facility] 00:00:00 of Medicine Hepatitis B 2020-06-04 Completed [facility] 00:00:00 of Medicine Hepatitis B 2020-06-04 Completed [facility] 00:00:00 of Medicine Hepatitis B 2020-06-04 Completed [facility] 00:00:00 of Medicine Hepatitis B 2020-06-04 Completed [facility] 00:[facility]:00 of Medicine Hepatitis B 2020-06-04 Completed [facility] 00:00:00 of Medicine Hepatitis B 2020-06-04 [facility] 00:[facility]:00 of Medicine Hepatitis B 2020-06-04 [facility] 00:[facility]:00 of Medicine Influenza (whole) 2020-05-21 Completed [facility] 00:00:00 of Medicine Influenza (whole) 2020-05-21 Completed [facility] 00:00:00 of Medicine Influenza (whole) 2020-05-21 Completed [facility] 00:00:00 of Medicine Influenza (whole) 2020-05-21 Completed [facility] 00:00:00 of Medicine Influenza (whole) 2020-05-21 Completed [facility] 00:00:00 of Medicine Influenza (whole) 2020-05-21 Completed [facility] 00:00:00 of Medicine Influenza (whole) 2020-05-21 Completed [facility] 00:00:00 of Medicine Influenza (whole) 2020-05-21 Completed [facility] 00:00:00 of Medicine Influenza (whole) 2020-05-21 Completed [facility] 00:00:00 of Medicine Influenza (whole) 2020-05-21 Completed [facility] 00:00:00 of Medicine Influenza Virus 2020-05-21 Completed [facility] Vaccine - Whole 00:00:00 [facility] Influenza Virus 2020-05-21 Completed [facility] of Vaccine - Whole 00:00:00 [facility] Influenza Virus 2020-05-21 Completed [facility] of Vaccine - Whole 00:00:00 [facility] Influenza Virus 2020-05-21 Completed [facility] of Vaccine - Whole 00:00:00 [facility] Influenza Virus 2020-05-21 Completed [facility] of Vaccine - Whole 00:00:00 [facility] Influenza Quad-PF 2020-05-19 Completed [facility] 00:00:00 of Medicine Influenza Quad-PF 2020-05-19 Completed [facility] 00:00:00 of Medicine Influenza Quad-PF 2020-05-19 Completed [facility] 00:00:00 of Medicine Influenza Quad-PF 2020-05-19 Completed [facility] 00:00:00 of Medicine Influenza Quad-PF 2020-05-19 Completed [facility] 00:00:00 of Medicine Influenza Quad-PF 2020-05-19 Completed [facility] 00:00:00 of Medicine Influenza Quad-PF 2020-05-19 Completed [facility] 00:00:00 of Medicine Influenza Quad-PF 2020-05-19 Completed [facility] 00:00:00 of Medicine Influenza Quad-PF 2020-05-19 Completed [facility] 00:00:00 of Medicine Influenza Quad-PF 2020-05-19 Completed [facility] 00:00:00 of Medicine Influenza Quad-PF 2020-05-19 Completed [facility] 00:00:00 of Medicine Influenza Quad-PF 2020-05-19 Completed [facility] 00:00:00 of Medicine Influenza Quad-PF 2020-05-19 Completed [facility] 00:00:00 of Medicine Influenza Quad-PF 2020-05-19 Completed [facility] 00:00:00 of Medicine Influenza Quad-PF 2020-05-19 Completed [facility] 00:00:00 of Medicine Pneumococcal 2020-05-06 Completed [facility] ge 13-valent Conjugate 00:00:00 of Me dicine Vaccine Pneumococcal 2020-05-06 Completed [facility] 13-valent Conjugate 00:00:00 of Me dicine Vaccine Pneumococcal 2020-05-06 Completed [facility] 13-valent Conjugate 00:00:00 of Me dicine Vaccine Pneumococcal 2020-05-06 Completed [facility] Colle ge 13-valent Conjugate 00:00:00 of Me dicine Vaccine Pneumococcal 2020-05-06 Completed [facility] Colle ge 13-valent Conjugate 00:00:00 of Me dicine Vaccine Pneumococcal 2020-05-06 Completed [facility] ge 13-valent Conjugate 00:00:00 of Me dicine Vaccine Hepatitis B 2020-05-06 [facility] Medicine Pneumococcal 2020-05-06 Completed [facility] 13-valent Conjugate 00:00:00 of Me dicine Vaccine Hepatitis B 2020-05-06 Completed [facility] 00:00:00 of Medicine Pneumococcal 2020-05-06 Completed [facility] ge 13-valent Conjugate 00:00:00 of Me dicine Vaccine Hepatitis B 2020-05-06 Completed [facility] 00:00:00 of Medicine Pneumococcal 2020-05-06 [...] Me dicine Vaccine Hepatitis B 2020-05-06 Completed [facility] 00:00:00 of Medicine Pneumococcal 2020-05-06 Completed [facility] 13-valent Conjugate 00:00:00 of Me dicine Vaccine Hepatitis B 2020-05-06 [facility] of Medicine Pneumococcal 2020-05-06 Completed [facility] 13-valent Conjugate 00:00:00 of Me dicine Vaccine Hepatitis B 2020-05-06 [facility] 00:[facility] of Medicine Pneumococcal 2020-05-06 Completed [facility] Colle ge 13-valent Conjugate 00:00:00 of Me dicine Vaccine Hepatitis B 2020-05-06 Completed [facility] 00:00:00 of Medicine Pneumococcal 2020-05-06 Completed [facility] Colle ge 13-valent Conjugate 00:00:00 of Me dicine Vaccine Hepatitis B 2020-05-06 Completed [facility] 00:00:00 of Medicine Pneumococcal 13 2020-05-06 Completed [facility] of Conjugate, PCV13 00:00:00 [facility] dical (Prevnar 13) Branch HEPLISAV HEP B, ADULT 2020-05-06 Completed Uni versity of 2 DOSE, IM 00:00:00 [facility] Pneumococcal 13 2020-05-06 Completed [facility] of Conjugate, PCV13 00:00:00 [facility] dical (Prevnar 13) Branch HEPLISAV HEP B, ADULT 2020-05-06 Completed Uni versity of 2 DOSE, IM 00:00:00 [facility] Pneumococcal 13 2020-05-06 Completed [facility]it [facility] of Conjugate, PCV13 00:00:00 [facility] dical (Prevnar 13) Branch HEPLISAV HEP B, ADULT 2020-05-06 Completed Uni versity of 2 DOSE, IM 00:00:00 [facility] Pneumococcal 13 2020-05-06 Completed [facility]it y of Conjugate, PCV13 00:00:00 [facility] dical (Prevnar 13) Branch HEPLISAV HEP B, ADULT 2020-05-06 Completed Uni versity of 2 DOSE, IM 00:00:00 [facility] Pneumococcal 13 2020-05-06 Completed Universit y of Conjugate, PCV13 00:00:00 [facility] dical (Prevnar 13) Branch HEPLISAV HEP B, ADULT 2020-05-06 Completed Uni versity of 2 DOSE, IM 00:00:00 [facility] Pneumococcal 2020-04-30 Completed [facility] Colle ge Polysaccharide 00:00:00 of Medicin e Hepatitis B 2020-04-30 [facility]pleted [facility] 00:[facility] of Medicine Pneumococcal 2020-04-30 Completed [facility] Colle ge Polysaccharide 00:00:00 of Medicin e Hepatitis B 2020-04-30 Completed [facility] 00:00:00 of Medicine Pneumococcal 2020-04-30 Completed [facility] Polysaccharide 00:00:00 of Medicin e Hepatitis B 2020-04-30 Completed [facility] 00:00:00 of Medicine Pneumococcal 2020-04-30 Completed [facility] Colle ge Polysaccharide 00:00:00 of Medicin e Hepatitis B 2020-04-30 Completed [facility] 00:00:00 of Medicine Pneumococcal 2020-04-30 Completed [facility] Polysaccharide 00:00:00 of Medicin e Hepatitis B 2020-04-30 Completed [facility] 00:00:00 of Medicine Pneumococcal 2020-04-30 Completed [facility] Colle ge Polysaccharide 00:00:00 of Medicin e Hepatitis B 2020-04-30 [facility]pleted [facility] 00:00:00 of Medicine Pneumococcal 2020-04-30 Completed [facility] Colle ge Polysaccharide 00:00:00 of Medicin e Hepatitis B 2020-04-30 Completed [facility] 00:00:00 of Medicine Pneumococcal 2020-04-30 Completed [facility] Colle ge Polysaccharide 00:00:00 of Medicin e Hepatitis B 2020-04-30 Completed [facility] 00[facility]00:00 of Medicine Pneumococcal 2020-04-30 Completed [facility] Colle ge Polysaccharide 00:00:00 of Medicin e Hepatitis B 2020-04-30 Completed [facility] 00:00:00 of Medicine Pneumococcal 2020-04-30 Completed [facility] Colle ge Polysaccharide 00:00:00 of Medicin e Hepatitis B 2020-04-30 Completed [facility] 00:[facility]:00 of Medicine Influenza (whole) 2019-08-11 [address] [facility] 00:00:00 of Medicine Influenza (whole) 2019-08-11 Completed [facility] 00:00:00 of Medicine Influenza (whole) 2019-08-11 Completed [facility] 00:00:00 of Medicine Influenza (whole) 2019-08-11 Completed [facility] 00:00:00 of Medicine Influenza (whole) 2019-08-11 Completed [facility] 00:00:00 of Medicine Influenza (whole) 2019-08-11 Completed [facility] 00:00:00 of Medicine Influenza (whole) 2019-08-11 Completed [facility] 00:00:00 of Medicine Influenza (whole) 2019-08-11 Completed [facility] 00:00:00 of Medicine Influenza (whole) 2019-08-11 Completed [facility] 00:00:00 of Medicine Influenza (whole) 2019-08-11 Completed [facility] 00:00:00 of Medicine Influenza (whole) 2019-08-11 Completed [facility] 00:00:00 of Medicine Influenza (whole) 2019-08-11 Completed [facility] 00:00:00 of Medicine Influenza (whole) 2019-08-11 Completed [facility] 00:00:00 of Medicine Influenza (whole) 2019-08-11 Completed [facility] 00:00:00 of Medicine Influenza (whole) 2019-08-11 Completed [facility] 00:00:00 of Medicine Influenza (whole) 2019-08-11 Completed [facility] 00:00:00 of Medicine Influenza (whole) 2019-08-11 Completed [facility] 00:00:00 of Medicine Influenza (whole) 2019-08-11 Completed [facility] 00:00:00 of Medicine Influenza (whole) 2019-08-11 Completed [facility] 00:00:00 of Medicine Influenza (whole) 2019-08-11 Completed [facility] 00:00:00 of Medicine Influenza (whole) 2019-08-11 Completed [facility] 00:00:00 of Medicine Influenza (whole) 2019-08-11 Completed [facility] 00:00:00 of Medicine Influenza (whole) 2019-08-11 Completed [facility] 00:00:00 of Medicine Influenza (whole) 2019-08-11 Com[address] [facility] 00:00:00 of Medicine Influenza (whole) 2019-08-11 Completed [facility] 00:00:00 of Medicine Influenza (whole) 2019-08-11 Completed [facility] 00:00:00 of Medicine Influenza (whole) 2019-08-11 Completed [facility] 00:00:00 of Medicine Influenza (whole) 2019-08-11 Completed [facility] 00:00:00 of Medicine Influenza (whole) 2019-08-11 Completed [facility] 00:00:00 of Medicine Influenza (whole) 2019-08-11 Completed [facility] 00:00:00 of Medicine Influenza (whole) 2019-08-11 Completed [facility] 00:00:00 of Medicine Influenza (whole) 2019-08-11 Completed [facility] 00:00:00 of Medicine Influenza (whole) 2019-08-11 Completed [facility] 00:00:00 of Medicine Zoster Recombinant 2019-08-05 Completed [facility] 00:00:00 of Medicine Zoster Recombinant 2019-08-05 Completed [facility] 00:00:00 of Medicine Zoster Recombinant 2019-08-05 Completed [facility] 00:00:00 of Medicine Zoster Recombinant 2019-08-05 Completed [employer] 00:00:00 of Medicine Zoster [facility]com[facility] 2019-08-05 [facility] Zoster Recombinant 2019-08-05 Completed [employer] 00:00:00 of Medicine Zoster Recombinant 2019-08-05 Completed [employer] 00:00:00 of Medicine Zoster Recombinant 2019-08-05 [facility] Zoster Recombinant 2019-08-05 Completed [employer] 00:00:00 of Medicine Zoster Recombinant 2019-08-05 Completed [facility] 00:00:00 of Medicine Zoster Recombinant 2019-08-05 Completed [facility] 00:00:00 of Medicine Zoster Recombinant 2019-08-05 Completed [facility] 00:00:00 of Medicine Zoster Recombinant 2019-08-05 Completed [facility] 00:00:00 of Medicine Zoster Recombinant 2019-08-05 Completed [facility] 00:00:00 of Medicine Zoster Recombinant 2019-08-05 Completed [facility] 00:00:00 of Medicine Zoster Recombinant 2019-08-05 Completed [facility] 00:00:00 of Medicine Zoster Recombinant 2019-08-05 Completed [facility] 00:00:00 of Medicine Zoster Recombinant 2019-08-05 Completed [facility] 00:00:00 of Medicine Zoster Recombinant 2019-08-05 Completed [facility] 00:00:00 of Medicine Zoster Recombinant 2019-08-05 Completed [facility] 00:00:00 of Medicine Zoster Recombinant 2019-08-05 [facility] Zoster Recombinant 2019-08-05 [facility] Zoster Recombinant 2019-08-05 [facility] Zoster Recombinant 2019-08-05 [facility] Zoster Recombinant 2019-08-05 Completed [facility] 00:00:00 of Medicine Zoster Recombinant 2019-08-05 [facility] Zoster Recombinant 2019-08-05 [facility] Zoster Recombinant 2019-08-05 [facility] Zoster Recombinant 2019-08-05 [facility] Zoster Recombinant 2019-08-05 [facility] Zoster Recombinant 2019-08-05 [facility] Medicine Zoster Recombinant 2019-08-05 Completed [facility] 00:00:00 of Medicine Zoster Recombinant 2019-08-05 Completed [facility] 00:00:00 of Medicine Influenza Quad-PF 2019-07-20 Completed [facility] 00:00:00 of Medicine Influenza Quad-PF 2019-07-20 Completed [facility] 00:00:00 of Medicine Influenza Quad-PF 2019-07-20 Completed [facility] 00:00:00 of Medicine Influenza Quad-PF 2019-07-20 Completed [facility] 00:00:00 of Medicine Influenza Quad-PF 2019-07-20 Completed [facility] 00:00:00 of Medicine Influenza Quad-PF 2019-07-20 Completed [facility] 00:00:00 of Medicine Influenza Quad-PF 2019-07-20 Completed [facility] 00:00:00 of Medicine Influenza Quad-PF 2019-07-20 Completed [facility] 00:00:00 of Medicine Influenza Quad-PF 2019-07-20 Completed [facility] 00:00:00 of Medicine Influenza Quad-PF 2019-07-20 Completed [facility] 00:00:00 of Medicine Influenza Quad-PF 2019-07-20 Completed [facility] 00:00:00 of Medicine Influenza Quad-PF 2019-07-20 Completed [facility] 00:00:00 of Medicine Influenza Quad-PF 2019-07-20 Completed [facility] 00:00:00 of Medicine Influenza Quad-PF 2019-07-20 Completed [facility] 00:00:00 of Medicine Influenza Quad-PF 2019-07-20 Completed [facility] 00:00:00 of Medicine Influenza Quad-PF 2019-07-20 Completed [facility] 00:00:00 of Medicine Influenza Quad-PF 2019-07-20 Completed [facility] 00:00:00 of Medicine Influenza Quad-PF 2019-07-20 Completed [facility] 00:00:00 of Medicine Influenza Quad-PF 2019-07-20 Completed [facility] 00:00:00 of Medicine Influenza Quad-PF 2019-07-20 Completed [facility] 00:00:00 of Medicine Influenza Quad-PF 2019-07-20 Completed [facility] 00:00:00 of Medicine Influenza Quad-PF 2019-07-20 Completed [facility] 00:00:00 of Medicine Influenza Quad-PF 2019-07-20 Completed [facility] 00:00:00 of Medicine Influenza Quad-PF 2019-07-20 Completed [facility] 00:00:00 of Medicine Influenza Quad-PF 2019-07-20 Completed [employer] 00:00:00 of Medicine Influenza Quad-PF 2019-07-20 Completed [facility] 00:00:00 of Medicine Influenza Quad-PF 2019-07-20 Completed [facility] 00:00:00 of Medicine Influenza Quad-PF 2019-07-20 Completed [facility] 00:00:00 of Medicine Influenza Quad-PF 2019-07-20 Completed [facility] 00:00:00 of Medicine Influenza Quad-PF 2019-07-20 Completed [facility] 00:00:00 of Medicine Influenza Quad-PF 2019-07-20 Completed [facility] 00:00:00 of Medicine Influenza Quad-PF 2019-07-20 Completed [facility] 00:00:00 of Medicine Influenza Quad-PF 2019-07-20 Completed [facility] 00:00:00 of Medicine Zoster Live 2019-05-11 Completed [employer] 00:00:00 of Medicine Zoster Live 2019-05-11 Completed [facility] 00:00:00 of Medicine Zoster Live 2019-05-11 Completed [employer] 00:00:00 of Medicine Zoster Live 2019-05-11 Completed [facility] 00:00:00 of Medicine Zoster Live 2019-05-11 Completed [employer] 00:00:00 of Medicine Zoster Live 2019-05-11 Completed [employer] 00:00:00 of Medicine Zoster Live 2019-05-11 Completed [facility] 00:00:00 of Medicine Zoster Live 2019-05-11 Completed [facility] 00:00:00 of Medicine Zoster Live 2019-05-11 Completed [facility] 00:00:00 of Medicine Zoster Live 2019-05-11 Completed [facility] 00:00:00 of Medicine Zoster(Zostavax)(Rincon 2019-05-11 Completed [facility]) 00:00:00 [facility] Zoster(Zostavax)(Rincon 2019-05-11 Completed [facility]) 00:00:00 [facility] Zoster(Zostavax)(Rincon 2019-05-11 Completed [facility]) 00:00:00 [facility] Zoster(Zostavax)(Rincon 2019-05-11 Completed [facility]) 00:00:00 [facility] Zoster(Zostavax)(Rincon 2019-05-11 Completed [facility]) 00:00:00 [facility] Pneumococcal 2019-04-27 Completed [facility] Polysaccharide 00:00:00 of Medicin quintin Zoster Live 2019-04-27 Completed [employer] 00:00:00 of Medicine Pneumococcal 2019-04-27 Completed [facility] Polysaccharide 00:00:00 of Medicin e Zoster Live 2019-04-27 Completed [facility] 00:00:00 of Medicine Pneumococcal 2019-04-27 Completed [facility] 00:00:00 of Medicin e Zoster Live 2019-04-27 Completed [employer] 00:00:00 of Medicine Pneumococcal 2019-04-27 Completed [facility] 00:00:00 of Medicin e Zoster Live 2019-04-27 Completed [employer] 00:00:00 of Medicine Pneumococcal 2019-04-27 Completed [facility] 00:00:00 of Medicin e Zoster Live 2019-04-27 Completed [facility] 00:00:00 of Medicine Pneumococcal 2019-04-27 Completed [facility]ys[facility] 00:00:00 of Medicin e Zoster Live 2019-04-27 Completed [facility] 00:00:00 of Medicine Pneumococcal 2019-04-27 Completed [facility] 00:00:00 of Medicin quintin Zoster Live 2019-04-27 Completed [employer] 00:00:00 of Medicine Pneumococcal 2019-04-27 Completed [facility] 00:00:00 of Medicin e Zoster Live 2019-04-27 Completed [employer] 00:00:00 of Medicine Pneumococcal 2019-04-27 Completed [facility] 00:00:00 of Medicin e Zoster Live 2019-04-27 Completed [facility] 00:00:00 of Medicine Pneumococcal 2019-04-27 Completed [facility] 00:00:00 of Medicin e Zoster Live 2019-04-27 Completed [facility] 00:00:00 of Medicine Pneumococcal 2019-04-27 Completed [facility] 00:00:00 of Medicin e Zoster Live 2019-04-27 Completed [facility] 00:00:00 of Medicine Pneumococcal 2019-04-27 Completed [facility] Polysaccharide 00:00:00 of Medicin quintin Arreola Live 2019-04-27 Completed [facility] 00:00:00 of Medicine Pneumococcal 2019-04-27 Completed [facility] Polysaccharide 00:00:00 of Medicin quintin Arreola Live 2019-04-27 Completed [facility] 00:00:00 of Medicine Pneumococcal 2019-04-27 Completed [facility] Polysaccharide 00:00:00 of Medicin quintin Arreola Live 2019-04-27 Completed [facility] 00:00:00 of Medicine Pneumococcal 2019-04-27 Completed [facility] Polysaccharide 00:00:00 of Medicin quintin Arreola Live 2019-04-27 Completed [employer] 00:00:00 of Medicine Pneumococcal 2019-04-27 Completed [facility] Polys[facility] 00:00:00 of Medicin quintin Arreola Live 2019-04-27 Completed [employer] 00:00:00 of Medicine Pneumococcal 2019-04-27 Completed [facility] 00:00:00 of Medicin quintin Arreola Live 2019-04-27 Completed [facility] 00:00:00 of Medicine Pneumococcal 2019-04-27 Completed [facility] Polysaccharide 00:00:00 of Medicin quintin Arreola Live 2019-04-27 Completed [employer] 00:00:00 of Medicine Pneumococcal 2019-04-27 Completed [facility] 00:00:00 of Medicin quintin Arreola Live 2019-04-27 Completed [facility] 00:00:00 of Medicine Pneumococcal 2019-04-27 Completed [facility] 00:00:00 of Medicin quintin Arreola Live 2019-04-27 Completed [employer] [facility] 00:00:00 of Medicine Pneumococcal 2019-04-27 Completed [facility] 00:00:00 of Medicin quintin Arreola Live 2019-04-27 Completed [facility] 00:00:00 of Medicine Pneumococcal 2019-04-27 Completed [facility] Polysaccharide 00:00:00 of Medicin quintin Arreola Live 2019-04-27 Completed [employer] 00:00:00 of Medicine Pneumococcal 2019-04-27 Completed [facility] Polysaccharide 00:00:00 of Medicin quintin Arreola Live 2019-04-27 Completed [facility] 00:00:00 of Medicine Pneumococcal 2019-04-27 Completed [facility] Polysaccharide 00:00:00 of Medicin quintin Arreola Live 2019-04-27 Completed [facility] 00:00:00 of Medicine Pneumococcal 2019-04-27 Completed [facility] 00:00:00 of Medicin quintin Arreola Live 2019-04-27 Completed [employer] [facility] 00:00:00 of Medicine Pneumococcal 2019-04-27 Completed [facility] Polysaccharide 00:00:00 of Medicin quintin Arreola Live 2019-04-27 Completed [facility] 00:00:00 of Medicine Pneumococcal 2019-04-27 Completed [facility] 00:00:00 of Medicin quintin Arreola Live 2019-04-27 Completed [employer] [facility] 00:00:00 of Medicine Pneumococcal 2019-04-27 Completed [facility] Polysaccharide 00:00:00 of Medicin quintin Arreola Live 2019-04-27 Completed [employer] 00:00:00 of Medicine Pneumococcal 2019-04-27 Completed [facility] Polysaccharide 00:00:00 of Medicin quintin Arreola Live 2019-04-27 Completed [facility] 00:00:00 of Medicine Pneumococcal 2019-04-27 Completed [facility] Polysaccharide 00:00:00 of Medicin quintin Arreola Live 2019-04-27 Completed [employer] 00:00:00 of Medicine Pneumococcal 2019-04-27 Completed [facility] 00:00:00 of Medicin quintin Arreola Live 2019-04-27 Completed [facility] 00:00:00 of Medicine Pneumococcal 2019-04-27 Completed [facility] 00:00:00 of Medicin quintin Arreola Live 2019-04-27 Completed [facility] 00:00:00 of Medicine Pneumococcal 2019-04-27 Completed [facility] 00:00:00 of Medicin quintin Arreola Live 2019-04-27 Completed [employer] 00:00:00 of Medicine Pneumococcal 2019-04-27 Completed [facility] 00:00:00 of Medicin quintin Arreola Live 2019-04-27 Completed [employer] 00:00:00 of Medicine Pneumococcal 2019-04-27 Completed [facility] Polysaccharide 00:00:00 of Medicin quintin Arreola Live 2019-04-27 Completed [facility] 00:00:00 of Medicine Pneumococcal 2019-04-27 Completed [facility] 00:00:00 of Medicin quintin Arreola Live 2019-04-27 Completed [facility] 00:00:00 of Medicine Pneumococcal 2019-04-27 Completed [facility] 00:00:00 of Medicin e Zoster Live 2019-04-27 Completed [facility] 00:00:00 of Medicine Vital Signs [...] WEIGHT 2020-02-21 00:00:00 115.7 kg Systolic blood 2022-06-01 18:17:00 112 mm[Hg] [facility] of pressure Medicine Diastolic blood 2022-06-01 18:17:00 73 mm[Hg] [facility] of pressure Medicine Heart rate 2022-06-01 18:17:00 76 /min [facility] Body height 2022-06-01 18:17:00 170.2 cm [facility] of Medicine Body weight 2022-06-01 18:17:00 113.399 kg [facility] BMI 2022-06-01 18:17:00 39.16 kg/m2 [facility] of Medicine Systolic blood 2021-08-22 14:12:00 122 mm[Hg] [facility] of pressure Medicine Diastolic blood 2021-08-22 14:12:00 74 mm[Hg] [facility] of pressure Medicine Heart rate 2021-08-22 14:12:00 66 /min [facility] Body height 2021-08-22 14:12:00 170.2 cm [facility] Body weight 2021-08-22 14:12:00 111.131 kg [facility] BMI 2021-08-22 14:12:00 38.37 kg/m2 [facility] Systolic blood 2021-08-21 02:23:30 134 mm[Hg] Univer [facility]ity [facility] pressure [facility] Diastolic blood 2021-08-21 02:23:30 70 mm[Hg] Unive rsity of [facility] Heart rate 2021-08-21 02:23:30 78 /min [facility] of [facility] Respiratory rate 2021-08-21 02:23:30 18 /[facility] 2021-08-21 02:23:30 97 /min [facility] Arterial blood by [facility] Pulse oximetry Branch Body temperature 2021-08-20 23:15:00 36.44 Joy [facility] weight 2021-08-20 23:15:00 111.131 kg [facility] BMI 2021-08-20 23:15:00 38.37 kg/m2 [facility] Systolic blood 2021-08-18 17:32:00 155 mm[Hg] [facility] pressure Medicine Diastolic blood 2021-08-18 17:32:00 73 mm[Hg] [facility] pressure Medicine Heart rate 2021-08-18 17:32:00 92 /min [facility] Body height 2021-08-18 17:32:00 170.2 cm [facility] Body weight 2021-08-18 17:32:00 111.131 kg [facility] BMI 2021-08-18 17:32:00 38.37 kg/m2 [facility] Systolic blood 2021-07-21 16:16:00 102 mm[Hg] [facility] pressure Medicine Diastolic blood 2021-07-21 16:16:00 67 mm[Hg] [facility] pressure Medicine Heart rate 2021-07-21 16:16:00 70 /min [facility] Body temperature 2021-07-21 16:16:00 36.28 Joy [facility] Respiratory rate 2021-07-21 16:16:00 16 /min [facility] Body weight 2021-07-21 16:16:00 114.306 kg [facility] BMI 2021-07-21 16:16:00 39.47 kg/m2 [facility] Oxygen saturation in 2021-07-21 16:16:00 95 /min [facility] of Arterial blood by Medicine Pulse oximetry HEIGHT 2021-05-08 06:15:00 167.6 cm WEIGHT 2021-05-08 06:15:00 116.2 kg HEIGHT 2021-05-07 10:05:00 167.6 cm WEIGHT 2021-05-07 10:05:00 111.131 kg Systolic blood 2021-05-01 21:07:00 122 mm[Hg] [facility] pressure Medicine Diastolic blood 2021-05-01 21:07:00 78 mm[Hg] [facility] Medicine Heart rate 2021-05-01 21:07:00 79 /min [facility] Body temperature 2021-05-01 21:07:00 37.06 Joy [facility] Respiratory rate 2021-05-01 21:07:00 16 /min [facility] Body height 2021-05-01 21:07:00 170.2 cm [facility] Body weight 2021-05-01 21:07:00 117.3 kg [facility] BMI 2021-05-01 21:07:00 40.50 kg/m2 [facility] Oxygen saturation in 2021-05-01 21:07:00 98 /min [facility] Arterial blood by Medicine Pulse oximetry Systolic blood 2021-05-01 21:07:00 122 mm[Hg] [facility] Medicine Diastolic blood 2021-05-01 21:07:00 78 mm[Hg] [facility] Medicine Heart rate 2021-05-01 21:07:00 79 /min [facility] Body temperature 2021-05-01 21:07:00 37.06 Joy [facility] Respiratory rate 2021-05-01 21:07:00 16 /min [facility] Body height 2021-05-01 21:07:00 170.2 cm [facility] Body weight 2021-05-01 21:07:00 117.3 kg [facility] BMI 2021-05-01 21:07:00 40.50 kg/m2 [facility] Oxygen saturation in 2021-05-01 21:07:00 98 /min [facility] blood by [facility] Pulse oximetry Systolic blood 2021-04-29 12:45:00 112 mm[Hg] [facility] pressure Medicine Diastolic blood 2021-04-29 12:45:00 74 mm[Hg] [facility] of pressure Medicine Heart rate 2021-04-29 12:45:00 78 /min [facility] Body temperature 2021-04-29 12:45:00 36.17 Joy [facility] Body height 2021-04-29 12:45:00 170.2 cm [facility] Body weight 2021-04-29 12:45:00 115.214 kg [facility] BMI 2021-04-29 12:45:00 39.78 kg/m2 [facility] ol[facility] of Medicine Systolic blood 2021-04-29 12:45:00 112 mm[Hg] [facility] pressure Medicine Diastolic blood 2021-04-29 12:45:00 74 mm[Hg] [facility] pressure Medicine Heart rate 2021-04-29 12:45:00 78 /min [facility] ol[facility] of Medicine Body temperature 2021-04-29 12:45:00 36.17 Joy [facility] Body height 2021-04-29 12:45:00 170.2 cm [facility] Body weight 2021-04-29 12:45:00 115.214 kg [facility] BMI 2021-04-29 12:45:00 39.78 kg/m2 [facility] Body height 2021-04-09 20:41:00 170.2 cm [facility] Body weight 2021-04-09 20:41:00 115.214 kg [facility] BMI 2021-04-09 20:41:00 39.78 kg/m2 [facility] Body height 2021-04-09 20:41:00 170.2 cm [facility] Body weight 2021-04-09 20:41:00 115.214 kg [facility] BMI 2021-04-09 20:41:00 39.78 kg/m2 [facility] HEIGHT 2021-03-27 09:27:00 167.6 cm WEIGHT 2021-03-27 09:27:00 113.263 kg HEIGHT 2021-03-26 09:40:00 167.6 cm WEIGHT 2021-03-26 09:40:00 113.399 kg Systolic blood 2021-03-26 19:17:00 130 mm[Hg] [facility] pressure Medicine Diastolic blood 2021-03-26 19:17:00 66 mm[Hg] [facility] Medicine Heart rate 2021-03-26 19:17:00 82 /min [facility] of Medicine Respiratory rate 2021-03-26 19:17:00 18 /min [facility] Body height 2021-03-26 19:17:00 170.2 cm [facility] Body weight 2021-03-26 19:17:00 115.214 kg [facility] BMI 2021-03-26 19:17:00 39.78 kg/m2 [facility] Systolic blood 2021-03-26 19:17:00 130 mm[Hg] [facility] Medicine Diastolic blood 2021-03-26 19:17:00 66 mm[Hg] [facility] Medicine Heart rate 2021-03-26 19:17:00 82 /min [facility] Respiratory rate 2021-03-26 19:17:00 18 /min [facility] Body height 2021-03-26 19:17:00 170.2 cm [facility] Body weight 2021-03-26 19:17:00 115.214 kg [facility] BMI 2021-03-26 19:17:00 39.78 kg/m2 [facility] Systolic blood 2021-03-24 03:24:00 128 mm[Hg] Univer sity of pressure [facility] Diastolic blood 2021-03-24 03:24:00 73 mm[Hg] Unive rsity of pressure [facility] Heart rate 2021-03-24 03:24:00 92 /min [facility] Body temperature 2021-03-24 03:24:00 36.67 Joy [facility] ers[facility] Respiratory rate 2021-03-24 03:24:00 18 /min [facility] Oxygen saturation in 2021-03-24 03:24:00 95 /min [facility]ial blood by [place] [employer] [facility] Pulse oximetry Branch Body height 2021-03-23 23:41:00 170.2 cm [facility] Body weight 2021-03-23 23:41:00 113.399 kg [facility] BMI 2021-03-23 23:41:00 39.16 kg/m2 [facility] Systolic blood 2021-03-24 03:24:00 128 mm[Hg] Univer sity of pressure [facility] Diastolic blood 2021-03-24 03:24:00 73 mm[Hg] Unive rsity of pressure [facility] Heart rate 2021-03-24 03:24:00 92 /min [facility] Body temperature 2021-03-24 03:24:00 36.67 Joy [facility] Respiratory rate 2021-03-24 03:24:00 18 /min [facility] Oxygen saturation in 2021-03-24 03:24:00 95 /min [facility] blood by [place] [employer] Pulse oximetry Branch Body height 2021-03-23 23:41:00 170.2 cm [facility] Body weight 2021-03-23 23:41:00 113.399 kg [facility] BMI 2021-03-23 23:41:00 39.16 kg/m2 [facility] Systolic blood 2021-02-19 18:25:00 128 mm[Hg] [facility] pressure Medicine Diastolic blood 2021-02-19 18:25:00 70 mm[Hg] [facility] pressure Medicine Heart rate 2021-02-19 18:25:00 92 /min [facility] Body height 2021-02-19 18:25:00 170.2 cm [facility] Body weight 2021-02-19 18:25:00 109.77 kg [facility] BMI 2021-02-19 18:25:00 37.90 kg/m2 [facility] ol[facility] of Medicine Systolic blood 2021-02-19 18:25:00 128 mm[Hg] [facility] pressure Medicine Diastolic blood 2021-02-19 18:25:00 70 mm[Hg] [facility] pressure Medicine Heart rate 2021-02-19 18:25:00 92 /min [facility] Body height 2021-02-19 18:25:00 170.2 cm [facility] Body weight 2021-02-19 18:25:00 109.77 kg [facility] BMI 2021-02-19 18:25:00 37.90 kg/m2 [facility] HEIGHT 2021-01-21 14:21:00 [...] kg Systolic blood 2020-12-19 20:31:00 116 mm[Hg] [facility] pressure Medicine Diastolic blood 2020-12-19 20:31:00 66 mm[Hg] [facility] of pressure Medicine Heart rate 2020-12-19 20:31:00 80 /min [facility] Body height 2020-12-19 20:31:00 170.2 cm [facility] Body weight 2020-12-19 20:31:00 115.384 kg [facility] BMI 2020-12-19 20:31:00 39.84 kg/m2 [facility] Systolic blood 2020-12-19 20:31:00 116 mm[Hg] [facility] pressure Medicine Diastolic blood 2020-12-19 20:31:00 66 mm[Hg] [facility] of pressure Medicine Heart rate 2020-12-19 20:31:00 80 /min [facility] Body height 2020-12-19 20:31:00 170.2 cm [facility] Body weight 2020-12-19 20:31:00 115.384 kg [facility] BMI 2020-12-19 20:31:00 39.84 kg/m2 [facility] Systolic blood 2020-10-01 15:24:00 113 mm[Hg] [facility] pressure Medicine Diastolic blood 2020-10-01 15:24:00 72 mm[Hg] [facility] pressure Medicine Heart rate 2020-10-01 15:24:00 81 /min [facility] Body height 2020-10-01 15:24:00 170.2 cm [facility] Body weight 2020-10-01 15:24:00 116.121 kg [facility] BMI 2020-10-01 15:24:00 40.10 kg/m2 [facility] Systolic blood 2020-10-01 15:24:00 113 mm[Hg] [facility] pressure Medicine Diastolic blood 2020-10-01 15:24:00 72 mm[Hg] [facility] pressure Medicine Heart rate 2020-10-01 15:24:00 81 /min [facility] Body height 2020-10-01 15:24:00 170.2 cm [facility] Body weight 2020-10-01 15:24:00 116.121 kg [facility] BMI 2020-10-01 15:24:00 40.10 kg/m2 [facility] Systolic blood 2020-10-01 13:52:00 118 mm[Hg] [facility] pressure Medicine Diastolic blood 2020-10-01 13:52:00 72 mm[Hg] [facility] pressure Medicine Heart rate 2020-10-01 13:52:00 72 /min [facility] ol[facility] of Medicine Body temperature 2020-10-01 13:52:00 36.11 [facility] Respiratory rate 2020-10-01 13:52:00 16 /min [facility] Body height 2020-10-01 13:52:00 170.2 cm [facility] Body weight 2020-10-01 13:52:00 117.028 kg [facility] Medicine BMI 2020-10-01 13:52:00 40.41 kg/m2 [facility] ol[facility] of Medicine Oxygen saturation in 2020-10-01 13:52:00 98 /min [facility] Arterial blood by Medicine Pulse oximetry Systolic blood 2020-10-01 13:52:00 118 mm[Hg] [facility] pressure Medicine Diastolic blood 2020-10-01 13:52:00 72 mm[Hg] [facility] pressure Medicine Heart rate 2020-10-01 13:52:00 72 /min [facility] Medicine Body temperature 2020-10-01 13:52:00 36.11 [facility] Respiratory rate 2020-10-01 13:52:00 16 /min [facility] Body height 2020-10-01 13:52:00 170.2 cm [facility] Body weight 2020-10-01 13:52:00 117.028 kg [facility] of Medicine BMI 2020-10-01 13:52:00 40.41 kg/m2 [facility] ol[facility] of Medicine Oxygen saturation in 2020-10-01 13:52:00 98 /min [employer] [facility] blood by Medicine Pulse oximetry Systolic blood 2020-09-26 18:56:00 108 mm[Hg] [facility] pressure Medicine Diastolic blood 2020-09-26 18:56:00 71 mm[Hg] [facility] pressure Medicine Heart rate 2020-09-26 18:56:00 75 /min [facility] Medicine Body height 2020-09-26 18:56:00 170.2 cm [facility] Medicine Body weight 2020-09-26 18:56:00 116.121 kg [facility] BMI 2020-09-26 18:56:00 40.10 kg/m2 [facility] of Medicine Systolic blood 2020-09-26 18:56:00 108 mm[Hg] [facility] pressure Medicine Diastolic blood 2020-09-26 18:56:00 71 mm[Hg] [facility] pressure Medicine Heart rate 2020-09-26 18:56:00 75 /min [facility] Medicine Body height 2020-09-26 18:56:00 170.2 cm [facility] Medicine Body weight 2020-09-26 18:56:00 116.121 kg [facility] Medicine BMI 2020-09-26 18:56:00 40.10 kg/m2 [facility] Medicine Systolic blood 2020-09-23 19:29:00 124 mm[Hg] [facility] pressure Medicine Diastolic blood 2020-09-23 19:29:00 74 mm[Hg] [facility] pressure Medicine Heart rate 2020-09-23 19:29:00 85 /min [facility] Medicine Respiratory rate 2020-09-23 19:29:00 18 /min [facility] Body height 2020-09-23 19:29:00 167.6 cm [facility] Body weight 2020-09-23 19:29:00 116.302 kg [facility] Medicine BMI 2020-09-23 19:29:00 41.38 kg/m2 [facility] ol[facility] of Medicine Systolic blood 2020-09-23 19:29:00 124 mm[Hg] [facility] pressure Medicine Diastolic blood 2020-09-23 19:29:00 74 mm[Hg] [employer] [facility] pressure Medicine Heart rate 2020-09-23 19:29:00 85 /min [facility] Respiratory rate 2020-09-23 19:29:00 18 /min [facility] Body height 2020-09-23 19:29:00 167.6 cm [facility] Body weight 2020-09-23 19:29:00 116.302 kg [facility] BMI 2020-09-23 19:29:00 41.38 kg/m2 [facility] Systolic blood 2020-08-28 17:46:00 112 mm[Hg] [facility] Medicine Diastolic blood 2020-08-28 17:46:00 60 mm[Hg] [facility] Medicine Heart rate 2020-08-28 17:46:00 83 /min [facility] Respiratory rate 2020-08-28 17:46:00 16 /min [facility] Body height 2020-08-28 17:46:00 167.6 cm [facility] ol[facility] of Medicine Systolic blood 2020-08-28 17:46:00 112 mm[Hg] [facility] Medicine Diastolic blood 2020-08-28 17:46:00 60 mm[Hg] [facility] Medicine Heart rate 2020-08-28 17:46:00 83 /min [facility] ol[facility] of Medicine Respiratory rate 2020-08-28 17:46:00 16 /min [facility] Body height 2020-08-28 17:46:00 167.6 cm [facility] Heart rate 2020-06-26 18:41:00 83 /min [facility] Respiratory rate 2020-06-26 18:41:00 16 /min [facility] Body height 2020-06-26 18:41:00 167.6 cm [facility] Body weight 2020-06-26 18:41:00 116.121 kg [facility] BMI 2020-06-26 18:41:00 41.32 kg/m2 [facility] Heart rate 2020-06-26 18:41:00 83 /min [facility] Respiratory rate 2020-06-26 18:41:00 16 /min [facility] Body height 2020-06-26 18:41:00 167.6 cm [facility] Body weight 2020-06-26 18:41:00 116.121 kg [facility] BMI 2020-06-26 18:41:00 41.32 kg/m2 [facility] Respiratory rate 2020-06-24 21:22:00 20 /min [facility] Body height 2020-06-24 21:22:00 167.6 cm [facility] Body weight 2020-06-24 21:22:00 116.756 kg [facility] BMI 2020-06-24 21:22:00 41.55 kg/m2 [facility] ol[facility] of Medicine Respiratory rate 2020-06-24 21:22:00 20 /min [facility] Body height 2020-06-24 21:22:00 167.6 cm [facility] Medicine Body weight 2020-06-24 21:22:00 116.756 kg [facility] ol[facility] of Medicine BMI 2020-06-24 21:22:00 41.55 kg/m2 [facility] ol[facility] of Medicine Systolic blood 2020-05-26 20:00:00 149 mm[Hg] Univer [facility] of pressure [facility] Diastolic blood 2020-05-26 20:00:00 64 mm[Hg] Unive rsity of pressure [facility] Heart rate 2020-05-26 20:00:00 83 /min [facility]i ty [facility] Body temperature 2020-05-26 20:00:00 36.[address] [facility] Respiratory rate 2020-05-26 20:00:00 18 /min Univ ersity of [facility] Oxygen saturation in 2020-05-26 20:00:00 97 /min [facility] Arterial blood by [facility] Pulse oximetry Branch Body height 2020-05-25 13:02:00 170.2 cm Universi ty [facility] Body weight 2020-05-25 13:02:00 119.5 kg [facility]i ty [facility] BMI 2020-05-25 13:02:00 41.26 kg/m2 [facility] ty [facility] Systolic blood 2020-05-26 20:00:00 149 mm[Hg] Univer sity of pressure [facility] Diastolic blood 2020-05-26 20:00:00 64 mm[Hg] Unive rsity of pressure [facility] Heart rate 2020-05-26 20:00:00 83 /min [facility] ty of [facility] Body temperature 2020-05-26 20:00:00 36.[address] [facility] Respiratory rate 2020-05-26 20:00:00 18 /min [facility] 2020-05-26 20:00:00 97 /min [facility] Arterial blood by [facility] Pulse oximetry [place] Body height 2020-05-25 13:02:00 170.[address] [facility] Body weight 2020-05-25 13:02:00 119.5 kg [facility]i ty [facility] BMI 2020-05-25 13:02:00 41.26 kg/m2 [facility]i ty [facility] HEIGHT 2020-02-21 00:00:00 175.3 cm WEIGHT 2020-02-21 00:00:00 115.7 kg Systolic blood 2020-02-28 13:55:00 119 mm[Hg] [facility] pressure Medicine Diastolic blood 2020-02-28 13:55:00 76 mm[Hg] [facility] pressure Medicine Heart rate 2020-02-28 13:55:00 74 /min [facility] Body temperature 2020-02-28 13:55:00 36.39 Joy [facility] Body height 2020-02-28 13:55:00 167.6 cm [facility] Body weight 2020-02-28 13:55:00 114.216 kg [facility] BMI 2020-02-28 13:55:00 40.64 kg/m2 [facility] Systolic blood 2020-02-28 13:55:00 119 mm[Hg] [facility] pressure Medicine Diastolic blood 2020-02-28 13:55:00 76 mm[Hg] [facility] pressure Medicine Heart rate 2020-02-28 13:55:00 74 /min [facility] Body temperature 2020-02-28 13:55:00 36.39 Joy [facility] Body height 2020-02-28 13:55:00 167.6 cm [facility] Body weight 2020-02-28 13:55:00 114.216 kg [facility] BMI 2020-02-28 13:55:00 40.64 kg/m2 [facility] Medicine Body height 2020-02-21 19:15:00 167.6 cm [facility] Body weight 2020-02-21 19:15:00 112.946 kg [facility] BMI 2020-02-21 19:15:00 40.19 kg/m2 [facility] Medicine Body height 2020-02-21 19:15:00 167.6 cm [facility] Body weight 2020-02-21 19:15:00 112.946 kg [facility] BMI 2020-02-21 19:15:00 40.19 kg/m2 [facility] Systolic blood 2020-02-21 16:06:00 115 mm[Hg] [facility] pressure Medicine Diastolic blood 2020-02-21 16:06:00 79 mm[Hg] [facility] pressure Medicine Heart rate 2020-02-21 16:06:00 91 /min [facility] Medicine Body temperature 2020-02-21 16:06:00 36.61 Joy [facility] Body height 2020-02-21 16:06:00 167.6 cm [facility] Body weight 2020-02-21 16:06:00 112.946 kg [facility] BMI 2020-02-21 16:06:00 40.19 kg/m2 [facility] Medicine Systolic blood 2020-02-21 16:06:00 115 mm[Hg] [facility] pressure Medicine Diastolic blood 2020-02-21 16:06:00 79 mm[Hg] [facility] pressure Medicine Heart rate 2020-02-21 16:06:00 91 /min [facility] Body temperature 2020-02-21 16:06:00 36.61 Joy [facility] Body height 2020-02-21 16:06:00 167.6 cm [facility] Body weight 2020-02-21 16:06:00 112.946 kg [facility] ol[facility] of Medicine BMI 2020-02-21 16:06:00 40.19 kg/m2 [facility] ol[facility] of Medicine Systolic blood 2020-02-13 16:44:00 132 mm[Hg] [facility] pressure Medicine Diastolic blood 2020-02-13 16:44:00 77 mm[Hg] [facility] pressure Medicine Heart rate 2020-02-13 16:44:00 91 /min [facility] ol[facility] of Medicine Body temperature 2020-02-13 16:44:00 36.44 Joy [facility] Respiratory rate 2020-02-13 16:44:00 16 /min [facility] Body height 2020-02-13 16:44:00 167.6 cm [facility] ol[facility] of [facility] Body weight 2020-02-13 16:44:00 116.302 kg [facility] BMI 2020-02-13 16:44:00 41.38 kg/m2 [facility] ol[facility] of [facility] Oxygen saturation in 2020-02-13 16:44:00 93 /min [facility] Arterial blood by Medicine Pulse oximetry Systolic blood 2020-02-13 16:44:00 132 mm[Hg] [facility] pressure Medicine Diastolic blood 2020-02-13 16:44:00 77 mm[Hg] [facility] Medicine Heart rate 2020-02-13 16:44:00 91 /min [facility] ol[facility] of Medicine Body temperature 2020-02-13 16:44:00 36.44 Joy [facility] Respiratory rate 2020-02-13 16:44:00 16 /min [facility] Body height 2020-02-13 16:44:00 167.6 cm [facility] ol[facility] of Medicine Body weight 2020-02-13 16:44:00 116.302 kg [facility] ol[facility] of Medicine BMI 2020-02-13 16:44:00 41.38 kg/m2 [facility] ol[facility] of Medicine Oxygen saturation in 2020-02-13 16:44:00 93 /min [facility] Arterial blood by Medicine Pulse oximetry Systolic blood 2019-11-28 15:25:00 116 mm[Hg] [facility] pressure Medicine Diastolic blood 2019-11-28 15:25:00 77 mm[Hg] [facility] Medicine Heart rate 2019-11-28 15:25:00 76 /min [facility] ol[facility] of [facility] Body temperature 2019-11-28 15:25:00 36.5 Joy [facility] Respiratory rate 2019-11-28 15:25:00 18 /min [facility] Body height 2019-11-28 15:25:00 167.6 cm [facility] ol[facility] of [facility] Body weight 2019-11-28 15:25:00 117.3 kg [facility] BMI 2019-11-28 15:25:00 41.74 kg/m2 [facility] Oxygen saturation in 2019-11-28 15:25:00 96 /min [facility] blood by [facility] Pulse oximetry Systolic blood 2019-11-14 18:58:00 159 mm[Hg] [facility] pressure Medicine Diastolic blood 2019-11-14 18:58:00 69 mm[Hg] [facility] Medicine Heart rate 2019-11-14 18:58:00 96 /min [facility] ol[facility] of [facility] Body temperature 2019-11-14 18:58:00 36.5 Joy [facility] Respiratory rate 2019-11-14 18:58:00 16 /min [facility] Body height 2019-11-14 18:58:00 167.6 cm [facility] ol[facility] of [facility] Body weight 2019-11-14 18:58:00 117.482 kg [facility] of Medicine BMI 2019-11-14 18:58:00 41.80 kg/m2 [facility] of Medicine Body height 2019-11-14 16:46:00 167.6 cm [facility] of Medicine Body weight 2019-11-14 16:46:00 117.482 kg [facility] of Medicine BMI 2019-11-14 16:46:00 41.80 kg/m2 [facility] ol[facility] of Medicine Systolic blood 2019-08-17 17:38:00 126 mm[Hg] [facility] pressure Medicine Diastolic blood 2019-08-17 17:38:00 67 mm[Hg] [facility] Medicine Heart rate 2019-08-17 17:38:00 82 /min [facility] ol[facility] of Medicine Body height 2019-08-17 17:38:00 167.6 cm [facility] ol[facility] of Medicine Body weight 2019-08-17 17:38:00 121.972 kg [facility] of Medicine BMI 2019-08-17 17:38:00 43.40 kg/m2 [facility] ol[facility] of Medicine Systolic blood 2019-08-14 20:10:00 126 mm[Hg] [facility] pressure Medicine Diastolic blood 2019-08-14 20:10:00 78 mm[Hg] [facility] pressure Medicine Heart rate 2019-08-14 20:10:00 93 /min [facility] ol[facility] of [facility] Body height 2019-08-14 20:10:00 167.6 cm [facility] ol[facility] of Medicine Body weight 2019-08-14 20:10:00 122.018 kg [facility] ol[facility] of Medicine BMI 2019-08-14 20:10:00 43.42 kg/m2 [facility] of [facility] BMI 2019-06-20 18:54:00 41.97 [facility]2 [facility] 2019-06-20 18:54:00 130 mm[Hg] [facility] pressure Medicine Diastolic blood 2019-06-20 18:54:00 70 mm[Hg] [facility] pressure Medicine Body temperature 2019-06-20 18:54:00 36.83 Joy [facility] Body height 2019-06-20 18:54:00 170.2 cm [facility] ol[facility] of Medicine Body weight 2019-06-20 18:54:00 121.564 kg [facility] of Medicine Body height 2022-02-12 11:52:00 167.6 cm [facility] Body weight 2022-02-12 11:52:00 117.482 kg [facility] BMI 2022-02-12 11:52:00 41.80 kg/m2 [facility] Body height 2021-09-11 12:40:00 167.6 cm [facility] Body weight 2021-09-11 12:40:00 111.766 kg [facility] BMI 2021-09-11 12:40:00 39.77 kg/m2 [facility] Systolic blood 2021-09-11 12:40:00 109 mm[Hg] [facility] Diastolic blood 2021-09-11 12:40:00 72 mm[Hg] [facility] Heart rate 2021-09-11 12:40:00 80 /min [facility] Body temperature 2021-09-11 12:40:00 36.28 Joy [facility] Oxygen saturation in 2021-09-11 12:40:00 96 /min [facility] Arterial blood by Medical Ce [facility]ter Pulse oximetry Oxygen saturation by 2021-05-08 22:00:00 96 /min [facility] Pulse oximetry [facility] Oxygen saturation by 2021-05-08 20:11:00 96 /min [facility] Pulse oximetry Patient [facility] Oxygen saturation by 2021-05-08 18:46:00 99 /min [facility] Pulse oximetry Patient [facility] Oxygen saturation by 2021-05-08 17:57:00 99 /min [facility] Pulse oximetry Patient [facility] Systolic blood 2021-05-08 12:30:00 111 mm[Hg] [facility] Diastolic blood 2021-05-08 12:30:00 55 mm[Hg] [facility] Heart rate 2021-05-08 12:30:00 78 /min [facility] Body temperature 2021-05-08 12:30:00 36.22 Joy [facility] Respiratory rate 2021-05-08 12:30:00 20 /min [facility] Oxygen saturation in 2021-05-08 12:30:00 91 /min [facility] Arterial blood by Medical Ce [facility]ter Pulse oximetry Body height 2021-05-08 06:15:00 167.6 cm [facility] Body weight 2021-05-08 06:15:00 116.2 kg [facility] BMI 2021-05-08 06:15:00 41.35 kg/m2 [facility] pulse rate 2020-03-19 08:16:20 81 /min [facility] blood pressure, 2020-03-19 08:16:20 77 mm[Hg] [facility] blood pressure, 2020-03-19 08:16:20 139 mm[Hg] [facility] Weight 2020-03-17 22:55:00 263 [lb_av] [facility] (Body Mass 2020-03-17 22:55:00 42.4 kg/m2 [facility] Systolic blood 2019-11-28 17:21:00 122 mm[Hg] [facility] pressure Medicine Diastolic blood 2019-11-28 17:21:00 69 mm[Hg] [facility] of pressure Medicine Heart rate 2019-11-28 17:21:00 78 /min [facility] Respiratory rate 2019-11-28 17:21:00 16 /min [facility] Body height 2019-11-28 17:21:00 167.6 cm [facility] Body weight 2019-11-28 17:21:00 117.028 kg [facility] BMI 2019-11-28 17:21:00 41.64 kg/m2 [facility] Body temperature 2019-11-28 15:25:00 36.5 Joy [facility] Oxygen saturation in 2019-11-28 15:25:00 96 /min [facility] blood by [facility] Pulse oximetry Systolic blood 2019-11-14 18:58:00 159 mm[Hg] [facility] pressure Medicine Diastolic blood 2019-11-14 18:58:00 69 mm[Hg] [facility] pressure Medicine Heart rate 2019-11-14 18:58:00 96 /min [facility] Body temperature 2019-11-14 18:58:00 36.5 Joy [facility] Respiratory rate 2019-11-14 18:58:00 16 /min [facility] Body height 2019-11-14 18:58:00 167.6 cm [facility] Body weight 2019-11-14 18:58:00 117.482 kg [facility] BMI 2019-11-14 18:58:00 41.80 kg/m2 [facility] Body Temperature 2019-11-06 20:06:00 98.6 [degF] CECY [facility] Systolic blood 2019-09-20 16:40:00 134 mm[Hg] [facility] pressure Medicine Diastolic blood 2019-09-20 16:40:00 79 mm[Hg] [facility] pressure Medicine Heart rate 2019-09-20 16:40:00 93 /min [facility] Body height 2019-09-15 15:31:00 167.6 cm [facility] Body weight 2019-09-15 15:31:00 122.925 kg [facility] BMI 2019-09-15 15:31:00 43.74 kg/m2 [facility] Respiratory rate 2019-08-30 16:00:00 16 /min [facility] Oxygen saturation in 2019-08-30 16:00:00 97 /min [facility] Arterial blood by Medicine Pulse oximetry Systolic blood 2019-07-11 14:41:00 118 mm[Hg] [facility] pressure Medicine Diastolic blood 2019-07-11 14:41:00 73 mm[Hg] [facility] pressure Medicine Heart rate 2019-07-11 14:41:00 95 /min [facility] Respiratory rate 2019-07-11 14:41:00 16 /min [facility] Body height 2019-07-11 14:41:00 167.6 cm [facility] Body weight 2019-07-11 14:41:00 119.931 kg [facility] BMI 2019-07-11 14:41:00 42.68 kg/m2 [facility] Body temperature 2019-06-20 18:54:00 36.83 Joy [facility] Oxygen saturation in 2018-11-23 19:03:12 96 /min [facility] Arterial blood by Medicine Pulse oximetry Procedures Procedure Date / Time Performing Clinician Source Performed AMB REF TO NEUROLOGY 2022-06-01 09:36:32 [facility] CBC W/PLT COUNT & AUTO 2022-05-06 13:14:00 Phillips, Cam [facility] BASIC METABOLIC PANEL (7) 2022-05-06 13:14:00 Cam Phillips Sh[facility] HEPATIC FUNCTION PANEL 2022-02-04 14:05:00 Cam Phillips [facility] CBC W/PLT COUNT & AUTO 2022-02-04 14:05:00 Cam Phillips [facility] PROTHROMBIN TIME/INR 2022-02-04 14:05:00 Cam Phillips [facility] ALPHA FETOPROTEIN (AFP), 2022-02-04 14:05:00 [facility] BASIC METABOLIC PANEL (7) 2022-02-04 14:05:00 Cam Phillips [facility] US ABDOMEN COMPLETE 2022-01-13 11:52:00 Cam Phillips [facility] CT SOFT TISSUE NECK W 2021-08-20 23:42:00 Dewayne Leung [facility] CBC WITH DIFF 2021-08-20 23:24:00 Dewayne Leung [facility] CONSENT/REFUSAL FOR 2021-08-20 22:39:45 Doctor Unassigned, [facility] DIAGNOSIS AND TREATMENT [facility] US ABDOMEN COMPLETE 2021-07-29 14:48:00 Mariely Joseph [facility] BASIC METABOLIC PANEL (7) 2021-07-28 13:37:00 Mariely Joseph [facility] HEPATIC FUNCTION PANEL 2021-07-28 13:37:00 Mariely Joseph [facility] CBC W/PLT COUNT & AUTO 2021-07-28 13:37:[address] [facility] PROTHROMBIN TIME/INR 2021-07-28 13:37:00 Mariely Joseph [facility] ALPHA FETOPROTEIN (AFP), 2021-07-28 13:37:00 Mariely Joseph [facility] TUMOR MARKER [place] POCT-GLUCOSE METER 2021-05-08 10:52:00 Ivelisse Mares [facility] ANESTHESIA PERIPHERAL 2021-05-08 10:23:52 Archana Rivero [facility] [place] FLUORO NON-SPECIFIC UP 2021-05-08 10:15:00 Ivelisse Mares [facility] TO 1 HOUR Center ARTHROPLASTY,CARPOMETACAR 2021-05-08 07:35:00 Ivelisse Mares [facility] TENDON SUSPENSION Center TRANSFER,TENDON WRIST 2021-05-08 07:35:00 Ivelisse Mares [facility] STYLOIDECTOMY,RADIUS 2021-05-08 07:35:00 Ivelisse Mares [facility] PROCEDURE W/MINI C-ARM 2021-05-08 07:35:00 Ivelisse Mares [facility] POCT-GLUCOSE METER 2021-05-08 06:27:00 Ivelisse Mares [facility] PROTHROMBIN TIME/INR 2021-05-08 06:21:00 Mat [facility] APTT 2021-05-08 06:21:00 [facility] AST (SGOT) 2021-05-08 06:21:00 [facility] 2021-05-08 06:21:00 Rivero [facility] Computed tomography of 2021-05-08 00:00:00 CECY Mora Patient chest with contrast [facility] er SARS-COV2/RT-PCR ([facility] & 2021-05-06 12:47:00 Ivelisse Mares [facility] REF LABS) Center BASIC METABOLIC PANEL 2021-05-01 22:33:00 Shanelle [facility] HEPATIC FUNCTION PANEL 2021-05-01 22:33:00 Bhavesh Timmons [facility] FERRITIN 2021-05-01 22:33:00 Torres Timmonshra [facility] CBC W/AUTO DIFF WITH 2021-05-01 22:33:00 Tosur, [facility] REPORT OF PROCEDURE - 2021-03-27 12:06:08 Tom Mann [facility] Center TISSUE EXAM 2021-03-27 11:53:00 Tom Mann [facility] REPORT OF PROCEDURE - 2021-03-27 11:36:57 Tom Mann [facility] COLONOSCOPY,BIOPSY 2021-03-27 11:07:00 Tom Mann [facility] UPPER ENDOSCOPY 2021-03-27 11:07:00 Tom Mann [facility] POCT-GLUCOSE METER 2021-03-27 10:11:00 Tom Mann [facility] POCT HEMOGLOBIN A1C 2021-03-26 19:57:00 Clau Fowler [facility] CT THORAX W CONTRAST 2021-03-24 02:24:07 Katey Mosqueda [facility] BASIC METABOLIC PANEL 2021-03-24 01:44:00 Katey Mosqueda [facility] (NA, K, CL, CO2, GLUCOSE, Medica l Branch BUN, CREATININE, CA) CBC WITH DIFF 2021-03-24 01:44:00 Niles Katey Minong o f [facility] CONSENT/REFUSAL FOR 2021-03-23 22:59:41 Doctor Unassigned, [facility] DIAGNOSIS AND TREATMENT [facility] US ABDOMEN COMPLETE 2021-02-21 10:17:00 Rene Huitron [facility] POCT-GLUCOSE METER 2021-01-17 11:30:00 Gold [facility] PROTHROMBIN TIME/INR 2021-01-17 09:49:00 Gold [facility] POCT-GLUCOSE METER 2021-01-17 08:55:00 Gold [facility] CBC W/PLT COUNT & AUTO 2021-01-17 05:29:00 Hien Malcolm [facility] COMPREHENSIVE METABOLIC 2021-01-17 05:29:00 Gold [facility] Center FERRITIN 2021-01-17 05:29:00 Gold [facility] LACTATE DEHYDROGENASE 2021-01-17 05:29:[address] [facility] [place] D-DIMER 2021-01-17 05:29:00 Gold, [facility] C-REACTIVE PROTEIN 2021-01-17 05:29:00 Gold [facility] CBC W/PLT COUNT & AUTO 2021-01-17 05:29:00 Gold [facility] POCT-GLUCOSE METER 2021-01-16 20:13:00 Gold, [facility] POCT-GLUCOSE METER 2021-01-16 16:55:00 Gold, [facility] POCT-GLUCOSE METER 2021-01-16 12:18:00 Gold [facility] POCT-GLUCOSE METER 2021-01-16 08:41:00 Gold [facility] COMPREHENSIVE METABOLIC 2021-01-16 03:32:00 Gold [facility] Center FERRITIN 2021-01-16 03:32:00 Gold [facility] LACTATE DEHYDROGENASE 2021-01-16 03:32:[address] [facility] [place] C-REACTIVE PROTEIN 2021-01-16 03:32:00 Gold [facility] PROTHROMBIN TIME/INR 2021-01-16 03:31:00 Gold [facility] CBC W/PLT COUNT & AUTO 2021-01-16 03:31:00 Gold [facility] D-DIMER 2021-01-16 03:31:00 Gold [facility] CBC W/PLT COUNT & AUTO 2021-01-16 03:31:00 Gold [facility] POCT-GLUCOSE METER 2021-01-15 16:45:00 Gold [facility] POCT-GLUCOSE METER 2021-01-15 12:18:00 Gold [facility] POCT-GLUCOSE METER 2021-01-15 08:29:00 MalcolmHien brooks [facility] BASIC METABOLIC PANEL (7) 2021-01-15 05:48:00 Bailee Watson [facility] HEPATIC FUNCTION PANEL 2021-01-15 05:48:00 Bailee Watson [facility] MAGNESIUM 2021-01-15 05:48:00 [place], [facility] CBC W/PLT COUNT & AUTO 2021-01-15 04:33:00 [place], [facility] DIFFERENTIAL [facility] CBC W/PLT COUNT & AUTO 2021-01-15 04:33:00 [place], [facility] POCT-GLUCOSE METER 2021 16:07:00 [facility] POCT-GLU[facility]SE METER 2021 12:02:00 [place], [facility] POCT-GLUCOSE METER 2021 08:01:00 [place], [facility] BASIC METABOLIC PANEL (7) 2021 03:51:00 Bailee Watson [facility] HEPATIC FUNCTION PANEL 2021 03:51:00 Bailee Watson [facility] CBC W/PLT COUNT & AUTO 2021 03:51:00 Meli Rogers [facility] DIFFERENTIAL [facility] CBC W/PLT COUNT & AUTO 2021 03:51:00 Meli Rogers [facility] POCT-GLUCOSE METER 2021-01-13 21:11:00 [place], [facility] POCT-GLUCOSE METER 2021-01-13 17:16:00 [place], [facility] POCT-GLUCOSE METER 2021-01-13 11:26:00 [place], [facility] POCT-GLUCOSE METER 2021-01-13 07:33:00 [facility] BASIC METABOLIC PANEL (7) 2021-01-13 05:26:00 Bailee Watson [facility] HEPATIC FUNCTION PANEL 2021-01-13 05:26:00 Bailee Watson [facility] CBC W/PLT COUNT & AUTO 2021-01-13 04:00:00 Dave Antoine [facility] APTT 2021-01-13 04:00:00 Bailee Watson [facility] CBC W/PLT COUNT & AUTO 2021-01-13 04:00:00 Dave Antoineshar [facility] POCT-GLUCOSE METER 2021-01-12 21:14:00 [facility] POCT-GLUCOSE METER 2021-01-12 17:15:00 [facility] POCT-GLUCOSE METER 2021-01-12 12:02:00 [facility] POCT-GLUCOSE METER 2021-01-12 08:53:00 [facility] CBC W/PLT COUNT & AUTO 2021-01-12 04:53:00 Dave Antoine [facility] BASIC METABOLIC PANEL (7) 2021-01-12 04:53:00 Baliee Watson [facility] HEPATIC FUNCTION PANEL 2021-01-12 04:53:00 Bailee Watson [facility] HEMOGLOBIN A1C 2021-01-12 04:53:00 [facility] D-DIMER 2021-01-12 04:53:00 [facility] APTT 2021-01-12 04:53:00 Bailee Watson [facility] CBC W/PLT COUNT & AUTO 2021-01-12 04:53:00 Dave Antoine [facility] APTT 2021-01-11 23:01:00 Bailee Watson [facility] POCT-GLUCOSE METER 2021-01-11 19:47:00 Civunkelly [facility] POCT-GLUCOSE METER 2021-01-11 17:14:00 [facility] 2021-01-11 16:56:00 Bailee Watson [facility] POCT-GLUCOSE METER 2021-01-11 11:33:00 [facility] APTT 2021-01-11 10:05:00 Bailee Watson [facility] POCT-GLUCOSE METER 2021-01-11 08:25:00 [facility] APTT 2021-01-11 02:07:00 Bailee Watson [facility] CBC W/PLT COUNT & AUTO 2021-01-11 00:58:00 Dave Antoine [facility] MAGNESIUM 2021-01-11 00:58:00 Jona Campos [facility] BASIC METABOLIC PANEL (7) 2021-01-11 00:58:00 Bailee Watson [facility] HEPATIC FUNCTION PANEL 2021-01-11 00:58:00 Bailee Watson [facility] APTT 2021-01-11 00:58:00 Bailee Watson [facility] CBC W/PLT COUNT & AUTO 2021-01-11 00:58:00 Dave Antoine [facility] APTT 2021-01-11 00:05:00 Bailee Watson [facility] POCT-GLUCOSE METER 2021-01-10 23:05:00 [facility] APTT 2021-01-10 23:03:00 Bailee Watson [facility] CT CHEST FOR PULMONARY 2021-01-10 19:15:00 Angelo [facility] EMBOLUS Gerardine [place] POCT-GLUCOSE METER 2021-01-10 18:19:00 Davida Dillon [facility] LACTIC ACID, VENOUS 2021-01-10 17:22:[facility] B-TYPE NATRIURETIC FACTOR 2021-01-10 15:35:00 Angelo I [facility] (BNP) [facility] CRITICAL CARE 2021-01-10 15:01:08 Davida Dillon [facility] ED ECG INTERPRETATION 2021-01-10 15:01:08 Davida Dillon [facility] XR CHEST 1 VIEW PORTABLE 2021-01-10 14:37:00 [facility] BLOOD CULTURE 2021-01-10 14:34:00 [facility] CBC W/PLT COUNT & AUTO 2021-01-10 14:34:00 [facility] LACT[facility] ACID, VENOUS 2021-01-10 14:34:00 [facility] COMPREHENSIVE METABOLIC 2021-01-10 14:34:00 [facility] PROTHROMBIN TIME/INR 2021-01-10 14:34:00 [facility] 2021-01-10 14:34[facility]00 [facility] TROPONIN I 2021-01-10 14:34:00 [facility] LACTATE DEHYDROGENASE 2021-01-10 14:34:00 [facility] C-REACTIVE PROTEIN 2021-01-10 14:34:[facility]LO[facility], [facility]ENOUS 2021-01-10 14:34:00 Angelo [facility] FERRITIN 2021-01-10 14:34:00 [facility] CBC W/PLT COUNT & AUTO 2021-01-10 14:34:00 Angelo [facility] DIFFERENTIAL [facility] 12-LEAD 2021-01-10 14:28:23 Angelo [facility] ECG 12-LEAD 2021-01-10 14:28:23 Unknown, H[facility] UROLOGY REPORT - SCAN 2021-01-10 00:00:00 Provider, Default [facility] Scanning Center REPORT OF PROCEDURE - 2021-01-10 00:00:00 Provider, Default [facility] ENDOSCOPY SCAN Scanning Center BASIC METABOLIC PANEL (7) 2020-12-26 15:05:00 Tom Mann I [facility] HEPATIC FUNCTION PANEL 2020-12-26 15:05:00 Tom Mann [facility] CBC W/PLT COUNT & AUTO 2020-12-26 15:05:00 Tom Mann [facility] PROTHROMBIN TIME/INR 2020-12-26 15:05:00 Tom Mann [facility] ALPHA FETOPROTEIN (AFP), 2020-12-26 15:05:00 Tom Mann [facility] TUMOR MARKER Center CBC W/PLT COUNT & AUTO 2020-12-26 15:05:00 Tom Mann [facility] POCT HEMOGLOBIN A1C 2020-12-19 20:43:00 Clau Fowler [facility] POCT HEMOGLOBIN A1C 2020-09-23 19:51:00 Clau Fowler [facility] CRYSTALS, URINE(SLEH) 2020-08-31 18:00:00 Clau Fowler [facility] HEMOGLOBIN A1C 2020-06-24 22:24:00 Laurie Jordan [facility] AUTHORIZATION FOR RELEASE 2020-06-13 05:01:00 Doctor Unassigned, [facility] BASIC METABOLIC PANEL (7) 2020-06-05 12:53:00 Rene Huitron [facility] HEPATIC FUNCTION PANEL 2020-06-05 12:53:00 Rene Huitron [facility] CBC W/PLT COUNT & AUTO 2020-06-05 12:53:00 Rene Huitron [facility] PROTHROMBIN TIME/INR 2020-06-05 12:53:00 Rene Huitron [facility] ALPHA FETOPROTEIN (AFP), 2020-06-05 12:53:00 Rene Huitron [facility] TUMOR MARKER Center POCT GLUCOSE (AUTOMATED) 2020-05-26 16:20:00 Tierra Myles Uni versity [facility] POCT GLUCOSE (AUTOMATED) 2020-05-26 13:19:00 [facility] WITH DIFF 2020-05-26 09:46:00 Kendal Mack [facility] POCT GLUCOSE (AUTOMATED) 2020-05-26 01:52:00 [facility] PO[facility] GLU[facility]SE (AUTOMATED) 2020-05-25 21:31:00 [facility] XR KUB 2020-05-25 17:14:29 Kendal Mack [facility] POCT GLUCOSE (AUTOMATED) 2020-05-25 16:46:00 [facility] POCT GLU[facility]SE (AUTOMATED) 2020-05-25 13:02:00 [facility] BASIC METABOLIC PANEL 2020-05-25 09:42:00 [facility] (NA, K, CL, CO2, GLUCOSE, Medica l Branch BUN, CREATININE, CA) CBC WITH DIFF 2020-05-25 09:42:00 Kendal Mack [facility] POCT GLUCOSE (AUTOMATED) 2020-05-25 01:12:00 [facility] POCT GLUCOSE (AUTOMATED) 2020-05-24 21:16:00 Tierra Myles Uni versity [facility] POCT GLUCOSE (AUTOMATED) 2020-05-24 16:00:00 Tierra Myles Uni versity [facility] POCT GLUCOSE (AUTOMATED) 2020-05-24 12:37:00 Tierra Myles [facility] MAGNESIUM 2020-05-24 10:08:00 Juan Manuel [facility] BASIC METABOLIC PANEL 2020-05-24 10:08:00 Kendal Mack [facility] (NA, K, CL, CO2, GLUCOSE, Medica l Branch BUN, CREATININE, CA) CBC WITH DIFF 2020-05-24 10:08:00 Kendal Mack [facility] POCT GLUCOSE (AUTOMATED) 2020-05-24 02:04:00 Tierra Myles [facility] POCT GLUCOSE (AUTOMATED) 2020-05-23 22:09:00 Tierra Myles [facility] POCT GLUCOSE (AUTOMATED) 2020-05-23 20:51:00 Tierra Myles [facility] POCT GLUCOSE (AUTOMATED) 2020-05-23 17:08:00 Tierra Myles [facility] PHOSPHORUS 2020-05-23 10:52:00 Juan Manuel [facility] CBC WITH DIFF 2020-05-23 10:52:00 Juan Manuel [facility] LACTIC ACID WHOLE BLOOD 2020-05-23 10:52:00 Juan Manuel [facility] COVID-19 (ID NOW RAPID 2020-05-23 06:44:00 Hugh Eric [facility] TESTING) [facility] CT ABDOMEN PELVIS W 2020-05-23 05:12:53 Jeaneth [facility] CONTRAST [facility] URINALYSIS 2020-05-23 04:31:00 Jeaneth [facility] EXTRA TUBE URINE CULTURE 2020-05-23 04:31:00 Hugh Eric [facility] TROPONIN I 2020-05-23 04:03:00 Jeaneth [facility] COMP. METABOLIC PANEL 2020-05-23 04:03:00 Hugh Eric [facility] ([id number]) Medical Branch CBC WITH DIFF 2020-05-23 04:03:00 Jeaneth [facility] EKG-12 LEAD 2020-05-23 03:39:47 Eric [facility] EKG-12 LEAD 2020-05-23 03:33:41 Eric, [facility] arabella f [facility] EMERGENCY DEPARTMENT 2020-05-22 05:01:00 Doctor Unassigned, [facility] DOCUMENTS [facility] US ABDOMEN COMPLETE 2019-11-20 19:15:00 Tom Mann [facility] PROTIME-INR 2019-11-15 20:06:00 Tom Mann [facility] HEPATIC FUNCTION PANEL 2019-11-15 20:06:00 Tom Mann [facility] BASIC METABOLIC PANEL 2019-11-15 20:06:00 Tom Mann [facility] HEPATITIS B SURFACE 2019-11-15 20:06:00 Rene Huitron [facility] AFP TUMOR MARKER 2019-11-15 20:06:00 Tom Mann [facility] HEPATITIS B VIRAL DNA 2019-11-15 20:06:00 [facility] Medicine XR FINGER RIGHT < 2 VW 2019-11-14 17:04:34 Manasa Turner [facility] CLOSTRIDIUM DIFFICILE 2019-11-03 18:22:00 [facility] WITH REFLEX TO Medicin e PCR (SCN) SCANNED ORDER 2019-11-02 06:00:00 Laurie Jordan [facility] OCT, RETINA - OU - BOTH 2019-10-17 21:17:04 Marilyn Roque [facility] Medicine XR FINGER RIGHT < 2 VW 2019-09-15 16:40:51 Manasa Turner [facility] CRYOGLOBULIN 2019-08-30 16:47:00 Neli [facility] CBC W/AUTO DIFF WITH 2019-08-30 16:47:00 Neli [facility] PLATELETS [facility] SEDIMENTATION RATE 2019-08-30 16:47:00 Neli [facility] Co llege of MODIFIED WESTERGREN [facility] COMPLEMENT C3 AND C4 2019-08-30 16:47:00 Neli [facility] ANTI NEUTROPHIL 2019-08-30 16:47:00 Neli [facility] of CYTOPLASMIC ANTIBODY [facility] COMPREHENSIVE METABOLIC 2019-08-30 16:47:00 Neli [facility] CK 2019-08-30 16:47:00 Neli [facility] C-REACTIVE PROTEIN 2019-08-30 16:47:00 Neli [facility] llege of [facility] US ANK/BRAC INDICES, 2019-08-17 16:30:00 Malorie Slaughter [facility] LIPID PANEL 2019-08-15 16:00:00 Adán Resnick [facility] MICROALBUMIN/CREAT URINE 2019-08-15 16:00:00 Dusty Mccain [facility] POCT HEMOGLOBIN A1C 2019-08-14 20:50:00 Adán [facility] POCT HEMOGLOBIN A1C 2019-08-14 20:50:00 Adán [facility] SEDIMENTATION RATE 2019-07-03 17:20:00 Laurie Jordan [facility] C-REACTIVE PROTEIN 2019-07-03 17:20:00 Laurie Jordan [facility] CELIAC DISEASE 2019-07-03 17:20:00 Laurie Jordan [facility] llege of [facility] Medici [facility]) PATHOLOGY TISSUE 2019-06-22 16:04:00 Tom Mann [facility] POCT GLUCOSE 2019-06-22 14:54:00 Tom Mann [facility] Medicine PROTIME-INR 2019-06-22 14:46:00 Tom Mann [facility] Medicine BASIC METABOLIC PROFILE + 2019-06-13 14:51:00 Rene Huitron [facility] E-GFR [facility] HEPATIC FUNCTION PANEL 2019-06-13 14:51:00 Rene Huitron [facility] PROTIME-INR 2019-06-13 14:51:00 Rene Huitron [facility] CBC W/AUTO DIFF WITH 2019-06-13 14:51:00 Rene Huitron [facility] Medicine PATHOLOGY TISSUE 2019-05-26 17:15:00 Arielle Mcginnis [facility] (SCN) GI PROCEDURE 2019-05-26 00:00:00 Provider, [facility] CBC W/AUTO DIFF WITH 2019-05-02 21:10:00 Kristyn Waters [facility] PROTIME-INR 2019-05-02 21:10:00 Kristyn Waters [facility] HEPATIC FUNCTION PANEL 2019-05-02 21:10:00 Kristyn Waters [facility] BASIC METABOLIC PANEL 2019-05-02 21:10:00 Kristyn Waters [facility] AFP TUMOR MARKER 2019-05-02 21:10:00 Kristyn Waters [facility] Danny ege [facility] Plan of Care Planned Activity Planned Date Details Comments Source Future Scheduled 2031-03-[address] [facility] [address] [facility] Test 00:00:00 malignant neoplasm Medical C enter of colon (procedure) [code = [id number]] Future Scheduled 2031-03-[address] [facility] 00:00:00 malignant neoplasm Medical C enter of colon (procedure) [code = 191550407] Future Scheduled 2031-03-[address] [facility] 00:00:00 malignant neoplasm Medical C enter of colon (procedure) [code = 368815992] Future Scheduled 2031-03-[address] [facility] 00:00:00 malignant neoplasm Medical C enter of colon (procedure) [code = 027413320] Future Scheduled 2031-03-[address] [facility] 00:00:00 malignant neoplasm Medical C enter of colon (procedure) [code = 859025667] Future Scheduled 2031-03-[address] [facility] 00:00:00 malignant neoplasm Medical C enter of colon (procedure) [code = 496864961] Future Scheduled 2029-01-[address] [facility]00 (procedure) [code = [facility] [id number]] Future Scheduled 2023-10-[address] [facility] 00:00:00 (procedure) [code = [facility] 94562500] Future Scheduled 2023-10-[address] [facility] 00:00:00 (procedure) [code = [facility] 74516855] Future Scheduled 2023-10-[address] [facility] 00:00:00 (procedure) [code = [facility] 05863911] Future Scheduled 2023-10-[address] [facility] 00:00:00 (procedure) [code = [facility] 36135704] Future Scheduled 2022-06-[address] [facility] Test 00:00:00 (#1) [code = [facility] INFLUENZA VACCINE (#1)] Future Scheduled 2022-06-02 Screening for [facility] Test 13:08:36 malignant neoplasm of Medici ne of colon (procedure) [code = 383390825] Future Scheduled 2022-06-02 TETANUS SHOT (ADULT) [facility] Test 13:08:36 [code = TETANUS SHOT of Medi cine (ADULT)] Future Scheduled 2022-06-02 Diabetic foot [facility] 13:08:36 examination of Medicine (regime/therapy) [code = 905132044] Future Scheduled 2022-06-02 BMI FOLLOW UP PLAN [facility] Test 13:08:36 [code = BMI FOLLOW of Medici ne UP PLAN] Future Scheduled 2022-06-02 Screening for [facility] Test 13:08:36 malignant neoplasm of Medici ne of lung (procedure) [code = 992451896] Future Scheduled 2022-06-02 ANNUAL DIABETIC [facility] 13:08:36 RETINOPATHY of Medicine SCREENING [code = ANNUAL DIABETIC RETINOPATHY SCREENING] Future Scheduled 2022-06-02 COVID-19 Vaccine (2 [employer] Test 13:08:36 - Pfizer series) of Medicine [code = COVID-19 Vaccine (2 - Pfizer series)] Future Scheduled 2022-06-02 MEDICARE AWV [facility] Test 13:08:36 (Initial) [code = of Medicin e MEDICARE AWV (Initial)] Future Scheduled 2022-06-02 FLU VACCINE > 6 [facility] Test 13:08:36 MONTHS [code = FLU of Medici ne VACCINE > 6 MONTHS] Future Scheduled 2022-06-02 Screening for [facility] Test 13:08:36 malignant neoplasm of Medici ne of breast (procedure) [code = 669069155] Future Scheduled 2022-06-02 Hemoglobin A1c [facility] Test 13:08:36 measurement of Medicine (procedure) [code = 67676033] Future Scheduled 2022-06-02 Screening for [facility] Test 13:08:36 malignant neoplasm of Medici ne of cervix (procedure) [code = 778394583] Future Scheduled 2022-06-02 Pneumococcal [facility] Test 13:08:36 Combined (3 - PPSV23 of Medi cine or PCV20) [code = Pneumococcal Combined (3 - PPSV23 or PCV20)] Future Scheduled 2021-10-[address] [...] 00:00:00 protein (procedure) [facility] [code = 149512417] Future Scheduled 2021-10-01 Urine screening for [facility] 00:00:00 protein (procedure) [facility] [code = 284896917] Future Scheduled 2021-08-22 Screening for [facility] Test 10:15:10 malignant neoplasm of Medici ne of colon (procedure) [code = 544573485] Future Scheduled 2021-08-22 TETANUS SHOT (ADULT) [employer] Test 10:15:10 [code = TETANUS SHOT of Medi cine (ADULT)] Future Scheduled 2021-08-22 Diabetic foot [facility] Test 10:15:10 examination of Medicine (regime/therapy) [code = 021687437] Future Scheduled 2021-08-22 BMI FOLLOW UP PLAN [employer] Test 10:15:10 [code = BMI FOLLOW of Medici ne UP PLAN] Future Scheduled 2021-08-22 ANNUAL DIABETIC [facility] Test 10:15:10 RETINOPATHY of Medicine SCREENING [code = ANNUAL DIABETIC RETINOPATHY SCREENING] Future Scheduled 2021-08-22 COVID-19 Vaccine (2 [employer] Test 10:15:10 - Pfizer 3-dose of Medicine booster series) [code = COVID-19 Vaccine (2 - Pfizer 3-dose booster series)] Future Scheduled 2021-08-22 Hemoglobin A1c [facility] Test 10:15:10 measurement of Medicine (procedure) [code = 00739127] Future Scheduled 2021-08-22 Screening for [facility] 10:15:10 malignant neoplasm of Medici ne of breast (procedure) [code = 350558219] Future Scheduled 2021-08-22 Screening for [facility] 10:15:10 malignant neoplasm of Medici ne of cervix (procedure) [code = 583188622] Future Scheduled 2021-08-22 Pneumococcal [facility] Test 10:15:10 Combined (2 of 2 - of Medici ne PPSV23) [code = Pneumococcal Combined (2 of 2 - PPSV23)] Future Scheduled 2021-08-18 Screening for [facility] 12:47:58 malignant neoplasm of Medici ne of colon (procedure) [code = 990240294] Future Scheduled 2021-08-18 TETANUS SHOT (ADULT) [employer] Test 12:47:58 [code = TETANUS SHOT of Medi cine (ADULT)] Future Scheduled 2021-08-18 Diabetic foot [facility] Test 12:47:58 examination of Medicine (regime/therapy) [code = 897143131] Future Scheduled 2021-08-18 BMI FOLLOW UP PLAN [facility] Test 12:47:58 [code = BMI FOLLOW of Medici ne UP PLAN] Future Scheduled 2021-08-18 ANNUAL DIABETIC [facility] Test 12:47:58 RETINOPATHY of Medicine SCREENING [code = ANNUAL DIABETIC RETINOPATHY SCREENING] Future Scheduled 2021-08-18 COVID-19 Vaccine (2 [employer] [facility] 12:47:58 - Pfizer 3-dose of Medicine booster series) [code = COVID-19 Vaccine (2 - Pfizer 3-dose booster series)] Future Scheduled 2021-08-18 Hemoglobin A1c [facility] Test 12:47:58 measurement of Medicine (procedure) [code = 58076116] Future Scheduled 2021-08-18 Screening for [facility] Test 12:47:58 malignant neoplasm of Medici ne of breast (procedure) [code = 070881910] Future Scheduled 2021-08-18 Screening for [facility] Test 12:47:58 malignant neoplasm of Medici ne of cervix (procedure) [code = 355075302] Future Scheduled 2021-08-18 BCM AMB Pneumococcal [facility] Test 12:47:58 Combined (testing) of Medici ne (2 of 2 - PPSV23) [code = BCM AMB Pneumococcal Combined (testing) (2 of 2 - PPSV23)] Future Scheduled 2021-08-18 SR1 AND REPAIR [code 1 Occurrences [facility] [place] Test 12:03:05 = 77106] starting of Medicine 08/18/2021 until 08/18/2022 Future Scheduled 2021-07-30 Screening for [facility] Test 11:02:20 malignant neoplasm of Medici ne of colon (procedure) [code = 979302978] Future Scheduled 2021-07-30 TETANUS SHOT (ADULT) [facility] Test 11:02:20 [code = TETANUS SHOT of Medi cine (ADULT)] Future Scheduled 2021-07-30 Diabetic foot [facility] Test 11:02:20 examination of Medicine (regime/therapy) [code = 198332418] Future Scheduled 2021-07-30 BMI FOLLOW UP PLAN [facility] Test 11:02:20 [code = BMI FOLLOW of Medici ne UP PLAN] Future Scheduled 2021-07-30 ANNUAL DIABETIC [facility] Test 11:02:20 RETINOPATHY of Medicine SCREENING [code = ANNUAL DIABETIC RETINOPATHY SCREENING] Future Scheduled 2021-07-30 COVID-19 Vaccine (2 [employer] Test 11:02:20 - Pfizer 2-dose of Medicine series) [code = COVID-19 Vaccine (2 - Pfizer 2-dose series)] Future Scheduled 2021-07-30 [facility] of Medicine (procedure) [code = 89260407] Future Scheduled 2021-07-30 Screening for [facility] Test 11:02:20 malignant neoplasm of Medici ne of breast (procedure) [code = 412934809] Future Scheduled 2021-07-30 Screening for [facility] Test 11:02:20 malignant neoplasm of Medici ne of cervix (procedure) [code = 729230383] Future Scheduled 2021-07-30 ORT - XR WRIST RIGHT Ordered: [facility] Test 10:54:02 3 V (CHARGE ONLY) 07/30/2021 of Medicin e [code = 57352] Future Scheduled 2021-07-23 Screening for [facility] Test 11:15:52 malignant neoplasm of Medici ne of colon (procedure) [code = 907530308] Future Scheduled 2021-07-23 TETANUS SHOT (ADULT) [facility] Test 11:15:52 [code = TETANUS SHOT of Medi cine (ADULT)] Future Scheduled 2021-07-23 Diabetic foot [facility] Test 11:15:52 examination of Medicine (regime/therapy) [code = 242870796] Future Scheduled 2021-07-23 BMI FOLLOW UP PLAN [facility] Test 11:15:52 [code = BMI FOLLOW of Medici ne UP PLAN] Future Scheduled 2021-07-23 ANNUAL DIABETIC [facility] Test 11:15:52 RETINOPATHY of Medicine SCREENING [code = ANNUAL DIABETIC RETINOPATHY SCREENING] Future Scheduled 2021-07-23 COVID-19 Vaccine (2 [employer] Test 11:15:52 - Pfizer 2-dose of Medicine series) [code = COVID-19 Vaccine (2 - Pfizer 2-dose series)] Future Scheduled 2021-07-23 [facility] 11:15:52 measurement of Medicine (procedure) [code = 06739971] Future Scheduled 2021-07-23 Screening for [facility] Test 11:15:52 malignant neoplasm of Medici ne of breast (procedure) [code = 408033715] Future Scheduled 2021-07-23 Screening for [facility] Test 11:15:52 malignant neoplasm of Medici ne of cervix (procedure) [code = 122355748] Future Scheduled 2021-07-21 DEXA BONE DENSITY 1 Occurrences [facility] Test 11:32:58 SPINE AND HIP [code starting of Medic ine = 07873] 07/21/2021 until 07/21/2022 Future Scheduled 2021-07-[address] [facility] measurement [facility] (procedure) [code = 67368511] Future Scheduled 2021-07-[address] [facility] 00:00:00 measurement Medical Center (procedure) [code = 38050429] Future Scheduled 2021-06-[address] [...] (#1)] Future Scheduled 2021-06-09 XR WRIST RIGHT [facility] Test 11:32:18 (COMPLETE) [code = [place] [address]-3] Future Scheduled 2021-06-09 ORT - XR WRIST RIGHT Ordered: [employer] [facility] [employer] Test 11:31:03 3 V (CHARGE ONLY) 06/09/2021 of Medicin e [code = 81886] Future Scheduled 2021-06-09 XR WRIST RIGHT 1 Occurrences [facility] 11:31:03 (COMPLETE) [code = [place] 05584-1] 06/09/2021 until 06/09/2022 Future Scheduled 2021-06-09 Screening for [facility] Test 11:25:44 malignant neoplasm of Medici ne of colon (procedure) [code = 516896818] Future Scheduled 2021-06-09 Screening for [facility] Test 11:25:44 malignant neoplasm of Medici ne of breast (procedure) [code = 980501342] Future Scheduled 2021-06-09 TETANUS SHOT (ADULT) [employer] Test 11:25:44 [code = TETANUS SHOT of Medi cine (ADULT)] Future Scheduled 2021-06-09 Diabetic foot [facility] Test 11:25:44 examination of Medicine (regime/therapy) [code = 985829112] Future Scheduled 2021-06-09 BMI FOLLOW UP PLAN [facility] Test 11:25:44 [code = BMI FOLLOW of Medici ne UP PLAN] Future Scheduled 2021-06-09 ANNUAL DIABETIC [facility] Test 11:25:44 RETINOPATHY of Medicine SCREENING [code = ANNUAL DIABETIC RETINOPATHY SCREENING] Future Scheduled 2021-06-09 COVID-19 Vaccine (2 [employer] [facility] 11:25:44 - Pfizer 2-dose of Medicine series) [code = COVID-19 Vaccine (2 - Pfizer 2-dose series)] Future Scheduled 2021-06-09 FLU VACCINE > 6 [facility] Test 11:25:44 MONTHS [code = FLU of Medici ne VACCINE > 6 MONTHS] Future Scheduled 2021-06-09 [facility] 11:25:44 measurement of Medicine (procedure) [code = 73885701] Future Scheduled 2021-06-09 Screening for [facility] Test 11:25:44 malignant neoplasm of Medici ne of cervix (procedure) [code = 929423822] Future Scheduled 2021-05-03 Screening for [facility] 00:23:54 malignant neoplasm of Medici ne of colon (procedure) [code = 680129888] Future Scheduled 2021-05-03 Screening for [facility] 00:23:54 malignant neoplasm of Medici ne of breast (procedure) [code = 338812993] Future Scheduled 2021-05-03 TETANUS SHOT (ADULT) [employer] Test 00:23:54 [code = TETANUS SHOT of Medi cine (ADULT)] Future Scheduled 2021-05-03 Diabetic foot [facility] Test 00:23:54 examination of Medicine (regime/therapy) [code = 296068895] Future Scheduled 2021-05-03 BMI FOLLOW UP PLAN [employer] [employer] Test 00:23:54 [code = BMI FOLLOW of Medici ne UP PLAN] Future Scheduled 2021-05-03 ANNUAL DIABETIC [facility] Test 00:23:54 RETINOPATHY of Medicine SCREENING [code = ANNUAL DIABETIC RETINOPATHY SCREENING] Future Scheduled 2021-05-03 COVID-19 Vaccine (2 [employer] Test 00:23:54 - Pfizer 2-dose of Medicine series) [code = COVID-19 Vaccine (2 - Pfizer 2-dose series)] Future Scheduled 2021-05-03 FLU VACCINE > 6 [facility] Test 00:23:54 MONTHS [code = FLU of Medici ne VACCINE > 6 MONTHS] Future Scheduled 2021-05-03 Hemoglobin A1c [facility] Test 00:23:54 measurement of Medicine (procedure) [code = 30830619] Future Scheduled 2021-05-03 Screening for [facility] Test 00:23:54 malignant neoplasm of Medici ne of cervix (procedure) [code = 001159392] Future Scheduled 2021-04-30 Screening for [facility] Test 10:13:03 malignant neoplasm of Medici ne of colon (procedure) [code = 426660737] Future Scheduled 2021-04-30 Screening for [facility] Test 10:13:03 malignant neoplasm of Medici ne of breast (procedure) [code = 951694518] Future Scheduled 2021-04-30 TETANUS SHOT (ADULT) [facility] Test 10:13:03 [code = TETANUS SHOT of Medi cine (ADULT)] Future Scheduled 2021-04-30 Diabetic foot [facility] Test 10:13:03 examination of Medicine (regime/therapy) [code = 890152091] Future Scheduled 2021-04-30 BMI FOLLOW UP PLAN [employer] Test 10:13:03 [code = BMI FOLLOW of Medici ne UP PLAN] Future Scheduled 2021-04-30 ANNUAL DIABETIC [facility] Test 10:13:03 RETINOPATHY of Medicine SCREENING [code = ANNUAL DIABETIC RETINOPATHY SCREENING] Future Scheduled 2021-04-30 COVID-19 Vaccine (2 [employer] Test 10:13:03 - Pfizer 2-dose of Medicine series) [code = COVID-19 Vaccine (2 - Pfizer 2-dose series)] Future Scheduled 2021-04-30 FLU VACCINE > 6 [facility] Test 10:13:03 MONTHS [code = FLU of Medici ne VACCINE > 6 MONTHS] Future Scheduled 2021-04-30 Hemoglobin A1c [facility] Test 10:13:03 measurement of Medicine (procedure) [code = 55723122] Future Scheduled 2021-04-30 Screening for [facility] Test 10:13:03 malignant neoplasm of Medici ne of cervix (procedure) [code = 288576841] Future Scheduled 2021-04-30 ORT - XR HAND RIGHT Ordered: [employer] Test 09:42:55 3V ( CHARGE ONLY) 04/30/2021 of Medicin e [code = 47611] Future Scheduled 2021-04-29 Screening for [facility] 10:09:02 malignant neoplasm of Medici ne of colon (procedure) [code = 873323072] Future Scheduled 2021-04-29 Screening for [facility] 10:09:02 malignant neoplasm of Medici ne of breast (procedure) [code = 324368463] Future Scheduled 2021-04-29 TETANUS SHOT (ADULT) [facility] Test 10:09:02 [code = TETANUS SHOT of Medi cine (ADULT)] Future Scheduled 2021-04-29 Diabetic foot [facility] 10:09:02 examination of Medicine (regime/therapy) [code = 629057826] Future Scheduled 2021-04-29 BMI FOLLOW UP PLAN [employer] Test 10:09:02 [code = BMI FOLLOW of Medici ne UP PLAN] Future Scheduled 2021-04-29 ANNUAL DIABETIC [facility] Test 10:09:02 RETINOPATHY of Medicine SCREENING [code = ANNUAL DIABETIC RETINOPATHY SCREENING] Future Scheduled 2021-04-29 COVID-19 Vaccine (2 [employer] Test 10:09:02 - Pfizer 2-dose of Medicine series) [code = COVID-19 Vaccine (2 - Pfizer 2-dose series)] Future Scheduled 2021-04-29 FLU VACCINE > 6 [facility] Test 10:09:02 MONTHS [code = FLU of Medici ne VACCINE > 6 MONTHS] Future Scheduled 2021-04-29 Hemoglobin A1c [facility] Test 10:09:02 measurement of Medicine (procedure) [code = 33072883] Future Scheduled 2021-04-29 Screening for [facility] 10:09:02 malignant neoplasm of Medici ne of cervix (procedure) [code = 316945354] Future Scheduled 2021-04-09 Screening for [facility] 15:43:46 malignant neoplasm of Medici ne of colon (procedure) [code = 326379640] Future Scheduled 2021-04-09 Screening for [facility] 15:43:46 malignant neoplasm of Medici ne of breast (procedure) [code = 605902090] Future Scheduled 2021-04-09 TETANUS SHOT (ADULT) [facility] Test 15:43:46 [code = TETANUS SHOT of Medi cine (ADULT)] Future Scheduled 2021-04-09 Diabetic foot [facility] 15:43:46 examination of Medicine (regime/therapy) [code = 573280318] Future Scheduled 2021-04-09 BMI FOLLOW UP PLAN [facility] Test 15:43:46 [code = BMI FOLLOW of Medici ne UP PLAN] Future Scheduled 2021-04-09 ANNUAL DIABETIC [facility] Test 15:43:46 RETINOPATHY of Medicine [...] 6 MONTHS] Future Scheduled 2021-04-09 Hemoglobin A1c [facility] Test 15:43:46 measurement of Medicine (procedure) [code = 85148712] Future Scheduled 2021-04-09 Screening for [facility] 15:43:46 malignant neoplasm of Medici ne of cervix (procedure) [code = 482435992] Future Scheduled 2021-03-30 Screening for [facility] 17:52:45 malignant neoplasm of Medici ne of colon (procedure) [code = 378591993] Future Scheduled 2021-03-30 Screening for [facility] 17:52:45 malignant neoplasm of Medici ne of breast (procedure) [code = 502343700] Future Scheduled 2021-03-30 TETANUS SHOT (ADULT) [employer] Test 17:52:45 [code = TETANUS SHOT of Medi cine (ADULT)] Future Scheduled 2021-03-30 Diabetic foot [facility] Test 17:52:45 examination of Medicine (regime/therapy) [code = 103389710] Future Scheduled 2021-03-30 BMI FOLLOW UP PLAN [employer] [employer] Test 17:52:45 [code = BMI FOLLOW of Medici ne UP PLAN] Future Scheduled 2021-03-30 ANNUAL DIABETIC [facility] Test 17:52:45 RETINOPATHY of Medicine SCREENING [code = ANNUAL DIABETIC RETINOPATHY SCREENING] Future Scheduled 2021-03-30 COVID-19 Vaccine (2 [employer] [facility] 17:52:45 - Pfizer 2-dose of Medicine series) [code = COVID-19 Vaccine (2 - Pfizer 2-dose series)] Future Scheduled 2021-03-30 FLU VACCINE > 6 [facility] Test 17:52:45 MONTHS [code = FLU of Medici ne VACCINE > 6 MONTHS] Future Scheduled 2021-03-30 Hemoglobin A1c [facility] Test 17:52:45 measurement of Medicine (procedure) [code = 88977048] Future Scheduled 2021-03-30 Screening for [facility] Test 17:52:45 malignant neoplasm of Medici ne of cervix (procedure) [code = 390933767] Future Scheduled 2021-02-24 Screening for [facility] 16:06:39 malignant neoplasm of Medici ne of colon (procedure) [code = 172836700] Future Scheduled 2021-02-24 Screening for [facility] 16:06:39 malignant neoplasm of Medici ne of breast (procedure) [code = 798096875] Future Scheduled 2021-02-24 TETANUS SHOT (ADULT) [employer] Test 16:06:39 [code = TETANUS SHOT of Medi cine (ADULT)] Future Scheduled 2021-02-24 Diabetic foot [facility] Test 16:06:39 examination of Medicine (regime/therapy) [code = 194696991] Future Scheduled 2021-02-24 BMI FOLLOW UP PLAN [employer] [employer] Test 16:06:39 [code = BMI FOLLOW of Medici ne UP PLAN] Future Scheduled 2021-02-24 ANNUAL DIABETIC [facility] Test 16:06:39 RETINOPATHY of Medicine SCREENING [code = ANNUAL DIABETIC RETINOPATHY SCREENING] Future Scheduled 2021-02-24 MEDICARE IPPE [facility] Test 16:06:39 (WELCOME TO of Medicine MEDICARE) [code = MEDICARE IPPE (WELCOME TO MEDICARE)] Future Scheduled 2021-02-24 COVID-19 Vaccine (2 [employer] [facility] 16:06:39 - Pfizer 2-dose of Medicine series) [code = COVID-19 Vaccine (2 - Pfizer 2-dose series)] Future Scheduled 2021-02-24 FLU VACCINE > 6 [facility] Test 16:06:39 MONTHS [code = FLU of Medici ne VACCINE > 6 MONTHS] Future Scheduled 2021-02-[address] [facility] Test 16:06:39 measurement of Medicine (procedure) [code = 49640128] Future Scheduled 2021-02-24 Screening for [facility] Test 16:06:39 malignant neoplasm of Medici ne of cervix (procedure) [code = 701432798] Future Scheduled 2021-02-19 LARYNGOSCOPY, Ordered: [facility] Test 14:30:50 FLEXIBLE: DIAGNOSTIC 02/19/2021 of Medi cine [code = 60571] Future Scheduled 2021-02-19 ROLANDO SCOPE [code = Ordered: [facility] Test 13:16:46 [id number]] 02/19/2021 of Medicine Future Scheduled 2021-01-16 COVID-19 [...] [facility] Test 00:00:00 - Pfizer series) Medical [address] [facility] [code = COVID-19 VACCINE (2 - Pfizer series)] Diagnostic Test 2020-10-01 MAMMO 3D SCREENING Expected: [facility] Pending 00:00:00 BILATERAL [code = 10/01/2020, of Medicin e 97227] Expires: 04/01/2022 Diagnostic Test 2020-05-30 CBC W/AUTO DIFF WITH Expected: [facility] Pending 00:00:00 PLATELETS [code = 05/30/2020 of Tram e 86023-0] (Approximate), Expires: 08/30/2020 Future Scheduled 2019-09-30 SHINGLES [...] C enter of cervix (procedure) [code = 518133187] Future Scheduled 1985-01-[address] [facility] Test 00:00:00 malignant neoplasm Medical C enter of cervix (procedure) [code = 089076224] Future Scheduled 1985-01-[address] [facility] Test 00:00:00 malignant neoplasm Medical C enter of cervix (procedure) [code = 668493304] Future Scheduled 1985-01-[address] [facility] Test 00:00:00 malignant neoplasm Medical C enter of cervix (procedure) [code = 239718526] Future Scheduled 1985-01-[address] [facility] Test 00:00:00 malignant neoplasm Medical C enter of cervix (procedure) [code = 805951290] Future Scheduled 1983-01-13 [facility]AP[facility]AP[facility]TD [facility] C enter of breast (procedure) [code = 123492684] Future Scheduled [address] [facility] Test 00:00:00 malignant neoplasm Medical C enter of breast (procedure) [code = 216880078] Future Scheduled [address] [facility] Test 00:00:00 malignant neoplasm Medical C enter of breast (procedure) [code = 122819371] Future Scheduled [address] [facility] Test 00:00:00 malignant neoplasm Medical C enter of breast (procedure) [code = 847220001] Future Scheduled [address] [facility] Test 00:00:00 malignant neoplasm Medical C enter of breast (procedure) [code = 287022055] Future Scheduled [address] [facility] Test 00:00:00 (combo) [code = CT Medical C enter Colonography (combo)] Future Scheduled [address] [facility]:00 malignant neoplasm Medical C enter of colon (procedure) [code = 417920963] Future Scheduled [address] [facility] 00:00:00 malignant neoplasm Medical C enter of colon (procedure) [code = 115429654] Future Scheduled 1964 Sigmoidoscopy [code [facility] Test 00:00:00 = Sigmoidoscopy] Medical [address] Future Scheduled CELIAC DISEASE PANEL Ordered: [facility] Test [code = 82985-1] 06/20/2019 of Medicine Future Scheduled IGA [code = 2458-8] Ordered: [employer] [facility] 06/20/2019 of Medicine Future Scheduled C-REACTIVE PROTEIN Ordered: [facility] Test [code = 1988-5] 06/20/2019 of [facility] Future Scheduled COLON CANCER [facility] Test SCREENING: of Medicine COLONOSCOPY [code = COLON CANCER SCREENING: COLONOSCOPY] Future Scheduled SEDIMENTATION RATE Ordered: [facility] Test MODIFIED JUSTICE 06/20/2019 of Medic ine [code = 4537-7] Future Scheduled MAMMOGRAM ANNUAL [facility] Test [code = MAMMOGRAM of Medicin e ANNUAL] Future Scheduled TETANUS SHOT (ADULT) [facility] Test [code = TETANUS SHOT of Medi cine (ADULT)] Future Scheduled Diabetic foot [facility] Test examination of Medicine (regime/therapy) [code = 818266046] Future Scheduled BMI FOLLOW UP PLAN [employer] [employer] [facility] [code = BMI FOLLOW of Medici ne UP PLAN] Future Scheduled A1C TESTING EVERY 6 [employer] Test MONTHS [code = A1C of Medici ne TESTING EVERY 6 MONTHS] Future Scheduled FLU VACCINE > 6 [facility] C [facility]lege Test MONTHS [code = FLU of Medici ne VACCINE > 6 MONTHS] Future Scheduled ANNUAL DIABETIC [facility] Test RETINOPATHY of Medicine SCREENING [code = ANNUAL DIABETIC RETINOPATHY SCREENING] Future Scheduled CERVICAL CANCER [facility] C [facility]lege Test SCREENING 3 YEAR of Medicine FOLLOW UP [code = CERVICAL CANCER SCREENING 3 YEAR FOLLOW UP] Future Scheduled CALPROTECTIN, FECAL Ordered: [employer] [facility] [code = 36439-6] 06/20/2019 of Medicine Future Scheduled PANCREATIC ELASTASE Ordered: [employer] [facility] - FECAL [code = 06/20/2019 of Medicine 84638-7] Future Scheduled A1C TESTING EVERY 6 [employer] Test MONTHS [code = A1C of Medici ne TESTING EVERY 6 MONTHS] Future Scheduled COLON CANCER [facility] Test SCREENING: of Medicine COLONOSCOPY [code = COLON CANCER SCREENING: COLONOSCOPY] Future Scheduled ORT - XR FINGER Ordered: [facility] Test RIGHT 2V ( CHARGE 03/13/2020 of Medicin e ONLY) [code = 45142] Future Scheduled COLON CANCER [facility] Test SCREENING: of Medicine COLONOSCOPY [code = COLON CANCER SCREENING: COLONOSCOPY] Future Scheduled MAMMOGRAM ANNUAL [facility] Test [code = MAMMOGRAM of Medicin e ANNUAL] Future Scheduled TETANUS SHOT (ADULT) [employer] [employer] Test [code = TETANUS SHOT of Medi cine (ADULT)] Future Scheduled Diabetic foot [facility] examination of Medicine (regime/therapy) [code = 671883504] Future Scheduled BMI FOLLOW UP PLAN [facility] Test [code = BMI FOLLOW of Medici ne UP PLAN] Future Scheduled MAMMOGRAM ANNUAL [facility] Test [code = MAMMOGRAM of Medicin e ANNUAL] Future Scheduled A1C TESTING EVERY 6 [facility] [...] DIABETIC RETINOPATHY SCREENING] Future Scheduled CERVICAL CANCER [facility] C [facility]lege Test SCREENING 3 YEAR of Medicine FOLLOW UP [code = CERVICAL CANCER SCREENING 3 YEAR FOLLOW UP] Future Scheduled TETANUS SHOT (ADULT) [employer] [facility] Test [code = TETANUS SHOT of Medi cine (ADULT)] Future Scheduled Diabetic foot [facility] Test examination of Medicine (regime/therapy) [code = 516374294] Future Scheduled ANNUAL DIABETIC [facility] Test RETINOPATHY of Medicine SCREENING [...] UP] Future Scheduled FLU VACCINE > 6 [facility] C [facility]lege Test MONTHS [code = FLU of Medici ne VACCINE > 6 MONTHS] Future Scheduled ORT - XR FINGER Ordered: [facility] C [facility] Test RIGHT 2V ( CHARGE 06/12/2020 of Medicin e ONLY) [code = 97663] Future Scheduled ORT - XR FINGER Ordered: [facility] Test RIGHT 2V ( CHARGE 06/12/2020 of Medicin e ONLY) [code = 85574] Future Scheduled GA DME SUPPLY OR Ordered: [facility] Test ACCESSORY, NOS [code 06/12/2020 of Medi cine = A9999] Future Scheduled COLON CANCER [facility] Test SCREENING: of Medicine COLONOSCOPY [code = COLON CANCER SCREENING: COLONOSCOPY] Future Scheduled MAMMOGRAM ANNUAL [facility] Test [code = MAMMOGRAM of Medicin e ANNUAL] Future Scheduled TETANUS SHOT (ADULT) [employer] [facility] [employer] Test [code = TETANUS SHOT of Medi cine (ADULT)] Future Scheduled Diabetic foot [facility] examination of Medicine (regime/therapy) [code = 198893553] Future Scheduled BMI FOLLOW UP PLAN [employer] Test [code = BMI FOLLOW of Medici ne UP PLAN] Future Scheduled ZOSTER VACCINE (2 of [employer] [employer] Test 2) [code = ZOSTER [...] > 6 MONTHS] Future Scheduled ANNUAL DIABETIC [facility] Test RETINOPATHY of Medicine SCREENING [code = ANNUAL DIABETIC RETINOPATHY SCREENING] Future Scheduled CERVICAL CANCER [facility] C [facility] Test SCREENING 3 YEAR of Medicine FOLLOW UP [code = CERVICAL CANCER SCREENING 3 YEAR FOLLOW UP] Future Scheduled COLON CANCER [facility] Test SCREENING: of Medicine COLONOSCOPY [code = COLON CANCER SCREENING: COLONOSCOPY] Future Scheduled MAMMOGRAM ANNUAL [facility] Test [code = MAMMOGRAM of Medicin e ANNUAL] Future Scheduled TETANUS SHOT (ADULT) [employer] [facility] Test [code = TETANUS SHOT of Medi cine (ADULT)] Future Scheduled Diabetic foot [facility] Test examination of Medicine (regime/therapy) [code = 161962286] Future Scheduled BMI FOLLOW UP PLAN [employer] Test [code = BMI FOLLOW of Medici ne UP PLAN] Future Scheduled ZOSTER VACCINE (2 of [employer] [facility] [facility] 2) [code = ZOSTER of Medicin e VACCINE (2 of 2)] Future Scheduled MEDICARE IPPE [facility] Col [facility] Test (WELCOME TO of [facility] MEDICARE) [code = MEDICARE IPPE (WELCOME TO MEDICARE)] Future Scheduled A1C TESTING EVERY 6 [employer] Test MONTHS [code = A1C of Medici ne TESTING EVERY 6 MONTHS] Future Scheduled FLU VACCINE > 6 [facility] Test MONTHS [code = FLU of Medici ne VACCINE > 6 MONTHS] Future Scheduled ANNUAL DIABETIC [facility] Test RETINOPATHY of Medicine SCREENING [code = ANNUAL DIABETIC RETINOPATHY SCREENING] Future Scheduled CERVICAL CANCER [facility] C [facility] Test SCREENING 3 YEAR of Medicine FOLLOW UP [code = CERVICAL CANCER SCREENING 3 YEAR FOLLOW UP] Future Scheduled TSH [code = 02445-0] Ordered: [employer] [facility] [employer] [facility] 06/26/2020 of Medicine Future Scheduled T4 FREE [code = Ordered: [facility] C [facility]lege Test 3024-7] 06/26/2020 of Medicine Future Scheduled VITAMIN B12 [code = Ordered: [employer] [facility] 2132-9] 06/26/2020 of Medicine Future Scheduled LIPID PANEL [code = Ordered: [employer] [facility] 71174-7] 06/27/2020 of Medicine Future Scheduled MICROALBUMIN/CREAT Ordered: [employer] [facility] URINE RATIO [code = 06/27/2020 of Medic ine 9318-7] Future Scheduled COLON CANCER [facility] Test SCREENING: of Medicine COLONOSCOPY [code = COLON CANCER SCREENING: COLONOSCOPY] Future Scheduled MAMMOGRAM ANNUAL [facility] Test [code = MAMMOGRAM of Medicin e ANNUAL] Future Scheduled TETANUS SHOT (ADULT) [employer] [facility] [facility] [code = TETANUS SHOT of Medi cine (ADULT)] Future Scheduled Diabetic foot [facility] Test examination of Medicine (regime/therapy) [code = 976580856] Future Scheduled BMI FOLLOW UP PLAN [employer] Test [code = BMI FOLLOW of Medici ne UP PLAN] Future Scheduled ZOSTER VACCINE (2 of [employer] [facility] [facility] 2) [code = ZOSTER [...] EVERY 6 MONTHS] Future Scheduled CERVICAL CANCER [facility] C [facility] Test SCREENING 3 YEAR of Medicine FOLLOW UP [code = CERVICAL CANCER SCREENING 3 YEAR FOLLOW UP] Future Scheduled ORT - XR HAND RIGHT Ordered: [employer] [facility] 3V ( CHARGE ONLY) 08/28/2020 of Medicin e [code = 90510] Future Scheduled XR HAND RIGHT [facility] [employer] [facility] (COMPLETE) [code = of Medic[place] 18898-7] Future Scheduled COLON CANCER [facility] Test SCREENING: of Medicine COLONOSCOPY [code = COLON CANCER SCREENING: COLONOSCOPY] Future Scheduled MAMMOGRAM ANNUAL [facility] Test [code = MAMMOGRAM of Medicin e ANNUAL] Future Scheduled TETANUS SHOT (ADULT) [employer] [facility] [facility] [code = TETANUS SHOT of Medi cine (ADULT)] Future Scheduled Diabetic foot [facility] Test examination of Medicine (regime/therapy) [code = 957485549] Future Scheduled BMI FOLLOW UP PLAN [employer] Test [code = BMI FOLLOW of Medici ne UP PLAN] Future Scheduled ZOSTER VACCINE (2 of [employer] [facility] 2) [code = ZOSTER of Medicin e VACCINE (2 of 2)] Future Scheduled MEDICARE IPPE [facility] Test (WELCOME TO of Medicine MEDICARE) [code = MEDICARE IPPE (WELCOME TO MEDICARE)] Future Scheduled ANNUAL DIABETIC [facility] Test RETINOPATHY of Medicine SCREENING [code = ANNUAL DIABETIC RETINOPATHY SCREENING] Future Scheduled A1C TESTING EVERY 6 [employer] Test MONTHS [code = A1C of Medici ne TESTING EVERY 6 MONTHS] Future Scheduled FLU VACCINE > 6 Postponed from [facility] Test MONTHS [code = FLU 05/11/2020 of Medici ne VACCINE > 6 MONTHS] (Postpone Reason: Patient declined today) Future Scheduled CERVICAL CANCER [facility] Test SCREENING 3 YEAR of Medicine FOLLOW UP [code = CERVICAL CANCER SCREENING 3 YEAR FOLLOW UP] Future Scheduled CORTISOL ,24HR URINE Ordered: [employer] [facility] [employer] Test [code = 07085] 08/28/2020 of Medicine Future Scheduled 24 HR URINE CALCIUM Ordered: [employer] [facility] [code = 6874-2] 08/28/2020 of Medicine Future Scheduled CITRATE URINE 24 Ordered: [facility] Test HOUR [code = 74814] 08/28/2020 of Medic ine Future Scheduled CREATININE, 24HR Ordered: [facility] Test URINE [code = 08/28/2020 of Medicine 2162-6] Future Scheduled MICROALBUMIN/CREAT Ordered: [employer] [facility] URINE RATIO [code = 08/28/2020 of Medic ine 9318-7] Future Scheduled COLON CANCER [facility] Test SCREENING: of Medicine COLONOSCOPY [code = COLON CANCER SCREENING: COLONOSCOPY] Future Scheduled MAMMOGRAM ANNUAL [facility] Test [code = MAMMOGRAM of Medicin e ANNUAL] Future Scheduled TETANUS SHOT (ADULT) [employer] Test [code = TETANUS SHOT of Medi cine (ADULT)] Future Scheduled Diabetic foot [facility] Test examination of Medicine (regime/therapy) [code = 620936010] Future Scheduled BMI FOLLOW UP PLAN [employer] Test [code = BMI FOLLOW of Medici ne UP PLAN] Future Scheduled ZOSTER VACCINE (2 of [employer] [facility] 2) [code = ZOSTER of Medicin e VACCINE (2 of 2)] Future Scheduled MEDICARE IPPE [facility] Test (WELCOME TO of Medicine MEDICARE) [code = MEDICARE IPPE (WELCOME TO MEDICARE)] Future Scheduled ANNUAL DIABETIC [facility] RETINOPATHY of Medicine SCREENING [code = ANNUAL DIABETIC RETINOPATHY SCREENING] Future Scheduled A1C TESTING EVERY 6 [employer] Test MONTHS [code = A1C of Medici ne TESTING EVERY 6 MONTHS] Future Scheduled FLU VACCINE > 6 Postponed from [facility] MONTHS [code = FLU 05/11/2020 of Medici ne VACCINE > 6 MONTHS] (Postpone Reason: Patient declined today) Future Scheduled CERVICAL CANCER [facility] C [facility]lege Test SCREENING 3 YEAR of Medicine FOLLOW UP [code = CERVICAL CANCER SCREENING 3 YEAR FOLLOW UP] Future Scheduled LIPID PANEL [code = Ordered: [employer] [facility] 36385-3] 09/23/2020 of Medicine Future Scheduled COMPREHENSIVE Ordered: [facility] [employer] METABOLIC PANEL 09/23/2020 of Medicine [code = 49365-6] Future Scheduled COLON CANCER [facility] Test SCREENING: of Medicine COLONOSCOPY [code = COLON CANCER SCREENING: COLONOSCOPY] Future Scheduled MAMMOGRAM ANNUAL [facility] Test [code = MAMMOGRAM of Medicin e ANNUAL] Future Scheduled TETANUS SHOT (ADULT) [employer] [facility] [facility] [code = TETANUS SHOT of Medi cine (ADULT)] Future Scheduled Diabetic foot [facility] [employer] examination of Medicine (regime/therapy) [code = 476443740] Future Scheduled BMI FOLLOW UP PLAN [employer] Test [code = BMI FOLLOW of Medici ne UP PLAN] Future Scheduled ZOSTER VACCINE (2 of [employer] [facility] 2) [code = ZOSTER of Medicin e VACCINE (2 of 2)] Future Scheduled MEDICARE IPPE [facility] Col [facility]ge Test (WELCOME TO of Medicine MEDICARE) [code = MEDICARE IPPE (WELCOME TO MEDICARE)] Future Scheduled ANNUAL DIABETIC [facility] Test RETINOPATHY of Medicine SCREENING [code = ANNUAL DIABETIC RETINOPATHY SCREENING] Future Scheduled FLU VACCINE > 6 Postponed from [facility] Test MONTHS [code = FLU 05/11/2020 of Medici ne VACCINE > 6 MONTHS] (Postpone Reason: Patient declined today) Future Scheduled A1C TESTING EVERY 6 [facility] or [facility] Test MONTHS [code = A1C of Medici ne TESTING EVERY 6 MONTHS] Future Scheduled CERVICAL CANCER [facility] C [facility]lege Test SCREENING 3 YEAR of Medicine FOLLOW UP [code = CERVICAL CANCER SCREENING 3 YEAR FOLLOW UP] Future Scheduled ORT - XR KNEE BILAT Ordered: [employer] [facility] 4V (CHARGE ONLY) 09/26/2020 of Medicine [code = 79200] Future Scheduled COLON CANCER [facility] Test SCREENING: of Medicine COLONOSCOPY [code = COLON CANCER SCREENING: COLONOSCOPY] Future Scheduled MAMMOGRAM ANNUAL [facility] Test [code = MAMMOGRAM of Medicin e ANNUAL] Future Scheduled TETANUS SHOT (ADULT) [employer] [facility] [code = TETANUS SHOT of Medi cine (ADULT)] Future Scheduled Diabetic foot [facility] [employer] examination of Medicine (regime/therapy) [code = 039433309] Future Scheduled BMI FOLLOW UP PLAN [employer] Test [code = BMI FOLLOW of Medici ne UP PLAN] Future Scheduled ZOSTER VACCINE (2 of [employer] [facility] [facility] 2) [code = ZOSTER of Medicin e VACCINE (2 of 2)] Future Scheduled MEDICARE IPPE [facility] (WELCOME TO of Medicine MEDICARE) [code = MEDICARE IPPE (WELCOME TO MEDICARE)] Future Scheduled ANNUAL DIABETIC [facility] Test RETINOPATHY of Medicine SCREENING [code = ANNUAL DIABETIC RETINOPATHY SCREENING] Future Scheduled FLU VACCINE > 6 Postponed from [facility] Test MONTHS [code = FLU 05/11/2020 of Medici ne VACCINE > 6 MONTHS] (Postpone Reason: Patient declined today) Future Scheduled A1C TESTING EVERY 6 [employer] Test MONTHS [code = A1C of Medici ne TESTING EVERY 6 MONTHS] Future Scheduled CERVICAL CANCER [facility] C [facility] Test SCREENING 3 YEAR of Medicine FOLLOW UP [code = CERVICAL CANCER SCREENING 3 YEAR FOLLOW UP] Future Scheduled VITAMIN D 25 HYDROXY Ordered: [employer] [facility] [employer] Test [code = 1989-3] 10/01/2020 of Medicine Future Scheduled COLON CANCER [facility] Test SCREENING: of Medicine COLONOSCOPY [code = COLON CANCER SCREENING: COLONOSCOPY] Future Scheduled MAMMOGRAM ANNUAL [facility] Test [code = MAMMOGRAM of Medicin e ANNUAL] Future Scheduled TETANUS SHOT (ADULT) [employer] Test [code = TETANUS SHOT of Medi cine (ADULT)] Future Scheduled Diabetic foot [facility] Test examination of Medicine (regime/therapy) [code = 925937906] Future Scheduled BMI FOLLOW UP PLAN [employer] Test [code = BMI FOLLOW of Medici ne UP PLAN] Future Scheduled ZOSTER VACCINE (2 of [employer] [facility] [facility] 2) [code = ZOSTER of Medicin e VACCINE (2 of 2)] Future Scheduled MEDICARE IPPE [facility] Col [facility] Test (WELCOME TO of Medicine MEDICARE) [code = MEDICARE IPPE (WELCOME TO MEDICARE)] Future Scheduled ANNUAL DIABETIC [facility] Test RETINOPATHY of Medicine SCREENING [code = ANNUAL DIABETIC RETINOPATHY SCREENING] Future Scheduled A1C TESTING EVERY 6 [employer] Test MONTHS [code = A1C of Medici ne TESTING EVERY 6 MONTHS] Future Scheduled CERVICAL CANCER [facility] Test SCREENING 3 YEAR of Medicine FOLLOW UP [code = CERVICAL CANCER SCREENING 3 YEAR FOLLOW UP] Future Scheduled ORT - XR WRIST RIGHT Ordered: [employer] [facility] [employer] [facility] 3 V (CHARGE ONLY) 10/01/2020 of Medicin e [code = 37609] Future Scheduled COLON CANCER [facility] Test SCREENING: of Medicine COLONOSCOPY [code = COLON CANCER SCREENING: COLONOSCOPY] Future Scheduled MAMMOGRAM ANNUAL [employer] [facility] [code = MAMMOGRAM of Medicin e ANNUAL] Future Scheduled TETANUS SHOT (ADULT) [employer] [facility] [code = TETANUS SHOT of Medi cine (ADULT)] Future Scheduled Diabetic foot [facility] Test examination of Medicine (regime/therapy) [code = 427662293] Future Scheduled BMI FOLLOW UP PLAN [employer] Test [code = BMI FOLLOW of Medici ne UP PLAN] Future Scheduled ZOSTER VACCINE (2 of [employer] [facility] 2) [code = ZOSTER of Medicin e VACCINE (2 of 2)] Future Scheduled MEDICARE IPPE [facility] (WELCOME TO of Medicine MEDICARE) [code = MEDICARE IPPE (WELCOME TO MEDICARE)] Future Scheduled ANNUAL DIABETIC [facility] RETINOPATHY of Medicine SCREENING [code = ANNUAL DIABETIC RETINOPATHY SCREENING] Future Scheduled A1C TESTING EVERY 6 [employer] [facility] MONTHS [code = A1C of Medici ne TESTING EVERY 6 MONTHS] Future Scheduled CERVICAL CANCER [facility] C [facility] Test SCREENING 3 YEAR of Medicine FOLLOW UP [code = CERVICAL CANCER SCREENING 3 YEAR FOLLOW UP] Future Scheduled Screening for [facility] Test malignant neoplasm of Medici ne of colon (procedure) [code = 761686797] Future Scheduled COVID-19 Vaccine [facility] Test Evaluation [code = of Medici ne COVID-19 Vaccine Evaluation] Future Scheduled Screening for [facility] malignant neoplasm of Medici ne of breast (procedure) [code = 525004804] Future Scheduled TETANUS SHOT (ADULT) [employer] [facility] [facility] [code = TETANUS SHOT of Medi cine (ADULT)] Future Scheduled Diabetic foot [facility] [employer] examination of Medicine (regime/therapy) [code = 326066859] Future Scheduled BMI FOLLOW UP PLAN [employer] Test [code = BMI FOLLOW of Medici ne UP PLAN] Future Scheduled ZOSTER VACCINE (2 of [employer] [facility] 2) [code = ZOSTER of Medicin e VACCINE (2 of 2)] Future Scheduled ANNUAL DIABETIC [facility] [employer] RETINOPATHY of Medicine SCREENING [code = ANNUAL DIABETIC RETINOPATHY SCREENING] Future Scheduled MEDICARE IPPE [facility] (WELCOME TO of Medicine MEDICARE) [code = MEDICARE IPPE (WELCOME TO MEDICARE)] Future Scheduled Hemoglobin A1c [facility] Test measurement of Medicine (procedure) [code = 66032897] Future Scheduled Screening for [facility]ge Test malignant neoplasm of Medici ne of cervix (procedure) [code = 874722688] Future Scheduled A1C TESTING EVERY 6 [employer] Test MONTHS [code = A1C of Medici ne TESTING EVERY 6 MONTHS] Future Scheduled MAMMOGRAM ANNUAL [facility] Test [code = MAMMOGRAM of Medicin e ANNUAL] Future Scheduled TETANUS SHOT (ADULT) [employer] Test [code = TETANUS SHOT of Medi cine (ADULT)] Future Scheduled Diabetic foot [facility] Test examination of Medicine (regime/therapy) [code = 236669325] Future Scheduled ANNUAL DIABETIC [facility] [employer] RETINOPATHY of Medicine SCREENING [code = ANNUAL DIABETIC RETINOPATHY SCREENING] Future Scheduled BMI FOLLOW UP PLAN [employer] Test [code = BMI FOLLOW of Medici ne UP PLAN] Future Scheduled HIV SCREENING [code [employer] [facility] = HIV SCREENING] of Medicine Future Scheduled CERVICAL CANCER [facility] Test SCREENING 3 YEAR of Medicine FOLLOW UP [code = CERVICAL CANCER SCREENING 3 YEAR FOLLOW UP] Future Scheduled FLU VACCINE > 6 Postponed from [facility] Test MONTHS [code = FLU 05/11/2019 (Other) of Medicine VACCINE > 6 MONTHS] Future Scheduled COLON CANCER [facility] Test SCREENING: of Medicine COLONOSCOPY [code = COLON CANCER SCREENING: COLONOSCOPY] Future Scheduled LIPID PANEL [code = Ordered: [employer] [facility] 23424-6] 08/14/2019 of Medicine Future Scheduled MICROALBUMIN/CREAT Ordered: [facility] [place] Test URINE RATIO [code = 08/14/2019 of Medic ine 9318-7] Future Scheduled A1C TESTING EVERY 6 [employer] [facility] MONTHS [code = A1C of Medici ne TESTING EVERY 6 MONTHS] Future Scheduled MAMMOGRAM ANNUAL [facility] Test [code = MAMMOGRAM of Medicin e ANNUAL] Future Scheduled TETANUS SHOT (ADULT) [employer] Test [code = TETANUS SHOT of Medi cine (ADULT)] Future Scheduled Diabetic foot [facility] examination of Medicine (regime/therapy) [code = 308123335] Future Scheduled ANNUAL DIABETIC [facility] Test RETINOPATHY of Medicine SCREENING [...] UP] Future Scheduled FLU VACCINE > 6 [facility] Test MONTHS [code = FLU of Medici ne VACCINE > 6 MONTHS] Future Scheduled COLON CANCER [facility] Test SCREENING: of Medicine COLONOSCOPY [code = COLON CANCER SCREENING: COLONOSCOPY] Future Scheduled MAMMOGRAM ANNUAL [facility] Test [code = MAMMOGRAM of Medicin e ANNUAL] Future Scheduled TETANUS SHOT (ADULT) [employer] Test [code = TETANUS SHOT of Medi cine (ADULT)] Future Scheduled Diabetic foot [facility] Test examination of Medicine (regime/therapy) [code = 242617848] Future Scheduled ANNUAL DIABETIC [facility] Test RETINOPATHY of Medicine SCREENING [code = ANNUAL DIABETIC RETINOPATHY SCREENING] Future Scheduled BMI FOLLOW UP PLAN [employer] Test [code = BMI FOLLOW of Medici ne UP PLAN] Future Scheduled HIV SCREENING [code [employer] [facility] = HIV SCREENING] of Medicine Future Scheduled CERVICAL CANCER [facility] C [facility] Test SCREENING 3 YEAR of Medicine FOLLOW UP [code = CERVICAL CANCER SCREENING 3 YEAR FOLLOW UP] Future Scheduled FLU VACCINE > 6 [facility] C [facility] Test MONTHS [code = FLU of Medici ne VACCINE > 6 MONTHS] Future Scheduled A1C TESTING EVERY 6 [employer] [facility] MONTHS [code = A1C of Medici ne TESTING EVERY 6 MONTHS] Future Scheduled COLON CANCER [facility] Test SCREENING: of Medicine COLONOSCOPY [code = COLON CANCER SCREENING: COLONOSCOPY] Future Scheduled COLON CANCER [facility] Test SCREENING: of Medicine COLONOSCOPY [code = COLON CANCER SCREENING: COLONOSCOPY] Future Scheduled MAMMOGRAM [facility]NUAL [facility] College Test [code = MAMMOGRAM of Medicin e ANNUAL] Future Scheduled TETANUS SHOT (ADULT) [employer] Test [code = TETANUS SHOT of Medi cine (ADULT)] Future Scheduled Diabetic foot [facility] Col lege Test examination of Medicine (regime/therapy) [code = 901641926] Future Scheduled BMI FOLLOW UP PLAN [employer] Test [code = BMI FOLLOW of Medici ne UP PLAN] Future Scheduled HIV SCREENING [code [employer] Test = HIV SCREENING] of Medicine Future Scheduled CERVICAL CANCER [facility] C ollege Test SCREENING 3 YEAR of Medicine FOLLOW UP [code = CERVICAL CANCER SCREENING 3 YEAR FOLLOW UP] Future Scheduled A1C TESTING EVERY 6 [employer] Test MONTHS [code = A1C of Medici ne TESTING EVERY 6 MONTHS] Future Scheduled ANNUAL DIABETIC [facility] C [employer]lege Test RETINOPATHY of Medicine SCREENING [code = ANNUAL DIABETIC RETINOPATHY SCREENING] Future Scheduled ORT - XR FINGER Ordered: [facility] C [employer]lege Test RIGHT 2V ( CHARGE 11/14/2019 of Medicin e ONLY) [code = 41576] Future Scheduled COLON CANCER [facility] Danny ege Test SCREENING: of Medicine COLONOSCOPY [code = COLON CANCER SCREENING: COLONOSCOPY] Future Scheduled MAMMOGRAM ANNUAL [employer] Test [code = MAMMOGRAM of Medicin e ANNUAL] Future Scheduled TETANUS SHOT (ADULT) [employer] Test [code = TETANUS SHOT of Medi cine (ADULT)] Future Scheduled Diabetic foot [facility] Col [employer]ge Test examination of Medicine (regime/therapy) [code = 543730964] Future Scheduled BMI FOLLOW UP PLAN [employer] Test [code = BMI FOLLOW of Medici ne UP PLAN] Future Scheduled HIV SCREENING [code [employer] Test = HIV SCREENING] of Medicine Future Scheduled CERVICAL CANCER [facility] C [employer] Test SCREENING 3 YEAR of Medicine FOLLOW UP [code = CERVICAL CANCER SCREENING 3 YEAR FOLLOW UP] Future Scheduled A1C TESTING EVERY 6 [employer] Test MONTHS [code = A1C of Medici ne TESTING EVERY 6 MONTHS] Future Scheduled ANNUAL DIABETIC [facility] [employer] Test RETINOPATHY of Medicine SCREENING [code = ANNUAL DIABETIC RETINOPATHY SCREENING] Future Scheduled COLON CANCER [employer] Danny ege Test SCREENING: of Medicine COLONOSCOPY [code = COLON CANCER SCREENING: COLONOSCOPY] Future Scheduled MAMMOGRAM ANNUAL [facility] College Test [code = MAMMOGRAM of Medicin e ANNUAL] Future Scheduled TETANUS SHOT (ADULT) [employer] Test [code = TETANUS SHOT of Medi cine (ADULT)] Future Scheduled Diabetic foot [employer] Test examination of Medicine (regime/therapy) [code = 976971272] Future Scheduled BMI FOLLOW UP PLAN [employer] [...] EVERY 6 MONTHS] Future Scheduled ANNUAL DIABETIC [facility] [employer] Test RETINOPATHY of Medicine SCREENING [code = ANNUAL DIABETIC RETINOPATHY SCREENING] Future Scheduled COLON CANCER [employer] Danny [employer]ge Test SCREENING: of Medicine COLONOSCOPY [code = COLON CANCER SCREENING: COLONOSCOPY] Future Scheduled MAMMOGRAM ANNUAL [facility] College Test [code = MAMMOGRAM of Medicin e ANNUAL] Future Scheduled TETANUS SHOT (ADULT) [employer] Test [code = TETANUS SHOT of Medi cine (ADULT)] Future Scheduled Diabetic foot [employer] Test examination of Medicine (regime/therapy) [code = 530097789] Future Scheduled BMI FOLLOW UP PLAN [employer] Test [code = BMI FOLLOW of Medici ne UP PLAN] Future Scheduled HIV SCREENING [code [employer] Test = HIV SCREENING] of Medicine Future Scheduled CERVICAL CANCER [facility] C [employer]lege Test SCREENING 3 YEAR of Medicine FOLLOW UP [code = CERVICAL CANCER SCREENING 3 YEAR FOLLOW UP] Future Scheduled A1C TESTING EVERY 6 [employer] Test MONTHS [code = A1C of Medici ne TESTING EVERY 6 MONTHS] Future Scheduled ANNUAL DIABETIC [facility] [employer] Test RETINOPATHY of Medicine SCREENING [code = ANNUAL DIABETIC RETINOPATHY SCREENING] Future Scheduled HANDICAPPED PLACARD Ordered: [employer] Test [code = NOCPT] 11/28/2019 of Medicine Future Scheduled COLON CANCER [facility] Danny ege Test SCREENING: of Medicine COLONOSCOPY [code = COLON CANCER SCREENING: COLONOSCOPY] Future Scheduled MAMMOGRAM ANNUAL [facility] College Test [code = MAMMOGRAM of Medicin e ANNUAL] Future Scheduled TETANUS SHOT (ADULT) [employer] Test [code = TETANUS SHOT of Medi cine (ADULT)] Future Scheduled Diabetic foot [facility] Col [employer]ge Test examination of Medicine (regime/therapy) [code = 037113951] Future Scheduled BMI FOLLOW UP PLAN [employer] Test [code = BMI FOLLOW of Medici ne UP PLAN] Future Scheduled HIV SCREENING [code [employer] Test = HIV SCREENING] of Medicine Future Scheduled CERVICAL CANCER [facility] C [employer] Test SCREENING 3 YEAR of Medicine FOLLOW UP [code = CERVICAL CANCER SCREENING 3 YEAR FOLLOW UP] Future Scheduled A1C TESTING EVERY 6 [employer] Test MONTHS [code = A1C of Medici ne TESTING EVERY 6 MONTHS] Future Scheduled ANNUAL DIABETIC [facility] C [employer] Test RETINOPATHY of Medicine SCREENING [code = ANNUAL DIABETIC RETINOPATHY SCREENING] Future Scheduled COLON CANCER [employer] Danny ege Test SCREENING: of Medicine COLONOSCOPY [code = COLON CANCER SCREENING: COLONOSCOPY] Future Scheduled MAMMOGRAM ANNUAL [employer] Test [code = MAMMOGRAM of Medicin e ANNUAL] Future Scheduled TETANUS SHOT (ADULT) [employer] Test [code = TETANUS SHOT of Medi cine (ADULT)] Future Scheduled Diabetic foot [employer] Test examination of Medicine (regime/therapy) [code = [id number]] Future Scheduled BMI FOLLOW UP PLAN [employer] [...] EVERY 6 MONTHS] Future Scheduled ANNUAL DIABETIC [facility] [employer] Test RETINOPATHY of Medicine SCREENING [code = ANNUAL DIABETIC RETINOPATHY SCREENING] Future Scheduled COLON CANCER [facility] Danny [employer]ge Test SCREENING: of Medicine COLONOSCOPY [code = COLON CANCER SCREENING: COLONOSCOPY] Future Scheduled MAMMOGRAM ANNUAL [facility] Test [code = MAMMOGRAM of Medicin e ANNUAL] Future Scheduled TETANUS SHOT (ADULT) [employer] Test [code = TETANUS SHOT of Medi cine (ADULT)] Future Scheduled Diabetic foot [facility] Col lege Test examination of Medicine (regime/therapy) [code = 072701530] Future Scheduled BMI FOLLOW UP PLAN [employer] Test [code = BMI FOLLOW of Medici ne UP PLAN] Future Scheduled HIV SCREENING [code [employer] Test = HIV SCREENING] of Medicine Future Scheduled CERVICAL CANCER [facility] [employer] Test SCREENING 3 YEAR of [...] > 6 MONTHS] Future Scheduled ANNUAL DIABETIC [facility] [employer] Test RETINOPATHY of Medicine SCREENING [code = ANNUAL DIABETIC RETINOPATHY SCREENING] Future Scheduled PAP SMEAR - IMAGE Ordered: [facility] Test GUIDED - NON 02/21/2020 of Medicine MEDICARE [code = NOCPT] Future Scheduled HPV HIGH RISK W Ordered: [facility] ollege Test GENOTYPE,TP [code = 02/21/2020 of Medic ine NOCPT] Future Scheduled WET PREP W/ TRICH Ordered: [facility] Test CULT REFLEX [code = 02/21/2020 of Medic ine NOCPT] Future Scheduled VAGINAL PATHOGEN DNA Ordered: [facility] Test PANEL [code = NOCPT] 02/21/2020 of Medi cine Future Scheduled COLON CANCER [facility] Danny [employer]ge Test SCREENING: of Medicine COLONOSCOPY [code = COLON CANCER SCREENING: COLONOSCOPY] Future Scheduled MAMMOGRAM ANNUAL [facility] Test [code = MAMMOGRAM of Medicin e ANNUAL] Future Scheduled TETANUS SHOT (ADULT) [employer] Test [code = TETANUS SHOT of Medi cine (ADULT)] Future Scheduled Diabetic foot [facility] Col [employer]ge Test examination of Medicine (regime/therapy) [code = 738867936] Future Scheduled BMI FOLLOW UP PLAN [employer] Test [code = BMI FOLLOW of Medici ne UP PLAN] Future Scheduled HIV SCREENING [code [employer] Test = HIV SCREENING] of Medicine Future Scheduled CERVICAL CANCER [facility] [employer] Test SCREENING 3 YEAR of [...] > 6 MONTHS] Future Scheduled ANNUAL DIABETIC [facility] [employer] Test RETINOPATHY of Medicine SCREENING [code = ANNUAL DIABETIC RETINOPATHY SCREENING] Future Scheduled ORT - XR FINGER Ordered: [facility] C [employer] Test RIGHT 2V ( CHARGE 02/21/2020 of Medicin e ONLY) [code = 43267] Future Scheduled COLON CANCER [facility] Danny [employer]ge Test SCREENING: of Medicine COLONOSCOPY [code = COLON CANCER SCREENING: COLONOSCOPY] Future Scheduled MAMMOGRAM ANNUAL [facility] Test [code = MAMMOGRAM of Medicin e ANNUAL] Future Scheduled TETANUS SHOT (ADULT) [employer] Test [code = TETANUS SHOT of Medi cine (ADULT)] Future Scheduled Diabetic foot [facility] Col [employer]ge Test examination of Medicine (regime/therapy) [code = 708867268] Future Scheduled BMI FOLLOW UP PLAN [employer] Test [code = BMI FOLLOW of Medici ne UP PLAN] Future Scheduled HIV SCREENING [code [employer] Test = HIV SCREENING] of Medicine Future Scheduled CERVICAL CANCER [facility] C [employer] Test SCREENING 3 YEAR of [...] > 6 MONTHS] Future Scheduled ANNUAL DIABETIC [facility] C [employer] Test RETINOPATHY of Medicine SCREENING [code = ANNUAL DIABETIC RETINOPATHY SCREENING] Future Scheduled GEL ONE PROC INJ 1 Occurrences [facility] Test [code = 54642] starting of Medicine 09/26/2020 until 09/26/2021 Future Scheduled XR HAND RIGHT 1 Occurrences [facility] [employer] Test (COMPLETE) [code = [place] [address]-0] 08/28/2020 until 03/28/2021 Future Scheduled NM GASTRIC EMPTYING 1 Occurrences [facility] Test SOLID [code = 74639] starting of Medi cine 06/20/2019 until 12/18/2020 Instructions Shortness of Breath, [facility] Adult, [facility] Instructions Cirrhosis [facility] Encounters Start End Encounter Admission Attending Care Care Encounter Source Date/Time Date/Time Type Type Clinicians Facility Department ID 2021-07-27 Outpatient lc.patric [facility] [id number] [facility] 15:08:48 [facility] [id number] [facility] DAXKO 2021-07-27 Outpatient lc.patric [facility] [id number] Legacy 09:09:07 [facility] 92551 [facility] DAXKO 2021-07-24 Outpatient lc.jose [facility] [id number] Legacy 20:47:19 [id number] [facility] DAXKO 2021-07-24 Outpatient lc.conradarp [facility] [id number] Legacy 20:45:14 [id number] [facility] DAXKO 2021-07-24 Outpatient lc.conradarp [facility] [id number] Legacy 20:41:03 [id number] [facility] 2021-07-24 Outpatient lc.conradarp [facility] [id number] Legacy 20:11:15 [id number] [facility] DAXKO 2021-07-24 Outpatient lc.conradarp [facility] [id number] Legacy 19:02:39 [id number] [facility] DAXKO 2021-07-24 Outpatient lc.conradarp [facility] [id number] [facility] 18:21:42 [id number] [facility] 2021-07-24 Outpatient lc.ocnradarp [facility] [id number] Legacy 18:15:25 [id number] [facility] DAXKO 2021-07-24 Outpatient lc.conradarp [facility] [id number] [facility] 18:10:52 [id number] [facility] DAXKO 2021-07-24 Outpatient [facility] [id number] Legacy 18:00:18 [id number] [facility] 2021-07-20 Outpatient JOSÉ MIGUEL [facility] Surgery [id number] SLE 05:39:43 IVELISSE 2021-07-20 Outpatient TOM MANN [facility] Surgery [id number] [facility] 00:01:39 2021-07-19 Outpatient TOM MANN [facility] Surgery [id number] [facility] 09:59:31 2021-07-15 Outpatient JOSÉ MIGUEL SLEChuck Surgery [id number] SLE 13:50:46 IVELISSE 2021-05-08 Inpatient [facility] [id number] [facility] 17:40:00 -[id number] [facility] 2022-06-01 2022-06-01 Office BRIELLE Jordan [id number] [facility] 13:00:00 14:55:07 Visit Laurie Mayorga AMBULATOR 350.1.13.21 College Y 0.2.7.2.686 of [id number] Medi praneeth 325 e 2022-06-01 2022-06-01 Outpatient SHANELLE [facility] [id number] [facility] 08:51:32 09:36:52 BHAVESH [employer] 2022-05-08 2022-05-08 Outpatient IRVIN AIKEN [facility] [id number] [facility] 12:57:10 13:31:04 Colleg [employer] Medicin [employer] 2022-04-30 2022-04-30 Outpatient DESIREE [facility] [id number] [facility] 15:21:10 16:45:44 , CLAU [employer] 2022-03-18 2022-03-18 Rubina Olsen [facility] [id number] 00:00[facility]00 00:00:[address] [facility] 2022-03-16 2022-03-16 RefTom Hamilton [facility] [id number] 00:00:00 00:00:00 [facility] 2022-02-26 2022-02-26 Outpatient SHANELLE [facility] [id number] [facility] 15:40:59 15:56:31 BHAVESH [employer] 2022-02-12 2022-02-12 Video - Alan [facility] [id number] 12:30:00 13:00:00 Telemedici [facility] 2022-02-12 2022-02-12 Outpatient RIK PETTIT [facility] [id number] [facility] 11:52:01 11:52:01 CAM 2022-02-10 2022-02-10 Telephone Andrewrebecca [facility] [id number] 00:00:00 00:00:00 [facility] 2022-01-28 2022-01-28 [id number] 00:00:00 00:00:00 Only [facility] 2022-01-13 2022-01-13 [facility] Alan [facility] [id number] 10:09:26 23:59:00 Encounter [facility] 2022-01-13 2022-01-13 Outpatient RIK PETTIT [facility] [id number] [facility] 10:09:26 23:59:00 CAM 2022-01-13 2022-01-13 Outpatient WILLY SLEChuck [facility] [id number] [facility] 12:00:58 12:00:58 2022-01-13 2022-01-13 Stefano Phillips [facility] [id number] 11:30:00 11:40:00 Only [facility] 2021-11-24 2021-11-24 Outpatient SHENA [facility] [id number] [facility] 11:17:44 12:11:35 LALI [employer] 2021-11-17 2021-11-17 [facility] [id number] [facility] 11:18:44 12:17:07 LALI [employer] 2021-11-07 2021-11-07 Outpatient IRVIN AIKEN [facility] [id number] [facility] 14:55:03 15:31:12 [employer]in [employer] 2021-11-03 2021-11-03 Outpatient SHENA [facility] [id number] [facility] 10:52:14 12:07:26 LALI ribeiro of Medicin e 2021-10-28 2021-10-28 Outpatient EUGENIO [facility] [id number] [facility] 12:33:24 13:03:30 BETITO john of Medicin e 2021-10-22 2021-10-22 Outpatient RIK VILLAVICENCIO [facility] [id number] SLE 00:00:00 00:00:00 DIPJACOB 2021-10-09 2021-10-09 Outpatient NEGARSEDRICKQuintin [facility] [id number] [facility] 07:38:45 07:58:57 EDYTA rivera of Medicin e 2021-09-11 2021-09-11 Office Tom Mann [facility] [id number] [facility] 12:00:00 12:30:00 Visit Alan [facility] 2021-09-11 2021-09-11 Office Tom Mann [facility] [id number] [facility] 11:29:03 11:59:03 Visit Alan [facility] 2021-09-11 2021-09-11 Outpatient RIK PETTIT [facility] [id number] [facility] 11:29:03 11:29:03 CAM 2021-09-09 2021-09-09 Telephone Mathew [facility] [id number] 00:00:00 00:00:00 [facility] 2021-09-09 2021-09-09 Telephone Canreed [facility] [id number] 00:00:00 00:00:00 [facility] 2021-09-05 2021-09-05 Telephone Canreed [facility] [id number] 00:00:00 00:00:00 [facility] 2021-09-05 2021-09-05 Telephone Canreed [facility] [id number] 00:00:00 00:00:00 [facility] 2021-08-22 2021-08-22 Office BRIELLE Shaffer [id number] [id number] [facility] 08:30:00 10:15:12 Visit Kostas AMBULATOR 350.1.13.21 College Y 0.2.7.2.686 of [id number] [facility] 300 e 2021-08-20 2021-08-20 Emergency X MUTENDEREKI [facility] E[facility] [id number] [facility] 16:59:00 20:29:00 , DEWAYNE ity of [facility] 2021-08-20 2021-08-20 Emergency Mutendereki [facility] [id number] [id number] [facility] 16:59:00 20:29:00 , [facility] 350.1.13.[address] [facility] 4.2.7.2.686 [facility] zahra FALUN [id number] [address] ([facility]) 2021-08-18 2021-08-18 Office BRIELLE Shaffer [id number] [id number] [facility] 11:30:00 12:48:01 Visit Kostas AMBULATOR 350.1.13.21 College Y 0.2.7.2.686 of [id number] [facility] 300 e 2021-08-12 2021-08-12 [facility] [id number] 00:00:00 00:00:00 [facility] 2021-08-12 2021-08-12 [facility] [id number] 00:00:00 00:00:00 [facility] 2021-08-08 2021-08-08 [facility] [id number] [facility] 10:00:06 12:26:30 [employer] 2021-08-08 2021-08-08 [facility] [id number] [facility] 09:59:31 11:37:26 [employer] 2021-08-06 2021-08-06 Outpatient [facility] SLE [id number] [facility] 00:00:00 00:00:00 2021-08-04 2021-08-04 Outpatient BCM BCM [id number] [facility] 07:34:02 07:34:02 [employer] 2021-08-04 2021-08-04 Outpatient [facility] [id number] [facility] 07:33:40 07:33:40 [employer] 2021-07-30 2021-07-30 Office MARES III, BC [id number] [facility] 10:38:37 12:22:51 Visit IVELISSE AMBULATOR 350.1.13.21 College Y 0.2.7.2.686 of [id number] Medi praneeth 600 e 2021-07-30 2021-07-30 Outpatient [facility] [id number] [facility] 10:55:30 10:55:30 [employer]in [employer] 2021-07-29 2021-07-29 [facility] [id number] 13:34:59 23:59:00 Encounter [facility] 2021-07-29 2021-07-29 [facility] [id number] 13:34:59 23:59:00 Encounter [facility] 2021-07-29 2021-07-29 Outpatient WILLY JOSEPH, SLE SLE [id number] [facility] 13:34:59 23:59:00 [facility] 2021-07-29 2021-07-29 Outpatient EL SLE [facility] [id number] [facility] 00:00:00 00:00:00 2021-07-25 2021-07-25 Outpatient EL GENE, SLE [facility] [id number] [facility] 00:00:00 00:00:00 DIPABEN 2021-07-23 2021-07-23 Outpatient EL SLEH [facility] [id number] [facility] 00:00:00 00:00:00 2021-07-21 2021-07-21 Office ROSEMARICRUZ [facility] [id number] [id number] [facility] 11:09:51 13:05:23 Visit Noemi CYNDI AMBULATOR 350.1.13.21 College Y 0.2.7.2.686 [facility] [id number] Medi praneeth 370 e 2021-07-18 2021-07-18 Orders Corrie [facility] [id number] 00:00:00 00:00:00 Only [facility] 2021-07-18 2021-07-18 [facility] [id number] 00:00:00 00:00:00 Only [facility] 2021-07-15 2021-07-15 [facility] [id number] 00:00:00 00:00:00 Only [facility] 2021-07-15 2021-07-15 Orders Corrie, [facility] [id number] 00:00:00 00:00:00 Only [facility] 2021-07-02 2021-07-02 Outpatient MARES REGINA, [facility] [id number] [facility] 11:18:49 12:00:08 IVELISSE [employer] 2021-06-18 2021-06-18 Outpatient [facility] [id number] [facility] 11:29:57 14:05:20 [employer]in [employer] 2021-06-18 2021-06-18 Outpatient [facility] [id number] [facility] 11:29:21 13:46:10 [employer]in [employer] 2021-06-17 2021-06-17 Outpatient [facility] [id number] [facility] 15:28:38 16:36:30 LALI [employer] 2021-06-17 2021-06-17 Outpatient WILLY GENE, SLE SLE [id number] [facility] 00:00:00 00:00:00 DIPABEN 2021-06-11 2021-06-11 Outpatient SHENA [facility] [id number] [facility] 14:56:27 16:03:26 LALI [employer] 2021-06-09 2021-06-09 Outpatient [facility] [id number] [facility] 11:32:18 11:32:18 [employer] 2021-06-09 2021-06-09 Office José Miguel BELBruna 1.2.840.114 [id number] [facility] 10:48:51 10:58:51 Visit Ivelisse Manriquez AMBULATOR 350.1.13.21 College Y 0.2.7.2.686 [id number] Medi praneeth 600 e 2021-06-05 2021-06-05 Outpatient SHENA [facility] [id number] [facility] 11:56:38 12:54:56 LALI [employer] 2021-05-27 2021-05-27 Outpatient SHENA [facility] [id number] [facility] 15:22:55 16:17:41 LALI [employer] 2021-05-27 2021-05-27 Outpatient BECKER [facility] [id number] [facility] 14:43:13 15:17:03 BETITO Delgado ege of Medicin e 2021-05-20 2021-05-20 Outpatient SHANIQUA, [facility] [id number] [facility] 12:51:23 15:20:08 MANASA [employer] 2021-05-14 2021-05-14 Outpatient MARES III, [facility] [id number] [facility] 12:55:02 14:05:57 IVELISSE [employer] 2021-05-14 2021-05-14 Outpatient [facility] [id number] [facility] 13:24:40 13:24:40 [employer] 2021-05-11 2021-05-[facility] [id number] 00:00:00 00:00:00 [facility] 2021-05-10 2021-05-10 Telephone Roxana [facility] [id number] 00:00:00 00:00:00 [facility] 2021-05-09 2021-05-09 Telephone Roxana [facility] [id number] 00:00:00 00:00:00 Vivian [facility] 2021-05-08 2021-05-08 [facility] [id number] 05:43:00 12:53:[address] [facility] 2021-05-08 2021-05-08 Anesthesia Mat [facility] [id number] 07:50:00 10:44:00 Event [facility] 2021-05-08 2021-05-08 [facility] [id number] 07:30:00 10:00:00 [facility] 2021-05-08 2021-05-08 Outpatient SLE [facility] [id number] [facility] 00:00:00 00:00:00 2021-05-08 2021-05-08 Travel [facility] [id number] [facility] 00:[facility]:00 00:00:00 [facility] 2021-05-07 2021-05-07 [facility] [id number] 10:00:00 23:59:00 Encounter [facility] 2021-05-06 2021-05-07 Outpatient [facility] [id number] [facility] 15:07:17 07:35:25 LALIDUSTIN Wick 2021-05-07 2021-05-07 Outpatient EL SLE SLE [id number] [facility] 00:00:00 00:00:00 2021-05-07 2021-05-07 Telephone Karime [facility] [id number] 00:00:00 00:00:00 [facility] 2021-05-07 2021-05-07 Travel [facility] [id number] [facility] 00[facility]00 [facility] 2021-05-06 2021-05-06 [facility] [id number] 12:43:50 23:59:[address] [facility] 2021-05-06 2021-05-06 Outpatient EL SLE SLE [id number] [facility] 00:00:00 00:00:00 2021-05-06 2021-05-06 Outpatient SLE [facility]H [id number] [facility] 00:00:00 00:00:00 2021-05-06 2021-05-06 Outside [facility] [id number] [facility] 00:00:00 00:00:00 [facility] 2021-[facility]-01 2021-05-01 Office JERRODEMILY, BRIELLE 1.2.840.114 [id number] [facility] 15:30:19 17:28:23 Visit BHAVESH AMBULATOR 350.1.13.21 College Y 0.2.7.2.686 of [id number] Medi praneeth 300 e 2021-05-01 2021-05-01 Office Jerrodemily, BCM 1.2.840.114 [id number] 15:30:19 17:28:23 Visit Bhavesh AMBULATOR 350.1.13.21 Y 0.2.7.2.686 [id number] 300 2021-04-30 2021-04-30 Outpatient BCM BC [id number] [facility] 09:43:45 09:43:45 Colleg e [facility]in [facility] 2021-04-30 2021-04-30 Office Mares, BRIELLE 1.2.840.114 [id number] [facility] 09:06:11 09:16:11 Visit Ivelisse R AMBULATOR 350.1.13.21 College Y 0.2.7.2.686 of [id number] Medi praneeth 600 e 2021-04-30 2021-04-30 Office Mares, BCM 1.2.840.114 [id number] 09:06:11 09:16:11 Visit Ivelisse R AMBULATOR 350.1.13.21 Y 0.2.7.2.686 [id number] 600 2021-04-29 2021-04-30 Outpatient BCM [facility] [id number] [facility] 14:23:39 07:36:52 Colleg e [facility] Medicin e 2021-04-29 2021-04-30 Outpatient TAMMANBRIELLE [facility] [id number] [facility] 15:04:36 07:36:13 LALI ribeiro of Medicin e 2021-04-29 2021-04-29 Outpatient BECKERBRIELLE Stanley [facility] [id number] [facility] 14:08:21 14:56:39 BETITO john of Medicin e 2021-04-29 2021-04-29 Office BRIELLE Howell 1.2.840.114 [id number] [facility] 07:38:34 09:28:27 Visit Hugh AMBULATOR 350.1.13.21 College Young Y 0.2.7.2.686 of [id number] Medi praneeth 800 e 2021-04-29 2021-04-29 Office BRIELLE Howell 1.2.840.114 [id number] 07:38:34 09:28:27 Visit Hugh AMBULATOR 350.1.13.21 Young Y 0.2.7.2.686 [id number] 800 2021-04-19 2021-04-19 Reftyra Huitron [facility] [id number] 00:00:00 00:00:00 [facility] 2021-04-09 2021-04-09 Office BRIELLE MARES III 1.2.436.321 0008 [id number] [facility] 14:10:54 16:10:54 Visit IVELISSE AMBULATOR 350.1.13.21 College Y 0.2.7.2.686 of [id number] [facility] praneeth 600 e 2021-04-09 2021-04-09 Office BRIELLE Mares 1.2.840.114 [id number] 14:10:54 14:20:54 Visit Ivelisse R AMBULATOR 350.1.13.21 Y 0.2.7.2.686 [id number] 600 2021-03-27 2021-03-27 [facility] Tom Abraham [facility] [id number] 08:24:00 13:36:00 Encounter [facility] 2021-03-27 2021-03-27 Anesthesia Yared Encinas [facility] [id number] 11:12:00 12:19:00 Event Guest [facility] 2021-03-27 2021-03-27 Surgery Tom Mann [facility] [id number] 10:30:00 11:30:00 Isabella [facility] 2021-03-27 2021-03-27 Travel [facility] [id number] [facility] 00:[facility]00 00:00:00 [facility] 2021-03-26 2021-03-26 [facility] [id number] 09:30:00 23:59:00 Encounter [facility] 2021-03-26 2021-03-26 Office Desiree [facility] 1.2.840.114 [id number] [facility] 13:57:27 16:12:30 Visit , Clau AMBULATOR 350.1.13.21 College Y 0.2.7.2.686 of [id number] [facility] 310 e 2021-03-26 2021-03-26 Office Desiree [facility] 1.2.840.114 [id number] 13:57:27 16:12:30 Visit , Clau AMBULATOR 350.1.13.21 Y 0.2.7.2.686 [id number] 310 2021-03-26 2021-03-26 Outpatient EL SLEH SLEH [id number] [facility] 00:00:00 00:00:00 2021-03-26 2021-03-26 Outpatient EL SLE SLEH [id number] [facility] 00:00:00 00:00:00 2021-03-26 2021-03-26 Travel [facility] [id number] [facility] 00:[facility] 00:00:00 [facility] 2021-03-23 2021-03-23 Emergency Angel DEDEMI 1.2.379.683 [id number] Univers 18:42:00 22:35:00 [facility] 350.1.13.10 it y of Clear 4.2.7.2.686 Neeru Costello [id number] [address] ([facility]) 2021-03-23 2021-03-23 Emergency [facility] 1.2.048.850 [id number] 18:42:00 22:35:00 [facility] 350.1.13.10 Clear 4.2.7.2.686 [place] [id number] [facility] 014 ([facility] 2021-03-23 2021-03-23 Emergency X [facility] ERT [id number] Univers 18:42:00 18:42:00 [facility] 2021-03-21 2021-03-[id number] 00:00[facility]00 00:00:00 [facility] 2021-03-20 2021-03-[id number] [facility] 00:00[facility]00 00:00:00 [facility] 2021-03-20 2021-03-[facility] [id number] 00:00:00 00:00:00 [facility] 2021-03-19 2021-03-19 Outpatient BRIELLE JORDAN [facility] [id number] [facility] 09:05:47 09:25:14 LAURIE ribeiro of Medicin e 2021-02-21 2021-02-21 [facility] Saul Huitrondarwin Martha [facility] [id number] 09:35:26 23:59:00 [facility] 2021-02-21 2021-02-21 Outpatient [facility] [id number] [facility] 00:00:00 00:00:00 [facility] 2021-02-19 2021-02-19 Office BRIELLE Adams 1.2.840.114 [id number] [facility] 13:08:15 15:54:43 Visit Benjy Montilla AMBULATOR 350.1.13.21 College Y 0.2.7.2.686 [id number] Medi praneeth 800 e 2021-02-19 2021-02-19 Office BRIELLE Adams 1.2.840.114 [id number] 13:08:15 15:54:43 Visit Benjy Montilla AMBULATOR 350.1.13.21 Y 0.2.7.2.686 [id number] 800 2021-02-13 2021-02-13 Telephone Tera [facility] [id number] 00:00:00 00:00:00 [facility] 2021-02-04 2021-02-04 Outpatient GENE [facility] [id number] [facility] 16:00:13 16:12:22 DIPABEN Isabell e of Medicin e 2021-01-21 2021-01-21 Video - Narendra [facility] [id number] 13:47:29 14:17:29 Telemedici [facility] 2021-01-21 2021-01-21 Outpatient WILLY BROWNING [facility] [id number] [facility] 00:00:00 00:00:00 [facility] 2021-01-10 2021-01-17 Hospital ER Davida Dillon [facility] [id number] 14:24:00 16:09:00 Encounter Varun Mejias Maria M edical Hotze, Timothy [facility] 2021-01-17 2021-01-17 Outside Sheikh [facility] [id number] 00:00:00 00:00:00 Orders Laurie [facility] 2021-01-13 2021-01-13 Telephone Tera [facility] [id number] 00:00:00 00:00:00 [facility] 2021-01-13 2021-01-13 Documentat Sampson [facility] [id number] 00:00:00 00:00:00 elijah Bennett [facility] 2021-01-10 2021-01-10 Emergency ER [facility] Emergency [id number] SLE 14:23:00 14:23:00 2021-01-10 2021-01-10 Orders [facility] [id number] 00:00:00 00:00:00 Only [facility] 2021-01-10 2021-01-10 Travel [facility] [id number] [facility] 00:[facility]00 00:00:00 [facility] 2021-01-06 2021-01-06 Orders Tha [facility] [id number] 00:00:00 00:00:00 Only Corinne Bacon [facility] 2021-01-01 2021-01-01 Telephone Tera [facility] [id number] 00:00:00 00:00:00 Kristyn Hickman [facility] 2020-12-26 2020-12-26 Office Tom Mann [facility] [id number] [facility] 15:05:33 15:35:33 Visit Rene Huitron [facility] 2020-12-26 2020-12-26 Orders Tom Abraham [facility] [id number] 15:05:39 15:15:39 Only [facility] 2020-12-26 2020-12-26 Outpatient [facility] [id number] [facility] 13:26:40 14:21:49 Delano 2020-12-26 2020-12-26 Outpatient EL SLE SLE [id number] [facility] 00:00:00 00:00:00 2020-12-26 2020-12-26 Outpatient EL SLE SLE [id number] SLE 00:00:00 00:00:00 2020-12-25 2020-12-25 Telephone Buster [facility] [id number] 00:00:00 00:00:00 [facility] 2020-12-19 2020-12-19 Office Desiree [facility] 1.2.840.114 [id number] [facility] 13:04:37 17:24:59 Visit , Clau AMBULATOR 350.1.13.21 College Y 0.2.7.2.686 of [id number] Medi praneeth 310 e 2020-12-19 2020-12-19 Office Brandiejoannjairo BRIELLE 1.2.840.114 [id number] 13:04:37 17:24:59 Visit , Clau AMBULATOR 350.1.13.21 Y 0.2.7.2.686 [id number] 310 2020-12-16 2020-12-16 [facility] [id number] 00:00:00 00:00:00 Only [facility] 2020-12-16 2020-12-16 [facility] [id number] 00:00:00 00:00:00 Only [facility] 2020-10-03 2020-10-03 Rajni Serrato [facility] [id number] 00:00:00 00:00:00 [facility] 2020-10-01 2020-10-01 Office BRIELLE Turner 1.2.840.[id number] [place] [address] 09:15:54 10:33:06 Visit Manasa AMBULATOR 350.1.13.21 College Y 0.2.7.2.686 of [id number] [facility] praneeth 600 e 2020-10-01 2020-10-01 Office BRIELLE Turner 1.2.840.114 [id number] 09:15:54 10:33:06 Visit Manasa AMBULATOR 350.1.13.21 Y 0.2.7.2.686 [id number] 600 2020-10-01 2020-10-01 Outpatient [facility] [id number] [facility] 09:29:06 09:29:06 Colleg e of Medicin e 2020-10-01 2020-10-01 Office BRIELLE Timmons 1.2.840.114 [id number] [facility] 07:43:09 08:08:09 Visit Bhavesh AMBULATOR 350.1.13.21 College Y 0.2.7.2.686 of [id number] Medi praneeth 300 e 2020-10-01 2020-10-01 Office BRIELLE Timmons 1.2.840.114 [id number] 07:43:09 08:08:09 Visit Bhavesh AMBULATOR 350.1.13.21 Y 0.2.7.2.686 [id number] 300 2020-09-26 2020-09-26 Office BEL CoelloM 1.2.840.114 [id number] [facility] 12:47:25 13:56:42 Visit Rivera AMBULATOR 350.1.13.21 College Y 0.2.7.2.686 of [id number] [facility] praneeth 600 e 2020-09-26 2020-09-26 Office BEL CoelloM 1.2.840.114 [id number] 12:47:25 13:56:42 Visit Rivera AMBULATOR 350.1.13.21 Y 0.2.7.2.686 [id number] 600 2020-09-26 2020-09-26 Outpatient BCM BCM [id number] [facility] 12:56:21 12:56:21 Colleg e of Medicin e 2020-09-23 2020-09-23 Office Trofimovsky BCM 1.2.840.114 [id number] [facility] 13:22:11 16:38:42 Visit , Clau AMBULATOR 350.1.13.21 College Y 0.2.7.2.686 of [id number] [facility] praneeth 310 e 2020-09-23 2020-09-23 Office Trofimovsky BCM 1.2.840.114 [id number] 13:22:11 16:38:42 Visit , Clau AMBULATOR 350.1.13.21 Y 0.2.7.2.686 [id number] 310 2020-09-10 2020-09-10 Outpatient TROFIMOVSKY BCM BCM [id number] [facility] 11:41:13 16:50:38 , CLAU Colleg e of Medicin e 2020-08-28 2020-08-28 Office Trofimovsky BCM 1.2.840.114 [id number] [facility] 11:27:42 16:43:15 Visit , Clau AMBULATOR 350.1.13.21 College Y 0.2.7.2.686 of [id number] [facility] praneeth 310 e 2020-08-28 2020-08-28 Office Trofimovsky BCM 1.2.840.114 [id number] 11:27:42 16:43:15 Visit , Clau AMBULATOR 350.1.13.21 Y 0.2.7.2.686 [id number] 310 2020-08-28 2020-08-28 Office BRIELLE Mares 1.2.840.114 [id number] [facility] 14:24:08 15:49:29 Visit Ivelisse Manriquez AMBULATOR 350.1.13.21 College Y 0.2.7.2.686 of 850.9095677 Medi praneeth 600 e 2020-08-28 2020-08-28 Office José Miguel BCM 1.2.840.114 [id number] 14:24:08 15:49:29 Visit Ivelisse Manriquez AMBULATOR 350.1.13.21 Y 0.2.7.2.686 [id number] 600 2020-08-28 2020-08-28 Outpatient BCM [facility] [id number] [facility] 14:51:57 14:51:57 Colleg e of Medicin e 2020-08-28 2020-08-28 [facility] [id number] [facility] 00:00:00 00:00:00 [facility] 2020-08-22 2020-08-22 Outpatient JERRELL [facility] [id number] [address] [place] [address] 10:31:16 10:56:59 ALONZO Carson ge of Medicin e 2020-08-19 2020-08-19 Outpatient TROFIMOVSKY [facility] [id number] [facility] 00:00:00 00:00:00 , CLAU Carsong e of Medicin e 2020-08-19 2020-08-19 Outpatient TROFIMOVSKY [facility] [id number] [facility] 00:00:00 00:00:00 , CLAU Carsong e of Medicin e 2020-08-13 2020-08-13 Outpatient [facility] [id number] [facility] 12:57:02 13:49:26 Colleg e of Medicin e 2020-08-13 2020-08-13 Outpatient TALIB [facility] [id number] [facility] 12:17:49 13:16:53 MAAME Carsong e of Medicin e 2020-08-13 2020-08-13 Orders Nan [facility] [id number] 00:00:00 00:00:00 Only Beulah Huerta [facility] 2020-08-06 2020-08-06 Outpatient DESIREE [facility] [id number] [facility] 09:50:59 10:59:57 , CLAU ribeiro of Medicin e 2020-08-06 2020-08-06 Refill Tom Mann [facility] [id number] 00:00:00 00:00:00 [facility] 2020-08-02 2020-08-02 Abstract Shaikh [facility] [id number] [facility] [facility] St 00:00:00 00:00:00 [facility] 2020-08-01 2020-08-01 Office Elvin Dubois [facility] Encounter/ Legacy 00:00:00 00:00:00 Visit Federica Jane [id number] Communi 047658 [facility] 2020-08-01 2020-08-01 Office Elvin Dubois [facility] Encounter/ Legacy 00:00:00 00:00:00 Visit Federica Jane [id number] Communi 867457 [facility] 2020-07-31 2020-07-31 [facility] [facility] [id number] [facility] [facility] St 00:00:00 00:00:00 [facility] 2020-07-02 2020-07-02 Office [facility]/ Legacy 00:00:00 00:00:00 Visit Antonia [id number] Co mmuni 280198 [facility] 2020-06-26 2020-06-26 Office Desiree [facility] 1.2.840.114 [id number] [facility] 13:37:14 16:51:47 Visit , Clau AMBULATOR 350.1.13.21 College Y 0.2.7.2.686 of 614.7646458 Medi praneeth 310 e 2020-06-26 2020-06-26 Office Desiree BCM 1.2.840.114 [id number] 13:37:14 16:51:47 Visit , Clau AMBULATOR 350.1.13.21 Y 0.2.7.2.686 [id number] 310 2020-06-24 2020-06-24 Office BRIELLE Jordan 1.2.840.114 [id number] [facility] 16:13:58 17:38:11 Visit Laurie Ali AMBULATOR 350.1.13.21 College Y 0.2.7.2.686 of [id number] Medi praneeth 325 e 2020-06-24 2020-06-24 Office BEL Jordan 1.2.840.114 [id number] 16:13:58 17:38:11 Visit Laurie Ali AMBULATOR 350.1.13.21 Y 0.2.7.2.686 [id number] 325 2020-06-18 2020-06-18 Outpatient [facility] [id number] [facility] 14:28:19 15:20:38 Isabell e of Medicin e 2020-06-13 2020-06-13 Orders Doctor REJI 1.2.840.114 [id number] Univers 00:00:00 00:00:00 Only Unassigned, RALF 350.1.13.10 [facility]y [facility] 4.2.7.2.686 Koko as [id number] [facility] 00[address] 2020-06-13 2020-06-13 Orders Doctor REJI 1.2.840.114 [id number] 01 00:00:00 00:00:00 Only Unassigned, RALF 350.1.13.10 [facility] 4.2.7.2.686 [id number] 009 2020-06-12 2020-06-12 Office BEL Mares 1.2.840.114 [id number] [facility] 13:38:47 15:03:57 Visit Ivelisse R AMBULATOR 350.1.13.21 College Y 0.2.7.2.686 of 717.7278566 Medi praneeth 600 e 2020-06-12 2020-06-12 Office MaresBEL 1.2.840.114 [id number] 13:38:47 15:03:57 Visit Ivelisse R AMBULATOR 350.1.13.21 Y 0.2.7.2.686 [id number] 600 2020-06-07 2020-06-07 Refill Tom Mann [facility] [id number] 00:00:00 00:00:00 Isabella [facility] 2020-06-04 2020-06-04 Refill Tha [facility] [id number] 00:00:00 00:00:00 Corinne Bacon [facility] 2020-05-28 2020-05-28 Transition Matthew Parikh 1.2.840.114 [id number] Univers 00:00:00 00:00:00 of Care Pauly L Momin 350.1.13.10 i ty of [place] 4.2.7.2.686 [place] [id number] [address] 2020-05-28 2020-05-28 Transition Matthew Parikh 1.2.840.114 [id number] 00:00:00 00:00:00 of Care Pauly L Momin 350.1.13.10 [place] 4.2.7.2.686 [id number] 403 2020-05-22 2020-05-26 [facility] Jeaneth [facility] 1.2.840.11 [id number] Univers 22:24:00 17:13:00 Encounter Ezzo, Ali [facility] 350.1.13.10 ity of [place] 4.2.7.2.686 Hugh Alicia [id number] [address] ([facility]) 2020-05-22 2020-05-26 [facility] Jeaneth [facility] 1.2.840.11 [id number] 22:24:00 17:13:00 Encounter Ezzo, [facility] 350.1.13.10 [place] 4.2.7.2.686 Hugh Schumacher [id number] [place] [address] ([facility]) 2020-05-22 2020-05-22 Emergency X [facility] ERT [id number] Univers 22:24:00 22:24:00 HUGH daniel [facility] 2020-05-15 2020-05-15 Outpatient [facility]H [facility] [id number] [facility] 00:00:00 00:00:00 [id number] 2020-05-15 2020-05-15 Outpatient EL SLE [facility] [id number] [facility] 00:00:00 00:00:00 2020-04-22 2020-04-22 Office OLEKSANDR Mendosa Encounter / Legacy 00:00:00 00:00:00 Visit Krys [id number] Com kati 710333 [facility] 2020-03-19 2020-03-19 Office Elvin Dubois [facility] Encounter/ Legacy 00:00:00 00:00:00 Visit Federica Jane [id number] Communi 699824 [facility] 2020-03-19 2020-03-19 [facility]/ Legacy 00:00:00 00:00:00 Visit Federica Jane [id number] Communi 563075 [facility] 2020-03-19 2020-03-19 Office Elvin Dubois SHAWANDA Encounter/ Legacy 00:00:00 00:00:00 Visit Federica Jane [id number] 5844 Communi 279425 [facility] 2020-03-19 2020-03-19 Office Elmo MAYBERRY Encoun ter/ Legacy 00:00:00 00:00:00 Visit Elvin marti [id number] Communi 644115 [facility] 2020-03-17 2020-03-17 Departed [facility] [id number] [facility] 22:19:00 23:32:00 Emergency Patients 05 [facility] 2020-03-17 2020-03-17 Emergency [facility] [id number] [facility] 22:19:00 22:19:00 -[id number] [facility] 2020-03-13 2020-03-13 Office BRIELLE Mares 1.2.840.114 [id number] [facility] 13:38:35 14:39:07 Visit Ivelisse Manriquez AMBULATOR 350.1.13.21 College Y 0.2.7.2.686 of 846.3111361 Medi praneeth 600 e 2020-03-13 2020-03-13 Office BRIELLE Mares 1.2.840.114 [id number] 13:38:35 14:39:07 Visit Ivelisse R AMBULATOR 350.1.13.21 Y 0.2.7.2.686 [id number] 600 2020-03-05 2020-03-05 Outpatient EL SLE [facility] [id number] [facility] 00:00:00 00:00:00 2020-02-28 2020-02-28 Office Irvin Aiken [facility] 1.2.840.[id number] [place] [address] 08:51:29 09:44:15 Visit Fariba 350.1.13.21 Co llege 0.2.7.2.686 of [id number] [facility] 530 e 2020-02-28 2020-02-28 Office Irvin Aiken [facility] 1.2.840.114 [id number] 08:51:29 09:44:15 Visit Fariba 350.1.13.21 0.2.7.2.686 [id number] 530 2020-02-21 2020-02-21 Office BRIELLE Mares 1.2.840.[id number] [place] [address] 12:58:22 15:02:17 Visit Ivelisse R AMBULATOR 350.1.13.21 College Y 0.2.7.2.686 of [id number] [facility] 600 e 2020-02-21 2020-02-21 Office BRIELLE Mares 1.2.840.114 [id number] 12:58:22 15:02:17 Visit Ivelisse R AMBULATOR 350.1.13.21 Y 0.2.7.2.686 [id number] 600 2020-02-21 2020-02-21 Office Austin, [facility] 1.2.840.[id number] [place] [address] 10:50:49 11:50:49 Visit Tracilyn Fariba 350.1.13.21 C marquez Latoya 0.2.7.2.686 of [id number] [facility] 520 e 2020-02-21 2020-02-21 Office Austin, [facility] 1.2.840.114 [id number] 10:50:49 11:50:49 Visit Tracilyn Fariba 350.1.13.21 Latoya 0.2.7.2.686 [id number] 520 2020-02-13 2020-02-13 Office Bhavaandrea BC 1.2.840.114 [id number] [facility] 11:39:39 16:54:27 Visit u, Cyndi AMBULATOR 350.1.13.21 [place] Tse Y 0.2.7.2.686 of [id number] [facility] 370 e 2020-02-13 2020-02-13 Office Bhmaricruz BC 1.2.840.114 75 [id number] 11:39:39 16:54:27 Visit u, Cyndi AMBULATOR 350.1.13.21 Tse Y 0.2.7.2.686 [id number] 370 2019-11-28 2019-11-28 Office Samina 1.2.840.8 [id number] [facility] 08:52:33 10:27:37 Visit uCyndi 04300.1.1 C ollege Dedrick 3.210.2.7 of .3.296774 Medici n .8 e 2019-11-28 2019-11-28 Telephone [facility], 1.2.840.3 [id number] [id number] [facility] 00:00:00 00:00:00 Laurie Ali 56882.1.1 C ollege 3.210.2.7 of .3.109924 Medici n .8 e 2019-11-27 2019-11-27 Telephone [facility], 1.2.840.8 [id number] [facility] 00:00:00 00:00:00 Laurie Ali 08840.1.1 C ollege 3.210.2.7 of .3.984373 Medici n .8 e 2019-11-20 2019-11-20 Orders JayTom evans 1.2.840.7 [id number] [facility] 00:00:00 00:00:00 [place] K 39654.1.1 Danny ege 3.210.2.7 of .3.767161 Medici n .8 e 2019-11-15 2019-11-15 Orders Elana, 1.2.840.3 [id number] [facility] 00:00:00 00:00:00 Only Parxann 27640.1.1 Danny ege Martha 3.210.2.7 of .3.244786 Medici n .8 e 2019-11-15 2019-11-15 Telephone Jordan, 1.2.840.5 [id number] [id number] [facility] 00:00:00 00:00:00 Laurie Ali 55830.1.1 C ollege 3.210.2.7 of .3.081704 Medici n .8 e 2019-11-15 2019-11-15 Orders Tom Mann 1.2.840.2 [id number] [facility] 00:00:00 00:00:00 [place] K 88447.1.1 Danny ege 3.210.2.7 of .3.862604 Medici n .8 e 2019-11-14 2019-11-14 Office Jordan, 1.2.840.3 [id number] [facility] 12:52:40 17:12:58 Visit Laurie Ali 62575.1.1 C ollege 3.210.2.7 of .3.915263 Medici n .8 e 2019-11-14 2019-11-14 Office Turner, 1.2.840.8 [id number] [facility] 10:37:21 12:39:23 Visit Manasa 66968.1.1 Danny ege 3.210.2.7 of .3.752741 Medici n .8 e 2019-11-11 2019-11-11 Refill , 1.2.840.4 [id number] [facility] 00:00:00 00:00:00 Laurie Ali 41877.1.1 C ollege 3.210.2.7 of .3.101705 Medici n .8 e 2019-11-10 2019-11-10 Telephone Jordan, 1.2.840.6 [id number] 738 [id number] [facility] 00:00:00 00:00:00 Laurie Ali 63878.1.1 C ollege 3.210.2.7 of .3.237270 Medici n .8 e 2019-11-06 2019-11-06 [id number] 17:13:00 20:25:00 Emergency [facility] 50 Jason es Room [facility] 2019-11-06 2019-11-06 Emergency [facility] [id number] [facility] 18:13:00 18:13:00 -[id number] [facility] 2019-11-06 2019-11-06 Telephone Jordan, 1.2.840.2 [id number] [facility] 00:00:00 00:00:00 Laurie Ali 64486.1.1 C ollege 3.210.2.7 of .3.931834 Medici n .8 e 2019-11-03 2019-11-03 Telephone Jordan, 1.2.840.7 [id number] [facility] 00:00:00 00:00:00 Laurie Ali 30429.1.1 C ollege 3.210.2.7 of .3.570899 Medici n .8 e 2019-11-01 2019-11-01 Outpatient [facility] [id number] 07:45:00 07:45:00 [facility] 2019-10-23 2019-10-23 Telephone Jrodan, 1.2.840.0 [id number] [facility] 00:00:00 00:00:00 Laurie Ali 95326.1.1 C ollege 3.210.2.7 of .3.212093 Medici n .8 e 2019-10-19 2019-10-19 Refill Samina 1.2.840.8 [id number] [facility] 00:00:00 00:00:00 u, Cyndi 26146.1.1 C ollege Tse 3.210.2.7 of .3.999588 Medici n .8 e 2019-10-17 2019-10-17 Office Mya, 1.2.840.1 [id number] [facility] 13:47:55 16:02:09 Visit Marilyn 42568.1.1 Co llege 3.210.2.7 of .3.112284 Medici n .8 e 2019-10-12 2019-10-12 Telephone , 1.2.840.7 [id number] [facility] 00:00:00 00:00:00 Laurie Ali 13961.1.1 C marquez 3.210.2.7 of .3.294924 Medici n .8 e 2019-09-27 2019-09-27 Telephone Bhairavaras 1.2.840.3 [id number] [facility] 00:00:00 00:00:00 u, Cyndi 44520.1.1 C marquez Tse 3.210.2.7 of .3.910570 Medici n .8 e 2019-09-26 2019-09-26 Telephone Bhairavaras 1.2.840.4 [id number] [facility] 00:00:00 00:00:00 u, Cyndi 34119.1.1 C marquez Tse 3.210.2.7 of .3.654242 Medici n .8 e 2019-09-20 2019-09-20 Miriam Trevnio, 1.2.840.5 [id number] [facility] 09:55:54 13:50:30 Support Jose 20011.1.1 Col yonny Spencer 3.210.2.7 of .3.671094 Medici n .8 e 2019-09-19 2019-09-19 Telephone Bhairavaras 1.2.840.4 [id number] [facility] 00:00:00 00:00:00 u, Cyndi 05548.1.1 C marquez Tse 3.210.2.7 of .3.865909 Medici n .8 e 2019-09-15 2019-09-18 Office Turner, 1.2.840.4 [id number] [facility] 09:03:36 15:51:54 Visit Manasa 81329.1.1 Danny ege 3.210.2.7 of .3.842630 Medici n .8 e 2019-09-18 2019-09-18 Telephone Bhairavaras 1.2.840.2 [id number] [facility] 00:00:00 00:00:00 u, Cyndi 29370.1.1 Adelina Tse 3.210.2.7 of .3.593122 Medici n .8 e 2019-09-12 2019-09-12 Office Aricwy, 1.2.840.5 [id number] 7 [id number] [facility] 09:42:28 10:45:58 Visit Milton 26853.1.1 Danny josee Kit 3.210.2.7 of .3.648668 Medici n .8 e 2019-09-12 2019-09-12 Telephone Bhairavaras 1.2.840.4 [id number] [facility] 00:00:00 00:00:00 uCyndi 88531.1.1 Adelina Tse 3.210.2.7 of .3.706175 Medici n .8 e 2019-09-11 2019-09-11 Departed 1 VERONICA MCCAIN [facility] A[id number] [facility] 17:07:00 17:55:00 Emergency Patients 29 [facility] 2019-09-05 2019-09-[address] [facility], 1.2.840.4 [id number] [facility] 00:00:00 00:00:00 Prelude 56851.1.1 Danny dora 3.210.2.7 of .3.802256 Medici n .8 e 2019-09-01 2019-09-01 Telephone Bhairavaras 1.2.840.0 [id number] [facility] 00:00:00 00:00:00 uCyndi 88211.1.1 Adelina Tse 3.210.2.7 of .3.596548 Medici n .8 e 2019-08-30 2019-08-30 Office Bhavaandrea 1.2.840.4 [id number] [facility] 09:49:04 11:48:53 Visit Cyndi carias 40557.1.1 Adelina Tse 3.210.2.7 of .3.128591 Medici n .8 e 2019-08-30 2019-08-30 Abstract Pallister, 1.2.840.3 [id number] [facility] 00:00:00 00:00:00 Malorie 09025.1.1 Danny dora Pichardo 3.210.2.7 of .3.901501 Medici n .8 e 2019-08-30 2019-08-30 Abstract Pallister, 1.2.840.1 [id number] [facility] 00:00:00 00:00:00 Malorie 59765.1.1 Danny dora Pichardo 3.210.2.7 of .3.626051 Medici n .8 e 2019-08-30 2019-08-30 Telephone Jordan, 1.2.840.6 [id number] [facility] 00:00:00 00:00:00 Laurie Mayorga 57742.1.1 C marquez 3.210.2.7 of .3.241851 Medici n .8 e 2019-08-25 2019-08-25 Orders Bhairavaandrea 1.2.840.8 [id number] [facility] 00:00:00 00:00:00 Only u, Cyndi 78192.1.1 C marquez Tse 3.210.2.7 of .3.886559 Medici n .8 e 2019-08-24 2019-08-24 Telephone Roseairavaandrea 1.2.840.3 [id number] [facility] 00:00:00 00:00:00 u, Cyndi 33708.1.1 Adelina Tse 3.210.2.7 of .3.659973 Medici n .8 e 2019-08-17 2019-08-17 Office Guerdaer, 1.2.840.0 [id number] [facility] 09:33:52 13:27:19 Visit Malorie 92304.1.1 Danny dora Pichardo 3.210.2.7 of .3.782579 Medici n .8 e 2019-08-17 2019-08-17 Ancillary 1.2.840.8 [id number] [facility] 09:33:34 13:26:06 Procedure 42306.1.1 Co les 3.210.2.7 of .3.307188 Medici n .8 e 2019-08-17 2019-08-17 Abstract Pallister, 1.2.840.2 [id number] [facility] 00:00:00 00:00:00 Malorie 48399.1.1 Danny dora Pichardo 3.210.2.7 of .3.483062 Medici n .8 e 2019-08-17 2019-08-17 Abstract Pallister, 1.2.840.8 [id number] [facility] 00:00:00 00:00:00 Malorie 40284.1.1 Danny dora Pichardo 3.210.2.7 of .3.963688 Medici n .8 e 2019-08-17 2019-08-17 Abstract Pallister, 1.2.840.1 [id number] [facility] 00:00:00 00:00:00 Malorie 14274.1.1 Danny dora Pichardo 3.210.2.7 of .3.057214 Medici n .8 e 2019-08-16 2019-08-16 Orders Pallister, 1.2.840.7 [id number] [facility] 00:00:00 00:00:00 Only Malorie 46665.1.1 Danny dora Pichardo 3.210.2.7 of .3.396011 Medici n .8 e 2019-08-14 2019-08-14 Office Dusty Mccain 1.2.840.3 [id number] [facility] 14:05:04 15:58:54 Visit 53504.1.1 Danny dora 3.210.2.7 of .3.611049 Medici n .8 e 2019-08-12 2019-08-12 Refill Samina 1.2.840.3 [id number] [facility] 00:00:00 00:00:00 Cyndi carias 77239.1.1 Adelina Tse 3.210.2.7 of .3.358198 Medici n .8 e 2019-08-10 2019-08-10 Telephone [facility], 1.2.840.8 [id number] [facility] 00:00:00 00:00:00 Malorie 00871.1.1 Danny dora Pichardo 3.210.2.7 of .3.129011 Medici n .8 e 2019-07-11 2019-07-11 [place] , 1.2.840.0 [id number] [facility] 00:00:00 00:00:00 Laurie Ali 57254.1.1 C ollege 3.210.2.7 of .3.675459 Medici n .8 e 2019-07-11 2019-07-11 [facility], 1.2.840.7 [id number] [facility] 00:00:00 00:00:00 Only Laurie Ali 69867.1.1 C ollege 3.210.2.7 of .3.918776 Medici n .8 e 2019-07-07 2019-07-07 Rubina Lynch, 1.2.840.3 [id number] [facility] 00:00:00 00:00:00 Rosa M 62684.1.1 Col lege 3.210.2.7 of .3.475726 Medici n .8 e 2019-07-06 2019-07-06 [place] Jordan, 1.2.840.0 [id number] [facility] 00:00:00 00:00:00 Laurie Ali 03389.1.1 C ollege 3.210.2.7 of .3.949210 Medici n .8 e 2019-07-06 2019-07-06 [facility], 1.2.840.7 [id number] [facility] 00:00:00 00:00:00 Only Laurie Ali 50200.1.1 C ollege 3.210.2.7 of .3.715563 Medici n .8 e 2019-07-03 2019-07-03 [facility], 1.2.840.0 [id number] [facility] 00:00:00 00:00:00 Only Laurie Ali 65903.1.1 C ollege 3.210.2.7 of .3.636752 Medici n .8 e 2019-06-30 2019-06-30 Orders Samina 1.2.840.0 [id number] [facility] 00:00:00 00:00:00 Only Cyndi carias 40528.1.1 C ollege Tse 3.210.2.7 of .3.101990 Medici n .8 e 2019-06-28 2019-06-28 Telephone Dusty Mccain 1.2.840.3 [id number] [facility] 00:00:00 00:00:00 94969.1.1 Danny ege 3.210.2.7 of .3.021419 Medici n .8 e 2019-06-22 2019-06-22 Orders JayTom 1.2.840.5 [id number] [facility] 00:00:00 00:00:00 [place] K 18845.1.1 Danny ege 3.210.2.7 of .3.018352 Medici n .8 e 2019-06-22 2019-06-22 Telephone Dusty Mccain 1.2.840.1 [id number] [facility] 00:00:00 00:00:00 51646.1.1 Danny ege 3.210.2.7 of .3.914568 Medici n .8 e 2019-06-20 2019-06-20 Office , 1.2.840.9 [id number] [facility] 13:47:25 19:50:25 Visit Laurie Tierra 71991.1.1 C ollege 3.210.2.7 of .3.232830 Medici n .8 e 2019-06-19 2019-06-19 Orders Lanie, 1.2.840.3 [id number] [facility] 00:00:00 00:00:00 Only Historical 15989.1.1 C ollege 3.210.2.7 of .3.452471 Medici n .8 e 2019-06-19 2019-06-19 Telephone Rahel 1.2.840.0 [id number] [facility] 00:00:00 00:00:00 Suneal K 82693.1.1 Col lege 3.210.2.7 of .3.184085 Medici n .8 e 2019-06-13 2019-06-13 Orders Huitron, 1.2.840.0 [id number] [facility] 00:00:00 00:00:00 Only Parxann 26157.1.1 Danny ege Martha 3.210.2.7 of .3.692526 Medici n .8 e 2019-06-08 2019-06-08 Refill Syed, 1.2.840.1 [id number] [facility] 00:00:00 00:00:00 Rosa Bruna 12051.1.1 Col lege 3.210.2.7 of .3.483612 Medici n .8 e 2019-06-06 2019-06-06 Telephone Samina 1.2.840.6 [id number] [facility] 00:00:00 00:00:00 uCyndi 93353.1.1 C marquez Tse 3.210.2.7 of .3.446193 Medici n .8 e 2019-06-06 2019-06-06 Telephone Janny Guerra 1.2.840.4 [id number] [facility] 00:00:00 00:00:00 88889.1.1 Danny ege 3.210.2.7 of .3.913675 Medici n .8 e 2019-05-26 2019-05-26 Orders Mcginnis, 1.2.840.3 [id number] [facility] 00:00:00 00:00:00 Only Suneal K 53658.1.1 Col lege 3.210.2.7 of .3.434795 Medici n .8 e 2019-05-24 2019-05-24 Orders Dcuka, 1.2.840.7 [id number] [facility] 00:00:00 00:00:00 Only Maherin 47611.1.1 Danny ege 3.210.2.7 of .3.731534 Medici n .8 e 2019-05-05 2019-05-05 Orders Bhmaricruz 1.2.840.0 [id number] [facility] 00:00:00 00:00:00 Only Cyndi carias 09548.1.1 C marquez Tse 3.210.2.7 of .3.759401 Medici n .8 e 2019-05-02 2019-05-02 Orders Evelin 1.2.840.2 [id number] [facility] 00:00:00 00:00:00 Only Kristyn 19462.1.1 Danny ege Nikko 3.210.2.7 of .3.869608 Medici n .8 e 2019-04-25 2019-04-25 Office Dusty Mccain 1.2.840.9 [id number] [facility] 12:24:59 14:11:24 Visit 35344.1.1 Danny ege 3.210.2.7 of .3.725879 Medici n .8 e 2019-04-09 2019-04-10 [id number] [address] [facility] 23:57:00 02:08:00 Emergency NASRIN 88 [facility] Patient [facility] 2019-03-15 2019-03-15 Departed [facility] [id number] 14:32:00 19:04:00 Emergency 01 [facility] Patient [facility] [place] 2018-09-27 2018-09-27 Departed 1 AVA, [facility] [id number] [facility] [address] 19:25:00 23:02:00 Emergency LILA 03 [facility] Patient [facility] [place] 2018-07-14 2018-07-14 Departed 1 ELISEO, [facility] [id number] 13:09:00 19:04:00 Emergency AMBICA 79 [facility] Patient [facility] 2018-05-05 2018-05-05 Registered [facility] [id number] 05:03:00 05:03:00 Surgical 83 [facility] Patient [facility] 2018-03-27 2018-03-27 Departed 1 [facility] [id number] [address] 18:28:00 22:32:00 Emergency DEWAYNE [address] [place] [address] [facility] Center Results Test Description Test Time Test Comments Results Result Comments Source Basic Metabolic Panel 2022-05-07 00:48:00 Test Item Value Reference Range Interpretation Comme nts Glucose (test code = 126 mg/dL 65-139 Non-fa sting reference ) interval BUN (test code = 14 mg/dL 7-25 20110211) Creatinine (test code = 0.73 mg/dL 0.50-1.03 20131204) EGFR (test code = 95 See_Comment The eGFR i s based on the ) CKD-EPI 2020 eq uation. To calculate th e new eGFR from a pre vious Creatinine or C ystatin Cresult, go to [email or web address]://www.kid richy.org/p nuhafessionals/kd oqi/gfr%5 Fcalculator [Au tomated message] The sy stem which generated this result transmit christopher reference range : > OR = 60 mL/min/1.73m 2. The reference range was not used to interpr et this result as normal/abnormal . BUN/Creatinine Ratio NOT APPLICABLE See_Comment [Aut omated message] The (test code = 7945703) system which generated this result tra nsmitted reference range : 6 - 22 (calc). The ref erence range was not u sed to interpret this result as normal/abnormal . Sodium (test code = 139 mmol/L 135-445 2261828) Potassium, Serum (test 4.4 mmol/L 3.5-5.3 code = 20110226) Chloride (test code = 102 mmol/L 98-079 5198212) Carbon Dioxide, Total 30 mmol/L 20-32 (test code = ) Calcium, Serum (test 9.4 mg/dL 8.6-10.4 code = 20110208) JENNIFER (test code = JENNIFER) FASTING:NO [facility]STING: NO [facility] [id number] 00:48:00 Test Item Value Reference Range Interpretation Comments WBC (test code = 6.9 See_Comment [Automated ) message] The system which generated this result transmit christopher reference range : 3.8 - 10.8 Thousand/uL. Th e reference range was not used to interpret this result as normal/abnormal . RBC (test code = 5.09 See_Comment [Automated 789-8) message] The system which generated this result transmit christopher reference range : 3.80 - 5.10 Million/uL. The reference range was not used to interpret this result as normal/abnormal . Hemoglobin (test code 13.7 g/dL 11.7-15.5 = ) Hematocrit (test code 41.4 % 35.0-45.0 = ) MCV (test code = 81.3 fL 80.0-100.0 ) MCH (test code = 26.9 pg 27.0-33.0 L ) MCHC (test code = 33.1 g/dL 32.0-36.0 ) RDW (test code = 15.2 % 11.0-15.0 H ) Platelets (test code 133 See_Comment L [Autom ated = ) message] The system which generated this result transmit christopher reference range : 140 - 400 Thousand/uL. Th e reference range was not used to interpret this result as normal/abnormal . MPV (test code = 12.5 fL 7.5-12.5 ) # Neutros (test code 4968 See_Comment [Autom ated = 20200505) message] The system which generated this result transmit christopher reference range : 1,500 - 7,800 cells/uL. The reference range was not used to interpret this result as normal/abnormal . # Lymphs (test code = 1380 See_Comment [Auto mated 731-0) message] The system which generated this result transmit christopher reference range : 850 - 3,900 cells/uL. The reference range was not used to interpret this result as normal/abnormal . # Monos (test code = 373 See_Comment [Autom ated ) message] The system which generated this result transmit christopher reference range : 200 - 950 cells/uL. The reference range was not used to interpret this result as normal/abnormal . # Eos (test code = 117 See_Comment [Automat ed 711-2) message] The system which generated this result transmit christopher reference range : 15 - 500 cells/ uL. The reference range was not u sed to interpret th is result as normal/abnormal . # Baso (test code = 62 See_Comment [Automa christopher 704-7) message] The system which generated this result transmit christopher reference range : 0 - 200 cells/uL. The reference range was not u sed to interpret th is result as normal/abnormal . % Neutros (test code 72 % = ) % Lymphs (test code = 20.0 % 20200502) % Monos (test code = 5.4 % ) % Eos (test code = 1.7 % 20200430) % Baso (test code = 0.9 % 20200501) JENNIFER (test code = JENNFIER) FASTING:NO FASTING: NO Lab Interpretation Abnormal (test code = 89238-6) [facility] [id number] 16:07:00 Test Item Value Reference Range Interpretation Comments Protein, Total, 7.3 g/dL 6.1-8.1 Serum (test code = 20110215) Albumin (test code 3.9 g/dL 3.6-5.1 = ) GLOBULIN (QUEST) 3.4 See_Comment [Automated message] (test code = The system [facility] [employer] ) generated this result transmitted ref erence range: 1.9 - 3. 7 g/dL (calc). The ref erence range was not u sed to interpret this result as normal/abnor mal. Albumin Globulin 1.1 See_Comment [Automated message] Ratio (test code = The syste m which 9-0) generated this result transmitted ref erence range: 1.0 - 2. 5 (calc). The ref erence range was not u sed to interpret this result as normal/abnor mal. Bilirubin, Total 0.9 mg/dL 0.2-1.2 (test code = 20110217) Bilirubin, Direct 0.2 mg/dL See_Comment [Automate d message] (test code = The system [facility] [employer] 20110301) generated this result transmitted ref erence range: < OR = 0 .2. The reference r charlotte was not used to interpret this result as normal/abnor mal. Bilirubin, 0.7 See_Comment [Automated mes jean marie] Indirect (test The system wh ich code = 8907985) generated th is result transmitted ref erence range: 0.2 - 1. 2 mg/dL (calc). T he reference range was not used to int erpret this result as normal/abnormal . Alkaline 103 U/L 37-153 Phosphatase, S (test code = 6768-6) AST (SGOT) (test 16 U/L 10-35 code = 8672081) ALT (SGPT) (test 15 U/L 6-29 code = 9852144) JENNIFER (test code = FASTING:YES JENNIFER) FASTING: YES [facility]/[id number] 16:07:00 Test Item Value Reference Range Interpretation Comments INR (test code = 1.1 Reference R charlotte ) 0.9-1.1Moderate -intens ity Warfarin Th erapy 2.0-3.0Higher-i ntensit y Warfarin Ther apy 3.0-4.0 PT (test code = 10.8 See_Comment For addition al ) information, pl ease refer tohttp://educat ion.[facility] stdiagnostics.c om/faq/ LMY151(This chika k is being provided for informational/e ducatio nal purposes on ly.) [Automated mess age] The system [employer] generated this result transmitted ref erence range: 9.0 - 11 .5 sec. The reference r charlotte was not used to interpret this result as normal/abnor mal. JENNIFER (test code = FASTING:YES JENNIFER) FASTING: YES [facility] Center[facility] fetoprotein (AFP), tumor [id number] 16:07:00 Test Item Value Reference Range Interpretation Comments Alpha-Fetopr 3.9 ng/mL Reference Range : <6.1The use otein (test of AFP as a earl or marker in code = females is not 1834-1) recommended. Th is test was performed using the Benjamín Coulterchemilum inescent method. Values obtained fromdifferent a ssay methods cannot be usedi nterchangeably. AFP levels, reg ardless ofvalue, should not be interpreted as absoluteevidenc e of the presence or abs ence of disease. JENNIFER (test FASTING:YES code = JENNIFER) FASTING: YES [facility], ABDOMINAL, [id number] 16:24:00DR JAY Referring: Shawnee Alvares for Exam:->cirrhosis, screening for [facility]ARNETT : 1965 Sex: FFINAL REPORT Abdominal ultrasound dated 01/13/2022 Clinical information:cirrhosis, screening for cancer Comment: Real-time transabdominal ultrasound [...] diameter. Main portal vein measures 14 mm indiameter. Pancreas is visualized and unremarkable. Right kidney [...] cholecystectomy without biliary dilatation.3. Splenomegaly. Signed: Acosta Wueport Verified Date/Time: 01/13/2022 16:24:06 [facility] WITH [id number] 23:29:41 Test Item Value Reference Range Interpretation Comments WBC (test code = See_Comment [Automated 6690-2) message] The sy stem which generated this result transmitted reference range : 4.30 - 11.10 10*3/?L. The reference range was not used to interpret this result as normal/abnormal . RBC (test code = See_Comment H [Automated 789-8) message] The sy stem which generated this result transmitted reference range : 3.93 - 5.25 10*6/?L. The reference range was not used to interpret this result as normal/abnormal . HGB (test code = 14.3 g/dL 11.6-15.0 718-7) HCT (test code = 44.1 % 35.7-45.2 4544-3) MCV (test code = 83.8 fL 80.6-95.5 787-2) MCH (test code = 27.2 pg 25.9-32.8 785-6) MCHC (test code = 32.4 g/dL 31.6-35.1 786-4) RDW-SD (test code = 43.7 fL 39.0-49.9 45934-8) RDW-CV (test code = 14.3 % 12.0-15.5 788-0) PLT (test code = See_Comment L [Automated 777-3) message] The sy stem which generated this result transmitted reference range : 166 - 358 10*3/ ?L. The reference r charlotte was not used to interpret this result as normal/abnormal . MPV (test code = 11.5 fL 9.5-12.9 88657-7) NRBC/100 WBC (test See_Comment [Automat ed code = 3663750941) message] The system which generated this result transmitted reference range : 0.0 - 10.0 /100 WBCs. The refer ence range was not u sed to interpret th is result as normal/abnormal . NRBC x10^3 (test code <0.01 See_Comment [Auto mated = 9877980593) message] The s ystem which generated this result transmitted reference range : 10*3/?L. The reference range was not used to interpret this result as normal/abnormal . GRAN MAT (NEUT) % 70.6 % (test code = 770-8) IMM GRAN % (test code 0.50 % = 8815008323) LYMPH % (test code = 20.3 % 736-9) MONO % (test code = 6.3 % 5905-5) EOS % (test code = 1.8 % 713-8) BASO % (test code = 0.5 % 706-2) GRAN MAT x10^3(ANC) 6.06 10*3/uL 1.88-7.09 (test code = 4324009887) IMM GRAN x10^3 (test 0.04 10*3/uL 0.00-0.06 code = 4833473492) LYMPH x10^3 (test code 1.74 10*3/uL 1.32-3.29 = 731-0) MONO x10^3 (test code 0.54 10*3/uL 0.33-0.92 = 742-7) EOS x10^3 (test code = 0.15 10*3/uL 0.03-0.39 711-2) BASO x10^3 (test code 0.04 10*3/uL 0.01-0.07 = 704-7) Lab Interpretation Abnormal (test code = 41638-0) [facility], [id number] 17:24:00DR JAY Referring: DOROTA Alvares-CCirrhosis, assess for HCCCirrhosis, assess for HCCReason for Exam:->Cirrhosis, assess for HCC [facility] TERENCE : 1965 Sex: FFINAL REPORT TECHNIQUE: Grayscale ultrasound of the abdomen. INDICATION: Cirrhosis, assess for HCC COMPARISON: 02/21/2021. FINDINGS: MIDLINE VASCULATURE: The visualized inferior vena cava is patent. Portal vein is patent and measures 1.2 cm in diameter. The maximum visualized aortic diameter is 2.2 cm. LIVER: Coarse echotexture of liver with nodular contour.. The liver measures 19 cmin length. No focal lesions. BILIARY:Gallbladder: Status post cholecystectomy.. Common bile duct measures 0.3 cm, within normal limits. No intrahepatic biliary ductal dilatation. PANCREAS: Incompletelyvisualized due to overlying bowel gas. SPLEEN: Splenomegaly. The spleen measures 15.2 cm in length. PERITONEUM: No free fluid. KIDNEYS: The kidneys are normal in size. No hydronephrosis. No sonographically evident solid mass lesion. The right kidney measures 11.7 cm in length. The left kidney hmpyccjl57.3 cm in length. IMPRESSION:Cirrhosis with sequela of portal hypertension. No focal liver lesion. Signed: Enedelia Jimenezeport Verified Date/Time: 07/29/2021 17:24:01 Electronically signedby: ENEDELIA JIMENEZ MD on 07/29/2021 05:24 PMBasi Metabolic Panel 2021-07-29 10:43:00 Test Item Value Reference Interpretation Comments Range Glucose (test code = 142 mg/dL 65-99 H Fastin g reference ) interval For so meone without known diabetes, a glucosevalue >1 25 mg/dL indicates that they may havedi abetes and this should be confirmed with afollow-up test . BUN (test code = 14 mg/dL -20110211) Creatinine (test 0.75 mg/dL 0.50-1.05 For patient s >49 code = 0761695) years of age , the reference limit for Creatinine is approximately 1 3% higher for peopleidentifie d as -Ayse n. eGFR If NonAfricn Am 88 See_Comment [Autom ated message] (test code = The system [facility] [id number]) generated this result transmitted ref erence range: > OR = 6 0 mL/min/1.73m2. The reference range was not used to int erpret this result as normal/abnormal . eGFR If Africn Am 103 See_Comment [Automate d message] (test code = The system [facility] [id number]) generated this result transmitted ref erence range: > OR = 6 0 mL/min/1.73m2. The reference range was not used to int erpret this result as normal/abnormal . BUN/Creatinine Ratio NOT APPLICABLE See_Comment [Aut omated message] (test code = The system [facility] h ) generated this result transmitted ref erence range: 6 - 22 ( calc). The reference r charlotte was not used to interpret this result as normal/abnor mal. Sodium (test code = 137 mmol/L 135-445 [id number]) Potassium, Serum 4.6 mmol/L 3.5-5.3 (test code = 20110226) Chloride (test code 98 mmol/L 98-110 = [id number]) Carbon Dioxide, 33 mmol/L 20-32 H Total (test code = ) Calcium, Serum (test 9.9 mg/dL 8.6-10.4 code = [id number]) JENNIFER (test code = FASTING:YES JENNIFER) FASTING: YES Lab Interpretation Abnormal (test code = 81860-1) [facility] function [id number] 10:43:00 Test Item Value Reference Range Interpretation Comments Protein, Total, Serum 8.3 g/dL 6.1-8.1 H (test code = 20110215) Albumin (test code = 4.4 g/dL 3.6-5.1 ) GLOBULIN (QUEST) 3.9 See_Comment H [Automated (test code = 4728752) Clear Standardsag e] The system which generated this result [...] 1.3 mg/dL 0.2-1.2 H (test code = 3107950) Bilirubin, Direct 0.3 mg/dL See_Comment H [Automate d (test code = 8063889) messag e] The system which generated this result transmit christopher reference range : < OR = 0.2. The reference range was not used to interpret this result as normal/abnormal . Bilirubin, Indirect 1.0 See_Comment [Automa christopher (test code = 9517531) messag e] The system which generated this [...] YES Lab Interpretation Abnormal (test code = 24053-3) [facility] with platelet count + automated dkrd0960-00-11 10:43:00 Test Item Value Reference Range Interpretation [...] MPV (test code = 12.3 fL 7.5-12.5 8698015) # Neutros (test code 6753 See_Comment [Autom ated = 9437653) message] The system which generated this result [...] YES Lab Interpretation Abnormal (test code = 13169-1) [facility]/WUA3922-15-50 10:43:00 Test Item Value Reference Range Interpretation Comments INR (test code = 1.1 Reference R charlotte ) 0.9-1.1Moderate -intens ity Warfarin Th erapy 2.0-3.0Higher-i ntensit y Warfarin Ther apy 3.0-4.0 PT (test code = 11.2 See_Comment For addition al ) information, pl ease refer tohttp://educat ion.que stdiagnostics.c om/faq/ RGK075(This chika k is being provided for informational/e ducatio nal purposes on ly.) [Automated mess age] The system [employer] generated this result transmitted ref erence range: 9.0 - 11 .5 sec. The reference r charlotte was not used to interpret this result as normal/abnor mal. JENNIFER (test code = FASTING:YES JENNIFER) FASTING: YES [facility] CenterAlpha fetoprotein (AFP), tumor vxrdgk3510-62-22 10:43:00 Test Item Value Reference Range Interpretation Comments Alpha-Fetopr 5.1 ng/mL Reference Range : <6.1The use otein (test of AFP as a earl or marker in code = females is not 1834-1) recommended. Th is test was performed using the [employer] Technologieschemilum inescent method. Values obtained fromdifferent a ssay methods cannot be usedi nterchangeably. AFP levels, reg ardless ofvalue, should not be interpreted as absoluteevidenc e of the presence or abs ence of disease. JENNIFER (test FASTING:YES code = JENNIFER) FASTING: YES [facility] CenterBasic Metabolic Jygtn9436-03-13 10:43:00 Test Item Value Reference Interpretation Comments Range Glucose (test code = 142 mg/dL 65-99 H Fastin g reference ) interval For so meone without known diabetes, a glucosevalue >1 25 mg/dL [...] ated message] (test code = The system [employer] 2047694) generated this result transmitted ref erence range: > OR = 6 0 mL/min/1.73m2. The reference range was not used to int erpret this result as normal/abnormal . eGFR If Africn Am 103 See_Comment [Automate d message] (test code = The system [employer] 0921225) generated this result transmitted ref erence range: > OR = 6 0 mL/min/1.73m2. The reference range was not used to int erpret this result as normal/abnormal . BUN/Creatinine Ratio NOT APPLICABLE See_Comment [Aut omated message] (test code = The system [facility] h ) generated this result transmitted ref erence range: 6 - 22 ( calc). The reference r charlotte was not used to interpret this result as normal/abnor mal. Sodium (test code = 137 mmol/L 135-326 7365310) Potassium, Serum 4.6 mmol/L 3.5-5.3 (test code = 20110226) Chloride (test code 98 mmol/L 98-110 = 9455896) Carbon Dioxide, 33 mmol/L 20-32 H Total (test code = ) Calcium, Serum (test 9.9 mg/dL 8.6-10.4 code = 0932835) JENNIFER (test code = FASTING:YES JENNIFER) FASTING: YES Lab Interpretation Abnormal (test code = 49680-3) [facility] CenterHepatic function tkvqq6872-02-91 10:43:00 Test Item Value Reference Range Interpretation Comments Protein, Total, Serum 8.3 g/dL 6.1-8.1 H (test code = 20110215) Albumin (test code = 4.4 g/dL 3.6-5.1 ) GLOBULIN (QUEST) 3.9 See_Comment H [Automated (test code = 6580431) messag e] The system which generated this [...] 1.3 mg/dL 0.2-1.2 H (test code = 7231646) Bilirubin, Direct 0.3 mg/dL See_Comment H [Automate d (test code = 8677594) messag e] The system which generated this result transmit christopher reference range : < OR = 0.2. The reference range was not used to interpret this result as normal/abnormal . Bilirubin, Indirect 1.0 See_Comment [Automa christopher (test code = 5112946) messag e] The system which generated this [...] YES Lab Interpretation Abnormal (test code = 62468-1) [facility] with platelet count + automated mtwy9499-16-25 10:43:00 Test Item Value Reference Range Interpretation [...] MPV (test code = 12.3 fL 7.5-12.5 4593969) # Neutros (test code 6753 See_Comment [Autom [...] YES Lab Interpretation Abnormal (test code = 22484-7) [facility] CenterPro-time/MFD4155-14-67 10:43:00 Test Item Value Reference Range Interpretation Comments INR (test code = 1.1 Reference R charlotte ) 0.9-1.1Moderate -intens ity Warfarin Th erapy 2.0-3.0Higher-i ntensit y Warfarin Ther apy 3.0-4.0 PT (test code = 11.2 See_Comment For addition al ) information, pl ease refer tohttp://educat ion.[facility] stdiagnostics.c om/faq/ MYO114(This chika k is being provided for informational/e ducatio nal purposes on ly.) [Automated mess age] The system [employer] generated this result transmitted ref erence range: 9.0 - 11 .5 sec. The reference r charlotte was not used to interpret this result as normal/abnor mal. JENNIFER (test code = FASTING:YES JENNIFER) FASTING: YES [facility] CenterAlpha fetoprotein (AFP), tumor jlmxbu1248-57-51 10:43:00 Test Item Value Reference Range Interpretation Comments Alpha-Fetopr 5.1 ng/mL Reference Range : <6.1The use otein (test of AFP as a earl or marker in code = females is not 1834-1) recommended. Th is test was performed using the [employer]il[employer] inescent method. Values obtained fromdifferent a ssay methods cannot be usedi nterchangeably. AFP levels, reg ardless ofvalue, should not be interpreted as absoluteevidenc e of the presence or abs ence of disease. JENNIFER (test FASTING:YES code = JENNIFER) FASTING: YES [facility] CenterCT CHEST [id number] 20:32:00 [facility] : 1965 Sex: F [place] [address] Patient Name: MARLYS GARNETT MR #: [id number] : 1965 Age/Sex: 56/F Req #: [id number] [facility] Physician: Ordered by: HUGH COELLO MD Report #: [id number] Location: ER Room/Bed: Procedure: [id number] CT/CT CHEST W Exam Date: 05/08/21 Exam Time: 1939 REPORT STATUS: Signed CLINICAL HISTORY: Shortness of breath, status post wrist surgery FINDINGS: Multiple axial images of the chest were performed after the uncomplicated administration of IV contrast, utilizing a pulmonary embolism protocol. Post-processing coronal reformats were created and interpreted. This exam was performed according to our departmental dose- optimization program, which includes automated exposure control, adjustment of the mA and/or kV according to patient size and/or use of the iterative reconstructiontechnique. Study quality:Limited by patient body habitus, streak artifact from right arm position and intermittent respiratory motion artifact. Comparison:01/10/2021 Pulmonary arteries: No pulmonary embolism is identified Lung parenchyma: Low lung volumes. Bilateral dependent atelectasis, right greater t vega left. Pleural effusion: None. Pneumothorax: None. Tracheobronchial tree: No significant findings. Pulmonary vasculature: Central vascular engorgement may be exaggerated by low lung volumes. Cardiaccontours and great vessels: Atherosclerotic calcification of the [...] after clinical stabilization to enable sufficient breath-hold duringimaging can be considered. Alternatively, a V/Q scan can be obtained, as indicated. Low lung volumes. Right greater than left dependent atelectasis versus pneumonitis. Central pulmonary vascular engorgement may be exaggerated by low lung volumes or reflect mild vascular congestion. Signed by: Alisa Ochoa on 05/08/2021 8:32 PM Dictated By: ALISA OCHOA MD 33 Transcribed By: ANNIE on 05/08/212031 COPY TO: HUGH COELLO MDBlood leukocytes automated count (number/volume)2021-05-08 18:20:00 Test Item Value Reference Range Interpretation Comments White Blood Count (test code = 6690-2) 10.25 4.8-10.8 [facility] count (number/volume)2021-05-08 18:20:00 Test Item Value Reference Range Interpretation Comments Red Blood Count (test code = 789-8) 5.04 3.6-5.1 [facility] (moles/volume) 2021-05-08 18:20:00 Test Item Value Reference Range Interpretation Comments Hemoglobin (test code = 80153-0) 13.8 12.0-16.0 [facility]Automated blood hematocrit (volume fraction) 2021-05-08 18:20:00 Test Item Value Reference Range Interpretation Comments Hematocrit (test code = 4544-3) 43.0 34.2-44.1 [facility]Automated erythrocyte mean corpuscular volume 2021-05-08 18:20:00 Test Item Value Reference Range Interpretation Comments Mean Corpuscular Volume (test code = 85.3 81-99 787-2) [facility]Autom[facility] erythrocyte mean corpuscular hemoglobin (mass per erythrocyte)2021-05-08 18:20:00 Test Item Value Reference Range Interpretation Comments Mean Corpuscular Hemoglobin (test code 27.4 28-32 = 785-6) [facility]Autom[facility] erythrocyte mean corpuscular hemoglobin concentration measurement (mass/volume)2021-05-08 18:20:00 Test Item Value Reference Range Interpretation Comments Mean Corpuscular Hemoglobin Concent 32.1 31-35 (test code = 786-4) [facility] HospitalRDW GfyBq-Afq6610-96-29 18:20:00 Test Item Value Reference Range Interpretation Comments Red Cell Distribution Width (test code 14.3 11.7-14.4 = 95430-6) [facility]Autom[facility] blood platelet count (count/volume) 2021-05-08 18:20:00 Test Item Value Reference Range Interpretation Comments Platelet Count (test code = 777-3) 111 140-360 [facility]Automated blood segmented neutrophil count as percentage of total zpjrkkhbhw3508-31-60 18:20:00 Test Item Value Reference Range Interpretation Comments Neutrophils (%) (Auto) (test code = 88.5 38.7-80.0 79686-9) [facility] HospitalAutomated blood lymphocyte count as percentage ot total dwgiwocpdf9272-57-54 18:20:00 Test Item Value Reference Range Interpretation Comments Lymphocytes (%) (Auto) (test code = 7.8 18.0-39.1 736-9) [facility] HospitalAutomated blood monocyte count as percentage of total lhwdlxnrdr7860-34-59 18:20:00 Test Item Value Reference Range Interpretation Comments Monocytes (%) (Auto) (test code = 2.8 4.4-11.3 5905-5) [facility] HospitalAutomated blood eosinophil count as percentage of total orueiimdlf0268-11-76 18:20:00 Test Item Value Reference Range Interpretation Comments Eosinophils (%) (Auto) (test code = 0.0 0.0-6.0 713-8) [facility]Autom[facility] blood basophil count as percentage of total bideyxovdd3553-87-09 18:20:00 Test Item Value Reference Range Interpretation Comments Basophils (%) (Auto) (test code = 0.3 0.0-1.0 706-2) [facility] HospitalFluoroscopic procedure less than one hour jfptjbyp6759-54-80 18:20:00 Test Item Value Reference Range Interpretation Comments IM GRANULOCYTES % (test code = IM 0.6 0.0-1.0 GRANULOCYTES %) [facility]Automated blood neutrophil mpwcd6463-15-03 18:20:00 Test Item Value Reference Range Interpretation Comments Neutrophils # (Auto) (test code = 9.1 2.1-6.9 751-8) [facility]Blood lymphocytes count (number/volume) 2021-05-08 18:20:00 Test Item Value Reference Range Interpretation Comments Lymphocytes # (Auto) (test code = 0.8 1.0-3.2 52247-6) [facility] HospitalBlood monocytes automated count (number/volume)2021-05-08 18:20:00 Test Item Value Reference Range Interpretation Comments Monocytes # (Auto) (test code = 742-7) 0.3 0.2-0.8 [facility] HospitalAutomated blood eosinophil ukqlh7944-06-34 18:20:00 Test Item Value Reference Range Interpretation Comments Eosinophils # (Auto) (test code = 0.0 0.0-0.4 711-2) [facility] HospitalAutomated blood basophil count (count/volume) 2021-05-08 18:20:00 Test Item Value Reference Range Interpretation Comments Basophils # (Auto) (test code = 704-7) 0.0 0.0-0.1 [facility] HospitalFluoroscopic procedure less than one hour wxzzuvvj0829-98-19 18:20:00 Test Item Value Reference Range Interpretation Comments Absolute Immature Granulocyte (auto 0.06 0-0.1 (test code = Absolute Immature Granulocyte (auto) [facility] HospitalProthrombin time (PT) in platelet poor plasma by coagulation ltmkh1285-23-67 18:20:00 Test Item Value Reference Range Interpretation Comments Prothrombin Time (test code = 5902-2) 14.2 11.9-14.5 [facility] HospitalINR in Platelet poor plasma by Coagulation pawso7251-51-86 18:20:00 Test Item Value Reference Range Interpretation Comments Prothromb Time International Ratio 1.04 (test code = 6301-6) [facility] HospitalActivated partial thromboplastin time (aPTT) in platelet poor plasma by coagulation qiwfj4393-79-82 18:20:00 Test Item Value Reference Range Interpretation Comments Activated Partial Thromboplast Time 26.0 23.8-35.5 (test code = 68325-1) [facility] Campuserum or plasma sodium measurement (moles/volume)2021-05-08 18:20:00 Test Item Value Reference Range Interpretation Comments Sodium Level (test code = 2951-2) 133 136-145 [facility] Campuserum or plasma potassium measurement (moles/volume)2021-05-08 18:20:00 Test Item Value Reference Range Interpretation Comments Potassium Level (test code = 2823-3) 4.5 3.5-5.1 [facility] Campuserum or plasma chloride measurement (moles/volume)2021-05-08 18:20:00 Test Item Value Reference Range Interpretation Comments Chloride Level (test code = 2075-0) 102 98-107 [facility] Campuserum or plasma carbon dioxide, total measurement (moles/volume)2021-05-08 18:20:00 Test Item Value Reference Range Interpretation Comments Carbon Dioxide Level (test code = 2027-) [facility] Campuserum or plasma anion [id number] 18:20:00 Test Item Value Reference Range Interpretation Comments Anion Gap (test code = 94911-6) 14.5 8-16 [facility] Campuserum or plasma urea nitrogen measurement (mass/volume)2021-05-08 18:20:00 Test Item Value Reference Range Interpretation Comments Blood Urea Nitrogen (test code = 14 05-05 3094-0) [facility] Campuserum or plasma creatinine measurement (mass/volume)2021-05-08 18:20:00 Test Item Value Reference Range Interpretation Comments Creatinine (test code = 2160-0) 0.86 0.57-1.11 [facility] Campuserum or plasma urea nitrogen/creatinine mass sntee2867-02-58 18:20:00 Test Item Value Reference Range Interpretation Comments BUN/Creatinine Ratio (test code = 16 04-04 3097-3) [facility] HospitalEstimated glomerular filtration rate (GFR) xihmpdjbcxpms2864-89-98 18:20:00 Test Item Value Reference Range Interpretation Comments Estimat Glomerular 68 See_Comment [Automat ed message] The Filtration Rate (test system which generated code = 694756289) this resul t transmitted reference range : 60-. The reference r charlotte was not used to int erpret this result as normal/abnormal . [facility] HospitalGlucose hgihewgvwom3073-13-19 18:20:00 Test Item Value Reference Range Interpretation Comments Glucose Level (test code = CEC7171) 243 74-118 [facility] Campuserum or plasma calcium measurement (mass/volume)2021-05-08 18:20:00 Test Item Value Reference Range Interpretation Comments Calcium Level (test code = 77760-1) 8.7 8.4-10.2 [facility] Campuserum or plasma total bilirubin measurement (mass/volume)2021-05-08 18:20:00 Test Item Value Reference Range Interpretation Comments Total Bilirubin (test code = 1975-2) 1.5 0.2-1.2 [facility] HospitalFluoroscopic procedure less than one hour guvlcxip2098-80-78 18:20:00 Test Item Value Reference Range Interpretation Comments Aspartate Amino Transf (AST/SGOT) (test 32 5-34 code = Aspartate Amino Transf (AST/SGOT)) [facility] Campuserum or plasma alanine aminotransferase measurement (enzymatic activity/volume)2021-05-08 18:20:00 Test Item Value Reference Range Interpretation Comments Alanine Aminotransferase (ALT/SGPT) 27 0-55 (test code = 1742-6) [facility] Campuserum or plasma protein measurement (mass/volume)2021-05-08 18:20:00 Test Item Value Reference Range Interpretation Comments Total Protein (test code = 2885-2) 7.7 6.5-8.1 [facility] Campuserum or plasma albumin measurement (mass/volume)2021-05-08 18:20:00 Test Item Value Reference Range Interpretation Comments Albumin (test code = 1751-7) 3.5 3.5-5.0 [facility] HospitalPlasma globulin measurement (mass/volume) 2021-05-08 18:20:00 Test Item Value Reference Range Interpretation Comments Globulin (test code = 84788-5) 4.2 2.3-3.5 [facility] Campuserum or plasma albumin/globulin mass ratio 2021-05-08 18:20:00 Test Item Value Reference Range Interpretation Comments Albumin/Globulin Ratio (test code = 0.8 0.8-2.0 1759-0) [facility] Campuserum or plasma alkaline phosphatase measurement (enzymatic activity/volume)2021-05-08 18:20:00 Test Item Value Reference Range Interpretation Comments Alkaline Phosphatase (test code = 93 40150 6768-6) [facility] Campuserum or plasma creatine kinase measurement (enzymatic activity/volume)2021-05-08 18:20:00 Test Item Value Reference Range Interpretation Comments Creatine Kinase (test code = 2157-6) 78 29-168 [facility] Campuserum or plasma creatine kinase MB measurement (mass/volume)2021-05-08 18:20:00 Test Item Value Reference Range Interpretation Comments Creatine Kinase MB (test code = 0.90 0-5.0 79514-8) [facility] HospitalTroponin I measurement by highly sensitive enzyme zinanmzewse3367-15-23 18:20:00 Test Item Value Reference Range Interpretation Comments Troponin I (test code = 14025-6) 0.001 0-0.300 [facility] CampusARS-CoV-2 (COVID-19) RNA [Presence] in Respiratory specimen by ANISH with probe [id number] 18:20:00 Test Item Value Reference Range Interpretation Comments Coronavirus (PCR) (test code = NOT DETECTED NOTDETECTED 01937-2) [facility]PO-Glucose xqsvu9747-35-05 11:04:00 Test Item Value Reference Range Interpretation Comments POC-Glucose Meter (test 180 mg/dL 70-110 H : TE STED AT [facility] code = 1538) [facility]0 [facility] [address]: Medical Psychotherapist/Techni melissa ID = [id number] for Hassan, Frida Lab Interpretation (test Abnormal code = 47245-3) [facility] CenterPO-Glucose qacyk8609-94-74 11:04:00 Test Item Value Reference Range Interpretation Comments POC-Glucose Meter (test 180 mg/dL 70-110 H : TE STED AT [facility] code = 1538) [address] [facility] [address]: Medical Psychotherapist/Techni melissa ID = [id number] for Hassan, Frida Lab Interpretation (test Abnormal code = 47415-9) [facility] CenterPO-Glucose ejyhh3729-12-27 11:04:00 Test Item Value Reference Range Interpretation Comments POC-Glucose Meter (test 180 mg/dL 70-110 H : TE STED AT [facility] code = 1538) [address] [facility] [address]: Medical Psychotherapist/Techni melissa ID = [id number] for Frida Hassan Lab Interpretation (test Abnormal code = 63467-4) [facility]-Glucose pujto4138-99-09 11:04:00 Test Item Value Reference Range Interpretation Comments POC-Glucose Meter (test 180 mg/dL 70-110 H : TE STED AT [facility] code = 1538) [address] [facility] [address]: Medical Psychotherapist/Techni melissa ID = [id number] for Frida Hassan Lab Interpretation (test Abnormal code = 00014-6) [facility]-GLUCOSE [id number] 11:04:00 Test Item Value Reference Range Interpretation Comments POC-GLUCOSE METER 180 mg/dL 70-110 H : TESTED A T [facility] 7200 (BEAKER) (test code [facility]STINE Ribeiro [facility], = 1538) [facility] 7703 0: Medical Psychotherapist/Techni melissa ID = [id number] for Frida Estrada ANESTHESIA PERIPHERAL CEEQX1285-71-68 10:23:52Archana Rivero MD 05/08/2021 10:25 AMPeripheral Block [...] lateral decubitusPatient monitoring: EKG, HR, BP and DvH8Opugpiuzfk: rightBlock type: supraclavicularInjection technique: catheterlandmark technique, ultrasound guided and landmark technique - in plane, prescan was completed prior to procedure and needle tipwas visualized throughout the entire procedureultrasound image savedBlock Dose: ropivicaine and catheterInfiltration strength: 0.35 %Dose: 20 mL NeedleNeedle type: over the needle catheter (pajunk ecath)Needle gauge: 18 GNeedle length: 75mm.Needle Localization: anatomical landmarks and US guided Hydrodissection? yesCatheter tunneledDressing: Occlusive dressing applied in sterile fashion and Dermabondapplied at the catheter insertion site AssessmentInjection assessment: incremental injection and negative aspiration for heme Pain scale pre-procedure: 5Pain scale post-procedure: 2LOC: Sedated with meaningful contactsupplemental oxygen used.no evidence of intravascular injection and no heart rate changeno paresthesiapatient had no immediate complications and patient tolerated the procedure wellCHI Vencor HospitalANESTHESIA PERIPHERAL [id number] 10:23:52Archana Rivero MD 05/08/2021 10:25 AMPeripheral Block Patient location during procedure: pre-procedureStart time: 05/08/2021 7:32 AMEnd time: 05/08/2021 7:41 AM Procedure Indication: procedure for pain, at surgeon's request and post-op pain management Preanesthetic ChecklistCompleted: patient identified, pre-op evaluation, timeout performed, IV checked, risks and benefits discussed, monit ors and equipment checked, anesthesia consent given, prep site dry prior to draping and maximum sterile barriers were used: cap, mask, sterile gown, sterile gloves, and large sterile sheet StaffingAnesthesiologist: Archana Rivero MDPerformed: personally PrepPrep: chlorhexidineProcedures: sterile gloves, surgical mask, surgical hat, sterile technique and prep and sterile drape applied Peripheral Nerve BlockPatient position: left lateral decubitusPatient monitoring: EKG, HR, BP and OqO4Pxbzfpfblo: rightBlock type: supraclavicularInjection technique: catheterlandmark technique, ultrasound guided and landmark technique - in plane, prescan was completed prior to procedure and needle tipwas visualized throughout the entire procedureultrasound image savedBlock Dose: ropivicaine and catheterInfiltration strength: 0.35 %Dose: 20 mL NeedleNeedle type: over the needle catheter (pajunk ecath)Needle gauge: 18 GNeedle length: 75mm.Needle Localization: anatomical landmarks and US guided Hydrodissection? yesCatheter tunneledDressing: Occlusive dressing applied in sterile fashion and Dermabondapplied at the catheter insertion site AssessmentInjection assessment: incremental injection and negative aspiration for heme Pain scale pre-procedure: 5Pain scale post-procedure: 2LOC: Sedated with meaningful contactsupplemental oxygen used.no evidence of intravascular injection and no heart rate changeno paresthesiapatient had no immediate complications and patient tolerated the procedure wellWestlake Outpatient Medical CenterFL, FLUORO, NON-SPECIFIC, UP TO 1 [id number] 10:15:00Referring: Mily Keyes PA-C Reason for exam:->mares [facility] : 1965 Sex: FFluoroscopic unit utilized for a procedure performed in the OR. No interpretation was requested. Refer to the operative report for findings. Refer to PACS for patient radiation dose information.FL fluoro non-specific up to 1 [id number] 10:15:00 Interface, External Ris In 05/08/2021 10:16 AM CDTFluoroscopic unit utilized for a procedure performed in the OR. No interpretation was requested. Refer to the operative report for findings. Refer toPACS for patient radiation dose information.[facility] CenterFL fluoro non-specific up to 1 hour 2021-05-08 10:15:00Interface, External Ris In 05/08/2021 10:16 AM CDTFluoroscopic unit utilized for a procedure performed in the OR. No interpretation was requested. Refer to the operative report for findings. Refer [facility] for patient radiation dose information.[facility] Alkaline [id number] 07:01:00 Test Item Value Reference Range Interpretation Comments Alkaline Phosphatase (test code = 93 U/L 40-150 6768-6) Lab Interpretation (test code = Normal 66685-7) [facility] CenterAST (SGOT)2021-05-08 07:01:00 Test Item Value Reference Range Interpretation Comments AST (test code = 1920-8) 61 U/L 5-34 H Spe cimen markedly hemolyzed Lab Interpretation (test Abnormal code = 26774-0) [facility] CenterProthrombin time/[id number] 07:01:00 Test Item Value Reference Interpretation Comments Range Protime (test code = 11.2 See_Comment [Autom ated 5902-2) message] The system which generated this result transmitted reference range : 9.8 - 12.0 seconds. The reference range was not used to interpret this result as normal/abnormal . INR (test code = 1.04 See_Comment [Automated 7421-6) message] The system which generated this result [...] valves. Lab Interpretation Normal (test code = 97195-9) [facility] CenteraPTT2021-07-29 07:01:00 Test Item Value Reference Range Interpretation Comments PTT (test code = 25.0 See_Comment L [Automated message] 31788-2) The system [employer] h generated this result transmitted ref erence range: 25.8 - 3 4.5 seconds. The reference range was not used to int erpret this result as normal/abnormal . Lab Interpretation (test Abnormal code = 98797-6) [facility] CenterAlkaline [id number] 07:01:00 Test Item Value Reference Range Interpretation Comments Alkaline Phosphatase (test code = 93 U/L 40-150 6768-6) Lab Interpretation (test code = Normal 77432-9) [facility]AST (SGOT)2021-05-08 07:01:00 Test Item Value Reference Range Interpretation Comments AST (test code = 1920-8) 61 U/L 5-34 H Spe cimen markedly hemolyzed Lab Interpretation (test Abnormal code = 79856-1) [facility] CenterProthrombin time/[id number] 07:01:00 Test Item Value Reference Interpretation Comments Range Protime (test code = 11.2 See_Comment [Autom ated 5902-2) message] The system which generated this result transmitted reference range : 9.8 - 12.0 seconds. The reference range was not used to interpret this result as normal/abnormal . INR (test code = 1.04 See_Comment [Automated 6301-6) message] The system which generated this result [...] valves. Lab Interpretation Normal (test code = 53649-1) [facility] CenteraPTT2021-07-29 07:01:00 Test Item Value Reference Range Interpretation Comments PTT (test code = 25.0 See_Comment L [Automated message] 64558-4) The system whic h generated this result transmitted ref erence range: 25.8 - 3 4.5 seconds. The reference range was not used to int erpret this result as normal/abnormal . Lab Interpretation (test Abnormal code = 37731-7) [facility] CenterAlkaline [id number] 07:01:00 Test Item Value Reference Range Interpretation Comments Alkaline Phosphatase (test code = 93 U/L 40-150 6768-6) Lab Interpretation (test code = Normal 61619-3) [facility] CenterAST (SGOT)2021-05-08 07:01:00 Test Item Value Reference Range Interpretation Comments AST (test code = 1920-8) 61 U/L 5-34 H Spe cimen markedly hemolyzed Lab Interpretation (test Abnormal code = 63078-7) [facility] CenteraPTT2021-07-29 07:01:00 Test Item Value Reference Range Interpretation Comments PTT (test code = 25.0 See_Comment L [Automated message] 48918-6) The system [employer] generated this result transmitted ref erence range: 25.8 - 3 4.5 seconds. The reference range was not used to int erpret this result as normal/abnormal . Lab Interpretation (test Abnormal code = 50069-9) [facility] CenterAlkaline [id number] 07:01:00 Test Item Value Reference Range Interpretation Comments Alkaline Phosphatase (test code = 93 U/L 40-150 6768-6) Lab Interpretation (test code = Normal 11848-5) [facility] CenterAST (SGOT)2021-05-08 07:01:00 Test Item Value Reference Range Interpretation Comments AST (test code = 1920-8) 61 U/L 5-34 H Spe cimen markedly hemolyzed Lab Interpretation (test Abnormal code = 15354-5) [facility] CenteraPTT2021-07-29 07:01:00 Test Item Value Reference Range Interpretation Comments PTT (test code = 25.0 See_Comment L [Automated message] 69465-5) The system [employer] generated this result transmitted ref erence range: 25.8 - 3 4.5 seconds. The reference range was not used to int erpret this result as normal/abnormal . Lab Interpretation (test Abnormal code = 74847-3) [facility] CenterPROTHROMBIN TIME/[id number] 07:01:00 Test Item Value Reference Range Interpretation Comments PROTIME (BEAKER) 11.2 seconds 9.8-12.0 (test code = 759) INR (BEAKER) (test 1.04 See_Comment [Automat ed message] code = 370) The system [employer] generated this result transmitted ref erence range: <=5.90. The reference range was not used to int erpret this result as normal/abnormal . RECOMMENDED COUMADIN/WARFARIN INR THERAPY RANGESSTANDARD DOSE: 2.0 - 3.0 Includes: PROPHYLAXIS for venous thrombosis, systemic embolization; TREATMENT for venous thrombosis and/or pulmonary embolus.HIGH RISK: Target INR is 2.5-3.5 for patients with mechanical heart valves.[id number] 07:01:00 Test Item Value Reference Range Interpretation Comments PARTIAL THROMBOPLASTIN TIME 25.0 seconds 25.8-34.5 L (BEAKER) (test code = 760) AST (SGOT)2021-05-08 07:01:00 Test Item Value Reference Range Interpretation Comments AST (SGOT) (BEAKER) 61 U/L 5-34 H Specimen markedly (test code = 353) hemolyzed ALKALINE [id number] 07:01:00 Test Item Value Reference Range Interpretation Comments ALKALINE PHOSPHATASE (BEAKER) (test 93 U/L 40-150 code = 346) POCT-GLUCOSE [id number] 06:38:00 Test Item Value Reference Range Interpretation Comments POC-GLUCOSE METER 130 mg/dL 70-110 H : TESTED A T BLSMC 7200 (SplitSecnd) (test code [place]ID[place] E BLDG A, = 1538) [facility] 7703 0: Medical Psychotherapist/Techni melissa ID = [id number] for DANIS MARTINEZA SARS-CoV2/RT-PCR (Asymptomatic ONLY)2021-05-07 03:56:00 Test Item Value Reference Range Interpretation Comments SARS-COV2/RT-PCR (test Negative Negative code = 14695-3) JENNIFER (test code = JENNIFER) Negative result [...] the Act. Testing was performed using the [facility] SARS-CoV-2 assay. Fact Sheet for Healthcare Providers:https://www.bruna hook/erum/RT SARS-CoV-2 HCP Fact Sheet 51-337888.pdf Fact Sheet for Healthcare Patients:https://www.matt reynoldssoto/erum/RT SARS-CoV-2 Patient Fact Sheet EN 51-061803O7.pdf Lab Interpretation Normal (test code = 33853-6) [facility]2021-05-07 03:56:00 Test Item Value Reference Range Interpretation Comments SARS-COV2/RT-PCR (test Negative Negative code = 66365-6) JENNIFER (test code = JENNIFER) Negative result [...] the Act. Testing was performed using the [facility] SARS-CoV-2 assay. Fact Sheet for Healthcare Providers:https://www.bruna stevensoto/erum/RT SARS-CoV-2 HCP Fact Sheet 51-356924.pdf Fact Sheet for Healthcare Patients:https://www.matt reynoldsNetaxs Internet Services/erum/RT SARS-CoV-2 Patient Fact Sheet EN 51-871271U4.pdf Lab Interpretation Normal (test code = 22173-2) [facility] (Asymptomatic ONLY)2021-05-07 03:56:00 Test Item Value Reference Range Interpretation Comments SARS-COV2/RT-PCR (test Negative Negative code = 69791-2) JENNIFER (test code = JENNIFER) Negative result [...] the Act. Testing was performed using the [facility] SARS-CoV-2 assay. Fact Sheet for Healthcare Providers:https://www.bruna stevenNetaxs Internet Services/erum/RT SARS-CoV-2 HCP Fact Sheet 51-923675.pdf Fact Sheet for Healthcare Patients:https://www.matt bessVatgia.com/erum/RT SARS-CoV-2 Patient Fact Sheet EN 51-223526K0.pdf Lab Interpretation Normal (test code = 61120-3) [facility] (Asymptomatic ONLY)2021-05-07 03:56:00 Test Item Value Reference Range Interpretation Comments SARS-COV2/RT-PCR (test Negative Negative code = 68820-5) JENNIFER (test code = JENNIFER) Negative result [...] the Act. Testing was performed using the [facility] SARS-CoV-2 assay. Fact Sheet for Healthcare Providers:https://www.bruna stevensoto/erum/RT SARS-CoV-2 HCP Fact Sheet 51-233345.pdf Fact Sheet for Healthcare Patients:https://www.matt bessVatgia.com/erum/RT SARS-CoV-2 Patient Fact Sheet EN 51-055721F4.pdf Lab Interpretation Normal (test code = 17486-0) [facility] ([facility])2021-05-07 03:56:00 Test Item Value Reference Range Interpretation Comments SARS-COV2/RT-PCR (test code = Negative Negative 6353839) Negative result for this test determines that [...] under Section 564(g) of the Act.Testing was performed using [facility] SARS-CoV-2 assay.Fact Sheet for Healthcare Providers:https://www.[employer].soto/erum/RT SARS-CoV-2 HCP Fact Sheet 51- 071127.pdfFact Sheet for Healthcare Patients:https://www.[employer].soto/erum/RT SARS-CoV-2 Patient Fact Sheet EN 51-107703V8.[id number] 11:43:03 Test Item Value Reference Range Interpretation Comments FERRITIN (test code = See_Comment H Unles s Otherwise 97298-5) Indicated, All Testing Perform ed At: [facility], [address] [place] [address] Laborator y Director: Nikhil Montoya M.D. CLIA Number [id number] Cap Accreditation N o. [id number] [Autom ated message] The sy stem which generated this result transmit christopher reference range : 13.0 - 200.0 NG/ML. The reference range was not used to int erpret this result as normal/abnormal . Lab Interpretation (test Abnormal code = 19815-0) [facility] [id number] 08:48:22 Test Item Value Reference Range Interpretation Comments GLUCOSE (test code = See_Comment H [Autom ated message] 2345-7) The system whic h generated this result [...] See_Comment [Au tomated message] 2160-0) The system [employer] generated this result transmitted ref erence range: 0.60 - 1 .30 MG/DL. The refe rence range was not u sed to interpret this result as normal/abnor mal. EGFR AA (test code = See_Comment [Autom ated message] 22772-6) The system [employer] generated this result transmitted ref erence range: >60 ML/MIN/1.73. Th e reference range was not used to int erpret this result as normal/abnormal . EGFR (test code = See_Comment [Automate d message] 81689-6) The system [employer] generated this result transmitted ref erence range: >60 ML/MIN/1.73. Th e reference range was not used to int erpret this result as normal/abnormal . SODIUM (test code = See_Comment [Automa christopher message] 2951-2) The system [employer] generated this result transmitted ref erence range: 133 - 14 6 MEQ/L. The refe rence range was not u sed to interpret this result as normal/abnor mal. POTASSIUM (test code = See_Comment [Aut omated message] 9983-3) The system [employer] generated this result transmitted ref erence range: 3.5 - 5. 4 MEQ/L. The refe rence range was not u sed to interpret this result as normal/abnor mal. CHLORIDE (test code = See_Comment [Auto mated message] 7995-0) The system [employer] generated this result transmitted ref erence range: 95 - 107 MEQ/L. The refe rence range was not u sed to interpret this result as normal/abnor mal. CO2 (test code = 1963-8) See_Comment [A utomated message] The system [employer] generated this result transmitted ref erence range: 19 - 31 MEQ/L. The reference r charlotte was not used to interpret this result as normal/abnor mal. CALCIUM (test code = See_Comment Unless Otherwise 72878-5) Indicated, All Testing Perform ed At: [facility], [address] [facility] [address] Laborator y Director: Nikhil Montoya M.D. CLIA Number [id number] Cap Accreditation N o. [id number] [Autom ated message] The sy stem which generated this result transmit christopher reference range : 8.5 - 10.5 MG/DL. T he reference range was not used to int erpret this result as normal/abnormal . Lab Interpretation (test Abnormal code = 29124-6) [facility] CenterHEPATIC FUNCTION [id number] 08:48:22 Test Item Value Reference Range Interpretation Comments PROTEIN TOTAL (test See_Comment [Automa christopher message] The code = 2885-2) system which generated this result tra nsmitted reference range : 6.1 - 8.3 G/DL. The r eference range was not u sed to interpret this result as normal/abnormal . ALBUMIN (test code = See_Comment [Autom ated message] The 53782-7) system which ge nerated this result tra nsmitted reference range : 3.5 - 5.2 G/DL. The r eference range was not u sed to interpret this result as normal/abnormal . BILIRUBIN TOTAL (test See_Comment [Auto mated message] The code = 1975-2) system which generated this result tra nsmitted [...] ALT (SGPT) (test code 26 U/L 5-40 Unles s Otherwise = 1744-2) Indicated, All Testing Performed At: [facility], [address] [place] [address] [place] [address] Director: Umair GarciaIA Number [id number] Cap Accreditation N o. [id number] [facility] CenterCBC W/AUTO DIFF WITH [id number] 07:49:27 Test Item Value Reference Range Interpretation Comments WHITE BLOOD CELL COUNT See_Comment [Aut omated message] (test code = 73449-2) The sy stem which generated this result transmitted ref erence range: 3.5 - 11 .0 K/UL. The refer ence range was not u sed to interpret this result as normal/abnor mal. RED BLOOD CELL COUNT See_Comment [Autom ated message] (test code = 32071-9) The sy stem which generated this result [...] HEMATOCRIT (test code = 40.0 % 34.0-45.0 95699-6) MEAN CORPUSCULAR VOLUME 82.0 fL 80.0-99.0 (test code = 37082-7) MEAN CORPUSCULAR 27.5 PG 25.0-33.0 HEMOGLOBIN (test code = 44938-5) MEAN CORPUSCULAR See_Comment [Automated message] HEMOGLOBIN CONC (test The sy stem which code = 57942-5) generated th is result transmitted ref erence range: 31 - 36 G/DL. The reference r charlotte was not used to interpret this result as normal/abnor mal. RED CELL DISTRIBUTION 14.3 % 11.5-15.0 WIDTH (test code = 90874-2) NEUTROPHILS % (test code 68.9 % 40.0-75.0 = 21490-5) LYMPHOCYTES % (test code 22.6 % 20.0-45.0 = 23834-7) MONOCYTES % (test code = 5.6 % 4.0-12.0 35891-2) EOSINOPHILS % (test code 2.1 % 0.0-7.0 = 34946-4) BASOPHILS % (test code = 0.4 % 0.0-2.0 57443-8) IMMATURE GRANULOCYTES 0.4 % 0.0-1.0 (test code = 67229-0) NUCLEATED RBC'S See_Comment Unless Othe rwise MYELOPEROX STAIN (test Indic ated, All code = 34879-2) Testing Perf ormed At: [facility], [address] [facility], [place] [address] Laborator y Director: Umair GarciaIA Number [id number] Cap Accreditation N o. [id number] [Autom ated message] The sy stem which generated this result transmit christopher reference range : 0.00 - 0.11 K/UL. Th e reference range was not used to int erpret this result as normal/abnormal . PLATELET COUNT (test See_Comment L [Autom ated message] code = 62038-7) The system w hich generated this result transmitted ref erence range: 130 - 40 0 K/UL. The refer ence range was not u sed to interpret this result as normal/abnor mal. NEUTROPHILS ABSOLUTE See_Comment [Autom ated message] COUNT (test code = The syste m which 95241-4) generated this result transmitted ref erence range: 1.50 - 7 .50 K/UL. The refer ence range was not u sed to interpret this result as normal/abnor mal. LYMPHOCYTES ABSOLUTE See_Comment [Autom ated message] COUNT (test code = The syste m which 72030-6) generated this result transmitted ref erence range: 1.00 - 4 .00 K/UL. The refer ence range was not u sed to interpret this result as normal/abnor mal. MONOCYTES ABSOLUTE COUNT See_Comment [A utomated message] (test code = 25923-2) The sy stem which generated this result transmitted ref erence range: 0.20 - 1 .00 K/UL. The refer ence range was not u sed to interpret this result as normal/abnor mal. BASOPHILS ABSOLUTE COUNT See_Comment [A utomated message] (test code = 14586-9) The sy stem which generated this result [...] this result as normal/abnor mal. Lab Interpretation (test Abnormal code = 38941-9) [facility] CenterTissue [id number] 10:44:00 Test Item Value Reference Range Interpretation Comments Case Report (test code Surgical Pathology = 104) Report Case: [id number] Authorizing Provider: Tom Mann MD Collected: 03/27/2021 11:53 AM Ordering Location: [facility] Endoscopy Received: 03/27/2021 02:10 PM Services Pathologist: Giorgi Rose MD Specimen: Appendix, azppendical lypoma biopsy DIAGNOSIS (test code = a5hpgIWbQNWtp5wpZNEvxG 3220) FuZzEwMzNcZnRuYmpcdWMx IHtccnRmMVxlcGljOTIwMl zmtpAlFSJuoGBgA9Khxaxr TDyoWK4rSC3meEjccPBjbW SbFNGvWjHrp7pch924dUEc n4jfVOHXoblohYv2vLxkY0 5rn7N2BttsH49pcEPtUHmi bGFpblxmczIwIFBBUlQgQS ARMGLYRcDNT2JCCEGCFLWR P6UhGKPZL6XOCFTDZ7LtH2 OSHBDNJZNTASiGTV3GMSsx xOGnUBFAFobWWsEUP5vMOk aZYA1PV47MQTRYNQERLIUK UEVSRklDSUFMIFNVQkVQSV RIRUxJQUwgTUFUVVJFIEFE TZSKN8FhWJbHJ5TXHfvuIN NyKgJYDHGDFpBcHy3JZF5U VZdVWhDQV7qeDHlwNIY3q0 xydGYxXHNzdGUxODAwMFxh bnNpXGRlZmxhbmcxMDMzXG X2drPuXFJwHCxoLRFhPBhs Ah9eiKCqbPqtYeUxSUMua2 vlbcZOcpcenOb4z8emAOSg GsA0pYVlHCpdJ2omreEzkU AoOJFePIp8rX89ENJzxX1u tIHfFByzpgYfVkP0SKhzVD AyXyN3MEZpmOBqQGCeL6wf ZWQwXGdyZWVuMFxibHVlMC M1eDkjl2E1oKUlcVAasBxw YcErMqNuVsSZe8UwYIq3vR dvI7LoPAAiSjU9jCSrBSPm GBrlDNWgCXKwmrU2aJ43XN yglyW7tKVuf5Bjh18er916 tL8elJNnQBR0NJYfOOJjjM TpRKAyQOJ5NHUyhCEoG3xk MFTcDZ5ogrmhZXcpTWvmTX NnqPS6YAFroPYgE7JrNYPs OPxsKHDrusw3ZaPaVb2qgT AkuQtxUBjnx9hwd5jmyHMl Ome6MGNaLrUpAiikFYoqz9 Frd8buOGJcpw5wTHB0aJVl qXizu3K0qYHnOLWnsKJlYD WjJB7yuVIoORWllH2toaku XHBnYnJkcmhlYWRccGdicm AqIg3skAczAHQ0CXzlS6bk yV4dKnQ6ZLjoB4zjjY3eTC y3TCioNKWxwSB7auK5WQEt qMPiK9YnzO5sLHPwJJ4rqz w9m0frVBJ1TJagCHIeBwB4 hyU3ZBGrmTHfZRQraGubWQ xtg044LYL5MgUeFMFzi3Kt C4MnsGgcM84xeColQ77lEU WzjUbghR2dsHdwsW0cDiWd DtLuOVdjxYhtBG2qTWYwX6 kaxFBaBLByKEOtH2neKnXw bI2lvLyjVTtnbtWzUIWrYf y3LYQrfLOlMWDaIet2MKRr DYZwF17rzefwKRF0bW5cy7 bzm3KiBWruJQM3JEOci21k HRdlarI5CFibWd9rQVTnFg q1E2wkGPN7sA== CPT Code(s) (test code h3ybtNBrJDFfjWC7NaCiXV = 3357) Asj9emg9QqlUHqtQQsDPxj uDSbwvXfqu78jJF7jE80SK 2tXCAxKeK5LOOeakD6Vcz5 SZDxCDWhoFZzI239r9evy8 rfkmPioMW0dZhkIBQoNHBe YWluXGZzMjAgODgzMDVccG FyfQ== CLINICAL HISTORY (test y8wpqVXpVMCdkYX8KkBbJP code = 3356) Yxj5udo5KgwZLgsQYwRFic hXGqgoBdxb03fGB0qD42AO 5rBXCgYvK9GGRhapU8Ztw2 PNSjUTXokWNbJ324d9lpl7 izrnKjhIT1qSoeGMXyDALo GHfqSLUfFkOyG0mcibjnq4 unQB5lSCfqyiQaPHhimYty BIWmtMSivkviq3FuXVUfhX 3rSDSicfLrDA2zUJViyWTp fQ== SPECIMEN SOURCE (test m1zhuGEuLRAkiID3JaLyCS code = 3377) Psh1coo7DftQRypXSgGMdk fQQpzhOxav62pVO1dQ22XS 0bWOZsJnV4HABesnE1Eqk9 BUHyQKTumZGdE037n3kff4 flhkXwtQE2fOuqOHViQGLv HPyhSEIrRfMeQOMuHG5xxR hccGFyfQ== GROSS DESCRIPTION (test l4mdvRNeYJOfvETkQiJeIP code = 3366) KfCOTqq5wxKYOjxIZlMpWq MzNcZnRuYmpcdWMxXGRlZm Lvq1caa543hRVsb5ggGOSs EmX0bHIyTWJmpIWxZ982y5 pkq8dcidSfgSF3FZQrDVJ2 CMziypVoggL4JOjacQLvIm E7BYcskkFzJHdlxqSsvqBg Wfo6TVXwO767QRX9kEbde0 bnEYL9LLUtXXTyIaHcXw0y fVKhD155QBTqXQJOXJYkqO v4CGKjnoNkdsRaaUDSt036 Q786r2mhRCXjadRcgIwGte enf3csE762IQFeuJCquaVr XeGaWTMafIPzyVJ9OCJaAI 2najbwPlNnEG2mucrfYwKg PK5cxpz3ZaEcHE9jeyykQw ZfNYyaMJSwxdbwAPKlv8Ck jtcrFS5sB3Pfj8V1pB5wjW PlSOBfzDEpVxNiEGSobq7s sPDkMXegv1MuQZZ1ixM6kZ DmvAXwKYQaGR99Nzmwx3Yp InxfYAG1MQPxudDxw5Cdr5 qfCkFecrUwD3pfB5BbZRIv ATHiQUEvCvRemiUyv7Soc6 TmiHEtbPi6w3xtBZZcGLWb jWqsl3zcRRE6UCPvT9R0eR Cqi5djHYhlUZIdxYP9uwfc ZBesEZQyezY2kohhDNegZO QsoYQ3czhbJQeyQUPfSkA8 xdpzVQcdGSDnQEF5YLuux0 08SYV1YRmcNrhpVYnpCGUm bmNvbnRccGduZGVjXHBsYW luXHBsYWluXGYwXGZzMjRc xNvbiNgymV0hDsXeOeSdEH igSK4jLOYhU8cepHPmWDHe GYPhA4atGpCndO7wrTcfQC lxsmPnRNQdEARkL4JcurLf RWppXHHrmk6bmAbpQScoNt IzZDGyg6h0aFX9uUYhmLJ8 mVHrkMmdSfHsJX8phKIfJG 9lAOnuJHizzaUbr6RqAF71 bWJlciBhbmQgImFwcGVuZG o1BqDzogDdN29qy0pmsYZs v5CuODTtTpKlM84gzHCrSN ZlOcGdwBjst3DoPTLkORka ZK27LOO5Rf9noMNxIUKqgx S3f7LyUFztSRNbMgojZEKt kYUdPXXnXUbiPHJvZ2UpfD 1mJW5KPafiOZYtIMGQT1Pg X27qdBOafE== MICROSCOPIC DESCRIPTION u2leuBAvPPResWO0VqSsVK (test code = 3371) Lza0ggc0UaxMLmcUDlMTdi iYOqsnNais11eKU1gO20VW 8dDAKkFoR3UTMuvqA2Jvl1 VIJhVBHjgWJnD769m2ika2 queyTrwDK5gIkeUIGfTSHz DYluWLEqPdStyKLmBg8keG VkXHBhcn0= Gross assessment was [facility] performed at (Formerly [facility], = 2777) Department of Pathology, [address] [place] [address], Technical component was [facility] performed at ([facility], = 2778) Department of Pathology, [address] [place] [address], Professional component [facility] was performed at ([facility], code = 2779) Department of Pathology, [address] [place] [address], [facility] CenterTissue [id number] 10:44:00 Test Item Value Reference Range Interpretation Comments Case Report (test code Surgical Pathology = 104) Report Case: [id number] Authorizing Provider: Tom Mann MD Collected: 03/27/2021 11:53 AM Ordering Location: [facility] Endoscopy Received: 03/27/2021 02:10 PM Services Pathologist: Giorgi Rose MD Specimen: Appendix, azppendical lypoma biopsy DIAGNOSIS (test code = w4bwlJBkBWGoq4srTNAcnP 3220) FuZzEwMzNcZnRuYmpcdWMx IHtccnRmMVxlcGljOTIwMl irypVrRTTfiOMiG7Mxaewc JIhfLD5vSZ6gkUgatMYtaO MySOMqQjRph7bln694iBDe h2pbHEOIrubfdDd0mHeoD6 4dv9W7XmhsK62gyWUdVVfs bGFpblxmczIwIFBBUlQgQS PQPGIXReVAQ2VHSWMQBOVC D4TuQLZAO4QMWVCAQ0FbN3 DIURPGRCQGMOzPCD8MYMkl lQSeMSWPLgvQQoIHI0lLRz mKNJ0NP71HVYWQYVAKLFOQ UEVSRklDSUFMIFNVQkVQSV RIRUxJQUwgTUFUVVJFIEFE IECPN5QvAVgEC9EMTdwwDN YgKgBVWSXFDvMxPx1REG1K GDsNJuCEI2ygDLcfAPB5u2 xydGYxXHNzdGUxODAwMFxh bnNpXGRlZmxhbmcxMDMzXG Q4btDxJGNdVVzvLQEcATwc Yy3xaXLwiFfvMzFoBNAxt8 seddFKmkalbNb9j9uzPETz RdU0xYZbXYznL9lcxeAlvT KrTCKcUJd7fD94NNIemG1x mWPcDOzuozPfMaV6NOhwYB UeTtJ3NUTwkXEqZMDuF7ff ZWQwXGdyZWVuMFxibHVlMC U3iGlcu6X2gSZqlCJbzOrb JuRwHhYeUjTWm3DbCSb6hQ twJ3MfPRThIsB8pYRqJVAq ZJjmQTWlKCIavrU9mR40UF ncfiB1pJWus4Uya26zp862 vT8wxCTrPHA6MRKxWRIqxA ZhBZSnLCA3FKAimWQrT1mc SIDxPS9ayowzFDpfYOajJX NkkLH7VASqpDGrZ3GuFUFj GTatLTOyyte4HhXgVb5acC QqgEyfSQcuu8dkj3bzyALq Haq8HNMmDxSxQyawDLqau3 Pqx7pxPOQirc8qLNN9hKWx rMgjo9B9nTLeYVPpuCEzEN WoPJ2yrWCbXXWuzU6ugmui XHBnYnJkcmhlYWRccGdicm HtUm3cvVxmISO6UUdzF3rq nB3nAsK9IKwqZ5lsrP8mVK a4QCmyADJchAJ5lrH7DOGh pTIwY4UyoC1uFBRvYC8wlu t1y2cwFRT8ODqdBBKqThI8 blX0FIMnxEZsRQCpxMoeIF ufn480CBR7TmUzKVNmf9Se U1OfiAtjJ68fuUsnE45wRJ UzhRrhwH6yxFbnuN3zUdTe DtFeFNobmZwfOU5vRUSoO8 lipLAuDAEkKNKlG1vtJnTr aL8rwRxpIKzhhyRfESTzHk d5FOFirONcRUUpOch4WDNa FGFbG00xxwjmUXZ2oV6ym8 ntx7YsHViwWDK7FXArc67c WOsqwwH8TPcsWt8cOCVqTk m6M7urDYA8rH== CPT Code(s) (test code [id number] = [id number]) Cer2mtm1McrBSvgQSiKVvs oQDfbmKcdo43nWQ9eB09GT 7uKHCzNxM8HXImhuO4Slc1 VBRuTKIcpSEhA273m5dro4 evrbWjdKX6xYhaBDSjUJJy YWluXGZzMjAgODgzMDVccG FyfQ== CLINICAL HISTORY (test o5edxBAzSLSudHB2SbMxKV code = 3356) Bwd9whi2KgoJQkrWFbCNrt fSKojgHpez98tKO6mT76FY 5jILPhSlD8KOFkkoA5Bcn4 BWJdMLKehYZjM592x6wvk4 pzpxOsfTP5kXhlVYSgYZVo PNzkWSHmMhLqK6ydslsac9 ylDJ7wWXwiwpLpGLpeyCuj BIThyWXscsvxu7PvXLObhO 9lYREscpRtLM7sZIOlcXYh fQ== SPECIMEN SOURCE (test p4iryQNcGCAepJL8TzWwVR code = 3377) Iav0ytt3KqcVSuvAJzQHvo bTPqsbMihc18pDW0cG56PQ 9gGNLxWqW5ASOjnhO6Ewl5 FEBpBBSkgEJzI293s5mjv5 dvvtKgaCV8rWbgHYRaFFYz XUcjJLSfZlOyDGJeRN1uuK hccGFyfQ== GROSS DESCRIPTION (test p8jdeRLwRCJayXAoLbJnRS code = 3366) NdZPDzv0evHMLzqPTjPqVp MzNcZnRuYmpcdWMxXGRlZm Sid1kyi367yBIuo1ynYVNx QeH0jTFvYAZseIDyJ137v3 jmx6atxnKpdKT6QSPwYBR0 TEhzxkPfohW2ETurxVNaSx E0SKoksrJiPDsykbQmzhKo Rvr2BJJmK706PWM6iGwzv9 gyYIS4NMAfPOWvXxLmEl8l eLYdE685YWIaJUTHFMMygK z6EKEbmnMyyiKreDIRb132 I288e3ykNPWdoePkqBsYep ulg7xvD841EVDbsWRzeqLk MkGvTCJyyNNkxFQ7KNFmVJ 1ctnvxTcKxXW0dyqnaItPz NH8jmud5AqNlVV0fhmwwLb VsKYanLEVcvzwgGKWrz6Za bjyjLQ3hL8Yvt0O4nW1zkW JnGMHqyLNnRpSmFRYwkd8d yNTrJJrkw6IpRSF2clL7cC XdpOBoIMZxGO38Etnhc8Lv UcmlTGF3SJCmrqCab5Mjl0 plXxAtpeXqN7ucR0ZyRLUi RJRgNTWpHzEnhyPfw2Qzy8 OxpQYibSb0x4rqSOHnLELt bPcql8ooKXP4HRTrS5H1pQ Vmd2lzBVhuZSVjyER2obad LJucRRTjrtA4chuyRBxtHF IjqIN1emqzVRlpHCVfZiB7 kkhgEUfoIIUqGLV3TRpvw9 47IBW3PNyyVtkhQQitAKIt bmNvbnRccGduZGVjXHBsYW luXHBsYWluXGYwXGZzMjRc oHgvvDdzyC3eKmWoFkDeAN snRS1aZFVkE0zafWMyAACs VUWfJ7phEeRpdS3cbVmmXU pmqdUeRQWyYNHpO5OazuKe SIygRIIxqr4ztBxrLGzaUg PxLPGxq5z6hLS3qMQbaDO0 qRLcrFsaEoBvAG2tbFGfLB 9eHQhaBBxnzsYqh3RiJE85 bWJlciBhbmQgImFwcGVuZG n2DoDbntXgM56xa6bikKLk i8KsFLGzFzNaS84ohKQxWV GgUaOboWuuo1HdVYQtZStv UH91YDL9Ti9fcODzFSAcbt I0g9UaVHmfHMSsRixyTYRd hNJdHPCmATubKCEjQ1XthE 2jJL2XBltdQFYmBJLNB4Op M70znSSmgP== MICROSCOPIC DESCRIPTION x2upnCFaXURkpUY9HyScZN (test code = 3371) Xsk2rvh5PkrJEomUHvGKbn zBFutwHdrm38rFR1kG72RJ 9rFNLdGwW5DOVeviJ1Qqu6 RPBxBMYzoJIgO429o5dyr1 yoiuZyxBQ8xBfsASZsSPLe UDgaEBSqFmDvuBJsEa2fdS VkXHBhcn0= Gross assessment was [facility] performed at (Formerly [facility], = 3047) Department of Pathology, [address] [place], [place] [id number], Technical component was [facility] performed at ([facility], = 4782) Department of Pathology, [address] [place] [address], Professional component [facility] was performed at ([facility], code = 2779) Department of Pathology, [address] [place] [address], [facility] [id number] 10:44:00 Test Item Value Reference Range Interpretation Comments Case Report (test code Surgical Pathology = 104) Report Case: [id number] Authorizing Provider: Tom Mann MD Collected: 03/27/2021 11:53 AM Ordering Location: [facility] Endoscopy Received: 03/27/2021 02:10 PM Services Pathologist: Giorgi Rose MD Specimen: Appendix, azppendical lypoma biopsy DIAGNOSIS (test code = i6chmULeOVXoe3htEZQbnW 3220) FuZzEwMzNcZnRuYmpcdWMx IHtccnRmMVxlcGljOTIwMl srvxNkKMFucKSgD3Ycclzg FJctOC7qYP1crAsuhADrxO FtOGCbSdSmi9jrh672zJIv s4ycBFGJaqzzvAf9sHzvI5 2mx9I2UhzoG03ywSSfGKtn bGFpblxmczIwIFBBUlQgQS IEJXRHEjKBD7CJGIQQCRUE S6BnWQWBM5AUMMCLZ5HbO0 WGTZDEZJAXMVsCDO5CSHzq rBKpFJYYXmkMRuHBP8qTHh lYFJ6BD64JIERGXBEQKPDQ UEVSRklDSUFMIFNVQkVQSV RIRUxJQUwgTUFUVVJFIEFE YYJLW1IqZFjXC4CJRzpuGP YlUuOUCABVYwNyCf8BJN6F JZsHCjFES4qlZBmjRIH8y4 xydGYxXHNzdGUxODAwMFxh bnNpXGRlZmxhbmcxMDMzXG X3suBsWJPqUYfvOIWbRNdx Pj4dwSWctQwbLtRrAXLdv0 nzhsRDsdammSc4b0tqSDPo KjA4jRScSLdtB4prxhBvgX RmAHJtNWj8wR51SIBfgI1w eISzUFcfxrJwMjK0EBwuQS JvZlN0ZVEfwQQhAAHfP8nv ZWQwXGdyZWVuMFxibHVlMC Y9tJsff1O8uQJcdOQibZfh QpRmCjCuWhQQe7EgXWr8zP zlF1GiTPPnMpE2qUXiNRGf PFbwGPBdQVJnnaV5wJ50HU mvpuE4bNRwj2Rgc97kv566 uO2kfUDbBUX0QTCaPPXbcP RlMKRnNLH4FBOrmQKxU7qy SIChDY0latqaEQehDMlkRZ WbbCX0RJXfmDAgZ0BqJIPi BQnkAFFgrbl6EfSxIf7dxP CfdDiiGDidx8kws3bysEJw Jlz6SWTcGaFeJcfyTRxpc8 Knd2jgIWPilo0aRDK1gKFf qMhwy2A9lUIjKBSxkHVtQT TeAA4qeOSsEFIchT9zdfca XHBnYnJkcmhlYWRccGdicm RoNf7gvQotAWK0LDcfW1dw oM5aRyH1TVplY7fhcT1lUW k5VCrhJXGmjQU5yoH5NNBc mGRvM9YdpY3bSWLdRF4qjm v8q3kpUDR7BVdyVRDgRtE8 jgK9ZEJilTTbFTTniBqjLB cdd230WHO7IdQvGQLfb2Vn S8UjkCzhE32owNmeV35vYI GkjJcccH2hmFfuzK9kDaLx BqUnHLzrhTmdWH8rYAAiQ8 xjqWPrOJQgOMCsG4hhMpBl kO9vpIbiOMhkkqCmAIKuXd t2XPUrxELlHJNlLzf3MWHw RQFmG54zmfqeNWO9wU7fn7 khm8GpTKaiZGU0FPKic21n AAqdrfQ0ZKkoCg8sQPEuPa e8F4qvNXB6fU== CPT Code(s) (test code j4dgjWWkIKJeuGE3MfKzPK = 3357) Kyh1wwy1QcuRHslNGcEAvh hUBiarXiib75xOF7sQ40GW 7fYKYuGdN2KGMhrvD1Lof7 FBGpXOUhiTZyM062h8mlu6 hyrrReqFO7yTupMQRhFJKs YWluXGZzMjAgODgzMDVccG FyfQ== CLINICAL HISTORY (test g5uocIOzPPAzrDE7MtKnYZ code = 3356) Smy1pzi2AgeJYyoADdFEha fAXlfmQhus31hJW6sM85VG 3vAYRwEpB8NGRhdrD1Aaz7 VKWcTTNoeDIsE432b8mlz8 cjmqYvhAL7sTrsNOKkZCZa GMnoNTYvSwAgK6kimlwco3 inST1qSAbtwbXzXVizhErg ZHDkjJTdbewzg3XwIOXibL 0lBFGbqeGaSN2cKRNbaAIo fQ== SPECIMEN SOURCE (test a3xolEKrZXUavQA7WjBjZE code = 3377) Kgs0zvc2YnqLZbfDCfCLxl uXZyofEomu27oMM9mP36VG 4vLXJdZbB5HVOtsbK6Rif0 MNTcYJXjaLJlB567z9egy9 xculQzhZV1yZciREQtULIk NPbiKLGuNqLeBWNmSK7qfA hccGFyfQ== GROSS DESCRIPTION (test x6kufPFzGUDjfRSzShRhBI code = 3366) PeFWZxq5yfFYBwnOAuIrBj MzNcZnRuYmpcdWMxXGRlZm Kep2gtm295nRPxk0dgNJDs EwH8aHAwVQMprHMkI422y8 ekw8tbwwQouOB9QPBvGQU8 ADhlgiIjsbF7FLvceULrPg T0AEtwsoFsBFyfaeVbfnXa Zed9RKPgX250SNE9xWeag0 nsXTD3SMQfBCNsHxFwTt0a eQQdR936EGTgTSCPRTPzfX t3WXEjrnMmokAbySCHl157 Y608n8mwTBCcbnIepDbDql adm6eoF072GTAgvHQojpNr AqUmWYIgnKIihAT5BFQdTI 3uftjbNxPkSA8llsfdMmWa AO4bkyk6LgXbYF6schxaSi WsFNlrFJQnlsfyOFWpz1Zx jdbwDW1zH3Syz6D5fB7szK McNDQfeYIsJbIqKHGzdi4j tOKaCKloz2ScAUO1kzC6dP AlrTKhIKKnDU31Odrhe9St RcghTZG3PGAayaFbw5Mnn7 qcDuAdukAnV3weB1UfJZRe TWNzAGZaAbEgaqRpc3Psx4 NskEJtxDu0f6xkYIOoUJPe sClmv0ecYYW6ZBUlH4C1zW Nls1orTHotQMGcbWS7ioyz XBcgLQXpznX5lmqoNBfdOK TmrHN3ozgwSNjyTTCkOnY9 rkqrLLtoLNNyUCB1TXluh3 03VJH7AHerTedhIQwwUFFu bmNvbnRccGduZGVjXHBsYW luXHBsYWluXGYwXGZzMjRc aCwwzIgpcT1tXrDeQkZtPI tmRT0lYBLsY2egiHLvGLGx JMVlR9yeImEmuO9yfNfsGJ xcooMdRGJnGMTfC1VirmNv ZUjxVNKcrx9bzTdmPHoaUl McQHCdx5w2gFL2wGMldER3 eRZljHvcJfVeGY2nxKPyDY 5gLTsqMYssluEbf9HgWO68 bWJlciBhbmQgImFwcGVuZG z4GhFxasUzN07gy3mjlLGu h9KzVRHuSwWtE32egYEkID ZdYsHmiKhbn7DvEBLmVTxr AT38PPV7Cr6cqBPmOJDaan B9l5JjJFtbWXPlEjpwXDZd dKTmHGJmALmrPXRdY5NigM 1yHA8NLjodPKItVYANO9Ig V67saJMyvB== MICROSCOPIC DESCRIPTION h5yraBVxUGXxpXZ7BcKjAR (test code = 3371) Yhd0fqq6PxeGWkrYCaUKng gDWdhcBcln39zBY5gI13CD 5oCAUuBsF7RKZubuH0Zfg0 JOTvNJDkeDSeW217f8men4 knjfEwuBG5kIcxYDSuUZMr YLgkLLRuBfRadVLxTw2qcL VkXHBhcn0= Gross assessment was [facility] performed at (Formerly [facility], = 2777) Department of Pathology, [address] [place] [address], Technical component was [facility] performed at ([facility], = 2778) Department of Pathology, [address] [place] [address], Professional component [facility] was performed at ([facility], code = 2779) Department of Pathology, [address] [place] [address], [facility] Center[facility] [id number] 10:44:00 Test Item Value Reference Range Interpretation Comments Case Report (test code Surgical Pathology = 104) Report Case: [id number] Authorizing Provider: Tom Mann MD Collected: 03/27/2021 11:53 AM Ordering Location: [facility] Endoscopy Received: 03/27/2021 02:10 PM Services Pathologist: Giorgi Rose MD Specimen: Appendix, azppendical lypoma biopsy DIAGNOSIS (test code = p1yglCWsQPLpu0okEGXnwL 3220) FuZzEwMzNcZnRuYmpcdWMx IHtccnRmMVxlcGljOTIwMl mqgpSwGFDgvCUaD1Bfqpoi PAokDF8vAL8tkZrcgAKokW PlXGQqQnGrh0vey176oSBj k7kaENVYigiifHn4rNtnT7 1fh8J8MpthL57iiVEjAUma bGFpblxmczIwIFBBUlQgQS TXGFVGOpTHT4BTUQIKHLFI L5LrPOFIP5PLDNNUB9DwW7 BWPWQYFREOJBcQQK1DEHmd qGExCDSIKfgLDqUVX0dQDe mTUL4VE05GSWGIJWJNMXQY UEVSRklDSUFMIFNVQkVQSV RIRUxJQUwgTUFUVVJFIEFE DQKKP4ZsLEvDT4LPQeklQA FvRdPWKKXDQaWcQc1WEY9G ZVbOWzFIG1soSYgxQLA3i1 xydGYxXHNzdGUxODAwMFxh bnNpXGRlZmxhbmcxMDMzXG T4ijDjCWBuVEmkEBPcYCiq Ir9mxNWrcEomXgMkVELrh7 lwdjQUncuuaKb4e4miGENw HzW9iFXcXNtxR5urhxMadI ScHFVyMEb7qQ32SYUjwS6u wQMlSBqoqdBxBlD3GQynUJ OrVtC1RMZxnCDnSLScW5ba ZWQwXGdyZWVuMFxibHVlMC P1xQgff0V4zCNiuWJmwFbj CoAySuMyMoGCq9QsSIp5mF gsR6QaSAXhXjR8kHCuCUFp JIxrAJUsANKezdN9wA20FE jgbbV1hWZzu6Mwh40sp313 kR5ouITqVFB3HLRwCLNxaQ BjJBFwATE5WLHbvPXxS5hc BOGsZN1vdvllSObeGZpnHM UapVC1ZWClmXKzH1IxYWPa IOehAGJjbob9RyLjLq5fkI XykKrdYBoae1akh4cabMSg Kvk8UKFbMfWoMsjsFIynq0 Idl7qiHYJepg6jOBM0eRKf fBjld0J4kEVbANWgkWDkAO MuAW7jvHQhJPYguA9nbtuj XHBnYnJkcmhlYWRccGdicm ZpEt7ezUpyYJA2PWpaA3iv yR9hAqS6RQblL9jexV7bWZ b3JYqgVQLzuFY9tjK8VPIs iVLpU3LyiU7cVAZmSJ4kyi y2u8kqXHP7IOjvWILwZkJ8 dmE5INYwqHFsEIXxxKzhXL rrh318JCP8JpOhEFTbg3Fl R7MujMzoU16fnQqrC33dAV MjlXqbwA4vqRxhnR8iBhUd TyWgCXlyoZsbFY9dDHRtU2 uuuZHcRMXcCQWdU0zkBtAx wY0mhBvpMPwfxkSoZCDwEs u6YJPkgKCwCTSiPdx2BUDk LVEhU33jhuwqAFR4fD9od7 axm4SxWCmfKVU1IBScx25z USylsrT6CQwlDb9bZZBoCa z2L7tyGYO1qY== CPT Code(s) (test code e5ouzPXxVGUmhTK9KcEvTP = 3357) Hrw1mzm3EtbIQiaLQeSJvi sTXuhoFygs64fXG7lS77CP 9kAVPiUhM6NGQzldH5Xrq1 WOHlFPNlzHSgK680b8whz8 kxuqDbeUK2vMneHWYyMHWz YWluXGZzMjAgODgzMDVccG FyfQ== CLINICAL HISTORY (test r0cwpODfXVXltSD4PwHoBG code = 3356) Zfh7wzy6QbzUTspJAlSCsy nLNwekKowl97eSO4vM92WL 0xPCBoCrL2TWDiriR7Epx7 ILEkVRGbsUFeY515k6sjj7 atfrDgmGB2yIhrWOVeOMZf VIxmFDNrNzArJ6wcafvph1 frIF7gSMsyirAzSYatmOxu JCJacFXuoikdi5KyRUHvpR 3jBQZuikHfFE9uTMRemVCn fQ== SPECIMEN SOURCE (test g0iggNVsPZLsrDM7OzNrUY code = 3377) Tqw9own9LsaTQumWGwKNxj zVWezcHkcb92zLE7fC31PQ 8wNFDmQuA7JXIflgF7Oiv3 FNLrELCckCCdA029q9kuy5 gkacGdyLK5xAsxFVJyPCHf KOivFZSiOzNaABSaXN7rfN hccGFyfQ== GROSS DESCRIPTION (test d8krlTFeXWSmqGRxDdUsBD code = 3366) BsOUQbr4gzFNKatQPiVoRv MzNcZnRuYmpcdWMxXGRlZm Rmy9crr407aXNsx7zsYYXy DnF5jQGxMDEleTAjL276g7 wli7wwswTmfER3TUSnIJF8 RVzsuuUemdV8BWkeuMSmPk P6BLwuxtIpXPmadqByqeSd Ust1EOQsV818WNX4tBbkf9 lbQUD1IFVoRWCaJdIjMp2l nSKnV049GGPlUHFVEGMaxM f1DLDuxoMbpbCcaGFQs063 P067u7pcHGLfqdFbbJiIeg cni7rrE950ZKTlvWLvitJr OxTtOCYlnJZteYP5JACgQF 5jcfycMiWxRX3ohudrAiYo BL6syeg9SlPdVQ3ezbxkUz DfSBinVTTuixzuWIJwu0Zd tfapBV5oO2Bqb0T8vG5bfD AlTWWgbPKbNcKtNCQoil7d dNEcPFivd0CjMRB4gtV5jD TytONlVNYgXB83Rgqpq3Ok KkorYUW4VKFsrvMxg6Bpt4 gsLeZhrjPfM1hbK2HyJUUr NTZtMGXtMlClsyJqc5Ybx0 BwnDHkjNp7l2hmDPNhXQGx jZwgh2qaEJU4FNPkH1E0yC Iyk9gvXWssQXZibSE3gtcw XRieOXGjpxM3pqrbKUabOV OptAM3nxeaMPigACGzNzY5 cftfQVzjINIuJXJ2TTzsy6 19RXD5UEndAacuWXviDVYm bmNvbnRccGduZGVjXHBsYW luXHBsYWluXGYwXGZzMjRc ePegqLghtT2uCbTwJwCkIW stZH4kBYKdC8djuOEwHLTb AOKiN1flJrPuiM9adBzbGP rkiyObCZNtBGXlY4SptgWk GCesWKEghm0kxGjiKTyfAy EnMULzg1d0dPC8vQEasLR9 jEFomTteXnWiJL7adEGeEX 1yNVqwGVqjojNdq7HqPD71 bWJlciBhbmQgImFwcGVuZG m8QcGhwuDlL69nz4aczCGo g5QpIARcMbDnB05byNBuFM RvRkUyfFqax0PjYGKdXTte VS52ASC4Uz1vvWScIPIzyi A9r8SxULvqDWYoMpjjOAZw eDLwUGOzWQrdMIUnT2PydA 8lFZ5TNrxeLGBtBUHNM9Cj Z07vxZZusN== MICROSCOPIC DESCRIPTION m4pzlXViGRJxgQN6PqIsVV (test code = 3371) Fxd8acz5NdhSZsyDWqMVpm qXJxzbKzhj68iOV9qB92BJ 9yVNXtLhF6ZSXhrkV8Pjf8 CCHzZLMlgLZpN227i6vrl4 kantCseRC8wSzjHXCsBWCm EWbePRYyTmQvzOUqLa6ndP VkXHBhcn0= Gross assessment was [facility] performed at (test code [facility], = 2777) Department of Pathology, [address] [place] [address], Technical component was [facility] performed at (test [facility], = 2778) Department of Pathology, [address] [place] [address], Professional component 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 Signing Pathologist Direct Phone Line: [phone] signed by Giorgi Rose MD on 03/28/2021 at 10:44 [id number] of liver with ascites, screening for cancerAppendixA. Received in formalin labeled with the patient's name, medical record number and "appendix" and consists of a 0.2 cm newton soft tissue fragment submitted in toto in A1.LISSETTE White, DOROTA (ASCP)cmperformedBaylBarlow Respiratory Hospital, Department of Pathology, [address] [place] [address], [facility], Department of Pathology, [address] [place] [address], [facility], Department of Pathology, [address] [place] [address], BKAF-GLUCOSE [id number] 10:23:00 Test Item Value Reference Range Interpretation Comments POC-GLUCOSE METER 132 mg/dL 70-110 H : TESTED A T [place] [address] (BEAKER) (test code [facility], = 1538) [address]: Medical Psychotherapist/Techni melissa ID = [id number] for SHANEL CAMERON POCT HEMOGLOBIN [id number] 19:57:00 Test Item Value Reference Range Interpretation Comments HEMOGLOBIN A1C (test code = 4548-4) 7.0 % 4.0-5.6 A Lab Interpretation (test code = Abnormal 30111-6) [facility]CT [facility] [id number] 02:41:32Impression:No acute abnormalities. CHEST CT Indication: L breast pain sudden onset Technique: Axial CT images of the chest were obtained with contrast.Coronal and sagittal reformats were performed. Dose reduction techniqueswere used (ALARA). Comparison: ?None. RL: 105 ? [place] [address]83 Ordering Clinician: KATEY MOSQUEDA Technical Quality: Adequate Findings:Lines: None. Nodes: Subcentimeter mediastinal lymph nodes (short axis) are below sizecriteria. Heart: Coronary artery calcifications. Vessels: No aortic aneurysm. Upper Abdomen: Cholecystectomy clips. Pulmonary: No consolidation or effusion. Bones: No acute fracture. Additional Findings: IVC filter. [facility], Radiant Results Inft User - 03/23/2021 9:42 PM CDT CHEST CTIndication: L breast pain sudden onset Technique: Axial CT images ofthe chest were obtained with contrast.Coronal and sagittal reformats were performed. Dose reduction t echniqueswere used (ALARA).Comparison: None.RL: 105 AFC 48411Bcojcqub Clinician: KATEY MOSQUEDATechnical Quality: AdequateFindings:Lines: None.Nodes: Subcentimeter mediastinal lymph nodes (short axis) are below sizecriteria. Heart: Coronary artery calcifications. Vessels: No aortic aneurysm.Upper Abdomen: Cholecystectomy clips.Pulmonary: No consolidation or effusion.Bones: No acute fracture.Additional Findings: IVC filter.IMPRESSIONImpression:No acute abnormalities. [facility] (NA, K, CL, CO2, GLUCOSE, BUN, CREATININE, CA)2021-03-24 02:16:41 Test Item Value Reference Range Interpretation Comments NA (test code = 140 mmol/L 135-145 3549299501) K (test code = 3.8 mmol/L 3.5-5.0 1812589527) CL (test code = 104 mmol/L 98-108 3175613165) CO2 TOTAL (test code = 28 mmol/L 23-31 2469072507) AGAP (test code = 2-16 5603646673) BUN (test code = 16 mg/dL 7-23 4372109680) GLUCOSE (test code = 137 mg/dL 70-110 H 3539946311) CREATININE (test code = 0.59 mg/dL 0.50-1.04 8918141239) CALCIUM (test code = 9.2 mg/dL 8.6-10.6 2512706476) eGFR (test code = mL/min/1.73m2 5311116067) JENNIFER (test code = JENNIFER) Association of [...] tests). Lab Interpretation Abnormal (test code = 88198-6) [facility] WITH [id number] 02:03:42 Test Item Value Reference Range Interpretation Comments WBC (test code = See_Comment [Automated 7390-2) message] The sy stem which generated this [...] RDW-SD (test code = 45.1 fL 39.0-49.9 37363-5) RDW-CV (test code = 14.5 % 12.0-15.5 788-0) PLT (test code = See_Comment L [Automated 777-3) message] The sy stem which generated this result transmitted reference range : 166 - 358 10*3/ ?L. The reference r charlotte was not used to interpret this result as normal/abnormal . MPV (test code = 12.2 fL 9.5-12.9 25697-6) NRBC/100 WBC (test See_Comment [Automat ed code = [id number]) message] The system which generated this result transmitted reference range : 0.0 - 10.0 /100 WBCs. The refer ence range was not u sed to interpret th is result as normal/abnormal . NRBC x10^3 (test code <0.01 See_Comment [Auto mated = [id number]) message] The s ystem which generated this result transmitted reference range : 10*3/?L. The reference range was not used to interpret this result as normal/abnormal . GRAN MAT (NEUT) % 70.5 % (test code = 770-8) IMM GRAN % (test code 0.40 % = [id number]) LYMPH % (test code = 20.3 % 736-9) MONO % (test code = 6.6 % 5905-5) EOS % (test code = 1.4 % 713-8) BASO % (test code = 0.8 % 706-2) GRAN MAT x10^3(ANC) 5.22 10*3/uL 1.88-7.09 (test code = 3966970268) IMM GRAN x10^3 (test 0.03 10*3/uL 0.00-0.06 code = 0230809596) LYMPH x10^3 (test code 1.50 10*3/uL 1.32-3.29 = 731-0) MONO x10^3 (test code 0.49 10*3/uL 0.33-0.92 = 742-7) EOS x10^3 (test code = 0.10 10*3/uL 0.03-0.39 711-2) BASO x10^3 (test code 0.06 10*3/uL 0.01-0.07 = 704-7) Lab Interpretation Abnormal (test code = 80626-4) [facility] [id number] 15:01:00 Referring: DOROTA Alvares-CCirrhosis, screen for HCCReason for Exam:->[facility]rhosis [facility] : 1965 Sex: FFINAL REPORT [...] portal vein is patent and measures 1.4 cmin diameter. BILIARY:Gallbladder: Surgically absentCommon bile duct measures 0.7 cm, within normal limits. No intrahepatic biliary ductal dilatation. PANCREAS: Incompletely visualized due to overlying bowel gas. The partially visualized pancreatic body is normal. SPLEEN: The spleen is enlarged at 16.5cm in length. PERITONEUM: No free fluid. KIDNEYS: Normal in size bilaterally. No hydronephrosis. No sonographically evident solid mass lesion. IMPRESSION: 1.Cirrhosis without a focal hepatic lesion. 2.Sequelae of portal hypertension include a mildly dilated main portal vein and moderate splenomegaly. Signed: Shantanu Perea Verified Date/Time: 02/21/2021 15:01:00 US abdomen [id number] 15:01:00Interface, External Ris In - 02/21/2021 3:03 [...] and moderate splenomegaly. Signed: Shantanu Perea Verified Date/Time:02/21/2021 15:01:00 [facility] [id number] 15:01:00Interface, External Ris In - 02/21/2021 3:03 PM CDTFINAL REPORT TECHNIQUE: Grayscale ultrasound of the abdomen. INDICATION: Cirrhosis. COMPARISON: Ultrasound from 11/20/2019. FINDINGS: MIDLINE VASCULATURE: The visualized inferior vena cava is unremarkable. The maximum visualized aortic diameter is 2.4 cm. LIVER: The liver is enlarged at 20.9 cm in right hepatic lobe length with anodular contour. The increased liver echogenicity is likely due to fatty infiltration. No focal lesio ns. The main portal vein is patent and measures 1.4 cm in diameter. BILIARY:Gallbladder: Surgically absentCommon bile duct measures 0.7 cm, within normal limits. No intrahepatic biliary ductal dilatation. PANCREAS: Incompletely visualized due to overlying bowel gas. The partially visualized pancreaticbody is normal. SPLEEN: The spleen is enlarged at 16.5 cm in length. PERITONEUM: No free fluid. KIDNEYS: Normal in size bilaterally. No hydronephrosis. No sonographically evident solid mass lesion. IMPRESSION: 1.Cirrhosis without a focal hepatic lesion. 2.Sequelae of portal hypertension include a mildly dilated main portal vein and moderate splenomegaly. Signed: Shantanu Perea MDReport Verified Date/Time: 02/21/2021 15:01:00 [facility] [id number] 11:47:00 Test Item Value Reference Range Interpretation Comments POC-GLUCOSE METER 174 mg/dL 70-110 H : TESTED A T [facility] 6720 (BEAKER) (test code = SR[place]ANI [place], 1538) [address]: Medical Psychotherapist/Techni melissa ID = [id number] for MIGUEL JIMÉNEZ NERI PROTHROMBIN TIME/[id number] 10:03:00 Test Item Value Reference Range Interpretation Comments PROTIME (BEAKER) 16.1 seconds 11.9-14.2 H (test code = 759) INR (BEAKER) (test 1.33 See_Comment [Automat ed message] code = 370) The system [employer] generated this result transmitted ref erence range: <=5.90. The reference range was not used to int erpret this result as normal/abnormal . Effective 03/08/2019: PT Reference Range ChangeNew: 11.9-14.2 Previous: 11.7- 14.7RECOMMENDED COUMADIN/WARFARIN INR THERAPY RANGESSTANDARD DOSE: 2.0-3.0 Includes: PROPHYLAXIS for venous thrombosis, systemic embolization; TREATMENT for venous thrombosis and/or pulmonary embolus.HIGH RISK: Target INR is 2.5-3.5 for patients wiht mechanical heart valves.POCT-GLUCOSE [id number] 09:07:00 Test Item Value Reference Range Interpretation Comments POC-GLUCOSE METER 157 mg/dL 70-110 H : TESTED A T [facility] 67[address] (SERGIO) (test code = SRAVANI [place]SE [place], 1538) [address]: Medical Psychotherapist/Techni melissa ID = [id number] for NERI ZEPEDA [id number] 07:53:00 Test Item Value Reference Range Interpretation Comments Ferritin (test code = 1237.70 ng/mL 5-275 H 2276-4) JENNIFER (test code = JENNIFER) Medical Psychotherapist ID - EDASI Lab Interpretation (test Abnormal code = 40000-9) [facility] 07:53:00 Test Item Value Reference Range Interpretation Comments Ferritin (test code = 1237.70 ng/mL 5-275 H 2276-4) JENNIFER (test code = JENNIFER) Medical Psychotherapist ID - EDASI Lab Interpretation (test Abnormal code = 58289-0) [facility] 07:53:00 Test Item Value Reference Range Interpretation Comments Ferritin (test code = 1237.70 ng/mL 5.00-275.00 H 2276-4) JENNIFER (test code = JENNIFER) Medical Psychotherapist ID - EDASI Lab Interpretation (test Abnormal code = 41490-9) [facility] 07:53:00 Test Item Value Reference Range Interpretation Comments Ferritin (test code = 1237.70 ng/mL 5.00-275.00 H 2276-4) JENNIFER (test code = JENNIFER) Medical Psychotherapist ID - EDASI Lab Interpretation (test Abnormal code = 34561-9) [facility]2021-[facility] 07:53:00 Test Item Value Reference Range Interpretation Comments FERRITIN (BEAKER) (test code = 1237.70 ng/mL 5.00-275.00 H 361) Medical Psychotherapist ID - EDASIComprehensive metabolic [id number] 06:52:00 Test Item Value Reference Range Interpretation Comments Protein, Total (test 8.2 See_Comment [Autom ated code = 2885-2) message] The system which generated this result transmit christopher reference range : 6.0 - 8.3 gm/dL . The reference range was not u sed to interpret th is result as normal/abnormal . Albumin (test code = 3.8 g/dL 3.5-5 54257-0) Alkaline Phosphatase 72 U/L 40-150 (test code [...] Calcium (test code = 9.1 mg/dL 8.4-10.2 05549-5) AST (test code = 17 U/L 5-34 1920-8) ALT (test code = 16 U/L 6-55 1742-6) EGFR (test code = 78 mL/min/1.73 [place] [address]-6) NOT ACCURATE CREATININE CLEARANCE IN PREDICTING GLOMERULAR FILTRATION RATE . ESTIMATED GFR I S NOT APPLICABLE FOR DIALYSIS PATIEN TSFrannie JENNIFER (test code = JENNIFER) Medical Psychotherapist ID - EDASI Lab Interpretation Abnormal (test code = 41206-7) [facility] CenterLactate dehydrogenase (LDH)2021-01-17 06:52:00 Test Item Value Reference Range Interpretation Comments LDH (test code = 2532-0) 196 U/L 125-220 JENNIFER (test code = JENNIFER) Medical Psychotherapist ID - EDASI Lab Interpretation (test Normal code = 63749-2) [facility] CenterC-Reactive [id number] 06:52:00 Test Item Value Reference Range Interpretation Comments CRP (test code = 676) 0.10 mg/dL 0-0.5 JENNIFER (test code = JENNIFER) Medical Psychotherapist ID - EDASI Lab Interpretation (test Normal code = 94145-4) [facility] CenterComprehensive metabolic [id number] 06:52:00 Test Item Value Reference Range Interpretation Comments Protein, Total (test 8.2 See_Comment [Autom ated code = 2885-2) message] The system which generated this result transmit christopher reference range : 6.0 - 8.3 gm/dL . The reference range was not u sed to interpret th is result as normal/abnormal . Albumin (test code = 3.8 g/dL 3.5-5 59984-4) Alkaline Phosphatase 72 U/L 40-150 (test code [...] Calcium (test code = 9.1 mg/dL 8.4-10.2 83407-4) AST (test code = 17 U/L 5-34 1920-8) ALT (test code = 16 U/L 6-55 1742-6) EGFR (test code = 78 mL/min/1.73 [place] [address]-2) NOT ACCURATE CREATININE CLEARANCE IN PREDICTING GLOMERULAR FILTRATION RATE . ESTIMATED GFR I S NOT APPLICABLE FOR DIALYSIS PATIEN TS. JENNIFER (test code = JENNIFER) Medical Psychotherapist ID - EDASI Lab Interpretation Abnormal (test code = 95056-5) [facility] 06:52:00 Test Item Value Reference Range Interpretation Comments LDH (test code = 2532-0) 196 U/L 125-220 JENNIFER (test code = JENNIFER) Medical Psychotherapist ID - EDASI Lab Interpretation (test Normal code = 21114-9) [facility] [id number] 06:52:00 Test Item Value Reference Range Interpretation Comments CRP (test code = 676) 0.10 mg/dL 0-0.5 JENNIFER (test code = JENNIFER) Medical Psychotherapist ID - [facility] Lab Interpretation (test Normal code = 73625-9) [facility]Com[facility] [id number] 06:52:00 Test Item Value Reference Range Interpretation Comments Protein, Total (test 8.2 See_Comment [Autom ated code = 2885-2) message] The system which generated this result transmit christopher reference range : 6.0 - 8.3 gm/dL . The reference range was not u sed to interpret th is result as normal/abnormal . Albumin (test code = 3.8 g/dL 3.5-5.0 42598-7) Alkaline Phosphatase 72 U/L 40-150 (test code [...] Calcium (test code = 9.1 mg/dL 8.4-10.2 89234-2) AST (test code = 17 U/L 5-34 1920-8) ALT (test code = 16 U/L 6-55 1742-6) EGFR (test code = 78 mL/min/1.73 [place] [address]-7) NOT ACCURATE CREATININE CLEARANCE IN PREDICTING GLOMERULAR FILTRATION RATE . ESTIMATED GFR I S NOT APPLICABLE FOR DIALYSIS PATIEN SHADIA. JENNIFER (test code = JENNIFER) Medical Psychotherapist ID - EDASI Lab Interpretation Abnormal (test code = 30505-0) [facility]2021-01-17 06:52:00 Test Item Value Reference Range Interpretation Comments LDH (test code = 2532-0) 196 U/L 125-220 JENNIFER (test code = JENNIFER) Medical Psychotherapist ID - EDASI Lab Interpretation (test Normal code = 05966-6) [facility] [id number] 06:52:00 Test Item Value Reference Range Interpretation Comments CRP (test code = 676) 0.10 mg/dL 0.00-0.50 JENNIFER (test code = JENNIFER) Medical Psychotherapist ID - EDASI Lab Interpretation (test Normal code = 24478-0) [facility] [id number] 06:52:00 Test Item Value Reference Range Interpretation Comments Protein, Total (test 8.2 See_Comment [Autom ated code = 2885-2) message] The system which generated this result transmit christopher reference range : 6.0 - 8.3 gm/dL . The reference range was not u sed to interpret th is result as normal/abnormal . Albumin (test code = 3.8 g/dL 3.5-5.0 20453-6) Alkaline Phosphatase 72 U/L 40-150 (test code [...] Calcium (test code = 9.1 mg/dL 8.4-10.2 58653-7) AST (test code = 17 U/L 5-34 1920-8) ALT (test code = 16 U/L 6-55 1742-6) EGFR (test code = 78 mL/min/1.73 [place] [address]-3) NOT ACCURATE CREATININE CLEARANCE IN PREDICTING GLOMERULAR FILTRATION RATE . ESTIMATED GFR I S NOT APPLICABLE FOR DIALYSIS PATIEN TS. JENNIFER (test code = JENNIFER) Medical Psychotherapist ID - EDASI Lab Interpretation Abnormal (test code = 25697-7) [facility])2021-01-17 06:52:00 Test Item Value Reference Range Interpretation Comments LDH (test code = 2532-0) 196 U/L 125-220 JENNIFER (test code = JENNIFER) Medical Psychotherapist ID - EDASI Lab Interpretation (test Normal code = 44180-6) [facility] [id number] 06:52:00 Test Item Value Reference Range Interpretation Comments CRP (test code = 676) 0.10 mg/dL 0.00-0.50 JENNIFER (test code = JENNIFER) Medical Psychotherapist ID - EDASI Lab Interpretation (test Normal code = 72779-3) [facility] CenterCOMPREHENSIVE METABOLIC [id number] 06:52:00 Test Item Value Reference Range Interpretation [...] S NOT APPLICABLE FOR DIALYSIS PATIEN TS. Medical Psychotherapist ID - EDASILACTATE DEHYDROGENASE (LDH)2021-01-17 06:52:00 Test Item Value Reference Range Interpretation Comments LACTATE DEHYDROGENASE (BEAKER) (test 196 U/L 125-220 code = 635) Medical Psychotherapist ID - EDASIC-REACTIVE [id number] 06:52:00 Test Item Value Reference Range Interpretation Comments C-REACTIVE PROTEIN (BEAKER) (test 0.10 mg/dL 0.00-0.50 code = 676) Medical Psychotherapist ID - YNNJEA-mdzem4738-45-09 06:10:00 Test Item Value Reference Range Interpretation Comments D-Dimer, Quant (test 1.62 See_Comment H [Autom ated code = 69062-8) message] The system which generated this result [...] range. Lab Interpretation Abnormal (test code = 86838-6) [facility] CenterD-[id number] 06:10:00 Test Item Value Reference Range Interpretation Comments D-Dimer, Quant (test 1.62 See_Comment H [Autom ated code = 40867-6) message] The system which generated this result [...] range. Lab Interpretation Abnormal (test code = 18990-5) [facility] CenterD-[id number] 06:10:00 Test Item Value Reference Range Interpretation Comments D-Dimer, Quant (test 1.62 See_Comment H [Autom ated code = 96120-0) message] The system which generated this result [...] range. Lab Interpretation Abnormal (test code = 87029-4) [facility] CenterD-[id number] 06:10:00 Test Item Value Reference Range Interpretation Comments D-Dimer, Quant (test 1.62 See_Comment H [Autom ated code = 00156-3) message] The system which generated this result [...] range. Lab Interpretation Abnormal (test code = 54918-6) [facility] CenterD-[id number] 06:10:00 Test Item Value Reference Range Interpretation [...] 95-100% range.CBC with platelet count + automated [id number] 06:08:00 Test Item Value Reference Range Interpretation Comments WBC (test code = 6690-2) 11.0 See_Comment H [A utomated message] The system [employer] generated this result transmitted ref erence range: 3.5 - 10 .5 K/L. The refe rence range was not u sed to interpret this result as normal/abnor mal. RBC (test code = 789-8) 5.51 See_Comment H [Au tomated message] The system [employer] generated this result transmitted ref erence range: 3.93 - 5 .22 M/L. The refe rence range was not u sed to interpret this result as normal/abnor mal. MCHC (test code = 786-4) 34.5 See_Comment [A utomated message] The system [employer] generated this result transmitted ref erence range: [...] See_Comment [Aut omated message] 777-3) The system [employer] generated this result transmitted ref erence range: 150 - 45 0 K/CU MM. The referen ce range was not u sed to interpret this result as normal/abnor mal. MPV (test code = 11.3 fL 9.4-12.3 79824-2) nRBC (test code = 413) 0 See_Comment [Aut omated message] The system [employer] generated this result transmitted ref erence range: [...] H [Aut omated message] 670) The system [employer] generated this result transmitted ref erence range: 1.56 - 6 .13 K/L. The refe rence range was not u sed to interpret this result as normal/abnor mal. # Lymphs (test code = 1.94 See_Comment [Auto mated message] 414) The system [employer] generated this result transmitted ref erence range: 1.18 - 3 .74 K/L. The refe rence range was not u sed to interpret this result as normal/abnor mal. # Monos (test code = 0.86 See_Comment H [Autom ated message] 415) The system [employer] generated this result transmitted ref erence range: 0.24 - 0 .36 K/L. The refe rence range was not u sed to interpret this result as normal/abnor mal. # Eos (test code = 416) 0.04 See_Comment [Au tomated message] The system [employer] generated this result transmitted ref erence range: 0.04 - 0 .36 K/L. The refe rence range was not u sed to interpret this result as normal/abnor mal. # Baso (test code = 417) 0.03 See_Comment [A utomated message] The system [employer] generated this result transmitted ref erence range: 0.01 - 0 .08 K/L. The refe rence range was not u sed to interpret this result as normal/abnor mal. Immature 2 % 0-1 H Granulocytes-Relative (test code = 2801) Lab Interpretation (test Abnormal code = 31933-3) [facility] with platelet count + automated [id number] 06:08:00 Test Item Value Reference Range Interpretation Comments WBC (test code = 6690-2) 11.0 See_Comment H [A utomated message] The system [employer] generated this result transmitted ref erence range: 3.5 - 10 .5 K/L. The refe rence range was not u sed to interpret this result as normal/abnor mal. RBC (test code = 789-8) 5.51 See_Comment H [Au tomated message] The system [employer] generated this result transmitted ref erence range: 3.93 - 5 .22 M/L. The refe rence range was not u sed to interpret this result as normal/abnor mal. MCHC (test code = 786-4) 34.5 See_Comment [A utomated message] The system [employer] generated this result transmitted ref erence range: [...] code = 222 See_Comment [Aut omated message] 147-3) The system [employer] generated this result transmitted ref erence range: 150 - 45 0 K/CU MM. The referen ce range was not u sed to interpret this result as normal/abnor mal. MPV (test code = 11.3 fL 9.4-12.3 86157-2) nRBC (test code = 413) 0 See_Comment [Aut omated message] The system [employer] generated this result transmitted ref erence range: [...] H [Aut omated message] 670) The system [employer] generated this result transmitted ref erence range: 1.56 - 6 .13 K/L. The refe rence range was not u sed to interpret this result as normal/abnor mal. # Lymphs (test code = 1.94 See_Comment [Auto mated message] 414) The system [employer] generated this result transmitted ref erence range: 1.18 - 3 .74 K/L. The refe rence range was not u sed to interpret this result as normal/abnor mal. # Monos (test code = 0.86 See_Comment H [Autom ated message] 415) The system [employer] generated this result transmitted ref erence range: 0.24 - 0 .36 K/L. The refe rence range was not u sed to interpret this result as normal/abnor mal. # Eos (test code = 416) 0.04 See_Comment [Au tomated message] The system [employer] generated this result transmitted ref erence range: 0.04 - 0 .36 K/L. The refe rence range was not u sed to interpret this result as normal/abnor mal. # Baso (test code = 417) 0.03 See_Comment [A utomated message] The system [employer] generated this result transmitted ref erence range: 0.01 - 0 .08 K/L. The refe rence range was not u sed to interpret this result as normal/abnor mal. Immature 2 % 0-1 H Granulocytes-Relative (test code = 2801) Lab Interpretation (test Abnormal code = 12571-2) [facility] with platelet count + automated [id number] 06:08:00 Test Item Value Reference Range Interpretation Comments WBC (test code = 6690-2) 11.0 See_Comment H [A utomated message] The system [employer] generated this result transmitted ref erence range: 3.5 - 10 .5 K/L. The refe rence range was not u sed to interpret this result as normal/abnor mal. RBC (test code = 789-8) 5.51 See_Comment H [Au tomated message] The system [employer] generated this result transmitted ref erence range: 3.93 - 5 .22 M/L. The refe rence range was not u sed to interpret this result as normal/abnor mal. MCHC (test code = 786-4) 34.5 See_Comment [A utomated message] The system [employer] generated this result transmitted ref erence range: [...] See_Comment [Aut omated message] 777-3) The system [employer] generated this result transmitted ref erence range: 150 - 45 0 K/CU MM. The referen ce range was not u sed to interpret this result as normal/abnor mal. MPV (test code = 11.3 fL 9.4-12.3 13466-6) nRBC (test code = 413) 0 See_Comment [Aut omated message] The system [employer] generated this result transmitted ref erence range: [...] H [Aut omated message] 670) The system [employer] generated this result transmitted ref erence range: 1.56 - 6 .13 K/L. The refe rence range was not u sed to interpret this result as normal/abnor mal. # Lymphs (test code = 1.94 See_Comment [Auto mated message] 414) The system [employer] generated this result transmitted ref erence range: 1.18 - 3 .74 K/L. The refe rence range was not u sed to interpret this result as normal/abnor mal. # Monos (test code = 0.86 See_Comment H [Autom ated message] 415) The system [employer] generated this result transmitted ref erence range: 0.24 - 0 .36 K/L. The refe rence range was not u sed to interpret this result as normal/abnor mal. # Eos (test code = 416) 0.04 See_Comment [Au tomated message] The system [employer] generated this result transmitted ref erence range: 0.04 - 0 .36 K/L. The refe rence range was not u sed to interpret this result as normal/abnor mal. # Baso (test code = 417) 0.03 See_Comment [A utomated message] The system [employer] generated this result transmitted ref erence range: 0.01 - 0 .08 K/L. The refe rence range was not u sed to interpret this result as normal/abnor mal. Immature 2 % 0-1 H Granulocytes-Relative (test code = 2801) Lab Interpretation (test Abnormal code = 98680-8) [facility] with platelet count + automated [id number] 06:08:00 Test Item Value Reference Range Interpretation Comments WBC (test code = 6690-2) 11.0 See_Comment H [A utomated message] The system [employer] generated this result transmitted ref erence range: 3.5 - 10 .5 K/L. The refe rence range was not u sed to interpret this result as normal/abnor mal. RBC (test code = 789-8) 5.51 See_Comment H [Au tomated message] The system [employer] generated this result transmitted ref erence range: 3.93 - 5 .22 M/L. The refe rence range was not u sed to interpret this result as normal/abnor mal. MCHC (test code = 786-4) 34.5 See_Comment [A utomated message] The system [employer] generated this result transmitted ref erence range: [...] See_Comment [Aut omated message] 777-3) The system [employer] generated this result transmitted ref erence range: 150 - 45 0 K/CU MM. The referen ce range was not u sed to interpret this result as normal/abnor mal. MPV (test code = 11.3 fL 9.4-12.3 08009-2) nRBC (test code = 413) 0 See_Comment [Aut omated message] The system [employer] generated this result transmitted ref erence range: [...] H [Aut omated message] 670) The system [employer] generated this result transmitted ref erence range: 1.56 - 6 .13 K/L. The refe rence range was not u sed to interpret this result as normal/abnor mal. # Lymphs (test code = 1.94 See_Comment [Auto mated message] 414) The system [employer] generated this result transmitted ref erence range: 1.18 - 3 .74 K/L. The refe rence range was not u sed to interpret this result as normal/abnor mal. # Monos (test code = 0.86 See_Comment H [Autom ated message] 415) The system [employer] generated this result transmitted ref erence range: 0.24 - 0 .36 K/L. The refe rence range was not u sed to interpret this result as normal/abnor mal. # Eos (test code = 416) 0.04 See_Comment [Au tomated message] The system [employer] generated this result transmitted ref erence range: 0.04 - 0 .36 K/L. The refe rence range was not u sed to interpret this result as normal/abnor mal. # Baso (test code = 417) 0.03 See_Comment [A utomated message] The system [employer] generated this result transmitted ref erence range: 0.01 - 0 .08 K/L. The refe rence range was not u sed to interpret this result as normal/abnor mal. Immature 2 % 0-1 H Granulocytes-Relative (test code = 2801) Lab Interpretation (test Abnormal code = 71989-4) [facility] W/PLT COUNT & AUTO [id number] 06:08:00 Test Item Value Reference Range Interpretation [...] PERCENT (BEAKER) (test code = 2801) POCT-GLUCOSE [id number] 20:35:00 Test Item Value Reference Range Interpretation Comments POC-GLUCOSE METER 263 mg/dL 70-110 H : TESTED A T [facility] 6720 (BEAKER) (test code = [place] [place], 1538) 42216: Medical Psychotherapist/Techni melissa ID = [id number] for Ra scott (contract), [place] POCT-GLUCOSE [id number] 17:11:00 Test Item Value Reference Range Interpretation Comments POC-GLUCOSE METER 294 mg/dL 70-110 H : TESTED A T [facility] 6720 (BEAKER) (test code = [facility], 1538) 16208: Medical Psychotherapist/Techni melissa ID = [id number] for Kh an (contract), Nos haba POCT-GLUCOSE [id number] 12:30:00 Test Item Value Reference Range Interpretation Comments POC-GLUCOSE METER 265 mg/dL 70-110 H : TESTED A T [facility] 6720 (BEAKER) (test code = [facility], 1538) 54642: Medical Psychotherapist/Techni melissa ID = [id number] for Kh an (contract), Nos haba POCT-GLUCOSE [id number] 08:58:00 Test Item Value Reference Range Interpretation Comments POC-GLUCOSE METER 117 mg/dL 70-110 H : TESTED A T [facility] 6720 (BEAKER) (test code = [facility], 1538) 19097: Medical Psychotherapist/Techni melissa ID = [id number] for Kh an (contract), Nos haba [id number] 05:08:00 Test Item Value Reference Range Interpretation Comments FERRITIN (BEAKER) (test code = 1240.87 ng/mL 5.00-275.00 H 361) Medical Psychotherapist ID - MARCELINO MLACTATE DEHYDROGENASE (LDH)2021-01-16 04:56:00 Test Item Value Reference Range Interpretation Comments LACTATE DEHYDROGENASE 284 U/L 125-220 H Specim en slightly (BEAKER) (test code = hemoly zed 635) Medical Psychotherapist ID - MARCELINO MCOMPREHENSIVE METABOLIC [id number] 04:51:00 Test Item Value Reference Range Interpretation [...] S NOT APPLICABLE FOR DIALYSIS PATIEN TS. Medical Psychotherapist ID - MARCELINO MC-REACTIVE [id number] 04:51:00 Test Item Value Reference Range Interpretation Comments C-REACTIVE PROTEIN (BEAKER) (test 0.22 mg/dL 0.00-0.50 code = 676) Medical Psychotherapist ID - MARCELINO HM-[id number] 04:41:00 Test Item Value Reference Range Interpretation [...] of thrombosis is within 95-100% range. PROTHROMBIN TIME/[id number] 04:38:00 Test Item Value Reference Range Interpretation Comments PROTIME (BEAKER) 15.5 seconds 11.9-14.2 H (test code = 759) INR (BEAKER) (test 1.28 See_Comment [Automat ed message] code = 370) The system [employer] generated this result transmitted ref erence range: <=5.90. The reference range was not used to int erpret this result as normal/abnormal . Effective 03/08/2019: PT Reference Range ChangeNew: 11.9-14.2 Previous: 11.7- 14.7RECOMMENDED COUMADIN/WARFARIN INR THERAPY RANGESSTANDARD DOSE: 2.0-3.0 Includes: PROPHYLAXIS for venous thrombosis, systemic embolization; TREATMENT for venous thrombosis and/or pulmonary embolus.HIGH RISK: Target INR is 2.5-3.5 for patients wiht mechanical heart valves.CBC W/PLT COUNT & AUTO [id number] 04:33:00 Test Item Value Reference Range Interpretation [...] PERCENT (BEAKER) (test code = 2801) POCT-GLUCOSE [id number] 16:57:00 Test Item Value Reference Range Interpretation Comments POC-GLUCOSE METER 241 mg/dL 70-110 H : TESTED A T [facility] 6720 (BEAKER) (test code = [facility] [place], 1538) 12856: Medical Psychotherapist/Techni melissa ID = [id number] for Poonam an (contract), Nos haba Blood Culture # 16:00:00 Test Item Value Reference Range Interpretation Comments Result (test code = No growth in 5 days 6463-4) [facility] Test Item Value Reference Range Interpretation Comments Result (test code = No growth in 5 days 6463-4) [facility] Heart Culture # 16:00:00 Test Item Value Reference Range Interpretation Comments Result (test code = No growth in 5 days 6463-4) [facility] Heart Culture # 16:00:00 Test Item Value Reference Range Interpretation Comments Result (test code = No growth in 5 days 6463-4) [id number]:00:00 Test Item Value Reference Range Interpretation Comments CULTURE (BEAKER) (test No growth in 5 days code = 1095) BLOOD [id number] 16:00:00 Test Item Value Reference Range Interpretation Comments CULTURE (BEAKER) (test No growth in 5 days code = 1095) POCT-GLUCOSE [id number] 12:30:00 Test Item Value Reference Range Interpretation Comments POC-GLUCOSE METER 247 mg/dL 70-110 H : TESTED A T [facility] 6720 (SERGIO) (test code = SRAVANI Manriquez [facility], 1538) 55967: Medical Psychotherapist/Techni melissa ID = [id number] for Poonam luis (contract), Nos haba POCT-GLUCOSE [id number] 08:41:00 Test Item Value Reference Range Interpretation Comments POC-GLUCOSE METER 123 mg/dL 70-110 H : TESTED A T [facility] 6720 (SERGIO) (test code = SRAVANI Manriquez [facility], 1538) 86078: Medical Psychotherapist/Techni melissa ID = [id number] for Poonam luis (contract), Nos haba Basic Metabolic [id number] 06:36:00 Test Item Value Reference Range Interpretation [...] Calcium (test code = 9.2 mg/dL 8.4-10.2 72284-2) EGFR (test code = 80 mL/min/1.73 [place] [address]-5) NOT ACCURATE CREATININE CLEARANCE IN PREDICTING GLOMERULAR FILTRATION RATE . ESTIMATED GFR I S NOT APPLICABLE FOR DIALYSIS PATIENTS. JENNIFER (test code = JENNIFER) Medical Psychotherapist ID - YULIA Hickman Lab Interpretation Abnormal (test code = 49103-4) [facility] Center[facility] function [id number] 06:36:00 Test Item Value Reference Range Interpretation [...] = 3.7 g/dL 3.5-5 Specime n slightly 96229-4) hemolyzed Total Bilirubin (test 1.1 mg/dL 0.2-1.2 [...] 1742-6) hemolyzed JENNIFER (test code = JENNIFER) Medical Psychotherapist ID - PIAYA L Lab Interpretation Abnormal (test code = 97451-4) [facility] Center[facility]esium2021-[facility] 06:36:00 Test Item Value Reference Range Interpretation Comments Magnesium (test code = 2.1 mg/dL 1.6-2.6 Speci men 31437-8) slightly hemolyzed JENNIFER (test code = JENNIFER) Medical Psychotherapist ID - PIAYA L Lab Interpretation Normal (test code = 87420-9) [facility] Center[facility] Metabolic [id number] 06:36:00 Test Item Value Reference Range Interpretation [...] Calcium (test code = 9.2 mg/dL 8.4-10.2 82741-9) EGFR (test code = 80 mL/min/1.73 [place] [address]-4) NOT ACCURATE CREATININE CLEARANCE IN PREDICTING GLOMERULAR FILTRATION RATE . ESTIMATED GFR I S NOT APPLICABLE FOR DIALYSIS PATIENTS. JENNIFER (test code = JENNIFER) Medical Psychotherapist ID - PIAYA L Lab Interpretation Abnormal (test code = 39125-3) [facility] CenterHep[facility] function [id number] 06:36:00 Test Item Value Reference Range Interpretation [...] = 3.7 g/dL 3.5-5 Specime n slightly 95445-5) hemolyzed Total Bilirubin (test 1.1 mg/dL 0.2-1.2 [...] 1742-6) hemolyzed JENNIFER (test code = JENNIFER) Medical Psychotherapist ID - PIAYA L Lab Interpretation Abnormal (test code = 25802-7) [facility] Center[facility]esium2021-[facility] 06:36:00 Test Item Value Reference Range Interpretation Comments Magnesium (test code = 2.1 mg/dL 1.6-2.6 Speci men 56316-9) slightly hemolyzed JENNIFER (test code = JENNIFER) Medical Psychotherapist ID - PIAYA L Lab Interpretation Normal (test code = 94285-5) [facility] Center[facility]esium2021-[facility]-07 06:36:00 Test Item Value Reference Range Interpretation Comments Magnesium (test code = 2.1 mg/dL 1.6-2.6 Speci men 03020-1) slightly hemolyzed JENNIFER (test code = JENNIFER) Medical Psychotherapist ID - PIAYA L Lab Interpretation Normal (test code = 35136-4) [facility] CenterMagnesium2021-04-07 06:36:00 Test Item Value Reference Range Interpretation Comments Magnesium (test code = 2.1 mg/dL 1.6-2.6 Speci men 07019-6) slightly hemolyzed JENNIFER (test code = JENNIFER) Medical Psychotherapist ID - YULIA L Lab Interpretation Normal (test code = 30313-7) [facility] 06:36:00 Test Item Value Reference Range Interpretation Comments MAGNESIUM (BEAKER) 2.1 mg/dL 1.6-2.6 Specimen slightly (test code = 627) hemolyzed Medical Psychotherapist ID - YULIA LBASIC METABOLIC [id number] 06:36:00 Test Item Value Reference Range Interpretation [...] S NOT APPLICABLE FOR DIALYSIS PATIEN TS. Medical Psychotherapist ID - YULIA LHEPATIC FUNCTION [id number] 06:36:00 Test Item Value Reference Range Interpretation [...] Specimen slightly (test code = 347) hemolyzed Medical Psychotherapist ID - PIAYA LCBC W/PLT COUNT & AUTO [id number] 04:54:00 Test Item Value Reference Range Interpretation [...] PERCENT (BEAKER) (test code = 2801) POCT-GLUCOSE [id number] 16:19:00 Test Item Value Reference Range Interpretation Comments POC-GLUCOSE METER 266 mg/dL 70-110 H : TESTED A T [facility] 6720 (BEAKER) (test code = [facility], 153) 15[address]: Medical Psychotherapist/Techni melissa ID = [id number] for Wi lliams (contract), olg a POCT-GLUCOSE [id number] 12:15:00 Test Item Value Reference Range Interpretation Comments POC-GLUCOSE METER 187 mg/dL 70-110 H : TESTED A T [facility] 6720 (BEAKER) (test code = [facility], 1538) 06541: Medical Psychotherapist/Techni melissa ID = [id number] for Wi lliams (contract), olg a POCT-GLUCOSE [id number] 08:13:00 Test Item Value Reference Range Interpretation Comments POC-GLUCOSE METER 146 mg/dL 70-110 H : TESTED A T [facility] 6720 (BEAKER) (test code = [facility], 1538) 8[address]: Medical Psychotherapist/Techni melissa ID = [id number] for George flores (contract), Reggie sharma BASIC METABOLIC [id number] 04:51:00 Test Item Value Reference Range Interpretation [...] S NOT APPLICABLE FOR DIALYSIS PATIEN TS. Medical Psychotherapist ID - EDASIHEPATIC FUNCTION [id number] 04:51:00 Test Item Value Reference Range Interpretation [...] (test code = 9 U/L 6-55 347) Medical Psychotherapist ID - EDASICBC W/PLT COUNT & AUTO [id number] 04:25:00 Test Item Value Reference Range Interpretation [...] PERCENT (BEAKER) (test code = 2801) POCT-GLUCOSE [id number] 21:23:00 Test Item Value Reference Range Interpretation Comments POC-GLUCOSE METER 234 mg/dL 70-110 H : Notified RN/MD: ([facility]) (test code = TESTED AT [facility] 6537 9265) [facility], [address]: Medical Psychotherapist/Techni melissa ID = [id number] for Ro gel (contract), Du ie POCT-GLUCOSE [id number] 17:28:00 Test Item Value Reference Range Interpretation Comments POC-GLUCOSE METER 204 mg/dL 70-110 H : TESTED A T [facility] 6720 (BEAKER) (test code = [facility] [employer] [facility], 1538) [address]: Medical Psychotherapist/Techni melissa ID = [id number] for Kh an (contract), Nos haba POCT-GLUCOSE [id number] 11:38:00 Test Item Value Reference Range Interpretation Comments POC-GLUCOSE METER 201 mg/dL 70-110 H : TESTED A T [facility] 6720 (BEAKER) (test code = [facility] [place], 1538) 07[address]: Medical Psychotherapist/Techni melissa ID = [id number] for Wi lliams (contract), olg a POCT-GLUCOSE [id number] 07:45:00 Test Item Value Reference Range Interpretation Comments POC-GLUCOSE METER 180 mg/dL 70-110 H : TESTED A T [facility] 6720 (BEAKER) (test code = [facility] R [facility], 1538) [address]: Medical Psychotherapist/Techni melissa ID = [id number] for Wi lliams (contract), olg a ECG 12 [id number] 06:33:21Interface, External Ris In - 01/13/2021 6:33 AM CDTVentricular Rate 83 BPMAtrial Rate 83 BPMP-R Interval 138 msQRS Duration 78 msQ-T Interval 394 msQTC Calculation(Bazett) 462 msP [place] 20 degreesR Axis84 degreesT [place] 52 degreesNormal sinus rhythmNormal ECGWhen compared with ECG of 10-APR-2019 22:09,No significant change was foundConfirmed by MD MANSI, NARENDRA Dodd ([id number]) on 01/13/2021 6:33:18 [facility] 2021-01-13 06:33:21Interface, External Ris In 01/13/2021 6:33 AM CDTVentricular Rate 83 BPMAtrial Rate 83 BPMP-R Interval 138 msQRS Duration 78 msQ-T Interval 394 msQTC Calculation(Bazett) 462 msP [place] 20 degreesR Axis84 degreesT [place] 52 degreesNormal sinus rhythmNormal ECGWhen compared with ECG of 10-APR-2019 22:09,No significant change was foundConfirmed by MD MANSI, NARENDRA oDdd ([id number]) on 01/13/2021 6:33:18 [facility] [id number] 06:11:00 Test Item Value Reference Range Interpretation [...] S NOT APPLICABLE FOR DIALYSIS PATIEN TS. Medical Psychotherapist ID - EDASIHEPATIC FUNCTION [id number] 06:11:00 Test Item Value Reference Range Interpretation [...] Specimen slightly (test code = 347) hemolyzed Medical Psychotherapist ID - [id number] 04:41:00 Test Item Value Reference Range Interpretation Comments PARTIAL THROMBOPLASTIN TIME 83.0 seconds 22.5-36.0 H (BEAKER) (test code = 760) CBC W/PLT COUNT & AUTO [id number] 04:33:00 Test Item Value Reference Range Interpretation [...] PERCENT (BEAKER) (test code = 2801) POCT-GLUCOSE [id number] 21:27:00 Test Item Value Reference Range Interpretation Comments POC-GLUCOSE METER 188 mg/dL 70-110 H : TESTED A T [facility] 6720 (BEAKER) (test code = [facility], 1538) 22168: Medical Psychotherapist/Techni melissa ID = [id number] for Ro mary (contract), Du ie POCT-GLUCOSE [id number] 17:27:00 Test Item Value Reference Range Interpretation Comments POC-GLUCOSE METER 227 mg/dL 70-110 H : TESTED A T [facility] 6720 (BEAKER) (test code = [facility], 1538) 54747: Medical Psychotherapist/Techni melissa ID = [id number] for Mi reles (contract), Chika doi-b POCT-GLUCOSE [id number] 12:15:00 Test Item Value Reference Range Interpretation Comments POC-GLUCOSE METER 178 mg/dL 70-110 H : TESTED A T [facility] 6720 (BEAKER) (test code = [facility], 1538) 97454: Medical Psychotherapist/Techni melissa ID = [id number] for Mi reles (contract), Chika doi-b Hemoglobin [id number] 09:50:00 Test Item Value Reference Range Interpretation Comments Hemoglobin A1C (test code = 4548-4) 7.2 % 4.3-6.1 H Lab Interpretation (test code = Abnormal 44111-5) [facility] CenterHem[facility] [id number] 09:50:00 Test Item Value Reference Range Interpretation Comments Hemoglobin A1C (test code = 4548-4) 7.2 % 4.3-6.1 H Lab Interpretation (test code = Abnormal 97918-9) [facility] CenterHemoglobin [id number] 09:50:00 Test Item Value Reference Range Interpretation Comments Hemoglobin A1C (test code = 4548-4) 7.2 % 4.3-6.1 H Lab Interpretation (test code = Abnormal 74596-3) [facility] CenterHemoglobin [id number] 09:50:00 Test Item Value Reference Range Interpretation Comments Hemoglobin A1C (test code = 4548-4) 7.2 % 4.3-6.1 H Lab Interpretation (test code = Abnormal 35818-8) [facility] CenterHEMOGLOBIN [id number] 09:50:00 Test Item Value Reference Range Interpretation Comments HEMOGLOBIN A1C (BEAKER) (test code = 7.2 % 4.3-6.1 H 368) POCT-GLUCOSE [id number] 09:06:00 Test Item Value Reference Range Interpretation Comments POC-GLUCOSE METER 129 mg/dL 70-110 H : TESTED A T [facility] 6720 (BEAKER) (test code = SRAVANI Manriquez [facility], 1538) [address]: Medical Psychotherapist/Techni melissa ID = [id number] for Bernadine damicozahra (contract)Chika doi-b BASIC METABOLIC [id number] 05:46:00 Test Item Value Reference Range Interpretation [...] S NOT APPLICABLE FOR DIALYSIS PATIEN TS. Medical Psychotherapist ID - DBHEPATIC FUNCTION [id number] 05:46:00 Test Item Value Reference Range Interpretation [...] Specimen slightly (test code = 347) hemolyzed Medical Psychotherapist ID - DBCBC W/PLT COUNT & AUTO [id number] 05:24:00 Test Item Value Reference Range Interpretation [...] 0-1 PERCENT (BEAKER) (test code = 2801) [id number] 05:21:00 Test Item Value Reference Range Interpretation Comments PARTIAL THROMBOPLASTIN TIME 96.8 seconds 22.5-36.0 H (BEAKER) (test code = 760) [id number] 05:21:00 Test Item Value Reference Range Interpretation [...] H (BEAKER) (test code = 760) POCT-GLUCOSE [id number] 20:09:00 Test Item Value Reference Range Interpretation Comments POC-GLUCOSE METER 174 mg/dL 70-110 H : TESTED A T [facility] 6720 (BEAKER) (test code = [facility], 1538) 05495: Medical Psychotherapist/Techni melissa ID = [id number] for Ro gel (contract), Du villalobos [id number] 17:45:00 Test Item Value Reference Range Interpretation Comments PARTIAL THROMBOPLASTIN TIME 85.1 seconds 22.5-36.0 H (BEAKER) (test code = 760) POCT-GLUCOSE [id number] 17:25:00 Test Item Value Reference Range Interpretation Comments POC-GLUCOSE METER 165 mg/dL 70-110 H : TESTED A T [facility] 6720 (BEAKER) (test code = [facility], [facility]8) [address]: Medical Psychotherapist/Techni melissa ID = [id number] for Bernadine damicos (contract), Chika doi-b POCT-GLUCOSE [id number] 11:46:00 Test Item Value Reference Range Interpretation Comments POC-GLUCOSE METER 177 mg/dL 70-110 H : TESTED A T [facility] 6720 (BEAKER) (test code = [facility], [facility]8) 49571: Medical Psychotherapist/Techni melissa ID = [id number] for GEORGIA RANDALLISSA [id number] 10:37:00 Test Item Value Reference Range Interpretation Comments PARTIAL THROMBOPLASTIN TIME 108.3 seconds 22.5-36.0 H (BEAKER) (test code = 760) POCT-GLUCOSE [id number] 08:40:00 Test Item Value Reference Range Interpretation Comments POC-GLUCOSE METER 181 mg/dL 70-110 H : TESTED A T [facility] 6720 (BEAKER) (test code = [facility], [facility]8) 76896: Medical Psychotherapist/Techni melissa ID = [id number] for VINNY MARSHL, JANNY [id number] 02:55:00 Test Item Value Reference Range Interpretation Comments PARTIAL THROMBOPLASTIN TIME 81.8 seconds 22.5-36.0 H (BEAKER) (test code = 760) BASIC METABOLIC [id number] 01:43:00 Test Item Value Reference Range Interpretation [...] S NOT APPLICABLE FOR DIALYSIS PATIEN TS. Medical Psychotherapist ID - [id number] 01:43:00 Test Item Value Reference Range Interpretation Comments MAGNESIUM (BEAKER) (test code = 2.0 mg/dL 1.6-2.6 627) Medical Psychotherapist ID - DBHEPATIC FUNCTION [id number] 01:43:00 Test Item Value Reference Range Interpretation [...] (test code = 15 U/L 6-55 347) Medical Psychotherapist ID - [id number] 01:32:00 Test Item Value Reference Range Interpretation Comments PARTIAL THROMBOPLASTIN TIME 139.0 seconds 22.5-36.0 H (BEAKER) (test code = 760) CBC W/PLT COUNT & AUTO [id number] 01:06:00 Test Item Value Reference Range Interpretation [...] 0-1 PERCENT (BEAKER) (test code = 2801) [id number] 00:37:00 Test Item Value Reference Range Interpretation Comments PARTIAL THROMBOPLASTIN TIME > seconds 22.5-36.0 HH (BEAKER) (test code = 760) [id number] 23:57:00 Test Item Value Reference Range Interpretation Comments PARTIAL THROMBOPLASTIN TIME > seconds 22.5-36.0 HH (BEAKER) (test code = 760) POCT-GLUCOSE [id number] 23:35:00 Test Item Value Reference Range Interpretation Comments POC-GLUCOSE METER 173 mg/dL 70-110 H : TESTED A T [facility] 6720 ([facility]) (test code = [facility] Manriquez [facility], 1538) [address]: Medical Psychotherapist/Techni melissa ID = [id number] for Matt anderson (contract), Ena r CT, CHEST WITH IV CONTRAST- PE TEST [id number] 19:26:00Referring: DOROTA Alvares-CUnlisted Reason for Exam - Click Yes and Enter Reason Below->No [facility] : 1965 Sex: FFINAL REPORT [...] diameter. No filling defects within the pulmonary arteries [...] [place] MDReport Verified Date/Time: 01/10/2021 19:26:31 CT chest for pulmonary [id number] 19:26:00Interface, External Ris In - 01/10/2021 7:29 [...] diameter. No filling defects within the pulmonary arteries to suggest pulmonary embolus. LUNGS AND AIRWAYS: Lungs are hypoinflated with bibasilar atelectasis. There is scattered patchy consolidative and groundglass opacities predominantly peripheral in distribution without a significant basilar or apical gradient. Tracheobronchial airways are clear. PLEURA: Trace left pleural effusion. No pneumothorax. HEART AND MEDIASTINUM: The visualized thyroid gland is normal.No mediastinal, hilar, or axillary lymphadenopathy. Marked coronary [...] processes such as pulmonary edema, influenza pneumonia andorganizing pneumonia, as can be seen with drug toxicity and connective tissue disorder, can cause a s imilar imaging pattern. 3. Trace left pleural effusion and bibasilar atelectasis. Signed: [place] MDReport Verified Date/Time: 01/10/2021 19:26:31 [facility] [id number] 19:26:00 Interface, External Ris In - 01/10/2021 7:29 PM CDTFINAL REPORT TECHNIQUE: CT scan of the chest WITH intravenous contrast. Dose modulation, iterative reconstruction, and/or weight-based adjustment of the mA/kV was utilized to reduce the radiation dose to as low as reasonably achiev able. INDICATION: Shortness of breathPE suspected, high pretest prob COMPARISON: 05/27/2019. FINDINGS: LINES/TUBES: None. PULMONARY ARTERIES: Proximal to the bifurcation of the main pulmonary artery, the main pulmonary artery is 2.6 cm in diameter. No filling defects within the pulmonary arteries to suggest pulmonary embolus. LUNGS AND AIRWAYS: Lungs are hypoinflated with bibasilar atelectasis. There is scattered patchy consolidative and groundglass opacities predominantly peripheral in distribution without a significant basilar or apical gradient. Tracheobronchial airways are clear. PLEURA: Trace left pleural effusion. No pneumothorax. HEART AND MEDIASTINUM: The visualized thyroid gland is normal.No mediastinal, hilar, or axillary lymphadenopathy. Marked coronary [...] processes such as pulmonary edema, influenza pneumonia andorganizing pneumonia, as can be seen with drug toxicity and connective tissue disorder, can cause a s imilar imaging pattern. 3. Trace left pleural effusion and bibasilar atelectasis. Signed: [place] Verified Date/Time: 01/10/2021 19:26:31 [facility] [id number] 18:30:00 Test Item Value Reference Range Interpretation Comments POC-GLUCOSE METER 190 mg/dL 70-110 H : TESTED A T [facility] 6720 (BEAKER) (test code = [facility] 1538[facility] [address]: Medical Psychotherapist/Techni melissa ID = [id number] for Rodrigo ansarialez, Yohana Lactic acid, venous [id number] 17:48:00 Test Item Value Reference Range Interpretation Comments Lactate, Venous (test 1.27 mmol/L 0.5-2.2 Specim en code = 2872) slightly hemolyzed JENNIFER (test code = JENNIFER) Medical Psychotherapist ID - DB Lab Interpretation Normal (test code = 43574-1) [facility] CenterL[facility], venous [id number] 17:48:00 Test Item Value Reference Range Interpretation Comments Lactate, Venous (test 1.27 mmol/L 0.5-2.2 Specim en code = 2872) slightly hemolyzed JENNIFER (test code = JENNIFER) Medical Psychotherapist ID - DB Lab Interpretation Normal (test code = 28409-5) [facility] CenterL[facility], venous [id number] 17:48:00 Test Item Value Reference Range Interpretation Comments Lactate, Venous (test 1.27 mmol/L 0.50-2.20 Specim en code = 2872) slightly hemolyzed JENNIFER (test code = JENNIFER) Medical Psychotherapist ID - DB Lab Interpretation Normal (test code = 51563-4) [facility] CenterL[facility], venous [id number] 17:48:00 Test Item Value Reference Range Interpretation Comments Lactate, Venous (test 1.27 mmol/L 0.50-2.20 Specim en code = 2872) slightly hemolyzed JENNIFER (test code = JENNIFER) Medical Psychotherapist ID - DB Lab Interpretation Normal (test code = 74214-3) [facility] CenterLACTIC ACID, [id number] 17:48:00 Test Item Value Reference Range Interpretation Comments LACTATE BLOOD VENOUS 1.27 mmol/L 0.50-2.20 Specime n slightly (2) (BEAKER) (test hemolyzed code = 2872) Medical Psychotherapist ID - DBB-type natriuretic [id number] 16:05:00 Test Item Value Reference Range Interpretation Comments BNP (test code = 74958-6) 16 pg/mL 0-100 JENNIFER (test code = JENNIFER) Medical Psychotherapist ID - DB Lab Interpretation (test Normal code = 93233-3) [facility] CenterB-type natriuretic [id number] 16:05:00 Test Item Value Reference Range Interpretation Comments BNP (test code = 40218-5) 16 pg/mL 0-100 JENNIFER (test code = JENNIFER) Medical Psychotherapist ID - DB Lab Interpretation (test Normal code = 87820-5) [facility] CenterB-type natriuretic [id number] 16:05:00 Test Item Value Reference Range Interpretation Comments BNP (test code = 05075-5) 16 pg/mL 0-100 JENNIFER (test code = JENNIFER) Medical Psychotherapist ID - DB Lab Interpretation (test Normal code = 18907-0) [facility] CenterB-type natriuretic [id number] 16:05:00 Test Item Value Reference Range Interpretation Comments BNP (test code = 11604-1) 16 pg/mL 0-100 JENNIFER (test code = JENNIFER) Medical Psychotherapist ID - DB Lab Interpretation (test Normal code = 44927-3) [facility] CenterB-TYPE NATRIURETIC FACTOR (BNP)2021-01-10 16:05:00 Test Item Value Reference Range Interpretation Comments B-TYPE NATRIURETIC PEPTIDE (BEAKER) 16 pg/mL 0-100 (test code = 700) Medical Psychotherapist ID - [id number] 15:38:00 Test Item Value Reference Range Interpretation Comments FERRITIN (SERGIO) (test code = 996.31 ng/mL 5.00-275.00 H 361) Medical Psychotherapist ID - DBTroponin [id number] 15:27:00 Test Item Value Reference Range Interpretation Comments Troponin I (test code = <0.01 0-0.03 07100-8) JENNIFER (test code = JENNIFER) Troponin I [...] failure, acidosis, acute neurological disease, and persistent tachyarrhythmia.[facility] ID - DB Lab Interpretation (test Normal code = 56838-2) [facility] [id number] 15:27:00 Test Item Value Reference Range Interpretation Comments Troponin I (test code = <0.01 0-0.03 40214-9) JENNIFER (test code = JENNIFER) Troponin I [...] failure, acidosis, acute neurological disease, and persistent tachyarrhythmia.PollitoIngles ID - DB Lab Interpretation (test Normal code = 33457-1) [facility] CenterTrgrand [facility] [id number] 15:27:00 Test Item Value Reference Range Interpretation Comments Troponin I (test code = <0.01 0.00-0.03 07144-6) JENNIFER (test code = JENNIFER) Troponin I [...] failure, acidosis, acute neurological disease, and persistent tachyarrhythmia.[facility] zkipster ID - DB Lab Interpretation (test Normal code = 15114-8) [facility] [id number] 15:27:00 Test Item Value Reference Range Interpretation Comments Troponin I (test code = <0.01 0.00-0.03 98733-9) JENNIFER (test code = JENNIFER) Troponin I [...] failure, acidosis, acute neurological disease, and persistent tachyarrhythmia.[facility] zkipster ID - DB Lab Interpretation (test Normal code = 30538-4) [facility] [id number] 15:27:00 Test Item Value Reference Range Interpretation [...] failure, acidosis, acute neurological disease, and persistent tachyarrhythmia.Medical Psychotherapist ID - DBCOMPREHENSIVE METABOLIC [id number] 15:19:00 Test Item Value Reference Range Interpretation [...] S NOT APPLICABLE FOR DIALYSIS PATIEN TS. Medical Psychotherapist ID - DBLACTATE DEHYDROGENASE (LDH)2021-01-10 15:19:00 Test Item Value Reference Range Interpretation Comments LACTATE DEHYDROGENASE (BEAKER) (test 229 U/L 125-220 H code = 635) Medical Psychotherapist ID - DBC-REACTIVE [id number] 15:19:00 Test Item Value Reference Range Interpretation Comments C-REACTIVE PROTEIN (BEAKER) (test 5.75 mg/dL 0.00-0.50 H code = 676) Medical Psychotherapist ID - DBLACTIC ACID, [id number] 15:17:00 Test Item Value Reference Range Interpretation Comments LACTATE BLOOD VENOUS 2.64 mmol/L 0.50-2.20 H Specime n slightly (2) (BEAKER) (test hemolyzed code = 6350) Medical Psychotherapist ID - DBCRITICAL [id number] 15:01:08Davida Dillon MD 01/10/2021 11:07 PMCritical CarePerformed by: Davida Dillon MDAuthorized by: Davida Dillon MD Total critical care time: 40 minutesCritical care was necessary to treat or prevent imminent or life-threatening deterioration of the following conditions: respiratory failure.Critical care was time spent personally by me on the following activities: discussions withconsultants, evaluation of patient's response to treatment, obtaining history from patient or surrogate, ordering and review of laboratory studies, pulse oximetry, ordering and performing treatments and interventions, ordering and review of radiographic studies, re-evaluation of patient's condition and development of treatment plan with patient or surrogate.[facility] CenterECG/EKG Interpretation 2021-01-10 15:01:08Davida Dillon MD 01/10/2021 11:07 PMECG/EKG Interpretation Date/Time: 01/10/2021 11:06 PMPerformed by: Davida Dillon MDAuthorized by: Davida Dillon MD The ECG is interpreted as sinus rhythm. Rate is normal rate. Conduction: conduction normal. ST segments normal. T waves normal. Other findings: no other findings. Clinical Impression: normal ECGWestlake Outpatient Medical CenterCRITICAL [id number] 15:01:Davida Dillon MD 01/10/2021 11:07 PMCritical CarePerformed by: Davida Dillon MDAuthorized by: Davida Dillon MD Total critical care time: 40 minutesCritical care was necessary to treat or prevent imminent or life- threatening deterioration of the following conditions: respiratory failure.Critical care was time spent personally by me on the following activities: discussions withconsultants, evaluation of patient's response to treatment, obtaining history from patient or surrogate, ordering and review of laboratory studies, pulse oximetry, ordering and performing treatments and interventions, ordering and review of radiographic studies, re-evaluation of patient's condition and development of treatment plan with patient or surrogate. [facility] CenterECG/EKG [id number] 15:01:08Davida Dillon MD 01/10/2021 11:07 PMECG/EKG Interpretation Date/Time: 01/10/2021 11:06 PMPerformed by: Daivda Dillon MDAuthorized by: Davida Dillon MD The ECG is interpreted as sinus rhythm. Rate is normal rate. Conduction: conduction normal. ST segments normal. T waves normal. Other findings: no other findings. Clinical Impression: normal ECGCHI [facility] W/PLT COUNT & AUTO [id number] 14:59:00 Test Item Value Reference Range Interpretation [...] 0-1 PERCENT (BEAKER) (test code = 2801) [id number] 14:58:00 Test Item Value Reference Range Interpretation Comments PARTIAL THROMBOPLASTIN TIME 33.8 seconds 22.5-36.0 (BEAKER) (test code = 760) PROTHROMBIN TIME/[id number] 14:57:00 Test Item Value Reference Range Interpretation Comments PROTIME (BEAKER) 15.5 seconds 11.9-14.2 H (test code = 759) INR (BEAKER) (test 1.26 See_Comment [Automat ed message] code = 370) The system [employer] generated this result transmitted ref erence range: <=5.90. The reference range was not used to int erpret this result as normal/abnormal . Effective 03/08/2019: PT Reference Range ChangeNew: 11.9-14.2 Previous: 11.7- 14.7RECOMMENDED COUMADIN/WARFARIN INR THERAPY RANGESSTANDARD DOSE: 2.0-3.0 Includes: PROPHYLAXIS for venous thrombosis, systemic embolization; TREATMENT for venous thrombosis and/or pulmonary embolus.HIGH RISK: Target INR is 2.5-3.5 for patients wiht mechanical heart valves.Blood gas, [id number] 14:53:00 Test Item Value Reference Range Interpretation Comments pH, Juan Francisco (test code = 7.56 7.32-7.42 H 2746-6) pCO2, Juan Francisco (test code = 26 See_Comment L [Aut omated message] 115) The system [employer] generated this result transmit christopher reference range : 41 - 51 mm Hg. The reference range was not used to interpret this result as normal/abnormal . pO2, Juan Francisco (test code = 81 See_Comment H [Auto mated message] 7605-2) The system [employer] generated this result transmit christopher reference range : 25 - 40 mm Hg. The reference range was not used to interpret this result as normal/abnormal . O2 Sat, Juan Francisco (test code 97.0 % 40-70 H = 2711-0) HCO3, Juan Francisco (test code = 23 mmol/L 21-29 22469-5) Base Excess, Juan Francisco (test 2.3 mmol/L -2-3 code = 1927-3) Patient Temperature 38.0 (test code = 8310-5) FIO2 (test code = 1819) 21 Lab Interpretation Abnormal (test code = 19414-1) [facility] gas, [id number] 14:53:00 Test Item Value Reference Range Interpretation Comments pH, Juan Francisco (test code = 7.56 7.32-7.42 H 2746-6) pCO2, Juan Francisco (test code = 26 See_Comment L [Aut omated message] 755) The system [employer] generated this result transmit christopher reference range : 41 - 51 mm Hg. The reference range was not used to interpret this result as normal/abnormal . pO2, Juan Francisco (test code = 81 See_Comment H [Auto mated message] 2705-2) The system [employer] generated this result transmit christopher reference range : 25 - 40 mm Hg. The reference range was not used to interpret this result as normal/abnormal . O2 Sat, Juan Francisco (test code 97.0 % 40-70 H = 2711-0) HCO3, Juan Francisco (test code = 23 mmol/L 21-29 19427-0) Base Excess, Juan Francisco (test 2.3 mmol/L -2-3 code = 1927-3) Patient Temperature 38.0 (test code = 8310-5) FIO2 (test code = 1819) 21 Lab Interpretation Abnormal (test code = 41848-2) [facility] gas, [id number] 14:53:00 Test Item Value Reference Range Interpretation Comments pH, Juan Francisco (test code = 7.56 7.32-7.42 H 2746-6) pCO2, Juan Francisco (test code = 26 See_Comment L [Aut omated message] 755) The system [employer] generated this result transmit christopher reference range : 41 - 51 mm Hg. The reference range was not used to interpret this result as normal/abnormal . pO2, Juan Francisco (test code = 81 See_Comment H [Auto mated message] 2705-2) The system [employer] generated this result transmit christopher reference range : 25 - 40 mm Hg. The reference range was not used to interpret this result as normal/abnormal . O2 Sat, Juan Francisco (test code 97.0 % 40.0-70.0 H = 2711-0) HCO3, Juan Francisco (test code = 23 mmol/L 21-29 46498-4) Base Excess, Juan Francisco (test 2.3 mmol/L -2.0-3.0 code = 1927-3) Patient Temperature 38.0 (test code = 8310-5) FIO2 (test code = 1819) 21 Lab Interpretation Abnormal (test code = 05297-5) [facility] [id number] 14:53:00 Test Item Value Reference Range Interpretation Comments pH, Juan Francisco (test code = 7.56 7.32-7.42 H 2746-6) pCO2, Juan Francisco (test code = 26 See_Comment L [Aut omated message] 755) The system [employer] generated this result transmit christopher reference range : 41 - 51 mm Hg. The reference range was not used to interpret this result as normal/abnormal . pO2, Juan Francisco (test code = 81 See_Comment H [Auto mated message] 1185-2) The system [employer] generated this result transmit christopher reference range : 25 - 40 mm Hg. The reference range was not used to interpret this result as normal/abnormal . O2 Sat, Juan Francisco (test code 97.0 % 40.0-70.0 H = 2711-0) HCO3, Juan Francisco (test code = 23 mmol/L 21-29 45225-4) Base Excess, Juan Francisco (test 2.3 mmol/L -2.0-3.0 code = 1927-3) Patient Temperature 38.0 (test code = 8310-5) FIO2 (test code = 1819) 21 Lab Interpretation Abnormal (test code = 17142-4) [facility], [id number] 14:53:00 Test Item Value Reference Range Interpretation [...] 1819) 21.0 RAD, CHEST, 1 VIEW, NON [id number] 14:44:00Referring: JUAN Alvares for exam:->SOBShould this be performed at the bedside?->Yes [facility] : 1965 Sex: FFINAL REPORT INDICATION: SOB COMPARISON: April 10, 2019 TECHNIQUE: Single frontal view of the chest. FINDINGS: Lungs and pleura: Clear lungs. No effusion.Heart and mediastinum: Normal heart size. Unremarkable mediastinal contours.Osseous structures: No acute abnormality.Other: None. IMPRESSION: No acute intrathoracic abnormality. Signed: JR Ruiz Robert MDReport Verified Date/Time: 01/10/2021 14:44:46 Reading Location: [facility] Radiology Reading Room XR chest 1 view portable / [id number] 14:44:00 Interface, External Ris In - 01/10/2021 2:46 PM CDTFINAL REPORT INDICATION: SOBCOMPARISON: April 10, 2019 TECHNIQUE: Single frontal view of the chest. FINDINGS: Lungs and pleura: Clear lungs. No effusion.Heart and mediastinum: Normal heart size. Unremarkable mediastinal contours.Osseous structures: No acute abnormality.Other: None. IMPRESSION: No acute intrathoracic abnormality. Signed: JR Ruiz Robert MDReport Verified Date/Time: 01/10/2021 14:44:46 Reading Location: [facility] Radiology Reading Room [facility] / [id number] 14:44:00 Interface, External Ris In - 01/10/2021 2:46 PM CDTFINAL REPORT INDICATION: SOBCOMPARISON: April 10, 2019 TECHNIQUE: Single frontal view of the chest. FINDINGS: Lungs and pleura: Clear lungs. No effusion.Heart and mediastinum: Normal heart size. Unremarkable mediastinal contours.Osseous structures: No acute abnormality.Other: None. IMPRESSION: No acute intrathoracic abnormality. Signed: JR Ruiz Robert MDReport Verified Date/Time: 01/10/2021 14:44:46 Reading Location: [facility] Radiology Reading Room [facility] - [id number] 00:00:00Ordered by an unspecified provider.[facility] CenterEKG-[id number] 00:00:00 Ordered by an unspecified provider.[facility] REPORT - [id number] 00:00:00Ordered by an unspecified provider.[facility] CenterEKG-[id number] 00:00:00Ordered by an unspecified provider.[facility] CenterAlpha fetoprotein (AFP), tumor [id number] 18:08:00 Test Item Value Reference Range Interpretation Comments Alpha-Fetoprotein (test code 5.6 ng/mL <10.0 = 1834-1) JENNIFER (test code = JENNIFER) Medical Psychotherapist ID - DB Lab Interpretation (test Normal code = 50769-2) [facility] CenterAlpha fetoprotein (AFP), tumor [id number] 18:08:00 Test Item Value Reference Range Interpretation Comments Alpha-Fetoprotein (test code 5.6 ng/mL <10.0 = 1834-1) JENNIFER (test code = JENNIFER) Medical Psychotherapist ID - DB Lab Interpretation (test Normal code = 05238-8) [facility] CenterALPHA FETOPROTEIN (AFP), TUMOR [id number] 18:08:00 Test Item Value Reference Range Interpretation Comments ALPHA-FETOPROTEIN (BEAKER) (test 5.6 ng/mL <10.0 code = 1094) Medical Psychotherapist ID - DBBASIC METABOLIC [id number] 16:31:00 Test Item Value Reference Range Interpretation [...] S NOT APPLICABLE FOR DIALYSIS PATIEN TS. Medical Psychotherapist ID - DBHEPATIC FUNCTION [id number] 16:31:00 Test Item Value Reference Range Interpretation [...] (test code = 19 U/L 6-55 347) Medical Psychotherapist ID - DBPROTHROMBIN TIME/[id number] 16:19:00 Test Item Value Reference Range Interpretation Comments PROTIME (BEAKER) 15.2 seconds 11.9-14.2 H (test code = 759) INR (BEAKER) (test 1.23 See_Comment [Automat ed message] code = 370) The system [employer] generated this result transmitted ref erence range: <=5.90. The reference range was not used to int erpret this result as normal/abnormal . Effective 03/08/2019: PT Reference Range ChangeNew: 11.9-14.2 Previous: 11.7- 14.7RECOMMENDED COUMADIN/WARFARIN INR THERAPY RANGESSTANDARD DOSE: 2.0-3.0 Includes: PROPHYLAXIS for venous thrombosis, systemic embolization; TREATMENT for venous thrombosis and/or pulmonary embolus.HIGH RISK: Target INR is 2.5-3.5 for patients wiht mechanical heart valves.CBC W/PLT COUNT & AUTO [id number] 16:11:00 Test Item Value Reference Range Interpretation [...] (BEAKER) (test code = 2801) POCT HEMOGLOBIN [id number] 20:47:00 Test Item Value Reference Range Interpretation Comments HEMOGLOBIN A1C (test code = 4548-4) 6.8 % 4.0-5.6 A Lab Interpretation (test code = Abnormal 93249-8) [facility] [id number] 19:51:00 Test Item Value Reference Range Interpretation Comments HEMOGLOBIN A1C (test code = 4548-4) 8.3 % 4-5.6 A Lab Interpretation (test code = Abnormal 44596-8) [facility] CenterCRYSTALS, URINE(SLEH)2020-09-02 00:00:00 Test Item Value Reference Range Interpretation Comments CALCIUM OXALATE NONE SEEN NONE OR FEW /HPF CRYSTALS (test code = 65863-7) TRIPLE PHOSPHATE NONE SEEN NONE OR FEW /HPF CRYSTALS (test code = 72444-0) URIC ACID CRYSTALS NONE SEEN NONE OR FEW /HPF (test code = 08833-0) AMORPHOUS SEDIMENT NONE SEEN NONE OR FEW /HPF (test code = 8246-1) CRYSTALS (test code = NONE SEEN /HPF No u rine crystals 66257-5) seen. REPORT COMMENT:SPLIT 08/31/2020 FROM [id number]: UNKNOWN Performed at: [facility] [address] [address] YONY LARA MD [facility] CenterHEMOGLOBIN [id number] 08:05:00 Test Item Value Reference Range Interpretation Comments HEMOGLOBIN A1C (test 9.8 % 4.2-5.6 H [employer] AN DIABETES code = 4548-4) ASSOCIATION G UIDELINES FOR HGB A1C: PREDIABETES/INC REASED RISK . . . . . . . 5.7-6.4% DIAGNO SIS OF DIABETES . . . . . . . . . >=6.5% WITH CONFIRMATION OR APPROPRIATE SYM PTOMS NOTE: ASSAY MAY BE AFFECTED BY HEMOGLOBINOPATH IES (SICKLE CELL AN EMIA, S-C DISEASE, OTHERS ) OR ARTIFICIALLY LO WERED BY DECREASED RED C ELL SURVIVAL (HEMOL YTIC ANEMIAS, BLOOD LOSS, ETC.). CONSIDER ALTERNATE TESTI NG OR LABORATORY CONS ULTATION. Unless Otherwis e Indicated, All Testing Performed At: [facility] [address] [place] [address] ator Director: Nikhil Montoya M.D. CLIA Number [id number] Cap Accreditation N o. [id number] Lab Interpretation Abnormal (test code = 94265-6) [facility]PO[facility] (AUT[facility]ATED)2020-05-26 16:21:00 Test Item Value Reference Range Interpretation Comments POCT GLU (test code = 4722255970) 207 mg/dL 70-110 H Lab Interpretation (test code = Abnormal 83986-3) [facility]2020-[facility] 13:22:00 Test Item Value Reference Range Interpretation Comments POCT GLU (test code = 8835215058) 171 mg/dL 70-110 H Lab Interpretation (test code = Abnormal 58616-8) [facility] WITH [id number] 10:50:00 Test Item Value Reference Range Interpretation [...] RDW-SD (test code = 47.2 fL 39-49.9 37019-2) RDW-CV (test code = 14.7 % 12-15.5 788-0) PLT (test code = See_Comment L [Automated 777-3) message] The sy stem which generated this result transmitted reference range : 166 - 358 10*3/ ?L. The reference r charlotte was not used to interpret this result as normal/abnormal . MPV (test code = 11.3 fL 9.5-12.9 65552-2) IPF % (test code = 6.6 % 1.3-7.7 Platelet count 5858471901) measured by fluorescence method. NRBC/100 WBC (test See_Comment [Automat ed code = 1576029925) message] The system which generated this result transmitted reference range : 0.0 - 10.0 /100 WBCs. The refer ence range was not u sed to interpret th is result as normal/abnormal . NRBC x10^3 (test code <0.01 See_Comment [Auto mated = 4363187232) message] The s ystem which generated this result transmitted reference range : 10*3/?L. The reference range was not used to interpret this result as normal/abnormal . GRAN MAT (NEUT) % 69.1 % (test code = 770-8) IMM GRAN % (test code 0.40 % = 4925842619) LYMPH % (test code = 21.8 % 736-9) MONO % (test code = 6.3 % 5905-5) EOS % (test code = 1.9 % 713-8) BASO % (test code = 0.5 % 706-2) GRAN MAT x10^3(ANC) 3.92 10*3/uL 1.88-7.09 (test code = 7119730445) IMM GRAN x10^3 (test <0.03 0-0.06 code = 3337853703) LYMPH x10^3 (test code 1.24 10*3/uL 1.32-3.29 [...] . Lab Interpretation Abnormal (test code = 44489-9) [facility] GLUCOSE (AUTOMATED)2020-05-26 01:56:00 Test Item Value Reference Range Interpretation Comments POCT GLU (test code = 5422767495) 202 mg/dL 70-110 H Lab Interpretation (test code = Abnormal 73001-6) [facility] GLUCOSE (AUTOMATED)2020-05-25 21:32:00 Test Item Value Reference Range Interpretation Comments POCT GLU (test code = 2436913808) 118 mg/dL 70-110 H Lab Interpretation (test code = Abnormal 29638-4) [facility] [id number] 17:30:43 1. ?No acute abdominal abnormality.EXAM: XR KUB HISTORY: SBO COMPARISON: None available FINDINGS: Cholecystectomy clips noted.An IVC filter projects over the infrarenal IVC region. The bowel gas distribution is nonspecific and not obstructed.Bones are mildly osteopenic and unremarkable. [facility], [facility] Inft User - 05/25/2020 12:31 PM CDTEXAM: XR KUBHISTORY: SBO COMPARISON: None availableFINDINGS:Cholecystectomy clips noted.An IVC filter projects over the infrarenal IVC region.The bowel gas distribution is nonspecific and not obstructed.Bones are mildly osteopenic and unremarkable.IMPRESSION1. No acute abdominal abnormality.[facility] GLUCOSE (AUTOMATED) 2020-05-25 16:47:00 Test Item Value Reference Range Interpretation Comments POCT GLU (test code = 1508519158) 138 mg/dL 70-110 H Lab Interpretation (test code = Abnormal 20717-6) [facility] GLUCOSE (AUTOMATED)2020-05-25 13:03:00 Test Item Value Reference Range Interpretation Comments POCT GLU (test code = 0253332269) 141 mg/dL 70-110 H Lab Interpretation (test code = Abnormal 93902-5) [facility] WITH [id number] 10:14:00 Test Item Value Reference Range Interpretation Comments WBC (test code = See_Comment [Automated 6690-2) message] The sy stem which generated this result transmitted reference range : 4.30 - 11.10 10*3/?L. The reference range was not used to interpret this result as normal/abnormal . RBC (test code = See_Comment [Automated 419-8) message] The sy stem which generated this [...] RDW-SD (test code = 48.3 fL 39-49.9 98865-5) RDW-CV (test code = 14.9 % 12-15.5 788-0) PLT (test code = See_Comment L [Automated 777-3) message] The sy stem which generated this result transmitted reference range : 166 - 358 10*3/ ?L. The reference r charlotte was not used to interpret this result as normal/abnormal . MPV (test code = 10.8 fL 9.5-12.9 20301-7) IPF % (test code = 6.6 % 1.3-7.7 Platelet count 4979926740) measured by fluorescence method. NRBC/100 WBC (test See_Comment [Automat ed code = 5323347634) message] The system which generated this result transmitted reference range : 0.0 - 10.0 /100 WBCs. The refer ence range was not u sed to interpret th is result as normal/abnormal . NRBC x10^3 (test code <0.01 See_Comment [Auto mated = 8366265661) message] The s ystem which generated this result transmitted reference range : 10*3/?L. The reference range was not used to interpret this result as normal/abnormal . GRAN MAT (NEUT) % 72.6 % (test code = 770-8) IMM GRAN % (test code 0.50 % = 7663975470) LYMPH % (test code = 18.9 % 736-9) MONO % (test code = 6.0 % 5905-5) EOS % (test code = 1.6 % 713-8) BASO % (test code = 0.4 % 706-2) GRAN MAT x10^3(ANC) 3.99 10*3/uL 1.88-7.09 (test code = 9544550707) IMM GRAN x10^3 (test 0.03 10*3/uL 0-0.06 code = 4267387807) LYMPH x10^3 (test code 1.04 10*3/uL 1.32-3.29 [...] . Lab Interpretation Abnormal (test code = 77479-0) [facility] METABOLIC PANEL (NA, K, CL, CO2, GLUCOSE, BUN, CREATININE, CA)2020-05-25 10:00:00 Test Item Value Reference Range Interpretation Comments NA (test code = 138 mmol/L 135-145 9123358772) K (test code = 3.6 mmol/L 3.5-5 4103473891) CL (test code = 106 mmol/L 98-108 4866620197) CO2 TOTAL (test code = 29 mmol/L 23-31 5522484968) AGAP (test code = 2-16 9060863849) BUN (test code = 9 mg/dL 7-23 7350104463) GLUCOSE (test code = 146 mg/dL 70-110 H 2351313541) CREATININE (test code = 0.55 mg/dL 0.5-1.04 4454519521) CALCIUM (test code = 8.0 mg/dL 8.6-10.6 L 8799230734) eGFR Calculation mL/min/1.73m2 (Non-) (test code = 2043989932) eGFR Calculation mL/min/1.73m2 () (test code = 8465362414) JENNIFER (test code = JENNIFER) Association of [...] tests). Lab Interpretation Abnormal (test code = 42711-7) [facility] GLUCOSE (AUTOMATED)2020-05-25 01:15:00 Test Item Value Reference Range Interpretation Comments POCT GLU (test code = 5194530729) 130 mg/dL 70-110 H Lab Interpretation (test code = Abnormal 39784-2) [facility] GLUCOSE (AUTOMATED)2020-05-24 21:17:00 Test Item Value Reference Range Interpretation Comments POCT GLU (test code = 4961310756) 149 mg/dL 70-110 H Lab Interpretation (test code = Abnormal 46681-4) [facility] GLUCOSE (AUTOMATED)2020-05-24 16:36:00 Test Item Value Reference Range Interpretation Comments POCT GLU (test code = 5143880882) 189 mg/dL 70-110 H Lab Interpretation (test code = Abnormal 86558-6) [facility] GLUCOSE (AUTOMATED)2020-05-24 12:38:00 Test Item Value Reference Range Interpretation Comments POCT GLU (test code = 0679018183) 190 mg/dL 70-110 H Lab Interpretation (test code = Abnormal 52314-4) [facility] WITH [id number] 10:26:00 Test Item Value Reference Range Interpretation [...] RDW-SD (test code = 49.6 fL 39-49.9 11027-9) RDW-CV (test code = 15.3 % 12-15.5 788-0) PLT (test code = See_Comment L [Automated 777-3) message] The sy stem which generated this result transmitted reference range : 166 - 358 10*3/ ?L. The reference r charlotte was not used to interpret this result as normal/abnormal . MPV (test code = 11.6 fL 9.5-12.9 32056-0) IPF % (test code = 7.9 % 1.3-7.7 H Platelet count 5979890560) measured by fluorescence method. NRBC/100 WBC (test See_Comment [Automat ed code = 6114546027) message] The system which generated this result transmitted reference range : 0.0 - 10.0 /100 WBCs. The refer ence range was not u sed to interpret th is result as normal/abnormal . NRBC x10^3 (test code <0.01 See_Comment [Auto mated = 8625936586) message] The s ystem which generated this result transmitted reference range : 10*3/?L. The reference range was not used to interpret this result as normal/abnormal . GRAN MAT (NEUT) % 70.1 % (test code = 770-8) IMM GRAN % (test code 0.40 % = 1058905728) LYMPH % (test code = 20.9 % 736-9) MONO % (test code = 5.7 % 5905-5) EOS % (test code = 2.3 % 713-8) BASO % (test code = 0.6 % 706-2) GRAN MAT x10^3(ANC) 4.83 10*3/uL 1.88-7.09 (test code = 4802793926) IMM GRAN x10^3 (test 0.03 10*3/uL 0-0.06 code = 8816309891) LYMPH x10^3 (test code 1.44 10*3/uL 1.32-3.29 = 731-0) MONO x10^3 (test code 0.39 10*3/uL 0.33-0.92 = 742-7) EOS x10^3 (test code = 0.16 10*3/uL 0.03-0.39 711-2) BASO x10^3 (test code 0.04 10*3/uL 0.01-0.07 = 704-7) Lab Interpretation Abnormal (test code = 80935-2) [facility] [id number] 10:23:00 Test Item Value Reference Range Interpretation Comments MAGNESIUM (test code = 3534003074) 1.5 mg/dL 1.7-2.4 L Lab Interpretation (test code = Abnormal 55410-5) [facility] METABOLIC PANEL (NA, K, CL, CO2, GLUCOSE, BUN, CREATININE, CA)2020-05-24 10:23:00 Test Item Value Reference Range Interpretation Comments NA (test code = 135 mmol/L 135-145 0078244160) K (test code = 3.6 mmol/L 3.5-5 9614959085) CL (test code = 103 mmol/L 98-108 9370921981) CO2 TOTAL (test code = 27 mmol/L 23-31 3231454370) AGAP (test code = 2-16 0718586219) BUN (test code = 7 mg/dL 7-23 9218571448) GLUCOSE (test code = 186 mg/dL 70-110 H 4950581838) CREATININE (test code = 0.49 mg/dL 0.5-1.04 L 0260034506) CALCIUM (test code = 8.0 mg/dL 8.6-10.6 L 7029550758) eGFR Calculation mL/min/1.73m2 (Non-) (test code = 6258942302) eGFR Calculation mL/min/1.73m2 () (test code = 3845716581) JENNIFER (test code = JENNIFER) Association of [...] tests). Lab Interpretation Abnormal (test code = 11535-5) [facility] GLUCOSE (AUTOMATED)2020-05-24 02:12:00 Test Item Value Reference Range Interpretation Comments POCT GLU (test code = 5044461055) 186 mg/dL 70-110 H Lab Interpretation (test code = Abnormal 31630-6) [facility] GLUCOSE (AUTOMATED)2020-05-23 22:10:00 Test Item Value Reference Range Interpretation Comments POCT GLU (test code = 0605799881) 196 mg/dL 70-110 H Lab Interpretation (test code = Abnormal 45405-9) [facility] GLUCOSE (AUTOMATED)2020-05-23 20:56:00 Test Item Value Reference Range Interpretation Comments POCT GLU (test code = 9209264104) 243 mg/dL 70-110 H Lab Interpretation (test code = Abnormal 84453-1) [facility] GLUCOSE (AUTOMATED)2020-05-23 17:11:00 Test Item Value Reference Range Interpretation Comments POCT GLU (test code = 2705160871) 288 mg/dL 70-110 H Lab Interpretation (test code = Abnormal 13882-1) [facility] [id number] 11:14:00 Test Item Value Reference Range Interpretation Comments PHOSPHORUS (test code = 9153143992) 3.6 mg/dL 2.5-5 Lab Interpretation (test code = Normal 95178-8) [facility] [id number] 11:02:00 Test Item Value Reference Range Interpretation [...] RDW-SD (test code = 48.1 fL 39-49.9 82240-3) RDW-CV (test code = 15.2 % 12-15.5 788-0) PLT (test code = See_Comment L [Automated 777-3) message] The sy stem which generated this result transmitted reference range : 166 - 358 10*3/ ?L. The reference r charlotte was not used to interpret this result as normal/abnormal . MPV (test code = 11.9 fL 9.5-12.9 88987-6) NRBC/100 WBC (test See_Comment [Automat ed code = 8800325972) message] The system which generated this result transmitted reference range : 0.0 - 10.0 /100 WBCs. The refer ence range was not u sed to interpret th is result as normal/abnormal . NRBC x10^3 (test code <0.01 See_Comment [Auto mated = 2675061067) message] The s ystem which generated this result transmitted reference range : 10*3/?L. The reference range was not used to interpret this result as normal/abnormal . GRAN MAT (NEUT) % 76.3 % (test code = 770-8) IMM GRAN % (test code 0.50 % = 1055844173) LYMPH % (test code = 15.8 % 736-9) MONO % (test code = 5.7 % 5905-5) EOS % (test code = 1.3 % 713-8) BASO % (test code = 0.4 % 706-2) GRAN MAT x10^3(ANC) 7.46 10*3/uL 1.88-7.09 H (test code = 7785548413) IMM GRAN x10^3 (test 0.05 10*3/uL 0-0.06 code = 3965003732) LYMPH x10^3 (test code 1.55 10*3/uL 1.32-3.29 = 731-0) MONO x10^3 (test code 0.56 10*3/uL 0.33-0.92 = 742-7) EOS x10^3 (test code = 0.13 10*3/uL 0.03-0.39 711-2) BASO x10^3 (test code 0.04 10*3/uL 0.01-0.07 = 704-7) Lab Interpretation Abnormal (test code = 08581-9) [facility] Whole [id number] 11:00:00 Test Item Value Reference Range Interpretation Comments LACTIC ACID (test code = 1.43 mmol/L QUE S 5621079113) [facility]2020-05-23 07:23:00 Test Item Value Reference Range Interpretation Comments SARS-CoV-2 Rapid ID NOW Not Detected Not Detected (test code = 78232-6) JENNIFER (test code = JENNIFER) ID NOW COVID-19 Assay is an isothermal nucleic acid amplification test intended for the qualitative detection of nucleic acid from SARS-CoV-2 viral RNA in nasopharyngeal (NATURAL GAS INSPECTOR) specimens. It is used under Emergency Use [...] indicated. Lab Interpretation Normal (test code = 52760-8) [facility] W [id number] 05:36:39 Dilated loops of distal jejunum and proximal ileum, to a transition pointin the right lower quadrant in the terminal ileum, suggestive of smallbowel obstruction. There are multiple prior partial smallbowel resections,with reanastomoses. IVC filter in place. RL: 460 AFC: [id number] Ordering physician: HUGH ERIC Indication: Acuteabdominal pain COMPARISON: None TECHNIQUE: Axial images of [...] There is atheroscleroticcalcification of the aorta without signif icant aneurysmal dilatation. There is no free fluid in the pelvis. The patient is status posthysterectomy. There are mildly dilated distal jejunum and proximal ileum,with some extension of small bowel loops into the patient's anteriorpelvis. There is a relative transition in bowel caliber in the termin alileum in the right lower quadrant (series 3, image 80; series 601, image60), with relative decompression of the colon. There are multiple priorpartial small bowel resections with re-anastomosis.. Theappendix is notseparately identified. Bone windows through the abdomen and pelvisdemonstrate no osseous destructive lesion. [facility], Radiant Results Inft User - 05/23/2020 12:37 AM CDTOrdering physician: HUGH GLOVERUIndication: Acute abdominal painCOMPARISON: NoneTECHNIQUE: Axial images of the abdomen and pelvis are performed followingadministration of intravenous contrast material. Images were reformat christopher inthe coronal and sagittal plane. CT scan was performed according to ALARA(as low as reasonably achievable) policy.FINDINGS: The lung bases are clear. The patient is status postcholecystectomy. Theliver, spleen, adrenal glands and pancreas are withinnormal limits. The kidneys are normal in appeara nce bilaterally withouthydronephrosis. IVC filter is in place. There is atheroscleroticcalcificationof the aorta without significant aneurysmal dilatation.There is no free fluid in the pelvis. The patient is status posthysterectomy. There are mildly dilated distal jejunum and proximal ileum,with someextension of small bowel loops into the patient's anteriorpelvis. There is a relative transition in bowel caliber in the terminalileum in the right lower quadrant (series 3, image 80; series 601, image60), with relative decompression of the colon. There are multiple priorpartial small bowel resectionswith re-anastomosis.. The appendix is notseparately identified. Bone windows through the abdomen andpelvisdemonstrate no osseous destructive lesion.IMPRESSIONDilated loops of distal jejunum and proximal ileum, to a transition pointin the right lower quadrant in the terminal ileum, suggestive of smallbowel obstruction. There are multiple prior partial small bowel resections,with reanastomoses.IVC filter in place.RL: [id number]: [id number] [facility] 04:48:00 Test Item Value Reference Range Interpretation Comments APPEARANCE (test code = Clear Clear 7295143620) COLOR (test code = Yellow Yellow 2463635883) PH (test code = 4.8-8.0 1690635500) SP GRAVITY (test code = 1.003-1.030 0001104543) GLU U QUAL (test code = 150 mg/dL Normal A 6127095434) BLOOD (test code = Negative Negative 8362017297) KETONES (test code = Negative Negative 6397382935) PROTEIN (test code = Negative Negative 2887-8) UROBILIN (test code = 2.0 mg/dL Normal A 9750690169) BILIRUBIN (test code = Negative Negative 6302046396) NITRITE (test code = Negative Negative 7630313375) LEUK MICHI (test code = Negative Negative 0957863289) RBC/HPF (test code = See_Comment [Autom ated message] 1476083477) The system [employer] generated this result transmit christopher reference range : 0 - 3 HPF. The refe rence range was not u sed to interpret th is result as normal/abnormal . WBC/HPF (test code = See_Comment [Autom ated message] 1491376772) The system [employer] generated this result transmit christopher reference range : 0 - 5 HPF. The refe rence range was not u sed to interpret th is result as normal/abnormal . BACTERIA (test code = Few Negative A 5078728469) SQ EPITH (test code = See_Comment [Auto mated message] 5708638704) The system [employer] generated this result transmit christopher reference range : <=2 HPF. The refere nce range was not u sed to interpret th is result as normal/abnormal . ASCORBIC ACID (test code Negative = 2935580377) Lab Interpretation (test Abnormal code = 34527-0) [facility] [id number] 04:32:00 Test Item Value Reference Range Interpretation Comments TROPONIN I (test 0.002 ng/mL See_Comment [Automated code = 5330429472) message] The system which generated this result [...] ? Lab Interpretation Normal (test code = 72474-2) [facility]. METABOLIC PANEL (06352)2020-05-23 04:21:00 Test Item Value Reference Range Interpretation Comments NA (test code = 135 mmol/L 135-145 7542232085) K (test code = 4.1 mmol/L 3.5-5 1562615163) CL (test code = 100 mmol/L 98-108 1861513112) CO2 TOTAL (test code = 30 mmol/L 23-31 5823802380) AGAP (test code = 2-16 5513996571) BUN (test code = 12 mg/dL 7-23 8415693456) GLUCOSE (test code = 302 mg/dL 70-110 H 4173608187) CREATININE (test code = 0.58 mg/dL 0.5-1.04 2175953367) TOTAL BILI (test code = 1.3 mg/dL 0.1-1.1 H 6115487408) CALCIUM (test code = 8.6 mg/dL 8.6-10.6 0977973512) T PROTEIN (test code = 7.2 g/dL 6.3-8.2 6017680907) ALBUMIN (test code = 3.8 g/dL 3.5-5 3381664052) ALK PHOS (test code = 100 U/L 34-122 9909044047) ALTv (test code = 21 U/L 5-35 1742-6) AST(SGOT) (test code = 24 U/L 13-40 1502684557) eGFR Calculation mL/min/1.73m2 (Non-) (test code = 1131296211) eGFR Calculation mL/min/1.73m2 () (test code = 4732147560) JENNIFER (test code = JENNIFER) Association of [...] tests). Lab Interpretation Abnormal (test code = 09395-7) [facility] WITH [id number] 04:09:00 Test Item Value Reference Range Interpretation Comments WBC (test code = See_Comment [Automated 3490-2) message] The sy stem which generated this [...] RDW-SD (test code = 47.4 fL 39-49.9 20614-1) RDW-CV (test code = 15.0 % 12-15.5 788-0) PLT (test code = See_Comment L [Automated 777-3) message] The sy stem which generated this result transmitted reference range : 166 - 358 10*3/ ?L. The reference r charlotte was not used to interpret this result as normal/abnormal . MPV (test code = 11.9 fL 9.5-12.9 48709-6) NRBC/100 WBC (test See_Comment [Automat ed code = 6458953290) message] The system which generated this result transmitted reference range : 0.0 - 10.0 /100 WBCs. The refer ence range was not u sed to interpret th is result as normal/abnormal . NRBC x10^3 (test code <0.01 See_Comment [Auto mated = 1098804172) message] The s ystem which generated this result transmitted reference range : 10*3/?L. The reference range was not used to interpret this result as normal/abnormal . GRAN MAT (NEUT) % 78.8 % (test code = 770-8) IMM GRAN % (test code 0.80 % = 2417494720) LYMPH % (test code = 13.9 % 736-9) MONO % (test code = 4.9 % 5905-5) EOS % (test code = 1.1 % 713-8) BASO % (test code = 0.5 % 706-2) GRAN MAT x10^3(ANC) 6.61 10*3/uL 1.88-7.09 (test code = 4139787007) IMM GRAN x10^3 (test 0.07 10*3/uL 0-0.06 H code = 3462938565) LYMPH x10^3 (test code 1.17 10*3/uL 1.32-3.29 L = 731-0) MONO x10^3 (test code 0.41 10*3/uL 0.33-0.92 = 742-7) EOS x10^3 (test code = 0.09 10*3/uL 0.03-0.39 711-2) BASO x10^3 (test code 0.04 10*3/uL 0.01-0.07 = 704-7) Lab Interpretation Abnormal (test code = 40404-5) [facility], NON-SPECIFIC, UP TO 1 HOUR 2020-03-07 14:34:00Referring: Shawnee Alvares for exam:->ORIF right ring fingerFINAL REPORT TECHNIQUE: Fluoroscopic images from orthopedic procedure. INDICATION: Surgery. COMPARISON: None. IMPRESSION:Fluoroscopic images from orthopedic procedure, not obtainedby the undersigned. Please refer to operative note for more details of the procedure and findings. Fluoroscopy time: 150 secondsNumber of images: Two Signed: Benjy Sanchez MDRepcedar [facility] Verified Date/Time: 03/07/2020 14:34:58 POCT-GLUCOSE [id number] 12:14:00 Test Item Value Reference Range Interpretation Comments POC-GLUCOSE METER 221 mg/dL 70-110 H : Notified RN/MD: TESTED (SERGIO) (test code AT [facility] [address] = 1538) [facility] [address]: Medical Psychotherapist/Techni melissa ID = [id number] for Antonia Kauffman PT/[id number] 10:10:00 Test Item Value Reference Range Interpretation Comments PROTIME (SERGIO) (test code = 759) < sec 9.8-12.0 INR (SERGIO) (test code = 370) 1.0 INR <=5.9 PARTIAL THROMBOPLASTIN TIME 25.4 sec 25.8-34.5 L (WAYNEAKER) (test code = 760) RECOMMENDED COUMADIN/WARFARIN INR THERAPY RANGESSTANDARD DOSE: 2.0 - 3.0 Includes: PROPHYLAXIS for venous thrombosis, systemic embolization; TREATMENT for venous thrombosis and/or pulmonary embolus.HIGH RISK: Target INR is 2.5-3.5 for patients with mechanical heart valves.POCT-GLUCOSE [id number] 09:49:00 Test Item Value Reference Range Interpretation Comments POC-GLUCOSE METER 227 mg/dL 70-110 H : TESTED A T [facility] [address] (SERGIO) (test code CHRISTINE Ribeiro BLJUAN JOSÉ A, = 1538) [facility] 7[address] 0: Medical Psychotherapist/Techni melissa ID = [id number] for Narv as, Bong US ABDOMEN [id number] 22:16:00IMPRESSION:Fatty cirrhotic liver with portal hypertension and trace ascites. No focal liver lesion. Signed: Cari Cordero MDReport Verified Date/Time: 11/20/2019 16:16:10 Reading Location: [address] Radiology Reading Room L REPORT TECHNIQUE: Grayscale ultrasound of the abdomen. INDICATION: 54-year-old woman with cirrhosis. COMPARISON: Chest, abdomen, and pelvis CT 05/27/2019; abdomen ultrasound 11/12. FINDINGS: MIDLINE VASCULATURE: The visualized inferior vena [...] hydronephrosis. No sonographically evident solid mass lesion. Pedro, Rad [...] MDReport Verified Date/Time: 11/20/2019 16:16:10 Reading Location: [address] Radiology Reading Room [facility] COMPLE[facility] 2019-11-20 16:16:00Referring: DOROTA Alvares-CCirrhosis assess for HCCReason for Exam:->CirrhosisFINAL REPORT TECHNIQUE: Grayscale ultrasound of the abdomen. INDICATION: 54-year-old woman with cirrhosis. COMPARISON: Chest, abdomen, and pelvis CT 05/27/2019; abdomen ultrasound . FINDINGS: MIDLINE VASCULATURE: The visualized inferior vena cava is patent. Portal vein is patent and prominent, measuring 1.4 cm in diameter. The maximum visualized aortic diameter is 2.4 cm.LIVER: The liver is prominent and measures 21.1 cm. The liver is increased in echogenicity with subtle nodular contour. No focal lesions. BILIARY:Gallbladder: Prior cholecystectomy.Common bile duct measures 0.7 cm, within normal limits. No intrahepatic biliary ductal dilatation. PANCREAS: The pancreasis not clearly visualized due to overlying bowel gas. SPLEEN: The spleen is prominent and measures 16.3 cm. PERITONEUM: Trace ascites. KIDNEYS: Both kidneys are normal in size. No hydronephrosis. No sonographically evident solid mass lesion. IMPRESSION:Fatty cirrhotic liver with portal hypertension and trace ascites. No focal liver lesion. Signed: Cari Cordero MDReport Verified Date/Time: 11/20/2019 16:16:10 Reading Location: [address] Radiology Reading Room HEPATITIS B VIRAL DNA QUANT [id number] 19:54:00 Test Item Value Reference Range Interpretation Comments RESULT/COMMENT HBV DNA not detected HBV DNA not detected (test code = 8976) JENNIFER (test code = This test uses a JENNIFER) Real-Time Polymerase Chain Reaction (RT-PCR) methodology and was performed using ANNY AmpliPrep/ANNY TaqMan HBV Test, v2.0 ([employer]Reportable range for this assay is 20 - 170,000,000 IU per mL (1.30 - 8.23 Log IU/mL). [facility] PCR, [id number] 13:54:00 Test Item Value Reference Range Interpretation Comments HBV RESULT COMPONENT HBV DNA not detected HBV DNA not detected (BEAKER) (test code = 2701) This test uses a Real-Time Polymerase Chain Reaction (RT-PCR) methodology and was performed using ANNY AmpliPrep/ANNY TaqMan HBV Test, v2.0 ([employer]Reportable range for this assay is 20 - 170,000,000 IU per mL (1.30 - 8.23 Log IU/mL).HEPATITIS B SURFACE AB [id number] 04:20:00 Test Item Value Reference Range Interpretation Comments HEP BS ANTIBODY (test See_Comment H [Auto mated code = 4191264) message] The system which generated this result transmit christopher reference range : <8.0 mIU/mL. Th e reference range was not used to interpret this result as normal/abnormal . JENNIFER (test code = JENNIFER) Medical Psychotherapist ID - DB Lab Interpretation Abnormal (test code = 20948-0) [facility] CenterHEPAT[facility]IS [facility] SUR[facility] AB [id number] 04:20:00 Test Item Value Reference Range Interpretation Comments HEP BS ANTIBODY (test See_Comment H [Auto mated code = 8357453) message] The system which generated this result transmit christopher reference range : <8.0 mIU/mL. Th e reference range was not used to interpret this result as normal/abnormal . JENNIFER (test code = JENNIFER) Medical Psychotherapist ID - DB Lab Interpretation Abnormal (test code = 48974-1) [facility] CenterHEP[facility] SURFACE [id number] 04:18:00 Test Item Value Reference Range Interpretation Comments HEP B SURFACE ANTIGEN (REFL) Nonreactive Nonreactive (test code = 7961) JENNIFER (test code = JENNIFER) Medical Psychotherapist ID - DB [facility] CenterAFP TUMOR [id number] 04:18:00 Test Item Value Reference Range Interpretation Comments AFP (test code = 4799305) 5.6 ng/mL <10.0 JENNIFER (test code = JENNIFER) Medical Psychotherapist ID - DB [facility]HEP[facility] SURFACE [id number] 04:18:00 Test Item Value Reference Range Interpretation Comments HEP B SURFACE ANTIGEN (REFL) Nonreactive Nonreactive (test code = 7961) JENNIFER (test code = JENNIFER) Medical Psychotherapist ID - DB [facility] CenterAFP TUMOR [id number] 04:18:00 Test Item Value Reference Range Interpretation Comments AFP (test code = 2966645) 5.6 ng/mL <10.0 JENNIFER (test code = JENNIFER) Medical Psychotherapist ID - DB [facility] CenterHEPAT[facility]IS [facility] SURFACE [id number] 22:20:00 Test Item Value Reference Range Interpretation Comments HEPATITIS B SURFACE ANTIBODY 1064.1 mIU/mL <8.0 H (BEAKER) (test code = 647) Medical Psychotherapist ID - DBHEPATITIS B SURFACE [id number] 22:18:00 Test Item Value Reference Range Interpretation Comments HEPATITIS B SURFACE ANTIGEN (2) Nonreactive Nonreactive (BEAKER) (test code = 2585) Medical Psychotherapist ID - DBALPHA FETOPROTEIN (AFP), TUMOR [id number] 22:18:00 Test Item Value Reference Range Interpretation Comments ALPHA-FETOPROTEIN (BEAKER) (test 5.6 ng/mL <10.0 code = 1094) Medical Psychotherapist ID - DBBASIC METABOLIC [id number] 21:50:00 Test Item Value Reference Range Interpretation Comments SODIUM (test code = 136 meq/L 136-145 95063-4) POTASSIUM (test code = 4.1 meq/L 3.5-5.1 6298-4) CHLORIDE (test code = 102 meq/L 98-107 2069-3) CO2 (test code = 26 meq/L 22-29 8-9) BLOOD UREA NITROGEN 10 mg/dL 7-21 (test code = 00592-2) CREATININE (test code 0.76 mg/dL 0.57-1.25 = 23418-4) GLUCOSE (test code = 341 mg/dL 70-105 H 65730-0) CALCIUM (test code = 9.7 mg/dL 8.4-10.2 26242-7) EGFR (test code = mL/min/1.73 [place] [address]-8) NOT ACCURATE CREATININE CLEARANCE IN PREDICTING GLOMERULAR FILTRATION RATE . ESTIMATED GFR I S NOT APPLICABLE FOR DIALYSIS PATIENTS. JENNIFER (test code = JENNIFER) Medical Psychotherapist ID - BS Lab Interpretation Abnormal (test code = 63314-5) [facility] CenterHEPATIC FUNCTION [id number] 21:50:00 Test Item Value Reference Range Interpretation Comments TOTAL PROTEIN (test See_Comment [Automa christopher code = 9376507) message] The system which generated this result transmit christopher reference range : 6.0 - 8.3 gm/dL . The reference range was not u sed to interpret th is result as normal/abnormal . ALBUMIN (test code = 4.0 g/dL 3.5-5 1751-7) BILIRUBIN TOTAL (test 1.4 mg/dL 0.2-1.2 H code = 1974-2) BILIRUBIN DIRECT 0.7 mg/dL 0.1-0.5 H (test code = 2518843) ALKALINE PHOSPHATASE 111 U/L 40-150 (test code = 6768-6) AST (SGOT) (test code 38 U/L 5-34 H = 1920-8) ALT (SGPT) (test code 36 U/L 6-55 = 1742-6) JENNIFER (test code = JENNIFER) Medical Psychotherapist ID - BS Lab Interpretation Abnormal (test code = 15777-7) [facility] CenterBASIC METABOLIC [id number] 21:50:00 Test Item Value Reference Range Interpretation Comments SODIUM (test code = 136 meq/L 136-145 10108-3) POTASSIUM (test code = 4.1 meq/L 3.5-5.1 6298-4) CHLORIDE (test code = 102 meq/L 98-107 2069-3) CO2 (test code = 26 meq/L 22-29 8-9) BLOOD UREA NITROGEN 10 mg/dL 7-21 (test code = 61878-6) CREATININE (test code 0.76 mg/dL 0.57-1.25 = 55630-4) GLUCOSE (test code = 341 mg/dL 70-105 H 05345-7) CALCIUM (test code = 9.7 mg/dL 8.4-10.2 61029-6) EGFR (test code = mL/min/1.73 [place] [address]-1) NOT ACCURATE CREATININE CLEARANCE IN PREDICTING GLOMERULAR FILTRATION RATE . ESTIMATED GFR I S NOT APPLICABLE FOR DIALYSIS PATIENTS. JENNIFER (test code = JENNIFER) Medical Psychotherapist ID - BS Lab Interpretation Abnormal (test code = 55260-4) [facility] CenterHEPATIC FUNCTION [id number] 21:50:00 Test Item Value Reference Range Interpretation Comments TOTAL PROTEIN (test See_Comment [Automa christopher code = 5215713) message] The system which generated this result transmit christopher reference range : 6.0 - 8.3 gm/dL . The reference range was not u sed to interpret th is result as normal/abnormal . ALBUMIN (test code = 4.0 g/dL 3.5-5 1751-7) BILIRUBIN TOTAL (test 1.4 mg/dL 0.2-1.2 H code = 1974-2) BILIRUBIN DIRECT 0.7 mg/dL 0.1-0.5 H (test code = 9934112) ALKALINE PHOSPHATASE 111 U/L 40-150 (test code = 6768-6) AST (SGOT) (test code 38 U/L 5-34 H = 1920-8) ALT (SGPT) (test code 36 U/L 6-55 = 1742-6) JENNIFER (test code = JENNIFER) Medical Psychotherapist ID - BS Lab Interpretation Abnormal (test code = 59045-2) [facility] CenterPROTIME-[id number] 21:33:00 Test Item Value Reference Interpretation Comments Range PROTIME (test code = See_Comment H [Autom ated 04406-9) message] The system which generated this result transmitted reference range : 11.9 - 14.2 seconds. The reference range was not used to interpret this result as normal/abnormal . INR (test code = See_Comment [Automated 58108-0) message] The system which generated this result [...] valves. Lab Interpretation Abnormal (test code = 79433-1) [facility] CenterPROTIME-[id number] 21:33:00 Test Item Value Reference Interpretation Comments Range PROTIME (test code = See_Comment H [Autom ated 48487-0) message] The system which generated this result transmitted reference range : 11.9 - 14.2 seconds. The reference range was not used to interpret this result as normal/abnormal . INR (test code = See_Comment [Automated 41272-0) message] The system which generated this result [...] valves. Lab Interpretation Abnormal (test code = 63156-6) [facility] CenterHEPATIC FUNCTION [id number] 15:50:00 Test Item Value Reference Range Interpretation [...] (test code = 36 U/L 6-55 347) Medical Psychotherapist ID - BSBASIC METABOLIC [id number] 15:50:00 Test Item Value Reference Range Interpretation [...] S NOT APPLICABLE FOR DIALYSIS PATIEN TS. Medical Psychotherapist ID - BSPROTHROMBIN TIME/[id number] 15:33:00 Test Item Value Reference Range Interpretation [...] is 2.5-3.5 for patients wiht mechanical heart valves.CBC W/PLT COUNT & AUTO [id number] 15:04:00 Test Item Value Reference Range Interpretation [...] (test code = 2801) CT ABD/PEL WITH QBHIGAOX-[id number] 20:20:00 [place] [address] Patient Name: MARLYS GARNETT MR #: [id number] : 1965 Age/Sex: 54/F Req #: [id number] Adm Physician: Ordered by: TRAY AVENDAÑO MD Report #: [id number] Location: [facility] Room/Bed: Procedure: [id number] HOPD/CT ABD/PEL WITH CONTRAST-[facility] Exam Date: 11/06/19 Exam Time: 1959 REPORT [...] No focal masses or ductal dilatation. ADRENALS: Noadrenal nodules. KIDNEYS/URETERS: No obstruction. Punctate left renal [...] AVENDAÑO MDOCT, RETINA - OU - BOTH [id number] 21:47:26OD: 240, no fluidOS: 238, no fluidBaylnm College of [facility] HospitalOCT, RETINA - OU - BOTH [id number] 21:47:26 OD: 240, no fluidOS: 238, no fluidBaday [facility]OCT, RETINA - OU - BOTH [id number] 21:47:26OD: 240, no fluidOS: 238, no fluidBaylMonterey Park Hospital of [facility] HospitalFINGER RT - [id number] 18:59:00 [place] [address] Patient Name: MARLYS GARNETT MR #: [id number] : 1965 Age/Sex: 54/F Req #: [id number] Adm Physician: Ordered by: ADÁN MARTIN MD Report #: [id number] Location: [facility] Room/Bed: Procedure: [id number] HOPD/FINGER RT - HOPD Exam Date: 09/11/19 [...] GAYATRI on 09/11/191901 COPY TO: ADÁN MARTIN [id number] 17:12:53 Test Item Value Reference Range Interpretation Comments CRYOGLOBULIN (test NEGATIVE NEGATIVE Prelimina ry result is code = 5117-7) negative for Cryoglobulins; further reports willnot be generated until the study is comple christopher at 7 days. FINAL REPORT (test NEGATIVE NEGATIVE Unless O therwise code = 65008) Indicated, All Testing Performed At: [facility] Pathology [place] [id number] Madelaine patel Director: Nikhil Montoya M.D. CLIA Number [id number] Cap Accreditation N o. [address]-21 [facility] CenterPcpvsmypTCINXSKIOTPS3296-16-17 17:12:53 Test Item Value Reference Range Interpretation Comments CRYOGLOBULIN (test NEGATIVE NEGATIVE Prelimina ry result is code = 5117-7) negative for Cryoglobulins; further reports willnot be generated until the study is comple christopher at 7 days. FINAL REPORT (test NEGATIVE NEGATIVE Unless O therwise code = 25041) Indicated, All Testing Performed At: [facility], [address] [place] [address] Madel[place] patel Director: Nikhil Montoya M.D. CLIA Number [id number] Cap Accreditation N o. [facility] CenterKomwbiqtSANINWMVSBYA4531-66-43 17:12:53 Test Item Value Reference Range Interpretation Comments CRYOGLOBULIN (test NEGATIVE NEGATIVE Prelimina ry result is code = 5117-7) negative for Cryoglobulins; further reports willnot be generated until the study is comple christopher at 7 days. FINAL REPORT (test NEGATIVE NEGATIVE Unless O therwise code = 60979) Indicated, All Testing Performed At: [facility], [address] [place] [address] [facility] Director: Nikhil Montoya M.D. CLIA Number [id number] Cap Accreditation N o. [facility] CenterANTI NEUTROPHIL CYTOPLASMIC [id number] 04:21:50 Test Item Value Reference Range Interpretation Comments NEUTROPHIL CYTOPLASMIC <1:10 See_Comment [Aut omated message] The ANTIBODIES (test code = syst em which generated 44428-3) this result tra nsmitted reference range : <1:10. The reference r charlotte was not used to int erpret this result as normal/abnormal . INTERPRETATION (test (NOTE) Negativ e ANCA test code = 3017) excludes cytopl asmic (C-ANCA) and perinuclear(P-A NCA). Serine protease 3 (PR3) and myeloperoxi dase (MPO) antibodyt esting is not routinely i ndicated. A negative ANCA test is expectedin most healthy individuals; ho wever, it does not comple tely excludethe pres ence of systemic vascul itis. Some vasculitis patients havecontinuousl y positive ANCA w ithout disease activit y, while others withacti ve disease are ANC A negative. For s elected patients with a highclinical siegel spicion for vasculitis, non-reflexed GA 3 and MPO antibodytesting may be indicated. Unle ss Otherwise Indic ated, All Testing Perform ed At: [facility], [address] [place] [address] Laboratory Dire ctor: Nikhil marti M.D. CLIA Number [id number] Cap Accreditati on No. [facility] CenterANTI NEUTROPHIL CYTOPLASMIC [id number] 04:21:50 Test Item Value Reference Range Interpretation Comments NEUTROPHIL CYTOPLASMIC <1:10 See_Comment [Aut omated message] The ANTIBODIES (test code = syst em which generated 90337-5) this result tra nsmitted reference range : <1:10. The reference r charlotte was not used to int erpret this result as normal/abnormal . INTERPRETATION (test (NOTE) Negativ e ANCA test code = 3017) excludes cytopl asmic (C-ANCA) and perinuclear(P-A NCA). Serine protease 3 (PR3) and myeloperoxi dase (MPO) antibodyt esting is not routinely i ndicated. A negative ANCA test is expectedin most healthy individuals; ho wever, it does not comple tely excludethe pres ence of systemic vascul itis. Some vasculitis patients havecontinuousl y positive ANCA w ithout disease activit y, while others withacti ve disease are ANC A negative. For s elected patients with a highclinical siegel spicion for vasculitis, non-reflexed GA 3 and MPO antibodytesting may be indicated. Unle ss Otherwise Indic ated, All Testing Perform ed At: [facility], [address] [place] [address] Laboratory Dire ctor: Nikhil marti M.D. CLIA Number [id number] [place]. [id number] [facility]MIC [id number] 04:21:50 Test Item Value Reference Range Interpretation Comments NEUTROPHIL CYTOPLASMIC <1:10 See_Comment [Aut omated message] The ANTIBODIES (test code = syst em which generated 21487-1) this result tra nsmitted reference range : <1:10. The reference r charlotte was not used to int erpret this result as normal/abnormal . INTERPRETATION (test (NOTE) Negativ e ANCA test code = 3017) excludes cytopl asmic (C-ANCA) and perinuclear(P-A NCA). Serine protease 3 (PR3) and myeloperoxi dase (MPO) antibodyt esting is not routinely i ndicated. A negative ANCA test is expectedin most healthy individuals; ho wever, it does not comple tely excludethe pres ence of systemic vascul itis. Some vasculitis patients havecontinuousl y positive ANCA w ithout disease activit y, while others withacti ve disease are ANC A negative. For s elected patients with a highclinical siegel spicion for vasculitis, non-reflexed GA 3 and MPO antibodytesting may be indicated. Unle ss Otherwise Indic ated, All Testing Perform ed At: [facility], [address] [place] [address] Laboratory Dire ctor: Nikhil marti M.D. CLIA Number [id number] Cap Accreditati on No. [facility] MODIFIED [id number] 11:01:14 Test Item Value Reference Range Interpretation Comments ERYTHROCYTE See_Comment H Unless Otherwi se SEDIMENTATION RATE (test Ind icated, All code = 4537-7) Testing Perfo rmed At: [facility], [address] [place] [address] Laborator y Director: Nikhil Montoya M.D. CLIA Number [id number] Cap Accreditation N o. [Autom ated message] The sy stem which generated this result transmit christopher reference range : 0 - 20 MM/HOUR. The reference range was not used to int erpret this result as normal/abnormal . Lab Interpretation (test Abnormal code = 32186-8) [facility] MODIFIED [id number] 11:01:14 Test Item Value Reference Range Interpretation Comments ERYTHROCYTE See_Comment H Unless Otherwi se SEDIMENTATION RATE (test Ind icated, All code = 4537-7) Testing Perfo rmed At: [facility], [address] [place] [address] Laborator y Director: Nikhil Montoya M.D. CLIA Number [id number] Cap Accreditation N o. [Autom ated message] The sy stem which generated this result transmit christopher reference range : 0 - 20 MM/HOUR. The reference range was not used to int erpret this result as normal/abnormal . Lab Interpretation (test Abnormal code = 30684-6) [facility] MODIFIED [id number] 11:01:14 Test Item Value Reference Range Interpretation Comments ERYTHROCYTE See_Comment H Unless Otherwi se SEDIMENTATION RATE (test Ind icated, All code = 4537-7) Testing Perfo rmed At: [facility], [address] [place] [address] Laborator y Director: Nikhil Montoya M.D. CLIA Number [id number] Cap Accreditation N o. [id number] [Autom ated message] The sy stem which generated this result transmit christopher reference range : 0 - 20 MM/HOUR. The reference range was not used to int erpret this result as normal/abnormal . Lab Interpretation (test Abnormal code = 49178-2) [facility] 09:[facility]00 Test Item Value Reference Range Interpretation Comments CREATINE KINASE TOTAL 60 U/L 28-176 Unles s Otherwise (test code = 2157-6) Indicat ed, All Testing Performed At: [facility], [address] [place] [address] Laborator y Director: Nikhil marti M.D. CLIA Number [id number] Cap Accreditation N o. [id number] [facility] [id number] 09:43:00 Test Item Value Reference Range Interpretation Comments C-REACTIVE PROTEIN (test See_Comment H Un less Otherwise code = 1988-5) Indicated, Al l Testing Perform ed At: [facility], [address] [place] [address] Laborator y Director: Nikhil Montoya M.D. CLIA Number [id number] Cap Accreditation N o. [id number] [Autom ated message] The sy stem which generated this result transmit christopher reference range : <0.5 MG/DL. The refe rence range was not u sed to interpret this result as normal/abnor mal. Lab Interpretation (test Abnormal code = 68161-5) [facility] C3 AND [id number] 09:43:00 Test Item Value Reference Range Interpretation Comments C3 COMPLEMENT (test code See_Comment [A utomated message] The = 4491-7) system which ge nerated this result tra nsmitted reference range : 90 - 180 MG/DL. The reference range was not u sed to interpret this result as normal/abnormal . C4 COMPLEMENT (test code See_Comment Un less Otherwise = 4498-2) Indicated, All Testing Performed At: [facility], [address] [place] [address] Labora tory Director: Nikhil Montoya M.D. CLIA Number [id number] Cap Accreditation N o. [id number] [Autom ated message] The sy stem which generated this result transmit christopher reference range : 10 - 40 MG/DL. The refe rence range was not u sed to interpret this result as normal/abnormal . [facility] 09:43:00 Test Item Value Reference Range Interpretation Comments CREATINE KINASE TOTAL 60 U/L 28-176 Unles s Otherwise (test code = 2157-6) Indicat ed, All Testing Performed At: [facility], [address] [place] [address] Laborator y Director: Nikhil marti M.D. CLIA Number [id number] Cap Accreditation [place]. [id number] [facility] [id number] 09:43:00 Test Item Value Reference Range Interpretation Comments C-REACTIVE PROTEIN (test See_Comment H U nless Otherwise code = 1988-5) Indicated, Al l Testing Perform ed At: [facility], [address] [place] [address] Laborator y Director: Nikhil Montoya M.D. CLIA Number [id number] Cap Accreditation N o. [id number] [Autom ated message] The sy stem which generated this result transmit christopher reference range : <0.5 MG/DL. The refe rence range was not u sed to interpret this result as normal/abnor mal. Lab Interpretation (test Abnormal code = 03611-6) [facility] C[facility] AND [id number] 09:43:00 Test Item Value Reference Range Interpretation Comments C3 COMPLEMENT (test code See_Comment [A utomated message] The = 4491-7) system which ge nerated this result tra nsmitted reference range : 90 - 180 MG/DL. The reference range was not u sed to interpret this result as normal/abnormal . C4 COMPLEMENT (test code See_Comment Un less Otherwise = 4498-2) Indicated, All Testing Performed At: [facility], [address] [place] [address] tor Director: Nikhil Montoya M.D. CLIA Number [id number] Cap Accreditation N o. [id number] [Autom ated message] The sy stem which generated this result transmit christopher reference range : 10 - 40 MG/DL. The refe rence range was not u sed to interpret this result as normal/abnormal . [facility] 09:43:00 Test Item Value Reference Range Interpretation Comments CREATINE KINASE TOTAL 60 U/L 28-176 Unles s Otherwise (test code = 2157-6) Indicat ed, All Testing Performed At: [facility], [address] [place] [address] Laborator y Director: Nikhil marti M.D. CLIA Number [id number] Cap Accreditation N o. [id number] [facility] [id number] 09:43:00 Test Item Value Reference Range Interpretation Comments C-REACTIVE PROTEIN (test See_Comment H Un less Otherwise code = 1988-5) Indicated, Al l Testing [facility]form ed At[facility], [address] [place] [id number] Laborator y Director: Nikhil Montoya M.D. CLIA Number [id number] Cap Accreditation N o. [id number] [Autom ated message] The sy stem which generated this result transmit christopher reference range : <0.5 MG/DL. The refe rence range was not u sed to interpret this result as normal/abnor mal. Lab Interpretation (test Abnormal code = 37442-7) [facility] AND [id number] 09:43:00 Test Item Value Reference Range Interpretation Comments C3 COMPLEMENT (test code See_Comment [A utomated message] The = 4491-7) system which ge nerated this result tra nsmitted reference range : 90 - 180 MG/DL. The reference range was not u sed to interpret this result as normal/abnormal . C4 COMPLEMENT (test code See_Comment Un less Otherwise = 4498-2) Indicated, All Testing Performed At: [facility], [address] [place] [address] Labora tory Director: Nikhil Montoya M.D. IA Number [id number] Cap Accreditation N o. [id number] [Autom ated message] The sy stem which generated this result transmit christopher reference range : 10 - 40 MG/DL. The refe rence range was not u sed to interpret this result as normal/abnormal . [facility] CenterCOMPREH[facility]IVE METABOLIC [id number] 09:34:20 Test Item Value Reference Range Interpretation Comments GLUCOSE (test code = See_Comment H [Autom ated message] 2345-7) The system [employer] generated this result transmitted ref erence range: 70 - 99 MG/DL. The reference r charlotte was not used to interpret this result as normal/abnor mal. BLOOD UREA NITROGEN See_Comment [Automa christopher message] (test code = 3091-6) The s tem which generated this result transmitted ref erence range: 6 - 20 M G/DL. The reference r charlotte was not used to interpret this result as normal/abnor mal. CREATININE (test code = See_Comment [Au tomated message] 2160-0) The system [employer] generated this result transmitted ref erence range: 0.60 - 1 .30 MG/DL. The refe rence range was not u sed to interpret this result as normal/abnor mal. EGFR AA (test code = See_Comment [Autom ated message] 86522-4) The system [employer] generated this result transmitted ref erence range: >60 ML/MIN/1.73. Th e reference range was not used to int erpret this result as normal/abnormal . EGFR (test code = See_Comment [Automate d message] 69444-0) The system [employer] generated this result transmitted ref erence range: >60 ML/MIN/1.73. Th e reference range was not used to int erpret this result as normal/abnormal . BUN/CREAT RATIO (test See_Comment [Auto mated message] code = 3097-3) The system [employer] generated this result transmitted ref erence range: 6 - 28 R ATIO. The reference r charlotte was not used to interpret this result as normal/abnor mal. SODIUM (test code = See_Comment [Automa christopher message] 2951-2) The system [employer] generated this result transmitted ref erence range: 133 - 14 6 MEQ/L. The refe rence range was not u sed to interpret this result as normal/abnor mal. POTASSIUM (test code = See_Comment [Aut omated message] 2823-3) The system [facility] generated this result transmitted ref erence range: 3.5 - 5. 4 MEQ/L. The refe rence range was not u sed to interpret this result as normal/abnor mal. CHLORIDE (test code = See_Comment [Auto mated message] 2075-0) The system [facility] generated this result transmitted ref erence range: 95 - 107 MEQ/L. The reference r charlotte was not used to interpret this result as normal/abnor mal. CO2 (test code = See_Comment [Automated message] 1963-8) The system [facility] generated this result transmitted ref erence range: 19 - 31 MEQ/L. The reference r charlotte was not used to interpret this result as normal/abnor mal. CALCIUM (test code = See_Comment [Autom ated message] 38944-7) The system [facility] generated this result transmitted ref erence range: 8.5 - 10 .5 MG/DL. The refe rence range was not u sed to interpret this result as normal/abnor mal. PROTEIN TOTAL (test See_Comment [Automa christopher message] code = 2885-2) The system [facility] generated this result transmitted ref erence range: 6.1 - 8. 3 G/DL. The reference r charlotte was not used to interpret this result as normal/abnor mal. ALBUMIN (test code = See_Comment [Autom ated message] 74643-0) The system [facility] generated this result transmitted ref erence range: 3.5 - 5. 2 G/DL. The reference r charlotte was not used to interpret this result as normal/abnor mal. GLOBULINS, SERUM, TOTAL See_Comment H [Au tomated message] (test code = 61152-2) The sy stem which generated this result transmitted ref erence range: 1.9 - 3. 7 G/DL. The reference r charlotte was not used to interpret this result as normal/abnor mal. A/G RATIO (test code = See_Comment [Aut omated message] 3229-0) The system [employer] generated this result transmitted ref erence range: 1.0 - 2. 6 RATIO. The refe rence range was not u sed to interpret this result as normal/abnor mal. BILIRUBIN TOTAL (test See_Comment H [Auto mated message] code = 1975-2) The system [facility] generated this result transmitted ref erence range: <=1.2 MG /DL. The reference r charlotte was not used to interpret this result as normal/abnor mal. ALKALINE PHOSPHATASE 93 U/L 40-133 (test code = 6768-6) AST (SGOT) (test code = 27 U/L 9-40 1920-8) ALT (SGPT) (test code = 24 U/L 5-40 Unl ess Otherwise 1744-2) Indicated, All Testing Performed At: [facility], [address] [place] [address] Laborator y Director: Nikhil Montoya M.D. CLIA Number [id number] Cap Accreditation N o. [id number] Lab Interpretation Abnormal (test code = 38502-6) [facility]PRE[facility] [id number] 09:34:20 Test Item Value Reference Range Interpretation Comments GLUCOSE (test code = See_Comment H [Autom ated message] 3455-7) The system [employer] generated this result transmitted ref erence range: 70 - 99 MG/DL. The reference r charlotte was not used to interpret this result as normal/abnor mal. BLOOD UREA NITROGEN See_Comment [Automa christopher message] (test code = 3091-6) The [facility] tem which generated this result transmitted ref erence range: 6 - 20 M G/DL. The reference r charlotet was not used to interpret this result as normal/abnor mal. CREATININE (test code = See_Comment [Au tomated message] 2160-0) The system [facility] [employer] generated this result transmitted ref erence range: 0.60 - 1 .30 MG/DL. The refe rence range was not u sed to interpret this result as normal/abnor mal. EGFR AA (test code = See_Comment [Autom ated message] 30700-0) The system [facility] [employer] generated this result transmitted ref erence range: >60 ML/MIN/1.73. Th e reference range was not used to int erpret this result as normal/abnormal . EGFR (test code = See_Comment [Automate d message] 42314-9) The system [employer] generated this result transmitted ref erence range: >60 ML/MIN/1.73. Th e reference range was not used to int erpret this result as normal/abnormal . BUN/CREAT RATIO (test See_Comment [Auto mated message] code = 3097-3) The system [employer] generated this result transmitted ref erence range: 6 - 28 R ATIO. The reference r charlotte was not used to interpret this result as normal/abnor mal. SODIUM (test code = See_Comment [Automa christopher message] 2951-2) The system [facility] [employer] generated this result transmitted ref erence range: 133 - 14 6 MEQ/L. The refe rence range was not u sed to interpret this result as normal/abnor mal. POTASSIUM (test code = See_Comment [Aut omated message] 2223-3) The system [facility] [employer] generated this result transmitted ref erence range: 3.5 - 5. 4 MEQ/L. The refe rence range was not u sed to interpret this result as normal/abnor mal. CHLORIDE (test code = See_Comment [Auto mated message] 1715-0) The system [facility] [employer] generated this result transmitted ref erence range: 95 - 107 MEQ/L. The reference r charlotte was not used to interpret this result as normal/abnor mal. CO2 (test code = See_Comment [Automated message] 1962-8) The system [facility] [employer] generated this result transmitted ref erence range: 19 - 31 MEQ/L. The reference r charlotte was not used to interpret this result as normal/abnor mal. CALCIUM (test code = See_Comment [Autom ated message] 27765-4) The system [facility] generated this result transmitted ref erence range: 8.5 - 10 .5 MG/DL. The refe rence range was not u sed to interpret this result as normal/abnor mal. PROTEIN TOTAL (test See_Comment [Automa christopher message] code = 2885-2) The system [employer] generated this result transmitted ref erence range: 6.1 - 8. 3 G/DL. The reference r charlotte was not used to interpret this result as normal/abnor mal. ALBUMIN (test code = See_Comment [Autom ated message] 70620-6) The system [employer] generated this result transmitted ref erence range: 3.5 - 5. 2 G/DL. The reference r charlotte was not used to interpret this result as normal/abnor mal. GLOBULINS, SERUM, TOTAL See_Comment H [Au tomated message] (test code = 56488-0) The sy stem which generated this result transmitted ref erence range: 1.9 - 3. 7 G/DL. The reference r charlotte was not used to interpret this result as normal/abnor mal. A/G RATIO (test code = See_Comment [Aut omated message] 1759-0) The system [employer] generated this result transmitted ref erence range: 1.0 - 2. 6 RATIO. The refe rence range was not u sed to interpret this result as normal/abnor mal. BILIRUBIN TOTAL (test See_Comment H [Auto mated message] code = 1975-2) The system [employer] [facility] generated this result transmitted ref erence range: <=1.2 MG /DL. The reference r charlotte was not used to interpret this result as normal/abnor mal. ALKALINE PHOSPHATASE 93 U/L 40-133 (test code = 6768-6) AST (SGOT) (test code = 27 U/L 9-40 1920-8) ALT (SGPT) (test code = 24 U/L 5-40 Unl ess Otherwise 1744-2) Indicated, All Testing Performed At: [facility], [address] [place] [address] Laborator y Director: Nikhil Montoya M.D. CLIA Number [id number] Cap Accreditation N o. 85391-70 Lab Interpretation Abnormal (test code = 97329-2) [facility] [id number] 09:34:20 Test Item Value Reference Range Interpretation Comments GLUCOSE (test code = See_Comment H [Autom ated message] 2345-7) The system [employer] generated this result transmitted ref erence range: 70 - 99 MG/DL. The reference r charlotte was not used to interpret this result as normal/abnor mal. BLOOD UREA NITROGEN See_Comment [Automa christopher message] (test code = 3091-6) The s tem which generated this result transmitted ref erence range: 6 - 20 M G/DL. The reference r charlotte was not used to interpret this result as normal/abnor mal. CREATININE (test code = See_Comment [Au tomated message] 2160-0) The system [employer] generated this result transmitted ref erence range: 0.60 - 1 .30 MG/DL. The refe rence range was not u sed to interpret this result as normal/abnor mal. EGFR AA (test code = See_Comment [Autom ated message] 33113-9) The system [employer] generated this result transmitted ref erence range: >60 ML/MIN/1.73. Th e reference range was not used to int erpret this result as normal/abnormal . EGFR (test code = See_Comment [Automate d message] 81851-1) The system [employer] generated this result transmitted ref erence range: >60 ML/MIN/1.73. Th e reference range was not used to int erpret this result as normal/abnormal . BUN/CREAT RATIO (test See_Comment [Auto mated message] code = 3097-3) The system [employer] generated this result transmitted ref erence range: 6 - 28 R ATIO. The reference r charlotte was not used to interpret this result as normal/abnor mal. SODIUM (test code = See_Comment [Automa christopher message] 2951-2) The system [employer] generated this result transmitted ref erence range: 133 - 14 6 MEQ/L. The refe rence range was not u sed to interpret this result as normal/abnor mal. POTASSIUM (test code = See_Comment [Aut omated message] 9933-3) The system [employer] generated this result transmitted ref erence range: 3.5 - 5. 4 MEQ/L. The refe rence range was not u sed to interpret this result as normal/abnor mal. CHLORIDE (test code = See_Comment [Auto mated message] 4405-0) The system [employer] generated this result transmitted ref erence range: 95 - 107 MEQ/L. The reference r charlotte was not used to interpret this result as normal/abnor mal. CO2 (test code = See_Comment [Automated message] 1962-8) The system [facility] generated this result transmitted ref erence range: 19 - 31 MEQ/L. The reference r charlotte was not used to interpret this result as normal/abnor mal. CALCIUM (test code = See_Comment [Autom ated message] 57786-8) The system [facility] generated this result transmitted ref erence range: 8.5 - 10 .5 MG/DL. The refe rence range was not u sed to interpret this result as normal/abnor mal. PROTEIN TOTAL (test See_Comment [Automa christopher message] code = 2885-2) The system [employer] generated this result transmitted ref erence range: 6.1 - 8. 3 G/DL. The reference r charlotte was not used to interpret this result as normal/abnor mal. ALBUMIN (test code = See_Comment [Autom ated message] 83281-9) The system [facility] generated this result transmitted ref erence range: 3.5 - 5. 2 G/DL. The reference r charlotte was not used to interpret this result as normal/abnor mal. GLOBULINS, SERUM, TOTAL See_Comment H [Au tomated message] (test code = 41614-2) The sy stem which generated this result transmitted ref erence range: 1.9 - 3. 7 G/DL. The reference r charlotte was not used to interpret this result as normal/abnor mal. A/G RATIO (test code = See_Comment [Aut omated message] 1759-0) The system [facility] [employer] generated this result transmitted ref erence range: 1.0 - 2. 6 RATIO. The refe rence range was not u sed to interpret this result as normal/abnor mal. BILIRUBIN TOTAL (test See_Comment H [Auto mated message] code = 1974-2) The system [facility] generated this result transmitted ref erence range: <=1.2 MG /DL. The reference r charlotte was not used to interpret this result as normal/abnor mal. ALKALINE PHOSPHATASE 93 U/L 40-133 (test code = 6768-6) AST (SGOT) (test code = 27 U/L 9-40 1920-8) ALT (SGPT) (test code = 24 U/L 5-40 Unl ess Otherwise 1744-2) Indicated, All Testing Performed At: [facility], [address] [facility] [address] Laborator y Director: Nikhil Montoya M.D. CLIA Number [id number] Cap Accreditation N o. 26790-24 Lab Interpretation Abnormal (test code = 58383-3) [facility] W/AUTO DIFF WITH [id number] 09:32:51 Test Item Value Reference Range Interpretation Comments WHITE BLOOD CELL COUNT See_Comment [Aut omated message] (test code = 79780-4) The sy stem which generated this result transmitted ref erence range: 4.0 - 11 .0 K/UL. The refer ence range was not u sed to interpret this result as normal/abnor mal. RED BLOOD CELL COUNT See_Comment [Autom ated message] (test code = 20931-1) The sy stem which generated this result [...] HEMATOCRIT (test code = 40.2 % 34-45 29821-1) MEAN CORPUSCULAR VOLUME 83.2 fL 80-100 (test code = 74408-2) MEAN CORPUSCULAR 28.4 PG 27-34 HEMOGLOBIN (test code = 25846-6) MEAN CORPUSCULAR See_Comment [Automated message] HEMOGLOBIN CONC (test The sy stem which code = 26046-6) generated th is result transmitted ref erence range: 32.0 - 3 5.5 G/DL. The refer ence range was not u sed to interpret this result as normal/abnor mal. RED CELL DISTRIBUTION 14.4 % 11-15 WIDTH (test code = 39836-0) NEUTROPHILS % (test code 67.7 % 40-74 = 36128-7) LYMPHOCYTES % (test code 22.8 % 19-48 = 81916-0) MONOCYTES % (test code = 6.5 % 4-13 68067-5) EOSINOPHILS % (test code 2.4 % 0-7 = 99607-4) BASOPHILS % (test code = 0.6 % 0-2 63582-4) PLATELET COUNT (test See_Comment Unless Otherwise code = 85711-8) Indicated, A ll Testing Performed At: Clinical Pathol [facility], [address] [place] [address], [place] [address] Laborator y Director: Nikhil Montoya M.D. CLIA Number [id number] Cap Accreditation N o. [id number] [Autom ated message] The sy stem which generated this result transmit christopher reference range : 130 - 400 K/UL. The reference range was not used to int erpret this result as normal/abnormal . [facility] W/AUTO DIFF WITH [id number] 09:32:51 Test Item Value Reference Range Interpretation Comments WHITE BLOOD CELL COUNT See_Comment [Aut omated message] (test code = 40349-8) The sy stem which generated this result transmitted ref erence range: 4.0 - 11 .0 K/UL. The refer ence range was not u sed to interpret this result as normal/abnor mal. RED BLOOD CELL COUNT See_Comment [Autom ated message] (test code = 76727-9) The sy stem which generated this result [...] HEMATOCRIT (test code = 40.2 % 34-45 76418-4) MEAN CORPUSCULAR VOLUME 83.2 fL 80-100 (test code = 98434-4) MEAN CORPUSCULAR 28.4 PG 27-34 HEMOGLOBIN (test code = 58991-9) MEAN CORPUSCULAR See_Comment [Automated message] HEMOGLOBIN CONC (test The sy stem which code = 70543-8) generated th is result transmitted ref erence range: 32.0 - 3 5.5 G/DL. The refer ence range was not u sed to interpret this result as normal/abnor mal. RED CELL DISTRIBUTION 14.4 % 11-15 WIDTH (test code = 38754-2) NEUTROPHILS % (test code 67.7 % 40-74 = 87521-4) LYMPHOCYTES % (test code 22.8 % 19-48 = 09262-1) MONOCYTES % (test code = 6.5 % 4-13 48476-3) EOSINOPHILS % (test code 2.4 % 0-7 = 54880-8) BASOPHILS % (test code = 0.6 % 0-2 34575-8) PLATELET COUNT (test See_Comment Unless Otherwise code = 53638-2) Indicated, A ll Testing Performed At: How do you roll? Pathology [facility], [address] [place] [address] Laborator y Director: Umair GarciaIA Number [id number] Cap Accreditation N o. [id number] [Autom ated message] The sy stem which generated this result transmit christopher reference range : 130 - 400 K/UL. The reference range was not used to int erpret this result as normal/abnormal . [facility] W/AUTO DIFF WITH [id number] 09:32:51 Test Item Value Reference Range Interpretation Comments WHITE BLOOD CELL COUNT See_Comment [Aut omated message] (test code = 35484-5) The sy stem which generated this result transmitted ref erence range: 4.0 - 11 .0 K/UL. The refer ence range was not u sed to interpret this result as normal/abnor mal. RED BLOOD CELL COUNT See_Comment [Autom ated message] (test code = 07942-4) The sy stem which generated this result [...] HEMATOCRIT (test code = 40.2 % 34-45 09370-3) MEAN CORPUSCULAR VOLUME 83.2 fL 80-100 (test code = 19378-2) MEAN CORPUSCULAR 28.4 PG 27-34 HEMOGLOBIN (test code = 14834-8) MEAN CORPUSCULAR See_Comment [Automated message] HEMOGLOBIN CONC (test The sy stem which code = 25498-1) generated th is result transmitted ref erence range: 32.0 - 3 5.5 G/DL. The refer ence range was not u sed to interpret this result as normal/abnor mal. RED CELL DISTRIBUTION 14.4 % 11-15 WIDTH (test code = 50866-5) NEUTROPHILS % (test code 67.7 % 40-74 = 31626-5) LYMPHOCYTES % (test code 22.8 % 19-48 = 46848-5) MONOCYTES % (test code = 6.5 % 4-13 08084-6) EOSINOPHILS % (test code 2.4 % 0-7 = 20441-9) BASOPHILS % (test code = 0.6 % 0-2 42393-9) PLATELET COUNT (test See_Comment Unless Otherwise code = 80471-5) Indicated, A ll Testing Performed At: [facility], [address] [place] [address] [facility] y Director: Nikhil Montoya M.D. CLIA Number [id number] Cap Accreditation N o. [id number] [Autom ated message] The sy stem which generated this result transmit christopher reference range : 130 - 400 K/UL. The reference range was not used to int erpret this result as normal/abnormal . [facility] CenterUS ANK/BRAC INDICES, SINGLE [id number] 01:40:38 [facility] ABI Study Report Name: MARLYS GARNETTMRN: [id number]/Encounter No:[id number]: 2009-68-56Cqr: 54Gender: FStudy Date: 2018Study Time: 09:58 AMReading Group: Narendra Perez, MDReferring Group: Unassigned [facility] Centering Phys: MALORIE SLAUGHTER MDSonographer: Olesya Castaneda RVTLocation: Vascular Lab Study Quality: ExcellentDiagnosis Code: (I73.9) Peripheral vascular disease, unspecified(M79.605) Left leg pain(R20.0, R20.2) Numbness and tingling of both feetProcedure Code: 19759 Limited bilateral noninvasive physiologicstudies of upper or lower extremity.Indications: Focal stabbing pain to the left distal lateral lowerleg, which has resolved and now has similar pain on the left lateralupper thigh. Numbness and tingling of toes of left foot and mild inthe right great toe. ABI :Right Post Post Post Rest 1 min 1 [...] TBI 1.03 Findings:Triphasic Doppler signals in the bilateraldorsalis pedis and distalTACL TAMIR 2019-08-17 Page 1 of 2Studycast - www.corestudycast.[facility] ABI Study Report posterior tibial arteries. Normal bilateral great toe waveforms. IMPRESSION:Normal Bilateral ankle brachial indices.Normal Bilateral Toe brachial indices.Approved By: Narendra Rivero at: August 24, 2019 07:40 PM ESTElectronically Signed on StudyezequielALEXCL GARNETT 2019-08-17 Page 2 of 2StudMaestro Healthcare Technology - www.RubysophicantolinIpanema Technologiesast.Omero Major In Interconnect - 08/24/2019 6:41 PM [facility] ABI Study Report Name: MARLYS GARNETTMRN: [id number]/Encounter No:[id number]: 0340-00-28Ogi: 54Gender: FStudy Date: Aug 17, 2019Study Time: 09:58 AMReading Group: Narendra Perez, MDReferring Group: Unassigned [facility]ITALOrdering Phys: MALORIE SLAUGHTER MDSonographer: Olesya Castaneda RVTLocation: Vascular Lab Study Quality: ExcellentDiagnosis Code: (I73.9) Peripheral vascular disease, unspecified(M79.605) Left leg pain(R20.0, R20.2) Numbness and tingling of both feetProcedure Code: 06569 Limited bilateral noninvasive physiologicstudies of upper or [...] 162 Dors Pedis Triphasic 158 FLAKO 1.16 ToePressure 144 TBI 1.03 Findings: Triphasic Doppler signals in the bilateral dorsalis pedis and distalTAMARA GARNETT 2019-08-17 Page 1of 2Studycast - www.[facility] [place].[facility] ABI Study Report posterior tibial arteries.Normal bilateral great toe waveforms.IMPRESSION:Normal Bilateral ankle brachial indices.Normal Bilateral Toe brachial indices.Approved By: Narendra Rivero at: August 24, 2019 07:40 PM ESTElectronically Signed on Pedrito GARNETT 2019-08-17 Page 2 oj6Wtsanpyem - www.[facility] [place].[facility] HospitalUS ANK/BRAC INDICES, SINGLE [id number] 01:40:38[facility] ABI Study Report Name: MARLYS CHICASN: [id number]/Encounter No:[id number]: [id number]: 54Gender: FStudy Date: Aug 17, 2019Study Time: 09:58 AMReading Group: Narendra Perez, MDReferring Group: Unassigned [facility]Ash[facility] Hospitalcisco Phys: MALORIE SLAUGHTER MDSonographer: Olesya Castaneda RVTLocation: Vascular Lab Study Quality: ExcellentDiagnosis Code: (I73.9) Peripheral vascular disease, unspecified(M79.605) Left leg pain(R20.0, R20.2) Numbness and tinglingof both feetProcedure Code: 34544 Limited bilateral noninvasive physiologicstudies of upper or lowerextremity.Indications: Focal stabbing pain to the left distal lateral lowerleg, which has resolved and now has similar pain on the left lateralupper thigh. Numbness and tingling of toes of left foot and mild inthe right great toe. ABI: Right Post Post Post Rest 1 min 1 [...] signals in the bilateral dorsalis pedis and distalTAMANNYA TAMIR 2019-08-17 Page 1 of 2Studycast - www.[facility]ph warren hospitaltudycast.[facility] ABI Study Report posterior tibial arteries. Normal bilateral great toe waveforms. IMPRESSION:Normal Bilateral ankle brachial indices.Normal BilateralToe brachial indices.Approved By: Narendra Rivero at: August 24, 2019 07:40 PM ESTElectronically Signed on StudyJaskaranCristal GARNETT 2019-08-17 Page 2 of 2SantolinMaestro Healthcare Technology - www.[facility] hospitalsaulo.Laurel Majorect - 08/24/2019 6:41 PM [facility] ABI Study Report Name: MARLYS PRATT AVIVAN: [id number]/Encounter No:[id number]: 1965 -04-05Age: 54Gender: FStudy Date: Aug 17, 2019Study Time: 09:58 AMReading Group: Narendra Perez MDReferring Group: Unassigned [facility] Phys: MALORIE SLAUGHTER MDSonographer: Olesya Castaneda RVTLocation: Vascular Lab Study Qu ality: ExcellentDiagnosis Code: (I73.9) Peripheral vascular disease, unspecified(M79.605) Left leg pain(R20.0, R20.2) Numbness and tingling of both feetProcedure Code: 14802 Limited bilateral noninvasive physiologicstudies of upper or [...] and distalTAMARA TAMIR 2019-08-17 Page 1 of [facility] Medical CenterudMaestro Healthcare Technology - www.[facility] hospitalNeuraltus Pharmaceuticals.[facility] ABI Study Report posterior tibial arteries.Normal bilateral great toe waveforms.IMPRESSION:Normal Bilateral ankle brachial indices.Normal Bilateral Toe brachial indices.Approved By: Narendra Rivero at: August 24, 2019 07:40 PM ESTElectronically Signed on StudycastMARLYS GARNETT 2019-08-17 Page [address] joseph warren hospitalAmicus Therapeutics.[facility] Intercommunity HospitalLIPID PANEL 2019-08-16 21:00:00 Test Item Value Reference Range Interpretation Comments CHOLESTEROL (test 157 mg/dL <200 code = 2093-3) HDL (test code = 39 mg/dL >50 L 2085-9) TRIGLYCERIDES (test 162 mg/dL <150 H code = 2571-8) LDL CHOLESTEROL mg/dL (calc) Reference ra nge: CALCULATED (test <100 Desira ble code = 14566-6) range <100 m g/dL for primary prevention; <70 mg/dL for patients with C HD or diabetic patients with > or = 2 CHD risk factors. LDL-C is now calculated using the Stevenson calculation, which is a validated novel method providin g better accuracy than the Friedewald equation in the estimation of LDL-C. John Em S et al. REA. 2013;310(19): 9046-4410 (http://educati on .MyPublisherDiagnSource Audio .com/faq/XSO805 ) CHOLESTEROL/HDL See_Comment [Automated RATIO (test code = message] The 9830-1) system which generated this result transmitted reference range : <5.0 (calc). Th e reference range was not used to interpret this result as normal/abnormal . NON HDL CHOLESTEROL See_Comment For ev ents with (test code = diabetes plus 1 74416-2) major ASCVD ris k factor, treatin g to a non-HDL-C goal of <100 mg/dL (LDL-C of <70 mg/dL) is considered a therapeutic option.Performe d at: [employer] [address] [address] YONY LARA MD [Automated message] The system which generated this result transmitted reference range : <130 mg/dL (calc). The reference range was not used to interpret this result as normal/abnormal . RAC (test code = Performing RAC) Organization Information: Site ID: [facility] Name: [facility] Address: [address] [place] [address] Director: EMMY LARA MD Lab Interpretation Abnormal (test code = 78985-0) [facility] CenterMICROALBUMIN/CREAT URINE [id number] 21:00:00 Test Item Value Reference Interpretation Comments Range CREATININE URINE 184 mg/dL 20-275 (test code = 2161-8) MICROALBUMIN URINE 1.3 mg/dL Reference RangeNot (test code = established 64218-2) MICROALBUMIN/CREAT See_Comment The ADA defines ININE RATIO (test abnormalit ies in code = 9318-7) albuminexcret ion as follows: Catego ry Result (mcg/mg creatinine) Nor mal <30Microalbumin uria 30-299 Clinical albuminuria > O R = 300 The ADA recommends that at least two of threespecimens collected withi n a 3-6 month perio d beabnormal befo re considering a p atient to bewithin a diagnostic kenzie gorfiona. REPORT COMMENT:FASTING :YESPe rformed at: [employer] KASIE ALEXANDRA [address] [place] [phone] EMMY LARA MD [Automated mess age] The system ic h generated this result transmitted ref erence range: <30 mcg/ mg creat. The refe rence range was not u sed to interpret this result as normal/abnor mal. RAC (test code = Performing RAC) Organization Information: Site ID: [facility] Name: [facility] Address: [address] [place] [phone] Director: EMMY LARA MD [facility] HEMOGLOBIN [id number] 20:50:00 Test Item Value Reference Range Interpretation Comments HEMOGLOBIN A1C (test code = 4548-4) 9.8 % 4-5.6 A Lab Interpretation (test code = Abnormal 62619-1) [facility] [id number] 20:50:00 Test Item Value Reference Range Interpretation Comments HEMOGLOBIN A1C (test code = 4548-4) 9.8 % 4-5.6 A Lab Interpretation (test code = Abnormal 51016-8) [facility]- DUP VEIN UNI/[id number] 21:15:00 Name: MARLYS GARNETT [facility] : 1965 Age/S: 54 / F [address] [place] [address] Unit #: [id number] Loc: [place] [address] 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 History of deep venous thrombosis. COMPARISON: March 2012 TECHNIQUE: Sonographic evaluation of the left lower extremity veins was performed using high resolution B-mode, pulse and color Doppler imaging. FINDINGS: The common femoral, femoral, popliteal and visualized calf veins are patent. Normal venous waveforms throughout. The patientwas unable to tolerate compression images through the mid and distal femoral vein. These vessels demonstrate complete filling with color Doppler without evidence for thrombus. The saphenofemoral junction is unremarkable. IMPRESSION: No deep venous thrombosis. SL: KEITH at 2115 Reported and signed by: Ata Gama M.D. CC: Ananya Ayala NATURAL GAS INSPECTOR Technologist: Naz Qiu RDMS(AB) Trnscb Date/Time: 08/09/2019 (2114) Surya [facility] Orig Print D/T: S: 08/09/2019 (2118) Probe: PAGE 1 Signed ReportPROTHROMBIN [id number] 21:11:00 Test Item Value Reference Range Interpretation Comments PROTHROMBIN TIME 15.5 SECONDS 9.3-12.9 H PATIENT (test code = PTP) INTERNATIONAL NORMAL 1.4 0.8-1.2 H TARGET INR BY RATIO (test code = INDICATIO N Indication INR) INR1. Prophylax is of venous thrombos is 2.0 - 3.0 (orthoped ic surgery), Proph ylaxis of venous throm bosis (other than hig h-risk surgery), Treat ment of Deep Vein Thrombosis/Pulm onary Embolism, Preve ntion of systemic emb olism - Tissue heart va lves, Acute Myocardia l Infarction (to prevent systemic emboli sm), Valvular heart disease, Atrial Fibrillation, Bileaflet mecha nical valve in aortic position.2. Mec hanical prosthetic valv es (high risk), 2. 5 - 3.5 Presence of Lup us Anticoagulant o r Antiphospholipi d Antibodies, Pre vention of systemic emb olism - Acute Myocardia l Infarction (to prevent recurrent infar ct). THROMBOPLASTIN TIME [id number] 20:22:00 Test Item Value Reference Range Interpretation Comments THROMBOPLASTIN TIME 36.3 Seconds 25.0-39.5 N Therape utic Range: PARTIAL (test code = 50.4 - 88.3 Seconds PTT) Effective 01/24/2019 GASTRIC EMPTYING STUDY, [id number] 17:20:00Referring: JUAN Alvares for Exam:->R11.2FINAL REPORT PROCEDURE: GASTRIC EMPTYING STUDY with Solids CPT CODE: 83403 INDICATION: Intractable vomiting PROTOCOL: 0.54 mCi of Tc-99m sulfur colloid was administered orally in the equivalent of 2 scrambled egg whites. Serial images of the upper abdomen were obtained in the ROMANIAN projection for 90 minutes. Gastric emptying was [...] MDReport Verified Date/Time: 07/25/2019 17:20:46 Reading Location: [address] Reading Room C- REACTIVE [id number] 03:00:00 Test Item Value Reference Range Interpretation Comments C-REACTIVE PROTEIN 15.9 mg/L <8.0 H REPORT (test code = 1988-5) COMMENT :FASTING:Y ESCOLLECTION KI T GIVEN TO INDY Escobar. PATIENT ADVISED TO RETURN.Performe d at: [facility] [place] [address] YONY LARA MD RAC (test code = Performing RAC) Organization Information: Site ID: [facility] Name: [facility] Address: [address] [place] [address] Director: EMMY LARA MD Lab Interpretation Abnormal (test code = 24295-9) [facility] CampusEDIMENTATION RATE MODIFIED [id number] 03:00:00 Test Item Value Reference Range Interpretation Comments ERYTHROCYTE 56 mm/h See_Comment H Performed at: [facility] SEDIMENTATION RATE [facility] (test code = 4537-7) [place] [address] YONY LARA MD [Automated message] The system which generated this result transmitted reference range : < OR = 30. T he reference range was not used to interpret this result as normal/abnormal . RAC (test code = Performing RAC) Organization Information: Site ID: [facility] Name: [facility] Address: [address] [place] [address] Director: EMMY LARA MD Lab Interpretation Abnormal (test code = 13425-1) [facility] CenterCELIAC DISEASE COMPREHENSIVE([facility])2019-07-10 03:00:00 Test Item Value Reference Interpretation Comments Range INTERPRETATION SEE NOTE tTG IgA posit abel by (test code = 3017) FABIOLA is consistent with celiac disease, but not confirmed by EM A IFA. Total serum IgA is elevated.Consid er mucosal inflamm atory conditions or underlyinggammo dominga. Recommend corre lation with clinical,radiog raphic and endoscopic findings. Test code 17531 will be discontinued on 09/11/19 to beconsistent with AAFP and ACG gu idelines. A new test code ,21755, has been availa ble since 04/10/19 to incl ude TissueTransglut aminase (tTG) IgA with Reflex to EndomysialScree n/Titer reflex, and Tot al IgA with Reflex to DeamidatedGliad in Peptide (DGP) I gG and Tissue Transglu taminase (tTG)IgG to be consistent with said guidelines. Juhi t code 06582olqh be or derable up to and inclu ding 09/10/19, there afterit will not be ord erable. TISSUE 6 U/mL H <4 No Antibody TRANSGLUTAMINASE Detected> O R = 4 ANTIBODY, IGA (test Antibody Detected code = 23712-8) IGA (test code = 459 mg/dL 47-310 H 2458-8) ENDOMYSIAL ANTIBODY NEGATIVE NEGATIVE Performe d at: [facility] (IGA) W/REFL TO DIAGNOSLuz ICS/LIZ [facility] [place] (test code = 74834 [facility] 67652-6) [facility] [address] ADAMA JOHN MD,PHD ,EDA RAC (test code = Performing RAC) Organization Information: Site ID: [facility] Name: [facility] Address: [address] [place] [address] Director: ABIEL JOHN MD,PHD ,EDA Lab Interpretation Abnormal (test code = 79904-6) [facility] CenterPATHOLOGY [id number] 20:43:00 Test Item Value Reference Range Interpretation Comments CASE REPORT (test code Surgical Pathology = 65639) Report Case: [id number] Authorizing Provider: Tom Mann MD Collected: 06/22/2019 1104 Ordering Location: [facility] Endoscopy Received: 06/22/2019 1535 Services Pathologist: Isaiah Melchor MD Specimens: A) - Duodenum, BX B) - Cecum, BX C) - Colon Biopsy, Random DIAGNOSIS (test code = [place] [address]-6) DIAGNOSTIC ALTERATION B. COLON, CECUM, BIOPSY- NO DIAGNOSTIC ALTERATION- MINUTE MATURE ADIPOSE TISSUE SEEN (SEE COMMENT) C. COLON, RANDOM BIOPSY- NO DIAGNOSTIC ALTERATION- NO EVIDENCE OF MICROSCOPIC COLITIS Signing Pathologist Direct Phone Line: [phone] ally signed by Isaiah Melchor MD on 06/24/2019 at 3:43 PM DIAGNOSIS COMMENT (test B. A very minute area code = 32513) of adipose tissue is seen in deep lamina propria/submucosa. Although non-specific, it may be part of the lipoma noted endoscopically. CPT (test code = 10733) 75891 X 3 CLINICAL HISTORY (test Cirrhosis of [...] (test code = 819) GROSS ASSESSMENT (test [facility] code = 33438) [facility], Department of Pathology, [address] [place] [address], TECHNICAL COMPONENT [facility] (test code = 62503) [facility], Department of Pathology, [address] [place] [address], PROFESSIONAL COMPONENT [facility] (test code = 39680) [facility], Department of Pathology, [address] [place] [address], [facility] CenterTISSUE [id number] 15:43:00Surgical Pathology Report Case: [id number] Authorizing Provider: Tom Mann MD Collected: 06/22/2019 1104 Ordering Location: [facility] Endoscopy Received: 06/22/2019 1535 Services Pathologist: Isaiah Melchor MD Specimens: A) - Duodenum, BX B) - Cecum, BX C) - Colon Biopsy, Random A.DUODENUM BIOPSY- NO DIAGNOSTIC ALTERATIONB. COLON, CECUM, BIOPSY- NO DIAGNOSTIC ALTERATION- MINUTE MATURE ADIPO SE TISSUE SEEN (SEE COMMENT)C. COLON, RANDOM BIOPSY- NO DIAGNOSTIC ALTERATION- NO EVIDENCE OF MICROSCOPIC COLITIS Signing Pathologist Direct Phone Line: [phone] signed by Isaiah Melchor MD on 06/24/2019 at 3:43 PMB. A very minute area of adipose tissue is seen in deep lamina propria /submucosa. Although non-specific, it may be part of the lipoma noted endoscopically. 22027 X 3Cirrhosis of liver without ascites and screening for colon cancer A. Duodenum biopsy. B. Cecum biopsy. C. Random colon biopsy This case is received in three parts. All parts are labeled correctly with the pat ient's name and date of .Part A. Received [...] submitted in toto in cassette C. AH/ew Performed.[facility], Department of Pathology, [address] [place] [address], [facility], [facility] of [facility]ology, [address] [place] [address], [facility], Department of Pathology, [address] [place] [address], [id number] 15:28:00 Test Item Value Reference Interpretation Comments Range PROTIME (test code = See_Comment H [Autom ated 19713-9) message] The system which generated this result transmitted reference range : 11.9 - 14.2 seconds. The reference range was not used to interpret this result as normal/abnormal . INR (test code = See_Comment [Automated 60068-3) message] The system which generated this result [...] valves. Lab Interpretation Abnormal (test code = 41061-7) [facility] CenterPOCT [id number] 15:00:00 Test Item Value Reference Range Interpretation Comments GLUCOSE P.O.C. (test code 140 mg/dL 70-110 H TE STED AT [facility] = 4639) [address] [place] [address]703 0 Lab Interpretation (test Abnormal code = 61735-9) [facility] CenterPROTHROMBIN TIME/[id number] 10:28:00 Test Item Value Reference Range Interpretation [...] is 2.5-3.5 for patients wiht mechanical heart valves.POCT-GLUCOSE [id number] 10:00:00 Test Item Value Reference Range Interpretation Comments POC-GLUCOSE METER 140 mg/dL 70-110 H TESTED AT [facility] 6720 (SERGIO) (test code = [place] 1538) [address] HEPATIC FUNCTION [id number] 09:00:00 Test Item Value Reference Range Interpretation Comments PROTEIN TOTAL (test 8.2 g/dL 6.1-8.1 H code = 2885-2) ALBUMIN (test code = 4 g/dL 3.6-5.1 1751-7) GLOBULINS, SERUM, See_Comment H [Automate d TOTAL (test code = message] The 87377-5) system which generated this result transmitted reference range : 1.9 - 3.7 g/dL (calc). The reference range was not used to interpret this result as normal/abnormal . A/G RATIO (test code See_Comment [Autom ated = 1759-0) message] The system which generated this result transmitted reference range : 1.0 - 2.5 (calc ). The reference range was not used to interpr et this result as normal/abnormal . BILIRUBIN TOTAL 1.1 mg/dL 0.2-1.2 (test code = 1974-) BILIRUBIN DIRECT 0.3 mg/dL See_Comment H [Automated [...] RGA code = 1742-6) [facility] [address] [facility] [address] YONY LARA MD RAC (test code = Performing RAC) Organization Information: Site ID: JUNIOR Name: [facility] Address: [address] [place] [id number] Director: EMMY LARA MD Lab Interpretation Abnormal (test code = 55951-3) [facility] W/AUTO DIFF WITH [id number] 09:00:00 Test Item Value Reference Range Interpretation [...] The (test code = 751-8) system w [facility] generated this result transmitted reference range : 1,500 - 7,800 cells/uL. The reference range was not used to interpret this result as normal/abnormal . LYMPHOCYTES See_Comment [Automated ABSOLUTE COUNT message] The (test code = 731-0) system w [employer] generated this result transmitted reference range : [...] The (test code = 711-2) system w [employer] generated this result transmitted reference range : [...] code = 706-2) COMMENT:FASTIN G:N OPerformed at: [facility] [address] [address] YONY LARA MD RAC (test code = Performing RAC) Organization Information: Site ID: [facility] Name: [facility] Address: [address] [place], [place] [address] Director: EMMY LARA MD [facility] + [id number] 09:00:00 Test Item Value Reference Interpretation Comments Range GLUCOSE (test code 201 mg/dL 65-139 H Non-fast ing = 2345-7) reference inter zeke BLOOD UREA NITROGEN 13 mg/dL 7-25 (test code = 3094-0) CREATININE (test 0.73 mg/dL 0.5-1.05 For patient s >49 code = 2160-0) years of age, the reference limit for Creatinine is approximately 1 3% higher for peopleidentifie d as -Ayse n. EGFR (test code = See_Comment [Automate d message] 19674-1) The system [employer] generated this result transmit christopher reference range : > OR = 60 mL/min/1.73m2. The reference range was not used to interpret this result as normal/abnormal . EGFR AA (test code See_Comment [Automat ed message] = 65865-9) The system [employer] generated this result transmit christopher reference range : > OR = 60 mL/min/1.73m2. The reference range was not used to interpret this result as normal/abnormal . BUN/CREAT RATIO NOT APPLICABLE See_Comment [Automate d message] (test code = The system [employer] 3097-3) generated this result transmit christopher reference range : 6 - 22 (calc). The reference range was not used to interpret this result as normal/abnormal . SODIUM (test code = 139 mmol/L 601-977 1429-2) POTASSIUM (test 4.2 mmol/L 3.5-5.3 code = 2823-3) CHLORIDE (test code 101 mmol/L 98-110 = 2075-0) CO2 (test code = 30 mmol/L 20-32 2027-) CALCIUM (test code 9.7 mg/dL 8.6-10.4 Performed at: A = 87669-2) [employer] [address] YONY LARA MD RAC (test code = Performing RAC) Organization Information: Site ID: [facility] Name: [facility] Address: [address] [place], [place] [address] Director: EMMY LARA MD Lab Interpretation Abnormal (test code = 59322-8) [facility] Center[facility] [id number] 10:33:00Surgical Pathology Report Case: [id number] Authorizing Provider: Arielle Mcginnis MD Collected: 05/26/2019 1215 Ordering Location: [address] Received: 05/29/2019 0818 Service Pathologist: Hailey Guerra MD Specimen: Polyp, Gastric, Cardia Polyp STOMACH, CARDIA, POLYPECTOMY: - POLYPOID MUCOSA WITH HYPERPLASTIC FEATURES (SEE COMMENT) Signing Pathologist Direct Phone Line: [phone] ctronically signed by Hailey Guerra MD on 06/01/2019 at 10:33 AMSections show relatively small superficial fragment of polypoid gastric mucosa with hyperplastic features. In the appropriate clinical/endoscopic setting, this could represent hyperplastic polyp. Clinical/endoscopic correlation is recommended. Additionally, adjacent food particles are seen.[id number] performed: upper endoscopy, polypectomy Preoperative and postoperative diagnoses are the same: GI bleedingPolyp, gastric, cardia polyp The case is received in one part. The specimen received in formalin labeled with the patient's name, ac cession number and "polyp, gastric" is a 0.6 x 0.5 x 0.4 cm piece of newton-griffiths mucosal-covered tissue. Also included are two fragments of green-yellow organic matter measuring 0.2 x 0.1 x 0.1 cm and 0.3x 0.2 x 0.2 cm. The specimen is submitted in toto following filtration in cassette A1. SS/ewPerformed.POCT- GLUCOSE [id number] 13:49:00 Test Item Value Reference Range Interpretation Comments POC-GLUCOSE METER 220 mg/dL 70-110 H TESTED AT [facility] 6720 ([facility]) (test code = [place] 1538) [address] COMPREHENSIVE METABOLIC [id number] 13:07:00 Test Item Value Reference Range Interpretation Comments TOTAL PROTEIN 7.8 gm/dL 6.0-8.3 (BEAKER) (test code = 770) [...] FOR DIALYSIS PATIEN TS. Specimen slightly ictericPROTHROMBIN TIME/[id number] 12:52:00 Test Item Value Reference Range Interpretation [...] is 2.5-3.5 for patients wiht mechanical heart valves.CBC (HEMOGRAM [...] code = 413) HIV-1 ANTIGEN WITH HIV-1/2 [id number] 06:14:00 Test Item Value Reference Range Interpretation Comments HIV-1 ANTIGEN WITH HIV 1\\T\\2 Nonreactive Nonreactive ANTIBODY (2) (BEAKER) (test code = 2586) CT, CHEST, WITHOUT [id number] 04:17:00Referring: Mily Keyes PA-C FINAL REPORT CT, ABDOMEN AND PELVIS, RENAL STONE EVAL, WITHOUT / WITH IV CONTRAST, CT, CHEST, WITHOUT CONTRAST INDICATION: abdominal pain, nephrolithiasis COMPARISON: None TECHNIQUE: Noncontrast axially oriented images were obtained from the thoracic inlet through the pelvis. Postcontrast and delayed phase imaging through the abdomen and pelvis. Coronal and sagittal reformats were provided. DOSE REDUCTION: Dose modulation, iterative reconstruction, and/or weight-based adjustmentof the mA/kV was utilized to reduce the radiation dose to as low as reasonably achievable. FINDINGS: Chest:Lungs and Pleura: Clear lungs. No effusion or pneumothorax.Central airways: Patent.Mediastinum: No adenopathy. Visualized thyroid gland is unremarkable. The esophagus is normal in caliber.Heart and pericardium: Normal. Moderate coronary artery calcifications.Great vessels: Normal calibers.Soft ti ssues: Surgical clips in the bilateral breasts. Retroareolar soft tissue nodule on the right measuring up to 1.3 cm, is unchanged since 2018.Regional skeletal structures: Mild multilevel degenerative changes of the thoracolumbar spine. No aggressive osseous lesion or acute fracture.. Abdomen and Pelvis:Liver: No parenchymal abnormality. Mild hepatomegaly with the liver measuring up to 18 cm in the midclavicular line. Nodular contour of the liver.Gallbladder and biliary tree: Postsurgical changes of a cholecystectomy. No intra or extrahepatic biliary ductal dilatation..Pancreas: No acute findings.Spleen: No acute findings.Adrenal Glands: No acute findings.Kidneys and ureters: No hydronephrosis or hydroureter. No contour deforming renal lesions. Punctate nonobstructing left lower pole nephrolithiasis.Bladder and reproductive organs: Postsurgical changes of a hysterectomy. No suspicious adnexal masses. The bladder is relatively decompressed..Stomach and Duodenum: Metallic clips in the gastric bodymay represent endoscopy clips, correlate clinically. Duodenum is unremarkable..Small and large intestine: The small and large bowel are normal in caliber with postsurgical changes with sigmoid resection and small bowel resection. Again seen are multiple patulous anastomosis in the right lower quadrant. Unchanged tethering of multiple small bowel loops [...] seen, mildly increased in the interval. No pathol ogically enlarged intra-abdominal lymph nodes. Inferior abdominal wall hernia containing a loop of small bowel, unchanged in the interval. Additional Findings: Scarring over the anterior abdominal wall. IMPRESSION: No acute intrathoracic abnormality. Moderate coronary artery calcifications are advanced for age. Retroareolar soft tissue nodule on the right measuring up to 1.3 cm, is unchanged since 2018.However correlate with mammogram. Hepatomegaly with nodular [...] to suggest bowel obstruction. Signed: Imani [facility] Verified Date/Time: 05/27/2019 04:17:26 CT, ABDOMEN AND PELVIS, RENAL STONE EVAL, WITHOUT / WITH IV [id number] 04:17:00Referring: Shawnee Alvares for exam:->abdominal pain, nephrolithiasisFINAL REPORT CT, ABDOMEN AND PELVIS, RENAL STONE EVAL, WITHOUT / WITH IV CONTRAST, CT, CHEST, WITHOUT CONTRAST INDICATION: abdominal pain, nephrolithiasis COMPARISON: None TECHNIQUE: Noncontrast axially oriented images were obtained from the thoracic inlet through the pelvis. Postcontrast and delayed phase imaging through the abdomen and pelvis. Coronal and sagittal reformats were provided. DOSE REDUCTION: Dose modulation, iterative reconstruction, and/or weight-based adjustmentof the mA/kV was utilized to reduce the radiation dose to as low as reasonably achievable. FINDINGS: Chest:Lungs and Pleura: Clear lungs. No effusion or pneumothorax.Central airways: Patent.Mediastinum: No adenopathy. Visualized thyroid gland is unremarkable. The esophagus is normal in caliber.Heart and pericardium: Normal. Moderate coronary artery calcifications.Great vessels: Normal calibers.Soft ti ssues: Surgical clips in the bilateral breasts. Retroareolar soft tissue nodule on the right measuring up to 1.3 cm, is unchanged since 2018.Regional skeletal structures: Mild multilevel degenerative changes of the thoracolumbar spine. No aggressive osseous lesion or acute fracture.. Abdomen and Pelvis:Liver: No parenchymal abnormality. Mild hepatomegaly with the liver measuring up to 18 cm in the midclavicular line. Nodular contour of the liver.Gallbladder and biliary tree: Postsurgical changes of a cholecystectomy. No intra or extrahepatic biliary ductal dilatation..Pancreas: No acute findings.Spleen: No acute findings.Adrenal Glands: No acute findings.Kidneys and ureters: No hydronephrosis or hydroureter. No contour deforming renal lesions. Punctate nonobstructing left lower pole nephrolithiasis.Bladder and reproductive organs: Postsurgical changes of a hysterectomy. No suspicious adnexal masses. The bladder is relatively decompressed..Stomach and Duodenum: Metallic clips in the gastric bodymay represent endoscopy clips, correlate clinically. Duodenum is unremarkable..Small and large intestine: The small and large bowel are normal in caliber with postsurgical changes with sigmoid resection and small bowel resection. Again seen are multiple patulous anastomosis in the right lower quadrant. Unchanged tethering of multiple small bowel loops [...] seen, mildly increased in the interval. No pathol ogically enlarged intra-abdominal lymph nodes. Inferior abdominal wall hernia containing a loop of small bowel, unchanged in the interval. Additional Findings: Scarring over the anterior abdominal wall. IMPRESSION: No acute intrathoracic abnormality. Moderate coronary artery calcifications are advanced for age. Retroareolar soft tissue nodule on the right measuring up to 1.3 cm, is unchanged since 2018.However correlate with mammogram. Hepatomegaly with nodular [...] METER 273 mg/dL 70-110 H TESTED AT [facility] 6720 (BEAKER) (test code = [facility] Declan [facility] 1538) [address] URINALYSIS W/ REFLEX URINE [id number] 17:31:00 Test Item Value Reference Range Interpretation [...] 516) SOURCE(BEAKER) (test code = 2795) POCT-GLUCOSE [id number] 17:11:00 Test Item Value Reference Range Interpretation Comments POC-GLUCOSE METER 199 mg/dL 70-110 H TESTED AT [place] [address] (BEAKER) (test code = [facility] 1538) [address] POCT-GLUCOSE [id number] 12:46:00 Test Item Value Reference Range Interpretation Comments POC-GLUCOSE METER 224 mg/dL 70-110 H TESTED AT [place] [address] (BEAKER) (test code = [facility] 1538) [address] POCT-GLUCOSE [id number] 12:00:00 Test Item Value Reference Range Interpretation Comments POC-GLUCOSE METER 226 mg/dL 70-110 H TESTED AT [place] [address] (BEAKER) (test code = [facility] 1538) [address] HEPATIC FUNCTION [id number] 08:20:00 Test Item Value Reference Range Interpretation [...] = 18 U/L 6-55 347) BASIC METABOLIC [id number] 08:20:00 Test Item Value Reference Range Interpretation [...] NOT APPLICABLE FOR DIALYSIS PATIEN TS. POCT-GLUCOSE [id number] 07:31:00 Test Item Value Reference Range Interpretation Comments POC-GLUCOSE METER 199 mg/dL 70-110 H TESTED AT [facility] 6720 ([facility]) (test code = [place] 1538) [address] CBC W/PLT COUNT & AUTO [id number] 07:02:00 Test Item Value Reference Range Interpretation [...] PERCENT (BEAKER) (test code = 2801) PROTHROMBIN TIME/[id number] 07:00:00 Test Item Value Reference Range Interpretation [...] is 2.5-3.5 for patients wiht mechanical heart valves.AFP TUMOR [id number] 00:01:00 Test Item Value Reference Range Interpretation Comments AFP (test code = 7580028) 4.3 ng/mL <10.0 [facility] [id number] 21:59:00 Test Item Value Reference Range Interpretation Comments SODIUM (test code = 137 meq/L 136-145 50930-9) POTASSIUM (test code = 4.1 meq/L 3.5-5.1 6298-4) CHLORIDE (test code = 102 meq/L 98-107 2069-3) CO2 (test code = 26 meq/L 22-29 8-9) BLOOD UREA NITROGEN 9 mg/dL 7-21 (test code = 51672-1) CREATININE (test code = 0.79 mg/dL 0.57-1.25 47623-6) GLUCOSE (test code = 251 mg/dL 70-105 H 58965-6) CALCIUM (test code = 9.5 mg/dL 8.4-10.2 28589-6) EGFR (test code = mL/min/1.73 [place] [address]-8) NOT ACCURATE CREATININE CLEARANCE IN PREDICTING GLOMERULAR FILTRATION RATE . ESTIMATED GFR I S NOT APPLICABLE FOR DIALYSIS PATIEN TS. Lab Interpretation Abnormal (test code = 15904-6) [facility] CenterAL[facility] FETOPROTEIN (AFP), TUMOR [id number] 19:01:00 Test Item Value Reference Range Interpretation Comments ALPHA-FETOPROTEIN (BEAKER) (test 4.3 ng/mL <10.0 code = 1094) HEPATIC FUNCTION [id number] 16:59:00 Test Item Value Reference Range Interpretation [...] = 24 U/L 6-55 347) BASIC METABOLIC [id number] 16:59:00 Test Item Value Reference Range Interpretation [...] NOT APPLICABLE FOR DIALYSIS PATIEN TS. PROTHROMBIN TIME/[id number] 16:46:00 Test Item Value Reference Range Interpretation [...] is 2.5-3.5 for patients wiht mechanical heart valves.CBC W/PLT COUNT & AUTO [id number] 16:35:00 Test Item Value Reference Range Interpretation [...] PERCENT (BEAKER) (test code = 2801) HEMOGLOBIN [id number] 06:40:00 Test Item Value Reference Range Interpretation Comments HEMOGLOBIN A1C (BEAKER) (test code = 11.3 % 4.3-6.1 H 368) POCT-GLUCOSE [id number] 12:05:00 Test Item Value Reference Range Interpretation Comments POC-GLUCOSE METER 314 mg/dL 70-110 H TESTED AT [facility] 67 (BEAKER) (test code = [facility] [place] 1538) [address] POCT-GLUCOSE [id number] 08:02:00 Test Item Value Reference Range Interpretation Comments POC-GLUCOSE METER 216 mg/dL 70-110 H TESTED AT [place] [address] ([facility] (test code = [facility] [place] 1538) [address] HEPATIC FUNCTION [id number] 04:42:00 Test Item Value Reference Range Interpretation [...] = 28 U/L 6-55 347) BASIC METABOLIC [id number] 04:42:00 Test Item Value Reference Range Interpretation [...] NOT APPLICABLE FOR DIALYSIS PATIEN TS. PROTHROMBIN TIME/[id number] 04:14:00 Test Item Value Reference Range Interpretation [...] is 2.5-3.5 for patients wiht mechanical heart valves.While on warfarin.CBC W/PLT COUNT & AUTO [id number] 04:05:00 Test Item Value Reference Range Interpretation [...] PERCENT (BEAKER) (test code = 2801) POCT-GLUCOSE [id number] 20:57:00 Test Item Value Reference Range Interpretation Comments POC-GLUCOSE METER 257 mg/dL 70-110 H TESTED AT [place] [address] ([facility]) (test code = [place] 1538) [address] POCT-GLUCOSE [id number] 16:42:00 Test Item Value Reference Range Interpretation Comments POC-GLUCOSE METER 384 mg/dL 70-110 H TESTED AT [place] [address] ([facility]) (test code = [place] 1538) [address] POCT-GLUCOSE [id number] 12:13:00 Test Item Value Reference Range Interpretation Comments POC-GLUCOSE METER 306 mg/dL 70-110 H TESTED AT [facility] 6720 (BEAKER) (test code = [place] 1538) [address] POCT-GLUCOSE [id number] 07:56:00 Test Item Value Reference Range Interpretation Comments POC-GLUCOSE METER 325 mg/dL 70-110 H TESTED AT [facility] 6720 (BEAKER) (test code = [place] 1538) [address] BASIC METABOLIC [id number] 05:42:00 Test Item Value Reference Range Interpretation [...] DIALYSIS PATIEN TS. Specimen slightly ictericHEPATIC FUNCTION [id number] 05:42:00 Test Item Value Reference Range Interpretation [...] 32 U/L 6-55 347) Specimen slightly ictericPROTHROMBIN TIME/[id number] 05:30:00 Test Item Value Reference Range Interpretation [...] is 2.5-3.5 for patients wiht mechanical heart valves.CBC W/PLT COUNT & AUTO [id number] 05:19:00 Test Item Value Reference Range Interpretation [...] PERCENT (BEAKER) (test code = 2801) POCT-GLUCOSE [id number] 22:31:00 Test Item Value Reference Range Interpretation Comments POC-GLUCOSE METER 225 mg/dL 70-110 H TESTED AT [place] [address] (BEAKER) (test code = [facility] 1538) [address] POCT-GLUCOSE [id number] 18:24:00 Test Item Value Reference Range Interpretation Comments POC-GLUCOSE METER 257 mg/dL 70-110 H TESTED AT [place] [address] ([facility]) (test code = [facility] 1538) [address] RAPID DRUG SCREEN, [id number] 14:23:00 Test Item Value Reference Range Interpretation [...] situations. Chain of custody not maintained. Some upef-qiw-mfslhkn medications, as well as adulterants, may cause inaccurate results. Clinical correlation should be applied. A more comprehensive drug screen or confirmation of a detected drug may be performed upon request.POCT-GLUCOSE [id number] 12:23:00 Test Item Value Reference Range Interpretation Comments POC-GLUCOSE METER 242 mg/dL 70-110 H TESTED AT [place] [address] ([facility]) (test code = SRAVANI Manriquez [facility] 1538) [address] POCT-GLUCOSE [id number] 07:27:00 Test Item Value Reference Range Interpretation Comments POC-GLUCOSE METER 198 mg/dL 70-110 H TESTED AT [place] [address] ([facility]) (test code = SRAVANI Manriquez [facility] 1538) [address] CBC W/PLT COUNT & AUTO [id number] 06:41:00 Test Item Value Reference Range Interpretation Comments WHITE BLOOD CELL COUNT ([facility]) 6.5 K/ L 3.5-10.5 (test code = 775) RED BLOOD CELL COUNT ([facility]) 4.40 M/ L 3.93-5.22 (test code = 761) HEMOGLOBIN ([facility]) (test code = 12.6 GM/DL 11.2-15.7 410) HEMATOCRIT ([facility]) (test code = 38.3 % 34.1-44.9 411) MEAN CORPUSCULAR VOLUME ([facility]) 87.0 fL 79.4-94.8 (test code = 753) MEAN CORPUSCULAR HEMOGLOBIN 28.6 pg 25.6-32.2 (AKER) (test code = 751) MEAN CORPUSCULAR HEMOGLOBIN CONC 32.9 GM/DL 32.2-35.5 (AKER) (test code = 752) RED CELL DISTRIBUTION WIDTH 15.6 % 11.7-14.4 H (AKER) (test code = 412) PLATELET COUNT ([facility]) (test 123 K/CU MM 150-450 L code [...] PERCENT (BEAKER) (test code = 2801) CT, [id number] 02:31:00Referring: DOROTA Alvares-CFINAL REPORT EXAM: CT of [...] of the liver suggesting cirrhosis. Hepatomegaly.BILE DUCTS: Within normal limits.GALL BLADDER: Status post cholecystectomy.PANCREAS: Within normal limits.SPLEEN: Mild splen omegaly.ADRENALS: Within normal limits.KIDNEYS/URETERS: Punctate non obstructing stone [...] VESSELS: Infrarenal IVC filter. Atherosclerotic calcifications of theaorta and branches. LYMPH NODES: No abdominal or pelvic lymphadenopathy.SOFT TISSUES: Midline abdominal scar. BONES: Lower lumbar facet arthropathy. No suspicious osseous lesions. IMPRESSION:Status post small bowel and sigmoid resection. Status post cholecystectomy and hysterectomy.No bowel obstruction, free air or fluid collection. Punctate nonobstructing left renal stone. No hydroureteronephrosis.Cirrhosis. Hepatosplenomegaly. Signed: Racheal Carlos MDReport Verified Date/Time: 04/11/2019 02:31:06 URINALYSIS W/ REFLEX URINE [id number] 22:19:00 Test Item Value Reference Range Interpretation [...] (test code = 2795) RAD, CHEST, 2 [id number] 22:13:00Referring: Shawnee Alvares for exam:->ABDOMINAL PAINFINAL REPORT [...] Impression: No focal pulmonary consolidation. Signed: [facility] Verified Date/Time: 04/10/2019 22:13:40 COMPREHENSIVE METABOLIC PANEL 2019-04-10 22:06:00 Test Item Value Reference Range Interpretation [...] APPLICABLE FOR DIALYSIS PATIEN TS. Specimen slightly [id number] 22:06:00 Test Item Value Reference Range Interpretation Comments LIPASE (BEAKER) (test code = 749) 17 U/L 8-78 Specimen slightly ictericPT/[id number] 22:02:00 Test Item Value Reference Range Interpretation [...] is 2.5-3.5 for patients wiht mechanical heart valves.CBC W/PLT COUNT & AUTO [id number] 21:50:00 Test Item Value Reference Range Interpretation [...] (test code = 2801) CT ABD/PEL WITH [id number]-[id number] 01:31:00 [place] [address] Patient Name: MARLYS GARNETT MR #: [id number] : 1965 Age/Sex: 54/F Req #: [id number] Adm Physician: Ordered by: NASRIN PITTMAN DO Report #: [id number] Location: [facility] Room/Bed: __ Procedure: HOPD/CT ABD/PEL WITH CONTRAST-HOPD Exam Date: [...] obtained.Dose modulation, iterative reconstruction, and/or weight based a djustment of the mA/kV was utilized to reduce the radiation dose to as low as reasonably achievable.COMPARISON: None. CLINICAL HISTORY:Abdominal pain DISCUSSION: ABDOMEN/PELVIS: LOWER THORAX:Unremarkable. HEPATOBILIARY: Cirrhotic morphology. No intra-or extrahepatic biliary ductal dilation. Cholecystectomy. SPLEEN: No splenomegaly. PANCREAS: No focal masses or ductal dilatation. ADRENALS: No adrenalnodules. KIDNEYS/URETERS: No obstruction. Punctate left renal calculus. [...] on 04/10/2019 1:39 AM Dictated By: BENJY ASNCHEZ MD 8 Transcribed By: GAYATIR on 04/10/19138 COPY TO: NASRIN PITTMAN DO Bedside [id number] 09:42:00 Test Item Value Reference Range Interpretation Comments Bedside Glucose (test code = 38551-4) 352 70-120 H Meter ID: [id number] HospitalBedside [id number] 09:42:00 Test Item Value Reference Range Interpretation Comments Bedside Glucose (test code = 95325-7) 352 70-120 H Meter ID: [id number] [facility] Center[facility] [id number] 09:42:00 Test Item Value Reference Range Interpretation Comments Bedside Glucose (test code = 99004-2) 352 70-120 H Meter ID: [id number] University of [facility] [facility]odium Fhgur4574-41-06 16:14:00 Test Item Value Reference Range Interpretation Comments Sodium Level (test code = 2951-2) 131 136-145 L [facility]Pot[facility] Jwrtx7757-04-71 16:14:00 Test Item Value Reference Range Interpretation Comments Potassium Level (test code = 2823-3) 3.9 3.5-5.1 [facility]Chloride Wdyto7458-54-48 16:14:00 Test Item Value Reference Range Interpretation Comments Chloride Level (test code = 2075-0) 97 98-107 L [facility]Carbon Dioxide Nangq2484-10-06 16:14:00 Test Item Value Reference Range Interpretation Comments Carbon Dioxide Level (test code = 28 2027-9) [facility]Anion Dhx0347-72-89 16:14:00 Test Item Value Reference Range Interpretation Comments Anion Gap (test code = 32815-8) 9.9 8-16 [facility]Blood Urea Ffheruyg8470-50-62 16:14:00 Test Item Value Reference Range Interpretation Comments Blood Urea Nitrogen (test code = 05-05 3094-0) [facility]Creatinine[facility] 16:14:00 Test Item Value Reference Range Interpretation Comments Creatinine (test code = 2160-0) 0.82 0.57-1.11 [facility]BUN[facility]Creatinine Vgfyp1177-13-56 16:14:00 Test Item Value Reference Range Interpretation Comments BUN/Creatinine Ratio (test code = 04-04 3097-3) [facility] HospitalEstimat Glomerular Filtration Trhd1420-44-48 16:14:00 Test Item Value Reference Range Interpretation Comments Estimat Glomerular Filtration Rate > 60 >60 (test code = 532735487) Ranges were taken from the National Kidney Disease Education Program and the National Kidney Foundation literature.Reference ranges:60 or greater: Hjveyh19- 59 (for 3 consecutive months): Chronic kidneydisease 15 or less: Kidney failure [facility]Glucose Pvyho9147-94-89 16:14:00 Test Item Value Reference Range Interpretation Comments Glucose Level (test code = ZFU3123) 346 74-118 H [facility]Calcium Xdoiw4846-37-47 16:14:00 Test Item Value Reference Range Interpretation Comments Calcium Level (test code = 03479-4) 9.7 8.4-10.2 [facility]Total Xiumqhtfb7631-26-41 16:14:00 Test Item Value Reference Range Interpretation Comments Total Bilirubin (test code = 1975-2) 1.9 0.2-1.2 H [facility] HospitalAspartate Amino Transf (AST/SGOT)2019-03-15 16:14:00 Test Item Value Reference Range Interpretation Comments Aspartate Amino Transf (AST/SGOT) (test 32 5-34 code = Aspartate Amino Transf (AST/SGOT)) [facility] HospitalAlanine Aminotransferase (ALT/SGPT)2019-03-15 16:14:00 Test Item Value Reference Range Interpretation Comments Alanine Aminotransferase (ALT/SGPT) 35 0-55 (test code = 1742-6) [facility]Total Umcxjtf2626-50-42 16:14:00 Test Item Value Reference Range Interpretation Comments Total Protein (test code = 2885-2) 8.0 6.5-8.1 [facility]Albumin2019-06-[facility] 16:14:00 Test Item Value Reference Range Interpretation Comments Albumin (test code = 1751-7) 3.4 3.5-5.0 L [facility] HospitalGlobulin2019-06-05 16:14:00 Test Item Value Reference Range Interpretation Comments Globulin (test code = 03016-1) 4.6 2.3-3.5 H [facility] HospitalAlbumin/Globulin Hcmhi7694-33-10 16:14:00 Test Item Value Reference Range Interpretation Comments Albumin/Globulin Ratio (test code = 0.7 0.8-2.0 L 1759-0) [facility] HospitalAlkaline Tiuvhdfqzul6248-96-24 16:14:00 Test Item Value Reference Range Interpretation Comments Alkaline Phosphatase (test code = 100 40-150 6768-6) [facility] Hicyk2453-15-18 16:14:00 Test Item Value Reference Range Interpretation Comments Sodium Level (test code = 2951-2) 131 136-145 L [facility]Potassium Guqlo5768-90-02 16:14:00 Test Item Value Reference Range Interpretation Comments Potassium Level (test code = 2823-3) 3.9 3.5-5.1 [facility]Chloride Pldby1956-59-52 16:14:00 Test Item Value Reference Range Interpretation Comments Chloride Level (test code = 2075-0) 97 98-107 L [facility] HospitalCarbon Dioxide Ccucy1450-62-88 16:14:00 Test Item Value Reference Range Interpretation Comments Carbon Dioxide Level (test code = 28 -8-9) [facility]Anion Pqy6772-11-93 16:14:00 Test Item Value Reference Range Interpretation Comments Anion Gap (test code = 21010-2) 9.9 8-16 [facility]Blood Urea Zudceegr9484-95-33 16:14:00 Test Item Value Reference Range Interpretation Comments Blood Urea Nitrogen (test code = 05-05 3094-0) [facility]Creatinine[facility] 16:14:00 Test Item Value Reference Range Interpretation Comments Creatinine (test code = 2160-0) 0.82 0.57-1.11 [facility]Creatinine Vmzxu9329-24-46 16:14:00 Test Item Value Reference Range Interpretation Comments BUN/Creatinine Ratio (test code = 04-04 3097-3) [facility]Estimat Glomerular Filtration Sxap7517-52-40 16:14:00 Test Item Value Reference Range Interpretation Comments Estimat Glomerular Filtration Rate > 60 >60 (test code = 661456909) Ranges were taken from the National Kidney Disease Education Program and the National Kidney Foundation literature.Reference ranges:60 or greater: Joyzeb32- 59 (for 3 consecutive months): Chronic kidneydisease 15 or less: Kidney failure [facility]Glucose Mbqod0802-59-31 16:14:00 Test Item Value Reference Range Interpretation Comments Glucose Level (test code = IMB5855) 346 74-118 H [facility]Calcium Iyurr6988-54-08 16:14:00 Test Item Value Reference Range Interpretation Comments Calcium Level (test code = 72323-6) 9.7 8.4-10.2 [facility]Total Iqpmixyoo7088-90-24 16:14:00 Test Item Value Reference Range Interpretation Comments Total Bilirubin (test code = 1975-2) 1.9 0.2-1.2 H [facility] HospitalAspartate Amino Transf (AST/SGOT)2019-03-15 16:14:00 Test Item Value Reference Range Interpretation Comments Aspartate Amino Transf (AST/SGOT) (test 32 5-34 code = Aspartate Amino Transf (AST/SGOT)) [facility] HospitalAlanine Aminotransferase (ALT/SGPT)2019-03-15 16:14:00 Test Item Value Reference Range Interpretation Comments Alanine Aminotransferase (ALT/SGPT) 35 0-55 (test code = 1742-6) [facility]Total Hlvjspx0817-02-92 16:14:00 Test Item Value Reference Range Interpretation Comments Total Protein (test code = 2885-2) 8.0 6.5-8.1 [facility]Albumin2019-06-05 16:14:00 Test Item Value Reference Range Interpretation Comments Albumin (test code = 1751-7) 3.4 3.5-5.0 L [facility]Globulin2019-06-05 16:14:00 Test Item Value Reference Range Interpretation Comments Globulin (test code = 23099-4) 4.6 2.3-3.5 H [facility] HospitalAlbumin/Globulin Vqbni2600-28-48 16:14:00 Test Item Value Reference Range Interpretation Comments Albumin/Globulin Ratio (test code = 0.7 0.8-2.0 L 1759-0) [facility] HospitalAlkaline Yomxonecupy4293-66-74 16:14:00 Test Item Value Reference Range Interpretation Comments Alkaline Phosphatase (test code = 100 40150 6768-6) [facility] Glplo9463-53-06 16:14:00 Test Item Value Reference Range Interpretation Comments Sodium Level (test code = 2951-2) 131 136-145 L [facility]Potassium Blzie6155-91-53 16:14:00 Test Item Value Reference Range Interpretation Comments Potassium Level (test code = 2823-3) 3.9 3.5-5.1 [facility]Chloride Dqytm9380-91-69 16:14:00 Test Item Value Reference Range Interpretation Comments Chloride Level (test code = 2075-0) 97 98-107 L [facility] HospitalCarbon Dioxide Llacc6934-29-87 16:14:00 Test Item Value Reference Range Interpretation Comments Carbon Dioxide Level (test code = 28 -29 8-9) [facility]Anion Zan5565-52-70 16:14:00 Test Item Value Reference Range Interpretation Comments Anion Gap (test code = 55011-0) 9.9 8-16 [facility]Blood Urea Ziyjaslo5324-47-42 16:14:00 Test Item Value Reference Range Interpretation Comments Blood Urea Nitrogen (test code = 8 05-05 3094-0) [facility]Creatinine2019-[facility] 16:14:00 Test Item Value Reference Range Interpretation Comments Creatinine (test code = 2160-0) 0.82 0.57-1.11 [facility]BUN[facility]Creatinine Wjied9584-48-12 16:14:00 Test Item Value Reference Range Interpretation Comments BUN/Creatinine Ratio (test code = 10 04-04 3097-3) [facility]Estimat Glomerular Filtration Hlnj1224-73-65 16:14:00 Test Item Value Reference Range Interpretation Comments Estimat Glomerular Filtration Rate > 60 >60 (test code = 632307404) Ranges were taken from the National Kidney Disease Education Program and the National Kidney Foundation literature.Reference ranges:60 or greater: Ylyuba53- 59 (for 3 consecutive months): Chronic kidneydisease 15 or less: Kidney failure [facility] HospitalGlucose Puchd3886-56-36 16:14:00 Test Item Value Reference Range Interpretation Comments Glucose Level (test code = WBA9503) 346 74-118 H [facility]Calcium Ovhqm2433-69-95 16:14:00 Test Item Value Reference Range Interpretation Comments Calcium Level (test code = 57294-9) 9.7 8.4-10.2 [facility]Total Aguxltkhk5127-40-12 16:14:00 Test Item Value Reference Range Interpretation Comments Total Bilirubin (test code = 1975-2) 1.9 0.2-1.2 H [facility] HospitalAspartate Amino Transf (AST/SGOT)2019-03-15 16:14:00 Test Item Value Reference Range Interpretation Comments Aspartate Amino Transf (AST/SGOT) (test 32 5-34 code = Aspartate Amino Transf (AST/SGOT)) [facility] HospitalAlanine Aminotransferase (ALT/SGPT)2019-03-15 16:14:00 Test Item Value Reference Range Interpretation Comments Alanine Aminotransferase (ALT/SGPT) 35 0-55 (test code = 1742-6) [facility]Total Jmjoolp8307-63-10 16:14:00 Test Item Value Reference Range Interpretation Comments Total Protein (test code = 2885-2) 8.0 6.5-8.1 [facility]Albumin2019-06-[facility] 16:14:00 Test Item Value Reference Range Interpretation Comments Albumin (test code = 1751-7) 3.4 3.5-5.0 L [facility]Globulin2019-06-05 16:14:00 Test Item Value Reference Range Interpretation Comments Globulin (test code = 74634-7) 4.6 2.3-3.5 H [facility]Albumin/Globulin Fwijj9639-70-40 16:14:00 Test Item Value Reference Range Interpretation Comments Albumin/Globulin Ratio (test code = 0.7 0.8-2.0 L 1759-0) [facility] HospitalAlkaline Gsudyrxraug4069-58-56 16:14:00 Test Item Value Reference Range Interpretation Comments Alkaline Phosphatase (test code = 100 40-150 6768-6) [facility] Tshwj6496-83-30 16:14:00 Test Item Value Reference Range Interpretation Comments Sodium Level (test code = 2951-2) 131 136-145 L [facility]Potassium Rxcfb0037-64-41 16:14:00 Test Item Value Reference Range Interpretation Comments Potassium Level (test code = 2823-3) 3.9 3.5-5.1 [facility]Chloride Rxsvd7567-02-05 16:14:00 Test Item Value Reference Range Interpretation Comments Chloride Level (test code = 2075-0) 97 98-107 L [facility] HospitalCarbon Dioxide Krrlz2360-98-40 16:14:00 Test Item Value Reference Range Interpretation Comments Carbon Dioxide Level (test code = 28 -2027-9) [facility]Anion Stt8598-12-81 16:14:00 Test Item Value Reference Range Interpretation Comments Anion Gap (test code = 75086-0) 9.9 8-16 [facility]Blood Urea Nxkbumbo3275-18-23 16:14:00 Test Item Value Reference Range Interpretation Comments Blood Urea Nitrogen (test code = 8 05-05 3094-0) [facility]Creatinine[facility] 16:14:00 Test Item Value Reference Range Interpretation Comments Creatinine (test code = 2160-0) 0.82 0.57-1.11 [facility]BUN[facility]Creatinine Dtina5666-74-23 16:14:00 Test Item Value Reference Range Interpretation Comments BUN/Creatinine Ratio (test code = 04-04 3097-3) [facility]Estimat Glomerular Filtration Zpew1023-82-22 16:14:00 Test Item Value Reference Range Interpretation Comments Estimat Glomerular Filtration Rate > 60 >60 (test code = 691111334) Ranges were taken from the National Kidney Disease Education Program and the National Kidney Foundation literature.Reference ranges:60 or greater: Bqemwd38- 59 (for 3 consecutive months): Chronic kidneydisease 15 or less: Kidney failure [facility]Glucose Lwzsr0250-89-03 16:14:00 Test Item Value Reference Range Interpretation Comments Glucose Level (test code = HRG3390) 346 74-118 H [facility]Calcium Wqpye1706-26-74 16:14:00 Test Item Value Reference Range Interpretation Comments Calcium Level (test code = 22184-9) 9.7 8.4-10.2 [facility]Total Nrqsekhus0768-40-48 16:14:00 Test Item Value Reference Range Interpretation Comments Total Bilirubin (test code = 1975-2) 1.9 0.2-1.2 H [facility] HospitalAspartate Amino Transf (AST/SGOT)2019-03-15 16:14:00 Test Item Value Reference Range Interpretation Comments Aspartate Amino Transf (AST/SGOT) (test 32 5-34 code = Aspartate Amino Transf (AST/SGOT)) [facility]Alanine Aminotransferase (ALT/SGPT)2019-03-15 16:14:00 Test Item Value Reference Range Interpretation Comments Alanine Aminotransferase (ALT/SGPT) 35 0-55 (test code = 1742-6) [facility]Total Jpvlidl1237-29-18 16:14:00 Test Item Value Reference Range Interpretation Comments Total Protein (test code = 2885-2) 8.0 6.5-8.1 [facility]Albumin2019-[facility] 16:14:00 Test Item Value Reference Range Interpretation Comments Albumin (test code = 1751-7) 3.4 3.5-5.0 L [facility]Globulin2019-06-05 16:14:00 Test Item Value Reference Range Interpretation Comments Globulin (test code = 70225-5) 4.6 2.3-3.5 H [facility]Albumin/Globulin Uguhl3332-69-68 16:14:00 Test Item Value Reference Range Interpretation Comments Albumin/Globulin Ratio (test code = 0.7 0.8-2.0 L 1759-0) [facility]Alkaline Yelrddwcgmr1118-90-41 16:14:00 Test Item Value Reference Range Interpretation Comments Alkaline Phosphatase (test code = 100 40-150 6768-6) [facility] YYH0296-91-20 16:10:00 Test Item Value Reference Range Interpretation Comments Urine WBC (test code = 5821-4) 0-5 0-5 [facility] [id number] 16:10:00 Test Item Value Reference Range Interpretation Comments Urine RBC (test code = 19672-3) 0-5 0-5 [facility] Zbdbcbvj7306-70-80 16:10:00 Test Item Value Reference Range Interpretation Comments Urine Bacteria (test code = 62984-1) MODERATE NONE H [facility] Epithelial Ehgno8115-35-58 16:10:00 Test Item Value Reference Range Interpretation Comments Urine Epithelial Cells (test code = MODERATE NONE 08658-6) [facility] FXT9567-19-88 16:10:00 Test Item Value Reference Range Interpretation Comments Urine WBC (test code = 5821-4) 0-5 0-5 [facility] LAG1812-93-10 16:10:00 Test Item Value Reference Range Interpretation Comments Urine RBC (test code = 67726-1) 0-5 0-5 [facility] Yfaffnbz6556-90-77 16:10:00 Test Item Value Reference Range Interpretation Comments Urine Bacteria (test code = 90234-0) MODERATE NONE H [facility] Epithelial Qqpxi9672-72-86 16:10:00 Test Item Value Reference Range Interpretation Comments Urine Epithelial Cells (test code = MODERATE NONE 93448-9) [facility] FYF2119-04-14 16:10:00 Test Item Value Reference Range Interpretation Comments Urine WBC (test code = 5821-4) 0-5 0-5 [facility] [id number] 16:10:00 Test Item Value Reference Range Interpretation Comments Urine RBC (test code = 73127-7) 0-5 0-5 [facility] Capxslxv3245-29-19 16:10:00 Test Item Value Reference Range Interpretation Comments Urine Bacteria (test code = 51858-3) MODERATE NONE H [facility] Epithelial Uojwz2856-25-58 16:10:00 Test Item Value Reference Range Interpretation Comments Urine Epithelial Cells (test code = MODERATE NONE 17811-4) [facility] RYP4953-90-17 16:10:00 Test Item Value Reference Range Interpretation Comments Urine WBC (test code = 5821-4) 0-5 0-5 [facility] [id number] 16:10:00 Test Item Value Reference Range Interpretation Comments Urine RBC (test code = 89730-1) 0-5 0-5 [facility] Gvwgggdj5021-22-23 16:10:00 Test Item Value Reference Range Interpretation Comments Urine Bacteria (test code = 16335-2) MODERATE NONE H [facility] Epithelial Jsoyu6018-82-26 16:10:00 Test Item Value Reference Range Interpretation Comments Urine Epithelial Cells (test code = MODERATE NONE 74986-2) [facility]White Blood Mkyws4062-25-66 15:56:00 Test Item Value Reference Range Interpretation Comments White Blood Count (test code = 6690-2) 6.10 4.8-10.8 [facility] Blood Xasvl2497-94-89 15:56:00 Test Item Value Reference Range Interpretation Comments Red Blood Count (test code = 789-8) 4.55 3.6-5.1 [facility]Hemoglobin[facility] 15:56:00 Test Item Value Reference Range Interpretation Comments Hemoglobin (test code = 46834-8) 12.8 12.0-16.0 [facility]Hematocrit2019-06-05 15:56:00 Test Item Value Reference Range Interpretation Comments Hematocrit (test code = 4544-3) 38.5 34.2-44.1 [facility]Mean Corpuscular Fdumib6966-94-92 15:56:00 Test Item Value Reference Range Interpretation Comments Mean Corpuscular Volume (test code = 84.6 81-99 787-2) [facility]Mean Corpuscular Wxogzeubjy8865-16-83 15:56:00 Test Item Value Reference Range Interpretation Comments Mean Corpuscular Hemoglobin (test code 28.1 28-32 = 785-6) [facility]Mean Corpuscular Hemoglobin Vpcmtgj5956-93-29 15:56:00 Test Item Value Reference Range Interpretation Comments Mean Corpuscular Hemoglobin Concent 33.2 31-35 (test code = 786-4) [facility]Red Cell Distribution Xnhvy1105-37-88 15:56:00 Test Item Value Reference Range Interpretation Comments Red Cell Distribution Width (test code 15.6 11.7-14.4 H = 71112-5) [facility] HospitalPlatelet Dzouh2960-14-61 15:56:00 Test Item Value Reference Range Interpretation Comments Platelet Count (test code = 777-3) 115 140-360 L [facility] HospitalNeutrophils (%) (Auto)2019-03-15 15:56:00 Test Item Value Reference Range Interpretation Comments Neutrophils (%) (Auto) (test code = 64.2 38.7-80.0 98952-9) [facility] HospitalLymphocytes (%) (Auto)2019-03-15 15:56:00 Test Item Value Reference Range Interpretation Comments Lymphocytes (%) (Auto) (test code = 25.7 18.0-39.1 736-9) [facility]Monocytes (%) (Auto)2019-03-15 15:56:00 Test Item Value Reference Range Interpretation Comments Monocytes (%) (Auto) (test code = 7.0 4.4-11.3 5905-5) [facility]Eosinophils (%) (Auto)2019-03-15 15:56:00 Test Item Value Reference Range Interpretation Comments Eosinophils (%) (Auto) (test code = 2.1 0.0-6.0 713-8) [facility]Basophils (%) (Auto)2019-03-15 15:56:00 Test Item Value Reference Range Interpretation Comments Basophils (%) (Auto) (test code = 0.7 0.0-1.0 706-2) [facility] HospitalIM GRANULOCYTES %2019-03-15 15:56:00 Test Item Value Reference Range Interpretation Comments IM GRANULOCYTES % (test code = IM 0.3 0.0-1.0 GRANULOCYTES %) [facility]Neutrophils # (Auto)2019-03-15 15:56:00 Test Item Value Reference Range Interpretation Comments Neutrophils # (Auto) (test code = 3.9 2.1-6.9 751-8) [facility]Lymphocytes # (Auto)2019-03-15 15:56:00 Test Item Value Reference Range Interpretation Comments Lymphocytes # (Auto) (test code = 1.6 1.0-3.2 26773-5) [facility]Monocytes # (Auto)2019-03-15 15:56:00 Test Item Value Reference Range Interpretation Comments Monocytes # (Auto) (test code = 742-7) 0.4 0.2-0.8 [facility]Eosinophils # (Auto)2019-03-15 15:56:00 Test Item Value Reference Range Interpretation Comments Eosinophils # (Auto) (test code = 0.1 0.0-0.4 711-2) [facility]Basophils # (Auto)2019-03-15 15:56:00 Test Item Value Reference Range Interpretation Comments Basophils # (Auto) (test code = 704-7) 0.0 0.0-0.1 [facility] HospitalAbsolute Immature Granulocyte (wrge1237-87-86 15:56:00 Test Item Value Reference Range Interpretation Comments Absolute Immature Granulocyte (auto 0.02 0-0.1 (test code = Absolute Immature Granulocyte (auto) [facility] Pftsk7606-18-78 15:56:00 Test Item Value Reference Range Interpretation Comments Urine Color (test code = 5778-6) YELLOW YELLOW [facility]Urine Ruvrrez7617-76-09 15:56:00 Test Item Value Reference Range Interpretation Comments Urine Clarity (test code = 30518-0) HAZY CLEAR [facility] Specific Eqswpvr7162-15-12 15:56:00 Test Item Value Reference Range Interpretation Comments Urine Specific [place] (test code = 1.010 1.010-1.025 5811-5) [facility] [id number] 15:56:00 Test Item Value Reference Range Interpretation Comments Urine pH (test code = 51802-0) 8 5-7 [facility] Leukocyte Thxmyefj5167-52-08 15:56:00 Test Item Value Reference Range Interpretation Comments Urine Leukocyte Esterase (test code NEGATIVE NEGATIVE = 69775-8) [facility] Yjdrrix2877-84-76 15:56:00 Test Item Value Reference Range Interpretation Comments Urine Nitrite (test code = 15004-7) NEGATIVE NEGATIVE [facility] Vfzyigs1289-00-34 15:56:00 Test Item Value Reference Range Interpretation Comments Urine Protein (test code = 73106-6) NEGATIVE NEGATIVE [facility]Urine Glucose (UA)2019-03-15 15:56:00 Test Item Value Reference Range Interpretation Comments Urine Glucose (UA) (test code = 3+ NEGATIVE 09667-3) [facility] Crlvwdz1242-01-26 15:56:00 Test Item Value Reference Range Interpretation Comments Urine Ketones (test code = 90056-7) NEGATIVE NEGATIVE [facility] Tnzmasskojbq2454-55-01 15:56:00 Test Item Value Reference Range Interpretation Comments Urine Urobilinogen (test code = 4 0.2-1 36874-9) [facility] Awgzljnza9725-02-40 15:56:00 Test Item Value Reference Range Interpretation Comments Urine Bilirubin (test code = 1977-8) NEGATIVE NEGATIVE [facility] Kjtbg9647-59-12 15:56:00 Test Item Value Reference Range Interpretation Comments Urine Blood (test code = 81535-1) TRACE NEGATIVE [facility]White Blood Myeag6295-74-71 15:56:00 Test Item Value Reference Range Interpretation Comments White Blood Count (test code = 6690-2) 6.10 4.8-10.8 [facility]Red Blood Vfjco0173-13-86 15:56:00 Test Item Value Reference Range Interpretation Comments Red Blood Count (test code = 789-8) 4.55 3.6-5.1 [facility]Hemoglobin[facility] 15:56:00 Test Item Value Reference Range Interpretation Comments Hemoglobin (test code = 82591-9) 12.8 12.0-16.0 [facility]Hematocrit2019-06-05 15:56:00 Test Item Value Reference Range Interpretation Comments Hematocrit (test code = 4544-3) 38.5 34.2-44.1 [facility]Mean Corpuscular Aclcxo9829-09-17 15:56:00 Test Item Value Reference Range Interpretation Comments Mean Corpuscular Volume (test code = 84.6 81-99 787-2) [facility]Mean Corpuscular Bxxrhpwwka0864-96-37 15:56:00 Test Item Value Reference Range Interpretation Comments Mean Corpuscular Hemoglobin (test code 28.1 28-32 = 785-6) [facility]Mean Corpuscular Hemoglobin Ibzubxm8254-62-92 15:56:00 Test Item Value Reference Range Interpretation Comments Mean Corpuscular Hemoglobin Concent 33.2 31-35 (test code = 786-4) [facility]Red Cell Distribution Ltgiz1165-01-29 15:56:00 Test Item Value Reference Range Interpretation Comments Red Cell Distribution Width (test code 15.6 11.7-14.4 H = 37685-9) [facility]Platelet Tvvnk3531-99-35 15:56:00 Test Item Value Reference Range Interpretation Comments Platelet Count (test code = 777-3) 115 140-360 L [facility] HospitalNeutrophils (%) (Auto)2019-03-15 15:56:00 Test Item Value Reference Range Interpretation Comments Neutrophils (%) (Auto) (test code = 64.2 38.7-80.0 24717-6) [facility]Lymph[facility] (Auto)2019-03-15 15:56:00 Test Item Value Reference Range Interpretation Comments Lymphocytes (%) (Auto) (test code = 25.7 18.0-39.1 736-9) [facility] ([facility])2019-03-15 15:56:00 Test Item Value Reference Range Interpretation Comments Monocytes (%) (Auto) (test code = 7.0 4.4-11.3 5905-5) [facility] (Auto)2019-03-15 15:56:00 Test Item Value Reference Range Interpretation Comments Eosinophils (%) (Auto) (test code = 2.1 0.0-6.0 713-8) [facility] ([facility])2019-03-15 15:56:00 Test Item Value Reference Range Interpretation Comments Basophils (%) (Auto) (test code = 0.7 0.0-1.0 706-2) [facility]IM [facility]TES %2019-03-15 15:56:00 Test Item Value Reference Range Interpretation Comments IM GRANULOCYTES % (test code = IM 0.3 0.0-1.0 GRANULOCYTES %) [facility]Neutrophils # (Auto)2019-03-15 15:56:00 Test Item Value Reference Range Interpretation Comments Neutrophils # (Auto) (test code = 3.9 2.1-6.9 751-8) [facility]Lymphocytes # (Auto)2019-03-15 15:56:00 Test Item Value Reference Range Interpretation Comments Lymphocytes # (Auto) (test code = 1.6 1.0-3.2 72200-0) [facility] # (Auto)2019-03-15 15:56:00 Test Item Value Reference Range Interpretation Comments Monocytes # (Auto) (test code = 742-7) 0.4 0.2-0.8 [facility] # (Auto)2019-03-15 15:56:00 Test Item Value Reference Range Interpretation Comments Eosinophils # (Auto) (test code = 0.1 0.0-0.4 711-2) [facility] # (Auto)2019-03-15 15:56:00 Test Item Value Reference Range Interpretation Comments Basophils # (Auto) (test code = 704-7) 0.0 0.0-0.1 [facility]Absolute Immature Granulocyte (jjnq9483-26-14 15:56:00 Test Item Value Reference Range Interpretation Comments Absolute Immature Granulocyte (auto 0.02 0-0.1 (test code = Absolute Immature Granulocyte (auto) [facility] Ehzqv5803-13-41 15:56:00 Test Item Value Reference Range Interpretation Comments Urine Color (test code = 5778-6) YELLOW YELLOW [facility] Tjvrzev2165-60-98 15:56:00 Test Item Value Reference Range Interpretation Comments Urine Clarity (test code = 05641-9) HAZY CLEAR [facility] Specific Nkfxepc3403-89-07 15:56:00 Test Item Value Reference Range Interpretation Comments Urine Specific [place] (test code = 1.010 1.010-1.025 5811-5) [facility] mP8601-28-15 15:56:00 Test Item Value Reference Range Interpretation Comments Urine pH (test code = 82601-1) 8 5-7 [facility] Leukocyte Sshkltiq4367-21-87 15:56:00 Test Item Value Reference Range Interpretation Comments Urine Leukocyte Esterase (test code NEGATIVE NEGATIVE = 22575-5) [facility] Zwizpsv2921-02-89 15:56:00 Test Item Value Reference Range Interpretation Comments Urine Nitrite (test code = 15455-5) NEGATIVE NEGATIVE [facility] Rhzuezl9634-25-48 15:56:00 Test Item Value Reference Range Interpretation Comments Urine Protein (test code = 03289-4) NEGATIVE NEGATIVE [facility] Glucose (UA)2019-03-15 15:56:00 Test Item Value Reference Range Interpretation Comments Urine Glucose (UA) (test code = 3+ NEGATIVE 48940-7) [facility] Mqdjfhw4720-36-23 15:56:00 Test Item Value Reference Range Interpretation Comments Urine Ketones (test code = 21523-2) NEGATIVE NEGATIVE [facility] Lvvkkbnxvopk0174-53-83 15:56:00 Test Item Value Reference Range Interpretation Comments Urine Urobilinogen (test code = 4 0.2-1 31871-4) [facility] Yzsvigoxk9813-51-29 15:56:00 Test Item Value Reference Range Interpretation Comments Urine Bilirubin (test code = 1977-8) NEGATIVE NEGATIVE [facility] Wqpiz8535-12-04 15:56:00 Test Item Value Reference Range Interpretation Comments Urine Blood (test code = 34362-4) TRACE NEGATIVE [facility]White Blood Kbgyo2175-42-65 15:56:00 Test Item Value Reference Range Interpretation Comments White Blood Count (test code = 6690-2) 6.10 4.8-10.8 [facility] Blood Xkqsp4380-84-81 15:56:00 Test Item Value Reference Range Interpretation Comments Red Blood Count (test code = 789-8) 4.55 3.6-5.1 [facility]Hemoglobin2019-06-[facility] 15:56:00 Test Item Value Reference Range Interpretation Comments Hemoglobin (test code = 72799-6) 12.8 12.0-16.0 [facility]Hematocrit2019-06-05 15:56:00 Test Item Value Reference Range Interpretation Comments Hematocrit (test code = 4544-3) 38.5 34.2-44.1 [facility]Mean Corpuscular Xczsfb1958-40-57 15:56:00 Test Item Value Reference Range Interpretation Comments Mean Corpuscular Volume (test code = 84.6 81-99 787-2) [facility]Mean Corpuscular Ugxtpznarl9617-14-70 15:56:00 Test Item Value Reference Range Interpretation Comments Mean Corpuscular Hemoglobin (test code 28.1 28-32 = 785-6) [facility]Mean Corpuscular Hemoglobin Cnimsmk6687-66-10 15:56:00 Test Item Value Reference Range Interpretation Comments Mean Corpuscular Hemoglobin Concent 33.2 31-35 (test code = 786-4) [facility]Red Cell Distribution Actdz3985-47-96 15:56:00 Test Item Value Reference Range Interpretation Comments Red Cell Distribution Width (test code 15.6 11.7-14.4 H = 69975-7) [facility] HospitalPlatelet Mijkp6202-67-27 15:56:00 Test Item Value Reference Range Interpretation Comments Platelet Count (test code = 777-3) 115 140-360 L [facility]Neutrophils (%) (Auto)2019-03-15 15:56:00 Test Item Value Reference Range Interpretation Comments Neutrophils (%) (Auto) (test code = 64.2 38.7-80.0 84365-5) [facility]Lymphocytes (%) (Auto)2019-03-15 15:56:00 Test Item Value Reference Range Interpretation Comments Lymphocytes (%) (Auto) (test code = 25.7 18.0-39.1 736-9) [facility]Mon[facility] (%) (Auto)2019-03-15 15:56:00 Test Item Value Reference Range Interpretation Comments Monocytes (%) (Auto) (test code = 7.0 4.4-11.3 5905-5) [facility]Eosinophils (%) (Auto)2019-03-15 15:56:00 Test Item Value Reference Range Interpretation Comments Eosinophils (%) (Auto) (test code = 2.1 0.0-6.0 713-8) [facility] (%) (Auto)2019-03-15 15:56:00 Test Item Value Reference Range Interpretation Comments Basophils (%) (Auto) (test code = 0.7 0.0-1.0 706-2) [facility]IM [facility]ANULOCYTES %2019-03-15 15:56:00 Test Item Value Reference Range Interpretation Comments IM GRANULOCYTES % (test code = IM 0.3 0.0-1.0 GRANULOCYTES %) [facility]Neutrophils # (Auto)2019-03-15 15:56:00 Test Item Value Reference Range Interpretation Comments Neutrophils # (Auto) (test code = 3.9 2.1-6.9 751-8) [facility]Lymphocytes # (Auto)2019-03-15 15:56:00 Test Item Value Reference Range Interpretation Comments Lymphocytes # (Auto) (test code = 1.6 1.0-3.2 47115-7) [facility]Mon[facility] # (Auto)2019-03-15 15:56:00 Test Item Value Reference Range Interpretation Comments Monocytes # (Auto) (test code = 742-7) 0.4 0.2-0.8 [facility]Eosinophils # (Auto)2019-03-15 15:56:00 Test Item Value Reference Range Interpretation Comments Eosinophils # (Auto) (test code = 0.1 0.0-0.4 711-2) [facility] # (Auto)2019-03-15 15:56:00 Test Item Value Reference Range Interpretation Comments Basophils # (Auto) (test code = 704-7) 0.0 0.0-0.1 [facility]Absolute Immature Granulocyte (twkx6804-81-17 15:56:00 Test Item Value Reference Range Interpretation Comments Absolute Immature Granulocyte (auto 0.02 0-0.1 (test code = Absolute Immature Granulocyte (auto) [facility] Lmkyj5265-33-95 15:56:00 Test Item Value Reference Range Interpretation Comments Urine Color (test code = 5778-6) YELLOW YELLOW [facility] Pxtcsbt2421-18-75 15:56:00 Test Item Value Reference Range Interpretation Comments Urine Clarity (test code = 90402-9) HAZY CLEAR [facility] Specific Vhkjtdw8728-71-87 15:56:00 Test Item Value Reference Range Interpretation Comments Urine Specific [place] (test code = 1.010 1.010-1.025 5811-5) [facility] oT5954-76-45 15:56:00 Test Item Value Reference Range Interpretation Comments Urine pH (test code = 56859-8) 8 5-7 [facility] Leukocyte Bsnvfbmo8895-32-91 15:56:00 Test Item Value Reference Range Interpretation Comments Urine Leukocyte Esterase (test code NEGATIVE NEGATIVE = 83414-4) [facility] Irbwqpe0747-06-38 15:56:00 Test Item Value Reference Range Interpretation Comments Urine Nitrite (test code = 73002-8) NEGATIVE NEGATIVE [facility] Amtbdwy6737-57-45 15:56:00 Test Item Value Reference Range Interpretation Comments Urine Protein (test code = 36864-3) NEGATIVE NEGATIVE [facility] Glucose (UA)2019-03-15 15:56:00 Test Item Value Reference Range Interpretation Comments Urine Glucose (UA) (test code = 3+ NEGATIVE 15402-4) [facility] Oilxjgf7902-83-08 15:56:00 Test Item Value Reference Range Interpretation Comments Urine Ketones (test code = 61914-2) NEGATIVE NEGATIVE [facility] Tklggfbtzdva9049-85-53 15:56:00 Test Item Value Reference Range Interpretation Comments Urine Urobilinogen (test code = 4 0.2-1 05442-3) [facility] Orcdginog9998-25-99 15:56:00 Test Item Value Reference Range Interpretation Comments Urine Bilirubin (test code = 1977-8) NEGATIVE NEGATIVE [facility] Peynx6792-97-04 15:56:00 Test Item Value Reference Range Interpretation Comments Urine Blood (test code = 02912-2) TRACE NEGATIVE [facility]White Blood Kmrne6653-01-22 15:56:00 Test Item Value Reference Range Interpretation Comments White Blood Count (test code = 6690-2) 6.10 4.8-10.8 [facility] Anrpb8327-65-43 15:56:00 Test Item Value Reference Range Interpretation Comments Red Blood Count (test code = 789-8) 4.55 3.6-5.1 [facility]Hemoglobin2019-[facility] 15:56:00 Test Item Value Reference Range Interpretation Comments Hemoglobin (test code = 06307-0) 12.8 12.0-16.0 [facility]Hematocrit2019-06-05 15:56:00 Test Item Value Reference Range Interpretation Comments Hematocrit (test code = 4544-3) 38.5 34.2-44.1 [facility]Mean Corpuscular Rtlxjt5046-96-75 15:56:00 Test Item Value Reference Range Interpretation Comments Mean Corpuscular Volume (test code = 84.6 81-99 787-2) [facility]Mean Corpuscular Axqkrknkta1662-29-73 15:56:00 Test Item Value Reference Range Interpretation Comments Mean Corpuscular Hemoglobin (test code 28.1 28-32 = 785-6) [facility]Mean Corpuscular Hemoglobin Zvlxgdr4663-83-36 15:56:00 Test Item Value Reference Range Interpretation Comments Mean Corpuscular Hemoglobin Concent 33.2 31-35 (test code = 786-4) [facility]Red Cell Distribution Ldbkz2070-03-30 15:56:00 Test Item Value Reference Range Interpretation Comments Red Cell Distribution Width (test code 15.6 11.7-14.4 H = 82392-4) [facility]Plate[facility] Tvsmk4223-22-82 15:56:00 Test Item Value Reference Range Interpretation Comments Platelet Count (test code = 777-3) 115 140-360 L [facility]Neutrophils (%) (Auto)2019-03-15 15:56:00 Test Item Value Reference Range Interpretation Comments Neutrophils (%) (Auto) (test code = 64.2 38.7-80.0 11928-9) [facility]Lymphocytes (%) (Auto)2019-03-15 15:56:00 Test Item Value Reference Range Interpretation Comments Lymphocytes (%) (Auto) (test code = 25.7 18.0-39.1 736-9) [facility]Mon[facility] (%) (Auto)2019-03-15 15:56:00 Test Item Value Reference Range Interpretation Comments Monocytes (%) (Auto) (test code = 7.0 4.4-11.3 5905-5) [facility]Eosinophils (%) (Auto)2019-03-15 15:56:00 Test Item Value Reference Range Interpretation Comments Eosinophils (%) (Auto) (test code = 2.1 0.0-6.0 713-8) [facility] (%) (Auto)2019-03-15 15:56:00 Test Item Value Reference Range Interpretation Comments Basophils (%) (Auto) (test code = 0.7 0.0-1.0 706-2) [facility]IM GRANULOCYTES %2019-03-15 15:56:00 Test Item Value Reference Range Interpretation Comments IM GRANULOCYTES % (test code = IM 0.3 0.0-1.0 GRANULOCYTES %) [facility]Neutrophils # (Auto)2019-03-15 15:56:00 Test Item Value Reference Range Interpretation Comments Neutrophils # (Auto) (test code = 3.9 2.1-6.9 751-8) [facility]Lymph[facility] # (Auto)2019-03-15 15:56:00 Test Item Value Reference Range Interpretation Comments Lymphocytes # (Auto) (test code = 1.6 1.0-3.2 32212-6) [facility]Mon[facility] # (Auto)2019-03-15 15:56:00 Test Item Value Reference Range Interpretation Comments Monocytes # (Auto) (test code = 742-7) 0.4 0.2-0.8 [facility] # (Auto)2019-03-15 15:56:00 Test Item Value Reference Range Interpretation Comments Eosinophils # (Auto) (test code = 0.1 0.0-0.4 711-2) [facility] # (Auto)2019-03-15 15:56:00 Test Item Value Reference Range Interpretation Comments Basophils # (Auto) (test code = 704-7) 0.0 0.0-0.1 [facility]Absolute Immature Granulocyte (lsnt6809-04-58 15:56:00 Test Item Value Reference Range Interpretation Comments Absolute Immature Granulocyte (auto 0.02 0-0.1 (test code = Absolute Immature Granulocyte (auto) [facility] Ryved5229-91-99 15:56:00 Test Item Value Reference Range Interpretation Comments Urine Color (test code = 5778-6) YELLOW YELLOW [facility] Kdwpvmt9896-68-07 15:56:00 Test Item Value Reference Range Interpretation Comments Urine Clarity (test code = 41306-8) HAZY CLEAR [facility] Specific Pdymrjj6234-17-99 15:56:00 Test Item Value Reference Range Interpretation Comments Urine Specific [place] (test code = 1.010 1.010-1.025 5811-5) [facility] uQ7919-84-98 15:56:00 Test Item Value Reference Range Interpretation Comments Urine pH (test code = 29699-3) 8 5-7 [facility] Leukocyte Hosnguxh2299-87-10 15:56:00 Test Item Value Reference Range Interpretation Comments Urine Leukocyte Esterase (test code NEGATIVE NEGATIVE = 27151-9) [facility] Culaupt9819-11-41 15:56:00 Test Item Value Reference Range Interpretation Comments Urine Nitrite (test code = 74008-4) NEGATIVE NEGATIVE [facility] Uahoucw5024-46-46 15:56:00 Test Item Value Reference Range Interpretation Comments Urine Protein (test code = 02427-7) NEGATIVE NEGATIVE [facility] Glucose (UA)2019-03-15 15:56:00 Test Item Value Reference Range Interpretation Comments Urine Glucose (UA) (test code = 3+ NEGATIVE 68034-8) [facility] Ixwvexv1378-88-74 15:56:00 Test Item Value Reference Range Interpretation Comments Urine Ketones (test code = 84373-9) NEGATIVE NEGATIVE [facility] Vevtguqmqial4938-65-16 15:56:00 Test Item Value Reference Range Interpretation Comments Urine Urobilinogen (test code = 4 0.2-1 18103-5) [facility] Auxiyeapv1682-08-81 15:56:00 Test Item Value Reference Range Interpretation Comments Urine Bilirubin (test code = 1977-8) NEGATIVE NEGATIVE [facility] Kboiv4017-39-83 15:56:00 Test Item Value Reference Range Interpretation Comments Urine Blood (test code = 19045-3) TRACE NEGATIVE [facility] HospitalTISSUE [id number] 17:02:00Surgical Pathology Report Case: [id number] Authorizing Provider: Tom Mann MD Collected: 01/10/2019 1120 Ordering Location: [facility] Radiology Angio Received: 01/10/2019 1426 Pathologist: Allie Lu MD Specimen: Liver LIVER, ULTRASOUND-GUIDED NEEDLE BIOPSIES- CIRRHOSIS- STEATOSIS (~6%)- RARE BALLOONED HEPATOCYTE- see comment Signing Pathologist Direct Phone Line: [phone] signed by Allie Lu MD on 01/13/2019 at 5:02 PMThe histological features are consistent with cirrhosis secondary to steatohepatitis. No features of autoimmune hepatitis are seen.The non-alcoholic steatohepatitis (JIMY) activity scoring is performed according to guidelines from non-alcoholic steatohepatitis, clinical research network (Deb, et al. Hepatology 2005. 41:1313-21), at the request of the clinician, for research related purposes.The JIMY score is: Steatosis: Grade 1 + lobular inflammation, grade 0 + hepatocyte ballooning score 1 = 2/8. The fibrosis score is 4 of 4.84198, 26415 X5Isetfwxm liver enzymesNative right liver biopsyThe specimen is received in a formalin-filled container and labeled with the patient's information and labeled "right [place] liver biopsy" and consists of two [place]ton-red [...] stains. Immunohistochemistry technical testing was performed at [facility], Pathology Laboratory where it was developed [...] Laboratory Improvement Amendments of 1988 (CLIA-88) as qualifiedto perform high complexity clinical laboratory testing.U/S, BIOPSY, MAYAT5182-50-03 11:59:00Referring: DOROTA Alvares-CUltrasound guided liver biopsyAbnormal liver enzymes, cirrhosis, AIH vs NASHReason for Exam:- >abnormal liver enzymesFINAL REPORT Ultrasound guided liver biopsy. Clinical History: Elevated LFTs. Comparison Study: Ultrasound dated December 07, 2018. Informed consent was obtained from the patient and the risks of the procedure were explained including bleeding, infection, pneumothorax and visceralinjury. Sedation: 1% Xylocaine was used as local analgesia. One mg of Versed and 50 micrograms of fentanyl were administered using the moderate sedation protocol under the supervision of a physician. Mo derate Sedation Time: 20 minutes. Technique: Using sterile [...] the liver under ultrasound guidance. Signed: Cheo Smith MDReport Verified Date/Time: 01/10/2019 11:59:42 Reading Location: [address] Ultrasound Reading Room APTT 2019-01-10 08:59:00 Test Item Value Reference Range Interpretation Comments PARTIAL THROMBOPLASTIN TIME 37.7 seconds 22.5-36.0 H (BEAKER) (test code = 760) PROTHROMBIN TIME/[id number] 08:58:00 Test Item Value Reference Range Interpretation Comments PROTIME (BEAKER) (test code = 14.7 seconds 11.7-14.7 759) INR (BEAKER) (test code = 370) 1.1 <=5.9 RECOMMENDED COUMADIN/WARFARIN INR THERAPY RANGESSTANDARD DOSE: 2.0 - 3.0 Includes: PROPHYLAXIS for venous thrombosis, systemic embolization; TREATMENT for venous thrombosis and/or pulmonary embolus.HIGH RISK: Target INR is 2.5-3.5 for patients with mechanical heart valves.PLATELET [id number] 08:50:00 Test Item Value Reference Range Interpretation Comments PLATELET COUNT (BEAKER) (test 113 K/CU MM 150-450 L code = 756) PROTHROMBIN TIME/[id number] 09:40:00 Test Item Value Reference Range Interpretation [...] mechanical heart valves.CBC W/PLT COUNT & AUTO [id number] 09:33:00 Test Item Value Reference Range Interpretation [...] (BEAKER) (test code = 2801) U/S, ABDOMINAL, [id number] 11:18:00Referring: DOROTA Alvares- CCirrhosis assess for HCCReason [...] cm and is unremarkable. The pancreas is poorlyseen. Trace ascites is present. The right kidney measures 12.1 cm and left kidney measures 12.4 cm, both within normal limits. The proximal aorta and IVC are unremarkable. No pleural effusion is seen. Impression: 1. Nodular, cirrhotic appearing liver with no focal masses.2. Trace ascites.3. Pancreas poorly seen. Signed: Cheo Smith Verified Date/Time: 12/07/2018 11:18:11 Reading Location: [address] Radiology Reading Room ALPHA FETOPROTEIN (AFP), TUMOR [id number] 19:36:00 Test Item Value Reference Range Interpretation Comments ALPHA-FETOPROTEIN (BEAKER) (test 4.2 ng/mL <10.0 code = 1094) HEPATIC FUNCTION [id number] 17:53:00 Test Item Value Reference Range Interpretation [...] = 21 U/L 6-55 347) BASIC METABOLIC [id number] 17:53:00 Test Item Value Reference Range Interpretation [...] NOT APPLICABLE FOR DIALYSIS PATIEN TS. PROTHROMBIN TIME/[id number] 17:46:00 Test Item Value Reference Range Interpretation [...] mechanical heart valves.CBC W/PLT COUNT & AUTO [id number] 17:32:00 Test Item Value Reference Range Interpretation [...] code = 2801) RAD, HAND, 2 VIEWS, [id number] 13:22:00Referring: JUAN Alvares for Exam:->m79.641Reason for Exam:->m79.642FINAL REPORT Exam: Right and left hand three views each History: Pain Comparison : None. Findings: No fracture or malalignment. Bone demineralization. Narrowing of the interphalangeal joints and first carpometacarpal joint. No abnormal soft tissue calcification or soft tissue defect. Impression: No acute osseous abnormality Osteoarthrosis of the interphalangeal and first carpometacarpal joint Signed: Benjy Sanchez Verified Date/Time: 11/10/2018 13:22:55 RAD, HAND, 2 VIEWS, [id number] 13:22:00Referring: Shawnee Alvares for Exam:- >m79.641Reason for Exam:->m79.642FINAL REPORT Exam: Right and left hand three views each History: Pain Comparison: None. Findings: No fracture or malalignment. Bone demineralization. Narrowing of the interphalangeal joints and first carpometacarpal joint. No abnormal soft tissue calcification or soft tissue defect. Impression: No acute osseous abnormality Osteoarthrosis of the interphalangeal and first carpometacarpal joint Signed: Benjy Sanchez Verified Date/Time: 11/10/2018 13:22:55 CT ABD/PEL WITH CONTRAST-HOPD 2018-09-27 22:26:00 [place] [address] Patient Name: MRALYS GARNETT MR #: [id number] : 1965 Age/Sex: 53/F Req#: [id number] Adm Physician: Ordered by: LILA ESCALANTE MD Report #: [id number] Location: [facility] Room/Bed: Procedure: [id number] HOPD/CT ABD/PEL WITH CONTRAST-HOPD Exam Date: 09/27/18 Exam Time: 2143 REPORT STATUS: Signed EXAM: CT ABD/PEL WITH CONTRAST-HOPD DATE: 09/27/2018 12:00 AM INDICATION: Abdominal pain COMPARISON: 07/14/2018 TECHNIQUE: The abdomen and pelvis were scanned using a multidetector helical scanner. Coronal and sagittal reformations were obtained. CT low dose techniques were utilized,as applicable. IV Contrast: 100 ml Isovue 300/370 FINDINGS: Evaluation somewhat degraded by noise related to body habitus. LOWER THORAX: No consolidations LIVER: Stable morphologic changes suggesting ci rrhosis. No masses. GALLBLADDER/BILIARY: Surgically absent SPLEEN: Stable splenomegaly, 15 to 16 cm.PANCREAS: Unremarkable ADRENALS: No nodules KIDNEYS: No suspicious renal masses. Stable 3 mm nonobstructing left renal calculus. No hydronephrosis. GI TRACT: Postsurgical changes are again noted statuspost prior bowel resections. Unchanged haziness of the [...] with splenomegaly suggesting portal hypertension. Signed by: Janeth Veliz MD on 09/27/2018 10:34 PM Dictated By: PRAKASH VELIZ MD [id number] Transcribed By: AGYATRI on 09/27/18 2234 COPY TO: LILA ESCALANTE V MDCT ABDOMEN/PELVIS [id number] 16:21:00 [place] [address] PatientName: MARLYS GARNETT MR #: [id number] : 1965 Age/Sex: 53/F Req #: [id number] Adm Physician: Ordered by: AMBER GOMES MD Report #: [id number] Location: ER Room/Bed: ___ Procedure: [id number] CT/CT ABDOMEN/PELVIS W Exam Date: Exam Time: REPORT STATUS: Signed EXAM: CT of theabdomen and pelvis WITH contrast HISTORY: Abdominal pain, vomiting, nausea, blood in stool, lower abdominal pain COMPARISON: CT abdomen and pelvis March 27, 2018. TECHNIQUE: The abdomen and pelvis were scanned utilizing a multidetector helical scanner. Coronal and sagittal reformats are provided. PROTOCOL: Routine IV CONTRAST: 100 cc of Isovue-370. [...] mm nonobstructing calcific density near the inferior poleof the left kidney. GI TRACT: Postsurgical changes within the right lower quadrant of the abdomen/right pelvis, and in the rectosigmoid region. Near one surgical anastomotic site there is mild dilationand small bowel feces sign (see series 2 image 58), but this appears similar to the comparison. Bowel gas and fecal material in the rectosigmoid region. VESSELS: Moderate atherosclerotic changes including the coronary arteries. IVC filter. PERITONEUM/RETROPERITONEUM: Persistent mild mesenteric edema and trace ascites adjacent to the inferior liver. LYMPH NODES: No lymphadenopathy REPRODUCTIVE ORGANS:Not visualized BLADDER: Decompressed, which limits evaluation. SOFT TISSUES: Unremarkable BONES: No suspicious bone lesions. IMPRESSION: 1. Findings remain consistent with early cirrhosis and portal hypertension. 2. Postsurgical changes within the abdomen and pelvis and one small segment of stable small bowel stasis, the stability suggests postsurgical stasis/mild chronic low-grade mechanical obstruction. If there is concern for developing/increasing bowel obstruction, advise serial abdominal radiographs. 3. Stable 3 mm nonobstructing left renal stone. Signed by: Dr. Dio Bocanegra D.O., M.M.M. on 07/14/2018 4:42 PM Dictated By: DIO BOCANEGRA DO 41 Transcribed By: GAYATRI on 07/14/181641 COPY TO: AMBER GOMES MDCreatine Kinase [id number] 15:15:00 Test Item Value Reference Range Interpretation Comments Creatine Kinase MB (test code = 0.30 0-5.0 73102-6) [facility] [id number] 15:15:00 Test Item Value Reference Range Interpretation Comments Troponin I (test code = [id number]) < 0.001 0-0.300 [facility]2018-07-14 15:15:00 Test Item Value Reference Range Interpretation Comments Thyroid Stimulating Hormone (TSH) (test 0.601 0.350-4.940 code = 89285-0) [facility] [id number] 15:15:00 Test Item Value Reference Range Interpretation Comments Creatine Kinase MB (test code = 0.30 0-5.0 36894-3) [facility] [id number] 15:15:00 Test Item Value Reference Range Interpretation Comments Troponin I (test code = [id number]) -0.001 0-0.300 [facility] (TSH)2018-07-14 15:15:00 Test Item Value Reference Range Interpretation Comments Thyroid Stimulating Hormone (TSH) (test 0.601 0.350-4.940 code = 09852-1) [facility] [id number] 15:15:00 Test Item Value Reference Range Interpretation Comments Creatine Kinase MB (test code = 0.30 0-5.0 27975-6) [place] [id number] 15:15:00 Test Item Value Reference Range Interpretation Comments Troponin I (test code = [id number]) < 0.001 0-0.300 [facility]Th[facility] (TSH)2018-07-14 15:15:00 Test Item Value Reference Range Interpretation Comments Thyroid Stimulating Hormone (TSH) (test 0.601 0.350-4.940 code = 13149-9) [facility] Kinase [id number] 15:15:00 Test Item Value Reference Range Interpretation Comments Creatine Kinase MB (test code = 0.30 0-5.0 09354-8) [place] [id number] 15:15:00 Test Item Value Reference Range Interpretation Comments Troponin I (test code = NVS2910) < 0.001 0-0.300 [facility]Th[facility] (TSH)2018-07-14 15:15:00 Test Item Value Reference Range Interpretation Comments Thyroid Stimulating Hormone (TSH) (test 0.601 0.350-4.940 code = 66541-4) [facility]Total Tpqsqjlau0603-96-05 15:02:00 Test Item Value Reference Range Interpretation Comments Total Bilirubin (test code = 1975-2) 1.5 0.2-1.2 H [facility] Nrfpiyadp8904-60-03 15:02:00 Test Item Value Reference Range Interpretation Comments Total Bilirubin (test code = 1975-2) 1.5 0.2-1.2 H [facility] HospitalMagnesium Gxoix7244-97-28 14:52:00 Test Item Value Reference Range Interpretation Comments Magnesium Level (test code = 84985-4) 1.8 1.3-2.1 [facility]Creatine Bxhebf4949-81-53 14:52:00 Test Item Value Reference Range Interpretation Comments Creatine Kinase (test code = 2157-6) 37 29-168 [facility]Amylase Itfci0140-54-15 14:52:00 Test Item Value Reference Range Interpretation Comments Amylase Level (test code = 1798-8) 63 25-125 [facility] HospitalLipase2018-10-04 14:52:00 Test Item Value Reference Range Interpretation Comments Lipase (test code = 3040-3) 40 8-78 [facility] Tayoy2967-29-19 14:52:00 Test Item Value Reference Range Interpretation Comments Sodium Level (test code = 2951-2) 140 136-145 [facility]Potassium Kpgao8554-99-19 14:52:00 Test Item Value Reference Range Interpretation Comments Potassium Level (test code = 2823-3) 4.3 3.5-5.1 [facility]Chloride Sknxl5949-00-27 14:52:00 Test Item Value Reference Range Interpretation Comments Chloride Level (test code = 2075-0) 105 98-107 [facility] HospitalCarbon Dioxide Dwyaz2966-93-78 14:52:00 Test Item Value Reference Range Interpretation Comments Carbon Dioxide Level (test code = -29 8-9) [facility] HospitalAnion Blu2840-30-26 14:52:00 Test Item Value Reference Range Interpretation Comments Anion Gap (test code = 41048-2) 16.3 8-16 H [facility] HospitalBlood Urea Yjlpnesr5652-92-43 14:52:00 Test Item Value Reference Range Interpretation Comments Blood Urea Nitrogen (test code = 05-05 3094-0) [facility]Creatinine2018-10-04 14:52:00 Test Item Value Reference Range Interpretation Comments Creatinine (test code = 2160-0) 0.90 0.57-1.11 [facility] HospitalBUN/Creatinine Pawcr7062-08-01 14:52:00 Test Item Value Reference Range Interpretation Comments BUN/Creatinine Ratio (test code = 13 04-04 3097-3) [facility] HospitalEstimat Glomerular Filtration Rkdh2565-33-84 14:52:00 Test Item Value Reference Range Interpretation Comments Estimat Glomerular Filtration Rate 60- >60 (test code = 836262071) Ranges were taken from the National Kidney Disease Education Program and the National Kidney Foundation literature.Reference ranges:60 or greater: Taqwem59- 59 (for 3 consecutive months): Chronic kidneydisease 15 or less: Kidney failure [facility] HospitalGlucose Orgik4859-17-48 14:52:00 Test Item Value Reference Range Interpretation Comments Glucose Level (test code = UQV8943) 184 74-118 H [facility] HospitalCalcium Tbewv0657-09-42 14:52:00 Test Item Value Reference Range Interpretation Comments Calcium Level (test code = 29117-6) 10.2 8.4-10.2 [facility]Magnesium Nkjsd4575-41-76 14:52:00 Test Item Value Reference Range Interpretation Comments Magnesium Level (test code = 47878-3) 1.8 1.3-2.1 [facility] HospitalAspartate Amino Transf (AST/SGOT)2018-07-14 14:52:00 Test Item Value Reference Range Interpretation Comments Aspartate Amino Transf (AST/SGOT) (test 63 5-34 H code = Aspartate Amino Transf (AST/SGOT)) [facility] HospitalAlanine Aminotransferase (ALT/SGPT)2018-07-14 14:52:00 Test Item Value Reference Range Interpretation Comments Alanine Aminotransferase (ALT/SGPT) 38 0-55 (test code = 1742-6) [facility] HospitalTotal Ixiaiwz3836-50-22 14:52:00 Test Item Value Reference Range Interpretation Comments Total Protein (test code = 2885-2) 8.7 6.5-8.1 H [facility] HospitalAlbumin2018-10-04 14:52:00 Test Item Value Reference Range Interpretation Comments Albumin (test code = 1751-7) 3.8 3.5-5.0 [facility] HospitalGlobulin2018-10-04 14:52:00 Test Item Value Reference Range Interpretation Comments Globulin (test code = 61308-8) 4.9 2.3-3.5 H [facility] HospitalAlbumin/Globulin Ajmzr4879-53-16 14:52:00 Test Item Value Reference Range Interpretation Comments Albumin/Globulin Ratio (test code = 0.8 0.8-2.0 1759-0) [facility] HospitalAlkaline Zustcqindmo5826-95-31 14:52:00 Test Item Value Reference Range Interpretation Comments Alkaline Phosphatase (test code = 103 40-150 6768-6) [facility]Creatine Muqvai0603-26-22 14:52:00 Test Item Value Reference Range Interpretation Comments Creatine Kinase (test code = 2157-6) 37 29-168 [facility] HospitalAmylase Gbelk5025-80-27 14:52:00 Test Item Value Reference Range Interpretation Comments Amylase Level (test code = 1798-8) 63 25-125 [facility]Lipase2018-10-04 14:52:00 Test Item Value Reference Range Interpretation Comments Lipase (test code = 3040-3) 40 8-78 [facility] Campusodium Peitr5315-09-53 14:52:00 Test Item Value Reference Range Interpretation Comments Sodium Level (test code = 2951-2) 140 136-145 [facility]Potassium Tvgaf4275-23-36 14:52:00 Test Item Value Reference Range Interpretation Comments Potassium Level (test code = 2823-3) 4.3 3.5-5.1 [facility] HospitalChloride Yupln1819-64-70 14:52:00 Test Item Value Reference Range Interpretation Comments Chloride Level (test code = 2075-0) 105 98-107 [facility] HospitalCarbon Dioxide Wpzuh4226-17-60 14:52:00 Test Item Value Reference Range Interpretation Comments Carbon Dioxide Level (test code = 23 22-29 2027-9) [facility] HospitalAnion Uwi7994-15-05 14:52:00 Test Item Value Reference Range Interpretation Comments Anion Gap (test code = 18203-7) 16.3 8-16 H [facility] HospitalBlood Urea Edqsgtxq7086-69-68 14:52:00 Test Item Value Reference Range Interpretation Comments Blood Urea Nitrogen (test code = 05-05 3094-0) [facility]Creatinine2018-10-04 14:52:00 Test Item Value Reference Range Interpretation Comments Creatinine (test code = 2160-0) 0.90 0.57-1.11 [facility]BUN/Creatinine Ncqco6547-13-91 14:52:00 Test Item Value Reference Range Interpretation Comments BUN/Creatinine Ratio (test code = 04-04 3097-3) [facility] HospitalEstimat Glomerular Filtration Lwup1618-90-32 14:52:00 Test Item Value Reference Range Interpretation Comments Estimat Glomerular Filtration Rate > 60 >60 (test code = 884296037) Ranges were taken from the National Kidney Disease Education Program and the National Kidney Foundation literature.Reference ranges:60 or greater: Cakrcz22- 59 (for 3 consecutive months): Chronic kidneydisease 15 or less: Kidney failure [facility] HospitalGlucose Ayswg1397-85-63 14:52:00 Test Item Value Reference Range Interpretation Comments Glucose Level (test code = YVU6821) 184 74-118 H [facility] HospitalCalcium Qiycu7366-69-01 14:52:00 Test Item Value Reference Range Interpretation Comments Calcium Level (test code = 05895-7) 10.2 8.4-10.2 [facility]Magnesium Qqbyy5488-55-54 14:52:00 Test Item Value Reference Range Interpretation Comments Magnesium Level (test code = 42651-2) 1.8 1.3-2.1 [facility] HospitalAspartate Amino Transf (AST/SGOT)2018-07-14 14:52:00 Test Item Value Reference Range Interpretation Comments Aspartate Amino Transf (AST/SGOT) (test 63 5-34 H code = Aspartate Amino Transf (AST/SGOT)) [facility] HospitalAlanine Aminotransferase (ALT/SGPT)2018-07-14 14:52:00 Test Item Value Reference Range Interpretation Comments Alanine Aminotransferase (ALT/SGPT) 38 0-55 (test code = 1742-6) [facility] HospitalTotal Rmaigta8556-48-61 14:52:00 Test Item Value Reference Range Interpretation Comments Total Protein (test code = 2885-2) 8.7 6.5-8.1 H [facility] HospitalAlbumin2018-10-04 14:52:00 Test Item Value Reference Range Interpretation Comments Albumin (test code = 1751-7) 3.8 3.5-5.0 [facility]Globulin2018-10-04 14:52:00 Test Item Value Reference Range Interpretation Comments Globulin (test code = 73710-7) 4.9 2.3-3.5 H [facility] HospitalAlbumin/Globulin Mhitl2656-16-65 14:52:00 Test Item Value Reference Range Interpretation Comments Albumin/Globulin Ratio (test code = 0.8 0.8-2.0 1759-0) [facility] HospitalAlkaline Phnpuzpcjgt6201-48-40 14:52:00 Test Item Value Reference Range Interpretation Comments Alkaline Phosphatase (test code = 103 40-150 6768-6) [facility] HospitalCreatine Fbkibs8066-13-85 14:52:00 Test Item Value Reference Range Interpretation Comments Creatine Kinase (test code = 2157-6) 37 29-168 [facility] HospitalAmylase Mvqwk2480-13-20 14:52:00 Test Item Value Reference Range Interpretation Comments Amylase Level (test code = 1798-8) 63 25-125 [facility] HospitalLipase2018-10-04 14:52:00 Test Item Value Reference Range Interpretation Comments Lipase (test code = 3040-3) 40 8-78 [facility] HospitalMagnesium Kpilc1747-08-13 14:52:00 Test Item Value Reference Range Interpretation Comments Magnesium Level (test code = 02938-8) 1.8 1.3-2.1 [facility]Creatine Kcudaz9644-61-34 14:52:00 Test Item Value Reference Range Interpretation Comments Creatine Kinase (test code = 2157-6) 37 29-168 [facility] HospitalAmylase Sumdj4759-99-57 14:52:00 Test Item Value Reference Range Interpretation Comments Amylase Level (test code = 1798-8) 63 25-125 [facility] HospitalLipase2018-10-04 14:52:00 Test Item Value Reference Range Interpretation Comments Lipase (test code = 3040-3) 40 8-78 [facility] HospitalUrine Amorphous Mlnuqjlb8118-80-35 14:41:00 Test Item Value Reference Range Interpretation Comments Urine Amorphous Sediment (test code = FEW FEW 8246-1) [facility] Mnpht1631-69-82 14:41:00 Test Item Value Reference Range Interpretation Comments Urine Mucus (test code = 8247-9) FEW RARE H [facility] HospitalU[facility] [id number] 14:41:00 Test Item Value Reference Range Interpretation Comments Urine WBC (test code = 5821-4) 0-5 0-5 [facility] [id number] 14:41:00 Test Item Value Reference Range Interpretation Comments Urine RBC (test code = 12909-3) 6-10 0-5 H [facility] Ovyoxlxj0100-49-52 14:41:00 Test Item Value Reference Range Interpretation Comments Urine Bacteria (test code = 84987-8) FEW NONE [facility] Epithelial Wzgub8783-06-91 14:41:00 Test Item Value Reference Range Interpretation Comments Urine Epithelial Cells (test code = FEW NONE 12422-8) [facility] Amorphous Lhrrnkrf8822-23-35 14:41:00 Test Item Value Reference Range Interpretation Comments Urine Amorphous Sediment (test code = FEW FEW 8246-1) [facility] Gpyrf2576-64-13 14:41:00 Test Item Value Reference Range Interpretation Comments Urine Mucus (test code = 8247-9) FEW RARE H [facility] [id number] 14:41:00 Test Item Value Reference Range Interpretation Comments Urine WBC (test code = 5821-4) 0-5 0-5 [facility] [id number] 14:41:00 Test Item Value Reference Range Interpretation Comments Urine RBC (test code = 78261-8) 6-10 0-5 H [facility] Epmiuvaj9265-62-85 14:41:00 Test Item Value Reference Range Interpretation Comments Urine Bacteria (test code = 01291-6) FEW NONE [facility] Epithelial Cbqum0744-22-89 14:41:00 Test Item Value Reference Range Interpretation Comments Urine Epithelial Cells (test code = FEW NONE 54241-1) [facility] Amorphous Jslruzlc6003-59-65 14:41:00 Test Item Value Reference Range Interpretation Comments Urine Amorphous Sediment (test code = FEW FEW 8246-1) [facility] Yvzgl9747-30-65 14:41:00 Test Item Value Reference Range Interpretation Comments Urine Mucus (test code = 8247-9) FEW RARE H [facility] Amorphous Sqxzgsvy0465-40-22 14:41:00 Test Item Value Reference Range Interpretation Comments Urine Amorphous Sediment (test code = FEW FEW 8246-1) [facility] Esnuj2343-12-64 14:41:00 Test Item Value Reference Range Interpretation Comments Urine Mucus (test code = 8247-9) FEW RARE H [facility] HospitalProthromb Time International Ctkkd2716-33-50 14:39:00 Test Item Value Reference Range Interpretation Comments Prothromb Time International Ratio 2.20 (test code = 6301-6) Oral Anticoagulant Therapy INR Values:1. Low Intensity Therapy 1.5 - 2.02. Moderate Intensity Therapy 2.0 - 3.03. High Intensity Therapy(1) 2.5 - 3.54. High Intensity Therapy(2) 3.0 - 4.05. Panic ValueINR > 5.0[facility] HospitalActivated Partial Thromboplast Aahy4141-37-53 14:39:00 Test Item Value Reference Range Interpretation Comments Activated Partial Thromboplast Time 44.8 23.8-35.5 H (test code = 21186-0) [facility] HospitalProthrombin Zkfy2562-05-66 14:39:00 Test Item Value Reference Range Interpretation Comments Prothrombin Time (test code = 5902-2) 26.1 11.9-14.5 H [facility] HospitalProthromb Time International Udrag6490-78-13 14:39:00 Test Item Value Reference Range Interpretation Comments Prothromb Time International Ratio 2.20 (test code = 6301-6) Oral Anticoagulant Therapy INR Values:1. Low Intensity Therapy 1.5 - 2.02. Moderate Intensity Therapy 2.0 - 3.03. High Intensity Therapy(1) 2.5 - 3.54. High Intensity Therapy(2) 3.0 - 4.05. Panic ValueINR > 5.0[facility]Act[facility] Partial Thromboplast Jrba2113-95-80 14:39:00 Test Item Value Reference Range Interpretation Comments Activated Partial Thromboplast Time 44.8 23.8-35.5 H (test code = 60478-9) [facility] HospitalProthrombin Lwgh7587-25-40 14:39:00 Test Item Value Reference Range Interpretation Comments Prothrombin Time (test code = 5902-2) 26.1 11.9-14.5 H [facility] HospitalProthromb Time International Gdlwy9016-71-19 14:39:00 Test Item Value Reference Range Interpretation Comments Prothromb Time International Ratio 2.20 (test code = 6301-6) Oral Anticoagulant Therapy INR Values:1. Low Intensity Therapy 1.5 - 2.02. Moderate Intensity Therapy 2.0 - 3.03. High Intensity Therapy(1) 2.5 - 3.54. High Intensity Therapy(2) 3.0 - 4.05. Panic ValueINR > 5.0[facility]Act[facility] Partial Thromboplast Iual2528-62-64 14:39:00 Test Item Value Reference Range Interpretation Comments Activated Partial Thromboplast Time 44.8 23.8-35.5 H (test code = 98773-9) [facility] HospitalProthrombin Fjmh0027-12-51 14:39:00 Test Item Value Reference Range Interpretation Comments Prothrombin Time (test code = 5902-2) 26.1 11.9-14.5 H [facility] HospitalProthromb Time International Uyhbt5733-15-19 14:39:00 Test Item Value Reference Range Interpretation Comments Prothromb Time International Ratio 2.20 (test code = 6301-6) Oral Anticoagulant Therapy INR Values:1. Low Intensity Therapy 1.5 - 2.02. Moderate Intensity Therapy 2.0 - 3.03. High Intensity Therapy(1) 2.5 - 3.54. High Intensity Therapy(2) 3.0 - 4.05. Panic ValueINR > 5.0[facility] HospitalAct[facility] Partial Thromboplast Ldzh1929-73-24 14:39:00 Test Item Value Reference Range Interpretation Comments Activated Partial Thromboplast Time 44.8 23.8-35.5 H (test code = 58027-1) [facility] HospitalProthrombin Hrkq9804-68-87 14:39:00 Test Item Value Reference Range Interpretation Comments Prothrombin Time (test code = 5902-2) 26.1 11.9-14.5 H [facility] HospitalU[facility] Gsddf1723-38-13 14:35:00 Test Item Value Reference Range Interpretation Comments Urine Color (test code = 5778-6) YELLOW YELLOW [facility] Hipnubm8793-25-96 14:35:00 Test Item Value Reference Range Interpretation Comments Urine Clarity (test code = 60416-2) SL CLOUDY CLEAR [facility] Specific Ewbqhqw5927-01-87 14:35:00 Test Item Value Reference Range Interpretation Comments Urine Specific [place] (test code = 1.025 1.010-1.025 5811-5) [facility] [id number] 14:35:00 Test Item Value Reference Range Interpretation Comments Urine pH (test code = 61054-3) 6 5-7 [facility] Leukocyte Lwaunjow5248-78-16 14:35:00 Test Item Value Reference Range Interpretation Comments Urine Leukocyte Esterase (test code NEGATIVE NEGATIVE = 5799-2) [facility] Onbrqji3122-05-68 14:35:00 Test Item Value Reference Range Interpretation Comments Urine Nitrite (test code = 33523-5) NEGATIVE NEGATIVE [facility] Gjnpwpb6942-66-20 14:35:00 Test Item Value Reference Range Interpretation Comments Urine Protein (test code = 5804-0) NEGATIVE NEGATIVE [facility] Glucose (UA)2018-07-14 14:35:00 Test Item Value Reference Range Interpretation Comments Urine Glucose (UA) (test code = 2349-9) 3+ NEGATIVE H [facility] Spalimh0139-21-58 14:35:00 Test Item Value Reference Range Interpretation Comments Urine Ketones (test code = 27393-0) TRACE NEGATIVE H [facility] Zchihrphgxmu4991-55-45 14:35:00 Test Item Value Reference Range Interpretation Comments Urine Urobilinogen (test code = 0.2 0.2-1 74423-1) [facility] Zmumrmocg8097-51-05 14:35:00 Test Item Value Reference Range Interpretation Comments Urine Bilirubin (test code = 1978-6) NEGATIVE NEGATIVE [facility] Ygfqx9226-92-09 14:35:00 Test Item Value Reference Range Interpretation Comments Urine Blood (test code = 73541-7) TRACE NEGATIVE H [facility] Hodfe4229-18-04 14:35:00 Test Item Value Reference Range Interpretation Comments Urine Color (test code = 5778-6) YELLOW YELLOW [facility] Ktrjpca6578-46-42 14:35:00 Test Item Value Reference Range Interpretation Comments Urine Clarity (test code = 51693-7) SL CLOUDY CLEAR [facility] Specific Khfngpk5250-18-50 14:35:00 Test Item Value Reference Range Interpretation Comments Urine Specific [place] (test code = 1.025 1.010-1.025 5811-5) [facility] [id number] 14:35:00 Test Item Value Reference Range Interpretation Comments Urine pH (test code = 53397-7) 6 5-7 [facility] Leukocyte Zkovjlem3241-06-55 14:35:00 Test Item Value Reference Range Interpretation Comments Urine Leukocyte Esterase (test code NEGATIVE NEGATIVE = 5799-2) [facility] Tlhjvhs9180-20-74 14:35:00 Test Item Value Reference Range Interpretation Comments Urine Nitrite (test code = 26810-4) NEGATIVE NEGATIVE [facility] Erkiwke7143-63-95 14:35:00 Test Item Value Reference Range Interpretation Comments Urine Protein (test code = 5804-0) NEGATIVE NEGATIVE [facility] Glucose (UA)2018-07-14 14:35:00 Test Item Value Reference Range Interpretation Comments Urine Glucose (UA) (test code = 2349-9) 3+ NEGATIVE H [facility] Eqxnjmb0888-73-27 14:35:00 Test Item Value Reference Range Interpretation Comments Urine Ketones (test code = 24701-7) TRACE NEGATIVE H [facility] Ydrsvpmiseks4208-05-50 14:35:00 Test Item Value Reference Range Interpretation Comments Urine Urobilinogen (test code = 0.2 0.2-1 63275-6) [facility] Wediquwfd5879-85-84 14:35:00 Test Item Value Reference Range Interpretation Comments Urine Bilirubin (test code = 1978-6) NEGATIVE NEGATIVE [facility] Xfxhf7639-13-43 14:35:00 Test Item Value Reference Range Interpretation Comments Urine Blood (test code = 28192-5) TRACE NEGATIVE H [facility] HospitalWhite Blood Omtjk1766-26-93 14:31:00 Test Item Value Reference Range Interpretation Comments White Blood Count (test code = 6690-2) 7.35 4.8-10.8 [facility]Red Blood Tcufo1676-76-90 14:31:00 Test Item Value Reference Range Interpretation Comments Red Blood Count (test code = 789-8) 5.00 3.6-5.1 [facility]Hemoglobin2018-10-04 14:31:00 Test Item Value Reference Range Interpretation Comments Hemoglobin (test code = 38978-1) 13.2 12.0-16.0 [facility] HospitalHematocrit2018-10-04 14:31:00 Test Item Value Reference Range Interpretation Comments Hematocrit (test code = 4544-3) 42.6 34.2-44.1 [facility] HospitalMean Corpuscular Udobih8693-18-97 14:31:00 Test Item Value Reference Range Interpretation Comments Mean Corpuscular Volume (test code = 85.2 81-99 787-2) [facility] HospitalMean Corpuscular Aiputviafu0575-80-67 14:31:00 Test Item Value Reference Range Interpretation Comments Mean Corpuscular Hemoglobin (test code 26.4 28-32 L = 785-6) [facility] HospitalMean Corpuscular Hemoglobin Yqvgwkk6665-27-79 14:31:00 Test Item Value Reference Range Interpretation Comments Mean Corpuscular Hemoglobin Concent 31.0 31-35 (test code = 786-4) [facility] HospitalRed Cell Distribution Dujmb9413-97-94 14:31:00 Test Item Value Reference Range Interpretation Comments Red Cell Distribution Width (test code 18.6 11.7-14.4 H = 29760-9) [facility] HospitalPlatelet Ohass7223-86-80 14:31:00 Test Item Value Reference Range Interpretation Comments Platelet Count (test code = 777-3) 160 140-360 [facility] HospitalNeutrophils (%) (Auto)2018-07-14 14:31:00 Test Item Value Reference Range Interpretation Comments Neutrophils (%) (Auto) (test code = 72.5 38.7-80.0 15425-8) [facility]Lymphocytes (%) (Auto)2018-07-14 14:31:00 Test Item Value Reference Range Interpretation Comments Lymphocytes (%) (Auto) (test code = 17.7 18.0-39.1 L 736-9) [facility] ([facility])2018-07-14 14:31:00 Test Item Value Reference Range Interpretation Comments Monocytes (%) (Auto) (test code = 6.1 4.4-11.3 5905-5) [facility] (Auto)2018-07-14 14:31:00 Test Item Value Reference Range Interpretation Comments Eosinophils (%) (Auto) (test code = 2.4 0.0-6.0 713-8) [facility] (Auto)2018-07-14 14:31:00 Test Item Value Reference Range Interpretation Comments Basophils (%) (Auto) (test code = 1.0 0.0-1.0 706-2) [facility]IM [facility]ULOCYTES %2018-07-14 14:31:00 Test Item Value Reference Range Interpretation Comments IM GRANULOCYTES % (test code = IM 0.3 0.0-1.0 GRANULOCYTES %) [facility]Neutrophils # (Auto)2018-07-14 14:31:00 Test Item Value Reference Range Interpretation Comments Neutrophils # (Auto) (test code = 5.3 2.1-6.9 751-8) [facility]Lymphocytes # (Auto)2018-07-14 14:31:00 Test Item Value Reference Range Interpretation Comments Lymphocytes # (Auto) (test code = 1.3 1.0-3.2 79498-1) [facility]Monocytes # (Auto)2018-07-14 14:31:00 Test Item Value Reference Range Interpretation Comments Monocytes # (Auto) (test code = 742-7) 0.5 0.2-0.8 [facility]Eosinophils # (Auto)2018-07-14 14:31:00 Test Item Value Reference Range Interpretation Comments Eosinophils # (Auto) (test code = 0.2 0.0-0.4 711-2) [facility]Basophils # (Auto)2018-07-14 14:31:00 Test Item Value Reference Range Interpretation Comments Basophils # (Auto) (test code = 704-7) 0.1 0.0-0.1 [facility]Absolute Immature Granulocyte ([id number] 14:31:00 Test Item Value Reference Range Interpretation Comments Absolute Immature Granulocyte (auto 0.02 0-0.1 (test code = Absolute Immature Granulocyte (auto) [facility]White Blood Abywx9293-06-56 14:31:00 Test Item Value Reference Range Interpretation Comments White Blood Count (test code = 6690-2) 7.35 4.8-10.8 [facility]Red Blood Onecz2443-86-76 14:31:00 Test Item Value Reference Range Interpretation Comments Red Blood Count (test code = 789-8) 5.00 3.6-5.1 [facility]Hemoglobin2018-10-04 14:31:00 Test Item Value Reference Range Interpretation Comments Hemoglobin (test code = 93443-9) 13.2 12.0-16.0 [facility] HospitalHematocrit2018-10-04 14:31:00 Test Item Value Reference Range Interpretation Comments Hematocrit (test code = 4544-3) 42.6 34.2-44.1 [facility]Mean Corpuscular Hxcalk7526-08-85 14:31:00 Test Item Value Reference Range Interpretation Comments Mean Corpuscular Volume (test code = 85.2 81-99 787-2) [facility]Mean Corpuscular Pzyljujioo5555-69-69 14:31:00 Test Item Value Reference Range Interpretation Comments Mean Corpuscular Hemoglobin (test code 26.4 28-32 L = 785-6) [facility]Mean Corpuscular Hemoglobin Oiegmqc9072-00-08 14:31:00 Test Item Value Reference Range Interpretation Comments Mean Corpuscular Hemoglobin Concent 31.0 31-35 (test code = 786-4) [facility]Red Cell Distribution Fdodl2371-33-55 14:31:00 Test Item Value Reference Range Interpretation Comments Red Cell Distribution Width (test code 18.6 11.7-14.4 H = 71739-9) [facility] HospitalPlatelet Pekwc9179-85-57 14:31:00 Test Item Value Reference Range Interpretation Comments Platelet Count (test code = 777-3) 160 140-360 [facility]Neutrophils (%) (Auto)2018-07-14 14:31:00 Test Item Value Reference Range Interpretation Comments Neutrophils (%) (Auto) (test code = 72.5 38.7-80.0 34950-1) [facility] HospitalLymphocytes (%) (Auto)2018-07-14 14:31:00 Test Item Value Reference Range Interpretation Comments Lymphocytes (%) (Auto) (test code = 17.7 18.0-39.1 L 736-9) [facility]Monocytes (%) (Auto)2018-07-14 14:31:00 Test Item Value Reference Range Interpretation Comments Monocytes (%) (Auto) (test code = 6.1 4.4-11.3 5905-5) [facility]Eosinophils (%) (Auto)2018-07-14 14:31:00 Test Item Value Reference Range Interpretation Comments Eosinophils (%) (Auto) (test code = 2.4 0.0-6.0 713-8) [facility]Basophils (%) (Auto)2018-07-14 14:31:00 Test Item Value Reference Range Interpretation Comments Basophils (%) (Auto) (test code = 1.0 0.0-1.0 706-2) [facility]IM GRANULOCYTES %2018-07-14 14:31:00 Test Item Value Reference Range Interpretation Comments IM GRANULOCYTES % (test code = IM 0.3 0.0-1.0 GRANULOCYTES %) [facility]Neutrophils # (Auto)2018-07-14 14:31:00 Test Item Value Reference Range Interpretation Comments Neutrophils # (Auto) (test code = 5.3 2.1-6.9 751-8) [facility] HospitalLymphocytes # (Auto)2018-07-14 14:31:00 Test Item Value Reference Range Interpretation Comments Lymphocytes # (Auto) (test code = 1.3 1.0-3.2 22691-3) [facility]Monocytes # (Auto)2018-07-14 14:31:00 Test Item Value Reference Range Interpretation Comments Monocytes # (Auto) (test code = 742-7) 0.5 0.2-0.8 [facility]Eosinophils # (Auto)2018-07-14 14:31:00 Test Item Value Reference Range Interpretation Comments Eosinophils # (Auto) (test code = 0.2 0.0-0.4 711-2) [facility]Basophils # (Auto)2018-07-14 14:31:00 Test Item Value Reference Range Interpretation Comments Basophils # (Auto) (test code = 704-7) 0.1 0.0-0.1 [facility] HospitalAbsolute Immature Granulocyte ([id number] 14:31:00 Test Item Value Reference Range Interpretation Comments Absolute Immature Granulocyte (auto 0.02 0-0.1 (test code = Absolute Immature Granulocyte (auto) [facility] [place] Tjvycbx9637-35-05 06:44:00 Test Item Value Reference Range Interpretation Comments Bedside Glucose (test code = 92296-8) 171 70-120 H Meter ID: [id number] [id number] 06:44:00 Test Item Value Reference Range Interpretation Comments Bedside Glucose (test code = 76824-8) 171 70-120 H Meter ID: [id number] [facility]2018-[facility] 16:47:00 Test Item Value Reference Range Interpretation Comments FERRITIN (BEAKER) (test code = 361) 29 ng/mL 5-275 HEPATITIS B CORE ANTIBODY, [id number] 15:24:00 Test Item Value Reference Range Interpretation Comments HEPATITIS B CORE TOTAL ANTIBODY Reactive Nonreactive A (BEAKER) (test code = 497) HEPATITIS B SURFACE [id number] 15:23:00 Test Item Value Reference Range Interpretation Comments HEPATITIS B SURFACE ANTIBODY 1539.3 mIU/mL <8.0 H (BEAKER) (test code = 647) HEPATITIS A ANTIBODY, [id number] 15:23:00 Test Item Value Reference Range Interpretation Comments HEPATITIS A IGG ANTIBODY (BEAKER) Reactive Nonreactive A (test code = 2797) ALPHA FETOPROTEIN (AFP), TUMOR [id number] 15:20:00 Test Item Value Reference Range Interpretation Comments ALPHA-FETOPROTEIN (BEAKER) (test 3.9 ng/mL <10.0 code = 1094) HEPATITIS B SURFACE [id number] 14:54:00 Test Item Value Reference Range Interpretation Comments HEPATITIS B SURFACE ANTIGEN (2) Nonreactive Nonreactive (BEAKER) (test code = 2585) HEPATITIS C [id number] 14:54:00 Test Item Value Reference Range Interpretation [...] L (test code = 2590) COMPREHENSIVE METABOLIC [id number] 14:21:00 Test Item Value Reference Range Interpretation [...] NOT APPLICABLE FOR DIALYSIS PATIEN TS. BILIRUBIN, [id number] 14:21:00 Test Item Value Reference Range Interpretation Comments BILIRUBIN DIRECT (BEAKER) (test 0.5 mg/dL 0.1-0.5 code = 706) CBC W/PLT COUNT & AUTO [id number] 14:14:00 Test Item Value Reference Range Interpretation [...] (BEAKER) (test code = 2801) CT ABDOMEN/PELVIS [id number] 21:58:00 [place] [address] PatientName: MARLYS GARNETT MR #: [id number] : 1965 Age/Sex: 53/F Req #: [id number] Adm Physician: Ordered by: HUGH COELLO MD Report #: [id number] Location: Room/Bed: Procedure: [id number] CT/CT ABDOMEN/PELVIS W Exam Date: 03/27/18 Exam [...] performed. IV Contrast: 100 cc Isovue-370 Oral Contrast:None CTDIvol has been reviewed. It is below the limits set by the Radiation Protocol Committee (RPC). FINDINGS: LOWER THORAX: No consolidations LIVER: Hepatomegaly with subtle nodular liver contour andrelative enlargement of the left lobe and caudate lobes of the liver. BILIARY: Cholecystectomy. No ductal dilation. SPLEEN: Splenomegaly to 15.7 cm in craniocaudal dimension. PANCREAS: No masses ADRENALS: No nodules KIDNEYS: Symmetric perfusion. No enhancing masses. No hydronephrosis. GI TRACT: No distention, wall thickening or evidence of obstruction. VESSELS: Moderate atherosclerotic changes of theabdominal aorta without aneurysm. There is an infrarenal inferior vena cava filter. The main portal vein is patent. PERITONEUM/RETROPERITONEUM: Mesenteric edema and trace ascites around the inferior liver. LYMPH NODES: No lymphadenopathy REPRODUCTIVE ORGANS: Not visualized BLADDER: Decompressed SOFTTISSUES: Unremarkable BONES: No suspicious bone lesions. IMPRESSION: Findings consistent with early cirrhosis and portal hypertension with trace ascites. Signed by: Dr. Zenaida Kumari M.D. on 03/27/2018 10:06 PM Dictated By: ZENAIDA KUMARI MD 05 Transcribed By: GAYATRI on 03/27/182205 COPY TO: HUGH COELLO [id number] 21:32:00 Test Item Value Reference Range Interpretation Comments Urine WBC (test code = 5821-4) 11-20 0-5 H [facility] [id number] 21:32:00 Test Item Value Reference Range Interpretation Comments Urine RBC (test code = 09853-1) NONE 0-5 [facility] [id number] 21:32:00 Test Item Value Reference Range Interpretation Comments Urine Bacteria (test code = 69178-6) MODERATE NONE H [facility] Epithelial [id number] 21:32:00 Test Item Value Reference Range Interpretation Comments Urine Epithelial Cells (test code = MANY NONE 74847-5) [facility] [id number] 21:32:00 Test Item Value Reference Range Interpretation Comments Urine Mucus (test code = 8247-9) MANY RARE H [facility] [id number] 21:15:00 Test Item Value Reference Range Interpretation Comments Urine Color (test code = 5778-6) JULIO C YELLOW H [facility] [id number] 21:15:00 Test Item Value Reference Range Interpretation Comments Urine Clarity (test code = 93993-4) CLEAR CLEAR [facility] Specific [id number] 21:15:00 Test Item Value Reference Range Interpretation Comments Urine Specific [place] (test code = 1.030 1.010-1.025 H 5811-5) [facility] [id number] 21:15:00 Test Item Value Reference Range Interpretation Comments Urine pH (test code = 53566-4) 6 5-7 [facility] Leukocyte [id number] 21:15:00 Test Item Value Reference Range Interpretation Comments Urine Leukocyte Esterase (test code NEGATIVE NEGATIVE = 5799-2) [facility] [id number] 21:15:00 Test Item Value Reference Range Interpretation Comments Urine Nitrite (test code = 84431-3) NEGATIVE NEGATIVE [facility] [id number] 21:15:00 Test Item Value Reference Range Interpretation Comments Urine Protein (test code = 5804-0) 1+ NEGATIVE H [facility] Glucose (UA)2018-03-27 21:15:00 Test Item Value Reference Range Interpretation Comments Urine Glucose (UA) (test code = NEGATIVE NEGATIVE 2349-9) [facility] [id number] 21:15:00 Test Item Value Reference Range Interpretation Comments Urine Ketones (test code = 93468-2) 1+ NEGATIVE H [facility] Hrshugtpgvlp2555-67-54 21:15:00 Test Item Value Reference Range Interpretation Comments Urine Urobilinogen (test code = 1 0.2-1 71635-6) [facility] [id number] 21:15:00 Test Item Value Reference Range Interpretation Comments Urine Bilirubin (test code = 1978-6) 1+ NEGATIVE H [facility] [id number] 21:15:00 Test Item Value Reference Range Interpretation Comments Urine Blood (test code = 42277-4) NEGATIVE NEGATIVE [facility] [id number] 20:22:00 Test Item Value Reference Range Interpretation Comments Sodium Level (test code = 2951-2) 140 136-145 [facility]Potassium [id number] 20:22:00 Test Item Value Reference Range Interpretation Comments Potassium Level (test code = 2823-3) 3.8 3.5-5.1 [facility]Chloride Djnpy9906-85-40 20:22:00 Test Item Value Reference Range Interpretation Comments Chloride Level (test code = 2075-0) 105 98-107 [facility] HospitalCarbon Dioxide [id number] 20:22:00 Test Item Value Reference Range Interpretation Comments Carbon Dioxide Level (test code = -8-9) [facility]Anion Iyd0819-16-22 20:22:00 Test Item Value Reference Range Interpretation Comments Anion Gap (test code = 77690-8) 13.8 8-16 [facility]Blood Urea Kdebgtpw3640-10-87 20:22:00 Test Item Value Reference Range Interpretation Comments Blood Urea Nitrogen (test code = 22 04 3094-0) [facility] HospitalCreatinine2018-06-17 20:22:00 Test Item Value Reference Range Interpretation Comments Creatinine (test code = 2160-0) 0.85 0.57-1.11 [facility]BUN/Creatinine [id number] 20:22:00 Test Item Value Reference Range Interpretation Comments BUN/Creatinine Ratio (test code = 04-04 3097-3) [facility] HospitalEstimat Glomerular Filtration [id number] 20:22:00 Test Item Value Reference Range Interpretation Comments Estimat Glomerular Filtration Rate 60- >60 (test code = 18938-4) Ranges were taken from the National Kidney Disease Education Program and the National Kidney Foundation literature.Reference ranges:60 or greater: Iywasu73- 59 (for 3 consecutive months): Chronic kidneydisease 15 or less: Kidney failure [facility]Glucose Thgcr6381-45-80 20:22:00 Test Item Value Reference Range Interpretation Comments Glucose Level (test code = RQG7631) 260 74-118 H [facility] HospitalCalcium Zeyyj5438-19-54 20:22:00 Test Item Value Reference Range Interpretation Comments Calcium Level (test code = 92013-2) 9.4 8.4-10.2 [facility] HospitalTotal Sadtoupgv6168-94-98 20:22:00 Test Item Value Reference Range Interpretation Comments Total Bilirubin (test code = 1975-2) 0.7 0.2-1.2 [facility] HospitalAspartate Amino Transf (AST/SGOT)2018-03-27 20:22:00 Test Item Value Reference Range Interpretation Comments Aspartate Amino Transf (AST/SGOT) (test 53 5-34 H code = Aspartate Amino Transf (AST/SGOT)) [facility] HospitalAlanine Aminotransferase (ALT/SGPT)2018-03-27 20:22:00 Test Item Value Reference Range Interpretation Comments Alanine Aminotransferase (ALT/SGPT) 28 0-55 (test code = 1742-6) [facility] HospitalTotal [id number] 20:22:00 Test Item Value Reference Range Interpretation Comments Total Protein (test code = 2885-2) 8.1 6.5-8.1 [facility] HospitalAlbumin2018-06-17 20:22:00 Test Item Value Reference Range Interpretation Comments Albumin (test code = 1751-7) 3.3 3.5-5.0 L [facility] HospitalGlobulin2018-06-17 20:22:00 Test Item Value Reference Range Interpretation Comments Globulin (test code = 57741-5) 4.8 2.3-3.5 H [facility] HospitalAlbumin/Globulin [id number] 20:22:00 Test Item Value Reference Range Interpretation Comments Albumin/Globulin Ratio (test code = 0.7 0.8-2.0 L 1759-0) [facility] HospitalAlkaline Ysfjvdbyfwu9100-52-65 20:22:00 Test Item Value Reference Range Interpretation Comments Alkaline Phosphatase (test code = 92 40-150 6768-6) [facility] HospitalWhite Blood Pehca1563-69-71 20:00:00 Test Item Value Reference Range Interpretation Comments White Blood Count (test code = 6690-2) 7.38 4.8-10.8 [facility]Red Blood Ohpej9737-78-86 20:00:00 Test Item Value Reference Range Interpretation Comments Red Blood Count (test code = 789-8) 4.18 3.6-5.1 [facility]Hemoglobin2018-06-17 20:00:00 Test Item Value Reference Range Interpretation Comments Hemoglobin (test code = 37905-2) 10.4 12.0-16.0 L [facility] HospitalHematocrit2018-06-17 20:00:00 Test Item Value Reference Range Interpretation Comments Hematocrit (test code = 4544-3) 33.5 34.2-44.1 L [facility]Mean Corpuscular Enkkhf9483-81-66 20:00:00 Test Item Value Reference Range Interpretation Comments Mean Corpuscular Volume (test code = 80.1 81-99 L 787-2) [facility]Mean Corpuscular Xuqilufitq9104-13-77 20:00:00 Test Item Value Reference Range Interpretation Comments Mean Corpuscular Hemoglobin (test code 24.9 28-32 L = 785-6) [facility] HospitalMean Corpuscular Hemoglobin Jrpmrof6771-50-65 20:00:00 Test Item Value Reference Range Interpretation Comments Mean Corpuscular Hemoglobin Concent 31.0 31-35 (test code = 786-4) [facility] HospitalRed Cell Distribution [id number] 20:00:00 Test Item Value Reference Range Interpretation Comments Red Cell Distribution Width (test code 17.1 11.7-14.4 H = 13072-7) [facility] HospitalPlatelet [id number] 20:00:00 Test Item Value Reference Range Interpretation Comments Platelet Count (test code = 777-3) 163 140-360 [facility] HospitalNeutrophils (%) (Auto)2018-03-27 20:00:00 Test Item Value Reference Range Interpretation Comments Neutrophils (%) (Auto) (test code = 74.6 38.7-80.0 64685-1) [facility] HospitalLymphocytes (%) (Auto)2018-03-27 20:00:00 Test Item Value Reference Range Interpretation Comments Lymphocytes (%) (Auto) (test code = 16.1 18.0-39.1 L 736-9) [facility]Monocytes (%) (Auto)2018-03-27 20:00:00 Test Item Value Reference Range Interpretation Comments Monocytes (%) (Auto) (test code = 6.8 4.4-11.3 5905-5) [facility]Eosinophils (%) (Auto)2018-03-27 20:00:00 Test Item Value Reference Range Interpretation Comments Eosinophils (%) (Auto) (test code = 1.8 0.0-6.0 713-8) [facility]Basophils (%) (Auto)2018-03-27 20:00:00 Test Item Value Reference Range Interpretation Comments Basophils (%) (Auto) (test code = 0.3 0.0-1.0 706-2) [facility] HospitalIM GRANULOCYTES %2018-03-27 20:00:00 Test Item Value Reference Range Interpretation Comments IM GRANULOCYTES % (test code = IM 0.4 0.0-1.0 GRANULOCYTES %) [facility]Neutrophils # (Auto)2018-03-27 20:00:00 Test Item Value Reference Range Interpretation Comments Neutrophils # (Auto) (test code = 5.5 2.1-6.9 751-8) [facility] HospitalLymphocytes # (Auto)2018-03-27 20:00:00 Test Item Value Reference Range Interpretation Comments Lymphocytes # (Auto) (test code = 1.2 1.0-3.2 68020-9) [facility]Monocytes # (Auto)2018-03-27 20:00:00 Test Item Value Reference Range Interpretation Comments Monocytes # (Auto) (test code = 742-7) 0.5 0.2-0.8 [facility]Eosinophils # (Auto)2018-03-27 20:00:00 Test Item Value Reference Range Interpretation Comments Eosinophils # (Auto) (test code = 0.1 0.0-0.4 711-2) [facility]Basophils # (Auto)2018-03-27 20:00:00 Test Item Value Reference Range Interpretation Comments Basophils # (Auto) (test code = 704-7) 0.0 0.0-0.1 [facility] HospitalAbsolute Immature Granulocyte (dhdg2423-87-09 20:00:00 Test Item Value Reference Range Interpretation Comments Absolute Immature Granulocyte (auto 0.03 0-0.1 (test code = Absolute Immature Granulocyte (auto) [facility]
[2022-06-05 15:32] LABS: Lymphocytes % 9.3 % (15.3-44.8); MCV 80.7 fL (80-100); MPV 9.7 fL (7.6-11.3); RBC Red Blood Cell Count 5.46 M/uL (3.86-4.86)
--- NOTE | 2022-06-05 15:38 | RAD REPORT ---
EXAM DESCRIPTION: RAD - Chest Single View - 06/05/2022 3:03 pm CLINICAL HISTORY: ABDOMINAL DISTENTION COMPARISON: Portable 01/07/2021 TECHNIQUE: AP portable chest image was obtained 06/05/2022 3:03 pm . FINDINGS: Lung volumes are low accentuating the baseline interstitial pattern. No peripheral mass or consolidation. No significant failure or volume overload seen. Heart and vasculature are normal. No measurable pleural effusion and no pneumothorax. No acute bony abnormality seen. No acute aortic findings suspected. IMPRESSION: No acute cardiopulmonary process.
[2022-06-05 15:42] LABS: Protime INR 1.26
[2022-06-05 15:48] LABS: Albumin 3.9 g/dL (3.4-5.0); Bilirubin Direct 0.7 mg/dL (0-0.2); Magnesium 2.1 mg/dL (1.8-2.4); Potassium 4.1 mmol/L (3.5-5.1); Protein, Total 9.1 g/dL (6.4-8.2)
--- NOTE | 2022-06-05 17:34 | RAD REPORT ---
EXAM DESCRIPTION: CT - Abdomen Pelvis W Contrast - 06/05/2022 5:10 pm CLINICAL HISTORY: abdominal pain COMPARISON: Abdomen Pelvis W Contrast dated 11/11/2020; Abdomen Pelvis W Contrast dated 05/26/2019 TECHNIQUE: Biphasic, helical CT imaging of the abdomen and pelvis was performed following 100 ml non -ionic IV contrast. No oral contrast identified. All CT scans are performed using dose optimization technique as appropriate and may include automated exposure control or mA/KV adjustment according to patient size. FINDINGS: No suspicious findings in the lung bases. The liver, spleen, and pancreas show no suspicious focal findings. Cholecystectomy clips are present. No abnormal biliary tree dilatation. Symmetric renal function is seen with no hydronephrosis or suspicious renal mass. No pyelonephritis o r acute parenchymal process. Gallbladder is tightly contracted limiting assessment. No adrenal abnorm alities. Fluid is present filling but not distending the stomach. Gerard of the antrum are mildly prominent, pr obably peristalsis affect. The adjacent fat shows no congestion or edema. Duodenum is unremarkable. T he proximal jejunum is normal. There is progressive dilatation of the small bowel from mid jejunum to terminal ileum. Fecalized bowel content is seen in the distal most ileum. There appears to be strict ured or narrowed terminal ileum, probable etiology for the small bowel obstruction pattern. There are 2 anastomotic sites in the distal small bowel that have no acute component. Colon is decompressed. No free air, pneumatosis or surgically emergent finding. No focal inflammatory stranding. No bulky lymphadenopathy, mass or omental thickening. Postsurgical changes are seen in the anterior abdominal wall. There is abdominal wall laxity and than small hernia defect to the right of the umbilicus. Smal l bowel loops partially extend to the hernia defect. Acute finding or emergent finding at the hernia defect is not suspected. No suspicious bony findings. IMPRESSION: Small bowel obstruction to the level of the terminal ileum were there is evidence for st ricture or scarring. No free air, extravasation of bowel content or other surgically emergent finding.
--- NOTE | 2022-06-05 18:34 | EDPHYS ---
Physician Documentation [facility] Name: Leslie Thacker Age: 57 yrs Sex: Female : 1965 Arrival Date: 06/05/2022 Time: 14:10 Bed 13 Private MD: ED Physician Ariel Wynne HPI: 06/05 14:35 This 57 yrs old Female presents to ER via Ambulatory with complaints of Abdominal Pain, cp Vomiting. 14:35 The patient presents with abdominal pain in the upper abdomen, mid abdomen. Onset: The cp symptoms/episode began/occurred yesterday, and became worse today. The symptoms radiate to back. 14:35 Associated signs and symptoms: Pertinent positives: nausea and vomiting, constipation, cp chills, Pertinent negatives: chest pain, diarrhea, fever, vomiting blood. The symptoms are described as constant. Severity of pain: in the emergency department the pain is unchanged despite home interventions. Historical: - Allergies: 14:30 Dilaudid; iw 14:30 Doxycycline; iw 14:30 hydromorphone; iw 14:30 Keflex; iw - Home Meds: 14:30 atorvastatin 40 mg Oral tab 1 tab once daily [Active]; spironolactone 50 mg Oral tab 1 iw tab 2 times per day [Active]; levothyroxine 125 mcg tab 1 tab once daily [Active]; furosemide 20 mg Oral tab 1 tab 2 times per day [Active]; Eliquis 2.5 mg Oral tab 1 tab 2 times per day [Active]; omeprazole 40 mg Oral cpDR 1 cap once daily [Active]; ondansetron HCl 4 mg Oral tab 1 tab 2 times per day [Active]; promethazine 12.5 mg Oral tab 1 tab every 6 hours [Active]; tramadol 50 mg Oral TbDi 50 mg as needed for Pain [Active]; trazodone 100 mg Oral tab 1 tab 3 times per day [Active]; ursodiol 500 mg Oral tab 2.67 mg/kg 2 times per day [Active]; Xifaxan 550 mg Oral tab 1 tab 2 times per day [Active]; Oxycodone-Acetaminophen Oral [Active]; Levemir U-100 Insulin 100 unit/mL subcutaneous soln [Active]; Humalog U-100 Insulin 100 unit/mL Sub-Q crtg [Active]; - PMHx: 14:30 autoimmune hepatitis; Colitis; DVT; stage 4 cirrhosis; Pulmonary Embolism; IBSD; DM; iw ROS: 14:40 Constitutional: Positive for chills, Negative for fever. cp 14:40 Eyes: Negative for injury, pain, redness, and discharge. cp 14:40 ENT: Negative for drainage from ear(s), ear pain, sore throat, difficulty swallowing, difficulty handling secretions. 14:40 Cardiovascular: Negative for chest pain. 14:40 Respiratory: Negative for cough, shortness of breath, wheezing. 14:40 Abdomen/GI: Positive for abdominal pain, nausea and vomiting, constipation, abdominal distension, Negative for diarrhea, hematemesis, black/tarry stool, rectal bleeding. 14:40 Back: Positive for radiated pain. 14:40 : Negative for urinary symptoms. 14:40 Neuro: Negative for altered mental status, headache, weakness. 14:40 All other systems are negative. Exam: 14:45 Constitutional: The patient appears in no acute distress, alert, awake, cp non-diaphoretic, non-toxic, well developed, well nourished, obese. 14:45 Head/Face: Normocephalic, atraumatic. cp 14:45 Eyes: Periorbital structures: appear normal, Conjunctiva: normal, no exudate, no injection, Sclera: no appreciated abnormality, Lids and lashes: appear normal, bilaterally. 14:45 ENT: External ear(s): are unremarkable, Nose: is normal, Mouth: Lips: moist, Oral mucosa: moist, Posterior pharynx: Airway: no evidence of obstruction, patent. 14:45 Chest/axilla: Inspection: normal, Palpation: is normal, no crepitus, no tenderness. 14:45 Cardiovascular: Rate: normal, Rhythm: regular, JVD: is not appreciated. 14:45 Respiratory: the patient does not display signs of respiratory distress, Respirations: normal, no use of accessory muscles, no retractions, labored breathing, is not present, Breath sounds: are clear throughout, no decreased breath sounds, no stridor, no wheezing. 14:45 Abdomen/GI: Inspection: distension, that is moderate, obese Bowel sounds: active, all quadrants, Palpation: soft, in all quadrants, severe abdominal tenderness, in the right upper quadrant and left upper quadrant, rebound tenderness, is not appreciated, voluntary guarding, is elicited in the right upper quadrant and left upper quadrant. 14:45 Back: CVA tenderness, is absent. 14:45 Neuro: Orientation: to person, place \T\ time. Mentation: is normal, Motor: moves all fours, strength is normal, Sensation: is normal. 15:05 ECG was reviewed by the Attending Physician. Vital Signs: 14:30 BP 128 / 65; Pulse 86; Resp 16; Temp 97.5; Pulse Ox 98% ; bp 15:00 BP 127 / 68; Pulse 81; Resp 17; Pulse Ox 93% ; bp 16:00 BP 121 / 66; Pulse 81; Resp 15; Pulse Ox 98% ; bp 17:35 BP 126 / 70; Pulse 76; Resp 16; Pulse Ox 95% ; bp MDM: 14:16 Patient medically screened. cp 18:00 Data reviewed: vital signs, nurses notes, lab test result(s), EKG, radiologic studies, cp CT scan, plain films. 18:00 Test interpretation: by ED physician or midlevel provider: ECG, plain radiologic cp studies. Physician consultation: Raza Wynne MD was called at 17:50, was contacted at 17:50, regarding consult, patient's condition. 06/05 14:33 Order name: Basic Metabolic Panel; Complete Time: 16:16 06/05 16:16 Interpretation: Normal except: GLUC 203; GFR 69. 06/05 14:33 Order name: CBC with Diff; Complete Time: 16:16 cp 06/05 16:17 Interpretation: Normal except: WBC 11.30; RBC 5.46; PLT 144; RDW 16.3; CELESTINA% 86.4; LYM% cp 9.3; NEUT A 9.7. 06/05 14:33 Order name: LFT's; Complete Time: 16:16 cp 06/05 14:33 Order name: Magnesium; Complete Time: 16:16 cp 06/05 14:33 Order name: PT-INR; Complete Time: 16:16 cp 06/05 14:33 Order name: Ptt, Activated; Complete Time: 16:16 cp 06/05 14:33 Order name: XRAY Chest (1 view); Complete Time: 16:16 cp 06/05 14:33 Order name: Lipase; Complete Time: 16:16 cp 06/05 16:21 Order name: CT Abd/Pelvis - IV Contrast Only; Complete Time: 17:36 cp 06/05 18:03 Order name: SARS RAPID; Complete Time: 19:47 cp 06/05 14:33 Order name: EKG; Complete Time: 14:34 cp 06/05 14:33 Order name: Cardiac monitoring; Complete Time: 15:51 cp 06/05 14:33 Order name: EKG - Nurse/Tech; Complete Time: 15:51 cp 06/05 14:33 Order name: IV Saline Lock; Complete Time: 15:51 cp 06/05 14:33 Order name: Labs collected and sent; Complete Time: 15:51 cp 06/05 14:33 Order name: O2 Per Protocol; Complete Time: 15:51 cp 06/05 14:33 Order name: O2 Sat Monitoring; Complete Time: 15:51 cp EC:05 Rate is 79 beats/min. Rhythm is regular. GA interval is normal. QRS interval is normal. cp QT interval is normal. T waves are Inverted in lead aVR. Interpreted by me. Reviewed by me. Administered Medications: 15:20 Drug: Zofran (Ondansetron) 4 mg Route: IVP; Site: right forearm; bp 17:34 Follow up: Response: No adverse reaction bp 15:20 Drug: Pepcid (famotidine) 20 mg Route: IVP; Site: right forearm; bp 17:34 Follow up: Response: No adverse reaction bp 15:20 Drug: morphine 5 mg Route: IVP; Infused Over: 4 mins; Site: right forearm; bp 17:34 Follow up: Response: Pain is decreased bp 17:33 Drug: morphine 4 mg Route: IVP; Infused Over: 4 mins; Site: right forearm; bp 18:08 Follow up: Response: No adverse reaction bp 17:34 Drug: Zofran (Ondansetron) 4 mg Route: IVP; Site: right forearm; bp 18:09 Follow up: Response: No adverse reaction bp 18:15 Drug: Cipro (ciprofloxacin) 400 mg Volume: 200 ml; Route: IVPB; Infused Over: 60 mins; bp Site: right forearm; 18:15 Drug: metroNIDAZOLE 500 mg Volume: 100 ml; Route: IVPB; Infused Over: 30 mins; Site: bp right forearm; Disposition Summary: 06/05/22 18:33 Hospitalization Ordered Hospitalization Status: Inpatient Admission cp Provider: Narendra Anders cp Location: Telemetry/[facility] (Inpatient) cp Condition: Stable cp Problem: new cp Symptoms: have improved cp Bed/Room Type: Standard cp Room Assignment: 423(06/05/22 19:59) dw Diagnosis - Small Bowel Obstruction cp Forms: - Medication Reconciliation Form cp - SBAR form cp Signatures: Dispatcher [employer] Angeles Muñiz RN RN dw Williams, Irene, RN RN iw Page, Corey, PA PA cp Peltier, Brian, RN RN bp Brown, Sophia, PA PA sb3 Corrections: (The following items were deleted from the chart) 19:59 18:33 cp dw
--- NOTE | 2022-06-05 18:34 | ER ---
Nurse's Notes [facility] Name: Leslie Thacker Age: 57 yrs Sex: Female : 1965 Arrival Date: 06/05/2022 Time: 14:10 Bed 13 Private MD: Diagnosis: Small Bowel Obstruction Presentation: 06/05 14:24 Chief complaint:. iw 14:28 Chief complaint: Patient states: mid upper abd pain and vomiting since yesterday , also iw has constipation and chills , hx of IBS, gastroparesis, cirrhosis. Coronavirus screen: Client presents with at least one sign or symptom that may indicate coronavirus-19. Ebola Screen: Patient negative for fever greater than or equal to 101.5 degrees Fahrenheit, and additional compatible Ebola Virus Disease symptoms Patient denies exposure to infectious person. Patient denies travel to an Ebola-affected area in the 21 days before illness onset. No symptoms or risks identified at this time. Initial Sepsis Screen: Does the patient meet any 2 criteria? No. Patient's initial sepsis screen is negative. Does the patient have a suspected source of infection? No. Patient's initial sepsis screen is negative. Risk Assessment: Do you want to hurt yourself or someone else? Patient reports no desire to harm self or others. Onset of symptoms was June 04, 2022. 14:28 Method Of Arrival: Ambulatory iw 14:28 Acuity: BRADEN 3 iw Triage Assessment: 14:30 General: Appears distressed, uncomfortable, Behavior is cooperative, appropriate for bp age, anxious. Pain: Complains of pain in abdomen. EENT: No deficits noted. Neuro: Level of Consciousness is awake, alert, obeys commands, Oriented to Appropriate for age. Cardiovascular: Rhythm is sinus rhythm. Respiratory: No deficits noted. GI: Abdomen is obese, Reports upper abdominal pain, nausea, vomiting. : No signs and/or symptoms were reported regarding the genitourinary system. Derm: No deficits noted. Musculoskeletal: No deficits noted. Historical: - Allergies: 14:30 Dilaudid; iw 14:30 Doxycycline; iw 14:30 hydromorphone; iw 14:30 Keflex; iw - Home Meds: 14:30 atorvastatin 40 mg Oral tab 1 tab once daily [Active]; spironolactone 50 mg Oral tab 1 iw tab 2 times per day [Active]; levothyroxine 125 mcg tab 1 tab once daily [Active]; furosemide 20 mg Oral tab 1 tab 2 times per day [Active]; Eliquis 2.5 mg Oral tab 1 tab 2 times per day [Active]; omeprazole 40 mg Oral cpDR 1 cap once daily [Active]; ondansetron HCl 4 mg Oral tab 1 tab 2 times per day [Active]; promethazine 12.5 mg Oral tab 1 tab every 6 hours [Active]; tramadol 50 mg Oral TbDi 50 mg as needed for Pain [Active]; trazodone 100 mg Oral tab 1 tab 3 times per day [Active]; ursodiol 500 mg Oral tab 2.67 mg/kg 2 times per day [Active]; Xifaxan 550 mg Oral tab 1 tab 2 times per day [Active]; Oxycodone-Acetaminophen Oral [Active]; Levemir U-100 Insulin 100 unit/mL subcutaneous soln [Active]; Humalog U-100 Insulin 100 unit/mL Sub-Q crtg [Active]; - PMHx: 14:30 autoimmune hepatitis; Colitis; DVT; stage 4 cirrhosis; Pulmonary Embolism; IBSD; DM; iw Screenin:30 Abuse screen: Denies threats or abuse. Denies injuries from another. Nutritional bp screening: No deficits noted. Tuberculosis screening: No symptoms or risk factors identified. Fall Risk None identified. Assessment: 14:30 General: SEE TRIAGE NOTE. bp 16:00 Reassessment: Patient and/or family updated on plan of care and expected duration. Pain bp level reassessed. Patient states symptoms have improved. 17:35 Reassessment: ALL CURRENT ORDERS COMPLETED. bp 20:13 Reassessment: [facility] REPORT. ja4 Vital Signs: 14:30 BP 128 / 65; Pulse 86; Resp 16; Temp 97.5; Pulse Ox 98% ; bp 15:00 BP 127 / 68; Pulse 81; Resp 17; Pulse Ox 93% ; bp 16:00 BP 121 / 66; Pulse 81; Resp 15; Pulse Ox 98% ; bp 17:35 BP 126 / 70; Pulse 76; Resp 16; Pulse Ox 95% ; bp ED Course: 14:10 Patient arrived in ED. as 14:15 Kevin Quinn PA is PHCP. cp 14:15 Ariel Wynne MD is Attending Physician. cp 14:26 Shade Cunha, RN is Primary Nurse. bp 14:30 Triage completed. iw 14:30 Patient has correct armband on for positive identification. Bed in low position. Call bp light in reach. Side rails up X2. Adult w/ patient. 14:32 Arm band placed on. iw 15:05 XRAY Chest (1 view) In Process Unspecified. EDMS 15:20 Inserted saline lock: 20 gauge in right forearm, using aseptic technique. Blood bp collected. 17:12 CT Abd/Pelvis - IV Contrast Only In Process Unspecified. EDMS 18:33 Narendra Anders is Hospitalizing Provider. cp Administered Medications: 15:20 Drug: Zofran (Ondansetron) 4 mg Route: IVP; Site: right forearm; bp 17:34 Follow up: Response: No adverse reaction bp 15:20 Drug: Pepcid (famotidine) 20 mg Route: IVP; Site: right forearm; bp 17:34 Follow up: Response: No adverse reaction bp 15:20 Drug: morphine 5 mg Route: IVP; Infused Over: 4 mins; Site: right forearm; bp 17:34 Follow up: Response: Pain is decreased bp 17:33 Drug: morphine 4 mg Route: IVP; Infused Over: 4 mins; Site: right forearm; bp 18:08 Follow up: Response: No adverse reaction bp 17:34 Drug: Zofran (Ondansetron) 4 mg Route: IVP; Site: right forearm; bp 18:09 Follow up: Response: No adverse reaction bp 18:15 Drug: Cipro (ciprofloxacin) 400 mg Volume: 200 ml; Route: IVPB; Infused Over: 60 mins; bp Site: right forearm; 18:15 Drug: metroNIDAZOLE 500 mg Volume: 100 ml; Route: IVPB; Infused Over: 30 mins; Site: bp right forearm; Outcome: 18:33 Decision to Hospitalize by Provider. cp 20:42 Patient left the ED. bb Signatures: Dispatcher [employer] EDMS Kamille Olsen Brenda RN RN bb Kathrin Jane RN RN iw Kevin Quinn PA PA cp Shade Cunha, RN RN bp Ming Yun RN RN ja4
[2022-06-05] MEDS ORDERED: METRONIDAZOLE 500mg IVPB 500 MG/100 ML BAG IV ONE (18:55)
[2022-06-05] MEDS ORDERED: CIPROFLOXACIN 400mg IV 400 MG/200 ML BAG IV ONE (18:55)
--- NOTE | 2022-06-05 19:43 | P.HP ---
Certification for Inpatient Patient admitted to: Inpatient With expected LOS: >2 Midnights Patient will require the following post-hospital care: None Practitioner: I am a practitioner with admitting privileges, knowledge of patient current condition, hospital course, and medical plan of care. Services: Services provided to patient in accordance with Admission requirements found in Title 42 Section 412.3 of the Code of Federal Regulations Patient History Date of Service: 06/05/22 Reason for admission: SBO History of Present Illness: Patient is a 57-year-old female with history of multiple abdominal surgeries, insulin-dependent type 2 diabetes, gastroparesis, autoimmune hepatitis, and cirrhosis who presented to the ED with complaints of abdominal pain, nausea, vomiting, constipation for 2 days. Patient states that she has not had a bowel movement or passed any gas in 2 days. Vital signs stable upon arrival to the ER. She had several episodes of vomiting initially but have now resolved. WBC 11.3. CT showed small bowel obstruction to the level of the terminal ileum were there is evidence for stricture or scarring. No free air, extravasation of bowel content or other surgically emergent finding. General surgery evaluated her and wishes for her to be admitted and treated with medical management. Abdomen is firm and moderately distended with faint bowel sounds. She was started on IV antibiotics and is admitted for further management. Allergies hydromorphone [From Dilaudid] Allergy (Intermediate, Verified 01/08/21 01:36) Itching adhesive Allergy (Verified 01/08/21 01:36) Itching/Hives/Rash cephalexin [From Keflex] Allergy (Verified 01/08/21 01:36) Nausea/Vomiting doxylamine Allergy (Verified 01/08/21 01:36) Nausea/Vomiting Home medications list reviewed: Yes Home Medications: Apixaban [Eliquis *] 2.5 mg PO BID 01/08/21 Ascorbic Acid [Vitamin C*] 500 mg PO QID 30 Days #120 tablet 01/08/21 Aspirin [Aspirin EC 81 MG] 81 mg PO DAILY 30 Days #30 tablet. 01/08/21 Atorvastatin Calcium [Lipitor*] 40 mg PO DAILY 01/08/21 Cholecalciferol (Vitamin D3) [Vitamin D 1000 Iu Tab*] 4,000 unit PO DAILY 30 Days #120 tab 01/08/21 Dicyclomine [Bentyl*] 10 mg PO BID PRN 01/08/21 Escitalopram [Lexapro*] 20 mg PO BEDTIME 01/08/21 Ferrous Sulfate [Ferrous Sulfate*] 325 mg PO DAILY 01/08/21 Furosemide [Lasix*] 20 mg PO DAILY 01/08/21 Insulin Aspart [Novolog Penfill] 0 units SQ UD 01/08/21 Insulin Detemir [Levemir] 70 units SQ DAILY 01/08/21 Levothyroxine [Synthroid*] 0.125 mg PO DAILY 01/08/21 Omeprazole [Prilosec] 40 mg PO DAILY 01/08/21 Rifaximin [Xifaxan] 550 mg PO BID 01/08/21 Spironolactone [Aldactone*] 50 mg PO DAILY 01/08/21 Tramadol HCl [Ultram] 50 mg PO Q6H PRN 01/08/21 Zinc Sulfate [Zinc Sulfate*] 220 mg PO DAILY 30 Days #30 cap 01/08/21 carvediloL [Carvedilol] 6.25 mg PO BID 01/08/21 predniSONE [Prednisone] 20 mg PO SEECOM 14 Days #21 tablet 01/08/21 ursodioL [Cinda Forte] 500 mg PO BID 01/08/21 - Past Medical/Surgical History Diabetic: Yes -: IDDM -: IBS -: autoimmune Hep C -: Stage IV cirrhosis -: colitis -: diverticulitis -: gastroparesis -: sleep apnea -: Vit D&C defiency -: Anemia -: HTN -: previous DVT/PE -: Appendectomy -: multiple Hernia repairs -: Cholecystectomy -: half bladder removed -: benign tumors removed from binta breasts -: rt hand surgery -: c-sect Psychosocial/ Personal History: Patient lives at home with her sister. - Family History Family History: Reviewed- Non-Contributory - Social History Smoking Status: Former smoker Alcohol use: No CD- Drugs: No Caffeine use: Yes Place of Residence: Home Review of Systems Gastrointestinal: Nausea, Vomiting, Abdominal Pain, Distention, Constipation Physical Examination - Physical Exam General: Alert, In no apparent distress, Obese HEENT: Atraumatic, PERRLA, EOMI, Sclerae nonicteric Neck: Supple, 2+ carotid pulse no bruit, No LAD, Without JVD or thyroid abnormality Respiratory: Clear to auscultation bilaterally, Normal air movement Cardiovascular: Regular rate/rhythm, Normal S1 S2 Gastrointestinal: Absent bowel sounds, Distended, Tenderness Musculoskeletal: No tenderness Integumentary: No rashes Neurological: Normal speech, Normal strength at 5/5 x4 extr, Normal tone, Normal affect - Studies Laboratory Data (last 24 hrs) 06/05/22 15:15: PT 13.9 H, INR 1.26, APTT 33.8 06/05/22 15:15: WBC 11.30 H, Hgb 14.9, Hct 44.0, Plt Count 144 L 06/05/22 15:15: Sodium 136, Potassium 4.1, BUN 18, Creatinine 0.95, Glucose 203 H, Magnesium 2.1 D, Total Bilirubin 2.0 H, AST 29, ALT 32, Alkaline Phosphatase 108, Lipase 125 Assessment and Plan - Problems (Diagnosis) (1) Small bowel obstruction Current Visit: Yes Status: Acute (2) Type 2 diabetes mellitus Current Visit: Yes Status: Chronic Qualifiers: Diabetes mellitus lobsterman insulin use: with lobsterman use Diabetes mellitus complication status: with hyperglycemia Qualified Code(s): E11.65 - Type 2 diabetes mellitus with hyperglycemia; Z79.4 - USP (current) use of insulin (3) Gastroparesis Current Visit: Yes Status: Chronic (4) Autoimmune hepatitis Current Visit: Yes Status: Chronic (5) Cirrhosis Current Visit: Yes Status: Chronic Qualifiers: Hepatic cirrhosis type: unspecified hepatic cirrhosis Ascites presence: without ascites Qualified Code(s): K74.60 - Unspecified cirrhosis of liver - Plan -NPO. IV hydration. -Continue IV cipro and flagyl. -General surgery consulted. -Morphine and phenegran as needed. -Vomiting has resolved. Will hold off on NG tube at this time. -Glucose monitor with mild sliding scale. A1C in morning. -Monitor and replete electrolytes per protocol -Reconcile and continue home medications -Lovenox for VTE ppx -Full code Discharge Plan: Home Plan to discharge in: Greater than 2 days - Advance Directives Does patient have a Living Will: No Does patient have a Durable POA for Healthcare: No - Code Status/Comfort Care Code Status Assessed: Yes (Full) Critical Care: No Time Spent Managing Pts Care (In Minutes): 50
[2022-06-05 19:45] LABS: SARS-CoV-2 Antigen Rapid Res Negative (Negative)
[2022-06-05] MEDS: NA CHLORIDE 0.9% 1,000 ML IV SCH (20:39)
[2022-06-05] MEDS ORDERED: NA CHLORIDE 0.9% 1,000 ML ONE (20:58)
[2022-06-05] MEDS ORDERED: CIPROFLOXACIN 400mg IV 400 MG/200 ML BAG IV SCH ×2 (21:00)
[2022-06-05] MEDS: PROMETHAZINE INJ 25 MG/ML AMP IV PRN (21:10)
[2022-06-05] MEDS: MORPHINE 4 MG/ML SYR IV PRN (21:13)
[2022-06-05 21:46] VITALS: BMI 40.7
[2022-06-06] MEDS: METRONIDAZOLE 500mg IVPB 500 MG/100 ML BAG IV SCH ×3 (01:20→16:14)
[2022-06-06] MEDS: PROMETHAZINE INJ 25 MG/ML AMP IV PRN ×4 (02:17→22:03)
[2022-06-06] MEDS: MORPHINE 4 MG/ML SYR IV PRN ×3 (02:17→22:02)
[2022-06-06 05:40] LABS: Absolute Lymphocytes (CBC) 1.4 K/uL (0.7-4.9); Hematocrit 39.8 % (36.0-45.0); Lymphocytes % 12.2 % (15.3-44.8); MCV 81.3 fL (80-100); MPV 9.6 fL (7.6-11.3)
[2022-06-06 05:49] LABS: Phosphorus 3.1 mg/dL (2.5-4.9); Potassium 3.9 mmol/L (3.5-5.1)
[2022-06-06] MEDS: INSULIN -REGULAR HUMAN 50 UNIT/0.5 ML ML SQ SCH ×4 (06:00→18:00)
[2022-06-06] MEDS ORDERED: POTASSIUM CL SA 10 MEQ TAB PO ONE (09:00)
[2022-06-06] MEDS ORDERED: KCL 20 MEQ/100 mL IVPB 20 MEQ/100 ML BAG IV ONE (09:00)
[2022-06-06] MEDS: NA CHLORIDE 0.9% 1,000 ML IV SCH ×2 (10:36→23:19)
[2022-06-06] MEDS: CIPROFLOXACIN 400mg IV 400 MG/200 ML BAG IV SCH ×2 (10:37→22:02)
[2022-06-06] MEDS: ENOXAPARIN 40 MG/0.4 ML SQ SCH (10:37)
--- NOTE | 2022-06-06 12:59 | P.PN ---
Subjective Date of Service: 06/06/22 Chief Complaint: SBO Patient denies abdominal pain at the moment. No BM or flatus yet. No vomiting since admission. Physical Examination - Vital Signs Temperature: 98 F Blood Pressure: 95/50 Pulse: 74 Respirations: 16 Pulse Ox (%): 94 - Studies Laboratory Data (last 24 hrs) 06/05/22 15:15: PT 13.9 H, INR 1.26, APTT 33.8 06/05/22 15:15: WBC 11.30 H, Hgb 14.9, Hct 44.0, Plt Count 144 L 06/05/22 15:15: Sodium 136, Potassium 4.1, BUN 18, Creatinine 0.95, Glucose 203 H, Magnesium 2.1 D, Total Bilirubin 2.0 H, AST 29, ALT 32, Alkaline Phosphatase 108, Lipase 125 Assessment And Plan - Current Problems (Diagnosis) (1) Small bowel obstruction Current Visit: Yes Status: Acute (2) Autoimmune hepatitis Current Visit: Yes Status: Chronic (3) Cirrhosis Current Visit: Yes Status: Chronic Qualifiers: Hepatic cirrhosis type: unspecified hepatic cirrhosis Ascites presence: without ascites Qualified Code(s): K74.60 - Unspecified cirrhosis of liver (4) Gastroparesis Current Visit: Yes Status: Chronic (5) Type 2 diabetes mellitus Current Visit: Yes Status: Chronic Qualifiers: Diabetes mellitus extermination supervisor insulin use: with half-way use Diabetes mellitus complication status: with hyperglycemia Qualified Code(s): E11.65 - Type 2 diabetes mellitus with hyperglycemia; Z79.4 - ad terminal makeup operator (current) use of insulin (6) Hypothyroidism Current Visit: Yes Status: Acute (7) History of DVT (deep vein thrombosis) Current Visit: Yes Status: Acute - Plan Physical Exam General: Alert, In no apparent distress, Obese HEENT: Sclerae nonicteric Respiratory: Clear to auscultation bilaterally, Normal air movement Cardiovascular: Regular rate/rhythm, Normal S1 S2 Gastrointestinal: Hypoactive bowel sounds, obese abdomen, no tenderness Musculoskeletal: No tenderness Integumentary: No rashes Neurological: Normal speech, Normal strength at 5/5 x4 extr, Normal tone, Normal affect Plan: Continue supportive measures. Cautious IV fluid Keep n.p.o. Antibiotics General surgery to follow. Home medications for liver cirrhosis and autoimmune hepatitis on hold for now. Eliquis is on hold for now. Lovenox for DVT prophylaxis
--- NOTE | 2022-06-06 15:20 | EKG ---
Test Date: 2022-06-05 Test Time: 14:59:18 Missile Inspector Preflight: BP MEASUREMENT RESULTS: Intervals: Rate: 79 TX: 150 QRSD: 74 QT: 406 QTc: 465 Eckerman: P: 9 TX: 150 QRS: 89 T: 69 INTERPRETIVE STATEMENTS: Normal sinus rhythm Normal ECG No previous ECG available for comparison Electronically Signed On 06-06-22 15:18:46 CDT by Chencho Sanchez
[2022-06-06 17:25] LABS: Specific Gravity >= 1.030 (1.005-1.030); Urine Blood Negative (Negative); Urine Clarity Clear (Clear); Urine Glucose Negative (Negative); Urine Protein Trace (Negative); Urine Urobilinogen 0.2 mg/dL (0.2-1.0)
[2022-06-06 17:38] LABS: Urine Bilirubin Negative (Negative); Urine Color Dark Yellow (Yellow)
[2022-06-06 17:39] LABS: Urine Bacteria 20-50 /HPF (<20); Urine Mucus 1+ /HPF (None Seen); Urine RBC <5 /HPF (None Seen)
--- NOTE | 2022-06-06 19:12 | CON ---
Date of Consultation: 06/05/2022 Brief History Of Present Illness: The patient is a 57-year-old female with a history of mu ltiple abdominal surgeries, diabetes type 2, gastroparesis, autoimmune hepatitis with cirrhosis, who presented to the ER with complaints of abdominal pain, nausea, vomiting, and constipation for approxi mately 2 days. She states she has not had a bowel movement approximately 2 days prior to her arrival . Had some significant nausea, vomiting, and worsening abdominal pain predominantly in the upper mid line abdominal area. She has had multiple episodes before in the past. She has had bowel obstructio ns many times before in the past, she states between 3 and 4, which required surgical intervention wi small bowel resection. She states that since being brought to the hospital and being given some m edication, her symptoms have significantly improved and she is ambulatory in the room during . She currently has no nausea anymore and only has mild abdominal pain, but continues to have tenderness, she states throughout her entire abdomen, and has not had a bowel function since being in the ER as well. Past Medical History: Significant for diabetes, IBS, autoimmune hepatitis C, cirrhosis, colitis, div erticulitis, gastroparesis, sleep apnea, vitamin D deficiency, vitamin C deficiency, anemia, hyperten annemarie, history of DVT, history of pulmonary emboli. Past Surgical History: Includes appendectomy, cholecystectomy, bladder partial resection, multiple a bdominal hernia repairs, multiple surgeries for multiple small bowel obstructions, hand surgery on th e right, bilateral breast benign masses removed, , removal of abdominal mesh, replacement of abdominal mesh. Allergies: INCLUDE DILAUDID, ADHESIVES, KEFLEX, DOXYLAMINE. Home Medications: Include Eliquis, vitamin C, aspirin, Lipitor, vitamin D, Bentyl, Lexapro, ferrous sulfate, Lasix, NovoLog, Levemir, Synthroid, Prilosec, Zanaflex, Aldactone, Ultram, zinc, carvedilol, prednisone, Cinda Forte. Social History: She is a former smoker. Denies current alcohol or recreational drug use. She lives at home with her sister. Review of Systems: Ten-point review of systems other than HPI, she currently denies. Physical Examination: General: She is awake, alert, and oriented. Vital Signs: Blood pressure of 126/70, pulse 76, respiratory rate is 16, temperature 97.5. Psychiatric: She is appropriate. Conversive. She has good insight into her medical history for the most part, but cannot recall specific details of her multiple abdominal surgeries other than those t he given above. She states she has had prolonged hospitalizations for her surgeries; however, and webb d multiple intraabdominal infections related to some of her previous surgeries. Neck: Supple without JVD. Chest: Normal expansion and excursion. Cardiovascular: Regular rate and rhythm. Pulmonary: Clear to auscultation bilaterally. Abdomen: Obese, soft with global tenderness to palpation. No focal peritonitis. Multiple healed siegel rgical scars are evident. She has a palpable ventral abdominal hernia, which feels reducible. Extremities: No clubbing, cyanosis, edema. Skin: Warm and dry. Laboratory Data: Revealed a white blood cell count of 11.3, hemoglobin 14.9, hematocrit 44.0, platel et count was 144, neutrophils 86%. Her PT was 13.9, INR 1.26, PTT 33.8, sodium 136, potassium 4.1, c hloride 101, carbon dioxide is 25, BUN is 18, creatinine 0.95, glucose is 203. Hemoglobin A1c is 7.2 , calcium 9.7, total bilirubin 2.0. Her alkaline phosphatase 108, lipase is 125. She had imaging pe rformed, which included a CT of the abdomen and pelvis, which was officially read as small bowel obst ruction to the level of the terminal ileum, where there is evidence for stricture or scarring. No fr ee air extravasation of bowel contents or other surgically emergent findings. Specifically, postsurg ical changes are seen in the anterior abdominal wall. There is an abdominal wall laxity and a small hernia defect to the right of the umbilicus. Small bowel loops partially extend to the hernia defect . Acute findings are emergent findings and the hernia defect is not suspected. Fluid is present yuli ling, but not distended stomach. The proximal jejunum is normal. There is progressive dilation of t he small bowel from mid jejunum to terminal ileum. Fecalization of small bowel contents seen in the distal most ileum. There appears to be stricture or narrowed terminal ileum, probably etiology of sm all bowel obstruction pattern, the 2 anastomotic sites in the distal small bowel that have no acute c omponent. Colon is decompressed. Assessment And Plan: This is a 57-year-old woman who has a history of multiple abdominal surgeries a nd multiple small bowel obstructions before in the past, treated both with combination operatively an d nonoperatively. 1.IV fluid hydration. 2.N.p.o. 3.Serial abdominal exams. 4.I have explained medical management/nonoperative management, which we should attempt first as the patient has no acute abdominal findings at this time. Therefore, we will proceed with nonoperative m anagement to see if the patient's bowel rest will help resolve the small-bowel obstruction. However, should she not progress, we will consider reimaging with p.o. contrast to see if there is any progre ssion. If the patient has other non progression or worsening of her symptoms, I have discussed the s urgical options for the patient which would include exploratory laparotomy, possible bowel resection and indicated procedures. The risks also include bleeding, infection, damage to surrounding tissues, need for further operation and procedures, injury to intestines or any internal organs, injury to ur eters and other organs was specifically delineated. There is also a possibility that the patient cou ld have a frozen abdomen, be a nonoperative candidate, noted only at the time of surgery due to her s tated history of abdominal surgeries. The patient understands the above stated plan and agrees to pr oceed with nonoperative management at this point. We will revisit the consideration of surgical inte rvention should it be required in the future. RAJEEV/FERCHO Voice ID: [id number] Report ID: [id number]
[2022-06-07] MEDS: METRONIDAZOLE 500mg IVPB 500 MG/100 ML BAG IV SCH ×3 (00:18→15:49)
[2022-06-07] MEDS: NA CHLORIDE 0.9% 1,000 ML IV SCH ×2 (05:12→12:39)
[2022-06-07] MEDS: MORPHINE 4 MG/ML SYR IV PRN ×5 (05:20→22:02)
[2022-06-07] MEDS: PROMETHAZINE INJ 25 MG/ML AMP IV PRN ×5 (05:20→22:03)
[2022-06-07] MEDS: INSULIN -REGULAR HUMAN 50 UNIT/0.5 ML ML SQ SCH ×4 (06:00→18:00)
[2022-06-07 06:22] LABS: Absolute Lymphocytes (CBC) 1.4 K/uL (0.7-4.9); Hematocrit 34.6 % (36.0-45.0); Lymphocytes % 21.2 % (15.3-44.8); MCV 81.4 fL (80-100); MPV 9.4 fL (7.6-11.3); RBC Red Blood Cell Count 4.25 M/uL (3.86-4.86)
[2022-06-07] MEDS ORDERED: D50W 25 GM/50 ML SYRINGE IV PRN (06:29)
[2022-06-07 06:31] LABS: Magnesium 1.9 mg/dL (1.8-2.4)
[2022-06-07] MEDS ORDERED: D10W 125 ML IV PRN (06:34)
[2022-06-07] MEDS ORDERED: DEXTROSE 10%-WATER 500 ML IV ONE ×2 (06:47→09:35)
[2022-06-07] MEDS: CIPROFLOXACIN 400mg IV 400 MG/200 ML BAG IV SCH ×2 (07:59→21:02)
[2022-06-07] MEDS: ENOXAPARIN 40 MG/0.4 ML SQ SCH (08:00)
[2022-06-07 08:27] LABS: Blood Morphology Comment NOT SEEN (NOT SEEN); Platelet Estimate ADEQ; Platelets, Giant 1+; White Blood Cell Scan OK (OK)
--- NOTE | 2022-06-07 12:31 | RAD REPORT ---
EXAM DESCRIPTION: CTAbdomen Pelvis Wo Contrast - 06/07/2022 12:18 pm CLINICAL HISTORY: SBO COMPARISON: 06/05/2022 TECHNIQUE: CT of the abdomen and pelvis was performed. All CT scans are performed using dose optimization technique as appropriate and may include automated exposure control or mA/KV adjustment according to patient size. FINDINGS: Lower chest: Multi-vessel coronary artery disease. Mild circumferential thickened distal e sophagus. Liver: Cirrhotic liver morphology. Biliary: Cholecystectomy. Stomach: No significant focal abnormality. Duodenum: No significant focal abnormality. Pancreas: No significant abnormality. Spleen: Splenomegaly. Adrenal: No suspicious lesions. Kidney/ureter: No hydronephrosis. 3 mm stone in the left kidney. Retroperitoneum: No retroperitoneal adenopathy. Vascular: No aneurysm. IVC filter. Bowel: Moderate colonic stool. Enteric contrast has traversed the suspected site of obstruction. This excludes the presence of a high-grade small bowel obstruction.. Peritoneum: No ascites or free air. Bladder: Grossly unremarkable. Reproductive: No adnexal masses. Hysterectomy Bones: No acute fracture. Other: n/a IMPRESSION: Enteric contrast reaches the proximal colon, excluding the presence of a high-grade smal l bowel obstruction. The degree of dilatation has modestly improved since 06/05/2022 likely reflectin g a resolving small bowel obstruction.
--- NOTE | 2022-06-07 15:00 | P.PN ---
Subjective Date of Service: 06/07/22 Chief Complaint: SBO Patient seen by general surgery Dr. Wynne who started him on a clear liquid diet. Patient reports some abdominal pain with the clear liquid diet. No vomiting No BM yet. Patient also had a hypoglycemia episode this morning. n. Physical Examination - Vital Signs Temperature: 96.2 F Blood Pressure: 102/50 Pulse: 68 Respirations: 18 Pulse Ox (%): 97 Assessment And Plan - Current Problems (Diagnosis) (1) Small bowel obstruction Current Visit: Yes Status: Acute (2) Autoimmune hepatitis Current Visit: Yes Status: Chronic (3) Cirrhosis Current Visit: Yes Status: Chronic Qualifiers: Hepatic cirrhosis type: unspecified hepatic cirrhosis Ascites presence: without ascites Qualified Code(s): K74.60 - Unspecified cirrhosis of liver (4) Gastroparesis Current Visit: Yes Status: Chronic (5) Type 2 diabetes mellitus Current Visit: Yes Status: Chronic Qualifiers: Diabetes mellitus intermediate insulin use: with superintendent terminal use Diabetes mellitus complication status: with hyperglycemia Qualified Code(s): E11.65 - Type 2 diabetes mellitus with hyperglycemia; Z79.4 - superintendent terminal (current) use of insulin (6) Hypothyroidism Current Visit: Yes Status: Acute (7) History of DVT (deep vein thrombosis) Current Visit: Yes Status: Acute - Plan Physical Exam General: Alert, In no apparent distress, Obese HEENT: Sclerae nonicteric Respiratory: Clear to auscultation bilaterally, Normal air movement Cardiovascular: Regular rate/rhythm, Normal S1 S2 Gastrointestinal: Noraml bowel sounds, obese abdomen, no tenderness Musculoskeletal: No tenderness Integumentary: No rashes Neurological: Normal speech, Normal strength at 5/5 x4 extr, Normal tone, Normal affect Plan: Repeat CT abdomen and pelvis with contrast demonstrates contrast in the proximal colon excluding high-grade small bowel obstruction. Keep n.p.o. today due to abdominal pain with clear liquid diet. Treat constipation with suppository. Enema as needed. Continue supportive measures. IV fluid Antibiotics General surgery to follow. Continue home medications for liver cirrhosis and autoimmune hepatitis. Resume Eliquis. Hypoglycemia protocol.
[2022-06-07] MEDS ORDERED: BISACODYL 10 MG RECTAL SUPP PR ONE (15:30)
[2022-06-07] MEDS: D5 0.9 NS 1,000 ML IV SCH (15:47)
[2022-06-08] MEDS: METRONIDAZOLE 500mg IVPB 500 MG/100 ML BAG IV SCH ×3 (00:41→17:20)
[2022-06-08] MEDS: MORPHINE 4 MG/ML SYR IV PRN ×3 (03:42→21:38)
[2022-06-08] MEDS: PROMETHAZINE INJ 25 MG/ML AMP IV PRN ×3 (03:42→21:43)
[2022-06-08 03:45] LABS: Absolute Lymphocytes (CBC) 1.1 K/uL (0.7-4.9); Hematocrit 35.8 % (36.0-45.0); Lymphocytes % 17.3 % (15.3-44.8); MCV 83.4 fL (80-100); MPV 9.2 fL (7.6-11.3)
[2022-06-08 04:02] LABS: Magnesium 1.9 mg/dL (1.8-2.4); Potassium 3.9 mmol/L (3.5-5.1)
[2022-06-08] MEDS: D5 0.9 NS 1,000 ML IV SCH ×2 (05:20→09:54)
[2022-06-08] MEDS: INSULIN -REGULAR HUMAN 50 UNIT/0.5 ML ML SQ SCH ×4 (06:00→21:00)
[2022-06-08] MEDS ORDERED: KCL 20 MEQ/100 mL IVPB 20 MEQ/100 ML BAG IV SCH (07:30)
[2022-06-08] MEDS: CIPROFLOXACIN 400mg IV 400 MG/200 ML BAG IV SCH ×2 (08:01→21:37)
[2022-06-08] MEDS: ENOXAPARIN 40 MG/0.4 ML SQ SCH (08:02)
[2022-06-08] MEDS ORDERED: FLEET ENEMA ADULT PR ONE (08:31)
--- NOTE | 2022-06-08 17:04 | P.PN ---
Subjective Date of Service: 06/08/22 Chief Complaint: SBO Patient had multiple bowel movement yesterday but small quantities per patient No abdominal pain or vomiting today. No hypoglycemia today. Physical Examination - Vital Signs Temperature: 97.1 F Blood Pressure: 103/51 Pulse: 72 Respirations: 14 Pulse Ox (%): 95 Assessment And Plan - Current Problems (Diagnosis) (1) Small bowel obstruction Current Visit: Yes Status: Acute (2) Autoimmune hepatitis Current Visit: Yes Status: Chronic (3) Cirrhosis Current Visit: Yes Status: Chronic Qualifiers: Hepatic cirrhosis type: unspecified hepatic cirrhosis Ascites presence: without ascites Qualified Code(s): K74.60 - Unspecified cirrhosis of liver (4) Gastroparesis Current Visit: Yes Status: Chronic (5) Type 2 diabetes mellitus Current Visit: Yes Status: Chronic Qualifiers: Diabetes mellitus probation counselor insulin use: with intermediate use Diabetes mellitus complication status: with hyperglycemia Qualified Code(s): E11.65 - Type 2 diabetes mellitus with hyperglycemia; Z79.4 - gaming cage cashier (current) use of insulin (6) Hypothyroidism Current Visit: Yes Status: Acute (7) History of DVT (deep vein thrombosis) Current Visit: Yes Status: Acute - Plan Physical Exam General: Alert, In no apparent distress, Obese HEENT: Sclerae nonicteric Respiratory: Clear to auscultation bilaterally, Normal air movement Cardiovascular: Regular rate/rhythm, Normal S1 S2 Gastrointestinal: Noraml bowel sounds, obese abdomen, no tenderness Musculoskeletal: No tenderness Integumentary: No rashes Neurological: Normal speech, Normal strength at 5/5 x4 extr. Plan: Repeat CT abdomen and pelvis with contrast demonstrates contrast in the proximal colon excluding high-grade small bowel obstruction. Patient given suppository and enema and had multiple bowel movements Continue supportive measures. IV fluid Antibiotics. Trial of clear liquid diet. Serial abdominal examination General surgery to follow. Continue home medications for liver cirrhosis and autoimmune hepatitis. Continue Eliquis. Hypoglycemia protocol. Constipation prophylaxis.
--- NOTE | 2022-06-08 18:06 | P.PN ---
Subjective Date of Service: 06/08/22 Chief Complaint: SBO Subjective: Improving (Patient had a CT yesterday and had a bowel movement after, feels better but continues to have mild intermittent pain.) Physical Examination - Vital Signs Temperature: 97.1 F Blood Pressure: 103/51 Pulse: 72 Respirations: 14 Pulse Ox (%): 95 - Physical Exam General: Alert, In no apparent distress, Cooperative HEENT: Mucous membr. moist/pink Gastrointestinal: Other (soft, mild improved global TTP, ND, no rebound, no guarding) Assessment And Plan - Current Problems (Diagnosis) (1) Small bowel obstruction Current Visit: Yes Status: Acute Plan: - CT yesterday shows some improvement - ok to have ice chips today - enemas - patient has stool burden in colon - ambulate with assist - continue medical management - no surgical intervention @ this time,.
[2022-06-08] MEDS: POLYETHYL GLY 3350 17 GM/DOSE PO SCH (21:00)
[2022-06-08] MEDS: SENOSIDES 8.6 MG TAB PO SCH (21:38)
[2022-06-09] MEDS: METRONIDAZOLE 500mg IVPB 500 MG/100 ML BAG IV SCH ×3 (00:47→16:15)
[2022-06-09 04:00] LABS: Potassium 3.9 mmol/L (3.5-5.1)
[2022-06-09] MEDS: MORPHINE 4 MG/ML SYR IV PRN ×2 (04:46→22:04)
[2022-06-09] MEDS ORDERED: POTASSIUM CL SA 10 MEQ TAB PO ONE (05:10)
[2022-06-09] MEDS: D5 0.9 NS 1,000 ML IV SCH ×2 (05:58→17:19)
--- NOTE | 2022-06-09 06:52 | P.PN ---
Date of Service: 06/09/22 Subjective: improving, had multiple BMs overnight no nausea/vomiting pain improving ROS: 10 point ROS as noted above, otherwise negative Physical exam GEN: Alert, oriented, NAD HEENT: Normal conjunctiva, sclera anicteric CV: Regular rate and rhythm, no edema Pulm: Nonlabored respirations on room air ABD: Soft, mild diffuse tenderness, non distended Neuro: Normal speech, normal affect Problem List Small bowel obstruction Autoimmune hepatitis Cirrhosis Gastroparesis Insulin-dependent diabetes mellitus type 2 Hypothyroidism History of DVT improving, multiple BMs yesterday/overnight advanced to clears this morning if tolerates, advance to full liquid, discussed with general surgery significant abdominal surgeries in past, placing patient at high risk for adhesions / SBO decrease IVF if tolerating PO continue empiric antibiotics general surgery following VTE: lovenox Code: full Dispo; home, possibly tomorrow Time Spent Managing Pts Care (In Minutes): 35
[2022-06-09] MEDS: INSULIN -REGULAR HUMAN 50 UNIT/0.5 ML ML SQ SCH ×4 (07:30→21:00)
[2022-06-09] MEDS: SENOSIDES 8.6 MG TAB PO SCH ×2 (09:01→21:15)
[2022-06-09] MEDS: ENOXAPARIN 40 MG/0.4 ML SQ SCH (09:02)
[2022-06-09] MEDS: POLYETHYL GLY 3350 17 GM/DOSE PO SCH ×2 (09:02→21:00)
[2022-06-09] MEDS: CIPROFLOXACIN 400mg IV 400 MG/200 ML BAG IV SCH ×2 (09:02→21:14)
[2022-06-09] MEDS: PROMETHAZINE INJ 25 MG/ML AMP IV PRN (22:04)
[2022-06-10] MEDS: METRONIDAZOLE 500mg IVPB 500 MG/100 ML BAG IV SCH ×2 (00:13→07:57)
[2022-06-10 03:21] VITALS: O2SAT 97
[2022-06-10 04:01] LABS: Hematocrit 36.3 % (36.0-45.0); MCV 82.1 fL (80-100); MPV 9.8 fL (7.6-11.3); RBC Red Blood Cell Count 4.43 M/uL (3.86-4.86)
[2022-06-10] MEDS: D5 0.9 NS 1,000 ML IV SCH (05:36)
[2022-06-10] MEDS: INSULIN -REGULAR HUMAN 50 UNIT/0.5 ML ML SQ SCH (07:30)
[2022-06-10] MEDS: CIPROFLOXACIN 400mg IV 400 MG/200 ML BAG IV SCH (07:57)
[2022-06-10] MEDS: POLYETHYL GLY 3350 17 GM/DOSE PO SCH (07:58)
[2022-06-10] MEDS: SENOSIDES 8.6 MG TAB PO SCH (07:58)
[2022-06-10] MEDS: ENOXAPARIN 40 MG/0.4 ML SQ SCH (07:58)
[2022-06-10 09:09] VITALS: BP 113/56; TEMP 97.2
--- NOTE | 2022-06-10 20:34 | P.DS ---
Admission Date: 06/05/22 Discharge Date: 06/10/22 Disposition: ROUTINE DISCHARGE Reason for Admission: SBO Consultations: General Surgery - Dr. Wynne Brief History of Present Illness: 57-year-old female with history of multiple abdominal surgeries, insulin- dependent type 2 diabetes, gastroparesis, autoimmune hepatitis, and cirrhosis who presented to the ED with complaints of abdominal pain, nausea, vomiting, constipation for 2 days. Patient states that she has not had a bowel movement or passed any gas in 2 days. Vital signs stable upon arrival to the ER. She had several episodes of vomiting initially but have now resolved. CT showed small bowel obstruction to the level of the terminal ileum were there is evidence for stricture or scarring. No free air, extravasation of bowel content or other surgically emergent finding. Abdomen is firm and moderately distended with faint bowel sounds. She was started on IV antibiotics and is admitted for further management. Hospital Course: Problem List Small bowel obstruction Autoimmune hepatitis Cirrhosis Gastroparesis Insulin-dependent diabetes mellitus type 2 Hypothyroidism History of DVT Patient presented with small bowel obstruction. General Surgery - Dr. Wynne was consulted. She had gradual improvement with medical management - bowel rest and IV fluids. She began to have bowel movements, improvement of pain, and diet was advanced. Recommended to continue with liquid/soft food for next few days, transitioning to a low fiber diet. Blood pressure remained in lower end of normal range. As her diet continues to improve, recommend holding her home lasix/spironolactone. Check blood pressures daily at home. Likely will be able to restart in a few days, once systolic blood pressure is higher / or when follows up with PCP. No changes in medications Follow up with PCP within 1 week Follow up with General surgery in a few weeks Physical exam GEN: Alert, oriented, NAD HEENT: Normal conjunctiva, sclera anicteric CV: Regular rate and rhythm, no edema Pulm: Nonlabored respirations on room air ABD: Soft, non tender, non distended Vital Signs/Physical Exam: Temp Pulse Resp BP Pulse Ox 97.2 F 76 14 113/56 L 97 06/10/22 08:00 06/10/22 08:00 06/10/22 08:00 06/10/22 08:00 06/10/22 08:00 Laboratory Data at Discharge: WBC 4.20 K/uL (4.3-10.9) L D 06/10/22 03:05 Hgb 12.3 g/dL (12.0-15.0) 06/10/22 03:05 Hct 36.3 % (36.0-45.0) 06/10/22 03:05 Plt Count 92 K/uL (152-406) L 06/10/22 03:05 PT 13.9 SECONDS (9.5-12.5) H 06/05/22 15:15 INR 1.26 06/05/22 15:15 APTT 33.8 SECONDS (24.3-36.9) 06/05/22 15:15 Sodium 140 mmol/L (136-145) 06/09/22 02:45 Potassium 3.9 mmol/L (3.5-5.1) 06/09/22 02:45 BUN 6 mg/dL (7-18) L 06/09/22 02:45 Creatinine 0.62 mg/dL (0.55-1.3) 06/09/22 02:45 Glucose 151 mg/dL (74-106) H 06/09/22 02:45 Phosphorus 3.1 mg/dL (2.5-4.9) 06/06/22 05:22 Magnesium 1.9 mg/dL (1.8-2.4) 06/08/22 02:56 Total Bilirubin 2.0 mg/dL (0.2-1.0) H 06/05/22 15:15 AST 29 U/L (15-37) 06/05/22 15:15 ALT 32 U/L (12-78) 06/05/22 15:15 Alkaline Phosphatase 108 U/L (45-117) 06/05/22 15:15 Lipase 125 U/L (73-393) 06/05/22 15:15 Home Medications: Apixaban [Eliquis *] 2.5 mg PO BID 01/08/21 Atorvastatin Calcium [Lipitor*] 40 mg PO DAILY 01/08/21 Cholecalciferol (Vitamin D3) [Vitamin D 1000 Iu Tab*] 4,000 unit PO DAILY 30 Days #120 tab 01/08/21 Dicyclomine [Bentyl*] 10 mg PO BID PRN 01/08/21 Escitalopram [Lexapro*] 20 mg PO BEDTIME 01/08/21 Ferrous Sulfate [Ferrous Sulfate*] 325 mg PO DAILY 01/08/21 Furosemide [Lasix*] 20 mg PO DAILY 01/08/21 Insulin Detemir [Levemir] 70 units SQ DAILY 01/08/21 Levothyroxine [Synthroid*] 0.125 mg PO DAILY 01/08/21 Omeprazole [Prilosec] 40 mg PO DAILY 01/08/21 Rifaximin [Xifaxan] 550 mg PO BID 01/08/21 Spironolactone [Aldactone*] 50 mg PO DAILY 01/08/21 Tramadol HCl [Ultram] 50 mg PO Q6H PRN 01/08/21 Zinc Sulfate [Zinc Sulfate*] 220 mg PO DAILY 30 Days #30 cap 01/08/21 carvediloL [Carvedilol] 6.25 mg PO BID 01/08/21 ursodioL [Cinda Forte] 500 mg PO BID 01/08/21 Promethazine Tab [Phenergan*] 12.5 mg PO Q6HP PRN 06/06/22 Trazodone [Desyrel*] 50 mg PO BID PRN 06/06/22 Physician Discharge Instructions: Patient presented with small bowel obstruction. General Surgery - Dr. Wynne was consulted. She had gradual improvement with medical management - bowel rest and IV fluids. She began to have bowel movements, improvement of pain, and diet was advanced. Recommended to continue with liquid/soft food for next few days, transitioning to a low fiber diet. Blood pressure remained in lower end of normal range. As her diet continues to improve, recommend holding her home lasix/spironolactone. Check blood pressures daily at home. Likely will be able to restart in a few days, once systolic blood pressure is higher / or when follows up with PCP. No changes in medications Follow up with PCP within 1 week Follow up with General surgery in a few weeks Followup: Raza Wynne MD [ACTIVE - CAN ADMIT] - (Call to schedule appoointment) Time spent managing pt's care (in minutes): 40
== END 2022-06-10 11:21 | disposition home or self-care (01) | DRG 389 ==
LOC: ER 14:09 → ERHOLD 19:36 → 4TH 20:25
PROVIDERS: ADMIT Internal Medicine; ATTEND Hospitalist
DX: K56.609 Unspecified intestinal obstruction, unspecified as to partial versus complete obstruction (principal); Z68.41 Body mass index [BMI] 40.0-44.9, adult; E66.9 Obesity, unspecified; K74.60 Unspecified cirrhosis of liver; E11.65 Type 2 diabetes mellitus with hyperglycemia; E11.649 Type 2 diabetes mellitus with hypoglycemia without coma; E11.43 Type 2 diabetes mellitus with diabetic autonomic (poly)neuropathy; K31.84 Gastroparesis; K59.00 Constipation, unspecified; E03.9 Hypothyroidism, unspecified; K75.4 Autoimmune hepatitis; Z88.1 Allergy status to other antibiotic agents; Z88.5 Allergy status to narcotic agent; Z88.8 Allergy status to other drugs, medicaments and biological substances; Z79.01 Long term (current) use of anticoagulants; Z79.4 Long term (current) use of insulin; Z79.890 Hormone replacement therapy; Z79.899 Other long term (current) drug therapy; Z86.718 Personal history of other venous thrombosis and embolism; Z86.711 Personal history of pulmonary embolism; Z79.82 Long term (current) use of aspirin; Z79.52 Long term (current) use of systemic steroids; Z87.891 Personal history of nicotine dependence; Z20.822 Contact with and (suspected) exposure to COVID-19
CPT/HCPCS: 36415; 71045; 74176; 74177; 80048; 80076; 81001; 82947; 83036; 83690; 83735; 84100; 85025; 85027; 85610; 85730; 87086; 87088; 87811; 93005; 96374; 96375; 97161; 99284; J0744; J1650; J2405; J2550; J3480; J7030; J7042; Q9967

== ENCOUNTER 2023-03-29 23:07 | Emergency (ER) | payer OTHER ==
[2023-03-29] MEDS ORDERED: MORPHINE 4 MG/ML SYR ONE (23:38)
[2023-03-29 23:39] LABS: Hematocrit 42.8 % (36.0-45.0); Lymphocytes % 13.2 % (15.3-44.8); MCV 82.6 fL (80-100); MPV 9.6 fL (7.6-11.3); RBC Red Blood Cell Count 5.18 M/uL (3.86-4.86)
[2023-03-29 23:41] LABS: Protime INR 1.19
[2023-03-29 23:59] LABS: Potassium 3.9 mEq/L (3.5-5.1); Troponin High Sensitivity 5.6 pg/mL (<58.9)
[2023-03-30] MEDS ORDERED: MORPHINE 4 MG/ML SYR ONE (00:09)
[2023-03-30] MEDS ORDERED: NA CHLORIDE 0.9% 500 ML ONE (01:09)
[2023-03-30] MEDS ORDERED: KETOROLAC 30 MG/ML INJ ONE (01:36)
[2023-03-30] MEDS ORDERED: CYCLOBENZAPRINE 10 MG TAB ONE (01:36)
--- NOTE | 2023-03-30 01:51 | EDPHYS ---
Physician Documentation [facility] Name: Leslie Thacker Age: 58 yrs Sex: Female : 1965 Arrival Date: 03/29/2023 Time: 23:07 Bed 13 Private MD: ED Physician Aakash Mcnally HPI: 03/29 23:20 This 58 yrs old Female presents to ER via Unassigned with complaints of Chest Pain. rn 23:20 The patient or guardian reports chest pain that is located primarily in the anterior rn chest wall, left. Onset: today. The pain radiates to Associated signs and symptoms: Pertinent positives: None. Pertinent negatives: abdominal pain, cough, diaphoresis, near syncope, syncope, vomiting. The chest pain is described as sharp, stabbing. Duration: The patient or guardian reports multiple episodes, that are intermittent. Modifying factors: The symptoms are alleviated by nothing. the symptoms are aggravated by nothing. Severity of pain: At its worst the pain was moderate in the emergency department the pain is unchanged. The patient has not experienced similar symptoms in the past. The patient has been recently seen by a physician:. Pt reports chest pain, left sided, radiates to back, had reclast infusion earlier today. Now having sharp stabbing chest pain, no cough, no fever, no trauma. No abd issues today. Reports hx of dvt and PE, takes eliquis and has vena cava filter. . Historical: - Allergies: 23:26 Dilaudid; as6 23:26 Doxycycline; as6 23:26 hydromorphone; as6 23:26 Keflex; as6 - PMHx: 23:26 autoimmune hepatitis; IBSD; DM; Pulmonary Embolism; stage 4 cirrhosis; DVT; Colitis; as6 - PSHx: 23:26 abdominal; as6 - Immunization history:: Client reports receiving the 1st dose of the Covid vaccine, [employer] [facility]. - Social history:: Smoking status: Patient denies any tobacco usage or history of. - Family history:: not pertinent. - Hospitalizations: : No recent hospitalization is reported. ROS: 23:20 Constitutional: Negative for fever, chills, and weight loss, Cardiovascular: Negative rn for palpitations, and edema, Respiratory: Negative for shortness of breath, cough, wheezing Abdomen/GI: Negative for abdominal pain, nausea, vomiting, diarrhea, and constipation, MS/Extremity: Negative for injury and deformity, Skin: Negative for injury, rash, and discoloration, Neuro: Negative for headache, weakness, numbness, tingling, and seizure. Exam: 23:20 Constitutional: This is a well developed, well nourished patient who is awake, alert, rn appears uncomfortable Head/Face: Normocephalic, atraumatic. Cardiovascular: Tachycardic, regular. No pulse deficits. Respiratory: Mild tachypnea, no wheezing Abdomen/GI: soft, non-tender Skin: Warm, dry MS/ Extremity: Pulses equal, no cyanosis. Neuro: Awake and alert, GCS 15 23:26 ECG was reviewed by the Attending Physician. rn Vital Signs: 23:23 BP 158 / 111; Pulse 104; Resp 20 S; Temp 98.8(TE); Pulse Ox 96% on R/A; Weight 117.48 as6 kg (R); Height 5 ft. 6 in. (R); Pain 10/10; 03/30 00:06 BP 123 / 72; Pulse 103; Resp 16; Pulse Ox 96% ; jb4 00:50 BP 111 / 83; Pulse 99; Resp 18; Pulse Ox 93% on R/A; jb4 03/29 23:23 Body Mass Index 41.80 (117.48 kg, 167.64 cm) as6 03/29 23:23 Pain Scale: Adult as6 MDM: 03/29 23:13 Patient medically screened. rn 03/30 01:02 Differential diagnosis: acute myocardial infarction, acute pericarditis, anxiety, rn coronary artery disease costochondritis, esophagitis, gastritis, pleurisy, pneumothorax, pulmonary embolus, thoracic aortic disection. Data reviewed: vital signs, nurses notes, lab test result(s), EKG, radiologic studies, CT scan, and as a result, I will admit patient. Counseling: I had a detailed discussion with the patient and/or guardian regarding: the historical points, exam findings, and any diagnostic results supporting the discharge/admit diagnosis, the presence of at least one elevated blood pressure reading (>120/80) during this emergency department visit, lab results, radiology results. 01:48 Response to treatment: the patient's symptoms have markedly improved after treatment, rn and as a result, I will discharge patient. ED course: Pt feels better, trop neg, CT PE without acute findings, will dc home with return precautions. No new PE identified on study and patient compliant with eliquis and has IVC filter. . 03/29 23:19 Order name: Basic Metabolic Panel; Complete Time: 00:01 rn 03/29 23:19 Order name: CBC with Diff; Complete Time: 23:58 rn 03/29 23:19 Order name: NT PRO-BNP; Complete Time: 00:01 rn 03/29 23:19 Order name: PT-INR; Complete Time: 23:58 rn 03/29 23:19 Order name: Troponin HS; Complete Time: 00:01 rn 03/29 23:19 Order name: XRAY Chest (1 view) rn 03/29 23:19 Order name: CT Chest For PE Angio rn 03/29 23:19 Order name: EKG; Complete Time: 23:20 rn 03/29 23:19 Order name: Cardiac monitoring; Complete Time: 23:22 rn 03/29 23:19 Order name: EKG - Nurse/Tech; Complete Time: 23:22 rn 03/29 23:19 Order name: IV Saline Lock; Complete Time: 23:28 rn 03/29 23:19 Order name: Labs collected and sent; Complete Time: 23:28 rn 03/29 23:19 Order name: O2 Per Protocol; Complete Time: 23:22 rn 03/29 23:19 Order name: O2 Sat Monitoring; Complete Time: 23:22 rn EC/19 23:26 Rate is 110 beats/min. Rhythm is regular. Right axis deviation noted. QRS is positive rn in lead aVF and negative in lead I. QT interval is normal. No Q waves. T waves are Normal. No ST changes noted. Clinical impression: Sinus tachycardia. Interpreted by me. Reviewed by me. Administered Medications: 23:35 Drug: morphine IVP or IV 4 mg Route: IVP; Infused Over: 4 mins; Site: right antecubital;jb4 03/30 00:06 Drug: morphine IVP or IV 4 mg Route: IVP; Infused Over: 4 mins; Site: right antecubital;jb4 01:08 Drug: NS 0.9% IV 500 ml Route: IV; Rate: bolus; Site: right antecubital; jb4 01:30 Drug: Ketorolac IVP 15 mg Route: IVP; Site: right antecubital; jb4 01:31 Drug: Cyclobenzaprine PO 10 mg Route: PO; jb4 Disposition Summary: 03/30/23 01:50 Discharge Ordered Location: Home rn Problem: new rn Symptoms: have improved rn Condition: Stable rn Diagnosis - Chest pain, unspecified rn - Unspecified cirrhosis of liver rn Followup: rn - With: Private Physician - When: As needed - Reason: Recheck today's complaints, Re-evaluation by your physician Discharge Instructions: - Discharge Summary Sheet rn - Nonspecific Chest Pain, Adult rn Forms: - Medication Reconciliation Form rn - Thank You Letter rn - Antibiotic 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
--- NOTE | 2023-03-30 01:51 | ER ---
Nurse's Notes [facility] Name: Leslie Thacker Age: 58 yrs Sex: Female : 1965 Arrival Date: 03/29/2023 Time: 23:07 Bed 13 Private MD: Diagnosis: Chest pain, unspecified;Unspecified cirrhosis of liver Presentation: 03/29 23:25 Chief complaint: Patient states: chest pain that started tonight, pain is raiding to as6 back. Coronavirus screen: At this time, the client does not indicate any symptoms associated with coronavirus-19. Ebola Screen: No symptoms or risks identified at this time. Initial Sepsis Screen: Does the patient meet any 2 criteria? No. Patient's initial sepsis screen is negative. Does the patient have a suspected source of infection? No. Patient's initial sepsis screen is negative. Risk Assessment: Do you want to hurt yourself or someone else? Patient reports no desire to harm self or others. Onset of symptoms was March 29, 2023. 23:25 Acuity: BRADEN 3 as6 23:25 Method Of Arrival: Wheelchair as6 Triage Assessment: 23:23 General: Appears uncomfortable, Behavior is cooperative, restless. Pain: Complains of as6 pain in chest Quality of pain is described as sharp, shooting, stabbing, Noted to be moaning. Cardiovascular: Reports chest pain. Historical: - Allergies: 23:26 Dilaudid; as6 23:26 Doxycycline; as6 23:26 hydromorphone; as6 23:26 Keflex; as6 - PMHx: 23:26 autoimmune hepatitis; IBSD; DM; Pulmonary Embolism; stage 4 cirrhosis; DVT; Colitis; as6 - PSHx: 23:26 abdominal; as6 - Immunization history:: Client reports receiving the 1st dose of the Covid vaccine, [employer]. - Social history:: Smoking status: Patient denies any tobacco usage or history of. - Family history:: not pertinent. - Hospitalizations: : No recent hospitalization is reported. Screenin:35 [place] ED Fall Risk Assessment (Adult) History of falling in the last 3 months, jb4 including since admission No falls in past 3 months (0 pts) Confusion or Disorientation Yes (5 pts) Score/Fall Risk Level 0 - 2 = Low Risk Oriented to surroundings, Maintained a safe environment. Abuse screen: Denies threats or abuse. Nutritional screening: No deficits noted. Tuberculosis screening: No symptoms or risk factors identified. Assessment: 23:35 General: Appears in no apparent distress. uncomfortable, Behavior is appropriate for jb4 age, anxious, crying. Pain: Complains of pain in chest Pain does not radiate. Pain currently is 10 out of 10 on a pain scale. Quality of pain is described as stabbing, Pain began 2 hours ago. Neuro: Level of Consciousness is awake, alert, obeys commands, Oriented to person, place, time, situation. Cardiovascular: Patient's skin is warm and dry. Rhythm is sinus tachycardia. Respiratory: Airway is patent Respiratory effort is even, unlabored, Respiratory pattern is regular, symmetrical. GI: No signs and/or symptoms were reported involving the gastrointestinal system. : No signs and/or symptoms were reported regarding the genitourinary system. EENT: No signs and/or symptoms were reported regarding the EENT system. Derm: Skin is intact, Skin is pink, warm \T\ dry. Musculoskeletal: Circulation, motion, and sensation intact. Range of motion: intact in all extremities. 03/30 01:07 Reassessment: Patient appears in no apparent distress at this time. Patient and/or jb4 family updated on plan of care and expected duration. Pain level reassessed. Patient is alert, oriented x 3, equal unlabored respirations, skin warm/dry/pink. Patient states feeling better. Vital Signs: 03/29 23:23 BP 158 / 111; Pulse 104; Resp 20 S; Temp 98.8(TE); Pulse Ox 96% on R/A; Weight 117.48 as6 kg (R); Height 5 ft. 6 in. (R); Pain 10/10; 03/30 00:06 BP 123 / 72; Pulse 103; Resp 16; Pulse Ox 96% ; jb4 00:50 BP 111 / 83; Pulse 99; Resp 18; Pulse Ox 93% on R/A; jb4 03/29 23:23 Body Mass Index 41.80 (117.48 kg, 167.64 cm) as6 03/29 23:23 Pain Scale: Adult as6 ED Course: 03/29 23:10 Patient arrived in ED. jj6 23:13 Aakash Mcnally MD is Attending Physician. rn 23:22 Initial lab(s) drawn, by wi, sent to lab. Inserted saline lock: 18 gauge in right jb4 antecubital area, using aseptic technique. Blood collected. Patient maintains SpO2 saturation greater than 95% on room air. 23:23 Arm band placed on. as6 23:26 Triage completed. as6 23:28 Guillermo Hawkins, RN is Primary Nurse. jb4 23:28 Troponin HS Sent. jb4 23:28 PT-INR Sent. jb4 23:28 NT PRO-BNP Sent. jb4 23:28 CBC with Diff Sent. jb4 23:28 Basic Metabolic Panel Sent. jb4 23:34 XRAY Chest (1 view) In Process Unspecified. EDMS 23:35 Patient has correct armband on for positive identification. Bed in low position. Call jb4 light in reach. Side rails up X 1. Client placed on continuous cardiac and pulse oximetry monitoring. NIBP monitoring applied. surveillance monitor on. 03/30 00:30 CT Chest For PE Angio In Process Unspecified. EDMS 01:58 No provider procedures requiring assistance completed. IV discontinued, intact, jb4 bleeding controlled, No redness/swelling at site. Pressure dressing applied. Administered Medications: 03/29 23:35 Drug: morphine IVP or IV 4 mg Route: IVP; Infused Over: 4 mins; Site: right antecubital;jb4 03/30 00:06 Drug: morphine IVP or IV 4 mg Route: IVP; Infused Over: 4 mins; Site: right antecubital;jb4 01:08 Drug: NS 0.9% IV 500 ml Route: IV; Rate: bolus; Site: right antecubital; jb4 01:30 Drug: Ketorolac IVP 15 mg Route: IVP; Site: right antecubital; jb4 01:31 Drug: Cyclobenzaprine PO 10 mg Route: PO; jb4 Medication: 03/29 23:35 VIS not applicable for this client. jb4 Outcome: 03/30 01:50 Discharge ordered by . rn 01:58 Discharged to home via wheelchair, with family. jb4 01:58 Condition: stable 01:58 Discharge instructions given to patient, Instructed on discharge instructions, follow up and referral plans. Demonstrated understanding of instructions, follow-up care. 01:59 Patient left the ED. jb4 Signatures: Dispatcher [employer] EDMS Aakash Mcnally MD MD rn Ross, Guillermo, RN RN jb4 Jessica Jeanj6 Michael Briseno RN RN as6
[2023-03-30 02:13] VITALS: TEMP 98.8
[2023-03-30 02:24] VITALS: BP 111/83; O2SAT 93
--- NOTE | 2023-03-30 14:18 | RAD REPORT ---
EXAM DESCRIPTION: CT - Chest For Pe Angio - 03/30/2023 6:25 am CLINICAL HISTORY: CHEST PAIN TECHNIQUE: Contiguous axial images obtained through the chest during angiographic phase following th e uneventful administration of IV contrast. Sagittal and coronal reformatted images were provided. 3- D MIP reformatted images were provided. This exam was performed according to our departmental dose-optimization program, which includes autom ated exposure control, adjustment of the mA and/or kV according to patient size and/or use of iterati ve reconstruction technique. COMPARISON: No prior exams provided for comparison. FINDINGS: Diagnostic quality: Suboptimal opacification of the pulmonary arterial tree Lungs: No focal consolidation. Airways are patent. Pleura: No effusion. No pneumothorax. Heart and pericardium: The heart is normal in size. No pericardial effusion. Mediastinum and philippe: No pathologically enlarged lymph nodes. Lower neck and chest wall: Unremarkable Vessels: No evidence is seen of large central pulmonary emboli. Significant segmental and subsegmental pulmonary emboli cannot be reliably excluded based on this exa mination. Recommend follow-up when clinically feasible. No thoracic aortic aneurysm. Upper abdomen: Hepatomegaly with lobulated hepatic contour, consistent with cirrhosis. Bones: Unremarkable IMPRESSION: 1. Suboptimal opacification of the pulmonary arterial tree.. No evidence is seen of la rge central pulmonary emboli. Significant segmental and subsegmental pulmonary emboli cannot be relia alonso excluded based on this examination. Recommend follow-up when clinically feasible. 2. No evidence of airspace consolidation or pleural effusion 3. Hepatomegaly with lobulated hepatic contour, consistent with cirrhosis. Electronically signed by: Chao Raymond MD 03/30/2023 12:58 AM CDT Due to temporary technical issues with the PACS/Fluency reporting system, reports are being signed by the in house radiologists without review as a courtesy to insure prompt reporting. The interpreting radiologist is fully responsible for the content of the report.
--- NOTE | 2023-03-30 15:57 | RAD REPORT ---
EXAM DESCRIPTION: RAD - Chest Single View - 03/29/2023 11:33 pm XR Chest, 1 View CLINICAL HISTORY: The patient is 58 years old and is Female; CHEST PAIN [facility] MAIN TECHNIQUE: Frontal view of the chest. COMPARISON: No relevant prior studies available. FINDINGS: LUNGS: Grossly unremarkable. No consolidation. PLEURAL SPACE: No pleural effusion. No pneumothorax. HEART: See below. MEDIASTINUM: Prominence of the cardiomediastinal silhouette, likely exaggerated secondary to portab le technique, lordotic positioning, and patient body habitus. BONES/JOINTS: Grossly unremarkable. UPPER ABDOMEN: Right hemidiaphragm elevation, of uncertain chronicity. IMPRESSION: No acute findings in the chest. Electronically signed by: Kenn Delgado MD 03/30/2023 12:04 AM CDT Due to temporary technical issues with the PACS/Fluency reporting system, reports are being signed by the in house radiologists without review as a courtesy to insure prompt reporting. The interpreting radiologist is fully responsible for the content of the report.
--- NOTE | 2023-03-31 19:13 | EKG ---
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
== END 2023-03-30 01:59 | disposition home or self-care (01) ==
LOC: ER 23:07
DX: R07.89 Other chest pain (principal); K74.60 Unspecified cirrhosis of liver; Z88.1 Allergy status to other antibiotic agents; Z88.5 Allergy status to narcotic agent; Z88.8 Allergy status to other drugs, medicaments and biological substances
CPT/HCPCS: 93005; 85025; 80048; 36415; 85610; 84484; 83880; 71275; 71045; Q9967; J7040

== ENCOUNTER 2024-11-03 14:05 | Emergency (ER) | payer OTHER ==
[2024-11-03 14:55] LABS: Absolute Lymphocytes (CBC) 0.7 K/uL (0.7-4.9); Absolute Monocytes 0.2 K/uL (0.1-1.3); Absolute Neutrophil 5.5 K/uL (1.8-8.0); Basophils % 0.1 % (0-1.3); Hematocrit 37.3 % (36.0-45.0); Hemoglobin 12.8 g/dL (12.0-15.0); Lymphocytes % 11.3 % (15.3-44.8); MCH 27.8 pg (27.0-35.0); MCHC 34.4 g/dL (32.0-36.0); MCV 80.9 fL (80-100); MPV 10.2 fL (7.6-11.3); Monocytes % 3.5 % (3.3-12.3); Neutrophils % 85.1 % (41.7-73.7); Nucleated Red Blood Cells % 0.1 % (0-0); Platelets 78 thou/uL (152-406); RBC Red Blood Cell Count 4.61 M/uL (3.86-4.86); Red Cell Distribution Width 15.9 % (12.1-15.2)
[2024-11-03 15:06] LABS: Anion Gap 10.7 mEq/L (5.0-15.0); Potassium 3.7 mEq/L (3.5-5.1); Troponin High Sensitivity 3.3 pg/mL (<58.9)
--- NOTE | 2024-11-03 15:11 | RAD REPORT ---
Procedure: Chest Single View HISTORY: Chest pain COMPARISON: 2022 FINDINGS: The lungs appear clear of acute infiltrate. No significant pleural effusion noted. The heart is normal size. Prominence of the mediastinum represents mediastinal fat. IMPRESSION: No acute abnormality is displayed.
--- NOTE | 2024-11-03 16:22 | RAD REPORT ---
EXAMINATION: CTA CHEST PE CLINICAL INDICATION: Shortness of breath TECHNIQUE: 100 cc 370 Isovue administered intravenously. This examination was performed according to an angiographic protocol with 3D post-processing. This involves 3D reconstructions, MIPs, volume rendered images and/or shaded surface rendering. One or more of the following dose reduction techniqu es were used: Automated exposure control, adjustment of the mA and/or kV according to patient size, and/or iterative reconstruction. Unless otherwise specified, incidental findings do not require dedic ated imaging follow-up. [id number]. COMPARISON: 2022 FINDINGS: Mildly suboptimal opacification pulmonary arteries. A pulmonary embolus is not seen. An aortic aneurysm not noted. No pleural effusion. No pericardial effusion. Lungs are clear. Cirrhotic liver with splenomegaly IMPRESSION: No evidence of a pulmonary embolism
[2024-11-03 16:43] LABS: Blood Morphology Comment NOT SEEN (NOT SEEN); Platelet Estimate DECR; White Blood Cell Scan OK (OK)
--- NOTE | 2024-11-03 16:57 | EDPHYS ---
Physician Documentation [facility] Name: Leslie Thacker Age: 59 yrs Sex: Female : 1965 Arrival Date: 11/03/2024 Time: 14:05 Bed 17 Private MD: ED Physician Onel Stern HPI: 11/03 16:50 This 59 yrs old Female presents to ER via Ambulatory with complaints of Chest Pain, bo1 Shortness Of Breath. 16:50 The patient or guardian reports chest pain that is located primarily in the anterior bo1 chest wall, Central chest. Onset: today, Pt has had sxs in past with dx of PE. Recent injection (in the right knee) with steroids guided by ultrasound yesterday. The pain does not radiate. Associated signs and symptoms: Pertinent positives: cough, shortness of breath. Pt above is recent intraarticular steroid injection. 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 - Infectious Disease History:: Denies. - Social history:: Smoking status: Patient/guardian denies using tobacco. ROS: 16:52 Constitutional: Negative for fever, chills, and weight loss bo1 16:52 Neck: Negative for pain with movement, pain at rest, 16:52 Cardiovascular: Positive for chest pain, with cough, Negative for palpitations, 16:52 Respiratory: Positive for shortness of breath, "Not worse than normal.", 16:52 Abdomen/GI: Negative for abdominal pain, 16:52 MS/extremity: Negative for acute changes, Positive for baseline swelling, 16:52 Skin: Negative for lesions, rash, 16:52 All other systems are negative, Exam: 16:53 Constitutional: This is a well developed, well nourished patient who is awake, alert, bo1 and in no acute distress. 16:53 Constitutional: The patient appears in no acute distress, alert, awake, comfortable, non-toxic, obese, 16:53 Eyes: Sclera: icterus, is not appreciated, 16:53 Neck: External neck: is normal, Short, 16:53 Cardiovascular: Rate: normal, Rhythm: regular, Pulses: no pulse deficits are appreciated, 16:53 ECG was reviewed by the Attending Physician. 16:53 Respiratory: the patient does not display signs of respiratory distress, Respirations: normal, Breath sounds: are clear throughout, 16:53 Abdomen/GI: Palpation: abdomen is soft and non-tender, organomegaly is appreciated, hepatomegaly, splenomegaly, 16:53 Musculoskeletal/extremity: DVT Exam: no pain, no tenderness, 16:53 Skin: no rash present. 16:56 Neuro: Orientation: is normal, appropriate for stated age, Mentation: is normal, bo1 appropriate for stated age, Vital Signs: 14:12 BP 134 / 60; Pulse 73; Resp 18 S; Temp 97.9(O); Pulse Ox 96% on R/A; Weight 118.39 kg aa5 (R); Height 5 ft. 6 in. (R); Pain 8/10; 16:00 BP 119 / 53; Pulse 70; Resp 18 S; Pulse Ox 96% on R/A; aa5 17:00 BP 119 / 48; Pulse 70; Resp 16 S; Pulse Ox 97% on R/A; aa5 14:12 Body Mass Index 42.13 (118.39 kg, 167.64 cm) aa5 14:12 Pain Scale: Adult aa5 MDM: 14:38 Medical Screening Exam initiated bo1 16:48 Differential diagnosis: pulmonary embolus, Other non-specific pulmonary causes. Data bo1 reviewed: vital signs, lab test result(s), radiologic studies, CT scan. ED course: Pt is stable and will F/U as OP. With lowering platelets pt will see PCP for trending studies and consider a splenectomy or to see a heme onc MD. 11/03 14:33 Order name: Basic Metabolic Panel; Complete Time: 15:15 aa5 11/03 14:33 Order name: CBC with Diff; Complete Time: 16:48 aa5 11/03 14:33 Order name: Troponin HS; Complete Time: 15:15 aa5 11/03 16:44 Order name: CBC Smear Scan; Complete Time: 16:48 EDRI 11/03 14:33 Order name: XRAY Chest (1 view); Complete Time: 15:15 11/03 15:16 Order name: CT Chest For PE Angio; Complete Time: 16:28 bo11/03 14:33 Order name: Cardiac monitoring; Complete Time: 14:34 11/03 14:33 Order name: EKG - Nurse/Tech; Complete Time: 14:34 11/03 14:33 Order name: IV Saline Lock; Complete Time: 14:34 11/03 14:33 Order name: Labs collected and sent; Complete Time: 14:34 11/03 14:33 Order name: O2 Per Protocol; Complete Time: 14:34 11/03 14:33 Order name: O2 Sat Monitoring; Complete Time: 14:34 EC:53 Rate is 73 beats/min. Rhythm is regular. QRS [place] is Normal. MA interval is normal. QRS bo1 interval is normal. QT interval is normal. No Q waves. T waves are Normal. No ST changes noted. Clinical impression: Normal ECG. Interpreted by me. Reviewed by me. Administered Medications: No medications were administered Disposition Summary: 11/03/24 16:57 Discharge Ordered Notes: Location: Home bo1 Problem: chronic bo1 Symptoms: are unchanged bo1 Condition: Stable bo1 Diagnosis - Cough bo1 - Dyspnea, unspecified bo1 Followup: bo1 - With: Private Physician - When: Upon discharge from the Emergency Department - Reason: Recheck today's complaints, Continuance of care Discharge Instructions: - Discharge Summary Sheet bo1 - Shortness of Breath, Adult, [id number] bo1 - Cough, Adult bo1 Forms: - Medication Reconciliation Form bo1 - Antibiotic Education bo1 - Prescription Opioid Use bo1 - Patient Portal Instructions bo1 - Leadership Thank You Letter bo1 Prescriptions: - Tessalon Perles 100 mg Oral capsule - take 1 capsule ORAL route every 8 hours As needed; 30 capsule; Refills: 0, bo1 Product Selection Permitted Signatures: Dispatcher [employer] Rhonda Trinidad RN RN aa5 OeiOnel MD MD bo1
--- NOTE | 2024-11-03 16:57 | ER ---
Nurse's Notes [facility] Name: Leslie Thacker Age: 59 yrs Sex: Female : 1965 Arrival Date: 11/03/2024 Time: 14:05 Bed 17 Private MD: Diagnosis: Cough;Dyspnea, unspecified Presentation: 11/03 14:12 Onset of symptoms. aa5 14:12 Acuity: BRADEN 2 aa5 14:12 Chief complaint: Patient states: chest pain with inspiration and SOB that began today aa5 around 0300. 14:12 Coronavirus screen: shortness of breath. Ebola Screen: Patient denies travel to an aa5 Ebola-affected area in the 21 days before illness onset. Initial Sepsis Screen: Does the patient meet any 2 criteria? No. Patient's initial sepsis screen is negative. Does the patient have a suspected source of infection? No. Patient's initial sepsis screen is negative. Risk Assessment: Do you want to hurt yourself or someone else? Patient reports no desire to harm self or others. 14:12 Method Of Arrival: Ambulatory aa5 Historical: - Allergies: 14:33 Dilaudid; aa5 14:33 Doxycycline; aa5 14:33 hydromorphone; aa5 14:33 Keflex; aa5 14:44 Reclast; aa5 - PMHx: 14:33 autoimmune hepatitis; Colitis; DM; DVT; IBSD; Pulmonary Embolism; stage 4 cirrhosis; aa5 PALMER; - PSHx: 14:33 abdominal; aa5 - Immunization history:: Adult Immunizations unknown. - Infectious Disease History:: Denies. - Social history:: Smoking status: Patient/guardian denies using tobacco. Screenin:30 [facility] ED Fall Risk Assessment (Adult) History of falling in the last 3 months, aa5 including since admission No falls in past 3 months (0 pts) Confusion or Disorientation No (0 pts) Intoxicated or Sedated No (0 pts) Impaired Gait No (0 pts) Mobility Assist Device Used No (0 pt) Altered Elimination No (0 pt) Score/Fall Risk Level 0 - 2 = Low Risk Oriented to surroundings, Maintained a safe environment, Educated pt \\T\\ family on fall prevention, incl call for assistance when getting out of bed. Abuse screen: Denies threats or abuse. Nutritional screening: No deficits noted. Tuberculosis screening: No symptoms or risk factors identified. Assessment: 14:12 General: Appears comfortable, Behavior is calm, cooperative. Pain: Complains of pain in aa5 mid-sternal area Pain does not radiate. Pain currently is 8 out of 10 on a pain scale. Pain began today Aggravated by inspiration. Neuro: Level of Consciousness is awake, alert, obeys commands, Oriented to person, place, time, situation. Cardiovascular: Heart tones S1 S2 present Patient's skin is warm and dry. Left lower extremity swelling noted, pt reports hx of DVT, states "that leg stays swollen all the time" Rhythm is regular. Respiratory: Reports shortness of breath slight cough, denies feeling ill. Airway is patent Respiratory effort is even, unlabored, Respiratory pattern is regular, symmetrical. GI: Abdomen is obese. : No signs and/or symptoms were reported regarding the genitourinary system. EENT: No signs and/or symptoms were reported regarding the EENT system. Derm: Skin is pink, warm \\T\\ dry. Musculoskeletal: Range of motion: intact in all extremities. 15:32 Reassessment: Pt to CT . aa5 15:32 Reassessment: Patient is alert, oriented x 3, equal unlabored respirations, skin aa5 warm/dry/pink. 17:13 Reassessment: Patient is alert, oriented x 3, equal unlabored respirations, skin aa5 warm/dry/pink. Vital Signs: 14:12 BP 134 / 60; Pulse 73; Resp 18 S; Temp 97.9(O); Pulse Ox 96% on R/A; Weight 118.39 kg aa5 (R); Height 5 ft. 6 in. (R); Pain 8/10; 16:00 BP 119 / 53; Pulse 70; Resp 18 S; Pulse Ox 96% on R/A; aa5 17:00 BP 119 / 48; Pulse 70; Resp 16 S; Pulse Ox 97% on R/A; aa5 14:12 Body Mass Index 42.13 (118.39 kg, 167.64 cm) aa5 14:12 Pain Scale: Adult aa5 ED Course: 14:10 Patient arrived in ED. im 14:11 Onel Stern MD is Attending Physician. bo1 14:12 Arm band placed on. aa5 14:12 Patient has correct armband on for positive identification. Placed in gown. Bed in low aa5 position. Call light in reach. Side rails up X2. Client placed on continuous cardiac and pulse oximetry monitoring. NIBP monitoring applied. fall internship on. Pulse ox on. NIBP on. 14:32 Rhonda Evans, RN is Primary Nurse. aa5 14:34 Initial lab(s) drawn, by pr, sent to lab. Inserted saline lock: 22 gauge in left aa5 forearm, using aseptic technique. Blood collected. Flushed with 10 mL NS. 14:35 Triage completed. aa5 14:48 XRAY Chest (1 view) In Process Unspecified. EDMS 15:52 CT Chest For PE Angio In Process Unspecified. EDMS 17:13 No provider procedures requiring assistance completed. IV discontinued, intact, aa5 bleeding controlled, No redness/swelling at site. Pressure dressing applied. Administered Medications: No medications were administered Medication: 15:32 VIS not applicable for this client. aa5 Outcome: 16:57 Discharge ordered by . bo1 17:13 Discharged to home ambulatory, with family, aa5 17:13 Condition: stable 17:13 Discharge instructions given to patient, Instructed on discharge instructions, follow up and referral plans. medication usage, Demonstrated understanding of instructions, follow-up care, medications, Prescriptions given X 1, 17:15 Patient left the ED. aa5 Signatures: Dispatcher [employer] [facility] Rhonda Evans, MARV RN aa5 Alem Pina Benjamin, MD MD bo1 Corrections: (The following items were deleted from the chart) 14:44 14:12 BP 134 / 60; Pulse 73bpm; Resp 18bpm; Spontaneous; Pulse Ox 96% RA; Temp 97.9F aa5 Oral; aa5
[2024-11-03 19:22] VITALS: TEMP 97.9
[2024-11-03 19:25] VITALS: BP 119/48; O2SAT 97
== END 2024-11-03 17:15 | disposition home or self-care (01) ==
LOC: ER 14:05
DX: R05.9 Cough, unspecified (principal); R06.00 Dyspnea, unspecified; R07.89 Other chest pain
CPT/HCPCS: 85025; 80048; 36415; 84484; 71275; 71045; 99284; Q9967

== ENCOUNTER 2024-12-04 12:08 | Emergency (ER) | payer OTHER ==
[2024-12-04 13:20] LABS: Influenza A Ag Negative; Influenza B Ag Negative; SARS-CoV-2 Antigen Rapid Res Negative (Negative)
[2024-12-04] MEDS ORDERED: CEFTRIAXONE 1000 MG/VIAL ONE (13:36)
[2024-12-04] MEDS ORDERED: ONDANSETRON 4 MG/2 ML VIAL ONE (13:36)
[2024-12-04] MEDS ORDERED: NA CHLORIDE 0.9% 1,000 ML ONE (13:37)
[2024-12-04] MEDS ORDERED: NA CHLORIDE 0.9% 50 ML ONE (13:37)
[2024-12-04 13:54] LABS: Absolute Basophils 0.1 K/uL (0-0.5); Absolute Eosinophils 0.2 K/uL (0-0.5); Absolute Lymphocytes (CBC) 1.1 K/uL (0.7-4.9); Absolute Monocytes 0.6 K/uL (0.1-1.3); Absolute Neutrophil 4.9 K/uL (1.8-8.0); Basophils % 0.9 % (0-1.3); Eosinophils % 2.7 % (0-4.4); Hematocrit 38.3 % (36.0-45.0); Hemoglobin 12.9 g/dL (12.0-15.0); Lymphocytes % 16.4 % (15.3-44.8); MCH 27.5 pg (27.0-35.0); MCHC 33.7 g/dL (32.0-36.0); MCV 81.5 fL (80-100); MPV 9.8 fL (7.6-11.3); Monocytes % 8.5 % (3.3-12.3); Neutrophils % 71.5 % (41.7-73.7); Nucleated Red Blood Cells % 0.1 % (0-0); Platelets 104 thou/uL (152-406)
[2024-12-04 14:09] LABS: Anion Gap 9.9 mEq/L (5.0-15.0); Potassium 3.9 mEq/L (3.5-5.1)
[2024-12-04 14:10] LABS: PT Prothrombin Time 15.2 SECONDS (10.0-13.0); PTT, Activated Partial Thromb 33.3 SECONDS (24.3-36.9); Protime INR 1.35
--- NOTE | 2024-12-04 14:23 | RAD REPORT ---
EXAM: Chest Single View HISTORY: COUGH COMPARISON: 11/03/2024 FINDINGS: LUNGS/PLEURA: The lungs are clear. No pleural effusions or pneumothorax. No pulmonary edema. MEDIASTINUM: The mediastinal silhouette is within normal limits. CARDIAC: Stable size and configuration. UPPER ABDOMEN: No significant abnormality. BONES: No acute abnormality. LINES/TUBES/OTHER: N/A IMPRESSION: No evidence of acute cardiopulmonary disease.
--- NOTE | 2024-12-04 14:39 | ER ---
Nurse's Notes [facility] Name: Leslie Thacker Age: 59 yrs Sex: Female : 1965 Arrival Date: 12/04/2024 Time: 12:08 Bed 7 Private MD: out of town, doctor Diagnosis: Viral infection, unspecified Presentation: 12/04 12:31 Chief complaint: Patient states: cough, SOB, and intermittent nose bleeds x 1-2 weeks aa5 ago. Coronavirus screen: cough unrelated to allergies. Ebola Screen: Patient denies travel to an Ebola-affected area in the 21 days before illness onset. Initial Sepsis Screen: Does the patient meet any 2 criteria? RR > 20 per min. HR > 90 bpm. Does the patient have a suspected source of infection? No. Patient's initial sepsis screen is negative. Risk Assessment: Do you want to hurt yourself or someone else? Patient reports no desire to harm self or others. Onset of symptoms was November 2024. 12:31 Method Of Arrival: Ambulatory aa5 12:31 Acuity: BRADEN 3 aa5 Triage Assessment: 14:50 General: Appears uncomfortable. Respiratory: Onset: The symptoms/episode began/occurred ll1 5 days, the patient has mild shortness of breath. Historical: - Allergies: 12:32 Dilaudid; aa5 12:32 Doxycycline; aa5 12:32 hydromorphone; aa5 12:32 Keflex; aa5 12:32 Reclast; aa5 - PMHx: 12:32 autoimmune hepatitis; Colitis; DM; DVT; Pulmonary Embolism; stage 4 cirrhosis; PALMER; aa5 IBS (Unknown); - PSHx: 12:32 abdominal; aa5 - Immunization history:: Adult Immunizations unknown. - Infectious Disease History:: Denies. - Social history:: Smoking status: Patient denies any tobacco usage or history of. Screenin:[address] [facility] ED Fall Risk Assessment (Adult) History of falling in the last 3 months, ll1 including since admission No falls in past 3 months (0 pts) Confusion or Disorientation No (0 pts) Intoxicated or Sedated No (0 pts) Impaired Gait No (0 pts) Mobility Assist Device Used No (0 pt) Altered Elimination No (0 pt) Score/Fall Risk Level 0 - 2 = Low Risk Maintained a safe environment, Hourly rounding (assess needs \T\ fall precautionary measures) done. Abuse screen: Denies threats or abuse. Nutritional screening: No deficits noted. Tuberculosis screening: No symptoms or risk factors identified. Assessment: 13:23 General: Appears uncomfortable, Behavior is calm, cooperative, appropriate for age. ll1 Respiratory: Reports shortness of breath since 2 weeks cough that is pain with cough. EENT: Reports intermittent nose bleeds. 14:10 Reassessment: No changes from previously documented assessment. Patient and/or family ll1 updated on plan of care and expected duration. Pain level reassessed. Patient is alert, oriented x 3, equal unlabored respirations, skin warm/dry/pink. 14:11 Cardiovascular: Rhythm is regular. Respiratory: Reports Airway is patent Trachea ll1 midline Respiratory effort is even, unlabored. 14:50 Reassessment: No changes from previously documented assessment. Patient and/or family ll1 updated on plan of care and expected duration. Pain level reassessed. Patient is alert, oriented x 3, equal unlabored respirations, skin warm/dry/pink. 14:50 Respiratory: Breath sounds are clear bilaterally. ll1 Vital Signs: 12:31 BP 138 / 71; Pulse 111; Resp 24 S; Temp 98.2(TE); Pulse Ox 95% on R/A; Weight 117.03 kg aa5 (R); Height 5 ft. 6 in. (R); 13:54 Pulse 83; Resp 20; Pulse Ox 99% on R/A; ll1 14:10 BP 111 / 85; Pulse 72; Resp 20; Pulse Ox 98% on R/A; ll1 14:50 Pulse 71; Resp 19; Pulse Ox 96% on R/A; Pain 0/10; ll1 12:31 Body Mass Index 41.64 (117.03 kg, 167.64 cm) aa5 14:50 Pain Scale: Adult ll1 ED Course: 12:09 Patient arrived in ED. as 12:11 out of town, doctor is Private Physician. as 12:21 Trip Coy MD is Attending Physician. ec2 12:31 Arm band placed on. aa5 12:32 Triage completed. aa5 12:59 COVID-19 Ag + Flu A+B Ag Sent. bc6 13:19 González Watson, MARV is Primary Nurse. ll1 13:19 Patient placed in an exam room, on a stretcher. ll1 13:24 Patient has correct armband on for positive identification. Bed in low position. ll1 Provided Education on: ER procedures and process. Client placed on continuous cardiac and pulse oximetry monitoring. NIBP monitoring applied. 13:35 Initial lab(s) drawn, by me, sent to lab. First set of blood cultures drawn. Inserted aa5 saline lock: 22 gauge in left antecubital area, using aseptic technique. Blood collected. Flushed with 10 mL NS. 13:50 Second set of blood cultures drawn. ll1 14:14 CXR XRAY In Process Unspecified. EDMS 14:50 No provider procedures requiring assistance completed. IV discontinued, intact, ll1 bleeding controlled, No redness/swelling at site. Pressure dressing applied. Administered Medications: 13:42 Drug: Ondansetron IVP 4 mg IVP once; over 2 minutes Route: IVP; Site: left antecubital; ss 14:51 Follow up: Response: No adverse reaction; Nausea is decreased ll1 13:45 Drug: NS 0.9% IV 1000 ml IV at 1000 ml once; to be given as a bolus over 60 minutes ss Route: IV; Rate: 1000 ml; Site: left antecubital; 14:51 Follow up: Response: No adverse reaction; IV Status: Order to discontinue infusion; IV ll1 Intake: 250ml 13:54 Drug: Rocephin IV 1 grams IV at calculated rate once; Given slow IV push per pharmacy ll1 instructions Route: IV; Rate: calculated rate; Site: left antecubital; 14:51 Follow up: Response: No adverse reaction; IV Status: Completed infusion; IV Intake: [id number] Medication: 13:24 VIS not applicable for this client. ll1 Intake: 14:51 IV: 50ml; Total: 50ml. ll1 14:51 IV: 250ml; Total: 300ml. ll1 Outcome: 14:38 Discharge ordered by . ec2 14:50 Discharged to home ambulatory, ll1 14:50 Condition: stable 14:50 Discharge instructions given to patient, Instructed on discharge instructions, follow up and referral plans. medication usage, Demonstrated understanding of instructions, follow-up care, medications, Prescriptions given X 1, 14:51 Patient left the ED. ll1 Signatures: Dispatcher [employer] Kamille Ocampoderon, Rhonda, MARV RN aa5 Dorcas Tenorio RN RN ss González Watson RN RN ll1 Annette Burch 6 Trip Coy MD MD ec2 Corrections: (The following items were deleted from the chart) 12:33 12:32 PMHx: IBSD; aa5 aa5
--- NOTE | 2024-12-04 14:40 | EDPHYS ---
Physician Documentation [facility] Name: Leslie Thacker Age: 59 yrs Sex: Female : 1965 Arrival Date: 12/04/2024 Time: 12:08 Bed 7 Private MD: out of town, doctor ED Physician Trip Coy HPI: 12/04 13:36 This 59 yrs old Female presents to ER via Ambulatory with complaints of ec2 Cough, Shortness Of Breath, Nose Bleed. 13:36 Patient arrives today for evaluation of cough and congestion as well as shortness of ec2 breath. Similar to the symptoms, have been persistent. Reports that she is on Tessalon Perles with minimal improvement in symptoms.. Historical: - Allergies: 12:32 Dilaudid; aa5 12:32 Doxycycline; aa5 12:32 hydromorphone; aa5 12:32 Keflex; aa5 12:32 Reclast; aa5 - PMHx: 12:32 autoimmune hepatitis; Colitis; DM; DVT; Pulmonary Embolism; stage 4 cirrhosis; PALMER; aa5 IBS (Unknown); - PSHx: 12:32 abdominal; aa5 - Immunization history:: Adult Immunizations unknown. - Infectious Disease History:: Denies. - Social history:: Smoking status: Patient denies any tobacco usage or history of. ROS: 13:36 Constitutional: as per hpi ec2 Exam: 13:36 Constitutional: GEN: NAD Head: atraumatic Eyes: EOMI Ears: External ears are ec2 normal. CV: Tachycardia LUNGS: Tachypnea, no focal lung sounds ABD: non-distended SKIN: no evidence of rashes MSK: no evidence of trauma Vital Signs: 12:31 BP 138 / 71; Pulse 111; Resp 24 S; Temp 98.2(TE); Pulse Ox 95% on R/A; Weight 117.03 kg aa5 (R); Height 5 ft. 6 in. (R); 13:54 Pulse 83; Resp 20; Pulse Ox 99% on R/A; ll1 14:10 BP 111 / 85; Pulse 72; Resp 20; Pulse Ox 98% on R/A; ll1 14:50 Pulse 71; Resp 19; Pulse Ox 96% on R/A; Pain 0/10; ll1 12:31 Body Mass Index 41.64 (117.03 kg, 167.64 cm) aa5 14:50 Pain Scale: Adult ll1 MDM: 12:35 Medical Screening Exam initiated ec2 13:37 Data reviewed: vital signs, nurses notes. ED course: Arrives today with cough and cold ec2 symptoms. Examination revealing for slight tachycardia, slight tachypnea with no focal lung sounds. Will obtain lab work, chest x-ray, viral swabs.. 14:09 ED course: EKG independently reviewed and interpreted by me, shows normal sinus rhythm, ec2 rate of 75, no acute ST segment elevations, intervals are nonactionable.. 14:38 ED course: Chest x-ray shows no acute intrathoracic process. On reassessment patient is ec2 well-appearing no acute distress. Will discharge home. Return precautions given.. 02 12:35 Order name: COVID-19 Ag + Flu A+B Ag; Complete Time: 13:25 ec2 12/04 13:26 Order name: CBC with Diff; Complete Time: 14:19 ec2 12/04 13:26 Order name: BMP; Complete Time: 14:19 ec2 12/04 13:26 Order name: Blood Culture Adult (2) ec2 12/04 13:26 Order name: Lactate w/ 2H reflex if indic.; Complete Time: 14:19 ec2 12/04 13:26 Order name: Protime (+inr); Complete Time: 14:19 ec2 12/04 13:26 Order name: Ptt, Activated; Complete Time: 14:19 ec2 12/04 12:35 Order name: CXR XRAY; Complete Time: 14:37 ec2 12/04 13:26 Order name: EKG; Complete Time: 13:26 ec2 12/04 13:26 Order name: IV; Complete Time: 13:41 ec2 12/04 13:26 Order name: Accucheck; Complete Time: 14:10 ec2 12/04 13:26 Order name: Cardiac monitoring; Complete Time: 14:10 ec12/04 13:26 Order name: EKG - Nurse/Tech; Complete Time: 14:10 ec12/04 13:26 Order name: IV Saline Lock - Large Bore; Complete Time: 13:41 ec12/04 13:26 Order name: Labs collected and sent; Complete Time: 13:41 ec2 12/04 13:26 Order name: O2 Per Protocol; Complete Time: 13:41 ec2 12/04 13:26 Order name: O2 Sat Monitoring; Complete Time: 13: ec2 12/04 13:26 Order name: Vital Signs; Complete Time: 13:50 ec2 Administered Medications: 13:42 Drug: Ondansetron IVP 4 mg IVP once; over 2 minutes Route: IVP; Site: left antecubital; ss 14:51 Follow up: Response: No adverse reaction; Nausea is decreased ll1 13:45 Drug: NS 0.9% IV 1000 ml IV at 1000 ml once; to be given as a bolus over 60 minutes ss Route: IV; Rate: 1000 ml; Site: left antecubital; 14:51 Follow up: Response: No adverse reaction; IV Status: Order to discontinue infusion; IV ll1 Intake: 250ml 13:54 Drug: Rocephin IV 1 grams IV at calculated rate once; Given slow IV push per pharmacy ll1 instructions Route: IV; Rate: calculated rate; Site: left antecubital; 14:51 Follow up: Response: No adverse reaction; IV Status: Completed infusion; IV Intake: [id number] Disposition Summary: 12/04/24 14:38 Discharge Ordered Notes: Location: Home ec2 Condition: Stable ec2 Diagnosis - Viral infection, unspecified ec2 Followup: ec2 - With: Private Physician - When: - Reason: Recheck today's complaints Discharge Instructions: - Discharge Summary Sheet ec2 - Viral Illness, Adult ec2 Forms: - Medication Reconciliation Form ec2 - Antibiotic Education ec2 - Prescription Opioid Use ec2 - Patient Portal Instructions ec2 - Leadership Thank You Letter ec2 Prescriptions: - codeine-guaifenesin 10-100 mg/5 mL Oral liquid - take 10 milliliter ORAL route every 4 to 6 hours as needed for cough; 100 ec2 milliliter; Refills: 0, Product Selection Permitted Signatures: Dispatcher [employer] Rhonda Trinidad RN RN aa5 Dorcas Tenorio RN RN ss Lewis, Lynsay, RN RN ll1 Trip Coy MD MD ec2 Corrections: (The following items were deleted from the chart) 12:33 12:32 PMHx: IBSD; leticia aa5 12:35 12:35 Chest Single View+RAD.[email or web address] ordered. EDMS EDMS
[2024-12-04 15:13] VITALS: TEMP 98.2
[2024-12-04 15:16] VITALS: BP 111/85
[2024-12-04 15:18] VITALS: O2SAT 96
== END 2024-12-04 14:51 | disposition home or self-care (01) ==
LOC: ER 12:08
DX: B34.9 Viral infection, unspecified (principal); Z11.52 Encounter for screening for COVID-19
CPT/HCPCS: 96365; 93005; 87040 ×2; 85025; 80048; 36415; 85610; 83605; 85730; 71045; 96375; 99284; 87428; J2405; J7030; J0696